=== PATIENT | male | born 1950 | race Caucasian/White ===

== ENCOUNTER 2019-05-22 05:33 | Inpatient (IN) ==
--- NOTE | 2019-04-27 13:26 | PAT Medication Instructions ---
Medication Instructions Date of Service April 27, 2019 Home Medications alprazolam 0.5 mg PO HS furosemide [Lasix] 40 mg PO QAM glimepiride 4 mg PO BID lisinopril 40 mg PO QAM lovastatin 20 mg PO QPM metoprolol succinate 100 mg PO QAM omeprazole 40 mg PO QAM potassium chloride 10 meq PO QAM sitagliptin [Januvia] 100 mg PO QAM umeclidinium-vilanterol [Anoro Ellipta] 1 inh INHALATION QAM amlodipine 5 mg PO QAM verapamil 240 mg PO QAM DO NOT take the morning of surgery furosemide [Lasix] 40 mg PO QAM glimepiride 4 mg PO BID lisinopril 40 mg PO QAM potassium chloride 10 meq PO QAM sitagliptin [Januvia] 100 mg PO QAM Take morning of surgery With a small sip of water, OTHERWISE NOTHING TO EAT OR DRINK AFTER MIDNIGHT: metoprolol succinate 100 mg PO QAM omeprazole 40 mg PO QAM umeclidinium-vilanterol [Anoro Ellipta] 1 inh INHALATION QAM amlodipine 5 mg PO QAM verapamil 240 mg PO QAM Take evening before surgery alprazolam 0.5 mg PO HS glimepiride 4 mg PO BID lovastatin 20 mg PO QPM Other Notes If you have any questions please call us at [phone] or [phone] or [phone] or [phone]
--- NOTE | 2019-05-01 08:35 | Anesthesiology Consultation ---
Date of Service May 01, 2019 Assessment & Plan (1) Encounter for pre-operative examination: - Awaiting surgeon-ordered PCP clearance scheduled 05/03 (Dr. Henry). - Awaiting DSE (scheduled 05/17; [facility]). - Recent hospitalization: 01/2019 ([facility]): presented with generalized weakness. Found to have HR in the 30's in setting of ARNOLDO and acute hyperkalemia. EKG noted junctional escape rhythm. Initially required SC pacing and dobutamine. EP consulted/felt 2/2 hyperkalemia. All symptoms resolved with resolution of hyperkalemia. Kidney function improving per discharge summary (patient with known prior hx CKD). ARNOLDO ? related to hypotension. Tested positive for lyme disease- started on doxy. - Cardiology: 05/03/19: "Feeling well from a cardiovascular perspective." BP 15 . "Moderate perioperative cardiovascular risk.. DSE will be performed for further risk stratification prior to orthopedic surgery. In regards to patient's uncontrolled BP, recommend compliance with hydralazine at least 3 times daily" and limiting sodium intake. T/C carvedilol if BP remains elevated. - Check BSG AM DOS Chart Review Chart Review: Patient seen in Pre Admission Testing Teaching & Discussion Pre-Anesthesia Teaching/Discussion Notes: Instructed NPO after midnight before surgery,except medications with 15 cc of water. Medication instructions provided according to the PAT guidelines. History Surgery Operation Date: 04/12/19 07:00 Proposed Procedures p Left Total Knee Arthroplasty - Lars Feng MD Operation Date: 05/22/19 09:25 Proposed Procedures p Right Total Knee Arthroplasty - Yvon Sullivan DO Height/Weight Height: 5 ft 8 in Weight: 115.5 kg Allergies Allergy/AdvReac Type Severity Reaction Status Date / Time lisinopril AdvReac ARNOLDO, Verified 05/01/19 09:34 hyperkalemia, ARF Medications Home Medications Medication Instructions Recorded Confirmed Last Taken alprazolam 0.5 mg PO HS 11/28/18 04/27/19 Unknown furosemide [Lasix] 40 mg PO QAM 11/28/18 04/27/19 Unknown glimepiride 4 mg PO BID 11/28/18 04/27/19 Unknown lovastatin 20 mg PO QPM 11/28/18 04/27/19 Unknown metoprolol succinate 100 mg PO HS 11/28/18 04/27/19 Unknown omeprazole 40 mg PO QAM 11/28/18 04/27/19 Unknown sitagliptin [Januvia] 100 mg PO QAM 11/28/18 04/27/19 Unknown amlodipine 10 mg PO QAM 11/30/18 04/27/19 Unknown hydralazine 25 mg PO BID 04/27/19 04/27/19 Unknown losartan 50 mg PO QPM 04/27/19 04/27/19 Unknown Past Medical History Medical History CKD (chronic kidney disease) Diabetes mellitus, type 2 NIDDM GERD (gastroesophageal reflux disease) controlled Hyperlipidemia Hypertension Insomnia Obesity Restless leg syndrome Sleep apnea CPAP Exercise / Class Metabolic Activity III < 4 Walking/Shop/Light housework Past Family History Family History Mother Family history of diabetes mellitus Past Surgical History Surgical History History of cataract surgery RT/LEFT History of colonoscopy History of discectomy LUMBAR History of tooth extraction Hx of vasectomy Past Anesthesia History No Hx of Anesthesia Complications and No Family Hx of Anesthesia Complications History of PONV No Hx of PONV and No Hx of Motion Sickness Social History Smoking Status: Former smoker tobacco type: cigarettes Do You Dip or Chew Tobacco: Yes (1/2 - 1/3 can/day- advised NPO) Smoking End Date: Quit 25 years ago Hx Alcohol Use: Yes Alcohol type: beer alcohol intake frequency: a few times a week Hx Substance Use: No substance use type: does not use Review of Systems Reflux controlled. Patient denies chest pain, shortness of breath, cough, wheezing, palpitations. Physical Exam Vital Signs VITALS BP 168/95 (159/77 when checked at home this morning, 05/01 per patient) P 72 TEMP 98.1 SP02 96%RA RESP 16 PHYSICAL Full neck and c-spine range of motion. Full TMJ range of motion. TMD 3.5 finger breaths Mallampati Score 2 Dentition: full dentures on upper, partial dentures on lower Lungs: clear throughout to auscultation Cardiac: regular rate and rhythm, no murmurs noted Spine: normal Carotid arteries: negative bruit Extremities: no edema Trimmed jeffrey Testing Laboratory Results 05/01/19 08:52 05/01/19 08:52 PT 10.3 Seconds (9.0-12.0) 05/01/19 08:52 INR 1.0 (0.9-1.1) 05/01/19 08:52 APTT 28.1 Seconds (21.0-31.0) 05/01/19 08:52 Hemoglobin A1c 6.3 % (4.5-5.6) H 05/01/19 08:52 Urine Color Yellow 05/01/19 08:52 Urine Appearance Clear (Clear) 05/01/19 08:52 Urine pH 6.5 (4.5-7.5) 05/01/19 08:52 Ur Specific Sharon 1.010 (1.000-1.030) 05/01/19 08:52 Urine Protein Trace (Negative) H 05/01/19 08:52 Urine Glucose (UA) Negative (Negative) 05/01/19 08:52 Urine Ketones Negative (Negative) 05/01/19 08:52 Urine Nitrite Negative (Negative) 05/01/19 08:52 Ur Leukocyte Esterase Negative (Negative) 05/01/19 08:52 Urine WBC (Auto) 0 /hpf (0-5) 05/01/19 08:52 Urine RBC (Auto) 0-4 /hpf (0-4) 05/01/19 08:52 U Hyaline Cast (Auto) 1-5 /lpf (0-5) 05/01/19 08:52 U Epithel Cells (Auto) 0-5 /lpf (0-5) 05/01/19 08:52 Urine Bacteria (Auto) Negative (Negative) 05/01/19 08:52 Blood Type O Positive 05/01/19 08:52 Antibody Screen NEGATIVE 05/01/19 08:52 Electrocardiogram Date: 02/17/19 Findings: + NSR @ (75) Chest X-Ray Date: 11/29/18 The heart is top normal for projection and there is atherosclerotic calcification of the thoracic aorta. The mediastinal contour is within normal limits. There are calcification containing hilar nodes. Tiny calcified granulomas are observed. No airspace consolidation or pleural effusion is identified. Echocardiogram Date: 02/15/19 Limited exam. No pericardial effusion seen.
[2019-05-01 11:16] LABS: Appearance Urine Clear (Clear); Bacteria Urine Automated Negative (Negative); Bilirubin Urine Negative (Negative); Blood Urine Negative (Negative); Color Urine Yellow; Epithelial Cell Urine Auto 0-5 /lpf (0-5); Glucose Urine UA Negative (Negative); Ketones Urine Negative (Negative); Leukocyte Esterase Urine Negative (Negative); Nitrite Urine Negative (Negative); Protein Urine Trace (Negative); RBC Urine Automated 0-4 /hpf (0-4); Urobilinogen Urine Negative (Negative); WBC Urine Automated 0 /hpf (0-5); pH Urine 6.5 (4.5-7.5)
[2019-05-01 11:19] LABS: Albumin Level 3.9 gm/dl (3.4-5.0); BUN Creatinine Ratio 14.7 (10-20); Calcium 9.1 mg/dl (8.5-10.1); Creatinine Clr Calc Pharmacy 57.4 ml/min; Est GFR (African American) 53.3; Potassium 4.2 mmol/L (3.5-5.1)
[2019-05-01 11:28] LABS: Partial Thromboplastin Time 28.1 Seconds (21.0-31.0); Prothrombin Time 10.3 Seconds (9.0-12.0)
[2019-05-01 11:32] LABS: Estimated Average Glucose 134 mg/dl; Hemoglobin A1C 6.3 % (4.5-5.6)
[2019-05-01 11:36] LABS: Basophils # (auto) 0.05 K/uL (0-0.2); Basophils % (auto) 0.7 %; Eosinophils # (auto) 0.23 K/uL (0-0.5); Eosinophils % (auto) 3.1 %; Hemoglobin 15.9 g/dL (14.0-18.0); Immature Granulocytes # (auto) 0.02 K/uL (0.00-0.02); Immature Granulocytes % (auto) 0.3 %; Lymphocytes # (auto) 1.13 K/uL (1.2-3.4); Mean Corpuscular Hgb Conc 33.8 g/dL (32-36); Mean Corpuscular Volume 94.6 fL (80-100); Mean Platelet Volume 13.4 fL (7.4-10.4); Monocytes # (auto) 0.66 K/uL (0.11-0.59); Monocytes % (auto) 8.8 %; Neutrophils # (auto) 5.45 K/uL (1.4-6.5); Neutrophils % (auto) 72.1 %; Platelet Count 128 K/uL (130-400); Platelet Estimate Decreased (Normal); RDW Coefficient of Variation 14.3 % (11.5-14.5); RDW Standard Deviation 48.6 fL (36.4-46.3); Red Blood Count 4.97 M/uL (4.7-6.1); White Blood Count 7.54 K/uL (4.8-10.8)
--- NOTE | 2019-05-21 16:42 | History & Physical Report ---
Date of Service May 21, 2019 Assessment & Plan (1) Degenerative joint disease of knee, right: I have indicated the patient for right total knee replacement. The risks, benefits and complications of surgery were explained to the patient which include but not limited to infection, acute blood loss, DVT/PE, injury to nerves, vessels, bone, soft tissue, arthrofibrosis, chronic pain, failure of the prosthesis, knee dislocation, leg length discrepancy, need for additional surgery, cardiac and pulmonary events and . The patient wished to proceed with surgery and informed consent was obtained at this time. We will plan for 81mg ASA BID post-operatively for DVT prophylaxis. Upon discharge the patient will be discharged home with home health services. Appropriate clearances by PCP, cardio were obtained. Patient has known DM and slight bump in Cr pre- operative labs, will monitor, keep well hydrated, repeat labs during the hopsital stay and avoid excessive nephrotoxic medications. History of Present Illness Chief Complaint: Right knee pain/djd Primary Care Provider: Mary Ellen Cotton MD The patient is a 69 year old male who presents with complaints of severe right knee pain and DJD. The patient has failed outpatient conservative treatments to this point which included NSAIDs, IA corticosteroid inj, home exercise/walking program. The patient's pain and limited function have progressed to the point where they severely hinder their activities of daily living and they no longer tolerate exercise programs. They are requesting to proceed with total knee replacement surgery. Allergies Allergy/AdvReac Type Severity Reaction Status Date / Time lisinopril AdvReac ARNOLDO, Verified 05/22/19 06:20 hyperkalemia, ARF Home Medications Home Medications Medication Instructions Recorded Confirmed Type alprazolam 0.5 mg PO HS 11/28/18 05/22/19 History furosemide [Lasix] 40 mg PO QAM 11/28/18 05/22/19 History glimepiride 4 mg PO BID 11/28/18 05/22/19 History lovastatin 20 mg PO QPM 11/28/18 05/22/19 History metoprolol succinate 100 mg PO HS 11/28/18 05/22/19 History omeprazole 40 mg PO QAM 11/28/18 05/22/19 History amlodipine 10 mg PO QAM 11/30/18 05/22/19 History hydralazine 50 mg PO TID 04/27/19 05/22/19 History losartan 50 mg PO QPM 04/27/19 05/22/19 History Januvia 100 mg PO DAILY 05/22/19 05/22/19 History Past Med/Surg History Medical History CKD (chronic kidney disease) Diabetes mellitus, type 2 NIDDM GERD (gastroesophageal reflux disease) controlled Hyperlipidemia Hypertension Insomnia Obesity Restless leg syndrome Sleep apnea CPAP Surgical History History of cataract surgery RT/LEFT History of colonoscopy History of discectomy LUMBAR History of tooth extraction Hx of vasectomy Family History Mother Family history of diabetes mellitus Social History Preferred Language: Serbian Communication Ability: Effective 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: No Beliefs That Will Affect Care: None Current Living Situation: Spouse Other Information That Helps Us Care for You: No Feels Safe at Home: Yes Safety Concerns: Feels Safe At This Time Smoking Status: Former smoker Tobacco Type: cigarettes ; Do You Dip or Chew Tobacco: Yes (1/2 - 1/3 can/day- advised NPO) ; Smoking End Date: Quit 25 years ago ; Second Hand Exposure: No ; Tobacco Cessation Education Requested by Patient: No Hx Alcohol Use: Yes Alcohol type: beer Hx Substance Use: No Review of Systems Review of Systems: All systems reviewed & are unremarkable except as noted in HPI & below Constitutional: as per Subjective / HPI Physical Exam Physical Exam: RLE NVSI +EHL/FHL/TA/GS SILT grossly, +2 DP pulse, compartments soft NT, limited painful ROM knee, 0-115 degrees flexion, +crepitus. Constitutional: WD/WN, vitals as above Eyes: PERRL, conjunctivae normal, anicteric sclerae ENMT: external ear and nose normal, oropharynx normal Neck: trachea midline, no thyromegaly Respiratory: normal respiratory effort, lungs clear to auscultation Cardiovascular: RRR, no murmur, no edema Gastrointestinal (Abdomen): normal bowel sounds, soft, nontender, no hepatosplenomegaly Musculoskeletal: no cyanosis or clubbing, extremities motor strength 5/5 Skin: no rashes, warm and dry Neurologic: patellar DTR's 2+ bilat, sensation intact Psychiatric: A+Ox3, euthymic affect Lymphatic: no cervical or axillary lymphadenopathy Results & Data Diagnostic Findings Multiple views of the knee demonstrates severe tricompartmental DJD with complete loss of the medial joint space. +osteophytes, +sclerosis, +subchondral cysts.
[2019-05-22] MEDS ORDERED: GABAPENTIN 300 MG CAP PO SCH (06:00)
[2019-05-22] MEDS ORDERED: dexAMETHasone 4 MG TAB PO SCH (06:00)
[2019-05-22] MEDS ORDERED: ROPIVACAINE 0.5% HCL/PF 150 MG, BUPIVACAINE 0.5% MPF 30 ML, EPINEPHrine 30MG/30ML (OR U... INFIL SCH (06:00)
[2019-05-22] MEDS ORDERED: FAMOTIDINE 20 MG TAB PO SCH (06:00)
[2019-05-22] MEDS ORDERED: LR 500ML BOLUS, THEN 15ML/HR IV SCH (06:00)
[2019-05-22] MEDS ORDERED: CeleBREX 200 MG CAP PO SCH (06:00)
[2019-05-22] MEDS ORDERED: CEFAZOLIN 2000MG 2,000 MG/15 ML SYR IV SCH (06:00)
[2019-05-22] MEDS ORDERED: ACETAMINOPHEN 500 MG TAB PO SCH (06:00)
[2019-05-22] MEDS ORDERED: METOCLOPRAMIDE HCL 10 MG TABLET PO SCH (06:00)
[2019-05-22] MEDS ORDERED: TRANEXAMIC ACID 1,000 MG **IV Pre-op IV SCH (06:00)
[2019-05-22] MEDS ORDERED: ROPIVACAINE 0.5% 5 MG/ML 30 ML VIAL ONE (06:27)
[2019-05-22] MEDS ORDERED: BUPIVACAINE 0.5 % 5 MG/1 ML PF 10ML VIAL ONE (06:27)
[2019-05-22] MEDS ORDERED: TRANEXAMIC ACID 1,000 MG **IV Intra-op IV SCH (06:30)
--- NOTE | 2019-05-22 07:08 | History & Physical Bridge Note ---
Date of Service May 22, 2019 History & Physical Bridge Note I have examined the patient, reviewed the History & Physical and in the interval since the performance of the History & Physical I have noted the following changes of clinical significance: no changes noted
[2019-05-22] MEDS ORDERED: fentaNYL citrate 100 MCG/2 ML VIAL ONE (08:07)
[2019-05-22] MEDS ORDERED: DEXAMETHASONE SOD INJ 4 MG/ML VIAL ONE (08:07)
[2019-05-22] MEDS ORDERED: MIDAZOLAM HCL 1 MG/ML 2ML VIAL ONE (08:07)
[2019-05-22] MEDS ORDERED: ONDANSETRON INJ 2 MG/ML 2 ML VIAL ONE (08:07)
[2019-05-22] MEDS ORDERED: PROPOFOL IV EMULSION 10 MG/ML 20 ML VIAL IV ONE ×2 (08:07→10:46)
[2019-05-22] MEDS ORDERED: LIDOCAINE HCL 2% 2 ML VIAL/AMP(20MG/ML) INFIL ONE (08:07)
[2019-05-22] MEDS ORDERED: BACITRACIN INJ 50,000 UNIT VIAL ONE (08:11)
[2019-05-22] MEDS ORDERED: ORTHO JOINT ANESTHETIC ONE (08:11)
[2019-05-22] MEDS ORDERED: ePHEDrine sulfate 50 MG/ML AMP IV PRN (08:50)
[2019-05-22] MEDS ORDERED: ATROPINE SULFATE 0.1 MG/ML 10ML SYR IV PRN (08:50)
[2019-05-22] MEDS ORDERED: HYDROmorphone INJ 1 MG/ML SYRINGE IV PRN (08:50)
[2019-05-22] MEDS ORDERED: KETAMINE HCL INJ 50 MG/ML 10 ML VIAL ONE (10:36)
--- NOTE | 2019-05-22 11:09 | Post Operative Brief Note ---
Immediate Post Op Note v1 Date of Surgery May 22, 2019 Pre & Post Diagnosis Operation Date: 04/12/19 07:00 <No data on this case meets the specified criteria> Operation Date: 05/22/19 09:25 Pre-Op Diagnosis: Right Knee Primary Osteoarthritis Post-Op Diagnosis: Right Knee Primary Osteoarthritis Procedure Operation Date: 04/12/19 07:00 <No data on this case meets the specified criteria> Operation Date: 05/22/19 09:25 Actual Procedures p Right Total Knee Arthroplasty(Right) - Yvon Sullivan DO Surgeon Yvon Sullivan DO Gelatin Powder Mixer Yon Farr Estimated Blood Loss 50 Findings Consistent with Post-Op Diagnosis Fluids 1700 cc LR Specimens proximal tibia, distal femur bone fragments Drains Hemovac Drain Anesthesia Type Spinal MAC Complications none Disposition Disposition: Recovery Room Overlapping Procedure I was present for: the critical portions of procedure. I was immediately available: during the entire case. Back up surgeon: was not required during procedure.
--- NOTE | 2019-05-22 11:25 | Operative Report ---
Post Operative Report Pre & Post Diagnosis Operation Date: 04/12/19 07:00 <No data on this case meets the specified criteria> Operation Date: 05/22/19 09:25 Pre-Op Diagnosis: Right Knee Primary Osteoarthritis Post-Op Diagnosis: Right Knee Primary Osteoarthritis Procedure Operation Date: 04/12/19 07:00 <No data on this case meets the specified criteria> Operation Date: 05/22/19 09:25 Actual Procedures p Right Total Knee Arthroplasty(Right) - Yvon Sullivan DO Surgeon Yvon Sullivan DO Esol Teacher Yon Farr Estimated Blood Loss 50 Findings Consistent with Post-Op Diagnosis Fluids 1700 cc LR Specimens Proximal tibia and distal femur bone fragments Anesthesia Type Spinal MAC Complications none Disposition Disposition: Recovery Room Indications The patient is a 69-year-old male presents with long history of severe right knee tricompartmental DJD and failed outpatient conservative treatments including NSAIDs, bracing, injections and home walking/exercise program. The patient's symptoms have progressed to the point where it has been difficult to perform normal activities of daily living. I have indicated the patient for a right total knee arthroplasty, the risks and benefits and complications of the procedure include but are not limited to infection bleeding damage to bone, nerves, vessels, surrounding soft tissue, blood clots, loss of function, leg length discrepancy, dislocation, failure of the components, need for additional surgery and . The patient wished to proceed with surgery at this time and informed consent was obtained. Appropriate clearances were obtained. Description of Procedure COMPONENTS USED: Gauri persona knee system: Femur size 9 standard, Tibia size F tibial articulating surface 10 PS, Patella 35 mm Following induction of spine anesthesia, a tourniquet was applied to the proximal aspect of the thigh and the patient's right leg was prepped and draped in the usual sterile manner. A timeout was performed, patient identified and site hiram confirmed. Appropriate pre-operative IV antibiotics were given. The limb was exsanguinated with an Esmarch bandage and tourniquet was inflated to 300 mmHg. A longitudinal midline incision was made over the anterior knee. Subcutaneous tissue was sharply dissected down to fascia. Electrocautery was used for hemostasis. Next a parapatellar arthrotomy was performed. Patella was everted and the knee was flexed. A Ríos retractor was used to expose the synovium above on the anterior aspect of the femur and removed down to bone. Next, the anterior fat pad was removed to aid in visualization. The medial face of the tibia was cleared of soft tissue first with a Bovie and a thompson elevator. This tissue was retracted posteriorly using a blunt Hohmann. Next, the extra-medullary tibial cutting guide was placed to the anterior aspect of the tibia. The tibia resection level was set taking 2mm from the defective tibial condyle. Resection depth was once again confirmed with nimesh wing. The medial and lateral collateral ligament was protected with two Hohmann retractors . The tibia guide was removed and proximal tibial bone fragment removed utilizing straight osteotome, electrocautery and Mar. Next, the distal femur intramedullary canal was accessed utilizing the step drill. The intramedullary distal femur cutting guide was placed into the canal and pinned into place. The distal femur was cut on the 5 degree +0 setting. Next the cutting guide was removed and the femur was sized. Care was taken to ensure appropriate medical record specialist all rotation and 3 degree holes were drilled. A size 9 4-in-1 cutting block was placed on the distal end of the femur and secured into place with two short headed screws. Two bent Hohmann retractors were placed to protect the medial and lateral collateral ligaments. The oscillating saw was used to cut anterior, posterior, anterior chamfer and posterior chamfer. The four and one cutting block was removed and bone fragments excised. Laminar director housekeeping was placed laterally and the ACL and PCL were removed followed by the medial meniscus and posterior medial osteophytes. Aquamantys was utilized for any posterior medial bleeders and Orthomix injected into the posterior medial capsule. A laminar director housekeeping was then placed in the medial compartment and the lateral meniscus and posterior osteophytes were removed. Aquamantys was utilized for any posterior lateral bleeders and Orthomix injected into the posterior lateral capsule. Next, drop aditi and spacer block were placed with the leg in flexion and extension to assess alignment and flexion/extension gaps. Next, the proximal tibia was assessed and two bent Hohmans were placed medial and lateral to aid in visualization. The appropriate tibia size and rotation was selected and a size F tibial plate was pinned into place with appropriate rotation. Preparation of the tibia was completed utilizing the matching tibial drill and broach. I then turned my attention back to the distal femur in a trial femoral component was impacted into place. Appropriate femoral width was assessed and selected. Next the femur PS box cut guide was placed and cut made with the reciprocal saw and the PS box provisional placed. A trial size 10 PS tibia articular tray was placed and varus-valgus balance assessed in 0 degrees of extension and 30, 60 and 90 degrees of flexion. A final tibial articular surface size 10 PS was chosen. Assess was gained to the patella and caliper utilized to measure width. The patella reamer was utilized and remaining bone removed with oscillating saw. A size 35 mm patella button was selected and the patella pegs drilled. Trial patella button was placed and tracking was assessed. The knee was found to be well balanced, well aligned with excellent patella tracking. The trials were removed and final components were obtained and assembled. The knee was irrigated copiously with sterile saline solution mixed with bacitracin. Access to the proximal tibia was once again obtained utilizing to the Hohmans and the proximal tibia and distal femur were dried with lap sponges. The final components were cemented into place and all excess cement was removed. A trial tibial articular surface was placed while cemented hardened. Knee stability was once again assessed and the final component inserted. A Betadine soak was performed. After 3 minutes, the hip was once more irrigated with copious sterile saline solution with bacitracin. The knee was injected with the remaining Orthomix which includes a combination of Ropivicaine 0.5% 150mg, Bupivicaine 0.5%/Epinephrine 1:200,000 30ml, Toradol 30mg, Dexamethasone 4mg, Ketamine 10mg, Clonidine 100mcg and NSS 30ml solution. The capsulotomy was closed with #1 Vicryl followed by subcutaneous closure with 2-0 Vicryl suture and a 3-0 V-lock suture. Skin closure was performed using Prineo dressing followed by Jg, 4 x 4s and oswaldo wrap. Tourniquet was deflated at 104 minutes. The patient tolerated the procedure well and was taken to the PACU in stable condition. Due to the complex nature of the procedure, the entire surgery was performed with the operational assistance of Yon Farr PA-C. The cafeteria assistant, under direct supervision, was involved in the actual performance of all aspects of the surgical procedure including patient positioning, hemostasis, tissue retraction, instrument management and wound closure. I attest to the content of the Intraoperative Record and any orders documented therein. Any exceptions are noted below.
--- NOTE | 2019-05-22 12:20 | XRay Report ---
XR knee RT 2V routine CLINICAL HISTORY: 69 years-old Male presenting with Surgical Post Op. TECHNIQUE: Frontal and crosstable lateral views of the right knee were obtained. COMPARISON: None. FINDINGS: Postsurgical changes of total right knee arthroplasty with patellar resurfacing. Soft tissue and intr a-articular emphysema indicating recent postsurgical state. No malalignment or periprosthetic fractur e. No abnormal lucency subjacent to the arthroplasty components. IMPRESSION: Expected postsurgical appearance status post total right knee arthroplasty with patellar resurfacing. Electronically signed by: Iván Roberts M.D. 05/22/2019 12:19 PM
[2019-05-22] MEDS ORDERED: bisacodyL 10 MG SUPP PR PRN (12:49)
[2019-05-22] MEDS ORDERED: SODIUM CHLORIDE 0.9% 1000ML 1,000 ML IV SCH (12:49)
[2019-05-22] MEDS ORDERED: METOCLOPRAMIDE HCL INJ 5 MG/ML 2 ML VIAL IV PRN (12:49)
[2019-05-22] MEDS ORDERED: HYDROmorphone INJ 0.5 MG/0.5 ML SYR IV PRN (12:49)
[2019-05-22] MEDS ORDERED: OXYCODONE HCL IR 5 MG TAB (IMMEDIATE RELEASE) PO PRN (12:49)
[2019-05-22] MEDS ORDERED: MAGNESIUM HYDROXIDE SUSP 30 ML UDC PO PRN (12:49)
[2019-05-22] MEDS ORDERED: NALOXONE HCL 0.4 MG/1 ML VIAL/CARP IV PRN (12:49)
[2019-05-22] MEDS ORDERED: ONDANSETRON INJ 2 MG/ML 2 ML VIAL IV PRN (12:49)
[2019-05-22] MEDS ORDERED: PHARMACY GLYCEMIC MGMT CONSULT PRN (13:06)
[2019-05-22] MEDS ORDERED: NovoLIN-N (NPH) PER UNIT CHARGE SQ ONE (13:45)
--- NOTE | 2019-05-22 13:50 | Pharmacy Report ---
Glycemic Control Consultation - Date of Service May 22, 2019 - Scope Scope: Glycemic Pharmacist consulted by Dr Sullivan on 05/22/19 for glycemic control and to write orders per [facility] inpatient glycemic control protocol - Objective Weight: 112.945 kg Accuchecks BSG (last 24hrs): 05/22/19 05/22/19 06:23 12:06 POC Glucose 146 H 181 H HbA1c: Hemoglobin A1c 6.3 % (4.5-5.6) H 05/01/19 08:52 - Recent Pertinent Medications Outpatient Anti-diabetic Regimen: * Glimepiride 4 mg PO BID * Sitagliptin 100 mg PO daily * A1c = 6.3 % (05/01/19) Risk Factors for Insulin Resistance: * Steroids: perioperative dexamethasone 4 mg topically via orthomix + 8 mg PO * Recent Surgery: POD #0 right TKA - Assessment & Plan Assessment & Plan: ASSESSMENT: * Patient is POD #0 s/p right TKA * Perioperatively he received 4 mg of dexamethasone via orthomix infiltration and 8 mg PO @0635 * Postoperative BSG is 181 mg/dL * Pt is maintained on oral antidiabetic agents as an outpatient (well-controlled based on A1c of 6.3%) * Oral agents are not recommended for inpatient use d/t drug interactions, changing PO intake, and difficulty titrating for acute hyper/hypoglycemia. ADA recommends re-initiating outpatient oral agents 1-2 days prior to discharge if/when appropriate if they were held on admission. PLAN FOR INPATIENT GLYCEMIC CONTROL: * Will hold oral agents for admission and utilize SQ basal bolus insulin regimen which is the recommended regimen for inpatient glycemic control. * Will initiate weight based insulin dosing for insulin geno patient and titrate based on BSG trends. * Will reassess tomorrow and consider reinitiation of home PO antidiabetic agents prior to discharge * Basal insulin * NPH 30 units x 1 given to account for steroid-induced hyperglycemia * Bolus insulin * NovoLog per scale ACHS or Q6hrs while NPO * Goal Range: Low 110 mg/dL - High 140 mg/dL * Correction Factor: 20 mg/dL/unit * Nutritional / Prandial insulin per carb ratio of 1 unit per 7 grams CHO consumed * Based on weight/stress of 2 * Please note that the plan above was derived based on current level of insulin resistance and hospital stress. These recommendations are appropriate for inpatient admission only. Plan of care upon discharge will need to be reassessed to avoid potential outpatient hypo/hyperglycemia. Thank you.
[2019-05-22] MEDS ORDERED: INFLUENZA VIRUS QUAD VACCINE 0.5 ML SYR IM ONE (14:00)
[2019-05-22] MEDS ORDERED: INFLUENZA ADMINISTRATION CHARGE ONE (14:00)
[2019-05-22] MEDS: ACETAMINOPHEN 500 MG TAB PO SCH ×2 (14:23→22:13)
[2019-05-22] MEDS: INSULIN ASPART 100 UNITS/ML 3 ML PEN SC SCH ×3 (14:24→20:51)
--- NOTE | 2019-05-22 16:26 | Anesthesiology Progress Note ---
Date of Service May 22, 2019 Anesthesia Post Procedure Vital Signs Vital Signs: Temp Pulse Pulse Resp BP Pulse Ox 05/22/19 15:41 36.4 C L 59 L 16 129/73 96 05/22/19 14:53 61 16 147/72 H 99 05/22/19 13:52 62 16 127/73 97 05/22/19 13:15 36.4 C L 70 18 123/74 94 05/22/19 12:45 36.5 C 62 15 118/72 97 05/22/19 12:35 67 12 120/61 93 05/22/19 12:25 36.3 C L 60 16 112/61 92 05/22/19 12:15 72 17 119/68 96 05/22/19 12:05 68 13 117/61 97 05/22/19 11:55 62 17 108/63 97 05/22/19 11:49 36.4 C L 72 15 95/63 L 98 05/22/19 06:24 36.6 C 72 22 181/94 H 94 Transfer of Care Handoff Completed per policy Notes Mental Status: alert / awake / arousable Patient Amnestic to Procedure: Yes Nausea / Vomiting: adequately controlled Pain: adequately controlled Airway Patency, RR, SpO2: stable & adequate BP & HR: stable & adequate Hydration State: stable & adequate Anesthetic Complications: no major complications apparent and Pt Satisfied with anesthetic care
--- NOTE | 2019-05-22 17:34 | Orthopedic Progress Note ---
Date of Service May 22, 2019 Assessment & Plan (1) Degenerative joint disease of knee, right: s/p R TKA -ancef x 24 -DVT ppx: SCDs, TEDs, ASA 81mg BID -WBAT RLE -PT/OT -PO XR demonstrates a well aligned well fixed prosthesis without fracture/dislocation -am labs -DC planning Subjective Post Operative Progress Note Patient seen sitting up in bed, comfortable, denies complaints, pain well controlled, no acute issues. Review of Systems Review of Systems: All systems reviewed & are unremarkable except as noted in HPI & below Constitutional: as per Subjective / HPI Physical Exam Physical Exam: RLE NVSI +EHL/FHL/TA/GS SILT grossly, +2 DP pulse, compartments soft NT, dressing cdi. Constitutional: WD/WN, vitals as above Results & Data Vital Signs (Past 12 Hours) Vital Signs Temp Pulse Pulse Resp BP Pulse Ox 05/22/19 15:41 36.4 C L 59 L 16 129/73 96 05/22/19 14:53 61 16 147/72 H 99 05/22/19 13:52 62 16 127/73 97 05/22/19 13:15 36.4 C L 70 18 123/74 94 05/22/19 12:45 36.5 C 62 15 118/72 97 05/22/19 12:35 67 12 120/61 93 05/22/19 12:25 36.3 C L 60 16 112/61 92 05/22/19 12:15 72 17 119/68 96 05/22/19 12:05 68 13 117/61 97 05/22/19 11:55 62 17 108/63 97 05/22/19 11:49 36.4 C L 72 15 95/63 L 98 05/22/19 06:24 36.6 C 72 22 181/94 H 94
[2019-05-22] MEDS: CEFAZOLIN 2000MG 2,000 MG/15 ML SYR IV SCH (17:48)
[2019-05-22] MEDS: LOVASTATIN 20 MG TAB PO SCH (20:38)
[2019-05-22] MEDS: LOSARTAN POTASSIUM 50 MG TAB PO SCH (20:38)
[2019-05-22] MEDS: SENNA 8.6 MG TAB PO SCH (20:40)
[2019-05-22] MEDS: METOPROLOL SUCC 50MG EXT REL TAB PO SCH (20:40)
[2019-05-22] MEDS: ALPRAZolam 0.5 MG TABLET PO SCH (20:42)
[2019-05-22] MEDS: DOCUSATE SODIUM 100 MG CAP PO SCH (20:42)
[2019-05-22] MEDS ORDERED: GLIMEPIRIDE 2 MG TAB PO SCH (21:00)
[2019-05-23] MEDS: CEFAZOLIN 2000MG 2,000 MG/15 ML SYR IV SCH (02:06)
[2019-05-23] MEDS: ACETAMINOPHEN 500 MG TAB PO SCH ×3 (05:22→21:38)
[2019-05-23 06:53] LABS: BUN Creatinine Ratio 15.5 (10-20); Creatinine Clr Calc Pharmacy 50.2 ml/min; Est GFR (Non-African American) 39.7; Hematocrit (blood only) 43.2 % (42-52); Hemoglobin 14.2 g/dL (14.0-18.0); Mean Corpuscular Hemoglobin 31.3 pg (25-34); Mean Corpuscular Hgb Conc 32.9 g/dL (32-36); Mean Corpuscular Volume 95.4 fL (80-100); Mean Platelet Volume 13.4 fL (7.4-10.4); Platelet Count 135 K/uL (130-400); Potassium 4.7 mmol/L (3.5-5.1); RDW Coefficient of Variation 13.7 % (11.5-14.5); RDW Standard Deviation 47.3 fL (36.4-46.3); Red Blood Count 4.53 M/uL (4.7-6.1); White Blood Count 17.43 K/uL (4.8-10.8)
[2019-05-23 06:56] LABS: Platelet Estimate Normal (Normal)
[2019-05-23] MEDS: FUROSEMIDE 40 MG TAB PO SCH (08:06)
[2019-05-23] MEDS: MULTIVITAMIN TAB PO SCH (08:06)
[2019-05-23] MEDS: AMLODIPINE BESYLATE 5 MG TAB PO SCH (08:06)
[2019-05-23] MEDS: ASPIRIN 81 MG ECTAB PO SCH ×2 (08:06→20:08)
[2019-05-23] MEDS: PANTOprazole 40 MG TAB PO SCH (08:07)
[2019-05-23] MEDS: DOCUSATE SODIUM 100 MG CAP PO SCH ×2 (08:09→20:14)
[2019-05-23] MEDS: SODIUM CHLORIDE 0.9% 1000ML 1,000 ML IV SCH ×2 (08:14→20:11)
[2019-05-23] MEDS: INSULIN ASPART 100 UNITS/ML 3 ML PEN SC SCH ×4 (08:31→21:36)
--- NOTE | 2019-05-23 08:53 | Anesthesiology Progress Note ---
Date of Service May 23, 2019 Anesthesia Post Procedure Vital Signs Vital Signs: Temp Pulse Pulse Resp BP Pulse Ox 05/23/19 03:47 36.5 C 74 17 142/65 H 94 05/22/19 23:45 36.4 C L 61 17 143/73 H 96 05/22/19 20:35 53 L 144/76 H 05/22/19 19:50 36.5 C 60 17 150/77 H 95 05/22/19 15:41 36.4 C L 59 L 16 129/73 96 05/22/19 14:53 61 16 147/72 H 99 05/22/19 13:52 62 16 127/73 97 05/22/19 13:15 36.4 C L 70 18 123/74 94 05/22/19 12:45 36.5 C 62 15 118/72 97 05/22/19 12:35 67 12 120/61 93 05/22/19 12:25 36.3 C L 60 16 112/61 92 05/22/19 12:15 72 17 119/68 96 05/22/19 12:05 68 13 117/61 97 05/22/19 11:55 62 17 108/63 97 05/22/19 11:49 36.4 C L 72 15 95/63 L 98 Notes Mental Status: alert / awake / arousable and participated in evaluation Patient Amnestic to Procedure: Yes Nausea / Vomiting: adequately controlled Pain: adequately controlled Airway Patency, RR, SpO2: stable & adequate BP & HR: stable & adequate Hydration State: stable & adequate Neuraxial Anesthesia: was administered and sensory block resolved Anesthetic Complications: no major complications apparent and Pt Satisfied with anesthetic care
[2019-05-23] MEDS ORDERED: JANUVIA 100 MG PO SCH (09:00)
[2019-05-23] MEDS ORDERED: LANTUS PER UNIT CHARGE SQ ONE (09:15)
--- NOTE | 2019-05-23 09:35 | Orthopedic Progress Note ---
Date of Service May 23, 2019 Assessment & Plan (1) Degenerative joint disease of knee, right: s/p R TKA POD#1 -ancef x 24 -DVT ppx: SCDs, TEDs, ASA 81mg BID -WBAT RLE -PT/OT -PO XR demonstrates a well aligned well fixed prosthesis without fracture/dislocation -am labs - hgb 14.2, Cr 1.74, elevated from baseline 1.5 at admission, will give IV fluids, continue to monitor -DC planning Subjective Post Operative Progress Note Patient seen sitting up in bed, comfortable, denies complaints, pain well controlled, no acute issues. Denies F/C/N/V/SOP/CP Review of Systems Review of Systems: All systems reviewed & are unremarkable except as noted in HPI & below Constitutional: as per Subjective / HPI Physical Exam Physical Exam: RLE NVSI +EHL/FHL/TA/GS SILT grossly, +2 DP pulse, compartments soft NT, dressing cdi. Constitutional: WD/WN, vitals as above Results & Data Vital Signs (Past 12 Hours) Vital Signs Temp Pulse Resp BP Pulse Ox 05/23/19 08:57 36.6 C 61 18 142/70 H 93 05/23/19 03:47 36.5 C 74 17 142/65 H 94 05/22/19 23:45 36.4 C L 61 17 143/73 H 96 Laboratory Results 05/23/19 05/23/19 05/23/19 Range/Units 08:22 06:08 06:08 WBC 17.43 H (4.8-10.8) K/uL RBC 4.53 L (4.7-6.1) M/uL Hgb 14.2 (14.0-18.0) g/dL Hct 43.2 (42-52) % MCV 95.4 (80-100) fL MCH 31.3 (25-34) pg MCHC 32.9 (32-36) g/dL RDW Std Deviation 47.3 H (36.4-46.3) fL RDW Coeff of Arvin 13.7 (11.5-14.5) % Plt Count 135 (130-400) K/uL MPV 13.4 H (7.4-10.4) fL Platelet Estimate Normal (Normal) Sodium 137 (136-145) mmol/L Potassium 4.7 (3.5-5.1) mmol/L Chloride 103 (98-107) mmol/L Carbon Dioxide 29 (21-32) mmol/L Anion Gap 5.0 (3-11) BUN 27 H (7-18) mg/dl Creatinine 1.74 H (0.6-1.4) mg/dl Est Cr Clr Drug Dosing 50.2 ml/min Est GFR ( Amer) 46.0 Est GFR (Non-Af Amer) 39.7 BUN/Creatinine Ratio 15.5 (10-20) Glucose 147 H (70-99) mg/dl POC Glucose 182 H (70-99) Calcium 8.0 L (8.5-10.1) mg/dl 05/22/19 05/22/19 05/22/19 Range/Units 20:48 17:13 12:06 WBC (4.8-10.8) K/uL RBC (4.7-6.1) M/uL Hgb (14.0-18.0) g/dL Hct (42-52) % MCV (80-100) fL MCH (25-34) pg MCHC (32-36) g/dL RDW Std Deviation (36.4-46.3) fL RDW Coeff of Arvin (11.5-14.5) % Plt Count (130-400) K/uL MPV (7.4-10.4) fL Platelet Estimate (Normal) Sodium (136-145) mmol/L Potassium (3.5-5.1) mmol/L Chloride (98-107) mmol/L Carbon Dioxide (21-32) mmol/L Anion Gap (3-11) BUN (7-18) mg/dl Creatinine (0.6-1.4) mg/dl Est Cr Clr Drug Dosing ml/min Est GFR ( Amer) Est GFR (Non-Af Amer) BUN/Creatinine Ratio (10-20) Glucose (70-99) mg/dl POC Glucose 163 H 199 H 181 H (70-99) Calcium (8.5-10.1) mg/dl
--- NOTE | 2019-05-23 10:53 | Pharmacy Report ---
Pharmacy Glycemic Short Note 2 - Date of Service May 23, 2019 - Glycemic Short BSG Results (Last 24 hours): 05/22/19 05/22/19 05/22/19 12:06 17:13 20:48 Glucose POC Glucose 181 H 199 H 163 H 05/23/19 05/23/19 06:08 08:22 Glucose 147 H POC Glucose 182 H OUTPATIENT ANTIDIABETIC REGIMEN: * Glimepiride 4 mg PO BID * Sitagliptin 100 mg PO daily * A1c = 6.3 % (05/01/19) ASSESSMENT: * Patient is POD#1 s/p right TKA * Patient given 30 units of NPH yesterday postoperatively following administration of perioperative dexamethasone 4 mg via infiltration and 8 mg PO * BSGs yesterday ranging 146-199 mg/dL * Fasting BSG this AM of 182 mg/dL * Slight increase in SCr noted today (1.74 mg/dL up from 1.54 mg/dL) * No postoperative steroids administered PLAN FOR INPATIENT GLYCEMIC CONTROL: * Hold outpatient oral diabetes medications - will continue SC basal/bolus insulin * Basal insulin * Lantus 15 units SQ this AM * Will utilize Lantus scale for tonight (0 units for BSG less than 100 mg/dL, 8 units for BSG 100-160 mg/dL, and 15 units for BSG greater than 160 mg/dL) - this would be based on adjusted body weight stress of 2 and 3 respectively for 8 and 15 additional units this evening. * Bolus insulin - will loosen CF and CR based on rapid correction of BSGs from breakfast to lunch * NovoLog per scale ACHS or Q6hrs while NPO * Goal Range: Low 110 mg/dL - High 140 mg/dL * Correction Factor: 25 mg/dL/unit * Nutritional / Prandial insulin per carb ratio of 1 unit per 9 grams CHO consumed PLAN FOR DISCHARGE: * A1c of 6.3% (05/01/19) suggests good glycemic control with current home regimen. Reasonable to continue home regimen of glimepiride 4 mg PO BID and sitagliptin 100 mg PO daily.
[2019-05-23] MEDS ORDERED: HydrALAZINE HCL 20 MG/ML VIAL IV ONE (18:14)
[2019-05-23] MEDS: METOPROLOL SUCC 50MG EXT REL TAB PO SCH (20:07)
[2019-05-23] MEDS: LOVASTATIN 20 MG TAB PO SCH (20:08)
[2019-05-23] MEDS: SENNA 8.6 MG TAB PO SCH (20:09)
--- NOTE | 2019-05-23 20:19 | Hospitalist Consultation ---
Date of Consultation May 23, 2019 Assessment & Plan (1) ARF (acute renal failure): Cr 11/29/18 WNL at 1.3 In January, pt and inform me that he had what sounds like multi-system organ failure thought to be related to verapamil use On d/c from [facility], he was told to stop verapamil and lisinopril Several weeks ago pt was started on losartan for elevated BP Cr 05/01/19 was elevated at 1.5 Cr on 05/22 it was further elevated at 1.7 Ortho has ordered IVF and c/s placed Plan to hold losartan tonight and monitor Pt is on glimepiride usually, however this is being held due to post-op status--may need t/c d/c of this medication as well Repeat cr in AM (2) HTN (hypertension): Labile Gradually increasing throughout the day despite daytime meds Missed HS metoprolol dosing last night due to parameters, so has been untx from that standpoint today Give metoprolol now and monitor Also due for hydralazine Holding losartan as noted above Possibly and element of nicotine withdrawal leading to increased BP as well--nicotine patch Lengthy discussion with pt and regarding his current medication list. Ideally, would increase doses of existing medications before adding new ones Pain control may have been an issue pre-op and hopefully this will help with his BP Chewing tobacco nicotine may also be playing a role. Advised pt and of this Would advise d/c losartan moving forward given renal issues--holding tonight to monitor BP without although this may not be a true example given post-op status Advised that pt should continue home BP monitoring on d/c (3) DM type 2 (diabetes mellitus, type 2): SSI PRN as per ortho Would consider changing glimepiride given renal issues if they are not corrected with change in BP medications A1c is 8.0 suggesting control could be better (4) Degenerative joint disease of knee, right: As per ortho s/p R TKA on 05/22 (5) GUS (obstructive sleep apnea): Uses a CPAP HS with a NC, they did not know to bring it to the hospital Using NC 2L HS for now (6) Tobacco use disorder: Advised that chewing tobacco is far more potent in terms of its effects on BP and difficulty managing BP Nicotine patch Advised to discuss wellbutrin or chantix as outpt (7) Hyperlipidemia: continue home meds (8) GERD (gastroesophageal reflux disease): continue home meds (9) DVT prophylaxis: As per ortho History of Present Illness Attending Physician: Yvon Sullivan DO History of Present Illness 69 y/o M who was admitted on 05/22 s/p R TKA with Dr. Gonzalez. Pt was doing well post-op yesterday, however today he has had very high BP that continues to increase over the course of the day. Tolerating PO without issue. Pt denies fever, SOB, chest pain, abd pain, n/v/c/d, LE swelling. Pt has had a very active year medically. There has been a lot of difficulty managing his BP. His former PCP started him on verapamil, which per his , caused his heart to "shut down". He was life flighted to [facility] in January and nearly . She tells me his kidneys shut down as part of this. He was advised to stop this medication, as well as lisinopril, on d/c from [facility]. Pt states that he felt "the best I have felt in a long time" at d/c. At that time they changed PCPs. Pt had return of BP issues and his current PCP started him on losartan. He states that since that time he has felt generally unwell. He feels shaky and his voice is not steady and he just feels unwell. He cannot describe it further. Pt was seen by Dr. Everett for a pre-op cardiac eval last week. Dr. Everett questioned the number of HTN medications pt was taking and advised for increasing hydralazine to TID. Pt states he feels ok without using chew while hospitalized, but that "it will be the first thing I do when I leave here". Per med rec, pt was unable to take his metoprolol 100mg HS last night due to hold parameters. He received his other medications last night and today. Allergies Allergy/AdvReac Type Severity Reaction Status Date / Time lisinopril AdvReac ARNOLDO, Verified 05/22/19 06:20 hyperkalemia, ARF Home Medications Home Medications Medication Instructions Recorded Confirmed Type alprazolam 0.5 mg PO HS 11/28/18 05/22/19 History furosemide [Lasix] 40 mg PO QAM 11/28/18 05/22/19 History glimepiride 4 mg PO BID 11/28/18 05/22/19 History lovastatin 20 mg PO QPM 11/28/18 05/22/19 History metoprolol succinate 100 mg PO HS 11/28/18 05/22/19 History omeprazole 40 mg PO QAM 11/28/18 05/22/19 History amlodipine 10 mg PO QAM 11/30/18 05/22/19 History hydralazine 50 mg PO TID 04/27/19 05/22/19 History losartan 50 mg PO QPM 04/27/19 05/22/19 History Januvia 100 mg PO DAILY 05/22/19 05/22/19 History acetaminophen [Tylenol Extra 1,000 mg PO Q8 PRN #90 tab 05/22/19 Rx Strength] aspirin [Ecotrin Low Strength] 81 mg PO BID #56 tab 05/22/19 Rx oxycodone 5 mg PO Q6H PRN #30 tab MDD 6 tabs 05/22/19 Rx sennosides [Senokot] 17.2 mg PO HS PRN #28 tab 05/22/19 Rx Patient History Medical History CKD (chronic kidney disease) Diabetes mellitus, type 2 NIDDM GERD (gastroesophageal reflux disease) controlled Hyperlipidemia Hypertension Insomnia Obesity Restless leg syndrome Sleep apnea CPAP Surgical History History of cataract surgery RT/LEFT History of colonoscopy History of discectomy LUMBAR History of tooth extraction Hx of vasectomy Family History Mother Family history of diabetes mellitus Social History Preferred Language: Indian Communication Ability: Effective Pelota Maker Required: No Beliefs That Will Affect Care: None marital status: Current Living Situation: Spouse Other Information That Helps Us Care for You: No Feels Safe at Home: Yes Safety Concerns: Feels Safe At This Time Smoking Status: Former smoker Tobacco Type: cigarettes ; Do You Dip or Chew Tobacco: Yes (1/2 - 1/3 can/day- advised NPO) ; Smoking End Date: Quit 25 years ago ; Second Hand Exposure: No ; Tobacco Cessation Education Requested by Heather ient: No Hx Alcohol Use: Yes Alcohol type: beer Hx Substance Use: No Review of Systems Review of Systems: Pertinent positives and negatives reviewed in HPI--all others negative Physical Exam Constitutional: WD/WN, vitals as above Eyes: normal visual mccarthy by confrontation and + anicteric sclerae Neck: normal visual inspection and trachea midline Respiratory: normal respiratory effort, lungs clear to auscultation Cardiovascular: Rate/Rhythm: regular rate and regular rhythm Gastrointestinal (Abdomen): Inspection/Auscultation: abdomen not distended Percussion/Palpation: abdomen soft; abdomen nontender Musculoskeletal: Head/Neck/Chest: normocephalic and head atraumatic negative for edema, peripheral pulses intact Skin: no rashes, warm and dry Neurologic: awake; not confused Speech / Cognition: + abnormal speech (voice is tremulous and with slight stutter) Psychiatric: A+Ox3, euthymic affect Results & Data Vital Signs (Past 12 Hours) Vital Signs Temp Pulse Pulse Resp BP BP Pulse Ox 05/23/19 19:53 63 155/74 H 05/23/19 18:45 168/73 H 05/23/19 17:59 36.4 C L 62 192/75 H 96 05/23/19 15:09 36.6 C 54 L 18 164/72 H 96 05/23/19 10:34 36.6 C 67 61 18 142/70 H 93 05/23/19 08:57 36.6 C 61 18 142/70 H 93 PG Care Time/CCT Total # of Minutes Spent Total Time Spent with Patient: Total time spent is greater than 50% in coordination of care (as documented) at patient's floor/unit and/or counseling patient:
[2019-05-23] MEDS ORDERED: NICOTINE 14 MG/24 HR PATCH TD SCH (20:30)
[2019-05-23] MEDS ORDERED: LANTUS PER UNIT CHARGE SQ SCH (21:00)
[2019-05-23] MEDS: ALPRAZolam 0.5 MG TABLET PO SCH (21:33)
[2019-05-23] MEDS ORDERED: GLUCAGON FOR INJ 1 MG VIAL IM PRN (22:30)
[2019-05-23] MEDS ORDERED: GLUCOSE 10 TABS/TUBE PO PRN (22:30)
[2019-05-23] MEDS ORDERED: CARBOHYDRATES FOR HYPOGLYCEMIA PO PRN (22:30)
[2019-05-23] MEDS ORDERED: GLUCOSE 40% GEL 15 GM TUBE PO PRN (22:30)
[2019-05-23] MEDS ORDERED: DEXTROSE 50% 50 ML SYRINGE IV PRN (22:30)
[2019-05-23] MEDS: LOSARTAN POTASSIUM 50 MG TAB PO SCH (22:40)
[2019-05-24] MEDS: ACETAMINOPHEN 500 MG TAB PO SCH (05:51)
[2019-05-24 06:55] LABS: Hematocrit (blood only) 41.5 % (42-52); Hemoglobin 13.5 g/dL (14.0-18.0); Mean Corpuscular Hemoglobin 31.3 pg (25-34); Mean Corpuscular Hgb Conc 32.5 g/dL (32-36); Mean Corpuscular Volume 96.3 fL (80-100); Mean Platelet Volume 12.9 fL (7.4-10.4); Platelet Count 118 K/uL (130-400); Platelet Estimate Decreased (Normal); RDW Coefficient of Variation 14.2 % (11.5-14.5); RDW Standard Deviation 50.3 fL (36.4-46.3); Red Blood Count 4.31 M/uL (4.7-6.1); White Blood Count 9.24 K/uL (4.8-10.8)
[2019-05-24 06:56] LABS: BUN Creatinine Ratio 15.7 (10-20); Calcium 7.8 mg/dl (8.5-10.1); Est GFR (African American) 51.3; Est GFR (Non-African American) 44.3; Potassium 4.1 mmol/L (3.5-5.1)
[2019-05-24] MEDS: MULTIVITAMIN TAB PO SCH (08:24)
[2019-05-24] MEDS: AMLODIPINE BESYLATE 5 MG TAB PO SCH (08:24)
[2019-05-24] MEDS: FUROSEMIDE 40 MG TAB PO SCH (08:24)
[2019-05-24] MEDS: ASPIRIN 81 MG ECTAB PO SCH (08:25)
[2019-05-24] MEDS: PANTOprazole 40 MG TAB PO SCH (08:25)
[2019-05-24] MEDS: DOCUSATE SODIUM 100 MG CAP PO SCH (08:26)
[2019-05-24] MEDS: INSULIN ASPART 100 UNITS/ML 3 ML PEN SC SCH (08:28)
[2019-05-24] MEDS: SODIUM CHLORIDE 0.9% 1000ML 1,000 ML IV SCH (08:34)
[2019-05-24] MEDS ORDERED: SITAGLIPTIN PHOSPHATE 100 MG TAB PO SCH (09:00)
--- NOTE | 2019-05-24 11:33 | Orthopedic Progress Note ---
Date of Service May 24, 2019 Assessment & Plan (1) Degenerative joint disease of knee, right: s/p R TKA POD#2 -ARF -creatinine as noted above dropping to 1.59. Question of multiple medications changes with hypertensive medications and diabetic med. Await final recommendations per medicine service. Plan for discharge home today if okay with medicine service. -DVT ppx: SCDs, TEDs, ASA 81mg BID -WBAT RLE -PT/OT -am labs - hgb 13.5, Cr 1.59 -DC planning -Home with home health services today if okay with medicine service. Supervising Physician Co-Signing Physician Notes The patient was seen and examined this morning, agree with above assessment and plan. For ARNOLDO which has resolved to baseline admission lab level will obtained repeat BMP 4 days post discharge and request that patient follow-up with PCP within 1 week. Subjective Postop day 2 status post right total knee arthroplasty. ARF Patient is currently lying in bed. No complaints. Patient states that Dr. Parish saw him this morning. Planning for possible discharge. He denies any shortness of breath, chest pain, lightheadedness. Pain is controlled. Noted that his creatinine has come down to 1.59 from 1.74. No new complaints. Review of Systems Review of Systems: All systems reviewed & are unremarkable except as noted in HPI & below Constitutional: as per Subjective / HPI Physical Exam Physical Exam: Incision is clean, dry, intact. Mild swelling noted normal for surgery. Calves are soft nontender. Neurovascular intact. Toes are mobile. RLE NVSI +EHL/FHL/TA/GS SILT grossly, +2 DP pulse, compartments soft NT, dressing cdi. Constitutional: WD/WN, vitals as above Results & Data Vital Signs (Past 12 Hours) Vital Signs Temp Pulse Resp BP BP Pulse Ox 05/24/19 07:39 36.6 C 58 L 16 96 05/24/19 05:54 140/80 05/23/19 23:40 36.8 C 61 16 142/82 H 98 Laboratory Results Laboratory Results WBC 9.24 K/uL (4.8-10.8) 05/24/19 06:10 RBC 4.31 M/uL (4.7-6.1) L 05/24/19 06:10 Hgb 13.5 g/dL (14.0-18.0) L 05/24/19 06:10 Hct 41.5 % (42-52) L 05/24/19 06:10 MCV 96.3 fL (80-100) 05/24/19 06:10 MCH 31.3 pg (25-34) 05/24/19 06:10 MCHC 32.5 g/dL (32-36) 05/24/19 06:10 RDW Std Deviation 50.3 fL (36.4-46.3) H 05/24/19 06:10 RDW Coeff of Arvin 14.2 % (11.5-14.5) 05/24/19 06:10 Plt Count 118 K/uL (130-400) L 05/24/19 06:10 MPV 12.9 fL (7.4-10.4) H 05/24/19 06:10 Immature Gran % (Auto) 0.3 % 05/01/19 08:52 Neut % (Auto) 72.1 % 05/01/19 08:52 Lymph % (Auto) 15.0 % 05/01/19 08:52 Wake % (Auto) 8.8 % 05/01/19 08:52 Eos % (Auto) 3.1 % 05/01/19 08:52 Baso % (Auto) 0.7 % 05/01/19 08:52 Immature Gran # (Auto) 0.02 K/uL (0.00-0.02) 05/01/19 08:52 Neut # (Auto) 5.45 K/uL (1.4-6.5) 05/01/19 08:52 Lymph # (Auto) 1.13 K/uL (1.2-3.4) L 05/01/19 08:52 Wake # (Auto) 0.66 K/uL (0.11-0.59) H 05/01/19 08:52 Eos # (Auto) 0.23 K/uL (0-0.5) 05/01/19 08:52 Baso # (Auto) 0.05 K/uL (0-0.2) 05/01/19 08:52 Platelet Estimate Decreased (Normal) L 05/24/19 06:10 PT 10.3 Seconds (9.0-12.0) 05/01/19 08:52 INR 1.0 (0.9-1.1) 05/01/19 08:52 APTT 28.1 Seconds (21.0-31.0) 05/01/19 08:52 PTT Ratio 1.0 05/01/19 08:52 Sodium 141 mmol/L (136-145) 05/24/19 06:10 Potassium 4.1 mmol/L (3.5-5.1) 05/24/19 06:10 Chloride 109 mmol/L (98-107) H 05/24/19 06:10 Carbon Dioxide 28 mmol/L (21-32) 05/24/19 06:10 Anion Gap 4.0 (3-11) 05/24/19 06:10 BUN 25 mg/dl (7-18) H 05/24/19 06:10 Creatinine 1.59 mg/dl (0.6-1.4) H 05/24/19 06:10 Est Cr Clr Drug Dosing 55.0 ml/min 05/24/19 06:10 Est GFR ( Amer) 51.3 05/24/19 06:10 Est GFR (Non-Af Amer) 44.3 05/24/19 06:10 BUN/Creatinine Ratio 15.7 (10-20) 05/24/19 06:10 Glucose 108 mg/dl (70-99) H 05/24/19 06:10 POC Glucose 100 (70-99) H 05/24/19 07:42 Estimat Average Glucose 134 mg/dl 05/01/19 08:52 Hemoglobin A1c 6.3 % (4.5-5.6) H 05/01/19 08:52 Calcium 7.8 mg/dl (8.5-10.1) L 05/24/19 06:10 Albumin 3.9 gm/dl (3.4-5.0) 05/01/19 08:52 Urine Color Yellow 05/01/19 08:52 Urine Appearance Clear (Clear) 05/01/19 08:52 Urine pH 6.5 (4.5-7.5) 05/01/19 08:52 Ur Specific [place]land 1.010 (1.000-1.030) 05/01/19 08:52 Urine Protein Trace (Negative) H 05/01/19 08:52 Urine Glucose (UA) Negative (Negative) 05/01/19 08:52 Urine Ketones Negative (Negative) 05/01/19 08:52 Urine Blood Negative (Negative) 05/01/19 08:52 Urine Nitrite Negative (Negative) 05/01/19 08:52 Urine Bilirubin Negative (Negative) 05/01/19 08:52 Urine Urobilinogen Negative (Negative) 05/01/19 08:52 Ur Leukocyte Esterase Negative (Negative) 05/01/19 08:52 Urine WBC (Auto) 0 /hpf (0-5) 05/01/19 08:52 Urine RBC (Auto) 0-4 /hpf (0-4) 05/01/19 08:52 U Hyaline Cast (Auto) 1-5 /lpf (0-5) 05/01/19 08:52 U Epithel Cells (Auto) 0-5 /lpf (0-5) 05/01/19 08:52 Urine Bacteria (Auto) Negative (Negative) 05/01/19 08:52 Blood Type O Positive 05/01/19 08:52 Antibody Screen NEGATIVE 05/01/19 08:52
--- NOTE | 2019-05-27 11:40 | Discharge Summary ---
Date of Service May 27, 2019 Admission HPI Per Admitting Provider The patient is a 69 year old male who presents with complaints of severe right knee pain and DJD. The patient has failed outpatient conservative treatments to this point which included NSAIDs, IA corticosteroid inj, home exercise/walking program. The patient's pain and limited function have progressed to the point where they severely hinder their activities of daily living and they no longer tolerate exercise programs. They are requesting to proceed with total knee replacement surgery. Principal Diagnosis Right total knee replacement Discharge Exam RLE NVSI +EHL/FHL/TA/GS SILT grossly, +2 DP pulse, compartments soft NT, dressing cdi. Constitutional WD/WN, vitals as above Discharge Data Allergies Allergy/AdvReac Type Severity Reaction Status Date / Time lisinopril AdvReac ARNOLDO, Verified 05/22/19 06:20 hyperkalemia, ARF Consultations 05/22/19 12:49 Consult Case Management - Discharge Planning Routine 05/23/19 18:15 Consult Hospitalist Routine Procedures Performed Operation Date: 04/12/19 07:00 <No data on this case meets the specified criteria> Operation Date: 05/22/19 09:25 Actual Procedures p Right Total Knee Arthroplasty(Right) - Yvon Sullivan DO Ordered Studies 05/22/19 05:00 US - OR guided needle placemen Routine Hospital Course (1) Degenerative joint disease of knee, right: The patient is a 69 -year-old male who presents with long standing history of severe right knee DJD and failed outpatient conservative treatments including NSAIDs, bracing, injections and home walking/exercise program. The patient's symptoms have progressed to the point where it has been difficult to perform even normal activities of daily living. I indicated the patient for a right total knee arthroplasty, the risks, benefits and complications of the procedure include but not limited to infection, bleeding, damage to bone, nerves, vessels, surrounding soft tissue, may develop blood clots, loss of function, leg length discrepancy, dislocation, failure of the components, loosening of the components, the need for additional surgery and . The patient wished to proceed with surgery at this time and informed consent was obtained. Hospital Course: On 05/22/19 the patient was taken to the operating room, adequate anesthesia administered and underwent a right total knee arthroplasty. The patient tolerated the procedure well and was taken to the PACU in stable condition. Post-operatively the patient was started on a DVT ppx medication and given appropriate IV antibiotics. Consults were placed to medical hospitalist, physical therapy, occupational therapy and case management. On POD#1, the patient did well overnight and their pain was well controlled. Labs were drawn and the Hgb was 14.2, Cr elevated slighty to 1.72. Patient has known CKD. IV fluids started and labs monitored closely with input from the [facility] team. The patient progressed well with PT. Dressings were changed at this time and the incision was clean, dry and intact. The patient had an episode of elevated BP 192/75. 5mg IV hydralazine was provided and BP improved, remained at patients baseline 140's/80's. On POD#2, the patient continued to progress well with PT. Pain was well controlled. Repeat labs, hgb 13.5, Cr 1.59. This was near patient's PAT labs with Cr 1.54 at admission. The patients hospital stay was relatively uneventful and they were deemed stable by the orthopedic team and consultants to be discharged home with on 05/24/19. Discharge Instructions: Upon discharge the patient may weight bear as tolerates through their operative extremity. They were instructed to keep the incision clean and dry at all times. The patient may shower but should not submerge the incision, avoid bathing, pools and hot tubes. The patient was given a script for pain medication and should take as instructed. The patient was given a script for DVT ppx 81mg ASA BID and should take as directed. The patient was instructed to not drive or travel for long distances until cleared to do so. If the patient develops any symptoms of fevers, chills, nausea, vomiting, increased redness, swelling, pain or drainage from the surgical site, they should notify the office and/or proceed to the nearest emergency room. The patient should follow up in 10-14 days after surgery for their routine post-operative follow-up appointment and should call the office to confirm the date and time. Repeat BMP lab draw order provided and patient instructed to follow up with PCP within 1 week of discharge. s/p R TKA POD#2 -ARF -creatinine as noted above dropping to 1.59. Question of multiple medications changes with hypertensive medications and diabetic med. Await final recommendations per medicine service. Plan for discharge home today if okay with medicine service. -DVT ppx: SCDs, TEDs, ASA 81mg BID -WBAT RLE -PT/OT -am labs - hgb 13.5, Cr 1.59 -DC planning -Home with home health services today if okay with medicine service. Total Time Total Time Spent Total Time Spent (In Minutes): 60 minutes Total Time Includes: Examination of the Patient, Discharge Planning, Medication Reconciliation and Communication With Other Providers Discharge Plan Discharge Items Patient Disposition: Home - Home Health Services Reason For Visit: Right Knee Primary Osteoarthritis Discharge Diagnosis: Right total knee replacement Condition on Discharge: Good Activity: Per Instructions section Lifting: Wait until after follow-up appointment Bathing: Keep incision dry Bathing Comment: No bathing, pools or hot tubs. Sexual Activity: Wait until after follow-up appointment Exercise/Sports: Wait until after follow-up appointment Driving/Machine Use: No driving till cleared by your surgeon Weightbearing: Right weightbearing Non-emergency contact: Primary Care Provider and Surgeon Call non-emergency contact if: you have any medication questions, your symptoms worsen, your pain is not controlled, your pain is worsening, your pain is unusual for you, your pain is concerning for you, you have a fever, your temperature is above 101, your wound has increased redness, your wound has increased drainage and your wound pain has increased Follow-up/Referrals: Vicente Henry M.D. [Primary Care Provider] - Diet: Carb Consistent or DM2 Ambulatory Orders: Basic Metabolic Panel (Routine) Timeframe: [id number] Location: Determined by Patient Ordered By: Yvon Adame Attending Provider Instructions: ACTIVITY RECOMMENDATIONS: SELF CARE INSTRUCTIONS AFTER TOTAL KNEE REPLACEMENT A. You may need to continue a physical therapy program after discharge from the hospital. There are several options available to you. Your doctor will assist you in selecting the best one for you. 1. An out-patient facility 2 to 3 times a week for therapy or home therapy. 2. Continue working on all exercises taught to you in the hospital. Your goals should be to increase bending of your knee to 90 degrees and beyond and to fully straighten your knee. B. You may progress at your own pace from walking with a walker or crutches to a cane; then to no assistive devices. C. Make walking a part of your daily routine. Be up as much as comfortable with rest periods throughout the day. Rest with leg elevation is very important. Use the ice wrap frequently for the first 3-4 weeks. D. There are no restrictions on activities. You may ride in a car, shop, participate in hand bindery assembly worker and all social activities. E. Wear the long elastic stockings (ALFREDO hose) 20 hours a day for 2 weeks after surgery. They can be removed several times a day for laundering and for a bath. F. You may shower, no tub baths until cleared by your doctor. SPECIAL CARE INSTRUCTIONS: VERY IMPORTANT TO READ AND REVIEW A. There are a few signs you need to watch for after you are home. Call [facility] if you notice any of the followin. Increased severe knee pain. Some pain is expected especially when you exercise. 2. Increased swelling in your leg or knee; pain or swelling of the calf muscle in either lower leg. 3. Any fluid drainage from the incision. 4. Shortness of breath or chest pain. B. Please call [facility] at if you have any concerns or questions about your operation or recovery. The doctor or his nurse will return your call promptly. C. You must take antibiotics before dental work, bladder, bowel or other surgery. Your doctor will provide you with a permanent care to carry describing this precaution. IMPORTANT: * REMEMBER TO TAKE ASPIRIN, 81 MG, TWICE DAILY FOR 4 WEEKS UNLESS OTHERWISE DIRECTED. THIS IS YOUR BLOOD THINNER. * HIGH RISK PATIENTS MAY BE PRESCRIBED A STRONGER BLOOD THINNER. THIS WILL BE PROVIDED AT DISCHARGE. * CALL IF INCREASED PAIN, REDNESS, DRAINAGE OR FEVER GREATER THAT 101. * WEAR ALFREDO HOSE 20 HOURS PER DAY FOR 2 WEEKS. *DERMABOND Prineo- This is a mesh tape dressing that is covered with glue. It should remain in place until the incision is properly healed, usually 10-14 days. This dressing is designed to naturally slough off. You may trim the excess mesh tape as it peels off. Incision may be briefly wet in a shower. Dry immediately by blotting with a clean, dry towel. Do not bath or swim until instructed by your doctor. Do not scratch, rub, or pick at the dressing. Do not apply any topical ointments or lotions until dressing is completely removed and/or instructed by your doctor. There may be a small piece of suture material at one end of your incision. Do not pull or trim this. If it is bothersome or catching on clothing, you may cover it with a band-aid. FOLLOW UP VISIT: If appointment is not already scheduled: Please call [facility] to make a follow-up appointment for 2 weeks after your surgery at . Follow up with PCP in 1 week from discharge Follow up with Dr Everett in 1 week. If possible do home blood pressure checks daily. Lab order given for repeat BMP Pending Studies at Discharge: No Stand-Alone Forms: [facility] [employer], Opioid Pain Management Medications and DC Order Prescriptions: New aspirin [Ecotrin Low Strength] 81 mg Tablet,Delayed Release (Dr/Ec) 81 mg PO BID Qty: 56 RF: 0 acetaminophen [Tylenol Extra Strength] 500 mg Tablet 1,000 mg PO Q8 PRN (Reason: pain and/or fever) Qty: 90 RF: 0 oxycodone 5 mg Tablet 5 mg PO Q6H MDD 6 tabs PRN (Reason: pain) Qty: 30 RF: 0 sennosides [Senokot] 8.6 mg Tablet 17.2 mg PO HS PRN (Reason: constipation) Qty: 28 RF: 0 Continued hydralazine 25 mg Tablet 50 mg PO TID RF: 0 Januvia 100 mg PO DAILY RF: 0 furosemide [Lasix] 40 mg Tablet 40 mg PO QAM RF: 0 metoprolol succinate 100 mg Tablet Extended Release 24 Hr 100 mg PO HS RF: 0 omeprazole 40 mg Capsule,Delayed Release(Dr/Ec) 40 mg PO QAM RF: 0 alprazolam 0.5 mg Tablet 0.5 mg PO HS RF: 0 glimepiride 4 mg Tablet 4 mg PO BID RF: 0 lovastatin 20 mg Tablet 20 mg PO QPM RF: 0 amlodipine 5 mg Tablet 10 mg PO QAM RF: 0 Discontinued losartan 50 mg Tablet 50 mg PO QPM RF: 0 Discharge Orders: Discharge Order (Routine); Ordered 05/24/19 Ordered By: Yon Cannon/Other Patient Handouts: Tips Knee Post Op, Replacement Knee, Replacement Knee Home After, Replacement Knee First Month, Surgery Joint Home Safety Admission Data Admit Date/Time: 05/22/19 11:57 Attending Provider: Yvon Sullivan Admit Provider: Yvon Sullivan Primary Care Provider: Vicente Henry Other Providers: Jun Albert Other Interventions: Discharge Summary Assessment (RN) Last Done: 05/23/19 10:34 DC Date/Time DO NOT enter until pt leaves facility: 05/24/19 12:16
== END 2019-05-24 12:16 | disposition home health service (06) | DRG 470 ==
LOC: ASU 05:33 → 3E 11:57

== ENCOUNTER 2019-09-10 04:45 | Inpatient (IN) ==
--- NOTE | 2019-08-30 22:54 | PAT Medication Instructions ---
Medication Instructions Date of Service August 30, 2019 Home Medications Medication Instructions Recorded acetaminophen [Tylenol Extra 1,000 mg PO Q8 PRN #90 tab 05/22/19 Strength] oxycodone 5 mg PO Q6H PRN #30 tab MDD 6 tabs 05/22/19 alprazolam 0.5 mg PO HS furosemide [Lasix] 40 mg PO QAM glimepiride 4 mg PO BID lovastatin 20 mg PO QPM metoprolol succinate 100 mg PO HS omeprazole 40 mg PO QAM amlodipine 10 mg PO QAM hydralazine 50 mg PO TID acetaminophen [Tylenol Extra Strength] 1,000 mg PO Q8 PRN oxycodone 5 mg PO Q6H PRN sitagliptin [Januvia] 100 mg PO QAM DO NOT take the morning of surgery furosemide [Lasix] 40 mg PO QAM glimepiride 4 mg PO BID sitagliptin [Januvia] 100 mg PO QAM Take morning of surgery With a small sip of water, OTHERWISE NOTHING TO EAT OR DRINK AFTER MIDNIGHT: omeprazole 40 mg PO QAM amlodipine 10 mg PO QAM hydralazine 50 mg PO TID acetaminophen [Tylenol Extra Strength] 1,000 mg PO Q8 PRN (if needed, may be taken up to four hours before surgery) oxycodone 5 mg PO Q6H PRN (if needed, may be taken up to four hours before surgery) Take evening before surgery alprazolam 0.5 mg PO HS glimepiride 4 mg PO BID lovastatin 20 mg PO QPM metoprolol succinate 100 mg PO HS hydralazine 50 mg PO TID acetaminophen [Tylenol Extra Strength] 1,000 mg PO Q8 PRN (if needed) oxycodone 5 mg PO Q6H PRN (if needed) Other Notes If you have any questions please call us at [phone] or [phone] or [phone] or [phone]
--- NOTE | 2019-08-31 12:59 | Anesthesiology Consultation ---
Date of Service August 31, 2019 Assessment & Plan (1) Encounter for pre-operative examination: CHECK BSG AM DOS Cardio Clearance 08/27/19 (Travis Mckeon) = "I see no overt cardiac contraindications to surgery as scheduled. Recommend titration of hydralazine from 50 mg 3 times a day to 75 mg 3 times a day for additional blood pressure control. Patient to monitor blood pressure at home and report persistent hypertension and or observed hypotension especially prior to surgery. Recommend holding furosemide the morning of surgery, resuming postoperatively as hemodynamics permit. Recommend uninterrupted continuation of metoprolol, amlodipine, and hydralazine perioperatively, including the morning of surgery with small sips of water." Chart Review Chart Review: Acceptable Risk for Surgery (pending surgeon ordered pcp clearance 09/05 and pre op labs) and Patient seen in Pre Admission Testing Teaching & Discussion Instructed NPO after midnight before surgery, except medications with 15 cc of water. Medication instructions provided according to the PAT guidelines. History Surgery Operation Date: 09/10/19 11:40 Proposed Procedures p Left Total Knee Arthroplasty - Yvon Sullivan DO Height/Weight Height: 5 ft 10 in Weight: 114.4 kg Allergies Allergy/AdvReac Type Severity Reaction Status Date / Time lisinopril AdvReac ARNOLDO, Verified 08/20/19 10:37 hyperkalemia, ARF Medications Home Medications Medication Instructions Recorded Confirmed Last Taken alprazolam 0.5 mg PO HS 11/28/18 08/20/19 05/21/19 20:00 furosemide [Lasix] 40 mg PO QAM 11/28/18 08/20/19 05/21/19 06:00 glimepiride 4 mg PO BID 11/28/18 08/20/19 05/21/19 20:00 lovastatin 20 mg PO QPM 11/28/18 08/20/19 05/21/19 20:00 metoprolol succinate 100 mg PO HS 11/28/18 08/20/19 05/21/19 20:00 omeprazole 40 mg PO QAM 11/28/18 08/20/19 05/21/19 06:00 amlodipine 10 mg PO QAM 11/30/18 08/20/19 05/22/19 04:00 hydralazine 50 mg PO TID 04/27/19 08/20/19 05/22/19 04:00 acetaminophen [Tylenol Extra 1,000 mg PO Q8 PRN #90 tab 05/22/19 08/20/19 Un known Strength] oxycodone 5 mg PO Q6H PRN #30 tab MDD 6 tabs 05/22/19 08/20/19 Unknown sitagliptin [Januvia] 100 mg PO QAM 08/20/19 08/20/19 Unknown Past Medical History Medical History (Updated 08/31/19 @ 13:18 by Da Le) CKD (chronic kidney disease) Diabetes mellitus, type 2 NIDDM GERD (gastroesophageal reflux disease) controlled History of renal failure Flown to [facility] 02/14/19 for ARNOLDO/hyperkalemia/bradycardia in the 30s. All symptoms resolved with resolution of hyperkalemia. Hyperlipidemia Hypertension Insomnia Obesity Restless leg syndrome Sleep apnea CPAP Exercise / Class Metabolic Activity II 4-5 Yardwork/Stairs/Walk up hill (DENIES CP OR SOB WITH 1 FOS) Past Family History Family History Mother Family history of diabetes mellitus Other No family history of adverse response to anesthesia Past Surgical History Surgical History History of cardiac cath 10 YEARS AGO - [facility] - NO STENTS/ANGIOPLASTY History of cataract surgery RT/LEFT History of colonoscopy History of discectomy LUMBAR History of right knee joint replacement 05/22/2019 [facility] History of tooth extraction Hx of vasectomy Past Anesthesia History No Hx of Anesthesia Complications and No Family Hx of Anesthesia Complications History of PONV No Hx of PONV and No Hx of Motion Sickness Social History Smoking Status: Former smoker tobacco type: cigarettes Do You Dip or Chew Tobacco: Yes (1/2-3/4 OF A CAN PER DAY) Smoking End Date: QUIT 25YRS AGO Hx Alcohol Use: Yes Alcohol type: beer alcohol intake frequency: a few times a week Hx Substance Use: No substance use type: does not use Review of Systems Pt denies any recent chest pain, shortness of breath, palpitations, cough, fever or URI. Physical Exam Vital Signs BP: 135/75 P: 71bpm SPO2: 93% RA T: 97.9 F R: 18 ENMT Mouth: + dentures and + edentulous Thyromental Distance: > or= 3.5 Finger Breadths (4) Mallampati Class: II Neck normal visual inspection and + facial hair (short jeffrey); neck extension not limited Respiratory normal respiratory effort Auscultation: lungs clear to auscultation bilaterally Cardiovascular Rate/Rhythm: regular rate and regular rhythm Heart Sounds: no murmur Testing Laboratory Results 08/20/19 WBC: 8.19 H/H: 14.6/45.6 PLATELETS: 154 SODIUM: 144 POTASSIUM: 4.5 CHLORIDE: 104 CO2: 29 BUN: 17 CREATININE: 1.50 GLUCOSE: 121 Electrocardiogram Date: 11/29/18 Findings: + NSR @ (65bpm) Chest X-Ray Date: 11/29/18 Findings: + NAD Echocardiogram Date: 05/17/19 EF: 60-64% Stress echo is negative for inducible ischemia. There is adequate and appropriate heart rate and blood pressure response to dobutamine stress. No symptoms were noted. The stress EKG response showed no evidence of ischemia. LV wall motion is normal. LV wall motion with stress is normal. LVEF increases normally with stress. Moderate concentric LVH. Moderate aortic valve sclerosis is present. Aortic stenosis is absent.
[2019-08-31 15:59] LABS: Appearance Urine Clear (Clear); Bacteria Urine Automated Negative (Negative); Bilirubin Urine Negative (Negative); Blood Urine Negative (Negative); Color Urine Yellow; Epithelial Cell Urine Auto 0-5 /lpf (0-5); Glucose Urine UA Negative (Negative); Ketones Urine Negative (Negative); Leukocyte Esterase Urine Negative (Negative); Nitrite Urine Negative (Negative); Protein Urine 2+ (Negative); RBC Urine Automated 0-4 /hpf (0-4); Specific Gravity Urine 1.016 (1.000-1.030); Urobilinogen Urine Negative (Negative); pH Urine 5.5 (4.5-7.5)
[2019-08-31 16:06] LABS: Partial Thromboplastin Ratio 1.1; Partial Thromboplastin Time 28.8 Seconds (21.0-31.0); Prothrombin Time 10.3 Seconds (9.0-12.0)
--- NOTE | 2019-09-08 12:43 | History & Physical Report ---
Date of Service September 08, 2019 Assessment & Plan (1) Degenerative joint disease of left knee: I have indicated the patient for left total knee replacement. The risks, benefits and complications of surgery were explained to the patient which include but not limited to infection, acute blood loss, DVT/PE, injury to nerves, vessels, bone, soft tissue, arthrofibrosis, chronic pain, failure of the prosthesis, knee dislocation, leg length discrepancy, need for additional surgery, cardiac and pulmonary events and . The patient wished to proceed with surgery and informed consent was obtained at this time. We will plan for 81mg ASA BID post-operatively for DVT prophylaxis. Upon discharge the patient will be discharged home with home health services. Appropriate clearances by PCP, cardio were obtained. Patient has known DM and 1.5 Cr pre-operative labs which is near baseline, will monitor, keep well hydrated, repeat labs during the hospital stay and avoid excessive nephrotoxic medications. History of Present Illness Chief Complaint: Left knee pain/djd Primary Care Provider: Vicente Henry M.D. The patient is a 69 year old male who presents with complaints of severe left knee pain and DJD. The patient has failed outpatient conservative treatments to this point which included NSAIDs, IA corticosteroid injection, PT, home exercise/walking program. The patient's pain and limited function have progressed to the point where they severely hinder their activities of daily living and they no longer tolerate exercise programs. They are requesting to proceed with total knee replacement surgery. Allergies Allergy/AdvReac Type Severity Reaction Status Date / Time lisinopril AdvReac ARNOLDO, Verified 09/10/19 05:23 hyperkalemia, ARF Home Medications Home Medications Medication Instructions Recorded Confirmed Type alprazolam 0.5 mg PO HS 11/28/18 09/10/19 History furosemide [Lasix] 40 mg PO QAM 11/28/18 09/10/19 History glimepiride 4 mg PO BID 11/28/18 09/10/19 History lovastatin 20 mg PO QPM 11/28/18 09/10/19 History metoprolol succinate 100 mg PO HS 11/28/18 09/10/19 History omeprazole 40 mg PO QAM 11/28/18 09/10/19 History amlodipine 10 mg PO QAM 11/30/18 09/10/19 History hydralazine 50 mg PO TID 04/27/19 09/10/19 History acetaminophen [Tylenol Extra 1,000 mg PO Q8 PRN #90 tab 05/22/19 09/10/19 Rx Strength] oxycodone 5 mg PO Q6H PRN #30 tab MDD 6 tabs 05/22/19 09/10/19 Rx sitagliptin [Januvia] 100 mg PO QAM 08/20/19 09/10/19 History Past Med/Surg History Medical History CKD (chronic kidney disease) Diabetes mellitus, type 2 NIDDM GERD (gastroesophageal reflux disease) controlled History of renal failure Flown to [facility] 02/14/19 for ARNOLDO/hyperkalemia/bradycardia in the 30s. All symptoms resolved with resolution of hyperkalemia. Hyperlipidemia Hypertension Insomnia Obesity Restless leg syndrome Sleep apnea CPAP Surgical History History of cardiac cath 10 YEARS AGO - [facility] - NO STENTS/ANGIOPLASTY History of cataract surgery RT/LEFT History of colonoscopy History of discectomy LUMBAR History of right knee joint replacement 05/22/2019 [facility] History of tooth extraction Hx of vasectomy Family History Mother Family history of diabetes mellitus Other No family history of adverse response to anesthesia Social History Preferred Language: Telugu Communication Ability: Effective Housekeeper Head Required: No Beliefs That Will Affect Care: None marital status: Current Living Situation: Spouse Other Information That Helps Us Care for You: No Feels Safe at Home: Yes Safety Concerns: Feels Safe At This Time Smoking Status: Former smoker Tobacco Type: cigarettes ; Do You Dip or Chew Tobacco: Yes (1/2-3/4 OF A CAN PER DAY) ; Smoking End Date: QUIT 25YRS AGO ; Second Hand Exposure: No ; Tobacco Cessation Education Requested by Patient: No Hx Alcohol Use: Yes Alcohol type: beer Hx Substance Use: No Review of Systems Review of Systems: All systems reviewed & are unremarkable except as noted in HPI & below Constitutional: as per Subjective / HPI Physical Exam Physical Exam: LLE NVSI +EHL/FHL/TA/GS SILT grossly, +2 DP pulse, compartments soft NT, limited painful ROM of the knee, 5-105 degrees of flexion, +crepitus. Constitutional: WD/WN, vitals as above Eyes: PERRL, conjunctivae normal, anicteric sclerae ENMT: external ear and nose normal, oropharynx normal Neck: trachea midline, no thyromegaly Respiratory: normal respiratory effort, lungs clear to auscultation Cardiovascular: RRR, no murmur, no edema Gastrointestinal (Abdomen): normal bowel sounds, soft, nontender, no hepatosplenomegaly Musculoskeletal: no cyanosis or clubbing, extremities motor strength 5/5 Skin: no rashes, warm and dry Neurologic: patellar DTR's 2+ bilat, sensation intact Psychiatric: A+Ox3, euthymic affect Lymphatic: no cervical or axillary lymphadenopathy Results & Data Diagnostic Findings Multiple views of the knee demonstrates severe tricompartmental DJD with complete loss of the medial and moderate loss patellofemoral joint space. +osteophytes, +sclerosis, +subchondral cysts.
[2019-09-10] MEDS: FAMOTIDINE 20 MG TAB PO SCH (05:41)
[2019-09-10] MEDS ORDERED: LR 500ML BOLUS, THEN 15ML/HR IV SCH (06:00)
[2019-09-10] MEDS ORDERED: CeleBREX 200 MG CAP PO SCH (06:00)
[2019-09-10] MEDS ORDERED: GABAPENTIN 300 MG CAP PO SCH (06:00)
[2019-09-10] MEDS ORDERED: CEFAZOLIN 2000MG 2,000 MG/15 ML SYR IV SCH (06:00)
[2019-09-10] MEDS ORDERED: METOCLOPRAMIDE HCL 10 MG TABLET PO SCH (06:00)
[2019-09-10] MEDS ORDERED: TRANEXAMIC ACID / 0.7% NACL 1,000 MG/100 ML BAG IV SCH (06:00)
[2019-09-10] MEDS ORDERED: dexAMETHasone 4 MG TAB PO SCH (06:00)
[2019-09-10] MEDS ORDERED: ROPIVACAINE 0.5% HCL/PF 150 MG, BUPIVACAINE 0.5% MPF 30 ML, EPINEPHrine 30MG/30ML (OR U... INSTIL SCH (06:00)
[2019-09-10] MEDS ORDERED: ACETAMINOPHEN 500 MG TAB PO SCH (06:00)
[2019-09-10] MEDS ORDERED: TRANEXAMIC ACID 1,000 MG **IV Intra-op IV SCH (06:00)
[2019-09-10] MEDS ORDERED: PROPOFOL IV EMULSION 10 MG/ML 20 ML VIAL IV ONE (06:22)
[2019-09-10] MEDS ORDERED: MIDAZOLAM HCL 1 MG/ML 2ML VIAL ONE ×2 (06:23→07:39)
[2019-09-10] MEDS ORDERED: fentaNYL citrate 100 MCG/2 ML VIAL ONE (06:23)
[2019-09-10] MEDS ORDERED: BUPIVACAINE 0.5 % 5 MG/1 ML PF 10ML VIAL ONE (06:32)
[2019-09-10] MEDS ORDERED: ROPIVACAINE 0.5% 5 MG/ML 30 ML VIAL ONE (06:33)
[2019-09-10] MEDS ORDERED: EPINEPHrine INJ 1 MG/ML AMP ONE (06:33)
--- NOTE | 2019-09-10 06:44 | History & Physical Bridge Note ---
Date of Service September 10, 2019 History & Physical Bridge Note I have examined the patient, reviewed the History & Physical and in the interval since the performance of the History & Physical I have noted the following changes of clinical significance: no changes noted
[2019-09-10] MEDS ORDERED: ORTHO JOINT ANESTHETIC ONE (06:46)
[2019-09-10] MEDS ORDERED: BACITRACIN INJ 50,000 UNIT VIAL ONE (06:46)
[2019-09-10] MEDS ORDERED: ONDANSETRON INJ 2 MG/ML 2 ML VIAL IV PRN ×2 (07:15→09:56)
[2019-09-10] MEDS ORDERED: fentaNYL citrate 100 MCG/2 ML VIAL IV PRN (07:15)
[2019-09-10] MEDS ORDERED: LABETALOL HCL IV 5 MG/ML 20ML IV PRN (07:15)
[2019-09-10] MEDS ORDERED: PHENYLEPHRINE 100MCG/ML 5ML SYR IV PRN (07:15)
[2019-09-10] MEDS ORDERED: ePHEDrine sulfate 50 MG/ML AMP IV PRN (07:15)
[2019-09-10] MEDS ORDERED: ATROPINE SULFATE 0.1 MG/ML 10ML SYR IV PRN (07:15)
--- NOTE | 2019-09-10 08:31 | Post Operative Brief Note ---
Immediate Post Op Note v1 Date of Surgery September 10, 2019 Pre & Post Diagnosis Operation Date: 09/10/19 07:00 Pre-Op Diagnosis: Left Knee Degenerative Joint Disease Post-Op Diagnosis: Left Knee Degenerative Joint Disease I identified the patient and participated in the time-out.: Yes Procedure Operation Date: 09/10/19 07:00 Actual Procedures p Left Total Knee Arthroplasty(Left) - Yvon Sullivan DO Surgeon Yvon Sullivan DO White Washer Piler Frederick Kim Estimated Blood Loss 55 Findings Consistent with Post-Op Diagnosis Fluids 1000 cc LR Specimens proximal tibia, distal femur bone fragments Anesthesia Type Spinal MAC Complications none Disposition Disposition: Recovery Room Overlapping Procedure I was present for: the critical portions of procedure. I was immediately available: during the entire case. Back up surgeon: was not required during procedure.
--- NOTE | 2019-09-10 08:33 | Operative Report ---
Post Operative Report Pre & Post Diagnosis Operation Date: 09/10/19 07:00 Pre-Op Diagnosis: Left Knee Degenerative Joint Disease Post-Op Diagnosis: Left Knee Degenerative Joint Disease I identified the patient and participated in the time-out.: Yes Procedure Operation Date: 09/10/19 07:00 Actual Procedures p Left Total Knee Arthroplasty(Left) - Yvon Sullivan DO Surgeon Yvon Sullivan, Biology Faculty Member Frederick Kim Estimated Blood Loss 55 Findings Consistent with Post-Op Diagnosis Fluids 1000 cc LR Specimens Proximal tibia and distal femur bone fragments Anesthesia Type Spinal MAC Complications none Indications The patient is a 69-year-old male presents with long history of severe left knee tricompartmental DJD and failed outpatient conservative treatments including NSAIDs, bracing, injections and home walking/exercise program. The patient's symptoms have progressed to the point where it has been difficult to perform normal activities of daily living. I have indicated the patient for a left total knee arthroplasty, the risks and benefits and complications of the procedure include but are not limited to infection bleeding damage to bone, nerves, vessels, surrounding soft tissue, blood clots, loss of function, leg length discrepancy, dislocation, failure of the components, need for additional surgery and . The patient wished to proceed with surgery at this time and informed consent was obtained. Appropriate clearances were obtained. Description of Procedure COMPONENTS USED: Gauri persona knee system: Femur size 9 , Tibia size F tibial articulating surface 10 PS, Patella 35 mm Following induction of spinal anesthesia, a tourniquet was applied to the proximal aspect of the thigh and the patient's left leg was prepped and draped in the usual sterile manner. A timeout was performed, patient identified and site hiram confirmed. Appropriate pre-operative IV antibiotics were given. The limb was exsanguinated with an Esmarch bandage and tourniquet was inflated to 300 mmHg. A longitudinal midline incision was made over the anterior knee. Subcutaneous tissue was sharply dissected down to fascia. Electrocautery was used for hemostasis. Next a parapatellar arthrotomy was performed. Patella was everted and the knee was flexed. A Ríos retractor was used to expose the synovium above on the anterior aspect of the femur and removed down to bone. Next, the anterior fat pad was removed to aid in visualization. The medial face of the tibia was cleared of soft tissue first with a Bovie and a thompson elevator. This tissue was retracted posteriorly using a blunt Hohmann. Next, the extra-medullary tibial cutting guide was placed to the anterior aspect of the tibia. The tibia resection level was set taking 2mm from the defective tibial condyle. Resection depth was once again confirmed with nimesh wing. The medial and lateral collateral ligament was protected with two Hohmann retractors. The tibia guide was removed and proximal tibial bone fragment removed utilizing straight osteotome, electrocautery and Mar. Next, the distal femur intramedullary canal was accessed utilizing the step drill. The intramedullary distal femur cutting guide was placed into the canal and pinned into place. The distal femur was cut on the 5 degree setting. Next the cutting guide was removed and the femur was sized. Care was taken to ensure appropriate network technician all rotation and 3 degree holes were drilled. A size 9 4-in-1 cutting block was placed on the distal end of the femur and secured into place with two short headed screws. Two bent Hohmann retractors were placed to protect the medial and lateral collateral ligaments. The oscillating saw was used to cut anterior, posterior, anterior chamfer and posterior chamfer. The four and one cutting block was removed and bone fragments excised. Laminar asphalt spreader was placed laterally and the ACL and PCL were removed followed by the medial meniscus and posterior medial osteophytes. Aquamantys was utilized for any posterior medial bleeders and Orthomix injected into the posterior medial capsule. A laminar asphalt spreader was then placed in the medial compartment and the lateral meniscus and posterior osteophytes were removed. Aquamantys was utilized for any posterior lateral bleeders and Orthomix injected into the posterior lateral capsule. Next, drop aditi and spacer block were placed with the leg in flexion and extension to assess alignment and flexion/extension gaps. Next, the proximal tibia was assessed and two bent Hohmans were placed medial and lateral to aid in visualization. The appropriate tibia size and rotation was selected and a size F tibial plate was pinned into place with appropriate rotation. Preparation of the tibia was completed utilizing the matching tibial drill and broach. I then turned my attention back to the distal femur in a trial femoral component was impacted into place. Appropriate femoral width was assessed and selected. Next the femur PS box cut guide was placed and cut made with the reciprocal saw and the PS box provisional placed. A trial size 10 PS tibia articular tray was placed and varus-valgus balance assessed in 0 degrees of extension and 30, 60 and 90 degrees of flexion. A final tibial articular surface size 10 PS was chosen. Assess was gained to the patella and caliper utilized to measure width. The patella reamer was utilized and remaining bone removed with oscillating saw. A size 35 mm patella button was selected and the patella pegs drilled. Trial patella button was placed and tracking was assessed. The knee was found to be well balanced, well aligned with excellent patella tracking. The trials were removed and final components were obtained and assembled. The knee was irrigated copiously with sterile saline solution mixed with bacitracin. Access to the proximal tibia was once again obtained utilizing to the Hohmans and the proximal tibia and distal femur were dried with lap sponges. The final components were cemented into place and all excess cement was removed. A trial tibial articular surface was placed while cemented hardened. Knee stability was once again assessed and the final component inserted. A Betadine soak was performed. After 3 minutes, the hip was once more irrigated with copious sterile saline solution with bacitracin. The knee was injected with the remaining Orthomix which includes a combination of Ropivicaine 0.5% 150mg, Bupivicaine 0.5%/Epinephrine 1:200,000 30ml, Toradol 30mg, Dexamethasone 4mg, Ketamine 10mg, Clonidine 100mcg and NSS 30ml solution. The capsulotomy was closed with #1 Vicryl followed by subcutaneous closure with 2-0 Vicryl suture. Skin closure was performed using 3.0 stratafix running suture. Sterile d ressings were applied which included Silverlon dressing. Tourniquet was deflated at 88 minutes. The patient tolerated the procedure well and was taken to the PACU in stable condition. Due to the complex nature of the procedure, the entire surgery was performed with the operational assistance of Frederick kim PA-C. The high school assistant football coach, under direct supervision, was involved in the actual performance of all aspects of the surgical procedure including patient positioning, hemostasis, tissue retraction, instrument management and wound closure. I attest to the content of the Intraoperative Record and any orders documented therein. Any exceptions are noted below.
--- NOTE | 2019-09-10 09:26 | XRay Report ---
XR knee LT 1 or 2V routine HISTORY: 69 years-old Male Surgical Post Op chronic left knee pain. Left knee total joint arthroplas ty COMPARISON: None available TECHNIQUE: 2 views of the left knee FINDINGS: Left knee total joint arthroplasty and patella resurfacing. Satisfactory alignment without acute frac ture or definite retained foreign body. Anterior pain is material is noted along with expected postsu rgical soft tissue swelling and deep tissue air with surgical drainage catheter. Cortical thickening involving the medial proximal tibial diaphysis is partially imaged and suggests healed remote fractur e deformity. IMPRESSION: Satisfactory alignment of the left knee total joint arthroplasty with expected postoperat jose findings. ACT 112: Negative or not required by law. The above report was generated using voice recognition software. It may contain grammatical, syntax o r spelling errors. Electronically signed by: Neal Martin M.D. 09/10/2019 9:25 AM
--- NOTE | 2019-09-10 09:30 | Anesthesiology Progress Note ---
Date of Service September 10, 2019 Anesthesia Post Procedure Vital Signs Vital Signs: Temp Pulse Pulse Resp BP Pulse Ox 09/10/19 09:20 70 18 133/68 95 09/10/19 09:10 70 18 142/80 H 96 09/10/19 09:02 37.0 C 69 14 160/79 H 96 09/10/19 05:56 36.6 C 63 16 170/86 H 94 Transfer of Care Handoff Completed per policy Notes Mental Status: alert / awake / arousable Patient Amnestic to Procedure: Yes Nausea / Vomiting: adequately controlled Pain: adequately controlled Airway Patency, RR, SpO2: stable & adequate BP & HR: stable & adequate Hydration State: stable & adequate Neuraxial Anesthesia: was administered and sensory block is resolving Anesthetic Complications: no major complications apparent and Pt Satisfied with anesthetic care
[2019-09-10] MEDS ORDERED: MAGNESIUM HYDROXIDE SUSP 30 ML UDC PO PRN (09:56)
[2019-09-10] MEDS ORDERED: OXYCODONE HCL IR 5 MG TAB (IMMEDIATE RELEASE) PO PRN (09:56)
[2019-09-10] MEDS ORDERED: NALOXONE HCL 0.4 MG/1 ML VIAL/CARP IV PRN (09:56)
[2019-09-10] MEDS ORDERED: CEFAZOLIN 3000MG/72.5 ML BAG IV SCH (09:56)
[2019-09-10] MEDS ORDERED: METOCLOPRAMIDE HCL INJ 5 MG/ML 2 ML VIAL IV PRN (09:56)
[2019-09-10] MEDS ORDERED: HYDROmorphone INJ 0.5 MG/0.5 ML SYR IV PRN (09:56)
[2019-09-10] MEDS ORDERED: bisacodyL 10 MG SUPP PR PRN (09:56)
[2019-09-10] MEDS ORDERED: PHARMACY GLYCEMIC MGMT CONSULT PRN (10:05)
[2019-09-10] MEDS: AMLODIPINE BESYLATE 5 MG TAB PO SCH (11:41)
[2019-09-10] MEDS: MULTIVITAMIN TAB PO SCH (11:41)
[2019-09-10] MEDS: DOCUSATE SODIUM 100 MG CAP PO SCH ×2 (11:41→21:10)
[2019-09-10] MEDS: HydrALAZINE TAB 50 MG TAB PO SCH ×3 (11:41→21:09)
[2019-09-10] MEDS: SODIUM CHLORIDE 0.9% 1000ML 1,000 ML IV SCH ×2 (11:42→21:08)
[2019-09-10] MEDS: PANTOprazole 40 MG TAB PO SCH (11:43)
[2019-09-10] MEDS ORDERED: INSULIN GLARGINE SOLOSTAR 100 UNITS/ML 3 ML PEN SC STA (12:26)
--- NOTE | 2019-09-10 12:39 | Pharmacy Report ---
Glycemic Control Consultation - Date of Service September 10, 2019 - Scope Scope: Glycemic Pharmacist consulted by Dr Sullivan on 09/10/2019 for glycemic control and to write orders per [facility] inpatient glycemic control protocol - Objective Weight: 116.256 kg Accuchecks BSG (last 24hrs): 09/10/19 09/10/19 09/10/19 05:10 09:05 12:12 POC Glucose 124 H 159 H 298 H - Recent Pertinent Medications Outpatient Anti-diabetic Regimen: * Glimepride 4mg BID + Januvia * A1c = 6.3 % 05/01/19 - Assessment & Plan Assessment & Plan: ASSESSMENT: * Pt is a 69yo M s/p L TKA. He is a type II diabetic. PMHx consistent with CKD, HLD, HTN, Obesity, among others. He recived 8mg PO DXM pre-operatively. Post- op BSG 298mg/dL. He is ordered a diet. PLAN FOR INPATIENT GLYCEMIC CONTROL: * Holding outpatient oral diabetes medications * Basal insulin * Lantus 40units x1 STAT then a one time lantus scale tonight @[facility], see MAR for further details * Bolus insulin * NovoLog per scale ACHS or Q6hrs while NPO * Goal Range: Low 110 mg/dL - High 140 mg/dL * Correction Factor: 15 mg/dL/unit * Nutritional / Prandial insulin per carb ratio of 1 unit per 5 grams CHO consumed * will add 00,04 checks * Please note that the plan above was derived based on current level of insulin resistance and hospital stress. These recommendations are appropriate for inpatient admission only. Plan of care upon discharge will need to be reassessed to avoid potential outpatient hypo/hyperglycemia. Thank you.
[2019-09-10] MEDS: INSULIN ASPART 100 UNITS/ML 3 ML PEN SC SCH ×3 (13:09→21:13)
[2019-09-10] MEDS: CEFAZOLIN 3000MG 65 ML IV SCH (13:56)
--- NOTE | 2019-09-10 13:56 | Orthopedic Progress Note ---
Date of Service September 10, 2019 Assessment & Plan (1) Degenerative joint disease of left knee: s/p L TKA -ancef x24 -DVT ppx: SCDs, TEDs, 81mg ASA BID -WBAT LLE -PT/OT -PO XR demonstrates a well aligned well fixed prosthesis without fracture/dislocation -am labs -DC planning - home with HH Subjective Post Operative Progress Note Patient seen sitting up in bed, comfortable, denies complaints, pain well controlled, no acute issues. Review of Systems Review of Systems: All systems reviewed & are unremarkable except as noted in HPI & below Constitutional: as per Subjective / HPI Physical Exam Physical Exam: LLE NVSI +EHL/FHL/TA/GS SILT grossly, +2 DP pulse, compartments soft NT, dressing cdi. Constitutional: WD/WN, vitals as above Results & Data Vital Signs (Past 12 Hours) Vital Signs Temp Pulse Pulse Pulse Resp BP Pulse Ox 09/10/19 12:40 65 16 151/77 H 91 09/10/19 11:40 74 18 165/75 H 95 09/10/19 10:41 36.5 C 73 16 131/80 95 09/10/19 10:12 66 16 127/72 95 09/10/19 09:40 36.7 C 61 16 153/80 H 97 09/10/19 09:30 37.0 C 61 15 136/80 96 09/10/19 09:20 70 18 133/68 95 09/10/19 09:10 70 18 142/80 H 96 09/10/19 09:02 37.0 C 69 14 160/79 H 96 09/10/19 05:56 36.6 C 63 16 170/86 H 94
[2019-09-10] MEDS: ACETAMINOPHEN 500 MG TAB PO SCH ×2 (13:57→21:11)
[2019-09-10] MEDS ORDERED: METOPROLOL SUCC 50MG EXT REL TAB PO SCH (21:00)
[2019-09-10] MEDS ORDERED: LOVASTATIN 20 MG TAB PO SCH (21:00)
[2019-09-10] MEDS ORDERED: INSULIN GLARGINE SOLOSTAR 100 UNITS/ML 3 ML PEN SC ONE ×2 (21:00→21:15)
[2019-09-10] MEDS ORDERED: SENNA 8.6 MG TAB PO SCH (21:00)
[2019-09-10] MEDS ORDERED: ALPRAZolam 0.5 MG TABLET PO SCH (21:00)
[2019-09-11] MEDS: INSULIN ASPART 100 UNITS/ML 3 ML PEN SC SCH ×3 (00:20→09:23)
[2019-09-11] MEDS: CEFAZOLIN 3000MG 65 ML IV SCH (00:21)
[2019-09-11 06:01] LABS: Mean Corpuscular Hgb Conc 32.9 g/dL (32-36)
[2019-09-11] MEDS: FAMOTIDINE 20 MG TAB PO SCH (06:17)
[2019-09-11 06:19] LABS: Hematocrit (blood only) 40.1 % (42-52); Hemoglobin 13.2 g/dL (14.0-18.0); Mean Corpuscular Hemoglobin 30.1 pg (25-34); Mean Corpuscular Volume 91.6 fL (80-100); Mean Platelet Volume 13.3 fL (7.4-10.4); Platelet Count 133 K/uL (130-400); RDW Coefficient of Variation 13.7 % (11.5-14.5); RDW Standard Deviation 45.8 fL (36.4-46.3); Red Blood Count 4.38 M/uL (4.7-6.1); White Blood Count 16.34 K/uL (4.8-10.8)
[2019-09-11 06:20] LABS: Platelet Estimate Decreased (Normal)
[2019-09-11] MEDS: ACETAMINOPHEN 500 MG TAB PO SCH (06:21)
[2019-09-11 06:32] LABS: BUN Creatinine Ratio 16.4 (10-20); Calcium 8.3 mg/dl (8.5-10.1); Est GFR (Non-African American) 47.5; Potassium 4.1 mmol/L (3.5-5.1)
[2019-09-11 06:36] LABS: Estimated Average Glucose 134 mg/dl; Hemoglobin A1C 6.3 % (4.5-5.6)
--- NOTE | 2019-09-11 07:42 | Orthopedic Progress Note ---
Date of Service September 11, 2019 Assessment & Plan (1) Degenerative joint disease of left knee: s/p L TKA POD#1 -ancef x24 -DVT ppx: SCDs, TEDs, 81mg ASA BID -WBAT LLE -PT/OT -PO XR demonstrates a well aligned well fixed prosthesis without fracture/dislocation -am labs - hgb 13.2 -DC planning - home with HH Subjective Post Operative Progress Note Patient seen sitting up in bed, comfortable, denies complaints, pain well controlled, no acute issues. Denies F/C/N/V/SOB/CP. Review of Systems Review of Systems: All systems reviewed & are unremarkable except as noted in HPI & below Constitutional: as per Subjective / HPI Physical Exam Physical Exam: LLE NVSI +EHL/FHL/TA/GS SILT grossly, +2 DP pulse, compartments soft NT, dressing cdi. Constitutional: WD/WN, vitals as above Results & Data Vital Signs (Past 12 Hours) Vital Signs Temp Pulse Resp BP Pulse Ox 09/11/19 03:50 36.4 C L 63 18 150/74 H 94 09/10/19 23:50 36.4 C L 69 18 147/79 H 95 Laboratory Results 09/11/19 09/11/19 09/11/19 Range/Units 05:25 05:25 05:25 WBC 16.34 H (4.8-10.8) K/uL RBC 4.38 L (4.7-6.1) M/uL Hgb 13.2 L (14.0-18.0) g/dL Hct 40.1 L (42-52) % MCV 91.6 (80-100) fL MCH 30.1 (25-34) pg MCHC 32.9 (32-36) g/dL RDW Std Deviation 45.8 (36.4-46.3) fL RDW Coeff of Arvin 13.7 (11.5-14.5) % Plt Count 133 (130-400) K/uL MPV 13.3 H (7.4-10.4) fL Platelet Estimate Decreased L (Normal) Sodium 138 (136-145) mmol/L Potassium 4.1 (3.5-5.1) mmol/L Chloride 107 (98-107) mmol/L Carbon Dioxide 28 (21-32) mmol/L Anion Gap 3.0 (3-11) BUN 25 H (7-18) mg/dl Creatinine 1.50 H (0.6-1.4) mg/dl Est Cr Clr Drug Dosing 61.0 ml/min Est GFR ( Amer) 55.0 Est GFR (Non-Af Amer) 47.5 BUN/Creatinine Ratio 16.4 (10-20) Glucose 134 H (70-99) mg/dl POC Glucose (70-99) Estimat Average Glucose 134 mg/dl Hemoglobin A1c 6.3 H (4.5-5.6) % Calcium 8.3 L (8.5-10.1) mg/dl Hepatitis C Ab Screen 09/11/19 09/11/19 09/10/19 Range/Units 05:25 03:50 23:46 WBC (4.8-10.8) K/uL RBC (4.7-6.1) M/uL Hgb (14.0-18.0) g/dL Hct (42-52) % MCV (80-100) fL MCH (25-34) pg MCHC (32-36) g/dL RDW Std Deviation (36.4-46.3) fL RDW Coeff of Arvin (11.5-14.5) % Plt Count (130-400) K/uL MPV (7.4-10.4) fL Platelet Estimate (Normal) Sodium (136-145) mmol/L Potassium (3.5-5.1) mmol/L Chloride (98-107) mmol/L Carbon Dioxide (21-32) mmol/L Anion Gap (3-11) BUN (7-18) mg/dl Creatinine (0.6-1.4) mg/dl Est Cr Clr Drug Dosing ml/min Est GFR ( Amer) Est GFR (Non-Af Amer) BUN/Creatinine Ratio (10-20) Glucose (70-99) mg/dl POC Glucose 185 H 241 H (70-99) Estimat Average Glucose mg/dl Hemoglobin A1c (4.5-5.6) % Calcium (8.5-10.1) mg/dl Hepatitis C Ab Screen Pending 09/10/19 09/10/19 09/10/19 Range/Units 20:52 17:16 12:12 WBC (4.8-10.8) K/uL RBC (4.7-6.1) M/uL Hgb (14.0-18.0) g/dL Hct (42-52) % MCV (80-100) fL MCH (25-34) pg MCHC (32-36) g/dL RDW Std Deviation (36.4-46.3) fL RDW Coeff of Arvin (11.5-14.5) % Plt Count (130-400) K/uL MPV (7.4-10.4) fL Platelet Estimate (Normal) Sodium (136-145) mmol/L Potassium (3.5-5.1) mmol/L Chloride (98-107) mmol/L Carbon Dioxide (21-32) mmol/L Anion Gap (3-11) BUN (7-18) mg/dl Creatinine (0.6-1.4) mg/dl Est Cr Clr Drug Dosing ml/min Est GFR ( Amer) Est GFR (Non-Af Amer) BUN/Creatinine Ratio (10-20) Glucose (70-99) mg/dl POC Glucose 309 H* 310 H* 298 H (70-99) Estimat Average Glucose mg/dl Hemoglobin A1c (4.5-5.6) % Calcium (8.5-10.1) mg/dl Hepatitis C Ab Screen 09/10/19 Range/Units 09:05 WBC (4.8-10.8) K/uL RBC (4.7-6.1) M/uL Hgb (14.0-18.0) g/dL Hct (42-52) % MCV (80-100) fL MCH (25-34) pg MCHC (32-36) g/dL RDW Std Deviation (36.4-46.3) fL RDW Coeff of Arvin (11.5-14.5) % Plt Count (130-400) K/uL MPV (7.4-10.4) fL Platelet Estimate (Normal) Sodium (136-145) mmol/L Potassium (3.5-5.1) mmol/L Chloride (98-107) mmol/L Carbon Dioxide (21-32) mmol/L Anion Gap (3-11) BUN (7-18) mg/dl Creatinine (0.6-1.4) mg/dl Est Cr Clr Drug Dosing ml/min Est GFR ( Amer) Est GFR (Non-Af Amer) BUN/Creatinine Ratio (10-20) Glucose (70-99) mg/dl POC Glucose 159 H (70-99) Estimat Average Glucose mg/dl Hemoglobin A1c (4.5-5.6) % Calcium (8.5-10.1) mg/dl Hepatitis C Ab Screen
--- NOTE | 2019-09-11 07:58 | Anesthesiology Progress Note ---
Date of Service September 11, 2019 Anesthesia Post Procedure Vital Signs Vital Signs: Temp Pulse Pulse Pulse Resp BP Pulse Ox 09/11/19 03:50 36.4 C L 63 18 150/74 H 94 09/10/19 23:50 36.4 C L 69 18 147/79 H 95 09/10/19 19:36 62 155/82 H 09/10/19 19:28 36.4 C L 64 16 195/82 H 95 09/10/19 15:17 36.4 C L 77 16 128/70 93 09/10/19 12:40 65 16 151/77 H 91 09/10/19 11:40 74 18 165/75 H 95 09/10/19 10:41 36.5 C 73 16 131/80 95 09/10/19 10:12 66 16 127/72 95 09/10/19 09:40 36.7 C 61 16 153/80 H 97 09/10/19 09:30 37.0 C 61 15 136/80 96 09/10/19 09:20 70 18 133/68 95 09/10/19 09:10 70 18 142/80 H 96 09/10/19 09:02 37.0 C 69 14 160/79 H 96 Pain Intensity Left Knee: Pain Intensity: 0 Transfer of Care Handoff Completed per policy Notes Mental Status: alert / awake / arousable Patient Amnestic to Procedure: Yes Nausea / Vomiting: adequately controlled Pain: adequately controlled Neuraxial Anesthesia: was administered and sensory block resolved Anesthetic Complications: no major complications apparent and Pt Satisfied with anesthetic care
[2019-09-11] MEDS: HydrALAZINE TAB 50 MG TAB PO SCH (08:20)
[2019-09-11] MEDS: DOCUSATE SODIUM 100 MG CAP PO SCH (08:20)
[2019-09-11] MEDS: PANTOprazole 40 MG TAB PO SCH (08:20)
[2019-09-11] MEDS: MULTIVITAMIN TAB PO SCH (08:20)
[2019-09-11] MEDS: AMLODIPINE BESYLATE 5 MG TAB PO SCH (08:20)
[2019-09-11] MEDS ORDERED: ASPIRIN 81 MG ECTAB PO SCH (09:00)
== END 2019-09-11 12:37 | disposition home health service (06) | DRG 470 ==
LOC: ASU 04:45 → 3E 09:06

== ENCOUNTER 2022-11-30 16:37 | Inpatient (IN) ==
--- NOTE | 2022-11-30 16:48 | ED Triage Note ---
Date of Service November 30, 2022 History of Present Illness This patient was briefly evaluated while in triage. An abbreviated physical exam was performed. This patient is a 72-year-old Male who presents to the ED for evaluation of anemia and black loose stools. The patient was referred to the emergency depa rtment by the AUSTIN Mcknight. The patient had lab work and an office visit today. When he got home, he was called and instructed to come to the emergency department for further management. The patient did have a surgery approximately 6 months ago for bleeding in the stomach. The patient denies any significant abdominal discomfort Physical Exam CONSTITUTIONAL: Healthy and well nourished. Alert and oriented X 3. HEENT: No scleral icterus. Mild conjunctival pallor noted. NECK: Full active range of motion without discomfort. LYMPHATICS: No cervical chain adenopathy. RESPIRATORY: Clear to auscultation bilaterally with no wheezing, crackles, rhonchi or stridor. CARDIOVASCULAR: Regular rate and rhythm with no murmurs, rubs or gallops. GASTROINTESTINAL: Bowel sounds present in all quadrants. MUSCULOSKELETAL: Full range of motion of all joints without discomfort. INTEGUMENTARY: No rash or other significant dermatologic conditions noted. HEMATOLOGIC: No ecchymosis or petechiae. PSYCHIATRIC: Positive affect. NEUROLOGIC: No focal neurologic deficits noted. Initial orders for labs and / or imaging were placed and patient was placed in the waiting area until a bed is available. Please see further documentation for the full ED course.
--- NOTE | 2022-11-30 17:48 | XRay Report ---
SINGLE VIEW CHEST CLINICAL HISTORY: GI bleeding FINDINGS: An AP, portable, upright chest radiograph is compared to study dated 11/29/2018. The heart is mildly enlarged noting atherosclerotic calcification of the thoracic aorta. The pulmonary vasculatur e is noncongested. Chronic interstitial thickening is similar to previous. Scarring/atelectasis is no dyllan at the lung bases. The lungs and pleural spaces are otherwise clear. No pneumothorax is seen. The skeletal structures are osteopenic. The bony thorax is grossly intact. IMPRESSION: Mild cardiomegaly with no active disease in the chest. ACT 112: Negative or not required by law. Electronically signed by: Luis Duffy M.D. 11/30/2022 5:47 PM
[2022-11-30 17:57] LABS: Hematocrit (blood only) 22.1 % (42.0-52.0); Hemoglobin 6.1 g/dl (14.0-18.0); Mean Corpuscular Hgb Conc 27.6 g/dL (32.0-36.0); Mean Corpuscular Volume 83.4 fL (80.0-100.0); Mean Platelet Volume 12.7 fL (9.4-12.4); Platelet Count 208 K/uL (130-400); RDW Coefficient of Variation 22.5 % (11.5-14.5); RDW Standard Deviation 68.4 fL (36.4-46.3); Red Blood Count 2.65 M/uL (4.70-6.10); White Blood Count 5.24 K/ul (4.8-10.8)
[2022-11-30 18:06] LABS: Albumin Level 3.9 gm/dl (3.4-5.0); BUN Creatinine Ratio 14.4 (10-20); Bilirubin,Total 0.4 mg/dl (0.2-1.0); Calcium 8.2 mg/dl (8.6-10.3); Creatinine Clr Calc Pharmacy 46.2 ml/min; Est GFR (African American) 41.3 ml/min; Est GFR (Non-African American) 35.6 ml/min; Potassium 4.1 mmol/L (3.5-5.1); Total Protein 5.9 gm/dl (6.0-8.3)
[2022-11-30 18:07] LABS: Anisocytosis Present; Basophils # (auto) 0.04 K/uL (0-0.2); Basophils % (auto) 0.8 %; Eosinophils # (auto) 0.06 K/uL (0-0.50); Eosinophils % (auto) 1.1 %; Hypochromasia Present; Immature Granulocytes # (auto) 0.02 K/uL (0.01-0.20); Immature Granulocytes % (auto) 0.4 %; Lymphocytes # (auto) 0.96 K/uL (1.2-3.4); Lymphocytes % (auto) 18.3 %; Monocytes # (auto) 0.42 K/uL (0.11-0.59); Neutrophils # (auto) 3.74 K/uL (1.40-6.50); Neutrophils % (auto) 71.4 %; Ovalocytes 1+; Polychromasia 1+; Tear Drop Cells 1+
[2022-11-30 18:11] LABS: Troponin I High Sensitivity 5.6 pg/ml (0-20)
[2022-11-30 18:17] LABS: Partial Thromboplastin Ratio 0.8; Partial Thromboplastin Time 23.2 Seconds (21.0-31.0); Prothrombin Time 10.9 Seconds (9.0-12.0)
--- NOTE | 2022-11-30 18:21 | Emergency Department Note ---
Impression & Plan Symptomatic anemia, GI bleed, Renal cyst, CKD (chronic kidney disease) stage 3, GFR 30-59 ml/min ED Provider Note NAME: RANJAN CISNEROS AGE: 72 SEX: M : 1950 ARRIVES VIA: Walk-In INFORMANT: Patient, ED PROVIDER(S): Jerson Ascencio MD CHIEF COMPLAINT: Anemia MEDICAL DECISION MAKING: Patient presents due to concern for anemia and was referred here for further evaluation and treatment after being seen in the outpatient setting today. IV was established blood work was obtained and patient was ordered 2 units of PRBCs. Occult rectal exam was tracely positive. PPI bolus and drip ordered. CT of the abdomen pelvis ordered given the patient's abdominal pain. Chest x-ray with cardiomegaly. Patient's CT of the abdomen pelvis shows no abdominal pelvic hemorrhage 2.4 cm upper pole left renal mass reflect complex cyst. Other renal cyst also noted. No other findings. Given the patient's anemia with possible GI bleed I did speak with the on-call hospitalist Dr. Strauss and the patient was admitted to the medicine service. Critical Care: I have personally spent 47 minutes of critical care time in direct management of this patient. This includes bedside care, interpretation of diagnostic studies, and testing, discussion with consultants, patient, and family members, and other require inpatient management activities. This 47 minutes is in excess of all separately billable procedures. Prior /Outside records reviewed: I did review the patient's blood work from earlier today which showed a hemoglobin of 6.1. Normal white count. Platelet count is unremarkable with normal electrolytes. Creatinine 1.8 Differential diagnosis: Diverticulosis, AVM, coagulopathy, colitis, inflammatory bowel disease, mal ignancy, Jeri-Mcclain tear, esophagitis, peptic ulcer disease, variceal bleed, gastritis, epistaxis, fissure, hemorrhoids, as well as other pathologies. Diagnostics, as interpreted by me: ECG: Normal sinus rhythm, rate of 75 normal intervals normal axis no ST elevations or T WI. No significant change for comparison EKG November 2018 Cardiac monitoring: An order was placed for continuous cardiac monitoring. The monitor shows a rate of 62 with sinus rhythm. Patient was placed on pulse oximetry Medical decision rules: None Imaging studies: See below HPI: Patient presents due to concern for lower blood counts. The patient had been seen in outpatient clinic today had outpatient blood work completed which showed his hemoglobin was less than 7. Patient has admitted to increasing bertin rtness of breath as well as fatigability. The patient does not notice any obvious red blood per rectum but does believe that he has some darker stools but does take an iron supplement. Patient denies any chest pains. Patient does not take any blood thinners or NSAIDs. The patient does not take any aspirin or antiplatelets. Patient was seen by Alesia Mullen in the outpatient clinic today and was called to present once his blood work had resulted showing his hemoglobin of 6. Patient does have some associated abdominal pain but is had it for several weeks. No recent falls or trauma. PAST MEDICAL HISTORY: See Below PAST SURGICAL HISTORY: See Below SOCIAL HISTORY: See Below HOME MEDICATIONS: See Below ALLERGIES: See Below VITALS: See Below PHYSICAL EXAMINATION: GENERAL: NAD, wearing a mask, non-toxic. Wearing glasses, hard of hearing EYE EXAM: Normal conjunctiva. PERRL, no anisocoria and EOM's grossly intact w/o pain. NECK: Supple, no nuchal rigidity, no adenopathy, non-tender. No signs of meningismus. FROM of the neck with good chin to chest and neck extension. No stridor. LUNGS: Clear to auscultation. Normal chest wall mechanics. HEART: NSR, no MRG. ABDOMEN: Abdomen soft, moderate diffuse discomfort, no masses, no rebound or guarding. BACK: No CVA TTP. SKIN: No rashes and no bruising. Rectal: No obvious hemorrhoids, no bright red blood or obvious melenic stool, tracely heme positive UPPER EXTREMITIES: Upper extremities are grossly normal. LOWER EXTREMITIES: Grossly normal, no edema. NEURO EXAM: A&O x3, cranial nerves II-XII grossly intact, normal speech, moves all 4 extremities. Past Med/Surg History Medical History Arthritis of spine CAN'T WALK LONG LENGTHS/ HAS TO SIT AND REST CKD (chronic kidney disease) STAGE 3, follows with Nephrology [facility] Margarita h/p ARNOLDO 2018 COPD (chronic obstructive pulmonary disease) Diabetes mellitus, type 2 NIDDM GERD (gastroesophageal reflux disease) controlled Hx of colonic polyp Hyperlipidemia Hypertension Insomnia Numbness and tingling left arm and leg intermittently at random, no blurred vision or facial drooping. --> treated at [facility] through the emergency room per dir ection of PCP. patient had no diagnosis at that time. [facility] neuro suspects cervical radiculopathy-pt refused further testing or physical therapy Obesity Poor historian Restless leg syndrome Sleep apnea CPAP Surgical History History of cardiac cath 10 YEARS AGO - [facility] - NO STENTS/ANGIOPLASTY History of cataract surgery RT/LEFT History of colonoscopy History of discectomy LUMBAR History of left knee replacement History of open reduction and internal fixation (ORIF) procedure left shoulder with hardware. History of right knee joint replacement 05/22/2019 [facility] History of tooth extraction Hx of vasectomy Family History Mother Family history of diabetes mellitus Grandmother (Maternal) Family history of diabetes mellitus Father Family history of stomach cancer Other No family history of adverse response to anesthesia Denies family history of Myocardial infarction Stroke Social History Smoking Status: Former smoker Tobacco Type: Smokeless Tobacco (Dip or Chew) Smoking End Date: 25 years ago; Second Hand Exposure: No; Do You Dip or Chew Tobacco: Yes; Hx Alcohol Use: Yes Alcohol type: beer Hx Substance Use: No Preferred Language: Italian Communication Ability: Effective Communication Ability Comment: PT LUIS, PT GLADIS DOES PHONE INTERVIEW Trimmer Loader Required: No Beliefs That Will Affect Care: None marital status: Current Living Situation: Spouse Other Information That Helps Us Care for You: No Feels Safe at Home: Yes Safety Concerns: Feels Safe At This Time Assistive Devices: CPAP, Denture - Upper, Denture - Lower and Glasses Allergies Allergies Allergy/AdvReac Type Severity Reaction Status Date / Time lisinopril AdvReac Severe ARNOLDO, Verified 11/30/22 20:47 hyperkalemia, ARF - PT DENIES verapamil AdvReac Severe "SHUT HIS Verified 11/30/22 20:47 HEART DOWN" Home Meds Home Medications Medication Instructions Recorded Confirmed glimepiride 4 mg tablet 4 mg PO BID 11/28/18 11/30/22 lovastatin 20 mg tablet 20 mg PO QPM 11/28/18 11/30/22 omeprazole 40 mg capsule,delayed 40 mg PO QAM 11/28/18 11/30/22 release hydralazine 25 mg tablet 50 mg PO BID 04/27/19 11/30/22 acetaminophen 500 mg tablet 1,000 mg PO Q8 PRN pain/fevers 03/09/22 11/30/22 carvedilol 25 mg tablet 25 mg PO BID 03/09/22 11/30/22 empagliflozin 10 mg tablet 10 mg PO QAM 03/09/22 11/30/22 (Jardiance) ferrous sulfate 325 mg (65 mg 325 mg PO QAM 03/09/22 11/30/22 iron) tablet gabapentin 100 mg capsule 100 mg PO QAM 03/09/22 11/30/22 gabapentin 600 mg tablet 600 mg PO BID 03/09/22 11/30/22 isosorbide mononitrate 30 mg 30 mg PO QAM 03/09/22 11/30/22 tablet,extended release 24 hr losartan 100 mg tablet 100 mg PO QAM 03/09/22 11/30/22 metformin 500 mg tablet 500 mg PO BID 03/09/22 11/30/22 torsemide 20 mg tablet 20 mg PO QAM 03/09/22 11/30/22 budesonide 160 mcg-glycopyr 9 1 inh inhalation DIRECTED 11/30/22 11/30/22 mcg-formot 4.8 mcg/actuation HFA inhaler (Breztri Aerosphere) ergocalciferol (vitamin D2) 1,250 50,000 unit PO MONTHLY 11/30/22 11/30/22 mcg (50,000 unit) capsule tizanidine 2 mg tablet 2 mg PO HS PRN MUSCLE SPASMS 11/30/22 11/30/22 Results & Data (ED) Vital Signs Vital Signs - 24 hr 11/30/22 16:45 11/30/22 18:18 11/30/22 18:18 Temperature 37.2 C Temperature Source Temporal Artery Scan Pulse Rate 99 H Pulse Rate [Apical] 77 Respiratory Rate 16 22 Respiratory Effort / Characteristics Non-Labored Non-Labored Spontaneous Respiratory Depth Normal Normal Respiratory Pattern Regular Blood Pressure 149/75 H Blood Pressure [Right Arm] 146/67 H Blood Pressure Mean 99 Blood Pressure Mean [Right Arm] 93 Blood Pressure Position [Right Arm] Lying Pulse Oximetry 93 95 95 Oxygen Delivery Method Room Air Room Air Room Air Sepsis Recent Fever Within 48 Hours No Sepsis New/Unexplained Change in Mental Status No Sepsis Action Taken by Nursing No Action Required 11/30/22 18:19 11/30/22 20:03 11/30/22 20:24 Temperature 37.3 C 36.8 C Temperature Source Oral Oral Pulse Rate 80 78 79 Pulse Rate [Apical] Respiratory Rate 16 16 Respiratory Effort / Characteristics Respiratory Depth Respiratory Pattern Blood Pressure 146/65 H 160/67 H Blood Pressure [Right Arm] Blood Pressure Mean 92 98 Blood Pressure Mean [Right Arm] Blood Pressure Position [Right Arm] Pulse Oximetry 93 94 Oxygen Delivery Method Sepsis Recent Fever Within 48 Hours Sepsis New/Unexplained Change in Mental Status Sepsis Action Taken by Nursing 11/30/22 20:39 11/30/22 20:18 11/30/22 21:13 Temperature 36.6 C 37.2 C 37.2 C Temperature Source Oral Oral Oral Pulse Rate 90 83 79 Pulse Rate [Apical] Respiratory Rate 16 16 16 Respiratory Effort / Characteristics Respiratory Depth Respiratory Pattern Blood Pressure 164/70 H 141/68 H 141/68 H Blood Pressure [Right Arm] Blood Pressure Mean 101 92 92 Blood Pressure Mean [Right Arm] Blood Pressure Position [Right Arm] Pulse Oximetry 94 94 94 Oxygen Delivery Method Sepsis Recent Fever Within 48 Hours Sepsis New/Unexplained Change in Mental Status Sepsis Action Taken by Nursing 11/30/22 21:03 Temperature 36.9 C Temperature Source Oral Pulse Rate 72 Pulse Rate [Apical] Respiratory Rate 16 Respiratory Effort / Characteristics Respiratory Depth Respiratory Pattern Blood Pressure 159/75 H Blood Pressure [Right Arm] Blood Pressure Mean 103 Blood Pressure Mean [Right Arm] Blood Pressure Position [Right Arm] Pulse Oximetry 94 Oxygen Delivery Method Sepsis Recent Fever Within 48 Hours Sepsis New/Unexplained Change in Mental Status Sepsis Action Taken by [facility] Medications Current Medication List: was personally reviewed by me Laboratory Data Attestation: I reviewed the patient's lab results. 11/30/22 17:16 11/30/22 17:16 Lab Results 11/30/22 11/30/22 11/30/22 Range/Units 17:16 17:16 17:16 WBC 5.24 (4.8-10.8) K/ul RBC 2.65 L (4.70-6.10) M/uL Hgb 6.1 L* (14.0-18.0) g/dl Hct 22.1 L (42.0-52.0) % MCV 83.4 (80.0-100.0) fL MCH 23.0 L (25.0-34.0) pg MCHC 27.6 L (32.0-36.0) g/dL RDW Std Deviation 68.4 H (36.4-46.3) fL RDW Coeff of Arvin 22.5 H (11.5-14.5) % Plt Count 208 (130-400) K/uL MPV 12.7 H (9.4-12.4) fL Immature Gran % (Auto) 0.4 % Neut % (Auto) 71.4 % Lymph % (Auto) 18.3 % Howard % (Auto) 8.0 % Eos % (Auto) 1.1 % Baso % (Auto) 0.8 % Neut # (Auto) 3.74 (1.40-6.50) K/uL Lymph # (Auto) 0.96 L (1.2-3.4) K/uL Howard # (Auto) 0.42 (0.11-0.59) K/uL Eos # (Auto) 0.06 (0-0.50) K/uL Baso # (Auto) 0.04 (0-0.2) K/uL Immature Gran # (Auto) 0.02 (0.01-0.20) K/uL Polychromasia 1+ Hypochromasia Present Anisocytosis Present Tear Drop Cells 1+ Ovalocytes 1+ PT 10.9 (9.0-12.0) Seconds INR 1.0 (0.9-1.1) APTT 23.2 (21.0-31.0) Seconds PTT Ratio 0.8 Sodium (136-145) mmol/L Potassium (3.5-5.1) mmol/L Chloride (98-107) mmol/L Carbon Dioxide (21-32) mmol/L Anion Gap (3-11) BUN (6-23) mg/dl Creatinine (0.6-1.4) mg/dl Est Cr Clr Drug Dosing ml/min Est GFR ( Amer) ml/min Est GFR (Non-Af Amer) ml/min BUN/Creatinine Ratio (10-20) Glucose (70-99(Fasting)) mg/dl Calcium (8.6-10.3) mg/dl Total Bilirubin (0.2-1.0) mg/dl AST (13-39) U/L ALT (7-52) U/L Alkaline Phosphatase (34-104) U/L Troponin I High Sens (0-20) pg/ml Total Protein (6.0-8.3) gm/dl Albumin (3.4-5.0) gm/dl Globulin (2.5-4.0) gm/dl Albumin/Globulin Ratio (0.9-2) SARS-CoV-2, RNA, NAAT (NEGATIVE) Blood Type O Positive Blood Type Recheck Antibody Screen NEGATIVE Crossmatch See Detail 11/30/22 11/30/22 11/30/22 Range/Units 17:16 17:21 18:06 WBC (4.8-10.8) K/ul RBC (4.70-6.10) M/uL Hgb (14.0-18.0) g/dl Hct (42.0-52.0) % MCV (80.0-100.0) fL MCH (25.0-34.0) pg MCHC (32.0-36.0) g/dL RDW Std Deviation (36.4-46.3) fL RDW Coeff of Arvin (11.5-14.5) % Plt Count (130-400) K/uL MPV (9.4-12.4) fL Immature Gran % (Auto) % Neut % (Auto) % Lymph % (Auto) % Howard % (Auto) % Eos % (Auto) % Baso % (Auto) % Neut # (Auto) (1.40-6.50) K/uL Lymph # (Auto) (1.2-3.4) K/uL Howard # (Auto) (0.11-0.59) K/uL Eos # (Auto) (0-0.50) K/uL Baso # (Auto) (0-0.2) K/uL Immature Gran # (Auto) (0.01-0.20) K/uL Polychromasia Hypochromasia Anisocytosis Tear Drop Cells Ovalocytes PT (9.0-12.0) Seconds INR (0.9-1.1) APTT (21.0-31.0) Seconds PTT Ratio Sodium 138 (136-145) mmol/L Potassium 4.1 (3.5-5.1) mmol/L Chloride 104 (98-107) mmol/L Carbon Dioxide 26 (21-32) mmol/L Anion Gap 8 (3-11) BUN 27 H (6-23) mg/dl Creatinine 1.87 H (0.6-1.4) mg/dl Est Cr Clr Drug Dosing 46.2 ml/min Est GFR ( Amer) 41.3 ml/min Est GFR (Non-Af Amer) 35.6 ml/min BUN/Creatinine Ratio 14.4 (10-20) Glucose 250 H (70-99(Fasting)) mg/dl Calcium 8.2 L (8.6-10.3) mg/dl Total Bilirubin 0.4 (0.2-1.0) mg/dl AST 12 L (13-39) U/L ALT 15 (7-52) U/L Alkaline Phosphatase 33 L (34-104) U/L Troponin I High Sens 5.6 (0-20) pg/ml Total Protein 5.9 L (6.0-8.3) gm/dl Albumin 3.9 (3.4-5.0) gm/dl Globulin 2.0 L (2.5-4.0) gm/dl Albumin/Globulin Ratio 2.0 (0.9-2) SARS-CoV-2, RNA, NAAT NEGATIVE (NEGATIVE) Blood Type Blood Type Recheck O Positive Antibody Screen Crossmatch Administered Medications Carvedilol (Carvedilol 25 Mg Tab) 25 mg PO BID MCKENZIE Stop: 12/31/22 00:15 Last Admin: 12/01/22 12:01 Dose: 25 mg Documented By: Admin: 12/01/22 00:57 Dose: 25 mg Documented By: PHILIPPE Ferrous Sulfate (Ferrous Sulfate 325 Mg Tab) 325 mg PO QAM MCKENZIE Stop: 12/31/22 08:59 Last Admin: 12/01/22 08:49 Dose: 325 mg Documented By: CLAUDE Fluticasone Furoate (Fluticasone Furoate 200mcg 14 Puffs/Inhaler) 1 puffs INH DAILY MCKENZIE Stop: 12/31/22 08:59 Last Admin: 12/01/22 08:49 Dose: 1 puffs Documented By: CLAUDE Gabapentin (Gabapentin 600 Mg Tab) 600 mg PO BID@1200,2100 MCKENZIE Stop: 12/31/22 00:15 Last Admin: 12/01/22 13:53 Dose: 600 mg Documented By: Admin: 12/01/22 00:57 Dose: 600 mg Documented By: PHILIPPE Gabapentin (Gabapentin 100 Mg Cap) [facility] [place]: 12/31/22 08:59 Last Admin: 12/01/22 08:49 Dose: 100 mg Documented By: CLAUDE Hydralazine HCl (Hydralazine Tab 50 Mg Tab) 50 mg PO BID [facility] Stop: 12/31/22 08:59 Last Admin: 12/01/22 08:49 Dose: 50 mg Documented By: CLAUDE Sodium Chloride (Nss 1000ml) 1,000 mls @ 75 mls/hr IV .[id number] [facility] Stop: 12/31/22 00:15 Last Admin: 12/01/22 01:40 Dose: 75 mls/hr Documented By: PHILIPPE Insulin Aspart (Insulin Aspart Per Unit Charge) 0 units SC Q6 [facility] Stop: 12/31/22 00:29 Last Admin: 12/01/22 12:28 Dose: 3 units Documented By: CLAUDE Co-signed By: OSWALDO Admin: 12/01/22 06:33 Dose: 1 units Documented By: FIORELLA Co-signed By: REMINGTON Admin: 12/01/22 01:10 Dose: 2 units Documented By: PHILIPPE Co-signed By: SETH Isosorbide Mononitrate (Isosorbide Howard Extended Rel 30 Mg Tabcr) 30 mg PO [facility] Stop: 12/31/22 08:59 Last Admin: 12/01/22 08:49 Dose: 30 mg Documented By: CLAUDE Losartan Potassium (Losartan Potassium 50 Mg Tab) 100 mg PO [facility] Stop: 12/31/22 08:59 Last Admin: 12/01/22 08:49 Dose: 100 mg Documented By: CLAUDE Octreotide Acetate (Octreotide Acetate 100 Mcg/Ml Vial) 50 mcg SQ BID [facility] Stop: 12/31/22 10:59 Last Admin: 12/01/22 12:28 Dose: 50 mcg Documented By: CLAUDE Pantoprazole Sodium (Pantoprazole 40 Mg Tab) 40 mg PO BID [facility] Stop: 12/31/22 11:44 Last Admin: 12/01/22 12:28 Dose: 40 mg Documented By: CLAUDE Torsemide (Torsemide 20 Mg Tab) 20 [facility] [place] [facility] [place] Stop: 12/31/22 08:59 Last Admin: 12/01/22 08:49 Dose: 20 mg Documented By: CLAUDE Umeclidinium/Vilanterol (Umeclidinium/Vilanterol 62.5/25mcg 7 Puffs/Inhaler) 1 puffs INH DAILY MCKENZIE Stop: 12/31/22 08:59 Last Admin: 12/01/22 08:49 Dose: 1 puffs Documented By: CLAUDE Discontinued Medications Furosemide (Furosemide 40 Mg/4 Ml Vial) 40 mg IV ONE ONE Stop: 12/01/22 00:17 Last Admin: 12/01/22 01:12 Dose: 40 mg Documented By: PHILIPPE Pantoprazole Sodium (Protonix Bolus/Drip) 0 mls @ 1 mls/hr IV ONE STA Stop: 11/30/22 19:16 Last Admin: 11/30/22 20:21 Dose: Not Given Documented By: PHILIPPE Pantoprazole Sodium 80 mg/ (Dextrose) 120 mls @ 400 mls/hr IV NOW ONE Stop: 11/30/22 19:32 Last Infusion: 11/30/22 20:41 Dose: 0 mls/hr Documented By: Admin: 11/30/22 20:21 Dose: 400 mls/hr Documented By: PHILIPPE Pantoprazole Sodium 40 mg/ (Dextrose) 100 mls @ 20 mls/hr IV Q5H MCKENZIE Stop: 12/30/22 19:29 Last Infusion: 12/01/22 12:40 Dose: 0 mg/hr, 0 mls/hr Documented By: Admin: 12/01/22 11:03 Dose: 8 mg/hr, 20 mls/hr Documented By: Infusion: 12/01/22 10:47 Dose: 8 mg/hr, 20 mls/hr Documented By: Admin: 12/01/22 05:47 Dose: 8 mg/hr, 20 mls/hr Documented By: Infusion: 12/01/22 05:37 Dose: 8 mg/hr, 20 mls/hr Documented By: Admin: 12/01/22 00:37 Dose: 8 mg/hr, 20 mls/hr Documented By: Infusion: 12/01/22 00:37 Dose: 8 mg/hr, 20 mls/hr Documented By: Infusion: 11/30/22 23:35 Dose: 8 mg/hr, 20 mls/hr Documented By: Admin: 11/30/22 20:40 Dose: 8 mg/hr, 20 mls/hr Documented By: PHILIPPE Imaging Data Radiologist's Impression: Chest X-Ray 11/30/22 16:48 SINGLE VIEW CHEST CLINICAL HISTORY: GI bleeding FINDINGS: An AP, portable, upright chest radiograph is compared to study dated 11/29/2018. The heart is mildly enlarged noting atherosclerotic calcification of the thoracic aorta. The pulmonary vasculature is noncongested. Chronic interstitial thickening is similar to previous. Scarring/atelectasis is noted at the lung bases. The lungs and pleural spaces are otherwise clear. No pneumothorax is seen. The skeletal structures are osteopenic. The bony thorax is grossly intact. IMPRESSION: Mild cardiomegaly with no active disease in the chest. ACT 112: Negative or not required by law. Electronically signed by: Luis Duffy M.D. 11/30/2022 5:47 PM Discharge Plan Visit Data Chief Complaint: Referred by Doctor Stated Complaint: REF BY DOC,LOW BLOOD ED Provider: Jerson Ascencio Discharge Problem: Symptomatic anemia, GI bleed, Renal cyst, CKD (chronic kidney disease) stage 3, GFR 30-59 ml/min Patient Disposition: Admitted As Inpatient Discharge Instructions Interventions: ED Discharge Assessment Last Done: 12/01/22 00:16
[2022-11-30] MEDS ORDERED: SODIUM CHLORIDE 0.9% 250 ML IV PRN (18:46)
[2022-11-30] MEDS ORDERED: PANTOPRAZOLE BOLUS/DRIP 1 EACH IV STA (19:15)
[2022-11-30] MEDS ORDERED: PANTOprazole 80 MG in DEXTROSE 5% 100 ML IV ONE (19:15)
--- NOTE | 2022-11-30 20:01 | CT Scan Report ---
Exam(s): CT ABDOMEN + PELVIS Without Contrast EXAM: CT Abdomen and Pelvis Without Intravenous Contrast CLINICAL HISTORY: Reason for exam: ab pain, anemia. TECHNIQUE: Axial computed tomography images of the abdomen and pelvis without intravenous contrast. CTDI is 26.52 mGy and DLP is 1368.5 mGy-cm. Automated exposure control was utilized for the study. A dose lowering technique was utilized adhering to the principles of ALARA. COMPARISON: No relevant prior studies available. FINDINGS: The lung bases demonstrate mild atelectasis. No acute infiltrate. Relative hyperdensity of the interventricular septum supports provided history of anemia. 6 mm right lobe hepatic hypodensity that is too small to characterize (series 2, image 27). Liver calcifications near the dome suggesting old granulomatous disease. The biliary tree, pancreas, spleen, and adrenal glands are unremarkable for noncontrast technique. 2.4 cm slightly hyperdense lesion to the upper pole of the left kidney on series 2, image 31. This could reflect a complex cyst, but is now at definitively characterized here. Other simple left renal cysts. Large exophytic cyst arising from the lower pole of the right kidney measuring 13.4 x 10.7 cm. No hydronephrosis. There is no bowel obstruction or perforation. Several colonic diverticula without diverticulitis. The appendix is unremarkable. Aortoiliofemoral atherosclerosis without aneurysm. No evidence of intra- abdominal or intrapelvic hemorrhage to explain anemia. Advanced lumbar spondylosis with degeneration most pronounced at L5-S1. No acute fracture. IMPRESSION: No abdominopelvic hemorrhage to explain anemia. 2.4 cm upper pole left renal mass could reflect a complex cyst, but would recommend nonemergent ultrasound to further assess. Simple bilateral renal cysts including 13.4 cm cyst extending from the lower pole the right kidney. 6 mm right lobe hepatic hypodensity that is too small to characterize. Incidental findings as detailed above. Electronically signed by: Jun Rivero M.D. 11/30/22 20:00 PM
[2022-11-30] MEDS: PANTOprazole 40 MG in DEXTROSE 5% 100 ML IV SCH (20:40)
--- NOTE | 2022-11-30 23:18 | History and Physical Report ---
DATE OF ADMISSION: 11/30/2022. CHIEF COMPLAINT: Symptomatic anemia. HISTORY OF PRESENT ILLNESS: This is a 72-year-old male with past medical history significant for type 2 diabetes, hyperlipidemia, COPD, obstructive sleep apnea, on CPAP, chronic kidney disease stage III, history of CAD, GERD, morbid obesity, vitamin D deficiency, osteoarthritis, bilateral leg edema, bilateral lumbar radiculopathy, history of Lyme disease, spinal stenosis, primary insomnia, who presents with symptomatic anemia. The patient was having ongoing shortness of breath with exertion for the last couple of weeks and he had a similar episode when he had symptomatic anemia in the past. He went to see cardiology last Tuesday for a regular visit and noted to have shortness of breath on exertion and as per Cardiology notes, he had prior testing to include dobutamine stress test x2, which was unremarkable. He was started on iron supplements and stools are black, but his Hemoccult was positive and he had EGD performed in April 2022 with AVM ablation and cardiology referred him to GI. GI saw him today and outpatient labs showed hemoglobin of 6, so he was advised to come to the ER. In the ER, also his hemoccult is slightly_ positive and his hemodynamics are stable, saturating okay. His hemoglobin 6.1 in the ER and CT abdomen and pelvis is okay. He is getting 2 units of PRBC. Currently, resting comfortably, hemodynamically stable. He has some chronic cough. He has no chest pain, no nausea, no vomiting, no abdominal pain. No diarrhea or constipation, but has some black stools. Normal bladder movements. Has swelling in the legs. No headache, no blurred visions, no earache. Somewhat hard of hearing. is in the room. ALLERGIES: LISINOPRIL, VERAPAMIL. PAST MEDICAL HISTORY: As mentioned above. PAST SURGICAL HISTORY: Colonoscopy, EGD, injection of the lumbosacral spine, small bowel endoscopy. MEDICATIONS: The patient seems to be on tylenol 1000 mg p.o. q. 8 hours p.r.n.; budesonide, glycopyrrolate, formoterol one inhalation as directed; carvedilol 25 mg p.o. b.i.d.; vitamin D 50,000 units p.o. monthly; ferrous sulfate 325 mg p.o. a.m.; gabapentin 600 mg p.o. b.i.d.; gabapentin 100 mg p.o. a.m.; glimepiride 4 mg p.o. b.i.d.; hydralazine 50 mg p.o. b.i.d.; isosorbide mononitrate 30 mg p.o. a.m.; Jardiance 10 mg p.o. a.m.; losartan 100 mg p.o. a.m.; lovastatin 20 mg p.o. p.m.; metformin 500 mg p.o. b.i.d.; omeprazole 40 mg p.o. a.m.; tizanidine 2 mg p.o. at bedtime p.r.n.; torsemide 20 mg p.o. daily. FAMILY HISTORY: Significant for mother of natural causes at age of 87; father had stomach cancer, at age of 62. SOCIAL HISTORY: . Quit smoking in 1994, smoked 1 pack a day for 20 years. Alcohol, rarely. No drug use. REVIEW OF SYSTEMS: As per HPI. Rest of the review of systems is negative. PHYSICAL EXAMINATION: GENERAL: The patient is obese, not in acute distress. VITAL SIGNS: Temperature 37.2, pulse 79, respiratory rate 16, blood pressure 141/68, oxygen 94% on room air. HEENT: Pupils equal, round, and reactive to light. Oral mucosa moist. NECK: No JVD, no neck masses. CARDIOVASCULAR: S1 and S2 heard. Regular rate and rhythm. No murmur, no gallop. RESPIRATORY SYSTEM: Normal AP diameter. No accessory muscle use. No wheezing, no crackles. ABDOMEN: Soft, bowel sounds present, nontender, no distention. CENTRAL NERVOUS SYSTEM: Alert and oriented. Speech is clear. No facial droop. Obeys simple commands. Moves extremities. EXTREMITIES: Bilateral lower extremity pedal edema present, no erythema seen. LABORATORY DATA: WBC 5.2, hemoglobin 6.1, hematocrit 22.1, platelets 208. PT 10.9, INR 1, APTT 23.2. Sodium 138, potassium 4.1, chloride 104, bicarbonate 26, BUN 27, creatinine 1.8, serum glucose 250, calcium 8.2, total bilirubin 0.4, AST 12, ALT 15, alkaline phosphatase 33. Troponin I high sensitivity 5.6. SARS-CoV-2 rapid test negative. IMAGING DATA: CT of the abdomen and pelvis without contrast shows a 2.4 cm upper pole left renal mass, could reflect a complex cyst. recommend nonemergent ultrasound to further assess. Simple bilateral renal cysts. A 6 cm right lower lobe hypodensity that is too small to characterize. EKG: Normal sinus rhythm at a rate of 75, no acute ST changes seen. ASSESSMENT AND PLAN: This is a 72-year-old male who presents with symptomatic anemia. 1. Symptomatic anemia: History of arteriovenous malformation ablation in the mid jejunum in April 2022. Hemoglobin 6.1. Ordered 2 units of PRBCs by the ER, which will be given and follow H and H q. 6 hours. Continue Protonix drip and n.p.o., IV fluids, gentle fluids, and consult GI in the a.m. Monitor in the tele floor. 2. History of hypertension: Continue his home medication of Coreg, hydralazine, Imdur, losartan, withholding parameters. 3. History of chronic lower extremity edema: As per Cardiology notes in [facility], possible from chronic diastolic dysfunction, obesity, chronic kidney disease, venous insufficiency, and increased sodium intake. Currently on torsemide, which will be continued. Will follow. 4. History of Hyperlipidemia: Currently, not on any medications. 5. Diabetes: Will follow HbA1c levels. Currently n.p.o. Will hold his home glipizide, Jardiance, and metformin. Placed on sliding scale. Follow the blood sugars. 6. Chronic kidney disease stage III: Presents with creatinine of 1.8, close to his baseline. Will follow the repeat labs. If worsening, will hold his torsemide and losartan. 7. Obstructive sleep apnea: On CPAP at bedtime. 8. History of chronic obstructive pulmonary disease: Continue home inhalers. Will continue DuoNeb p.r.n. since has mild wheezing. 9. History of coronary artery disease: Currently on beta addison. 10. Morbid obesity: Needs counseling. 11. The patient also has renal cyst on the CAT scan: When stable, will get the renal ultrasound. 12. Deep venous thrombosis prophylaxis: Sequential compression devices for now. DISPOSITION: Closely monitor in the tele floor. Level 1 full code. Expect to discharge home and follow with family doctor. Job ID: [id number] [facility]
[2022-12-01] MEDS ORDERED: GLUCOSE 40% GEL 15 GM TUBE PO PRN (00:16)
[2022-12-01] MEDS ORDERED: GLUCAGON FOR INJ 1 MG VIAL SQ PRN (00:16)
[2022-12-01] MEDS ORDERED: GLUCOSE 10 TAB/TUBE PO PRN (00:16)
[2022-12-01] MEDS ORDERED: ALBUT/IPRATROP 3MG/0.5MG NEB 3 ML VIAL NEB PRN (00:16)
[2022-12-01] MEDS ORDERED: FUROSEMIDE 40 MG/4 ML VIAL IV ONE (00:16)
[2022-12-01] MEDS ORDERED: DEXTROSE 50% 50 ML SYRINGE IV PRN (00:16)
[2022-12-01] MEDS ORDERED: CARBOHYDRATES FOR HYPOGLYCEMIA PO PRN (00:16)
[2022-12-01] MEDS ORDERED: tiZANidine HCL 4 MG TABLET PO PRN (00:16)
[2022-12-01] MEDS ORDERED: NITROGLYCERIN SL 0.4 MG/TAB TAB SL PRN (00:16)
[2022-12-01] MEDS ORDERED: ACETAMINOPHEN 325 MG TAB PO PRN (00:16)
[2022-12-01] MEDS ORDERED: PANTOprazole 40 MG in DEXTROSE 5% 100 ML IV SCH (00:16)
[2022-12-01] MEDS ORDERED: NON-FORMULARY MEDICATION (Budesonide-Glycopyr-Formoterol [Breztri Aerosphere] 160-9-4.8 mc INH SCH (00:16)
[2022-12-01] MEDS: PANTOprazole 40 MG in DEXTROSE 5% 100 ML IV SCH ×3 (00:37→11:03)
[2022-12-01] MEDS: GABAPENTIN 600 MG TAB PO SCH ×3 (00:57→20:28)
[2022-12-01] MEDS: carvediloL 25 MG TAB PO SCH ×3 (00:57→20:52)
[2022-12-01] MEDS: INSULIN ASPART PER UNIT CHARGE SC SCH ×6 (01:10→20:31)
[2022-12-01] MEDS: SODIUM CHLORIDE 0.9% 1000ML 1,000 ML IV SCH ×2 (01:40→16:11)
[2022-12-01 06:01] LABS: Basophils # (auto) 0.05 K/uL (0-0.2); Basophils % (auto) 0.8 %; Eosinophils % (auto) 1.6 %; Hematocrit (blood only) 25.7 % (42.0-52.0); Hemoglobin 7.5 g/dl (14.0-18.0); Immature Granulocytes # (auto) 0.01 K/uL (0.01-0.20); Immature Granulocytes % (auto) 0.2 %; Lymphocytes % (auto) 19.2 %; Mean Corpuscular Hgb Conc 29.2 g/dL (32.0-36.0); Mean Corpuscular Volume 82.4 fL (80.0-100.0); Mean Platelet Volume 12.2 fL (9.4-12.4); Monocytes # (auto) 0.56 K/uL (0.11-0.59); Neutrophils # (auto) 4.32 K/uL (1.40-6.50); Neutrophils % (auto) 69.2 %; Platelet Count 174 K/uL (130-400); RDW Coefficient of Variation 20.6 % (11.5-14.5); RDW Standard Deviation 61.2 fL (36.4-46.3); Red Blood Count 3.12 M/uL (4.70-6.10); White Blood Count 6.24 K/ul (4.8-10.8)
[2022-12-01 06:14] LABS: BUN Creatinine Ratio 14.8 (10-20); Calcium 8.1 mg/dl (8.6-10.3); Creatinine Clr Calc Pharmacy 50.5 ml/min; Est GFR (African American) 46.7 ml/min; Est GFR (Non-African American) 40.3 ml/min; Magnesium 2.2 mg/dl (1.7-2.4); Potassium 3.9 mmol/L (3.5-5.1)
[2022-12-01 06:27] LABS: Anisocytosis Present; Hypochromasia Present; Ovalocytes 1+; Tear Drop Cells 1+
[2022-12-01] MEDS ORDERED: SODIUM CHLORIDE 0.9% 250 ML IV PRN (07:16)
[2022-12-01] MEDS: ISOSORBIDE MONO EXTENDED REL 30 MG TABCR PO SCH (08:49)
[2022-12-01] MEDS: FLUTICASONE FUROATE 200MCG 14 PUFFS/INHALER INH SCH (08:49)
[2022-12-01] MEDS: LOSARTAN POTASSIUM 50 MG TAB PO SCH (08:49)
[2022-12-01] MEDS: UMECLIDINIUM/VILANTEROL 62.5/25MCG 7 PUFFS/INHALER INH SCH (08:49)
[2022-12-01] MEDS: hydrALAZINE TAB 50 MG TAB PO SCH ×2 (08:49→20:28)
[2022-12-01] MEDS: GABAPENTIN 100 MG CAP PO SCH (08:49)
[2022-12-01] MEDS: FERROUS SULFATE 325 MG TAB PO SCH (08:49)
[2022-12-01] MEDS: TORSEMIDE 20 MG TAB PO SCH (08:49)
[2022-12-01 08:53] LABS: Estimated Average Glucose 151 mg/dl; Hemoglobin A1C 6.9 % (4.5-5.6)
--- NOTE | 2022-12-01 09:38 | Electrocardiogram Report ---
Test Reason : Blood Pressure : / mmHG Vent. Rate : 075 BPM Atrial Rate : 075 BPM P-R Int : 128 ms QRS Dur : 084 ms QT Int : 384 ms P-R-T Axes : 069 054 050 degrees QTc Int : 428 ms Normal sinus rhythm Normal ECG When compared with ECG of 29-NOV-2018 13:26, No significant change Confirmed by Jason León ([id number]) on 12/01/2022 9:37:36 AM Referred By: Teddy Mullen Confirmed By:Jason León
--- NOTE | 2022-12-01 11:01 | Gastrointestinal Consultation ---
Date of Consultation December 01, 2022 Assessment & Plan (1) Anemia: Pt is a 72 male currently admitted for anemia, heme positive stools. He has hx of CKD, AVMs, on ferrous sulfate 325mg daily. - Monitor blood ct and transfuse prn - Advance diet as tolerated - Start Octreotide 50mcg BID; will transition to Octreotide LAR 10mg IM [id number] in OP setting - Likely needs Iron infusion, will refer to Hematology in OP setting - Small bowel enteroscopy on 12/06. 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 The patient last had a colonoscopy in 2020 notable for several colonic polyps. He last had an enteroscopy in April 2022 notable for questionable AVMs within the Jejunum. The patient has been symptomatic as an outpatient and is undergoing frequent lab draws. She was found to have a worsening anemia admiss ion was recommended. The patient denies having hematochezia or dark sticky stool. Impression Patient with occult gastrointestinal bleeding likely result of arteriovenous malformations of the small intestine. This can be a quite vexing problem for many patients, as he has not improved significantly with endoscopic therapy I wonder if medical therapy with use of octreotide may be of benefit for this patient for long-term. I would also recommend outpatient evaluation by hematology to see if he would benefit from IV iron supplementation. Plan Octreotide 50 mcg bid (will need to transition to an LAR depot as an OP with Ms. Mullen) OP hematology referral for IV iron infusions Colonsocopy to be scheduled OP enteroscopy as previously scheduled (suspect this may be of low yield) please call with any questions, gi to sign off. History of Present Illness Reason for Consultation: Anemia, heme positive stools Requesting Physician: Dr. Oscar Mckeon Attending Physician: Dr. Nhan Underwood History of Present Illness Pt is a 72 yo male w PMHs of DM II, HLD, COPD, GUS on CPAP, CKD III, CAD, GERD, Lyme's, and AVMs who was referred to ED for critical OP bloodwork which showed Hgb of 6. Repeat labs here confirmed anemia, Hgb 6.5, He was having symptoms of SOB on ambulation. Denies any CP, abd pain, n/v. On Ferrous Sulfate 325mg PO daily and since taking this he noticed formed black stools. Denies tarry stools, rectal bleeding. Stool was heme postiive in ED. He received 2U PRBC transfusion w response on blood ct. CT abd/pelvis wo intraabdominal bleeding. Last EGD and VCE in 2021 w findings of AVMs. Colonoscopy in 2020 w findings of adenomatous colon polyps. He has been scheduled for OP small bowel enteroscopy on 12/06. Allergies Allergy/AdvReac Type Severity Reaction Status Date / Time lisinopril AdvReac Severe ARNOLDO, Verified 11/30/22 20:47 hyperkalemia, ARF - PT DENIES verapamil AdvReac Severe "SHUT HIS Verified 11/30/22 20:47 HEART DOWN" Home Medications Medication Instructions Recorded Confirmed Type glimepiride 4 mg tablet 4 mg PO BID 11/28/18 11/30/22 History lovastatin 20 mg tablet 20 mg PO QPM 11/28/18 11/30/22 History omeprazole 40 mg capsule,delayed 40 mg PO QAM 11/28/18 11/30/22 History release hydralazine 25 mg tablet 50 mg PO BID 04/27/19 11/30/22 History acetaminophen 500 mg tablet 1,000 mg PO Q8 PRN pain/fevers 03/09/22 11/30/22 History carvedilol 25 mg tablet 25 mg PO BID 03/09/22 11/30/22 History empagliflozin 10 mg tablet 10 mg PO QAM 03/09/22 11/30/22 History (Jardiance) ferrous sulfate 325 mg (65 mg 325 mg PO QAM 03/09/22 11/30/22 History iron) tablet gabapentin 100 mg capsule 100 mg PO QAM 03/09/22 11/30/22 History gabapentin 600 mg tablet 600 mg PO BID 03/09/22 11/30/22 History isosorbide mononitrate 30 mg 30 mg PO QAM 03/09/22 11/30/22 History tablet,extended release 24 hr losartan 100 mg tablet 100 mg PO QAM 03/09/22 11/30/22 History metformin 500 mg tablet 500 mg PO BID 03/09/22 11/30/22 History torsemide 20 mg tablet 20 mg PO QAM 03/09/22 11/30/22 History budesonide 160 mcg-glycopyr 9 1 inh inhalation DIRECTED 11/30/22 11/30/22 History mcg-formot 4.8 mcg/actuation HFA inhaler (Breztri Aerosphere) ergocalciferol (vitamin D2) 1,250 50,000 unit PO MONTHLY 11/30/22 11/30/22 History mcg (50,000 unit) capsule tizanidine 2 mg tablet 2 mg PO HS PRN MUSCLE SPASMS 11/30/22 11/30/22 History Patient History Medical History Arthritis of spine CAN'T WALK LONG LENGTHS/ HAS TO SIT AND REST CKD (chronic kidney disease) STAGE 3, follows with Nephrology [facility] Екатерина Avila h/p ARNOLDO 2018 COPD (chronic obstructive pulmonary disease) Diabetes mellitus, type 2 NIDDM GERD (gastroesophageal reflux disease) controlled Hx of colonic polyp Hyperlipidemia Hypertension Insomnia Numbness and tingling left arm and leg intermittently at random, no blurred vision or facial dr ooping. --> treated at [facility] through the emergency room per direction of PCP. patient had no diagnosis at that time. [facility] neuro suspects cervical radiculopathy-pt refused further testing or physical therapy Obesity Poor historian Restless leg syndrome Sleep apnea CPAP Surgical History History of cardiac cath 10 YEARS AGO - [facility] - NO STENTS/ANGIOPLASTY History of cataract surgery RT/LEFT History of colonoscopy History of discectomy LUMBAR History of left knee replacement History of open reduction and internal fixation (ORIF) procedure left shoulder with hardware. History of right knee joint replacement 05/22/2019 [facility] History of tooth extraction Hx of vasectomy Family History Mother Family history of diabetes mellitus Grandmother (Maternal) Family history of diabetes mellitus Father Family history of stomach cancer Other No family history of adverse response to anesthesia Denies family history of Myocardial infarction Stroke Social History Smoking Status: Former smoker Tobacco Type: Smokeless Tobacco (Dip or Chew) Smoking End Date: 25 years ago; Second Hand Exposure: No; Do You Dip or Chew Tobacco: Yes; Hx Alcohol Use: Yes Alcohol type: beer Hx Substance Use: No Preferred Language: Setswana Communication Ability: Effective Communication Ability Comment: PT OSAGE, PT GLADIS DOES PHONE INTERVIEW Scroll Shear Operator Required: No Beliefs That Will Affect Care: None marital status: Current Living Situation: Spouse Other Information That Helps Us Care for You: No Feels Safe at Home: Yes Safety Concerns: Feels Safe At This Time Assistive Devices: Denture - Upper, Denture - Lower and Glasses Review of Systems Review of Systems: All systems reviewed & are unremarkable except as noted in HPI & below Physical Exam Constitutional: WD/WN, vitals as above well groomed, cooperative and comfortable Eyes: PERRL, conjunctivae normal, anicteric sclerae ENMT: external ear and nose normal, oropharynx normal Respiratory: normal respiratory effort, lungs clear to auscultation Cardiovascular: RRR, no murmur, no edema Gastrointestinal (Abdomen): normal bowel sounds, soft, nontender, no hepatosplenomegaly Skin: no rashes, warm and dry no jaundice Psychiatric: A+Ox3, euthymic affect Lymphatic: no lymphedema Results & Data Vital Signs (Past 12 Hours) Vital Signs Temp Pulse Pulse Resp BP BP BP 12/01/22 10:11 36.7 C 78 20 151/65 H 12/01/22 09:56 67 20 157/75 H 12/01/22 09:30 36.8 C 68 20 157/75 H 12/01/22 07:31 37.0 C 73 19 134/73 12/01/22 02:04 37.0 C 76 16 162/84 H 12/01/22 01:32 37.3 C 71 16 158/76 H 12/01/22 01:03 36.9 C 81 16 178/87 H 12/01/22 00:34 36.9 C 81 16 178/87 H 12/01/22 00:33 37.5 C 78 16 160/85 H 12/01/22 00:29 78 12/01/22 00:05 37.3 C 77 16 167/74 H 11/30/22 23:49 37.1 C 79 16 161/85 H 11/30/22 23:34 37.4 C 70 16 164/76 H 11/30/22 23:27 37.4 C 75 16 164/76 H 11/30/22 22:59 37.5 C 76 16 164/76 H Pulse Ox O2 Del Method O2 Flow Rate 12/01/22 10:11 93 12/01/22 09:56 92 0 12/01/22 09:30 12/01/22 07:31 95 Room Air 12/01/22 02:04 95 Room Air 12/01/22 01:32 94 12/01/22 01:03 94 12/01/22 00:34 94 12/01/22 00:33 95 12/01/22 00:29 12/01/22 00:05 94 11/30/22 23:49 95 11/30/22 23:34 94 Room Air 11/30/22 23:27 96 11/30/22 22:59 95
[2022-12-01] MEDS: PANTOprazole 40 MG TAB PO SCH ×2 (12:28→20:29)
[2022-12-01] MEDS: OCTREOTIDE ACETATE 100 MCG/ML VIAL SQ SCH ×2 (12:28→20:48)
[2022-12-01 13:22] LABS: Hematocrit (blood only) 29.3 % (42.0-52.0); Hemoglobin 8.6 g/dl (14.0-18.0)
--- NOTE | 2022-12-01 15:47 | Ultrasound Report ---
RENAL ULTRASOUND CLINICAL HISTORY: Left renal mass, right renal cyst. COMPARISON STUDY: CT of the abdomen and pelvis November 30, 2022. TECHNIQUE: Sonography of the kidneys and the urinary bladder was performed. FINDINGS: The right kidney measures 10.9 x 6.4 x 6 cm and the left kidney measures 11.1 x 5.5 x 5.2 c m. There is no hydronephrosis. No renal calculi are identified. Anechoic right renal lesions reflect cysts. The largest is a 13.1 cm exophytic lesion arising from the lower pole of the right kidney. Thi s corresponds to the largest cyst shown on CT. Left kidney is partially obscured but several left edil al lesions measure up to 1.9 cm and favor cysts. One-to-one correlation with the CT is difficult give n multiplicity of cysts. Therefore, the 2.1 cm hyperdense lesion within the upper pole remains indete rminate but probably reflects a hyperdense cyst. IMPRESSION: 1. Multiple bilateral renal cysts, including a 13.1 cm right lower pole cyst. 2. Evaluation of the 2.1 cm hypodense lesion within the upper pole of the left kidney is difficult gi yvonne multiplicity of cysts. This favors a hyperdense cyst. A solid renal lesion cannot be completely e xcluded. Nonemergent renal protocol CT is recommended. ACT 112: Negative or not required by law. Electronically signed by: Riky Smith M.D. 12/01/2022 3:45 PM
--- NOTE | 2022-12-01 17:07 | Hospitalist Progress Note ---
Date of Service December 01, 2022 Assessment & Plan (1) Symptomatic anemia: (2) GI bleed: (3) Renal cyst: Plan Patient is a 72 yr male who presents with symptomatic anemia. Symptomatic anemia: Occult GI bleed likely secondary to AVMs of small intestine H/O AVMs S/P ablation of mid jejunum in Apr 2022 Iron deficiency anemia S/P 3 units PRBCs Continue octreotide Continue Protonix Appreciate GI input Enteroscopy, colonoscopy scheduled as outpatient Appreciate GI input Monitor H&H and transfuse as needed Continue iron supplements Needs follow-up with GI upon discharge Renal Cysts -Renal USD:Multiple bilateral renal cysts, including a 13.1 cm right lower pole cyst. Evaluation of the 2.1 cm hypodense lesion within the upper pole of the left kidney is difficult given multiplicity of cysts. This favors a hyperdense cyst. A solid renal lesion cannot be completely excluded. Nonemergent renal protocol CT is recommended. -Follow up as outpatient Hypertension: Continue Coreg, hydralazine, Imdur, losartan Chronic lower extremity edema Possible chronic diastolic dysfunction, Chronic venous insufficiency Continue torsemide Monitor volume status DM II HbA1C: 6.9 Hold PO meds Continue insulin while hospitalized Monitor BGs CKD III Cr at baseline Monitor renal function Avoid nephrotoxic agents as able GUS on CPAP at bedtime. COPD No signs of exacerbation Continue home inhalers CAD Morbid obesity BMI 36 Continue home medications DVT Px: SCDs for now Code Status Full Code Admission and Anticipated Discharge Date Admission Date: November 30, 2022 Subjective Patient is seen and examined at bedside Reports chronic black stools which she attributes to iron supplements Denies any chest pain, dyspnea, dizziness, nausea, abdominal pain No other complaints Was receiving blood transfusion this morning Review of Systems Review of Systems: All systems reviewed & are unremarkable except as noted in Subjective Physical Exam Physical Exam: Physical Exam: Vitals signs as noted above General Appearance:Obese, no apparent distress Head: normocephalic, Atraumatic Eyes: normal inspection, EOMI Neck: supple, Trachea midline Respiratory/Chest: Normal breath sounds, CTA, No accessory muscle use Cardiovascular: S1, S2, No murmur Abdomen/GI:Soft, Non tender, Bowel sounds present Extremities/Musculoskeletal:normal inspection, no edema Neurologic/Psych:AAOX3, grossly no focal neurological deficits Skin: normal color, warm Results & Data Results & Data Vital Signs (Past 12 Hours) Vital Signs Temp Pulse Pulse Resp BP BP Pulse Ox 12/01/22 15:44 36.9 C 58 L 19 119/63 96 12/01/22 11:41 36.9 C 63 20 149/69 H 97 12/01/22 08:00 61 12/01/22 11:19 83 20 146/64 H 93 12/01/22 10:41 36.8 C 68 20 147/70 H 94 12/01/22 10:11 36.7 C 78 20 151/65 H 93 12/01/22 09:56 67 20 157/75 H 92 12/01/22 09:30 36.8 C 68 20 157/75 H 12/01/22 07:31 37.0 C 73 19 134/73 95 O2 Del Method O2 Flow Rate 12/01/22 15:44 Room Air 12/01/22 11:41 12/01/22 08:00 12/01/22 11:19 12/01/22 10:41 12/01/22 10:11 12/01/22 09:56 0 12/01/22 09:30 12/01/22 07:31 Room Air Laboratory Results Short CBC 11/30/22 12/01/22 12/01/22 Range/Units 17:16 05:41 12:34 WBC 5.24 6.24 (4.8-10.8) K/ul Hgb 6.1 L* 7.5 L 8.6 L (14.0-18.0) g/dl Hct 22.1 L 25.7 L 29.3 L (42.0-52.0) % Plt Count 208 174 (130-400) K/uL BMP 11/30/22 12/01/22 17:16 05:41 Sodium 138 142 Potassium 4.1 3.9 Chloride 104 107 Carbon Dioxide 26 28 BUN 27 H 25 H Creatinine 1.87 H 1.69 H Glucose 250 H 172 H Calcium 8.2 L 8.1 L Liver Function 11/30/22 Range/Units 17:16 Total Bilirubin 0.4 (0.2-1.0) mg/dl AST 12 L (13-39) U/L ALT 15 (7-52) U/L Alkaline Phosphatase 33 L (34-104) U/L Albumin 3.9 (3.4-5.0) gm/dl (2) GI bleed GI bleed type/associated pathology: unspecified gastrointestinal hemorrhage type Qualified Code(s): K92.2 - Gastrointestinal hemorrhage, unspecified
[2022-12-01] MEDS ORDERED: Nursing to Pharmacy Communication SCH (17:15)
[2022-12-01 17:19] LABS: Hematocrit (blood only) 29.1 % (42.0-52.0); Hemoglobin 8.5 g/dl (14.0-18.0)
[2022-12-01] MEDS ORDERED: LOVASTATIN 20 MG TAB PO SCH (21:00)
[2022-12-02] MEDS ORDERED: hydrALAZINE TAB 50 MG TAB PO SCH (04:40)
[2022-12-02 07:46] LABS: Hematocrit (blood only) 29.7 % (42.0-52.0); Hemoglobin 8.6 g/dl (14.0-18.0)
[2022-12-02 08:00] LABS: BUN Creatinine Ratio 14.5 (10-20); Creatinine Clr Calc Pharmacy 53.5 ml/min; Est GFR (African American) 50.2 ml/min; Est GFR (Non-African American) 43.3 ml/min; Potassium 3.9 mmol/L (3.5-5.1)
[2022-12-02] MEDS: INSULIN ASPART PER UNIT CHARGE SC SCH ×2 (08:18→11:49)
[2022-12-02] MEDS: carvediloL 25 MG TAB PO SCH (08:18)
[2022-12-02] MEDS: ISOSORBIDE MONO EXTENDED REL 30 MG TABCR PO SCH (08:19)
[2022-12-02] MEDS: GABAPENTIN 100 MG CAP PO SCH (08:19)
[2022-12-02] MEDS: FERROUS SULFATE 325 MG TAB PO SCH (08:19)
[2022-12-02] MEDS: FLUTICASONE FUROATE 200MCG 14 PUFFS/INHALER INH SCH (08:19)
[2022-12-02] MEDS: LOSARTAN POTASSIUM 50 MG TAB PO SCH (08:20)
[2022-12-02] MEDS: PANTOprazole 40 MG TAB PO SCH (08:20)
[2022-12-02] MEDS: TORSEMIDE 20 MG TAB PO SCH (08:20)
[2022-12-02] MEDS: UMECLIDINIUM/VILANTEROL 62.5/25MCG 7 PUFFS/INHALER INH SCH (08:20)
[2022-12-02] MEDS: OCTREOTIDE ACETATE 100 MCG/ML VIAL SQ SCH (08:28)
[2022-12-02] MEDS: GABAPENTIN 600 MG TAB PO SCH (11:51)
--- NOTE | 2022-12-02 14:05 | Hospitalist Progress Note ---
Date of Service December 02, 2022 Assessment & Plan (1) Symptomatic anemia: (2) GI bleed: (3) Renal cyst: Plan Patient is a 72 yr male who presents with symptomatic anemia. Symptomatic anemia: Occult GI bleed likely secondary to AVMs of small intestine H/O AVMs S/P ablation of mid jejunum in Apr 2022 Iron deficiency anemia S/P 3 units PRBCs Continue octreotide SQ as recommend by GI Continue Protonix Appreciate GI input Enteroscopy, colonoscopy scheduled as outpatient Appreciate GI input Monitor H&H and transfuse as needed Continue iron supplements Needs follow-up with GI upon discharge Hb stable, Plan to discharge home today Renal Cysts -Renal USD:Multiple bilateral renal cysts, including a 13.1 cm right lower pole cyst. Evaluation of the 2.1 cm hypodense lesion within the upper pole of the left kidney is difficult given multiplicity of cysts. This favors a hyperdense cyst. A solid renal lesion cannot be completely excluded. Nonemergent renal protocol CT is recommended. -Follow up as outpatient -Advised to follow-up with urology as outpatient Hepatic Lesion Incidental finding on CT CT showed:6 mm right lobe hepatic hypodensity that is too small to characterize. Follow-up as outpatient Hypertension: Continue Coreg, hydralazine, Imdur, losartan Chronic lower extremity edema Possible chronic diastolic dysfunction, Chronic venous insufficiency Continue torsemide Monitor volume status DM II HbA1C: 6.9 Hold PO meds Continue insulin while hospitalized Monitor BGs CKD III Cr at baseline Monitor renal function Avoid nephrotoxic agents as able GUS on CPAP at bedtime. COPD No signs of exacerbation Continue home inhalers CAD Morbid obesity BMI 36 Continue home medications DVT Px: SCDs for now Code Status Full Code Admission and Anticipated Discharge Date Admission Date: November 30, 2022 Subjective Patient is seen and examined at bedside States feeling well today No recurrence of bleeding Denies any chest pain, dyspnea, dizziness, nausea, abdominal pain Discussed with GI today Plan to discharge home today Review of Systems Review of Systems: All systems reviewed & are unremarkable except as noted in Subjective Physical Exam Physical Exam: Physical Exam: Vitals signs as noted above General Appearance:Obese, no apparent distress Head: normocephalic, Atraumatic Eyes: normal inspection, EOMI Neck: supple, Trachea midline Respiratory/Chest: Normal breath sounds, CTA, No accessory muscle use Cardiovascular: S1, S2, No murmur Abdomen/GI:Soft, Non tender, Bowel sounds present Extremities/Musculoskeletal:normal inspection, no edema Neurologic/Psych:AAOX3, grossly no focal neurological deficits Skin: normal color, warm Results & Data Results & Data Vital Signs (Past 12 Hours) Vital Signs Temp Pulse Pulse Resp BP Pulse Ox O2 Del Method 12/02/22 11:57 36.8 C 62 16 130/66 92 Room Air 12/02/22 09:38 59 L 12/02/22 07:12 36.7 C 64 19 155/72 H 96 Room Air 12/02/22 06:11 73 18 162/74 H 92 Room Air 12/02/22 04:25 36.9 C 59 L 20 171/79 H 93 Room Air Laboratory Results Short CBC 12/01/22 12/02/22 Range/Units 17:08 07:22 Hgb 8.5 L 8.6 L (14.0-18.0) g/dl Hct 29.1 L 29.7 L (42.0-52.0) % BMP 12/02/22 07:22 Sodium 139 Potassium 3.9 Chloride 105 Carbon Dioxide 27 BUN 23 Creatinine 1.59 H Glucose 146 H Calcium 8.0 L (2) GI bleed GI bleed type/associated pathology: unspecified gastrointestinal hemorrhage type Qualified Code(s): K92.2 - Gastrointestinal hemorrhage, unspecified
--- NOTE | 2022-12-02 14:14 | Discharge Summary ---
Date of Service December 02, 2022 Admission HPI Per Admitting Provider CHIEF COMPLAINT: Symptomatic anemia. HISTORY OF PRESENT ILLNESS: This is a 72-year-old male with past medical history significant for type 2 diabetes, hyperlipidemia, COPD, obstructive sleep apnea, on CPAP, chronic kidney disease stage III, history of CAD, GERD, morbid obesity, vitamin D deficiency, osteoarthritis, bilateral leg edema, bilateral lumbar radiculopathy, history of Lyme disease, spinal stenosis, primary insomnia, who presents with symptomatic anemia. The patient was having ongoing shortness of breath with exertion for the last couple of weeks and he had a similar episode when he had symptomatic anemia in the past. He went to see cardiology last Tuesday for a regular visit and noted to have shortness of breath on exertion and as per Cardiology notes, he had prior testing to include dobutamine stress test x2, which was unremarkable. He was started on iron supplements and stools are black, but his Hemoccult was positive and he had EGD performed in April 2022 with AVM ablation and cardiology referred him to GI. GI saw him today and outpatient labs showed hemoglobin of 6, so he was advised to come to the ER. In the ER, also his hemoccult is slightly_ positive and his hemodynamics are stable, saturating okay. His hemoglobin 6.1 in the ER and CT abdomen and pelvis is okay. He is getting 2 units of PRBC. Currently, resting comfortably, hemodynamically stable. He has some chronic cough. He has no chest pain, no nausea, no vomiting, no abdominal pain. No diarrhea or constipation, but has some black stools. Normal bladder movements. Has swelling in the legs. No headache, no blurred visions, no earache. Somewhat hard of hearing. is in the room. Admission Exam Per Admitting Provider PHYSICAL EXAMINATION: GENERAL: The patient is obese, not in acute distress. VITAL SIGNS: Temperature 37.2, pulse 79, respiratory rate 16, blood pressure 141/68, oxygen 94% on room air. HEENT: Pupils equal, round, and reactive to light. Oral mucosa moist. NECK: No JVD, no neck masses. CARDIOVASCULAR: S1 and S2 heard. Regular rate and rhythm. No murmur, no gallop. RESPIRATORY SYSTEM: Normal AP diameter. No accessory muscle use. No wheezing, no crackles. ABDOMEN: Soft, bowel sounds present, nontender, no distention. CENTRAL NERVOUS SYSTEM: Alert and oriented. Speech is clear. No facial monse op. Obeys simple commands. Moves extremities. EXTREMITIES: Bilateral lower extremity pedal edema present, no erythema seen. Principal Diagnosis Symptomatic anemia Possible Subacute blood loss anemia due to GI bleeding Renal Cysts Hepatic Lesion Discharge Data Allergies Allergy/AdvReac Type Severity Reaction Status Date / Time lisinopril AdvReac Severe ARNOLDO, Verified 11/30/22 20:47 hyperkalemia, ARF - PT DENIES verapamil AdvReac Severe "SHUT HIS Verified 11/30/22 20:47 HEART DOWN" Consultations 11/30/22 20:12 ED Decision to Admit Stat 12/01/22 08:00 Consult Gastroenterology Routine Procedures Performed Laboratory Results WBC 6.24 K/ul (4.8-10.8) 12/01/22 05:41 RBC 3.12 M/uL (4.70-6.10) L 12/01/22 05:41 Hgb 8.6 g/dl (14.0-18.0) L 12/02/22 07:22 Hct 29.7 % (42.0-52.0) L 12/02/22 07:22 MCV 82.4 fL (80.0-100.0) 12/01/22 05:41 MCH 24.0 pg (25.0-34.0) L 12/01/22 05:41 MCHC 29.2 g/dL (32.0-36.0) L 12/01/22 05:41 RDW Std Deviation 61.2 fL (36.4-46.3) H 12/01/22 05:41 RDW Coeff of Arvin 20.6 % (11.5-14.5) H 12/01/22 05:41 Plt Count 174 K/uL (130-400) 12/01/22 05:41 MPV 12.2 fL (9.4-12.4) 12/01/22 05:41 Immature Gran % (Auto) 0.2 % 12/01/22 05:41 Neut % (Auto) 69.2 % 12/01/22 05:41 Lymph % (Auto) 19.2 % 12/01/22 05:41 Rankin % (Auto) 9.0 % 12/01/22 05:41 Eos % (Auto) 1.6 % 12/01/22 05:41 Baso % (Auto) 0.8 % 12/01/22 05:41 Neut # (Auto) 4.32 K/uL (1.40-6.50) 12/01/22 05:41 Lymph # (Auto) 1.20 K/uL (1.2-3.4) 12/01/22 05:41 Rankin # (Auto) 0.56 K/uL (0.11-0.59) 12/01/22 05:41 Eos # (Auto) 0.10 K/uL (0-0.50) 12/01/22 05:41 Baso # (Auto) 0.05 K/uL (0-0.2) 12/01/22 05:41 Immature Gran # (Auto) 0.01 K/uL (0.01-0.20) 12/01/22 05:41 Polychromasia 1+ 11/30/22 17:16 Hypochromasia Present 12/01/22 05:41 Anisocytosis Present 12/01/22 05:41 Tear Drop Cells 1+ 12/01/22 05:41 Ovalocytes 1+ 12/01/22 05:41 PT 10.9 Seconds (9.0-12.0) 11/30/22 17:16 INR 1.0 (0.9-1.1) 11/30/22 17:16 APTT 23.2 Seconds (21.0-31.0) 11/30/22 17:16 PTT Ratio 0.8 11/30/22 17:16 Sodium 139 mmol/L (136-145) 12/02/22 07:22 Potassium 3.9 mmol/L (3.5-5.1) 12/02/22 07:22 Chloride 105 mmol/L (98-107) 12/02/22 07:22 Carbon Dioxide 27 mmol/L (21-32) 12/02/22 07:22 Anion Gap 7 (3-11) 12/02/22 07:22 BUN 23 mg/dl (6-23) 12/02/22 07:22 Creatinine 1.59 mg/dl (0.6-1.4) H 12/02/22 07:22 Est Cr Clr Drug Dosing 53.5 ml/min 12/02/22 07:22 Est GFR ( Amer) 50.2 ml/min 12/02/22 07:22 Est GFR (Non-Af Amer) 43.3 ml/min 12/02/22 07:22 BUN/Creatinine Ratio 14.5 (10-20) 12/02/22 07:22 Glucose 146 mg/dl (70-99(Fasting)) H 12/02/22 07:22 POC Glucose 173 mg/dl (70-99) H 12/02/22 11:13 Estimat Average Glucose 151 mg/dl 12/01/22 05:41 Hemoglobin A1c 6.9 % (4.5-5.6) H 12/01/22 05:41 Calcium 8.0 mg/dl (8.6-10.3) L 12/02/22 07:22 Magnesium 2.0 mg/dl (1.7-2.4) 12/02/22 07:22 Total Bilirubin 0.4 mg/dl (0.2-1.0) 11/30/22 17:16 AST 12 U/L (13-39) L 11/30/22 17:16 ALT 15 U/L (7-52) 11/30/22 17:16 Alkaline Phosphatase 33 U/L (34-104) L 11/30/22 17:16 Troponin I High Sens 5.6 pg/ml (0-20) 11/30/22 17:16 Total Protein 5.9 gm/dl (6.0-8.3) L 11/30/22 17:16 Albumin 3.9 gm/dl (3.4-5.0) 11/30/22 17:16 Globulin 2.0 gm/dl (2.5-4.0) L 11/30/22 17:16 Albumin/Globulin Ratio 2.0 (0.9-2) 11/30/22 17:16 SARS-CoV-2, RNA, NAAT NEGATIVE (NEGATIVE) 11/30/22 17:21 Blood Type O Positive 11/30/22 17:16 Blood Type Recheck O Positive 11/30/22 18:06 Antibody Screen NEGATIVE 11/30/22 17:16 Crossmatch See Detail 11/30/22 17:16 Impressions Chest X-Ray 11/30/22 16:48 SINGLE VIEW CHEST CLINICAL HISTORY: GI bleeding FINDINGS: An AP, portable, upright chest radiograph is compared to study dated 11/29/2018. The heart is mildly enlarged noting atherosclerotic calcification of the thoracic aorta. The pulmonary vasculature is noncongested. Chronic interstitial thickening is similar to previous. Scarring/atelectasis is noted at the lung bases. The lungs and pleural spaces are otherwise clear. No pneumothorax is seen. The skeletal structures are osteopenic. The bony thorax is grossly intact. IMPRESSION: Mild cardiomegaly with no active disease in the chest. ACT 112: Negative or not required by law. Electronically signed by: Luis Duffy M.D. 11/30/2022 5:47 PM Abdomen/Pelvis CT 11/30/22 18:46 Exam(s): CT ABDOMEN + PELVIS Without Contrast EXAM: CT Abdomen and Pelvis Without Intravenous Contrast CLINICAL HISTORY: Reason for exam: ab pain, anemia. TECHNIQUE: Axial computed tomography images of the abdomen and pelvis without intravenous contrast. CTDI is 26.52 mGy and DLP is 1368.5 mGy-cm. Automated exposure control was utilized for the study. A dose lowering technique was utilized adhering to the principles of ALARA. COMPARISON: No relevant prior studies available. FINDINGS: The lung bases demonstrate mild atelectasis. No acute infiltrate. Relative hyperdensity of the interventricular septum supports provided history of anemia. 6 mm right lobe hepatic hypodensity that is too small to characterize (series 2, image 27). Liver calcifications near the dome suggesting old granulomatous disease. The biliary tree, pancreas, spleen, and adrenal glands are unremarkable for noncontrast technique. 2.4 cm slightly hyperdense lesion to the upper pole of the left kidney on series 2, image 31. This could reflect a complex cyst, but is now at definitively characterized here. Other simple left renal cysts. Large exophytic cyst arising from the lower pole of the right kidney measuring 13.4 x 10.7 cm. No hydronephrosis. There is no bowel obstruction or perforation. Several colonic diverticula without diverticulitis. The appendix is unremarkable. Aortoiliofemoral atherosclerosis without aneurysm. No evidence of intra- abdominal or intrapelvic hemorrhage to explain anemia. Advanced lumbar spondylosis with degeneration most pronounced at L5-S1. No acute fracture. IMPRESSION: No abdominopelvic hemorrhage to explain anemia. 2.4 cm upper pole left renal mass could reflect a complex cyst, but would recommend nonemergent ultrasound to further assess. Simple bilateral renal cysts including 13.4 cm cyst extending from the lower pole the right kidney. 6 mm right lobe hepatic hypodensity that is too small to characterize. Incidental findings as detailed above. Electronically signed by: Jun Rivero M.D. 11/30/22 20:00 PM Renal Ultrasound 12/01/22 08:24 RENAL ULTRASOUND CLINICAL HISTORY: Left renal mass, right renal cyst. COMPARISON STUDY: CT of the abdomen and pelvis November 30, 2022. TECHNIQUE: Sonography of the kidneys and the urinary bladder was performed. FINDINGS: The right kidney measures 10.9 x 6.4 x 6 cm and the left kidney measures 11.1 x 5.5 x 5.2 cm. There is no hydronephrosis. No renal calculi are identified. Anechoic right renal lesions reflect cysts. The largest is a 13.1 cm exophytic lesion arising from the lower pole of the right kidney. This corresponds to the largest cyst shown on CT. Left kidney is partially obscured but several left renal lesions measure up to 1.9 cm and favor cysts. One-to-one correlation with the CT is difficult given multiplicity of cysts. Therefore, the 2.1 cm hyperdense lesion within the upper pole remains indeterminate but probably reflects a hyperdense cyst. IMPRESSION: 1. Multiple bilateral renal cysts, including a 13.1 cm right lower pole cyst. 2. Evaluation of the 2.1 cm hypodense lesion within the upper pole of the left kidney is difficult given multiplicity of cysts. This favors a hyperdense cyst. A solid renal lesion cannot be completely excluded. Nonemergent renal protocol CT is recommended. ACT 112: Negative or not required by law. Electronically signed by: Riky Smith M.D. 12/01/2022 3:45 PM Ordered Studies 11/30/22 18:46 CT abd pelvis wo con Stat 12/01/22 08:24 US renal/blad retro comp Routine Hospital Course (1) Symptomatic anemia: (2) GI bleed: (3) Renal cyst: Plan Patient is a 72 yr male who presents with symptomatic anemia. Symptomatic anemia: Occult GI bleed likely secondary to AVMs of small intestine H/O AVMs S/P ablation of mid jejunum in Apr 2022 Iron deficiency anemia S/P 3 units PRBCs Continue octreotide SQ as recommend by GI Continue Protonix Appreciate GI input Enteroscopy, colonoscopy scheduled as outpatient Appreciate GI input Monitor H&H and transfuse as needed Continue iron supplements Needs follow-up with GI upon discharge Hb stable, Plan to discharge home today Renal Cysts -Renal USD:Multiple bilateral renal cysts, including a 13.1 cm right lower pole cyst. Evaluation of the 2.1 cm hypodense lesion within the upper pole of the left kidney is difficult given multiplicity of cysts. This favors a hyperdense cyst. A solid renal lesion cannot be completely excluded. Nonemergent renal protocol CT is recommended. -Follow up as outpatient -Advised to follow-up with urology as outpatient Hepatic Lesion Incidental finding on CT CT showed:6 mm right lobe hepatic hypodensity that is too small to characterize. Follow-up as outpatient Hypertension: Continue Coreg, hydralazine, Imdur, losartan Chronic lower extremity edema Possible chronic diastolic dysfunction, Chronic venous insufficiency Continue torsemide Monitor volume status DM II HbA1C: 6.9 Hold PO meds Continue insulin while hospitalized Monitor BGs CKD III Cr at baseline Monitor renal function Avoid nephrotoxic agents as able GUS on CPAP at bedtime. COPD No signs of exacerbation Continue home inhalers CAD Morbid obesity BMI 36 Continue home medications DVT Px: SCDs for now Code Status Full Code Total Time Total Time Spent Total Time Spent (In Minutes): 56 minutes Discharge Plan Discharge Items Patient Disposition: Home - Home Health Services Reason For Visit: SYMPTOMATIC ANEMIA Discharge Diagnosis: Symptomatic anemia: Possible Subacute blood loss anemia due to GI bleeding Renal Cysts Hepatic Lesion Activity: Per Instructions section Exercise/Sports: Gradually increase as tolerated Non-emergency contact: Primary Care Provider and Area Director Call non-emergency contact if: you have any medication questions, your symptoms worsen, your pain is concerning for you and you have a fever Follow-up/Referrals: Dominick Amador MD [Physician] - 12/06/22 (The gastroenterology office will call you with instructions and time for your procedure on 12/06/22.) Javy Moscoso DO [Primary Care Provider] - (Date & Time 12/07/2022 10:40 AM Provider Javy Moscoso DO Department [facility] ) Diet: Carb Consistent or DM2 and Heart Healthy Addtl Attending Provider Instructions: Follow-up with your primary care physician on 12/07/2022 10:40 AM Follow-up with your audit machine operator on 12/06/22 as scheduled --- Follow-up with your physician for further evaluation of kidney cysts and hepatic lesion which were incidentally found on CAT scan. Seek immediate medical attention if your symptoms reoccur or worsen Please take all medications as instructed on discharge list below. Please call if you have any questions or problems. You can reach a [facility] hospitalist on duty at [facility] [address] 24 hours a day by calling [phone] Pending Studies at Discharge: No Stand-Alone Forms: My [facility], Smoking Cessation Medications and DC Order Prescriptions: New pantoprazole 40 mg Tablet,Delayed Release (Dr/Ec) 40 mg PO BID Qty: 60 1RF octreotide acetate 100 mcg/mL Solution 50 mcg subcut BID Qty: 0 0RF Continued hydralazine 25 mg Tablet 50 mg PO BID glimepiride 4 mg Tablet 4 mg PO BID lovastatin 20 mg Tablet 20 mg PO QPM torsemide 20 mg Tablet 20 mg PO QAM acetaminophen 500 mg tablet 1,000 mg PO Q8 PRN (Reason: pain/fevers) losartan 100 mg Tablet 100 mg PO QAM metformin 500 mg Tablet 500 mg PO BID carvedilol 25 mg Tablet 25 mg PO BID gabapentin 600 mg Tablet 600 mg PO BID Rx Instructions: TAKES AT NOON & HS isosorbide mononitrate 30 mg Tablet Extended Release 24 Hr 30 mg PO QAM gabapentin 100 mg Capsule 100 mg PO QAM Jardiance 10 mg Tablet 10 mg PO QAM ferrous sulfate 325 mg (65 mg iron) Tablet 325 mg PO QAM tizanidine 2 mg tablet 2 mg PO HS PRN (Reason: MUSCLE SPASMS) Rx Instructions: PER EXT MED HX--MAY TAKE BID IF NEEDED. PER PT "USUALLY TAKE AT HS". Breztri Aerosphere 160-9-4.8 mcg/actuation HFA aerosol inhaler 1 inh INHALATION DIRECTED ergocalciferol (vitamin D2) 1,250 mcg (50,000 unit) capsule 50,000 unit PO MONTHLY Discontinued omeprazole 40 mg Capsule,Delayed Release(Dr/Ec) 40 mg PO QAM Discharge Orders: Discharge Order (Routine); Ordered 12/02/22 Ordered By: Oscar Cannon/Other Patient Handouts: Managing Type 2 Diabetes Admission Data Admit Date/Time: 11/30/22 21:34 Attending Provider: Oscar Mckeon Admit Provider: Mckay Strauss Primary Care Provider: Javy Moscoso Other Providers: Mckay Strauss ; Teddy Mullen ; Santhosh Willard ; Enedelia Tanner ; Vonda Alexis ; Renetta Warren ; Vero Leal ; Jere Avitia ; Drew Flores ; Nhan Underwood ; Frederick Leija ; Shar Yo ; Kathy Beach ; Sharon Diaz ; Zena Martinez ; Dunia De La Vega ; Dominick Amador ; Yon Deras ; Armando Castro ; Ninfa Nieves ; Candelaria De Jesus Jr
== END 2022-12-02 16:00 | disposition home health service (06) | DRG 378 ==
LOC: ED 16:37 → SUATTDRO 21:34 → EDINP 21:34 → 2E 12-01 00:16

== ENCOUNTER 2024-02-24 20:24 | Inpatient (IN) ==
[2024-02-24 21:02] LABS: Hematocrit (blood only) 23.3 % (42.0-52.0); Mean Corpuscular Hemoglobin 25.4 pg (25.0-34.0); Mean Corpuscular Volume 84.4 fL (80.0-100.0); Mean Platelet Volume 12.4 fL (9.4-12.4); Platelet Count 171 K/uL (130-400); RDW Standard Deviation 46.1 fL (36.4-46.3); Red Blood Count 2.76 M/uL (4.70-6.10); White Blood Count 5.03 K/ul (4.8-10.8)
[2024-02-24] MEDS ORDERED: SODIUM CHLORIDE 0.9% 250 ML IV PRN (21:17)
[2024-02-24 21:28] LABS: Albumin Globulin Ratio 1.9 (0.9-2); Albumin Level 4.1 gm/dl (3.4-5.0); BUN Creatinine Ratio 17.5 (10-20); Bilirubin,Total 0.4 mg/dl (0.2-1.0); Calcium 8.4 mg/dl (8.6-10.3); Creatinine Clr Calc Pharmacy 46.7 ml/min; Est GFR (African American) 45.4 ml/min; Est GFR (Non-African American) 39.1 ml/min; Globulin 2.2 gm/dl (2.5-4.0); Potassium 4.2 mmol/L (3.5-5.1); Total Protein 6.3 gm/dl (6.0-8.3)
[2024-02-24 21:35] LABS: Troponin I High Sensitivity 4.7 pg/ml (0-20)
[2024-02-24] MEDS: PANTOprazole 80 MG in DEXTROSE 5% 100 ML IV ONE (21:52)
[2024-02-24] MEDS: PANTOprazole 40 MG in DEXTROSE 5% MINI-B 100 ML IV SCH (21:52)
[2024-02-24 22:02] LABS: Partial Thromboplastin Time 26 Seconds (21-31); Prothrombin Time 10.9 Seconds (9.0-12.0)
--- NOTE | 2024-02-24 22:05 | Emergency Department Note ---
Impression & Plan Symptomatic anemia, Acute GI bleeding, Chest pain, Shortness of breath, Episodic lightheadedness ED Provider Note NAME: RANJAN CISNEROS AGE: 74 SEX: M : 1950 ARRIVES VIA: Walk-In INFORMANT: Patient ED PROVIDER(S): Da Gilliam DO CHIEF COMPLAINT: Weakness, shortness of breath, chest pain, lightheadedness, low hemoglobin HPI: Patient is a 74-year-old male with a past medical history of type 2 diabetes, hyperlipidemia, COPD, obstructive sleep apnea, on CPAP, chronic kidney disease stage III, history of CAD, GERD, morbid obesity, vitamin D deficiency, osteoarthritis, bilateral leg edema, bilateral lumbar radiculopathy, history of Lyme disease, spinal stenosis, primary insomnia and GI bleed secondary to AVM with previous cauterization that presents to the ER for low hemoglobin referred in. He notes that over the past 2 to 3 weeks he has become short of breath and getting intermittent chest pain with exertion. He has noticed some intermittent black stools. He has becoming dizzy/lightheaded intermittently as well. He had blood work done twice and had been trending down consequently referred him in today as it was 6.8. He denies any headache or change in vision. No chest pain or shortness of breath currently. No belly pain, nausea, vomiting, or diarrhea. No other exacerbating or remitting factors. ADDITIONAL HISTORY OBTAINED: Per HPI Chronic Medical/Social Conditions Affecting Care: Per HPI PAST MEDICAL HISTORY:See Below PAST SURGICAL HISTORY:See Below FAMILY HISTORY:See Below SOCIAL HISTORY:See Below HOME MEDICATIONS:See Below ALLERGIES:See Below VITALS:See Below PHYSICAL EXAMINATION: GENERAL: Sitting up in bed, alert, well appearing, well nourished, no distress, non-toxic EYE EXAM: normal conjunctiva. PERRL and EOM's grossly intact. OROPHARYNX:mucous membranes are moist LUNGS: Clear to auscultation. Normal chest wall mechanics HEART: no murmurs, S1 normal and S2 normal ABDOMEN: abdomen soft, non-tender, normo-active bowel sounds, no masses, no rebound or guarding. RECTAL: hem neg no stool UPPER EXTREMITIES: upper extremities are grossly normal. LOWER EXTREMITIES: No pitting edema. NEURO EXAM: Normal sensorium, cranial nerves II-XII grossly intact, normal speech, no gross weakness of arms, no gross weakness of legs. MEDICAL DECISION MAKING: Patient is a 74-year-old male who presents ER with a past medical history of GI bleed with above-stated complaint. IV was established and blood work was obtained. Labs show no significant leukocytosis. Hemoglobin of 7 trended down from 10 within the past 2 months. External records were reviewed which showed that he does have a history on his last admission bleeding AVMs. INR was unremarkable. BMP with creatinine 1.7 slightly up from baseline of about 1.5. Glucose mildly elevated as well. LFTs bilirubin was unremarkable. Troponin was negative. Rectal exam was heme-negative performed by myself at bedside but there is no stool. He was typed and crossed and given 1 unit of PRBCs while in the ER for his symptomatic anemia with exertional chest pain and shortness of breath. His troponin was negative. EKG unremarkable. Did also start him on a Protonix drip and bolus as I do favor this the likely cause as he has had this before in the past. Consults/Care Managements Discussions: Per [facility] Triage Nursing notes reviewed. Limited review of prior medical records performed Vital Signs: reviewed and remarkable for HTN Differential diagnosis: Infection, dehydration, metabolic abnormality, hypo/hyperglycemia, electrolyte disturbance, anemia, hypoxia, cardiac sources, intracerebral event, toxicologic, neurologic, as well as other pathologies. ER treatment provided: See below Diagnostics interpreted by me include EKG and cardiac monitoring as listed below: -Cardiac Monitoring: An order was placed for continuous cardiac monitoring. The monitor shows a rate of 70 with sinus rhythm. -ECG: Sinus rhythm rate 75 Normal axis No PVCs QTc 433 -Laboratory studies:Interpreted by me as stated above in MDM and shown below. Imaging studies: Xrays: As interpreted by me:none CTs show: none Procedures:none Critical Care: I have personally spent 31 minutes of critical care time in the direct management of this patient. This includes bedside care, interpretation of diagnostic studies, and testing, discussion with consultants, patient, and family members, and other required patient management activities. This 31 minutes is in excess of all separately billable procedures. Past Med/Surg History Problem List (Updated 02/24/24 @ 22:05 by Da Gilliam DO) Episodic lightheadedness (Acute) Shortness of breath (Acute) Chest pain (Acute) Acute GI bleeding (Acute) Symptomatic anemia (Acute) Symptomatic anemia (Acute) GI bleed (Acute) Renal cyst (Acute) CKD (chronic kidney disease) stage 3, GFR 30-59 ml/min (Acute) Encounter for pre-operative examination Degenerative joint disease of knee, right ARF (acute renal failure) GUS (obstructive sleep apnea) Tobacco use disorder Hyperlipidemia HTN (hypertension) GERD (gastroesophageal reflux disease) DVT prophylaxis DM type 2 (diabetes mellitus, type 2) Degenerative joint disease of left knee Encounter for pre-operative examination Anemia Medical History Arthritis of spine CAN'T WALK LONG LENGTHS/ HAS TO SIT AND REST CKD (chronic kidney disease) STAGE 3, follows with Nephrology [facility] h/p ARNOLDO 2018 COPD (chronic obstructive pulmonary disease) Diabetes mellitus, type 2 NIDDM GERD (gastroesophageal reflux disease) controlled Hx of colonic polyp Hyperlipidemia Hypertension Insomnia Numbness and tingling left arm and leg intermittently at random, no blurred vision or facial drooping. --> treated at [facility] through the emergency room per direction of PCP. patient had no diagnosis at that time. [facility] neuro suspects cervical radiculopathy-pt refused further testing or physical therapy Obesity Poor historian Restless leg syndrome Sleep apnea CPAP Surgical History History of cardiac cath 10 YEARS AGO - [facility] - NO STENTS/ANGIOPLASTY History of cataract surgery RT/LEFT History of colonoscopy History of discectomy LUMBAR History of left knee replacement History of open reduction and internal fixation (ORIF) procedure left shoulder with hardware. History of right knee joint replacement 05/22/2019 [facility] History of tooth extraction Hx of vasectomy Family History Mother Family history of diabetes mellitus Grandmother (Maternal) Family history of diabetes mellitus Father Family history of stomach cancer Other No family history of adverse response to anesthesia Denies family history of Myocardial infarction Stroke Social History Smoking Status: Current every day smoker Tobacco Type: Smokeless Tobacco (Dip or Chew) Second Hand Exposure: No; Do You Dip or Chew Tobacco: Yes; Hx Alcohol Use: Yes Alcohol type: beer Hx Substance Use: No Preferred Language: Thai Communication Ability: Effective Communication Ability Comment: PT LUIS, PT GLADIS DOES 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 Required: No Beliefs That Will Affect Care: None marital status: Current Living Situation: Spouse Feels Safe at Home: Yes Assistive Devices: CPAP, Denture - Upper, Denture - Lower and Glasses Allergies Allergies Allergy/AdvReac Type Severity Reaction Status Date / Time lisinopril AdvReac Severe ARNOLDO, Verified 12/27/22 20:58 hyperkalemia, ARF - PT DENIES verapamil AdvReac Severe "SHUT HIS Verified 12/27/22 20:58 HEART DOWN" Home Meds Home Medications Medication Instructions Recorded Confirmed glimepiride 4 mg tablet 4 mg PO BID 11/28/18 12/27/22 lovastatin 20 mg tablet 20 mg PO QPM 11/28/18 12/27/22 hydralazine 25 mg tablet 50 mg PO BID 04/27/19 12/27/22 acetaminophen 500 mg tablet 1,000 mg PO Q8 PRN pain/fevers 03/09/22 12/27/22 carvedilol 25 mg tablet 25 mg PO BID 03/09/22 12/27/22 empagliflozin 10 mg tablet 10 mg PO QAM 03/09/22 12/27/22 (Jardiance) ferrous sulfate 325 mg (65 mg 325 mg PO QAM 03/09/22 12/27/22 iron) tablet gabapentin 100 mg capsule 100 mg PO QAM 03/09/22 12/27/22 gabapentin 600 mg tablet 600 mg PO BID 03/09/22 12/27/22 isosorbide mononitrate 30 mg 30 mg PO QAM 03/09/22 12/27/22 tablet,extended release 24 hr losartan 100 mg tablet 100 mg PO QAM 03/09/22 12/27/22 metformin 500 mg tablet 500 mg PO BID 03/09/22 12/27/22 torsemide 20 mg tablet 20 mg PO QAM 03/09/22 12/27/22 budesonide 160 mcg-glycopyr 9 1 inh inhalation BID 11/30/22 12/27/22 mcg-formot 4.8 mcg/actuation HFA inhaler (Breztri Aerosphere) ergocalciferol (vitamin D2) 1,250 50,000 unit PO MONTHLY 11/30/22 12/27/22 mcg (50,000 unit) capsule tizanidine 2 mg tablet 2 mg PO HS PRN MUSCLE SPASMS 11/30/22 12/27/22 Previous Rx's Medication Instructions Recorded octreotide acetate 100 mcg/mL 50 mcg (0.5 mL) subcut BID #0 mL 12/02/22 injection solution pantoprazole 40 mg tablet,delayed 40 mg PO BID #60 tabs 12/02/22 release Results & Data (ED) Vital Signs Vital Signs - 24 hr 02/24/24 20:27 02/24/24 21:18 Temperature 36.6 C Temperature Source Temporal Artery Scan Pulse Rate 72 69 Pulse Rhythm Regular Pulse Strength Normal Respiratory Rate 19 Respiratory Effort / Characteristics Non-Labored Spontaneous Respiratory Depth Normal Respiratory Pattern Regular Blood Pressure 151/75 H Blood Pressure Mean 100 Blood Pressure Position Sitting Pulse Oximetry 96 Oxygen Delivery Method Room Air Sepsis Recent Fever Within 48 Hours No Sepsis New/Unexplained Change in Mental Status N/A Sepsis Action Taken by Nursing No Action Required Laboratory Data 02/24/24 20:47 02/24/24 20:47 Lab Results 02/24/24 Range/Units 20:47 WBC 5.03 (4.8-10.8) K/ul RBC 2.76 L (4.70-6.10) M/uL Hgb 7.0 L (14.0-18.0) g/dl Hct 23.3 L (42.0-52.0) % MCV 84.4 (80.0-100.0) fL MCH 25.4 (25.0-34.0) pg MCHC 30.0 L (32.0-36.0) g/dL RDW Std Deviation 46.1 (36.4-46.3) fL RDW Coeff of Arvin 15.0 H (11.5-14.5) % Plt Count 171 (130-400) K/uL MPV 12.4 (9.4-12.4) fL PT 10.9 (9.0-12.0) Seconds INR 1.0 (0.9-1.1) APTT 26 (21-31) Seconds PTT Ratio 1.0 Sodium 136 (136-145) mmol/L Potassium 4.2 (3.5-5.1) mmol/L Chloride 101 (98-107) mmol/L Carbon Dioxide 30 (21-32) mmol/L Anion Gap 5 (3-11) BUN 30 H (6-23) mg/dl Creatinine 1.71 H (0.6-1.4) mg/dl Est Cr Clr Drug Dosing 46.7 ml/min Est GFR ( Amer) 45.4 ml/min Est GFR (Non-Af Amer) 39.1 ml/min BUN/Creatinine Ratio 17.5 (10-20) Glucose 265 H (70-99(Fasting)) mg/dl Calcium 8.4 L (8.6-10.3) mg/dl Total Bilirubin 0.4 (0.2-1.0) mg/dl AST 14 (13-39) U/L ALT 16 (7-52) U/L Alkaline Phosphatase 43 (34-104) U/L Troponin I High Sens 4.7 (0-20) pg/ml Total Protein 6.3 (6.0-8.3) gm/dl Albumin 4.1 (3.4-5.0) gm/dl Globulin 2.2 L (2.5-4.0) gm/dl Albumin/Globulin Ratio 1.9 (0.9-2) Blood Type O Positive Antibody Screen NEGATIVE Crossmatch See Detail Administered Medications Pantoprazole Sodium 40 mg/ (Dextrose) 100 mls @ 20 mls/hr IV Q5H [facility] Stop: 03/25/24 21:44 Last Admin: 02/24/24 21:52 Dose: 8 mg/hr, 20 mls/hr Documented By: CAROLA Discontinued Medications Pantoprazole Sodium 80 mg/ (Dextrose) 120 mls @ 480 mls/hr IV NOW ONE Stop: 02/24/24 21:31 Last Admin: 02/24/24 21:52 Dose: 480 mls/hr Documented By: Discharge Plan Visit Data Chief Complaint: Rectal Bleed Stated Complaint: BLOOD LEVEL 6.8, LOSING BLOOD ED Provider: Da Gilliam Discharge Problem: Symptomatic anemia, Acute GI bleeding, Chest pain, Shortness of breath, Episodic lightheadedness Forms Stand Alone Forms: [facility] Prescriptions Prescriptions: No Action hydralazine 25 mg Tablet 50 mg PO BID glimepiride 4 mg Tablet 4 mg PO BID lovastatin 20 mg Tablet 20 mg PO QPM torsemide 20 mg Tablet 20 mg PO QAM acetaminophen 500 mg tablet 1,000 mg PO Q8 PRN (Reason: pain/fevers) losartan 100 mg Tablet 100 mg PO QAM metformin 500 mg Tablet 500 mg PO BID carvedilol 25 mg Tablet 25 mg PO BID gabapentin 600 mg Tablet 600 mg PO BID Rx Instructions: TAKES AT NOON & HS isosorbide mononitrate 30 mg Tablet Extended Release 24 Hr 30 mg PO QAM gabapentin 100 mg Capsule 100 mg PO QAM Jardiance 10 mg Tablet 10 mg PO QAM ferrous sulfate 325 mg (65 mg iron) Tablet 325 mg PO QAM tizanidine 2 mg tablet 2 mg PO HS PRN (Reason: MUSCLE SPASMS) Rx Instructions: PER EXT MED HX--MAY TAKE BID IF NEEDED. PER PT "USUALLY TAKE AT HS". Breztri Aerosphere 160-9-4.8 mcg/actuation HFA aerosol inhaler 1 inh INHALATION BID ergocalciferol (vitamin D2) 1,250 mcg (50,000 unit) capsule 50,000 unit PO MONTHLY octreotide acetate 100 mcg/mL Solution 50 mcg subcut BID Qty: 0 0RF pantoprazole 40 mg Tablet,Delayed Release (Dr/Ec) 40 mg PO BID Qty: 60 1RF Referrals Referrals: Javy Moscoso DO [Primary Care Provider] - Discharge Problem: Chest pain Qualifiers: Chest pain type: unspecified Qualified Code(s): R07.9 - Chest pain, unspecified
--- NOTE | 2024-02-24 23:26 | History & Physical Report ---
Date of Service February 24, 2024 Assessment & Plan (1) Symptomatic anemia: Plan: 74-year-old male with past medical history significant for type 2 diabetes, hyperlipidemia, COPD, obstructive sleep apnea, on CPAP, chronic kidney disease stage III, history of CAD, GERD, morbid obesity, vitamin D deficiency, osteoarthritis, bilateral leg edema, bilateral lumbar radiculopathy, history of Lyme disease, spinal stenosis, primary insomnia, who presents with symptomatic anemia. 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 Patient states he sometimes notices black stools. Denies blood in the stools. No hematuria. Resting comfortably and hemodynamic stable. Currently denies any headache. No blurred vision or double visions. No runny nose or sore throat. No cough.Appetite is good. No difficulty swallowing. No fevers. No nausea. Currently no abdominal pain. 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 Had colonoscopy in November 2022 which showed 6mm polyp in the ascending colon and 4mm polyp in the transverse colon and 3 mm polyp in the rectum which were removed. Pathology showed tubular adenoma of the ascending and transverse colon. 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 Symptomatic anemia chest pains on and off. Shortness of exertion on and off. Lightheadedness. Hemoglobin 7. ER ordered 1 unit of PRBCs. 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 Er started on Protonix drip which will be continued. Continue home octreotide. Follow H&H. N.p.o., IV fluids telemetry GI consult in a.m. for further recommendations. Chest pains on and off. Troponin negative. Will follow serial cardiac enzymes and echo. Cardiac consult in a.m. Chronic lower extremity edema. Possible chronic diastolic dysfunction. And obesity and CKD. On torsemide which will be continued. Hyperlipidemia on statin diabetes currently NPO. Will hold p.o. medications. Cut back on Lantus to 30 units nightly . Sliding scale will follow blood sugars and HbA1c levels. History of CAD. On beta-addison and statin. Hypertension. On Coreg and losartan. Will monitor. Obstructive sleep apnea. CPAP nightly. CKD stage III. Presented with creatinine 1.7 and seems to be around baseline renal cyst. Found on last admission. CAT scan When stable. DVT prophylaxis SCDs. Disposition telemetry full code. History of Present Illness Chief Complaint: Symptomatic anemia Primary Care Provider: Javy Moscoso DO 74-year-old male with past medical history significant for type 2 diabetes, hyperlipidemia, COPD, obstructive sleep apnea, on CPAP, chronic kidney disease stage III, history of CAD, GERD, morbid obesity, vitamin D deficiency, osteoarthritis, bilateral leg edema, bilateral lumbar radiculopathy, history of Lyme disease, spinal stenosis, primary insomnia, who presents with symptomatic anemia. 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 Patient states he sometimes notices black stools. Denies blood in the stools. No hematuria. Resting comfortably and hemodynamic stable. Currently denies any headache. No blurred vision or double visions. No runny nose or sore throat. No cough.Appetite is good. No difficulty swallowing. No fevers. No nausea. Currently no abdominal pain. 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 Had colonoscopy in November 2022 which showed 6mm polyp in the ascending colon and 4mm polyp in the transverse colon and 3 mm polyp in the rectum which were removed. Pathology showed tubular adenoma of the ascending and transverse colon. 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 past medical history. As mentioned above. Past surgical history. Colonoscopy. EGD. Injection of lumbosacral spine. Small bowel endoscopy. Social history. . Smoked 1 pack a day for 20 years. Alcohol monthly. No drug use. Family history. Brother had kidney cancer. father had stomach cancer. Daughter has thyroid disorder. Allergies Allergy/AdvReac Type Severity Reaction Status Date / Time lisinopril AdvReac Severe ARNOLDO, Verified 02/24/24 22:40 hyperkalemia, ARF - PT DENIES verapamil AdvReac Severe "SHUT HIS Verified 02/24/24 22:40 HEART DOWN" Home Medications Medication Instructions Recorded Confirmed Type acetaminophen 500 mg tablet 500 - 1,000 mg PO Q6 PRN 03/09/22 02/24/24 History pain/fevers carvedilol 25 mg tablet 25 mg PO BID 03/09/22 02/24/24 History gabapentin 100 mg capsule 100 mg PO QAM 03/09/22 02/24/24 History gabapentin 600 mg tablet 600 mg PO BID 03/09/22 02/24/24 History losartan 100 mg tablet 100 mg PO QAM 03/09/22 02/24/24 History torsemide 20 mg tablet 20 mg PO QAM 03/09/22 02/24/24 History ergocalciferol (vitamin D2) 1,250 50,000 unit PO MONTHLY 11/30/22 02/24/24 History mcg (50,000 unit) capsule tizanidine 2 mg tablet 2 mg PO HS MUSCLE SPASMS 11/30/22 02/24/24 History octreotide acetate 100 mcg/mL 50 mcg (0.5 mL) subcut BID #0 mL 12/02/22 02/24/24 Rx injection solution atorvastatin 40 mg tablet 40 mg PO QA 02/24/24 02/24/24 History cyanocobalamin (vitamin B-12) 2,500 mcg sublingual DAILY 02/24/24 02/24/24 History 2,500 mcg sublingual tablet (Vitamin B-12) empagliflozin 25 mg tablet 25 mg PO QAM 02/24/24 02/24/24 History (Jardiance) fluticasone propionate 50 2 spray intranasal QA 02/24/24 02/24/24 History mcg/actuation nasal spray,suspension insulin glargine 100 unit/mL (3 60 unit subcut HS 02/24/24 02/24/24 History mL) subcutaneous pen (Lantus Solostar U-100 Insulin) metformin 500 mg tablet,extended 500 mg PO HS 02/24/24 02/24/24 History release 24 hr pantoprazole 40 mg tablet,delayed 40 mg PO QAM 02/24/24 02/24/24 History release triamcinolone acetonide 0.5 % 1 applic topical DIRECTED PRN 02/24/24 02/24/24 History topical cream .flare ups Past Med/Surg History Problem List (Updated 02/24/24 @ 22:05 by Da Gilliam, DO) Episodic lightheadedness (Acute) Shortness of breath (Acute) Chest pain (Acute) Acute GI bleeding (Acute) Symptomatic anemia (Acute) Symptomatic anemia (Acute) GI bleed (Acute) Renal cyst (Acute) CKD (chronic kidney disease) stage 3, GFR 30-59 ml/min (Acute) Encounter for pre-operative examination Degenerative joint disease of knee, right ARF (acute renal failure) GUS (obstructive sleep apnea) Tobacco use disorder Hyperlipidemia HTN (hypertension) GERD (gastroesophageal reflux disease) DVT prophylaxis DM type 2 (diabetes mellitus, type 2) Degenerative joint disease of left knee Encounter for pre-operative examination Anemia Medical History Arthritis of spine CAN'T WALK LONG LENGTHS/ HAS TO SIT AND REST CKD (chronic kidney disease) STAGE 3, follows with Nephrology [facility] Екатерина Avila h/p ARNOLDO 2018 COPD (chronic obstructive pulmonary disease) Diabetes mellitus, type 2 NIDDM GERD (gastroesophageal reflux disease) controlled Hx of colonic polyp Hyperlipidemia Hypertension Insomnia Numbness and tingling left arm and leg intermittently at random, no blurred vision or facial drooping. --> treated at [facility] through the emergency room per direction of PCP. patient had no diagnosis at that time. [facility] neuro suspects cervical radiculopathy-pt refused further testing or physical therapy Obesity Poor historian Restless leg syndrome Sleep apnea CPAP Surgical History History of cardiac cath 10 YEARS AGO - [facility] - NO STENTS/ANGIOPLASTY History of cataract surgery RT/LEFT History of colonoscopy History of discectomy LUMBAR History of left knee replacement History of open reduction and internal fixation (ORIF) procedure left shoulder with hardware. History of right knee joint replacement 05/22/2019 [facility] History of tooth extraction Hx of vasectomy Family History Mother Family history of diabetes mellitus Grandmother (Maternal) Family history of diabetes mellitus Father Family history of stomach cancer Other No family history of adverse response to anesthesia Denies family history of Myocardial infarction Stroke Social History Smoking Status: Former smoker Tobacco Type: Smokeless Tobacco (Dip or Chew) Second Hand Exposure: No; Do You Dip or Chew Tobacco: No; Hx Alcohol Use: Yes Alcohol type: beer Hx Substance Use: No Preferred Language: Lao Communication Ability: Effective Communication Ability Comment: PT REDDING, PT GLADIS DOES PHONE INTERVIEW Floor Manager Required: No Beliefs That Will Affect Care: None marital status: Current Living Situation: Spouse Other Information That Helps Us Care for You: No Feels Safe at Home: Yes Safety Concerns: Feels Safe At This Time Assistive Devices: Denture - Upper, Denture - Lower and Glasses Review of Systems Review of Systems: All systems reviewed & are unremarkable except as noted in HPI & below Physical Exam Physical Exam: General- Not in distress Head- atraumatic Eyes- PERRL. ENT- oropharynx clear Neck- supple, no JVD. Lungs- clear to auscultation no wheezing or crackles. Heart- regular rate and rhythm; no murmur, no gallop. Abdomen- normal bowel sounds, soft, nontender, no distension. Extremities- pretibial edema present, no erythema seen. Neuro- alert, oriented PERRL, no facial palsy; no dysarthria; moves extremities. Results & Data Results & Data Vital Signs (Past 12 Hours) Vital Signs Temp Pulse Resp BP Pulse Ox O2 Del Method 02/24/24 21:18 69 02/24/24 20:27 36.6 C 72 19 151/75 H 96 Room Air Diagnostic Findings Laboratory Results WBC 5.03 K/ul (4.8-10.8) 02/24/24 20:47 RBC 2.76 M/uL (4.70-6.10) L 02/24/24 20:47 Hgb 7.0 g/dl (14.0-18.0) L 02/24/24 20:47 Hct 23.3 % (42.0-52.0) L 02/24/24 20:47 MCV 84.4 fL (80.0-100.0) 02/24/24 20:47 MCH 25.4 pg (25.0-34.0) 02/24/24 20:47 MCHC 30.0 g/dL (32.0-36.0) L 02/24/24 20:47 RDW Std Deviation 46.1 fL (36.4-46.3) 02/24/24 20:47 RDW Coeff of Arvin 15.0 % (11.5-14.5) H 02/24/24 20:47 Plt Count 171 K/uL (130-400) 02/24/24 20:47 MPV 12.4 fL (9.4-12.4) 02/24/24 20:47 PT 10.9 Seconds (9.0-12.0) 02/24/24 20:47 INR 1.0 (0.9-1.1) 02/24/24 20:47 APTT 26 Seconds (21-31) 02/24/24 20:47 PTT Ratio 1.0 02/24/24 20:47 Sodium 136 mmol/L (136-145) 02/24/24 20:47 Potassium 4.2 mmol/L (3.5-5.1) 02/24/24 20:47 Chloride 101 mmol/L (98-107) 02/24/24 20:47 Carbon Dioxide 30 mmol/L (21-32) 02/24/24 20:47 Anion Gap 5 (3-11) 02/24/24 20:47 BUN 30 mg/dl (6-23) H 02/24/24 20:47 Creatinine 1.71 mg/dl (0.6-1.4) H 02/24/24 20:47 Est Cr Clr Drug Dosing 46.7 ml/min 02/24/24 20:47 Est GFR ( Amer) 45.4 ml/min 02/24/24 20:47 Est GFR (Non-Af Amer) 39.1 ml/min 02/24/24 20:47 BUN/Creatinine Ratio 17.5 (10-20) 02/24/24 20:47 Glucose 265 mg/dl (70-99(Fasting)) H 02/24/24 20:47 Calcium 8.4 mg/dl (8.6-10.3) L 02/24/24 20:47 Total Bilirubin 0.4 mg/dl (0.2-1.0) 02/24/24 20:47 AST 14 U/L (13-39) 02/24/24 20:47 ALT 16 U/L (7-52) 02/24/24 20:47 Alkaline Phosphatase 43 U/L (34-104) 02/24/24 20:47 Troponin I High Sens 4.7 pg/ml (0-20) 02/24/24 20:47 Total Protein 6.3 gm/dl (6.0-8.3) 02/24/24 20:47 Albumin 4.1 gm/dl (3.4-5.0) 02/24/24 20:47 Globulin 2.2 gm/dl (2.5-4.0) L 02/24/24 20:47 Albumin/Globulin Ratio 1.9 (0.9-2) 02/24/24 20:47 Blood Type O Positive 02/24/24 20:47 Antibody Screen NEGATIVE 02/24/24 20:47 Crossmatch See Detail 02/24/24 20:47 Code Status & VTE Plan VTE Prophylaxis Plan VTE Prophylaxis will be ordered: Yes
[2024-02-24] MEDS ORDERED: GLUCOSE 40% GEL 15 GM TUBE PO PRN (23:46)
[2024-02-24] MEDS ORDERED: GLUCOSE 10 TAB/TUBE PO PRN (23:46)
[2024-02-24] MEDS ORDERED: CARBOHYDRATES FOR HYPOGLYCEMIA PO PRN (23:46)
[2024-02-24] MEDS ORDERED: NITROGLYCERIN SL 0.4 MG/TAB TAB SL PRN (23:46)
[2024-02-24] MEDS ORDERED: TRIAMCINOLONE ACET 0.5% CR 15 GM TUBE TOP PRN (23:46)
[2024-02-24] MEDS ORDERED: GLUCAGON FOR INJ 1 MG VIAL SQ PRN (23:46)
[2024-02-24] MEDS ORDERED: DEXTROSE 50% 50 ML SYRINGE IV PRN (23:46)
[2024-02-24] MEDS: PANTOPRAZOLE BOLUS/DRIP IV STA (23:52)
[2024-02-25] MEDS: INSULIN ASPART PER UNIT CHARGE SC SCH (00:24)
[2024-02-25] MEDS: SODIUM CHLORIDE 0.9% 1,000 ML IV SCH (00:25)
--- OUTSIDE RECORDS SUMMARY | 2024-02-25 03:29 | External Medical Summary ---
Author Name Unknown Address Unknown Organization [id number]:[facility] [place] - [address] [facility] [id number] Laboratory Report Ordering Provider Test Date Status KEIKOPAULA BARNESO 02/22/2024 15:13:39 Final Observation Date Value Abnormality Reference (Units ) Status TSH 02/22/2024 15:13:39 0.48 0.27-4.20 (uIU/mL) Final Performing Location [facility] [place] - [address] [facility] [id number]
--- OUTSIDE RECORDS SUMMARY | 2024-02-25 03:29 | External Medical Summary | Summary of Care ---
Author Name Unknown Organization [facility] Address [address] [place] [address] Phone [phone] Care Team Providers Care Broke Beater Operator Name Role Phone Javy Moscoso DO Primary Care Provider + [phone] Encounter Details Date Type Department Care Team (Late st Contact Info) Description 02/20/2024 Population Health External Data Unspecified Department Allergies Active Allergy Reactions Criticality Noted Date Comments Lisinopril Unknown Low 11/15/2022 Verapamil Medium 06/26/2020 Heart Block documented as of this encounter (statuses as of 02/21/2024) Medications Medication Sig Dispensed Refills Start Date End Date Status CPAP every night at bedtime. Active Diclofenac Sodium 1 % External Gel (Voltaren) Apply 8 g topically to affected area 2 times a day as needed for Pain. Apply dime sized amount to lower back up to two times a day as needed for pain 150 g 08/02/2022 Active Acetaminophen 500 MG Oral Tablet (Tylenol) Take 1 to 2 tablets by mouth every 6 hours as needed 03/09/2022 Active Losartan Potassium 100 MG Oral Tablet (Cozaar)Indications: HTN, goal below 140/90 Take 1 Tablet by mouth in the morning. 90 Tablet 3 03/08/2023 Active metFORMIN HCl ER 500 MG Oral Tablet Extended Release 24 Hour (Glucophage XR)Indications:Type 2 diabetes mellitus with stage 3b chronic kidney disease, without long-term current use of insulin (HCC) Take 1 Tablet by mouth daily. 90 Tablet 3 03/08/2023 Active Carvedilol 25 MG Oral Tablet (Coreg)Indications:H TN, goal below 140/90 Take 1 Tablet by mouth 2 times a day with morning and evening meals. 180 Tablet 3 03/08/2023 Active Atorvastatin Calcium 40 MG Oral Tablet (Lipitor)Indications :Dyslipidemia, goal LDL below 70 TAKE ONE TABLET BY MOUTH EVERY MORNING 90 Tablet 3 06/11/2023 06/10/2024 Active Empagliflozin 25 MG Oral Tablet (Jardiance)Indicatio ns:Type 2 diabetes mellitus with hyperglycemia, without long-term current use of insulin (HCC),Type 2 diabetes mellitus with stage 3b chronic kidney disease, without long-term current use of insulin (HCC) Take 1 Tablet by mouth in the morning. 100 Tablet 3 08/05/2023 Active Wellocities Ultra 2 w/Device Kit USE DIRECTED TO TEST BLOOD SUGARS 1 Each 09/08/2023 Active Octreotide Acetate 50 MCG/ML Subcutaneous Solution Prefilled Syringe Inject 50 mcg (1 syringe) under the skin twice daily. 60 mL 5 09/21/2023 Active Gabapentin 600 MG Oral Tablet (Neurontin) TAKE ONE TABLET BY MOUTH TWICE A DAY AT NOON AND AT BEDTIME IN ADDITION TO A 100MG DOSE IN THE MORNING 180 Tablet 1 09/26/2023 Active Gabapentin 100 MG Oral Capsule (Neurontin)Indicatio ns:Bilateral lumbar radiculopathy Take 1 Capsule by mouth in the morning. 90 Capsule 2 10/04/2023 Active Pen Rociada 31G X 5 MMIndications:Type 2 diabetes mellitus with hyperglycemia, with long-term current use of insulin (HCC) Use as directed. Use as directed with glargine insulin once daily 100 Each 3 10/06/2023 Active Torsemide 20 MG Oral Tablet (Demadex)Indications :HTN, goal below 140/90 TAKE ONE TABLET BY MOUTH EVERY MORNING 90 Tablet 3 11/02/2023 11/01/2024 Active Triamcinolone Acetonide 0.5 % External Cream (Aristocort) 09/22/2023 Active Vitamin B-12 2500 MCG Sublingual Tablet Sublingual Place 1 Tablet under the tongue in the morning. Active Dexcom G7 Sensor Use as directed. Use as directed to monitor blood sugars daily. Replace sensor every 10 days. E11.9 Active Dexcom G7 Gettering Operator Device Use as directed. Use as directed to monitor blood sugars daily Active Fluticasone Propionate 50 MCG/ACT Nasal Suspension (Flonase)Indications :Chronic maxillary sinusitis Administer 2 Sprays into each nostril in the morning. 18.2 g 3 12/06/2023 Active Pantoprazole Sodium 40 MG Oral Tablet Delayed Release (Protonix)Indication s:Gastroesophageal reflux disease without esophagitis TAKE ONE TABLET BY MOUTH EVERY MORNING 90 Tablet 3 12/14/2023 12/13/2024 Active OneTouch Ultra In Vitro Strip (Glucose Blood)Indications:Ty pe 2 diabetes mellitus with hyperglycemia, with long-term current use of insulin ([facility]) USE DIRECTED UP TO FOUR TIMES DAILY FOR HOME GLUCOSE TESTING 400 Strip 3 12/22/2023 Active tiZANidine HCl 2 MG Oral Tablet (Zanaflex)Indication s:Spinal stenosis of lumbar region without neurogenic claudication Take 1 Tablet by mouth at bedtime as needed for Muscle spasms. 90 Tablet 1 01/02/2024 Active Vitamin D (Ergocalciferol) 1.25 MG (18788 UT) Oral Capsule (Drisdol)Indications :Vitamin D deficiency Take 1 Capsule by mouth Every Month. 6 Capsule 2024 07/11/2024 Active Insulin Glargine Solostar 100 UNIT/ML Subcutaneous Solution Pen-injector (Lantus SoloStar)Indications :Type 2 diabetes mellitus with hyperglycemia, with long-term current use of insulin ([facility]) Inject 40 Units under the skin at bedtime. 45 mL 3 01/17/2024 Active Hospital, Clinic, or Other Facility Administered Medication Ordered Dose Route Frequency Start Date End Date Status Albuterol Sulfate (Proventil) (2.5 MG/3ML) 0.083% inhalation solution 2.5 mgIndications:ILD (interstitial lung disease) ([facility]),BEARDEN (dyspnea on exertion) 2.5 mg NEBULIZER Q4H PRN 12/12/2023 Act jose documented as of this encounter (statuses as of 02/21/2024) Active Problems Problem Noted Date Diagnosed Date Type 2 diabetes mellitus wit h hemoglobin A1c goal of less than 7.5% 12/06/2023 AVM (arteriovenous malformation) of small bowel, acquired 12/06/2023 Chronic maxillary sinusitis 12/06/2023 Grade I diastolic dysfunction 12/06/2023 Type 2 diabetes mellitus wit h diabetic peripheral angiopathy without gangrene, with long-term current use of insulin 09/08/2023 Thrombocytopenia 09/08/2023 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 COPD, group A, by GOLD 2017 classification 08/08 Overview: Per COPD GOLD Classification ILD (interstitial lung disease) 04/27/2023 Centrilobular emphysema 04/27/2023 BEARDEN (dyspnea on exertion) 03/11/2023 Risk and functional assessment 03/08/2023 Iron deficiency anemia due to chronic blood loss 12/17/2022 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: Advised repeat colonoscopy November 2023 PSVT (paroxysmal supraventricular tachycardia) 0 12/07/2022 Bilateral impacted cerumen 10/22/2022 Atherosclerosis of [place] artery without angina pectoris 07/15/2022 Primary osteoarthritis of left knee 07/15/2022 Vitamin D insufficiency 07/15/2022 Numbness 05/21/2022 Overview: Transient left arm and leg numbness 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 3b chronic kidney disease 05/19/2022 Type 2 diabetes mellitus wit h stage 3b chronic kidney disease, with long-term current use of insulin 03/08/2022 Overview: Per CKD protocol Chronic kidney disease, stage 3b 03/08/2022 Overview: Per CKD protocol Morbid (severe) obesity due to excess calories 0 11/17/2021 Dyslipidemia, goal LDL below 70 10/21/2021 GUS on CPAP 03/17/2021 Primary insomnia 03/17/2021 Spinal stenosis of lumbar re gion without neurogenic claudication 06/09/2020 Bilateral lumbar radiculopathy 06/09/2020 Bilateral leg edema 06/09/2020 Gastroesophageal reflux disease without esophagi tis 06/09/2020 Lyme disease 02/18/2019 documented as of this encounter (statuses as of 02/21/2024) Resolved Problems Problem Noted Date Diagnosed Date Resolved Date Benign hypertension with sta ge 3b chronic kidney disease 03/08/2022 07/08/2022 Overview: Per CKD protocol Hypertensive heart disease w ithout congestive heart failure 10/21/2021 07/08/2022 COPD, severity to be determined 03/17/2021 08/12/2022 Overview: Per COPD GOLD Classification Chronic kidney disease, stage 3a 01/06/2021 03/11/2022 Overview: Per CKD protocol Benign hypertension with sta ge 3a chronic kidney disease 01/06/2021 03/11/2022 Overview: Per CKD protocol Benign hypertension with CKD (chronic kidney disease) stage III 06/09/2020 01/08/2021 Overview: Per CKD protocol Type 2 diabetes mellitus wit h stage 3a chronic kidney disease, without long-term current use of insulin 06/09/2020 03/11/2022 Overview: Per CKD protocol Kidney disease, chronic, sta ge III (GFR 30-59 ml/min) 07/09/2019 07/10/2020 Overview: Per CKD protocol Symptomatic bradycardia 02/14/201901/28 Hyperkalemia 02/14/2019 02/18/2019 ARNOLDO (acute kidney injury) 02/14/2019 Acute respiratory failure with hypercapnia 02/14/2019 02/18/2019 Respiratory acidosis 02/14/2019 019 Lactic acidosis 02/14/2019 02/18/2019 documented as of this encounter (statuses as of 02/21/2024) Immunizations Name Administration Dates Next Due COVID-19 mRNA, LNP-s, No Pre serve, 2-Dose Series (Pfizer) 07/03/2021,12/27/2020,12/06/2020 COVID-19, MRNA-LNP, 23-24, P F, 30 MCG/0.3 mL, 12 YRS AND ABOVE, IM (PFIZER-Comirnaty) 06/16/2023 Pneumococcal Conjugate Vacci ne, 20-valent ([id number]) 12/07/2022 Pneumococcal Polysaccharide PPV23 (Pneumovax) 09/08/2020 Season Influenza, Quad, PF, Adjuvanted, 65+ Yrs, IM (FLUAD) 06/03/2020 Seasonal Influenza Virus Vac cine, Unspecified Formulation 05/22/2019 Seasonal Influenza, Quadriva lent Hd (Fluzone Hd) 06/16/2023,05/06/2022,06/13/2021 TDAP (age 10 and older)(Boostrix) 03/17/2021 Zoster Vaccine Recombinant (Shingrix) 11/17/2021 documented as of this encounter Social History Tobacco Use Types Packs/Day Years Used Date Smoking Tobacco: Former Cigarettes 971994 Passive Smoke Exposure: Past Smokeless Tobacco: Current Chew Comments:03/11/23 1 can per 1 -2 days KHB Alcohol Use Standard Drinks/Week Comments Yes 0 (1 standard drink = 0.6 oz pur e alcohol) monthly PHQ-2 Answer Date Recorded PHQ Adult Total Score 0 12/22/2023 Hunger Vital Sign Answer Date Recorded Within the past 12 months, y ou worried that your food would run out before you got the money to buy more. Never true 12/22/19 Within the past 12 months, t he food you bought just didn't last and you didn't have money to get more. Never true 12/22/2023 Childcare Answer Date Recorded Do you feel overwhelmed with taking care of a child, family member or friend? No 12/22/2023 Does your family need help f inding childcare? (Household - for ages 0-17 years) Not on file 12/22/2023 Clothing Answer Date Recorded Have you been unable to get clothing when it was really needed? No 12/22/2023 Is your family able to get c lothes or diapers when needed? (Household - for ages 0-17 years) Not on file 12/22/2023 Personal Safety Answer Date Recorded Do you feel unsafe or have concerns for your saf ety? No 12/22/2023 Do you have concerns for you r family's safety? (Household - for ages 0-17 years) Not on file 12/22/2023 Utilities Answer Date Recorded Do you have trouble paying y our heating, water, or electric bill? No 12/22/2023 Is your family able to pay t he heat, water, or electric bill? (Household - for ages 0-17 years) Not on file 12/22/2023 Does your family have access to good internet? (Household - for ages 0-17 years) Not on file 12/22/2023 Employment Status Answer Date Recorded Are you unemployed or without regular income? No 12/22/2023 Does the household have a re gular source of income? (Household - for ages 0-17 years) Not on file 12/22/2023 Social Connections Answer Date Recorded How often do you feel lonely or isolated from th ose around you? Never 12/22/2023 Financial Resource Strain Answer Date R ecorded Do you have any trouble payi ng for your medications, or do you think you might in the future? No 12/22/2023 Does your family have troubl e paying for medicine? (Household - for ages 0-17 years) Not on file 12/22/2023 Transportation Needs Answer Date Record ed READ ONLY Do you have troubl e getting a ride to medical visits or work? Never True 12/22/2023 Does your family have a hard time getting a ride to doctors visits? (Household - for ages 0-17 years) Not on file 12/22/2023 Has lack of transportation k ept you from medical appointments, meetings, work, or from getting things needed for daily living? Check all that apply. (Adult - for ages 18 years and over) Not on file 12/22/2023 Do you (or your family) have trouble finding or paying for a ride (transportation)? (Household - for ages 0-17 years) Not on file 12/22/2023 Housing Stability Answer Date Recorded Do you currently live in a s helter or have no steady place to sleep at night? No 12/22/2023 READ ONLY Do you think you a re at risk of becoming homeless? No 12/22/2023 Does your family worry about paying for your home or becoming homeless? (Household - for ages 0-17 years) Not on file 0 12/22/2023 Are you homeless or worried that you might be in the future? (Adult - for ages 18 years and over) Not on file Are you (or your family) juany eless or worried that you might be in the future? (Household - for ages 0-17 years) Not on file Food Insecurity Answer Date Recorded Do you need food for this week? No 12/22/2023 Are you able to get enough f ood for your family? (Household - for ages 0-17 years) Not on file 12/22/2023 Does your family need food t his week? (Household - for ages 0-17 years) Not on file 12/22/2023 Do you always have enough fo od for your family? (Household - for ages 0-17 years) Not on file 12/22/2023 Sex and Gender Information Value Date Recorded Sex Assigned at Male 03/08/2023 7:47 AM EDT Gender Identity Male 03/08/2023 7:47 AM EDT Sexual Orientation Straight 03/08/2023 7: 47 AM EDT Job Start Date Occupation Industry Not on file Not on file Not on file documented as of this encounter Functional Status Functional Status Response Date of Assess ment Are you deaf or do you have serious difficulty h earing? No 02/15/2019 Are you blind or do you have serious difficulty seeing, even when wearing glasses? No 02/15/2019 Do you have serious difficul ty walking or climbing stairs? (5 years old or older) No 02/15/2019 Do you have difficulty dress ing or bathing? (5 years old or older) No 02/15/2019 Because of a physical, menta l, or emotional condition, do you have difficulty doing errands alone such as visiting a doctor s office or shopping? (15 years old or older) No 02/16/20 19 Cognitive Status Response Date of Assessm ent Because of a physical, menta l, or emotional condition, do you have serious difficulty concentrating, remembering, or making decisions? (5 years old or older) No 02/15/2019 documented as of this encounter Plan of Treatment Upcoming Encounters Date Type Department Care Team (Latest Contact Info) Description 03/02/2024 8:00 AM EDT Laboratory Laboratory Patient Service [place], [address] [phone] [facility] [address] 03/07/2024 9:00 AM EDT Office Visit Family Practice [address] [place] [address] [place] [address] [place] [id number] Javy Moscoso DO [address] [place] [address] 03/08/2024 8:00 AM EDT Laboratory Laboratory Patient [address] [phone] [place], [facility] [address] [place] [address] 03/15/2024 11:00 AM EDT Office Visit Hematology/Oncolog y [employer] [address] [place] [phone] Katt Mullen CRNP [address] [facility] [place] [address] 04/27/2024 9:30 AM EDT Hospital Encounter ENDO OSSC, Endoscopy Room [facility] [address] [place] [phone] Dominick Amador MD [address] [place] [address] 04/27/2024 9:30 AM EDT - 04/27/2024 10:15 AM EDT Surgery ENDO OSSC, Endoscopy Room [facility] [address] [place] [phone] Dominick Amador MD [address] [place] [address] COLONOSCOPY FLEXIBLE PROXIMAL DIAGNOSTIC 07/24/2024 2:00 PM EST Office Visit Nephrology, [facility] [address] [place] [address] Augusto Lerner MD [address] [place] [address] 10/03/2024 11:00 AM EST [facility] [address] [place] [address] [place], Nurse Annual Wellness Visit [address] [place] [address] 02/15/2025 10:00 AM EDT [facility] [address] [place] [phone] Debby Cornejo, [address] [place] [address] Scheduled Procedures Name Priority Associated Diagnoses Date/Ti me COLONOSCOPY FLEXIBLE PROXIMA L DIAGNOSTIC Recall Iron deficiency anemia AVM (arteriovenous malformation) History of colonic polyps 04/27/2024 9:30 AM EDT ESOPHAGOGASTRODUODENOSCOPY ( EGD), FLEXIBLE, TRANSORAL, DIAGNOSTIC Recall Iron deficiency anemia AVM (arteriovenous malformation) History of colonic polyps 04/27/2024 9:30 AM EDT Health Maintenance Due Date Last Done Comments Cologuard 01/12/1997 Sigmoidoscopy 01/12/1997 COVID-19 Vaccine ( season) 2023 06/16/2023, 07/03/2021, 12/27/2020, Additional history exists Fecal Occult Blood Test 11/18/2023 11/18/19 23, 11/17/2022, 03/16/2022, Additional history exists Colonoscopy 12/11/2023 12/10/2022, 11/27, 12/15/2020, Additional history exists Colorectal Cancer Screening 12/11/2023 GFR 03/08/2024 09/08/2023, 02/2023, 05/05/2023, Additional history exists O2 ASSESSMENT COMPLETED IN PAST YEAR FOR COPD 03/28/2024 03/28/2023 CKD PHOS USE SMARTSET 89453 05/05/202402/2023, 02/02/2023, 01/11/2022, Additional history exists HbA1c 06/15/2024 12/15/2023, 08/29, 08/04/2023, Additional history exists Diabetic Foot Exam 06/16/2024 06/16/2023, 06/16/2023 Diabetic Eye Exam 08/24/2024 08/24/2023, , 11/02/2022, Additional history exists Albumin/Creatinine Ratio 09/09/2024 09/09/2023, 11/0 11/2021 Depression Screening 12/21/2024 12/22/2023 CKD HGB USE SMARTSET 39104 02/15/202502/15, 02/16/2024, 09/08/2023, Additional history exists DTaP,Tdap,and Td Vaccines (2 - Td or Tdap) 03/17/2031 03/17/2021 Alpha-1 Antitrypsin Completed 03/15/2022 AAA Screening Completed 12/07/2022, 05/30, 02/15/2019, Additional history exists Pneumococcal Vaccine: 65+ Years Completed 12/07/2022, 09/08/2020 RETIRED - COLONOSCOPY-ANNUAL AGES 18-100 Discontinued 12/10/2022, 12/10/2022, 12/15/2020, Additional history exists Influenza Vaccine (FLU shot) Completed 06/16/2023, 05/06/2022, 06/13/2021, Additional history exists GARDASIL-HPV IMMUNIZATION SERIES Aged Out No longer eligible based on patient's age to complete this topic Hepatitis B Aged Out No longer eligi ble based on patient's age to complete this topic MENINGOCOCCAL (MENACTRA/MENVEO) Aged Out No longer eligible based on patient's age to complete this topic documented as of this encounter Medical Devices Not on filedocumented as of this encounter Advance Directives * Full Code (Latest Code Status on File) Date Activated Date Inactivated Comments 02/15/2019 9:23 PM 02/18/2019 2:08 PM This order r eflects the patients wishes and were consensually agreed upon. Question Answer Comments Discussion of Advance Directives occurred with: Patient Does the patient have a Living Will? No Does the patient have Health Care Power of Attor kwabena? No Care Teams Broke Beater Operator Relationship Specialty Start Date End Date Javy Moscoso DO [address] [place] [phone] PCP - General Family Medicine 11/6/23 documented as of this encounter
--- OUTSIDE RECORDS SUMMARY | 2024-02-25 03:29 | External Medical Summary | Summary of Care ---
Author Name Unknown Organization [facility] Address [address] [facility] [place] [address] Phone [phone] Care Team Providers Care Supervisor Stage Carpentry Name Role Phone Javy Moscoso DO Primary Care Provider + [phone] Reason for Visit * Reason Onset Date Comments Medication Pre-auth 02/17/2024 Monoferric Encounter Details Date Type Department Care Team (Late st Contact Info) Description 02/17/2024 Telephone Hematology/Oncology [facility] [place] [address] [facility] [place] [address] Katt Mullen CRNP [address] [place] [address] Medication Pre-auth (Monoferric) Allergies Active Allergy Reactions Criticality Noted Date Comments Lisinopril Unknown Low 11/15/2022 Verapamil Medium 06/26/2020 Heart Block documented as of this encounter (statuses as of 02/23/2024) Medications Medication Sig Dispensed Refills Start Date End Date Status CPAP every night at bedtime. Active Diclofenac Sodium 1 % External Gel (Voltaren) Apply 8 g topically to affected area 2 times a day as needed for Pain. Apply dime sized amount to lower back up to two times a day as needed for pain 150 g 2 Active Additional Information Patient not taking.Reported on 02/22/2024 Acetaminophen 500 MG Oral Tablet (Tylenol) Take 1 to 2 tablets by mouth every 6 hours as needed 07/12/202 2 Active Losartan Potassium 100 MG Oral Tablet (Cozaar)Indicatio ns:HTN, goal below 140/90 Take 1 Tablet by mouth in the morning. 90 Tablet 3 3 Active Carvedilol 25 MG Oral Tablet (Coreg)Indication s:HTN, goal below 140/90 Take 1 Tablet by mouth 2 times a day with morning and evening meals. 180 Tablet 3 3 Active Atorvastatin Calcium 40 MG Oral Tablet (Lipitor)Indicati ons:Dyslipidemia, goal LDL below 70 TAKE ONE TABLET BY MOUTH EVERY MORNING 90 Tablet 3 3 06/10/20 24 Active Empagliflozin 25 MG Oral Tablet (Jardiance)Indica tions:Type 2 diabetes mellitus with hyperglycemia, without long-term current use of insulin (HCC),Type 2 diabetes mellitus with stage 3b chronic kidney disease, without long-term current use of insulin (HCC) Take 1 Tablet by mouth in the morning. 100 Tablet 3 3 Active Feesheh 2 w/Device Kit USE DIRECTED TO TEST BLOOD SUGARS 1 Each 4 Active Octreotide Acetate 50 MCG/ML Subcutaneous Solution Prefilled Syringe Inject 50 mcg (1 syringe) under the skin twice daily. 60 mL 5 4 Active Gabapentin 600 MG Oral Tablet (Neurontin) TAKE ONE TABLET BY MOUTH TWICE A DAY AT NOON AND AT BEDTIME IN ADDITION TO A 100MG DOSE IN THE MORNING 180 Tablet 1 4 Active Gabapentin 100 MG Oral Capsule (Neurontin)Indica tions:Bilateral lumbar radiculopathy Take 1 Capsule by mouth in the morning. 90 Capsule 2 4 Active Pen [place] 31G X 5 MMIndications:Typ e 2 diabetes mellitus with hyperglycemia, with long-term current use of insulin (HCC) Use as directed. Use as directed with glargine insulin once daily 100 Each 3 4 Active Torsemide 20 MG Oral Tablet (Demadex)Indicati ons:HTN, goal below 140/90 TAKE ONE TABLET BY MOUTH EVERY MORNING 90 Tablet 3 4 11/02/19 25 Active Triamcinolone Acetonide 0.5 % External Cream (Aristocort) 4 Active Vitamin B-12 2500 MCG Sublingual Tablet Sublingual Place 1 Tablet under the tongue in the morning. Active Dexcom G7 Sensor Use as directed. Use as directed to monitor blood sugars daily. Replace sensor every 10 days. E11.9 Active Dexcom G7 Air Quality Technician Device Use as directed. Use as directed to monitor blood sugars daily Active Fluticasone Propionate 50 MCG/ACT Nasal Suspension (Flonase)Indicati ons:Chronic maxillary sinusitis Administer 2 Sprays into each nostril in the morning. 18.2 g 3 4 Active Pantoprazole Sodium 40 MG Oral Tablet Delayed Release (Protonix)Indicat ions:Gastroesopha geal reflux disease without esophagitis TAKE ONE TABLET BY MOUTH EVERY MORNING 90 Tablet 3 4 12/14/19 25 Active OneTouch Ultra In Vitro Strip (Glucose Blood)Indications :Type 2 diabetes mellitus with hyperglycemia, with long-term current use of insulin (HCC) USE DIRECTED UP TO FOUR TIMES DAILY FOR HOME GLUCOSE TESTING 400 Strip 3 4 Active tiZANidine HCl 2 MG Oral Tablet (Zanaflex)Indicat ions:Spinal stenosis of lumbar region without neurogenic claudication Take 1 Tablet by mouth at bedtime as needed for Muscle spasms. 90 Tablet 1 4 Active Insulin Glargine Solostar 100 UNIT/ML Subcutaneous Solution Pen-injector (Lantus SoloStar)Indicati ons:Type 2 diabetes mellitus with hyperglycemia, with long-term current use of insulin ([facility]) Inject 40 Units under the skin at bedtime. 45 mL 3 4 Active metFORMIN HCl ER 500 MG Oral Tablet Extended Release 24 Hour (Glucophage XR)Indications:Ty pe 2 diabetes mellitus with stage 3b chronic kidney disease, without long-term current use of insulin (HCC) Take 1 Tablet by mouth daily. 90 Tablet 3 3 02/22/20 24 Discontinued Vitamin D (Ergocalciferol) 1.25 MG (99111 UT) Oral Capsule (Drisdol)Indicati ons:Vitamin D deficiency Take 1 Capsule by mouth Every Month. 6 Capsule 4 02/22/20 24 Discontinued(Re fill) Hospital, Clinic, or Other Facility Administered Medication Ordered Dose Route Frequency Start Date End Date Status Albuterol Sulfate (Proventil) (2.5 MG/3ML) 0.083% inhalation solution 2.5 mgIndications:ILD (interstitial lung disease) (HCC),BEARDEN (dyspnea on exertion) 2.5 mg NEBULIZER Q4H PRN 12/12/2023 Act jose documented as of this encounter (statuses as of 02/23/2024) Active Problems Problem Noted Date Diagnosed Date Chest pain 02/22/2024 Palpitations 02/22/2024 Type 2 diabetes mellitus wit h hemoglobin [...] 12/07/2022 Bilateral impacted cerumen 10/22/2022 Atherosclerosis of [place] co ronary artery without angina pectoris 07/15/2022 [...] as of this encounter (statuses as of 02/23/2024) Resolved Problems Problem Noted Date Diagnosed Date [...] as of this encounter (statuses as of 02/23/2024) Immunizations Name Administration Dates Next Due COVID-19 mRNA, LNP-s, No Pre serve, 2-Dose Series (Pfizer) 07/03/2021,12/27/2020,12/06/2020 COVID-19, MRNA-LNP, 23-24, P F, 30 MCG/0.3 mL, 12 YRS AND ABOVE, IM (PFIZER-Comirnaty) 02/22/2024,06/16/2023 Pneumococcal Conjugate Vacci ne, 20-valent ([id number]) 12/07/2022 Pneumococcal Polysaccharide PPV23 (Pneumovax) 09/08/2020 Season Influenza, Quad, PF, Adjuvanted, 65+ Yrs, IM (FLUAD) 06/03/2020 Seasonal Influenza Virus Vac cine, Unspecified Formulation 05/22/2019 Seasonal Influenza, Quadriva lent Hd (Fluzone Hd) 06/16/2023,05/06/2022,06/13/2021 TDAP (age 10 and older)(Boostrix) 03/17/2021 Zoster Vaccine Recombinant (Shingrix) 11/17/2021 documented as of this encounter Social History Tobacco Use Types Packs/Day Years Used Date Smoking Tobacco: Former Cigarettes 975 - 1994 Passive Smoke Exposure: Past Smokeless Tobacco: Current [...] money to buy more. Never true 12/22/19 24 Within the past 12 months, t he [...] 12/22/2023 Does the household have a re lar source of income? (Household - for ages [...] No 02/15/2019 documented as of this encounter Miscellaneous Notes * Telephone Encounter - Ninfa Dominguez OSA - 02/23/2024 9:56 AM EDT Left message * Telephone Encounter - Renetta Dukes RN - 02/23/2024 9:45 AM EDT PRC/PFC reviewed. Scheduling: please call patient to schedule 2 hour appt "monoferric" (Ktat). Thanks! * Telephone Encounter - Renetta Dukes RN - 02/20/2024 3:52 PM EDT Referral entered, waiting for PRC review. * Telephone Encounter - Nhung Gutiérrez LPN - 02/20/2024 10:08 AM EDT Order received for Monoferric [place] plan built and routed to provider Patient aware Awaiting prior auth before scheduling patient. * Telephone Encounter - Nhung Gutiérrez LPN - 02/20/2024 9:56 AM EDT Called and spoke with patient and his Cyndi, informed them both of result message from Provider below. Cyndi verbalized understanding. She states the patient is agreeable to receiving the Monoferric. Provided her and patient medication teaching on Monoferric, they verbalized understanding, denying any questions. * Telephone Encounter - Katt Mullen CRNP - 02/17/2024 4:21 PM EDT Results for orders placed or performed in visit on 02/16/24 IRON SCREEN, INCLUDING TIBC Result Value Ref Range Iron 13 (L) 45 - 176 ug/dL Iron Binding Capacity 430 (H) 250 - 425 ug/dL Transferrin Saturation Percent 3 (L) 15 - 55 % FERRITIN Result Value Ref Range Ferritin 13 (L) 30 - 400 ng/mL CBC Result Value Ref Range WBC 6.17 4.00 - 10.80 K/uL RBC 3.09 4.50 - 5.25 M/uL HGB 8.2 (L) 14.0 - 16.8 g/dL HCT 27.6 (L) 40.0 - 48.4 % MCV 89.3 82.0 - 99.5 fL MCH 26.5 27.0 - 34.0 pg MCHC 29.7 32.0 - 36.0 g/dL RDW 14.3 11.5 - 15.5 % PLT 181 140 - 400 K/uL MPV 12.6 6.6 - 11.1 fL DIFFERENTIAL, AUTOMATED Result Value Ref Range WBC 6.17 4.00 - 10.80 K/uL Neutrophils % 74.9 40.0 - 75.0 % Lymphocytes % 15.9 (L) 18.0 - 42.0 % Monocytes % 6.6 1.0 - 11.0 % Eosinophils % 2.1 0.0 - 6.0 % Basophils % 0.5 0.0 - 2.0 % Absolute Neutrophils 4.62 1.80 - 7.70 K/uL Absolute Lymphocytes 0.98 (L) 1.00 - 4.80 K/ul Absolute Monocytes 0.41 0.00 - 1.10 K/uL Absolute Eosinophils 0.13 0.00 - 0.70 K/uL Absolute Basophils 0.03 0.00 - 0.20 K/uL MYCODE SST1 Result Value Ref Range MyCode Specimen Freezing of extracted DNA, whole blood and/or serum. MYCODE SST2 Result Value Ref Range MyCode Specimen Freezing of extracted DNA, whole blood and/or serum. Recurrent iron deficiency anemia present. Order placed for IV Monoferric 1,000 mg as a single dose. Patient should f/u 03/15/24 as scheduled. documented in this encounter Plan of Treatment Upcoming Encounters Date Type Department Care Team (Latest Contact Info) Description 03/02/2024 8:00 AM EDT [facility], [place] [address] [place] [address] [place], [place] [address] [place] [address] 03/07/2024 9:00 AM EDT Office Visit Family Practice [address] [place] [address], [place] [address] [place] [address] Javy Moscoso DO [address] [place] [id number] 03/08/2024 8:00 AM EDT Laboratory Laboratory Patient Service [place], [place] [address] [place] [phone] [place], [place] [address] [place] [address] 03/15/2024 11:00 AM EDT Office Visit Hematology/Oncolog y [facility] [address] [facility] [address] Katt Mullen CRNP [address] [place] [address] 04/04/2024 9:30 AM EDT Office Visit Cardiology, [facility] [address] [facility] [place] [address] Fatoumata Hanna PA-C [address] [place] [id number] 04/27/2024 9:30 AM EDT Hospital Encounter [facility] [place] [phone] Dominick Amador MD [address] [facility] [place] [address] 04/27/2024 9:30 AM EDT - 04/27/2024 10:15 AM EDT Surgery ENDO [facility], Endoscopy Room [facility] [address] [place] [address] Dominick Amador MD [address] [facility] [place] [address] COLONOSCOPY FLEXIBLE PROXIMAL DIAGNOSTIC 07/24/2024 2:00 PM EST Office Visit Nephrology, [facility] [address] [place] [address] Augusto Lerner MD [address] [place] [address] 10/03/2024 11:00 AM EST Nurse Only Ancillary [address] [facility], [place] [address] [place] [address] [place], Nurse Annual Wellness Visit [address] [address] 02/15/2025 10:00 AM EDT Office Visit [facility] Disorders Ctr [facility] [address] [facility] [place] [address] Debby Cornejo, [address] [facility] [place] [address] Scheduled Procedures Name Priority Associated Diagnoses Date/Ti me COLONOSCOPY FLEXIBLE PROXIMA L DIAGNOSTIC Recall Iron deficiency anemia AVM (arteriovenous malformation) History of colonic polyps 04/27/2024 9:30 AM EDT ESOPHAGOGASTRODUODENOSCOPY ( EGD), FLEXIBLE, TRANSORAL, DIAGNOSTIC Recall Iron deficiency anemia AVM (arteriovenous malformation) History of colonic polyps 04/27/2024 9:30 AM EDT Health Maintenance Due Date Last Done Comments Cologuard 01/12/1997 Sigmoidoscopy 01/12/1997 Fecal Occult Blood Test 11/18/2023 11/18/19 23, 11/17/2022, 03/16/2022, Additional history exists Colonoscopy 12/11/2023 12/10/2022, 11/27, 12/15/2020, Additional history exists Colorectal Cancer Screening 12/11/2023 O2 ASSESSMENT COMPLETED IN PAST YEAR FOR COPD 03/28/2024 03/28/2023 CKD PHOS USE SMARTSET 36353 05/05/2024 09/0 02/2023, 02/02/2023, 01/11/2022, Additional history exists HbA1c 06/15/2024 12/15/2023, 08/29, 08/04/2023, Additional history exists Diabetic Foot Exam 06/16/2024 06/16/2023, 06/16/2023 GFR 08/23/2024 02/22/2024, 08/29, 08/04/2023, Additional history exists Diabetic Eye Exam 08/24/2024 08/24/2023, , 11/02/2022, Additional history exists Albumin/Creatinine Ratio 09/09/2024 09/09/2023, 110 11/2021 Depression Screening 12/21/2024 12/22/2023 CKD HGB USE SMARTSET 71888 02/21/202502/21, 02/22/2024, 02/16/2024, Additional history exists DTaP,Tdap,and Td Vaccines (2 - Td or Tdap) 03/17/2031 03/17/2021 Alpha-1 Antitrypsin Completed 03/15/2022 AAA Screening Completed 12/07/2022, 05/30, 02/15/2019, Additional history exists Pneumococcal Vaccine: 65+ Years Completed 12/07/2022, 09/08/2020 RETIRED - COLONOSCOPY-ANNUAL AGES 18-100 Discontinued 12/10/2022, 12/10/2022, 12/15/2020, Additional history exists Influenza Vaccine (FLU shot) Completed 06/16/2023, 05/06/2022, 06/13/2021, Additional history exists COVID-19 Vaccine Completed 02/22/2024, , 07/03/2021, Additional history exists GARDASIL-HPV IMMUNIZATION SERIES Aged [...] Not on filedocumented as of this encounter Visit Diagnoses Diagnosis Iron deficiency anemia due to chronic blood loss- Primary Iron deficiency anemia secondary to blood loss (chronic) Iron deficiency anemia Iron deficiency anemia, unspecified AVM (arteriovenous malformation) Congenital anomaly of the peripheral vascular system, unspecified site History of colonic polyps Personal history of colonic polyps documented in this encounter Advance Directives * Full Code [...] Power of Attor kwabena? No Care Teams Supervisor Stage Carpentry Relationship Specialty Start Date End Date Javy Moscoso DO [address] [place] [address] PCP - General Family Medicine 07/04/23 documented as of this encounter
--- OUTSIDE RECORDS SUMMARY | 2024-02-25 03:29 | External Medical Summary | Summary of Care ---
Author Name Unknown Organization [facility] Address [address] [place] [address] Phone [phone] Care Team Providers Care Tire Manager Name Role Phone Javy Moscoso DO Primary Care Provider + [phone] Reason for Visit * Reason Onset Date Comments Medication Pre-auth 02/17/2024 Monoferric Encounter Details Date Type Department Care Team (Late st Contact Info) Description 02/17/2024 Telephone Hematology/Oncology [facility] [place] [address] [facility] [place] [address] Katt Mullen CRNP [address] [place] [address] Medication Pre-auth (Monoferric) Allergies Active [...] the morning. 100 Tablet 3 3 Active Istpika 2 w/Device Kit USE DIRECTED TO TEST [...] morning. 90 Capsule 2 4 Active Pen [place] 31G X 5 MMIndications:Typ e 2 diabetes [...] every 10 days. E11.9 Active Dexcom G7 Therapist Physical Device Use as directed. Use as directed [...] hyperglycemia, with long-term current use of insulin ([facility]) Inject 40 Units under the skin at bedtime. 45 mL 3 4 Active metFORMIN HCl ER 500 MG Oral Tablet Extended Release 24 Hour (Glucophage XR)Indications:Ty pe 2 diabetes mellitus with stage 3b chronic kidney disease, without long-term current use of insulin (HCC) Take 1 Tablet by mouth daily. 90 Tablet 3 3 02/22/20 24 Discontinued Vitamin D (Ergocalciferol) 1.25 MG (05609 UT) Oral Capsule (Drisdol)Indicati ons:Vitamin D deficiency [...] 12/07/2022 Bilateral impacted cerumen 10/22/2022 Atherosclerosis of [place] co ronary artery without angina pectoris 07/15/2022 [...] (PFIZER-Comirnaty) 02/22/2024,06/16/2023 Pneumococcal Conjugate Vacci ne, 20-valent ([id number]) 12/07/2022 Pneumococcal Polysaccharide PPV23 (Pneumovax) 09/08/2020 Season [...] encounter Miscellaneous Notes * Telephone Encounter - Renetta Dukes RN - 02/23/2024 9:45 AM EDT PRC/PFC reviewed. Scheduling: please call patient to schedule 2 hour appt "monoferric" (Katt). Thanks! * Telephone Encounter - Renetta Dukes RN - 02/20/2024 3:52 PM EDT Referral entered, waiting for PRC review. * Telephone Encounter - Nhung Gutiérrez LPN - 02/20/2024 10:08 AM EDT Order received for Monoferric [place] plan built and routed to provider Patient [...] AM EDT Laboratory Laboratory [facility], [address] [phone] [place], [facility] [place] [address] [place] [address] 03/07/2024 9:00 AM EDT Office Visit [facility] [address] [facility], [place] [address] [place] [address] Javy Moscoso, DO [address] [place] [address] 03/08/2024 8:00 AM EDT Laboratory [facility], [address] [phone] [place], [address] [place] [address] 03/15/2024 11:00 AM EDT Office Visit Hematology/Oncolog y [facility] [address] [place] [facility] [place] [address] Katt Mullen CRNP [address] [facility] [place] [address] 04/04/2024 9:30 AM EDT Office Visit Cardiology, [facility] [address] [place] [address] Fatoumata Hanna PA-C [facility] [place] [phone] 04/27/2024 9:30 AM EDT Hospital Encounter ENDO [facility], Endoscopy Room [facility] [address] [place] [address] Dominick Amador MD [address] [place] [address] 04/27/2024 9:30 AM EDT - 04/27/2024 10:15 AM EDT Surgery ENDO [facility], Endoscopy Room [facility] [address] [place] [address] Dominick Amador MD [address] [place] [address] COLONOSCOPY FLEXIBLE PROXIMAL DIAGNOSTIC 07/24/2024 2:00 PM EST Office Visit Nephrology, [facility] [address] [place] [address] Augusto Lerner MD [address] [place] [address] 10/03/2024 11:00 AM EST Nurse Only Ancillary [address], [place] [address] [place] [address] [place], Nurse Annual Wellness Visit [address] [place] [phone] 02/15/2025 10:00 AM EDT Office Visit Sleep Disorders Ctr [facility] [address] [place] [phone] Debby Cornejo DO [address] [place] [address] Scheduled Procedures Name Priority Associated Diagnoses Date/Ti [...] COPD 03/28/2024 03/28/2023 CKD PHOS USE SMARTSET 07743 05/05/2024 09/0 02/2023, 02/02/2023, 01/11/2022, Additional history exists HbA1c 06/15/2024 12/15/2023, 08/29, 08/04/2023, Additional history exists Diabetic Foot Exam 06/16/2024 06/16/2023, 06/16/2023 GFR 08/23/2024 02/22/2024, 08/29, 08/04/2023, Additional history exists Diabetic Eye Exam 08/24/2024 08/24/2023, , 11/02/2022, Additional history exists Albumin/Creatinine Ratio 09/09/2024 09/09/2023, 1111/2021 Depression Screening 12/21/2024 12/22/2023 CKD HGB USE SMARTSET 28750 02/21/202502/21, 02/22/2024, 02/16/2024, Additional history exists DTaP,Tdap,and [...] Power of Attor kwabena? No Care Teams Tire Manager Relationship Specialty Start Date End Date Javy Moscoso DO [address] [place] [address] PCP - General Family Medicine 07/04/23 documented as of this encounter
--- OUTSIDE RECORDS SUMMARY | 2024-02-25 03:29 | External Medical Summary | Summary of Care ---
Author Name Unknown Organization [facility] Address [address] [place] [address] Phone [phone] Care Team Providers Care Cash Office Worker Name Role Phone Javy Moscoso DO Primary Care Provider + [phone] Reason for Visit * Reason Onset Date Comments Test Results 02/22/2024 Encounter Details Date Type Department Care Team (Late st Contact Info) Description 02/22/2024 Telephone Family Practice [address] [facility], [place] [address] [place] [phone] Javy Moscoso DO [address] [place] [id number] Test Results Allergies Active Allergy Reactions Criticality Noted Date [...] needed for pain 150 g 08/02/2022 Active Additional Information Patient not taking.Reported on 02/22/2024 Acetaminophen 500 MG Oral Tablet (Tylenol) Take 1 to 2 tablets by mouth every 6 hours as needed 03/09/2022 Active Losartan Potassium 100 MG Oral Tablet (Cozaar)Indications :HTN, goal below 140/90 Take 1 Tablet by mouth in the morning. 90 Tablet 3 03/08/2023 Active Carvedilol 25 MG Oral Tablet (Coreg)Indications: HTN, goal below 140/90 Take 1 Tablet by mouth 2 times a day with morning and evening meals. 180 Tablet 3 03/08/2023 Active Atorvastatin Calcium 40 MG Oral Tablet (Lipitor)Indication s:Dyslipidemia, goal LDL below 70 TAKE ONE TABLET BY MOUTH EVERY MORNING 90 Tablet 3 06/11/2023 06/10/2024 Active Empagliflozin 25 MG Oral Tablet (Jardiance)Indicati ons:Type 2 diabetes mellitus with hyperglycemia, without long-term current use of insulin (HCC),Type 2 diabetes mellitus with stage 3b chronic kidney disease, without long-term current use of insulin (HCC) Take 1 Tablet by mouth in the morning. 100 Tablet 3 08/05/2023 Active Happy Studio Ultra 2 w/Device Kit USE DIRECTED TO [...] 09/26/2023 Active Gabapentin 100 MG Oral Capsule (Neurontin)Indicati ons:Bilateral lumbar radiculopathy Take 1 Capsule by mouth in the morning. 90 Capsule 2 10/04/2023 Active Pen [place] 31G X 5 MMIndications:Type 2 diabetes mellitus with hyperglycemia, with long-term current use of insulin (HCC) Use as directed. Use as directed with glargine insulin once daily 100 Each 3 10/06/2023 Active Torsemide 20 MG Oral Tablet (Demadex)Indication s:HTN, goal below 140/90 TAKE ONE TABLET BY [...] every 10 days. E11.9 Active Dexcom G7 Home Theater Expert Device Use as directed. Use as directed to monitor blood sugars daily Active Fluticasone Propionate 50 MCG/ACT Nasal Suspension (Flonase)Indication s:Chronic maxillary sinusitis Administer 2 Sprays into each nostril in the morning. 18.2 g 3 12/06/2023 Active Pantoprazole Sodium 40 MG Oral Tablet Delayed Release (Protonix)Indicatio ns:Gastroesophageal reflux disease without esophagitis TAKE ONE TABLET BY MOUTH EVERY MORNING 90 Tablet 3 12/14/2023 12/13/2024 Active OneTouch Ultra In Vitro Strip (Glucose Blood)Indications:T ype 2 diabetes mellitus with hyperglycemia, with long-term current use of insulin ([facility]) USE DIRECTED UP TO FOUR TIMES DAILY FOR HOME GLUCOSE TESTING 400 Strip 3 12/22/2023 Active tiZANidine HCl 2 MG Oral Tablet (Zanaflex)Indicatio ns:Spinal stenosis of lumbar region without neurogenic claudication Take 1 Tablet by mouth at bedtime as needed for Muscle spasms. 90 Tablet 1 01/02/2024 Active Insulin Glargine Solostar 100 UNIT/ML Subcutaneous Solution Pen-injector (Lantus SoloStar)Indication s:Type 2 diabetes mellitus with hyperglycemia, with long-term current use of insulin ([facility]) Inject 40 Units under the skin at bedtime. 45 mL 3 01/17/2024 Active Vitamin D (Ergocalciferol) 1.25 MG (69259 UT) Oral Capsule (Drisdol)Indication s:Vitamin D deficiency Take 1 Capsule by mouth Every Month. 6 Capsule 3 02/22/2024 Active metFORMIN HCl ER 500 MG Oral Tablet Extended Release 24 Hour (Glucophage XR)Indications:Type 2 diabetes mellitus with stage 3b chronic kidney disease, without long-term current use of insulin (HCC) Take 1 Tablet by mouth at bedtime. 02/22/2024 Active Hospital, Clinic, or Other Facility Administered [...] 12/07/2022 Bilateral impacted cerumen 10/22/2022 Atherosclerosis of [place] co ronary artery without angina pectoris 07/15/2022 [...] mRNA, LNP-s, No Pre serve, 2-Dose Series (Storybyte) 07/03/2021,12/27/2020,12/06/2020 COVID-19, MRNA-LNP, 23-24, P F, 30 MCG/0.3 mL, 12 YRS AND ABOVE, IM (PFIZER-Comirnaty) 02/22/2024,06/16/2023 Pneumococcal Conjugate Vacci ne, 20-valent ([id number]) 12/07/2022 Pneumococcal Polysaccharide PPV23 (Pneumovax) 09/08/2020 Season Influenza, Quad, PF, Adjuvanted, 65+ Yrs, IM (FLUAD) 06/03/2020 Seasonal Influenza Virus Vac cine, Unspecified Formulation 05/22/2019 Seasonal Influenza, Quadriva lent Hd (Fluzone Hd) 06/16/2023,05/06/2022,06/13/2021 TDAP (age 10 and older)(Boostrix) 03/17/2021 Zoster Vaccine Recombinant (Shingrix) 11/17/2021 documented as of this encounter Social History Tobacco Use Types Packs/Day Years Used Date Smoking Tobacco: Former Cigarettes 975 1994 Passive Smoke Exposure: Past Smokeless Tobacco: [...] No 12/22/2023 Does the household have a [facility] source of income? (Household - for ages [...] encounter Miscellaneous Notes * Telephone Encounter - Sandra De Jesus LPN - 02/23/2024 12:49 PM EDT Pt aware and verbalized understanding. * Telephone Encounter - Javy Moscoso DO - 02/22/2024 5:02 PM EDT Chest x-ray is normal. Advise continue present medical therapy documented in this encounter Plan of Treatment Upcoming Encounters Date Type Department Care Team (Latest Contact Info) Description 03/02/2024 8:00 AM EDT Laboratory Laboratory Patient Service [place], [address] [phone] [place], [address] [address] 03/07/2024 9:00 AM EDT Office Visit Family Practice [address] [place] [address] [address] [place] [phone] Javy Moscoso DO [address] [place] [address] 03/08/2024 8:00 AM EDT Laboratory Laboratory Patient Service [place], [place] [address] [place] [phone] [place], Lab [place] [address] [place] [address] 03/15/2024 11:00 AM EDT Office Visit Hematology/Oncolog y [place] [facility] [place] [address] [facility] [place] [phone] Katt Mullen CRNP [address] [place] [address] 04/04/2024 9:30 AM EDT Office Visit Cardiology, [facility] [address] [place] [address] Fatoumata Hanna PA-C [address] [place] [address] [place] [address] 04/27/2024 9:30 AM EDT Hospital Encounter ENDO [facility], Endoscopy Room [facility] [address] [place] [phone] Dominick Amador MD [address] [place] [address] 04/27/2024 9:30 AM EDT - 04/27/2024 10:15 AM EDT Surgery ENDO [facility], Endoscopy Room [facility] [address] [place] [phone] Dominick Amador MD [address] [place] [address] COLONOSCOPY FLEXIBLE PROXIMAL DIAGNOSTIC 07/24/2024 2:00 PM EST Office Visit Nephrology, [facility] [address] [place] [address] Augusto Lerner MD [address] [place] [address] 10/03/2024 11:00 AM EST Nurse Only Ancillary [address], [place] [address] [place] [address] [place], Nurse Annual Wellness Visit [address] [place] [phone] 02/15/2025 10:00 AM EDT Office Visit Sleep Disorders Ctr [facility] [address] [place] [phone] Debby Cornejo DO [address] [place] [address] Scheduled Procedures Name Priority Associated Diagnoses Date/Ti [...] COPD 03/28/2024 03/28/2023 CKD PHOS USE SMARTSET 57227 05/05/2024 09/0 02/2023, 02/02/2023, 01/11/2022, Additional history exists HbA1c 06/15/2024 12/15/2023, 08/29, 08/04/2023, Additional history exists Diabetic Foot Exam 06/16/2024 06/16/2023, 06/16/2023 GFR 08/23/2024 02/22/2024, 08/29, 08/04/2023, Additional history exists Diabetic Eye Exam 08/24/2024 08/24/2023, , 11/02/2022, Additional history exists Albumin/Creatinine Ratio 09/09/2024 09/09/2023, 11/0 11/2021 Depression Screening 12/21/2024 12/22/2023 CKD HGB USE SMARTSET 21757 02/21/202502/21, 02/22/2024, 02/16/2024, Additional history exists DTaP,Tdap,and [...] Power of Attor kwabena? No Care Teams Cash Office Worker Relationship Specialty Start Date End Date Javy Moscoso DO [address] [place] [address] PCP - General Family Medicine 07/04/23 documented as of this encounter
--- OUTSIDE RECORDS SUMMARY | 2024-02-25 03:29 | External Medical Summary | Summary of Care ---
Author Name Unknown Organization [facility] Address [address] [place] [place] [address] Phone [phone] Care Team Providers Care Environmental Compliance Inspector Name Role Phone Javy Moscoso DO Primary Care Provider + [phone] Reason for Visit * Reason Onset Date Comments Medication Pre-auth 02/17/2024 Monoferric Encounter Details Date Type Department Care Team (Late st Contact Info) Description 02/17/2024 Telephone Hematology/Oncology [facility] [place] [facility] [place] [address] Katt Mullen CRNP [address] [place] [address] Medication Pre-auth (Monoferric) Allergies Active Allergy Reactions Criticality Noted Date Comments Lisinopril Unknown Low 11/15/2022 Verapamil Medium 06/26/2020 Heart Block documented as of this encounter (statuses as of 02/24/2024) Medications Medication Sig Dispensed Refills Start Date [...] the morning. 100 Tablet 3 3 Active Kreyonic 2 w/Device Kit USE DIRECTED TO TEST [...] morning. 90 Capsule 2 4 Active Pen [place] 31G X 5 MMIndications:Typ e 2 diabetes [...] every 10 days. E11.9 Active Dexcom G7 Ict Managers Device Use as directed. Use as directed [...] hyperglycemia, with long-term current use of insulin ([facility]) Inject 40 Units under the skin at bedtime. 45 mL 3 4 Active metFORMIN HCl ER 500 MG Oral Tablet Extended Release 24 Hour (Glucophage XR)Indications:Ty pe 2 diabetes mellitus with stage 3b chronic kidney disease, without long-term current use of insulin (HCC) Take 1 Tablet by mouth daily. 90 Tablet 3 3 02/22/20 24 Discontinued Vitamin D (Ergocalciferol) 1.25 MG (99204 UT) Oral Capsule (Drisdol)Indicati ons:Vitamin D deficiency [...] as of this encounter (statuses as of 02/24/2024) Active Problems Problem Noted Date Diagnosed Date [...] 12/07/2022 Bilateral impacted cerumen 10/22/2022 Atherosclerosis of [place] co ronary artery without angina pectoris 07/15/2022 [...] as of this encounter (statuses as of 02/24/2024) Resolved Problems Problem Noted Date Diagnosed Date [...] as of this encounter (statuses as of 02/24/2024) Immunizations Name Administration Dates Next Due COVID-19 mRNA, LNP-s, No Pre serve, 2-Dose Series (Pfizer) 07/03/2021,12/27/2020,12/06/2020 COVID-19, MRNA-LNP, 23-24, P F, 30 MCG/0.3 mL, 12 YRS AND ABOVE, IM (PFIZER-Comirnaty) 02/22/2024,06/16/2023 Pneumococcal Conjugate Vacci ne, 20-valent ([id number]) 12/07/2022 Pneumococcal Polysaccharide PPV23 (Pneumovax) 09/08/2020 Season [...] Miscellaneous Notes * Telephone Encounter - Ninfa [place] OSA - 02/24/2024 8:18 AM EDT Apt made Pt aware * Telephone Encounter - Amy [place] OSA - 02/23/2024 5:34 PM EDT We received a call from Cyndi, [facility] . She was returning Ninfa's call to schedule the treatment appointment. Please give Cyndi a call back at your earliest convenience at [phone]. Thank you! * Telephone Encounter - Ninfa Dominguez OSA [...] 10:08 AM EDT Order received for Monoferric Harlan plan built and routed to provider Patient [...] Department Care Team (Latest Contact Info) Description 02/27/2024 9:00 AM EDT Hem/Onc Treatment Hematology/Oncolog y Treatment, [place] [address] [place] [phone] [place], Chair [address] Hem On[address] [place] [address] 03/02/2024 8:00 AM EDT Laboratory Laboratory Patient Service [address] [phone] [place], Lab [address] [address] 03/07/2024 9:00 AM EDT Office Visit Family Practice [address] [place] [address] [place] [phone] Javy Moscoso DO [address] [place] [phone] 03/08/2024 8:00 AM EDT Laboratory Laboratory Patient Service [address] [phone] [place], Lab [place] [address] [place] [address] 03/15/2024 11:00 AM EDT Office Visit [facility]ematology[facility]olog [facility] [place] [address] [place] [phone] Katt Mullen CRNP [address] [place] [address] 04/04/2024 9:30 AM EDT Office Visit Cardiology, [facility] [address] [place] [address] Fatoumata Hanna PA-C [address] [place] [address] 04/27/2024 9:30 AM EDT Hospital Encounter ENDO [facility], Endoscopy Room [facility] [address] [place] [phone] Dominick Amador MD [address] [place] [address] 04/27/2024 9:30 AM EDT - 04/27/2024 10:15 AM EDT Surgery ENDO [facility], Endoscopy Room [facility] [address] [place] [phone] Dominick Amador MD [address] [place] [address] COLONOSCOPY FLEXIBLE PROXIMAL DIAGNOSTIC 07/24/2024 2:00 PM EST Office Visit Nephrology, [facility] [address] [place] [address] Augusto Lerner MD [address] [facility] [place] [address] 10/03/2024 11:00 AM EST Nurse Only Ancillary [address], [place] [address] [place] [phone] [place], Nurse Annual Wellness Visit [address] [place] [phone] 02/15/2025 10:00 AM EDT [facility] [address] [place] [address] Cornejo Debby [place], [address] [place] [address] Scheduled Procedures Name Priority Associated Diagnoses Date/Ti [...] COPD 03/28/2024 03/28/2023 CKD PHOS USE SMARTSET 53989 05/05/2024 09/0 02/2023, 02/02/2023, 01/11/2022, Additional history exists HbA1c 06/15/2024 12/15/2023, 08/29, 08/04/2023, Additional history exists Diabetic Foot Exam 06/16/2024 06/16/2023, 06/16/2023 GFR 08/23/2024 02/22/2024, 08/29, 08/04/2023, Additional history exists Diabetic Eye Exam 08/24/2024 08/24/2023, , 11/02/2022, Additional history exists Albumin/Creatinine Ratio 09/09/2024 09/09/2023, 11/0 11/2021 Depression Screening 12/21/2024 12/22/2023 CKD HGB USE SMARTSET 54491 02/21/202502/21, 02/22/2024, 02/16/2024, Additional history exists DTaP,Tdap,and [...] Power of Attor kwabena? No Care Teams Environmental Compliance Inspector Relationship Specialty Start Date End Date Javy Moscoso DO [address] [place] [place] [address] PCP - General Family Medicine 07/04/23 documented as of this encounter
--- OUTSIDE RECORDS SUMMARY | 2024-02-25 03:29 | External Medical Summary ---
Author Name Unknown Address Unknown Organization K01:[facility] [place] [address] [place] [address] Laboratory Report Ordering Provider Test Date Status [place]STON ADEN 02/22/2024 15:13:39 Final Exclude Heart Failure: <300 pg/mL
Diagnose Heart Failure:
Age <50 yr: >450 pg/mL
50-75 yr: >900 pg/mL
>75 yr: >1800 pg/mL
GFR is 30-59 mL/min: >1200 pg/mL or Age- adjusted values
GFR <30 mL/min: do not use, not reliable

Prognostic threshold: 1000 pg/mL Observation Date Value Abnormality Reference (Units ) Status BNP, Pro-hormone 02/22/2024 15:13:39 399 Above high no rmal <300 (pg/mL) Final Performing Location [facility] [place] [address] [place] [address]
--- OUTSIDE RECORDS SUMMARY | 2024-02-25 03:29 | External Medical Summary ---
Author Name Unknown Address Unknown Organization K01:[facility] [place] [address] [facility]. [facility] [id number] Laboratory Report Ordering Provider Test Date Status [place] ADEN 02/22/2024 15:13:39 Final Observation Date Value Abnormality Reference (Units ) Status SYNC LEUKOCYTES IN BLOOD BY AUTOMATED COUNT 02/22/2024 15:13:39 5.39 4.00-10.80 (K/uL) Final Segs 02/22/2024 15:13:39 71.3 40.0-75.0 (%) Final Lymphs % 02/22/2024 15:13:39 16.3 Below low normal 18.0-42.0 (%) Final Monos 02/22/2024 15:13:39 9.6 1.0-11.0 (%) Final Eosinophils 02/22/2024 15:13:39 1.3 0.0-6.0 (%) Final Basos 02/22/2024 15:13:39 1.1 0.0-2.0 (%) Final Immature Granulocyte, Percent 02/22/2024 15:13:39 0.4 0.0-2.0 (%) Final Absolute Segs 02/22/2024 15:13:39 3.84 1.80-7.70 (K/uL) Final Lymphs, absolute 02/22/2024 15:13:39 0.88 Below low normal 1.00-4.80 (K/ul) Final Monos, Abs 02/22/2024 15:13:39 0.52 0.00-1.10 (K/uL) Final Eos, Abs 02/22/2024 15:13:39 0.07 0.00-0.70 (K/uL) Final Basos, Abs 02/22/2024 15:13:39 0.06 0.00-0.20 (K/uL) Final Immature Granulocytes, Number 02/22/2024 15:13:39 0.02 0.00-0.20 (K/uL) Final Performing Location [facility] [place] [address] [facility] [address]
--- OUTSIDE RECORDS SUMMARY | 2024-02-25 03:29 | External Medical Summary | Summary of Care ---
Author Name Unknown Organization [facility] Address [address] [place] [address] Phone [phone] Care Team Providers Care Audiology Doctor Name Role Phone Javy Moscoso DO Primary Care Provider [phone] Reason for Visit * Reason Comments Outpatient Testing Encounter Details Date Type Department Care Team (Late st Contact Info) Description 02/22/2024 3:10 PM EDT Laboratory Laboratory, [place] [address] [place] [address] [place], [facility] [address] [place] [address] Iron deficiency anemia due to chronic blood loss; Chest pain, unspecified type; Palpitations; BEARDEN (dyspnea on exertion) Allergies Active Allergy Reactions Criticality Noted Date Comments Lisinopril Unknown Low 11/15/2022 Verapamil Medium 06/26/2020 Heart Block documented as of this encounter (statuses as of 02/22/2024) Medications Medication Sig Dispensed Refills Start Date [...] the morning. 100 Tablet 3 08/05/2023 Active Solvonics Ultra 2 w/Device Kit USE DIRECTED TO [...] morning. 90 Capsule 2 10/04/2023 Active Pen [place] 31G X 5 MMIndications:Type 2 diabetes mellitus [...] every 10 days. E11.9 Active Dexcom G7 Direct Care Worker Device Use as directed. Use as directed [...] hyperglycemia, with long-term current use of insulin ([facility]) USE DIRECTED UP TO FOUR TIMES DAILY [...] hyperglycemia, with long-term current use of insulin ([facility]) Inject 40 Units under the skin at bedtime. 45 mL 3 01/17/2024 Active Vitamin D (Ergocalciferol) 1.25 MG (44919 UT) Oral Capsule (Drisdol)Indication s:Vitamin D deficiency Take 1 Capsule by mouth Every Month. 6 Capsule 3 02/22/2024 Active metFORMIN HCl ER 500 MG Oral Tablet Extended Release 24 Hour (Glucophage XR)Indications:Type 2 diabetes mellitus with stage 3b chronic kidney disease, without long-term current use of insulin ([facility]) Take 1 Tablet by mouth at bedtime. 02/22/2024 Active Hospital, Clinic, or Other Facility Administered Medication Ordered Dose Route Frequency Start Date End Date Status Albuterol Sulfate (Proventil) (2.5 MG/3ML) 0.083% inhalation solution 2.5 mgIndications:ILD (interstitial lung disease) (HCC),BEARDEN (dyspnea on exertion) 2.5 mg NEBULIZER Q4H PRN 12/12/2023 Act jose documented as of this encounter (statuses as of 02/22/2024) Active Problems Problem Noted Date Diagnosed Date [...] 12/07/2022 Bilateral impacted cerumen 10/22/2022 Atherosclerosis of [place] co ronary artery without angina pectoris 07/15/2022 [...] as of this encounter (statuses as of 02/22/2024) Resolved Problems Problem Noted Date Diagnosed Date [...] as of this encounter (statuses as of 02/22/2024) Immunizations Name Administration Dates Next Due COVID-19 mRNA, LNP-s, No Pre serve, 2-Dose Series (Illumitex) 07/03/2021,12/27/2020,12/06/2020 COVID-19, MRNA-LNP, 23-24, P F, 30 MCG/0.3 mL, 12 YRS AND ABOVE, IM (PFIZER-Comirnaty) 02/22/2024,06/16/2023 Pneumococcal Conjugate Vacci ne, 20-valent ([id number]) 12/07/2022 Pneumococcal Polysaccharide PPV23 (Pneumovax) 09/08/2020 Season Influenza, Quad, PF, Adjuvanted, 65+ Yrs, IM (FLUAD) 06/03/2020 Seasonal Influenza Virus Vac cine, Unspecified Formulation 05/22/2019 Seasonal Influenza, Quadriva lent Hd (Fluzone Hd) 06/16/2023,05/06/2022,06/13/2021 TDAP (age 10 and older)(Boostrix) 03/17/2021 Zoster Vaccine Recombinant (Shingrix) 11/17/2021 documented as of this encounter Social History Tobacco Use Types Packs/Day Years Used Date Smoking Tobacco: Former Cigarettes 1994 Passive Smoke Exposure: Past Smokeless Tobacco: [...] Department Care Team (Latest Contact Info) Description 02/22/2024 3:30 PM EDT Imaging Radiology, [place] [address] [place] M[place]arthy [phone] Arrived 03/02/2024 8:00 AM EDT Laboratory Laboratory Patient Service [facility] [address] [place] [phone] [place], [facility] [place] [address] [place] [address] 03/07/2024 9:00 AM EDT Office Visit Family Practice [facility], [place] [address] [place] [phone] Javy Moscoso DO [address] [place] [address] 03/08/2024 8:00 AM EDT Laboratory Laboratory Patient Service [facility] [address] [place] [phone] [place], Lab [place] [address] [place] [address] 03/15/2024 11:00 AM EDT Office Visit Hematology/Oncolog y [facility] [address] [facility] [address] Katt Mullen CRNP [address] [place] [address] 04/04/2024 9:30 AM EDT Office Visit Cardiology, [facility] [address] [facility] [place] [address] Fatoumata Hanna PA-C [address] [place] [phone] 04/27/2024 9:30 AM EDT Hospital Encounter ENDO [facility], Endoscopy Room [facility] [address] [place] [address] Dominick Amador MD [address] [place] [address] 04/27/2024 9:30 AM EDT - 04/27/2024 10:15 AM EDT Surgery ENDO [facility], Endoscopy Room [facility] [address] [place] [address] Dominick Amador MD [address] [place] [address] COLONOSCOPY FLEXIBLE PROXIMAL DIAGNOSTIC 07/24/2024 2:00 PM EST Office Visit Nephrology, [facility] [address] [facility] [place] [address] Augusto Lerner MD [address] [place] [address] 10/03/2024 11:00 AM EST Nurse Only Ancillary [facility], [place] [address] [place] [address] [place], Nurse Annual Wellness Visit [address] [place] [address] 02/15/2025 10:00 AM EDT Office Visit [facility] Disorders Ctr [facility] [address] [place] [address] Debby Cornejo DO [address] [place] [address] Pending Results Name Type Priority Associated Diagnoses Date /Time CBC WITH WBC DIFFERENTIAL Lab Routine Iron deficiency anemia due to chronic blood loss 02/22/2024 3:13 PM EDT COMPREHENSIVE METABOLIC PANEL Lab Routine Chest pain, unspecified type Palpitations BEARDEN (dyspnea on exertion) 02/22/2024 3:13 PM EDT TSH WITH FREE T4 IF INDICATED Lab Routine Chest pain, unspecified type Palpitations 02/22/2024 3:13 PM EDT BNP, NT-PRO Lab Routine Chest pain, unspecified type Palpitations BEARDEN (dyspnea on exertion) 02/22/2024 3:13 PM EDT CBC Lab Routine Iron deficiency anemia due to chronic blood loss 02/22/2024 3:13 PM EDT DIFFERENTIAL, AUTOMATED Lab Routine Iron deficiency anemia due to chronic blood loss 02/22/2024 3:13 PM EDT Scheduled Procedures Name Priority Associated Diagnoses Date/Ti [...] COPD 03/28/2024 03/28/2023 CKD PHOS USE SMARTSET 64245 05/05/2024 090 02/2023, 02/02/2023, 01/11/2022, Additional history exists HbA1c 06/15/2024 12/15/2023, 08/29, 08/04/2023, Additional history exists Diabetic Foot Exam 06/16/2024 06/16/2023, 06/16/2023 Diabetic Eye Exam 08/24/2024 08/24/2023, , 11/02/2022, Additional history exists Albumin/Creatinine Ratio 09/09/2024 09/09/2023, 1111/2021 Depression Screening 12/21/2024 12/22/2023 CKD HGB USE SMARTSET 24697 02/15/202502/15, 02/16/2024, 09/08/2023, Additional history exists DTaP,Tdap,and [...] deficiency anemia due to chronic blood loss Iron deficiency anemia secondary to blood loss (chronic) Chest pain, unspecified type Palpitations BEARDEN (dyspnea on exertion) Other dyspnea and respiratory abnormality Iron deficiency anemia Iron deficiency anemia, unspecified [...] Power of Attor kwabena? No Care Teams Audiology Doctor Relationship Specialty Start Date End Date Javy Moscoso DO [address] [place] Mccarthy [phone] PCP - General Family Medicine 07/04/23 documented as of this encounter
--- OUTSIDE RECORDS SUMMARY | 2024-02-25 03:29 | External Medical Summary | Summary of Care ---
Author Name Unknown Organization [facility] Address [address] [facility] [place] [address] Phone [phone] Care Team Providers Care Physician Gynecologist Name Role Phone Javy Moscoso DO Primary Care Provider + [phone] Reason for Visit * Reason Onset Date Comments Medication Pre-auth 02/17/2024 Monoferric Encounter Details Date Type Department Care Team (Late st Contact Info) Description 02/17/2024 Telephone Hematology/Oncology [facility] [place] [facility] [place] [address] Katt Mullen CRNP [address] [place] [address] Medication Pre-auth (Monoferric) Allergies Active [...] the morning. 100 Tablet 3 3 Active [employer] 2 w/Device Kit USE DIRECTED TO TEST [...] morning. 90 Capsule 2 4 Active Pen [place] 31G X 5 MMIndications:Typ e 2 diabetes [...] every 10 days. E11.9 Active Dexcom G7 On Air Announcer Device Use as directed. Use as directed [...] hyperglycemia, with long-term current use of insulin ([facility]) Inject 40 Units under the skin at bedtime. 45 mL 3 4 Active metFORMIN HCl ER 500 MG Oral Tablet Extended Release 24 Hour (Glucophage XR)Indications:Ty pe 2 diabetes mellitus with stage 3b chronic kidney disease, without long-term current use of insulin (HCC) Take 1 Tablet by mouth daily. 90 Tablet 3 3 02/22/20 24 Discontinued Vitamin D (Ergocalciferol) 1.25 MG (57175 UT) Oral Capsule (Drisdol)Indicati ons:Vitamin D deficiency [...] 12/07/2022 Bilateral impacted cerumen 10/22/2022 Atherosclerosis of [place] co ronary artery without angina pectoris 07/15/2022 [...] (PFIZER-Comirnaty) 02/22/2024,06/16/2023 Pneumococcal Conjugate Vacci ne, 20-valent ([id number]) 12/07/2022 Pneumococcal Polysaccharide PPV23 (Pneumovax) 09/08/2020 Season [...] encounter Miscellaneous Notes * Telephone Encounter - Amy Del Rio OSA - 02/23/2024 5:34 PM EDT We received a call from Cyndi, [facility] . She was returning Ninfa's call to schedule the treatment appointment. Please give Cyndi a call back at your earliest convenience at [phone]. Thank you! * Telephone Encounter - Ninfa [...] 10:08 AM EDT Order received for Monoferric Register plan built and routed to provider Patient [...] 8:00 AM EDT Laboratory Laboratory Patient Service [place], [place] [address] [place] [address] [place], Lab [address] [address] 03/07/2024 9:00 AM EDT Office Visit Family Practice [address] [place] [address], [place] [address] [place] [phone] Javy Moscoso, DO [address] [place]cc[place] [phone] 03/08/2024 8:00 AM EDT Laboratory Laboratory Patient Service [place], [place] [address] [place] [phone] [place], [place] [address] [place] [address] 03/15/2024 11:00 AM EDT Office Visit Hematology/Oncolog y [facility] [place] [address] [place] [address] Katt Mullen CRNP [address] [place] [address] 04/04/2024 9:30 AM EDT Office Visit Cardiology, [facility] 132 [facility] [place] [address] Fatoumata Hanna PA-C [address] [place] [address] 04/27/2024 9:30 AM EDT Hospital Encounter ENDO [facility], Endoscopy Room [facility] [address] [place] [phone] Dominick Amador MD [address] [place] [address] 04/27/2024 9:30 AM EDT - 04/27/2024 10:15 AM EDT Surgery ENDO [facility], Endoscopy Room [facility] [address] [place] [phone] Dominick Amador MD [address] [place] [address] COLONOSCOPY FLEXIBLE PROXIMAL DIAGNOSTIC 07/24/2024 2:00 PM EST Office Visit Nephrology, [facility] [place] [address] Augusto Lerner MD [address] [place] [address] 10/03/2024 11:00 AM EST Nurse Only Ancillary [address], [place] [address] [place] Mcc[place] [phone] [place], Nurse Annual Wellness Visit [address] [place] [address] 02/15/2025 10:00 AM EDT Office Visit [facility] [place] [address] [place] [phone] Debby Cornejo DO [address] [place] [address] Scheduled Procedures Name Priority Associated Diagnoses Date/Ti [...] COPD 03/28/2024 03/28/2023 CKD PHOS USE SMARTSET 09009 05/05/2024 09/0 02/2023, 02/02/2023, 01/11/2022, Additional history exists HbA1c 06/15/2024 12/15/2023, 08/29, 08/04/2023, Additional history exists Diabetic Foot Exam 06/16/2024 06/16/2023, 06/16/2023 GFR 08/23/2024 02/22/2024, 08/29, 08/04/2023, Additional history exists Diabetic Eye Exam 08/24/2024 08/24/2023, , 11/02/2022, Additional history exists Albumin/Creatinine Ratio 09/09/2024 09/09/2023, 11/0 11/2021 Depression Screening 12/21/2024 12/22/2023 CKD HGB USE SMARTSET 21319 02/21/202502/21, 02/22/2024, 02/16/2024, Additional history exists DTaP,Tdap,and [...] Power of Attor kwabena? No Care Teams Physician Gynecologist Relationship Specialty Start Date End Date Javy Moscoso DO [address] [place] [address] PCP - General Family Medicine 07/04/23 documented as of this encounter
--- OUTSIDE RECORDS SUMMARY | 2024-02-25 03:29 | External Medical Summary | Summary of Care ---
Author Name Unknown Organization [facility] Address [address] [place] [address] Phone [phone] Care Team Providers Care Occupational Therapy Supervisor Name Role Phone Javy Moscoso DO Primary Care Provider + [phone] Reason for Visit * Reason Onset Date Comments Test Results 02/22/2024 Encounter Details Date Type Department Care Team (Late st Contact Info) Description 02/22/2024 Telephone Family Practice [facility], [place] [address] [place] [phone] Javy Moscoso DO [address] [place] [address] Test Results Allergies Active [...] the morning. 100 Tablet 3 08/05/2023 Active Stakeforce Ultra 2 w/Device Kit USE DIRECTED TO [...] morning. 90 Capsule 2 10/04/2023 Active [place] 31G X 5 MMIndications:Type 2 diabetes mellitus [...] every 10 days. E11.9 Active Dexcom G7 Marketing Secretary Device Use as directed. Use as directed [...] hyperglycemia, with long-term current use of insulin ([facility]) USE DIRECTED UP TO FOUR [...] hyperglycemia, with long-term current use of insulin ([facility]) Inject 40 Units under the skin at bedtime. 45 mL 3 01/17/2024 Active Vitamin D (Ergocalciferol) 1.25 MG (49013 UT) Oral Capsule (Drisdol)Indication s:Vitamin D deficiency [...] inhalation solution 2.5 mgIndications:ILD (interstitial lung disease) ([facility]),BEARDEN (dyspnea on exertion) 2.5 mg [...] 12/07/2022 Bilateral impacted cerumen 10/22/2022 Atherosclerosis of [place] co ronary artery without angina pectoris 07/15/2022 [...] mRNA, LNP-s, No Pre serve, 2-Dose Series ([employer]) 07/03/2021,12/27/2020,12/06/2020 COVID-19, MRNA-LNP, 23-24, P F, 30 MCG/0.3 mL, 12 YRS AND ABOVE, IM (PFIZER-Comirnaty) 02/22/2024,06/16/2023 Pneumococcal Conjugate Vacci ne, 20-valent ([id number]) 12/07/2022 Pneumococcal Polysaccharide PPV23 (Pneumovax) 09/08/2020 Season [...] No 12/22/2023 Does the household have a [facility] source of income? (Household - [...] encounter Miscellaneous Notes * Telephone Encounter - Javy Moscoso DO - 02/22/2024 5:02 PM EDT Chest x-ray is normal. Advise continue present medical therapy documented in this encounter Plan of Treatment Upcoming Encounters Date Type Department Care Team (Latest Contact Info) Description 03/02/2024 8:00 AM EDT Laboratory Laboratory [facility] Service Center, [place] [address] [place] [address] [place], Lab [place] [address] [place] [address] 03/07/2024 9:00 AM EDT Office Visit Family Practice [address] [place] [address] [place] [address] [place] [phone] Javy Moscoso DO [address] [place] [phone] 03/08/2024 8:00 AM EDT Laboratory Laboratory Patient Service Center, [place] [address] [place] [phone] [place], Lab [place] [address] [place] [address] 03/15/2024 11:00 AM EDT Office Visit Hematology/Oncolog y [facility] [address] [facility] [address] Katt Mullen CRNP [address] [place] [address] 04/04/2024 9:30 AM EDT Office Visit Cardiology, [facility] 132 [facility] [place] [address] Fatoumata Hanna PA-C [address] [place] [address] 04/27/2024 9:30 AM EDT Hospital Encounter ENDO [facility], Endoscopy Room [facility] [address] [place] [phone] Dominick Amador MD [address] [place] [address] 04/27/2024 9:30 AM EDT - 04/27/2024 10:15 AM EDT Surgery ENDO [facility], Endoscopy Room [facility] [address] [place] [address] Dominick Amador MD [address] [place] [address] COLONOSCOPY FLEXIBLE PROXIMAL DIAGNOSTIC 07/24/2024 2:00 PM EST Office Visit Nephrology, [facility] [place] [address] Augusto Lerner MD [facility] [place] [address] 10/03/2024 11:00 AM EST Nurse Only Ancillary [facility], [place] [address] [place] [address] [place], Nurse Annual Wellness Visit [address] [place] [address] 02/15/2025 10:00 AM EDT [facility] [address] [place] [address] Debby Cornejo DO [address] [place] [address] Scheduled Procedures Name Priority Associated Diagnoses Date/Ti [...] COPD 03/28/2024 03/28/2023 CKD PHOS USE SMARTSET 79724 05/05/202402/2023, 02/02/2023, 01/11/2022, Additional history exists HbA1c 06/15/2024 12/15/2023, 08/29, 08/04/2023, Additional history exists Diabetic Foot Exam 06/16/2024 06/16/2023, 06/16/2023 Diabetic Eye Exam 08/24/2024 08/24/2023, , 11/02/2022, Additional history exists Albumin/Creatinine Ratio 09/09/2024 09/09/2023, 11/2021 Depression Screening 12/21/2024 12/22/2023 CKD HGB USE SMARTSET 95533 02/15/202502/15, 02/16/2024, 09/08/2023, Additional history exists DTaP,Tdap,and [...] Power of Attor kwabena? No Care Teams Occupational Therapy Supervisor Relationship Specialty Start Date End Date Javy Moscoso DO [address] [place] [address] PCP - General Family Medicine 07/04/23 documented as of this encounter
--- OUTSIDE RECORDS SUMMARY | 2024-02-25 03:29 | External Medical Summary ---
Author Name Unknown Address Unknown Organization K01:LABORATORY [facility] - [facility] [place] [address] [address] [facility] [address] Laboratory Report Ordering Provider Test Date Status HOUSTON ADEN 02/22/2024 15:13:39 Final Observation Date Value Abnormality Reference (Units ) Status WBC, Total 02/22/2024 15:13:39 5.39 4.00-10.80 (K/uL) Final RBC 02/22/2024 15:13:39 2.66 4.50-5.25 (M/uL) Final Hemoglobin 02/22/2024 15:13:39 6.8 Below low normal 14.0-16.8 (g/dL) Final HCT 02/22/2024 15:13:39 23.4 Below low normal 40.0-48.4 (%) Final MCV 02/22/2024 15:13:39 88.0 82.0-99.5 (fL) Final MCH 02/22/2024 15:13:39 25.6 27.0-34.0 (pg) Final MCHC 02/22/2024 15:13:39 29.1 32.0-36.0 (g/dL) Final RDW 02/22/2024 15:13:39 14.6 11.5-15.5 (%) Final Platelets 02/22/2024 15:13:39 165 140-400 (K/uL) Final MPV 02/22/2024 15:13:39 13.0 6.6-11.1 (fL) Final Nucleated erythrocytes/100 leukocytes [Ratio] in Blood by Automated count 02/22/2024 15:13:39 0 <=0 (/100 WBCs) Final Performing Location [facility] [address] [facility] [address] [facility] [address]
--- OUTSIDE RECORDS SUMMARY | 2024-02-25 03:29 | External Medical Summary ---
Author Name Unknown Address Unknown Organization K01:[facility]ORY [facility] [place] - [address] [facility] [place] [address] Laboratory Report Ordering Provider Test Date Status HOUSTON ADEN 02/22/2024 15:13:39 Final Observation Date Value Abnormality Reference (Units ) Status BUN 02/22/2024 15:13:39 26 Above high normal 6-20 (mg/dL) Final Creatinine 02/22/2024 15:13:39 1.9 Above high normal 0.6-1.2 (mg/dL) Final Glomerular filtration rate/1.73 sq M.predicted [Volume Rate/Area] in Serum, Plasma or Blood by Creatinine-based formula (CKD-EPI) 02/22/2024 15:13:39 37 Below low normal >=60 (mL/min) Final eGFR is calculated based on the CKD-EPI 2020 equation Sodium 02/22/2024 15:13:39 139 135-146 (m mol/L) Final Potassium 02/22/2024 15:13:39 4.5 3.5-5.1 (m mol/L) Final Cl 02/22/2024 15:13:39 100 98-107 (mm ol/L) Final CO2 02/22/2024 15:13:39 28 22-32 (mmo l/L) Final Anion gap 02/22/2024 15:13:39 11 7-15 (mmol /L) Final Glucose 02/22/2024 15:13:39 194 Above high normal 70 -120 (mg/dL) Final Albumin 02/22/2024 15:13:39 4.1 3.8-5.0 (g /dL) Final AST (Aspartate aminotransferase) 02/22/2024 15:13:39 20 10-50 (U/L) Fin al Alk Phos 02/22/2024 15:13:39 44 35-130 (U/ L) Final Bilirubin, Total 02/22/2024 15:13:39 0.3 <=1 .2 (mg/dL) Final Calcium 02/22/2024 15:13:39 8.5 8.4-10.2 ( mg/dL) Final Protein 02/22/2024 15:13:39 5.7 Below low normal 6.0 -8.3 (g/dL) Final ALT (Alanine aminotransferase) 02/22/2024 15:13:39 23 10-50 (U/L) Adan vences Performing Location [facility]ORY [facility] [place] - [address] [facility] [address]
--- OUTSIDE RECORDS SUMMARY | 2024-02-25 03:30 | External Medical Summary | Summary of Care ---
Author Name Unknown Organization [facility] Address [address] [facility] [place] [address] Phone [phone] Care Team Providers Care It Operations Analyst Name Role Phone Javy Moscoso DO Primary Care Provider + [phone] Reason for Visit * Reason Onset Date Comments Medication Pre-auth 02/17/2024 Monoferric Encounter Details Date Type Department Care Team (Late st Contact Info) Description 02/17/2024 Telephone Hematology/Oncology [facility] [place] [address] [facility] [place] [address] Katt Mullen CRNP [address] [place] [address] Medication Pre-auth (Monoferric) Allergies Active Allergy Reactions Criticality Noted Date Comments Lisinopril Unknown Low 11/15/2022 Verapamil Medium 06/26/2020 Heart Block documented as of this encounter (statuses as of 02/20/2024) Medications Medication Sig Dispensed Refills Start Date [...] the morning. 100 Tablet 3 08/05/2023 Active [employer] 2 w/Device Kit USE DIRECTED TO TEST [...] morning. 90 Capsule 2 10/04/2023 Active Pen [place] 31G X 5 MMIndications:Type 2 diabetes mellitus [...] every 10 days. E11.9 Active Dexcom G7 [place] Device Use as directed. Use as directed [...] long-term current use of insulin ([facility]) USE DIRECTED UP TO FOUR TIMES DAILY FOR HOME GLUCOSE TESTING 400 Strip 3 12/22/2023 Active tiZANidine HCl 2 MG Oral Tablet (Zanaflex)Indication s:Spinal stenosis of lumbar region without neurogenic claudication Take 1 Tablet by mouth at bedtime as needed for Muscle spasms. 90 Tablet 1 01/02/2024 Active Vitamin D (Ergocalciferol) 1.25 MG (85733 UT) Oral Capsule (Drisdol)Indications :Vitamin D deficiency Take 1 Capsule by mouth Every Month. 6 Capsule 2024 07/11/2024 Active Insulin Glargine Solostar 100 UNIT/ML Subcutaneous Solution Pen-injector (Lantus SoloStar)Indications :Type 2 diabetes mellitus with hyperglycemia, with long-term current use of insulin ([facility]) Inject 40 Units under the skin at bedtime. 45 mL 3 01/17/2024 Active Hospital, Clinic, or Other Facility Administered Medication Ordered Dose Route Frequency Start Date End Date Status Albuterol Sulfate (Proventil) (2.5 MG/3ML) 0.083% inhalation solution 2.5 mgIndications:ILD (interstitial lung disease) ([facility]),BEARDEN (dyspnea on exertion) 2.5 mg NEBULIZER Q4H PRN 12/12/2023 Act jose documented as of this encounter (statuses as of 02/20/2024) Active Problems Problem Noted Date Diagnosed Date [...] 12/07/2022 Bilateral impacted cerumen 10/22/2022 Atherosclerosis of [place] co ronary artery without angina pectoris 07/15/2022 [...] as of this encounter (statuses as of 02/20/2024) Resolved Problems Problem Noted Date Diagnosed Date [...] protocol Symptomatic bradycardia 02/14/201901/28 Hyperkalemia 02/14/2019 02/18/2019 ARNOLOD (acute kidney injury) 02/14/2019 Acute respiratory failure with hypercapnia 02/14/2019 02/18/2019 Respiratory acidosis 02/14/2019 019 Lactic acidosis 02/14/2019 02/18/2019 documented as of this encounter (statuses as of 02/20/2024) Immunizations Name Administration Dates Next Due COVID-19 mRNA, LNP-s, No Pre serve, 2-Dose Series ([employer]) 07/03/2021,12/27/2020,12/06/2020 COVID-19, MRNA-LNP, 23-24, P F, 30 MCG/0.3 mL, 12 YRS AND ABOVE, IM (PFIZER-Comirnaty) 06/16/2023 Pneumococcal Conjugate Vacci ne, 20-valent ([id number]) 12/07/2022 Pneumococcal Polysaccharide PPV23 (Pneumovax) 09/08/2020 Season Influenza, Quad, PF, Adjuvanted, 65+ Yrs, IM (FLUAD) 06/03/2020 Seasonal Influenza Virus Vac cine, Unspecified Formulation 05/22/2019 Seasonal Influenza, Quadriva lent Hd (Fluzone Hd) 06/16/2023,05/06/2022,06/13/2021 TDAP (age 10 and older)(Boostrix) 03/17/2021 Zoster Vaccine Recombinant (Shingrix) 11/17/2021 documented as of this encounter Social History Tobacco Use Types Packs/Day Years Used Date Smoking Tobacco: Former Cigarettes 5 - 1994 Passive Smoke Exposure: Past Smokeless [...] encounter Miscellaneous Notes * Telephone Encounter - Nhung Gutiérrez LPN - 02/20/2024 10:08 AM EDT Order received for Monoferric [place] plan built and routed to provider Patient [...] 8:00 AM EDT Laboratory Laboratory Patient Service [place], [place] [address] [place] [phone] [place], Lab [address] [address] 03/07/2024 9:00 AM EDT Office Visit Family [facility] 65 [facility], [place] [address] [place] [address] Javy Moscoso DO [address] [place] [address] 03/08/2024 8:00 AM EDT Laboratory Laboratory Patient Service [place], [place] [address] [facility] [phone] [place], Lab [place] [address] [place] [address] 03/15/2024 11:00 AM EDT Office Visit Hematology/Oncolog y [facility] [place] [address] [place] [address] Katt Mullen CRNP [address] [place] [address] 04/27/2024 9:30 AM EDT Hospital Encounter ENDO [facility], Endoscopy Room [facility] [address] [place] [phone] Dominick Amador MD [address] [place] [address] 04/27/2024 9:30 AM EDT - 04/27/2024 10:15 AM EDT Surgery ENDO [facility], Endoscopy Room [facility] [address] [place] [phone] Dominick Amador MD [address] [place] [address] COLONOSCOPY FLEXIBLE PROXIMAL DIAGNOSTIC 07/24/2024 2:00 PM EST Office Visit Nephrology, [facility] 200 [facility] [place] [address] Augusto Lerner MD 200 [facility] [place] [address] 10/03/2024 11:00 AM EST Nurse Only Ancillary [address], [place] [address] [place] [phone] [place], Nurse Annual Wellness Visit [address] [place] [phone] 02/15/2025 10:00 AM EDT Office Visit [facility] [place] [address] [place] [phone] Debby Cornejo DO [address] [place] [address] Scheduled Procedures Name Priority Associated Diagnoses Date/Ti [...] COPD 03/28/2024 03/28/2023 CKD PHOS USE SMARTSET 62875 05/05/202402/2023, 02/02/2023, 01/11/2022, Additional history exists HbA1c 06/15/2024 12/15/2023, 08/29, 08/04/2023, Additional history exists Diabetic Foot Exam 06/16/2024 06/16/2023, 06/16/2023 Diabetic Eye Exam 08/24/2024 08/24/2023, , 11/02/2022, Additional history exists Albumin/Creatinine Ratio 09/09/2024 09/09/2023, 11/2021 Depression Screening 12/21/2024 12/22/2023 CKD HGB USE SMARTSET 78485 02/15/202502/15, 02/16/2024, 09/08/2023, Additional history exists DTaP,Tdap,and [...] Power of Attor kwabena? No Care Teams It Operations Analyst Relationship Specialty Start Date End Date Javy Moscoso DO [address] [place] [address] PCP - General Family Medicine 07/04/23 documented as of this encounter
--- OUTSIDE RECORDS SUMMARY | 2024-02-25 03:30 | External Medical Summary | Summary of Care ---
Author Name Unknown Organization [facility] Address [address] [place] [facility] [place] [address] Phone [phone] Care Team Providers Care Silk Screen Cutter Name Role Phone Javy Moscoso DO Primary Care Provider + [phone] Reason for Visit * Reason Onset Date Comments Medication Pre-auth 02/17/2024 Monoferric Encounter Details Date Type Department Care Team (Late st Contact Info) Description 02/17/2024 Telephone Hematology/Oncology [facility] [place] 200 [facility] [place] [address] Katt Mullen CRNP [address] [place] [address] Medication Pre-auth (Monoferric) Allergies Active [...] the morning. 100 Tablet 3 08/05/2023 Active [employer] 2 w/Device Kit USE DIRECTED TO TEST [...] morning. 90 Capsule 2 10/04/2023 Active Pen [place] 31G X 5 MMIndications:Type 2 diabetes mellitus [...] every 10 days. E11.9 Active Dexcom G7 [place] Device Use as directed. Use as directed [...] hyperglycemia, with long-term current use of insulin ([facility]) USE DIRECTED UP TO FOUR TIMES DAILY FOR HOME GLUCOSE TESTING 400 Strip 3 12/22/2023 Active tiZANidine HCl 2 MG Oral Tablet (Zanaflex)Indication s:Spinal stenosis of lumbar region without neurogenic claudication Take 1 Tablet by mouth at bedtime as needed for Muscle spasms. 90 Tablet 1 01/02/2024 Active Vitamin D (Ergocalciferol) 1.25 MG (96731 UT) Oral Capsule (Drisdol)Indications :Vitamin D deficiency Take 1 Capsule by mouth Every Month. 6 Capsule 2024 07/11/2024 Active Insulin Glargine Solostar 100 UNIT/ML Subcutaneous Solution Pen-injector (Lantus SoloStar)Indications :Type 2 diabetes mellitus with hyperglycemia, with long-term current use of insulin ([facility]) Inject 40 Units under the skin at bedtime. 45 mL 3 01/17/2024 Active Hospital, Clinic, or Other Facility Administered Medication Ordered Dose Route Frequency Start Date End Date Status Albuterol Sulfate (Proventil) (2.5 MG/3ML) 0.083% inhalation solution 2.5 mgIndications:ILD (interstitial lung disease) ([facility]),BEARDEN (dyspnea on exertion) 2.5 mg NEBULIZER [...] 12/07/2022 Bilateral impacted cerumen 10/22/2022 Atherosclerosis of [place] co ronary artery without angina pectoris 07/15/2022 [...] mRNA, LNP-s, No Pre serve, 2-Dose Series ([employer]) 07/03/2021,12/27/2020,12/06/2020 COVID-19, MRNA-LNP, 23-24, P F, 30 MCG/0.3 mL, 12 YRS AND ABOVE, IM (PFIZER-Comirnaty) 06/16/2023 Pneumococcal Conjugate Vacci ne, 20-valent ([id number]) 12/07/2022 Pneumococcal Polysaccharide PPV23 (Pneumovax) 09/08/2020 Season [...] 10:08 AM EDT Order received for Monoferric [place] plan built and routed to provider Patient [...] 8:00 AM EDT Laboratory Laboratory Patient Service [place], [place] [address] [place] [phone] [place], Lab [address] [address] 03/07/2024 9:00 AM EDT Office Visit Family [facility] 65 [facility], [place] [address] [place] [address] Javy Moscoso DO [address] [place] [address] 03/08/2024 8:00 AM EDT Laboratory Laboratory Patient Service [place], [place] 68 [facility] [place] [phone] [place], Lab [place] [address] [place] [address] 03/15/2024 11:00 AM EDT Office Visit Hematology/Oncolog y [facility] [place] [address] [place] [address] Katt Mullen CRNP [address] [place] [address] 04/27/2024 9:30 AM EDT Hospital Encounter ENDO [facility], Endoscopy Room [facility] [address] [place] [phone] Dominick Amador MD [address] [place] [address] 04/27/2024 9:30 AM EDT - 04/27/2024 10:15 AM EDT Surgery ENDO [facility], Endoscopy Room [facility] [address] [place] [phone] Dominick Aamdor MD [address] [place] [address] COLONOSCOPY FLEXIBLE PROXIMAL DIAGNOSTIC 07/24/2024 2:00 PM EST Office Visit Nephrology, [facility] 200 [facility] [place] [address] Augusto Lerner MD 200 [facility] [place] [address] 10/03/2024 11:00 AM EST Nurse Only Ancillary [address], [place] [address] [place] [phone] [place], Nurse Annual Wellness Visit [address] [place] [phone] 02/15/2025 10:00 AM EDT Office Visit [facility] [place] [address] [place] [phone] Debby Cornejo DO [address] [place] [address] Scheduled Procedures Name Priority Associated Diagnoses Date/Ti [...] COPD 03/28/2024 03/28/2023 CKD PHOS USE SMARTSET 23117 05/05/202402/2023, 02/02/2023, 01/11/2022, Additional history exists HbA1c 06/15/2024 12/15/2023, 08/29, 08/04/2023, Additional history exists Diabetic Foot Exam 06/16/2024 06/16/2023, 06/16/2023 Diabetic Eye Exam 08/24/2024 08/24/2023, , 11/02/2022, Additional history exists Albumin/Creatinine Ratio 09/09/2024 09/09/2023, 11/2021 Depression Screening 12/21/2024 12/22/2023 CKD HGB USE SMARTSET 40920 02/15/202502/15, 02/16/2024, 09/08/2023, Additional history exists DTaP,Tdap,and [...] Power of Attor kwabena? No Care Teams Silk Screen Cutter Relationship Specialty Start Date End Date Javy Moscoso DO [address] [place] [address] PCP - General Family Medicine 07/04/23 documented as of this encounter
--- OUTSIDE RECORDS SUMMARY | 2024-02-25 03:30 | External Medical Summary | Summary of Care ---
Author Name Unknown Organization [facility] Address [address] [place] [address] Phone [phone] Care Team Providers Care Senior Managing Director Name Role Phone Javy Moscoso DO Primary Care Provider + [phone] Encounter Details Date Type Department Care Team (Late st Contact Info) Description 02/17/2024 Telephone Hematology/Oncology [facility] [address] [place] [address] Katt Mullen CRNP [address] [place] [address] Allergies Active Allergy Reactions Criticality Noted Date Comments Lisinopril Unknown Low 11/15/2022 Verapamil Medium 06/26/2020 Heart Block documented as of this encounter (statuses as of 02/17/2024) Medications Medication Sig Dispensed Refills Start Date [...] the morning. 100 Tablet 3 08/05/2023 Active [employer] [place] 2 w/Device Kit USE DIRECTED TO TEST [...] morning. 90 Capsule 2 10/04/2023 Active Pen [place] 31G X 5 MMIndications:Type 2 diabetes mellitus [...] every 10 days. E11.9 Active Dexcom G7 [place] Device Use as directed. Use as directed [...] hyperglycemia, with long-term current use of insulin ([facility]) USE DIRECTED UP TO FOUR TIMES DAILY FOR HOME GLUCOSE TESTING 400 Strip 3 12/22/2023 Active tiZANidine HCl 2 MG Oral Tablet (Zanaflex)Indication s:Spinal stenosis of lumbar region without neurogenic claudication Take 1 Tablet by mouth at bedtime as needed for Muscle spasms. 90 Tablet 1 01/02/2024 Active Vitamin D (Ergocalciferol) 1.25 MG (06330 UT) Oral Capsule (Drisdol)Indications :Vitamin D deficiency Take 1 Capsule by mouth Every Month. 6 Capsule 2024 07/11/2024 Active Insulin Glargine Solostar 100 UNIT/ML Subcutaneous Solution Pen-injector (Lantus SoloStar)Indications :Type 2 diabetes mellitus with hyperglycemia, with long-term current use of insulin ([facility]) Inject 40 Units under the skin at bedtime. 45 mL 3 01/17/2024 Active Hospital, Clinic, or Other Facility Administered Medication Ordered Dose Route Frequency Start Date End Date Status Albuterol Sulfate (Proventil) (2.5 MG/3ML) 0.083% inhalation solution 2.5 mgIndications:ILD (interstitial lung disease) ([facility]),BEARDEN (dyspnea on exertion) 2.5 mg NEBULIZER Q4H PRN 12/12/2023 Act jose documented as of this encounter (statuses as of 02/17/2024) Active Problems Problem Noted Date Diagnosed Date [...] 12/07/2022 Bilateral impacted cerumen 10/22/2022 Atherosclerosis of [place] co ronary artery without angina pectoris 07/15/2022 [...] as of this encounter (statuses as of 02/17/2024) Resolved Problems Problem Noted Date Diagnosed Date [...] as of this encounter (statuses as of 02/17/2024) Immunizations Name Administration Dates Next Due COVID-19 mRNA, LNP-s, No Pre serve, 2-Dose Series ([employer]) 07/03/2021,12/27/2020,12/06/2020 COVID-19, MRNA-LNP, 23-24, P F, 30 MCG/0.3 mL, 12 YRS AND ABOVE, IM ([employer] Peg-Comirnaty) 06/16/2023 Pneumococcal Conjugate Vacci ne, 20-valent ([id number]) 12/07/2022 Pneumococcal Polysaccharide PPV23 (Pneumovax) 09/08/2020 Season [...] encounter Miscellaneous Notes * Telephone Encounter - Katt Mullen CRNP [...] AM EDT Laboratory Laboratory [facility], [address] [phone] [place], Lab [address] [place] [address] 03/07/2024 9:00 AM EDT Office Visit [facility] [address], [place] [address] [place] [address] Javy Moscoso DO [address] [place] [address] 03/08/2024 8:00 AM EDT Laboratory Laboratory Patient Service [place], [address] [phone] [place], Lab Lock [address] [place] [address] 03/15/2024 11:00 AM EDT Office Visit Hematology/Oncolog y [facility] [place] [address] [facility] [address] Katt Mullen CRNP 400 [facility] [place] [address] 04/27/2024 9:30 AM EDT Hospital Encounter ENDO [facility], Endoscopy Room [facility] [address] [place] [phone] Dominick Amador MD [address] [place] [address] 04/27/2024 9:30 AM EDT - 04/27/2024 10:15 AM EDT Surgery ENDO [facility], Endoscopy Room [facility] [address] [place] [phone] Dominick Amador MD [address] [place] [address] COLONOSCOPY FLEXIBLE PROXIMAL DIAGNOSTIC 07/24/2024 2:00 PM EST Office Visit Nephrology, [facility] [address] [place] [address] Augusto Lerner MD [address] [place] [address] 10/03/2024 11:00 AM EST Nurse Only Ancillary [address], [place] [address] [place] [address] [place], Nurse Annual Wellness Visit [address] [place] [address] 02/15/2025 10:00 AM EDT Office Visit [facility] [place] [address] [place] [phone] Debby Cornejo DO [address] [place] [address] Scheduled Procedures Name Priority Associated Diagnoses Date/Ti [...] Colorectal Cancer Screening 12/11/2023 GFR 03/08/2024 09/08/2023, 12/0 02/2023, 05/05/2023, Additional history exists O2 ASSESSMENT COMPLETED IN PAST YEAR FOR COPD 03/28/2024 03/28/2023 CKD PHOS USE SMARTSET 35063 05/05/2024 09/0 02/2023, 02/02/2023, 01/11/2022, Additional history exists HbA1c 06/15/2024 12/15/2023, 08/29, 08/04/2023, Additional history exists Diabetic Foot Exam 06/16/2024 06/16/2023, 06/16/2023 Diabetic Eye Exam 08/24/2024 08/24/2023, , 11/02/2022, Additional history exists Albumin/Creatinine Ratio 09/09/2024 09/09/2023, 11/0 11/2021 Depression Screening 12/21/2024 12/22/2023 CKD HGB USE SMARTSET 82317 02/15/202502/15, 02/16/2024, 09/08/2023, Additional history exists DTaP,Tdap,and Td Vaccines (2 - Td or Tdap) 03/17/2031 03/17/2021 AAA Screening Completed 06/20/2020, 01/28, 01/12/2019 Alpha-1 Antitrypsin Completed 03/15/2022 Pneumococcal Vaccine: 65+ Years Completed 12/07/2022, 09/08/2020 [...] Power of Attor kwabena? No Care Teams Senior Managing Director Relationship Specialty Start Date End Date Javy Moscoso DO [address] [place] [address] PCP - General Family Medicine 07/04/23 documented as of this encounter
--- OUTSIDE RECORDS SUMMARY | 2024-02-25 03:30 | External Medical Summary | Summary of Care ---
Author Name Unknown Organization [facility] Address [address] [facility] [place] [place] [address] Phone [phone] Care Team Providers Care Excellence Specialist Name Role Phone Javy Moscoso DO Primary Care Provider + [phone] Reason for Visit * Reason Onset Date Comments Medication Pre-auth 02/17/2024 Monoferric Encounter Details Date Type Department Care Team (Late st Contact Info) Description 02/17/2024 Telephone Hematology/Oncology [facility] [place] [address] [facility] [place] [place] [address] Katt Mullen CRNP [address] [place] [address] Medication Pre-auth (Monoferric) Allergies Active [...] the morning. 100 Tablet 3 08/05/2023 Active CiraNova 2 w/Device Kit USE DIRECTED TO TEST [...] morning. 90 Capsule 2 10/04/2023 Active Pen [place] 31G X 5 MMIndications:Type 2 diabetes mellitus [...] every 10 days. E11.9 Active Dexcom G7 Theology Professor Device Use as directed. Use as directed [...] hyperglycemia, with long-term current use of insulin ([facility]) USE DIRECTED UP TO FOUR TIMES DAILY FOR HOME GLUCOSE TESTING 400 Strip 3 12/22/2023 Active tiZANidine HCl 2 MG Oral Tablet (Zanaflex)Indication s:Spinal stenosis of lumbar region without neurogenic claudication Take 1 Tablet by mouth at bedtime as needed for Muscle spasms. 90 Tablet 1 01/02/2024 Active Vitamin D (Ergocalciferol) 1.25 MG (39011 UT) Oral Capsule (Drisdol)Indications :Vitamin D deficiency Take 1 Capsule by mouth Every Month. 6 Capsule 2024 07/11/2024 Active Insulin Glargine Solostar 100 UNIT/ML Subcutaneous Solution Pen-injector (Lantus SoloStar)Indications :Type 2 diabetes mellitus with hyperglycemia, with long-term current use of insulin ([facility]) Inject 40 Units under the skin at bedtime. 45 mL 3 01/17/2024 Active Hospital, Clinic, or Other Facility Administered Medication Ordered Dose Route Frequency Start Date End Date Status Albuterol Sulfate (Proventil) (2.5 MG/3ML) 0.083% inhalation solution 2.5 mgIndications:ILD (interstitial lung disease) ([facility]),BEARDEN (dyspnea on exertion) 2.5 mg [...] 12/07/2022 Bilateral impacted cerumen 10/22/2022 Atherosclerosis of [place] co ronary artery without angina pectoris 07/15/2022 [...] mRNA, LNP-s, No Pre serve, 2-Dose Series (FiftyFiver) 07/03/2021,12/27/2020,12/06/2020 COVID-19, MRNA-LNP, 23-24, P F, 30 MCG/0.3 mL, 12 YRS AND ABOVE, IM (PFIZER-Comirnaty) 06/16/2023 Pneumococcal Conjugate Vacci ne, 20-valent ([id number]) 12/07/2022 Pneumococcal Polysaccharide PPV23 (Pneumovax) 09/08/2020 Season [...] PRC review. * Telephone Encounter - Nhung Gutiérrze LPN - 02/20/2024 10:08 AM EDT Order received for Monoferric [place] plan built and routed to provider Patient aware Awaiting prior auth before scheduling patient. * Telephone Encounter - Nhung Gutiérrez LPN - 02/20/2024 9:56 AM EDT Called and spoke with patient and his Cnydi, informed them both of result message from Provider below. Cyndi verbalized understanding. She states the patient is agreeable to receiving the Monoferric. Provided her and patient medication teaching on Monoferric, they verbalized understanding, denying any questions. * Telephone Encounter - Katt Mullne CRNP - 02/17/2024 4:21 PM EDT Results [...] 8:00 AM EDT Laboratory Laboratory Patient Service [place], [place] [address] [place] [address] [address] [address] 03/07/2024 9:00 AM EDT Office Visit Family Practice [address], [place] [address] [place] [phone] Javy Moscoso DO [address] [place] [phone] 03/08/2024 8:00 AM EDT Laboratory Laboratory Patient Service [place], [place] [address] [facility] [place] [phone] [place], [place] [address] [place] [address] 03/15/2024 11:00 AM EDT Office Visit Hematology[facility]Oncolog [facility] [place] [address] [place] [phone] Katt Mullen, [place] [address] [place] [address] 04/27/2024 9:30 AM EDT Hospital Encounter ENDO [facility], Endoscopy Room [facility] [address] [place] [phone] Dominick Amador MD [address] [place] [address] 04/27/2024 9:30 AM EDT - 04/27/2024 10:15 AM EDT Surgery ENDO [facility], Endoscopy Room [facility] [address] [place] [phone] Dominick Amador MD [address] [place] [address] COLONOSCOPY FLEXIBLE PROXIMAL DIAGNOSTIC 07/24/2024 2:00 PM EST Office Visit Nephrology, [facility] [address] [place] [address] Augusto Lerner MD [address] [place] [address] 10/03/2024 11:00 AM EST Nurse Only Ancillary [address], [place] [address] [place] [address] [place], Nurse Annual Wellness Visit [address] [place] [phone] 02/15/2025 10:00 AM EDT Office Visit Sleep Disorders Ctr [facility] [place] [address] [place] [phone] Debby Cornejo, DO [address] [place] [address] Scheduled Procedures Name Priority Associated Diagnoses Date/Ti [...] history exists Fecal Occult Blood Test 11/18/2023 11/18/19, 11/17/2022, 03/16/2022, Additional history exists Colonoscopy 12/11/2023 12/10/2022, 11/27, 12/15/2020, Additional history exists Colorectal Cancer Screening 12/11/2023 GFR 03/08/2024 09/08/2023, 02/2023, 05/05/2023, Additional history exists O2 ASSESSMENT COMPLETED IN PAST YEAR FOR COPD 03/28/2024 03/28/2023 CKD PHOS USE SMARTSET 31481 05/05/202402/2023, 02/02/2023, 01/11/2022, Additional history exists HbA1c 06/15/2024 12/15/2023, 08/29, 08/04/2023, Additional history exists Diabetic Foot Exam 06/16/2024 06/16/2023, 06/16/2023 Diabetic Eye Exam 08/24/2024 08/24/2023, , 11/02/2022, Additional history exists Albumin/Creatinine Ratio 09/09/2024 09/09/2023, 110 11/2021 Depression Screening 12/21/2024 12/22/2023 CKD HGB USE SMARTSET 51786 02/15/202502/15, 02/16/2024, 09/08/2023, Additional history exists DTaP,Tdap,and [...] Power of Attor kwabena? No Care Teams Excellence Specialist Relationship Specialty Start Date End Date Javy Moscoso DO [address] [place] [address] PCP - General Family Medicine 07/04/23 documented as of this encounter
--- OUTSIDE RECORDS SUMMARY | 2024-02-25 03:31 | External Medical Summary | Summary of Care ---
Author Name Unknown Organization [facility] Address [address] [facility] [address] Phone [phone] Care Team Providers Care Certified Pesticide Applicator Name Role Phone Javy Moscoso DO Primary Care Provider [phone] Reason for Visit * Reason Comments Dosage Adjustment In Person (Anticoag Cl inic) Diabetes Follow-Up Encounter Details Date Type Department Care Team (Late st Contact Info) Description 01/17/2024 9:00 AM EDT Office Visit Family Practice [address], [place] [address] [place] [address] [place], Pharmacist [address] [place] [address] Type 2 diabetes mellitus with hyperglycemia, with long-term current use of insulin (HCC)* Allergies Active Allergy Reactions Criticality Noted Date Comments Lisinopril Unknown Low 11/15/2022 Verapamil Medium 06/26/2020 Heart Block documented as of this encounter (statuses as of 01/17/2024) Medications Medication Sig Dispensed Refills Start Date [...] MOUTH EVERY MORNING 90 Tablet 3 06/11/2023 4 Active Empagliflozin 25 MG Oral Tablet (Jardiance)Indicati ons:Type 2 diabetes mellitus with hyperglycemia, without long-term current use of insulin (HCC),Type 2 diabetes mellitus with stage 3b chronic kidney disease, without long-term current use of insulin (HCC) Take 1 Tablet by mouth in the morning. 100 Tablet 3 08/05/2023 Active Virtual Web Ultra 2 w/Device Kit USE DIRECTED TO [...] morning. 90 Capsule 2 10/04/2023 Active Pen Lamar 31G X 5 MMIndications:Type 2 diabetes mellitus with hyperglycemia, with long-term current use of insulin (HCC) Use as directed. Use as directed with glargine insulin once daily 100 Each 3 10/06/2023 Active Torsemide 20 MG Oral Tablet (Demadex)Indication s:HTN, goal below 140/90 TAKE ONE TABLET BY MOUTH EVERY MORNING 90 Tablet 3 11/02/2023 5 Active Triamcinolone Acetonide 0.5 % External Cream (Aristocort) APPLY TO RASH ON ANKLE DAILY. 09/22/2023 Active Vitamin B-12 2500 MCG Sublingual Tablet Sublingual Place 1 Tablet under the tongue in the morning. Active Dexcom G7 Sensor Use as directed. Use as directed to monitor blood sugars daily. Replace sensor every 10 days. E11.9 Active Dexcom G7 English Tutor Device Use as directed. Use as directed to monitor blood sugars daily Active Fluticasone Propionate 50 MCG/ACT Nasal Suspension (Flonase)Indication s:Chronic maxillary sinusitis Administer 2 Sprays into each nostril in the morning. 18.2 g 3 12/06/2023 Active Pantoprazole Sodium 40 MG Oral Tablet Delayed Release (Protonix)Indicatio ns:Gastroesophageal reflux disease without esophagitis TAKE ONE TABLET BY MOUTH EVERY MORNING 90 Tablet 3 12/14/2023 5 Active OneTouch Ultra In Vitro Strip (Glucose [...] 01/02/2024 Active Vitamin D (Ergocalciferol) 1.25 MG (80612 UT) Oral Capsule (Drisdol)Indication s:Vitamin D deficiency Take 1 Capsule by mouth Every Month. 6 Capsule 2024 4 Active Insulin Glargine Solostar 100 UNIT/ML Subcutaneous Solution Pen-injector (Lantus SoloStar)Indication s:Type 2 diabetes mellitus with hyperglycemia, with long-term current use of insulin (HCC) Inject 40 Units under the skin at bedtime. 45 mL 3 01/17/2024 Active Insulin Glargine Solostar 100 UNIT/ML Subcutaneous Solution Pen-injector (Lantus SoloStar)Indication s:Type 2 diabetes mellitus with hyperglycemia, with long-term current use of insulin ([facility]) Inject 30 Units under the skin at bedtime. 15 mL 3 12/22/2023 4 Discontinue d(Refill) Hospital, Clinic, or Other Facility Administered Medication Ordered Dose Route Frequency Start Date End Date Status Albuterol Sulfate (Proventil) (2.5 MG/3ML) 0.083% inhalation solution 2.5 mgIndications:ILD (interstitial lung disease) (HCC),BEARDEN (dyspnea on exertion) 2.5 mg NEBULIZER Q4H PRN 12/12/2023 Act jose documented as of this encounter (statuses as of 01/17/2024) Active Problems Problem Noted Date Diagnosed Date [...] 12/07/2022 Bilateral impacted cerumen 10/22/2022 Atherosclerosis of [place] co ronary artery without angina pectoris 07/15/2022 [...] as of this encounter (statuses as of 01/17/2024) Resolved Problems Problem Noted Date Diagnosed Date [...] 07/10/2020 Overview: Per CKD protocol Symptomatic bradycardia 02/14/2019 06/2 10/2018 Hyperkalemia 02/14/2019 02/18/2019 ARNOLDO (acute kidney injury) 02/14/2019 Acute respiratory failure with hypercapnia 02/14/2019 02/18/2019 Respiratory acidosis 02/14/2019 019 Lactic acidosis 02/14/2019 02/18/2019 documented as of this encounter (statuses as of 01/17/2024) Immunizations Name Administration Dates Next Due COVID-19 mRNA, LNP-s, No Pre serve, 2-Dose Series (Pfizer) 07/03/2021,12/27/2020,12/06/2020 COVID-19, MRNA-LNP, 23-24, P F, 30 MCG/0.3 mL, 12 YRS AND ABOVE, IM (PFIZER-Comirnaty) 06/16/2023 Pneumococcal Conjugate Vacci ne, 20-valent ([id number]) 12/07/2022 Pneumococcal Polysaccharide PPV23 (Pneumovax) 09/08/2020 Season [...] money to get more. Never true 12/22/2023 Sex and Gender Information Value Date [...] No 02/15/2019 documented as of this encounter Progress Notes * Hans Kaba, [facility] - 01/17/2024 8:59 AM EDT Images from the original note were not included. Medication Therapy Disease Management [facility] - Diabetes Management Progress Note Walker Mancini, identified by name and date of , is a 74 year old male being seen for diabetes management/education. Patient presents for return diabetic visit. DIABETES: Current diabetic medications: Metformin 500 mg ER 1 tab daily (at bedtime) Jardiance 25 mg daily INCREASE Lantus 35 units at bedtime Medication Injection Site: Abdomen Lifestyle: Diet: unchanged Glucose Review/SMBG: Readings obtained from patient device Hypoglycemia: Does your blood sugar go below 70 mg/dL? No Hyperglycemia symptoms present: none Recent Labs Units 12/15/23 0750 09/08/23 1002 08/04/23 0752 HEMOGLOBIN A1C - [facility] % 8.3* 8.7* 9.2* Recent Labs Units 09/08/23 1002 08/04/23 0752 05/05/23 0750 ESTIMATED GLOMERULAR FILTRATION RATE - [facility] mL/min 45* 46* 47* CREATININE - [facility] mg/dL 1.6* 1.6* 1.6* HYPERTENSION: Patient on ACEi/ARB: yes BP Readings from Last 3 Encounters: 12/12/23 124/62 12/06/23 132/58 12/01/23 132/70 Blood pressure at goal: yes HYPERLIPIDEMIA: Patient is taking moderate or high intensity statin: yes HEALTH MAINTENANCE REVIEW: Health Maintenance Due Topic Date Due COVID-19 Vaccine ( season) 2023 Colorectal Cancer Screening 12/11/2023 ASSESSMENT & PLAN: ICD-10-CM 1. Type 2 diabetes mellitus with hyperglycemia, with long-term current use of insulin (HCC) E11.65 Z79.4 BG Readings - Blood sugars uncontrolled. Improving but remain elevated. Using Dexcom and finger sticks as needed. No episodes of hypoglycemia Medications - Reviewed current regimen, patient is adherent to regimen. Reasonable to increase Lantus. Discussed addition of Novolog or Prandin for meal coverage, revisit at next appointment Diet, Exercise, Lifestyle - No significant lifestyle changes since last visit. Patient is agreeable to Dexcom G7 use. Patient aware to contact clinic if any hypoglycemia before next visit. MEDICATION CHANGES: yes, see below; preferred pharmacy: [facility] ([facility]) Diabetic Medications: Metformin 500 mg ER 1 tab daily (at bedtime) Jardiance 25 mg daily INCREASE Lantus 40 units at bedtime HEALTH MAINTENANCE INTERVENTIONS: Labs: Up to Date Immunizations: declines Foot Exam: Up to Date Eye Exam: Up to Date Annual Wellness Visit: Up to Date FOLLOW UP: Return to clinic in 7 weeks 03/07/2024 Hans Kaba RPh Clinical Pharmacist - [facility] Medication Therapy Management Clinic 01/17/2024, 8:59 AM documented in this encounter Plan of Treatment Upcoming Encounters Date Type Department Care Team (Latest Contact Info) Description 01/25/2024 7:30 AM EDT PulmDiagnostic Pulmonary Function Lab, [facility] [address] [place] [address] [place], [address] [address] [place] [address] 02/16/2024 10:00 AM EDT Office Visit Sleep Disorders Ctr [facility] [address] [place] [phone] Debby Cornejo DO [address] [place] [address] 03/02/2024 8:00 AM EDT Laboratory Laboratory Patient Service [place], [place] [address] [place] [phone] [facility], Lab [address] [place] [address] 03/07/2024 9:00 AM EDT Office Visit Family [address] [place] [phone] Javy Moscoso DO [address] [place] [phone] 03/08/2024 8:00 AM EDT Laboratory Laboratory Patient Service [place], [place] [address] [place] [phone] [place], Lab [address] [place] [address] 03/15/2024 11:00 AM EDT Office Visit Hematology/Oncolog y [facility] [address] [place] [phone] Katt Mullen CRNP [address] [place] [address] [place] [address] 04/27/2024 9:30 AM EDT Hospital Encounter ENDO [facility], Endoscopy Room [facility] [address] [place] [address] Dominick Amador MD [address] [place] [address] 04/27/2024 9:30 AM EDT - 04/27/2024 10:15 AM EDT Surgery ENDO [facility], Endoscopy Room [facility] [address] [place] [phone] Dominick Amador MD [address] [place] [address] COLONOSCOPY FLEXIBLE PROXIMAL DIAGNOSTIC 07/24/2024 2:00 PM EST [facility] [address] [facility] [address] [place] [address] Augusto Lerner MD [address] [place] [address] 10/03/2024 11:00 AM EST Nurse Only Ancillary [address], [place] [address] [place] [address] [place], Nurse Annual Wellness Visit [address] [place] [address] Scheduled Procedures Name Priority Associated Diagnoses Date/Ti [...] COPD 03/28/2024 03/28/2023 CKD PHOS USE SMARTSET 96120 05/05/2024 09/0 02/2023, 02/02/2023, 01/11/2022, Additional history exists HbA1c 06/15/2024 12/15/2023, 08/29, 08/04/2023, Additional history exists Diabetic Foot Exam 06/16/2024 06/16/2023, 06/16/2023 Diabetic Eye Exam 08/24/2024 08/24/2023, , 11/02/2022, Additional history exists CKD HGB USE SMARTSET 71790 09/08/202409/08, 09/08/2023, 08/04/2023, Additional history exists Albumin/Creatinine Ratio 09/09/2024 09/09/2023, 11/0 11/2021 Depression Screening 12/21/2024 12/22/2023 DTaP,Tdap,and Td Vaccines (2 - Td or [...] as of this encounter Visit Diagnoses Diagnosis Type 2 diabetes mellitus with hyperglycemia, with long-term current use of insulin (HCC)- Primary Iron deficiency anemia Iron deficiency anemia, unspecified [...] Power of Attor kwabena? No Care Teams Certified Pesticide Applicator Relationship Specialty Start Date End Date Javy Moscoso DO [address] [place] [address] PCP - General Family Medicine 07/04/23 documented as of this encounter
--- OUTSIDE RECORDS SUMMARY | 2024-02-25 03:31 | External Medical Summary | Summary of Care ---
Author Name Unknown Organization [facility] Address [address] [place] [address] Phone [phone] Care Team Providers Care Wedding Planning Internship Name Role Phone Javy Moscoso DO Primary Care Provider [phone] Encounter Details Date Type Department Care Team (Late st Contact Info) Description 01/25/2024 Result Scan Unspecified Department Iván Nielsen MD [address] [place] [address] <No scans attached> Allergies Active Allergy Reactions Criticality Noted Date Comments Lisinopril Unknown Low 11/15/2022 Verapamil Medium 06/26/2020 Heart Block documented as of this encounter (statuses as of 01/27/2024) Medications Medication Sig Dispensed Refills Start Date [...] the morning. 100 Tablet 3 08/05/2023 Active [employer] Ultra 2 w/Device Kit USE DIRECTED TO [...] morning. 90 Capsule 2 10/04/2023 Active Pen Red [place] 31G X 5 MMIndications:Type 2 diabetes mellitus [...] under the tongue in the morning. Active Razzcom G7 Sensor Use as directed. Use as directed to monitor blood sugars daily. Replace sensor every 10 days. E11.9 Active Dexcom G7 Tile Burner Device Use as directed. Use as directed [...] hyperglycemia, with long-term current use of insulin ([facility]) USE DIRECTED UP TO FOUR TIMES DAILY FOR HOME GLUCOSE TESTING 400 Strip 3 12/22/2023 Active tiZANidine HCl 2 MG Oral Tablet (Zanaflex)Indication s:Spinal stenosis of lumbar region without neurogenic claudication Take 1 Tablet by mouth at bedtime as needed for Muscle spasms. 90 Tablet 1 01/02/2024 Active Vitamin D (Ergocalciferol) 1.25 MG (92906 UT) Oral Capsule (Drisdol)Indications :Vitamin D deficiency Take 1 Capsule by mouth Every Month. 6 Capsule 2024 07/11/2024 Active Insulin Glargine Solostar 100 UNIT/ML Subcutaneous Solution Pen-injector (Lantus SoloStar)Indications :Type 2 diabetes mellitus with hyperglycemia, with long-term current use of insulin ([facility]) Inject 40 Units under the skin at bedtime. 45 mL 3 01/17/2024 Active Hospital, Clinic, or Other Facility Administered Medication Ordered Dose Route Frequency Start Date End Date Status Albuterol Sulfate (Proventil) (2.5 MG/3ML) 0.083% inhalation solution 2.5 mgIndications:ILD (interstitial lung disease) ([facility]),BEARDEN (dyspnea on exertion) 2.5 mg NEBULIZER Q4H PRN 12/12/2023 Act jose documented as of this encounter (statuses as of 01/27/2024) Active Problems Problem Noted Date Diagnosed Date [...] 12/07/2022 Bilateral impacted cerumen 10/22/2022 Atherosclerosis of [place] co ronary artery without angina pectoris 07/15/2022 [...] as of this encounter (statuses as of 01/27/2024) Resolved Problems Problem Noted Date Diagnosed Date [...] as of this encounter (statuses as of 01/27/2024) Immunizations Name Administration Dates Next Due COVID-19 mRNA, LNP-s, No Pre serve, 2-Dose Series ([facility]) 07/03/2021,12/27/2020,12/06/2020 COVID-19, MRNA-LNP, 23-24, P F, 30 MCG/0.3 mL, 12 YRS AND ABOVE, IM [facility] 06/16/2023 Pneumococcal Conjugate Vacci ne, 20-valent ([email or web address]) 12/07/2022 Pneumococcal Polysaccharide PPV23 (Pneumovax) 09/08/2020 Season [...] Department Care Team (Latest Contact Info) Description 02/16/2024 10:00 AM EDT Office Visit Sleep Disorders Ctr [facility] [place] [address] [place] [phone] Debby Cornejo DO [address] [place] [address] 03/02/2024 8:00 AM EDT Laboratory Laboratory Patient Service Center, [address] [phone] [facility] [address] [address] 03/07/2024 9:00 AM EDT Office Visit Family Practice [facility], [place] [address] [place] [phone] Javy Moscoso DO [address] [place] [address] 03/08/2024 8:00 AM EDT Laboratory Laboratory Patient Service [place], [place] [address] [place] [phone] [place], [place] [address] [place] [address] 03/15/2024 11:00 AM EDT Office Visit Hematology/Oncolog y [place] [place] [address] [place] [phone] Katt Mullen CRNP [address] [place] [address] [place] [address] 04/27/2024 9:30 AM EDT Hospital Encounter ENDO [facility], Endoscopy Room [facility] [address] [place] [phone] Dominick Amador MD [address] [place] [address] 04/27/2024 9:30 AM EDT - 04/27/2024 10:15 AM EDT Surgery ENDO [facility], Endoscopy Room [facility] [address] [place] [phone] Dominick Amador MD [address] [place] [address] COLONOSCOPY FLEXIBLE PROXIMAL DIAGNOSTIC 07/24/2024 2:00 PM EST Office Visit Nephrology, [facility] [address] [facility] [address] [place] [address] Augusto Lerner MD [address] [place] [address] 10/03/2024 11:00 AM EST Nurse Only Ancillary [address], [place] [address] [place] [phone] [place], Nurse Annual Wellness Visit [address] [place] [phone] Scheduled Procedures Name Priority Associated Diagnoses Date/Ti [...] COPD 03/28/2024 03/28/2023 CKD PHOS USE SMARTSET 23886 05/05/2024 0902/2023, 02/02/2023, 01/11/2022, Additional history exists HbA1c 06/15/2024 12/15/2023, 08/29, 08/04/2023, Additional history exists Diabetic Foot Exam 06/16/2024 06/16/2023, 06/16/2023 Diabetic Eye Exam 08/24/2024 08/24/2023, , 11/02/2022, Additional history exists CKD HGB USE SMARTSET 09097 09/08/202409/08, 09/08/2023, 08/04/2023, Additional history exists Albumin/Creatinine Ratio 09/09/2024 09/09/2023, 11/2021 Depression Screening 12/21/2024 12/22/2023 DTaP,Tdap,and Td [...] Not on filedocumented as of this encounter Procedures Procedure Name Priority Date/Time Associated Diagnosis Comments PROCEDURE SCANNED RESULT 01/25/2024 documented in this encounter Results * PROCEDURE SCANNED RESULT (01/25/2024) 01/25/2024 Iván Nielsen MD SURGERY documented in this encounter Advance Directives * [...] Power of Attor kwabena? No Care Teams Wedding Planning Internship Relationship Specialty Start Date End Date Javy Moscoso DO [address] [place] [address] PCP - General Family Medicine 07/04/23 documented as of this encounter
--- OUTSIDE RECORDS SUMMARY | 2024-02-25 03:31 | External Medical Summary | Summary of Care ---
Author Name Unknown Organization [facility] Address [address] [facility] [address] Phone [phone] Care Team Providers Care Cable Inspector Name Role Phone Javy Moscoso DO Primary Care Provider + [phone] Reason for Visit * Reason Comments Pulmonary Function Test PFT with broncho dilator Oxygen Assessment 6 minute walk Encounter Details Date Type Department Care Team (Latest Contact Info) Description 01/25/2024 7:30 AM EDT PulmDiagnostic Pulmonary Function Lab, [facility] [address] [place] [address] [place], [address] [facility] [place] [address] ILD (interstitial lung disease) ([facility])*; BEARDEN (dyspnea on exertion) Allergies Active Allergy Reactions Criticality Noted Date Comments Lisinopril Unknown Low 11/15/2022 Verapamil Medium 06/26/2020 Heart Block documented as of this encounter (statuses as of 01/25/2024) Medications Medication Sig Dispensed Refills Start Date [...] the morning. 100 Tablet 3 08/05/2023 Active Big Think Ultra 2 w/Device Kit USE DIRECTED TO [...] morning. 90 Capsule 2 10/04/2023 Active Pen [place] 31G X 5 MMIndications:Type 2 diabetes mellitus [...] every 10 days. E11.9 Active Dexcom G7 Bonderizer Device Use as directed. Use as directed [...] 01/02/2024 Active Vitamin D (Ergocalciferol) 1.25 MG (71126 UT) Oral Capsule (Drisdol)Indications :Vitamin D deficiency [...] as of this encounter (statuses as of 01/25/2024) Active Problems Problem Noted Date Diagnosed Date [...] 12/07/2022 Bilateral impacted cerumen 10/22/2022 Atherosclerosis of [place] ronary artery without angina pectoris 07/15/2022 [...] as of this encounter (statuses as of 01/25/2024) Resolved Problems Problem Noted Date Diagnosed Date [...] as of this encounter (statuses as of 01/25/2024) Immunizations Name Administration Dates Next Due COVID-19 mRNA, LNP-s, No Pre serve, 2-Dose Series (Wowboard) 07/03/2021,12/27/2020,12/06/2020 COVID-19, MRNA-LNP, 23-24, P F, 30 MCG/0.3 mL, 12 YRS AND ABOVE, IM (PFIZER-Comirnaty) 06/16/2023 Pneumococcal Conjugate Vacci ne, 20-valent ([id number]) 12/07/2022 Pneumococcal Polysaccharide PPV23 (Pneumovax) 09/08/2020 Season [...] Smoke Exposure: Past Smokeless Tobacco: Current Chew Tobacco Cessation:Ready to Q uit: Not Asked; Counseling Given: Not Answered Comments:03/11/23 1 can per 1-2 days KHB Alcohol Use Standard Drinks/Week Comments [...] on file documented as of this encounter Last Filed Vital Signs Vital Sign Reading Time Taken Comments Blood Pressure 122/64 01/25/2024 7:41 AM EDT Pulse 60 01/25/2024 7:41 AM EDT Temperature - - Respiratory Rate 16 01/25/2024 7:41 AM EDT Oxygen Saturation 96% 01/25/2024 7:41 AM EDT Inhaled Oxygen Concentration - - Weight 105.3 kg (232 lb 2.3 oz) 01/25/2024 7:41 AM EDT Height 175.8 cm (5' 9.21") 01/25/2024 7:41 AM ED T Body Mass Index 34.07 01/25/2024 7:41 AM EDT documented in this encounter Functional Status Functional Status Response [...] No 02/15/2019 documented as of this encounter Nursing Notes * Reyes Dougherty, [employer] - 01/25/2024 7:53 AM EDT Walker Mancini was identified by name, Date of : (1950), and . Vitals were obtained for testing. Body mass index is 34.07 kg/m. Pt has a 1 ppd for 20 years smoking history and quit 29.4 years ago. 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 Pt wears CPAP@ HS. Spirometry, DLCO, RAW, and TGV performed. A slow volume nebulizer treatment of 0.5ml of albuterol in 3 ml of NSS was given. The proper method of use, as well as anticipated side effects, of this svn are discussed and demonstrated to the patient. Patient demonstrates adequate delivery. Administrations This Visit Albuterol Sulfate (Proventil) (2.5 MG/3ML) 0.083% inhalation solution 2.5 mg Admin Date 01/25/2024 Action Given Dose 2.5 mg Route Nebulizer Documented By Reyes Dougherty RRT 6 minute walk Exercise oximetry performed on room air x 6 minutes. Pt ambulated 1140 feet/ 347 meters. No rest periods were required. Lowest SPO2 on room air was 92%. documented in this encounter Plan of Treatment Upcoming Encounters Date Type Department Care Team (Latest Contact Info) Description 02/16/2024 10:00 AM EDT Office Visit [facility] Ctr [facility] [place] [address] [facility] [place] [phone] Debby Cornejo DO [address] [facility] [place] [address] 03/02/2024 8:00 AM EDT Laboratory [facility], [place] [address] [place] [phone] [place], Lab [address] [place] [address] 03/07/2024 9:00 AM EDT Office Visit Family Practice [address] [facility], [place] [address] [place] [address] Javy Moscoso DO [address] [place] [address] 03/08/2024 8:00 AM EDT Laboratory Laboratory Patient Service [place], [place] [address] [place] [phone] [place], Lab Lock [address] [place] [address] [place] [address] 03/15/2024 11:00 AM EDT Office Visit Hematology/Oncolog y [facility] [place] [address] [place] [address] Katt Mullen CRNP [address] [place] [address] 04/27/2024 9:30 AM EDT Hospital Encounter ENDO [facility], Endoscopy Room [facility] [address] [place] [phone] Dominick Amador MD [address] [place] [address] 04/27/2024 9:30 AM EDT - 04/27/2024 10:15 AM EDT Surgery ENDO [facility], Endoscopy Room [facility] [address] [place] [phone] Dominick Amador MD [address] [place] [address] COLONOSCOPY FLEXIBLE PROXIMAL DIAGNOSTIC 07/24/2024 2:00 PM EST Office Visit Nephrology, [facility] [address] [facility] [address] [place] [address] Augusto Lerner MD [address] [facility] [place] [address] 10/03/2024 11:00 AM EST Nurse Only Ancillary [address] [facility] [place] [address] [place] [address] [place], Nurse Annual Wellness Visit [address] [place] [address] Pending Results Name Type Priority Associated Diagnoses Date /Time SPIROMETRY B/A BRONCHODILATOR Procedures Routine ILD (interstitial lung disease) (HCC) BEARDEN (dyspnea on exertion) 01/25/2024 7:17 AM EDT LUNG VOLUMES (PLETHYSMOGRAPHY) Procedures Routine ILD (interstitial lung disease) (HCC) BEARDEN (dyspnea on exertion) 01/25/2024 7:17 AM EDT DIFFUSION CAPACITY (DLCO) Procedures Routine ILD (interstitial lung disease) (HCC) BEARDEN (dyspnea on exertion) 01/25/2024 7:17 AM EDT Scheduled Procedures Name Priority Associated Diagnoses [...] COPD 03/28/2024 03/28/2023 CKD PHOS USE SMARTSET 48606 05/05/2024 090 02/2023, 02/02/2023, 01/11/2022, Additional history exists HbA1c 06/15/2024 12/15/2023, 08/29, 08/04/2023, Additional history exists Diabetic Foot Exam 06/16/2024 06/16/2023, 06/16/2023 Diabetic Eye Exam 08/24/2024 08/24/2023, , 11/02/2022, Additional history exists CKD HGB USE SMARTSET 01493 09/08/202409/08, 09/08/2023, 08/04/2023, Additional history exists Albumin/Creatinine Ratio 09/09/2024 09/09/2023, 110 11/2021 Depression Screening 12/21/2024 12/22/2023 DTaP,Tdap,and Td [...] Procedure Name Priority Date/Time Associated Diagnosis Comments DIFFUSION CAPACITY (DLCO) Routine 2023 7:17 AM EDT ILD (interstitial lung disease) (HCC) BEARDEN (dyspnea on exertion) LUNG VOLUMES (PLETHYSMOGRAPHY) Routine 01/25/2024 7:17 AM EDT ILD (interstitial lung disease) (HCC) BEARDEN (dyspnea on exertion) SPIROMETRY B/A BRONCHODILATOR Routine 01/25/2024 7:17 AM EDT ILD (interstitial lung disease) (HCC) BEARDEN (dyspnea on exertion) documented in this encounter Visit Diagnoses Diagnosis ILD (interstitial lung disease) (HCC)- Primary Postinflammatory pulmonary fibrosis [place] (dyspnea on exertion) Other dyspnea and respiratory abnormality Iron deficiency anemia Iron deficiency anemia, unspecified AVM (arteriovenous malformation) Congenital anomaly of the peripheral vascular system, unspecified site History of colonic polyps Personal history of colonic polyps documented in this encounter Administered Medications Active Administered Medications - up to 3 most recent administrations Medication Order MAR Action Action Date Dose Rate Site Albuterol Sulfate (Proventil) (2.5 MG/3ML) 0.083% inhalation solution 2.5 mg 2.5 mg, Nebulizer, Q4H PRN Other, for PFT, Starting on Tue12/12/23 at 0918, Until Discontinued Given 01/25/2024 7:15 AM EDT 2.5 mg documented in this encounter Advance Directives * [...] Power of Attor kwabena? No Care Teams Cable Inspector Relationship Specialty Start Date End Date Javy Moscoso DO [address] [place] [phone] PCP - General Family Medicine 07/04/23 documented as of this encounter
--- OUTSIDE RECORDS SUMMARY | 2024-02-25 03:31 | External Medical Summary ---
Author Name Unknown Address Unknown Organization K0G[facility] [address] [place] [address] Laboratory Report Ordering Provider Test Date Status MONTSE MEJIA 02/16/2024 10:34:34 Final Observation Date Value Abnormality Reference (Units ) Status WBC, Total 02/16/2024 10:34:34 6.17 4.00-10.8 0 (K/uL) Final RBC 02/16/2024 10:34:34 3.09 4.50-5.25 (M/uL) Final Hemoglobin 02/16/2024 10:34:34 8.2 Below low normal 14 .0-16.8 (g/dL) Final HCT 02/16/2024 10:34:34 27.6 Below low normal 40. 0-48.4 (%) Final MCV 02/16/2024 10:34:34 89.3 82.0-99.5 (fL) Final MCH 02/16/2024 10:34:34 26.5 27.0-34.0 (pg) Final MCHC 02/16/2024 10:34:34 29.7 32.0-36.0 (g/dL) Final RDW 02/16/2024 10:34:34 14.3 11.5-15.5 (%) Final Platelets 02/16/2024 10:34:34 181 140-400 (K /uL) Final MPV 02/16/2024 10:34:34 12.6 6.6-11.1 ( fL) Final Performing Location [facility] [address] - [address] [place] [address]
--- OUTSIDE RECORDS SUMMARY | 2024-02-25 03:31 | External Medical Summary | Summary of Care ---
Author Name Unknown Organization [facility] Address [address] [place] [address] Phone [phone] Care Team Providers Care Reconstructive Surgeon Name Role Phone Javy Moscoso DO Primary Care Provider + [phone] Reason for Visit * Reason Comments Outpatient Testing Encounter Details Date Type Department Care Team (Late st Contact Info) Description 02/16/2024 9:10 AM EDT Laboratory Laboratory, [facility] 132 [place] [phone] [facility] [address] [place] [address] Iron deficiency anemia due to chronic blood loss; [employer] Other*[id number] Allergies Active Allergy Reactions Criticality Noted Date Comments Lisinopril Unknown Low 11/15/2022 Verapamil Medium 06/26/2020 Heart Block documented as of this encounter (statuses as of 02/16/2024) Medications Medication Sig Dispensed Refills Start Date [...] the morning. 100 Tablet 3 08/05/2023 Active Clear[employer] Solutions Ultra 2 w/Device Kit USE DIRECTED TO [...] morning. 90 Capsule 2 10/04/2023 Active Pen [place] 31G X 5 MMIndications:Type 2 diabetes mellitus [...] every 10 days. E11.9 Active Dexcom G7 Wash Operator Device Use as directed. Use as [...] use of insulin ([facility]) USE DIRECTED UP TO FOUR TIMES DAILY FOR HOME GLUCOSE TESTING 400 Strip 3 12/22/2023 Active tiZANidine HCl 2 MG Oral Tablet (Zanaflex)Indication s:Spinal stenosis of lumbar region without neurogenic claudication Take 1 Tablet by mouth at bedtime as needed for Muscle spasms. 90 Tablet 1 01/02/2024 Active Vitamin D (Ergocalciferol) 1.25 MG (68650 UT) Oral Capsule (Drisdol)Indications :Vitamin D deficiency [...] inhalation solution 2.5 mgIndications:ILD (interstitial lung disease) ([facility]),BEARDEN (dyspnea on exertion) 2.5 mg NEBULIZER Q4H PRN 12/12/2023 Act jose documented as of this encounter (statuses as of 02/16/2024) Active Problems Problem Noted Date Diagnosed Date [...] 12/07/2022 Bilateral impacted cerumen 10/22/2022 Atherosclerosis of [place] co ronary artery without angina pectoris 07/15/2022 [...] as of this encounter (statuses as of 02/16/2024) Resolved Problems Problem Noted Date Diagnosed Date [...] as of this encounter (statuses as of 02/16/2024) Immunizations Name Administration Dates Next Due COVID-19 mRNA, LNP-s, No Pre serve, 2-Dose Series ([employer]) 07/03/2021,12/27/2020,12/06/2020 COVID-19, MRNA-LNP, 23-24, P F, 30 MCG/0.3 mL, 12 YRS AND ABOVE, IM (PFIZER-Comirnaty) 06/16/2023 Pneumococcal Conjugate Vacci ne, 20-valent ([id number]) 12/07/2022 Pneumococcal Polysaccharide PPV23 (Pneumovax) 09/08/2020 Season [...] AM EDT Laboratory [facility], [address] [phone] [place], Lab [place] [address] [place] [address] 03/07/2024 9:00 AM EDT Office Visit [facility] [address], [place] [address] [place] [address] Javy Moscoso DO [address] [place] [address] 03/08/2024 8:00 AM EDT Laboratory Laboratory Patient Service [place], [address] [phone] [place], Lab Lock [address] [place] [address] 03/15/2024 11:00 AM EDT Office Visit Hematology/Oncolog y [facility] [place] [address] [place] [address] Katt Mullen CRNP [address] [facility] [place] [address] 04/27/2024 9:30 AM EDT Hospital Encounter ENDO [facility], Endoscopy Room [facility] [address] [place] [phone] Dominick Amador MD [address] [place] [address] 04/27/2024 9:30 AM EDT - 04/27/2024 10:15 AM EDT Surgery ENDO [facility], Endoscopy Room [facility] [address] [place] [phone] Dominick Amador MD [address] [place] [address] COLONOSCOPY FLEXIBLE PROXIMAL DIAGNOSTIC 07/24/2024 2:00 PM EST Office Visit Nephrology, [facility] [address] [place] [address] Augusto Lerner MD [address] [place] [address] 10/03/2024 11:00 AM EST Nurse Only Ancillary [address] [place] [address] [place] [address] [place], Nurse Annual Wellness Visit [address] [place] [phone] 02/15/2025 10:00 AM EDT Office Visit [facility] Ctr [facility] [place] [address] [place] [phone] Debby Cornejo DO [address] [place] [address] Pending Results Name Type Priority Associated Diagnoses Date /Time CBC WITH WBC DIFFERENTIAL Lab STAT Iron deficiency anemia due to chronic blood loss 02/16/2024 10:34 AM EDT IRON SCREEN, INCLUDING TIBC Lab STAT Iron deficiency anemia due to chronic blood loss 02/16/2024 10:34 AM EDT FERRITIN Lab STAT Iron deficiency anemia due to chronic blood loss 02/16/2024 10:34 AM EDT MYCODE SUBSEQUENT ADULT Lab Routine [employer] Other*[id number] 02/16/2024 10:34 AM EDT CBC Lab STAT Iron deficiency anemia due to chronic blood loss 02/16/2024 10:34 AM EDT DIFFERENTIAL, AUTOMATED Lab STAT Iron deficiency anemia due to chronic blood loss 02/16/2024 10:34 AM EDT MYCODE SST1 Lab Routine [employer] Other*[id number] 02/16/2024 10:34 AM EDT MYCODE SST2 Lab Routine [employer] Other*[id number] 02/16/2024 10:34 AM EDT Scheduled Procedures Name Priority Associated [...] COPD 03/28/2024 03/28/2023 CKD PHOS USE SMARTSET 52938 05/05/202402/2023, 02/02/2023, 01/11/2022, Additional history exists HbA1c 06/15/2024 12/15/2023, 08/29, 08/04/2023, Additional history exists Diabetic Foot Exam 06/16/2024 06/16/2023, 06/16/2023 Diabetic Eye Exam 08/24/2024 08/24/2023, , 11/02/2022, Additional history exists CKD HGB USE SMARTSET 79849 09/08/202409/08, 09/08/2023, 08/04/2023, Additional history exists Albumin/Creatinine Ratio 09/09/2024 09/09/2023, 1111/2021 Depression Screening 12/21/2024 12/22/2023 DTaP,Tdap,and Td Vaccines [...] deficiency anemia secondary to blood loss (chronic) [employer] Other*[id number] Iron deficiency anemia Iron deficiency anemia, unspecified [...] Power of Attor kwabena? No Care Teams Reconstructive Surgeon Relationship Specialty Start Date End Date Javy Moscoso DO [address] [place] [phone] PCP - General Family Medicine 07/04/23 documented as of this encounter
--- OUTSIDE RECORDS SUMMARY | 2024-02-25 03:31 | External Medical Summary ---
Author Name Unknown Address Unknown Organization K01:LABORATORY [facility] - [address] [facility] [address] Laboratory Report Ordering Provider Test Date Status MEGAN BRICENO 02/16/2024 10:34:34 Final Observation Date Value Abnormality Reference (Units ) Status MYCODE SPECIMEN-SST 02/16/2024 10:34:34 Freezing of extracted DNA, whole blood and/or serum. Final Performing Location LABORATORY [facility] - [address] [facility] [address]
--- OUTSIDE RECORDS SUMMARY | 2024-02-25 03:31 | External Medical Summary | Summary of Care ---
Author Name Unknown Organization [facility] Address [address] [place] [address] Phone [phone] Care Team Providers Care Senior Compensation Analyst Name Role Phone Javy Moscoso DO Primary Care Provider + [phone] Reason for Visit * Reason Comments Follow Up Encounter Details Date Type Department Care Team (Late st Contact Info) Description 02/16/2024 10:00 AM EDT Office Visit Sleep Disorders Ctr [facility] [address] [place] [phone] Debby Cornejo DO [address] [place] [address] Obstructive sleep apnea* Allergies Active Allergy Reactions Criticality Noted Date [...] the morning. 100 Tablet 3 08/05/2023 Active [employer] 2 w/Device Kit USE DIRECTED TO TEST [...] morning. 90 Capsule 2 10/04/2023 Active Pen Vin[place]ont 31G X 5 MMIndications:Type 2 diabetes mellitus [...] 10 days. E11.9 Active Dexcom G7 Marketing Recruiter Device Use as directed. Use as directed [...] with long-term current use of insulin ([facility]) USE DIRECTED UP TO FOUR TIMES DAILY FOR HOME GLUCOSE TESTING 400 Strip 3 12/22/2023 Active tiZANidine HCl 2 MG Oral Tablet (Zanaflex)Indication s:Spinal stenosis of lumbar region without neurogenic claudication Take 1 Tablet by mouth at bedtime as needed for Muscle spasms. 90 Tablet 1 01/02/2024 Active Vitamin D (Ergocalciferol) 1.25 MG (60700 UT) Oral Capsule (Drisdol)Indications :Vitamin D deficiency Take 1 Capsule by mouth Every Month. 6 Capsule 2024 07/11/2024 Active Insulin Glargine Solostar 100 UNIT/ML Subcutaneous Solution Pen-injector (Lantus SoloStar)Indications :Type 2 diabetes mellitus with hyperglycemia, with long-term current use of insulin ([facility]) Inject 40 Units under the skin at bedtime. 45 mL 3 01/17/2024 Active Hospital, Clinic, or Other Facility Administered Medication Ordered Dose Route Frequency Start Date End Date Status Albuterol Sulfate (Proventil) (2.5 MG/3ML) 0.083% inhalation solution 2.5 mgIndications:ILD (interstitial lung disease) ([facility]),BEARDEN (dyspnea on exertion) 2.5 mg [...] 12/07/2022 Bilateral impacted cerumen 10/22/2022 Atherosclerosis of [place] ind[place] tribe co ronary artery without angina pectoris 07/15/2022 [...] mRNA, LNP-s, No Pre serve, 2-Dose Series (appening) 07/03/2021,12/27/2020,12/06/2020 COVID-19, MRNA-LNP, 23-24, P F, 30 MCG/0.3 mL, 12 YRS AND ABOVE, IM (PFIZER-Comirnaty) 06/16/2023 Pneumococcal Conjugate Vacci ne, 20-valent ([id number]) 12/07/2022 Pneumococcal Polysaccharide PPV23 (Pneumovax) 09/08/2020 Season Influenza, Quad, PF, Adjuvanted, 65+ Yrs, IM (FLUAD) 06/03/2020 Seasonal Influenza Virus Vac cine, Unspecified Formulation 05/22/2019 Seasonal Influenza, Quadriva lent Hd (Fluzone Hd) 06/16/2023,05/06/2022,06/13/2021 TDAP (age 10 and older)(Boostrix) 03/17/2021 Zoster Vaccine Recombinant (Shingrix) 11/17/2021 documented as of this encounter Social History Tobacco Use Types Packs/Day Years Used Date Smoking Tobacco: Former Cigarettes 09 17 1 [id number] Passive Smoke Exposure: Past Smokeless Tobacco: [...] Sign Reading Time Taken Comments Blood Pressure 106/62 02/16/2024 9:54 AM EDT Pulse 72 02/16/2024 9:54 AM EDT Temperature 35.6 C (96.1 F) 02/16/2024 9:54 AM ED T Respiratory Rate 20 02/16/2024 9:54 AM EDT Oxygen Saturation 94% 02/16/2024 9:54 AM EDT ra, rest Inhaled Oxygen Concentration - - Weight 105.1 kg (231 lb 12.8 oz) 02/16/2024 9:54 AM EDT Height 177.8 cm (5' 10") 02/16/2024 9:54 AM EDT Body Mass Index 33.26 02/16/2024 9:54 AM EDT documented in this encounter Functional [...] as of this encounter Progress Notes * Debby Cornejo, DO - 02/16/2024 10:05 AM EDT Sleep Medicine Follow-Up HISTORY: Walker Mancini is a 74 year old male for follow up of severe GUS and RLS. Split-night PSG 11/13/2015: AHI 43.9. Initially seen by me 06/04/2021 with GUS on CPAP, chronic insomnia. He was using CPAP 9 cmH2O, with improvement in fatigue. Taking alprazolam 0.5 mg nightly for insomnia. He endorsed RLS sxs and EDS ([place] 17, FOSQ 29). Taking gabapentin 100/300/300 mg, not sure if helping RLS. Hx HTN, T2DM, COPD,GERD, symptomatic bradycardia. Ferritin 101 on 06/04/21. Increased evening gabapentin dose (100/300/600 mg). 07/28/21: RLS improved with increased evening dose of gabapentin. Persistent daytime sleepiness & fatigue, napping most days. [place] 13. Residual AHI 3.5 on CPAP 9 cwp with excellent adherence. Reduced Xanax dose from 0.5 mg nightly to 0.325 mg nightly (okay to try half of a 0.5 mg tablet, or 0.25 mg, if tolerated). 08/27/21: doing well with increased afternoon and evening doses of gabapentin (taking gabapentin 100/600/600 mg). RLS rating scale 13. He was sleeping well. Had been reducing Xanax, at 0.25 mg nightly. Persistent daytime sleepiness ([place] 18). 10/27/21: RLS did not seem to be interrupting sleep (high RLS rating scale, attributed to pain from neuropathy). Almost done with taper off of Xanax. [place] 18. Residual AHI 5.2 on CPAP 9 cwp. Adjusted CPAP to 10 cwp. Continued gabapentin 100/600/600 mg. 04/29/22: RLS sxs more bothersome, keeping hiim from sleep, getting about 2 hours of sleep per night.Noted to have anemia/iron deficiency, taking iron TID, with plan for small bowel endoscopy. Worsening EDS since not sleeping well; [place] 18. DME change requested. Suspected blood loss/iron deficiency to be the main trigger for worsened RLS & insomnia. 10/28/22: RLS still very bothersome. Had stopped iron supplement following endoscopy. [place] 16, RLSrating scale 21. Repeated iron screen with ferritin showing persistent iron deficiency. Ferritin 8. Restarted iron supplement. He was also referred back to GI. 02/14/23: he had been admitted with symptomatic anemia (required transfusion), started octreotide, and had iron infusions in the interim. RLS improved. Continued gabapentin 100/600/600 mg and CPAP 10 cwp. [place] 7, RLS rating scale 19. Using CPAP 10 cmH2O. Sleeping pretty well, but waking up tired. Pretty tired throughout the day. He is starting to feel anemic again, lacking "oomph" / [id number] for a couple weeks. Subjective PAP adherence: excellent Sleep refreshing on PAP: more tired in the past couple weeks (wonders if he is anemic again) Snoring on PAP: no Daytime sleepiness: sometimes Drowsy driving: none Mask leak: no Dry nose or dry mouth: no Aerophagia: no RLS symptoms: not too bad lately, though he notices them a little more in the past couple weeks. Continues on gabapentin 100 mg / 600 mg / 600 mg dosing, with benefit, without noted SE. Morning headaches: no Recent weight change: + weight loss [place] Sleepiness Scale: 10 RLS rating scale: 23 Travel Screening Question 02/16/2024 9:38 AM EDT - Filed by Patient Do you have any of the following new or worsening symptoms? None of these Have you recently been in contact with someone who was sick? No / Unsure [place] Sleepiness Scale Question 02/16/2024 9:56 AM EDT - Filed by Pavithra Ann LPN What is the chance you will doze off in the following situation? Sitting and reading Moderate chance of dozing Watching TV High chance of dozing Sitting inactive in a public place, such as a theater or meeting No chance of dozing As a passenger in a car for an hour without a break No chance of dozing Lying down to rest in the afternoon when circumstances permit Moderate chance of dozing When sitting and talking to someone No chance of dozing When sitting quietly after lunch without alcohol High chance of dozing In a car, while stopped for a few minutes in traffic No chance of dozing Score (range: 0 - 24) 10 Restless Leg Syndrome Rating Scale Question 02/16/2024 9:58 AM EDT - Filed by Pavithra Ann LPN Please complete the following questions. In the past week... Overall, how would you rate the RLS discomfort in your legs or arms? Mild Overall, how would you rate the need to move around because of your RLS symptoms? Moderate How severe was your sleep disturbance due to your RLS symptoms? Moderate How severe was your tiredness or sleepiness during the day due to your RLS symptoms? Severe How severe was your RLS as a whole? Moderate Overall, how severe was the impact of your RLS symptoms on your ability to carry out your daily affairs, for example, carrying out a satisfactory family, home, social, school, or work? Moderate How severe was your mood disturbance due to your RLS symptoms, for example, angry, depressed, sad, anxious, or irritable? Moderate In the past week, Overall, how much relief of your RLS arm or leg discomfort did you get from moving around? Moderaterelief How often did you get RLS symptoms? Very often (6 to 7 days in 1 week) When you had RLS symptoms, how severe were they on average? Severe (3 to 8 hours per 24 hours) Score (range: 1 - 40) 23 (Severe) CPAP Compliance: Report date: 02/13/24 % total days used: 100% % days used > 4 hours: 93.3% Average hours per day used: 6h 26m Large leak: 1 min/day AHI: 2.4 /hr Pressure settin cmH2O Equipment: DME Provider is [place] Uses a 1Ring 2. 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 Primary osteoarthritis of left knee Vitamin D insufficiency Bilateral impacted cerumen PSVT (paroxysmal supraventricular tachycardia) (HCC) Iron deficiency anemia due to chronic blood loss Risk and functional assessment BEARDEN (dyspnea on exertion) ILD (interstitial lung disease) (HCC) Centrilobular emphysema (HCC) Carcinoid tumor COPD, group A, by GOLD 2017 classification ([facility]) Type 2 diabetes mellitus with diabetic peripheral angiopathy without gangrene, with long-term current use of insulin (HCC) Thrombocytopenia (HCC) Carcinoid tumor of rectum Type 2 diabetes mellitus with hemoglobin A1c goal of less than 7.5% ([facility]) AVM (arteriovenous malformation) of small bowel, acquired Chronic maxillary sinusitis Grade I diastolic dysfunction Current Outpatient Medications Medication Sig Dispense Refill Insulin Glargine Solostar 100 UNIT/ML Subcutaneous Solution Pen-injector (Lantus SoloStar) Inject 40 Units under the skin at bedtime. 45 mL 3 Vitamin D (Ergocalciferol) 1.25 MG (96941 UT) Oral Capsule (Drisdol) Take 1 Capsule by mouth Every Month. 6 Capsule 0 tiZANidine HCl 2 MG Oral Tablet (Zanaflex) Take 1 Tablet by mouth at bedtime as needed for Muscle spasms. 90 Tablet 1 OneTouch Ultra In Vitro Strip (Glucose Blood) USE DIRECTED UP TO FOUR TIMES DAILY FOR HOME GLUCOSE TESTING 400 Strip 3 Pantoprazole Sodium 40 MG Oral Tablet Delayed Release (Protonix) TAKE ONE TABLET BY MOUTH EVERY MORNING 90 Tablet 3 Dexcom G7 Marketing Recruiter Device Use as directed. Use as directed to monitor blood sugars daily Dexcom G7 Sensor Use as directed. Use as directed to monitor blood sugars daily. Replace sensor every 10 days. E11.9 Fluticasone Propionate 50 MCG/ACT Nasal Suspension (Flonase) Administer 2 Sprays into each nostril in the morning. 18.2 g 3 Vitamin B-12 2500 MCG Sublingual Tablet Sublingual Place 1 Tablet under the tongue in the morning. Triamcinolone Acetonide 0.5 % External Cream (Aristocort) Torsemide 20 MG Oral Tablet (Demadex) TAKE ONE TABLET BY MOUTH EVERY MORNING 90 Tablet 3 Pen Vinemont 31G X 5 MM Use as directed. Use as directed with glargine insulin once daily 100 Each 3 Gabapentin 100 MG Oral Capsule (Neurontin) Take 1 Capsule by mouth in the morning. 90 Capsule 2 Gabapentin 600 MG Oral Tablet (Neurontin) TAKE ONE TABLET BY MOUTH TWICE A DAY AT NOON AND AT BEDTIME IN ADDITION TO A 100MG DOSE IN THE MORNING 180 Tablet 1 Octreotide Acetate 50 MCG/ML Subcutaneous Solution Prefilled Syringe Inject 50 mcg (1 syringe) under the skin twice daily. 60 mL 5 Acousticeye Ultra 2 w/Device Kit USE DIRECTED TO TEST BLOOD SUGARS 1 Each 0 Empagliflozin 25 MG Oral Tablet (Jardiance) Take 1 Tablet by mouth in the morning. 100 Tablet 3 Atorvastatin Calcium 40 MG Oral Tablet (Lipitor) TAKE ONE TABLET BY MOUTH EVERY MORNING 90 Tablet 3 Carvedilol 25 MG Oral Tablet (Coreg) Take 1 Tablet by mouth 2 times a day with morning and evening meals. 180 Tablet 3 Losartan Potassium 100 MG Oral Tablet (Cozaar) Take 1 Tablet by mouth in the morning. 90 Tablet 3 metFORMIN HCl ER 500 MG Oral Tablet Extended Release 24 Hour (Glucophage XR) Take 1 Tablet by mouthdaily. 90 Tablet 3 Acetaminophen 500 MG Oral Tablet (Tylenol) Take 1 to 2 tablets by mouth every 6 hours as needed Diclofenac Sodium 1 % External Gel (Voltaren) Apply 8 g topically to affected area 2 times a day asneeded for Pain. Apply dime sized amount to lower back up to two times a day as needed for pain 150g 0 CPAP every night at bedtime. Current Facility-Administered Medications Medication Dose Route Frequency Provider Last Rate Last Admin Albuterol Sulfate (Proventil) (2.5 MG/3ML) 0.083% inhalation solution 2.5 mg 2.5 mg Nebulizer Q4H PRN Iván Nielsen MD 2.5 mg at 01/25/24 0715 PHYSICAL EXAM: Filed Vitals: 02/16/24 0954 BP: 106/62 Pulse: 72 Resp: 20 Temp: 35.6 C (96.1 F) TempSrc: Tympanic SpO2: 94% Weight: 105.1 kg (231 lb 12.8 oz) Height: 1.778 m (5' 10") Body mass index is 33.26 kg/m. General: alert, no acute distress Head: NC/AT Lungs: normal respiratory effort Neuro: speech clear and appropriate Latest Reference Range & Units 04/04/23 08:50 05/05/23 07:50 06/04/23 08:04 07/05/23 07:54 08/04/23 07:52 09/08/23 10:02 Iron 45 - 176 ug/dL 151 176 148 113 81 50 Iron Binding Capacity 250 - 425 ug/dL 357 312 304 313 274 342 Transferrin Saturation Percent 15 - 55 % 42 56 (H) 49 36 30 15 Ferritin 30 - 400 ng/mL 59 64 56 76 88 100 (H): Data is abnormally high ASSESSMENT/PLAN: Obstructive sleep apnea - good adherence; encourage continued use of CPAP with all sleep - good efficacy of therapy; continue PAP at current setting 10 cmH2O - DME: [facility] - Routine cleaning and change of supplies as needed. - Continue to avoid driving when feeling sleepy/drowsy. He is feeling anemic again; suggest he have CBC/iron screen/ferritin rechecked as per standing order from Hematology. --> CBC does confirm anemia; staff message sent to his saw feeder. RLS, continues on gabapentin with benefit. Follow-up with Sleep Medicine in 1 year. Debby Cornejo DO documented in this encounter Nursing Notes * Pavithra Ann LPN - 02/16/2024 9:50 AM EDT Pt is here for f/u GUS and RLS. DME - [facility] [place] Sleepiness Scale Question 02/16/2024 9:56 AM EDT - Filed by Pavithra Ann LPN What is the chance you will doze off in the following situation? Sitting and reading Moderate chance of dozing Watching TV High chance of dozing Sitting inactive in a public place, such as a theater or meeting No chance of dozing As a passenger in a car for an hour without a break No chance of dozing Lying down to rest in the afternoon when circumstances permit Moderate chance of dozing When sitting and talking to someone No chance of dozing When sitting quietly after lunch without alcohol High chance of dozing In a car, while stopped for a few minutes in traffic No chance of dozing Score (range: 0 - 24) 10 Restless Leg Syndrome Rating Scale Question 02/16/2024 9:58 AM EDT - Filed by Pavithra Ann LPN Please complete the following questions. In the past week... Overall, how would you rate the RLS discomfort in your legs or arms? Mild Overall, how would you rate the need to move around because of your RLS symptoms? Moderate How severe was your sleep disturbance due to your RLS symptoms? Moderate How severe was your tiredness or sleepiness during the day due to your RLS symptoms? Severe How severe was your RLS as a whole? Moderate Overall, how severe was the impact of your RLS symptoms on your ability to carry out your daily affairs, for example, carrying out a satisfactory family, home, social, school, or work? Moderate How severe was your mood disturbance due to your RLS symptoms, for example, angry, depressed, sad, anxious, or irritable? Moderate In the past week, Overall, how much relief of your RLS arm or leg discomfort did you get from moving around? Moderaterelief How often did you get RLS symptoms? Very often (6 to 7 days in 1 week) When you had RLS symptoms, how severe were they on average? Severe (3 to 8 hours per 24 hours) Score (range: 1 - 40) 23 (Severe) documented in this encounter Plan of Treatment Upcoming Encounters Date Type Department Care Team (Latest Contact Info) Description 03/02/2024 8:00 AM EDT Laboratory Laboratory Patient Service [address] [phone] [address] 03/07/2024 9:00 AM EDT Office Visit Family Practice [address] [facility], [place] [address] [place] [address] Javy Moscoso DO [address] [place] [phone] 03/08/2024 8:00 AM EDT Laboratory Laboratory [facility], [place] [place] [phone] Brendon Shankar [address] [place], [place] [address] [address] 03/15/2024 11:00 AM EDT Office Visit Hematology/Oncolog y [employer] [address] [facility] [place] [phone] Katt Mullen CRNP [address] [facility] [place] [address] 04/27/2024 9:30 AM EDT Hospital Encounter ENDO OSS, Endoscopy Room [facility] [address] [facility] [place] [phone] Dominick Amador MD [address] [place] [address] 04/27/2024 9:30 AM EDT - 04/27/2024 10:15 AM EDT Surgery ENDO OSS, Endoscopy Room [facility] [address] [place] [phone] Dominick Amador MD [address] [place] [address] COLONOSCOPY FLEXIBLE PROXIMAL DIAGNOSTIC 07/24/2024 2:00 PM EST Office Visit Nephrology, [facility] [address] [facility] [place] [address] Augusto Lerner MD [address] [facility] [place] [address] 10/03/2024 11:00 AM EST Nurse Only Ancillary [address] [place] [address] [place] [phone] [place] Nurse Annual Wellness Visit [address] [place] [phone] 02/15/2025 10:00 AM EDT Office Visit Sleep Disorders Ctr [facility] [address] [place] [phone] Debby Cornejo DO [address] [place] [address] Scheduled Procedures Name Priority Associated Diagnoses Date/Ti [...] COPD 03/28/2024 03/28/2023 CKD PHOS USE SMARTSET 28337 05/05/2024 0902/2023, 02/02/2023, 01/11/2022, Additional history exists HbA1c 06/15/2024 12/15/2023, 08/29, 08/04/2023, Additional history exists Diabetic Foot Exam 06/16/2024 06/16/2023, 06/16/2023 Diabetic Eye Exam 08/24/2024 08/24/2023, , 11/02/2022, Additional history exists Albumin/Creatinine Ratio 09/09/2024 09/09/2023, 11/0 11/2021 Depression Screening 12/21/2024 12/22/2023 CKD HGB USE SMARTSET 33832 02/15/202502/15, 02/16/2024, 09/08/2023, Additional history exists DTaP,Tdap,and [...] as of this encounter Visit Diagnoses Diagnosis Obstructive sleep apnea- Primary Obstructive sleep apnea (adult) (pediatric) Iron deficiency anemia Iron deficiency anemia, unspecified [...] of Attor kwabena? No Care Teams Senior Compensation Analyst Relationship Specialty Start Date End Date Javy Moscoso DO [address] [place] [address] PCP - General Family Medicine 07/04/23 documented as of this encounter
--- OUTSIDE RECORDS SUMMARY | 2024-02-25 03:31 | External Medical Summary ---
Author Name Unknown Address Unknown Organization [id number]:[facility] [place] - [address] [place] [address] Laboratory Report Ordering Provider Test Date Status MONTSE MEJIA 02/16/2024 10:34:34 Final Observation Date Value Abnormality Reference (Units ) Status Iron 02/16/2024 10:34:34 13 Below low normal 45-176 (ug/dL) Final Iron-binding capacity 02/16/2024 10:34:34 430 Above high normal 250-425 (ug/dL) Final Transferrin Sat % 02/16/2024 10:34:34 3 Below low normal 15-55 (%) Final Performing Location [facility] [place] - [address] [place] [address]
--- OUTSIDE RECORDS SUMMARY | 2024-02-25 03:31 | External Medical Summary ---
Author Name Unknown Address Unknown Organization [id number]:[facility] - [address] [place] [address] Laboratory Report Ordering Provider Test Date Status MONTSE MEJIA 02/16/2024 10:34:34 Final Observation Date Value Abnormality Reference (Units ) Status SYNC LEUKOCYTES IN BLOOD BY AUTOMATED COUNT 02/16/2024 10:34:34 6.17 4.00-10.80 (K/uL) Final Segs 02/16/2024 10:34:34 74.9 40.0-75.0 (%) Final Lymphs % 02/16/2024 10:34:34 15.9 Below low normal 18.0-42.0 (%) Final Monos 02/16/2024 10:34:34 6.6 1.0-11.0 (%) Final Eosinophils 02/16/2024 10:34:34 2.1 0.0-6.0 (%) Final Basos 02/16/2024 10:34:34 0.5 0.0-2.0 (%) Final Absolute Segs 02/16/2024 10:34:34 4.62 1.80-7.70 (K/uL) Final Lymphs, absolute 02/16/2024 10:34:34 0.98 Below low normal 1.00-4.80 (K/ul) Final Monos, Abs 02/16/2024 10:34:34 0.41 0.00-1.10 (K/uL) Final Eos, Abs 02/16/2024 10:34:34 0.13 0.00-0.70 (K/uL) Final Basos, Abs 02/16/2024 10:34:34 0.03 0.00-0.20 (K/uL) Final Performing Location [facility] - [address] [place] [address]
--- OUTSIDE RECORDS SUMMARY | 2024-02-25 03:31 | External Medical Summary | Summary of Care ---
Author Name Unknown Organization [facility] Address [address] [place] [address] Phone [phone] Care Team Providers Care Latex Spooler Name Role Phone Javy Moscoso DO Primary Care Provider + [phone] Encounter Details Date Type Department Care Team (Late st Contact Info) Description 01/17/2024 Population Health External Data Unspecified Department Allergies Active Allergy Reactions Criticality Noted Date Comments Lisinopril Unknown Low 11/15/2022 Verapamil Medium 06/26/2020 Heart Block documented as of this encounter (statuses as of 01/18/2024) Medications Medication Sig Dispensed Refills Start Date [...] the morning. 100 Tablet 3 08/05/2023 Active [employer] 2 w/Device Kit USE DIRECTED TO TEST [...] morning. 90 Capsule 2 10/04/2023 Active Pen Bern 31G X 5 MMIndications:Type 2 diabetes mellitus [...] every 10 days. E11.9 Active Dexcom G7 Interventional Pain Physician Device Use as directed. Use as directed [...] hyperglycemia, with long-term current use of insulin ([facility]) USE DIRECTED UP TO FOUR TIMES DAILY FOR HOME GLUCOSE TESTING 400 Strip 3 12/22/2023 Active tiZANidine HCl 2 MG Oral Tablet (Zanaflex)Indication s:Spinal stenosis of lumbar region without neurogenic claudication Take 1 Tablet by mouth at bedtime as needed for Muscle spasms. 90 Tablet 1 01/02/2024 Active Vitamin D (Ergocalciferol) 1.25 MG (11056 UT) Oral Capsule (Drisdol)Indications :Vitamin D deficiency Take 1 Capsule by mouth Every Month. 6 Capsule 2024 07/11/2024 Active Insulin Glargine Solostar 100 UNIT/ML Subcutaneous Solution Pen-injector (Lantus SoloStar)Indications :Type 2 diabetes mellitus with hyperglycemia, with long-term current use of insulin ([facility]) Inject 40 Units under the skin at bedtime. 45 mL 3 01/17/2024 Active Hospital, Clinic, or Other Facility Administered Medication Ordered Dose Route Frequency Start Date End Date Status Albuterol Sulfate (Proventil) (2.5 MG/3ML) 0.083% inhalation solution 2.5 mgIndications:ILD (interstitial lung disease) ([facility]),BEARDEN (dyspnea on exertion) 2.5 mg NEBULIZER Q4H PRN 12/12/2023 Act jose documented as of this encounter (statuses as of 01/18/2024) Active Problems Problem Noted Date Diagnosed Date [...] 12/07/2022 Bilateral impacted cerumen 10/22/2022 Atherosclerosis of [place] co ronary artery without angina pectoris 07/15/2022 [...] as of this encounter (statuses as of 01/18/2024) Resolved Problems Problem Noted Date Diagnosed Date [...] Overview: Per CKD protocol Symptomatic bradycardia 02/14/2019 0610/2018 Hyperkalemia 02/14/2019 02/18/2019 ARNOLDO (acute kidney injury) 02/14/2019 Acute respiratory failure with hypercapnia 02/14/2019 02/18/2019 Respiratory acidosis 02/14/2019 019 Lactic acidosis 02/14/2019 02/18/2019 documented as of this encounter (statuses as of 01/18/2024) Immunizations Name Administration Dates Next Due COVID-19 mRNA, LNP-s, No Pre serve, 2-Dose Series (Pfizer) 07/03/2021,12/27/2020,12/06/2020 COVID-19, MRNA-LNP, 23-24, P F, 30 MCG/0.3 mL, 12 YRS AND ABOVE, IM (Lumicell-Comirnaty) 06/16/2023 Pneumococcal Conjugate Vacci ne, 20-valent ([id number]) 12/07/2022 Pneumococcal Polysaccharide PPV23 (Pneumovax) 09/08/2020 Season [...] 7:30 AM EDT PulmDiagnostic Pulmonary Function Lab, [facility] [place] [address] [place], [address] 132 [facility] [place] [address] 02/16/2024 10:00 AM EDT Office Visit Sleep Disorders Ctr [facility] 132 [facility] [place] [phone] Debby Cornejo, DO [address] [place] [address] 03/02/2024 8:00 AM EDT Laboratory [facility] [place] [facility] [place] [phone] [place], Lab Lock [address] [place], [place] [address] [address] 03/07/2024 9:00 AM EDT Office Visit Family Practice 65 [facility], [place] [address] [place] [address] Javy Moscoso DO [address] [place] [address] 03/08/2024 8:00 AM EDT Laboratory [facility], [place] [facility] [place] [phone] [place], Lab Lock [address] [place] [address] 03/15/2024 11:00 AM EDT Office Visit Hematology/Oncolog y [facility] [place] [address] [place] [phone] Katt Mullen CRNP [address] [place] [address] 04/27/2024 9:30 AM EDT Hospital Encounter ENDO [facility], Endoscopy Room [facility] [address] [place] [address] Dominick Amador MD [address] [place] [address] 04/27/2024 9:30 AM EDT - 04/27/2024 10:15 AM EDT Surgery ENDO [facility], Endoscopy Room [facility] [address] [place] [phone] Dominick Amador MD [address] [place] [address] COLONOSCOPY FLEXIBLE PROXIMAL DIAGNOSTIC 07/24/2024 2:00 PM EST Office Visit Nephrology, [facility] 200 [facility] [place] [address] Augusto Lerner MD 200 [facility] [place] [address] 10/03/2024 11:00 AM EST Nurse Only Ancillary [address], [place] [address] [place] [address] [place], Nurse Annual Wellness Visit [address] [place] [phone] Scheduled Procedures Name Priority Associated Diagnoses Date/Ti [...] COPD 03/28/2024 03/28/2023 CKD PHOS USE SMARTSET 95705 05/05/202402/2023, 02/02/2023, 01/11/2022, Additional history exists HbA1c 06/15/2024 12/15/2023, 08/29, 08/04/2023, Additional history exists Diabetic Foot Exam 06/16/2024 06/16/2023, 06/16/2023 Diabetic Eye Exam 08/24/2024 08/24/2023, , 11/02/2022, Additional history exists CKD HGB USE SMARTSET 72726 09/08/202409/08, 09/08/2023, 08/04/2023, Additional history exists Albumin/Creatinine [...] Power of Attor kwabena? No Care Teams Latex Spooler Relationship Specialty Start Date End Date Javy Moscoso DO [address] [place] [address] PCP - General Family Medicine 07/04/23 documented as of this encounter
--- OUTSIDE RECORDS SUMMARY | 2024-02-25 03:31 | External Medical Summary ---
Author Name Unknown Address Unknown Organization K01:LABORATORY [facility] - [address] [facility] [address] Laboratory Report Ordering Provider Test Date Status MEGAN BRICENO 02/16/2024 10:34:34 Final Observation Date Value Abnormality Reference (Units ) Status MYCODE SPECIMEN-SST 02/16/2024 10:34:34 Freezing of extracted DNA, whole blood and/or serum. Final Performing Location LABORATORY [facility] - [address] [facility] [address]
--- OUTSIDE RECORDS SUMMARY | 2024-02-25 03:31 | External Medical Summary ---
Author Name Unknown Address Unknown Organization K01:[facility] - [address] [place] [address] Laboratory Report Ordering Provider Test Date Status MONTSE MEJIA 02/16/2024 10:34:34 Final Observation Date Value Abnormality Reference (Units ) Status Ferritin 02/16/2024 10:34:34 13 Below low normal 30- 400 (ng/mL) Final Performing Location [facility]ATORY [facility] - [address] [place] [address]
--- OUTSIDE RECORDS SUMMARY | 2024-02-25 03:31 | External Medical Summary | Summary of Care ---
Author Name Unknown Organization [facility] Address [address] [facility] [place] [address] Phone [phone] Care Team Providers Care Armature Balancer Name Role Phone Javy Moscoso DO Primary Care Provider + [phone] Reason for Visit * Reason Onset Date Comments Other 02/16/2024 DME order Encounter Details Date Type Department Care Team (Late st Contact Info) Description 02/16/2024 Telephone Sleep Disorders Ctr [facility] [address] [place] [phone] Debby Cornejo DO [address] [place] [address] Other (DME order ) Allergies Active Allergy Reactions Criticality Noted Date [...] the morning. 100 Tablet 3 08/05/2023 Active [employer] 2 w/Device Kit USE DIRECTED TO TEST [...] morning. 90 Capsule 2 10/04/2023 Active Pen [place] 31G X 5 MMIndications:Type 2 diabetes mellitus [...] every 10 days. E11.9 Active Dexcom G7 Grain Sacker Device Use as directed. Use as directed [...] hyperglycemia, with long-term current use of insulin ([facility]) USE DIRECTED UP TO FOUR TIMES DAILY FOR HOME GLUCOSE TESTING 400 Strip 3 12/22/2023 Active tiZANidine HCl 2 MG Oral Tablet (Zanaflex)Indication s:Spinal stenosis of lumbar region without neurogenic claudication Take 1 Tablet by mouth at bedtime as needed for Muscle spasms. 90 Tablet 1 01/02/2024 Active Vitamin D (Ergocalciferol) 1.25 MG (26602 UT) Oral Capsule (Drisdol)Indications :Vitamin D deficiency Take 1 Capsule by mouth Every Month. 6 Capsule 2024 07/11/2024 Active Insulin Glargine Solostar 100 UNIT/ML Subcutaneous Solution Pen-injector (Lantus SoloStar)Indications :Type 2 diabetes mellitus with hyperglycemia, with long-term current use of insulin ([facility]) Inject 40 Units under the skin at bedtime. 45 mL 3 01/17/2024 Active Hospital, Clinic, or Other Facility Administered Medication Ordered Dose Route Frequency Start Date End Date Status Albuterol Sulfate (Proventil) (2.5 MG/3ML) 0.083% inhalation solution 2.5 mgIndications:ILD (interstitial lung disease) ([facility]),BEARDEN (dyspnea on exertion) 2.5 mg [...] 12/07/2022 Bilateral impacted cerumen 10/22/2022 Atherosclerosis of [place] co ronary artery without angina pectoris 07/15/2022 [...] mRNA, LNP-s, No Pre serve, 2-Dose Series ([employer]) 07/03/2021,12/27/2020,12/06/2020 COVID-19, MRNA-LNP, 23-24, P F, 30 MCG/0.3 mL, 12 YRS AND ABOVE, IM (PFIZER-Comirnaty) 06/16/2023 Pneumococcal Conjugate Vacci ne, 20-valent ([id number]) 12/07/2022 Pneumococcal Polysaccharide PPV23 (Pneumovax) 09/08/2020 Season [...] encounter Miscellaneous Notes * Telephone Encounter - Mya To [facility] - 02/16/2024 2:28 PM EDT DME order for CPAP submitted to [facility]. documented in this encounter Plan of Treatment Upcoming Encounters Date Type Department Care Team (Latest Contact Info) Description 03/02/2024 8:00 AM EDT Laboratory Laboratory Patient Service [place], [place] [address] [place] [phone] [place], Lab Lock [address] [place] [address] 03/07/2024 9:00 AM EDT Office Visit Family [facility] 65 [facility] [place] [address] [place] [phone] Javy Moscoso DO [address] [place] [address] 03/08/2024 8:00 AM EDT Laboratory Laboratory Patient Service [place], [place] [address] [place] [phone] [place], Lab Lock [address] [place] [address] 03/15/2024 11:00 AM EDT Office Visit Hematology/Oncolog y [facility] [place] [facility] [phone] Katt Mullen CRNP [address] [place] [address] [facility] [address] 04/27/2024 9:30 AM EDT Hospital Encounter ENDO [facility], Endoscopy Room [facility] [address] [place] [phone] Dominick Amador MD [address] [place] [address] 04/27/2024 9:30 AM EDT - 04/27/2024 10:15 AM EDT Surgery ENDO [facility], Endoscopy Room [facility] [address] [place] [address] Dominick Amador MD [address] [place] [address] COLONOSCOPY FLEXIBLE PROXIMAL DIAGNOSTIC 07/24/2024 2:00 PM EST Office Visit Nephrology, [facility] 200 [facility] [place] [address] Augusto Lerner MD 200 [facility] [place] [address] 10/03/2024 11:00 AM EST Nurse Only Ancillary [address], [place] [address] [place] [phone] [place], Nurse Annual Wellness Visit [address] [place] [address] 02/15/2025 10:00 AM EDT [facility] [address] [place] [address] Debby Cornejo DO [address] [place] [address] Scheduled Procedures Name Priority Associated Diagnoses Date/Ti [...] COPD 03/28/2024 03/28/2023 CKD PHOS USE SMARTSET 56465 05/05/202402/2023, 02/02/2023, 01/11/2022, Additional history exists HbA1c 06/15/2024 12/15/2023, 08/29, 08/04/2023, Additional history exists Diabetic Foot Exam 06/16/2024 06/16/2023, 06/16/2023 Diabetic Eye Exam 08/24/2024 08/24/2023, , 11/02/2022, Additional history exists Albumin/Creatinine Ratio 09/09/2024 09/09/2023, 11/2021 Depression Screening 12/21/2024 12/22/2023 CKD HGB USE SMARTSET 77708 02/15/202502/15, 02/16/2024, 09/08/2023, Additional history exists DTaP,Tdap,and [...] Power of Attor kwabena? No Care Teams Armature Balancer Relationship Specialty Start Date End Date Javy Moscoso DO [address] [place] [phone] PCP - General Family Medicine 07/04/23 documented as of this encounter
--- OUTSIDE RECORDS SUMMARY | 2024-02-25 03:32 | External Medical Summary | Summary of Care ---
Author Name Unknown Organization [facility] Address [address] [place] [address] Phone [phone] Care Team Providers Care Environmental Engineering Manager Name Role Phone Javy Moscoso DO Primary Care Provider + [phone] Reason for Visit * Reason Onset Date Comments Blood Glucose Monitoring 12/29/2023 Encounter Details Date Type Department Care Team (Late st Contact Info) Description 12/29/2023 Telephone Family Practice [facility], [place] [address] [place] [address] Hans Kaba, [facility] [address] [place] [address] Blood Glucose Monitoring Allergies Active Allergy Reactions Criticality Noted Date Comments Lisinopril Unknown Low 11/15/2022 Verapamil Medium 06/26/2020 Heart Block documented as of this encounter (statuses as of 12/29/2023) Medications Medication Sig Dispensed Refills Start Date End Date Status CPAP every night at bedtime. 0 Active Diclofenac Sodium 1 % External Gel (Voltaren) Apply 8 g topically to affected area 2 times a day as needed for Pain. Apply dime sized amount to lower back up to two times a day as needed for pain 150 g 0 08/02/2022 Active Acetaminophen 500 MG Oral Tablet (Tylenol) Take 1 to 2 tablets by mouth every 6 hours as needed 0 03/09/2022 Active Losartan Potassium 100 MG Oral [...] the morning. 100 Tablet 3 08/05/2023 Active tiZANidine HCl 2 MG Oral Tablet (Zanaflex)Indication s:Spinal stenosis of lumbar region without neurogenic claudication Take 1 Tablet by mouth at bedtime as needed for Muscle spasms. 90 Tablet 1 09/08/2023 Active Vitamin D (Ergocalciferol) 1.25 MG (97688 UT) Oral Capsule (Drisdol)Indications :Vitamin D deficiency Take 1 Capsule by mouth Every Month. 6 Capsule 0 09/08/2023 03/06/2024 Active [employer] 2 w/Device Kit USE DIRECTED TO TEST BLOOD SUGARS 1 Each 0 09/08/2023 Active Octreotide Acetate 50 MCG/ML Subcutaneous [...] morning. 90 Capsule 2 10/04/2023 Active Pen [place] 31G X 5 MMIndications:Type 2 diabetes mellitus [...] (Aristocort) APPLY TO RASH ON ANKLE DAILY. 0 09/22/2023 Active Vitamin B-12 2500 MCG Sublingual Tablet Sublingual Place 1 Tablet under the tongue in the morning. 0 Active Dexcom G7 Sensor Use as directed. Use as directed to monitor blood sugars daily. Replace sensor every 10 days. E11.9 0 Active Dexcom G7 Linux Admin Device Use as directed. Use as directed to monitor blood sugars daily 0 Active Fluticasone Propionate 50 MCG/ACT Nasal Suspension (Flonase)Indications :Chronic maxillary sinusitis Administer 2 Sprays into each nostril in the morning. 18.2 g 3 12/06/2023 Active Pantoprazole Sodium 40 MG Oral Tablet Delayed Release (Protonix)Indication s:Gastroesophageal reflux disease without esophagitis TAKE ONE TABLET BY MOUTH EVERY MORNING 90 Tablet 3 12/14/2023 12/13/2024 Active Insulin Glargine Solostar 100 UNIT/ML Subcutaneous Solution Pen-injector (Lantus SoloStar)Indications :Type 2 diabetes mellitus with hyperglycemia, with long-term current use of insulin ([facility]) Inject 30 Units under the skin at bedtime. 15 mL 3 12/22/2023 Active OneTouch Ultra In Vitro Strip (Glucose Blood)Indications:Ty pe 2 diabetes mellitus with hyperglycemia, with long-term current use of insulin ([facility]) USE DIRECTED UP TO FOUR TIMES DAILY FOR HOME GLUCOSE TESTING 400 Strip 3 12/22/2023 Active Hospital, Clinic, or Other Facility Administered Medication Ordered Dose Route Frequency Start Date End Date Status Albuterol Sulfate (Proventil) (2.5 MG/3ML) 0.083% inhalation solution 2.5 mgIndications:ILD (interstitial lung disease) ([facility]),BEARDEN (dyspnea on exertion) 2.5 mg NEBULIZER Q4H PRN 12/12/2023 Act jose documented as of this encounter (statuses as of 12/29/2023) Active Problems Problem Noted Date Diagnosed Date [...] as of this encounter (statuses as of 12/29/2023) Resolved Problems Problem Noted Date Diagnosed Date [...] as of this encounter (statuses as of 12/29/2023) Immunizations Name Administration Dates Next Due COVID-19 mRNA, LNP-s, No Pre serve, 2-Dose Series ([employer]) 07/03/2021,12/27/2020,12/06/2020 COVID-19, MRNA-LNP, 23-24, P F, 30 MCG/0.3 mL, 12 YRS AND ABOVE, IM (PFIZER-Comirnaty) 06/16/2023 Pneumococcal Conjugate Vacci ne, 20-valent ([id number]) 12/07/2022 Pneumococcal Polysaccharide PPV23 (Pneumovax) 09/08/2020 Season Influenza, Quad, PF, Adjuvanted, 65+ Yrs, IM (FLUAD) 06/03/2020 Seasonal Influenza Virus Vac cine, Unspecified Formulation 05/22/2019 Seasonal Influenza, Quadriva lent Hd (Fluzone Hd) 06/16/2023,05/06/2022,06/13/2021 TDAP (age 10 and older)(Boostrix) 03/17/2021 Zoster Vaccine Recombinant (Shingrix) 11/17/2021 documented as of this encounter Social History Tobacco Use Types Packs/Day Years Used Date Smoking Tobacco: Former Cigarettes - 1994 Passive Smoke Exposure: Past Smokeless [...] Telephone Encounter - Javy Moscoso DO - 12/29/2023 5:25 PM EDT Noted * Telephone Encounter - Hans Kaba RPh - 12/29/2023 5:04 PM EDT Patient Phone Numbers Spoke to patient's . BG remain elevated. Reports lowest reading in 170s in the morning and trend up over the day. Current Lantus dose 30 units. Instructed to increase Lantus to 35 units at bedtime. Will follow-up next week via phone call. Plan to discuss meal coverage. Hans Kaba PharmD Clinical Pharmacist [facility] 12/29/2023 5:06 PM documented in this encounter Plan of Treatment Upcoming Encounters Date Type Department Care Team (Late st Contact Info) Description 01/17/2024 9:00 AM EDT Office Visit Family Practice [address], [place] [address] [place] [phone] [place] Pharmacist [address] [place] [phone] 01/25/2024 7:30 AM EDT PulmDiagnostic Pulmonary Function Lab, [address] [place] [address] [place], [address] [facility] [place] [address] 02/16/2024 10:00 AM EDT Office Visit Sleep Disorders Ctr [facility] [address] [facility] [place] [phone] Debby Cornejo, DO 132 [facility] [place] [address] 03/02/2024 8:00 AM EDT Laboratory Laboratory [facility], [place] [address] [place] [address] [place], Lab Lock [address] [place] [address] 03/07/2024 9:00 AM EDT Office Visit Family Practice [address] [place] [address] [address] [place] [phone] Javy Moscoso DO [address] [place] [address] 03/08/2024 8:00 AM EDT Laboratory Laboratory Patient Service [place], [place] 68 [facility] [place] [phone] [place], Lab Lock [address] [place] [address] 03/15/2024 11:00 AM EDT Office Visit Hematology/Oncolog y [facility] [address] [place], [place] [phone] Katt Mullen CRNP [address] [place] [address] [place] [phone] 04/27/2024 9:30 AM EDT Hospital Encounter ENDO [facility], [facility] [place] [phone] Dominick Amador MD [address] [place] [address] 04/27/2024 9:30 AM EDT - 04/27/2024 10:15 AM EDT Surgery ENDO [facility], Endoscopy Room [facility] [address] [place] [phone] Dominick Amador MD [address] [place] [address] COLONOSCOPY FLEXIBLE PROXIMAL DIAGNOSTIC 07/24/2024 2:00 PM EST Office Visit Nephrology, [facility] 200 [facility] [place] [address] Augusto Lerner MD [address] [place] [address] 10/03/2024 11:00 AM EST Nurse Only Ancillary [facility] [place] [address] [place] [address] [place], Nurse Annual Wellness Visit [address] [place] [phone] Scheduled Procedures Name Priority Associated Diagnoses Date/Ti [...] Colorectal Cancer Screening 12/11/2023 GFR 03/08/2024 09/08/2023, 1202/2023, 05/05/2023, Additional history exists O2 ASSESSMENT COMPLETED IN PAST YEAR FOR COPD 03/28/2024 03/28/2023 CKD PHOS USE SMARTSET 38543 05/05/2024 09/0 02/2023, 02/02/2023, 01/11/2022, Additional history exists HbA1c 06/15/2024 12/15/2023, 08/29, 08/04/2023, Additional history exists Diabetic Foot Exam 06/16/2024 06/16/2023, 06/16/2023 Diabetic Eye Exam 08/24/2024 08/24/2023, , 11/02/2022, Additional history exists CKD HGB USE SMARTSET 73725 09/08/202409/08, 09/08/2023, 08/04/2023, Additional history exists Albumin/Creatinine Ratio 09/09/2024 09/09/2023, 110 11/2021 Depression Screening 12/21/2024 12/22/2023 DTaP,Tdap,and Td Vaccines (2 - Td or Tdap) 03/17/2031 03/17/2021 AAA Screening Completed 06/20/2020, 01/28, 01/12/2019 Alpha-1 Antitrypsin Completed 03/15/2022 Pneumococcal Vaccine: 65+ Years Completed 12/07/2022, 09/08/2020 RETIRED - COLONOSCOPY-ANNUAL AGES 18-100 Discontinued 12/10/2022, 12/10/2022, 12/15/2020, Additional history exists COVID-19 Vaccine Completed 06/16/2023, 12/2020, 12/27/2020, Additional history exists Influenza Vaccine (FLU shot) [...] filedocumented as of this encounter Advance Directives Latest Code Status on File Code Status Date Activated Date Inactivated Comments Full Code 02/15/2019 9:23 PM 02/18/2019 2:08 PM This order reflects the patients wishes and were consensually agreed upon. Question Answer Comments Discussion of Advance Directives occurred with: Patient Does the patient have a Living Will? No Does the patient have Health Care Power of Sheep Sorter? No Care Teams Environmental Engineering Manager Relationship Specialty Start Date End Date Javy Moscoso DO [address] [place] [phone] PCP - General Family Medicine 07/04/23 documented as of this encounter
--- OUTSIDE RECORDS SUMMARY | 2024-02-25 03:32 | External Medical Summary | Summary of Care ---
Author Name Unknown Organization [facility] Address [address] [place] [address] Phone [phone] Care Team Providers Care Shrimp Header Name Role Phone Javy Moscoso DO Primary Care Provider + [phone] Reason for Visit * Reason Onset Date Comments Blood Glucose Monitoring 12/29/2023 Encounter Details Date Type Department Care Team (Late st Contact Info) Description 12/29/2023 Telephone Family Practice 65 [facility], [place] [address] [place] [address] Hans Kaba, [facility] [address] [place] [address] Blood Glucose Monitoring Allergies [...] 09/08/2023 Active Vitamin D (Ergocalciferol) 1.25 MG (08440 UT) Oral Capsule (Drisdol)Indications :Vitamin D deficiency Take 1 Capsule by mouth Every Month. 6 Capsule 0 09/08/2023 03/06/2024 Active exurbe cosmetics Ultra 2 w/Device Kit USE DIRECTED TO [...] morning. 90 Capsule 2 10/04/2023 Active Pen [place] 31G X 5 MMIndications:Type 2 diabetes mellitus [...] 10 days. E11.9 0 Active Dexcom G7 Administration Assistant Device Use as directed. Use as directed [...] mgIndications:ILD (interstitial lung disease) ([facility]),BEARDEN (dyspnea on exertion) 2.5 mg NEBULIZER Q4H [...] Bilateral impacted cerumen 10/22/2022 Atherosclerosis of [place] ronary artery without angina pectoris 07/15/2022 [...] mRNA, LNP-s, No Pre serve, 2-Dose Series (GenSpera) 07/03/2021,12/27/2020,12/06/2020 COVID-19, MRNA-LNP, 23-24, P F, 30 MCG/0.3 mL, 12 YRS AND ABOVE, IM (PFIZER-Comirnaty) 06/16/2023 Pneumococcal Conjugate Vacci ne, 20-valent ([email or web address]) 12/07/2022 Pneumococcal Polysaccharide PPV23 (Pneumovax) 09/08/2020 Season [...] encounter Miscellaneous Notes * Telephone Encounter - Hans Kaba RPh - 12/29/2023 5:04 PM EDT Patient Phone Numbers Spoke to patient's . BG remain elevated. Reports lowest reading in 170s in the morning and trend up over the day. Current Lantus dose 30 units. Instructed to increase Lantus to 35 units at bedtime. Will follow-up next week via phone call. Plan to discuss meal coverage. Hans Kaba, Ki Clinical Pharmacist [facility] 12/29/2023 5:06 PM documented in this encounter Plan of Treatment Upcoming Encounters Date Type Department Care Team (Late st Contact Info) Description 01/17/2024 9:00 AM EDT Office Visit Family Practice [address] [place] [address] [place] [address] [place] M[place] [address] [place] Pharmacist [address] [place] M[place]arthy [address] 01/25/2024 7:30 AM EDT PulmDiagnostic Pulmonary Function Lab, [facility] 132 [facility] [place] [address] [place], Pft 132 [facility] [place] [address] 02/16/2024 10:00 AM EDT Office Visit Sleep Disorders Ctr [facility] [address] [place] [phone] Debby Cornejo DO [address] [place] [address] 03/02/2024 8:00 AM EDT Laboratory Laboratory Patient Service [place], [place] [address] [place] [address] [place], [address] [place] [address] 03/07/2024 9:00 AM EDT Office Visit Family Practice [address] [place] [address], [place] [address] [place] M[place] [address] Javy Moscoso DO [address] [place] [address] 03/08/2024 8:00 AM EDT Laboratory Laboratory Patient Service [place], [place] [address] [place] [phone] [place], [address] [place] [address] 03/15/2024 11:00 AM EDT Office Visit Hematology/Oncolog y [facility] [address] [facility] [phone] Katt Mullen CRNP [address] [place] [address] [place] [address] 04/27/2024 9:30 AM EDT Hospital Encounter ENDO [facility], Endoscopy Room [facility] [address] [place] Thomas [phone] Dominick Amador MD [address] [place] [address] 04/27/2024 9:30 AM EDT - 04/27/2024 10:15 AM EDT Surgery ENDO [facility], Endoscopy Room [facility] [address] [place] [phone] Dominick Amador MD [address] [place] [address] COLONOSCOPY FLEXIBLE PROXIMAL DIAGNOSTIC 07/24/2024 2:00 PM EST Office Visit Nephrology, [facility] [address] [place] [address] Augusto Lerner MD [address] [place] Sharma [address] 10/03/2024 11:00 AM EST Nurse Only Ancillary [address], [place] [address] [place] M[place] [address] [place], Nurse Annual Wellness Visit [address] [place] M[place] [address] Scheduled Procedures Name Priority [...] COPD 03/28/2024 03/28/2023 CKD PHOS USE SMARTSET 62028 05/05/20240 02/2023, 02/02/2023, 01/11/2022, Additional history exists HbA1c 06/15/2024 12/15/2023, 08/29, 08/04/2023, Additional history exists Diabetic Foot Exam 06/16/2024 06/16/2023, 06/16/2023 Diabetic Eye Exam 08/24/2024 08/24/2023, , 11/02/2022, Additional history exists CKD HGB USE SMARTSET 14274 09/08/202409/08, 09/08/2023, 08/04/2023, Additional history exists Albumin/Creatinine [...] the patient have Health Care Power of Social Worker Palliative Care? No Care Teams Shrimp Header Relationship Specialty Start Date End Date Javy Moscoso DO [address] [place] [address] PCP - General Family Medicine 07/04/23 documented as of this encounter
--- OUTSIDE RECORDS SUMMARY | 2024-02-25 03:32 | External Medical Summary | Summary of Care ---
Author Name Unknown Organization [facility] Address [address] [place] [address] Phone [phone] Care Team Providers Care Fruit Thinner Machine Operator Name Role Phone Javy Moscoso DO Primary Care Provider [phone] Reason for Visit * Reason Onset Date Comments Referral 10/07/2023 Encounter Details Date Type Department Care Team (Late st Contact Info) Description 10/07/2023 Telephone Family Practice [address] [address] Javy Moscoso DO [address] [place] [address] Referral Allergies Active Allergy Reactions Criticality Noted Date Comments Lisinopril Unknown Low 11/15/2022 Verapamil Medium 06/26/2020 Heart Block documented as of this encounter (statuses as of 01/06/2024) Medications Medication Sig Dispensed Refills Start Date [...] the morning. 100 Tablet 3 08/05/2023 Active Vitamin D (Ergocalciferol) 1.25 MG (46163 UT) Oral Capsule (Drisdol)Indications :Vitamin D deficiency Take 1 Capsule by mouth Every Month. 6 Capsule 0 09/08/2023 03/06/2024 Active [employer] Ultra 2 w/Device Kit USE DIRECTED TO [...] morning. 90 Capsule 2 10/04/2023 Active Pen [place] 31G X 5 MMIndications:Type 2 diabetes mellitus with hyperglycemia, with long-term current use of insulin (HCC) Use as directed. Use as directed with glargine insulin once daily 100 Each 3 10/06/2023 Active documented as of this encounter (statuses as of 01/06/2024) Active Problems Problem Noted Date Diagnosed Date [...] 12/07/2022 Bilateral impacted cerumen 10/22/2022 Atherosclerosis of [place] co ronary artery without angina pectoris 07/15/2022 [...] as of this encounter (statuses as of 01/06/2024) Resolved Problems Problem Noted Date Diagnosed Date [...] as of this encounter (statuses as of 01/06/2024) Immunizations Name Administration Dates Next Due COVID-19 mRNA, LNP-s, No Pre serve, 2-Dose Series (Autoparts24) 07/03/2021,12/27/2020,12/06/2020 COVID-19, MRNA-LNP, 23-24, P F, 30 MCG/0.3 mL, 12 YRS AND ABOVE, IM (PFIZER-Comirnaty) 06/16/2023 Pneumococcal Conjugate Vacci ne, 20-valent ([email or web address]) 12/07/2022 Pneumococcal Polysaccharide PPV23 (Pneumovax) 09/08/2020 Season [...] encounter Miscellaneous Notes * Telephone Encounter - Mary Ellen Sorenson RN - 10/07/2023 1:20 PM EST Pt was in 09/28/23 for AWV and his score on his TUG test was 13.68 seconds documented in this encounter Plan of Treatment Upcoming Encounters Date Type Department Care Team (Late st Contact Info) Description 01/17/2024 9:00 AM EDT Office Visit Family Practice 65 [facility], [place] [address] [place] [address] [place], Pharmacist [address] [place] [address] 01/25/2024 7:30 AM EDT PulmDiagnostic Pulmonary Function Lab, [facility] [address] [place] [address] [place], [address] [place] [address] 02/16/2024 10:00 AM EDT Office Visit Sleep Disorders Ctr [facility] [address] [place] [phone] Debby Cornejo, DO [address] [place] [address] 03/02/2024 8:00 AM EDT Laboratory Laboratory [facility], [place] [address] [place] [phone] [place], Lab [address] [place] [address] 03/07/2024 9:00 AM EDT Office Visit [facility] [address], [place] [address] [place] [address] Javy Moscoso DO [address] [place] [address] 03/08/2024 8:00 AM EDT Laboratory Laboratory Patient Service [place], [place] [address] [place] [address] [place], Lab [place] [address] [place] [address] 03/15/2024 11:00 AM EDT Office Visit Hematology/Oncolog y [facility] [place] 200 [facility] [phone] Katt Mullen CRNP 400 [facility] [place] [address] 04/27/2024 9:30 AM EDT Hospital Encounter ENDO [facility], Endoscopy Room [facility] [address] [place] [phone] Dominick Amador MD [address] [place] [address] 04/27/2024 9:30 AM EDT - 04/27/2024 10:15 AM EDT Surgery ENDO [facility], Endoscopy Room [facility] [address] [place] [phone] Dominick Amador MD [address] [place] [address] COLONOSCOPY FLEXIBLE PROXIMAL DIAGNOSTIC 07/24/2024 2:00 PM EST Office Visit Nephrology, [place] [address] [facility] [address] [place] [address] Augusto Lerner MD [address] [facility] [place] Sharma [address] 10/03/2024 11:00 AM EST Nurse Only Ancillary [address], [place] [address] [place] [address] [place], Nurse Annual Wellness Visit [address] [place] M[place] [address] Scheduled Procedures Name Priority Associated Diagnoses Date/Ti [...] COPD 03/28/2024 03/28/2023 CKD PHOS USE SMARTSET 02466 05/05/2024 090 02/2023, 02/02/2023, 01/11/2022, Additional history exists HbA1c 06/15/2024 12/15/2023, 08/29, 08/04/2023, Additional history exists Diabetic Foot Exam 06/16/2024 06/16/2023, 06/16/2023 Diabetic Eye Exam 08/24/2024 08/24/2023, , 11/02/2022, Additional history exists CKD HGB USE SMARTSET 69918 09/08/202409/08, 09/08/2023, 08/04/2023, Additional history exists Albumin/Creatinine [...] the patient have Health Care Power of National Sales? No Care Teams Fruit Thinner Machine Operator Relationship Specialty Start Date End Date Javy Moscoso DO [address] [place]cc[place] [phone] PCP - General Family Medicine 07/04/23 documented as of this encounter
--- OUTSIDE RECORDS SUMMARY | 2024-02-25 03:32 | External Medical Summary | Summary of Care ---
Author Name Unknown Organization [facility] Address [address] [place] [address] Phone [phone] Care Team Providers Care Instrument Checker Name Role Phone Javy Moscoso DO Primary Care Provider [phone] Encounter Details Date Type Department Care Team (Late st Contact Info) Description 12/26/2023 Orders Only Outcomes Research Department [address] [place] [address] Meseret Garcia CHRA [employer] Other*[id number] Allergies Active Allergy Reactions Criticality Noted Date Comments Lisinopril Unknown Low 11/15/2022 Verapamil Medium 06/26/2020 Heart Block documented as of this encounter (statuses as of 12/26/2023) Medications Medication Sig Dispensed Refills Start Date [...] 09/08/2023 Active Vitamin D (Ergocalciferol) 1.25 MG (86788 UT) Oral Capsule (Drisdol)Indications :Vitamin D deficiency Take 1 Capsule by mouth Every Month. 6 Capsule 0 09/08/2023 03/06/2024 Active JinnTouch Ultra 2 w/Device Kit USE DIRECTED TO [...] morning. 90 Capsule 2 10/04/2023 Active Pen [place] 31G X 5 MMIndications:Type 2 diabetes mellitus [...] 10 days. E11.9 0 Active Dexcom G7 Technology Trainer Device Use as directed. Use as directed [...] as of this encounter (statuses as of 12/26/2023) Active Problems Problem Noted Date Diagnosed Date [...] 12/07/2022 Bilateral impacted cerumen 10/22/2022 Atherosclerosis of [place] co ronary artery without angina pectoris 07/15/2022 [...] as of this encounter (statuses as of 12/26/2023) Resolved Problems Problem Noted Date Diagnosed Date [...] Overview: Per CKD protocol Symptomatic bradycardia 02/14/2019 06/10/2018 Hyperkalemia 02/14/2019 02/18/2019 ARNOLDO (acute kidney injury) 02/14/2019 Acute respiratory failure with hypercapnia 02/14/2019 02/18/2019 Respiratory acidosis 02/14/2019 019 Lactic acidosis 02/14/2019 02/18/2019 documented as of this encounter (statuses as of 12/26/2023) Immunizations Name Administration Dates Next Due COVID-19 mRNA, LNP-s, No Pre serve, 2-Dose Series ([employer]) 07/03/2021,12/27/2020,12/06/2020 COVID-19, MRNA-LNP, 23-24, P F, 30 MCG/0.3 mL, 12 YRS AND ABOVE, IM ([employer]) 06/16/2023 Pneumococcal Conjugate Vacci ne, 20-valent ([email or web address]) 12/07/2022 Pneumococcal Polysaccharide PPV23 (Pneumovax) 09/08/2020 Season [...] Description 01/17/2024 9:00 AM EDT Office Visit [facility] [address] [place] [address] [place] Pharmacist [address] [place] [address] 01/25/2024 8:00 AM EDT PulmDiagnostic Pulmonary Function Lab, [facility] 132 [facility] [place] [address] [place], Pft 132 [facility] [place] [address] 02/16/2024 10:00 AM EDT Office Visit Sleep Disorders Ctr [facility] 132 [facility] [place] [phone] Debby Cornejo, DO 132 [facility] [place] [address] 03/02/2024 8:00 AM EDT Laboratory Laboratory [facility] [phone] [place], Lab Lock [address] [place] [address] 03/07/2024 9:00 AM EDT Office Visit [place] [address] [place] [address] [place] Mccarthy [phone] Javy Moscoso DO [address] [place] [address] 03/08/2024 8:00 AM EDT Laboratory Laboratory Patient Service [place], [address] [phone] Brendon Shankar [address] [place] [address] [place] [address] 03/15/2024 11:00 AM EDT Office Visit Hematology/Oncolog y [facility] [place] 200 [facility] [place]arma [phone] Katt Mullen CRNP 400 [facility] [place] [address] 04/27/2024 9:30 AM EDT Hospital Encounter [facility]O [facility], Endoscopy Room [facility] [address] [place] [phone] Dominick Amador MD [address] [place] [address] 04/27/2024 9:30 AM EDT - 04/27/2024 10:15 AM EDT Surgery [facility], Endoscopy Room [facility] [place] [phone] Dominick Amador MD [address] [place] [address] COLONOSCOPY FLEXIBLE PROXIMAL DIAGNOSTIC 07/24/2024 2:00 PM EST Office Visit Nephrology, [facility] 200 [facility] [place] [address] Augusto Lerner MD 200 [facility] [place] [address] 10/03/2024 11:00 AM EST Nurse Only Ancillary [address], [place] [address] [place] Mccarthy [phone] [place], Nurse Annual Wellness Visit [address] [place] [address] Scheduled Orders Name Type Priority Associated Diagnoses Orde r Schedule MYCODE SUBSEQUENT ADULT Lab Routine [employer] Research Other*[id number] Every 6 Months for 2 Occurrences starting 12/26/2023 until 01/14/2025 Scheduled Procedures Name Priority Associated Diagnoses Date/Ti [...] COPD 03/28/2024 03/28/2023 CKD PHOS USE SMARTSET 36477 05/05/2024 090 02/2023, 02/02/2023, 01/11/2022, Additional history exists HbA1c 06/15/2024 12/15/2023, 08/29, 08/04/2023, Additional history exists Diabetic Foot Exam 06/16/2024 06/16/2023, 06/16/2023 Diabetic Eye Exam 08/24/2024 08/24/2023, , 11/02/2022, Additional history exists CKD HGB USE SMARTSET 23272 09/08/202409/08, 09/08/2023, 08/04/2023, Additional history exists Albumin/Creatinine [...] as of this encounter Visit Diagnoses Diagnosis [employer] Other*[id number] Iron deficiency anemia Iron deficiency anemia, unspecified AVM (arteriovenous malformation) Congenital anomaly of the peripheral vascular system, unspecified site History of colonic polyps Personal history of colonic polyps documented in this encounter Advance Directives Latest Code Status on File Code Status Date Activated Date Inactivated Comments Full Code 02/15/2019 9:23 PM 02/18/2019 2:08 PM This order reflects the patients wishes and were consensually agreed upon. Question Answer Comments Discussion of Advance Directives occurred with: Patient Does the patient have a Living Will? No Does the patient have Health Care Power of Cost Specialist? No Care Teams Instrument Checker Relationship Specialty Start Date End Date Javy Moscoso DO [address] [place] [address] PCP - General Family Medicine 07/04/23 documented as of this encounter
--- OUTSIDE RECORDS SUMMARY | 2024-02-25 03:32 | External Medical Summary | Summary of Care ---
Author Name Unknown Organization [facility] Address [address] [place] [address] Phone [phone] Care Team Providers Care Honey Blender Name Role Phone Javy Moscoso DO Primary Care Provider + [phone] Reason for Visit * Reason Onset Date Comments Blood Glucose Monitoring 12/22/2023 Encounter Details Date Type Department Care Team (Late st Contact Info) Description 12/22/2023 Telephone Family Practice 65 [facility], [place] [address] [place] Mccarthy [address] Hans Kaba, [facility] [address] [place] [address] Blood Glucose Monitoring Allergies Active Allergy Reactions Criticality Noted Date Comments Lisinopril Unknown Low 11/15/2022 Verapamil Medium 06/26/2020 Heart Block documented as of this encounter (statuses as of 12/22/2023) Medications Medication Sig Dispensed Refills Start Date [...] 09/08/2023 Active Vitamin D (Ergocalciferol) 1.25 MG (58758 UT) Oral Capsule (Drisdol)Indication s:Vitamin D deficiency Take 1 Capsule by mouth Every Month. 6 Capsule 0 09/08/2023 4 Active [employer]ists Ultra 2 w/Device Kit USE DIRECTED TO [...] morning. 90 Capsule 2 10/04/2023 Active Pen Pierce 31G X 5 MMIndications:Type 2 diabetes mellitus [...] 10 days. E11.9 0 Active Dexcom G7 Client Application Support Specialist Device Use as directed. Use as directed [...] MORNING 90 Tablet 3 12/14/2023 5 Active Insulin Glargine Solostar 100 UNIT/ML Subcutaneous Solution Pen-injector (Lantus SoloStar)Indication s:Type 2 diabetes mellitus with hyperglycemia, with long-term current use of insulin ([facility]) Inject 30 Units under the skin at bedtime. 15 mL 3 12/22/2023 Active OneTouch Ultra In Vitro Strip (Glucose Blood)Indications:T ype 2 diabetes mellitus with hyperglycemia, with long-term current use of insulin (HCC) USE DIRECTED UP TO FOUR TIMES DAILY FOR HOME GLUCOSE TESTING 400 Strip 3 12/22/2023 Active OneTouch Ultra In Vitro Strip (Glucose Blood) USE DIRECTED UP TO THREE TIMES DAILY FOR HOME GLUCOSE TESTING 300 Strip 3 09/08/2023 4 Discontinue d(Refill) Insulin Glargine Solostar 100 UNIT/ML Subcutaneous Solution Pen-injector (Lantus SoloStar)Indication s:Type 2 diabetes mellitus with hyperglycemia, with long-term current use of insulin ([facility]) Inject 20 Units under the skin at bedtime. 15 mL 3 11/10/2023 4 Discontinue d(Medicatio n/Dose Changed) Insulin Glargine Solostar 100 UNIT/ML Subcutaneous Solution Pen-injector (Lantus SoloStar)Indication s:Type 2 diabetes mellitus with hyperglycemia, with long-term current use of insulin (HCC) Inject 26 Units under the skin at bedtime. 15 mL 1 12/16/2023 4 Discontinue d(Refill) Hospital, Clinic, or Other Facility Administered Medication Ordered Dose Route Frequency Start Date End Date Status Albuterol Sulfate (Proventil) (2.5 MG/3ML) 0.083% inhalation solution 2.5 mgIndications:ILD (interstitial lung disease) (HCC),ALAS (dyspnea on exertion) 2.5 mg NEBULIZER Q4H PRN 12/12/2023 Act jose documented as of this encounter (statuses as of 12/22/2023) Active Problems Problem Noted Date Diagnosed Date [...] (interstitial lung disease) 04/27/2023 Centrilobular emphysema 04/27/2023 ALAS (dyspnea on exertion) 03/11/2023 Risk and functional assessment 03/08/2023 Iron deficiency anemia due to chronic blood loss 12/17/2022 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: Advised repeat colonoscopy November 2023 PSVT (paroxysmal supraventricular tachycardia) 0 12/07/2022 Bilateral impacted cerumen 10/22/2022 Atherosclerosis of [place] co ronary artery without angina pectoris 07/15/2022 [...] as of this encounter (statuses as of 12/22/2023) Resolved Problems Problem Noted Date Diagnosed Date [...] as of this encounter (statuses as of 12/22/2023) Immunizations Name Administration Dates Next Due COVID-19 mRNA, LNP-s, No Pre serve, 2-Dose Series (LyricFind) 07/03/2021,12/27/2020,12/06/2020 COVID-19, MRNA-LNP, 23-24, P F, 30 MCG/0.3 mL, 12 YRS AND ABOVE, IM (PFIZER-Comirnaty) 06/16/2023 Pneumococcal Conjugate Vacci ne, 20-valent ([id number]) 12/07/2022 Pneumococcal Polysaccharide PPV23 (Pneumovax) 09/08/2020 Season [...] Miscellaneous Notes * Telephone Encounter - Hans Kaba, [facility] - 12/22/2023 5:30 PM EDT Patient Phone Numbers Spoke to patient's . BG remain elevated. Reports lowest reading in 180s in the morning and trend up over the day. Current Lantus dose 26 units. Instructed to increase Lantus to 30 units at bedtime. Reports faulty Dexom sensor, so replaced early and alas not have anymore, currently testing via finger sticks. Recommend testing fasting BG up 4 times a day until next sensor shipment is received. New orders on record. Hans Kaba PharmD Clinical Pharmacist [facility] 12/22/2023 5:33 PM documented in this encounter Plan of Treatment Upcoming Encounters Date Type Department Care Team (Late st Contact Info) Description 01/17/2024 9:00 AM EDT Office Visit [facility] 65 [facility] [place] [address] [place] Mcc[place] [address] [place] Pharmacist [address] [place] Mccarthy [address] 01/25/2024 8:00 AM EDT PulmDiagnostic Pulmonary Function Lab, [facility] 132 [facility] [place] ROMERO [address] [place], Pft 132 [facility] [place] [address] 02/16/2024 10:00 AM EDT Office Visit Sleep Disorders Ctr [facility] 132 [facility] [place] Romero [phone] Debby Cornejo DO 132 [facility] [place] Romero [address] 03/02/2024 8:00 AM EDT Laboratory [facility], [address] [phone] [place], Lab Lock [address] [place] [address] 03/07/2024 9:00 AM EDT Office Visit [facility] 65 [facility] [address] [place] [address] Javy Moscoso DO [address] [place] Mccarthy [address] 03/08/2024 8:00 AM EDT Laboratory Laboratory Patient Service [place], [address] [phone] Hodamaría elena Lab Lock [address] [place] [address] 03/15/2024 11:00 AM EDT Office Visit Hematology/Oncolog y State [facility] [address] [place] Sharma [phone] Katt Mullen CRNP 400 [facility] [place] [address] 04/27/2024 9:30 AM EDT Hospital Encounter ENDO OSSC, Endoscopy Room [facility] [address] [place] [phone] Dominick Amador MD [address] [place] [address] 04/27/2024 9:30 AM EDT - 04/27/2024 10:15 AM EDT Surgery ENDO OSSC, Endoscopy Room [facility] [address] [place] [phone] Dominick Amador MD [address] [place] [address] COLONOSCOPY FLEXIBLE PROXIMAL DIAGNOSTIC 07/24/2024 2:00 PM EST Office Visit Nephrology, [facility] 200 [facility] [place] Sharma [address] Augusto Lerenr MD 200 [facility] [place] Sh[place] [address] 10/03/2024 11:00 AM EST Nurse Only Ancillary [address], [place] [address] [place] Mccarthy [address] [place], Nurse Annual Wellness Visit [address] [place] Mccarthy [phone] Scheduled Procedures Name Priority Associated Diagnoses Date/Ti me COLONOSCOPY FLEXIBLE PROXIMA L DIAGNOSTIC Recall Iron deficiency anemia AVM (arteriovenous malformation) History of colonic polyps 04/27/2024 9:30 AM EDT ESOPHAGOGASTRODUODENOSCOPY ( EGD), FLEXIBLE, TRANSORAL, DIAGNOSTIC Recall Iron deficiency anemia AVM (arteriovenous malformation) History of colonic polyps 04/27/2024 9:30 AM EDT Health Maintenance Due Date Last Done Comments COLONOSCOPY-ANNUAL AGES 18-100 12/11/2023 12/10/2022, 12/10/2022, 12/15/2020, Additional history exists GFR 03/08/2024 09/08/2023, 02/2023, 05/05/2023, Additional history exists O2 ASSESSMENT COMPLETED IN PAST YEAR FOR COPD 03/28/2024 03/28/2023 CKD PHOS USE SMARTSET 58919 05/05/202402/2023, 02/02/2023, 01/11/2022, Additional history exists HbA1c 06/15/2024 12/15/2023, 08/29, 08/04/2023, Additional history exists Diabetic Foot Exam 06/16/2024 06/16/2023, 06/16/2023 Diabetic Eye Exam 08/24/2024 08/24/2023, , 11/02/2022, Additional history exists CKD HGB USE SMARTSET 64269 09/08/202409/08, 09/08/2023, 08/04/2023, Additional history exists Albumin/Creatinine Ratio 09/09/2024 09/09/2023, 11/2021 Depression Screening 12/21/2024 12/22/2023 DTaP,Tdap,and Td Vaccines (2 - Td or Tdap) 03/17/2031 03/17/2021 AAA Screening Completed 06/20/2020, 01/28, 01/12/2019 Alpha-1 Antitrypsin Completed 03/15/2022 Fecal Occult Blood Test Discontinued 11/18/19, 11/17/2022, 03/16/2022, Additional history exists Pneumococcal Vaccine: 65+ Years Completed 12/07/2022, 09/08/2020 Colonoscopy Discontinued 12/10/2022, 11/27, 12/15/2020, Additional history exists Colorectal Cancer Screening Discontinued COVID-19 Vaccine Completed 06/16/2023, 12/2020, 12/27/2020, Additional history exists Influenza Vaccine (FLU shot) Completed 06/16/2023, 05/06/2022, 06/13/2021, Additional history exists Cologuard Discontinued GARDASIL-HPV IMMUNIZATION SERIES Aged Out No longer eligible based on patient's age to complete this topic Hepatitis B Aged Out No longer eligi ble based on patient's age to complete this topic MENINGOCOCCAL (MENACTRA/MENVEO) Aged Out No longer eligible based on patient's age to complete this topic Sigmoidoscopy Discontinued documented as of this encounter Medical Devices Not on filedocumented as of this encounter Visit Diagnoses Diagnosis Type 2 diabetes mellitus with stage 3b chronic kidney disease, with long-term current use of insulin (HCC)- Primary Type 2 diabetes mellitus with hyperglycemia, with long-term current use of insulin (HCC) Iron deficiency anemia Iron deficiency anemia, unspecified [...] the patient have Health Care Power of Branch Service Associate? No Care Teams Honey Blender Relationship Specialty Start Date End Date Javy Moscoso DO [address] [place] Mccarthy [phone] PCP - General Family Medicine 07/04/23 documented as of this encounter
--- OUTSIDE RECORDS SUMMARY | 2024-02-25 03:32 | External Medical Summary | Summary of Care ---
Author Name Unknown Organization [facility] Address [address] [place] [address] Phone [phone] Care Team Providers Care Construction Supervisor Name Role Phone Javy Moscoso DO Primary Care Provider [phone] Reason for Visit * Reason Onset Date Comments Blood Glucose Monitoring 01/03/2024 Encounter Details Date Type Department Care Team (Late st Contact Info) Description 01/03/2024 Telephone Family Practice 65 [facility], [place] [address] [place] Mccarthy [address] Hans Kaba, [facility] [address] [place] Mccarthy [address] Blood Glucose Monitoring Allergies Active Allergy Reactions Criticality Noted Date Comments Lisinopril Unknown Low 11/15/2022 Verapamil Medium 06/26/2020 Heart Block documented as of this encounter (statuses as of 01/03/2024) Medications Medication Sig Dispensed Refills Start Date [...] 08/05/2023 Active Vitamin D (Ergocalciferol) 1.25 MG (96651 UT) Oral Capsule (Drisdol)Indications :Vitamin D deficiency Take 1 Capsule by mouth Every Month. 6 Capsule 0 09/08/2023 03/06/2024 Active [employer] Ultra 2 w/Device Kit USE DIRECTED TO [...] morning. 90 Capsule 2 10/04/2023 Active Pen [place] 31G X 5 MMIndications:Type 2 diabetes mellitus [...] 10 days. E11.9 0 Active Dexcom G7 Accounts Payable Representative Device Use as directed. Use as directed [...] hyperglycemia, with long-term current use of insulin ([facility]) Inject 30 Units under the [...] Muscle spasms. 90 Tablet 1 01/02/2024 Active Hospital, Clinic, or Other Facility Administered Medication Ordered Dose Route Frequency Start Date End Date Status Albuterol Sulfate (Proventil) (2.5 MG/3ML) 0.083% inhalation solution 2.5 mgIndications:ILD (interstitial lung disease) ([facility]),BEARDEN (dyspnea on exertion) 2.5 mg NEBULIZER Q4H PRN 12/12/2023 Act jose documented as of this encounter (statuses as of 01/03/2024) Active Problems Problem Noted Date Diagnosed Date [...] 12/07/2022 Bilateral impacted cerumen 10/22/2022 Atherosclerosis of [place] co ronary artery without angina pectoris 07/15/2022 [...] as of this encounter (statuses as of 01/03/2024) Resolved Problems Problem Noted Date Diagnosed Date [...] as of this encounter (statuses as of 01/03/2024) Immunizations Name Administration Dates Next Due COVID-19 mRNA, LNP-s, No Pre serve, 2-Dose Series (BioRelix) 07/03/2021,12/27/2020,12/06/2020 COVID-19, MRNA-LNP, 23-24, P F, 30 MCG/0.3 mL, 12 YRS AND ABOVE, IM (PFIZER-Comirnaty) 06/16/2023 Pneumococcal Conjugate Vacci ne, 20-valent ([id number]) 12/07/2022 Pneumococcal Polysaccharide PPV23 (Pneumovax) 09/08/2020 Season [...] Notes * Telephone Encounter - Hans Kaba RP - 01/03/2024 4:25 PM EDT Patient Phone Numbers Phone call to patient to follow-up on BG readings since Lantus increase. No answer. Left voice message and call back number for return call. Hans Kaba, [place] Clinical Pharmacist [facility] 01/03/2024 4:26 PM documented in this encounter Plan of Treatment Upcoming Encounters Date Type Department Care Team (Late st Contact Info) Description 01/17/2024 9:00 AM EDT Office Visit Family Practice [address], [place] [address] [place] Mcc[place] [address] [place] Pharmacist [address] [place] Mccarthy [address] 01/25/2024 7:30 AM EDT PulmDiagnostic Pulmonary Function Lab, [facility] [address] [place] [address] [place], [address] [place] [address] 02/16/2024 10:00 AM EDT Office Visit Sleep Disorders Ctr [facility] [address] [place] [phone] Debby Cornejo, DO [address] [place] [address] 03/02/2024 8:00 AM EDT Laboratory Laboratory Patient Service [place], [place] [address] [place] [address] [place], Lab Lock [address] [place] [address] 03/07/2024 9:00 AM EDT Office Visit [facility] 65 [facility], [place] 10 [place] Mccarthy [address] Javy Moscoso DO 10 [place] Mccarthy [address] 03/08/2024 8:00 AM EDT Laboratory Laboratory Patient Service [place], [place] [address] [place] [phone] [place], Lab Lock [address] [place] [address] 03/15/2024 11:00 AM EDT Office Visit Hematology/Oncolog y [facility] [place] [facility] [phone] Katt Mullen CRNP 400 [facility] [place] MOISE [address] 04/27/2024 9:30 AM EDT Hospital Encounter ENDO OSSC, Endoscopy Room [facility] [address] [place] [phone] Dominick Amador MD [address] [place] [address] 04/27/2024 9:30 AM EDT - 04/27/2024 10:15 AM EDT Surgery ENDO OSSC, Endoscopy Room [facility] [address] [place] [phone] Dominick Amador MD [address] [place] [address] COLONOSCOPY FLEXIBLE PROXIMAL DIAGNOSTIC 07/24/2024 2:00 PM EST Office Visit Nephrology, [facility] 200 [facility] [place] [address] Augusto Lerner MD 200 [facility] [place] Sharma [address] 10/03/2024 11:00 AM EST Nurse Only Ancillary 65 [facility], [place] [address] [place] Mccarthy [address] [place], Nurse Annual Wellness Visit [address] [place] Mccarthy [phone] Scheduled Procedures Name Priority Associated Diagnoses Date/Ti [...] COPD 03/28/2024 03/28/2023 CKD PHOS USE SMARTSET 04929 05/05/2024 090 02/2023, 02/02/2023, 01/11/2022, Additional history exists HbA1c 06/15/2024 12/15/2023, 08/29, 08/04/2023, Additional history exists Diabetic Foot Exam 06/16/2024 06/16/2023, 06/16/2023 Diabetic Eye Exam 08/24/2024 08/24/2023, , 11/02/2022, Additional history exists CKD HGB USE SMARTSET 60893 09/08/202409/08, 09/08/2023, 08/04/2023, Additional history exists Albumin/Creatinine [...] the patient have Health Care Power of [employer] Sprayer? No Care Teams Construction Supervisor Relationship Specialty Start Date End Date Javy Moscoso DO 10 [place] Mccarthy [address] PCP - General Family Medicine 07/04/23 documented as of this encounter
--- OUTSIDE RECORDS SUMMARY | 2024-02-25 03:32 | External Medical Summary | Summary of Care ---
Author Name Unknown Organization [facility] Address [address] [place] [address] Phone [phone] Care Team Providers Care Semi Truck Driver Name Role Phone Javy Moscoso DO Primary Care Provider + [phone] Reason for Visit * Reason Onset Date Comments Blood Glucose Monitoring 12/22/2023 Encounter Details Date Type Department Care Team (Late st Contact Info) Description 12/22/2023 Telephone Family Practice 65 [facility], [place] [address] [place] Mccarthy [address] Hans Kaba, [facility] [address] [place] Mccarthy [address] Blood Glucose Monitoring Allergies [...] 09/08/2023 Active Vitamin D (Ergocalciferol) 1.25 MG (40047 UT) Oral Capsule (Drisdol)Indication s:Vitamin D deficiency Take 1 Capsule by mouth Every Month. 6 Capsule 0 09/08/2023 4 Active [email or web address] Ultra 2 w/Device Kit USE DIRECTED TO [...] morning. 90 Capsule 2 10/04/2023 Active Pen [place] 31G X 5 MMIndications:Type 2 diabetes mellitus [...] 10 days. E11.9 0 Active Dexcom G7 Handhole Machine Operator Device Use as directed. Use as [...] with long-term current use of insulin ([facility]) Inject 30 Units under the skin at [...] with long-term current use of insulin ([facility]) Inject 20 Units under the skin at [...] 12/07/2022 Bilateral impacted cerumen 10/22/2022 Atherosclerosis of [place] co ronary artery without angina pectoris [...] mRNA, LNP-s, No Pre serve, 2-Dose Series (docBeat) 07/03/2021,12/27/2020,12/06/2020 COVID-19, MRNA-LNP, 23-24, P F, 30 MCG/0.3 mL, 12 YRS AND ABOVE, IM (PFIZER-Comirnaty) 06/16/2023 Pneumococcal Conjugate Vacci ne, 20-valent ([email or web address]) 12/07/2022 Pneumococcal Polysaccharide PPV23 (Pneumovax) 09/08/2020 Season [...] Telephone Encounter - Javy Moscoso DO - 12/22/2023 6:46 PM EDT Noted * Telephone Encounter - Hans Kaba, [facility] - 12/22/2023 5:30 PM EDT Patient Phone [...] Description 01/17/2024 9:00 AM EDT [address] [address] [place] [phone] [place] Pharmacist [facility] [address] [place] Mcc[place] [address] 01/25/2024 8:00 AM EDT PulmDiagnostic Pulmonary Function Lab, [facility] [place] [address] [place], Pft 132 [facility] [place] Harris [address] 02/16/2024 10:00 AM EDT Office Visit Sleep Disorders Ctr [facility] 132 [facility] [place] [phone] Debby Cornejo, DO 132 [facility] [place] [address] 03/02/2024 8:00 AM EDT Laboratory Laboratory [facility], [address] [phone] [place], Lab Lock [address] [place] [address] 03/07/2024 9:00 AM EDT Office [address] [place] [address] Javy Moscoso DO [address] [place] Mcc[place] [address] 03/08/2024 8:00 AM EDT Laboratory Laboratory Patient Service [place], [address] [phone] [place], Lab Lock [address] [place], [place] [address], [place] [address] 03/15/2024 11:00 AM EDT Office Visit Hematology/Oncolog y [facility] [employer] [address] [place] [phone] Katt Mullen CRNP [address] [place] [address] [place] MO[place] [address] 04/27/2024 9:30 AM EDT Hospital Encounter ENDO [facility], Endoscopy Room [facility] [address] [place] [phone] Dominick Amador MD [address] [place] [address] 04/27/2024 9:30 AM EDT - 04/27/2024 10:15 AM EDT Surgery ENDO OSS, Endoscopy Room [facility] [address] [place] [phone] Dominick Amador MD [address] [place] [address] COLONOSCOPY FLEXIBLE PROXIMAL DIAGNOSTIC 07/24/2024 2:00 PM EST Office Visit Nephrology, [facility] [address] [place] [place] [address] Augusto Lerner MD [address] [address] 10/03/2024 11:00 AM EST Nurse Only Ancillary [address], [place] [address] [place] Mcc[place] [address] [place], Nurse Annual Wellness Visit [address] [place] Mcc[place] [address] Scheduled Procedures Name Priority Associated Diagnoses Date/Ti [...] COPD 03/28/2024 03/28/2023 CKD PHOS USE SMARTSET 10506 05/05/202402/2023, 02/02/2023, 01/11/2022, Additional history exists HbA1c 06/15/2024 12/15/2023, 08/29, 08/04/2023, Additional history exists Diabetic Foot Exam 06/16/2024 06/16/2023, 06/16/2023 Diabetic Eye Exam 08/24/2024 08/24/2023, , 11/02/2022, Additional history exists CKD HGB USE SMARTSET 96333 09/08/202409/08, 09/08/2023, 08/04/2023, Additional history exists Albumin/Creatinine [...] the patient have Health Care Power of Dandy Tender? No Care Teams Semi Truck Driver Relationship Specialty Start Date End Date Javy Moscoso DO [address] [place] Mcc[place] [address] PCP - General Family Medicine 07/04/23 documented as of this encounter
--- OUTSIDE RECORDS SUMMARY | 2024-02-25 03:32 | External Medical Summary | Summary of Care ---
Author Name Unknown Organization [facility] Address [address] [facility] [place] [address] Phone [phone] Care Team Providers Care Utility Worker Forge Name Role Phone Javy Moscoso DO Primary Care Provider [phone] Reason for Visit * Reason Comments Medication Refill Encounter Details Date Type Department Care Team (Late st Contact Info) Description 2024 Refill Family Practice 65 [facility] [address] [place] [address] Javy Moscoso DO [address] [place] [address] Vitamin D deficiency Allergies Active Allergy Reactions Criticality Noted Date Comments Lisinopril Unknown Low 11/15/2022 Verapamil Medium 06/26/2020 Heart Block documented as of this encounter (statuses as of 2024) Medications Medication Sig Dispensed Refills Start Date [...] the morning. 100 Tablet 3 08/05/2023 Active Riptide IO 2 w/Device Kit USE DIRECTED TO TEST [...] morning. 90 Capsule 2 10/04/2023 Active Pen [place] 31G X 5 MMIndications:Type 2 diabetes mellitus [...] 10 days. E11.9 0 Active Dexcom G7 Credit Card Specialist Device Use as directed. Use as [...] 01/02/2024 Active Vitamin D (Ergocalciferol) 1.25 MG (55752 UT) Oral Capsule (Drisdol)Indication s:Vitamin D deficiency Take 1 Capsule by mouth Every Month. 6 Capsule 0 2024 4 Active Vitamin D (Ergocalciferol) 1.25 MG (97170 UT) Oral Capsule (Drisdol)Indication s:Vitamin D deficiency Take 1 Capsule by mouth Every Month. 6 Capsule 0 09/08/2023 4 Discontinue d(Refill) Hospital, Clinic, or Other Facility Administered Medication Ordered Dose Route Frequency Start Date End Date Status Albuterol Sulfate (Proventil) (2.5 MG/3ML) 0.083% inhalation solution 2.5 mgIndications:ILD (interstitial lung disease) (HCC),BEARDEN (dyspnea on exertion) 2.5 mg NEBULIZER Q4H PRN 12/12/2023 Act jose documented as of this encounter (statuses as of 2024) Active Problems Problem Noted Date Diagnosed Date [...] 12/07/2022 Bilateral impacted cerumen 10/22/2022 Atherosclerosis of [place] ronary artery without angina pectoris 07/15/2022 [...] as of this encounter (statuses as of 2024) Resolved Problems Problem Noted Date Diagnosed Date [...] as of this encounter (statuses as of 2024) Immunizations Name Administration Dates Next Due COVID-19 mRNA, LNP-s, No Pre serve, 2-Dose Series (Pfizer) 07/03/2021,12/27/2020,12/06/2020 COVID-19, MRNA-LNP, 23-24, P F, 30 MCG/0.3 mL, 12 YRS AND ABOVE, IM (PFIZER-Comirnaty) 06/16/2023 Pneumococcal Conjugate Vacci ne, 20-valent ([id number]) 12/07/2022 Pneumococcal Polysaccharide PPV23 (Pneumovax) 09/08/2020 Season [...] Telephone Encounter - Javy Moscoso DO - 2024 11:07 AM EDTSigned Prescriptions: Disp Refills Vitamin D (Ergocalciferol) 1.25 MG (36041 *6 Caps*0 Sig: Take 1 Capsule by mouth Every Month. Authorizing Provider: JAVY MOSCOSO * Telephone Encounter - Sandra De Jesus LPN - 2024 8:00 AM EDT Pending Prescriptions: Disp Refills Vitamin D (Ergocalciferol) 1.25 MG (74870 *6 Caps*0 Sig: Take 1 Capsule by mouth Every Month. * Telephone Encounter - Sandra De Jesus LPN - 2024 7:58 AM EDT Did you pend patient's preferred pharmacy and medication before forwarding?yes Pharmacy: [facility] Pending Prescriptions: Disp Refills Vitamin D (Ergocalciferol) 1.25 MG (78238*6 Caps*0 Sig: Take 1 Capsule by mouth Every Month. Last Visit: 12/06/2023 (in office), Visit date not found (telemedicine) Next Visit: 01/17/2024 If no future appointments scheduled, and last appointment is greater than a year ago, please schedule patient for a follow-up appointment Last date the medication was ordered: 09/08/2023 Is this request for a controlled substance?No Urine Drug Screen:No results found for this or any previous visit. Patient Phone Numbers Labs: Lab Results Component Value Date/Time CREAT 1.6 (H) 09/08/2023 10:02 AM CREAT 1.4 (H) 09/08/2020 03:23 PM POTASSIUM 4.6 09/08/2023 10:02 AM POTASSIUM 4.2 09/08/2020 03:23 PM TSH 1.36 08/20/2019 09:22 AM LDLCALC 59 12/15/2023 07:50 AM LDLCALC 86 08/20/2019 09:22 AM LDLDIRECT 62 03/21/2023 08:03 AM ALT 30 09/08/2023 10:02 AM ALT 32 08/20/2019 09:22 AM HGBA1C 8.3 (H) 12/15/2023 07:50 AM HGBA1C 6.9 (H) 09/08/2020 03:23 PM documented in this encounter Plan of Treatment Upcoming Encounters Date Type Department Care Team (Late st Contact Info) Description 01/17/2024 9:00 AM EDT Office Visit [address] [place] [address] [place] [address] [place] Pharmacist [address] [place] [address] 01/25/2024 7:30 AM EDT PulmDiagnostic Pulmonary Function Lab, [facility] [address] [place] [address] [address], [address] [place] [address] 02/16/2024 10:00 AM EDT Office Visit Sleep Disorders Ctr [facility] [address] [place] [phone] Debby Cornejo, DO 132 [facility] [place] [address] 03/02/2024 8:00 AM EDT Laboratory [facility], [place] 68 [facility] [place] [phone] [place], Lab Lock [address] [place] [address] 03/07/2024 9:00 AM EDT Office Visit Family Practice 65 [facility], [place] [address] [place] [address] Javy Moscoso DO [address] [place] [address] 03/08/2024 8:00 AM EDT Laboratory Laboratory [facility], [place] 68 [facility] [place] [address] Havemaría elena, Lab [address] [place] [address] 03/15/2024 11:00 AM EDT Office Visit Hematology/Oncolog y Екатерина [facility]ila [place] [address] [place] [phone] Katt Mullen, [place] [address] [place] [address] [place] [address] 04/27/2024 9:30 AM EDT Hospital Encounter ENDO [facility], Endoscopy Room [facility] [address] [place] [address] Dominick Amador MD [address] [place] [address] 04/27/2024 9:30 AM EDT - 04/27/2024 10:15 AM EDT Surgery ENDO [facility], Endoscopy Room [facility] [address] [place] [phone] Dominick Amador MD [address] [place] [address] COLONOSCOPY FLEXIBLE PROXIMAL DIAGNOSTIC 07/24/2024 2:00 PM EST Office Visit Nephrology, [facility] 200 [facility] [place] [address] Augusto Lerner MD [address] [place] [address] 10/03/2024 11:00 AM EST Nurse Only Ancillary 65 [facility], [place] [address] [place] [address] [place], Nurse Annual Wellness Visit [address] [place] [phone] Scheduled Procedures Name Priority Associated Diagnoses Date/Ti [...] COPD 03/28/2024 03/28/2023 CKD PHOS USE SMARTSET 52343 05/05/2024 0902/2023, 02/02/2023, 01/11/2022, Additional history exists HbA1c 06/15/2024 12/15/2023, 08/29, 08/04/2023, Additional history exists Diabetic Foot Exam 06/16/2024 06/16/2023, 06/16/2023 Diabetic Eye Exam 08/24/2024 08/24/2023, , 11/02/2022, Additional history exists CKD HGB USE SMARTSET 41246 09/08/202409/08, 09/08/2023, 08/04/2023, Additional history exists Albumin/Creatinine [...] as of this encounter Visit Diagnoses Diagnosis Vitamin D deficiency Unspecified vitamin D deficiency Iron deficiency anemia Iron deficiency anemia, unspecified [...] the patient have Health Care Power of Supervisor Advertising Dispatch Clerks? No Care Teams Utility Worker Forge Relationship Specialty Start Date End Date Javy Moscoso DO [address] [place] [address] PCP - General Family Medicine 07/04/23 documented as of this encounter
--- OUTSIDE RECORDS SUMMARY | 2024-02-25 03:33 | External Medical Summary | Summary of Care ---
Author Name Unknown Organization [facility] Address [address] [place] [address] Phone [phone] Care Team Providers Care C Architect Name Role Phone Javy Moscoso DO Primary Care Provider + [phone] Reason for Visit * Reason Onset Date Comments Blood Glucose Monitoring 12/15/2023 Encounter Details Date Type Department Care Team (Late st Contact Info) Description 12/15/2023 Telephone Family Practice 65 [facility], [place] [address] [place] [address] Hans Kaba, [facility] [address] [place] [address] Blood Glucose Monitoring Allergies Active Allergy Reactions Criticality Noted Date Comments Lisinopril Unknown Low 11/15/2022 Verapamil Medium 06/26/2020 Heart Block documented as of this encounter (statuses as of 12/16/2023) Medications Medication Sig Dispensed Refills Start Date [...] 09/08/2023 Active Vitamin D (Ergocalciferol) 1.25 MG (28400 UT) Oral Capsule (Drisdol)Indication s:Vitamin D deficiency Take 1 Capsule by mouth Every Month. 6 Capsule 0 09/08/2023 4 Active OneTouch Ultra In Vitro Strip (Glucose Blood) USE DIRECTED UP TO THREE TIMES DAILY FOR HOME GLUCOSE TESTING 300 Strip 3 09/08/2023 Active OneTouch Ultra 2 w/Device Kit USE DIRECTED TO [...] morning. 90 Capsule 2 10/04/2023 Active Pen [place] 31G X 5 MMIndications:Type 2 diabetes mellitus [...] 10 days. E11.9 0 Active Dexcom G7 Steam Crane Operator Device Use as directed. Use as [...] use of insulin ([facility]) Inject 26 Units under the skin at bedtime. 15 mL 1 12/16/2023 Active Insulin Glargine Solostar 100 UNIT/ML Subcutaneous Solution Pen-injector (Lantus SoloStar)Indication s:Type 2 diabetes mellitus with hyperglycemia, with long-term current use of insulin (HCC) Inject 26 Units under the skin at bedtime. 24 mL 1 12/13/2023 4 Discontinue d(Refill) Hospital, Clinic, or Other Facility Administered Medication Ordered Dose Route Frequency Start Date End Date Status Albuterol Sulfate (Proventil) (2.5 MG/3ML) 0.083% inhalation solution 2.5 mgIndications:ILD (interstitial lung disease) (HCC),BEARDEN (dyspnea on exertion) 2.5 mg NEBULIZER Q4H PRN 12/12/2023 Act jose documented as of this encounter (statuses as of 12/16/2023) Active Problems Problem Noted Date Diagnosed Date Type 2 diabetes mellitus wit h hemoglobin A1c goal of less than 7.5% 12/06/2023 AVM (arteriovenous malformation) of small bowel, acquired 12/06/2023 Chronic maxillary sinusitis 12/06/2023 Grade I diastolic dysfunction 12/06/2023 Type 2 diabetes mellitus wit h diabetic peripheral angiopathy without gangrene 09/08/2023 Thrombocytopenia 09/08/2023 Carcinoid tumor of rectum [...] 12/07/2022 Bilateral impacted cerumen 10/22/2022 Atherosclerosis of [place] co ronary artery without angina pectoris 07/15/2022 Primary osteoarthritis of left knee 07/15/2022 Vitamin D insufficiency 07/15/2022 Numbness 05/21/2022 Overview: Transient left arm and leg numbness 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 3b chronic kidney disease 05/19/2022 Type 2 diabetes mellitus wit h stage 3b chronic kidney disease, without long-term current use of insulin 03/08/2022 Overview: [...] as of this encounter (statuses as of 12/16/2023) Resolved Problems Problem Noted Date Diagnosed Date [...] as of this encounter (statuses as of 12/16/2023) Immunizations Name Administration Dates Next Due COVID-19 mRNA, LNP-s, No Pre serve, 2-Dose Series (Pfizer) 07/03/2021,12/27/2020,12/06/2020 COVID-19, MRNA-LNP, 23-24, P F, 30 MCG/0.3 mL, 12 YRS AND ABOVE, IM (PFIZER-Comirnaty) 06/16/2023 Pneumococcal Conjugate Vacci ne, 20-valent ([id number]) 12/07/2022 Pneumococcal Polysaccharide PPV23 (Pneumovax) 09/08/2020 Season [...] Date Recorded PHQ Adult Total Score 0 09/28/2023 Hunger Vital Sign Answer Date Recorded Within the past 12 months, y ou worried that your food would run out before you got the money to buy more. Never true 09/28/19 24 Within the past 12 months, t he food you bought just didn't last and you didn't have money to get more. Never true 09/28/2023 Sex and Gender Information Value Date Recorded [...] as of this encounter Miscellaneous Notes * Addendum Note - Hans Kaba RPh - 12/16/2023 3:17 PM EDTAddended by: HANS KABA on: 12/16/2023 03:17 PM Modules accepted: Orders * Telephone Encounter - Hans Kaba RPh - 12/16/2023 3:04 PM EDT Patient Phone Numbers Spoke to . Lantus order sent to [facility] pharmacy. Patient will pickup if mail order shipment does not arrive prior to running out of medication. Hans Kaba PharmD Clinical Pharmacist [facility] 12/16/2023 3:16 PM * Telephone Encounter - Abbi Mcnair PHARM Tech - 12/16/2023 2:04 PM EDT Patients called back in stating that they did not receive the medication today and they would like a supply sent to [facility] [place]. Please call when complete [phone] Thank you, Abbi Mcnair Property Economist [facility] ([facility]) 12/16/2023,2:05 PM * Telephone Encounter - Hans Kaba RPh - 12/15/2023 4:03 PM EDT Patient Phone Numbers Spoke to . Reports this morning finger stick blood glucose 89, and Dexcom reading about 30 points higher. Instructed to review Dexcom manual when patient returns with engineering technician and follow calibration instructions. Reports patient is low on insulin, refill processed through mail order. If not received by tomorrow mid-day will notify clinic for 1 month supply to be sent to local pharmacy. Hans Kaba PharmD Clinical Pharmacist [facility] 12/15/2023 4:13 PM documented in this encounter Plan of Treatment Upcoming Encounters Date Type Department Care Team (Late st Contact Info) Description 01/17/2024 9:00 AM EDT Office Visit Family Practice [address], [place] [address] [place] [address] [place] Pharmacist [address] [place] [address] 01/25/2024 8:00 AM EDT PulmDiagnostic Pulmonary Function Lab, [facility] [address] [place] [address] [address], [address] [place] [address] 02/16/2024 10:00 AM EDT Office Visit Sleep Disorders Ctr [facility] 132 [place] [phone] Debby Cornejo, [address] [place] [address] 03/02/2024 8:00 AM EDT Laboratory Laboratory [facility], [place] [address] [place] [phone] [place], Lab [address] [place] [address] 03/07/2024 9:00 AM EDT Office Visit [facility] [address], [place] [address] [place] [address] Javy Moscoso DO [address] [address] 03/08/2024 8:00 AM EDT Laboratory Laboratory Patient Service [place], [place] [address] [place] [phone] [place], Lab Lock [address] [place] [address] 03/15/2024 11:00 AM EDT Office Visit Hematology/Oncolog y [facility] [place] [facility] [address] Katt Mullen CRNP 400 [facility] [place] [address] 04/27/2024 9:30 AM EDT Hospital Encounter ENDO [facility], Endoscopy Room [facility] [address] [place] [phone] Dominick Amador MD [address] [place] [address] 04/27/2024 9:30 AM EDT - 04/27/2024 10:15 AM EDT Surgery ENDO [facility], Endoscopy Room [facility] [address] [place] [phone] Dominick Amador MD [address] [place] [address] COLONOSCOPY FLEXIBLE PROXIMAL DIAGNOSTIC 07/24/2024 2:00 PM EST Office Visit Nephrology, Екатерина Avila [address] [facility] [address] [place] [address] Augusto Lerner MD 200 [facility] [place] [address] 10/03/2024 11:00 AM EST Nurse Only Ancillary [address], [place] [address] [address] [place], Nurse Annual Wellness Visit [address] [place] [address] Scheduled Procedures Name Priority Associated Diagnoses Date/Ti [...] COPD 03/28/2024 03/28/2023 CKD PHOS USE SMARTSET 37675 05/05/202402/2023, 02/02/2023, 01/11/2022, Additional history exists HbA1c 06/15/2024 12/15/2023, 08/29, 08/04/2023, Additional history exists Diabetic Foot Exam 06/16/2024 06/16/2023, 06/16/2023 Diabetic Eye Exam 08/24/2024 08/24/2023, , 11/02/2022, Additional history exists CKD HGB USE SMARTSET 15953 09/08/202409/08, 09/08/2023, 08/04/2023, Additional history exists Albumin/Creatinine Ratio 09/09/2024 09/09/2023, 11/0 11/2021 Depression Screening 09/28/2024 09/28/2023 DTaP,Tdap,and Td Vaccines (2 - Td or [...] the patient have Health Care Power of [place] Rafting Guide? No Care Teams C Architect Relationship Specialty Start Date End Date Javy Moscoso DO [address] [address] PCP - General Family Medicine 07/04/23 documented as of this encounter
--- OUTSIDE RECORDS SUMMARY | 2024-02-25 03:33 | External Medical Summary | Summary of Care ---
Author Name Unknown Organization [facility] Address [address] [place] [address] Phone [phone] Care Team Providers Care Panelboard Tank Pumper Name Role Phone Javy Moscoso DO Primary Care Provider + [phone] Encounter Details Date Type Department Care Team (Late st Contact Info) Description 12/19/2023 Population Health External Data Unspecified Department Allergies Active Allergy Reactions Criticality Noted Date Comments Lisinopril Unknown Low 11/15/2022 Verapamil Medium 06/26/2020 Heart Block documented as of this encounter (statuses as of 12/19/2023) Medications Medication Sig Dispensed Refills Start Date [...] 09/08/2023 Active Vitamin D (Ergocalciferol) 1.25 MG (86390 UT) Oral Capsule (Drisdol)Indications :Vitamin D deficiency Take 1 Capsule by mouth Every Month. 6 Capsule 0 09/08/2023 03/06/2024 Active KeepconTouch Ultra In Vitro Strip (Glucose Blood) USE DIRECTED UP TO THREE TIMES DAILY FOR HOME GLUCOSE TESTING 300 Strip 3 09/08/2023 Active Inneractiveuch Ultra 2 w/Device Kit USE DIRECTED TO [...] morning. 90 Capsule 2 10/04/2023 Active Pen [place] 31G X 5 MMIndications:Type 2 diabetes mellitus [...] 10 days. E11.9 0 Active Dexcom G7 Press Shop Supervisor Device Use as directed. Use as directed [...] hyperglycemia, with long-term current use of insulin ([facility]) Inject 26 Units under the skin at bedtime. 15 mL 1 12/16/2023 Active Hospital, Clinic, or Other Facility Administered Medication Ordered Dose Route Frequency Start Date End Date Status Albuterol Sulfate (Proventil) (2.5 MG/3ML) 0.083% inhalation solution 2.5 mgIndications:ILD (interstitial lung disease) ([facility]),BEARDEN (dyspnea on exertion) 2.5 mg NEBULIZER Q4H PRN 12/12/2023 Act jose documented as of this encounter (statuses as of 12/19/2023) Active Problems Problem Noted Date Diagnosed Date [...] 12/07/2022 Bilateral impacted cerumen 10/22/2022 Atherosclerosis of [place] co ronary artery without angina pectoris 07/15/2022 [...] as of this encounter (statuses as of 12/19/2023) Resolved Problems Problem Noted Date Diagnosed Date [...] as of this encounter (statuses as of 12/19/2023) Immunizations Name Administration Dates Next Due COVID-19 mRNA, LNP-s, No Pre serve, 2-Dose Series ([employer] 07/03/2021,12/27/2020,12/06/2020 COVID-19, MRNA-LNP, 23-24, P F, 30 MCG/0.3 mL, 12 YRS AND ABOVE, IM ([employer]-Comirnaty) 06/16/2023 Pneumococcal Conjugate Vacci ne, 20-valent ([id number]) 12/07/2022 Pneumococcal Polysaccharide PPV23 (Pneumovax) 09/08/2020 Season [...] AM EDT Office Visit [facility] 65 [place] [address] [place] [address] [place] Pharmacist [address] [place] [address] 01/25/2024 8:00 AM EDT PulmDiagnostic Pulmonary Function Lab, [facility] [address] [place] [address] [place], [address] [place] [address] 02/16/2024 10:00 AM EDT Office Visit Sleep Disorders Ctr [facility] [address] [place] [phone] Debby Cornejo, [address] [place] [address] 03/02/2024 8:00 AM EDT Laboratory Laboratory Patient Service Center, [address] [phone] [place], Lab [address] [place] [address] 03/07/2024 9:00 AM EDT Office Visit [facility] [place] [address] [place] [address] Javy Moscoso DO [address] [place] [address] 03/08/2024 8:00 AM EDT Laboratory Laboratory [facility] Service Center, [place] [address] [place] [address] [place], Lab [address] [place] [address] 03/15/2024 11:00 AM EDT Office [facility] [employer] [facility] [address] [place] [address] Katt Mullen CRNP [address] [place] [address] 04/27/2024 9:30 AM EDT Hospital Encounter ENDO [facility], Endoscopy Room [facility] [address] [place] [phone] Dominick Amador MD [address] [place] [address] 04/27/2024 9:30 AM EDT - 04/27/2024 10:15 AM EDT Surgery ENDO [facility], Endoscopy Room [facility] [address] [place] [phone] Dominick Amador MD [address] [place] [address] COLONOSCOPY FLEXIBLE PROXIMAL DIAGNOSTIC 07/24/2024 2:00 PM EST Office Visit Nephrology, [facility] 200 [facility] [place] [address] Augusto Lerner MD 200 [facility] [place] [address] 10/03/2024 11:00 AM EST Nurse Only Ancillary [address], [place] [address] [place] [address] [place], Nurse Annual Wellness Visit [address] [place] [address] Scheduled Procedures Name Priority [...] COPD 03/28/2024 03/28/2023 CKD PHOS USE SMARTSET 12991 05/05/202402/2023, 02/02/2023, 01/11/2022, Additional history exists HbA1c 06/15/2024 12/15/2023, 08/29, 08/04/2023, Additional history exists Diabetic Foot Exam 06/16/2024 06/16/2023, 06/16/2023 Diabetic Eye Exam 08/24/2024 08/24/2023, , 11/02/2022, Additional history exists CKD HGB USE SMARTSET 47374 09/08/202409/08, 09/08/2023, 08/04/2023, Additional history exists Albumin/Creatinine Ratio 09/09/2024 09/09/2023, 11/2021 Depression Screening 09/28/2024 09/28/2023 DTaP,Tdap,and Td [...] the patient have Health Care Power of Lead Generation Specialist? No Care Teams Panelboard Tank Pumper Relationship Specialty Start Date End Date Javy Moscoso DO [address] [place] [address] PCP - General Family Medicine 07/04/23 documented as of this encounter
--- OUTSIDE RECORDS SUMMARY | 2024-02-25 03:33 | External Medical Summary | Summary of Care ---
Author Name Unknown Organization [facility] Address [address] [facility] [place] [address] Phone [phone] Care Team Providers Care Economic Manager Name Role Phone Javy Moscoso DO Primary Care Provider + [phone] Reason for Visit * Reason Onset Date Comments Test Results 12/19/2023 Encounter Details Date Type Department Care Team (Late st Contact Info) Description 12/19/2023 Telephone Family Practice 65 [facility], [place] [address] [place] Mccarthy [phone] Javy Moscoso DO [address] [place] [address] Test Results Allergies Active [...] 09/08/2023 Active Vitamin D (Ergocalciferol) 1.25 MG (80753 UT) Oral Capsule (Drisdol)Indications :Vitamin D deficiency Take 1 Capsule by mouth Every Month. 6 Capsule 0 09/08/2023 03/06/2024 Active OneTouch Ultra In Vitro Strip (Glucose [...] morning. 90 Capsule 2 10/04/2023 Active Pen [place] 31G X 5 MMIndications:Type 2 diabetes mellitus with hyperglycemia, with long-term current use of insulin ([facility]) Use as directed. Use as directed with [...] 10 days. E11.9 0 Active Dexcom G7 Stone Sandblaster Device Use as directed. Use as directed [...] long-term current use of insulin ([facility]) Inject 26 Units under the skin at bedtime. 15 mL 1 12/16/2023 Active Hospital, Clinic, or Other Facility Administered Medication Ordered Dose Route Frequency Start Date End Date Status Albuterol Sulfate (Proventil) (2.5 MG/3ML) 0.083% inhalation solution 2.5 mgIndications:ILD (interstitial lung disease) ([facility]),BEARDEN (dyspnea on exertion) 2.5 mg NEBULIZER Q4H [...] 12/07/2022 Bilateral impacted cerumen 10/22/2022 Atherosclerosis of [place] co ronary artery without angina pectoris 07/15/2022 [...] mRNA, LNP-s, No Pre serve, 2-Dose Series ([employer]) 07/03/2021,12/27/2020,12/06/2020 COVID-19, MRNA-LNP, 23-24, P F, 30 MCG/0.3 mL, 12 YRS AND ABOVE, IM (PFIZER-Comirnaty) 06/16/2023 Pneumococcal Conjugate Vacci ne, 20-valent ([id number]) 12/07/2022 Pneumococcal Polysaccharide PPV23 (Pneumovax) 09/08/2020 Season [...] Encounter - Sandra De Jesus LPN - 12/19/2023 3:50 PM EDT Pt gave verbal consent to speak with , aware of test results and lab repeat in 3 months. Verbalized understanding. * Telephone Encounter - Javy Moscoso DO - 12/19/2023 3:11 PM EDT Lab studies shows hemoglobin A1c level 8.3 improved from previous study. LDL cholesterol level at goal. Remainder of lab studies unremarkable. Advise continue present medical therapy, reduced caloric intake diabetic diet and exercise. Advise repeat hemoglobin A1c level, BMP in 3 months documented in this encounter Plan of Treatment Upcoming Encounters Date Type Department Care Team (Late st Contact Info) Description 01/17/2024 9:00 AM EDT Office Visit Family Practice [facility] [place] [address] [place] [address] [place] Pharmacist [address] [place] [address] 01/25/2024 8:00 AM EDT PulmDiagnostic Pulmonary Function Lab, [facility] [address] [place] [address] [address], [address] [place] [address] 02/16/2024 10:00 AM EDT Office Visit Sleep Disorders Ctr [facility] [address] [place] [phone] Debby Cornejo DO [address] [place] [address] 03/02/2024 8:00 AM EDT Laboratory Laboratory Patient Service [place], [place] [address] [place] [address] [place], Lab [address] [place] [address] 03/07/2024 9:00 AM EDT Office Visit [address] [place] [address] Javy Moscoso DO [address] [place] [address] 03/08/2024 8:00 AM EDT Laboratory Laboratory Patient Service [place], [place] [address] [place] [phone] [place], Lab [address] [place] [address] 03/15/2024 11:00 AM EDT Office Visit Hematology/Oncolog y [facility] [address] [place] [phone] Katt Mullen CRNP [address] [facility] [place] [address] 04/27/2024 9:30 AM EDT Hospital Encounter ENDO [facility], Endoscopy Room [facility] [address] [place] [phone] Dominick Amador MD [address] [place] [address] 04/27/2024 9:30 AM EDT - 04/27/2024 10:15 AM EDT Surgery ENDO [facility], Endoscopy Room [facility] [address] [place] [phone] Dominick Amador MD [address] [place] [address] COLONOSCOPY FLEXIBLE PROXIMAL DIAGNOSTIC 07/24/2024 2:00 PM EST Office Visit Nephrology, [facility] 200 [facility] [place] [address] Augusto Lerner MD [address] [place] [address] 10/03/2024 11:00 AM EST Nurse Only Ancillary 65 [facility], [place] [address] [place] [address] [place], Nurse Annual Wellness Visit [address] [place] [address] Scheduled Orders Name Type Priority Associated Diagnoses Orde r Schedule HEMOGLOBIN A1C Lab Routine Type 2 diabetes mellitus with stage 3b chronic kidney disease, with long-term current use of insulin (HCC) Type 2 diabetes mellitus with diabetic peripheral angiopathy without gangrene, with long-term current use of insulin (HCC) Type 2 diabetes mellitus with hemoglobin A1c goal of less than 7.5% (HCC) Expected: 03/19/2024 (Approximate), Expires: 12/18/2024 BASIC METABOLIC PANEL Lab Routine Type 2 diabetes mellitus with stage 3b chronic kidney disease, with long-term current use of insulin (HCC) Expected: 03/19/2024 (Approximate), Expires: 12/18/2024 Scheduled Procedures Name Priority Associated Diagnoses Date/Ti [...] COPD 03/28/2024 03/28/2023 CKD PHOS USE SMARTSET 74942 05/05/20240 02/2023, 02/02/2023, 01/11/2022, Additional history exists HbA1c 06/15/2024 12/15/2023, 08/29, 08/04/2023, Additional history exists Diabetic Foot Exam 06/16/2024 06/16/2023, 06/16/2023 Diabetic Eye Exam 08/24/2024 08/24/2023, , 11/02/2022, Additional history exists CKD HGB USE SMARTSET 57061 09/08/202409/08, 09/08/2023, 08/04/2023, Additional history exists Albumin/Creatinine [...] (HCC)- Primary Type 2 diabetes mellitus with diabetic peripheral angiopathy without gangrene, with long-term current use of insulin (HCC) Type 2 diabetes mellitus with hemoglobin A1c goal of less than 7.5% (HCC) Iron deficiency anemia Iron deficiency anemia, [...] the patient have Health Care Power of Beauty School Instructor? No Care Teams Economic Manager Relationship Specialty Start Date End Date Javy Moscoso DO [address] [place] [address] PCP - General Family Medicine 07/04/23 documented as of this encounter
--- OUTSIDE RECORDS SUMMARY | 2024-02-25 03:33 | External Medical Summary | Summary of Care ---
Author Name Unknown Organization [facility] Address [address] [place] [address] Phone [phone] Care Team Providers Care Washer Hand Name Role Phone Javy Moscoso DO Primary Care Provider + [phone] Reason for Visit * Reason Onset Date Comments Blood Glucose Monitoring 12/15/2023 Encounter Details Date Type Department Care Team (Late st Contact Info) Description 12/15/2023 Telephone Family Practice 65 [facility], [place] [address] [place] [address] [place], [facility] [address] [place] [address] Blood Glucose Monitoring Allergies Active Allergy Reactions Criticality Noted Date Comments Lisinopril Unknown Low 11/15/2022 Verapamil Medium 06/26/2020 Heart Block documented as of this encounter (statuses as of 12/15/2023) Medications Medication Sig Dispensed Refills Start Date [...] 09/08/2023 Active Vitamin D (Ergocalciferol) 1.25 MG (18238 UT) Oral Capsule (Drisdol)Indications :Vitamin D deficiency Take 1 Capsule by mouth Every Month. 6 Capsule 0 09/08/2023 03/06/2024 Active Curate.UsTouch Ultra In Vitro Strip (Glucose Blood) USE DIRECTED UP TO THREE TIMES DAILY FOR HOME GLUCOSE TESTING 300 Strip 3 09/08/2023 Active Curate.UsTouch Ultra 2 w/Device Kit USE DIRECTED TO [...] morning. 90 Capsule 2 10/04/2023 Active Pen [place] 31G X 5 MMIndications:Type 2 diabetes mellitus with hyperglycemia, with long-term current use of insulin ([facility]) Use as directed. Use as directed with [...] 10 days. E11.9 0 Active Dexcom G7 [employer] Teacher Device Use as directed. Use as directed [...] use of insulin ([facility]) Inject 26 Units under the skin at bedtime. 24 mL 1 12/13/2023 Active Hospital, Clinic, or Other Facility Administered Medication Ordered Dose Route Frequency Start Date End Date Status Albuterol Sulfate (Proventil) (2.5 MG/3ML) 0.083% inhalation solution 2.5 mgIndications:ILD (interstitial lung disease) ([facility]),BEARDEN (dyspnea on exertion) 2.5 mg NEBULIZER Q4H PRN 12/12/2023 Act jose documented as of this encounter (statuses as of 12/15/2023) Active Problems Problem Noted Date Diagnosed Date [...] 12/07/2022 Bilateral impacted cerumen 10/22/2022 Atherosclerosis of [place] co ronary artery without angina pectoris 07/15/2022 [...] as of this encounter (statuses as of 12/15/2023) Resolved Problems Problem Noted Date Diagnosed Date [...] as of this encounter (statuses as of 12/15/2023) Immunizations Name Administration Dates Next Due COVID-19 mRNA, LNP-s, No Pre serve, 2-Dose Series (Joinnus) 07/03/2021,12/27/2020,12/06/2020 COVID-19, MRNA-LNP, 23-24, P F, 30 MCG/0.3 mL, 12 YRS AND ABOVE, IM ([facility]) 06/16/2023 Pneumococcal Conjugate Vacci ne, 20-valent ([email or web address]) 12/07/2022 Pneumococcal Polysaccharide PPV23 (Pneumovax) 09/08/2020 Season [...] money to buy more. Never true 09/28/19 Within the past 12 months, t he [...] review Dexcom manual when patient returns with president and cmo and follow calibration instructions. Reports patient is [...] AM EDT [facility] [address] [place] [address] [place] Pharmacist [address] [place] [address] 01/25/2024 8:00 AM EDT Pul[facility]ostic Pul[facility], [facility] [address] [place] [address] [address], [address] [place] [address] 02/16/2024 10:00 AM EDT Office Visit Sleep Disorders Ctr [facility] [address] [place] [phone] Debby Cornejo DO [address] [place] [address] 03/02/2024 8:00 AM EDT Laboratory Laboratory Patient Service [place], [place] [address] [place] [address] [place], Lab [address] [place] [address] 03/07/2024 9:00 AM EDT Office Visit [address], [place] [address] [place] [address] Javy Moscoso DO [address] [place] [address] 03/08/2024 8:00 AM EDT Laboratory Laboratory Patient Service [place], [place] [address] [place] [phone] [place], Lab [address] [place] [address] 03/15/2024 11:00 AM EDT Office Visit Hematology[facility]Oncolog [facility] [place] [facility] [phone] Katt Mullen CRNP [address] [place] [address] [place] [address] 04/27/2024 9:30 AM EDT Hospital Encounter ENDO [facility], Endoscopy Room [facility] [address] [place] [phone] Dominick Amador MD [address] [place] [address] 04/27/2024 9:30 AM EDT - 04/27/2024 10:15 AM EDT Surgery ENDO [facility], Endoscopy Room [facility] [address] [place] [phone] Dominick Amador MD [address] [place] [address] COLONOSCOPY FLEXIBLE PROXIMAL DIAGNOSTIC 07/24/2024 2:00 PM EST Office Visit Nephrology, [facility] [address] [facility] [address] [place] [address] Augusto Lerner MD 200 [facility] [place] [address] 10/03/2024 11:00 AM EST Nurse Only Ancillary [address], [place] [address] [place] [address] [place], Nurse Annual Wellness Visit [address] [place] [address] Scheduled Procedures Name Priority Associated Diagnoses Date/Ti [...] 03/08/2024 09/08/2023, 02/2023, 05/05/2023, Additional history exists HbA1c 03/08/2024 09/08/2023, 02/2023, 02/02/2023, Additional history exists O2 ASSESSMENT COMPLETED IN PAST YEAR FOR COPD 03/28/2024 03/28/2023 CKD PHOS USE SMARTSET 20910 05/05/202402/2023, 02/02/2023, 01/11/2022, Additional history exists Diabetic Foot Exam 06/16/2024 06/16/2023, 06/16/2023 Diabetic Eye Exam 08/24/2024 08/24/2023, , 11/02/2022, Additional history exists CKD HGB USE SMARTSET 74870 09/08/202409/08, 09/08/2023, 08/04/2023, Additional history exists Albumin/Creatinine [...] the patient have Health Care Power of Ammonia Distiller? No Care Teams Washer Hand Relationship Specialty Start Date End Date Javy Moscoso DO [address] [place] [address] PCP - General Family Medicine 07/04/23 documented as of this encounter
--- OUTSIDE RECORDS SUMMARY | 2024-02-25 03:33 | External Medical Summary | Summary of Care ---
Author Name Unknown Organization [facility] Address [address] [place] [address] Phone [phone] Care Team Providers Care Tow Motor Operator Name Role Phone Javy Moscoso DO Primary Care Provider + [phone] Reason for Visit * Reason Comments Outpatient Testing Encounter Details Date Type Department Care Team ([facility] st Contact Info) Description 12/15/2023 8:00 AM EDT Laboratory Laboratory Patient Service [address] [phone] [address] Night Up Other*[id number]; Type 2 diabetes mellitus with stage 3b chronic kidney disease, without long-term current use of insulin ([facility]); Type 2 diabetes mellitus with hemoglobin A1c goal of less than 7.5% ([facility]); Atherosclerosis of [place] coronary artery of [place] heart without angina pectoris; Dyslipidemia, goal LDL below 70; Encounter for long-term (current) use of medications Allergies Active Allergy Reactions Criticality Noted Date [...] 09/08/2023 Active Vitamin D (Ergocalciferol) 1.25 MG (67855 UT) Oral Capsule (Drisdol)Indications :Vitamin D deficiency Take 1 Capsule by mouth Every Month. 6 Capsule 0 09/08/2023 03/06/2024 Active DTVCastuch Ultra In Vitro Strip (Glucose Blood) USE DIRECTED UP TO THREE TIMES DAILY FOR HOME GLUCOSE TESTING 300 Strip 3 09/08/2023 Active PitchPoint SolutionsTouch Ultra 2 w/Device Kit USE DIRECTED TO [...] morning. 90 Capsule 2 10/04/2023 Active Pen [place] 31G X 5 MMIndications:Type 2 diabetes mellitus with hyperglycemia, with long-term current use of insulin ([facility]) Use as directed. Use as [...] 10 days. E11.9 0 Active Dexcom G7 Air Deodorizer Servicer Device Use as directed. Use as directed [...] insulin ([facility]) Inject 26 Units under [...] 12/07/2022 Bilateral impacted cerumen 10/22/2022 Atherosclerosis of [place] co ronary artery without angina pectoris 07/15/2022 [...] (PFIZER-Comirnaty) 06/16/2023 Pneumococcal Conjugate Vacci ne, 20-valent ([id number]) 12/07/2022 Pneumococcal Polysaccharide PPV23 (Pneumovax) 09/08/2020 Season [...] 9:00 AM EDT Office Visit Family Practice [address] [place] [address], [place] [address] [place] [address] [place], Pharmacist 65 [facility] [address] [place] [address] 01/25/2024 8:00 AM EDT PulmDiagnostic Pulmonary Function Lab, [facility] [address] [place] [address] [place], [address] [facility] [place] [address] 02/16/2024 10:00 AM EDT Office Visit Sleep Disorders Ctr [facility] 132 [facility] [place] [phone] Debby Cornejo, DO [address] [place] [address] 03/02/2024 8:00 AM EDT Laboratory Laboratory [facility], [address] [phone] Havemaría elena, Lab [address] [phone] 03/07/2024 9:00 AM EDT Office Visit Family Practice 65 [facility], [place] [address] [place] [address] Javy Moscoso DO [address] [place] [address] 03/08/2024 8:00 AM EDT Laboratory Laboratory Patient Service [address] [phone] [facility] Lock [address] [place] [address] 03/15/2024 11:00 AM EDT Office Visit Hematology/Oncolog y [facility] [place] [address] [place] [phone] Katt Mullen CRNP [address] [place] [address] [place] [address] 04/27/2024 9:30 AM EDT Hospital Encounter ENDO [facility], Endoscopy Room [facility] [address] [place] [phone] Dominick Amador MD [address] [place] [address] 04/27/2024 9:30 AM EDT - 04/27/2024 10:15 AM EDT Surgery ENDO [facility], Endoscopy Room [facility] [address] [place] [phone] Dominick Amador MD [address] [place] [address] COLONOSCOPY FLEXIBLE PROXIMAL DIAGNOSTIC 07/24/2024 2:00 PM EST Office Visit Nephrology, [facility] [place] [address] [place] [address] Augusto Lerner MD [address] [place] [address] 10/03/2024 11:00 AM EST Nurse Only Ancillary [address], [place] [address] [place] [address] [place], Nurse Annual Wellness Visit [address] [place] [address] Pending Results Name Type Priority Associated Diagnoses Date /Time MYCODE SUBSEQUENT ADULT Lab Routine MyCode Research Other*[id number] 12/15/2023 7:50 AM EDT HEMOGLOBIN A1C Lab Routine Type 2 diabetes mellitus with stage 3b chronic kidney disease, without long-term current use of insulin ([facility]) Type 2 diabetes mellitus with hemoglobin A1c goal of less than 7.5% ([facility]) 12/15/2023 7:50 AM EDT LIPID PANEL WITH DIRECT LDL IF TG IS HIGH Lab Routine Atherosclerosis of [place] coronary artery of [place] heart without angina pectoris Dyslipidemia, goal LDL below 70 12/15/2023 7:50 AM EDT MAGNESIUM Lab Routine Encounter for long-term (current) use of medications 12/15/2023 7:50 AM EDT MYCODE SST1 Lab Routine MyCode [employer] Other*[id number] 12/15/2023 7:50 AM EDT MYCODE SST2 Lab Routine MyCode Research Other*[id number] 12/15/2023 7:50 AM EDT Scheduled Procedures Name Priority Associated [...] COPD 03/28/2024 03/28/2023 CKD PHOS USE SMARTSET 16842 05/05/2024 09/0 02/2023, 02/02/2023, 01/11/2022, Additional history exists Diabetic Foot Exam 06/16/2024 06/16/2023, 06/16/2023 Diabetic Eye Exam 08/24/2024 08/24/2023, , 11/02/2022, Additional history exists CKD HGB USE SMARTSET 07124 09/08/202409/08, 09/08/2023, 08/04/2023, Additional history exists Albumin/Creatinine [...] this encounter Visit Diagnoses Diagnosis MyCode Research Other*[id number] Type 2 diabetes mellitus with stage 3b chronic kidney disease, without long-term current use of insulin (HCC) Type 2 diabetes mellitus with hemoglobin A1c goal of less than 7.5% (HCC) Atherosclerosis of [place] coronary artery of [place] heart without angina pectoris Dyslipidemia, goal LDL below 70 Other and unspecified hyperlipidemia Encounter for long-term (current) use of medications Encounter for long-term (current) use of other medications Iron deficiency anemia Iron deficiency anemia, unspecified [...] the patient have Health Care Power of Brush Hand? No Care Teams Tow Motor Operator Relationship Specialty Start Date End Date Javy Moscoso DO [address] [place] [address] PCP - General Family Medicine 07/04/23 documented as of this encounter
--- OUTSIDE RECORDS SUMMARY | 2024-02-25 03:33 | External Medical Summary ---
Author Name Unknown Address Unknown Organization K01:LABORATORY [facility] - [address] [place] [address] Laboratory Report Ordering Provider Test Date Status MEGAN BRICENO 12/15/2023 07:50:34 Final Observation Date Value Abnormality Reference (Units ) Status MYCODE SPECIMEN-SST 12/15/2023 07:50:34 Freezing of extracted DNA, whole blood and/or serum. Final Performing Location LABORATORY C - [address] [place] [address]
--- OUTSIDE RECORDS SUMMARY | 2024-02-25 03:33 | External Medical Summary ---
Author Name Unknown Address Unknown Organization K01:[facility] [place] [address] [facility] [address] Laboratory Report Ordering Provider Test Date Status ELAINE ADENEO 12/15/2023 07:50:34 Final Observation Date Value Abnormality Reference (Units ) Status Triglyceride 12/15/2023 07:50:34 103 <=174 ( mg/dL) Final Triglyceride Reference Range s (mg/dL):
<150 Acceptable
150-174 Borderline high
175-499 High
>=500 Very high Cholesterol 12/15/2023 07:50:34 123 <200 (mg /dL) Final Total Cholesterol Reference Ranges (mg/dL):
<200 Desirable
200-239 Borderline high
>=240 High HDL 12/15/2023 07:50:34 43 >39 (mg/dL ) Final HDL Cholesterol Reference Ra nges (mg/dL):
>=60 High (Desirable)
<50 Low (Undesirable) For Females
<40 Low (Undesirable) For Males NON-HDL CHOLESTEROL 12/15/2023 07:50:34 80 <=159 (mg/dL) Final Non-HDL Cholesterol Referenc e Range (mg/dL):
<100 Target level for high risk ASCVD patient
<130 Optimal for general population
130-159 Near optimal for general population
160-189 Borderline High
190-219 High
>=220 Very High LDL, (calculated) 12/15/2023 07:50:34 59 <= 129 (mg/dL) Final LDL Cholesterol Reference Ra nges (mg/dL):
<70 Target level for high risk ASCVD patient
<100 Optimal for general population
100-129 Near optimal for general population
130-159 Borderline high
160-189 High
>=190 Very high Performing Location [facility] [place] [address] [facility] [address]
--- OUTSIDE RECORDS SUMMARY | 2024-02-25 03:33 | External Medical Summary | Summary of Care ---
Author Name Unknown Organization [facility] Address [address] [place] [address] Phone [phone] Care Team Providers Care Family Intervention Specialist Name Role Phone Javy Moscoso DO Primary Care Provider + [phone] Reason for Visit * Reason Onset Date Comments Blood Glucose Monitoring 12/15/2023 Encounter Details Date Type Department Care Team (Late st Contact Info) Description 12/15/2023 Telephone Family Practice 65 [facility], [place] [address] [place] Mccarthy [address] Hans Kaba, [facility] [address] [place] M[place] [address] Blood Glucose Monitoring Allergies [...] 09/08/2023 Active Vitamin D (Ergocalciferol) 1.25 MG (01649 UT) Oral Capsule (Drisdol)Indications :Vitamin D deficiency Take 1 Capsule by mouth Every Month. 6 Capsule 0 09/08/2023 03/06/2024 Active SuperhumanTouch Ultra In Vitro Strip (Glucose Blood) USE DIRECTED UP TO THREE TIMES DAILY FOR HOME GLUCOSE TESTING 300 Strip 3 09/08/2023 Active SuperhumanTouch Ultra 2 w/Device Kit USE DIRECTED TO [...] morning. 90 Capsule 2 10/04/2023 Active Pen [place] 31G X 5 MMIndications:Type 2 diabetes mellitus with hyperglycemia, with long-term current use of insulin ([facility]) Use as directed. Use as directed with [...] 10 days. E11.9 0 Active Dexcom G7 Data Operations Manager Device Use as directed. Use as directed [...] with long-term current use of insulin ([facility]) Inject 26 Units under the skin at bedtime. 24 mL 1 12/13/2023 Active Hospital, Clinic, or Other Facility Administered Medication Ordered Dose Route Frequency Start Date End Date Status Albuterol Sulfate (Proventil) (2.5 MG/3ML) 0.083% inhalation solution 2.5 mgIndications:ILD (interstitial lung disease) ([facility]),BEARDEN (dyspnea on exertion) 2.5 mg NEBULIZER [...] mRNA, LNP-s, No Pre serve, 2-Dose Series (Aginova) 07/03/2021,12/27/2020,12/06/2020 COVID-19, MRNA-LNP, 23-24, P F, 30 MCG/0.3 mL, 12 YRS AND ABOVE, IM ([facility]) 06/16/2023 Pneumococcal Conjugate Vacci ne, 20-valent ([id number]) 12/07/2022 Pneumococcal Polysaccharide PPV23 (Pneumovax) 09/08/2020 Season [...] (15 years old or older) No 02/16/20 Cognitive Status Response Date of Assessm ent Because of a physical, menta l, or emotional condition, do you have serious difficulty concentrating, remembering, or making decisions? (5 years old or older) No 02/15/2019 documented as of this encounter Miscellaneous Notes * Telephone Encounter - Abbi Mcnair PHARM Tech - 12/16/2023 2:04 PM EDT Patients called back in stating that they did not receive the medication today and they would like a supply sent to [facility] in [place]. Please call when complete [phone] Thank you, Abbi Mcnair Financial Recruiter I Centralized Clinical Pharmacy Services (CCPS)(formerly Telepharmacy) 12/16/2023,2:05 PM * Telephone Encounter - Hans Kaba RPh - 12/15/2023 4:03 PM EDT Patient Phone Numbers Spoke to . Reports this morning finger stick blood glucose 89, and Dexcom reading about 30 points higher. Instructed to review Dexcom manual when patient returns with pressing machine tender and follow calibration instructions. Reports patient is [...] Visit Family Practice [address], [place] [address] [place] Mcc[place] [address] [place] Pharmacist [address] [place] M[place]arthy [address] 01/25/2024 8:00 AM EDT PulmDiagnostic Pulmonary Function Lab, [facility] 132 [facility] [place] ROMERO [address] [place], [address] 132 [facility] [place] [address] 02/16/2024 10:00 AM EDT Office Visit Sleep Disorders Ctr [facility] 132 [facility] [place] [phone] Debby Cornejo, DO 132 [facility] [place] [address] 03/02/2024 8:00 AM EDT Laboratory Laboratory [facility], [place] [address] [facility] [place] [place] [phone] [facility] [address] [place] [address] 03/07/2024 9:00 AM EDT Office Visit Family Practice [address] [place] [address], Nursery [address] [place] Mccarthy [phone] Javy Moscoso DO [address] [place] Mccarthy [address] 03/08/2024 8:00 AM EDT Laboratory Laboratory [facility], [place] [address] [facility] [place] [place] [phone] [place], Lab [address] [place] [address] 03/15/2024 11:00 AM EDT Office Visit Hematology/Oncolog y [place] [facility] [place] [address] [place] [phone] Katt Mullen CRNP [address] [place] [address] [place] MOISE [address] 04/27/2024 9:30 AM EDT Hospital Encounter ENDO [facility], Endoscopy Room [facility] [address] [place] [phone] Dominick Amador MD [address] [place] [address] 04/27/2024 9:30 AM EDT - 04/27/2024 10:15 AM EDT Surgery ENDO [facility], Endoscopy Room [facility] [address] [place] [phone] Dominick Amador MD [address] [place] [address] COLONOSCOPY FLEXIBLE PROXIMAL DIAGNOSTIC 07/24/2024 2:00 PM EST Office Visit Nephrology, [facility] 200 [facility] [place] [address] Augusto Lerner MD [address] [place] Sharma [address] 10/03/2024 11:00 AM EST Nurse Only Ancillary [address], Nursery [address] [place] Mccarthy [address] Nursery, Nurse Annual Wellness Visit [address] [place] Mccarthy [address] Scheduled Procedures Name Priority [...] 12/15/2020, Additional history exists GFR 03/08/2024 09/08/2023, 12/02/2023, 05/05/2023, Additional history exists O2 ASSESSMENT COMPLETED IN PAST YEAR FOR COPD 03/28/2024 03/28/2023 CKD PHOS USE SMARTSET 00083 05/05/20240 02/2023, 02/02/2023, 01/11/2022, Additional history exists HbA1c 06/15/2024 12/15/2023, 08/29, 08/04/2023, Additional history exists Diabetic Foot Exam 06/16/2024 06/16/2023, 06/16/2023 Diabetic Eye Exam 08/24/2024 08/24/2023, , 11/02/2022, Additional history exists CKD HGB USE SMARTSET 92977 09/08/202409/08, 09/08/2023, 08/04/2023, Additional history exists Albumin/Creatinine [...] the patient have Health Care Power of Heating And Cooling Systems Engineer? No Care Teams Family Intervention Specialist Relationship Specialty Start Date End Date Javy Moscoso DO [address] [place] Mccarthy [phone] PCP - General Family Medicine 07/04/23 documented as of this encounter
--- OUTSIDE RECORDS SUMMARY | 2024-02-25 03:34 | External Medical Summary | Summary of Care ---
Author Name Unknown Organization [facility] Address [address] [place] [address] Phone [phone] Care Team Providers Care Backing In Machine Tender Name Role Phone Javy Moscoso DO Primary Care Provider [phone] Reason for Visit * Reason Onset Date Comments Blood Glucose Monitoring 12/12/2023 Encounter Details Date Type Department Care Team (Late st Contact Info) Description 12/12/2023 Telephone Pharmacy, [place] [address] [place] [address] Hans Kaba, [facility] [address] [place] [address] Blood Glucose Monitoring Allergies Active Allergy Reactions Criticality Noted Date Comments Lisinopril Unknown Low 11/15/2022 Verapamil Medium 06/26/2020 Heart Block documented as of this encounter (statuses as of 12/13/2023) Medications Medication Sig Dispensed Refills Start Date [...] 6 hours as needed 0 03/09/2022 Active Pantoprazole Sodium 40 MG Oral Tablet Delayed Release (Protonix)Indication s:Gastroesophageal reflux disease without esophagitis TAKE ONE TABLET BY MOUTH EVERY MORNING 90 Tablet 3 2023 2024 Active Losartan Potassium 100 MG Oral Tablet [...] 09/08/2023 Active Vitamin D (Ergocalciferol) 1.25 MG (14872 UT) Oral Capsule (Drisdol)Indications :Vitamin D deficiency Take 1 Capsule by mouth Every Month. 6 Capsule 0 09/08/2023 03/06/2024 Active [place] GreenhousesTouch Ultra In Vitro Strip (Glucose Blood) USE [...] morning. 90 Capsule 2 10/04/2023 Active Pen [place] 31G X 5 MMIndications:Type 2 diabetes mellitus with hyperglycemia, with long-term current use of insulin ([facility]) Use as directed. Use as [...] the tongue in the morning. 0 Active Insulin Glargine Solostar 100 UNIT/ML Subcutaneous Solution Pen-injector (Lantus SoloStar)Indications :Type 2 diabetes mellitus with hyperglycemia, with long-term current use of insulin ([facility]) Inject 22 Units under the skin at bedtime. 15 mL 5 12/06/2023 Active Dexcom G7 Sensor Use as directed. Use as directed to monitor blood sugars daily. Replace sensor every 10 days. E11.9 0 Active Dexcom G7 Funeral Arranger Device Use as directed. Use as directed to monitor blood sugars daily 0 Active Fluticasone Propionate 50 MCG/ACT Nasal Suspension (Flonase)Indications :Chronic maxillary sinusitis Administer 2 Sprays into each nostril in the morning. 18.2 g 3 12/06/2023 Active Hospital, Clinic, or Other Facility Administered Medication Ordered Dose Route Frequency Start Date End Date Status Albuterol Sulfate (Proventil) (2.5 MG/3ML) 0.083% inhalation solution 2.5 mgIndications:ILD (interstitial lung disease) ([facility]),BEARDEN (dyspnea on exertion) 2.5 mg NEBULIZER Q4H PRN 12/12/2023 Act jose documented as of this encounter (statuses as of 12/13/2023) Active Problems Problem Noted Date Diagnosed Date [...] 12/07/2022 Bilateral impacted cerumen 10/22/2022 Atherosclerosis of [place] co ronary artery without angina pectoris 07/15/2022 [...] as of this encounter (statuses as of 12/13/2023) Resolved Problems Problem Noted Date Diagnosed Date [...] as of this encounter (statuses as of 12/13/2023) Immunizations Name Administration Dates Next Due COVID-19 mRNA, LNP-s, No Pre serve, 2-Dose Series ([facility]) 07/03/2021,12/27/2020,12/06/2020 COVID-19, MRNA-LNP, 23-24, P F, 30 MCG/0.3 mL, 12 YRS AND ABOVE, IM (PFIZER-Comirnaty) 06/16/2023 Pneumococcal Conjugate Vacci ne, 20-valent ([id number]) 12/07/2022 Pneumococcal Polysaccharide PPV23 (Pneumovax) 09/08/2020 Season [...] encounter Miscellaneous Notes * Telephone Encounter - Nyla Watson PHARM Tech - 12/13/2023 4:33 PM EDT Pt calling in to see if new Rx for the Lantus can be sent in to [facility] as pt only has about half a pen left and will need to refill at the increased 26 unit dose he has been using. Thank You, Nyla Watson, [facility] Director Transportation II Centralized Clinical Pharmacy Services (CCPS) (Formerly Telepharmacy) 12/13/2023, 4:33 PM * Telephone Encounter - Javy Moscoso DO - 12/12/2023 3:42 PM EDT noted * Telephone Encounter - Hans Kaba RPh - 12/12/2023 1:32 PM EDT Patient Phone Numbers [facility] [phone] Spoke to patient. Reports BG have remained above 200 since replacing Dexcom sensor Tuesday. Current Lantus dose 22 units. Increase Lantus to 26 units at bedtime. Will follow-up via phone in 3 days. Hans Kaba PharmD Clinical Pharmacist [facility] 12/12/2023 1:33 PM documented in this encounter Plan of Treatment Upcoming Encounters Date Type Department Care Team (Late st Contact Info) Description 12/15/2023 8:00 AM EDT Laboratory Laboratory Patient Service Center, [place] [address] [place] [phone] [place], Lab Lock [address] [place] [address] 01/17/2024 9:00 AM EDT Office Visit [address] [place] Mcc[place] [address] [place], Pharmacist [address] [place] [address] [address] [place] Mcc[place] [address] 01/25/2024 8:00 AM EDT PulmDiagnostic Pulmonary Function Lab, [facility] 132 [facility] [place] ROMERO [address] [place], Pft 132 [facility] [place] Romero [address] 02/16/2024 10:00 AM EDT Office Visit Sleep Disorders Ctr [facility] 132 [facility] [place] Rom[place] [phone] Debby Cornejo, 132 [facility] [place] Romero [address] 03/02/2024 8:00 AM EDT Laboratory Laboratory Patient Service Center, [address] [phone] [place], Lab Lock [address] [place] [address] 03/07/2024 9:00 AM EDT Office Visit [address] [place] [address] Javy Moscoso DO [address] [place] [address] 03/08/2024 8:00 AM EDT Laboratory Laboratory Patient Service [place], [address] [phone] [place]ía elena, Lab Lock [address] [facility] [place], [place] [address] 03/15/2024 11:00 AM EDT Office Visit Hematology/Oncolog y [place] [facility]elyn [place] 200 [facility] [place] Sharma [phone] Katt Mullen CRNP [facility] [address] 04/27/2024 9:30 AM EDT Hospital Encounter ENDO [facility], Endoscopy Room [facility] [address] [place] [phone] Dominick Amador MD [address] [place] [address] 04/27/2024 9:30 AM EDT - 04/27/2024 10:15 AM EDT Surgery ENDO [facility], Endoscopy Room [facility] [address] [place] [phone] Dominick Amador MD [address] [place] [address] COLONOSCOPY FLEXIBLE PROXIMAL DIAGNOSTIC 07/24/2024 2:00 PM EST Office Visit Nephrology, [facility] 200 [facility] [place] Sharma [address] Augusto Lerner MD 200 [facility] [place] Sharma [address] 10/03/2024 11:00 AM EST Nurse Only Ancillary [address], [place] [address] [place] M[place] [address] [place], Nurse Annual Wellness Visit [address] [place] Mccarthy [phone] Scheduled Procedures Name Priority Associated Diagnoses Date/Ti [...] COPD 03/28/2024 03/28/2023 CKD PHOS USE SMARTSET [address] 05/05/202402/2023, 02/02/2023, 01/11/2022, Additional history exists Diabetic Foot Exam 06/16/2024 06/16/2023, 06/16/2023 Diabetic Eye Exam 08/24/2024 08/24/2023, , 11/02/2022, Additional history exists CKD HGB USE SMARTSET 55832 09/08/202409/08, 09/08/2023, 08/04/2023, Additional history exists Albumin/Creatinine [...] the patient have Health Care Power of Instrument Panel Assembler? No Care Teams Backing In Machine Tender Relationship Specialty Start Date End Date Javy Moscoso DO [address] [place] Mccarthy [phone] PCP - General Family Medicine 07/04/23 documented as of this encounter
--- OUTSIDE RECORDS SUMMARY | 2024-02-25 03:34 | External Medical Summary | Summary of Care ---
Author Name Unknown Organization [facility] Address [address] [facility] [address] Phone [phone] Care Team Providers Care House Servant Name Role Phone Javy Moscoso DO Primary Care Provider [phone] Reason for Visit * Reason Onset Date Comments Medication Refill 12/13/2023 Encounter Details Date Type Department Care Team (Late st Contact Info) Description 12/13/2023 Refill Family Practice 65 [facility], [place] [address] [place] [address] Javy Moscoso DO [address] [place] [address] Type 2 diabetes mellitus with hyperglycemia, with long-term current use of insulin ([facility]) Allergies Active Allergy Reactions Criticality Noted Date [...] MOUTH EVERY MORNING 90 Tablet 3 2023 4 Active Losartan Potassium 100 MG Oral Tablet [...] 09/08/2023 Active Vitamin D (Ergocalciferol) 1.25 MG (36384 UT) Oral Capsule (Drisdol)Indication s:Vitamin D deficiency [...] morning. 90 Capsule 2 10/04/2023 Active Pen [place] 31G X 5 MMIndications:Type 2 diabetes mellitus [...] 10 days. E11.9 0 Active Dexcom G7 Skein Yarn Dyer Helper Device Use as directed. Use as directed to monitor blood sugars daily 0 Active Fluticasone Propionate 50 MCG/ACT Nasal Suspension (Flonase)Indication s:Chronic maxillary sinusitis Administer 2 Sprays into each nostril in the morning. 18.2 g 3 12/06/2023 Active Insulin Glargine Solostar 100 UNIT/ML Subcutaneous Solution Pen-injector (Lantus SoloStar)Indication s:Type 2 diabetes mellitus with hyperglycemia, with long-term current use of insulin ([facility]) Inject 26 Units under the skin at bedtime. 24 mL 1 12/13/2023 Active Insulin Glargine Solostar 100 UNIT/ML Subcutaneous Solution Pen-injector (Lantus SoloStar)Indication s:Type 2 diabetes mellitus with hyperglycemia, with long-term current use of insulin ([facility]) Inject 22 Units under the skin at bedtime. 15 mL 5 12/06/2023 4 Discontinue d(Refill) Insulin Glargine Solostar 100 UNIT/ML Subcutaneous Solution Pen-injector (Lantus SoloStar)Indication s:Type 2 diabetes mellitus with hyperglycemia, with long-term current use of insulin ([facility]) Inject 26 Units under the skin at bedtime. 30 mL 1 12/13/2023 Discontinue d(Refill) Hospital, Clinic, or Other Facility [...] 12/07/2022 Bilateral impacted cerumen 10/22/2022 Atherosclerosis of [place] co ronary artery without angina pectoris [...] (PFIZER-Comirnaty) 06/16/2023 Pneumococcal Conjugate Vacci ne, 20-valent ([id number]) 12/07/2022 Pneumococcal Polysaccharide PPV23 (Pneumovax) 09/08/2020 Season [...] - Nyla Watson PHARM Tech - 12/13/2023 4:51 PM EDT Reached out to Uyen at mail order to have Rx for lantus expedited to the pt. Uyen states all cold packaged meds automatically get expedited and should process tomorrow and then be sent overnight.Uyen states the 30 mL qty would not go through as was over 90 days and a new Rx needed to be sentin for a lesser amt as will not be able to process or change to a lower qty,. Reached out to Iván Watson assisted with changing the qty to a lower amt in order for them to process. Thank You, Nyla Watson, [facility] Delivery Clerk II Centralized Clinical Pharmacy Services (CCPS) (Formerly Telepharmacy) 12/13/2023, 4:53 PM * Addendum Note - Iván Gamboa [facility] - 12/13/2023 4:50 PM EDTAddended by: IVÁN GAMBOA on: 12/13/2023 04:50 PM Modules accepted: Orders * Telephone Encounter - Nadir Diaz RPh - 12/13/2023 4:38 PM EDT Pt called and insulin dose was increased by MTM to 26 units. Pt is almost out of insulin and requesting new rx to mail order. Per yesterday pharmacy TE: Current Lantus dose 22 units. Increase Lantus to 26 units at bedtime Rx sent with updated sig Signed Prescriptions: Disp Refills Insulin Glargine Solostar 100 UNIT/ML Subc*30 mL 1 Sig: Inject 26 Units under the skin at bedtime. Authorizing Provider: JAVY MOSCOSO Ordering User: NADIR DIAZ Jacquelyn Scavone, PharmD Clinical Pharmacist [facility]) [facility] [phone] 12/13/2023 4:42 PM * Telephone Encounter - Nyla Watson PHARM Tech - 12/13/2023 4:36 PM EDT Did you pend patient's preferred pharmacy and medication before forwarding?yes Pharmacy: [facility] Pending Prescriptions: Disp Refills Insulin Glargine Solostar 100 UNIT/ML Sub*15 mL 5 Sig: Inject 22 Units under the skin at bedtime. Last Visit: 12/06/2023 (in office), Visit date not found (telemedicine) Next Visit: 01/17/2024 If no future appointments scheduled, and last appointment is greater than a year ago, please schedule patient for a follow-up appointment Last date the medication was ordered: 12/06/23 Is this request for a controlled substance?No Urine Drug Screen:No results found for this or any previous visit. Patient Phone Numbers Daisy [phone] Labs: Lab Results Component Value Date/Time CREAT 1.6 (H) 09/08/2023 10:02 AM CREAT 1.4 (H) 09/08/2020 03:23 PM POTASSIUM 4.6 09/08/2023 10:02 AM POTASSIUM 4.2 09/08/2020 03:23 PM TSH 1.36 08/20/2019 09:22 AM LDLCALC 86 01/11/2022 12:07 PM LDLCALC 86 08/20/2019 09:22 AM LDLDIRECT 62 03/21/2023 08:03 AM ALT 30 09/08/2023 10:02 AM ALT 32 08/20/2019 09:22 AM HGBA1C 8.7 (H) 09/08/2023 10:02 AM HGBA1C 6.9 (H) 09/08/2020 03:23 PM documented in this encounter Plan of Treatment Upcoming Encounters Date Type Department Care Team (Late st Contact Info) Description 12/15/2023 8:00 AM EDT Laboratory Laboratory Patient Service Center, [address] [phone] [address] [address] 01/17/2024 9:00 AM EDT Office Visit [facility] [address] [place] [address] [place] Pharmacist [address] [place] [address] 01/25/2024 8:00 AM EDT PulmDiagnostic Pulmonary Function Lab, [facility] 132 [facility] [place] [address] [place], [address] 132 [facility] [place] [address] 02/16/2024 10:00 AM EDT Office Visit Sleep Disorders Ctr [facility] [address] [place] [phone] Debby Cornejo DO [address] [place] [address] 03/02/2024 8:00 AM EDT Laboratory Laboratory Patient Service [place], [place] [address] [place] [address] [place], Lab Lock [address] [place] [address] 03/07/2024 9:00 AM EDT Office Visit Family Practice [address] [place] [address], [place] [address] [place] [address] Javy Moscoso DO [address] [place] [address] 03/08/2024 8:00 AM EDT Laboratory Laboratory Patient Service [place], [place] [address] [place] [address] [place], Lab Lock [address] [place] [address] 03/15/2024 11:00 AM EDT Office Visit Hematology/Oncolog y [facility] [address] [place] [facility] [place] [phone] Katt Mullen CRNP [address] [place] [address] [place] MO[place] [address] 04/27/2024 9:30 AM EDT Hospital Encounter ENDO [facility], Endoscopy Room [facility] [address] [place] [phone] Dominick Amador MD 132 [place] [address] 04/27/2024 9:30 AM EDT - 04/27/2024 10:15 AM EDT Surgery ENDO [facility], Endoscopy Room [facility] [address] [place] [phone] Dominick Amador MD [address] [place] [address] COLONOSCOPY FLEXIBLE PROXIMAL DIAGNOSTIC 07/24/2024 2:00 PM EST Office Visit Nephrology, [facility] [address] [place] [address] Augusto Lerner MD [address] [place] [address] 10/03/2024 11:00 AM EST Nurse Only Ancillary [address], [place] [address] [place] [address] [place], Nurse Annual Wellness Visit [address] [place] [address] Scheduled Procedures Name Priority [...] COPD 03/28/2024 03/28/2023 CKD PHOS USE SMARTSET 72457 05/05/2024 0902/2023, 02/02/2023, 01/11/2022, Additional history exists Diabetic Foot Exam 06/16/2024 06/16/2023, 06/16/2023 Diabetic Eye Exam 08/24/2024 08/24/2023, , 11/02/2022, Additional history exists CKD HGB USE SMARTSET 96983 09/08/202409/08, 09/08/2023, 08/04/2023, Additional history exists Albumin/Creatinine [...] the patient have Health Care Power of Policy Issue Clerk? No Care Teams House Servant Relationship Specialty Start Date End Date Javy Moscoso DO [address] [place] Mccarthy [phone] PCP - General Family Medicine 07/04/23 documented as of this encounter
--- OUTSIDE RECORDS SUMMARY | 2024-02-25 03:34 | External Medical Summary ---
Author Name Unknown Address Unknown Organization K01:[facility] [place] [address] [facility] [address] Laboratory Report Ordering Provider Test Date Status [place]ON ADEN 12/15/2023 07:50:34 Final Observation Date Value Abnormality Reference (Units ) Status HbA1C 12/15/2023 07:50:34 8.3 Above high normal 4. 0-5.6 (%) Final The use of HbA1c to monitor glycemic status is based on normal hemoglobin and HbA composition. This test should not be used in patients with abnormal hemoglobin that affects the half life of the red blood cell or the in vivo glycation rates. Glucose, estimated average 12/15/2023 07:50:34 192 Above high normal <126 (mg/dL) Adan vences Performing Location [facility] [place] [address] [facility] [address]
--- OUTSIDE RECORDS SUMMARY | 2024-02-25 03:34 | External Medical Summary ---
Author Name Unknown Address Unknown Organization K01:[facility] [place] [address] [facility] [address] [facility] [address] Laboratory Report Ordering Provider Test Date Status MEGAN BRICENO 12/15/2023 07:50:34 Final Observation Date Value Abnormality Reference (Units ) Status MYCODE SPECIMEN-SST 12/15/2023 07:50:34 Freezing of extracted DNA, whole blood and/or serum. Final Performing Location LABORATORY C - [address] [place] [address]
--- OUTSIDE RECORDS SUMMARY | 2024-02-25 03:34 | External Medical Summary ---
Author Name Unknown Address Unknown Organization K01:[facility] [address] [place] [address] Laboratory Report Ordering Provider Test Date Status FABIEN MALDONADO 12/15/2023 07:50:34 Final Observation Date Value Abnormality Reference (Units ) Status Magnesium 12/15/2023 07:50:34 2.4 1.5-2.6 (m g/dL) Final Performing Location [facility] [address] [place] [address]
--- OUTSIDE RECORDS SUMMARY | 2024-02-25 03:34 | External Medical Summary | Summary of Care ---
Author Name Unknown Organization [facility] Address [address] [place] [facility] [place] [address] Phone [phone] Care Team Providers Care Chief Nursing Executive Name Role Phone Javy Moscoso DO Primary Care Provider [phone] Reason for Visit * Reason Onset Date Comments Test Results 12/14/2023 Encounter Details Date Type Department Care Team (Late st Contact Info) Description 12/14/2023 Telephone Family Practice 65 [facility], [place] [address] [place] Mccarthy [phone] Javy Moscoso DO [address] [place] Mccarthy [phone] Test Results Allergies Active Allergy Reactions Criticality Noted Date Comments Lisinopril Unknown Low 11/15/2022 Verapamil Medium 06/26/2020 Heart Block documented as of this encounter (statuses as of 12/14/2023) Medications Medication Sig Dispensed Refills Start Date [...] 09/08/2023 Active Vitamin D (Ergocalciferol) 1.25 MG (27592 UT) Oral Capsule (Drisdol)Indications :Vitamin D deficiency [...] morning. 90 Capsule 2 10/04/2023 Active Pen [place] 31G X 5 MMIndications:Type 2 diabetes mellitus with hyperglycemia, with long-term current use of insulin ([facility]) Use as directed. Use as directed with [...] 10 days. E11.9 0 Active Dexcom G7 Bicycle Rental Clerk Device Use as directed. Use as directed [...] hyperglycemia, with long-term current use of insulin ([facility]) Inject 26 Units under the skin at bedtime. 24 mL 1 12/13/2023 Active Hospital, Clinic, or Other Facility Administered Medication Ordered Dose Route Frequency Start Date End Date Status Albuterol Sulfate (Proventil) (2.5 MG/3ML) 0.083% inhalation solution 2.5 mgIndications:ILD (interstitial lung disease) ([facility]),BEARDEN (dyspnea on exertion) 2.5 mg NEBULIZER Q4H PRN 12/12/2023 Act jose documented as of this encounter (statuses as of 12/14/2023) Active Problems Problem Noted Date Diagnosed Date [...] 12/07/2022 Bilateral impacted cerumen 10/22/2022 Atherosclerosis of [place] co ronary artery without angina pectoris 07/15/2022 [...] as of this encounter (statuses as of 12/14/2023) Resolved Problems Problem Noted Date Diagnosed Date [...] as of this encounter (statuses as of 12/14/2023) Immunizations Name Administration Dates Next Due COVID-19 mRNA, LNP-s, No Pre serve, 2-Dose Series ([employer] (formerly [employer]AR[employer]life)) 07/03/2021,12/27/2020,12/06/2020 COVID-19, MRNA-LNP, 23-24, P F, 30 MCG/0.3 mL, 12 YRS AND ABOVE, IM ([employer]-Comirnat) 06/16/2023 Pneumococcal Conjugate Vacci ne, 20-valent ([id number]) 12/07/2022 Pneumococcal Polysaccharide PPV23 (Pneumovax) 09/08/2020 Season [...] Encounter - Sandra De Jesus LPN - 12/14/2023 3:08 PM EDT Pt aware and verbalized understanding. * Telephone Encounter - Javy Moscoso DO - 12/14/2023 12:49 PM EDT X-ray of left knee showed left knee replacement with no loosening of hardware. Advise continue present medical therapy documented in this encounter Plan of Treatment Upcoming Encounters Date Type Department Care Team (Late st Contact Info) Description 12/15/2023 8:00 AM EDT Laboratory Laboratory Patient Service [address] [address] [address] 01/17/2024 9:00 AM EDT Office Visit Family Practice [address], [place] [address] [place] Mccarthy [phone] [place], Pharmacist [address] [place] Mccarthy [address] 01/25/2024 8:00 AM EDT PulmDiagnostic Pulmonary Function Lab, [facility] [place] [address] [place], t [facility] [place] [address] 02/16/2024 10:00 AM EDT Office Visit Sleep Disorders Ctr [facility] [place] [address] [place] Thomas [phone] Debby Cornejo DO [address] [place] [address] 03/02/2024 8:00 AM EDT Laboratory Laboratory Patient Service Center, [place] [address] [place] [address] [place], Lab Lock [address] [place] [address] 03/07/2024 9:00 AM EDT Office Visit Family [address] [place] Mccarthy [address] Javy Moscoso DO [address] [place] Mccarthy [address] 03/08/2024 8:00 AM EDT Laboratory Laboratory Patient Service [place], [place] [address] [place] [address] [facility] Lab Lock [address] [place] [address] 03/15/2024 11:00 AM EDT Office Visit Hematology/Oncolog y [facility] [place] [address] [place] [address] Katt Mullen CRNP [address] [place] [address] [place] MOISE [address] 04/27/2024 9:30 AM EDT Hospital Encounter ENDO [facility], Endoscopy Room [facility] [address] [place] Thomas [phone] Dominick Amador MD [address] [place] [address] 04/27/2024 9:30 AM EDT - 04/27/2024 10:15 AM EDT Surgery ENDO [facility], Endoscopy Room [facility] [address] [place] [phone] Dominick Amador MD [address] [place] [address] COLONOSCOPY FLEXIBLE PROXIMAL DIAGNOSTIC 07/24/2024 2:00 PM EST Office Visit Nephrology, [facility] [address] [place] [address] Augusto Lerner MD [address] [place] Sharma [address] 10/03/2024 11:00 AM EST Nurse Only Ancillary 65 [facility], [place] [address] [place] Mccarthy [phone] [place], Nurse Annual Wellness Visit [address] [place] Mccarthy [phone] Scheduled Procedures Name Priority Associated Diagnoses Date/Ti [...] COPD 03/28/2024 03/28/2023 CKD PHOS USE SMARTSET 91013 05/05/202402/2023, 02/02/2023, 01/11/2022, Additional history exists Diabetic Foot Exam 06/16/2024 06/16/2023, 06/16/2023 Diabetic Eye Exam 08/24/2024 08/24/2023, , 11/02/2022, Additional history exists CKD HGB USE SMARTSET 89192 09/08/202409/08, 09/08/2023, 08/04/2023, Additional history exists Albumin/Creatinine Ratio 09/09/2024 09/09/2023, 110 11/2021 Depression Screening 09/28/2024 09/28/2023 DTaP,Tdap,and Td [...] the patient have Health Care Power of Sharepoint Application Developer? No Care Teams Chief Nursing Executive Relationship Specialty Start Date End Date Javy Moscoso DO [address] [place] Mccarthy [address] PCP - General Family Medicine 07/04/23 documented as of this encounter
--- OUTSIDE RECORDS SUMMARY | 2024-02-25 03:34 | External Medical Summary | Summary of Care ---
Author Name Unknown Organization [facility] Address [address] [facility] [address] Phone [phone] Care Team Providers Care Vocational Technical Education Teacher Name Role Phone Javy Moscoso DO Primary Care Provider [phone] Reason for Visit * Reason Onset Date Comments Medication Refill 12/13/2023 Encounter Details Date Type Department Care Team (Late st Contact Info) Description 12/13/2023 Refill Family Practice 65 [facility], [place] [address] [place] Mccarthy [address] Javy Moscoso DO [address] [place] Mccarthy [address] Type 2 diabetes mellitus with hyperglycemia, with long-term current use of insulin ([facility]) Allergies Active Allergy Reactions Criticality Noted Date [...] 09/08/2023 Active Vitamin D (Ergocalciferol) 1.25 MG (47391 UT) Oral Capsule (Drisdol)Indication s:Vitamin D deficiency [...] morning. 90 Capsule 2 10/04/2023 Active Pen [place] 31G X 5 MMIndications:Type 2 diabetes mellitus [...] 10 days. E11.9 0 Active Dexcom G7 Patient Insurance Clerk Device Use as directed. Use as [...] skin at bedtime. 30 mL 1 12/13/2023 Active Insulin Glargine Solostar 100 UNIT/ML Subcutaneous Solution Pen-injector (Lantus SoloStar)Indication s:Type 2 diabetes mellitus with hyperglycemia, with long-term current use of insulin ([facility]) Inject 22 Units under the skin at bedtime. 15 mL 5 12/06/2023 4 Discontinue d(Refill) Hospital, Clinic, or Other [...] 12/07/2022 Bilateral impacted cerumen 10/22/2022 Atherosclerosis of [place] co ronary artery without angina pectoris 07/15/2022 [...] (PFIZER-Comirnaty) 06/16/2023 Pneumococcal Conjugate Vacci ne, 20-valent ([id number]) 12/07/2022 Pneumococcal Polysaccharide PPV23 (Pneumovax) 09/08/2020 Season [...] encounter Miscellaneous Notes * Telephone Encounter - Nadir Diaz RPh [...] Pharmacist Central[facility] Pharm[facility] Services [facility]PS[facility] [phone] 12/13/2023 4:42 PM * Telephone Encounter - [...] 8:00 AM EDT Laboratory Laboratory [facility] Service Center[address] [address] [place], Lab Lock [address] [place] [address] 01/17/2024 9:00 AM EDT Office Visit Family Practice 65 [place] [address] [place] Mccarthy [phone] [place] Pharmacist [address] [place] Mccarthy [phone] 01/25/2024 8:00 AM EDT PulmDiagnostic Pul[facility] Function [facility], [facility] 132 [facility] [place] [address] [place], Pft 132 [facility] [place] [address] 02/16/2024 10:00 AM EDT Office Visit Sleep Disorders Ctr [facility] [place] 132 [facility] [place] Harris [phone] Debby Cornejo, DO 132 [facility] [place] [address] 03/02/2024 8:00 AM EDT Laboratory Laboratory Patient Service [place], [place] [address] [place] [address] [place], Lab [address] [address] 03/07/2024 9:00 AM EDT Office Visit Family Practice [address] [place] [address], [place] [address] [place] Mccarthy [phone] Javy Moscoso DO [address] [place] Mccarthy [address] 03/08/2024 8:00 AM EDT Laboratory Laboratory Patient Service [place], [place] [address] [place] [address] [place], Lab Lock [address] [place] [address] 03/15/2024 11:00 AM EDT Office Visit Hematology/Oncolog y [place] [address] [place] [phone] Katt Mullen CRNP [address] [place], [place] [address]K[place] Perez [address] 04/27/2024 9:30 AM EDT Hospital Encounter ENDO [facility], Endoscopy Room [facility] [address] [place] [phone] Dominick Amador MD [address] [place] [address] 04/27/2024 9:30 AM EDT - 04/27/2024 10:15 AM EDT Surgery ENDO [facility], Endoscopy Room [facility] [address] [place] [phone] Dominick Amador MD [address] [place] [address] COLONOSCOPY FLEXIBLE PROXIMAL DIAGNOSTIC 07/24/2024 2:00 PM EST Office Visit Nephrology, [facility] [address] [place] [address] Augusto Lerner MD [address] [facility] [place] Sharma [address] 10/03/2024 11:00 AM EST Nurse Only Ancillary [address], [place] [address] [place] Mccarthy [address] [place], Nurse Annual Wellness Visit [address] [place] Mccarthy [address] Scheduled Procedures Name Priority [...] 12/15/2020, Additional history exists GFR 03/08/2024 09/08/2023, 12/0 02/2023, 05/05/2023, Additional history exists HbA1c 03/08/2024 09/08/2023, 02/2023, 02/02/2023, Additional history exists O2 ASSESSMENT COMPLETED IN PAST YEAR FOR COPD 03/28/2024 03/28/2023 CKD PHOS USE SMARTSET 60988 05/05/2024 090 02/2023, 02/02/2023, 01/11/2022, Additional history exists Diabetic Foot Exam 06/16/2024 06/16/2023, 06/16/2023 Diabetic Eye Exam 08/24/2024 08/24/2023, , 11/02/2022, Additional history exists CKD HGB USE SMARTSET 86279 09/08/202409/08, 09/08/2023, 08/04/2023, Additional history exists Albumin/Creatinine [...] the patient have Health Care Power of Case Aide? No Care Teams Vocational Technical Education Teacher Relationship Specialty Start Date End Date Javy Moscoso DO [address] [place] Mccarthy [address] PCP - General Family Medicine 07/04/23 documented as of this encounter
--- OUTSIDE RECORDS SUMMARY | 2024-02-25 03:34 | External Medical Summary | Summary of Care ---
Author Name Unknown Organization [facility] Address [address] [facility] [address] Phone [phone] Care Team Providers Care Robotic Machine Tender Production Name Role Phone Javy Moscoso DO Primary Care Provider [phone] Reason for Visit * Reason Onset Date Comments Medication Refill 12/13/2023 Encounter Details Date Type Department Care Team (Late st Contact Info) Description 12/13/2023 Refill Family Practice 65 [facility], [place] [address] [place] Mccarthy [address] Javy Moscoso DO [address] [place] Mccarthy [address] Type 2 diabetes mellitus with hyperglycemia, with long-term current use of insulin ([facility]) Allergies Active Allergy Reactions Criticality [...] 09/08/2023 Active Vitamin D (Ergocalciferol) 1.25 MG (64200 UT) Oral Capsule (Drisdol)Indication s:Vitamin D deficiency [...] morning. 90 Capsule 2 10/04/2023 Active Pen [place] 31G X 5 MMIndications:Type 2 diabetes mellitus [...] 10 days. E11.9 0 Active Dexcom G7 Automobile Damage Appraiser Device Use as directed. Use as directed [...] (PFIZER-Comirnaty) 06/16/2023 Pneumococcal Conjugate Vacci ne, 20-valent ([id number]) 12/07/2022 Pneumococcal Polysaccharide PPV23 (Pneumovax) 09/08/2020 Season [...] them to process. Thank You, Nyla Watson, [facility] Building Components Designer II Centralized Clinical Pharmacy Services (CCPS) (Formerly Telepharmacy) 12/13/2023, 4:53 PM * Addendum Note - Iván Gamboa [facility] - 12/13/2023 4:50 PM EDTAddended by: IVÁN [...] Pharmacist Centralized Clinical Pharmacy Services (CCPS) [facility]) [phone] 12/13/2023 4:42 PM * Telephone Encounter - [...] or any previous visit. Patient Phone Numbers [place] [phone] Labs: Lab Results Component Value Date/Time CREAT [...] AM EDT Laboratory Laboratory Patient Service Center, [address] [phone] [address] [address] 01/17/2024 9:00 AM EDT Office Visit [facility] [address] [place] [address] [place] Pharmacist [address] [place] Mcc[place] [address] 01/25/2024 8:00 AM EDT PulmDiagnostic Pulmonary Function Lab, [facility] 132 [facility] [place] DENTON [address] West, Pft 132 [facility] [place] [address] 02/16/2024 10:00 AM EDT Office Visit Sleep Disorders Ctr [facility] [address] [place] Thomas [phone] Debby Cornejo DO [address] [place] [address] 03/02/2024 8:00 AM EDT Laboratory Laboratory Patient Service [place], [place] [address] [place] [address] [place], Lab Lock [address] [place] [address] 03/07/2024 9:00 AM EDT Office Visit Family Practice [address] [place] [address], [place] [address] [place] Mcc[place] [address] Javy Moscoso DO [address] [place] Mccarthy [address] 03/08/2024 8:00 AM EDT Laboratory Laboratory Patient Service [place], [place] [address] [place] [address] [place], Lab Lock [address] [place] [address] 03/15/2024 11:00 AM EDT Office Visit Hematology/Oncolog y [facility] [address] [place] [place] [place] [phone] Katt Mullen CRNP [address] [place] [address] [place] MOISE [address] 04/27/2024 9:30 AM EDT Hospital Encounter ENDO [facility], Endoscopy Room [facility] [address] [phone] Dominick Amador MD 132 [place] [address] 04/27/2024 9:30 AM EDT - 04/27/2024 10:15 AM EDT Surgery ENDO [facility], Endoscopy Room [facility] [address] [place] [phone] Dominick Amador MD [address] [place] [address] COLONOSCOPY FLEXIBLE PROXIMAL DIAGNOSTIC 07/24/2024 2:00 PM EST Office Visit Nephrology, [facility] [address] [place] [address] Augusto Lerner MD [address] [place] Sharma [address] 10/03/2024 11:00 AM EST Nurse Only Ancillary [address], [place] [address] [place]cc[place] [address] [place], Nurse Annual Wellness Visit [address] [place] Mcc[place] [address] Scheduled Procedures Name Priority [...] COPD 03/28/2024 03/28/2023 CKD PHOS USE SMARTSET 57848 05/05/2024 0902/2023, 02/02/2023, 01/11/2022, Additional history exists Diabetic Foot Exam 06/16/2024 06/16/2023, 06/16/2023 Diabetic Eye Exam 08/24/2024 08/24/2023, , 11/02/2022, Additional history exists CKD HGB USE SMARTSET 63155 09/08/202409/08, 09/08/2023, 08/04/2023, Additional history exists Albumin/Creatinine [...] the patient have Health Care Power of Mechanical Project Manager? No Care Teams Robotic Machine Tender Production Relationship Specialty Start Date End Date Javy Moscoso DO [address] [place] Mccarthy [phone] PCP - General Family Medicine 07/04/23 documented as of this encounter
--- OUTSIDE RECORDS SUMMARY | 2024-02-25 03:34 | External Medical Summary | Summary of Care ---
Author Name Unknown Organization [facility] Address [address] [place] [address] Phone [phone] Care Team Providers Care Utilization Management Manager Name Role Phone Javy Moscoso DO Primary Care Provider [phone] Reason for Visit * Reason Onset Date Comments Blood Glucose Monitoring 12/12/2023 Encounter Details Date Type Department Care Team (Late st Contact Info) Description 12/12/2023 Telephone Pharmacy, [place] [address] [place]cc[place] [address] Hans Kaba, [facility] [address] [place] M[place] [address] Blood Glucose Monitoring Allergies [...] 09/08/2023 Active Vitamin D (Ergocalciferol) 1.25 MG (64567 UT) Oral Capsule (Drisdol)Indications :Vitamin D deficiency Take 1 Capsule by mouth Every Month. 6 Capsule 0 09/08/2023 03/06/2024 Active Tixie ([employer]Touch Ultra In Vitro Strip (Glucose Blood) USE [...] 90 Capsule 2 10/04/2023 Active Pen [place] 31G X 5 MMIndications:Type 2 diabetes mellitus with hyperglycemia, with long-term current use of insulin ([facility]) Use as directed. Use as directed with [...] hyperglycemia, with long-term current use of insulin ([facility]) Inject 22 Units under the skin at bedtime. 15 mL 5 12/06/2023 Active Dexcom G7 Sensor Use as directed. Use as directed to monitor blood sugars daily. Replace sensor every 10 days. E11.9 0 Active Dexcom G7 Diabetes Trainer Device Use as directed. Use as [...] inhalation solution 2.5 mgIndications:ILD (interstitial lung disease) ([facility]),BEARDEN (dyspnea on exertion) 2.5 mg NEBULIZER Q4H [...] 12/07/2022 Bilateral impacted cerumen 10/22/2022 Atherosclerosis of [place] co ronary artery without angina pectoris 07/15/2022 [...] mRNA, LNP-s, No Pre serve, 2-Dose Series ([employer]) 07/03/2021,12/27/2020,12/06/2020 COVID-19, MRNA-LNP, 23-24, P F, 30 MCG/0.3 mL, 12 YRS AND ABOVE, IM (PFIZER-Comirnaty) 06/16/2023 Pneumococcal Conjugate Vacci ne, 20-valent ([id number]) 12/07/2022 Pneumococcal Polysaccharide PPV23 (Pneumovax) 09/08/2020 Season [...] the Lantus can be sent in to [facility] as pt only has about half a pen left and will need to refill at the increased 26 unit dose he has been using. Pended Rx in new encounter for new dosing to be sent to mail order Thank You, Nyla Watson [facility] Adviser II Centralized Clinical Pharmacy Services (CCPS) (Formerly Telepharmacy) 12/13/2023, 4:33 PM * Telephone Encounter - Javy Moscoso DO - 12/12/2023 3:42 PM EDT noted * Telephone Encounter - Hans Kaba RPh - 12/12/2023 1:32 PM EDT Patient Phone Numbers Spoke to patient. Reports BG have remained [...] 8:00 AM EDT Laboratory Laboratory Patient Service [place], [place] [address] [place] [address] [place], Lab Lock [address] [place] [address] 01/17/2024 9:00 AM EDT Office Visit Family [address] [place] [address] [place] Pharmacist [address] [place] [address] 01/25/2024 8:00 AM EDT PulmDiagnostic Pulmonary Function Lab, [facility] 132 [facility] [place] ROMERO [address] West, Pft 132 [facility] [place] Romero [address] 02/16/2024 10:00 AM EDT Office Visit [facility] Disorders Ctr [facility] 132 [facility] [place] [phone] Debby Cornejo DO 132 [facility] [place]ero [address] 03/02/2024 8:00 AM EDT Laboratory Laboratory Patient Service [address] [address] [place], Lab Lock [address] [place] [address] 03/07/2024 9:00 AM EDT Office Visit [address] [place] [address] [place] Mccarthy [phone] Javy Moscoso DO [address] [place] Mcc[place] [address] 03/08/2024 8:00 AM EDT Laboratory Laboratory Patient Service Center, [address] [place] Mckeon [address] [place] Shankar Lock [address] [place] [address] [place]KEON [address] 03/15/2024 11:00 AM EDT Office Visit Hematology/Oncolog y [employer] [address] [facility] [place] Sharma [phone] Katt Mullen CRNP [address] [place], [place] [address]K[place] Perez [address] 04/27/2024 9:30 AM EDT Hospital Encounter ENDO [facility], Endoscopy Room [facility] [address] [place] [phone] Dominick Amador MD [address] [place] [address] 04/27/2024 9:30 AM EDT - 04/27/2024 10:15 AM EDT Surgery ENDO [facility], Endoscopy Room [facility] [address] [place]on [phone] Dominick Amador MD [address] [place] [address] COLONOSCOPY FLEXIBLE PROXIMAL DIAGNOSTIC 07/24/2024 2:00 PM EST Office Visit Nephrology, [facility] [place] [address] Augusto Lerner MD [address] [facility] [place] Sharma [address] 10/03/2024 11:00 AM EST Nurse Only Ancillary [address], [place] [address] [place] Mccarthy [phone] [place] Nurse Annual Wellness Visit [address] [place] Mccarthy [phone] Scheduled Procedures Name Priority Associated Diagnoses Date/Ti [...] COPD 03/28/2024 03/28/2023 CKD PHOS USE SMARTSET 70930 05/05/202402/2023, 02/02/2023, 01/11/2022, Additional history exists Diabetic Foot Exam 06/16/2024 06/16/2023, 06/16/2023 Diabetic Eye Exam 08/24/2024 08/24/2023, , 11/02/2022, Additional history exists CKD HGB USE SMARTSET 32620 09/08/202409/08, 09/08/2023, 08/04/2023, Additional history exists Albumin/Creatinine [...] the patient have Health Care Power of Capital Campaign Fundraiser? No Care Teams Utilization Management Manager Relationship Specialty Start Date End Date Javy Moscoso DO [address] [place] Mcc[place] [address] PCP - General Family Medicine 07/04/23 documented as of this encounter
--- OUTSIDE RECORDS SUMMARY | 2024-02-25 03:34 | External Medical Summary | Summary of Care ---
Author Name Unknown Organization [facility] Address [address] [facility] [address] Phone [phone] Care Team Providers Care Seam Sewer Name Role Phone Javy Moscoso DO Primary Care Provider [phone] Reason for Visit * Reason Onset Date Comments Medication Refill 12/13/2023 Encounter Details Date Type Department Care Team (Late st Contact Info) Description 12/13/2023 Refill Family Practice 65 [facility], [place] [address] [place] [address] Javy Moscoso DO [address] [place] [address] Type 2 diabetes mellitus with hyperglycemia, with long-term current use of insulin ([facility]) Allergies Active Allergy Reactions Criticality Noted [...] 09/08/2023 Active Vitamin D (Ergocalciferol) 1.25 MG (08815 UT) Oral Capsule (Drisdol)Indication s:Vitamin D deficiency [...] morning. 90 Capsule 2 10/04/2023 Active Pen [place] 31G X 5 MMIndications:Type 2 diabetes mellitus [...] 10 days. E11.9 0 Active Dexcom G7 Drawer In Dobby Loom Device Use as directed. Use as directed [...] 12/07/2022 Bilateral impacted cerumen 10/22/2022 Atherosclerosis of [place] co ronary artery without angina pectoris 07/15/2022 [...] (PFIZER-Comirnaty) 06/16/2023 Pneumococcal Conjugate Vacci ne, 20-valent ([id number]) 12/07/2022 Pneumococcal Polysaccharide PPV23 (Pneumovax) 09/08/2020 Season [...] encounter Miscellaneous Notes * Addendum Note - Iván Gamboa [facility] - 12/13/2023 4:50 PM EDTAddended by: IVÁN GAMBOA on: 12/13/2023 04:50 PM Modules accepted: Orders * Telephone Encounter - Nadir Diaz RP - 12/13/2023 4:38 PM EDT Pt called [...] Pharmacist [facility] Services (CCPS) (formerly Telepharmacy) [phone] 12/13/2023 4:42 PM * Telephone Encounter - Nyla Watson PHARM Tech - 12/13/2023 4:36 PM EDT Did you pend patient's preferred pharmacy and medication before forwarding?yes Pharmacy: [facility] Pending Prescriptions: Disp Refills [...] AM EDT Laboratory [facility], [facility] [address] [place] [address] Have, Lab [address] [place] [address] 01/17/2024 9:00 AM EDT Office Visit [place] [address] [address] [place] [address] [place] Pharmacist 65 [facility] [address] [place] M[place] [address] 01/25/2024 8:00 AM EDT PulmDiagnostic Pulmonary Function Lab, [facility] 132 [facility] [place]ERO [address] West, Pft 132 [facility] [place] [address] 02/16/2024 10:00 AM EDT Office Visit Sleep Disorders Ctr [facility] 132 [facility] [place] [phone] Debby Cornejo, 132 [facility] [place] [address] 03/02/2024 8:00 AM EDT Laboratory [facility], [facility] [address] [place] [address] Havemaría elena, Lab [address] [place] [address] 03/07/2024 9:00 AM EDT Office Visit [address] [place] [phone] Javy Moscoso DO [address] [place] Mccarthy [phone] 03/08/2024 8:00 AM EDT Laboratory Laboratory Patient Service [place], [address] [phone] Brendon Shankar [address] [place] [address] [place]DUE [address] 03/15/2024 11:00 AM EDT Office Visit Hematology/Oncolog y State Jacquelyn Adamson 200 [facility] [place] [address] Katt Mullen CRNP 400 [facility] [place] [address] 04/27/2024 9:30 AM EDT Hospital Encounter ENDO OSSC, Endoscopy Room [facility] [address] [facility] [phone] Dominick Amador MD [address] [place] [address] 04/27/2024 9:30 AM EDT - 04/27/2024 10:15 AM EDT Surgery ENDO OSS[facility], Endoscopy Room [facility] [place] [phone] Dominick Amador MD [address] [place] [address] COLONOSCOPY FLEXIBLE PROXIMAL DIAGNOSTIC 07/24/2024 2:00 PM EST Office Visit Nephrology, [facility] 200 [facility] [place]arma [address] Augusto Lerner MD 200 [facility] [place]arma [address] 10/03/2024 11:00 AM EST Nurse Only Ancillary [address], [place] [address] [place] Mccarthy [phone] [place], Nurse Annual Wellness Visit [address] [place] Mcc[place] [address] Scheduled Procedures Name Priority [...] COPD 03/28/2024 03/28/2023 CKD PHOS USE SMARTSET 13119 05/05/202402/2023, 02/02/2023, 01/11/2022, Additional history exists Diabetic Foot Exam 06/16/2024 06/16/2023, 06/16/2023 Diabetic Eye Exam 08/24/2024 08/24/2023, , 11/02/2022, Additional history exists CKD HGB USE SMARTSET 26450 09/08/202409/08, 09/08/2023, 08/04/2023, Additional history exists Albumin/Creatinine [...] the patient have Health Care Power of Magnetic Prospecting Operator? No Care Teams Seam Sewer Relationship Specialty Start Date End Date Javy Moscoso DO [address] [place] [address] PCP - General Family Medicine 07/04/23 documented as of this encounter
--- OUTSIDE RECORDS SUMMARY | 2024-02-25 03:34 | External Medical Summary | Summary of Care ---
Author Name Unknown Organization [facility] Address [address] [place] [facility] [place] [place] [address] Phone [phone] Care Team Providers Care Project Admin Name Role Phone Javy Moscoso DO Primary Care Provider [phone] Reason for Visit * Reason Onset Date Comments Test Results 12/14/2023 Encounter Details Date Type Department Care Team (Late st Contact Info) Description 12/14/2023 Telephone Family Practice 65 [facility], [place] [address] [place] Mccarthy [phone] Javy Moscoso DO [address] [place] M[place]arthy [phone] Test Results Allergies Active [...] 09/08/2023 Active Vitamin D (Ergocalciferol) 1.25 MG (49273 UT) Oral Capsule (Drisdol)Indications :Vitamin D deficiency [...] morning. 90 Capsule 2 10/04/2023 Active Pen [place] 31G X 5 MMIndications:Type 2 diabetes mellitus with hyperglycemia, with long-term current use of insulin ([facility]) Use as directed. Use as directed [...] 10 days. E11.9 0 Active Dexcom G7 Foot Cutter Device Use as directed. Use as directed [...] with long-term current use of insulin ([facility]) Inject 26 Units under the skin at bedtime. 24 mL 1 12/13/2023 Active Hospital, Clinic, or Other Facility Administered Medication Ordered Dose Route Frequency Start Date End Date Status Albuterol Sulfate (Proventil) (2.5 MG/3ML) 0.083% inhalation solution 2.5 mgIndications:ILD (interstitial lung disease) ([facility]),BEARDEN (dyspnea on exertion) 2.5 mg NEBULIZER [...] 12/07/2022 Bilateral impacted cerumen 10/22/2022 Atherosclerosis of [place] co ronary artery without angina pectoris 07/15/2022 [...] mRNA, LNP-s, No Pre serve, 2-Dose Series (Plum Baby) 07/03/2021,12/27/2020,12/06/2020 COVID-19, MRNA-LNP, 23-24, P F, 30 MCG/0.3 mL, 12 YRS AND ABOVE, IM (Planet Prestige-Comirnat) 06/16/2023 Pneumococcal Conjugate Vacci ne, 20-valent ([email or web address]) 12/07/2022 Pneumococcal Polysaccharide PPV23 (Pneumovax) 09/08/2020 Season [...] AM EDT Laboratory Laboratory Patient Service [address] [phone] [address] 01/17/2024 9:00 AM EDT Office Visit Family Practice [address], [place] [address] [place] [address] [place], Pharmacist [address] [place] Mccarthy [address] 01/25/2024 8:00 AM EDT PulmDiagnostic Pulmonary Function Lab, [facility] [address] [place] [address] West, Pft [address] [place] [address] 02/16/2024 10:00 AM EDT Office Visit Sleep Disorders Ctr [facility] [address] [place] [phone] Debby Cornejo DO [address] [place] [address] 03/02/2024 8:00 AM EDT Laboratory [facility], [place] [address] [place] [address] [place], Lab Lock [address] [place] [address] 03/07/2024 9:00 AM EDT Office Visit Family [facility] 65 [facility], [place] [address] [place] [address] Javy Moscoso DO [address] [place] Mcc[place] [address] 03/08/2024 8:00 AM EDT Laboratory Laboratory Patient Service [place], [place] [address] [place] [phone] [place], Lab Lock [address] [place] [address] 03/15/2024 11:00 AM EDT Office Visit Hematology/Oncolog y [facility] [place] [facility] [phone] Katt Mullen CRNP [facility] [address] 04/27/2024 9:30 AM EDT Hospital Encounter ENDO OSSC, Endoscopy Room [facility] [address] [place] [phone] Dominick Amador MD [address] [place] [address] 04/27/2024 9:30 AM EDT - 04/27/2024 10:15 AM EDT Surgery ENDO OSSC, Endoscopy Room [facility] [address] [place] [phone] Dominick Amador MD [address] [place] [address] COLONOSCOPY FLEXIBLE PROXIMAL DIAGNOSTIC 07/24/2024 2:00 PM EST Office Visit Nephrology, [facility] 200 [facility] [place] [address] Augusto Lerner MD 200 [facility] [place] Sharma [address] 10/03/2024 11:00 AM EST Nurse Only Ancillary 65 [facility], [place] [address] [place] Mcc[place] [address] [place], Nurse Annual Wellness Visit [address] [place] Mcc[place] [address] Scheduled Procedures Name Priority [...] COPD 03/28/2024 03/28/2023 CKD PHOS USE SMARTSET 79459 05/05/202402/2023, 02/02/2023, 01/11/2022, Additional history exists Diabetic Foot Exam 06/16/2024 06/16/2023, 06/16/2023 Diabetic Eye Exam 08/24/2024 08/24/2023, , 11/02/2022, Additional history exists CKD HGB USE SMARTSET 90457 09/08/202409/08, 09/08/2023, 08/04/2023, Additional history exists Albumin/Creatinine Ratio 09/09/2024 09/09/2023, 1111/2021 Depression Screening 09/28/2024 09/28/2023 DTaP,Tdap,and Td Vaccines [...] the patient have Health Care Power of Alteration Workroom Supervisor? No Care Teams Project Admin Relationship Specialty Start Date End Date Javy Moscoso DO [address] [place] Mcc[place] [address] PCP - General Family Medicine 07/04/23 documented as of this encounter
--- OUTSIDE RECORDS SUMMARY | 2024-02-25 03:34 | External Medical Summary | Summary of Care ---
Author Name Unknown Organization [facility] Address [address] [facility] [place] [address] Phone [phone] Care Team Providers Care Utilization Management Manager Name Role Phone Javy Moscoso DO Primary Care Provider [phone] Reason for Visit * Reason Comments Medication Refill Encounter Details Date Type Department Care Team (Late st Contact Info) Description 12/13/2023 Refill Family Practice 65 [facility], [place] [address] [place] [address] Javy Moscoso DO [address] [place]cc[place] [address] Encounter for long-term (current) use of medications*; Gastroesophageal reflux disease without esophagitis Allergies Active Allergy Reactions Criticality Noted Date [...] 09/08/2023 Active Vitamin D (Ergocalciferol) 1.25 MG (00601 UT) Oral Capsule (Drisdol)Indication s:Vitamin D deficiency [...] morning. 90 Capsule 2 10/04/2023 Active Pen [place] 31G X 5 MMIndications:Type 2 diabetes mellitus with hyperglycemia, with long-term current use of insulin ([facility]) Use as directed. Use as directed [...] 10 days. E11.9 0 Active Dexcom G7 Brake Operator Heavy Duty Device Use as directed. Use as directed [...] long-term current use of insulin ([facility]) Inject 26 Units under the skin at bedtime. 24 mL 1 12/13/2023 Active Pantoprazole Sodium 40 MG Oral Tablet Delayed Release (Protonix)Indicatio ns:Gastroesophageal reflux disease without esophagitis TAKE ONE TABLET BY MOUTH EVERY MORNING 90 Tablet 3 2023 4 Discontinue d(Refill) Hospital, Clinic, or Other Facility Administered Medication Ordered Dose Route Frequency Start Date End Date Status Albuterol Sulfate (Proventil) (2.5 MG/3ML) 0.083% inhalation solution 2.5 mgIndications:ILD (interstitial lung disease) ([facility]),BEARDEN (dyspnea on exertion) 2.5 mg NEBULIZER [...] Per CKD protocol [facility] 10/21/2021 07/08/2022 COPD, severity [...] (PFIZER-Comirnaty) 06/16/2023 Pneumococcal Conjugate Vacci ne, 20-valent ([id number]) 12/07/2022 Pneumococcal Polysaccharide PPV23 (Pneumovax) 09/08/2020 Season [...] encounter Miscellaneous Notes * Telephone Encounter - Oanh Conn [facility] - 12/14/2023 9:30 AM EDTSigned Prescriptions: Disp Refills Pantoprazole Sodium 40 MG Oral Tablet [place]serrat*90 Tab*3 Sig: TAKE ONE TABLET BY MOUTH EVERY MORNINGAuthorizing Provider: Saroj MOSCOSO User: OANH CONN documented in this encounter Plan of Treatment Upcoming Encounters Date Type Department Care Team (Late st Contact Info) Description 12/15/2023 8:00 AM EDT Laboratory [facility], [address] [phone] [place] [address] [address] 01/17/2024 9:00 AM EDT Office Visit Family Practice [address], [place] [address] [place] [address] [place], Pharmacist [address] [place] Mcc[place] [address] 01/25/2024 8:00 AM EDT PulmDiagnostic Pulmonary Function Lab, [facility] 132 [facility] [place] ROMERO [address] West, Pft [address] [facility] [place] Romero [address] 02/16/2024 10:00 AM EDT Office Visit Sleep Disorders Ctr [facility] [address] [facility] [place] [phone] Debby Cornejo, DO 132 [facility] [place] Rom[place] [address] 03/02/2024 8:00 AM EDT Laboratory [facility], [place] [address] [place] [address] [place], Lab [address] [address] 03/07/2024 9:00 AM EDT Office Visit Family Practice [address] [place] [address] [address] [place] Mccarthy [phone] Javy Moscoso DO [address] [place] [address] 03/08/2024 8:00 AM EDT Laboratory Laboratory Patient Service [place], [place] [address] [place] [address] [place], Lab Lock [address] [place] [address] 03/15/2024 11:00 AM EDT Office Visit Hematology/Oncolog y [facility] [place] [address] [place] [address] Katt Mullen CRNP [address] [place] [address] [place] MOISE [address] 04/27/2024 9:30 AM EDT Hospital Encounter ENDO [facility], Endoscopy Room [facility] [address] [place] [phone] Dominick Amador MD [address] [place] [address] 04/27/2024 9:30 AM EDT - 04/27/2024 10:15 AM EDT Surgery ENDO [facility], Endoscopy Room [facility] [address] [place] [phone] Dominick Amador MD [address] [place] [address] COLONOSCOPY FLEXIBLE PROXIMAL DIAGNOSTIC 07/24/2024 2:00 PM EST Office Visit Nephrology, [place] 200 [facility] [place] [address] Augusto Lerner MD 200 [facility] [place] [address] 10/03/2024 11:00 AM EST Nurse Only Ancillary 65 [facility] [place] [address] [place] Mccarthy [phone] [place], Nurse Annual Wellness Visit [address] [place] M[place] [address] Scheduled Orders Name Type Priority Associated Diagnoses Orde r Schedule MAGNESIUM Lab Routine Encounter for long-term (current) use of medications Expected: 12/14/2023 (Approximate), Expires: 12/13/2024 Scheduled Procedures Name Priority Associated Diagnoses Date/Ti [...] COPD 03/28/2024 03/28/2023 CKD PHOS USE SMARTSET 40118 05/05/202402/2023, 02/02/2023, 01/11/2022, Additional history exists Diabetic Foot Exam 06/16/2024 06/16/2023, 06/16/2023 Diabetic Eye Exam 08/24/2024 08/24/2023, , 11/02/2022, Additional history exists CKD HGB USE SMARTSET 69338 09/08/202409/08, 09/08/2023, 08/04/2023, Additional history exists Albumin/Creatinine [...] as of this encounter Visit Diagnoses Diagnosis Encounter for long-term (current) use of medications- Primary Encounter for long-term (current) use of other medications Gastroesophageal reflux disease without esophagitis Esophageal reflux Iron deficiency anemia Iron deficiency anemia, unspecified [...] the patient have Health Care Power of Poiser Balance? No Care Teams Utilization Management Manager Relationship Specialty Start Date End Date Javy Moscoso DO [address] [place] Mccarthy [phone] PCP - General Family Medicine 07/04/23 documented as of this encounter
--- OUTSIDE RECORDS SUMMARY | 2024-02-25 03:35 | External Medical Summary | Summary of Care ---
Author Name Unknown Organization [facility] Address [address] [place] [address] Phone [phone] Care Team Providers Care Grease And Tallow Pumper Name Role Phone Javy Moscoso DO Primary Care Provider [phone] Reason for Visit * Reason Onset Date Comments Blood Glucose Monitoring 12/12/2023 Encounter Details Date Type Department Care Team (Late st Contact Info) Description 12/12/2023 Telephone Pharmacy, [place] [address] [place] [address] Hans [place], [facility] [address] [place] M[place] [address] Blood Glucose Monitoring Allergies Active Allergy Reactions Criticality Noted Date Comments Lisinopril Unknown Low 11/15/2022 Verapamil Medium 06/26/2020 Heart Block documented as of this encounter (statuses as of 12/12/2023) Medications Medication Sig Dispensed Refills Start Date [...] 09/08/2023 Active Vitamin D (Ergocalciferol) 1.25 MG (76361 UT) Oral Capsule (Drisdol)Indications :Vitamin D deficiency Take 1 Capsule by mouth Every Month. 6 Capsule 0 09/08/2023 03/06/2024 Active eXenSaTouch Ultra In Vitro Strip (Glucose Blood) USE [...] morning. 90 Capsule 2 10/04/2023 Active Pen [place] 31G X 5 MMIndications:Type 2 diabetes mellitus with hyperglycemia, with long-term current use of insulin ([facility]) Use as directed. Use as [...] long-term current use of insulin ([facility]) Inject 22 Units under the skin at bedtime. 15 mL 5 12/06/2023 Active Dexcom G7 Sensor Use as directed. Use as directed to monitor blood sugars daily. Replace sensor every 10 days. E11.9 0 Active Dexcom G7 Saw Sharpener Device Use as directed. Use as directed [...] 2.5 mgIndications:ILD (interstitial lung disease) ([facility]),BEARDEN (dyspnea on exertion) 2.5 mg NEBULIZER Q4H PRN 12/12/2023 Act jose documented as of this encounter (statuses as of 12/12/2023) Active Problems Problem Noted Date Diagnosed Date [...] 12/07/2022 Bilateral impacted cerumen 10/22/2022 Atherosclerosis of [place] co ronary artery without angina pectoris 07/15/2022 [...] as of this encounter (statuses as of 12/12/2023) Resolved Problems Problem Noted Date Diagnosed Date [...] as of this encounter (statuses as of 12/12/2023) Immunizations Name Administration Dates Next Due COVID-19 mRNA, LNP-s, No Pre serve, 2-Dose Series (Levant Power) 07/03/2021,12/27/2020,12/06/2020 COVID-19, MRNA-LNP, 23-24, P F, 30 MCG/0.3 mL, 12 YRS AND ABOVE, IM (PFIZER-Comirnaty) 06/16/2023 Pneumococcal Conjugate Vacci ne, 20-valent ([email or web address]) 12/07/2022 Pneumococcal Polysaccharide PPV23 (Pneumovax) 09/08/2020 Season [...] 8:00 AM EDT Laboratory Laboratory Patient Service [address] [phone] [place], [address] [address] 01/17/2024 9:00 AM EDT Office Visit Family Practice [address], [place] [address] [place] [address] [place] Pharmacist [address] [place] M[place] [address] 01/25/2024 8:00 AM EDT PulmDiagnostic Pulmonary Function Lab, [facility] [address] [place] [address] West, Pft 132 [facility] [place] [address] 02/16/2024 10:00 AM EDT Office Visit Sleep Disorders Ctr [facility] [address] [place] [phone] Debby Cornejo DO [address] [place] [address] 03/02/2024 8:00 AM EDT Laboratory [facility], [place] 68 [facility] [place] [address] [facility], Lab Lock [address] [place] [address] 03/07/2024 9:00 AM EDT Office Visit [address] [place] [address] Javy Moscoso DO [address] [place] [place] M[place]arthy [address] 03/08/2024 8:00 AM EDT Laboratory Laboratory Patient Service [place], [place] [address] [place] [address] [place], Lab Lock [address] [place] [address] 03/15/2024 11:00 AM EDT Office Visit Hematology/Oncolog y [facility] [address] [place] [phone] Katt Mullen CRNP 400 [facility] [place] [address] 04/27/2024 9:30 AM EDT Hospital Encounter ENDO [facility], Endoscopy Room [facility] [address] [place] [phone] Dominick Amador MD [address] [place] [address] 04/27/2024 9:30 AM EDT - 04/27/2024 10:15 AM EDT Surgery ENDO [facility], Endoscopy Room [facility] [address] [place] [address] Dominick Amador MD [address] [place] [address] COLONOSCOPY FLEXIBLE PROXIMAL DIAGNOSTIC 07/24/2024 2:00 PM EST Office Visit Nephrology, [facility] [address] [place] [address] Augusto Lerner MD [address] [place] [address] 10/03/2024 11:00 AM EST Nurse Only Ancillary 65 [facility], [place] [address] [place] [place] Mcc[place] [address] [place], Nurse Annual Wellness Visit [address] [place] Mccarthy [address] Scheduled Procedures Name Priority [...] COPD 03/28/2024 03/28/2023 CKD PHOS USE SMARTSET 42729 05/05/202402/2023, 02/02/2023, 01/11/2022, Additional history exists Diabetic Foot Exam 06/16/2024 06/16/2023, 06/16/2023 Diabetic Eye Exam 08/24/2024 08/24/2023, , 11/02/2022, Additional history exists CKD HGB USE SMARTSET 56601 09/08/202409/08, 09/08/2023, 08/04/2023, Additional history exists Albumin/Creatinine [...] the patient have Health Care Power of Vacuum Drum Drier Operator? No Care Teams Grease And Tallow Pumper Relationship Specialty Start Date End Date Javy Moscoso DO [address] [place] Mccarthy [phone] PCP - General Family Medicine 07/04/23 documented as of this encounter
--- OUTSIDE RECORDS SUMMARY | 2024-02-25 03:35 | External Medical Summary | Summary of Care ---
Author Name Unknown Organization [facility] Address [address] [place] [address] Phone [phone] Care Team Providers Care Medical Research Tech Name Role Phone Javy Moscoso DO Primary Care Provider [phone] Reason for Visit * Reason Onset Date Comments Blood Glucose Monitoring 12/12/2023 Encounter Details Date Type Department Care Team (Late st Contact Info) Description 12/12/2023 Telephone Pharmacy, [place] [address] [place] Mcc[place] [address] Hans Kaba, [facility] [address] [place] [address] Blood Glucose Monitoring Allergies [...] 09/08/2023 Active Vitamin D (Ergocalciferol) 1.25 MG (04436 UT) Oral Capsule (Drisdol)Indications :Vitamin D deficiency Take 1 Capsule by mouth Every Month. 6 Capsule 0 09/08/2023 03/06/2024 Active Rivet & SwayTouch Ultra In Vitro Strip (Glucose Blood) USE [...] morning. 90 Capsule 2 10/04/2023 Active Pen [place] 31G X 5 MMIndications:Type 2 diabetes mellitus with hyperglycemia, with long-term current use of insulin ([facility]) Use as directed. Use as directed [...] with long-term current use of insulin ([facility]) Inject 22 Units under the skin at bedtime. 15 mL 5 12/06/2023 Active Dexcom G7 Sensor Use as directed. Use as directed to monitor blood sugars daily. Replace sensor every 10 days. E11.9 0 Active Dexcom G7 Certified Nurse Midwife Device Use as directed. Use as directed [...] solution 2.5 mgIndications:ILD (interstitial lung disease) ([facility]),BEARDEN (dyspnea on exertion) 2.5 mg [...] 12/07/2022 Bilateral impacted cerumen 10/22/2022 Atherosclerosis of [place] co ronary artery without angina pectoris 07/15/2022 [...] mRNA, LNP-s, No Pre serve, 2-Dose Series ([employer]) 07/03/2021,12/27/2020,12/06/2020 COVID-19, MRNA-LNP, 23-24, P F, 30 MCG/0.3 mL, 12 YRS AND ABOVE, IM (PFIZER-Comirnaty) 06/16/2023 Pneumococcal Conjugate Vacci ne, 20-valent ([id number]) 12/07/2022 Pneumococcal Polysaccharide PPV23 (Pneumovax) 09/08/2020 Season [...] the Lantus can be sent in to [facility] as pt only has about half a pen left and will need to refill at the increased 26 unit dose he has been using. Thank You, Nyla Watson, [facility] Respiratory Care Faculty II [facility] ([facility]) (Formerly Telepharmacy) 12/13/2023, 4:33 PM * Telephone Encounter - Javy Moscoso DO - 12/12/2023 3:42 PM EDT noted * Telephone Encounter - Hans Kaba RPh - 12/12/2023 1:32 PM EDT Patient Phone Numbers [facility] [phone] Spoke to patient. Reports BG have remained [...] AM EDT Laboratory Laboratory [facility], [place] [address] [place] [phone] [place], [facility] [place] [address] [place] [address] 01/17/2024 9:00 AM EDT Office Visit [address] [place] Mccarthy [address] [place], Pharmacist [address] [place] [address] [address] [place] Mccarthy [address] 01/25/2024 8:00 AM EDT PulmDiagnostic Pulmonary Function Lab, [facility] 132 [facility] [place] ROMERO [address] [place], Pft 132 [facility] [place] Romero [address] 02/16/2024 10:00 AM EDT Office Visit Sleep Disorders Ctr [facility] [address] [facility] [place] Romero [phone] Debby Cornejo, 132 [facility] [place] Rom[place] [address] 03/02/2024 8:00 AM EDT Laboratory [facility], [address] [phone] [place], Lab [facility] [address] [place] [address] 03/07/2024 9:00 AM EDT Office Visit [address] [place] Mccarthy [address] Javy Moscoso DO [address] [place] Mccarthy [address] 03/08/2024 8:00 AM EDT Laboratory Laboratory Patient Service [place], [address] [phone] Hodamaría elena, Lab [facility] [address] [facility] ROBY, [place] [address] 03/15/2024 11:00 AM EDT Office Visit Hematology/Oncolog y [place] Jacquelyn Adamson 200 [facility] [place] Sharma [phone] [facility]att [facility]ullen [facility] [address] 04/27/2024 9:30 AM EDT Hospital Encounter ENDO [facility], Endoscopy Room [facility] [address] [place]on [phone] Dominick Amador MD [address] [place] [address] 04/27/2024 9:30 AM EDT - 04/27/2024 10:15 AM EDT Surgery ENDO [facility], Endoscopy Room [facility] [address] [place] [phone] Dominick Amador MD [address] [place] [address] COLONOSCOPY FLEXIBLE PROXIMAL DIAGNOSTIC 07/24/2024 2:00 PM EST Office Visit Nephrology, [facility] 200 [facility] [place] Sharma [address] Augusto Lerner MD 200 [facility] [place] Sharma [address] 10/03/2024 11:00 AM EST Nurse Only Ancillary [address], [place] [address] [place] Mccarthy [address] [place], Nurse Annual Wellness Visit [address] [place] Mccarthy [phone] Scheduled Procedures Name Priority Associated Diagnoses Date/Ti [...] COPD 03/28/2024 03/28/2023 CKD PHOS USE SMARTSET 93896 05/05/202402/2023, 02/02/2023, 01/11/2022, Additional history exists Diabetic Foot Exam 06/16/2024 06/16/2023, 06/16/2023 Diabetic Eye Exam 08/24/2024 08/24/2023, , 11/02/2022, Additional history exists CKD HGB USE SMARTSET 75946 09/08/202409/08, 09/08/2023, 08/04/2023, Additional history exists Albumin/Creatinine [...] the patient have Health Care Power of Miniature Set Designer? No Care Teams Medical Research Tech Relationship Specialty Start Date End Date Javy Moscoso DO [address] [place] Mccarthy [phone] PCP - General Family Medicine 07/04/23 documented as of this encounter
--- OUTSIDE RECORDS SUMMARY | 2024-02-25 03:35 | External Medical Summary | Summary of Care ---
Author Name Unknown Organization [facility] Address [address] [place] [address] Phone [phone] Care Team Providers Care [place] Machine Operator Name Role Phone Javy Moscoso DO Primary Care Provider [phone] Reason for Visit * Reason Onset Date Comments Blood Glucose Monitoring 12/12/2023 Encounter Details Date Type Department Care Team (Late st Contact Info) Description 12/12/2023 Telephone Pharmacy, [place] [address] [place] Mcc[place] [address] Hans Kaba, formerly [facility] [address] [place] M[place] [address] Blood Glucose Monitoring Allergies [...] 09/08/2023 Active Vitamin D (Ergocalciferol) 1.25 MG (94191 UT) Oral Capsule (Drisdol)Indications :Vitamin D deficiency Take 1 Capsule by mouth Every Month. 6 Capsule 0 09/08/2023 03/06/2024 Active Team EverestTouch Ultra In Vitro Strip (Glucose Blood) USE [...] morning. 90 Capsule 2 10/04/2023 Active Pen [place] 31G X 5 MMIndications:Type 2 diabetes mellitus [...] 10 days. E11.9 0 Active Dexcom G7 Sider Device Use as directed. Use as directed [...] Bilateral impacted cerumen 10/22/2022 Atherosclerosis of [place] co ronary artery without angina pectoris [...] mRNA, LNP-s, No Pre serve, 2-Dose Series (SmartMenuCard) 07/03/2021,12/27/2020,12/06/2020 COVID-19, MRNA-LNP, 23-24, P F, 30 MCG/0.3 mL, 12 YRS AND ABOVE, IM (PFIZER-Comirnaty) 06/16/2023 Pneumococcal Conjugate Vacci ne, 20-valent ([id number]) 12/07/2022 Pneumococcal Polysaccharide PPV23 (Pneumovax) 09/08/2020 Season [...] 8:00 AM EDT Laboratory Laboratory Patient Service [address] [phone] [place], Lab [address] [address] 01/17/2024 9:00 AM EDT Office Visit Family Practice [address], [place] [address] [place] [place] M[place] [address] [place] Pharmacist [address] [place] Mcc[place] [address] 01/25/2024 8:00 AM EDT [facility] [address] [facility] [place] [address] [place], Pft [facility] [place] [address] 02/16/2024 10:00 AM EDT Office Visit Sleep Disorders Ctr [facility] [address] [facility] [place] Christians[place] [phone] Debby Cornejo, DO 132 [facility] [place] [address] 03/02/2024 8:00 AM EDT Laboratory Laboratory Patient Service [facility], [place] [address] [place] [phone] [facility], Lab [facility] [address] [place] [address] 03/07/2024 9:00 AM EDT Office Visit Family Practice [address] [place] [address] [address] [place] Mccarthy [phone] Javy Moscoso DO [address] [place] Mccarthy [phone] 03/08/2024 8:00 AM EDT Laboratory Laboratory Patient Service [place], [place] [address] [place] [phone] [place], [facility] [place] [address] [place] [address] 03/15/2024 11:00 AM EDT Office Visit Hematology/Oncolog y [place] [address] [place] [phone] Katt Mullen CRNP [address] [place] [address] 04/27/2024 9:30 AM EDT Hospital Encounter ENDO [facility], Endoscopy Room [facility] [address] [place] [address] Dominick Amador MD [address] [place] [address] 04/27/2024 9:30 AM EDT - 04/27/2024 10:15 AM EDT Surgery ENDO [facility], Endoscopy Room [facility] [address] [place] [phone] Dominick Amador MD [address] [place] [address] COLONOSCOPY FLEXIBLE PROXIMAL DIAGNOSTIC 07/24/2024 2:00 PM EST Office Visit Nephrology, [facility] [address] [place] Sharma [address] Augusto Lerner MD [address] [place] Sharma [address] 10/03/2024 11:00 AM EST Nurse Only Ancillary [address], [place] [address] [place] [place] Mcc[place] [address] [place], Nurse Annual Wellness Visit [address] [place] Mcc[place] [address] Scheduled Procedures Name Priority [...] 12/15/2020, Additional history exists GFR 03/08/2024 09/08/2023, 0 02/2023, 05/05/2023, Additional history exists HbA1c 03/08/2024 09/08/2023, 0 02/2023, 02/02/2023, Additional history exists O2 ASSESSMENT COMPLETED IN PAST YEAR FOR COPD 03/28/2024 03/28/2023 CKD PHOS USE SMARTSET 63498 05/05/2024 09/0 02/2023, 02/02/2023, 01/11/2022, Additional history exists Diabetic Foot Exam 06/16/2024 06/16/2023, 06/16/2023 Diabetic Eye Exam 08/24/2024 08/24/2023, , 11/02/2022, Additional history exists CKD HGB USE SMARTSET 99065 09/08/202409/08, 09/08/2023, 08/04/2023, Additional history exists Albumin/Creatinine [...] the patient have Health Care Power of Patent Examiner? No Care Teams [place] Machine Operator Relationship Specialty Start Date End Date Javy Moscoso DO [address] [place] [place] Mccarthy [phone] PCP - General Family Medicine 07/04/23 documented as of this encounter
--- OUTSIDE RECORDS SUMMARY | 2024-02-25 03:35 | External Medical Summary | Summary of Care ---
Author Name Unknown Organization [facility] Address [address] [facility] [place] [address] Phone [phone] Care Team Providers Care Surgery Attendant Name Role Phone Javy Moscoso DO Primary Care Provider [phone] Reason for Visit * Reason Comments Follow Up Eyes hurt behind the m, 6 months. 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 ([facility]); Grade I diastolic dysfunction; Atherosclerosis of [place] coronary artery of [place] heart without angina pectoris; Chronic kidney disease, stage 3b ([facility]); ILD (interstitial lung disease) ([facility]); COPD, group A, by GOLD 2017 classification ([facility]); GUS on CPAP; Dyslipidemia, goal LDL below 70; AVM (arteriovenous malformation) of small bowel, acquired; Iron deficiency anemia due to chronic blood loss; Carcinoid tumor of rectum, unspecified whether malignant; Spinal stenosis of lumbar region without neurogenic claudication; Chronic maxillary sinusitis; Chronic pain of left knee; Status post total left knee replacement Allergies Active Allergy Reactions Criticality Noted Date [...] 09/08/2023 Active Vitamin D (Ergocalciferol) 1.25 MG (03769 UT) Oral Capsule (Drisdol)Indication s:Vitamin D deficiency Take 1 Capsule by mouth Every Month. 6 Capsule 0 09/08/2023 4 Active ZEEF.comuch Ultra In Vitro Strip (Glucose Blood) USE DIRECTED UP TO THREE TIMES DAILY FOR HOME GLUCOSE TESTING 300 Strip 3 09/08/2023 Active [employer] Ultra 2 w/Device Kit USE DIRECTED TO [...] morning. 90 Capsule 2 10/04/2023 Active Pen [place] 31G X 5 MMIndications:Type 2 diabetes mellitus [...] the tongue in the morning. 0 Active Fluticasone Propionate 50 MCG/ACT Nasal Suspension (Flonase)Indication s:Chronic maxillary sinusitis Administer 2 Sprays into each nostril in the morning. 18.2 g 3 12/06/2023 Active Insulin Glargine Solostar 100 UNIT/ML Subcutaneous Solution Pen-injector (Lantus SoloStar)Indication s:Type 2 diabetes mellitus with hyperglycemia, with long-term current use of insulin (HCC) Inject 20 Units under the skin at bedtime. 15 mL 3 11/10/2023 Discontinue d(Refill) documented as of this encounter (statuses as [...] 12/07/2022 Bilateral impacted cerumen 10/22/2022 Atherosclerosis of [place] co ronary artery without angina pectoris 07/15/2022 [...] Per CKD protocol [facility] 10/21/2021 07/08/2022 COPD, [...] (PFIZER-Comirnaty) 06/16/2023 Pneumococcal Conjugate Vacci ne, 20-valent ([id number]) 12/07/2022 Pneumococcal Polysaccharide PPV23 (Pneumovax) 09/08/2020 Season Influenza, Quad, PF, Adjuvanted, 65+ Yrs, IM (FLUAD) 06/03/2020 Seasonal Influenza Virus Vac cine, Unspecified Formulation 05/22/2019 Seasonal Influenza, Quadriva lent Hd (Fluzone Hd) 06/16/2023,05/06/2022,06/13/2021 TDAP (age 10 and older)(Boostrix) 03/17/2021 Zoster Vaccine Recombinant (Shingrix) 11/17/2021 documented as of this encounter Social History Tobacco Use Types Packs/Day Years Used Date Smoking Tobacco: Former Cigarettes 1 17 09 [id number] Passive Smoke Exposure: Past Smokeless Tobacco: Current Chew Tobacco Cessation:Ready to Q uit: Not Asked; Counseling Given: Yes Comments:03/11/23 1 can per 1-2 days KHB [...] Sign Reading Time Taken Comments Blood Pressure 132/58 12/06/2023 9:05 AM EDT Pulse 57 12/06/2023 9:05 AM EDT Temperature 36.3 C (97.3 F) 12/06/2023 9:05 AM ED T Respiratory Rate - - Oxygen Saturation 95% 12/06/2023 9:05 AM EDT Inhaled Oxygen Concentration - - Weight 104.2 kg (229 lb 12.8 oz) 12/06/2023 9:05 AM EDT Height - - Body Mass Index 33.94 09/28/2023 11:35 AM EST documented in this encounter Functional Status Functional [...] as of this encounter Progress Notes * Javy Moscoso, - 12/06/2023 9:35 AM EDT Images from the original note were not included. History of Present Illness Walker Mancini is a 73 year old male that presents for Follow Up (Eyes hurt behind them, 6 months.Just had recent eye exam) Patient is a 73-year-old male here for medical follow-up. Patient has a history of diabetes mellitus type 2, CKD 3, hypertension, coronary artery disease, COPD, interstitial lung disease, GUS on CPAP, dyslipidemia, AV malformation of small bowel, iron-deficiency anemia due to chronic blood loss, carcinoid tumor of rectum, lumbar spinal stenosis, and osteoarthritis of knees status post left knee replacement. Patient feels generally well and is following a diet exercise program. Patient is compliant with CPAP and is tolerating well. Patient denies polyuria polydipsia or blurred vision. Patient denies hypoglycemia. Patient complains of sinus pressure and pain. Patient denies fatigue fever chills or sweats. Patient denies sore throat or earache. Patient denies cough or sputum. Patient denies chest pain shortness breath palpitations or edema. Patient denies abdominal pain nausea vomiting diarrhea constipation. Patient denies urinary frequency dysuria urgency or hematuria. Patient complainsof chronic intermittent low back pain. Patient complains of left knee pain and stiffness. Patient denies joint swelling or rash Patient denies dizziness weakness or numbness. Patient denies skin rashor lesions. Review systems otherwise negative Physical Exam Vitals: 12/06/23 0905 Temp: 36.3 C (97.3 F) Pulse: 57 SpO2: 95% BP: 132/58 BP Readings from Last 3 Encounters: 12/06/23 132/58 12/01/23 132/70 11/03/23 136/73 Wt Readings from Last 3 Encounters: 12/06/23 104.2 kg (229 lb 12.8 oz) 12/01/23 105.7 kg (233 lb 1.6 oz) 11/03/23 105.9 kg (233 lb 6.4 oz) BMI Readings from Last 3 Encounters: 12/06/23 33.94 kg/m 12/01/23 34.42 kg/m 11/03/23 34.47 kg/m BP 132/58 (BP Site: Left Arm, BP Position: Sitting) | Pulse 57 | Temp 36.3 C (97.3 F) | Wt 104.2 kg (229 lb 12.8 oz) | SpO2 95% | BMI 33.94 kg/m | BSA 2.25 m General: alert, healthy, and no distress Head: Normocephalic, No masses, lesions, tenderness or abnormalities Eye Exam: PERRLA, extraocular movements intact, conjunctiva are pink and non- injected, sclera clear Ears: External ears normal, Canals clear, TM's Normal Nose: no mucosal erythema, no mucosal edema, no purulent discharge, right maxillary sinus tenderness to percussion Oropharynx: no exudate, no erythema, lips, buccal mucosa, and tongue normal, and mucous membranes are moist Neck: supple, no adenopathy, no bruits, thyroid normal size, non-tender, without nodularity Lymph: no palpable lymphadenopathy Heart: regular rate & rhythm, no murmur, and no gallops Lungs: chest symmetric with normal AP diameter, no chest deformities noted, no chest wall tenderness, lungs clear to auscultation Pulses: carotid=2/4 w/o bruits Abdomen: abdomen soft, obese, non-tender, normal bowel sounds, and no masses or organomegaly Back: back symmetric, no curvature, no costovertebral angle tenderness, lumbar paravertebral musclespasm and tenderness decreased range of motion lumbar flexion L1-L5 Extremities: Tenderness palpation left knee decreased range of motion flexion, no joint effusion, no edema cyanosis or clubbing Neuro Exam: alert & oriented x 3 with fluent speech, no focal motor/sensory deficits, gait normal, reflexes normal and symmetric Skin: skin color, texture, turgor are normal, no rashes or significant lesions I have reviewed the following results: Iron, ferritin,, CMP, Hemoglobin A1C, CBC, Albumin / Creatinine Ratio, Urine, and 25-Hydroxy Vit D Assessment and Plan Type 2 diabetes mellitus with stage 3b chronic kidney disease, without long-term current use of insulin ([facility]) Increase Lantus insulin 22 units HS Follow with [place] pharmacist for further insulin dose adjustment. 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 Continue present medication Losartan 100 mg 1 tab once daily Carvedilol 25 mg 1 tab twice daily Torsemide 20 mg 1 tab once daily Atherosclerosis of [place] coronary artery of [place] heart without angina pectoris Stable Continue present medication Atorvastatin 40 mg 1 tab once daily - LIPID PANEL WITH DIRECT LDL IF TG IS HIGH; Future Chronic kidney disease, stage 3b ([facility]) Stable Avoid NSAIDs Continue to monitor renal function ILD (interstitial lung disease) ([facility]) Stable COPD, group A, by GOLD 2017 classification ([facility]) Stable GUS on CPAP Stable Continue CPAP Dyslipidemia, goal LDL below 70 Stable Continue present medication Atorvastatin 40 mg 1 tab once daily Low-fat low-cholesterol high-fiber diet and exercise - LIPID PANEL WITH DIRECT LDL IF TG IS HIGH; Future AVM (arteriovenous malformation) of small bowel, acquired Stable Continue present medical therapy Octreotide acetate 50 mcg/mL inject 50 mcg subcutaneous twice daily Iron deficiency anemia due to chronic blood loss Stable Continue present medication Pantoprazole 40 mg 1 tab once daily Octreotide acetate 50 mcg/mL inject 50 mcg subcutaneous twice daily Follow with Hematology Carcinoid tumor of rectum, unspecified whether malignant Follow with gastroenterology Scheduled repeat colonoscopy 04/27/2024 Spinal stenosis of lumbar region without neurogenic claudication Stable Continue present medication Gabapentin 100 mg 1 cap AM , gabapentin 600 mg 1 cap noon and 1 cap bedtime. Modified home therapeutic exercise Chronic maxillary sinusitis - start Fluticasone Propionate 50 MCG/ACT Nasal Suspension (Flonase); Administer 2 Sprays into eachnostril in the morning. Saline irrigation of sinuses Chronic pain of left knee - XR KNEE 4 OR MORE VIEWS Status post total left knee replacement \\ - XR KNEE 4 OR MORE VIEWS Wrap-Up Follow Up: Return in about 3 months (around 03/06/2024) for Clinic Visit, Labs 2-5 Days Before Next Visit. | For: Clinic Visit, Labs 2-5 Days Before Next Visit Time: I spent a total of 40-54 minutes (exact time 40 mins) on the date of service in preparation, delivery, and documentation of the care provided to Walker Mancini excluding any time spent in the performance of separately billed services. documented in this encounter Plan of Treatment Upcoming Encounters Date Type Department Care Team (Late st Contact Info) Description 12/15/2023 8:00 AM EDT Laboratory Laboratory Patient Service [address] [phone] [place], [place] [address] [place] [address] 01/17/2024 9:00 AM EDT Office Visit Family Practice [address] [place], [place] [address] [address] [place] [address] [place], Pharmacist [address] [place] [address] 01/25/2024 8:00 AM EDT PulmDiagnostic Pulmonary Function Lab, [facility] [address] [place] [address] [place], [address] [address] [place] [address] 02/16/2024 10:00 AM EDT Office Visit Sleep Disorders Ctr [facility] 132 [facility] [place] [address] Debby Cornejo, DO 132 [facility] [place] [address] 03/02/2024 8:00 AM EDT Laboratory Laboratory [facility], [place] [address] [place] [phone] [place], [place] [address] [place] [address] 03/07/2024 9:00 AM EDT Office Visit Family Practice [address] [place] [address] [address] [place] [address] Javy Moscoso DO [address] [place] [address] 03/08/2024 8:00 AM EDT Laboratory Laboratory Patient Service [place], [place] [address] [place] [phone] [place], [place] [address] [place] [address] 03/15/2024 11:00 AM EDT Office Visit [facility]colog y [facility] [address] [place] [address] Katt Mullen CRNP [address] [place] [address] [place] [address] 04/27/2024 9:30 AM EDT Hospital Encounter ENDO [facility], Endoscopy Room [facility] [address] [place] [address] Dominick Amador MD [address] [place] [address] 04/27/2024 9:30 AM EDT - 04/27/2024 10:15 AM EDT Surgery ENDO [facility], Endoscopy Room [facility] [address] [place] [address] Dominick Amador MD [address] [place] [address] COLONOSCOPY FLEXIBLE PROXIMAL DIAGNOSTIC 07/24/2024 2:00 PM EST Office Visit Nephrology, [facility] [address] [facility] [place] [address] Augusto Lerner MD [address] [facility] [place] [address] 10/03/2024 11:00 AM EST Nurse Only Ancillary [address], [place] [address] [place] [address] [place], Nurse Annual Wellness Visit [address] [place] [id number] Pending Results Name Type Priority Associated Diagnoses Date /Time XR KNEE 4 OR MORE VIEWS Medical Imaging Routine Chronic pain of left knee Status post total left knee replacement 12/06/2023 10:28 AM EDT Scheduled Orders Name Type Priority Associated Diagnoses Orde r Schedule HEMOGLOBIN A1C Lab Routine Type 2 diabetes mellitus with stage 3b chronic kidney disease, without long-term current use of insulin (HCC) Type 2 diabetes mellitus with hemoglobin A1c goal of less than 7.5% (HCC) Expected: 03/06/2024 (Approximate), Expires: 12/05/2024 LIPID PANEL WITH DIRECT LDL IF TG IS HIGH Lab Routine Atherosclerosis of [place] coronary artery of [place] heart without angina pectoris Dyslipidemia, goal LDL below 70 Expected: 03/06/2024, Expires: 12/05/2024 Scheduled Procedures Name Priority Associated Diagnoses Date/Ti [...] COPD 03/28/2024 03/28/2023 CKD PHOS USE SMARTSET 99224 05/05/202402/2023, 02/02/2023, 01/11/2022, Additional history exists Diabetic Foot Exam 06/16/2024 06/16/2023, 06/16/2023 Diabetic Eye Exam 08/24/2024 08/24/2023, , 11/02/2022, Additional history exists CKD HGB USE SMARTSET 73341 09/08/202409/08, 09/08/2023, 08/04/2023, Additional history exists Albumin/Creatinine [...] disease, without long-term current use of insulin (HCC)- Primary Type 2 diabetes mellitus with hemoglobin A1c goal of less than 7.5% (HCC) 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) Grade I diastolic dysfunction Atherosclerosis of [place] coronary artery of [place] heart without angina pectoris Chronic kidney disease, stage 3b (HCC) ILD (interstitial lung disease) (HCC) Postinflammatory pulmonary fibrosis COPD, group A, by GOLD 2017 classification (HCC) GUS on CPAP Obstructive sleep apnea (adult) (pediatric) Dyslipidemia, goal LDL below 70 Other and unspecified hyperlipidemia AVM (arteriovenous malformation) of small bowel, 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 Iron deficiency anemia secondary to blood loss (chronic) Carcinoid tumor of rectum, unspecified whether malignant Spinal stenosis of lumbar region without neurogenic claudication Spinal stenosis, lumbar region, without neurogenic claudication Chronic maxillary sinusitis Chronic pain of left knee Pain in joint, lower leg Status post total left knee replacement Iron deficiency anemia Iron deficiency anemia, unspecified [...] the patient have Health Care Power of Wireless Technician? No Care Teams Surgery Attendant Relationship Specialty Start Date End Date Javy Moscoso DO [address] [place] [phone] PCP - General Family Medicine 07/04/23 documented as of this encounter"
--- OUTSIDE RECORDS SUMMARY | 2024-02-25 03:36 | External Medical Summary | Summary of Care ---
Author Name Unknown Organization [facility] Address [address] [place] [place] [address] Phone [phone] Care Team Providers Care Hydraulic Barker Operator Name Role Phone Javy Moscoso DO Primary Care Provider [phone] Reason for Visit * Reason Onset Date Comments Advice 12/09/2023 Encounter Details Date Type Department Care Team (Late st Contact Info) Description 12/09/2023 Telephone Family Practice [address] [facility] [place] [address] [place] [address] Javy Moscoso DO [address] [place] [place] [address] Advice Allergies Active Allergy Reactions Criticality Noted Date Comments Lisinopril Unknown Low 11/15/2022 Verapamil Medium 06/26/2020 Heart Block documented as of this encounter (statuses as of 12/09/2023) Medications Medication Sig Dispensed Refills Start Date [...] 09/08/2023 Active Vitamin D (Ergocalciferol) 1.25 MG (64674 UT) Oral Capsule (Drisdol)Indications :Vitamin D deficiency Take 1 Capsule by mouth Every Month. 6 Capsule 0 09/08/2023 03/06/2024 Active [employer] Ultra In Vitro Strip (Glucose Blood) USE [...] morning. 90 Capsule 2 10/04/2023 Active Pen [place] 31G X 5 MMIndications:Type 2 diabetes mellitus [...] current use of insulin ([facility]) Inject 22 Units under the skin at bedtime. 15 mL 5 12/06/2023 Active Dexcom G7 Sensor Use as directed. Use as directed to monitor blood sugars daily. Replace sensor every 10 days. E11.9 0 Active Dexcom G7 Open Hearth Furnace Operator Device Use as directed. Use as directed to monitor blood sugars daily 0 Active Fluticasone Propionate 50 MCG/ACT Nasal Suspension (Flonase)Indications :Chronic maxillary sinusitis Administer 2 Sprays into each nostril in the morning. 18.2 g 3 12/06/2023 Active documented as of this encounter (statuses as of 12/09/2023) Active Problems Problem Noted Date Diagnosed Date [...] 12/07/2022 Bilateral impacted cerumen 10/22/2022 Atherosclerosis of [place] co ronary artery without angina pectoris 07/15/2022 [...] as of this encounter (statuses as of 12/09/2023) Resolved Problems Problem Noted Date Diagnosed Date [...] as of this encounter (statuses as of 12/09/2023) Immunizations Name Administration Dates Next Due COVID-19 mRNA, LNP-s, No Pre serve, 2-Dose Series (Appiny) 07/03/2021,12/27/2020,12/06/2020 COVID-19, MRNA-LNP, 23-24, P F, 30 MCG/0.3 mL, 12 YRS AND ABOVE, IM (PFIZER-Comirnaty) 06/16/2023 Pneumococcal Conjugate Vacci ne, 20-valent ([id number]) 12/07/2022 Pneumococcal Polysaccharide PPV23 (Pneumovax) 09/08/2020 Season [...] encounter Miscellaneous Notes * Telephone Encounter - Henrietta Jurado PHARM Tech - 12/09/2023 9:09 AM EDT Pt calling to reach [facility]. Transferred to [place]. Thank you, Henrietta Jurado Pulmonology Technician I [facility] ([facility]) (Formerly Telepharmacy) 12/09/2023,9:09 AM documented in this encounter Plan of Treatment Upcoming Encounters Date Type Department Care Team (Late st Contact Info) Description 12/12/2023 9:20 AM EDT Telemedicine Pulmonary Medicine, [place] [address] [place] [address] Iván Nielsen MD [address] [place] [address] [place], Telemed Pulm Gw 132 [facility] [place] [address] 12/15/2023 8:00 AM EDT Laboratory Laboratory Patient Service Center, [address] [phone] [address] 01/17/2024 9:00 AM EDT Office Visit Family Practice [address], [place] [address] [place] [place] [address] [place], Pharmacist [address] [place] [address] 02/16/2024 10:00 AM EDT Office Visit Sleep Disorders Ctr [facility] 132 [facility] [place] [phone] Debby Cornejo, 132 [facility] [place] [address] 03/02/2024 8:00 AM EDT Laboratory Laboratory Patient Service Center, [place] [address] [place] [address] [place], [facility] [place] [address] [place] [address] 03/07/2024 9:00 AM EDT Office Visit [address], [place] [address] [place] [place] [address] Javy Moscoso DO [address] [place] [address] 03/08/2024 8:00 AM EDT Laboratory Laboratory Patient Service [place], [place] [address] [place] [address] [place], [facility] [place] [address] [place] [address] 03/15/2024 11:00 AM EDT Office Visit Hematology/Oncolog y [facility] [place] [facility] [place] [address] Katt Mullen CRNP [address] [place] [address] [place] [address] 04/27/2024 9:30 AM EDT Hospital Encounter ENDO [facility], Endoscopy Room [facility] [address] [place] [phone] Dominick Amador MD [address] [place] [address] 04/27/2024 9:30 AM EDT - 04/27/2024 10:15 AM EDT Surgery ENDO [facility], Endoscopy Room [facility] [address] [place] [phone] Dominick Amador MD [address] [place] [address] COLONOSCOPY FLEXIBLE PROXIMAL DIAGNOSTIC 07/24/2024 2:00 PM EST Office Visit Nephrology, [facility] [address] [facility] [address] [place] [address] Augusto Lerner MD 200 [facility] [place] [address] 10/03/2024 11:00 AM EST Nurse Only Ancillary [address], [place] [address] [place] [address] [place], Nurse Annual Wellness Visit [address] [place] [phone] Scheduled Procedures Name Priority Associated Diagnoses Date/Ti [...] COPD 03/28/2024 03/28/2023 CKD PHOS USE SMARTSET 00987 05/05/2024 0902/2023, 02/02/2023, 01/11/2022, Additional history exists Diabetic Foot Exam 06/16/2024 06/16/2023, 06/16/2023 Diabetic Eye Exam 08/24/2024 08/24/2023, , 11/02/2022, Additional history exists CKD HGB USE SMARTSET 37506 09/08/202409/08, 09/08/2023, 08/04/2023, Additional history exists Albumin/Creatinine [...] the patient have Health Care Power of Personnel Monitor? No Care Teams Hydraulic Barker Operator Relationship Specialty Start Date End Date Javy Moscoso DO [address] [place] [address] PCP - General Family Medicine 07/04/23 documented as of this encounter
--- OUTSIDE RECORDS SUMMARY | 2024-02-25 03:36 | External Medical Summary | Summary of Care ---
Author Name Unknown Organization [facility] Address [address] , [place] Care Team Providers Care Skein Winding Operator Name Role Phone Javy Moscoso DO Primary Care Provider [phone] Reason for Visit * Reason Onset Date Comments Advice 12/09/2023 Encounter Details Date Type Department Care Team (Late st Contact Info) Description 12/09/2023 Telephone Pharmacy, [facility] [place] [address] [facility] [place] [address] [place], Pharmacist [address] [place] [address] Advice Allergies Active Allergy [...] 09/08/2023 Active Vitamin D (Ergocalciferol) 1.25 MG (04534 UT) Oral Capsule (Drisdol)Indications :Vitamin D deficiency Take 1 Capsule by mouth Every Month. 6 Capsule 0 09/08/2023 03/06/2024 Active Keep HoldingsTouch Ultra In Vitro Strip (Glucose Blood) USE DIRECTED UP TO THREE TIMES DAILY FOR HOME GLUCOSE TESTING 300 Strip 3 09/08/2023 Active Keep HoldingsTouch Ultra 2 w/Device Kit USE DIRECTED TO [...] morning. 90 Capsule 2 10/04/2023 Active Pen [place] 31G X 5 MMIndications:Type 2 diabetes mellitus [...] 10 days. E11.9 0 Active Dexcom G7 Cement Crusher Operator Device Use as directed. Use as [...] 12/07/2022 Bilateral impacted cerumen 10/22/2022 Atherosclerosis of [place] co ronary artery without angina pectoris 07/15/2022 [...] mRNA, LNP-s, No Pre serve, 2-Dose Series ([employer]) 07/03/2021,12/27/2020,12/06/2020 COVID-19, MRNA-LNP, 23-24, P F, 30 MCG/0.3 mL, 12 YRS AND ABOVE, IM (PFIZER-Comirnaty) 06/16/2023 Pneumococcal Conjugate Vacci ne, 20-valent ([id number]) 12/07/2022 Pneumococcal Polysaccharide PPV23 (Pneumovax) 09/08/2020 Season Influenza, Quad, PF, Adjuvanted, 65+ Yrs, IM (FLUAD) 06/03/2020 Seasonal Influenza Virus Vac cine, Unspecified Formulation 05/22/2019 Seasonal Influenza, Quadriva lent Hd (Fluzone Hd) 06/16/2023,05/06/2022,06/13/2021 TDAP (age 10 and older)(Boostrix) 03/17/2021 Zoster Vaccine Recombinant (Shingrix) 11/17/2021 documented as of this encounter Social History Tobacco Use Types Packs/Day Years Used Date Smoking Tobacco: Former Cigarettes 1 20 1 975 - 1994 Passive Smoke Exposure: Past [...] Notes * Telephone Encounter - Hans Kaba [facility] - 12/09/2023 4:18 PM EDT Patient Phone Numbers Spoke to patient. Reports Dexcom reading in 200-300's, finger sticks much lower. Recommend replace sensor. Hans Kaba PharmD Clinical Pharmacist [facility] 12/09/2023 4:27 PM * Telephone Encounter - Krysten Bravo CPhT - 12/09/2023 9:21 AM EDT Caller's name: Cyndi Preferred call back number(OFFICE NUMBER FOR ): [phone] Reason for call: patient is now wearing a Dexcom and Cyndi states the alarms keep going off but when he checks with the fingerstick meter there is a big difference in the readings. Krysten Bravo CPhT, [place] Drawer Liner II [facility] ([facility] (formerly Telepharmacy) [phone] [address] ext [phone] documented in this encounter Plan of Treatment Upcoming Encounters Date Type Department Care Team (Late st Contact Info) Description 12/12/2023 9:20 AM EDT Telemedicine Pulmonary Medicine, [place] [address] [place] [address] Iván Nielsen MD [address] [place] [address] Cart, Telemed Pulm Gw [address] [place] [address] 12/15/2023 8:00 AM EDT Laboratory Laboratory Patient Service [address] [phone] [address] 01/17/2024 9:00 AM EDT Office Visit Family Practice [address] [place] [address] [place] [address] [place] Pharmacist [address] [place] [address] 02/16/2024 10:00 AM EDT [facility] [address] [place] [phone] Debby Cornejo DO [address] [place] [address] 03/02/2024 8:00 AM EDT Laboratory Laboratory Patient Service Center, [address] [phone] [place], Lab Lock [address] [place] [address] 03/07/2024 9:00 AM EDT Office Visit Family [facility] [place] [address] [place] [address] Javy Moscoso DO [address] [place] [address] 03/08/2024 8:00 AM EDT Laboratory Laboratory Patient Service [place], [place] [address] [place] [phone] [place] [facility] [address] [place] [address] 03/15/2024 11:00 AM EDT Office Visit Hematology/Oncolog y Екатерина [place] [address] [place] [phone] Katt Mullen CRNP [address] [place] [address] [place] [address] 04/27/2024 9:30 AM EDT Hospital Encounter ENDO [facility], Endoscopy Room [facility] [address] [place] [phone] Dominick Amador MD [address] [place] [address] 04/27/2024 9:30 AM EDT - 04/27/2024 10:15 AM EDT Surgery ENDO [facility], Endoscopy Room [facility] [address] [place] [phone] Dominick Amador MD [address] [place] [address] COLONOSCOPY FLEXIBLE PROXIMAL DIAGNOSTIC 07/24/2024 2:00 PM EST Office Visit Nephrology, [facility] [address] [place] [address] Augusto Lerner MD [address] [place] [address] 10/03/2024 11:00 AM EST Nurse Only Ancillary [address] [place] [address] [place] [phone] [place], Nurse Annual Wellness Visit [address] [place] [address] Scheduled Procedures Name Priority [...] COPD 03/28/2024 03/28/2023 CKD PHOS USE SMARTSET 70040 05/05/2024 090 02/2023, 02/02/2023, 01/11/2022, Additional history exists Diabetic Foot Exam 06/16/2024 06/16/2023, 06/16/2023 Diabetic Eye Exam 08/24/2024 08/24/2023, , 11/02/2022, Additional history exists CKD HGB USE SMARTSET 51127 09/08/202409/08, 09/08/2023, 08/04/2023, Additional history exists Albumin/Creatinine [...] the patient have Health Care Power of Quiller Hand? No Care Teams Skein Winding Operator Relationship Specialty Start Date End Date Javy Moscoso DO [address] [place] [address] PCP - General Family Medicine 07/04/23 documented as of this encounter
--- OUTSIDE RECORDS SUMMARY | 2024-02-25 03:36 | External Medical Summary | Summary of Care ---
Author Name Unknown Organization [facility] Address [address] [place] [address] Phone [phone] Care Team Providers Care Policy Change Clerk Name Role Phone Javy Moscoso DO Primary Care Provider + [phone] Reason for Visit * Reason Comments Follow Up Encounter Details Date Type Department Care Team (Late st Contact Info) Description 12/12/2023 9:20 AM EDT [facility] [address] [place] [address] Iván Nielsen MD [address] [place] [address] Cart, Telemed Pulm Gw [address] [facility] [place] [address] ILD (interstitial lung disease) (HCC)*; Centrilobular emphysema (HCC); GUS on CPAP; BEARDEN (dyspnea on exertion) Allergies Active Allergy [...] 09/08/2023 Active Vitamin D (Ergocalciferol) 1.25 MG (31545 UT) Oral Capsule (Drisdol)Indications :Vitamin D deficiency Take 1 Capsule by mouth Every Month. 6 Capsule 0 09/08/2023 03/06/2024 Active [employer] Ultra In Vitro Strip (Glucose Blood) USE DIRECTED UP TO THREE TIMES DAILY FOR HOME GLUCOSE TESTING 300 Strip 3 09/08/2023 Active [employer] Ultra 2 w/Device Kit USE DIRECTED TO [...] morning. 90 Capsule 2 10/04/2023 Active Pen [place] 31G X 5 MMIndications:Type 2 diabetes mellitus with hyperglycemia, with long-term current use of insulin ([facility]) Use as directed. Use as [...] ([facility]) Inject 22 Units under the skin at bedtime. 15 mL 5 12/06/2023 Active Dexcom G7 Sensor Use as directed. Use as directed to monitor blood sugars daily. Replace sensor every 10 days. E11.9 0 Active Dexcom G7 Channel Marketing Manager Device Use as directed. Use as [...] 12/07/2022 Bilateral impacted cerumen 10/22/2022 Atherosclerosis of [place] co ronary artery without angina pectoris [...] (PFIZER-Comirnaty) 06/16/2023 Pneumococcal Conjugate Vacci ne, 20-valent ([id number]) 12/07/2022 Pneumococcal Polysaccharide PPV23 (Pneumovax) 09/08/2020 Season [...] Sign Reading Time Taken Comments Blood Pressure 124/62 12/12/2023 8:59 AM EDT Pulse 69 12/12/2023 8:59 AM EDT Temperature 35.8 C (96.5 F) 12/12/2023 8:59 AM ED T Respiratory Rate 20 12/12/2023 8:59 AM EDT Oxygen Saturation 94% 12/12/2023 9:00 AM EDT ra, amb Inhaled Oxygen Concentration - - Weight 104.7 kg (230 lb 12.8 oz) 12/12/2023 8:59 AM EDT Height 177.8 cm (5' 10") 12/12/2023 8:59 AM EDT Body Mass Index 33.12 12/12/2023 8:59 AM EDT documented in this encounter Functional [...] as of this encounter Progress Notes * Iván Nielsen MD - 12/12/2023 9:20 AM EDT Walker Mancini, , 73 year old male 12/12/2023 Visit date not found (in office), 04/27/2023 (telemedicine) Patient location: CLINIC. I was not in a hospital or clinic location. After connecting through televideo, patient was verified with two unique identifiers. Patient (or authorized legal sales representative cash registers) was then informed that this was a Telemedicine visit and being conducted confidentially over secure lines. My office door was closed. No one else was in the room with me. Patient acknowledged consent and understanding of privacy and security of the Telemedicine visit, and gave permission to have atelemedicine presenter stay in the room in order to assist with the history and to conduct the examas needed. I informed the patient that I have reviewed their record in [facility] and presented the opportunity for them to ask any questions regarding the visit today. The patient agreed to participate. Walker Mancini presents for follow-up evaluation of: INTERVAL HISTORY 1. "Good." No new issues. Anemia is being addressed 2. Resting dyspnea:no issues 3. BEARDEN: min BEARDEN 4. Cough: min 5. Nocturnal Sx: using CPAP, with apparent benefit 6. Other respiratory symptoms: no wheezing, no dependent edema 7. Recent exacerbations: no 8. Interval ED or Hosp (summary notes reviewed): no 9. New med problems: no, working to regulate blood glocose 10. Weight: feels that he has lost 40#/2 years, doc 3# loss since last October, appetite is preserved 11. Smoking: no (quit 1995) 12: Exercise: stationary bike @ [employer], 30 min 13. Vaccinations: fluvax +; COVID Vax + , Pneumovax +20, +23 (no RSV yet) (With spouse) Review of patient's allergies indicates: Allergen Reactions Verapamil Heart Block Lisinopril Unknown Current Outpatient Medications Medication Sig Dispense Refill CPAP every night at bedtime. Diclofenac Sodium 1 % External Gel (Voltaren) Apply 8 g topically to affected area 2 times a day asneeded for Pain. Apply dime sized amount to lower back up to two times a day as needed for pain 150g 0 Acetaminophen 500 MG Oral Tablet (Tylenol) Take 1 to 2 tablets by mouth every 6 hours as needed Pantoprazole Sodium 40 MG Oral Tablet Delayed Release (Protonix) TAKE ONE TABLET BY MOUTH EVERY MORNING 90 Tablet 3 Losartan Potassium 100 MG Oral Tablet (Cozaar) Take 1 Tablet by mouth in the morning. 90 Tablet 3 metFORMIN HCl ER 500 MG Oral Tablet Extended Release 24 Hour (Glucophage XR) Take 1 Tablet by mouthdaily. 90 Tablet 3 Carvedilol 25 MG Oral Tablet (Coreg) Take 1 Tablet by mouth 2 times a day with morning and evening meals. 180 Tablet 3 Atorvastatin Calcium 40 MG Oral Tablet (Lipitor) TAKE ONE TABLET BY MOUTH EVERY MORNING 90 Tablet 3 Empagliflozin 25 MG Oral Tablet (Jardiance) Take 1 Tablet by mouth in the morning. 100 Tablet 3 tiZANidine HCl 2 MG Oral Tablet (Zanaflex) Take 1 Tablet by mouth at bedtime as needed for Muscle spasms. 90 Tablet 1 Vitamin D (Ergocalciferol) 1.25 MG (54026 UT) Oral Capsule (Drisdol) Take 1 Capsule by mouth Every Month. 6 Capsule 0 OneTouch Ultra In Vitro Strip (Glucose Blood) USE DIRECTED UP TO THREE TIMES DAILY FOR HOME GLUCOSE TESTING 300 Strip 3 OneTouch Ultra 2 w/Device Kit USE DIRECTED TO TEST BLOOD SUGARS 1 Each 0 Octreotide Acetate 50 MCG/ML Subcutaneous Solution Prefilled Syringe Inject 50 mcg (1 syringe) under the skin twice daily. 60 mL 5 Gabapentin 600 MG Oral Tablet (Neurontin) TAKE ONE TABLET BY MOUTH TWICE A DAY AT NOON AND AT BEDTIME IN ADDITION TO A 100MG DOSE IN THE MORNING 180 Tablet 1 Gabapentin 100 MG Oral Capsule (Neurontin) Take 1 Capsule by mouth in the morning. 90 Capsule 2 Pen [place] 31G X 5 MM Use as directed. Use as directed with glargine insulin once daily 100 Each 3 Torsemide 20 MG Oral Tablet (Demadex) TAKE ONE TABLET BY MOUTH EVERY MORNING 90 Tablet 3 Triamcinolone Acetonide 0.5 % External Cream (Aristocort) APPLY TO RASH ON ANKLE DAILY. Vitamin B-12 2500 MCG Sublingual Tablet Sublingual Place 1 Tablet under the tongue in the morning. Insulin Glargine Solostar 100 UNIT/ML Subcutaneous Solution Pen-injector (Lantus SoloStar) Inject 22 Units under the skin at bedtime. 15 mL 5 Dexcom G7 Sensor Use as directed. Use as directed to monitor blood sugars daily. Replace sensor every 10 days. E11.9 Dexcom G7 Channel Marketing Manager Device Use as directed. Use as directed to monitor blood sugars daily Fluticasone Propionate 50 MCG/ACT Nasal Suspension (Flonase) Administer 2 Sprays into each nostril in the morning. 18.2 g 3 No current facility-administered medications for this visit. (highlighted medications reviewed with patient) PHYSICAL APPEARANCE: DATA: HCT 09/08/23 - 48%, PLT 145K Creatinine 1.6 mg/dl, eGFR 45 ml/min Assessment: Mr. Mancini seems to be stable from a pulmonary point of view. As noted before, his marked dyspnea from the past likely was attributed to profound anemia. Although he has radiologic evidence of emphysema, he does not meet criteria for COPD, and withdrawal of appropriate inhalers did noteffect his status. He is evidence of a nonspecific, mild interstitial process that requires continued surveillance. He is obstructive sleep apnea that seems to be well- controlled using CPAP. Of concern, he reports that his blood sugar monitoring his consistently in the 2 to 400 range (is working with pharmacy to adjust his medications) Pulmonary Problem List: GUS BEARDEN Likely multifactorial, related to anemia, HFpEF, obesity, deconditioning, and possible pulmonary disease. History of cigarette smoking History of occupational dust exposure Other conditions that may impact pulmonary management: Obesity DM CKD3 HTN PSVT Recommendations & Plan: 1. I had a ldiscussion with Mr. Mancini and his concerning the nature of these findings and recommendations for further management 2. No specific new pulmonary intervention at this time 3. Full PFT's and 6-min walk test 4. CPAP with all sleep 5. No new respiratory medications, but continuous torsemide at the current dose Follow-up: 6 months tele video to clinic in [facility] I spent a total of 20-29 minutes (exact time 25 mins) on the date of service in preparation, delivery, and documentation of the care provided to Walker Mancini excluding any time spent in the performance of separately billed services. Iván Nielsen MD, Ph.D. Chair, Pulmonary/Critical Care Medicine PCP: JAVY MOSCOSO [place] [address] documented in this encounter Nursing Notes * Pavithra Ann LPN - 12/12/2023 8:55 AM EDT Pt for telemed pulmonary f/u. Interm History/Respiratory Symptoms Cough: rare, dry Hemoptysis: no Sinus Symptoms: no Hospitalizations: no ED Trips: no Triggers: wood smoke Nocturnal: no problems, sleeps with head slightly elevated CPAP/BiPAP/O2: CPAP at night Flu Vaccine: 2022 Pneumovax: 2020 Prevnar: 2022 COVID 19: x 4 [facility] Cat Question 12/12/2023 9:02 AM EDT - Filed by Pavithra L Seth, CHAMBER OF COMMERCE DIVISION MANAGER When do you become breathless? (0) I only get breathless with strenuous exercise How frequently do you cough? (1) Do you have phlegm in your chest? (0) - I have no phlegm (mucus) in my chest Is your chest tight? (0) - My chest does not feel tight at all How breathless do you become when walking up a hill or steps? (2) How limited are you doing activities at home? (1) How confident are you leaving home with your lung condition? (0) - I am confident leaving my home despite my condition How soundly do you sleep? (0) - I sleep soundly How much energy do you have? (2) Total MMRC Score (range: 0 - 4) 0 Total CAT Score (range: 0 - 40) 6 documented in this encounter Plan of Treatment Upcoming Encounters Date Type Department Care Team (Late st Contact Info) Description 12/15/2023 8:00 AM EDT Laboratory Laboratory [facility] Service [address] [phone] [address] 01/17/2024 9:00 AM EDT Office Visit Family Practice [address] [place] [address] [address] [place] [address] [place], Pharmacist [address] [facility] [address] [place] [address] 01/25/2024 8:00 AM EDT PulmDiagnostic Pulmonary Function Lab, [facility] [address] [place] [address] [place], [address] [place] [address] 02/16/2024 10:00 AM EDT Office Visit Sleep Disorders Ctr [facility] [address] [place] [phone] Debby Cornejo DO [address] [place] [address] 03/02/2024 8:00 AM EDT Laboratory Laboratory Patient Service [place], [place] [address] [place] [address] [place], Lab Lock [address] [place] [address] 03/07/2024 9:00 AM EDT Office Visit Family [address], [place] [address] [place] [address] Javy Moscoso DO [address] [place] [address] 03/08/2024 8:00 AM EDT Laboratory Laboratory Patient Service [place], [place] [address] [place] [phone] [place], Lab [place] [address] [place] [address] 03/15/2024 11:00 AM EDT Office Visit [facility] [phone] Katt Mullen, DIRECT MARKETING MANAGER [address] [facility] [place] [address] 04/27/2024 9:30 AM EDT Hospital Encounter ENDO [facility], Endoscopy Room [facility] [address] [place] [phone] Dominick Amador MD [address] [place] [address] 04/27/2024 9:30 AM EDT - 04/27/2024 10:15 AM EDT Surgery ENDO [facility], Endoscopy Room [facility] [address] [place] [address] Dominick Amador MD [address] [place] [address] COLONOSCOPY FLEXIBLE PROXIMAL DIAGNOSTIC 07/24/2024 2:00 PM EST Office Visit Nephrology, [facility] 200 [facility] [place] [address] Augusto Lerner MD 200 [facility] [place] [address] 10/03/2024 11:00 AM EST Nurse Only Ancillary [address], [place] [address] [place] [phone] [place], Nurse Annual Wellness Visit [address] [place] [address] Scheduled Orders Name Type Priority Associated Diagnoses Orde r Schedule SPIROMETRY B/A BRONCHODILATOR Procedures Routine ILD (interstitial lung disease) (HCC) BEARDEN (dyspnea on exertion) Expected: 12/13/2023, Expires: 01/10/2025 LUNG VOLUMES (PLETHYSMOGRAPHY) Procedures Routine ILD (interstitial lung disease) (HCC) BEARDEN (dyspnea on exertion) Expected: 12/13/2023, Expires: 01/10/2025 DIFFUSION CAPACITY (DLCO) Procedures Routine ILD (interstitial lung disease) (HCC) BEARDEN (dyspnea on exertion) Expected: 12/13/2023, Expires: 01/10/2025 PULSE OX W/ REST/EXERCISE, MULTIPLE (OP) Procedures Routine ILD (interstitial lung disease) (HCC) BEARDEN (dyspnea on exertion) Ordered: 12/12/2023 Scheduled Procedures Name Priority Associated Diagnoses Date/Ti [...] COPD 03/28/2024 03/28/2023 CKD PHOS USE SMARTSET 81547 05/05/[address]240 02/2023, 02/02/2023, 01/11/2022, Additional history exists Diabetic Foot Exam 06/16/2024 06/16/2023, 06/16/2023 Diabetic Eye Exam 08/24/2024 08/24/2023, , 11/02/2022, Additional history exists CKD HGB USE SMARTSET 72957 09/08/202409/08, 09/08/2023, 08/04/2023, Additional history exists Albumin/Creatinine [...] as of this encounter Visit Diagnoses Diagnosis ILD (interstitial lung disease) (HCC)- Primary Postinflammatory pulmonary fibrosis Centrilobular emphysema (HCC) Other emphysema GUS on CPAP Obstructive sleep apnea (adult) (pediatric) BEARDEN (dyspnea on exertion) Other dyspnea and [...] the patient have Health Care Power of Passenger Solicitor? No Care Teams Policy Change Clerk Relationship Specialty Start Date End Date Javy Moscoso DO [address] [place] [phone] PCP - General Family Medicine 07/04/23 documented as of this encounter
--- OUTSIDE RECORDS SUMMARY | 2024-02-25 03:36 | External Medical Summary | Summary of Care ---
Author Name Unknown Organization [facility] Address [address] [place] [address] Phone [phone] Care Team Providers Care Assurance Associate Name Role Phone Javy Moscoso DO Primary Care Provider + [phone] Reason for Visit * Reason Comments Follow Up Encounter Details Date Type Department Care Team (Late st Contact Info) Description 12/12/2023 9:20 AM EDT [facility] [address] [place] [address] Iván Nielsen MD [address] [place] [address] Cart, Telemed Pulm Gw 132 [facility] [place] [address] ILD (interstitial lung disease) (HCC)*; Centrilobular emphysema [...] 09/08/2023 Active Vitamin D (Ergocalciferol) 1.25 MG (28220 UT) Oral Capsule (Drisdol)Indications :Vitamin D deficiency Take 1 Capsule by mouth Every Month. 6 Capsule 0 09/08/2023 03/06/2024 Active Hobzy Ultra In Vitro Strip (Glucose Blood) USE DIRECTED UP TO THREE TIMES DAILY FOR HOME GLUCOSE TESTING 300 Strip 3 09/08/2023 Active Hobzy Ultra 2 w/Device Kit USE DIRECTED TO [...] morning. 90 Capsule 2 10/04/2023 Active Pen [place] 31G X 5 MMIndications:Type 2 diabetes mellitus with hyperglycemia, with long-term current use of insulin ([facility]) Use as directed. Use as directed [...] with long-term current use of insulin ([facility]) Inject 22 Units under the skin at bedtime. 15 mL 5 12/06/2023 Active Dexcom G7 Sensor Use as directed. Use as directed to monitor blood sugars daily. Replace sensor every 10 days. E11.9 0 Active Dexcom G7 Health Services Rn Device Use as directed. Use as directed [...] 12/07/2022 Bilateral impacted cerumen 10/22/2022 Atherosclerosis of [place] ronary artery without angina pectoris 07/15/2022 [...] (PFIZER-Comirnaty) 06/16/2023 Pneumococcal Conjugate Vacci ne, 20-valent ([id number]) 12/07/2022 Pneumococcal Polysaccharide PPV23 (Pneumovax) 09/08/2020 Season [...] two unique identifiers. Patient (or authorized legal payroll representative) was then informed that this was a [...] that I have reviewed their record in [facility] and presented the opportunity for them to ask any questions regarding the visit today. The patient agreed to participate. Walker Mancini presents for follow-up evaluation of: ILD, BEARDEN INTERVAL HISTORY 1. "Good." No new issues. [...] 13. Vaccinations: fluvax +; COVID Vax + ', Pneumovax +20, +23 (no RSV yet) (With [...] Tablet 1 Vitamin D (Ergocalciferol) 1.25 MG (08417 UT) Oral Capsule (Drisdol) Take 1 Capsule [...] in the morning. 90 Capsule 2 Pen [place] 31G X 5 MM Use as directed. [...] sensor every 10 days. E11.9 Dexcom G7 Health Services Rn Device Use as directed. Use as directed [...] 6 months tele video to clinic in [facility] I spent a total of 20-29 minutes (exact time 25 mins) on the date of service in preparation, delivery, and documentation of the care provided to Walker Mancini excluding any time spent in the performance of separately billed services. Iván Nielsen MD, Ph.D. Chair, Pulmonary/Critical Care Medicine PCP: JAVY MOSCOSO [place] Mccarthy [phone] documented in this encounter Nursing Notes * [...] 9:02 AM EDT - Filed by Pavithra Ann LPN When do you become breathless? (0) I [...] 8:00 AM EDT Laboratory Laboratory Patient Service [address] [address] [address] 01/17/2024 9:00 AM EDT Office Visit Family Practice [address] [place] [address] [address] [place] Mcc[place] [address] [place], Pharmacist 65 [facility] [address] [place] [address] 01/25/2024 8:00 AM EDT PulmDiagnostic Pulmonary Function Lab, [facility] 132 [place] [address] [place], [address] [address] [place] [address] 02/16/2024 10:00 AM EDT Office Visit [facility] [address] [place] [phone] Debby Cornejo, DO [address] [place] [address] 03/02/2024 8:00 AM EDT Laboratory Laboratory Patient Service [place], [place] [address] [place] [address] [place], Lab Lock [address] [place] [address] 03/07/2024 9:00 AM EDT Office Visit [address], [place] [address] [place]cc[place] [address] Javy Moscoso DO [address] [place] [address] 03/08/2024 8:00 AM EDT Laboratory Laboratory Patient Service [place], [place] [address] [place] [address] [place], Lab Lock [address] [place] [address] 03/15/2024 11:00 AM EDT Office Visit Hematology/Oncolog y [facility] [place] [address] [facility] [phone] Katt Mullen CRNP [address] [place] [address] 04/27/2024 9:30 AM EDT Hospital Encounter ENDO OSSC, Endoscopy Room [facility] [address] [place] [phone] Dominick Amador MD [address] [place] [address] 04/27/2024 9:30 AM EDT - 04/27/2024 10:15 AM EDT Surgery ENDO [facility], Endoscopy Room [facility] [address] [place] [address] Dominick Amador MD [address] [place] [address] COLONOSCOPY FLEXIBLE PROXIMAL DIAGNOSTIC 07/24/2024 2:00 PM EST Office Visit Nephrology, [facility] [address] [facility] [address] [place] [address] Augusto Lerner MD 200 [facility] [place] Sharma [address] 10/03/2024 11:00 AM EST Nurse Only Ancillary [address], [place] [address] [place] [address] [place], Nurse Annual Wellness Visit [address] [place] M[place] [address] Scheduled Orders Name Type [...] COPD 03/28/2024 03/28/2023 CKD PHOS USE SMARTSET 72509 05/05/202402/2023, 02/02/2023, 01/11/2022, Additional history exists Diabetic Foot Exam 06/16/2024 06/16/2023, 06/16/2023 Diabetic Eye Exam 08/24/2024 08/24/2023, , 11/02/2022, Additional history exists CKD HGB USE SMARTSET 91445 09/08/202409/08, 09/08/2023, 08/04/2023, Additional history exists Albumin/Creatinine [...] the patient have Health Care Power of Twister Doffer? No Care Teams Assurance Associate Relationship Specialty Start Date End Date Javy Moscoso DO [address] [place] Mccarthy [phone] PCP - General Family Medicine 07/04/23 documented as of this encounter
--- OUTSIDE RECORDS SUMMARY | 2024-02-25 03:36 | External Medical Summary | Summary of Care ---
Author Name Unknown Organization [facility] Address [address] [facility] [place] [address] Phone [phone] Care Team Providers Care Brush Cleaner Name Role Phone Javy Moscoso DO Primary Care Provider [phone] Reason for Visit * Reason Comments Follow Up Eyes hurt behind the m, 6 months. Just had recent eye exam Encounter Details Date Type Department Care Team (Latest Contact Info) Description 12/06/2023 9:00 AM EDT Office Visit Family Practice 65 [facility] [place] [address] [place] [address] Javy Moscoso DO [address] [place] [address] Type 2 diabetes mellitus with stage 3b chronic kidney disease, without long-term current use of insulin ([facility]; Type 2 diabetes mellitus with hemoglobin A1c goal of less than 7.5% ([facility]); 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 ([facility]); Grade I diastolic dysfunction; Atherosclerosis of [place] coronary artery of [place] heart without angina pectoris; Chronic kidney disease, stage 3b ([facility]); ILD (interstitial lung disease) ([facility]); COPD, group A, by GOLD 2017 classification ([facility]); GUS on CPAP; Dyslipidemia, goal LDL below [...] as of this encounter (statuses as of 12/08/2023) Medications Medication Sig Dispensed Refills Start Date [...] 09/08/2023 Active Vitamin D (Ergocalciferol) 1.25 MG (96364 UT) Oral Capsule (Drisdol)Indication s:Vitamin D deficiency Take 1 Capsule by mouth Every Month. 6 Capsule 0 09/08/2023 4 Active Foodistuch Ultra In Vitro Strip (Glucose Blood) USE DIRECTED UP TO THREE TIMES DAILY FOR HOME GLUCOSE TESTING 300 Strip 3 09/08/2023 Active Clinical Insight Ultra 2 w/Device Kit USE DIRECTED TO [...] morning. 90 Capsule 2 10/04/2023 Active Pen [place] 31G X 5 MMIndications:Type 2 diabetes mellitus [...] as of this encounter (statuses as of 12/08/2023) Active Problems Problem Noted Date Diagnosed Date [...] 12/07/2022 Bilateral impacted cerumen 10/22/2022 Atherosclerosis of [place] co ronary artery without angina pectoris 07/15/2022 [...] as of this encounter (statuses as of 12/08/2023) Resolved Problems Problem Noted Date Diagnosed Date Resolved Date Benign hypertension with sta ge 3b chronic kidney disease 03/08/2022 07/08/2022 Overview: Per CKD protocol [facility] 10/21/2021 07/08/2022 COPD, severity [...] as of this encounter (statuses as of 12/08/2023) Immunizations Name Administration Dates Next Due COVID-19 mRNA, LNP-s, No Pre serve, 2-Dose Series (Pfizer) 07/03/2021,12/27/2020,12/06/2020 COVID-19, MRNA-LNP, 23-24, P F, 30 MCG/0.3 mL, 12 YRS AND ABOVE, IM (PFIZER-Comirnaty) 06/16/2023 Pneumococcal Conjugate Vacci ne, 20-valent ([id number]) 12/07/2022 Pneumococcal Polysaccharide PPV23 (Pneumovax) 09/08/2020 Season [...] disease, without long-term current use of insulin ([facility]) Increase Lantus insulin 22 units HS Follow with [place] pharmacist for further insulin dose adjustment. Continue metformin ER 5 mg 1 tab once daily Continue Jardiance 25 mg 1 tab once daily Reduced caloric intake diabetic diet and exercise, stop diet soda - HEMOGLOBIN A1C; Future Type 2 diabetes mellitus with hemoglobin A1c goal of less than 7.5% ([facility]) Continue present medical therapy as above - HEMOGLOBIN A1C; Future 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 ([facility]) Grade 1 diastolic dysfunction Blood pressure at goal. Continue present medication Losartan 100 mg 1 tab once daily Carvedilol 25 mg 1 tab twice daily Torsemide 20 mg 1 tab once daily Atherosclerosis of [place] coronary artery of [place] heart without angina pectoris Stable Continue present medication Atorvastatin 40 mg 1 tab once daily - LIPID PANEL WITH DIRECT LDL IF TG IS HIGH; Future Chronic kidney disease, stage 3b ([facility]) Stable Avoid NSAIDs Continue to monitor renal function ILD (interstitial lung disease) ([facility]) Stable COPD, group A, by GOLD 2017 classification ([facility]) Stable GUS on CPAP Stable Continue CPAP [...] 12/12/2023 9:20 AM EDT Telemedicine Pulmonary Medicine, [place] [address] [place] [address] Iván Nielsen MD [address] [place] [address] Cart, Telemed Pulm 132 [facility] [place] ROM[place] [address] 12/15/2023 8:00 AM EDT Laboratory Laboratory [facility], [address] [address] [place], Lab Lock [address] [place] [address] 01/17/2024 9:00 AM EDT Office Visit [address] [place] [address] [place] Pharmacist [address] [place] Mccarthy [phone] 02/16/2024 10:00 AM EDT Office Visit [facility] [place] [phone] Debby Cornejo DO 132 [facility] [place] [address] 03/02/2024 8:00 AM EDT Laboratory Laboratory Patient Service Center, [place] [address] [place] [phone] [place], Lab Lock [address] [place] [address] 03/07/2024 9:00 AM EDT Office Visit [address] [place] [address] Javy Moscoso DO [address] [place] [address] 03/08/2024 8:00 AM EDT Laboratory Laboratory [facility], [place] [address] [place] [address] [place], Lab Lock [address] [place] [address] 03/15/2024 11:00 AM EDT Office Visit Hematology/Oncolog y [facility] [place] [address] [place] [phone] Katt Mullen CRNP [address] [place], [place] [address] Perez [address] 04/27/2024 9:30 AM EDT Hospital Encounter ENDO OSSC, Endoscopy Room [facility] [address] [place] [phone] Dominick Amador MD [address] [place] [address] 04/27/2024 9:30 AM EDT - 04/27/2024 10:15 AM EDT Surgery ENDO [facility], Endoscopy Room [facility] [address] [place] [phone] Dominick Amador MD [address] [place] [address] COLONOSCOPY FLEXIBLE PROXIMAL DIAGNOSTIC 07/24/2024 2:00 PM EST Office Visit Nephrology, [facility] [address] [facility] [place] Sharma [address] Augusto Lerner MD [address] [facility] [place] Sharma [address] 10/03/2024 11:00 AM EST Nurse Only Ancillary [facility] [place] [address] [place] Mccarthy [phone] [place], Nurse Annual Wellness Visit [address] [place] Mccarthy [phone] Pending Results Name Type Priority Associated Diagnoses [...] TG IS HIGH Lab Routine Atherosclerosis of [place] coronary artery of [place] heart without angina pectoris Dyslipidemia, goal LDL [...] COPD 03/28/2024 03/28/2023 CKD PHOS USE SMARTSET 40841 05/05/202402/2023, 02/02/2023, 01/11/2022, Additional history exists Diabetic Foot Exam 06/16/2024 06/16/2023, 06/16/2023 Diabetic Eye Exam 08/24/2024 08/24/2023, , 11/02/2022, Additional history exists CKD HGB USE SMARTSET 87711 09/08/202409/08, 09/08/2023, 08/04/2023, Additional history exists Albumin/Creatinine [...] (HCC) Grade I diastolic dysfunction Atherosclerosis of [place] coronary artery of [place] heart without angina pectoris Chronic kidney disease, [...] the patient have Health Care Power of Derrick Engineer? No Care Teams Brush Cleaner Relationship Specialty Start Date End Date Javy Moscoso DO [address] [place] Mccarthy [phone] PCP - General Family Medicine 07/04/23 documented as of this encounter"
--- OUTSIDE RECORDS SUMMARY | 2024-02-25 03:36 | External Medical Summary | Summary of Care ---
Author Name Unknown Organization [facility] Address [address] [facility] [address] Phone [phone] Care Team Providers Care Six Pack Packer Name Role Phone Javy Moscoso DO Primary Care Provider [phone] Encounter Details Date Type Department Care Team (Late st Contact Info) Description 12/07/2023 Orders Only Family Practice 65 [facility] [address] [place] [address] Javy Moscoso DO [address] [place] [address] Allergies Active Allergy Reactions Criticality Noted Date Comments Lisinopril Unknown Low 11/15/2022 Verapamil Medium 06/26/2020 Heart Block documented as of this encounter (statuses as of 12/07/2023) Medications Medication Sig Dispensed Refills Start Date [...] 09/08/2023 Active Vitamin D (Ergocalciferol) 1.25 MG (94885 UT) Oral Capsule (Drisdol)Indications :Vitamin D deficiency [...] morning. 90 Capsule 2 10/04/2023 Active Pen [place] 31G X 5 MMIndications:Type 2 diabetes mellitus [...] current use of insulin ([facility]) Inject 22 Units under the skin at bedtime. 15 mL 5 12/06/2023 Active Dexcom G7 Sensor Use as directed. Use as directed to monitor blood sugars daily. Replace sensor every 10 days. E11.9 0 Active Dexcom G7 Test Carrier Device Use as directed. Use as directed to monitor blood sugars daily 0 Active Fluticasone Propionate 50 MCG/ACT Nasal Suspension (Flonase)Indications :Chronic maxillary sinusitis Administer 2 Sprays into each nostril in the morning. 18.2 g 3 12/06/2023 Active documented as of this encounter (statuses as of 12/07/2023) Active Problems Problem Noted Date Diagnosed Date [...] 12/07/2022 Bilateral impacted cerumen 10/22/2022 Atherosclerosis of [place] co ronary artery without angina pectoris 07/15/2022 [...] as of this encounter (statuses as of 12/07/2023) Resolved Problems Problem Noted Date Diagnosed Date [...] as of this encounter (statuses as of 12/07/2023) Immunizations Name Administration Dates Next Due COVID-19 mRNA, LNP-s, No Pre serve, 2-Dose Series ([employer]) 07/03/2021,12/27/2020,12/06/2020 COVID-19, MRNA-LNP, 23-24, P F, 30 MCG/0.3 mL, 12 YRS AND ABOVE, IM (PFIZER-Comirnaty) 06/16/2023 Pneumococcal Conjugate Vacci ne, 20-valent ([id number]) 12/07/2022 Pneumococcal Polysaccharide PPV23 (Pneumovax) 09/08/2020 Season [...] Upcoming Encounters Date Type Department Care Team (Abbie Contact Info) Description 12/08/2023 8:30 AM EDT Nutrition Services Nutrition Services 65 [facility] [address] [place] [facility] [place] [phone] Aydee Barnes, RDN 30 [facility] 11 [place] [address] 12/12/2023 9:20 AM EDT Telemedicine Pulmonary Medicine, [place] [address] [place] [address] Iván Nielsen MD [address] [place] [address] Cart, Telemed Pulm Gw 132 [facility] [place] ROM[place] [address] 12/15/2023 8:00 AM EDT Laboratory Laboratory Patient Service [place], [place] [address] [place] [address] [place], Lab Lock [address] [place] [address] 01/17/2024 9:00 AM EDT Office Visit Family Practice 65 [facility] [address] [place] Mccarthy [phone] [place], Pharmacist 65 [facility] [address] [place] Mccarthy [phone] 02/16/2024 10:00 AM EDT Office Visit [facility] Disorders Ctr [facility] 132 [facility] [place] [phone] Debby Cornejo, [address] [place] [address] 03/02/2024 8:00 AM EDT Laboratory Laboratory Patient Service [place], [place] [address] [place] [address] [place], Lab Lock [address] [place] [address] 03/07/2024 9:00 AM EDT Office Visit Family Practice 65 [facility], [place] [address] [place]cc[place] [address] Javy Moscoso DO [address] [place] [address] 03/08/2024 8:00 AM EDT Laboratory Laboratory Patient Service [address] [phone] [place], [facility] Lock [address] [place] [address] 03/15/2024 11:00 AM EDT Office Visit Hematology/Oncolog y [employer] [address] [place]arma [phone] Katt Mullen CRNP [address] [place] [address] [place] [address] 04/27/2024 9:30 AM EDT Hospital Encounter ENDO OSSC, Endoscopy Room [facility] [address] [place] [phone] Dominick Amador MD [address] [place] [address] 04/27/2024 9:30 AM EDT - 04/27/2024 10:15 AM EDT Surgery ENDO [facility], Endoscopy Room [facility] [address] [place] [phone] Dominick Amador MD [address] [place] [address] COLONOSCOPY FLEXIBLE PROXIMAL DIAGNOSTIC 07/24/2024 2:00 PM EST Office Visit Nephrology, [facility] [address] [place] [address] Augusto Lerner MD 200 [facility] [address] 10/03/2024 11:00 AM EST Nurse Only Ancillary [address], [place] [address] [place] Mccarthy [phone] [place], Nurse Annual Wellness Visit [address] [place] Mccarthy [address] Scheduled Procedures Name Priority [...] 12/15/2020, Additional history exists GFR 03/08/2024 09/08/2023, 1202/2023, 05/05/2023, Additional history exists HbA1c 03/08/2024 09/08/2023, 1202/2023, 02/02/2023, Additional history exists O2 ASSESSMENT COMPLETED IN PAST YEAR FOR COPD 03/28/2024 03/28/2023 CKD PHOS USE SMARTSET 57544 05/05/20240 02/2023, 02/02/2023, 01/11/2022, Additional history exists Diabetic Foot Exam 06/16/2024 06/16/2023, 06/16/2023 CKD HGB USE SMARTSET 84900 09/08/202409/08, 09/08/2023, 08/04/2023, Additional history exists Albumin/Creatinine Ratio 09/09/2024 09/09/2023, 110 11/2021 Depression Screening 09/28/2024 09/28/2023 Diabetic Eye Exam 12/06/2024 08/24/2023, , 11/02/2022, Additional history exists DTaP,Tdap,and Td Vaccines (2 [...] Procedure Name Priority Date/Time Associated Diagnosis Comments DIABETIC EYE EXAM Routine 08/24/2023 DIABETIC EYE EXAM Routine 11/02/2022 documented in this encounter Results * DIABETIC EYE EXAM (08/24/2023) 08/24/2023 History Per Patient OTHER OUTSIDE LAB (SEE SCANNED REPORT) * DIABETIC EYE EXAM (11/02/2022) 11/02/2022 History Per Patient OTHER OUTSIDE LAB (SEE SCANNED REPORT) documented in this encounter Advance Directives Latest Code Status on File Code Status Date Activated Date Inactivated Comments Full Code 02/15/2019 9:23 PM 02/18/2019 2:08 PM This order reflects the patients wishes and were consensually agreed upon. Question Answer Comments Discussion of Advance Directives occurred with: Patient Does the patient have a Living Will? No Does the patient have Health Care Power of Highway Administrative Engineer? No Care Teams Six Pack Packer Relationship Specialty Start Date End Date Javy Moscoso DO [address] [place]cc[place] [address] PCP - General Family Medicine 07/04/23 documented as of this encounter
--- OUTSIDE RECORDS SUMMARY | 2024-02-25 03:36 | External Medical Summary | Summary of Care ---
Author Name Unknown Organization [facility] Address [address] [facility] [place] [address] Phone [phone] Care Team Providers Care Digital Media Representative Name Role Phone Javy Moscoso DO Primary Care Provider [phone] Reason for Visit * Reason Comments Follow Up Eyes hurt behind the m, 6 months. 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 ([facility]); Grade I diastolic dysfunction; Atherosclerosis of [place] coronary artery of [place] heart without angina pectoris; Chronic kidney disease, stage 3b ([facility]); ILD (interstitial lung disease) ([facility]); COPD, group A, by GOLD 2017 classification ([facility]); GUS on CPAP; Dyslipidemia, goal LDL below [...] 09/08/2023 Active Vitamin D (Ergocalciferol) 1.25 MG (92656 UT) Oral Capsule (Drisdol)Indication s:Vitamin D deficiency Take 1 Capsule by mouth Every Month. 6 Capsule 0 09/08/2023 4 Active Chemclinuch Ultra In Vitro Strip (Glucose Blood) USE DIRECTED UP TO THREE TIMES DAILY FOR HOME GLUCOSE TESTING 300 Strip 3 09/08/2023 Active Activiomics Ultra 2 w/Device Kit USE DIRECTED TO [...] morning. 90 Capsule 2 10/04/2023 Active Pen [place] 31G X 5 MMIndications:Type 2 diabetes mellitus [...] 12/07/2022 Bilateral impacted cerumen 10/22/2022 Atherosclerosis of [place] co ronary artery without angina pectoris 07/15/2022 [...] Per CKD protocol [facility] 10/21/2021 07/08/2022 COPD, [...] (PFIZER-Comirnaty) 06/16/2023 Pneumococcal Conjugate Vacci ne, 20-valent ([id number]) 12/07/2022 Pneumococcal Polysaccharide PPV23 (Pneumovax) 09/08/2020 Season [...] without long-term current use of insulin ([facility]) Increase Lantus insulin 22 units HS Follow with [place] pharmacist for further insulin dose adjustment. Continue metformin ER 5 mg 1 tab once daily Continue Jardiance 25 mg 1 tab once daily Reduced caloric intake diabetic diet and exercise, stop diet soda - HEMOGLOBIN A1C; Future Type 2 diabetes mellitus with hemoglobin A1c goal of less than 7.5% ([facility]) Continue present medical therapy as above - HEMOGLOBIN A1C; Future 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 ([facility]) Grade 1 diastolic dysfunction Blood pressure at goal. Continue present medication Losartan 100 mg 1 tab once daily Carvedilol 25 mg 1 tab twice daily Torsemide 20 mg 1 tab once daily Atherosclerosis of [place] coronary artery of [place] heart without angina pectoris Stable Continue present medication Atorvastatin 40 mg 1 tab once daily - LIPID PANEL WITH DIRECT LDL IF TG IS HIGH; Future Chronic kidney disease, stage 3b ([facility]) Stable Avoid NSAIDs Continue to monitor renal function ILD (interstitial lung disease) ([facility]) Stable COPD, group A, by GOLD 2017 classification ([facility]) Stable GUS on CPAP Stable Continue CPAP [...] Care Team (Late st Contact Info) Description 12/08/2023 8:30 AM EDT Nutrition Services Nutrition Services [address] [place] [address] Aydee Barnes, ESTEBAN 30 [facility] 11 [place] [address] 12/12/2023 9:20 AM EDT [facility] [address] [place] [address] Iván Nielsen MD [address] [place] [address] Cart, Telemed Pulm Gw 132 [facility] [place] [address] 12/15/2023 8:00 AM EDT [facility], [address] [address] Have, Lab Lock [address] [place] [address] 01/17/2024 9:00 AM EDT Office Visit [address] [place] [phone] [place] Pharmacist [address] [place] [address] [address] [place] [address] 02/16/2024 10:00 AM EDT Office Visit Sleep Disorders Ctr [facility] 132 [facility] [place] [phone] Debby Cornejo, 132 [facility] [place] [address] 03/02/2024 8:00 AM EDT Laboratory [facility], [address] [phone] [place], Lab Lock [address] [place] [address] 03/07/2024 9:00 AM EDT Office Visit [address] [place] [phone] Javy Moscoso DO [address] [place] [address] 03/08/2024 8:00 AM EDT Laboratory Laboratory Patient Service [place], [place] [address] [place] [address] [place], Lab [address] [place] [address] 03/15/2024 11:00 AM EDT Office Visit [facility] [employer] [address] [place] [phone] Katt Mullen CRNP [address] [place] [address] 04/27/2024 9:30 AM EDT Hospital Encounter ENDO [facility]SS[facility], Endoscopy Room [facility] [address] [place] [phone] Dominick Amador MD [address] [place] [address] 04/27/2024 9:30 AM EDT - 04/27/2024 10:15 AM EDT Surgery ENDO [facility], Endoscopy Room [facility] [address] [place] [phone] Dominick Amador MD [address] [place] [address] COLONOSCOPY FLEXIBLE PROXIMAL DIAGNOSTIC 07/24/2024 2:00 PM EST Office Visit Nephrology, [facility] 200 [facility] [place] [address] Augusto Lerner MD 200 [facility] [place] [address] 10/03/2024 11:00 AM EST Nurse Only Ancillary [address], [place] [address] [place] [address] [place] Nurse Annual Wellness Visit [address] [place] [address] Pending Results Name Type Priority Associated Diagnoses [...] TG IS HIGH Lab Routine Atherosclerosis of [place] coronary artery of [place] heart without angina pectoris Dyslipidemia, goal LDL [...] 05/05/2023, Additional history exists HbA1c 03/08/2024 09/08/2023, 120 02/2023, 02/02/2023, Additional history exists O2 ASSESSMENT COMPLETED IN PAST YEAR FOR COPD 03/28/2024 03/28/2023 CKD PHOS USE SMARTSET 67781 05/05/2024 090 02/2023, 02/02/2023, 01/11/2022, Additional history exists Diabetic Foot Exam 06/16/2024 06/16/2023, 06/16/2023 Diabetic Eye Exam 08/24/2024 08/24/2023, , 11/02/2022, Additional history exists CKD HGB USE SMARTSET 42292 09/08/202409/08, 09/08/2023, 08/04/2023, Additional history exists Albumin/Creatinine [...] (HCC) Grade I diastolic dysfunction Atherosclerosis of [place] coronary artery of [place] heart without angina pectoris Chronic kidney disease, [...] the patient have Health Care Power of Process Pumper? No Care Teams Digital Media Representative Relationship Specialty Start Date End Date Javy Moscoso DO [address] [place] [phone] PCP - General Family Medicine 07/04/23 documented as of this encounter"
--- OUTSIDE RECORDS SUMMARY | 2024-02-25 03:36 | External Medical Summary | Summary of Care ---
Author Name Unknown Organization [facility] Address [address] [facility] [place] [address] Phone [phone] Care Team Providers Care Recreation Leader Name Role Phone Javy Moscoso DO Primary Care Provider [phone] Reason for Visit * Reason Comments Follow Up Eyes hurt behind the m, 6 months. Just had recent eye exam Encounter Details Date Type Department Care Team (Latest Contact Info) Description 12/06/2023 9:00 AM EDT Office Visit Family [facility] 65 [facility], [place] [address] [place] [address] Javy Moscoso DO [address] [place] [address] Type 2 diabetes mellitus with stage 3b chronic kidney disease, without long-term current use of insulin ([facility])*; Type 2 diabetes mellitus with hemoglobin A1c goal of less than 7.5% ([facility]); 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 ([facility]); Grade I diastolic dysfunction; Atherosclerosis of [place] coronary artery of [place] heart without angina pectoris; Chronic kidney disease, stage 3b ([facility]); ILD (interstitial lung disease) ([facility]); COPD, group A, by GOLD 2017 classification ([facility]); GUS on CPAP; Dyslipidemia, goal [...] 09/08/2023 Active Vitamin D (Ergocalciferol) 1.25 MG (66815 UT) Oral Capsule (Drisdol)Indication s:Vitamin D deficiency Take 1 Capsule by mouth Every Month. 6 Capsule 0 09/08/2023 4 Active MixVilleuch Ultra In Vitro Strip (Glucose Blood) USE DIRECTED UP TO THREE TIMES DAILY FOR HOME GLUCOSE TESTING 300 Strip 3 09/08/2023 Active Walv[employer] Ultra 2 w/Device Kit USE DIRECTED TO [...] morning. 90 Capsule 2 10/04/2023 Active Pen [place] 31G X 5 MMIndications:Type 2 diabetes mellitus [...] 12/07/2022 Bilateral impacted cerumen 10/22/2022 Atherosclerosis of [place] co ronary artery without angina pectoris 07/15/2022 [...] CKD protocol [facility] 10/21/2021 07/08/2022 COPD, [...] (PFIZER-Comirnaty) 06/16/2023 Pneumococcal Conjugate Vacci ne, 20-valent ([id number]) 12/07/2022 Pneumococcal Polysaccharide PPV23 (Pneumovax) 09/08/2020 Season [...] disease, without long-term current use of insulin ([facility]) Increase Lantus insulin 22 units HS Follow with [place] pharmacist for further insulin dose adjustment. Continue metformin ER 5 mg 1 tab once daily Continue Jardiance 25 mg 1 tab once daily Reduced caloric intake diabetic diet and exercise, stop diet soda - HEMOGLOBIN A1C; Future Type 2 diabetes mellitus with hemoglobin A1c goal of less than 7.5% ([facility]) Continue present medical therapy as above - HEMOGLOBIN A1C; Future 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 ([facility]) Grade 1 diastolic dysfunction Blood pressure at goal. Continue present medication Losartan 100 mg 1 tab once daily Carvedilol 25 mg 1 tab twice daily Torsemide 20 mg 1 tab once daily Atherosclerosis of [place] coronary artery of [place] heart without angina pectoris Stable Continue present medication Atorvastatin 40 mg 1 tab once daily - LIPID PANEL WITH DIRECT LDL IF TG IS HIGH; Future Chronic kidney disease, stage 3b ([facility]) Stable Avoid NSAIDs Continue to monitor renal function ILD (interstitial lung disease) ([facility]) Stable COPD, group A, by GOLD 2017 classification ([facility]) Stable GUS on CPAP Stable [...] 12/12/2023 9:20 AM EDT Telemedicine Pulmonary Medicine, [place] [address] [place] [address] Iván Nielsen MD [address] [place] [address] Cart, Telemed Pulm 132 [facility] [place] [address] 12/15/2023 8:00 AM EDT Laboratory [facility], [address] [address] [place], Lab Lock [address] [place] [address] 01/17/2024 9:00 AM EDT Office Visit [address] [place] [address] [place] Pharmacist [address] [place] [phone] 02/16/2024 10:00 AM EDT Office Visit [facility] Ctr [facility] [place] [phone] Debby Cornejo DO 132 [facility] [place] [address] 03/02/2024 8:00 AM EDT Laboratory [facility], [place] [address] [place] [address] [place], Lab Lock [address] [place] [address] 03/07/2024 9:00 AM EDT Office Visit [address] [place] [address] Javy Moscoso DO [address] [place] [address] 03/08/2024 8:00 AM EDT Laboratory [facility], [place] [address] [place] [address] [place], Lab [address] [place] [address] 03/15/2024 11:00 AM EDT Office Visit Hematology/Oncolog y [place] [address] [place] [phone] Katt Mullen CRNP [address] [place], [place] [address] [address] 04/27/2024 9:30 AM EDT Hospital Encounter ENDO OSSC, Endoscopy Room [facility] [address] [place] [phone] Dominick Amador MD [address] [place] [address] 04/27/2024 9:30 AM EDT - 04/27/2024 10:15 AM EDT Surgery ENDO [facility], Endoscopy Room [facility] [address] [place] [phone] Dominick Amador MD [address] [place] [address] COLONOSCOPY FLEXIBLE PROXIMAL DIAGNOSTIC 07/24/2024 2:00 PM EST Office Visit Nephrology, [facility] 200 [facility] [place] [address] Augusto Lerner MD 200 [facility] [place] [address] 10/03/2024 11:00 AM EST Nurse Only Ancillary 65 [facility], [place] [address] [place] [phone] [place], Nurse Annual Wellness Visit [address] [place] [phone] Pending Results Name Type Priority Associated Diagnoses [...] TG IS HIGH Lab Routine Atherosclerosis of [place] coronary artery of [place] heart without angina pectoris Dyslipidemia, goal LDL [...] COPD 03/28/2024 03/28/2023 CKD PHOS USE SMARTSET 33478 05/05/202402/2023, 02/02/2023, 01/11/2022, Additional history exists Diabetic Foot Exam 06/16/2024 06/16/2023, 06/16/2023 Diabetic Eye Exam 08/24/2024 08/24/2023, , 11/02/2022, Additional history exists CKD HGB USE SMARTSET 89559 09/08/202409/08, 09/08/2023, 08/04/2023, Additional history exists Albumin/Creatinine [...] disease, without long-term current use of insulin ([facility])- Primary Type 2 diabetes mellitus with hemoglobin A1c goal of less than 7.5% ([facility]) 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 ([facility]) Grade I diastolic dysfunction Atherosclerosis of [place] coronary artery of [place] heart without angina pectoris Chronic kidney disease, stage 3b (HCC) ILD (interstitial lung disease) (HCC) Postinflammatory pulmonary fibrosis COPD, group A, by GOLD 2017 classification ([facility]) GUS on CPAP Obstructive sleep apnea (adult) [...] leg Status post total left knee replacement ILD (interstitial lung disease) (HCC)- Primary Postinflammatory pulmonary fibrosis COPD, group A, by GOLD 2017 classification ([facility]) Centrilobular emphysema (HCC) Other emphysema GUS on [...] the patient have Health Care Power of Material Spreader? No Care Teams Recreation Leader Relationship Specialty Start Date End Date Javy Moscoso DO [address] [place] [phone] PCP - General Family Medicine 07/04/23 documented as of this encounter"
--- OUTSIDE RECORDS SUMMARY | 2024-02-25 03:36 | External Medical Summary | Summary of Care ---
Author Name Unknown Organization [facility] Address [address] [facility] [place] [address] Phone [phone] Care Team Providers Care Machine Tool Operator Name Role Phone Javy Moscoso DO Primary Care Provider [phone] Reason for Visit * Reason Comments Follow Up Eyes hurt behind the m, 6 months. Just had recent eye exam Encounter Details Date Type Department Care Team (Latest Contact Info) Description 12/06/2023 9:00 AM EDT Office Visit Family Practice 65 [facility], [place] [address] [place] [address] Javy Moscoso DO [address] [place] [address] Type 2 diabetes mellitus with stage 3b chronic kidney disease, without long-term current use of insulin ([facility])*; Type 2 diabetes mellitus with hemoglobin A1c goal of less than 7.5% ([facility]); 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 ([facility]); Grade I diastolic dysfunction; Atherosclerosis of [place] coronary artery of [place] heart without angina pectoris; Chronic kidney disease, stage 3b ([facility]); ILD (interstitial lung disease) ([facility]); COPD, group A, by GOLD 2017 classification ([facility]); GUS on CPAP; Dyslipidemia, goal LDL [...] 09/08/2023 Active Vitamin D (Ergocalciferol) 1.25 MG (28629 UT) Oral Capsule (Drisdol)Indication s:Vitamin D deficiency Take 1 Capsule by mouth Every Month. 6 Capsule 0 09/08/2023 4 Active Push Healthuch Ultra In Vitro Strip (Glucose Blood) USE DIRECTED UP TO THREE TIMES DAILY FOR HOME GLUCOSE TESTING 300 Strip 3 09/08/2023 Active Ovo Cosmico Ultra 2 w/Device Kit USE DIRECTED TO [...] morning. 90 Capsule 2 10/04/2023 Active Pen [place] 31G X 5 MMIndications:Type 2 diabetes mellitus [...] 12/07/2022 Bilateral impacted cerumen 10/22/2022 Atherosclerosis of [place] co ronary artery without angina pectoris [...] Per CKD protocol [facility] 10/21/2021 07/08/2022 [...] (PFIZER-Comirnaty) 06/16/2023 Pneumococcal Conjugate Vacci ne, 20-valent ([id number]) 12/07/2022 Pneumococcal Polysaccharide PPV23 (Pneumovax) 09/08/2020 Season [...] disease, without long-term current use of insulin ([facility]) Increase Lantus insulin 22 units HS Follow with [place] pharmacist for further insulin dose adjustment. Continue metformin ER 5 mg 1 tab once daily Continue Jardiance 25 mg 1 tab once daily Reduced caloric intake diabetic diet and exercise, stop diet soda - HEMOGLOBIN A1C; Future Type 2 diabetes mellitus with hemoglobin A1c goal of less than 7.5% ([facility]) Continue present medical therapy as above - HEMOGLOBIN A1C; Future 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 ([facility]) Grade 1 diastolic dysfunction Blood pressure at goal. Continue present medication Losartan 100 mg 1 tab once daily Carvedilol 25 mg 1 tab twice daily Torsemide 20 mg 1 tab once daily Atherosclerosis of [place] coronary artery of [place] heart without angina pectoris Stable Continue present medication Atorvastatin 40 mg 1 tab once daily - LIPID PANEL WITH DIRECT LDL IF TG IS HIGH; Future Chronic kidney disease, stage 3b ([facility]) Stable Avoid NSAIDs Continue to monitor renal function ILD (interstitial lung disease) ([facility]) Stable COPD, group A, by GOLD 2017 classification ([facility]) Stable GUS on CPAP Stable Continue [...] 12/12/2023 9:20 AM EDT Telemedicine Pulmonary Medicine, [place] [address] [place] [address] Iván Nielsen MD [address] [place] [address] Cart, Telemed Pulm 132 [facility] [place] [address] 12/15/2023 8:00 AM EDT Laboratory [facility], [address] [address] [place], Lab Lock [address] [place] [address] 01/17/2024 9:00 AM EDT Office Visit [address] [place] [address] [place] Pharmacist [address] [place]ccarthy [phone] 02/16/2024 10:00 AM EDT Office Visit [facility] Disorders Ctr [facility] [place] [phone] Debby Cornejo DO 132 [facility] [place] [address] 03/02/2024 8:00 AM EDT Laboratory [facility], [place] [address] [place] [address] [place], Lab Lock [address] [place] [address] 03/07/2024 9:00 AM EDT Office Visit [address] [place] [address] Javy Moscoso DO [address] [place] [address] 03/08/2024 8:00 AM EDT Laboratory [facility], [place] [address] [place] [address] [place], Lab Lock [address] [place] [address] 03/15/2024 11:00 AM EDT Office Visit Hematology/Oncolog y [place]атерина [place] [place] [address] [place] [phone] Katt Mullen CRNP [address] [place], [place] [address] [address] 04/27/2024 9:30 AM EDT Hospital Encounter ENDO [facility], Endoscopy Room [facility] [address] [place] [phone] Dominick Amador MD [address] [place] [address] 04/27/2024 9:30 AM EDT - 04/27/2024 10:15 AM EDT Surgery ENDO [facility], Endoscopy Room [facility] [address] [place] [phone] Dominick Amador MD [address] [place] [address] COLONOSCOPY FLEXIBLE PROXIMAL DIAGNOSTIC 07/24/2024 2:00 PM EST Office Visit Nephrology, [facility] [address] [facility] [place] [address] Augusto Lerner MD [address] [facility] [place] [address] 10/03/2024 11:00 AM EST Nurse Only Ancillary 65 [facility], [place] [address] [place]cc[place] [phone] [place], Nurse Annual Wellness Visit [address] [place] Mccarthy [phone] Pending Results Name Type Priority Associated Diagnoses [...] TG IS HIGH Lab Routine Atherosclerosis of [place] coronary artery of [place] heart without angina pectoris Dyslipidemia, goal LDL [...] COPD 03/28/2024 03/28/2023 CKD PHOS USE SMARTSET 64256 05/05/202402/2023, 02/02/2023, 01/11/2022, Additional history exists Diabetic Foot Exam 06/16/2024 06/16/2023, 06/16/2023 Diabetic Eye Exam 08/24/2024 08/24/2023, , 11/02/2022, Additional history exists CKD HGB USE SMARTSET 88532 09/08/202409/08, 09/08/2023, 08/04/2023, Additional history exists Albumin/Creatinine [...] (HCC) Grade I diastolic dysfunction Atherosclerosis of [place] coronary artery of [place] heart without angina pectoris Chronic kidney disease, [...] the patient have Health Care Power of Metal Furnace Operator? No Care Teams Machine Tool Operator Relationship Specialty Start Date End Date Javy Moscoso DO [address] [place]ccarthy [phone] PCP - General Family Medicine 07/04/23 documented as of this encounter"
--- OUTSIDE RECORDS SUMMARY | 2024-02-25 03:37 | External Medical Summary | Summary of Care ---
Author Name Unknown Organization [facility] Address [address] [facility] [address] Phone [phone] Care Team Providers Care Senior Grants Officer Name Role Phone Javy Moscoso DO Primary Care Provider [phone] Reason for Visit * Reason Comments Dosage Adjustment In Person (Anticoag Cl inic) Diabetes Follow-Up Encounter Details Date Type Department Care Team (Late st Contact Info) Description 12/06/2023 8:00 AM EDT Office Visit Family Practice [address], [place] [address] [place] [address] [place], Pharmacist [address] [place] [address] Type 2 diabetes mellitus with hyperglycemia, with long-term current use of insulin (HCC)* Allergies Active Allergy Reactions Criticality Noted Date Comments Lisinopril Unknown Low 11/15/2022 Verapamil Medium 06/26/2020 Heart Block documented as of this encounter (statuses as of 12/06/2023) Medications Medication Sig Dispensed Refills Start Date [...] 09/08/2023 Active Vitamin D (Ergocalciferol) 1.25 MG (16030 UT) Oral Capsule (Drisdol)Indication s:Vitamin D deficiency Take 1 Capsule by mouth Every Month. 6 Capsule 0 09/08/2023 4 Active Robinhooduch Ultra In Vitro Strip (Glucose Blood) USE DIRECTED UP TO THREE TIMES DAILY FOR HOME GLUCOSE TESTING 300 Strip 3 09/08/2023 Active Robinhooduch Ultra 2 w/Device Kit USE DIRECTED TO [...] MOUTH EVERY MORNING 90 Tablet 3 11/02/2023 Active Triamcinolone Acetonide 0.5 % External Cream (Aristocort) APPLY TO RASH ON ANKLE DAILY. 0 09/22/2023 Active Vitamin B-12 2500 MCG Sublingual Tablet Sublingual Place 1 Tablet under the tongue in the morning. 0 Active Insulin Glargine Solostar 100 UNIT/ML Subcutaneous Solution Pen-injector (Lantus SoloStar)Indication s:Type 2 diabetes mellitus with hyperglycemia, with long-term current use of insulin ([facility]) Inject 22 Units under the skin at bedtime. 15 mL 5 12/06/2023 Active Dexcom G7 Sensor Use as directed. Use as directed to monitor blood sugars daily. Replace sensor every 10 days. E11.9 0 Active Dexcom G7 Evp Chief Exploration Officer Device Use as directed. Use as directed to monitor blood sugars daily 0 Active Insulin Glargine Solostar 100 UNIT/ML Subcutaneous Solution Pen-injector (Lantus SoloStar)Indication s:Type 2 diabetes mellitus with hyperglycemia, with long-term current use of insulin (HCC) Inject 20 Units under the skin at bedtime. 15 mL 3 11/10/2023 Discontinue d(Refill) documented as of this encounter (statuses as of 12/06/2023) Active Problems Problem Noted Date Diagnosed Date Type 2 diabetes mellitus wit h hemoglobin A1c goal of less than 7.5% 12/06/2023 AVM (arteriovenous malformation) of small bowel, acquired 12/06/2023 Type 2 diabetes mellitus wit h [...] 12/07/2022 Bilateral impacted cerumen 10/22/2022 Atherosclerosis of [place] co ronary artery without angina pectoris 07/15/2022 [...] as of this encounter (statuses as of 12/06/2023) Resolved Problems Problem Noted Date Diagnosed Date [...] as of this encounter (statuses as of 12/06/2023) Immunizations Name Administration Dates Next Due COVID-19 mRNA, LNP-s, No Pre serve, 2-Dose Series (Pfizer) 07/03/2021,12/27/2020,12/06/2020 COVID-19, MRNA-LNP, 23-24, P F, 30 MCG/0.3 mL, 12 YRS AND ABOVE, IM (PFIZER-Comirnaty) 06/16/2023 Pneumococcal Conjugate Vacci ne, 20-valent ([id number]) 12/07/2022 Pneumococcal Polysaccharide PPV23 (Pneumovax) 09/08/2020 Season [...] this encounter Progress Notes * Hans Kaba, [facility] - 12/06/2023 8:04 AM EDT Images from the original note were not included. Medication Therapy Disease [facility] - Diabetes Management Progress Note Walker Mancini, identified by name and date of , is a 73 year old male being seen for diabetes management/education. Patient presents for return diabetic visit. DIABETES: Current diabetic medications: Metformin 500 mg ER 1 tab daily (at bedtime) Jardiance 25 mg daily INCREASE Lantus 20 units at bedtime Medication Injection Site: Abdomen Lifestyle: Diet: unchanged Glucose Review/SMBG: Readings obtained from patient device Hypoglycemia: Does your blood sugar go below 70 mg/dL? No Hyperglycemia symptoms present: none Recent Labs Units 09/08/23 1002 08/04/23 0752 02/02/23 0849 HEMOGLOBIN A1C - [facility] % 8.7* 9.2* 7.5* Recent Labs Units 09/08/23 1002 08/04/23 0752 05/05/23 0750 ESTIMATED GLOMERULAR FILTRATION RATE - [facility] mL/min 45* 46* 47* CREATININE - [facility] mg/dL 1.6* 1.6* 1.6* HYPERTENSION: Patient on ACEi/ARB: yes BP Readings from Last 3 Encounters: 12/01/23 132/70 11/03/23 136/73 09/28/23 124/72 Blood pressure at goal: yes HYPERLIPIDEMIA: Patient is taking moderate or high intensity statin: yes HEALTH MAINTENANCE REVIEW: Health Maintenance Due Topic Date Due Diabetic Eye Exam 11/03/2023 ASSESSMENT & PLAN: ICD-10-CM 1. Type 2 diabetes mellitus with hyperglycemia, with long-term current use of insulin ([facility]) E11.65 Z79.4 BG Readings - Blood sugars are improving but remain above goal. No reports of hypoglycemia. Focus of today's visit is Dexcom G7 start. Dexcom G7: Patient Education and Review Patient provided G7 CGM components and training manual. Reviewed the following information with patient using provided wagon washer literature: Introduced CGM and components How to set up display device (cell phone with Dexcom [id number]) Follow the onscreen instructions on knot tying operator or appt to enter: Low and high alerts Sensor code Insert sensor Choose sensor site Insert sensor with applicator Pair sensor Wait for sensor to pair Tap start sensor No readings during the 30 minute warmup Keep display device within 20 feet during warmup Home screen overview Review home screen overview in using your G7 with patient Home screen shows Sensor glucose readings Trend arrow Trend graph High and low alerts Treatment decisions Review treatment decisions in using your G7 with patient Use your meter if: Your G7 readings don't match your symptoms Your G7 doesn't show both a number and an arrow Ending Sensor Session Review ending your sensor session in using your G7 with patient Remove sensor from body Patient set up personal device and self-inserted sensor and transmitter in office independently of pharmacist involvement other than for material review and support. Medications - Reviewed current regimen, patient is adherent to regimen. Reasonable to increase Lantus Diet, Exercise, Lifestyle - No significant lifestyle changes since last visit. Patient is agreeable to Dexcom G7 Patient aware to contact clinic if any hypoglycemia before next visit. MEDICATION CHANGES: yes, see below; preferred pharmacy: [facility] ([facility]) Diabetic Medications: Metformin 500 mg ER 1 tab daily (at bedtime) Jardiance 25 mg daily INCREASE Lantus 22 units at bedtime HEALTH MAINTENANCE INTERVENTIONS: Labs: Up to Date Immunizations: Up to Date Foot Exam: Up to Date Eye Exam: Due Annual Wellness Visit: Up to Date FOLLOW UP: Return to clinic in 6 weeks 01/17/2024 Hans Kaba RPh Clinical Pharmacist - Pest Control Worker Helper Medication Therapy Management Clinic 12/06/2023, 8:04 AM documented in this encounter Plan of Treatment Upcoming Encounters Date Type Department Care Team (Late st Contact Info) Description 12/08/2023 8:30 AM EDT Nutrition Services Nutrition Services [address] [place] [address] Aydee Barnes, ESTEBAN 30 [facility] 11 [place] [address] 12/12/2023 9:20 AM EDT Telemedicine Pulmonary Medicine, [place] [address] [place] [address] Iván Nielsen MD [address] [place], [place] [id number] Cart, Telemed Pulm Gw 132 [place] [address] 12/15/2023 8:00 AM EDT Laboratory [facility], [place] [address] [place] [address] [place], Lab [facility] [address] [place] [address] 01/17/2024 9:00 AM EDT Office Visit Family Practice 65 [facility], [place] [address] [place] [address] [place], Pharmacist [address] [facility] [address] [place] M[place] [phone] 02/16/2024 10:00 AM EDT [facility] 132 [place] [phone] Debby Cornejo DO 132 [facility] [place] [address] 03/08/2024 8:00 AM EDT Laboratory [facility], [place] [address] [place] [phone] [place], Lab [place] [address] [place] [address] 03/15/2024 11:00 AM EDT Office Visit [facility] [address] [place] [address] Katt Mullen CRNP [address] [place] [address] [place] [id number] 04/27/2024 9:30 AM EDT Hospital Encounter ENDO [facility], Endoscopy Room [facility] [address] [place] [phone] Dominick Amador MD [address] [place] [address] 04/27/2024 9:30 AM EDT - 04/27/2024 10:30 AM EDT Surgery ENDO [facility], Endoscopy Room [facility] [address] [place] [phone] Dominick Amador MD [address] [place] [address] COLONOSCOPY FLEXIBLE PROXIMAL DIAGNOSTIC 07/24/2024 2:00 PM EST Office Visit Nephrology, [facility] 200 [facility] [place] [address] Augusto Lerner MD [address] [place] [address] 10/03/2024 11:00 AM EST Nurse Only Ancillary [address] [facility], [place] [address] [place] Mcc[place] [phone] [place], Nurse Annual Wellness Visit [address] [place] [address] Scheduled Procedures Name Priority Associated Diagnoses Date/Ti me COLONOSCOPY FLEXIBLE PROXIMA L DIAGNOSTIC Recall Iron deficiency anemia AVM (arteriovenous malformation) History of colonic polyps 04/27/2024 9:30 AM EDT ESOPHAGOGASTRODUODENOSCOPY ( EGD), FLEXIBLE, TRANSORAL, DIAGNOSTIC Recall Iron deficiency anemia AVM (arteriovenous malformation) History of colonic polyps 04/27/2024 9:30 AM EDT Health Maintenance Due Date Last Done Comments Diabetic Eye Exam 11/03/2023 11/02/2022, , 11/05/2021 COLONOSCOPY-ANNUAL AGES 18-100 12/11/2023 12/10/2022, 12/10/2022, 12/15/2020, Additional history exists GFR 03/08/2024 09/08/2023, 120 02/2023, 05/05/2023, Additional history exists HbA1c 03/08/2024 09/08/2023, 120 02/2023, 02/02/2023, Additional history exists O2 ASSESSMENT COMPLETED IN PAST YEAR FOR COPD 03/28/2024 03/28/2023 CKD PHOS USE SMARTSET 60167 05/05/2024 090 02/2023, 02/02/2023, 01/11/2022, Additional history exists Diabetic Foot Exam 06/16/2024 06/16/2023, 06/16/2023 CKD HGB USE SMARTSET 75231 09/08/202409/08, 09/08/2023, 08/04/2023, Additional history exists Albumin/Creatinine [...] the patient have Health Care Power of Transport Company Manager? No Care Teams Senior Grants Officer Relationship Specialty Start Date End Date Javy Moscoso DO [address] [place] [phone] PCP - General Family Medicine 07/04/23 documented as of this encounter
--- OUTSIDE RECORDS SUMMARY | 2024-02-25 03:37 | External Medical Summary | Summary of Care ---
Author Name Unknown Organization [facility] Address [address] [facility] [place] [address] Phone [phone] Care Team Providers Care Managing Supervisor Name Role Phone Javy Moscoso DO Primary Care Provider [phone] Reason for Visit * Reason Comments Follow Up Eyes hurt behind the m, 6 months. Just had recent eye exam Encounter Details Date Type Department Care Team (Latest Contact Info) Description 12/06/2023 9:00 AM EDT Office Visit Family Practice 65 [facility], [place] [address] [place] [address] Javy Moscoso DO [address] [place] [address] Type 2 diabetes mellitus with stage 3b chronic kidney disease, without long-term current use of insulin ([facility])*; Type 2 diabetes mellitus with hemoglobin A1c goal of less than 7.5% ([facility]); 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 ([facility]); Grade I diastolic dysfunction; Atherosclerosis of [place] coronary artery of [place] heart without angina pectoris; Chronic kidney disease, stage 3b ([facility]); ILD (interstitial lung disease) ([facility]); COPD, group A, by GOLD 2017 classification ([facility]); GUS on CPAP; Dyslipidemia, goal [...] 09/08/2023 Active Vitamin D (Ergocalciferol) 1.25 MG (24117 UT) Oral Capsule (Drisdol)Indication s:Vitamin D deficiency Take 1 Capsule by mouth Every Month. 6 Capsule 0 09/08/2023 4 Active ScanDigitaluch Ultra In Vitro Strip (Glucose Blood) USE DIRECTED UP TO THREE TIMES DAILY FOR HOME GLUCOSE TESTING 300 Strip 3 09/08/2023 Active Postini Ultra 2 w/Device Kit USE DIRECTED TO [...] morning. 90 Capsule 2 10/04/2023 Active Pen [place] 31G X 5 MMIndications:Type 2 diabetes mellitus [...] 12/07/2022 Bilateral impacted cerumen 10/22/2022 Atherosclerosis of [place] co ronary artery without angina pectoris 07/15/2022 [...] Per CKD protocol [facility] 10/21/2021 07/08/2022 COPD, [...] (PFIZER-Comirnaty) 06/16/2023 Pneumococcal Conjugate Vacci ne, 20-valent ([id number]) 12/07/2022 Pneumococcal Polysaccharide PPV23 (Pneumovax) 09/08/2020 Season [...] disease, without long-term current use of insulin ([facility]) Increase Lantus insulin 22 units HS Follow with [place] pharmacist for further insulin dose adjustment. Continue metformin ER 5 mg 1 tab once daily Continue Jardiance 25 mg 1 tab once daily Reduced caloric intake diabetic diet and exercise, stop diet soda - HEMOGLOBIN A1C; Future Type 2 diabetes mellitus with hemoglobin A1c goal of less than 7.5% ([facility]) Continue present medical therapy as above - HEMOGLOBIN A1C; Future 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 ([facility]) Grade 1 diastolic dysfunction Blood pressure at goal. Continue present medication Losartan 100 mg 1 tab once daily Carvedilol 25 mg 1 tab twice daily Torsemide 20 mg 1 tab once daily Atherosclerosis of [place] coronary artery of [place] heart without angina pectoris Stable Continue present medication Atorvastatin 40 mg 1 tab once daily - LIPID PANEL WITH DIRECT LDL IF TG IS HIGH; Future Chronic kidney disease, stage 3b ([facility]) Stable Avoid NSAIDs Continue to monitor renal function ILD (interstitial lung disease) ([facility]) Stable COPD, group A, by GOLD 2017 classification ([facility]) Stable GUS on CPAP Stable [...] 8:30 AM EDT Nutrition Services Nutrition Services [address] [place] [address] Aydee Barnes, ESTEBAN 30 [facility] 11 [place] [address] 12/12/2023 9:20 AM EDT [facility] [address] [place] [address] Iván Nielsen MD [address] [place] [address] Cart, Telemed Pulm Gw 132 [facility] [place] [address] 12/15/2023 8:00 AM EDT Laboratory [facility], [address] [address] Have, Lab [place] [address] [place] [address] 01/17/2024 9:00 AM EDT Office Visit [address] [place] [phone] [place] Pharmacist [address] [place] [address] [address] [place] [address] 02/16/2024 10:00 AM EDT Office Visit Sleep Disorders Ctr [facility] 132 [facility] [place] [phone] Debby Cornejo, 132 [facility] [place] [address] 03/02/2024 8:00 AM EDT Laboratory [facility], [address] [phone] Have, Lab [place] [address] [place] [address] 03/07/2024 9:00 AM EDT Office Visit [address] [place] [phone] Javy Moscoso DO [address] [place] [address] 03/08/2024 8:00 AM EDT Laboratory Laboratory Patient Service [place], [place] [address] [place] [address] [place], Lab [place] [address] [place] [address] 03/15/2024 11:00 AM EDT Office [facility] [employer] [address] [place] [phone] Katt Mullen CRNP [address] [place] [address] 04/27/2024 9:30 AM EDT Hospital Encounter [facility], Endoscopy Room [facility] [address] [place] [phone] Dominick Amador MD [address] [place] [address] 04/27/2024 9:30 AM EDT - 04/27/2024 10:15 AM EDT Surgery ENDO [facility], Endoscopy Room [facility] [address] [place] [phone] Dominick Amador MD [address] [place] [address] COLONOSCOPY FLEXIBLE PROXIMAL DIAGNOSTIC 07/24/2024 2:00 PM EST Office Visit Nephrology, [facility] 200 [facility] [place] [address] Augusto Lerner MD 200 [facility] [place] [address] 10/03/2024 11:00 AM EST Nurse Only Ancillary [address], [place] [address] [place] [address] [place] Nurse Annual Wellness Visit [address] [place] [address] Pending Results Name Type [...] TG IS HIGH Lab Routine Atherosclerosis of [place] coronary artery of [place] heart without angina pectoris Dyslipidemia, goal LDL below 70 Expected: 03/06/2024, Expires: 12/05/2024 Scheduled Procedures Name Priority Associated Diagnoses Date/Ti nv COLONOSCOPY FLEXIBLE PROXIMA L DIAGNOSTIC Recall Iron [...] COPD 03/28/2024 03/28/2023 CKD PHOS USE SMARTSET 11651 05/05/2024 090 02/2023, 02/02/2023, 01/11/2022, Additional history exists Diabetic Foot Exam 06/16/2024 06/16/2023, 06/16/2023 CKD HGB USE SMARTSET 17381 09/08/202409/08, 09/08/2023, 08/04/2023, Additional history exists Albumin/Creatinine [...] (HCC) Grade I diastolic dysfunction Atherosclerosis of [place] coronary artery of [place] heart without angina pectoris Chronic kidney disease, [...] the patient have Health Care Power of Hiv/Aids Care Nurse? No Care Teams Managing Supervisor Relationship Specialty Start Date End Date Javy Moscoso DO [address] [place] [phone] PCP - General Family Medicine 07/04/23 documented as of this encounter"
--- OUTSIDE RECORDS SUMMARY | 2024-02-25 03:37 | External Medical Summary | Summary of Care ---
Author Name Unknown Organization [facility] Address [address] [facility] [place] [address] Phone [phone] Care Team Providers Care Diamond Grader Name Role Phone Javy Moscoso DO Primary Care Provider [phone] Reason for Visit * Reason Comments Follow Up Eyes hurt behind the m, 6 months. Just had recent eye exam Encounter Details Date Type Department Care Team (Latest Contact Info) Description 12/06/2023 9:00 AM EDT Office Visit Family [facility] [address] [facility], [place] [address] [place] [address] Javy Moscoso DO [address] [address] Type 2 diabetes mellitus with stage 3b chronic kidney disease, without long-term current use of insulin ([facility])*; Type 2 diabetes mellitus with hemoglobin A1c goal of less than 7.5% ([facility]); 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 ([facility]); Grade I diastolic dysfunction; Atherosclerosis of solomon coronary artery of solomon heart without angina pectoris; Chronic kidney disease, stage 3b ([facility]); ILD (interstitial lung disease) ([facility]); COPD, group A, by GOLD 2017 classification ([facility]); GUS on CPAP; Dyslipidemia, goal [...] 09/08/2023 Active Vitamin D (Ergocalciferol) 1.25 MG (24427 UT) Oral Capsule (Drisdol)Indication s:Vitamin D deficiency Take 1 Capsule by mouth Every Month. 6 Capsule 0 09/08/2023 4 Active iCare Technologyuch Ultra In Vitro Strip (Glucose Blood) USE DIRECTED UP TO THREE TIMES DAILY FOR HOME GLUCOSE TESTING 300 Strip 3 09/08/2023 Active MOD Systems Ultra 2 w/Device Kit USE DIRECTED [...] morning. 90 Capsule 2 10/04/2023 Active Pen [place] 31G X 5 MMIndications:Type 2 diabetes mellitus [...] into each nostril in the morning. 18.2 mL 3 12/06/2023 Active Insulin Glargine Solostar 100 [...] 12/07/2022 Bilateral impacted cerumen 10/22/2022 Atherosclerosis of solomon co ronary artery without angina pectoris 07/15/2022 [...] Per CKD protocol [facility] 10/21/2021 07/08/2022 COPD, [...] (PFIZER-Comirnaty) 06/16/2023 Pneumococcal Conjugate Vacci ne, 20-valent ([id number]) 12/07/2022 Pneumococcal Polysaccharide PPV23 (Pneumovax) 09/08/2020 Season [...] disease, without long-term current use of insulin ([facility]) Increase Lantus insulin 22 units HS Follow with [place] pharmacist for further insulin dose adjustment. Continue metformin ER 5 mg 1 tab once daily Continue Jardiance 25 mg 1 tab once daily Reduced caloric intake diabetic diet and exercise, stop diet soda - HEMOGLOBIN A1C; Future Type 2 diabetes mellitus with hemoglobin A1c goal of less than 7.5% ([facility]) Continue present medical therapy as above - HEMOGLOBIN A1C; Future 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 ([facility]) Grade 1 diastolic dysfunction Blood pressure at goal. Continue present medication Losartan 100 mg 1 tab once daily Carvedilol 25 mg 1 tab twice daily Torsemide 20 mg 1 tab once daily Atherosclerosis of solomon coronary artery of solomon heart without angina pectoris Stable Continue present medication Atorvastatin 40 mg 1 tab once daily - LIPID PANEL WITH DIRECT LDL IF TG IS HIGH; Future Chronic kidney disease, stage 3b ([facility]) Stable Avoid NSAIDs Continue to monitor renal function ILD (interstitial lung disease) ([facility]) Stable COPD, group A, by GOLD 2017 classification ([facility]) Stable GUS on CPAP Stable [...] 8:30 AM EDT Nutrition Services Nutrition Services [address] [place] [address] Aydee Barnes, ESTEBAN 30 [facility] 11 [place] [address] 12/12/2023 9:20 AM EDT [facility] [address] [place] [address] Iván Nielsen MD [address] [place] [address] Cart, Telemed Pulm Gw 132 [facility] [place] [address] 12/15/2023 8:00 AM EDT Laboratory [facility], [address] [phone] Have, [address] [place] [address] 01/17/2024 9:00 AM EDT Office Visit [address] [place] [phone] [place] Pharmacist [address] [place] [address] [address] [place] [address] 02/16/2024 10:00 AM EDT Office Visit Sleep Disorders Ctr [facility] 132 [facility] [place] [phone] Debby Cornejo, 132 [facility] [place] [address] 03/02/2024 8:00 AM EDT Laboratory [facility], [address] [phone] Have, Lab Lock [address] [place] [address] 03/07/2024 9:00 AM EDT Office Visit [address] [place] [phone] Javy Moscoso DO [address] [address] 03/08/2024 8:00 AM EDT Laboratory Laboratory Patient Service [place], [place] [address] [place] [address] [place], [address] [place] [address] 03/15/2024 11:00 AM EDT Office [facility] [employer] [address] [place] [phone] Katt Mullen CRNP [address] [place] [address] 04/27/2024 9:30 AM EDT Hospital Encounter ENDO OSSC, Endoscopy Room [facility] [address] [place] [phone] Dominick Amador MD [address] [place] [address] 04/27/2024 9:30 AM EDT - 04/27/2024 10:30 AM EDT Surgery ENDO O[facility], Endoscopy Room [facility] [address] [place] [phone] Dominick Amador MD [address] [place] [address] COLONOSCOPY FLEXIBLE PROXIMAL DIAGNOSTIC 07/24/2024 2:00 PM EST Office Visit Nephrology, [facility] 200 [facility] [place] [address] Augusto Lerner MD 200 [facility] [place] [address] 10/03/2024 11:00 AM EST Nurse Only Ancillary [address], [place] [address] [place] [place] [address] [place] Nurse Annual Wellness Visit [address] [place] [place] [address] Pending Results Name Type [...] TG IS HIGH Lab Routine Atherosclerosis of solomon coronary artery of solomon heart without angina pectoris Dyslipidemia, goal LDL below 70 Expected: 03/06/2024, Expires: 12/05/2024 Scheduled Procedures Name Priority Associated Diagnoses Date/Ti wi COLONOSCOPY FLEXIBLE PROXIMA L DIAGNOSTIC Recall Iron [...] COPD 03/28/2024 03/28/2023 CKD PHOS USE SMARTSET 90737 05/05/2024 090 02/2023, 02/02/2023, 01/11/2022, Additional history exists Diabetic Foot Exam 06/16/2024 06/16/2023, 06/16/2023 CKD HGB USE SMARTSET 49401 09/08/202409/08, 09/08/2023, 08/04/2023, Additional history exists Albumin/Creatinine [...] (HCC) Grade I diastolic dysfunction Atherosclerosis of solomon coronary artery of solomon heart without angina pectoris Chronic kidney disease, [...] the patient have Health Care Power of Muck Miner Blasting? No Care Teams Diamond Grader Relationship Specialty Start Date End Date Javy Moscoso DO [address] [place] [address] PCP - General Family Medicine 07/04/23 documented as of this encounter"
--- OUTSIDE RECORDS SUMMARY | 2024-02-25 03:37 | External Medical Summary | Summary of Care ---
Author Name Unknown Organization [facility] Address [address] [facility] [place] [address] Phone [phone] Care Team Providers Care Occupational Health Coordinator Name Role Phone Javy Moscoso DO Primary Care Provider [phone] Reason for Visit * Reason Comments Re-Check * Evaluate & Treat - Unlimited Visits (Within 10 days (routine)) - Authorized Specialty Diagnoses / Procedures Referred By Justus gonsalez Referred To Contact Gastroenterology Diagnoses Melena AVM (arteriovenous malformation) of small bowel, acquired Javy Moscoso DO [address] [place] [address] Referral ID Status Reason Start Date Expiration Date Visits Requested Visits Authorized [id number] Authorized Specialty Services Required 09/08/[phone] Encounter Details Date Type Department Care Team (Late st Contact Info) Description 12/01/2023 2:30 PM EDT Office Visit Gastroenterology, [facility] [place] [address] Teddy Mullen CRNP [address] [place] [address] AVM (arteriovenous malformation) of small bowel, acquired*; Neuroendocrine neoplasm of rectum; Iron deficiency anemia due to chronic blood loss Allergies Active Allergy Reactions Criticality Noted Date Comments Lisinopril Unknown Low 11/15/2022 Verapamil Medium 06/26/2020 Heart Block documented as of this encounter (statuses as of 12/01/2023) Medications Medication Sig Dispensed Refills Start Date [...] mouth daily. 90 Tablet 3 03/08/2023 Active Additional Information Patient taking differently:500 mg OralDINNER, Reported on 09/08/2023 Carvedilol 25 MG Oral Tablet (Coreg)Indications: HTN, goal below 140/90 Take 1 Tablet by mouth 2 times a day with morning and evening meals. 180 Tablet 3 03/08/2023 Active Vitamin B-12 1000 MCG Sublingual Tablet Sublingual Place 1 Tablet under the tongue in the morning. 0 Active Atorvastatin Calcium 40 MG Oral Tablet [...] 09/08/2023 Active Vitamin D (Ergocalciferol) 1.25 MG (51051 UT) Oral Capsule (Drisdol)Indication s:Vitamin D deficiency Take 1 Capsule by mouth Every Month. 6 Capsule 0 09/08/2023 03/06/2024 Active Aptidatauch Ultra In Vitro Strip (Glucose Blood) USE DIRECTED UP TO THREE TIMES DAILY FOR HOME GLUCOSE TESTING 300 Strip 3 09/08/2023 Active PaxVax Ultra 2 w/Device Kit USE DIRECTED TO [...] morning. 90 Capsule 2 10/04/2023 Active Pen [place] 31G X 5 MMIndications:Type 2 diabetes mellitus with hyperglycemia, with long-term current use of insulin (HCC) Use as directed. Use as directed with glargine insulin once daily 100 Each 3 10/06/2023 Active Ferrous Sulfate 325 (65 Fe) MG Oral Tablet (Feosol)Indications :Iron deficiency anemia due to chronic blood loss Take 1 Tablet by mouth at bedtime. 90 Tablet 3 10/27/2023 Active Torsemide 20 MG Oral Tablet (Demadex)Indication s:HTN, goal below 140/90 TAKE ONE TABLET BY MOUTH EVERY MORNING 90 Tablet 3 11/02/2023 11/01/2024 Active Triamcinolone Acetonide 0.5 % External Cream (Aristocort) APPLY TO RASH ON ANKLE DAILY. 0 09/22/2023 Active Insulin Glargine Solostar 100 UNIT/ML Subcutaneous Solution Pen-injector (Lantus SoloStar)Indication s:Type 2 diabetes mellitus with hyperglycemia, with long-term current use of insulin (HCC) Inject 20 Units under the skin at bedtime. 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 pectoris [...] as of this encounter (statuses as of 12/01/2023) Resolved Problems Problem Noted Date Diagnosed Date [...] as of this encounter (statuses as of 12/01/2023) Immunizations Name Administration Dates Next Due COVID-19 mRNA, LNP-s, No Pre serve, 2-Dose Series (Pfizer) 07/03/2021,12/27/2020,12/06/2020 COVID-19, MRNA-LNP, 23-24, P F, 30 MCG/0.3 mL, 12 YRS AND ABOVE, IM (PFIZER-Comirnaty) 06/16/2023 Pneumococcal Conjugate Vacci ne, 20-valent ([id number]) 12/07/2022 Pneumococcal Polysaccharide PPV23 (Pneumovax) 09/08/2020 Season Influenza, Quad, PF, Adjuvanted, 65+ Yrs, IM (FLUAD) 06/03/2020 Seasonal Influenza Virus Vac cine, Unspecified Formulation 05/22/2019 Seasonal Influenza, Quadriva lent Hd (Fluzone Hd) 06/16/2023,05/06/2022,06/13/2021 TDAP (age 10 and older)(Boostrix) 03/17/2021 Zoster Vaccine Recombinant (Shingrix) 11/17/2021 documented as of this encounter Social History Tobacco Use Types Packs/Day Years Used Date Smoking Tobacco: Former Cigarettes 97 - 1994 Passive Smoke Exposure: Past Smokeless [...] Sign Reading Time Taken Comments Blood Pressure 132/70 12/01/2023 2:07 PM EDT Pulse 75 12/01/2023 2:07 PM EDT Temperature 36.6 C (97.9 F) 12/01/2023 2:07 PM ED T Respiratory Rate - - Oxygen Saturation - - Inhaled Oxygen Concentration - - Weight 105.7 kg (233 lb 1.6 oz) 12/01/2023 2:07 PM EDT Height - - Body Mass Index 34.42 09/28/2023 11:35 AM EST documented in this [...] as of this encounter Progress Notes * Teddy Mullen CRNP - 12/01/2023 2:11 PM EDT Walker Mancini is a 73 year old male that carries a hx of HTN, hypderlipidemia, DM, RLS, COPD, Sleep Apnea, hx of smoking now chews tobacco who follows in GI for NIRALI, likely from colonic AVMs, most recently seen in GI clinic in 2022, most recent GI bleed in November 2022 w drop to 6.4. Follows in Hem/onc anemia clinic. Maintained on octreotide 50 mcg/mL twice daily and pantoprazole 40 mg daily. Mychal Labs: Iron 50, ferritin 100. Latest Reference Range & Units 05/05/23 07:50 06/04/23 08:04 07/05/23 07:54 08/04/23 07:52 09/08/23 10:02 HGB 14.0 - 16.8 g/dL 12.2 (L) 13.3 (L) 15.3 14.6 15.5 HCT 40.0 - 48.4 % 40.4 43.4 49.0 (H) 47.5 47.7 EGD February 2023 - Normal esophagus. - Normal stomach. - Normal examined duodenum. - A single non-bleeding angioectasia in the jejunum. Trx w APC Colonoscopy November 2022: - One 6 mm polyp in the ascending colon, removed with a cold snare. Resected and retrieved. - One 4 mm polyp in the transverse colon, removed with a cold snare. Resected and retrieved. - One 3 mm polyp in the rectum, removed with a cold snare. Resected and retrieved. - Otherwise normal to the terminal ileum, with retroflexed views of the ascending colon and rectum. A. Colon, Ascending, polyp, Colon, polypectomy: Tubular adenoma, fragmented. B. Colon, Transverse, polyp, Colon, polypectomy: Tubular adenoma, fragmented. C. Colon, rectal polyp, Colon, polypectomy: Well differentiated neuroendocrine tumor, G1 (Carcinoid tumor). Comment (Part C): The carcinoid tumor is identified in the submucosa and laminar propria. No necrosis or mitosis is seen. Tumor cells are positive for synaptophysin, CD56, INSM1, AE1/3 ( a few cells); negative for CDX2, Chromogranin, CK7, CK20, TTF1, DC. D2-40 is negative for lymphovascular invasion . Mib1 proliferative index is 1%. Tumor extends to the deep portion of the biopsy (submucosa). Metastasis is unlikely, but should be excluded clinically. Rec surveillance in 1 yr. EXAM: BP 132/70 (BP Site: Left Arm, BP Position: Sitting, BP Cuff Size: Regular) | Pulse 75 | Temp 36.6 C (97.9 F) | Wt 105.7 kg (233 lb 1.6 oz) | BMI 34.42 kg/m | BSA 2.27 m GENERAL: 73 year old male well developed and well nourished in no acute distress SKIN: no rashes, ulcers, or spider angiomata HEENT: normocephalic, sclera clear, pharynx normal NECK: supple, no lymphadenopathy, no masses or thyroid enlargement LUNGS: clear to auscultation anterior and posterior HEART: regular rate & rhythm, no murmurs and no gallops ABDOMEN: normo-active bowel sounds, soft, non-tender, non-distended no masses, no hepatosplenomegaly, no rebound or guarding, no bruits EXTREMITIES: no palmar erythema, no edema, no skin discoloration, no clubbing, no cyanosis NEURO: no lateralizing findings, Sensory/Motor grossly normal IMPRESSION/RECOMMENDATIONS: 73 year old male with AVM (arteriovenous malformation) of small bowel, acquired (Primary)/Iron deficiency anemia due to chronic blood loss - COLONOSCOPY, DIAGNOSTIC (RECTUM) - EGD, FLEXIBLE, DIAGNOSTIC - continue octreotide injections. - Continue Omeprazole 40mg daily. Neuroendocrine neoplasm of rectum - COLONOSCOPY, DIAGNOSTIC (RECTUM) Recheck in GI clinic in 1 year sooner if problems Thank you for the opportunity to be involved in the care of this patient. AUSTIN Cavazos documented in this encounter Nursing Notes * Zee Barrera LPN - 12/01/2023 2:06 PM EDT Chief Complaint Patient presents with Re-Check documented in this encounter Plan of Treatment Upcoming Encounters Date Type Department Care Team (Late st Contact Info) Description 12/06/2023 8:00 AM EDT Office Visit [place] [address] [place] [address] [place] [address] [place], Pharmacist [address] [place] [address] [address] [place] [address] 12/06/2023 9:00 AM EDT Office Visit [place] [address] [place] [address] [place] [address] Javy Moscoso DO [address] [place] [address] 12/08/2023 8:30 AM EDT Nutrition Services Nutrition Services [place] [address] [place] [phone] Aydee Barnes, ESTEBAN 30 [facility] 11 [place] [address] 12/12/2023 9:20 AM EDT Telemedicine Pulmonary Medicine, [place] [address] [place] [address] Iván Nielsen MD [address] [place], [place] [phone] Cart, Telemed [place] Gw 132 [facility] [place] [address] 12/15/2023 8:00 AM EDT Laboratory Laboratory Patient [facility], [place] [address] [place] [address] [place], Lab Lock [address] [place], [place] [phone] 02/16/2024 10:00 AM EDT Office Visit Sleep Disorders Ctr [facility] 132 [facility] [place] [phone] Debby Cornejo DO 132 [facility] [place] [address] 03/08/2024 8:00 AM EDT Laboratory Laboratory Patient Service [place], [place] [address] [place] [phone] Have, Lab Lock [address] [place] [address] 03/15/2024 11:00 AM EDT Office Visit Hematology/Oncolog y [facility] [address] [place] [phone] Katt Mullen CRNP [address] [place] [address] [place] [address] 04/27/2024 9:30 AM EDT Hospital Encounter ENDO OSSC, Endoscopy Room [facility] 132 [facility] [place] [phone] Dominick Amador MD 132 [facility] [place] [address] 04/27/2024 9:30 AM EDT - 04/27/2024 10:30 AM EDT Surgery ENDO OSSC, Endoscopy Room [facility] [address] [place] [phone] Dominick Amador MD [address] [place] [address] COLONOSCOPY FLEXIBLE PROXIMAL DIAGNOSTIC 07/24/2024 2:00 PM EST Office Visit Nephrology, [facility] [address] [place] [address] Augusto Lerner MD [address] [place] [address] 10/03/2024 11:00 AM EST Nurse Only Ancillary [address], [place] [address] [place] [address] [place], Nurse Annual Wellness Visit [address] [place] [address] Scheduled Orders Name Type Priority Associated Diagnoses Orde r Schedule COLONOSCOPY, DIAGNOSTIC (RECTUM) Procedures Routine AVM (arteriovenous malformation) of small bowel, acquired Neuroendocrine neoplasm of rectum Iron deficiency anemia due to chronic blood loss Ordered: 12/01/2023 EGD, FLEXIBLE, DIAGNOSTIC Procedures Routine AVM (arteriovenous malformation) of small bowel, 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 Ordered: 12/01/2023 Scheduled Procedures Name Priority Associated Diagnoses Date/Ti [...] COPD 03/28/2024 03/28/2023 CKD PHOS USE SMARTSET 01398 05/05/2024 09/0 02/2023, 02/02/2023, 01/11/2022, Additional history exists Diabetic Foot Exam 06/16/2024 06/16/2023, 06/16/2023 CKD HGB USE SMARTSET 11687 09/08/202409/08, 09/08/2023, 08/04/2023, Additional history exists Albumin/Creatinine [...] as of this encounter Visit Diagnoses Diagnosis AVM (arteriovenous malformation) of small bowel, acquired- Primary Neuroendocrine neoplasm of rectum Iron deficiency anemia due to chronic blood [...] the patient have Health Care Power of Dust Brush Assembler? No Care Teams Occupational Health Coordinator Relationship Specialty Start Date End Date Javy Moscoso DO [address] [place] [address] PCP - General Family Medicine 07/04/23 documented as of this encounter"
--- OUTSIDE RECORDS SUMMARY | 2024-02-25 03:37 | External Medical Summary | Summary of Care ---
Author Name Unknown Organization [facility] Address [address] [place] [address] Phone [phone] Care Team Providers Care Motor Express Clerk Name Role Phone Javy Moscoso DO Primary Care Provider + [phone] Encounter Details Date Type Department Care Team (Latest Contact Info) Description 12/03/2023 Medication Management Stephanie Mo [facility] [address], [place] [id number] [facility] [address] [place] [address] Referred for management of medication therapy* Allergies Active Allergy Reactions Criticality Noted Date Comments Lisinopril Unknown Low 11/15/2022 Verapamil Medium 06/26/2020 Heart Block documented as of this encounter (statuses as of 12/03/2023) Medications Medication Sig Dispensed Refills Start Date [...] MOUTH EVERY MORNING 90 Tablet 3 2023 05/17/202 4 Active Losartan Potassium 100 MG Oral [...] 09/08/2023 Active Vitamin D (Ergocalciferol) 1.25 MG (51690 UT) Oral Capsule (Drisdol)Indication s:Vitamin D deficiency [...] morning. 90 Capsule 2 10/04/2023 Active Pen [place] 31G X 5 MMIndications:Type 2 diabetes mellitus [...] at bedtime. 15 mL 3 11/10/2023 Active Vitamin B-12 2500 MCG Sublingual Tablet Sublingual Place 1 Tablet under the tongue in the morning. 0 Active Vitamin B-12 1000 MCG Sublingual Tablet Sublingual Place 1 Tablet under the tongue in the morning. 0 4 Discontinue d(Medicatio n List Clean Up) Ferrous Sulfate 325 (65 Fe) MG Oral Tablet (Feosol)Indications :Iron deficiency anemia due to chronic blood loss Take 1 Tablet by mouth at bedtime. 90 Tablet 3 10/27/2023 4 Discontinue d(Medicatio n/Dose Changed) documented as of this encounter (statuses as of 12/03/2023) Active Problems Problem Noted Date Diagnosed Date [...] 12/07/2022 Bilateral impacted cerumen 10/22/2022 Atherosclerosis of [place] co ronary artery without angina pectoris 07/15/2022 [...] as of this encounter (statuses as of 12/03/2023) Resolved Problems Problem Noted Date Diagnosed Date [...] as of this encounter (statuses as of 12/03/2023) Immunizations Name Administration Dates Next Due COVID-19 mRNA, LNP-s, No Pre serve, 2-Dose Series ([employer]) 07/03/2021,12/27/2020,12/06/2020 COVID-19, MRNA-LNP, 23-24, P F, 30 MCG/0.3 mL, 12 YRS AND ABOVE, IM (PFIZER-Comirnat) 06/16/2023 Pneumococcal Conjugate Vacci ne, 20-valent ([id number]) 12/07/2022 Pneumococcal Polysaccharide PPV23 (Pneumovax) 09/08/2020 Season [...] as of this encounter Progress Notes * Pawan oCnrad, [facility] - 12/03/2023 1:56 PM EDT Walker Mancini is a 73 year old male. Objective: Review of patient's allergies indicates: Allergen Reactions Verapamil Heart Block Lisinopril Unknown Current Outpatient Medications - WARNING: List may be incomplete due to filtering Medication Sig Dispense Refill Vitamin B-12 2500 MCG Sublingual Tablet Sublingual Place 1 Tablet under the tongue in the morning. Insulin Glargine Solostar 100 UNIT/ML Subcutaneous Solution Pen-injector (Lantus SoloStar) Inject 20 Units under the skin at bedtime. 15 mL 3 Triamcinolone Acetonide 0.5 % External Cream (Aristocort) APPLY TO RASH ON ANKLE DAILY. Torsemide 20 MG Oral Tablet (Demadex) TAKE ONE TABLET BY MOUTH EVERY MORNING 90 Tablet 3 Pen [place] 31G X 5 MM Use as directed. [...] the skin twice daily. 60 mL 5 Cenifyuch Ultra 2 w/Device Kit USE DIRECTED TO TEST BLOOD SUGARS 1 Each 0 OneTouch Ultra In Vitro Strip (Glucose Blood) USE DIRECTED UP TO THREE TIMES DAILY FOR HOME GLUCOSE TESTING 300 Strip 3 tiZANidine HCl 2 MG Oral Tablet (Zanaflex) Take 1 Tablet by mouth at bedtime as needed for Muscle spasms. 90 Tablet 1 Empagliflozin 25 MG Oral Tablet (Jardiance) Take [...] 1 Tablet by mouthdaily. 90 Tablet 3 Pantoprazole Sodium 40 MG Oral Tablet Delayed Release (Protonix) TAKE ONE TABLET BY MOUTH EVERY MORNING 90 Tablet 3 Acetaminophen 500 MG Oral [...] 150g 0 CPAP every night at bedtime. Vitamin D (Ergocalciferol) 1.25 MG (20665 UT) Oral Capsule (Drisdol) Take 1 Capsule by mouth Every Month. 6 Capsule 0 Immunization History Administered Date(s) Administered COVID-19 mRNA, LNP-s, No Preserve, 2-Dose Series (Pfizer) 12/06/2020, 12/27/2020, 07/03/2021 COVID-19, MRNA-LNP, 23-24, PF, 30 MCG/0.3 mL, 12 YRS AND ABOVE, IM (PFIZER- Comirnaty) 06/16/2023 Pneumococcal Conjugate Vaccine, 20-valent ([id number]) 12/07/2022 Pneumococcal Polysaccharide PPV23 (Pneumovax) 09/08/2020 Season Influenza, Quad, PF, Adjuvanted, 65+ Yrs, IM (FLUAD) 06/03/2020 Seasonal Influenza Virus Vaccine, Unspecified Formulation 05/22/2019 Seasonal Influenza, Quadrivalent Hd (Fluzone Hd) 06/13/2021, 05/06/2022, 06/16/2023 TDAP (age 10 and older)(Boostrix) 03/17/2021 Zoster Vaccine Recombinant (Shingrix) 11/17/2021 TMR Interventions Incomplete Medication Therapy Recommendations No medication therapy recommendations to display Completed Medication Therapy Recommendations No medication therapy recommendations to display Assessment & Plan Indication, effectiveness, safety and convenience of Walker Mancini's medications were reviewed today. The patient's medical conditions were assessed, evaluated, and deemed meeting goals of drug therapy, with the following exceptions. Additional Notes: Patient appears adherent Spouse helps to manage medications Summary Time Spent: 16-30 min Supervising pharmacist who provided the service: Lashay Boyer Information Who was the recipient of the CMR service: beneficiary Language Template for the Patient Takeaway: Cuban I attest that I have reviewed and updated the patient's conditions, allergies, and medications to the best of my ability. Patient provided medication list gathered by: Lashay Boyer RPh 12/03/2023, 1:56 PM documented in this encounter Miscellaneous Notes * MTM Personal Medication List - Pawan Conrad RPh - 12/03/2023 1:37 PM EDT Medication How I take it Why I use it Prescriber Acetaminophen 500 MG Oral Tablet (Tylenol) Take 1 to 2 tablets by mouth every 6 hours as needed Pain Self Atorvastatin Calcium 40 MG Oral Tablet (Lipitor) Take 1 tablet by mouth every morning. Cholesterol Javy Moscoso DO Carvedilol 25 MG Oral Tablet (Coreg) Take 1 Tablet by mouth 2 times a day with morning and evening meals. High blood pressure Javy Moscoso DO Diclofenac Sodium 1 % External Gel (Voltaren) Apply 8 g topically to affected area 2 times a day asneeded for Pain. Apply dime sized amount to lower back up to two times a day as needed for pain Pain Marcel Britt MD Empagliflozin 25 MG Oral Tablet (Jardiance) Take 1 Tablet by mouth in the morning. Blood sugar Javy Moscoso DO Gabapentin 100 MG Oral Capsule (Neurontin) Take 1 Capsule by mouth in the morning. Pain Javy Moscoso DO Gabapentin 600 MG Oral Tablet (Neurontin) Take one tablet by mouth twice a day at noon and at bedtime in addition to a 100 mg morning dose. Pain Javy Moscoso DO Insulin Glargine Solostar 100 UNIT/ML Subcutaneous Solution Pen-injector (Lantus SoloStar) Inject 20 Units under the skin at bedtime. Diabetes Javy Moscoso DO Losartan Potassium 100 MG Oral Tablet (Cozaar) Take 1 Tablet by mouth in the morning. High blood pressure Javy Moscoso DO metFORMIN HCl ER 500 MG Oral Tablet Extended Release 24 Hour (Glucophage XR) Take 1 Tablet by mouthdaily with evening meal. Diabetes Javy Moscoso DO Octreotide Acetate 50 MCG/ML Subcutaneous Solution Prefilled Syringe Inject 50 mcg (1 syringe) under the skin twice daily. Diarrhea AUSTIN Cavazos Pantoprazole Sodium 40 MG Oral Tablet Delayed Release (Protonix) Take 1 tablet by mouth every morning Heartburn Javy Moscoso DO tiZANidine HCl 2 MG Oral Tablet (Zanaflex) Take 1 Tablet by mouth at bedtime as needed for Muscle spasms. Pain Javy Moscoso DO Torsemide 20 MG Oral Tablet (Demadex) Take 1 tablet by mouth every morning Fluid AUSTIN Thompson Triamcinolone Acetonide 0.5 % External Cream (Aristocort) Apply topically to rash on ankle daily. Rash Christie Stephens DPM Vitamin B-12 2500 MCG Sublingual Tablet Sublingual Place 1 Tablet under the tongue in the morning. General health Self Vitamin D (Ergocalciferol) 1.25 MG (70642 UT) Oral Capsule (Drisdol) Take 1 capsule by mouth once amonth. General health Javy Moscoso DO * MTM To-Do-List - Pawan Conrad RPh - 12/03/2023 1:33 PM EDT Images from the original note were not included. What we talked about: What I should do: The importance of taking your medication as prescribed Your medicine works best when taken as prescribed. It can be hard to remember to take daily medications. Consider making it a part of your daily routine. Pair taking your medication with something you do every day, like brushing your teeth or eating a meal. Consider setting daily alarms to help remind yourself when it is time to take your medicine. Using a pill box can also help you organize your medicines. Pill boxes allow you to fill each day slot with your daily medicine and help you track when your next dose is due. What we talked about: What I should do: Checking your blood sugar It is also important to monitor your blood sugar regularly. Make sure to record your readings in a log and take them with you to your appointments. Providing these readings to your healthcare providers can help them better control your blood sugar. documented in this encounter Plan of Treatment Upcoming Encounters Date Type Department Care Team (Late st Contact Info) Description 12/06/2023 8:00 AM EDT [facility] [address] [place] [address] [place], Pharmacist [address] [place] [address] 12/06/2023 9:00 AM EDT Office Visit [facility] [address] [place] [address] [place] [address] Javy Moscoso DO [address] [place] [place] [address] 12/08/2023 8:30 AM EDT Nutrition Services Nutrition Services [facility] [address] [place] [place] [phone] Aydee Barnes, RDN 30 [facility] [address] [place] [address] 12/12/2023 9:20 AM EDT [facility] [address] [place] [address] Iván Nielsen MD [address] [place] [address] Cart, Telemed Pulm Gw [address] [facility] [place] [address] 12/15/2023 8:00 AM EDT [facility] [phone] [place], [address] [address] 02/16/2024 10:00 AM EDT Office Visit Sleep Disorders Ctr [facility] [address] [place] [phone] Debby Cornejo, DO 132 [facility] [place] [address] 03/08/2024 8:00 AM EDT Laboratory Laboratory Patient Service [place], [address] [place] [phone] Brendon Shankar [address] [place] [address] 03/15/2024 11:00 AM EDT Office Visit Hematology/Oncolog y Е[place]атерина [place] [address] [place] [phone] Katt Mullen CRNP 400 [facility] [place] [address] 04/27/2024 9:30 AM EDT Hospital Encounter ENDO [facility], Endoscopy Room [facility] [address] [facility] [place] [phone] Dominick Amador MD [address] [place] [address] 04/27/2024 9:30 AM EDT - 04/27/2024 10:30 AM EDT Surgery ENDO [facility], Endoscopy Room [facility] [address] [place] [phone] Dominick Amador MD [address] [place] [address] COLONOSCOPY FLEXIBLE PROXIMAL DIAGNOSTIC 07/24/2024 2:00 PM EST Office Visit Nephrology, [facility] [place] [address] Augusto Lerner MD 200 [facility] [place] [address] 10/03/2024 11:00 AM EST Nurse Only Ancillary [address], [place] [address] [place] [place] [phone] [place], Nurse Annual Wellness Visit [address] [place] [address] Scheduled Procedures Name Priority Associated Diagnoses Date/Ti [...] COPD 03/28/2024 03/28/2023 CKD PHOS USE SMARTSET 97386 05/05/20240 02/2023, 02/02/2023, 01/11/2022, Additional history exists Diabetic Foot Exam 06/16/2024 06/16/2023, 06/16/2023 CKD HGB USE SMARTSET 37342 09/08/202409/08, 09/08/2023, 08/04/2023, Additional history exists Albumin/Creatinine [...] as of this encounter Visit Diagnoses Diagnosis Referred for management of medication therapy- Primary Encounter for long-term (current) use of [...] the patient have Health Care Power of Mail Messenger Contractor? No Care Teams Motor Express Clerk Relationship Specialty Start Date End Date Javy Moscoso DO [address] [place] [place] [address] PCP - General Family Medicine 07/04/23 documented as of this encounter
--- OUTSIDE RECORDS SUMMARY | 2024-02-25 03:38 | External Medical Summary | Summary of Care ---
Author Name Unknown Organization [facility] Address [address] [place] [address] Phone [phone] Care Team Providers Care Mail Distribution Scheme Examiner Name Role Phone Javy Moscoso DO Primary Care Provider + [phone] Reason for Visit * Reason Comments Dosage Adjustment Via Phone (anticoag Cl inic) Diabetes Follow-Up Encounter Details Date Type Department Care Team (Late st Contact Info) Description 10/13/2023 1:30 PM [facility] Telemedicine Pharmacy, [place] [address] [place] [phone] Pharmacist1, [facility] [place] [address] [place] [address] Type 2 diabetes mellitus with hyperglycemia, with long-term current use of insulin ([facility])* Allergies Active Allergy Reactions Criticality Noted Date Comments Lisinopril Unknown Low 11/15/2022 Verapamil Medium 06/26/2020 Heart Block documented as of this encounter (statuses as of 10/13/2023) Medications Medication Sig Dispensed Refills Start Date [...] 6 hours as needed 0 03/09/2022 Active Ferrous Sulfate 325 (65 Fe) MG Oral Tablet (Feosol) Take 1 Tablet by mouth daily with breakfast. 90 Tablet 3 11/01/2022 Active Additional Information Patient taking differently:325 mg OralHS, Reported on 03/03/2023 Pantoprazole Sodium 40 MG Oral Tablet Delayed Release (Protonix)Indicatio ns:Gastroesophageal reflux disease without esophagitis TAKE ONE TABLET BY MOUTH EVERY MORNING 90 Tablet 3 2023 2024 Active Torsemide 20 MG Oral Tablet (Demadex) TAKE ONE TABLET BY MOUTH EVERY MORNING 100 Tablet 3 09/14/2022 12/11/2023 Active Losartan Potassium 100 MG Oral Tablet [...] 09/08/2023 Active Vitamin D (Ergocalciferol) 1.25 MG (77553 UT) Oral Capsule (Drisdol)Indication s:Vitamin D deficiency [...] the morning. 90 Capsule 2 10/04/2023 Active Insulin Glargine Solostar 100 UNIT/ML Subcutaneous Solution Pen-injector (Lantus SoloStar)Indication s:Type 2 diabetes mellitus with hyperglycemia, with long-term current use of insulin (HCC) Inject 15 Units under the skin at bedtime. 15 mL 5 10/06/2023 Active Pen [place] 31G X 5 MMIndications:Type 2 diabetes mellitus with hyperglycemia, with long-term current use of insulin (HCC) Use as directed. Use as directed with glargine insulin once daily 100 Each 3 10/06/2023 Active documented as of this encounter (statuses as of 10/13/2023) Active Problems Problem Noted Date Diagnosed Date [...] 12/07/2022 Bilateral impacted cerumen 10/22/2022 Atherosclerosis of [place] co ronary artery without angina pectoris 07/15/2022 [...] as of this encounter (statuses as of 10/13/2023) Resolved Problems Problem Noted Date Diagnosed Date [...] as of this encounter (statuses as of 10/13/2023) Immunizations Name Administration Dates Next Due COVID-19 mRNA, LNP-s, No Pre serve, 2-Dose Series (Pfizer) 07/03/2021,12/27/2020,12/06/2020 COVID-19, MRNA-LNP, 23-24, P F, 30 MCG/0.3 mL, 12 YRS AND ABOVE, IM (PFIZER-Comirnaty) 06/16/2023 Pneumococcal Conjugate Vacci ne, 20-valent ([id number]) 12/07/2022 Pneumococcal Polysaccharide PPV23 (Pneumovax) 09/08/2020 Season Influenza, Quad, PF, Adjuvanted, 65+ Yrs, IM (FLUAD) 06/03/2020 Seasonal Influenza Virus Vac cine, Unspecified Formulation 05/22/2019 Seasonal Influenza, Quadriva lent Hd (Fluzone Hd) 06/16/2023,05/06/2022,06/13/2021 TDAP (age 10 and older)(Boostrix) 03/17/2021 Zoster Vaccine Recombinant (Shingrix) 11/17/2021 documented as of this encounter Social History Tobacco Use Types Packs/Day Years Used Date Smoking Tobacco: Former Cigarettes 1 20 Q uit: 1994 Passive Smoke Exposure: Past Smokeless Tobacco: [...] this encounter Progress Notes * Hans Kaba, [facility] - 10/13/2023 3:08 PM EST Images from the original note were not included. After connecting to the patient via telephone, the patient was identified by name and date of . Patient was then informed that this was a telephone call only visit. The patient agreed to participate. Visit Disposition: Routine follow-up Total call duration was 24 minutes. Medication Therapy Disease Management Clinic - Diabetes Management Progress Note Walker Mancini, identified by name and date of , is a 73 year old male being seen for diabetes management/education. Patient presents for return diabetic visit. DIABETES: Current diabetic medications: Metformin 500 mg ER 1 tab daily (at bedtime) Jardiance 25 mg daily STOP Glimepiride 4 mg BID INCREASE Lantus 15 units at bedtime Medication Injection Site: Abdomen [...] yes BP Readings from Last 3 Encounters: 09/28/23 124/72 09/15/23 134/73 09/08/23 100/62 Blood pressure at goal: yes HYPERLIPIDEMIA: Patient is taking moderate or high intensity statin: yes HEALTH MAINTENANCE REVIEW: Health Maintenance Due Topic Date Due Hepatitis B (1 of 3 - Risk 3-dose series) Never done Diabetic Eye Exam 11/03/2023 ASSESSMENT & PLAN: ICD-10-CM 1. Type 2 diabetes mellitus with hyperglycemia, with long-term current use of insulin ([facility]) E11.65 Z79.4 BG Readings - Blood sugars have improved. No reports of hypoglycemia. Continue to monitor twice daily. Working on paperwork to [employer] GCM, will notify office if received prior to next appointment. Medications - Reviewed current regimen, patient is adherent to regimen. Stopped Glimepiride, started Lantus at bedtime. Continue Lantus at current dose. Will consider slight dose increase to target morning sugars remain elevated. Diet, Exercise, Lifestyle - No significant lifestyle changes since last visit. Patient is agreeable to SMBG 2 time(s) daily. Patient aware to contact clinic if any hypoglycemia before next visit. MEDICATION CHANGES: no change Diabetic Medications: Metformin 500 mg ER 1 tab daily (at bedtime) Jardiance 25 mg daily Lantus 15 units at bedtime HEALTH MAINTENANCE INTERVENTIONS: Labs: Up to Date Immunizations: phone visit Foot Exam: Up to Date Eye Exam: Complete with next PCP visit on 12/08/23 Annual Wellness Visit: Up to Date FOLLOW UP: Return to clinic in 4 weeks 11/10/2023 Hans Kaba RPh Clinical Pharmacist - Intelligence Group Supervisor Medication Therapy Management Clinic 10/13/2023, 3:08 PM documented in this encounter Plan of Treatment Upcoming Encounters Date Type Department Care Team (Late st Contact Info) Description 11/03/2023 2:40 PM EST Office Visit NephrologyЕкатерина [address] [place] [address] Augusto Lerner MD [address] [place] [address] 11/10/2023 8:40 AM EDT [facility] [address] [place] [address] Pharmacist1, [facility] [address] [place] [address] 12/01/2023 2:30 PM EDT Office Visit Gastroenterology, [facility] 132 [facility] [place] [address] Teddy Mullen CRNP 132 [facility] [place] [address] 12/05/2023 9:40 AM EDT Office Visit NephrologyЕкатерина [address] [place] [address] Augusto Lerner MD [address] [place] [address] 12/08/2023 8:30 AM EDT Nutrition Services Nutrition Services [address] [place] [address] [address] [facility] [place] [address] Aydee Barnes, RDN 30 [facility] [place] [address] [place] [address] 12/08/2023 9:00 AM EDT Office Visit [address] [place] [address] Javy Moscoso [address] [place] [address] 12/12/2023 9:20 AM EDT Telemedicine Pulmonary Medicine, [place] [address] [place], [place] [phone] Iván Nielsen MD [address] [place], [place] [phone] Cart, Telemed Pulm Gw 132 [facility] [place] [address] 12/15/2023 8:00 AM EDT Laboratory Laboratory [facility] Service [facility], [place] [address] [place] [address] [place], [address] [place] [address] 02/16/2024 10:00 AM EDT Office Visit Sleep Disorders Ctr [facility] 132 [facility] [place] [phone] Debby Cornejo, 132 [facility] [place] [address] 03/08/2024 8:00 AM EDT Laboratory Laboratory Patient Service Center, [place] [address] [place] [address] [place], [address] [place] [address] 03/15/2024 11:00 AM EDT Office Visit Hematology/Oncology [facility] [place] [address] Katt Mullen CRNP [facility] [place] [address] 10/03/2024 11:00 AM EST Nurse Only Ancillary [address], [place] [address] [place] [address] [place], Nurse Annual Wellness Visit [address] [place] [phone] Scheduled Procedures Name Priority Associated Diagnoses Date/Ti me COLONOSCOPY FLEXIBLE PROXIMAL DIAGNOSTIC Recall History of colon polyps Health Maintenance Due Date Last Done Comments Hepatitis B (1 of 3 - Risk 3-dose series) 2012 Diabetic Eye Exam 11/03/2023 11/02/2022, , 11/05/2021 COLONOSCOPY-ANNUAL AGES 18-100 12/11/2023 12/10/2022, 12/10/2022, 12/15/2020, Additional history exists GFR 03/08/2024 09/08/2023, 1202/2023, 05/05/2023, Additional history exists HbA1c 03/08/2024 09/08/2023, 1202/2023, 02/02/2023, Additional history exists O2 ASSESSMENT COMPLETED IN PAST YEAR FOR COPD 03/28/2024 03/28/2023 CKD PHOS USE SMARTSET 09242 05/05/2024 090 02/2023, 02/02/2023, 01/11/2022, Additional history exists Diabetic Foot Exam 06/16/2024 06/16/2023, 06/16/2023 CKD HGB USE SMARTSET 65984 09/08/202409/08, 09/08/2023, 08/04/2023, Additional history exists Albumin/Creatinine Ratio 09/09/2024 09/09/2023, 11/0 11/2021 Depression Screening 09/28/2024 09/28/2023 DTaP,Tdap,and Td Vaccines (2 - Td or Tdap) 03/17/2031 03/17/2021 AAA Screening Completed 06/20/2020, 06, 01/12/2019 Alpha-1 Antitrypsin Completed 03/15/2022 Fecal Occult [...] long-term current use of insulin (HCC)- Primary documented in this encounter Advance Directives Latest Code Status on File Code Status Date Activated Date Inactivated Comments Full Code 02/15/2019 9:23 PM 02/18/2019 2:08 PM This order reflects the patients wishes and were consensually agreed upon. Question Answer Comments Discussion of Advance Directives occurred with: Patient Does the patient have a Living Will? No Does the patient have Health Care Power of Mangle Catcher? No Care Teams Mail Distribution Scheme Examiner Relationship Specialty Start Date End Date Javy Moscoso DO [address] [place] [phone] PCP - General Family Medicine 07/04/23 documented as of this encounter
--- OUTSIDE RECORDS SUMMARY | 2024-02-25 03:38 | External Medical Summary | Summary of Care ---
Author Name Unknown Organization [facility] Address [address] [place] [address] Phone [phone] Care Team Providers Care Biological Inspector Name Role Phone Javy Moscoso DO Primary Care Provider [phone] Reason for Visit * Reason Comments Dosage Adjustment In Person (Anticoag Cl inic) Diabetes Follow-Up Encounter Details Date Type Department Care Team (Late st Contact Info) Description 11/10/2023 8:40 AM EDT Office Visit Family Practice [address], [place] [address] [place] [address] [place], Pharmacist [address] [place] [address] Type 2 diabetes mellitus with hyperglycemia, with long-term current use of insulin (HCC)* Allergies Active Allergy Reactions Criticality Noted Date Comments Lisinopril Unknown Low 11/15/2022 Verapamil Medium 06/26/2020 Heart Block documented as of this encounter (statuses as of 11/10/2023) Medications Medication Sig Dispensed Refills Start Date [...] Sodium 40 MG Oral Tablet Delayed Release (Protonix)Indicati ons:Gastroesophage al reflux disease without esophagitis TAKE ONE TABLET BY MOUTH EVERY MORNING 90 Tablet 3 2023 4 Active Losartan Potassium 100 MG Oral Tablet (Cozaar)Indication s:HTN, goal below 140/90 Take 1 Tablet by mouth in the morning. 90 Tablet 3 03/08/2023 Active metFORMIN HCl ER 500 MG Oral Tablet Extended Release 24 Hour (Glucophage XR)Indications:Typ e 2 diabetes mellitus with stage 3b chronic kidney disease, without long-term current use of insulin (HCC) Take 1 Tablet by mouth daily. 90 Tablet 3 03/08/2023 Active Additional Information Patient taking differently:500 mg OralDINNER, Reported on 09/08/2023 Carvedilol 25 MG Oral Tablet (Coreg)Indications :HTN, goal below 140/90 Take 1 Tablet by mouth 2 times a day with morning and evening meals. 180 Tablet 3 03/08/2023 Active Vitamin B-12 1000 MCG Sublingual Tablet Sublingual Place 1 Tablet under the tongue in the morning. 0 Active Atorvastatin Calcium 40 MG Oral Tablet (Lipitor)Indicatio ns:Dyslipidemia, goal LDL below 70 TAKE ONE TABLET BY MOUTH EVERY MORNING 90 Tablet 3 06/11/2023 4 Active Empagliflozin 25 MG Oral Tablet (Jardiance)Indicat ions:Type 2 diabetes mellitus with hyperglycemia, without long-term current use of insulin (HCC),Type 2 diabetes mellitus with stage 3b chronic kidney disease, without long-term current use of insulin (HCC) Take 1 Tablet by mouth in the morning. 100 Tablet 3 08/05/2023 Active tiZANidine HCl 2 MG Oral Tablet (Zanaflex)Indicati ons:Spinal stenosis of lumbar region without neurogenic claudication Take 1 Tablet by mouth at bedtime as needed for Muscle spasms. 90 Tablet 1 09/08/2023 Active Vitamin D (Ergocalciferol) 1.25 MG (82778 UT) Oral Capsule (Drisdol)Indicatio ns:Vitamin D deficiency Take 1 Capsule by mouth Every Month. 6 Capsule 0 09/08/2023 4 Active [place] Ultra In Vitro Strip (Glucose Blood) USE [...] 09/26/2023 Active Gabapentin 100 MG Oral Capsule (Neurontin)Indicat ions:Bilateral lumbar radiculopathy Take 1 Capsule by mouth in the morning. 90 Capsule 2 10/04/2023 Active Pen [place] 31G X 5 MMIndications:Type 2 diabetes mellitus with hyperglycemia, with long-term current use of insulin (HCC) Use as directed. Use as directed with glargine insulin once daily 100 Each 3 10/06/2023 Active Ferrous Sulfate 325 (65 Fe) MG Oral Tablet (Feosol)Indication s:Iron deficiency anemia due to chronic blood loss Take 1 Tablet by mouth at bedtime. 90 Tablet 3 10/27/2023 Active Torsemide 20 MG Oral Tablet (Demadex)Indicatio ns:HTN, goal below 140/90 TAKE ONE TABLET BY MOUTH EVERY MORNING 90 Tablet 3 11/02/2023 5 Active Triamcinolone Acetonide 0.5 % External Cream (Aristocort) APPLY TO RASH ON ANKLE DAILY. 0 09/22/2023 Active Insulin Glargine Solostar 100 UNIT/ML Subcutaneous Solution Pen-injector (Lantus SoloStar)Indicatio ns:Type 2 diabetes mellitus with hyperglycemia, with long-term current use of insulin ([facility]) Inject 20 Units under the skin at bedtime. 15 mL 3 11/10/2023 Active Insulin Glargine Solostar 100 UNIT/ML Subcutaneous Solution Pen-injector (Lantus SoloStar)Indicatio ns:Type 2 diabetes mellitus with hyperglycemia, with long-term current use of insulin ([facility]) Inject 15 Units under the skin at bedtime. 15 mL 5 10/06/2023 4 Discontinue d(Refill) documented as of this encounter (statuses as of 11/10/2023) Active Problems Problem Noted Date Diagnosed Date [...] as of this encounter (statuses as of 11/10/2023) Resolved Problems Problem Noted Date Diagnosed Date Resolved Date Benign hypertension with sta ge 3b chronic kidney disease 03/08/2022 07/08/2022 Overview: Per CKD protocol Hypertensive heart disease w [facility] congestive heart failure 10/21/2021 07/08/2022 COPD, severity [...] as of this encounter (statuses as of 11/10/2023) Immunizations Name Administration Dates Next Due COVID-19 mRNA, LNP-s, No Pre serve, 2-Dose Series (Pfizer) 07/03/2021,12/27/2020,12/06/2020 COVID-19, MRNA-LNP, 23-24, P F, 30 MCG/0.3 mL, 12 YRS AND ABOVE, IM (Technorides-Comirnat) 06/16/2023 Pneumococcal Conjugate Vacci ne, 20-valent ([id number]) 12/07/2022 Pneumococcal Polysaccharide PPV23 (Pneumovax) 09/08/2020 Season [...] Progress Notes * Hans Kaba, [facility] - 11/10/2023 8:38 AM EDT Images from the original note [...] mg daily Lantus 15 units at bedtime Losartan 100 mg daily Atorvastatin 40 mg daily Medication Injection Site: Abdomen Lifestyle: Diet: unchanged [...] yes BP Readings from Last 3 Encounters: 11/03/23 136/73 09/28/23 124/72 09/15/23 134/73 Blood pressure at goal: yes HYPERLIPIDEMIA: Patient is taking moderate or high intensity statin: yes HEALTH MAINTENANCE REVIEW: Health Maintenance Due Topic Date Due Diabetic Eye Exam 11/03/2023 ASSESSMENT & PLAN: ICD-10-CM 1. Type 2 diabetes mellitus with hyperglycemia, with long-term current use of insulin ([facility]) E11.65 Z79.4 BG Readings - Blood sugars uncontrolled. Fasting and bedtime BG remain elevated. Patient awaiting Dexcom delivery, plan to start next visit. Medications - Reviewed current regimen, patient is adherent to regimen. Reasonable to increase Lantus. Kidney function stable, continue metformin and Jardiance. Diet, Exercise, Lifestyle - No significant lifestyle changes since last visit. Patient is agreeable to SMBG 2 time(s) daily. Patient aware to contact clinic if any hypoglycemia before next visit. MEDICATION CHANGES: yes, see below; preferred pharmacy: [facility] ([facility]) Diabetic Medications: Metformin 500 mg ER 1 tab daily (at bedtime) Jardiance 25 mg daily INCREASE Lantus 20 units at bedtime HEALTH MAINTENANCE INTERVENTIONS: Labs: Up to Date Immunizations: Up to Date Foot Exam: Up to Date Eye Exam: Up to Date Annual Wellness Visit: Up to Date FOLLOW UP: Return to clinic in 4 weeks 12/06/2023 Hans Kaba RPh Clinical Pharmacist - Equity Holder Medication Therapy Management [facility] 11/10/2023, 8:38 AM documented in this encounter Plan of Treatment Upcoming Encounters Date Type Department Care Team (Late st Contact Info) Description 12/01/2023 2:30 PM EDT Office Visit Gastroenterology, [facility] [address] [place] [address] Teddy Mullen CRNP [address] [place] [address] 12/05/2023 9:40 AM EDT Office Visit Nephrology, [facility] [place] [address] Augusto Lerner MD 200 [facility] [place] [address] 12/06/2023 8:00 AM EDT Office Visit Family [facility] [place] [address] [place] [address] [place] [address] [place] [address] 12/06/2023 9:00 AM EDT Office Visit [facility] [place] [address] [place] [id number] Javy Moscoso DO [address] [place] [address] 12/08/2023 8:30 AM EDT Nutrition Services Nutrition Services [address] [facility], [place] [address] [place] [address] Aydee Barnes, [place] 30 [facility] [address] [place] [address] 12/12/2023 9:20 AM EDT Telemedicine Pulmonary Medicine, [place] [address] [place] [address] Iván Nielsen MD [address], [place] [id number] [place], Telemed Pulm Gw 132 [facility] [place] [address] 12/15/2023 8:00 AM EDT Laboratory [facility], [place] [address] [place] [phone] [place], [address] [place] [address] 02/16/2024 10:00 AM EDT Office Visit [facility] 132 [facility] [place] [id number] Debby Cornejo, [address] [facility] [place] [address] 03/08/2024 8:00 AM EDT Laboratory Laboratory Patient Service [place], [place] [address] [place] [address] [place], [address] [place] [address] 03/15/2024 11:00 AM EDT Office Visit Hematology/Oncology Екатерина Avila [place] 200 [facility] [place] [phone] Katt Mullen CRNP [address] [place] [address] 07/24/2024 2:00 PM EST Office Visit Nephrology, [facility] [address] [place] [address] Augusto Lerner MD 200 [facility] [place] [address] 10/03/2024 11:00 AM EST Nurse Only Ancillary [address], [place] [address] [place] [address] [place], Nurse Annual Wellness Visit [address] [place] [phone] Scheduled Procedures Name Priority Associated Diagnoses Date/Ti [...] COPD 03/28/2024 03/28/2023 CKD PHOS USE SMARTSET 88877 05/05/2024 090 02/2023, 02/02/2023, 01/11/2022, Additional history exists Diabetic Foot Exam 06/16/2024 06/16/2023, 06/16/2023 CKD HGB USE SMARTSET 03994 09/08/202409/08, 09/08/2023, 08/04/2023, Additional history exists Albumin/Creatinine [...] the patient have Health Care Power of Ring Sorter? No Care Teams Biological Inspector Relationship Specialty Start Date End Date Javy Moscoso DO [address] [place] [address] PCP - General Family Medicine 07/04/23 documented as of this encounter
--- OUTSIDE RECORDS SUMMARY | 2024-02-25 03:38 | External Medical Summary | Summary of Care ---
Author Name Unknown Organization [facility] Address [address] [place] [address] Phone [phone] Care Team Providers Care Esl Instructional Assistant Name Role Phone Javy Moscoso DO Primary Care Provider + [phone] Reason for Visit * Reason Comments Return Visit Chronic Kidney Disease (CKD) Hypertension Encounter Details Date Type Department Care Team (Late st Contact Info) Description 11/03/2023 2:40 PM EST Office Visit Nephrology, [facility] [address] [address] [place] [address] Augusto Lerner MD 200 [facility] [place] [address] Stage 3b chronic kidney disease (HCC)*; Type 2 diabetes mellitus with stage 3b chronic kidney disease, without long-term current use of insulin (HCC) Allergies Active Allergy Reactions Criticality Noted Date Comments Lisinopril Unknown Low 11/15/2022 Verapamil Medium 06/26/2020 Heart Block documented as of this encounter (statuses as of 11/03/2023) Medications Medication Sig Dispensed Refills Start Date [...] 09/08/2023 Active Vitamin D (Ergocalciferol) 1.25 MG (99277 UT) Oral Capsule (Drisdol)Indication s:Vitamin D deficiency Take 1 Capsule by mouth Every Month. 6 Capsule 0 09/08/2023 03/06/2024 Active Re-Compose Ultra In Vitro Strip (Glucose Blood) USE DIRECTED UP TO THREE TIMES DAILY FOR HOME GLUCOSE TESTING 300 Strip 3 09/08/2023 Active Re-Compose Ultra 2 w/Device Kit USE DIRECTED TO [...] bedtime. 15 mL 5 10/06/2023 Active Pen [place] 31G X 5 MMIndications:Type 2 diabetes mellitus [...] RASH ON ANKLE DAILY. 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 COPD, group A, by GOLD 2017 classification 08/08 Overview: Per COPD GOLD Classification ILD (interstitial lung disease) 04/27/2023 Centrilobular emphysema 04/27/2023 BEARDNE (dyspnea on exertion) 03/11/2023 Risk and functional assessment 03/08/2023 Iron deficiency anemia due to chronic blood loss 12/17/2022 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: Advised repeat colonoscopy November 2023 PSVT (paroxysmal supraventricular tachycardia) 0 12/07/2022 Bilateral impacted cerumen 10/22/2022 Atherosclerosis of ione co ronary artery without angina pectoris 07/15/2022 [...] as of this encounter (statuses as of 11/03/2023) Resolved Problems Problem Noted Date Diagnosed Date [...] as of this encounter (statuses as of 11/03/2023) Immunizations Name Administration Dates Next Due COVID-19 mRNA, LNP-s, No Pre serve, 2-Dose Series (FindIt) 07/03/2021,12/27/2020,12/06/2020 COVID-19, MRNA-LNP, 23-24, P F, 30 MCG/0.3 mL, 12 YRS AND ABOVE, IM (PFIZER-Comirnaty) 06/16/2023 Pneumococcal Conjugate Vacci ne, 20-valent ([id number]) 12/07/2022 Pneumococcal Polysaccharide PPV23 (Pneumovax) 09/08/2020 Season [...] Sign Reading Time Taken Comments Blood Pressure 136/73 11/03/2023 2:43 PM EST Pulse 65 11/03/2023 2:43 PM EST Temperature 37.3 C (99.2 F) 11/03/2023 2:43 PM ES T Respiratory Rate 20 11/03/2023 2:43 PM EST Oxygen Saturation 92% 11/03/2023 2:43 PM EST Inhaled Oxygen Concentration - - Weight 105.9 kg (233 lb 6.4 oz) 11/03/2023 2:43 PM EST Height - - Body Mass Index 34.47 09/28/2023 11:35 AM EST documented in this [...] as of this encounter Progress Notes * Augusto Lerner MD - 11/03/2023 2:50 PM EST REASON FOR CONSULT: CKD 3 HPI: Walker Mancini is a 73 year old male --type 2 diabetes for 3 yrs with recent A1c 9, obstructive sleep apnea, regular alcohol use, hypertension, hyperlipidemia, hypertensive heart disease and CKD stage 3 with baseline creatinine of 1.4--1.7. Patient had a creatinine of 1.5 in June 2018. Patientwas hospitalized on 02/14/2019 at [facility] with bradycardia, acute kidney injury with peak creatinine of2.7 and hyperkalemia. Bradycardia was secondary to heart block from verapamil. had hospital admission November 2022 for GI bleeding what his hemoglobin dropped down to 6 and he required 3 units of blood transfusion. Since last visit ------- He feels relatively good at this time. Edema and shortness of breathis better. No hospital admissions emergency visits infections or surgery. No more issues with GI bleeding and his hemoglobin is 15.5 but he is still on the chronic daily octreotide injection. He recently started on insulin Appetite is good. Review of Systems: General ROS: negative for - chills or fever Psychological ROS: negative for - mood swings ENT ROS: negative for - nasal congestion or nasal discharge Endocrine ROS: negative Respiratory ROS: no cough, shortness of breath, or wheezing Cardiovascular ROS: no chest pain or dyspnea on exertion Gastrointestinal ROS: no abdominal pain, change in bowel habits, or black or bloody stools Genito-Urinary ROS: no dysuria, trouble voiding, or hematuria Musculoskeletal ROS: negative for - muscle pain Neurological ROS: no TIA or stroke symptoms Dermatological ROS: negative for rash Past Medical History: Diagnosis Date Acute respiratory failure with hypercapnia (HCC) 02/14/2019 ARNOLDO (acute kidney injury) (HCC) 02/14/2019 Asthma COPD (chronic obstructive pulmonary disease) (HCC) Hyperkalemia 02/14/2019 Lactic acidosis 02/14/2019 Respiratory acidosis 02/14/2019 Sleep apnea, obstructive Symptomatic bradycardia 02/14/2019 Past Surgical History: Procedure Laterality Date COLONOSCOPY, DIAGNOSTIC (RECTUM) 12/15/2020 Multi polyps, internal hemorrhoids / biopsy benign adenomatous polyps / 2 year recall / COLONOSCOPYFLEXIBLE PROXIMAL DIAGNOSTIC performed by Dunia De La Vega MD at ENDOSCOPY [facility] COLONOSCOPY, DIAGNOSTIC (RECTUM) 12/10/2022 benign adenomatous polyps & small neuroendocrine growth (carcinoid) in the rectum, repeat 1 yr / COLONOSCOPY FLEXIBLE PROXIMAL DIAGNOSTIC performed by Chase Reyes MD at ENDOSCOPY [facility] EGD, FLEXIBLE, DIAGNOSTIC N/A 03/17/2022 [facility], EGD z-line regular 41 cm from incisors, gastritis, otherwise normal / biopsies normal / EGD, FLEXIBLE, DIAGNOSTIC N/A 03/28/2023 single non-bleeding angioectasia jejunum, treated with APC/ESOPHAGOGASTRODUODENOSCOPY (EGD), FLEXIBLE, TRANSORAL, DIAGNOSTIC performed by Dominick Amador MD at OR [facility] INJECT DX/THER SUBSTANCE INTERLAMINAR LUMBAR/SACRAL W IMAGE GUIDE 09/08/2022 INJECTION SPINE LUMBAR OR SACRAL performed by Yon Lizarraga DO at OR [facility] SMALL BOWEL ENDOSCOPY DIAGNOSTIC N/A 05/06/2022 mild pseudomelanosis of stomach/few red spots, possible AVM's in mid jejunum/biopsies normal/SMALL INTESTINE ENDOSCOPY DIAGNOSTIC performed by Frederick Leija MD at OR [facility] SMALL BOWEL ENDOSCOPY DIAGNOSTIC 12/06/2022 normal / SMALL INTESTINE ENDOSCOPY DIAGNOSTIC performed by Dominick Amador MD at ENDOSCOPY [facility] Review of patient's allergies indicates: Allergen Reactions [...] (Glucophage XR) Take 1 Tablet by mouthdaily. (Patient taking differently: Take 1 Tablet by mouth daily with dinner.) 90 Tablet 3 Carvedilol 25 MG Oral Tablet (Coreg) Take 1 Tablet by mouth 2 times a day with morning and evening meals. 180 Tablet 3 Vitamin B-12 1000 MCG Sublingual Tablet Sublingual Place 1 Tablet under the tongue in the morning. Atorvastatin Calcium 40 MG Oral Tablet (Lipitor) TAKE ONE TABLET BY MOUTH EVERY MORNING 90 Tablet 3 Empagliflozin 25 MG Oral Tablet (Jardiance) Take 1 Tablet by mouth in the morning. 100 Tablet 3 tiZANidine HCl 2 MG Oral Tablet (Zanaflex) Take 1 Tablet by mouth at bedtime as needed for Muscle spasms. 90 Tablet 1 Vitamin D (Ergocalciferol) 1.25 MG (10637 UT) Oral Capsule (Drisdol) Take 1 Capsule [...] mouth in the morning. 90 Capsule 2 Insulin Glargine Solostar 100 UNIT/ML Subcutaneous Solution Pen-injector (Lantus SoloStar) Inject 15 Units under the skin at bedtime. 15 mL 5 Pen [place] 31G X 5 MM Use as directed. Use as directed with glargine insulin once daily 100 Each 3 Ferrous Sulfate 325 (65 Fe) MG Oral Tablet (Feosol) Take 1 Tablet by mouth at bedtime. 90 Tablet 3 Torsemide 20 MG Oral Tablet (Demadex) TAKE ONE TABLET BY MOUTH EVERY MORNING 90 Tablet 3 Triamcinolone Acetonide 0.5 % External Cream (Aristocort) APPLY TO RASH ON ANKLE DAILY. No current facility-administered medications for this visit. Family History No family history of kidney disease. Social History Socioeconomic History Marital status: Spouse name: Not on file Number of children: Not on file Years of education: Not on file Highest education level: Not on file Occupational History Not on file Social Needs Financial resource strain: Not on file Food insecurity: Worry: Not on file Inability: Not on file Transportation needs: Medical: Not on file Non-medical: Not on file Tobacco Use Smoking status: Never Smoker Smokeless tobacco: Current User Substance and Sexual Activity Alcohol use: Not on file Drug use: Not on file Sexual activity: Not on file Lifestyle Physical activity: Days per week: Not on file Minutes per session: Not on file Stress: Not on file Relationships Social connections: Talks on phone: Not on file Gets together: Not on file Attends confucianism service: Not on file Active member of club or organization: Not on file Attends meetings of clubs or organizations: Not on file Relationship status: Not on file Intimate partner violence: Fear of current or ex partner: Not on file Emotionally abused: Not on file Physically abused: Not on file Forced sexual activity: Not on file Other Topics Concern Not on file Social History Narrative Not on file BP 136/73 (BP Site: Right Arm, BP Position: Sitting, BP Cuff Size: Large) | Pulse 65 | Temp 37.3 C (99.2 F) (Tympanic) | Resp 20 | Wt 105.9 kg (233 lb 6.4 oz) | SpO2 92% | BMI 34.47 kg/m | BSA 2.27 m PHYSICAL EXAM: GENERAL: Well-appearing, Alert, in no acute distress. NECK: Supple, no JVD. LYMPH: No cervical or supraclavicular lymphadenopathy. LUNGS: Clear to auscultation bilaterally, no respiratory distress. CARDIAC: Regular rate and rhythm, normal S1/S2, no murmurs, rubs, or gallops. ABDOMEN: Soft, non-tender, non-distended, bowel sounds present. EXT/MSK: No edema SKIN: No rash, no jaundice. NEURO: Oriented x3, fine tremors LABS/STUDIES: NEPH-FLOW Latest Ref Rng & Units 03/19/2020 05/08/2020 06/03/2020 Bun 6 - 20 mg/dL 17 21 (H) 22 (H) Cr 0.6 - 1.2 mg/dL 1.3 (H) 1.6 (H) 1.5 (H) eGFR >60 mL/min eGFR >60 57.7 (L) 44.3 (L) 47.9 (L) K 3.5 - 5.1 mmol/L 4.2 4.5 4.5 Hb 14.0 - 16.8 g/dL 15.1 NEPH-FLOW Latest Ref Rng & Units 07/21/2020 09/08/2020 12/09/2020 Bun 6 - 20 mg/dL 17 18 BUN 6 - 20 mg/dL 22 (H) Cr 0.6 - 1.2 mg/dL 1.5 (H) 1.4 (H) CREATININE 0.6 - 1.2 mg/dL 1.3 (H) eGFR >60 mL/min eGFR >60 48.7 (L) 49.5 (L) EGFR >=60.0 mL/min 54.0 (L) K 3.5 - 5.1 mmol/L 4.3 4.2 POTASSIUM 3.5 - 5.1 mmol/L 4.6 Hb 14.0 - 16.8 g/dL NEPH-FLOW Latest Ref Rng & Units 12/09/2020 03/17/2021 07/08/2021 Bun 6 - 20 mg/dL 22 (H) 24 (H) 28 (H) Cr 0.6 - 1.2 mg/dL 1.3 (H) 1.5 (H) 1.7 (H) eGFR >=60 mL/min 54.0 (L) 47.2 (L) 39 (L) eGFR >60 K 3.5 - 5.1 mmol/L 4.6 4.6 4.2 Hb 14.0 - 16.8 g/dL 15.4 14.7 NEPH-FLOW Latest Ref Rng & Units 02/24/2022 03/04/2022 03/15/2022 Bun 6 - 20 mg/dL 36 (H) 36 (H) 20 Cr 0.6 - 1.2 mg/dL 1.9 (H) 1.8 (H) 1.7 (H) eGFR >=60 mL/min 37 (L) 39 (L) 44 (L) eGFR >60 K 3.5 - 5.1 mmol/L 4.9 4.8 4.4 Hb 14.0 - 16.8 g/dL 9.6 (L) 9.8 (L) Pro/Cr ratio <150 mg/g ASSESSMENT/PLAN: Stage 3b chronic kidney disease (HCC) (Primary) CKD stage 3 B with baseline creatinine around 1.6---1.8 from combination hypertension diabetes. Diabetes is Now controlled. and this happened after Jardiance was started. Strongly advise that we needto see A1c at least under 7.5% consistently. Blood pressure seems controlled and even slightly low so will stop Hydralazine. Renal prognosis is fairly good. Recent blood work done was reviewedwith the patient and shows stable kidney function. GFR 45 creatinine 1.6 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) Blood pressure seems somewhat low and with ongoing issues with possible GI bleeding I do not want borderline low blood pressure so. Follow Up: Return in about 6 months (around 05/05/2024) for Clinic Visit. | For: Clinic Visit Augusto Lerner MD documented in this encounter Nursing Notes * Molly Kirkland LPN - 11/03/2023 2:43 PM EST Patient identified by verbal name and date of .Return visit No recent inpatient hospital staysor ED visits No surgery Pt notes Occasional SOB with exertion No lower extremity edema Last labs 09/16/23 documented in this encounter Plan of Treatment Upcoming Encounters Date Type Department Care Team (Late st Contact Info) Description 11/10/2023 8:40 AM EDT Office Visit Family Practice [address] [place] [phone] [place], Pharmacist [address] [place] [address] 12/01/2023 2:30 PM EDT Office Visit Gastroenterology, [facility] [address] [place] [address] Teddy Mullen CRNP [address] [place] [address] 12/05/2023 9:40 AM EDT Office Visit Nephrology, [facility] [address] [facility] [place] [address] Augusto Lerner MD [address] [place] [address] 12/08/2023 8:30 AM EDT Nutrition Services Nutrition Services [address] [place] [address] [address] [place], [place] [phone] Aydee Barnes, RDN 30 [facility] [address] [place] [address] 12/08/2023 9:00 AM EDT Office Visit Family Practice 65 [facility] [address] [place] [address] Javy Moscoso DO [address] [place] [address] 12/12/2023 9:20 AM EDT Telemedicine Pulmonary Medicine, [place] [address] [place] [address] Iván Nielsen MD [address] [place] [address] [place], Telemed Pulm 132 [facility] [place] [address] 12/15/2023 8:00 AM EDT Laboratory Laboratory [facility], [address] [phone] [address] 02/16/2024 10:00 AM EDT Office Visit Sleep Disorders Ctr [facility] 132 [facility] [place] [phone] Debby Cornejo, DO [address] [place] [address] 03/08/2024 8:00 AM EDT Laboratory Laboratory Patient Service [address] [phone] [place], Lab [facility] [address] [place] [address] 03/15/2024 11:00 AM EDT Office Visit Hematology/Oncology [facility] [place] 200 [facility] [place] [phone] Katt Mullen CRNP 400 [facility] [place] [address] 07/24/2024 2:00 PM EST Office Visit Nephrology, [facility] [address] [facility] [address] [place] [address] Augusto Lerner MD 200 [facility] [place] [address] 10/03/2024 11:00 AM EST Nurse Only Ancillary 65 [facility], [place] [address] [place] [address] [place], Nurse Annual Wellness Visit [address] [place] [address] Scheduled Procedures Name Priority [...] COPD 03/28/2024 03/28/2023 CKD PHOS USE SMARTSET 74040 05/05/2024 09/0 02/2023, 02/02/2023, 01/11/2022, Additional history exists Diabetic Foot Exam 06/16/2024 06/16/2023, 06/16/2023 CKD HGB USE SMARTSET 86870 09/08/202409/08, 09/08/2023, 08/04/2023, Additional history exists Albumin/Creatinine [...] as of this encounter Visit Diagnoses Diagnosis Stage 3b chronic kidney disease (HCC)- Primary Type 2 diabetes mellitus with stage 3b chronic kidney disease, without long-term current use of insulin (HCC) documented in this encounter Advance Directives Latest Code Status on File Code Status Date Activated Date Inactivated Comments Full Code 02/15/2019 9:23 PM 02/18/2019 2:08 PM This order reflects the patients wishes and were consensually agreed upon. Question Answer Comments Discussion of Advance Directives occurred with: Patient Does the patient have a Living Will? No Does the patient have Health Care Power of Speedometer Mechanic? No Care Teams Esl Instructional Assistant Relationship Specialty Start Date End Date Javy Moscoso DO [address] [place] [address] PCP - General Family Medicine 07/04/23 documented as of this encounter"
--- OUTSIDE RECORDS SUMMARY | 2024-02-25 03:38 | External Medical Summary | Summary of Care ---
Author Name Unknown Organization [facility] Address [address] [address] Phone [phone] Care Team Providers Care Jewel Hole Rough Opener Name Role Phone Javy Moscoso DO Primary Care Provider + [phone] Reason for Visit * Reason Comments eRx-Medication Refill Encounter Details Date Type Department Care Team (Late st Contact Info) Description 10/27/2023 Refill Sleep Disorders Ctr [facility] [address] [place] [address] Debby Cornejo DO [address] [place] [address] Iron deficiency anemia due to chronic blood loss* Allergies Active Allergy Reactions Criticality Noted Date Comments Lisinopril Unknown Low 11/15/2022 Verapamil Medium 06/26/2020 Heart Block documented as of this encounter (statuses as of 10/27/2023) Medications Medication Sig Dispensed Refills Start Date End Date Status CPAP every night at bedtime. 0 Active Diclofenac Sodium 1 % External Gel (Voltaren) Apply 8 g topically to affected area 2 times a day as needed for Pain. Apply dime sized amount to lower back up to two times a day as needed for pain 150 g 0 2 Active Acetaminophen 500 MG Oral Tablet (Tylenol) Take 1 to 2 tablets by mouth every 6 hours as needed 0 2 Active Pantoprazole Sodium 40 MG Oral Tablet Delayed Release (Protonix)Indicati ons:Gastroesophage al reflux disease without esophagitis TAKE ONE TABLET BY MOUTH EVERY MORNING 90 Tablet 3 3 01/13/20 24 Active Torsemide 20 MG Oral Tablet (Demadex) TAKE ONE TABLET BY MOUTH EVERY MORNING 100 Tablet 3 3 12/11/19 24 Active Losartan Potassium 100 MG Oral Tablet (Cozaar)Indication s:HTN, goal below 140/90 Take 1 Tablet by mouth in the morning. 90 Tablet 3 3 Active metFORMIN HCl ER 500 MG Oral Tablet Extended Release 24 Hour (Glucophage XR)Indications:Typ e 2 diabetes mellitus with stage 3b chronic kidney disease, without long-term current use of insulin (HCC) Take 1 Tablet by mouth daily. 90 Tablet 3 3 Active Additional Information Patient taking differently:500 mg OralDINNER, Reported on 09/08/2023 Carvedilol 25 MG Oral Tablet (Coreg)Indications :HTN, goal below 140/90 Take 1 Tablet by mouth 2 times a day with morning and evening meals. 180 Tablet 3 3 Active Vitamin B-12 1000 MCG Sublingual Tablet Sublingual Place 1 Tablet under the tongue in the morning. 0 Active Atorvastatin Calcium 40 MG Oral Tablet (Lipitor)Indicatio ns:Dyslipidemia, goal LDL below 70 TAKE ONE TABLET BY MOUTH EVERY MORNING 90 Tablet 3 3 06/10/20 24 Active Empagliflozin 25 MG Oral Tablet (Jardiance)Indicat ions:Type 2 diabetes mellitus with hyperglycemia, without long-term current use of insulin (HCC),Type 2 diabetes mellitus with stage 3b chronic kidney disease, without long-term current use of insulin (HCC) Take 1 Tablet by mouth in the morning. 100 Tablet 3 3 Active tiZANidine HCl 2 MG Oral Tablet (Zanaflex)Indicati ons:Spinal stenosis of lumbar region without neurogenic claudication Take 1 Tablet by mouth at bedtime as needed for Muscle spasms. 90 Tablet 1 4 Active Vitamin D (Ergocalciferol) 1.25 MG (21383 UT) Oral Capsule (Drisdol)Indicatio ns:Vitamin D deficiency Take 1 Capsule by mouth Every Month. 6 Capsule 0 4 03/06/20 24 Active OneTouch Ultra In Vitro Strip (Glucose Blood) USE DIRECTED UP TO THREE TIMES DAILY FOR HOME GLUCOSE TESTING 300 Strip 3 4 Active vocaltapTouch Ultra 2 w/Device Kit USE DIRECTED TO TEST BLOOD SUGARS 1 Each 0 4 Active Octreotide Acetate 50 MCG/ML Subcutaneous Solution Prefilled Syringe Inject 50 mcg (1 syringe) under the skin twice daily. 60 mL 5 4 Active Gabapentin 600 MG Oral Tablet (Neurontin) TAKE ONE TABLET BY MOUTH TWICE A DAY AT NOON AND AT BEDTIME IN ADDITION TO A 100MG DOSE IN THE MORNING 180 Tablet 1 4 Active Gabapentin 100 MG Oral Capsule (Neurontin)Indicat ions:Bilateral lumbar radiculopathy Take 1 Capsule by mouth in the morning. 90 Capsule 2 4 Active Insulin Glargine Solostar 100 UNIT/ML Subcutaneous Solution Pen-injector (Lantus SoloStar)Indicatio ns:Type 2 diabetes mellitus with hyperglycemia, with long-term current use of insulin (HCC) Inject 15 Units under the skin at bedtime. 15 mL 5 4 Active Pen [place]ilvie 31G X 5 MMIndications:Type 2 diabetes mellitus with hyperglycemia, with long-term current use of insulin (HCC) Use as directed. Use as directed with glargine insulin once daily 100 Each 3 4 Active Ferrous Sulfate 325 (65 Fe) MG Oral Tablet (Feosol)Indication s:Iron deficiency anemia due to chronic blood loss Take 1 Tablet by mouth at bedtime. 90 Tablet 3 4 Active Ferrous Sulfate 325 (65 Fe) MG Oral Tablet (Feosol) Take 1 Tablet by mouth daily with breakfast. 90 Tablet 3 3 10/27/19 24 Discontinued documented as of this encounter (statuses as of 10/27/2023) Active Problems Problem Noted Date Diagnosed Date [...] as of this encounter (statuses as of 10/27/2023) Resolved Problems Problem Noted Date Diagnosed Date [...] as of this encounter (statuses as of 10/27/2023) Immunizations Name Administration Dates Next Due COVID-19 mRNA, LNP-s, No Pre serve, 2-Dose Series (Talking Data) 07/03/2021,12/27/2020,12/06/2020 COVID-19, MRNA-LNP, 23-24, P F, 30 MCG/0.3 mL, 12 YRS AND ABOVE, IM (PFIZER-Comirnat) 06/16/2023 Pneumococcal Conjugate Vacci ne, 20-valent ([id number]) 12/07/2022 Pneumococcal Polysaccharide PPV23 (Pneumovax) 09/08/2020 Season [...] encounter Miscellaneous Notes * Telephone Encounter - Jackie Mullen CRNP - 10/27/2023 12:11 PM EST Signed Prescriptions: Disp Refills Ferrous Sulfate 325 (65 Fe) MG Oral Tablet*90 Tab*3 Sig: Take 1 Tablet by mouth at bedtime.Authorizing Provider: JACKIE MULLEN * Telephone Encounter - Milagros Graves CRNP - 10/27/2023 9:07 AM EST Pending Prescriptions: Disp Refills Ferrous Sulfate 325 (65 Fe) MG Oral Tablet*90 Tab*3 Sig: TAKE 1 TABLET BY MOUTH EVERY DAY WITH BREAKFAST * Telephone Encounter - Milagros Graves CRNP - 10/27/2023 9:05 AM EST Covering for Dr. Cornejo. Defer management of iron to Hematology. Was seen by AUSTIN Cooper in August for NIRALI d/t chronic blood loss. documented in this encounter Plan of Treatment Upcoming Encounters Date Type Department Care Team (Late st Contact Info) Description 11/03/2023 2:40 PM EST Office Visit NephrologyЕкатерина [address] [place], [place] [address] Augusto Lerner MD [address] [place] [address] 11/10/2023 8:40 AM EDT Office Visit Family Practice 65 [facility], [place] [address] [place] [address] [place] Pharmacist [address] [place] [address] 12/01/2023 2:30 PM EDT Office Visit Gastroenterology, [facility] 132 [facility] [place] [address] Teddy Mullen CRNP 132 [facility] [address] 12/05/2023 9:40 AM EDT Office Visit Nephrology, [facility] 200 [facility] [place] [address] Augusto Lerner MD 200 [facility] [place] [address] 12/08/2023 8:30 AM EDT Nutrition Services Nutrition Services [address] [place] [address] [address] [place] [address] Aydee Barnes RDN 30 [facility] 11 [place] [address] 12/08/2023 9:00 AM EDT Office Visit Family Practice [address] [place] [address] [address] [place] [phone] Javy Moscoso DO [address] [place] [phone] 12/12/2023 9:20 AM EDT Telemedicine Pulmonary Medicine, [place] [address] [place] [address] Iván Nielsen MD [address] [place] [address] Cart, Telemed Pulm Gw 132 [facility] [place] [address] 12/15/2023 8:00 AM EDT Laboratory [facility], [address] [phone] [place], Lab [address] [place] [address] 02/16/2024 10:00 AM EDT Office Visit Sleep Disorders Ctr [facility] [address] [place] [phone] Debby Cornejo, [address] [place] [address] 03/08/2024 8:00 AM EDT Laboratory Laboratory [facility] Service Center, [place] [address] [place] [address] [facility] [address] [place] [address] 03/15/2024 11:00 AM EDT Office Visit Hematology/Oncology [facility] 200 [facility] [phone] Jackie Mullen CRNP 400 [facility] [address] 10/03/2024 11:00 AM EST Nurse Only Ancillary 65 [facility], [place] [address] [place] [address] [place], Nurse Annual Wellness Visit [address] [place] [address] Scheduled Procedures Name Priority [...] COPD 03/28/2024 03/28/2023 CKD PHOS USE SMARTSET 07104 05/05/2024 09/0 02/2023, 02/02/2023, 01/11/2022, Additional history exists Diabetic Foot Exam 06/16/2024 06/16/2023, 06/16/2023 CKD HGB USE SMARTSET 24704 09/08/202409/08, 09/08/2023, 08/04/2023, Additional history exists Albumin/Creatinine [...] deficiency anemia secondary to blood loss (chronic) documented in this encounter Advance Directives Latest Code Status on File Code Status Date Activated Date Inactivated Comments Full Code 02/15/2019 9:23 PM 02/18/2019 2:08 PM This order reflects the patients wishes and were consensually agreed upon. Question Answer Comments Discussion of Advance Directives occurred with: Patient Does the patient have a Living Will? No Does the patient have Health Care Power of Oil Operator? No Care Teams Jewel Hole Rough Opener Relationship Specialty Start Date End Date Javy Moscoso DO [address] [place] [address] PCP - General Family Medicine 07/04/23 documented as of this encounter
--- OUTSIDE RECORDS SUMMARY | 2024-02-25 03:38 | External Medical Summary | Summary of Care ---
Author Name Unknown Organization [facility] Address [address] [place] [address] Phone [phone] Care Team Providers Care Physical Fitness Teacher Name Role Phone Javy Moscoso DO Primary Care Provider + [phone] Encounter Details Date Type Department Care Team (Late st Contact Info) Description 10/11/2023 Population Health External Data Unspecified Department Allergies Active Allergy Reactions Criticality Noted Date Comments Lisinopril Unknown Low 11/15/2022 Verapamil Medium 06/26/2020 Heart Block documented as of this encounter (statuses as of 10/11/2023) Medications Medication Sig Dispensed Refills Start Date [...] 09/08/2023 Active Vitamin D (Ergocalciferol) 1.25 MG (02690 UT) Oral Capsule (Drisdol)Indication s:Vitamin D deficiency Take 1 Capsule by mouth Every Month. 6 Capsule 0 09/08/2023 03/06/2024 Active [employer] Ultra In Vitro Strip (Glucose Blood) USE DIRECTED UP TO THREE TIMES DAILY FOR HOME GLUCOSE TESTING 300 Strip 3 09/08/2023 Active [employer] Ultra 2 w/Device Kit USE DIRECTED TO [...] bedtime. 15 mL 5 10/06/2023 Active Pen [place] 31G X 5 MMIndications:Type 2 diabetes mellitus with hyperglycemia, with long-term current use of insulin (HCC) Use as directed. Use as directed with glargine insulin once daily 100 Each 3 10/06/2023 Active documented as of this encounter (statuses as of 10/11/2023) Active Problems Problem Noted Date Diagnosed Date [...] 12/07/2022 Bilateral impacted cerumen 10/22/2022 Atherosclerosis of [place] coos co ronary artery without angina pectoris 07/15/2022 [...] as of this encounter (statuses as of 10/11/2023) Resolved Problems Problem Noted Date Diagnosed Date [...] as of this encounter (statuses as of 10/11/2023) Immunizations Name Administration Dates Next Due COVID-19 mRNA, LNP-s, No Pre serve, 2-Dose Series ([employer]el[employer]inc (Droppy)) 07/03/2021,12/27/2020,12/06/2020 COVID-19, MRNA-LNP, 23-24, P F, 30 MCG/0.3 mL, 12 YRS AND ABOVE, IM (PFIZER-Comirnaty) 06/16/2023 Pneumococcal Conjugate Vacci ne, 20-valent ([id number]) 12/07/2022 Pneumococcal Polysaccharide PPV23 (Pneumovax) 09/08/2020 Season [...] st Contact Info) Description 10/13/2023 1:30 PM EST Telemedicine Pharmacy, [place] [address] [place] [address] Pharmacist1, [facility] [place] [address] [place] [address] 12/01/2023 2:30 PM EDT Office Visit Gastroenterology, [facility] [address] [place] [address] [address] Teddy Mullen CRNP 132 [place] [address] 12/05/2023 9:40 AM EDT Office Visit Nephrology, [facility] [address] [place] [address] Augusto Lerner MD 200 [facility] [place], [place] [address] 12/08/2023 8:30 AM EDT Nutrition Services Nutrition Services 65 [facility] [address] [place] [address] Aydee Barnes, ESTEBAN 30 [facility] 11 [place] [address] 12/08/2023 9:00 AM EDT Office Visit Family Practice [address] [place] [address] [place] [address] Javy Moscoso DO [address] [place] [address] 12/12/2023 9:20 AM EDT Telemedicine Pulmonary Medicine, [place] [address] [place], [place] [phone] Iván Nielsen MD [address] [place], [place] [phone] [place], Aureliaed Pulm Gw 132 [facility] [address] 12/15/2023 8:00 AM EDT Laboratory Laboratory [facility], [address] [phone] [address] [address] 02/16/2024 10:00 AM EDT [facility] 132 [facility] [place] [phone] Debby Cornejo, DO 132 [facility] [address] 03/08/2024 8:00 AM EDT Laboratory Laboratory Patient Service [place], [address] [place] [phone] [facility] [place] [address] 03/15/2024 11:00 AM EDT Office Visit Hematology/Oncology [address] [place] 200 [facility] [place] [address] Katt Mullen CRNP 400 [facility] [place] [address] 10/03/2024 11:00 AM EST Nurse Only Ancillary [address], [facility] [address] [place] [address] [place], Nurse Annual Wellness Visit [address] [place] [address] Scheduled Procedures Name Priority [...] COPD 03/28/2024 03/28/2023 CKD PHOS USE SMARTSET 43216 05/05/2024 0902/2023, 02/02/2023, 01/11/2022, Additional history exists Diabetic Foot Exam 06/16/2024 06/16/2023, 06/16/2023 CKD HGB USE SMARTSET 85253 09/08/202409/08, 09/08/2023, 08/04/2023, Additional history exists Albumin/Creatinine [...] the patient have Health Care Power of Physical Damage Appraiser? No Care Teams Physical Fitness Teacher Relationship Specialty Start Date End Date Javy Moscoso DO [address] [place] [phone] PCP - General Family Medicine 07/04/23 documented as of this encounter
--- OUTSIDE RECORDS SUMMARY | 2024-02-25 03:38 | External Medical Summary | Summary of Care ---
Author Name Unknown Organization [facility] Address [address] [place] [address] Phone [phone] Care Team Providers Care Metal Refiner Name Role Phone Javy Moscoso DO Primary Care Provider + [phone] Encounter Details Date Type Department Care Team (Late st Contact Info) Description 11/24/2023 Population Health External Data Unspecified Department Allergies Active Allergy Reactions Criticality Noted Date Comments Lisinopril Unknown Low 11/15/2022 Verapamil Medium 06/26/2020 Heart Block documented as of this encounter (statuses as of 11/29/2023) Medications Medication Sig Dispensed Refills Start Date [...] 09/08/2023 Active Vitamin D (Ergocalciferol) 1.25 MG (17782 UT) Oral Capsule (Drisdol)Indication s:Vitamin D deficiency [...] morning. 90 Capsule 2 10/04/2023 Active Pen [place] 31G X 5 MMIndications:Type 2 diabetes mellitus [...] as of this encounter (statuses as of 11/29/2023) Active Problems Problem Noted Date Diagnosed Date [...] 12/07/2022 Bilateral impacted cerumen 10/22/2022 Atherosclerosis of [place] co ronary artery without angina pectoris 07/15/2022 [...] as of this encounter (statuses as of 11/29/2023) Resolved Problems Problem Noted Date Diagnosed Date [...] as of this encounter (statuses as of 11/29/2023) Immunizations Name Administration Dates Next Due COVID-19 mRNA, LNP-s, No Pre serve, 2-Dose Series (ContactPoint) 07/03/2021,12/27/2020,12/06/2020 COVID-19, MRNA-LNP, 23-24, P F, 30 MCG/0.3 mL, 12 YRS AND ABOVE, IM (PFIZER-Comirnaty) 06/16/2023 Pneumococcal Conjugate Vacci ne, 20-valent ([id number]) 12/07/2022 Pneumococcal Polysaccharide PPV23 (Pneumovax) 09/08/2020 Season Influenza, Quad, PF, Adjuvanted, 65+ Yrs, IM (FLUAD) 06/03/2020 Seasonal Influenza Virus Vac cine, Unspecified Formulation 05/22/2019 Seasonal Influenza, Quadriva lent Hd (Fluzone Hd) 06/16/2023,05/06/2022,06/13/2021 TDAP (age 10 and older)(Boostrix) 03/17/2021 Zoster Vaccine Recombinant (Shingrix) 11/17/2021 documented as of this encounter Social History Tobacco Use Types Packs/Day Years Used Date Smoking Tobacco: Former Cigarettes 20 1 - 1994 Passive Smoke Exposure: Past Smokeless [...] 12/01/2023 2:30 PM EDT Office Visit Gastroenterology, [facility] [address] [place] [address] Teddy Mullen CRNP [address] [place] [address] 12/05/2023 9:40 AM EDT Office Visit Nephrology, [address] [place] [address] Augusto Lerner MD [address] [place] [address] 12/06/2023 8:00 AM EDT Office Visit Family Practice 65 [facility] [address] [place] [place] [address] [place], Pharmacist [address] [place] [place] [phone] 12/06/2023 9:00 AM EDT Office Visit Family Practice 65 [facility] [place] [address] [place] [address] Javy Moscoso, DO [address] [place] [address] 12/08/2023 8:30 AM EDT Nutrition Services Nutrition Services 65 [facility] [address] [place] [address] Aydee Barnes RDN 30 [facility] 11 [place] [address] 12/12/2023 9:20 AM EDT Telemedicine Pulmonary Medicine, [place] [address] [place] [address] Iván Nielsen MD [address] [place] [address] Cart, Telemed Pulm 132 [facility] [address] 12/15/2023 8:00 AM EDT Laboratory Laboratory Patient Service Center, [address] [phone] [address] 02/16/2024 10:00 AM EDT Office Visit [facility] Disorders Ctr [facility] 132 [facility] [phone] Debby Cornejo, DO [address] [place] [address] 03/08/2024 8:00 AM EDT Laboratory Laboratory Patient Service [address] [phone] Havemaría elena, Lab Lock [address] [place] [address] 03/15/2024 11:00 AM EDT Office Visit Hematology/Oncology [address] [place] 200 [facility] [place] [phone] Katt Mullen CRNP 400 [facility] [place] [address] 07/24/2024 2:00 PM EST Office Visit Nephrology, [facility] 200 [facility] [place] [address] Augusto Lerner MD 200 [facility] [place] [address] 10/03/2024 11:00 AM EST Nurse Only Ancillary 65 [facility], [place] [address] [place] [phone] [place], Nurse Annual Wellness Visit [address] [place] [address] Scheduled Procedures Name Priority Associated Diagnoses Date/Ti me COLONOSCOPY FLEXIBLE PROXIMAL DIAGNOSTIC Recall History of colon polyps Health Maintenance Due Date Last Done Comments Diabetic Eye Exam 11/03/2023 11/02/2022, , 11/05/2021 COLONOSCOPY-ANNUAL AGES 18-100 12/11/2023 12/10/2022, 12/10/2022, 12/15/2020, Additional history exists GFR 03/08/2024 09/08/2023, 0 02/2023, 05/05/2023, Additional history exists HbA1c 03/08/2024 09/08/2023, 12/0 02/2023, 02/02/2023, Additional history exists O2 ASSESSMENT COMPLETED IN PAST YEAR FOR COPD 03/28/2024 03/28/2023 CKD PHOS USE SMARTSET 55684 05/05/[address]240 02/2023, 02/02/2023, 01/11/2022, Additional history exists Diabetic Foot Exam 06/16/2024 06/16/2023, 06/16/2023 CKD HGB USE SMARTSET 65457 09/08/202409/08, 09/08/2023, 08/04/2023, Additional history exists Albumin/Creatinine [...] the patient have Health Care Power of Digital Designer? No Care Teams Metal Refiner Relationship Specialty Start Date End Date Javy Moscoso DO [address] [place] [phone] PCP - General Family Medicine 07/04/23 documented as of this encounter
--- OUTSIDE RECORDS SUMMARY | 2024-02-25 03:38 | External Medical Summary | Summary of Care ---
Author Name Unknown Organization [facility] Address [address] [place] [facility] [place] [address] Phone [phone] Care Team Providers Care Grout Machine Tender Name Role Phone Javy Moscoso DO Primary Care Provider + [phone] Reason for Visit * Reason Comments Medication Refill Encounter Details Date Type Department Care Team (Late st Contact Info) Description 11/02/2023 Refill Cardiology, [facility] [address] [place] [address] Sebas Everett DO [address] [place] [address] HTN, goal below 140/90* Allergies Active Allergy Reactions Criticality Noted Date Comments Lisinopril Unknown Low 11/15/2022 Verapamil Medium 06/26/2020 Heart Block documented as of this encounter (statuses as of 11/02/2023) Medications Medication Sig Dispensed Refills Start Date [...] 09/08/2023 Active Vitamin D (Ergocalciferol) 1.25 MG (28907 UT) Oral Capsule (Drisdol)Indicatio ns:Vitamin D deficiency Take 1 Capsule by mouth Every Month. 6 Capsule 0 09/08/2023 4 Active LaComunity Ultra In Vitro Strip (Glucose Blood) USE DIRECTED UP TO THREE TIMES DAILY FOR HOME GLUCOSE TESTING 300 Strip 3 09/08/2023 Active LaComunity Ultra 2 w/Device Kit USE DIRECTED TO [...] bedtime. 15 mL 5 10/06/2023 Active Pen [place] 31G X 5 MMIndications:Type 2 diabetes mellitus [...] MORNING 90 Tablet 3 11/02/2023 5 Active Torsemide 20 MG Oral Tablet (Demadex) TAKE ONE TABLET BY MOUTH EVERY MORNING 100 Tablet 3 09/14/2022 4 Discontinue d(Refill) documented as of this encounter (statuses as of 11/02/2023) Active Problems Problem Noted Date Diagnosed Date [...] as of this encounter (statuses as of 11/02/2023) Resolved Problems Problem Noted Date Diagnosed Date [...] as of this encounter (statuses as of 11/02/2023) Immunizations Name Administration Dates Next Due COVID-19 mRNA, LNP-s, No Pre serve, 2-Dose Series (Fuze) 07/03/2021,12/27/2020,12/06/2020 COVID-19, MRNA-LNP, 23-24, P F, 30 MCG/0.3 mL, 12 YRS AND ABOVE, IM (PFIZER-Comirnat) 06/16/2023 Pneumococcal Conjugate Vacci ne, 20-valent ([id number]) 12/07/2022 Pneumococcal Polysaccharide PPV23 (Pneumovax) 09/08/2020 Season [...] encounter Miscellaneous Notes * Telephone Encounter - Dre Lucas CRNP - 11/02/2023 9:20 AM EST Signed Prescriptions: Disp Refills Torsemide 20 MG Oral Tablet (Demadex) 90 Tab*3 Sig: TAKE ONE TABLET BY MOUTH EVERY MORNING Authorizing Provider: DRE LUCAS * Telephone Encounter - Katt Naik COT - 11/02/2023 8:47 AM ESTPending Prescriptions: Disp Refills Torsemide 20 MG Oral Tablet (Demadex) 90 Tab*3 Sig: TAKE ONE TABLET BY MOUTH EVERY MORNING * Telephone Encounter - Katt Naik COT - 11/02/2023 8:47 AM EST Did you pend patient's preferred pharmacy and medication before forwarding?yes Pharmacy: [facility] Pending Prescriptions: Disp Refills Torsemide 20 MG Oral Tablet (Demadex) 90 Tab*3 Sig: TAKE ONE TABLET BY MOUTH EVERY MORNING Last Visit: 09/05/2023 (in office), 11/29/2019 (telemedicine) Next Visit: Visit date not found If no future appointments scheduled, and last appointment is greater than a year ago, please schedule patient for a follow-up appointment Last date the medication was ordered: 09-14-2022 Is this request for a controlled substance?No [...] Office Visit NephrologyЕкатер[facility] [address] [place] [address] Augusto Lerner MD 200 [facility] [place] [address] 11/10/2023 8:40 AM EDT Office Visit Family Practice 65 [facility], [place] [address] [place] [address] [place], Pharmacist [address] [place] [address] [address] [place] [address] 12/01/2023 2:30 PM EDT Office Visit Gastroenterology, [facility] [address] [address] Teddy Mullen CRNP [address] [place] [address] 12/05/2023 9:40 AM EDT Office Visit NephrologyЕкатерина [address] [place] [address] Augusto Lerner MD [address] [place] [address] 12/08/2023 8:30 AM EDT Nutrition Services Nutrition Services 65 [facility] [address] [place] [address] Aydee Barnes, ESTEBAN 30 [facility] 11 [place] [address] 12/08/2023 9:00 AM EDT Office Visit Family Practice 65 [facility] [address] [place] [place] [address] Javy Moscoso DO [address] [place] [address] 12/12/2023 9:20 AM EDT Telemedicine Pulmonary Medicine, [place] [address] [place] [address] Iván Nielsen MD [address] [place] [address] Cart, Telemed Pulm Gw 132 [facility] [place] [address] 12/15/2023 8:00 AM EDT Laboratory Laboratory Patient Service [place], [place] [address] [place] [phone] [place], Lab [place] [address] [place] [address] 02/16/2024 10:00 AM EDT Office Visit Sleep Disorders Ctr [facility] 132 [facility] [place] [phone] Debby Cornejo, DO 132 [facility] [place] [address] 03/08/2024 8:00 AM EDT Laboratory Laboratory Patient Service [place], [place] [address] [place] [address] [place], Lab [place] [address] [place] [address] 03/15/2024 11:00 AM EDT Office [facility] [place] 200 [facility] [place] [address] Katt Mullen CRNP [address] [place] [address] 10/03/2024 11:00 AM EST Nurse Only Ancillary [address], [place] [address] [place] [address] [place], Nurse Annual Wellness Visit [address] [place] [address] Scheduled Procedures Name Priority [...] COPD 03/28/2024 03/28/2023 CKD PHOS USE SMARTSET 75243 05/05/2024 090 02/2023, 02/02/2023, 01/11/2022, Additional history exists Diabetic Foot Exam 06/16/2024 06/16/2023, 06/16/2023 CKD HGB USE SMARTSET 79336 09/08/202409/08, 09/08/2023, 08/04/2023, Additional history exists Albumin/Creatinine [...] as of this encounter Visit Diagnoses Diagnosis HTN, goal below 140/90- Primary Unspecified essential hypertension documented in this encounter Advance Directives Latest [...] patient have Health Care Power of Supervisor Ore Dressing? No Care Teams Grout Machine Tender Relationship Specialty Start Date End Date Javy Moscoso DO [address] [place] [address] PCP - General Family Medicine 07/04/23 documented as of this encounter
--- OUTSIDE RECORDS SUMMARY | 2024-02-25 03:38 | External Medical Summary | Summary of Care ---
Author Name Unknown Organization [facility] Address [address] [place] [address] Phone [phone] Care Team Providers Care Fishing Rod Assembler Name Role Phone Javy Moscoso DO Primary Care Provider + [phone] Reason for Visit * Reason Comments Dosage Adjustment In Person (Anticoag Cl inic) Diabetes Follow-Up Encounter Details Date Type Department Care Team (Late st Contact Info) Description 10/06/2023 8:30 AM [facility] Pharmacy Pharmacy, [place] [address] [place] [address] Pharmacist1, [facility] [place] [address] [place] [address] Type 2 diabetes mellitus with stage 3b chronic kidney disease, with long-term current use of insulin (HCC)*; Type 2 diabetes mellitus with hyperglycemia, with long-term current use of insulin ([facility]) Allergies Active Allergy Reactions Criticality Noted Date Comments Lisinopril Unknown Low 11/15/2022 Verapamil Medium 06/26/2020 Heart Block documented as of this encounter (statuses as of 10/06/2023) Medications Medication Sig Dispensed Refills Start Date [...] MORNING 90 Tablet 3 2023 4 Active Torsemide 20 MG Oral Tablet (Demadex) TAKE ONE TABLET BY MOUTH EVERY MORNING 100 Tablet 3 09/14/2022 4 Active Losartan Potassium 100 MG Oral [...] 09/08/2023 Active Vitamin D (Ergocalciferol) 1.25 MG (03113 UT) Oral Capsule (Drisdol)Indicatio ns:Vitamin D deficiency Take 1 Capsule by mouth Every Month. 6 Capsule 0 09/08/2023 4 Active Freedom FarmsTouch Ultra In Vitro Strip (Glucose Blood) USE DIRECTED UP TO THREE TIMES DAILY FOR HOME GLUCOSE TESTING 300 Strip 3 09/08/2023 Active Freedom FarmsTouch Ultra 2 w/Device Kit USE DIRECTED TO [...] bedtime. 15 mL 5 10/06/2023 Active Pen [place] 31G X 5 MMIndications:Type 2 diabetes mellitus with hyperglycemia, with long-term current use of insulin (HCC) Use as directed. Use as directed with glargine insulin once daily 100 Each 3 10/06/2023 Active Glimepiride 4 MG Oral Tablet (Amaryl) TAKE ONE TABLET BY MOUTH TWICE A DAY IN THE MORNING AND BEFORE BEDTIME 180 Tablet 1 01/03/2023 4 Discontinue d(Medicatio n/Dose Changed) Insulin Glargine Solostar 100 UNIT/ML Subcutaneous Solution Pen-injector (Lantus SoloStar)Indicatio ns:Type 2 diabetes mellitus with hyperglycemia, with long-term current use of insulin (HCC) Inject 10 Units under the skin at bedtime. 15 mL 5 09/09/2023 4 Discontinue d(Refill) Pen [place] 31G X 5 MMIndications:Type 2 diabetes mellitus with hyperglycemia, with long-term current use of insulin (HCC) Use as directed. Use as directed with glargine insulin once daily 100 Each 1 09/09/2023 Discontinue d(Refill) documented as of this encounter (statuses as of 10/06/2023) Active Problems Problem Noted Date Diagnosed Date [...] impacted cerumen 10/22/2022 Atherosclerosis of [place] co ronary artery without angina pectoris 07/15/2022 [...] as of this encounter (statuses as of 10/06/2023) Resolved Problems Problem Noted Date Diagnosed Date [...] as of this encounter (statuses as of 10/06/2023) Immunizations Name Administration Dates Next Due COVID-19 mRNA, LNP-s, No Pre serve, 2-Dose Series (Jiff) 07/03/2021,12/27/2020,12/06/2020 COVID-19, MRNA-LNP, 23-24, P F, 30 MCG/0.3 mL, 12 YRS AND ABOVE, IM (PFIZER-Comirnaty) 06/16/2023 Pneumococcal Conjugate Vacci ne, 20-valent ([id number]) 12/07/2022 Pneumococcal Polysaccharide PPV23 (Pneumovax) 09/08/2020 Season [...] this encounter Progress Notes * Hans Kaba, [facility] - 10/06/2023 8:33 AM EST Images from the original note were not included. Medication Therapy Disease Management [facility] - Diabetes Management Progress Note Walker Mancini, identified by name and date of , is a 73 year old male being seen for diabetes management/education. Patient presents for return diabetic visit. DIABETES: Current diabetic medications: Metformin 500 mg ER 1 tab daily (at bedtime) Jardiance 25 mg daily Glimepiride 4 mg BID Lantus 10 units at bedtime (started by PCP) Medication Injection Site: Abdomen Lifestyle: Diet: unchanged Glucose Review/SMBG: Readings per patient memory/recall: Patient is currently testing 1-2 times a day Hypoglycemia: Does your blood sugar go below [...] ICD-10-CM 1. Type 2 diabetes mellitus with stage 3b chronic kidney disease, with long-term current use of insulin (HCC) E11.22 N18.32 Z79.4 BG Readings - Blood sugars uncontrolled. BG have improve per patient since starting Lantus. No episodes of hypoglycemia. Agreeable to test 2-3 times/day. Discussed Dexcom CGM, interested if not to costly, will submit order through [employer]. Medications - Reviewed current regimen, patient is adherent to regimen. Tolerating current regimen.Taking Lantus and Glimepiride, will stop Glimepiride and increase Lantus. Plan to follow-up with weekly phone visits to assess BG readings and adjust Lantus dose. Diet, Exercise, Lifestyle - No significant lifestyle changes since last visit. Patient is agreeable to SMBG 1-3 time(s) daily. Patient aware to contact clinic if any hypoglycemia before next visit. MEDICATION CHANGES: yes, see below; preferred pharmacy: [facility] ([facility]) Diabetic Medications: Metformin 500 mg ER 1 tab daily (at bedtime) Jardiance 25 mg daily STOP Glimepiride 4 mg BID INCREASE Lantus 15 units at bedtime HEALTH MAINTENANCE INTERVENTIONS: Labs: Up to Date Immunizations: Hep B series - decline Foot Exam: Up to Date Eye Exam: Complete with next PCP visit on 12/08/23 Annual Wellness Visit: Up to Date FOLLOW UP: Return to clinic in 1 week 10/13/2023 Hans Kaba RPh Clinical Pharmacist - Relay Engineer Medication Therapy Management Clinic 10/06/2023, 8:34 AM documented in this encounter Plan of Treatment Upcoming Encounters Date Type Department Care Team (Late st Contact Info) Description 10/13/2023 1:30 PM EST Telemedicine Pharmacy, [address] [place] [phone] Pharmacist1, [facility] [address] [place] [phone] 12/01/2023 2:30 PM EDT Office Visit Gastroenterology, [facility] [place] [address] Teddy Mullen CRNP [address] [place] [address] 12/05/2023 9:40 AM EDT Office Visit Nephrology, [facility] 200 [facility] [place] [address] Augusto Lerner MD 200 [facility] [place] [address] 12/08/2023 8:30 AM EDT Nutrition Services Nutrition Services [address] [place] [address] [address] [place], [place] [phone] Aydee Barnes, MILESN 30 [facility] 11 [place] [address] 12/08/2023 9:00 AM EDT Office Visit Family Practice 65 [facility] [address] [place] [address] Javy Moscoso DO [address] [place] [address] 12/12/2023 9:20 AM EDT Telemedicine Pulmonary Medicine, [place] [address] [place] [address] Iván Nielsen MD [address] [place] [address] Cart, Telemed Pulm Gw [facility] [place] [address] 12/15/2023 8:00 AM EDT Laboratory Laboratory Patient Service Center, [address] [phone] [place], Lab [address] [address] 02/16/2024 10:00 AM EDT Office Visit Sleep Disorders Ctr [facility] [address] [place] [phone] Debby CornejoareDO wallace [address] [place] [address] 03/08/2024 8:00 AM EDT Laboratory Laboratory Patient Service [address] [phone] [facility] Lock [address] [place] [address] 03/15/2024 11:00 AM EDT Office Visit Hematology/Oncology [facility] [place] [address] [facility] [address] Katt Mullen CRNP 400 [facility] [place] [id number] 10/03/2024 11:00 AM EST Nurse Only Ancillary [address], [place] [address] [place] [address] [place], Nurse Annual Wellness Visit [address] [place] [address] Scheduled Procedures Name Priority [...] COPD 03/28/2024 03/28/2023 CKD PHOS USE SMARTSET 95431 05/05/[address]240 02/2023, 02/02/2023, 01/11/2022, Additional history exists Diabetic Foot Exam 06/16/2024 06/16/2023, 06/16/2023 CKD HGB USE SMARTSET 20545 09/08/202409/08, 09/08/2023, 08/04/2023, Additional history exists Albumin/Creatinine [...] with long-term current use of insulin (HCC) documented [...] the patient have Health Care Power of Livestock Breeder? No Care Teams Fishing Rod Assembler Relationship Specialty Start Date End Date Javy Moscoso DO [address] [place] [phone] PCP - General Family Medicine 07/04/23 documented as of this encounter
--- OUTSIDE RECORDS SUMMARY | 2024-02-25 03:38 | External Medical Summary | Summary of Care ---
Author Name Unknown Organization [facility] Address [address] [place] [address] Phone [phone] Care Team Providers Care Client Manager Name Role Phone Javy Moscoso DO Primary Care Provider + [phone] Encounter Details Date Type Department Care Team (Late st Contact Info) Description 10/18/2023 Population Health External Data Unspecified Department Allergies Active Allergy Reactions Criticality Noted Date Comments Lisinopril Unknown Low 11/15/2022 Verapamil Medium 06/26/2020 Heart Block documented as of this encounter (statuses as of 10/19/2023) Medications Medication Sig Dispensed Refills Start Date [...] 09/08/2023 Active Vitamin D (Ergocalciferol) 1.25 MG (83996 UT) Oral Capsule (Drisdol)Indication s:Vitamin D deficiency Take 1 Capsule by mouth Every Month. 6 Capsule 0 09/08/2023 03/06/2024 Active MYOS Ultra In Vitro Strip (Glucose Blood) USE DIRECTED UP TO THREE TIMES DAILY FOR HOME GLUCOSE TESTING 300 Strip 3 09/08/2023 Active MYOS Ultra 2 w/Device Kit USE DIRECTED TO [...] bedtime. 15 mL 5 10/06/2023 Active Pen [place] 31G X 5 MMIndications:Type 2 diabetes mellitus with hyperglycemia, with long-term current use of insulin (HCC) Use as directed. Use as directed with glargine insulin once daily 100 Each 3 10/06/2023 Active documented as of this encounter (statuses as of 10/19/2023) Active Problems Problem Noted Date Diagnosed Date [...] 12/07/2022 Bilateral impacted cerumen 10/22/2022 Atherosclerosis of [place] co ronary artery without angina pectoris 07/15/2022 [...] as of this encounter (statuses as of 10/19/2023) Resolved Problems Problem Noted Date Diagnosed Date [...] as of this encounter (statuses as of 10/19/2023) Immunizations Name Administration Dates Next Due COVID-19 mRNA, LNP-s, No Pre serve, 2-Dose Series (XP Investimentos) 07/03/2021,12/27/2020,12/06/2020 COVID-19, MRNA-LNP, 23-24, P F, 30 MCG/0.3 mL, 12 YRS AND ABOVE, IM (PFIZER-Comirnaty) 06/16/2023 Pneumococcal Conjugate Vacci ne, 20-valent ([id number]) 12/07/2022 Pneumococcal Polysaccharide PPV23 (Pneumovax) 09/08/2020 Season [...] Visit Nephrology, [place] [address] [place] [address] Augusto Lerner MD [address] [place] [address] 11/10/2023 8:40 AM EDT Office Visit Pharmacy, [place] [address] [place] [address] Pharmacist1, [facility] [place] [address] [place] [address] 12/01/2023 2:30 PM EDT Office Visit Gastroenterology, [facility] 132 [facility] [place] [address] Teddy Mullen CRNP 132 [facility] [place] [address] 12/05/2023 9:40 AM EDT Office Visit Nephrology, [facility] 200 [facility] [place] [address] Augusto Lerner MD 200 [facility] [place] [address] 12/08/2023 8:30 AM EDT Nutrition Services Nutrition Services [address] [place] [address] 10 [place] [address] Aydee Barnes, RDN 30 [facility] 11 [place] [address] 12/08/2023 9:00 AM EDT Office Visit Family Practice [address] [place] [address] 10 [place] [phone] Javy Moscoso DO [address] [place] [address] 12/12/2023 9:20 AM EDT Telemedicine Pulmonary Medicine, [place] [address] [place] [address] Iván Nielsen MD [address] [place] [address] Cart, Telemed Pulm Gw 132 [facility] [place] [address] 12/15/2023 8:00 AM EDT Laboratory Laboratory Patient Service Center, [address] [phone] [place], Lab [address] [address] 02/16/2024 10:00 AM EDT [facility] [address] [place] [phone] Debby Cornejo DO [address] [place] [address] 03/08/2024 8:00 AM EDT Laboratory Laboratory Patient Service [address] [phone] [place], Lab Lock [address] [place], [place] [address] [address] 03/15/2024 11:00 AM EDT Office Visit Hematology/Oncology [facility] [place] [address] [facility] [phone] Katt Mullen CRNP 400 [facility] [id number] 10/03/2024 11:00 AM EST Nurse Only Ancillary [address], [place] [address] [place] [address] [place], Nurse Annual Wellness Visit [address] [place] [address] Scheduled Procedures Name Priority [...] COPD 03/28/2024 03/28/2023 CKD PHOS USE SMARTSET 54816 05/05/2024 09/0 02/2023, 02/02/2023, 01/11/2022, Additional history exists Diabetic Foot Exam 06/16/2024 06/16/2023, 06/16/2023 CKD HGB USE SMARTSET 89008 09/08/202409/08, 09/08/2023, 08/04/2023, Additional history exists Albumin/Creatinine [...] the patient have Health Care Power of City Maintenance Manager? No Care Teams Client Manager Relationship Specialty Start Date End Date Javy Moscoso DO 10 [place] [phone] PCP - General Family Medicine 07/04/23 documented as of this encounter
--- OUTSIDE RECORDS SUMMARY | 2024-02-25 03:39 | External Medical Summary | Summary of Care ---
Author Name Unknown Organization [facility] Address [address] [facility] [place] [address] Phone [phone] Care Team Providers Care Business Office Associate Name Role Phone Javy Moscoso DO Primary Care Provider + [phone] Reason for Visit * Reason Comments Medication Refill Encounter Details Date Type Department Care Team (Late st Contact Info) Description 09/20/2023 Refill Gastroenterology, [facility] [address] [place] [address] Zena Temple CRNP [address] [place] [address] Allergies Active Allergy Reactions Criticality Noted Date Comments Lisinopril Unknown Low 11/15/2022 Verapamil Medium 06/26/2020 Heart Block documented as of this encounter (statuses as of 09/21/2023) Medications Medication Sig Dispensed Refills Start Date [...] taking differently:325 mg OralHS, Reported on 03/03/2023 Octreotide Acetate 50 MCG/ML Subcutaneous Solution Prefilled Syringe Inject 50mcg (1 syringe) under the skin twice daily 60 mL 5 12/03/2022 Active Pantoprazole Sodium 40 MG Oral Tablet Delayed Release (Protonix)Indicatio ns:Gastroesophageal reflux disease without esophagitis TAKE ONE TABLET BY MOUTH EVERY MORNING 90 Tablet 3 2023 2024 Active Glimepiride 4 MG Oral Tablet (Amaryl) TAKE ONE TABLET BY MOUTH TWICE A DAY IN THE MORNING AND BEFORE BEDTIME 180 Tablet 1 01/03/2023 01/03/2024 Active Torsemide 20 MG Oral Tablet (Demadex) TAKE ONE TABLET BY MOUTH EVERY MORNING 100 Tablet 3 09/14/2022 12/11/2023 Active Gabapentin 100 MG Oral Capsule (Neurontin)Indicati ons:Bilateral lumbar radiculopathy TAKE ONE CAPSULE BY MOUTH EVERY MORNING 90 Capsule 2 03/07/2023 03/06/2024 Active Losartan Potassium 100 MG Oral Tablet [...] the tongue in the morning. 0 Active Gabapentin 600 MG Oral Tablet (Neurontin) TAKE ONE TABLET BY MOUTH TWICE A DAY AT NOON AND AT BEDTIME IN ADDITION TO A 100MG DOSE IN THE MORNING 180 Tablet 1 04/05/2023 Active Atorvastatin Calcium 40 MG Oral Tablet [...] 09/08/2023 Active Vitamin D (Ergocalciferol) 1.25 MG (15572 UT) Oral Capsule (Drisdol)Indication s:Vitamin D deficiency Take 1 Capsule by mouth Every Month. 6 Capsule 0 09/08/2023 03/06/2024 Active [employer] Ultra In Vitro Strip (Glucose Blood) USE DIRECTED UP TO THREE TIMES DAILY FOR HOME GLUCOSE TESTING 300 Strip 3 09/08/2023 Active [employer]Ang[employer] Ultra 2 w/Device Kit USE DIRECTED TO TEST BLOOD SUGARS 1 Each 0 09/08/2023 Active Insulin Glargine Solostar 100 UNIT/ML Subcutaneous Solution Pen-injector (Lantus SoloStar)Indication s:Type 2 diabetes mellitus with hyperglycemia, with long-term current use of insulin ([facility]) Inject 10 Units under the skin at bedtime. 15 mL 5 09/09/2023 Active Pen [place] 31G X 5 MMIndications:Type 2 diabetes mellitus with hyperglycemia, with long-term current use of insulin (HCC) Use as directed. Use as directed with glargine insulin once daily 100 Each 1 09/09/2023 Active documented as of this encounter (statuses as of 09/21/2023) Active Problems Problem Noted Date Diagnosed Date [...] 12/07/2022 Bilateral impacted cerumen 10/22/2022 Atherosclerosis of [place] co ronary artery without angina pectoris 07/15/2022 [...] as of this encounter (statuses as of 09/21/2023) Resolved Problems Problem Noted Date Diagnosed Date [...] as of this encounter (statuses as of 09/21/2023) Immunizations Name Administration Dates Next Due COVID-19 mRNA, LNP-s, No Pre serve, 2-Dose Series (Make Meaning) 07/03/2021,12/27/2020,12/06/2020 COVID-19, MRNA-LNP, 23-24, P F, 30 MCG/0.3 mL, 12 YRS AND ABOVE, IM (PFIZER-Comirnaty) 06/16/2023 Pneumococcal Conjugate Vacci ne, 20-valent ([id number]) 12/07/2022 Pneumococcal Polysaccharide PPV23 (Pneumovax) 09/08/2020 Season [...] Former Cigarettes 1 20 Q uit: 1994 Smokeless Tobacco: Current Chew Comments:03/11/23 1 can per 1 -2 days KHB Alcohol Use Standard Drinks/Week Comments Yes 0 (1 standard drink = 0.6 oz pur e alcohol) monthly PHQ-2 Answer Date Recorded PHQ Adult Total Score 0 06/16/2023 Hunger Vital Sign Answer Date Recorded Within the past 12 months, y ou worried that your food would run out before you got the money to buy more. Never true 06/16/20 Within the past 12 months, t he food you bought just didn't last and you didn't have money to get more. Never true 06/16/2023 Sex and Gender Information Value Date Recorded [...] encounter Miscellaneous Notes * Telephone Encounter - Zena Temple CRNP - 09/20/2023 10:02 PM EST Refused Prescriptions: Disp Refills Octreotide Acetate 50 MCG/ML Subcutaneous *60 mL 5 Sig: Inject 50mcg (1 syringe) under the skin twice dailyRefused By: ZENA TEMPLE for Refusal: Managed by another physician documented in this encounter Plan of Treatment Upcoming Encounters Date Type Department Care Team (Late st Contact Info) Description 09/28/2023 11:00 AM EST Nurse Only Ancillary 65 [facility] [address] [place] [address] [place], Nurse Annual Wellness Visit 65 [facility] [address] [place] [address] 10/06/2023 8:30 AM EST Pharmacy Pharmacy, [place] [address] [place] [address] Pharmacist1, [facility] [place] [address] [place] [address] 12/01/2023 2:30 PM EDT Office Visit Gastroenterology, [facility] 132 [place] [address] Teddy Mullen CRNP 132 [facility] [place] [address] 12/05/2023 9:40 AM EDT Office Visit Nephrology, [facility] [address] [address] Augusto Lerner MD [address] [address] 12/08/2023 8:30 AM EDT Nutrition Services Nutrition Services 65 [facility] [address] [place] [address] Aydee Barnes RDN 30 [facility] [address] [place] [address] 12/08/2023 9:00 AM EDT Office Visit Family Practice 65 [facility], [place] [address] [place] [address] Javy Moscoso, DO [address] [place] [address] 12/12/2023 9:20 AM EDT Telemedicine Pulmonary Medicine, [place] [address] [place] [address] Iván Nielsen MD [address] [place], [place] [id number] Cart, Telemed Pulm Gw 132 [facility] [place] [address] 12/15/2023 8:00 AM EDT Laboratory [facility], [place] [address] [place] [phone] [facility] [address] [address] [place] [address] 02/16/2024 10:00 AM EDT Office Visit Sleep Disorders Ctr [facility] 132 [facility] [place] [phone] Debby Cornejo, 132 [facility] [place] [address] 03/08/2024 8:00 AM EDT Laboratory Laboratory Patient Service [place], [place] [address] [facility] [place] [address] [place], [address] [place] [address] 03/15/2024 11:00 AM EDT Office [facility] [address] [place] [address] Katt Mullen CRNP 400 [employer] [place] [address] Scheduled Procedures Name Priority Associated Diagnoses Date/Ti me COLONOSCOPY FLEXIBLE PROXIMAL DIAGNOSTIC Recall History of colon polyps Health Maintenance Due Date Last Done Comments Hepatitis B (1 of 3 - Risk 3-dose series) 2012 Diabetic Eye Exam 11/03/2023 11/02/2022 COLONOSCOPY-ANNUAL AGES 18-100 12/11/2023 12/10/2022, 12/10/2022, 12/15/2020, Additional history exists GFR 03/08/2024 09/08/2023, 02/2023, 05/05/2023, Additional history exists HbA1c 03/08/2024 09/08/2023, 120 02/2023, 02/02/2023, Additional history exists O2 ASSESSMENT COMPLETED IN PAST YEAR FOR COPD 03/28/2024 03/28/2023 CKD PHOS USE SMARTSET 30940 05/05/2024 090 02/2023, 02/02/2023, 01/11/2022, Additional history exists Depression Screening 06/16/2024 06/16/2023 Diabetic Foot Exam 06/16/2024 06/16/2023, 06/16/2023 CKD HGB USE SMARTSET 13999 09/08/202409/08, 09/08/2023, 08/04/2023, Additional history exists Albumin/Creatinine Ratio 09/09/2024 09/09/2023, 1111/2021 DTaP,Tdap,and Td Vaccines (2 - Td or Tdap) 03/17/2031 03/17/2021 AAA Screening Completed 06/20/2020, 01/28, 01/12/2019 Alpha-1 Antitrypsin Completed 03/15/2022 Fecal Occult Blood Test Discontinued 11/17/2022, 03/16 Pneumococcal Vaccine: 65+ Years Completed 12/07/2022, 09/08/2020 [...] the patient have Health Care Power of Debur[place] Strip? No Care Teams Business Office Associate Relationship Specialty Start Date End Date Javy Moscoso DO [address] [place] [address] PCP - General Family Medicine 07/04/23 documented as of this encounter
--- OUTSIDE RECORDS SUMMARY | 2024-02-25 03:39 | External Medical Summary | Summary of Care ---
Author Name Unknown Organization [facility] Address [address] [facility] [place] [address] Phone [phone] Care Team Providers Care Hydraulic And Plumbing Installer Name Role Phone Javy Moscoso DO Primary Care Provider [phone] Reason for Visit * Reason Onset Date Comments Medication Refill 09/26/2023 Encounter Details Date Type Department Care Team (Late st Contact Info) Description 09/26/2023 Refill Family Practice 65 [place], [place] [address] [place] [address] Javy Moscoso DO [address] [place] [address] Allergies Active Allergy Reactions Criticality Noted Date Comments Lisinopril Unknown Low 11/15/2022 Verapamil Medium 06/26/2020 Heart Block documented as of this encounter (statuses as of 09/26/2023) Medications Medication Sig Dispensed Refills Start Date [...] MORNING 90 Tablet 3 2023 4 Active Glimepiride 4 MG Oral Tablet (Amaryl) TAKE ONE TABLET BY MOUTH TWICE A DAY IN THE MORNING AND BEFORE BEDTIME 180 Tablet 1 01/03/2023 4 Active Torsemide 20 MG Oral Tablet (Demadex) TAKE ONE TABLET BY MOUTH EVERY MORNING 100 Tablet 3 09/14/2022 4 Active Gabapentin 100 MG Oral Capsule (Neurontin)Indicat ions:Bilateral lumbar radiculopathy TAKE ONE CAPSULE BY MOUTH EVERY MORNING 90 Capsule 2 03/07/2023 4 Active Losartan Potassium 100 MG Oral [...] 09/08/2023 Active Vitamin D (Ergocalciferol) 1.25 MG (94625 UT) Oral Capsule (Drisdol)Indicatio ns:Vitamin D deficiency [...] bedtime. 15 mL 5 09/09/2023 Active Pen [place] 31G X 5 MMIndications:Type 2 diabetes mellitus with hyperglycemia, with long-term current use of insulin (HCC) Use as directed. Use as directed with glargine insulin once daily 100 Each 1 09/09/2023 Active Octreotide Acetate 50 MCG/ML Subcutaneous Solution Prefilled Syringe Inject 50 mcg (1 syringe) under the skin twice daily. 60 mL 5 09/21/2023 Active Gabapentin 600 MG Oral Tablet (Neurontin) TAKE ONE TABLET BY MOUTH TWICE A DAY AT NOON AND AT BEDTIME IN ADDITION TO A 100MG DOSE IN THE MORNING 180 Tablet 1 09/26/2023 Active Gabapentin 600 MG Oral Tablet (Neurontin) TAKE ONE TABLET BY MOUTH TWICE A DAY AT NOON AND AT BEDTIME IN ADDITION TO A 100MG DOSE IN THE MORNING 180 Tablet 1 04/05/2023 Discontinue d(Refill) documented as of this encounter (statuses as of 09/26/2023) Active Problems Problem Noted Date Diagnosed Date [...] 12/07/2022 Bilateral impacted cerumen 10/22/2022 Atherosclerosis of [place] co ronary artery without angina pectoris 07/15/2022 [...] as of this encounter (statuses as of 09/26/2023) Resolved Problems Problem Noted Date Diagnosed Date [...] as of this encounter (statuses as of 09/26/2023) Immunizations Name Administration Dates Next Due COVID-19 mRNA, LNP-s, No Pre serve, 2-Dose Series (Padin[employer]) 07/03/2021,12/27/2020,12/06/2020 COVID-19, MRNA-LNP, 23-24, P F, 30 MCG/0.3 mL, 12 YRS AND ABOVE, IM (PFIZER-Comirnaty) 06/16/2023 Pneumococcal Conjugate Vacci ne, 20-valent ([id number]) 12/07/2022 Pneumococcal Polysaccharide PPV23 (Pneumovax) 09/08/2020 Season [...] encounter Miscellaneous Notes * Telephone Encounter - Danis, Javy, DO - 09/26/2023 1:34 PM ESTSigned Prescriptions: Disp Refills Gabapentin 600 MG Oral Tablet (Neurontin) 180 Ta*1 Sig: TAKE ONE TABLET BY MOUTH TWICE A DAY AT NOON AND AT BEDTIME IN ADDITION TO A 100MG DOSE IN THE MORNING Authorizing Provider: JAVY MOSCOSO * Telephone Encounter - Gavi Luis [facility] - 09/26/2023 11:17 AM EST Did you pend patient's preferred pharmacy and medication before forwarding?yes Pharmacy: [facility] Pending Prescriptions: Disp Refills Gabapentin 600 MG Oral Tablet (Neurontin) 180 Ta*1 Sig: TAKE ONE TABLET BY MOUTH TWICE A DAY AT NOON AND AT BEDTIME IN ADDITION TO A 100MG DOSE IN THE MORNING Last Visit: 09/08/2023 (in office), Visit date not found (telemedicine) Next Visit: 12/08/2023 If no future appointments scheduled, and last appointment is greater than a year ago, please schedule patient for a follow-up appointment Last date the medication was ordered: [id number] Is this request for a controlled substance?No [...] 11:00 AM EST Nurse Only Ancillary 65 [facility] [address] [place] [address] [place], Nurse Annual Wellness Visit 65 [facility] [address] [place] [phone] 10/06/2023 8:30 AM EST Pharmacy Pharmacy, [place] [address] [place] [address] Pharmacist1, [facility] [place] [address] [place] [address] 12/01/2023 2:30 PM EDT Office Visit Gastroenterology, [facility] 132 [place] [address] Teddy Mullen CRNP 132 [place] [address] 12/05/2023 9:40 AM EDT Office Visit Nephrology, [facility] [address] [place] [address] Augusto Lerner MD [address] [place] [address] 12/08/2023 8:30 AM EDT Nutrition Services Nutrition Services 65 [facility] [address] [place] [phone] Aydee Barnes RDN 30 [facility] 11 [place] [address] 12/08/2023 9:00 AM EDT Office Visit Family Practice 65 [place], [place] [address] [place] [phone] Javy Moscoso DO [address] [place] [address] 12/12/2023 9:20 AM EDT Telemedicine Pulmonary Medicine, [place] [address] [place] [address] Iván Nielsen MD [address] [place] [address] Cart, Telemed Pulm Gw [address] [place] [address] 12/15/2023 8:00 AM EDT Laboratory Laboratory Patient Service [facility], [place] [address] [place] [phone] [place], [address] [place] [address] 02/16/2024 10:00 AM EDT Office Visit Sleep Disorders Ctr [facility] 132 [place] [phone] Debby Cornejo DO 132 [place] [address] 03/08/2024 8:00 AM EDT Laboratory Laboratory Patient Service [place], [place] [address] [place] [address] [place], [address] [place] [address] 03/15/2024 11:00 AM EDT Office Visit Hematology/Oncology [facility] [address] [facility] [address] Katt Mullen, [place] [address] [place] [address] [place] [address] Scheduled Procedures Name Priority Associated Diagnoses Date/Ti [...] COPD 03/28/2024 03/28/2023 CKD PHOS USE SMARTSET 69493 05/05/202402/2023, 02/02/2023, 01/11/2022, Additional history exists Depression Screening 06/16/2024 06/16/2023 Diabetic Foot Exam 06/16/2024 06/16/2023, 06/16/2023 CKD HGB USE SMARTSET 03630 09/08/202409/08, 09/08/2023, 08/04/2023, Additional history exists Albumin/Creatinine Ratio 09/09/2024 09/09/2023, 11/2021 DTaP,Tdap,and Td Vaccines (2 - Td or [...] the patient have Health Care Power of Communications Professional? No Care Teams Hydraulic And Plumbing Installer Relationship Specialty Start Date End Date Javy Moscoso DO [address] [place] [address] PCP - General Family Medicine 07/04/23 documented as of this encounter
--- OUTSIDE RECORDS SUMMARY | 2024-02-25 03:39 | External Medical Summary | Summary of Care ---
Author Name Unknown Organization [facility] Address [address] [facility] [place] [address] Phone [phone] Care Team Providers Care Agency Manager Name Role Phone Javy Moscoso DO Primary Care Provider + [phone] Reason for Visit * Reason Comments Medication Refill Encounter Details Date Type Department Care Team (Late st Contact Info) Description 09/20/2023 Refill Gastroenterology, [facility] [address] [place] [address] Zena Temple CRNP [address] [place] [address] Allergies Active Allergy Reactions Criticality Noted Date [...] 09/08/2023 Active Vitamin D (Ergocalciferol) 1.25 MG (81691 UT) Oral Capsule (Drisdol)Indication s:Vitamin D deficiency Take 1 Capsule by mouth Every Month. 6 Capsule 0 09/08/2023 03/06/2024 Active [employer] Ultra In Vitro Strip (Glucose Blood) USE DIRECTED UP TO THREE TIMES DAILY FOR HOME GLUCOSE TESTING 300 Strip 3 09/08/2023 Active Azelon Pharmaceuticalsuch Ultra 2 w/Device Kit USE DIRECTED TO TEST BLOOD SUGARS 1 Each 0 09/08/2023 Active Insulin Glargine Solostar 100 UNIT/ML Subcutaneous Solution Pen-injector (Lantus SoloStar)Indication s:Type 2 diabetes mellitus with hyperglycemia, with long-term current use of insulin ([facility]) Inject 10 Units under the skin at bedtime. 15 mL 5 09/09/2023 Active Pen [place] 31G X 5 MMIndications:Type 2 diabetes mellitus [...] Bilateral impacted cerumen 10/22/2022 Atherosclerosis of [place] co ronary artery without angina pectoris 07/15/2022 [...] mRNA, LNP-s, No Pre serve, 2-Dose Series ([employer]) 07/03/2021,12/27/2020,12/06/2020 COVID-19, MRNA-LNP, 23-24, P F, 30 MCG/0.3 mL, 12 YRS AND ABOVE, IM (PFIZER-Comirnaty) 06/16/2023 Pneumococcal Conjugate Vacci ne, 20-valent ([id number]) 12/07/2022 Pneumococcal Polysaccharide PPV23 (Pneumovax) 09/08/2020 Season [...] encounter Miscellaneous Notes * Addendum Note - Zena Temple CRNP - 09/21/2023 9:07 AM ESTAddended by: ZENA TEMPLE on: 09/21/2023 09:07 AM Modules accepted: Orders * Telephone Encounter - Znea Temple CRNP - 09/20/2023 10:02 PM EST [...] 11:00 AM EST Nurse Only Ancillary 65 [facility] [address] [place] [address] [facility] Nurse Annual Wellness Visit 65 [facility] [address] [place] [address] 10/06/2023 8:30 AM EST Pharmacy Pharmacy, [place] [address] [place] [address] Pharmacist1, [facility] [address] [place] [address] 12/01/2023 2:30 PM EDT Office Visit Gastroenterology, [facility] 132 [place] [address] Teddy Mullen CRNP 132 [place] [address] 12/05/2023 9:40 AM EDT Office Visit Nephrology, [facility] [address] [address] Augusto Lerner MD [address] [address] 12/08/2023 8:30 AM EDT Nutrition Services Nutrition Services 65 [facility] [address] [place] [address] Aydee Barnes, RDN 30 [facility] 11 [place] [address] 12/08/2023 9:00 AM EDT Office Visit Family Practice 65 [facility] [address] [place] [address] Javy Moscoso DO [address] [place] [address] 12/12/2023 9:20 AM EDT Telemedicine Pulmonary Medicine, [place] [address] [place] [address] Iván Nielsen MD [address] [place] [address] Cart, Telemed Pulm Gw 132 [facility] [address] 12/15/2023 8:00 AM EDT Laboratory Laboratory Patient Service Center, [address] [phone] [address] 02/16/2024 10:00 AM EDT Office Visit Sleep Disorders Ctr [facility] 132 [facility] [place] [phone] Debby Cornejo, 132 [facility] [address] 03/08/2024 8:00 AM EDT Laboratory Laboratory Patient Service [place], [address] [phone] [place], Lab [address] [facility] [place] [address] 03/15/2024 11:00 AM EDT Office Visit Hematology/Oncology [facility] [place] 200 [facility] [address] Katt Mullen CRNP 400 [facility] [place] [address] Scheduled Procedures Name Priority Associated Diagnoses [...] COPD 03/28/2024 03/28/2023 CKD PHOS USE SMARTSET 54615 05/05/202402/2023, 02/02/2023, 01/11/2022, Additional history exists Depression Screening 06/16/2024 06/16/2023 Diabetic Foot Exam 06/16/2024 06/16/2023, 06/16/2023 CKD HGB USE SMARTSET 87799 09/08/202409/08, 09/08/2023, 08/04/2023, Additional history exists Albumin/Creatinine [...] the patient have Health Care Power of Schedule Clerk? No Care Teams Agency Manager Relationship Specialty Start Date End Date Javy Moscoso DO [address] [place] [phone] PCP - General Family Medicine 07/04/23 documented as of this encounter
--- OUTSIDE RECORDS SUMMARY | 2024-02-25 03:39 | External Medical Summary | Summary of Care ---
Author Name Unknown Organization [facility] Address [address] [place] [facility] [place] [address] Phone [phone] Care Team Providers Care Revenue Research Analyst Name Role Phone Javy Moscoso DO Primary Care Provider [phone] Reason for Visit * Reason Onset Date Comments Medication Refill 09/26/2023 Encounter Details Date Type Department Care Team (Late st Contact Info) Description 09/26/2023 Refill Family Practice [address] [place], [place] [address] [place] [address] Javy Moscoso DO [address] [place] [address] Allergies Active Allergy Reactions Criticality Noted Date Comments Lisinopril Unknown Low 11/15/2022 Verapamil Medium 06/26/2020 Heart Block documented as of this encounter (statuses as of 10/04/2023) Medications Medication Sig Dispensed Refills Start Date [...] 09/08/2023 Active Vitamin D (Ergocalciferol) 1.25 MG (15445 UT) Oral Capsule (Drisdol)Indicatio ns:Vitamin D deficiency [...] bedtime. 15 mL 5 09/09/2023 Active Pen [place] 31G X 5 MMIndications:Type 2 diabetes mellitus [...] as of this encounter (statuses as of 10/04/2023) Active Problems Problem Noted Date Diagnosed Date [...] 12/07/2022 Bilateral impacted cerumen 10/22/2022 Atherosclerosis of mechoopda co ronary artery without angina pectoris 07/15/2022 [...] as of this encounter (statuses as of 10/04/2023) Resolved Problems Problem Noted Date Diagnosed Date [...] as of this encounter (statuses as of 10/04/2023) Immunizations Name Administration Dates Next Due COVID-19 mRNA, LNP-s, No Pre serve, 2-Dose Series (ProductBio) 07/03/2021,12/27/2020,12/06/2020 COVID-19, MRNA-LNP, 23-24, P F, 30 MCG/0.3 mL, 12 YRS AND ABOVE, IM (PFIZER-Comirnaty) 06/16/2023 Pneumococcal Conjugate Vacci ne, 20-valent ([id number]) 12/07/2022 Pneumococcal Polysaccharide PPV23 (Pneumovax) 09/08/2020 Season [...] MOSCOSO * Telephone Encounter - Gavi Luis [facility] - 09/26/2023 11:17 AM EST Did you pend patient's preferred pharmacy and medication before forwarding?yes Pharmacy: [facility] Pending Prescriptions: Disp Refills [...] appointment Last date the medication was ordered: [id number] Is this request for a controlled substance?No [...] st Contact Info) Description 10/06/2023 8:30 AM EST Pharmacy Pharmacy, [place] [address] [place] [address] Pharmacist1, [facility] [place] [address] [place] [address] 12/01/2023 2:30 PM EDT Office Visit Gastroenterology, [facility] [place] [address] Teddy Mullen CRNP [facility] [place] [address] 12/05/2023 9:40 AM EDT Office Visit Nephrology, [facility] [address] [facility] [place] [address] Augusto Lerner MD [address] [facility] [place] [address] 12/08/2023 8:30 AM EDT Nutrition Services Nutrition Services [address] [place] [address] [address] [facility] [place] [address] Aydee Barnes, [place]EB[place] 30 [facility] 11 [place] [address] 12/08/2023 9:00 AM EDT Office Visit Family Practice 65 [facility] [address] [place] [address] Javy Moscoso DO [address] [place] [address] 12/12/2023 9:20 AM EDT Telemedicine Pulmonary Medicine, [place] [address] [place] [address] Iván Nielsen MD [address] [place] [address] Cart, Telemed Pulm Gw 132 [facility] [place] [address] 12/15/2023 8:00 AM EDT Laboratory [facility], [place] [address] [place] [address] [place], Lab [address] [address] 02/16/2024 10:00 AM EDT Office Visit Sleep Disorders Ctr [facility] [address] [facility] [place] [phone] Debby Cornejo DO 132 [place] [address] 03/08/2024 8:00 AM EDT Laboratory [facility], [place] [address] [place] [address] [place], Lab [place] [address] [place] [address] 03/15/2024 11:00 AM EDT Office [facility] [address] [facility] [place] [address] Katt Mullen CRNP [address] [place] [address] 10/03/2024 11:00 AM EST Nurse Only Ancillary [address], [place] [address] [place] [phone] [place], Nurse Annual Wellness Visit [address] [place] [address] Scheduled Procedures Name Priority Associated Diagnoses Date/Ti [...] COPD 03/28/2024 03/28/2023 CKD PHOS USE SMARTSET 20398 05/05/20240 02/2023, 02/02/2023, 01/11/2022, Additional history exists Diabetic Foot Exam 06/16/2024 06/16/2023, 06/16/2023 CKD HGB USE SMARTSET 56649 09/08/202409/08, 09/08/2023, 08/04/2023, Additional history exists Albumin/Creatinine [...] the patient have Health Care Power of Him Coder? No Care Teams Revenue Research Analyst Relationship Specialty Start Date End Date Javy Moscoso DO [address] [place] [address] PCP - General Family Medicine 07/04/23 documented as of this encounter
--- OUTSIDE RECORDS SUMMARY | 2024-02-25 03:39 | External Medical Summary | Summary of Care ---
Author Name Unknown Organization [facility] Address [address] [place] [facility] [place] [place] [address] Phone [phone] Care Team Providers Care Supply Chain Director Name Role Phone Javy Moscoso DO Primary Care Provider [phone] Reason for Visit * Reason Onset Date Comments Medication Refill 10/04/2023 Encounter Details Date Type Department Care Team (Late st Contact Info) Description 10/04/2023 Refill Family Practice [address], [place] [address] [place] [address] Javy Moscoso DO [address] [place] [address] Bilateral lumbar radiculopathy Allergies Active Allergy Reactions Criticality Noted Date [...] 09/08/2023 Active Vitamin D (Ergocalciferol) 1.25 MG (47142 UT) Oral Capsule (Drisdol)Indicatio ns:Vitamin D deficiency [...] bedtime. 15 mL 5 09/09/2023 Active Pen [place] 31G X 5 MMIndications:Type 2 diabetes mellitus [...] the morning. 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 Authorizing Provider: JAVY MOSCOSO * Telephone Encounter - Tasneem Pink, [place] - 10/04/2023 10:48 AM EST Pt said he takes both 100 mg and 600mg. Pharmacy needs 100 mg. Did you pend patient's preferred pharmacy and medication before forwarding?yes Pharmacy: [facility] Pending Prescriptions: Disp Refills Gabapentin 100 MG Oral Capsule (Neurontin)90 Cap*2 Sig: Take 1 Capsule by mouth in the morning. Last Visit: 09/08/2023 (in office), Visit date not found (telemedicine) Next Visit: 12/08/2023 If no future appointments scheduled, and last appointment is greater than a year ago, please schedule patient for a follow-up appointment Last date the medication was ordered: 03/07/2023 Is this request for a controlled substance?No [...] Description 10/06/2023 8:30 AM EST Pharmacy Pharmacy, [place] [address] [place] [address] Pharmacist1, [facility] [place] [address] [place] [address] 12/01/2023 2:30 PM EDT Office Visit Gastroenterology, [facility] [place] [address] Teddy Mullen CRNP [address] [place] [address] 12/05/2023 9:40 AM EDT Office Visit Nephrology, [place] [address] [facility] [place] [address] Augusto Lerner MD [address] [place] [address] 12/08/2023 8:30 AM EDT Nutrition Services Nutrition Services [address] [place] [address] [place] [address] [facility] [place] [address] Aydee Barnes, ESTEBAN 30 [facility] [place] 11 [place] [address] 12/08/2023 9:00 AM EDT Office Visit Family Practice 65 [facility] [address] [place] [address] Javy Moscoso DO [address] [place] [address] 12/12/2023 9:20 AM EDT Telemedicine Pulmonary Medicine, [place] [address] [place] [address] Iván Nielsen MD [address] [place] [address] Cart, Telemed Pulm Gw [address] [facility] [place] [address] 12/15/2023 8:00 AM EDT Laboratory [facility], [place] [address] [place] [address] [place], Lab [place] [address] [place] [address] 02/16/2024 10:00 AM EDT Office Visit Sleep Disorders Ctr [facility] 132 [facility] [place] [id number] Debby Cornejo, [address] [place] [address] 03/08/2024 8:00 AM EDT Laboratory [facility], [place] [address] [place] [address] [place], Lab [place] [address] [place] [address] 03/15/2024 11:00 AM EDT Office Visit Hematology/Oncology [facility] 200 [place] [address] Katt Mullen CRNP 400 [facility] [place] [address] 10/03/2024 11:00 AM EST Nurse Only Ancillary [address], [place] [address] [place] [address] [place], Nurse Annual Wellness Visit [address] [place] [address] Scheduled Procedures Name Priority Associated Diagnoses Date/Ti [...] COPD 03/28/2024 03/28/2023 CKD PHOS USE SMARTSET 95443 05/05/202402/2023, 02/02/2023, 01/11/2022, Additional history exists Diabetic Foot Exam 06/16/2024 06/16/2023, 06/16/2023 CKD HGB USE SMARTSET 92017 09/08/202409/08, 09/08/2023, 08/04/2023, Additional history exists Albumin/Creatinine [...] as of this encounter Visit Diagnoses Diagnosis Bilateral lumbar radiculopathy documented in this encounter Advance Directives Latest Code Status on File Code Status Date Activated Date Inactivated Comments Full Code 02/15/2019 9:23 PM 02/18/2019 2:08 PM This order reflects the patients wishes and were consensually agreed upon. Question Answer Comments Discussion of Advance Directives occurred with: Patient Does the patient have a Living Will? No Does the patient have Health Care Power of Poundmaster? No Care Teams Supply Chain Director Relationship Specialty Start Date End Date Javy Moscoso DO [address] [place] [address] PCP - General Family Medicine 07/04/23 documented as of this encounter
--- OUTSIDE RECORDS SUMMARY | 2024-02-25 03:39 | External Medical Summary | Summary of Care ---
Author Name Unknown Organization [facility] Address [address] [place] [address] Phone [phone] Care Team Providers Care Adventure Therapist Name Role Phone Javy Moscoso DO Primary Care Provider + [phone] Reason for Visit * Reason Comments Adult Annual Wellness Visit, Subsequent Visit Encounter Details Date Type Department Care Team (Late st Contact Info) Description 09/28/2023 11:00 AM EST Nurse Only Ancillary [address] [place] [address] [place] Mccarthy [id number] [place], Nurse Annual Wellness Visit [address] [place] [id number] Adult Annual Wellness Visit, Subsequent Visit Allergies Active Allergy Reactions Criticality Noted Date Comments Lisinopril Unknown Low 11/15/2022 Verapamil Medium 06/26/2020 Heart Block documented as of this encounter (statuses as of 09/28/2023) Medications Medication Sig Dispensed Refills Start Date [...] 09/08/2023 Active Vitamin D (Ergocalciferol) 1.25 MG (07727 UT) Oral Capsule (Drisdol)Indication s:Vitamin D deficiency Take 1 Capsule by mouth Every Month. 6 Capsule 0 09/08/2023 03/06/2024 Active [email or web address] Ultra In Vitro Strip (Glucose Blood) USE DIRECTED UP TO THREE TIMES DAILY FOR HOME GLUCOSE TESTING 300 Strip 3 09/08/2023 Active [email or web address] Ultra 2 w/Device Kit USE DIRECTED TO TEST BLOOD SUGARS 1 Each 0 09/08/2023 Active Insulin Glargine Solostar 100 UNIT/ML Subcutaneous Solution Pen-injector (Lantus SoloStar)Indication s:Type 2 diabetes mellitus with hyperglycemia, with long-term current use of insulin (HCC) Inject 10 Units under the skin at bedtime. 15 mL 5 09/09/2023 Active Pen [place] 31G X 5 MMIndications:Type 2 diabetes mellitus [...] THE MORNING 180 Tablet 1 09/26/2023 Active documented as of this encounter (statuses as of 09/28/2023) Active Problems Problem Noted Date Diagnosed Date [...] 12/07/2022 Bilateral impacted cerumen 10/22/2022 Atherosclerosis of [place] co ronary artery without angina pectoris 07/15/2022 [...] as of this encounter (statuses as of 09/28/2023) Resolved Problems Problem Noted Date Diagnosed Date [...] as of this encounter (statuses as of 09/28/2023) Immunizations Name Administration Dates Next Due COVID-19 mRNA, LNP-s, No Pre serve, 2-Dose Series (Seesmic) 07/03/2021,12/27/2020,12/06/2020 COVID-19, MRNA-LNP, 23-24, P F, 30 MCG/0.3 mL, 12 YRS AND ABOVE, IM (PFIZER-Comirnat) 06/16/2023 Pneumococcal Conjugate Vacci ne, 20-valent ([id number]) 12/07/2022 Pneumococcal Polysaccharide PPV23 (Pneumovax) 09/08/2020 Season Influenza, Quad, PF, Adjuvanted, 65+ Yrs, IM (FLUAD) 06/03/2020 Seasonal Influenza Virus Vac cine, Unspecified Formulation 05/22/2019 Seasonal Influenza, Quadriva lent Hd (Fluzone Hd) 06/16/2023,05/06/2022,06/13/2021 TDAP (age 10 and older)(Boostrix) 03/17/2021 Zoster Vaccine Recombinant (Shingrix) 11/17/2021 documented as of this encounter Social History Tobacco Use Types Packs/Day Years Used Date Smoking Tobacco: Former Cigarettes 20 Q uit: 1994 Passive Smoke Exposure: Past Smokeless Tobacco: Current Chew Tobacco Cessation:Ready to Q uit: No; Counseling Given: Not Answered Comments:03/11/23 1 can [...] Sign Reading Time Taken Comments Blood Pressure 124/72 09/28/2023 11:35 AM EST Pulse 67 09/28/2023 11:35 AM EST Temperature 36.6 C (97.8 F) 09/28/2023 1 1:35 AM EST Respiratory Rate - - Oxygen Saturation 94% 09/28/2023 11: 35 AM EST Inhaled Oxygen Concentration - - Weight 108.8 kg (239 lb 14.4 oz) 2023 11:35 AM EST Height 175.3 cm (5' 9") 09/28/2023 11:3 5 AM EST Body Mass Index 35.43 09/28/2023 11:35 AM EST documented in this [...] No 02/15/2019 documented as of this encounter Patient Instructions * Patient Instructions* Mary Ellen Sorenson RN - 09/28/2023 11:57 AM EST Juan Mancini, As your primary care physician, I know that regular visits with my patients who have several chronic conditions can go a long way in helping you stay healthy. Many times, the clinic team and I are in touch with you and/or other care team members between office visits to adjust medications, discuss any changes in your health, and review our care plan to make sure it is still meeting your needs. I am dedicated to helping you take a more active role in your overall care. It is important that there are resources available to you, so I created a personalized plan of care with a Health Calendar for you, which is included on the next page of this letter. Below is a list that summarizes your electronic health record: Health Maintenance Due: Health Maintenance Due Topic Date Due Hepatitis B (1 of 3 - Risk 3-dose series) Never done Current Medication List: (as of Visit date not found (in office), Visit date not found (telemedicine) ) Current Outpatient Medications Medication Sig Dispense Refill CPAP every night at bedtime. Diclofenac Sodium 1 % External Gel (Voltaren) Apply 8 g topically to affected area 2 times a day as needed for Pain. Apply dime sized amount to lower back up to two times a day as needed for [id number] g 0 Acetaminophen 500 MG Oral Tablet (Tylenol) Take 1 to 2 tablets by mouth every 6 hours as needed Ferrous Sulfate 325 (65 Fe) MG Oral Tablet (Feosol) Take 1 Tablet by mouth daily with breakfast. (Patient taking differently: Take 1 Tablet by mouth at bedtime.) 90 Tablet 3 Pantoprazole Sodium 40 MG Oral Tablet Delayed Release (Protonix) TAKE ONE TABLET BY MOUTH EVERYMORNING 90 Tablet 3 Glimepiride 4 MG Oral Tablet (Amaryl) TAKE ONE TABLET BY MOUTH TWICE A DAY IN THE MORNING AND BEFORE BEDTIME 180 Tablet 1 Torsemide 20 MG Oral Tablet (Demadex) TAKE ONE TABLET BY MOUTH EVERY MORNING 100 Tablet 3 Gabapentin 100 MG Oral Capsule (Neurontin) TAKE ONE CAPSULE BY MOUTH EVERY MORNING 90 Capsule 2 Losartan Potassium 100 MG Oral Tablet (Cozaar) Take 1 Tablet by mouth in the morning. 90 Tablet3 metFORMIN HCl ER 500 MG Oral Tablet Extended Release 24 Hour (Glucophage XR) Take 1 Tablet by mouth daily. (Patient taking differently: Take 1 Tablet by [...] Tablet 1 Vitamin D (Ergocalciferol) 1.25 MG (54061 UT) Oral Capsule (Drisdol) Take 1 Capsule by mouth Every Month. 6 Capsule 0 Insulin Glargine Solostar 100 UNIT/ML Subcutaneous Solution Pen-injector (Lantus SoloStar) Inject 10 Units under the skin at bedtime. 15 mL 5 Octreotide Acetate 50 MCG/ML Subcutaneous Solution Prefilled Syringe Inject 50 mcg (1 syringe) under the skin twice daily. 60 mL 5 Gabapentin 600 MG Oral Tablet (Neurontin) TAKE ONE TABLET BY MOUTH TWICE A DAY AT NOON AND AT BEDTIME IN ADDITION TO A 100MG DOSE IN THE MORNING 180 Tablet 1 OneTouch Ultra In Vitro Strip (Glucose Blood) USE DIRECTED UP TO THREE TIMES DAILY FOR HOME GLUCOSE TESTING 300 Strip 3 OneTouch Ultra 2 w/Device Kit USE DIRECTED TO TEST BLOOD SUGARS 1 Each 0 Pen [place] 31G X 5 MM Use as directed. Use as directed with glargine insulin once daily 100 Each 1 No current facility-administered medications for this visit. Current List of Allergies: (as of Visit date not found (in office), Visit date not found (telemedicine) ) Review of patient's allergies indicates: Allergen Reactions Verapamil Heart Block Lisinopril Unknown Most Recent Lab Results: Results for orders placed or performed in visit on 09/09/23 PROTEIN/ CREATININE RATIO, URINE Result Value Ref Range Protein/ Creatinine Ratio, Urine 121 <150 mg/g Protein, Random Urine 4 mg/dL Creatinine, Random Urine 33 mg/dL URINALYSIS WITH MICROSCOPIC EXAM Result Value Ref Range Color, Urine Colorless Colorless, Light Yellow, Yellow, Dark Yellow Clarity, Urine Clear Clear Glucose, Urine >=1000 (A) Negative mg/dL Bilirubin, Urine Negative Negative Ketone, Urine Negative Negative mg/dL Specific [place], Urine 1.008 1.003 - 1.030 Blood, Urine Negative Negative pH, Urine 6.0 5.0 - 7.5 Units Protein, Urine Negative Negative mg/dL Urobilinogen, Urine Normal Normal mg/dL Nitrite, Urine Negative Negative Esterase, Urine Negative Negative RBC, Urine 0-2 0 - 2 /HPF WBC, Urine 0-2 0 - 2 /HPF Bacteria, Urine 0-25 0 - 25 /HPF Hyaline, Cast, Urine 10-19 (A) None /LPF ALBUMIN / CREATININE RATIO, URINE Result Value Ref Range Albumin, Random Urine 1.65 mg/dL Creatinine, Random Urine 33 mg/dL Albumin / Creatinine Ratio, Urine 50 (H) <30 mg/g Creat Sincerely, Javy Moscoso DO 09/28/2023 [facility] Calendar (as of Visit date not found (in office), Visit date not found (telemedicine) ) Care needs Care needs Last completed Due next Hepatitis B vaccine (1 of 3 - Risk 3-dose series) --- Never done Diabetic Eye Exam 11/02/2022 11/03/2023 Yearly colonoscopy 12/10/2022 12/11/2023 A1C blood sugar test 09/08/2023 03/08/2024 Kidney Function Test 09/08/2023 03/08/2024 Yearly COPD oxygen test 03/28/2023 03/28/2024 Diabetic Foot Exam 06/16/2023 06/16/2024 Urine albumin/creatinine test 09/09/2023 09/09/2024 Diphtheria, tetanus & pertussis vaccines (2 - Td or Tdap) 03/17/2021 03/17/2031 As you look over the recommended services, be sure to check with your insurance company to determine what's covered. [email or web address] is a great tool that helps you review your medical record online, including test results, doctor notes and your health summary. You can also schedule appointments with me and other members of your care team, request prescription refills and ask for advice related to your medical conditions at [email or web address] documented in this encounter Progress Notes * Mary Ellen Sorenson RN - 09/28/2023 11:37 AM EST AD8 Dementia Screening Interview Person answering questions: patient Remember, "Yes, a change" indicates that there has been a change in the last several years caused by cognitive (thinking and memory) problems 1. Problems with judgement (eg: problems making decisions, bad financial decisions, problems with thinking). No (0) 2. Less interest in hobbies/activities. No (0) 3. Repeats the same things over and over (questions, stories, or statements). No (0) 4. Trouble learning how to use a tool, appliance, or gadget (eg: VCR, computer, microwave, remote control). No (0) 5. Forgets correct month or year. No (0) 6. Trouble handling complicated financial affairs (eg: balancing checkbook, income taxes, paying bills). No (0) 7. Trouble remembering appointments. No (0) 8. Daily problems with thinking and/or memory. No (0) TOTAL AD8: 0 - AD8 Dementia Screening Score The final score is a sum of the number items marked "Yes, A Change". 0 - 1: Normal cognition; 2 or greater: Cognitive impairments is likely to be present - further testing required Adult Annual Wellness Visit: Walker Mancini is a 73 year old male who presents for an Adult Annual Wellness Visit. Depression Screening: Did the patient complete the screening questionnaire for Depression? Yes Is the patient's total score for Depression 15 or greater? No, no further intervention needed, unless requested by patient. Did the patient answer positively to the suicide question? No, no further intervention needed, unless requested by patient. In general, compared to other people your age, what would you say that your health is? Good Ht Readings from Last 1 Encounters: 09/28/23 1.753 m (5' 9") Wt Readings from Last 1 Encounters: 09/28/23 108.8 kg (239 lb 14.4 oz) Body Mass Index: BMI Greater than 30 Body mass index is 35.43 kg/m. 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, repeat 1 yr / COLONOSCOPY FLEXIBLE PROXIMAL DIAGNOSTIC performed by Chase Reyes MD at END[facility]COPY [facility] EGD, FLEXIBLE, DIAGNOSTIC N/A 03/17/2022 [facility], EGD z-line regular 41 cm from incisors, gastritis, otherwise normal / biopsies normal / EGD, FLEXIBLE, DIAGNOSTIC N/A 03/28/2023 single non-bleeding angioectasia jejunum, treated with APC/ESOPHAGOGASTRODUODENOSCOPY (EGD), FLEXIBLE, TRANSORAL, DIAGNOSTIC performed by Dominick Amador MD at OR [facility] INJECT DX/THER SUBSTANCE INTERLAMINAR LUMBAR/SACRAL W IMAGE GUIDE 09/08/2022 INJECTION SPINE LUMBAR OR SACRAL performed by Yon Lizarraga DO at OR [facility] SMALL BOWEL ENDOSCOPY DIAGNOSTIC N/A 05/06/2022 mild pseudomelanosis of stomach/few red spots, possible AVM's in mid jejunum/biopsies normal/SMALL INTESTINE ENDOSCOPY DIAGNOSTIC performed by Frederick Leija MD at OR [facility] SMALL BOWEL ENDOSCOPY DIAGNOSTIC 12/06/2022 normal / SMALL INTESTINE ENDOSCOPY DIAGNOSTIC performed by Dominick Amador MD at END[facility]COPY [facility] Family History Problem Relation Age of Onset Other (Natural causes) Mother age 87 Stomach cancer Father age 62 No Known Problems Sister No Known Problems Sister Kidney cancer Brother No Known Problems Brother No Known Problems Brother Thyroid Disorder Daughter Has patient ever had cancer? No Social History Tobacco Use Smoking status: Former Packs/day: 1.00 Years: 20.00 Additional pack years: 0.00 Total pack years: 20.00 Types: Cigarettes Quit date: 1994 Years since quittin.1 Passive exposure: Past Smokeless tobacco: Current Types: Chew Tobacco comments: 03/11/23 1 can per 1-2 days KHB Substance Use Topics Alcohol use: Yes Comment: monthly Vaping/E-Cigarette Use Vaping/E-Cigarette Use Never User Vaping/E-Cigarette Substances Vaping/E-Cigarette Devices Tobacco/Alcohol screening completed today? Yes Hospital Care: Admissions (within the last year): Hospital, Location: [facility] Date of Admission: 11/30/2022 ER within 30 days: No Does the patient have an Advance Directives/Living Will? No. Does the patient want information? No.Patient declined information Last Physical Exam: Last physical exam: 09/08/2023 Does patient see primary provider regularly? Yes Does patient see other providers? Yes, Specialist Patient Care Team updated? Yes Review of patient's allergies indicates: Allergen Reactions Verapamil Heart Block Lisinopril Unknown Immunization History Administered Date(s) Administered COVID-19 mRNA, LNP-s, No Preserve, 2-Dose Series (Seesmic) 12/06/2020, 12/27/2020, 07/03/2021 COVID-19, MRNA-LNP, 23-24, PF, 30 MCG/0.3 mL, 12 YRS AND ABOVE, IM (PFIZER- Comirnaty) 06/16/2023 Pneumococcal Conjugate Vaccine, 20-valent ([id number]) 12/07/2022 Pneumococcal Polysaccharide PPV23 (Pneumovax) 09/08/2020 Season Influenza, Quad, PF, Adjuvanted, 65+ Yrs, IM (FLUAD) 06/03/2020 Seasonal Influenza Virus Vaccine, Unspecified Formulation 05/22/2019 Seasonal Influenza, Quadrivalent Hd (Fluzone Hd) 06/13/2021, 05/06/2022, 06/16/2023 TDAP (age 10 and older)(Boostrix) 03/17/2021 Zoster Vaccine Recombinant (Shingrix) 11/17/2021 Current Outpatient Medications Medication Sig Dispense Refill [...] by mouth every 6 hours as needed Ferrous Sulfate 325 (65 Fe) MG Oral Tablet (Feosol) Take 1 Tablet by mouth daily with breakfast. (Patient taking differently: Take 1 Tablet by mouth at bedtime.) 90 Tablet 3 Pantoprazole Sodium 40 MG Oral Tablet Delayed Release (Protonix) TAKE ONE TABLET BY MOUTH EVERY MORNING 90 Tablet 3 Glimepiride 4 MG Oral Tablet (Amaryl) TAKE ONE TABLET BY MOUTH TWICE A DAY IN THE MORNING AND BEFORE BEDTIME 180 Tablet 1 Torsemide 20 MG Oral Tablet (Demadex) TAKE ONE TABLET BY MOUTH EVERY MORNING 100 Tablet 3 Gabapentin 100 MG Oral Capsule (Neurontin) TAKE ONE CAPSULE BY MOUTH EVERY MORNING 90 Capsule 2 Losartan Potassium 100 MG Oral Tablet (Cozaar) [...] Tablet 1 Vitamin D (Ergocalciferol) 1.25 MG (56253 UT) Oral Capsule (Drisdol) Take 1 Capsule by mouth Every Month. 6 Capsule 0 Insulin Glargine Solostar 100 UNIT/ML Subcutaneous Solution Pen-injector (Lantus SoloStar) Inject 10 Units under the skin at bedtime. 15 mL 5 Octreotide Acetate 50 MCG/ML Subcutaneous Solution Prefilled Syringe Inject 50 mcg (1 syringe) under the skin twice daily. 60 mL 5 Gabapentin 600 MG Oral Tablet (Neurontin) TAKE ONE TABLET BY MOUTH TWICE A DAY AT NOON AND AT BEDTIME IN ADDITION TO A 100MG DOSE IN THE MORNING 180 Tablet 1 [email or web address] Ultra In Vitro Strip (Glucose Blood) USE DIRECTED UP TO THREE TIMES DAILY FOR HOME GLUCOSE TESTING 300 Strip 3 [email or web address] Ultra 2 w/Device Kit USE DIRECTED TO TEST BLOOD SUGARS 1 Each 0 Pen [place] 31G X 5 MM Use as directed. Use as directed with glargine insulin once daily 100 Each 1 No current facility-administered medications for this visit. Patient Active Problem List Diagnosis Code Lyme disease A69.20 Spinal stenosis of lumbar region without neurogenic claudication M48.061 Bilateral lumbar radiculopathy M54.16 Bilateral leg edema R60.0 Gastroesophageal reflux disease without esophagitis K21.9 GUS on CPAP G47.33 Primary insomnia F51.01 Dyslipidemia, goal LDL below 70 E78.5 Morbid (severe) obesity due to excess calories ([facility]) E66.01 Type 2 diabetes mellitus with stage 3b chronic kidney disease, without long-term current use of insulin ([facility]) E11.22, N18.32 Chronic kidney disease, stage 3b ([facility]) N18.32 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 ([facility]) I13.10, N18.32 Numbness R20.0 Atherosclerosis of [place] coronary artery without angina pectoris I25.10 Primary osteoarthritis of left knee M17.12 Vitamin D insufficiency E55.9 Bilateral impacted cerumen H61.23 PSVT (paroxysmal supraventricular tachycardia) I47.10 Iron deficiency anemia due to chronic blood loss D50.0 Risk and functional assessment Z13.9 BEARDEN (dyspnea on exertion) R06.09 ILD (interstitial lung disease) ([facility]) J84.9 Centrilobular emphysema ([facility]) J43.2 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 Yes Patient takes medications as prescribed? Yes Patient manages own medications: Yes Patient uses a pill box? Yes, refill(s) completed by spouse Dental Exam: No has dentures Eye Screening: Yes: Every year Are you having trouble with hearing? Yes-declines audiology referral at this time Do you use an assistive device to help your hearing? No Exercise Screening: only the exercise associated with activities at work Nutrition Assessment: Eats a balanced diet and Eats three meals a day Pain Screening: Are you having any pain? No Sleep Screening Tool 'STOP': Do you snore? No Do you feel fatigued during the day? Yes-sometimes Do you wake up feeling like you haven't slept? Yes-sometimes Have you been told you stop breathing at night? Yes Do you gasp for air or choke while sleeping? No Have you been told you have Sleep Apnea? Yes Do you have high blood pressure or are on medication(s) to control high blood pressure? Yes SCORE: If you check YES to two or more questions, make a referral for Obstructive Sleep Apnea Pt diagnosed with sleep apnea-uses c-pap nightly and follows with sleep medicine Patient and Caregiver Support System: Patient lives with a spouse Means of Transportation: Drives. Not a concern. Patient lives in One Story - with basement stairs: 13 steps- has hand rail Community Resources: Not Applicable Functional Status and ADL Skills: Has patient ever had an amputation? No Functional Assessment: 82- Normal activity with effort: some symptoms of disease Ambulation: Patient ambulates without assistive device. Independent Dressing: Gets clothes and dresses without any assistance: Independent Able to move freely in chair or bed including turning over: Independent Repositioning (bed or chair): Not applicable Transfers: Independent Toileting: Goes to bathroom, uses toilet, arranges clothes and returns without any assistance: Independent Toileting: continent of bladder and continent of bowel Feeding: Self Bathing: Self; walk in shower-seat in shower, textured floor in shower, steps out onto a rug Requires none assistance with ADLs. Instrumental ADL's: Shopping: Independent Housekeeping: Independent Handling Finances: Minimal Assistance DME Vendor Name: [facility] patient-for c-pap supplies Fall Risk Assessment: Can the patient demonstrate that Walker Mancini can stand from a sitting position? Yes Has the patient had a fall within the last 6 months? No Does the patient have a problem with Walker Mancini's gait or balance? No Does the patient take 4 or more prescription medicines? Yes Does the patient use sedatives or narcotics? No Fall Risk Factors Present: Uses more than 4 medications Older than age 70 Scn-Ca-ahz-Go Test: Time began at 11:00. Patient stood from sitting position and walked approximately 10 feet, returnedand sat down. Total time for ovk-ku-dmd-go test was 13.68 seconds. Lzc-Df-gfu-Go Test completed? Yes Gender Specific Preventative Plan: Health Maintenance Topic Date Due Hepatitis B (1 of 3 - Risk 3-dose series) Never done Diabetic Eye Exam 11/03/2023 COLONOSCOPY-ANNUAL AGES 18-100 12/11/2023 HbA1c 03/08/2024 GFR 03/08/2024 O2 ASSESSMENT COMPLETED IN PAST YEAR FOR COPD 03/28/2024 CKD PHOS USE SMARTSET 94087 05/05/2024 Diabetic Foot Exam 06/16/2024 CKD HGB USE SMARTSET 23305 09/08/2024 Albumin/Creatinine Ratio 09/09/2024 Depression Screening 09/28/2024 DTaP,Tdap,and Td Vaccines (2 - Td or Tdap) 03/17/2031 Alpha-1 Antitrypsin Completed Influenza Vaccine (FLU shot) Completed AAA Screening Completed Pneumococcal Vaccine: 65+ Years Completed COVID-19 Vaccine Completed MENINGOCOCCAL (MENACTRA/MENVEO) Aged Out GARDASIL-HPV IMMUNIZATION SERIES Aged Out Colorectal Cancer Screening Discontinued Follow Up/ Referrals/Handouts: No further action needed Routine general medical examination at a health care facility (Primary) Atherosclerosis of [place] coronary artery of [place] heart without angina pectoris Continue to monitor and with current medication. 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 Continue to follow with pulmonology Chronic kidney disease, stage 3b (HCC) Continue to monitor and with current medication. 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 Continue to follow with hem/oncology Morbid (severe) obesity due to excess calories ([facility]) Wt Readings from Last 3 Encounters: 09/28/23 108.8 kg (239 lb 14.4 oz) 09/15/23 108.2 kg (238 lb 8 oz) 09/08/23 107.9 kg (237 lb 12.8 oz) Continue to monitor diet/exercise. Follow with nutrition GUS on CPAP Pt uses c-pap nightly-continue to monitor and follow with sleep medicine Primary insomnia Continue to monitor Primary osteoarthritis of left knee Bilateral lumbar radiculopathy Continue to monitor Spinal stenosis of lumbar region without neurogenic claudication Continue to monitor and with current medication as needed Thrombocytopenia (HCC) Continue to monitor and follow with hem/oncology Vitamin D insufficiency Continue to monitor and with current medication. Type 2 diabetes mellitus with stage 3b chronic kidney disease, without long-term current use of insulin (HCC) Type 2 diabetes mellitus with diabetic peripheral angiopathy without gangrene ([facility]) Hemoglobin AIC Results: Lab Results Component Value Date/Time HEMOGLOBIN A1C - [facility] 8.7 (H) 09/08/2023 10:02 AM HEMOGLOBIN A1C - [facility] 9.2 (H) 08/04/2023 07:52 AM HEMOGLOBIN A1C - [facility] 7.5 (H) 02/02/2023 08:49 AM HEMOGLOBIN A1C - [facility] 6.9 (H) 09/08/2020 03:23 PM HEMOGLOBIN A1C - [facility] 6.8 (H) 03/19/2020 11:06 AM HEMOGLOBIN A1C - [facility] 6.5 (H) 08/20/2019 09:22 AM Continue to monitor diet/exercise and with current medication. Continue to follow with MTM Discussed doing a living will-pt declines paperwork at this time. Follow Up: Return in 1 year (on 09/28/2024) for 12 month Subsequent Adult Wellness Visit. | For: 12 month Subsequent Adult Wellness Visit | Check-out note: 12 month Subsequent Adult Wellness Visit Would patient like to schedule next AWV visit? Yes Mary Ellen Sorenson RN documented in this encounter Miscellaneous Notes * Pt Handout (on AVS) - Mary Ellen Sorenson RN - 09/28/2023 11:57 AM EST Images from the original note were not included. 39901 Preventing Falls: Making Changes in Your Living Space Is your living space filled with hazards that could cause you to fall? Changes can make you safer. They could even save your life. Take a careful look around your home. Change what you can on your own. Hire someone or ask friends or family to help with harder tasks. Be sure to add a nonslip mat to the inside of your shower or bathtub. Always keep a nightlight on. Keep a clear path from your bed to the bathroom. Move items from higher shelves to lower ones. Remove hazards Remove things that can trip you, like throw rugs, boxes, piles of paper, or cords. Nail down rugs or carpeting if you don't want to remove them. Use slip- resistant backing. Don't store items on stairs. Keep walkways clear. Clean up spills right away. Replace glass tables with wooden ones. They're safer if you fall. Add safety devices Add handrails to both sides of stairs. Buy a raised toilet seat. Add grab bars near the toilet and in the shower. Get grabbers to help you reach things and avoid climbing. Improve lighting Add nightlights to halls, bedrooms, and bathrooms. Put light switches at the top and bottom of stairs. Be sure each room and flight of stairs has proper lighting. Use shades or curtains to cut glare from windows. Put flashlights in each room. Replace burned-out bulbs. Get glowing light switches for room entrances. Take other precautions Use nonskid floor wax. Buy a nonslip mat and a liquid soap dispenser for the shower. Put most-used items within easy reach. Add bright paint or tape on the top front edge of steps. Save big jobs, such as moving furniture or other heavy objects, for family or friends. Get professional help installing grab bars. They can be unsafe if not installed the right way. Fix riskier rooms first Don't tackle everything at once. Focus on one room at a time. The bathroom is a common spot for falls, so you may want to start there. Or start with a room you spend lots of time in, such as your bedroom. Make only a few changes at once. This will give you time to adjust to them. Outside safety You might arrange for these changes yourself, or you might need to talk to your building stonecutter orTookitakieowners' association about them. Have loose boards on porches or damaged stairs repaired. Have rough edges, holes, or large cracks in sidewalks or driveways repaired. Remove hazards that could trip you, such as hoses or theo. Use high-wattage light bulbs (100 cortes or greater) near outside doors and stairs. Add handrails to outside stairs. Have them extend beyond the bottom step. Get help in winter weather with ice or snow removal. Last Reviewed Date: 07/29/202219991512-8790 [employer]. All rights reserved. This information is not intended as a substitute for professional medical care. Always follow your healthcare professional's instructions. * Pt Handout (on AVS) - Mary Ellen Sorenson RN - 09/28/2023 11:57 AM EST [id number] Fall Prevention Falls often take place due to slipping, tripping, or losing your balance. Millions of people fall every year and injure themselves. Among older adults in the [place] falls are the most common cause of traumatic brain injuries. Every 20 minutes, an older adult dies from a fall. Here are ways to reduceyour risk of falling again: Think about your fall. Was there anything that caused your fall that can be fixed, removed, or replaced? Make your home safe by keeping walkways clear of objects you may trip over, such as electrical cords. Use nonslip pads under rugs. Don't use area rugs or small throw rugs. Use nonslip mats in bathtubs and showers. Hang grab rails by the toilet and inside and outside the shower. Install handrails and lights on staircases. The handrails should be on both sides of the stairs. Use night lights. Don't walk in poorly lit areas. Don't stand on chairs or wobbly ladders. Use care when reaching overhead or looking up. This position can cause a loss of balance. Be sure your shoes fit well, are in good condition, and have nonslip bottoms. Wear shoes both inside and outside of your home. Don't go barefoot or wear slippers. Be cautious when going up and down stairs, curbs, and when walking on uneven sidewalks. If your balance is poor, consider using a cane or walker. Talk with your healthcare provider about having a balance assessment. If your fall was related to alcohol use, stop or limit alcohol intake. Ask your provider for help if you think you may overuse alcohol and can't stop. If your fall was related to use of sleeping medicines, talk with your provider about this. You may need to reduce your dosage at bedtime if you wake up during the night to go to the bathroom. To reduce the need for nighttime bathroom trips: o Don't drink fluids for several hours before going to bed o Empty your bladder before going to bed o Men can keep a urinal at the bedside Stay as active as you can. Balance, flexibility, strength, and endurance all come from exercise.They all play a role in preventing falls. Ask your provider which types of activity are right for you. Try to do some type of exercise every day. Get your eyes checked once a year or more often if your vision changes If you have pets, know where they are before you stand up or walk so you don't trip over them. Go over all your medicines with a pharmacist or other provider. This is to see if any of them could make you more likely to fall. Have this type of medicine review at least once every year. If your provider advises a new medicine, ask if the side effects will affect your balance. Don't move quickly from one position to another. For instance, don't stand up fast from sitting.This can cause dizziness and may lead to a fall. Sit down when putting on pants, socks, and shoes. This will make you less likely to lose your balance and fall. Always let your provider know if you have fallen since your last visit. Contact your provider right away if you're having balance problems or falling more often. Last Reviewed Date: 08/29/202119994226-7784 [employer]. All rights reserved. This information is not intended as a substitute for professional medical care. Always follow your healthcare professional's instructions. documented in this encounter Plan of Treatment Upcoming Encounters Date Type Department Care Team (Late st Contact Info) Description 10/06/2023 8:30 AM EST [facility] [address] [place] [id number] Pharmacist1, [facility] [place] [address] [place] [phone] 12/01/2023 2:30 PM EDT Office Visit Gastroenterology, [facility] 132 [facility] [place] [address] Teddy Mullen CRNP [address] [place] [address] 12/05/2023 9:40 AM EDT Office Visit Nephrology, [address] [place] [address] Augusto Lerner MD [address] [place] [address] 12/08/2023 8:30 AM EDT Nutrition Services Nutrition Services [address] [place] [address] [address] [place], [place] [phone] Aydee Barnes, RDN 30 [facility] 11 [place] [address] 12/08/2023 9:00 AM EDT Office Visit Family Practice [address], [place] [address] [place] [address] Javy Moscoso DO [address] [place] [address] 12/12/2023 9:20 AM EDT Telemedicine Pulmonary Medicine, [place] [address] [place] [address] Iván Nielsen MD [address] [place] [address] Cart, Telemed Pulm Gw 132 [facility] [place] [address] 12/15/2023 8:00 AM EDT Laboratory Laboratory Patient Service [place], [address] [phone] [place], Lab [facility] [address] [place] [address] 02/16/2024 10:00 AM EDT Office Visit Sleep Disorders Ctr [facility] 132 [facility] [place] [phone] Debby Cornejo, 132 [facility] [place] [address] 03/08/2024 8:00 AM EDT Laboratory Laboratory Patient Service [place], [place] [address] [place] [address] [place], Lab [place] [address] [place] [address] 03/15/2024 11:00 AM EDT Office Visit Hematology/Oncology [place] [place] 200 [facility] [place] [address] Katt Mullen CRNP 400 [facility] [address] 10/03/2024 11:00 AM EST Nurse Only Ancillary [address], [place] [address] [place] [address] [place], Nurse Annual Wellness Visit [address] [place] [phone] Scheduled Procedures Name Priority Associated Diagnoses Date/Ti [...] COPD 03/28/2024 03/28/2023 CKD PHOS USE SMARTSET 43484 05/05/2024 090 02/2023, 02/02/2023, 01/11/2022, Additional history exists Diabetic Foot Exam 06/16/2024 06/16/2023, 06/16/2023 CKD HGB USE SMARTSET 82441 09/08/202409/08, 09/08/2023, 08/04/2023, Additional history exists Albumin/Creatinine [...] as of this encounter Visit Diagnoses Diagnosis Routine general medical examination at a health care facility- Primary Atherosclerosis of [place] coronary artery of [place] heart without angina pectoris Carcinoid tumor of rectum, unspecified whether malignant Centrilobular emphysema (HCC) Other emphysema Chronic kidney disease, stage 3b (HCC) COPD, group A, by GOLD 2017 classification (HCC) BEARDEN (dyspnea on exertion) Other dyspnea and respiratory abnormality Dyslipidemia, goal LDL below 70 Other and unspecified hyperlipidemia Gastroesophageal reflux disease without esophagitis Esophageal reflux 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) ILD (interstitial lung disease) (HCC) Postinflammatory pulmonary fibrosis Iron deficiency anemia due to chronic blood loss Iron deficiency anemia secondary to blood loss (chronic) Morbid (severe) obesity due to excess calories (HCC) GUS on CPAP Obstructive sleep apnea (adult) (pediatric) Primary insomnia Persistent disorder of initiating or maintaining sleep Primary osteoarthritis of left knee Primary localized osteoarthrosis, lower leg Spinal stenosis of lumbar region without neurogenic claudication Spinal stenosis, lumbar region, without neurogenic claudication Bilateral lumbar radiculopathy Thrombocytopenia (HCC) Thrombocytopenia, unspecified Vitamin D insufficiency Unspecified vitamin D deficiency Type 2 diabetes mellitus with stage 3b chronic kidney disease, without long-term current use of insulin (HCC) Type 2 diabetes mellitus with diabetic peripheral angiopathy without gangrene (HCC) Type II or unspecified type diabetes mellitus with peripheral circulatory disorders, not stated as uncontrolled documented in this encounter Advance Directives Latest Code Status on File Code Status Date Activated Date Inactivated Comments Full Code 02/15/2019 9:23 PM 02/18/2019 2:08 PM This order reflects the patients wishes and were consensually agreed upon. Question Answer Comments Discussion of Advance Directives occurred with: Patient Does the patient have a Living Will? No Does the patient have Health Care Power of Investigation Clerk? No Care Teams Adventure Therapist Relationship Specialty Start Date End Date Javy Moscoso DO [address] [place] [phone] PCP - General Family Medicine 07/04/23 documented as of this encounter
--- OUTSIDE RECORDS SUMMARY | 2024-02-25 03:39 | External Medical Summary | Summary of Care ---
Author Name Unknown Organization [facility] Address [address] [place] [address] Phone [phone] Care Team Providers Care Child Care Specialist Name Role Phone Javy Moscoso DO Primary Care Provider + [phone] Reason for Visit * Reason Comments Medication Refill Encounter Details Date Type Department Care Team (Late st Contact Info) Description 09/20/2023 Refill Gastroenterology, [facility] [address] [place] [address] Zena Temple CRNP [address] [place] [address] Allergies Active Allergy Reactions Criticality Noted Date [...] 09/08/2023 Active Vitamin D (Ergocalciferol) 1.25 MG (30480 UT) Oral Capsule (Drisdol)Indicatio ns:Vitamin D deficiency Take 1 Capsule by mouth Every Month. 6 Capsule 0 09/08/2023 4 Active Tigo EnergyTouch Ultra In Vitro Strip (Glucose Blood) USE DIRECTED UP TO THREE TIMES DAILY FOR HOME GLUCOSE TESTING 300 Strip 3 09/08/2023 Active Tigo EnergyTouch Ultra 2 w/Device Kit USE DIRECTED TO TEST BLOOD SUGARS 1 Each 0 09/08/2023 Active Insulin Glargine Solostar 100 UNIT/ML Subcutaneous Solution Pen-injector (Lantus SoloStar)Indicatio ns:Type 2 diabetes mellitus with hyperglycemia, with long-term current use of insulin (HCC) Inject 10 Units under the skin at bedtime. 15 mL 5 09/09/2023 Active Pen [place] 31G X 5 MMIndications:Type 2 diabetes mellitus with hyperglycemia, with long-term current use of insulin (HCC) Use as directed. Use as directed with glargine insulin once daily 100 Each 1 09/09/2023 Active Octreotide Acetate 50 MCG/ML Subcutaneous Solution Prefilled Syringe Inject 50mcg (1 syringe) under the skin twice daily 60 mL 5 09/21/2023 Active Octreotide Acetate 50 MCG/ML Subcutaneous Solution Prefilled Syringe Inject 50mcg (1 syringe) under the skin twice daily 60 mL 5 12/03/2022 4 Discontinue d(Refill) documented as of this [...] 12/07/2022 Bilateral impacted cerumen 10/22/2022 Atherosclerosis of [place] co ronary artery without angina pectoris 07/15/2022 [...] mRNA, LNP-s, No Pre serve, 2-Dose Series ([employer]) 07/03/2021,12/27/2020,12/06/2020 COVID-19, MRNA-LNP, 23-24, P F, 30 MCG/0.3 mL, 12 YRS AND ABOVE, IM (PFIZER-Comirnaty) 06/16/2023 Pneumococcal Conjugate Vacci ne, 20-valent ([id number]) 12/07/2022 Pneumococcal Polysaccharide PPV23 (Pneumovax) 09/08/2020 Season [...] encounter Miscellaneous Notes * Addendum Note - Mariama Willard CRNP - 09/21/2023 9:15 AM ESTAddended by: MARIAMA WILLARD on: 09/21/2023 09:15 AM Modules accepted: Orders * Addendum Note - Zena Temple CRNP [...] 11:00 AM EST Nurse Only Ancillary 65 [facility], [place] [address] [place] [phone] [place], Nurse Annual Wellness Visit [address] [place] [address] 10/06/2023 8:30 AM EST Pharmacy Pharmacy, [place] [address] [place] [phone] Pharmacist1, [facility] [address] [place] [phone] 12/01/2023 2:30 PM EDT Office Visit Gastroenterology, [facility] [address] [place] [address] Mariama Willard CRNP [address] [place] [address] 12/05/2023 9:40 AM EDT Office Visit Nephrology, [facility] 200 [facility] [place] [address] Augusto Lerner MD 200 [facility] [place] [address] 12/08/2023 8:30 AM EDT Nutrition Services Nutrition Services [address] [place] [address] [address] [place], [place] [phone] Aydee Barnes, MILESN 30 [facility] 11 [place] [address] 12/08/2023 9:00 AM EDT Office Visit Family Practice [address] [place] [address] [address] [place] [address] Javy Moscoso DO [address] [place] [phone] 12/12/2023 9:20 AM EDT Telemedicine Pulmonary Medicine, [place] [address] [place] [address] Iván Nielsen MD [address] [place] [address] Cart, Telemed Pulm Gw [address] [facility] [place] [address] 12/15/2023 8:00 AM EDT Laboratory Laboratory [facility], [address] [phone] [place], Lab [address] [address] 02/16/2024 10:00 AM EDT Office Visit Sleep Disorders Ctr [place], [place] [address] [place] [phone] Debby Cornejoaret, [address] [place] [address] 03/08/2024 8:00 AM EDT Laboratory Laboratory Patient Service [address] [phone] [facility] [place] [address] [place] [address] 03/15/2024 11:00 AM EDT Office Visit Hematology/Oncology [facility] [place] [address] [facility] [address] Katt Willard CRNP 400 [facility] [place] [address] Scheduled Procedures Name Priority Associated Diagnoses Date/Ti [...] COPD 03/28/2024 03/28/2023 CKD PHOS USE SMARTSET 57645 05/05/2024 09/0 02/2023, 02/02/2023, 01/11/2022, Additional history exists Depression Screening 06/16/2024 06/16/2023 Diabetic Foot Exam 06/16/2024 06/16/2023, 06/16/2023 CKD HGB USE SMARTSET 16940 09/08/202409/08, 09/08/2023, 08/04/2023, Additional history exists Albumin/Creatinine Ratio 09/09/2024 09/09/2023, 11/0 11/2021 DTaP,Tdap,and Td Vaccines (2 - Td [...] the patient have Health Care Power of Clay Modeler? No Care Teams Child Care Specialist Relationship Specialty Start Date End Date Javy Moscoso DO [address] [place] [phone] PCP - General Family Medicine 07/04/23 documented as of this encounter
--- OUTSIDE RECORDS SUMMARY | 2024-02-25 03:40 | External Medical Summary | Summary of Care ---
Author Name Unknown Organization [facility] Address [address] [place] [address] Phone [phone] Care Team Providers Care Lead Teacher Name Role Phone Javy Moscoso DO Primary Care Provider [phone] Reason for Visit * Reason Onset Date Comments Medication Question 09/13/2023 Encounter Details Date Type Department Care Team (Late st Contact Info) Description 09/13/2023 Telephone [facility] [address] [place] [address] Javy Moscoso DO [address] [place] [address] Medication Question Allergies Active Allergy Reactions Criticality Noted Date Comments Lisinopril Unknown Low 11/15/2022 Verapamil Medium 06/26/2020 Heart Block documented as of this encounter (statuses as of 09/14/2023) Medications Medication Sig Dispensed Refills Start Date [...] 09/08/2023 Active Vitamin D (Ergocalciferol) 1.25 MG (36188 UT) Oral Capsule (Drisdol)Indication s:Vitamin D deficiency Take 1 Capsule by mouth Every Month. 6 Capsule 0 09/08/2023 03/06/2024 Active [employer]jack Ultra In Vitro Strip (Glucose Blood) USE DIRECTED UP TO THREE TIMES DAILY FOR HOME GLUCOSE TESTING 300 Strip 3 09/08/2023 Active Fivejack Ultra 2 w/Device Kit USE DIRECTED TO TEST BLOOD SUGARS 1 Each 0 09/08/2023 Active Insulin Glargine Solostar 100 UNIT/ML Subcutaneous Solution Pen-injector (Lantus SoloStar)Indication s:Type 2 diabetes mellitus with hyperglycemia, with long-term current use of insulin (HCC) Inject 10 Units under the skin at bedtime. 15 mL 5 09/09/2023 Active Pen [place] 31G X 5 MMIndications:Type 2 diabetes mellitus with hyperglycemia, with long-term current use of insulin (HCC) Use as directed. Use as directed with glargine insulin once daily 100 Each 1 09/09/2023 Active documented as of this encounter (statuses as of 09/14/2023) Active Problems Problem Noted Date Diagnosed Date [...] 12/07/2022 Bilateral impacted cerumen 10/22/2022 Atherosclerosis of [place] co ronary artery without angina pectoris 07/15/2022 [...] as of this encounter (statuses as of 09/14/2023) Resolved Problems Problem Noted Date Diagnosed Date [...] as of this encounter (statuses as of 09/14/2023) Immunizations Name Administration Dates Next Due COVID-19 mRNA, LNP-s, No Pre serve, 2-Dose Series ([employer]) 07/03/2021,12/27/2020,12/06/2020 COVID-19, MRNA-LNP, 23-24, P F, 30 MCG/0.3 mL, 12 YRS AND ABOVE, IM (PFIZER-Comirnaty) 06/16/2023 Pneumococcal Conjugate Vacci ne, 20-valent ([id number]) 12/07/2022 Pneumococcal Polysaccharide PPV23 (Pneumovax) 09/08/2020 Season [...] Telephone Encounter - Javy Moscoso DO - 09/14/2023 12:32 PM EST Noted * Telephone Encounter - Javy Moscoso DO - 09/13/2023 2:03 PM EST Advise patient to use Basaglar until completed and then switch to Lantus as formulary alternative. Continue insulin dose as directed. * Telephone Encounter - Audrey Reed [facility] - 09/13/2023 12:49 PM EST Walker Castellano picked up his first fill of insulin today at the [facility] pharmacy. His thencalled to have it transferred here for subsequent fills. I see that the rx was pended for Lantus, however it was filled for Basaglar Kwikpen at the local pharmacy. Lantus is what is covered by his insurance, so he will need to use that moving forward. Wanted to reach out to see if patient should just use the basaglar he got and switch to Lantus for subsequent fills or if I should advise the patient not to use the basaglar and get an override to fill the Lantus now. Thank you! Audrey Reed [facility] Mail Order Pharmacist 09/13/2023, 12:56 PM documented in this encounter Plan of Treatment Upcoming Encounters Date Type Department Care Team (Late st Contact Info) Description 09/15/2023 12:00 PM EST Office Visit Hematology/Oncology [address] [place] 200 [facility] [place] [address] Katt Mullen CRNP 400 [facility] [place] [phone] 09/28/2023 11:00 AM EST Nurse Only Ancillary 65 [facility] [address] [place] [address] [place], Nurse Annual Wellness Visit [address] [place] [address] 10/06/2023 8:30 AM EST Pharmacy Pharmacy, [place] [address] [place] [address] Pharmacist1, [facility] [place] [address] [place] [phone] 12/01/2023 2:30 PM EDT Office Visit Gastroenterology, [facility] [place] [address] Teddy Mullen CRNP [facility] [place] [address] 12/05/2023 9:40 AM EDT Office Visit Nephrology, [facility] [address] [place] [address] Augusto Lerner MD [address] [place] [address] 12/08/2023 8:30 AM EDT Nutrition Services Nutrition Services [address] [place] [address] [address] [place] [address] Aydee Barnes, ESTEBAN 30 [facility] 11 [place] [address] 12/08/2023 9:00 AM EDT Office Visit Family Practice 65 [facility] [address] [place] [phone] Javy Moscoso DO [address] [place] [phone] 12/12/2023 9:20 AM EDT Telemedicine Pulmonary Medicine, [facility] [address] [place], [place] [phone] Iván Nielsen MD [address] [place] [address] Cart, Telemed Pulm Gw [address] [facility] [place] [address] 02/16/2024 10:00 AM EDT Office Visit [facility] Ctr [facility] [address] [place] [phone] Debby Cornejo, DO [address] [place] [address] Scheduled Procedures Name Priority Associated Diagnoses Date/Ti [...] COPD 03/28/2024 03/28/2023 CKD PHOS USE SMARTSET 68056 05/05/2024 090 02/2023, 02/02/2023, 01/11/2022, Additional history exists Depression Screening 06/16/2024 06/16/2023 Diabetic Foot Exam 06/16/2024 06/16/2023, 06/16/2023 CKD HGB USE SMARTSET 87676 09/08/202409/08, 09/08/2023, 08/04/2023, Additional history exists Albumin/Creatinine [...] the patient have Health Care Power of Research Aide? No Care Teams Lead Teacher Relationship Specialty Start Date End Date Javy Moscoso DO [address] [place] [address] PCP - General Family Medicine 07/04/23 documented as of this encounter
--- OUTSIDE RECORDS SUMMARY | 2024-02-25 03:40 | External Medical Summary | Summary of Care ---
Author Name Unknown Organization [facility] Address [address] [place] [place] [address] Phone [phone] Care Team Providers Care Slice Plug Cutter Operator Helper Name Role Phone Javy Moscoso DO Primary Care Provider + [phone] Reason for Visit * Reason Comments Medication Refill Encounter Details Date Type Department Care Team (Late st Contact Info) Description 09/20/2023 Refill Gastroenterology, [facility] [address] [place] [address] Zena Temple CRNP [address] [place] [address] Allergies Active Allergy Reactions Criticality Noted Date [...] 09/08/2023 Active Vitamin D (Ergocalciferol) 1.25 MG (40432 UT) Oral Capsule (Drisdol)Indication s:Vitamin D deficiency Take 1 Capsule by mouth Every Month. 6 Capsule 0 09/08/2023 03/06/2024 Active Talkpush Ultra In Vitro Strip (Glucose Blood) USE DIRECTED UP TO THREE TIMES DAILY FOR HOME GLUCOSE TESTING 300 Strip 3 09/08/2023 Active Liiiikeuch Ultra 2 w/Device Kit USE DIRECTED TO TEST BLOOD SUGARS 1 Each 0 09/08/2023 Active Insulin Glargine Solostar 100 UNIT/ML Subcutaneous Solution Pen-injector (Lantus SoloStar)Indication s:Type 2 diabetes mellitus with hyperglycemia, with long-term current use of insulin ([facility]) Inject 10 Units under the skin at bedtime. 15 mL 5 09/09/2023 Active Pen [place] 31G X 5 MMIndications:Type 2 diabetes [...] 12/07/2022 Bilateral impacted cerumen 10/22/2022 Atherosclerosis of [place] ronary artery without angina pectoris 07/15/2022 [...] mRNA, LNP-s, No Pre serve, 2-Dose Series ([employer]) 07/03/2021,12/27/2020,12/06/2020 COVID-19, MRNA-LNP, 23-24, P F, 30 MCG/0.3 mL, 12 YRS AND ABOVE, IM (PFIZER-Comirnaty) 06/16/2023 Pneumococcal Conjugate Vacci ne, 20-valent ([id number]) 12/07/2022 Pneumococcal Polysaccharide PPV23 (Pneumovax) 09/08/2020 Season [...] AM EST Nurse Only Ancillary 65 [facility] [address] [place] [address] [place], Nurse Annual Wellness Visit 65 [facility] [address] [place] [address] 10/06/2023 8:30 AM EST Pharmacy Pharmacy, [place] [address] [place] [address] Pharmacist1, [facility] [place] [address] [place] [address] 12/01/2023 2:30 PM EDT Office Visit Gastroenterology, [facility] 132 [facility] [place] [address] Teddy Mullen CRNP 132 [place] [address] 12/05/2023 9:40 AM EDT Office Visit Nephrology, [facility] [address] [place] [address] Augusto Lerner MD [address] [place] [address] 12/08/2023 8:30 AM EDT Nutrition Services Nutrition Services 65 [facility] [address] [place] [address] Aydee Barnes RDN 30 [facility] [address] [place] [address] 12/08/2023 9:00 AM EDT Office Visit Family Practice 65 [facility] [place] [address] [place] [address] Javy Moscoso, DO [address] [place] [address] 12/12/2023 9:20 AM EDT Telemedicine Pulmonary Medicine, [place] [address] [place] [address] Iván Nielsen MD [address] [place], [place] [id number] Cart, Telemed Pulm Gw 132 [facility] [place] [address] 12/15/2023 8:00 AM EDT Laboratory [facility], [place] [address] [place] [phone] [facility] [address] [place] [address] 02/16/2024 10:00 AM EDT Office Visit Sleep Disorders Ctr [facility] 132 [facility] [place] [id number] Debby Cornejo, 132 [facility] [place] [address] 03/08/2024 8:00 AM EDT Laboratory Laboratory Patient Service [place], [place] [address] [place] [address] [place], [address] [place] [address] 03/15/2024 11:00 AM EDT Office [facility] [address] [place] [address] Katt Mullen CRNP [address] [place] [address] Scheduled Procedures Name Priority [...] COPD 03/28/2024 03/28/2023 CKD PHOS USE SMARTSET 69651 05/05/2024 090 02/2023, 02/02/2023, 01/11/2022, Additional history exists Depression Screening 06/16/2024 06/16/2023 Diabetic Foot Exam 06/16/2024 06/16/2023, 06/16/2023 CKD HGB USE SMARTSET 21510 09/08/202409/08, 09/08/2023, 08/04/2023, Additional history exists Albumin/Creatinine [...] the patient have Health Care Power of Jewelry Facer? No Care Teams Slice Plug Cutter Operator Helper Relationship Specialty Start Date End Date Javy Moscoso DO [address] [place] [address] PCP - General Family Medicine 07/04/23 documented as of this encounter
--- OUTSIDE RECORDS SUMMARY | 2024-02-25 03:40 | External Medical Summary | Summary of Care ---
Author Name Unknown Organization [facility] Address [address] [facility] [place] [address] Phone [phone] Care Team Providers Care Supervisor Fish Hatchery Name Role Phone Javy Moscoso DO Primary Care Provider + [phone] Reason for Visit * Reason Comments Medication Refill Encounter Details Date Type Department Care Team (Late st Contact Info) Description 09/20/2023 Refill Gastroenterology, [facility] [address] [place] [address] Zena Temple CRNP [address] [place] [address] Allergies Active Allergy Reactions Criticality Noted Date Comments Lisinopril Unknown Low 11/15/2022 Verapamil Medium 06/26/2020 Heart Block documented as of this encounter (statuses as of 09/20/2023) Medications Medication Sig Dispensed Refills Start Date [...] 09/08/2023 Active Vitamin D (Ergocalciferol) 1.25 MG (78234 UT) Oral Capsule (Drisdol)Indication s:Vitamin D deficiency Take 1 Capsule by mouth Every Month. 6 Capsule 0 09/08/2023 03/06/2024 Active Tivix Ultra In Vitro Strip (Glucose Blood) USE DIRECTED UP TO THREE TIMES DAILY FOR HOME GLUCOSE TESTING 300 Strip 3 09/08/2023 Active Wiscomm Microsystemsuch Ultra 2 w/Device Kit USE DIRECTED TO TEST BLOOD SUGARS 1 Each 0 09/08/2023 Active Insulin Glargine Solostar 100 UNIT/ML Subcutaneous Solution Pen-injector (Lantus SoloStar)Indication s:Type 2 diabetes mellitus with hyperglycemia, with long-term current use of insulin ([facility]) Inject 10 Units under the skin at bedtime. 15 mL 5 09/09/2023 Active Pen [place] 31G X 5 MMIndications:Type 2 diabetes mellitus with hyperglycemia, with long-term current use of insulin (HCC) Use as directed. Use as directed with glargine insulin once daily 100 Each 1 09/09/2023 Active documented as of this encounter (statuses as of 09/20/2023) Active Problems Problem Noted Date Diagnosed Date [...] 12/07/2022 Bilateral impacted cerumen 10/22/2022 Atherosclerosis of [place] co ronary artery without angina pectoris 07/15/2022 [...] as of this encounter (statuses as of 09/20/2023) Resolved Problems Problem Noted Date Diagnosed Date [...] as of this encounter (statuses as of 09/20/2023) Immunizations Name Administration Dates Next Due COVID-19 mRNA, LNP-s, No Pre serve, 2-Dose Series ([employer]) 07/03/2021,12/27/2020,12/06/2020 COVID-19, MRNA-LNP, 23-24, P F, 30 MCG/0.3 mL, 12 YRS AND ABOVE, IM (PFIZER-Comirnaty) 06/16/2023 Pneumococcal Conjugate Vacci ne, 20-valent ([id number]) 12/07/2022 Pneumococcal Polysaccharide PPV23 (Pneumovax) 09/08/2020 Season [...] 50 MCG/ML Subcutaneous *60 mL 5 Sig: [id number] (1 syringe) under the skin twice dailyRefused By: ZENA TEMPLE for Refusal: Managedby another physician documented in this encounter Plan of Treatment Upcoming Encounters Date Type Department Care Team (Late st Contact Info) Description 09/28/2023 11:00 AM EST Nurse Only Ancillary 65 [facility] [address] [place] [address] [place], Nurse Annual Wellness Visit 65 [facility] [address] [place] [address] 10/06/2023 8:30 AM EST Pharmacy Pharmacy, [place] [address] [place] [address] Pharmacist1, [facility] [place] [address] [place] [address] 12/01/2023 2:30 PM EDT Office Visit Gastroenterology, [facility] 132 [facility] [place] [address] Teddy Mullen CRNP 132 [place] [address] 12/05/2023 9:40 AM EDT Office Visit Nephrology, [facility] [address] [place] [address] Augusto Lerner MD [address] [place] [address] 12/08/2023 8:30 AM EDT Nutrition Services Nutrition Services 65 [facility] [address] [place] [address] Aydee Barnes RDN 30 [facility] 11 [place] [address] 12/08/2023 9:00 AM EDT Office Visit Family Practice 65 [facility] [place] [address] [place] [address] Javy Moscoso, DO [address] [place] [address] 12/12/2023 9:20 AM EDT Telemedicine Pulmonary Medicine, [place] [address] [place] [address] Iván Nielsen MD [address] [place], [place] [id number] Cart, Telemed Pulm Gw 132 [facility] [place] [address] 12/15/2023 8:00 AM EDT Laboratory Laboratory Patient [facility], [place] [address] [place] [phone] [facility] [address] [place] [address] 02/16/2024 10:00 AM EDT Office Visit Sleep Disorders Ctr [facility] 132 [facility] [place] [phone] Debby Cornejo, 132 [facility] [place] [address] 03/08/2024 8:00 AM EDT Laboratory Laboratory Patient Service [place], [place] 68 [facility] [place] [address] [place], [address] [place] [address] 03/15/2024 11:00 AM EDT Office [facility] [address] [place] [address] Katt Mullen CRNP [address] [place] [place] [address] Scheduled Procedures Name Priority [...] COPD 03/28/2024 03/28/2023 CKD PHOS USE SMARTSET 88685 05/05/2024 090 02/2023, 02/02/2023, 01/11/2022, Additional history exists Depression Screening 06/16/2024 06/16/2023 Diabetic Foot Exam 06/16/2024 06/16/2023, 06/16/2023 CKD HGB USE SMARTSET 11727 09/08/202409/08, 09/08/2023, 08/04/2023, Additional history exists Albumin/Creatinine [...] the patient have Health Care Power of Network Systems Analyst? No Care Teams Supervisor Fish Hatchery Relationship Specialty Start Date End Date Javy Moscoso DO [address] [place] [address] PCP - General Family Medicine 07/04/23 documented as of this encounter
--- OUTSIDE RECORDS SUMMARY | 2024-02-25 03:40 | External Medical Summary | Summary of Care ---
Author Name Unknown Organization [facility] Address [address] [place] [address] Phone [phone] Care Team Providers Care Vocational Training Teacher Name Role Phone Javy Moscoso DO Primary Care Provider + [phone] Reason for Visit * Reason Comments Follow Up F/U Encounter Details Date Type Department Care Team (Late st Contact Info) Description 09/15/2023 12:00 PM EST Office Visit Hematology/Oncology [facility] [address] [facility] [place] [address] Katt Mullen CRNP 400 [facility] [place] [address] Iron deficiency anemia due to chronic blood loss* Allergies Active Allergy Reactions Criticality Noted Date Comments Lisinopril Unknown Low 11/15/2022 Verapamil Medium 06/26/2020 Heart Block documented as of this encounter (statuses as of 09/16/2023) Medications Medication Sig Dispensed Refills Start Date [...] 09/08/2023 Active Vitamin D (Ergocalciferol) 1.25 MG (16302 UT) Oral Capsule (Drisdol)Indication s:Vitamin D deficiency Take 1 Capsule by mouth Every Month. 6 Capsule 0 09/08/2023 03/06/2024 Active Good4Uuch Ultra In Vitro Strip (Glucose Blood) USE DIRECTED UP TO THREE TIMES DAILY FOR HOME GLUCOSE TESTING 300 Strip 3 09/08/2023 Active Good4Uuch Ultra 2 w/Device Kit USE DIRECTED TO TEST BLOOD SUGARS 1 Each 0 09/08/2023 Active Insulin Glargine Solostar 100 UNIT/ML Subcutaneous Solution Pen-injector (Lantus SoloStar)Indication s:Type 2 diabetes mellitus with hyperglycemia, with long-term current use of insulin ([facility]) Inject 10 Units under the skin at bedtime. 15 mL 5 09/09/2023 Active Pen Compton 31G X 5 MMIndications:Type 2 diabetes mellitus with hyperglycemia, with long-term current use of insulin (HCC) Use as directed. Use as directed with glargine insulin once daily 100 Each 1 09/09/2023 Active documented as of this encounter (statuses as of 09/16/2023) Active Problems Problem Noted Date Diagnosed Date [...] 12/07/2022 Bilateral impacted cerumen 10/22/2022 Atherosclerosis of swinomish co ronary artery without angina pectoris 07/15/2022 [...] as of this encounter (statuses as of 09/16/2023) Resolved Problems Problem Noted Date Diagnosed Date [...] as of this encounter (statuses as of 09/16/2023) Immunizations Name Administration Dates Next Due COVID-19 mRNA, LNP-s, No Pre serve, 2-Dose Series (MoVoxx) 07/03/2021,12/27/2020,12/06/2020 COVID-19, MRNA-LNP, 23-24, P F, 30 MCG/0.3 mL, 12 YRS AND ABOVE, IM ([place]apagos-Comirnat) 06/16/2023 Pneumococcal Conjugate Vacci ne, 20-valent ([id number]) 12/07/2022 Pneumococcal Polysaccharide PPV23 (Pneumovax) 09/08/2020 Season [...] Sign Reading Time Taken Comments Blood Pressure 134/73 09/15/2023 11:50 AM EST Pulse 59 09/15/2023 11:50 AM EST Temperature 36.5 C (97.7 F) 09/15/2023 11:[address] Respiratory Rate 18 09/15/2023 11:50 AM EST Oxygen Saturation 92% 09/15/2023 11:50 AM EST Inhaled Oxygen Concentration - - Weight 108.2 kg (238 lb 8 oz) 09/15/2023 11:50 A M EST Height - - Body Mass Index 35.22 07/04/2023 8:13 AM EST documented in this encounter Functional [...] as of this encounter Progress Notes * Katt Mullen CRNP - 09/15/2023 12:06 PM EST Hematology/Oncology Outpatient Clinic note Stephanie Avila [address] [place] [address] Name: aWlker Mancini Date: 09/15/2023 CHIEF COMPLAINT: Walker Mancini is a 73 year old male here today for f/u visit today. Patient of Dr. Deangelo Barnett. From Patient chart confirmed with patient. HEMATOLOGY/ONCOLOGY DIAGNOSIS: Iron deficiency anemia d/t chronic blood loss Colonic AVMs TREATMENT HISTORY: 3 units of PRBC during admission at [facility] 11/30/22 - 12/02/22 Venofer 300mg IV weekly x4 doses completed 01/19/23 CURRENT TREATMENT: Ferrous sulfate one tablet daily Octreotide per GI 50 mcg subq twice daily HISTORY OF PRESENT ILLNESS: PMH of DM type II, HLD, COPD, GUS on CPAP, CKD stage III, CAD, GERD, obesity, OA. Was reporting melena and had positive hemoccult. He was seen in GI clinic in October by Dr. 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 Was admitted at [facility] 11/30/22 - 12/02/22 for symptomatic anemia. Hgb 6.4 on admission. Received 3 unitsof PRBC. Hgb 8.[address] A/P 12/07/22: IMPRESSION: 1. Lower attenuation than expected throughout the partially visualized cardiac chambers raises concern for anemia. 2. Left renal lesions some of which are too small to characterize by CT criteria, most of than likely represent simple cysts. However, a 0.9 cm Bosniak IIF lesion is suspected in its upper pole anteriorly. Recommend renal MR without and with contrast for further evaluation. 3. Large exophytic simple cyst coming of the lower pole of the right kidney, increased in size when compared to prior study. Please see body of the report for details. 4. Subtle thickening of the dahl of the loops of the ileum in the right lower quadrant is nonspecific and may be secondary to under distension. 5. Questionable thickening of the dahl of the duodenum at the level of the junction of its 2nd and 3rd portions. 6. The significance of the duodenum and small bowel findings needs to be assessed clinically to determine need of further characterization. Urology referral placed for renal cysts. Has now been started on Octreotide per GI 50 mcg subq twice daily. is administering injectionsat home. Started approximately one week ago. Currently taking Ferrous sulfate 325 mg daily in the evening. Tolerating well. Denies any adverse GI side effects. SBE 12/06/22: Impression: - Normal esophagus. - Normal stomach. - Normal examined duodenum. - The examined portion of the jejunum was normal. - No specimens collected. Colonoscopy 12/10/22: Impression: - One 6 mm polyp in the [...] views of the ascending colon and rectum. Recommendation: - Repeat colonoscopy for surveillance based on pathology results - currently pending Patient feeling improved today. Breathing is improved. Denies dizziness or CP. Stamina and strengthhave improved. Has dark stools but attributed this to his iron supplements. Has been taking since April. Denies b symptoms. Weight is stable. Otherwise GI ROS negative. Patient drinks alcohol occasionally. Chews tobacco. Father from gastric cancer. Interval History: Small Bowel Enteroscopy 03/28/23: Impression: - Normal esophagus. - Normal stomach. - Normal examined duodenum. - A single non-bleeding angioectasia in the jejunum. Treated with argon plasma coagulation (APC). - No specimens collected. HISTORY OF PRESENT ILLNESS: Walker Mancini is a 73 year old male with a history as outlined above. Currently here for f/u visit today. Patient continues to pass black stools daily. Denies tarry stools. Moving his bowels about twice a day. Remains on oral iron tablet once in the evening. Continues on Octreotide per GI. Is more active and color is better. Breathing is improved. Tolerated the iron infusions well. Past Medical History: Diagnosis Date Acute respiratory [...] Dunia De La Vega MD at ENDOSCOPY [facility] COLONOSCOPY, DIAGNOSTIC (RECTUM) 12/10/2022 benign adenomatous polyps & small neuroendocrine growth (carcinoid) in the rectum, repeat 1 yr / COLONOSCOPY FLEXIBLE PROXIMAL DIAGNOSTIC performed by Chase Reyes MD at ENDOSCOPY [facility] EGD, FLEXIBLE, DIAGNOSTIC N/A 03/17/2022 [facility], EGD z-line regular 41 cm from incisors, gastritis, otherwise normal / biopsies normal / EGD, FLEXIBLE, DIAGNOSTIC N/A 03/28/2023 single non-bleeding angioectasia jejunum, treated with APC/ESOPHAGOGASTRODUODENOSCOPY (EGD), FLEXIBLE, TRANSORAL, DIAGNOSTIC performed by Dominick Amador MD at OR [facility] INJECT DX/THER SUBSTANCE INTERLAMINAR LUMBAR/SACRAL W IMAGE GUIDE 09/08/2022 INJECTION SPINE LUMBAR OR SACRAL performed by Yon Lizarraga DO at OR [facility] SMALL BOWEL ENDOSCOPY DIAGNOSTIC N/A 05/06/2022 mild pseudomelanosis of stomach/few red spots, possible AVM's in mid jejunum/biopsies normal/SMALL INTESTINE ENDOSCOPY DIAGNOSTIC performed by Frederick Leija MD at OR [facility] SMALL BOWEL ENDOSCOPY DIAGNOSTIC 12/06/2022 normal / SMALL INTESTINE ENDOSCOPY DIAGNOSTIC performed by Dominick Amador MD at ENDOSCOPY [facility] Social History Socioeconomic History Marital status: Spouse name: Not on file Number of children: Not on file Years of education: Not on file Highest education level: Not on file Occupational History Not on file Tobacco Use Smoking status: Former Packs/day: 1.00 Years: 20.00 Additional pack years: 0.00 Total pack years: 20.00 Types: Cigarettes Quit date: 1994 Years since quittin.0 Smokeless tobacco: Current Types: Chew Tobacco comments: 03/11/23 1 can per 1-2 days KHB Vaping Use Vaping Use: Never used Substance and Sexual Activity Alcohol use: Yes Comment: monthly Drug use: Not Currently Sexual activity: Not on file Other Topics Concern Not on file Social History Narrative 1 dog in his home. No mold. Social Determinants of Health Financial Resource Strain: Not on file Food Insecurity: No Food Insecurity (06/16/2023) Hunger Vital Sign Worried About Running Out of Food in the Last Year: Never true Ran Out of Food in the Last Year: Never true Transportation Needs: Not on file Physical Activity: Not on file Stress: Not on file Social Connections: Not on file Intimate Partner Violence: Not on file Housing Stability: Not on file Review of patient's allergies indicates: Allergen Reactions [...] by mouth at bedtime.) 90 Tablet 3 Octreotide Acetate 50 MCG/ML Subcutaneous Solution Prefilled Syringe Inject 50mcg (1 syringe) underthe skin twice daily 60 mL 5 Pantoprazole Sodium 40 MG Oral Tablet Delayed [...] Tablet under the tongue in the morning. Gabapentin 600 MG Oral Tablet (Neurontin) TAKE ONE TABLET BY MOUTH TWICE A DAY AT NOON AND AT BEDTIME IN ADDITION TO A 100MG DOSE IN THE MORNING 180 Tablet 1 Atorvastatin Calcium 40 MG Oral Tablet (Lipitor) TAKE ONE TABLET BY MOUTH EVERY MORNING 90 Tablet 3 Empagliflozin 25 MG Oral Tablet (Jardiance) Take 1 Tablet by mouth in the morning. 100 Tablet 3 tiZANidine HCl 2 MG Oral Tablet (Zanaflex) Take 1 Tablet by mouth at bedtime as needed for Muscle spasms. 90 Tablet 1 Vitamin D (Ergocalciferol) 1.25 MG (85342 UT) Oral Capsule (Drisdol) Take 1 Capsule by mouth Every Month. 6 Capsule 0 OneTouch Ultra In Vitro Strip (Glucose Blood) USE DIRECTED UP TO THREE TIMES DAILY FOR HOME GLUCOSE TESTING 300 Strip 3 OneTouch Ultra 2 w/Device Kit USE DIRECTED TO TEST BLOOD SUGARS 1 Each 0 Insulin Glargine Solostar 100 UNIT/ML Subcutaneous Solution Pen-injector (Lantus SoloStar) Inject 10 Units under the skin at bedtime. 15 mL 5 Pen Compton 31G X 5 MM Use as directed. Use as directed with glargine insulin once daily 100 Each 1 No current facility-administered medications for this visit. REVIEW OF SYSTEMS: See HPI - otherwise negative OBJECTIVE: Filed Vitals: 09/15/23 1150 BP: 134/73 Pulse: 59 Resp: 18 Temp: 36.5 C (97.7 F) TempSrc: Tympanic SpO2: 92% Weight: 108.2 kg (238 lb 8 oz) Wt Readings from Last 5 Encounters: 09/15/23 108.2 kg (238 lb 8 oz) 09/08/23 107.9 kg (237 lb 12.8 oz) 09/08/23 107.9 kg (237 lb 12.8 oz) 09/05/23 107.5 kg (237 lb) 07/04/23 109.3 kg (240 lb 14.4 oz) PHYSICAL EXAM: General Appearance: Normal - Healthy appearing patient in no acute distress Lungs/Thorax: Normal respiratory effort Extremities: No edema Neurologic: Normal - Grossly intact LABS: Component Latest Ref [facility] 09/08/2023 BUN 6 - 20 mg/dL 30 (H) Creatinine 0.6 - 1.2 mg/dL 1.6 (H) Estimated Glomerular Filtration Rate >=60 mL/min 45 (L) Sodium 135 - 146 mmol/L 140 Potassium 3.5 - 5.1 mmol/L 4.6 Chloride 98 - 107 mmol/L 101 CO2 22 - 32 mmol/L 28 Anion Gap 7 - 15 mmol/L 11 Glucose 70 - 120 mg/dL 176 (H) Calcium 8.4 - 10.2 mg/dL 9.4 AST 10 - 50 U/L 22 Alkaline Phosphatase 35 - 130 U/L 53 ALT 10 - 50 U/L 30 Bilirubin, Total <=1.2 mg/dL 0.7 Protein 6.0 - 8.3 g/dL 6.5 Albumin 3.8 - 5.0 g/dL 4.5 Component Latest Ref [facility] 09/08/2023 WBC 4.00 - 10.80 K/uL 5.89 RBC 4.50 - 5.25 M/uL 5.12 HGB 14.0 - 16.8 g/dL 15.5 HCT 40.0 - 48.4 % 47.7 MCV 82.0 - 99.5 fL 93.2 MCH 27.0 - 34.0 pg 30.3 MCHC 32.0 - 36.0 g/dL 32.5 RDW 11.5 - 15.5 % 14.1 PLT 140 - 400 K/uL 145 MPV 6.6 - 11.1 fL 14.0 nRBCs <=0 /100 WBCs 0 Component Latest Ref Rn 09/08/2023 Iron 45 - 176 ug/dL 50 Iron Binding Capacity 250 - 425 ug/dL 342 Transferrin Saturation Percent 15 - 55 % 15 Component Latest Ref Rng 09/08/2023 Ferritin 30 - 400 ng/mL 100 IMPRESSION/PLAN: Iron deficiency anemia d/t chronic blood loss Colonic AVMs Venofer 300mg IV weekly x4 doses completed 01/19/23 Currently taking ferrous sulfate one tablet daily - should continue Lab results reviewed: No NIRALI present Continues on Octreotide per GI 50 mcg subq twice daily Continues to follow with GI. Taking Pantoprazole 40 mg daily as recommended. Small Bowel Enteroscopy last completed 03/28/23. APC to one non-bleeding angiectasia. Avoid NSAIDS Follow cbc/diff, iron screen and ferritin every three months Patient may also be a candidate for maintenance IV Venofer in the future d/t presence of chronic blood loss. RTC in 6 months with provider with cbc/diff, cmp, iron screen and ferritin AUSTIN Nunes documented in this encounter Nursing Notes * Vonda Quiles LPN - 09/15/2023 11:52 AM EST Patient identifed by name and birthdate Do you have any concerns about pain management for today's visit? No Living Will or Advance Directive for Health Care as noted on the problem list. [facility] is a way you can talk to your provider on line through e-mail. Would you like to sign up? I can activate it for you? NO Filed Vitals: 09/15/23 1150 BP: 134/73 Pulse: 59 Resp: 18 Temp: 36.5 C (97.7 F) TempSrc: Tympanic SpO2: 92% Weight: 108.2 kg (238 lb 8 oz) Patient was instructed to not get up on the exam table/exam chair until directed and assisted by their provider; patient is to remain seated in the chair/ wheelchair/ exam table/ exam chair for fall prevention and safety reasons. Patient is aware to have assistance to step down off exam table/exam chair with personnel. Patient voiced full comprehension of instructions. documented in this encounter Plan of Treatment Upcoming Encounters Date Type Department Care Team (Late st Contact Info) Description 09/28/2023 11:00 AM EST Nurse Only Ancillary 65 [facility] [place] [address] [place] [address] [place], Nurse Annual Wellness Visit [address] [facility] [address] [place] [address] 10/06/2023 8:30 AM EST Pharmacy Pharmacy, [place] [address] [place] [address] Pharmacist1, [facility] [place] [address] [place] [address] 12/01/2023 2:30 PM EDT Office Visit Gastroenterology, [facility] [place] [address] Teddy Mullen CRNP 132 [place] [address] 12/05/2023 9:40 AM EDT Office Visit Nephrology, [facility] [address] [place] [address] Augusto Lerner MD 200 [facility] [place] [address] 12/08/2023 8:30 AM EDT Nutrition Services Nutrition Services 65 [facility] [place] [address] [facility] [place] [id number] Aydee Barnes, ESTEBAN 30 [facility] [place] [address] [place] [address] 12/08/2023 9:00 AM EDT Office Visit Family Practice 65 [facility] [address] [place] [address] Javy Moscoso DO [address] [place] [address] 12/12/2023 9:20 AM EDT Telemedicine Pulmonary Medicine, [place] [address] [place] [address] Iván Nielsen MD [address] [place] [address] Cart, Telemed Pulm Gw 132 [facility] [place] [address] 12/15/2023 8:00 AM EDT Laboratory Laboratory [facility], [place] [address] [place] [address] [place], [facility] [place] [address] [place] [address] 02/16/2024 10:00 AM EDT Office Visit Sleep Disorders Ctr [facility] 132 [facility] [place] [phone] Debby Cornejo DO 132 [place] [address] 03/08/2024 8:00 AM EDT Laboratory Laboratory [facility], [place] [address] [place] [phone] [place], [facility] [place] [address] [place] [address] 03/15/2024 11:00 AM EDT Office Visit Hematology/Oncology [facility] 200 [place] [address] Katt Mullen CRNP 400 [facility] [place] [address] Scheduled Orders Name Type Priority Associated Diagnoses Orde r Schedule CBC WITH WBC DIFFERENTIAL Lab STAT Iron deficiency anemia due to chronic blood loss Every 3 Months for 4 Occurrences starting 09/15/2023 until 09/14/2024 IRON SCREEN, INCLUDING TIBC Lab STAT Iron deficiency anemia due to chronic blood loss Every 3 Months for 4 Occurrences starting 09/15/2023 until 09/14/2024 FERRITIN Lab STAT Iron deficiency anemia due to chronic blood loss Every 3 Months for 4 Occurrences starting 09/15/2023 until 09/14/2024 COMPREHENSIVE METABOLIC PANEL Lab STAT Iron deficiency anemia due to chronic blood loss Every 6 Months for 2 Occurrences starting 09/16/2023 until 09/16/2024 Scheduled Procedures Name Priority Associated Diagnoses Date/Ti [...] COPD 03/28/2024 03/28/2023 CKD PHOS USE SMARTSET 15753 05/05/202402/2023, 02/02/2023, 01/11/2022, Additional history exists Depression Screening 06/16/2024 06/16/2023 Diabetic Foot Exam 06/16/2024 06/16/2023, 06/16/2023 CKD HGB USE SMARTSET 33092 09/08/202409/08, 09/08/2023, 08/04/2023, Additional history exists Albumin/Creatinine [...] the patient have Health Care Power of Physician Chief Of Pathology? No Care Teams Vocational Training Teacher Relationship Specialty Start Date End Date Javy Moscoso DO [address] [place] [address] PCP - General Family Medicine 07/04/23 documented as of this encounter
--- OUTSIDE RECORDS SUMMARY | 2024-02-25 03:40 | External Medical Summary | Summary of Care ---
Author Name Unknown Organization [facility] Address [address] [place] [address] Phone [phone] Care Team Providers Care Colorist Formulator Name Role Phone Javy Moscoso DO Primary Care Provider + [phone] Encounter Details Date Type Department Care Team ([facility] st Contact Info) Description 09/20/2023 Specialty Pharmacy [facility], [address], [address] [place] [address] Medication, [facility] Specialty, [facility] [address] [address] Allergies Active Allergy Reactions Criticality Noted Date [...] 09/08/2023 Active Vitamin D (Ergocalciferol) 1.25 MG (16855 UT) Oral Capsule (Drisdol)Indication s:Vitamin D deficiency Take 1 Capsule by mouth Every Month. 6 Capsule 0 09/08/2023 03/06/2024 Active [employer] Ultra In Vitro Strip (Glucose Blood) USE DIRECTED UP TO THREE TIMES DAILY FOR HOME GLUCOSE TESTING 300 Strip 3 09/08/2023 Active Playmaticsuch Ultra 2 w/Device Kit USE DIRECTED TO TEST BLOOD SUGARS 1 Each 0 09/08/2023 Active Insulin Glargine Solostar 100 UNIT/ML Subcutaneous Solution Pen-injector (Lantus SoloStar)Indication s:Type 2 diabetes mellitus with hyperglycemia, with long-term current use of insulin (HCC) Inject 10 Units under the skin at bedtime. 15 mL 5 09/09/2023 Active Pen Hester 31G X 5 MMIndications:Type 2 diabetes mellitus [...] mRNA, LNP-s, No Pre serve, 2-Dose Series (Oriental-[employer]ations) 07/03/2021,12/27/2020,12/06/2020 COVID-19, MRNA-LNP, 23-24, P F, 30 MCG/0.3 mL, 12 YRS AND ABOVE, IM (PFIZER-Comirnaty) 06/16/2023 Pneumococcal Conjugate Vacci ne, 20-valent ([id number]) 12/07/2022 Pneumococcal Polysaccharide PPV23 (Pneumovax) 09/08/2020 Season [...] as of this encounter Progress Notes * Remy Leija, meeting specialist - 09/20/2023 3:25 PM EST Prescribed medication: Medication: Octreotide Shipment date: 09/27 refill Delivery method: Specialty Mail Location Medication Delivered too? Prescription Address: [address] [place] [phone] JACKIE [facility] 09/20/2023,3:25 PM documented in this encounter Plan of Treatment Upcoming Encounters Date Type Department Care Team (Late st Contact Info) Description 09/28/2023 11:00 AM EST Nurse Only Ancillary 65 [facility] [address] [address] [place], Nurse Annual Wellness Visit 65 [facility] [address] [address] 10/06/2023 8:30 AM EST Pharmacy Pharmacy, [place] [address] [place] [address] Pharmacist1, [facility] [place] [address] [place] [address] 12/01/2023 2:30 PM EDT Office Visit Gastroenterology, [facility] 132 [place] [address] Teddy Mullen CRNP 132 [facility] [place] [address] 12/05/2023 9:40 AM EDT Office Visit Nephrology, [facility] [address] [place] [address] Augusto Lerner MD 200 [facility] [place] [address] 12/08/2023 8:30 AM EDT Nutrition Services Nutrition Services 65 [facility] [address] [place] [address] Aydee Barnes RDN 30 [facility] [address] [place] [address] 12/08/2023 9:00 AM EDT Office Visit Family Practice 65 [facility] [address] [address] Javy Moscoso, DO [address] [address] 12/12/2023 9:20 AM EDT Telemedicine Pulmonary Medicine, [place] [address] [place] [address] Iván Nielsen MD [address] [place] [address] Cart, Telemed Pulm Gw 132 [facility] [place] [address] 12/15/2023 8:00 AM EDT Laboratory Laboratory [facility], [address] [phone] [place], [facility] [place] [address] [place] [address] 02/16/2024 10:00 AM EDT Office Visit Sleep Disorders Ctr [facility] 132 [place] [phone] Debby Cornejo, 132 [facility] [place] [address] 03/08/2024 8:00 AM EDT Laboratory Laboratory Patient Service [place], [address] [address] [place], [facility] [place] [address] [place] [address] 03/15/2024 11:00 AM EDT Office Visit Hematology/Oncology [facility] 200 [facility] [address] Katt Mullen CRNP 400 [facility] [place] [address] Scheduled Procedures Name Priority Associated Diagnoses Date/Ti [...] COPD 03/28/2024 03/28/2023 CKD PHOS USE SMARTSET 72257 05/05/202402/2023, 02/02/2023, 01/11/2022, Additional history exists Depression Screening 06/16/2024 06/16/2023 Diabetic Foot Exam 06/16/2024 06/16/2023, 06/16/2023 CKD HGB USE SMARTSET 23754 09/08/202409/08, 09/08/2023, 08/04/2023, Additional history exists Albumin/Creatinine [...] the patient have Health Care Power of Palaeontologist? No Care Teams Colorist Formulator Relationship Specialty Start Date End Date Javy Moscoso DO [address] [place] [address] PCP - General Family Medicine 07/04/23 documented as of this encounter
--- OUTSIDE RECORDS SUMMARY | 2024-02-25 03:41 | External Medical Summary | Summary of Care ---
Author Name Unknown Organization [facility] Address [address] [place] [facility] [place] [address] Phone [phone] Care Team Providers Care Loading Manager Name Role Phone Javy Moscoso DO Primary Care Provider [phone] Reason for Visit * Reason Onset Date Comments Test Results 09/09/2023 Encounter Details Date Type Department Care Team (Late st Contact Info) Description 09/09/2023 Refill Family Practice [address] [place], [place] [address] [place] [address] Javy Moscoso DO [address] [place] [address] Type 2 diabetes mellitus with hyperglycemia, with long-term current use of insulin ([facility])* Allergies Active Allergy Reactions Criticality Noted Date Comments Lisinopril Unknown Low 11/15/2022 Verapamil Medium 06/26/2020 Heart Block documented as of this encounter (statuses as of 09/09/2023) Medications Medication Sig Dispensed Refills Start Date [...] 09/08/2023 Active Vitamin D (Ergocalciferol) 1.25 MG (79895 UT) Oral Capsule (Drisdol)Indication s:Vitamin D deficiency Take 1 Capsule by mouth Every Month. 6 Capsule 0 09/08/2023 03/06/2024 Active Ph03nix New Mediauch Ultra In Vitro Strip (Glucose Blood) USE DIRECTED UP TO THREE TIMES DAILY FOR HOME GLUCOSE TESTING 300 Strip 3 09/08/2023 Active Ph03nix New Mediauch Ultra 2 w/Device Kit USE DIRECTED TO TEST BLOOD SUGARS 1 Each 0 09/08/2023 Active Insulin Glargine Solostar 100 UNIT/ML Subcutaneous Solution Pen-injector (Lantus SoloStar)Indication s:Type 2 diabetes mellitus with hyperglycemia, with long-term current use of insulin ([facility]) Inject 10 Units under the skin at bedtime. 15 mL 5 09/09/2023 Active Pen [place] 31G X 5 MMIndications:Type 2 diabetes mellitus with hyperglycemia, with long-term current use of insulin ([facility]) Use as directed. Use as directed with glargine insulin once daily 100 Each 1 09/09/2023 Active documented as of this encounter (statuses as of 09/09/2023) Active Problems Problem Noted Date Diagnosed Date [...] 12/07/2022 Bilateral impacted cerumen 10/22/2022 Atherosclerosis of [place] co ronary artery without angina pectoris 07/15/2022 [...] as of this encounter (statuses as of 09/09/2023) Resolved Problems Problem Noted Date Diagnosed Date [...] as of this encounter (statuses as of 09/09/2023) Immunizations Name Administration Dates Next Due COVID-19 mRNA, LNP-s, No Pre serve, 2-Dose Series ([employer]) 07/03/2021,12/27/2020,12/06/2020 COVID-19, MRNA-LNP, 23-24, P F, 30 MCG/0.3 mL, 12 YRS AND ABOVE, IM (PFIZER-Comirnaty) 06/16/2023 Pneumococcal Conjugate Vacci ne, 20-valent ([id number]) 12/07/2022 Pneumococcal Polysaccharide PPV23 (Pneumovax) 09/08/2020 Season [...] Telephone Encounter - Javy Moscoso DO - 09/09/2023 10:45 AM ESTSigned Prescriptions: Disp Refills Insulin Glargine Solostar 100 UNIT/ML Subc*3 mL 5 Sig: Inject 10 Units under the skin at bedtime. Authorizing Provider: JAVY MOSCOSO Pen [place] 31G X 5 MM 100 Ea*1 Sig: Use as directed. Use as directed with glargine insulin once daily Authorizing Provider: JAVY MOSCOSO * Telephone Encounter - Javy Moscoso DO - 09/09/2023 10:45 AM EST Prescription for glargine insulin and pen needles sent to pharmacy per request * Telephone Encounter - Izabela Swann LPN - 09/09/2023 10:21 AM EST Pt's aware and verbalized understanding. PCP will send script to [place] [facility]. They will stop in for education either with MTM or here with us. Will determine at the time they leaf size picker the script. Pended Lantus. * Telephone Encounter - Javy Moscoso DO - 09/09/2023 9:03 AM EST Lab studies shows chronic kidney disease stable compared to prior study. Lab shows vitamin-D insufficiency. Continue current vitamin-D replacement therapy. Lab shows diabetes uncontrolled with hemoglobin A1c level 8.7. . Advise start Lantus insulin 10 units HS documented in this encounter Plan of Treatment Upcoming Encounters Date Type Department Care Team (Late st Contact Info) Description 09/15/2023 12:00 PM EST Office Visit Hematology/Oncology [facility] [address] Katt Mullen CRNP 400 [facility] [place] [address] 09/28/2023 11:00 AM EST Nurse Only Ancillary 65 [facility] [address] [place] [address] [place], Nurse Annual Wellness Visit 65 [facility] [address] [place] [address] 10/06/2023 8:30 AM EST Pharmacy Pharmacy, [place] [address] [place] [address] Pharmacist1, [facility] [place] [address] [place] [address] 12/01/2023 2:30 PM EDT Office Visit Gastroenterology, [facility] 132 [place] [address] Teddy Mullen CRNP 132 [place] [address] 12/05/2023 9:40 AM EDT Office Visit Nephrology, [facility] [place] [address] Augusto Lerner MD 200 [facility] [place] [address] 12/08/2023 8:30 AM EDT Nutrition Services Nutrition Services 65 [facility] [address] [place] [address] Aydee Barnes RDN 30 [facility] 11 [place] [address] 12/08/2023 9:00 AM EDT Office Visit Family Practice 65 [facility] [address] [place] [address] Javy Moscoso, DO [address] [place] [address] 12/12/2023 9:20 AM EDT Telemedicine Pulmonary Medicine, [place] [address] [place] [address] Iván Nielsen MD [address] [place] [address] Cart, Telemed Pulm G[facility] [place] [address] 02/16/2024 10:00 AM EDT Office Visit [facility] Ctr [facility] [place] [phone] Debby Cornejo, [facility] [place] [address] Scheduled Procedures Name Priority Associated Diagnoses Date/Ti me COLONOSCOPY FLEXIBLE PROXIMAL DIAGNOSTIC Recall History of colon polyps Health Maintenance Due Date Last Done Comments Hepatitis B (1 of 3 - Risk 3-dose series) 2012 Albumin/Creatinine Ratio 07/02/2023 07/02/2022 Diabetic Eye Exam 11/03/2023 11/02/2022 COLONOSCOPY-ANNUAL AGES 18-100 12/11/2023 12/10/2022, 12/10/2022, 12/15/2020, Additional history exists GFR 03/08/2024 09/08/2023, 02/2023, 05/05/2023, Additional history exists HbA1c 03/08/2024 09/08/2023, 02/2023, 02/02/2023, Additional history exists O2 ASSESSMENT COMPLETED IN PAST YEAR FOR COPD 03/28/2024 03/28/2023 CKD PHOS USE SMARTSET 45557 05/05/2024 090 02/2023, 02/02/2023, 01/11/2022, Additional history exists Depression Screening 06/16/2024 06/16/2023 Diabetic Foot Exam 06/16/2024 06/16/2023, 06/16/2023 CKD HGB USE SMARTSET 10231 09/08/202409/08, 09/08/2023, 08/04/2023, Additional history exists DTaP,Tdap,and Td Vaccines (2 [...] the patient have Health Care Power of Vending Machine Collector? No Care Teams Loading Manager Relationship Specialty Start Date End Date Javy Moscoso DO [address] [place] [phone] PCP - General Family Medicine 07/04/23 documented as of this encounter
--- OUTSIDE RECORDS SUMMARY | 2024-02-25 03:41 | External Medical Summary ---
Author Name Unknown Address Unknown Organization [id number]:[facility] - [address] [facility]. [place] [address] Laboratory Report Ordering Provider Test Date Status MONTSE MEJIA 09/08/2023 10:02:15 Final Observation Date Value Abnormality Reference (Units ) Status SYNC LEUKOCYTES IN BLOOD BY AUTOMATED COUNT 09/08/2023 10:02:15 5.89 4.00-10.80 (K/uL) Final Segs 09/08/2023 10:02:15 70.6 40.0-75.0 (%) Final Lymphs % 09/08/2023 10:02:15 18.8 18.0-42.0 (%) Final Monos 09/08/2023 10:02:15 6.8 1.0-11.0 (%) Final Eosinophils 09/08/2023 10:02:15 2.2 0.0-6.0 (%) Final Basos 09/08/2023 10:02:15 1.4 0.0-2.0 (%) Final Immature Granulocyte, Percent 09/08/2023 10:02:15 0.2 0.0-2.0 (%) Final Absolute Segs 09/08/2023 10:02:15 4.16 1.80-7.70 (K/uL) Final Lymphs, absolute 09/08/2023 10:02:15 1.11 1.00-4.80 (K/ul) Final Monos, Abs 09/08/2023 10:02:15 0.40 0.00-1.10 (K/uL) Final Eos, Abs 09/08/2023 10:02:15 0.13 0.00-0.70 (K/uL) Final Basos, Abs 09/08/2023 10:02:15 0.08 0.00-0.20 (K/uL) Final Immature Granulocytes, Number 09/08/2023 10:02:15 0.01 0.00-0.20 (K/uL) Final Performing Location [facility] - [address]. [place] [address]
--- OUTSIDE RECORDS SUMMARY | 2024-02-25 03:41 | External Medical Summary | Summary of Care ---
Author Name Unknown Organization [facility] Address [address] [place] [facility] [place] [address] Phone [phone] Care Team Providers Care Advanced Practice Provider Name Role Phone Javy Moscoso DO Primary Care Provider [phone] Reason for Visit * Reason Comments Outpatient Testing Encounter Details Date Type Department Care Team (Late st Contact Info) Description 09/09/2023 9:40 AM EST Laboratory Laboratory, [place] [address] [place] [address] [place], Specimen Drop Off Lab [address] [place] [address] Stage 3b chronic kidney disease (HCC); Type 2 diabetes mellitus with stage 3b [...] 09/08/2023 Active Vitamin D (Ergocalciferol) 1.25 MG (21500 UT) Oral Capsule (Drisdol)Indication s:Vitamin D deficiency Take 1 Capsule by mouth Every Month. 6 Capsule 0 09/08/2023 03/06/2024 Active SimpleCrewTouch Ultra In Vitro Strip (Glucose Blood) USE DIRECTED UP TO THREE TIMES DAILY FOR HOME GLUCOSE TESTING 300 Strip 3 09/08/2023 Active Align Technologyuch Ultra 2 w/Device Kit USE DIRECTED TO TEST BLOOD SUGARS 1 Each 0 09/08/2023 Active documented as of this encounter (statuses [...] (PFIZER-Comirnaty) 06/16/2023 Pneumococcal Conjugate Vacci ne, 20-valent ([id number]) 12/07/2022 Pneumococcal Polysaccharide PPV23 (Pneumovax) 09/08/2020 Season [...] money to buy more. Never true 06/16/20 23 Within the past 12 months, t he [...] PM EST Office Visit Hematology/Oncology [facility] [place] [facility] [place] [address] Katt Mullen CRNP [address] [place] [id number] 09/28/2023 11:00 AM EST Nurse Only Ancillary [address], [place] [address] [address] [place], Nurse Annual Wellness Visit [address] [place] [address] 10/06/2023 8:30 AM EST Pharmacy Pharmacy, [place] [address] [place] [address] Pharmacist1, [facility] [address] [address] 12/01/2023 2:30 PM EDT Office Visit Gastroenterology, [facility] [place] [address] Teddy Mullen CRNP 132 [facility] [place] [address] 12/05/2023 9:40 AM EDT Office Visit Nephrology, [facility] 200 [facility] [place] [address] Augusto Lerner MD 200 [facility] [place] [address] 12/08/2023 8:30 AM EDT Nutrition Services Nutrition Services [address] [place] [address] [address] [place] [address] Aydee Barnes, ESTEBAN 30 [facility] 11 [place] [address] 12/08/2023 9:00 AM EDT Office Visit Family Practice [address] [place] [address] [address] [place] [phone] Javy Moscoso DO [address] [place] [phone] 12/12/2023 9:20 AM EDT Telemedicine Pulmonary Medicine, [place] [address] [place] [address] Iván Nielsen MD [address] [place] [address] Cart, Telemed Pulm Gw [facility] [place] [address] 02/16/2024 10:00 AM EDT Office Visit Sleep Disorders Ctr [facility] [address] [place] [phone] Debby Cornejo, DO [address] [place] [address] Pending Results Name Type Priority Associated Diagnoses Date /Time PROTEIN/ CREATININE RATIO, URINE Lab Routine Stage 3b chronic kidney disease (HCC) 09/09/2023 9:35 AM EST URINALYSIS WITH MICROSCOPIC EXAM Lab Routine Stage 3b chronic kidney disease (HCC) 09/09/2023 9:35 AM EST ALBUMIN / CREATININE RATIO, URINE Lab Routine Type 2 diabetes mellitus with stage 3b chronic kidney disease, without long-term current use of insulin (HCC) 09/09/2023 9:35 AM EST Scheduled Procedures Name Priority Associated Diagnoses Date/Ti [...] COPD 03/28/2024 03/28/2023 CKD PHOS USE SMARTSET 49436 05/05/202402/2023, 02/02/2023, 01/11/2022, Additional history exists Depression Screening 06/16/2024 06/16/2023 Diabetic Foot Exam 06/16/2024 06/16/2023, 06/16/2023 CKD HGB USE SMARTSET 82157 09/08/202409/08, 09/08/2023, 08/04/2023, Additional history exists DTaP,Tdap,and [...] Diagnoses Diagnosis Stage 3b chronic kidney disease (HCC) Type 2 diabetes mellitus with stage [...] the patient have Health Care Power of Label Stamper? No Care Teams Advanced Practice Provider Relationship Specialty Start Date End Date Javy Moscoso DO [address] [place] [address] PCP - General Family Medicine 07/04/23 documented as of this encounter
--- OUTSIDE RECORDS SUMMARY | 2024-02-25 03:41 | External Medical Summary ---
Author Name Unknown Address Unknown Organization K01:[facility] [place] [address] [place] [address] Laboratory Report Ordering Provider Test Date Status HOUSTON ADEN 09/09/2023 09:35:42 Final Normal: <30 mg/g creatinine< br/>High: 30-300 mg/g creatinine
Very High: >300 mg/g creatinine
Nephrotic: >2200 mg/g creatinine Observation Date Value Abnormality Reference (Units ) Status Albumin, Urine 09/09/2023 09:35:42 1.65 (mg/dL) Final Creatinine, Urine 09/09/2023 09:35:42 33 (mg/dL) Final Albumin/Creatinine [Mass Ratio] in Urine 09/09/2023 09:35:42 50 Above high normal <30 (mg/g Creat) Final Performing Location [facility] [place] [address] [place] [address]
--- OUTSIDE RECORDS SUMMARY | 2024-02-25 03:41 | External Medical Summary | Summary of Care ---
Author Name Unknown Organization [facility] Address [address] [place] [address] Phone [phone] Care Team Providers Care Pan Washer Name Role Phone Javy Moscoso DO Primary Care Provider [phone] Reason for Visit * Reason Comments Dosage Adjustment In Person (Anticoag Cl inic) Diabetes Follow-Up Encounter Details Date Type Department Care Team (Late st Contact Info) Description 09/08/2023 8:00 AM [facility] Pharmacy Pharmacy, [place] [address] [place] [address] Pharmacist1, [facility] [place] [address] [place] [address] Type 2 diabetes mellitus without complication, without long-term current use of insulin ([facility])* Allergies Active Allergy Reactions Criticality Noted Date Comments Lisinopril Unknown Low 11/15/2022 Verapamil Medium 06/26/2020 Heart Block documented as of this encounter (statuses as of 09/08/2023) Medications Medication Sig Dispensed Refills Start Date [...] the morning. 100 Tablet 3 08/05/2023 Active OneTouch Ultra In Vitro Strip (Glucose Blood) USE DIRECTED UP TO THREE TIMES DAILY FOR HOME GLUCOSE TESTING 300 Strip 3 09/08/2023 Active OneTouch Ultra 2 w/Device Kit USE DIRECTED TO TEST BLOOD SUGARS 1 Each 0 09/08/2023 Active OneTouch Ultra In Vitro Strip USE DIRECTED TWICE DAILY FOR HOME GLUCOSE TESTING 200 Strip 3 10/25/2022 4 Discontinue d(Refill) tiZANidine HCl 2 MG Oral Tablet (Zanaflex)Indicati ons:Lumbar radiculopathy Take 1 Tablet by mouth at bedtime as needed for Muscle spasms. 90 Tablet 1 06/16/2023 4 Discontinue d(Refill) Vitamin D (Ergocalciferol) 1.25 MG (34838 UT) Oral Capsule (Drisdol)Indicatio ns:Vitamin D deficiency Take 1 Capsule by mouth every 4 weeks. 3 Capsule 1 06/16/2023 4 Discontinue d(Medicatio n List Clean Up) documented as of this encounter (statuses as of 09/08/2023) Active Problems Problem Noted Date Diagnosed Date [...] 12/07/2022 Bilateral impacted cerumen 10/22/2022 Atherosclerosis of [place] co ronary artery without angina pectoris 07/15/2022 [...] as of this encounter (statuses as of 09/08/2023) Resolved Problems Problem Noted Date Diagnosed Date [...] as of this encounter (statuses as of 09/08/2023) Immunizations Name Administration Dates Next Due COVID-19 mRNA, LNP-s, No Pre serve, 2-Dose Series (Sevenpop) 07/03/2021,12/27/2020,12/06/2020 COVID-19, MRNA-LNP, 23-24, P F, 30 MCG/0.3 mL, 12 YRS AND ABOVE, IM (NodePrime-Comirnat) 06/16/2023 Pneumococcal Conjugate Vacci ne, 20-valent ([id number]) 12/07/2022 Pneumococcal Polysaccharide PPV23 (Pneumovax) 09/08/2020 Season [...] this encounter Progress Notes * Hans Kaba, [facility] - 09/08/2023 7:57 AM EST Medication Therapy Disease Management Clinic - Diabetes Management Progress Note Walker Mancini, identified by name and date of , is a 73 year old male being seen for diabetes management/education. Patient presents for return diabetic visit. DIABETES: Current diabetic medications: Metformin 500 mg ER 1 tab daily (at bedtime) Jardiance 25 mg daily (start 08/05) Glimepiride 4 mg BID Medication Injection Site: N/A Lifestyle: Diet: unchanged Diet Coke - down to 2/day from 7-8/day Ice cream and potato chips sometimes before bed Glucose Review/SMBG: Readings per patient memory/recall: Patient is currently testing 1-3 times a day Trouble with getting enough blood to complete finger sticks, running out of strips early. Current Rx for BID testing. Hypoglycemia: Does your blood sugar go below 70 mg/dL? No Hyperglycemia symptoms present: Dizziness Recent Labs Units 08/04/23 0752 02/02/23 0849 07/15/22 0944 HEMOGLOBIN A1C - [facility] % 9.2* 7.5* 6.8* Recent Labs Units 08/04/23 0752 05/05/23 0750 04/04/23 0850 ESTIMATED GLOMERULAR FILTRATION RATE - [facility] mL/min 46* 47* 39* CREATININE - [facility] mg/dL 1.6* 1.6* 1.8* HYPERTENSION: Patient on ACEi/ARB: yes BP Readings from Last 3 Encounters: 09/08/23 100/62 09/05/23 106/54 06/16/23 116/78 Blood pressure at goal: yes HYPERLIPIDEMIA: Patient is taking moderate or high intensity statin: yes HEALTH MAINTENANCE REVIEW: Health Maintenance Due Topic Date Due Hepatitis B (1 of 3 - Risk 3-dose series) Never done Albumin/Creatinine Ratio 07/02/2023 ASSESSMENT & PLAN: ICD-10-CM 1. Type 2 diabetes mellitus without complication, without long-term current use of insulin (HCC) E11.9 BG Readings - Blood sugars not available. Did not bring glucometer to appointment. No reported hypoglycemia. A1c remains above goal. Testing 1-3 times per day. Having trouble getting enough blood fortest, using deepest lancet setting. New glucometer and test strips orders Medications - Reviewed current regimen, patient is adherent to regimen. Jardiance increased 08/05 . Tolerating current regimen. Octreotide injections started in November, sugars have increased since starting, following up with Hem/Onc on whether patient is to continue. Continue to monitor renal function on metformin. Diet, Exercise, Lifestyle - Making improvements to diet. Reducing amount of diet soda, introducing fruits, maltese yogurt. Educated on plate method, portion sizes, food label. Educated on protein with meal or snack. Also seeing Aydee Barnes RDN with 65F. Patient is agreeable to SMBG 2-3 time(s) daily. Patient aware to contact clinic if any hypoglycemia before next visit. MEDICATION CHANGES: no change Diabetic Medications: Metformin 500 mg ER 1 tab daily (at bedtime) Jardiance 25 mg daily glimepiride 4 mg BID HEALTH MAINTENANCE INTERVENTIONS: Labs: Ordered & Scheduled: Urine Microalbumin Immunizations: Up to Date Foot Exam: Up to Date Eye Exam: Up to Date Annual Wellness Visit: Due FOLLOW UP: Return to clinic in 4 weeks 10/06/2023 Hans Kaba RPh Clinical Pharmacist - Metal Mover Medication Therapy Management Clinic 09/08/2023, 7:57 AM documented in this encounter Plan of Treatment Upcoming Encounters Date Type Department Care Team (Late st Contact Info) Description 09/15/2023 12:00 PM EST Office Visit Hematology/On[facility] [address] Katt Mullen CRNP 400 [facility] [place] [phone] 09/28/2023 11:00 AM EST Nurse Only Ancillary [address] [place] [address] [address] [place] [address] [place], Nurse Annual Wellness Visit [address] [place] [phone] 10/06/2023 8:30 AM EST Pharmacy Pharmacy, [place] [address] [place] [phone] Pharmacist1, [facility] [place] [address] [place] [phone] 12/01/2023 2:30 PM EDT Office Visit Gastroenterology, [facility] 132 [place] [address] Teddy Mullen CRNP [address] [place] [address] 12/05/2023 9:40 AM EDT Office Visit Nephrology, [facility] 200 [facility] [place] [address] Augusto Lerner MD 200 [facility] [place] [address] 12/08/2023 8:30 AM EDT Nutrition Services Nutrition Services [address] [place] [address] [address] [place], [place] [address] Aydee Barnes, ESTEBAN 30 [facility] 11 [place] [address] 12/08/2023 9:00 AM EDT Office Visit Family Practice [address] [place] [address] [place] [address] Javy Moscoso DO [address] [place] [address] 12/12/2023 9:20 AM EDT Telemedicine Pulmonary Medicine, [place] [address] [place] [address] Iván Nielsen MD [address] [place] [address] Cart, Telemed Pulm 132 [facility] [place] [address] 02/16/2024 10:00 AM EDT Office Visit Sleep Disorders Ctr [facility] [address] [place] [phone] Debby Cornejo DO 132 [facility] [place] [address] Scheduled Procedures Name Priority Associated Diagnoses Date/Ti me COLONOSCOPY FLEXIBLE PROXIMAL DIAGNOSTIC Recall History of colon polyps Health Maintenance Due Date Last Done Comments Hepatitis B (1 of 3 - Risk 3-dose series) 2012 Albumin/Creatinine Ratio 07/02/2023 07/02/2022 Diabetic Eye Exam 11/03/2023 11/02/2022 COLONOSCOPY-ANNUAL AGES 18-100 12/11/2023 12/10/2022, 12/10/2022, 12/15/2020, Additional history exists GFR 02/03/2024 08/04/2023, 02/2023, 04/04/2023, Additional history exists HbA1c 02/03/2024 08/04/2023, 0 02/2023, 07/15/2022, Additional history exists O2 ASSESSMENT COMPLETED IN PAST YEAR FOR COPD 03/28/2024 03/28/2023 CKD PHOS USE SMARTSET 05741 05/05/20240 02/2023, 02/02/2023, 01/11/2022, Additional history exists Depression Screening 06/16/2024 06/16/2023 Diabetic Foot Exam 06/16/2024 06/16/2023, 06/16/2023 CKD HGB USE SMARTSET 34193 08/04/202408/04, 08/04/2023, 07/05/2023, Additional history exists DTaP,Tdap,and Td Vaccines (2 [...] Visit Diagnoses Diagnosis Type 2 diabetes mellitus without complication, without long-term current use of insulin (HCC)- [...] the patient have Health Care Power of Psych Arnp? No Care Teams Pan Washer Relationship Specialty Start Date End Date Javy Moscoso DO [address] [place] [address] PCP - General Family Medicine 07/04/23 documented as of this encounter
--- OUTSIDE RECORDS SUMMARY | 2024-02-25 03:41 | External Medical Summary ---
Author Name Unknown Address Unknown Organization [id number]:[facility] [place] [address] [facility] [address] Laboratory Report Ordering Provider Test Date Status RONIT ESCOBAR 09/09/2023 09:35:42 Final Observation Date Value Abnormality Reference (Units ) Status Color of Urine by Auto 09/09/2023 09:35:42 Colorless Colorless, Light Yellow, Yellow, Dark Yellow Final Clarity, Urine 09/09/2023 09:35:42 Clear Clear Final Glucose [Mass/volume] in Urine by Automated test strip 09/09/2023 09:35:42 >=1000 Abnormal Negative (mg/dL) Final Bilirubin.total [Presence] in Urine by Automated test strip 09/09/2023 09:35:42 Negative Negative Final Ketones [Mass/volume] in Urine by Automated test strip 09/09/2023 09:35:42 Negative Negative (mg/dL) Final Specific gravity, Urine 09/09/2023 09:35:42 1.008 1.003-1.030 Final Hemoglobin [Presence] in Urine by Automated test strip 09/09/2023 09:35:42 Negative Negative Final pH, Urine 09/09/2023 09:35:42 6.0 5.0-7.5 (Units) Final Protein [Mass/volume] in Urine by Automated test strip 09/09/2023 09:35:42 Negative Negative (mg/dL) Final Urobilinogen [Mass/volume] in Urine by Automated test strip 09/09/2023 09:35:42 Normal Normal (mg/dL) Final Nitrite [Presence] in Urine by Automated test strip 09/09/2023 09:35:42 Negative Negative Final Leukocyte esterase [Presence] in Urine by Automated test strip 09/09/2023 09:35:42 Negative Negative Final RBC, Urine 09/09/2023 09:35:42 0-2 0-2 (/HPF) Final WBC, Urine 09/09/2023 09:35:42 0-2 0-2 (/HPF) Final Bacteria [#/area] in Urine sediment by Microscopy high power field 09/09/2023 09:35:42 0-25 0-25 (/HPF) Final Hyaline casts, Urine 09/09/2023 09:35:42 10-19 Abnormal None (/LPF) Final Performing Location [facility] [place] [address] [facility] [address]
--- OUTSIDE RECORDS SUMMARY | 2024-02-25 03:41 | External Medical Summary ---
Author Name Unknown Address Unknown Organization [id number]:LABORATORY [facility] - [address] [place] [address] Laboratory Report Ordering Provider Test Date Status MONTSE MEJIA 09/08/2023 10:02:15 Final Observation Date Value Abnormality Reference (Units ) Status WBC, Total 09/08/2023 10:02:15 5.89 4.00-10.80 (K/uL) Final RBC 09/08/2023 10:02:15 5.12 4.50-5.25 (M/uL) Final Hemoglobin 09/08/2023 10:02:15 15.5 14.0-16.8 (g/dL) Final HCT 09/08/2023 10:02:15 47.7 40.0-48.4 (%) Final MCV 09/08/2023 10:02:15 93.2 82.0-99.5 (fL) Final MCH 09/08/2023 10:02:15 30.3 27.0-34.0 (pg) Final MCHC 09/08/2023 10:02:15 32.5 32.0-36.0 (g/dL) Final RDW 09/08/2023 10:02:15 14.1 11.5-15.5 (%) Final Platelets 09/08/2023 10:02:15 145 140-400 (K/uL) Final MPV 09/08/2023 10:02:15 14.0 6.6-11.1 (fL) Final Nucleated erythrocytes/100 leukocytes [Ratio] in Blood by Automated count 09/08/2023 10:02:15 0 <=0 (/100 WBCs) Final Performing Location LABORATORY [facility] - [address] [place] [address]
--- OUTSIDE RECORDS SUMMARY | 2024-02-25 03:41 | External Medical Summary | Summary of Care ---
Author Name Unknown Organization [facility] Address [address] [facility] [address] Phone [phone] Care Team Providers Care Wave Solder Offbearer Name Role Phone Javy Moscoso DO Primary Care Provider [phone] Reason for Referral * Evaluate & Treat - Unlimited Visits (Within 10 days (routine)) - Authorized Specialty Diagnoses / Procedures Referred By Justus gonsalez Referred To Contact Gastroenterology Diagnoses Melena AVM (arteriovenous malformation) of small bowel, acquired Javy Moscoso DO [address] [place] [address] Referral ID Status Reason Start Date Expiration Date Visits Requested Visits Authorized [id number] Authorized Specialty Services Required 09/08/2023 999 999 Question Answer Referral Priority Within 10 days (routine) Where should this appointment be scheduled? [facility] For what condition is the patient being referred? 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); Type 2 diabetes mellitus with diabetic peripheral angiopathy without gangrene, unspecified whether terminal gauger insulin use ([facility]); Melena; AVM (arteriovenous malformation) of small bowel, acquired; Spinal stenosis of lumbar region without neurogenic claudication; Carcinoid tumor of rectum, unspecified whether malignant; Lumbar radiculopathy; COPD, group A, by GOLD 2017 classification ([facility]); ILD (interstitial lung disease) ([facility]); GUS on CPAP; Vitamin D deficiency; Morbid (severe) obesity due to excess calories ([facility]) Allergies Active Allergy Reactions Criticality Noted [...] 09/08/2023 Active Vitamin D (Ergocalciferol) 1.25 MG (75489 UT) Oral Capsule (Drisdol)Indicatio ns:Vitamin D deficiency Take 1 Capsule by mouth Every Month. 6 Capsule 0 09/08/2023 4 Active OneTouch Ultra In Vitro Strip USE DIRECTED TWICE DAILY FOR HOME GLUCOSE TESTING 200 Strip 3 10/25/2022 4 Discontinue d(Refill) tiZANidine HCl 2 MG Oral Tablet (Zanaflex)Indicati ons:Lumbar radiculopathy Take 1 Tablet by mouth at bedtime as needed for Muscle spasms. 90 Tablet 1 06/16/2023 4 Discontinue d(Refill) Vitamin D (Ergocalciferol) 1.25 MG (57344 UT) Oral Capsule (Drisdol)Indicatio ns:Vitamin D deficiency [...] mRNA, LNP-s, No Pre serve, 2-Dose Series ([employer]) 07/03/2021,12/27/2020,12/06/2020 COVID-19, MRNA-LNP, 23-24, P F, 30 MCG/0.3 mL, 12 YRS AND ABOVE, IM (Xpliant-Comirnaty) 06/16/2023 Pneumococcal Conjugate Vacci ne, 20-valent ([id number]) 12/07/2022 Pneumococcal Polysaccharide PPV23 (Pneumovax) 09/08/2020 Season [...] Q uit: 1994 Smokeless Tobacco: Current Chew Tobacco Cessation:Ready to Q uit: No; Counseling Given: Yes Comments:03/11/23 1 can per [...] Sign Reading Time Taken Comments Blood Pressure 100/62 09/08/2023 9:12 AM EST Pulse 58 09/08/2023 9:12 AM EST Temperature 36.3 C (97.3 F) 09/08/2023 9:12 AM ES T Respiratory Rate - - Oxygen Saturation 95% 09/08/2023 9:12 AM EST Inhaled Oxygen Concentration - - Weight 107.9 kg (237 lb 12.8 oz) 09/08/2023 9:12 AM EST Height - - Body Mass Index 35.12 07/04/2023 8:13 AM EST documented in this [...] of this encounter Progress Notes * Javy Moscoso DO - 09/08/2023 9:45 AM EST Images from the original note were not included. History of Present Illness Walker Mancini is a 73 year old male that presents for Follow Up Patient is a 73-year-old male with history of hypertension, CKD 3, PSVT, diabetes mellitus type 2, peripheral vascular disease, AV malformation of small bowel, carcinoid tumor of rectum, lumbar spinal stenosis, lumbar radiculopathy, COPD, interstitial lung disease , GUS on CPAP and vitamin-D deficiency. Patient feels generally well and is following a diet exercise program. Patient is compliant with CPAP and is tolerating well. Patient complains of chronic intermittent low back pain. Patient complains of burning type pain bilateral feet. Patient denies muscle weakness. Patient denies chest pain, palpitations shortness of breath or edema. Patient denies cough or sputum. Patient complains of intermittent melanotic stools. Patient denies abdominal pain nausea vomiting diarrhea , constipation or hematochezia. Patient had complaint of intermittent episodes of low blood pressure. Patient had recent cardiology evaluation and isosorbide was discontinued due to borderline hypotension. Review of systems otherwise negative Physical Exam Vitals: 09/08/23 0912 Temp: 36.3 C (97.3 F) Pulse: 58 SpO2: 95% BP: 100/62 BP 100/62 (BP Site: Left Arm) | Pulse 58 | Temp 36.3 C (97.3 F) | Wt 107.9 kg (237 lb 12.8 oz) | SpO2 95% | BMI 35.12 kg/m | BSA 2.29 m General: alert, healthy, and no distress Head: Normocephalic, No masses, lesions, tenderness or abnormalities Eye Exam: PERRLA, extraocular movements intact, conjunctiva are pink and non- injected, sclera clear Ears: External ears normal, Canals clear, TM's Normal Nose: no mucosal erythema, no mucosal edema, no purulent discharge Oropharynx: no exudate, no erythema, lips, buccal mucosa, and tongue normal, and mucous membranes are moist Neck: supple, no adenopathy, no bruits, thyroid normal size, non-tender, without nodularity Lymph: no palpable lymphadenopathy Heart: regular rate & rhythm, no murmur, and no gallops Lungs: chest symmetric with normal AP diameter, no chest deformities noted, no chest wall tenderness, bibasilar crackles, no rhonchi or wheeze Pulses: carotid=2/4 w/o bruits Abdomen: abdomen soft, obese, non-tender, normal bowel sounds, and no masses or organomegaly Back: back symmetric, no curvature, no costovertebral angle tenderness, lumbar paravertebral musclespasm and tenderness decreased range of motion lumbar flexion L1-L5 Extremities: less than 2 second capillary refill, no joint deformities, effusion, or inflammation Neuro Exam: alert & oriented x 3 with fluent speech, no focal motor/sensory deficits, gait normal, decreased DTR 0/4 bilateral patella and Achilles Skin: skin color, texture, turgor are normal, no rashes or significant lesions I have reviewed the following results: Iron, ferritin,, Hemoglobin A1C, CBC, and BMP Assessment and Plan 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) Continue present medication Carvedilol 25 mg 1 tab twice daily Losartan 100 mg 1 tab once daily Torsemide 20 mg 1 tab once daily - BASIC METABOLIC PANEL; Future PSVT (paroxysmal supraventricular tachycardia) Stable Type 2 diabetes mellitus with stage 3b chronic kidney disease, without long-term current use of insulin ([facility]) Continue present medication Glimepiride 4 mg 1 tab twice daily Metformin ER 500 mg 1 tab once daily Jardiance 25 mg 1 tab once daily Reduced caloric intake diabetic diet and exercise - BASIC METABOLIC PANEL; Future Type 2 diabetes mellitus with diabetic peripheral angiopathy without gangrene, unspecified whether long-term insulin use ([facility]) Continue present medication as above Melena Continue present medication Pantoprazole 40 mg 1 tab once daily - ADULT GASTROENTEROLOGY REFERRAL OP - CBC WITH WBC DIFFERENTIAL; Future - IRON SCREEN, INCLUDING TIBC; Future AVM (arteriovenous malformation) of small bowel, acquired Continue present medication Octreotide 50 mcg per mL inject 50 mcg twice daily Follow with gastroenterology - ADULT GASTROENTEROLOGY REFERRAL OP - CBC WITH WBC DIFFERENTIAL; Future - IRON SCREEN, INCLUDING TIBC; Future Spinal stenosis of lumbar region without neurogenic claudication - tiZANidine HCl 2 MG Oral Tablet (Zanaflex); Take 1 Tablet by mouth at bedtime as needed for Muscle spasms. Gabapentin 600 mg 1 tab twice daily noon and bedtime Gabapentin 100 mg 1 tab once daily a.m. Carcinoid tumor of rectum, unspecified whether malignant Repeat colonoscopy November 2023 Lumbar radiculopathy Stable COPD, group A, by GOLD 2017 classification ([facility]) Stable ILD (interstitial lung disease) ([facility]) Stable GUS on CPAP CPAP Vitamin D deficiency - Vitamin D (Ergocalciferol) 1.25 MG (40097 UT) Oral Capsule (Drisdol); Take 1 Capsule by mouth Every Month. Morbid (severe) obesity due to excess calories (HCC) Reduced caloric intake diet and exercise Wrap-Up Time: I spent a total of 40-54 [...] 09/15/2023 12:00 PM EST Office Visit Hematology/Oncology [facility] [place] [address] [facility] [place] [address] Katt Mullen CRNP [address] [facility] [place] [address] 09/28/2023 11:00 AM EST Nurse Only Ancillary [address] [place] [address] [place] [phone] [place], Nurse Annual Wellness Visit [address] [place] [phone] 10/06/2023 8:30 AM EST Pharmacy Pharmacy, [place] [address] [place] [phone] Pharmacist1, [facility] [place] [address] [place] [address] 12/01/2023 2:30 PM EDT Office Visit Gastroenterology, [facility] [address] [place] [address] Teddy Mullen CRNP [address] [place] [address] 12/05/2023 9:40 AM EDT Office Visit Nephrology, [facility] [address] [facility] [place] [address] Augusto Lerner MD [address] [facility] [place] [address] 12/08/2023 8:30 AM EDT Nutrition Services [facility] [address] [place] [address] Aydee Barnes, [place] [address] [facility] [address] [place] [address] 12/08/2023 9:00 AM EDT Office Visit Family Practice [facility] [address] [place] [address] Javy Moscoso, DO [address] [place] [address] 12/12/2023 9:20 AM EDT Telemedicine Pulmonary Medicine, [place] [address] [place] [address] Iván Nielsen MD [address] [place], [place] [id number] Cart, Telemed Pulm Gw [address] [facility] [place] [address] 02/16/2024 10:00 AM EDT Office Visit [facility] [place] [id number] Debby Cornejo, DO [address] [place] [address] Scheduled Procedures Name Priority Associated Diagnoses Date/Ti me COLONOSCOPY FLEXIBLE PROXIMAL DIAGNOSTIC Recall History of colon polyps Scheduled Referrals Name Type Priority Associated Diagnoses Order Schedule ADULT GASTROENTEROLOGY REFERRAL OP Referral Within 10 days (routine) Melena AVM (arteriovenous malformation) of small bowel, acquired Ordered: 09/08/2023 Health Maintenance Due Date Last Done Comments Hepatitis B (1 of 3 - Risk 3-dose series) 2012 Albumin/Creatinine Ratio 07/02/2023 07/02/2022 Diabetic Eye Exam 11/03/2023 11/02/2022 COLONOSCOPY-ANNUAL AGES 18-100 12/11/2023 12/10/2022, 12/10/2022, 12/15/2020, Additional history exists GFR 02/03/2024 08/04/2023, 090 02/2023, 04/04/2023, Additional history exists HbA1c 02/03/2024 08/04/2023, 060 02/2023, 07/15/2022, Additional history exists O2 ASSESSMENT COMPLETED IN PAST YEAR FOR COPD 03/28/2024 03/28/2023 CKD PHOS USE SMARTSET [id number] 05/05/2024 090 02/2023, 02/02/2023, 01/11/2022, Additional history exists Depression Screening 06/16/2024 06/16/2023 Diabetic Foot Exam 06/16/2024 06/16/2023, 06/16/2023 CKD HGB USE SMARTSET 22876 09/08/202409/08, 09/08/2023, 08/04/2023, Additional history exists DTaP,Tdap,and [...] as of this encounter Visit Diagnoses Diagnosis 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)- Primary PSVT (paroxysmal supraventricular tachycardia) Paroxysmal supraventricular tachycardia Type 2 diabetes mellitus with stage 3b chronic kidney disease, without long-term current use of insulin (HCC) Type 2 diabetes mellitus with diabetic peripheral angiopathy without gangrene, unspecified whether terminal gauger insulin use (HCC) Melena Blood in stool AVM (arteriovenous malformation) of small bowel, acquired Spinal stenosis of lumbar region without neurogenic claudication Spinal stenosis, lumbar region, without neurogenic claudication Carcinoid tumor of rectum, unspecified whether malignant Lumbar radiculopathy Thoracic or lumbosacral neuritis or radiculitis, unspecified COPD, group A, by GOLD 2017 classification (HCC) ILD (interstitial lung disease) (HCC) Postinflammatory pulmonary fibrosis GUS on CPAP Obstructive sleep apnea (adult) (pediatric) Vitamin D deficiency Unspecified vitamin D deficiency Morbid (severe) obesity due to excess calories (HCC) documented in this encounter Advance Directives [...] the patient have Health Care Power of Manufacturing Process Technician? No Care Teams Wave Solder Offbearer Relationship Specialty Start Date End Date Javy Moscoso DO [address] [place] [id number] PCP - General Family Medicine 07/04/23 documented as of this encounter"
--- OUTSIDE RECORDS SUMMARY | 2024-02-25 03:41 | External Medical Summary ---
Author Name Unknown Address Unknown Organization K01:LAB[facility]ATORY [facility] - [address] [place] [address] Laboratory Report Ordering Provider Test Date Status RONIT ESCOBAR 09/09/2023 09:35:42 Final Normal: <150 mg/ g creatinine
High: 150-500 mg/g creatinine
Very High: >500 mg/g creatinine
Nephrotic: >3000 mg/g creatinine Observation Date Value Abnormality Reference (Units ) Status Protein/Creatinine [Ratio] in Urine 09/09/2023 09:35:42 121 <150 (mg/g ) Final Protein, Urine 09/09/2023 09:35:42 4 (mg/dL) Final Creatinine, Urine 09/09/2023 09:35:42 33 (mg/dL) Final Performing Location [facility]ORY [facility] - [address] [place] [address]
--- OUTSIDE RECORDS SUMMARY | 2024-02-25 03:41 | External Medical Summary ---
Author Name Unknown Address Unknown Organization [id number]:LAB[facility]ATORY [facility] [place] - [address] [place] [address] Laboratory Report Ordering Provider Test Date Status MONTSE MEJIA 09/08/2023 10:02:15 Final Observation Date Value Abnormality Reference (Units ) Status Ferritin 09/08/2023 10:02:15 100 30-400 (ng /mL) Final Performing Location LABORATORY [facility] - [address] [place] [address]
--- OUTSIDE RECORDS SUMMARY | 2024-02-25 03:41 | External Medical Summary | Summary of Care ---
Author Name Unknown Organization [facility] Address [address] [place] [address] Phone [phone] Care Team Providers Care Tearer Press Clipping Name Role Phone Javy Moscoso DO Primary Care Provider + [phone] Reason for Visit * Reason Comments Medical Nutrition Therapy Follow Up Encounter Details Date Type Department Care Team (Latest Contact Info) Description 09/08/2023 8:30 AM [facility] Nutrition Services Nutrition Services [address] [place] [address] 10 [place] [address] Aydee Barnes, RDN 30 [facility] 11 [place] [address] Obesity, Class II, BMI 35-39.9*; Type 2 diabetes mellitus with stage 3b chronic kidney disease, without long-term current use of insulin ([facility]) Allergies Active Allergy Reactions Criticality [...] BEDTIME 180 Tablet 1 01/03/2023 01/03/2024 Active OneTouch Ultra In Vitro Strip USE DIRECTED TWICE DAILY FOR HOME GLUCOSE TESTING 200 Strip 3 10/25/2022 10/25/2023 Active Torsemide 20 MG Oral Tablet (Demadex) [...] MORNING 90 Tablet 3 06/11/2023 06/10/2024 Active tiZANidine HCl 2 MG Oral Tablet (Zanaflex)Indicatio ns:Lumbar radiculopathy Take 1 Tablet by mouth at bedtime as needed for Muscle spasms. 90 Tablet 1 06/16/2023 Active Vitamin D (Ergocalciferol) 1.25 MG (86858 UT) Oral Capsule (Drisdol)Indication s:Vitamin D deficiency Take 1 Capsule by mouth every 4 weeks. 3 Capsule 1 06/16/2023 Active Additional Information Patient not taking.Reported on 09/05/2023 Empagliflozin 25 MG Oral Tablet (Jardiance)Indicati ons:Type 2 diabetes mellitus with hyperglycemia, without long-term current use of insulin (HCC),Type 2 diabetes mellitus with stage 3b chronic kidney disease, without long-term current use of insulin (HCC) Take 1 Tablet by mouth in the morning. 100 Tablet 3 08/05/2023 Active documented as of this encounter (statuses [...] 12/07/2022 Bilateral impacted cerumen 10/22/2022 Atherosclerosis of [place] co ronary artery without angina pectoris 07/15/2022 [...] mRNA, LNP-s, No Pre serve, 2-Dose Series (m2p-labs) 07/03/2021,12/27/2020,12/06/2020 COVID-19, MRNA-LNP, 23-24, P F, 30 MCG/0.3 mL, 12 YRS AND ABOVE, IM (PFIZER-Comirnaty) 06/16/2023 Pneumococcal Conjugate Vacci ne, 20-valent ([id number]) 12/07/2022 Pneumococcal Polysaccharide PPV23 (Pneumovax) 09/08/2020 Season [...] Sign Reading Time Taken Comments Blood Pressure - - Pulse - - Temperature - - Respiratory Rate - - Oxygen Saturation - - Inhaled Oxygen Concentration - - Weight 107.9 kg (237 lb 12.8 oz) 09/08/2023 8:50 AM EST Height - - Body Mass [...] this encounter Patient Instructions * Patient Instructions* Aydee Barnes RDN - 09/08/2023 9:02 AM EST Discussed the following goals with patient who agrees to the following: Continue to work on reducing carbohydrate foods at meals and including a balance with protein/meat and vegetables Continue to limit to 2 diet sodas per day. documented in this encounter Progress Notes * Aydee Barnes, RDN - 09/08/2023 8:37 AM EST NUTRITION FOLLOW-UP NOTE - [address] [facility] Name: Walker Mancini Location: NUTRITION SERVICES [address] [place] [address] Date: 09/08/2023 Time: 8:38 AM Patient was identified by name and date. Patient was seen [id number] in the clinic. Reason for Nutrition Follow-up: Type 2 Diabetes NUTRITION ASSESSMENT: Client History Walker has made progress towards the following goals: Start to reduce diet soda to 3-4 cans per day - good Try to increase portion of vegetables at meals, even trying to include vegetables with breakfast more often - good Support System: Spouse - present at today's appointment Barriers to Learning: None Special Education Needs: None Food/Nutrition-Related History Describes typical diet history/24 hr recall Breakfast: 7-8 AM - sausage gravy and 1 biscuits, home fries onions and celery; 4-5 slices arora and 3 eggs with toast and home fries; will occasionally have scrapple; will skip breakfast a couple times per week Snacks: 10 AM - Peanut butter sandwich cracker pack or mongolian yogurt (80 calories) Lunch: 1-2 PM - will make a hot meal - filet mignon with a baked potato and peas; Meat (steak or pork or chicken or ham), starch (pasta or potato) and vegetables (peas, green beans, corn, ) Dinner: 6 PM - leftovers from dinner - smaller amounts Snacks: May occasionally have ice cream or a yogurt or apple crisp with ice cream. Drinks: Reduced to 2 sodas per day; Water (about 6 16.6 ounce bottles per day); Has been limiting beer to once per month (May have about 3-5 in an evening). Diet Recall/Food Logs Indicate: AREAS FOR IMPROVEMENT: Large portions Inconsistent carbohydrate intake POSITIVE: Improving fruit and vegetable intake Adequate fluid intake Food and Nutrient Intake and other pertinent information: Has been including some tangelos or grapes Physical Activity: Plays with his dog, playing ball; also building [employer] projects in his garage. Medications Changes/Updates: Current Outpatient Medications Medication Sig Dispense Refill [...] MORNING AND BEFORE BEDTIME 180 Tablet 1 OneTouch Ultra In Vitro Strip USE DIRECTED TWICE DAILY FOR HOME GLUCOSE TESTING 200 Strip 3 Torsemide 20 MG Oral Tablet (Demadex) [...] BY MOUTH EVERY MORNING 90 Tablet 3 tiZANidine HCl 2 MG Oral Tablet (Zanaflex) Take 1 Tablet by mouth at bedtime as needed for Muscle spasms. 90 Tablet 1 Vitamin D (Ergocalciferol) 1.25 MG (64878 UT) Oral Capsule (Drisdol) Take 1 Capsule by mouth every 4 weeks. (Patient not taking: Reported on 09/05/2023) 3 Capsule 1 Empagliflozin 25 MG Oral Tablet (Jardiance) Take 1 Tablet by mouth in the morning. 100 Tablet 3 No current facility-administered medications for this visit. Nutrition-Focused Physical Findings Overall appearance: overweight/obese Digestive system: No issues Nerves and cognition: Awake, alert and Oriented Anthropometric Measurements Current Weight: Wt Readings from Last 1 Encounters: 09/08/23 107.9 kg (237 lb 12.8 oz) Wt Readings from Last 4 Encounters: 09/08/23 107.9 kg (237 lb 12.8 oz) 09/05/23 107.5 kg (237 lb) 07/04/23 109.3 kg (240 lb 14.4 oz) 06/16/23 109.6 kg (241 lb 9.6 oz) Weight Change: decreased by 6 pounds in the past 4 months BMI Readings from Last 1 Encounters: 09/08/23 35.12 kg/m Biochemical Data, Medical Tests, and Procedures Will have lab work drawn today Self-Monitoring Blood Glucose Source of Information: Participant verbally reviewed from memory Frequency of tests: twice per day Fastin-199; up to 210 Before Lunch: about 310 Hemoglobin AIC Results: Lab Results Component Value Date/Time HEMOGLOBIN A1C - [facility] 9.2 (H) 08/04/2023 07:52 AM HEMOGLOBIN A1C - [facility] 7.5 (H) 02/02/2023 08:49 AM HEMOGLOBIN A1C - [facility] 6.8 (H) 07/15/2022 09:44 AM HEMOGLOBIN A1C - [facility] 6.9 (H) 09/08/2020 03:23 PM HEMOGLOBIN A1C - [facility] 6.8 (H) 03/19/2020 11:06 AM HEMOGLOBIN A1C - [facility] 6.5 (H) 08/20/2019 09:22 AM Previous Nutrition Diagnosis: Altered nutrition-related laboratory values related to Type 2 Diabetes as evidenced by HgbA1c: 7.5 % Food and nutrition-related knowledge deficit related to Lack of exposure to nutritional management of Type 2 Diabetes with MyPlate guidelines as evidenced by Request for additional information and support CURRENT NUTRITION DIAGNOSIS Same as previous Altered nutrition-related laboratory values related to Type 2 Diabetes as evidenced by HgbA1c: 9.2 % Food and nutrition-related knowledge deficit related to Lack of exposure to nutritional management of Type 2 Diabetes with MyPlate guidelines as evidenced by Request for additional information and support NUTRITION INTERVENTION: NUTRITION EDUCATION Comprehensive nutrition education NUTRITION COUNSELING Strategies Motivational Interviewing Diabetes Education: Carbohydrate Counting/Meal Planning Diabetes Standards of Care: Care Gaps have been addressed with other members of [address] [place] [address] Team Nutrition Prescription: Diet: Consistent Carbohydrate Good Nutrition Hol[place] [facility]. Jeor: Hol[place] St Jeor (Male): 2205.7 (07/04/23812) Daily Calorie Needs to promote weight loss: 6507-6066 Kcals Daily Protein Needs: 90-105 Grams protein Current Goals: Discussed the following goals with patient who agrees to the following: Continue to work on reducing carbohydrate foods at meals and including a balance with protein/meat and vegetables Continue to limit to 2 diet sodas per day. Dietitian Action: Commended Walker on the progress he has made with his goals. Discussed the importance of pairing protein with carbohydrate for better post prandial glucose control. Also discussed a variety of meal examples to demonstrate this balance. Used food models to demonstrate recommended portion sizes for a variety of food choices. Reviewed the vegetables than would count as a carbohydrate choice. Recommendations to Ordering Provider: Continue current plan of nutrition care. NUTRITION MONITORING AND EVALUATION: The following will be monitored and evaluated at the next visit: Monitor weight. Monitor labs. Monitor goals and progress. Plan: Patient scheduled to return when returning for Physician appointment; dietitian phone # given for future reference. 30 minutes Medical Nutrition Therapy Time In: 837 (09/08/23 08) Time Out: 903 (09/08/23903) 15 min (8-22 min) 30 min (23-37 min) 45 min (38-52 min) 60 min (53-67 min) 75 min (68-82 min) 90 min (83-97 min) 105 min (98-113 min) Aydee Barnes RDN 09/08/2023 8:38 AM [facility] [address] [place] [address] documented in this encounter Plan of Treatment Upcoming Encounters Date Type Department Care Team (Late st Contact Info) Description 09/08/2023 10:00 AM EST Laboratory Laboratory, [place] [address] [place] [address] [place], Lab [address] [place] [address] 09/15/2023 12:00 PM EST Office Visit Hematology/Oncology [employer] [facility] [place] [address] Katt Mullen CRNP [facility] [id number] 09/28/2023 11:00 AM EST Nurse Only Ancillary [address], [place] [address] [place] [phone] [place], Nurse Annual Wellness Visit [address] [place] [address] 10/06/2023 8:30 AM EST Pharmacy Pharmacy, [place] [address] [place] [phone] Pharmacist1, [facility] [place] [address] [place] [address] 12/05/2023 9:40 AM EDT Office Visit Nephrology, [facility] [address] [facility] [address] [place] [address] Augusto Lerner MD 200 [facility] [place] [address] 12/12/2023 9:20 AM EDT Telemedicine Pulmonary Medicine, [place] [address], [place] [id number] Iván Nielsen MD [address], [place] [id number] Cart, Telemed Pulm Gw 132 [facility] [place] [address] 02/16/2024 10:00 AM EDT Office Visit Sleep Disorders Ctr [facility] [address] [place] [address] Debby Cornejo, DO [address] [place] [address] Scheduled Procedures Name Priority Associated Diagnoses Date/Ti me COLONOSCOPY FLEXIBLE PROXIMAL DIAGNOSTIC Recall History of colon polyps Health Maintenance Due Date Last Done Comments Hepatitis B (1 of 3 - Risk 3-dose series) 2012 Albumin/Creatinine Ratio 07/02/2023 07/02/2022 Diabetic Eye Exam 11/03/2023 11/02/2022 COLONOSCOPY-ANNUAL AGES 18-100 12/11/2023 12/10/2022, 12/10/2022, 12/15/2020, Additional history exists GFR 02/03/2024 08/04/2023, 09/0 02/2023, 04/04/2023, Additional history exists HbA1c 02/03/2024 08/04/2023, 06/0 02/2023, 07/15/2022, Additional history exists O2 ASSESSMENT COMPLETED IN PAST YEAR FOR COPD 03/28/2024 03/28/2023 CKD PHOS USE SMARTSET 87595 05/05/2024 09/0 02/2023, 02/02/2023, 01/11/2022, Additional history exists Depression Screening 06/16/2024 06/16/2023 Diabetic Foot Exam 06/16/2024 06/16/2023, 06/16/2023 CKD HGB USE SMARTSET 81007 08/04/202408/04, 08/04/2023, 07/05/2023, Additional history exists DTaP,Tdap,and [...] as of this encounter Visit Diagnoses Diagnosis Obesity, Class II, BMI 35-39.9- Primary Morbid obesity Type 2 diabetes mellitus with stage 3b [...] the patient have Health Care Power of Sleeve Baster? No Care Teams Tearer Press Clipping Relationship Specialty Start Date End Date Javy Moscoso DO [address] [place] [address] PCP - General Family Medicine 07/04/23 documented as of this encounter
--- OUTSIDE RECORDS SUMMARY | 2024-02-25 03:41 | External Medical Summary | Summary of Care ---
Author Name Unknown Organization [facility] Address [address] [place] [address] Phone [phone] Care Team Providers Care Truck Car And Bus Cleaner Name Role Phone Javy Moscoso DO Primary Care Provider + [phone] Encounter Details Date Type Department Care Team (Late st Contact Info) Description 09/08/2023 Population Health External Data Unspecified Department Allergies Active Allergy Reactions Criticality Noted Date Comments Lisinopril Unknown Low 11/15/2022 Verapamil Medium 06/26/2020 Heart Block documented as of this encounter (statuses as of 09/12/2023) Medications Medication Sig Dispensed Refills Start Date [...] 09/08/2023 Active Vitamin D (Ergocalciferol) 1.25 MG (10618 UT) Oral Capsule (Drisdol)Indication s:Vitamin D deficiency Take 1 Capsule by mouth Every Month. 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 pectoris 07/15/2022 [...] as of this encounter (statuses as of 09/12/2023) Resolved Problems Problem Noted Date Diagnosed Date [...] as of this encounter (statuses as of 09/12/2023) Immunizations Name Administration Dates Next Due COVID-19 mRNA, LNP-s, No Pre serve, 2-Dose Series (Pfizer) 07/03/2021,12/27/2020,12/06/2020 COVID-19, MRNA-LNP, 23-24, P F, 30 MCG/0.3 mL, 12 YRS AND ABOVE, IM (PFIZER-Comirnaty) 06/16/2023 Pneumococcal Conjugate Vacci ne, 20-valent ([id number]) 12/07/2022 Pneumococcal Polysaccharide PPV23 (Pneumovax) 09/08/2020 Season [...] 09/15/2023 12:00 PM EST Office Visit Hematology/Oncology [facility] 200 [place] [address] Katt Mullen CRNP 400 [facility] [place] [address] 09/28/2023 11:00 AM EST Nurse Only Ancillary 65 [facility], [place] [address] [place] [phone] [place], Nurse Annual Wellness Visit [address] [place] [phone] 10/06/2023 8:30 AM EST Pharmacy Pharmacy, [place] [address] [place] [phone] Pharmacist1, [facility] [place] [address] [place] [address] 12/01/2023 2:30 PM EDT Office Visit Gastroenterology, [facility] 132 [facility] [place] [address] Teddy Mullen CRNP 132 [facility] [place] [address] 12/05/2023 9:40 AM EDT Office Visit Nephrology, [facility] [address] [place] [address] Augusto Lerner MD 200 [facility] [place] [address] 12/08/2023 8:30 AM EDT Nutrition Services Nutrition Services [address] [place] [address] [address] [place] [address] Aydee Barnes, RDN 30 [facility] 11 [place] [address] 12/08/2023 9:00 AM EDT Office Visit Family Practice [address] [place] [address] [address] [place] [address] Javy Moscoso DO [address] [place] [address] 12/12/2023 9:20 AM EDT Telemedicine Pulmonary Medicine, [place] [address] [place] [address] Iván Nielsen MD [address] [place] [address] Cart, Telemed Pulm Gw 132 [facility] [place] [address] 02/16/2024 10:00 AM EDT Office Visit Sleep Disorders Ctr [facility] 132 [facility] [place] [phone] Debby Cornejo, 132 [facility] [place] [address] Scheduled Procedures Name Priority Associated Diagnoses Date/Ti [...] COPD 03/28/2024 03/28/2023 CKD PHOS USE SMARTSET 37416 05/05/202402/2023, 02/02/2023, 01/11/2022, Additional history exists Depression Screening 06/16/2024 06/16/2023 Diabetic Foot Exam 06/16/2024 06/16/2023, 06/16/2023 CKD HGB USE SMARTSET 89451 09/08/202409/08, 09/08/2023, 08/04/2023, Additional history exists Albumin/Creatinine [...] the patient have Health Care Power of Scrap Crusher? No Care Teams Truck Car And Bus Cleaner Relationship Specialty Start Date End Date Javy Moscoso DO [address] [place] [address] PCP - General Family Medicine 07/04/23 documented as of this encounter
--- OUTSIDE RECORDS SUMMARY | 2024-02-25 03:41 | External Medical Summary | Summary of Care ---
Author Name Unknown Organization [facility] Address [address] [place] [facility] [place] [address] Phone [phone] Care Team Providers Care Enterprise Analyst Name Role Phone Javy Moscoso DO Primary Care Provider + [phone] Reason for Visit * Reason Comments Outpatient Testing Encounter Details Date Type Department Care Team (Late st Contact Info) Description 09/08/2023 10:00 AM [facility] Laboratory Laboratory, [place] [address] [place] [phone] [place], Lab [address] [place] [address] Type 2 diabetes mellitus with stage 3b chronic kidney disease, without long-term current use of insulin (HCC); 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 6 Capsule 0 09/08/2023 03/06/2024 Active documented as of this encounter (statuses [...] 12/07/2022 Bilateral impacted cerumen 10/22/2022 Atherosclerosis of [place] co ronary artery without angina pectoris 07/15/2022 [...] mRNA, LNP-s, No Pre serve, 2-Dose Series (Split) 07/03/2021,12/27/2020,12/06/2020 COVID-19, MRNA-LNP, 23-24, P F, 30 MCG/0.3 mL, 12 YRS AND ABOVE, IM (PFIZER-Comirnaty) 06/16/2023 Pneumococcal Conjugate Vacci ne, 20-valent ([id number]) 12/07/2022 Pneumococcal Polysaccharide PPV23 (Pneumovax) 09/08/2020 Season [...] the money to buy more. Never true 10/19/20 23 Within the past 12 months, t [...] 09/15/2023 12:00 PM EST Office Visit Hematology/Oncology [facility] 200 [facility] [place] [address] Katt Mullen CRNP 400 [facility] [place] [address] 09/28/2023 11:00 AM EST Nurse Only Ancillary [address], [place] [address] [place] [phone] [place], Nurse Annual Wellness Visit [address] [place] [phone] 10/06/2023 8:30 AM EST Pharmacy Pharmacy, [place] [address] [place] [address] Pharmacist1, [facility] [address] [place] [phone] 12/01/2023 2:30 PM EDT Office Visit Gastroenterology, [facility] [place] [address] Teddy Mullen CRNP 132 [place] [address] 12/05/2023 9:40 AM EDT Office Visit Nephrology, [facility] 200 [facility] [place] [address] Augusto Lerner MD 200 [facility] [place] [address] 12/08/2023 8:30 AM EDT Nutrition Services Nutrition Services [address] [place] [address] [address] [place] [address] Aydee Barnes, ESTEBAN 30 [facility] 11 [place] [address] 12/08/2023 9:00 AM EDT Office Visit Family Practice [address] [place] [address] [address] [place] [address] Javy Moscoso DO [address] [place] [phone] 12/12/2023 9:20 AM EDT Telemedicine Pulmonary Medicine, [place] [address] [place] [address] Iván Nielsen MD [address] [place] [address] Cart, Telemed Pulm Gw 132 [facility] [place] [address] 02/16/2024 10:00 AM EDT Office Visit Sleep Disorders Ctr [facility] [address] [place] [address] Debby Cornejo, [address] [place] [address] Pending Results Name Type Priority Associated Diagnoses Date /Time HEMOGLOBIN A1C Lab Routine Type 2 diabetes mellitus with stage 3b chronic kidney disease, without long-term current use of insulin (HCC) 09/08/2023 10:02 AM EST COMPREHENSIVE METABOLIC PANEL Lab Routine Type 2 diabetes mellitus with stage 3b chronic kidney disease, without long-term current use of insulin (HCC) 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) Chronic kidney disease, stage 3b (HCC) 09/08/2023 10:02 AM EST 25-HYDROXY VITAMIN D Lab Routine Chronic kidney disease, stage 3b (HCC) 09/08/2023 10:02 AM EST CBC WITH WBC DIFFERENTIAL Lab STAT Iron deficiency anemia due to chronic blood loss 09/08/2023 10:02 AM EST IRON SCREEN, INCLUDING TIBC Lab STAT Iron deficiency anemia due to chronic blood loss 09/08/2023 10:02 AM EST FERRITIN Lab STAT Iron deficiency anemia due to chronic blood loss 09/08/2023 10:02 AM EST CBC Lab STAT Iron deficiency anemia due to chronic blood loss 09/08/2023 10:02 AM EST DIFFERENTIAL, AUTOMATED Lab STAT Iron deficiency anemia due to chronic blood loss 09/08/2023 10:02 AM EST Scheduled Procedures Name Priority Associated [...] COPD 03/28/2024 03/28/2023 CKD PHOS USE SMARTSET 33418 05/05/2024 09/0 02/2023, 02/02/2023, 01/11/2022, Additional history exists Depression Screening 06/16/2024 06/16/2023 Diabetic Foot Exam 06/16/2024 06/16/2023, 06/16/2023 CKD HGB USE SMARTSET 33445 08/04/202408/04, 08/04/2023, 07/05/2023, Additional history exists DTaP,Tdap,and [...] without long-term current use of insulin (HCC) 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) Chronic kidney disease, stage 3b (HCC) Iron deficiency anemia due to chronic blood loss Iron deficiency anemia secondary to blood loss (chronic) Melena Blood in stool AVM (arteriovenous malformation) of small bowel, acquired documented in this encounter Advance Directives Latest Code Status on File Code Status Date Activated Date Inactivated Comments Full Code 02/15/2019 9:23 PM 02/18/2019 2:08 PM This order reflects the patients wishes and were consensually agreed upon. Question Answer Comments Discussion of Advance Directives occurred with: Patient Does the patient have a Living Will? No Does the patient have Health Care Power of Bear Keeper? No Care Teams Enterprise Analyst Relationship Specialty Start Date End Date Javy Moscoso DO [address] [place] [address] PCP - General Family Medicine 07/04/23 documented as of this encounter
--- OUTSIDE RECORDS SUMMARY | 2024-02-25 03:41 | External Medical Summary | Summary of Care ---
Author Name Unknown Organization [facility] Address [address] [place] [address] Phone [phone] Care Team Providers Care Associate Professor Of Geography Name Role Phone Javy Moscoso DO Primary Care Provider + [phone] Reason for Visit * Reason Onset Date Comments Test Results 09/12/2023 Encounter Details Date Type Department Care Team (Late st Contact Info) Description 09/12/2023 Telephone Nephrology, [address] [place] [address] Augusto Lerner MD [address] [facility] [place] [address] Test Results Allergies Active Allergy Reactions Criticality [...] 09/08/2023 Active Vitamin D (Ergocalciferol) 1.25 MG (81937 UT) Oral Capsule (Drisdol)Indication s:Vitamin D deficiency Take 1 Capsule by mouth Every Month. 6 Capsule 0 09/08/2023 03/06/2024 Active Social 2 Step Ultra In Vitro Strip (Glucose Blood) USE DIRECTED UP TO THREE TIMES DAILY FOR HOME GLUCOSE TESTING 300 Strip 3 09/08/2023 Active Secret Salesuch Ultra 2 w/Device Kit USE DIRECTED TO TEST BLOOD SUGARS 1 Each 0 09/08/2023 Active Insulin Glargine Solostar 100 UNIT/ML Subcutaneous Solution Pen-injector (Lantus SoloStar)Indication s:Type 2 diabetes mellitus with hyperglycemia, with long-term current use of insulin (HCC) Inject 10 Units under the skin at bedtime. 15 mL 5 09/09/2023 Active Pen [place] 31G X 5 MMIndications:Type 2 diabetes mellitus [...] 12/07/2022 Bilateral impacted cerumen 10/22/2022 Atherosclerosis of [place] co ronary artery without angina pectoris 07/15/2022 [...] mRNA, LNP-s, No Pre serve, 2-Dose Series (Cover) 07/03/2021,12/27/2020,12/06/2020 COVID-19, MRNA-LNP, 23-24, P F, 30 MCG/0.3 mL, 12 YRS AND ABOVE, IM (PFIZER-Comirnaty) 06/16/2023 Pneumococcal Conjugate Vacci ne, 20-valent ([id number]) 12/07/2022 Pneumococcal Polysaccharide PPV23 (Pneumovax) 09/08/2020 Season [...] encounter Miscellaneous Notes * Telephone Encounter - Rachel Banks RN - 09/12/2023 10:44 AM EST TE with pt regarding stable lab results and no changes. * Telephone Encounter - Rachel Banks RN - 09/12/2023 10:43 AM EST ----- Message from Augusto Lerner MD sent at 09/12/2023 10:33 AM EST ----- Kidney labs stable. Continue same documented in this encounter Plan of Treatment Upcoming Encounters Date Type Department Care Team (Late st Contact Info) Description 09/15/2023 12:00 PM EST Office Visit Hematology/Oncology [facility] [place] [address] [facility] [place] [address] Katt Mullen CRNP 400 [facility] [place] [phone] 09/28/2023 11:00 AM EST Nurse Only Ancillary 65 [facility], [place] [address] [place] [address] [place], Nurse Annual Wellness Visit [address] [place] [phone] 10/06/2023 8:30 AM EST Pharmacy Pharmacy, [place] [address] [place] [phone] Pharmacist1, [facility] [place] [address] [place] [phone] 12/01/2023 2:30 PM EDT Office Visit Gastroenterology, [facility] 132 [facility] [place] [address] Teddy Mullen CRNP 132 [facility] [place] [address] 12/05/2023 9:40 AM EDT Office Visit Nephrology, [facility] [address] [facility] [place] [address] Augusto Lerner MD [address] [facility] [place] [address] 12/08/2023 8:30 AM EDT Nutrition Services Nutrition Services 65 [facility] [address] [place] [address] Aydee Barnes, [place] 30 [facility] 11 [place] [address] 12/08/2023 9:00 AM EDT Office Visit Family Practice 65 [facility] [address] [place] [address] Javy Moscoso, DO [address] [place] [address] 12/12/2023 9:20 AM EDT Telemedicine Pulmonary Medicine, [place] [address], [place] [phone] Iván Nielsen MD [address], [place] [phone] Cart, Telemed Pulm Gw 132 [facility] [place] [address] 02/16/2024 10:00 AM EDT Office Visit Sleep Disorders Ctr [facility] 132 [facility] [place] [phone] Debby Cornejo, DO 132 [facility] [place] [address] Scheduled Procedures Name Priority Associated Diagnoses Date/Ti [...] COPD 03/28/2024 03/28/2023 CKD PHOS USE SMARTSET 21056 05/05/2024 09/0 02/2023, 02/02/2023, 01/11/2022, Additional history exists Depression Screening 06/16/2024 06/16/2023 Diabetic Foot Exam 06/16/2024 06/16/2023, 06/16/2023 CKD HGB USE SMARTSET 74420 09/08/202409/08, 09/08/2023, 08/04/2023, Additional history exists Albumin/Creatinine [...] the patient have Health Care Power of Computer Numerical Control Operator? No Care Teams Associate Professor Of Geography Relationship Specialty Start Date End Date Javy Moscoso DO [address] [place] [address] PCP - General Family Medicine 07/04/23 documented as of this encounter
--- OUTSIDE RECORDS SUMMARY | 2024-02-25 03:41 | External Medical Summary ---
Author Name Unknown Address Unknown Organization K01:[facility] - [address] [place] [address] Laboratory Report Ordering Provider Test Date Status MONTSE MEJIA 09/08/2023 10:02:15 Final Observation Date Value Abnormality Reference (Units ) Status Iron 09/08/2023 10:02:15 50 45-176 (ug /dL) Final Iron-binding capacity 09/08/2023 10:02:15 342 250-425 (ug/dL) Final Transferrin Sat % 09/08/2023 10:02:15 15 15 -55 (%) Final Performing Location [facility] - [address] [place] [address]
--- OUTSIDE RECORDS SUMMARY | 2024-02-25 03:42 | External Medical Summary | Summary of Care ---
Author Name Unknown Organization [facility] Address [address] [facility] [address] Phone [phone] Care Team Providers Care Cell Tower Climber Name Role Phone Javy Moscoso DO Primary Care Provider + [phone] Reason for Visit * Reason Comments Follow Up Encounter Details Date Type Department Care Team (Latest Contact Info) Description 09/05/2023 8:00 AM EST Office Visit Cardiology, [facility] [address] [place] [address] Sebas Everett DO [address] [place] [address] Atherosclerosis of [place] coronary artery of [place] heart without angina pectoris*; HTN, goal below 140/90; Dyslipidemia, goal LDL below 100; Hypertensive heart disease without congestive heart failure; Edema, unspecified type; GUS on CPAP; Stage 3 chronic kidney disease, unspecified whether stage 3a or 3b CKD (HCC) Allergies Active Allergy Reactions Criticality Noted Date Comments Lisinopril Unknown Low 11/15/2022 Verapamil Medium 06/26/2020 Heart Block documented as of this encounter (statuses as of 09/05/2023) Medications Medication Sig Dispensed Refills Start Date [...] BEDTIME 180 Tablet 1 01/03/2023 4 Active GetMyBoatuch Ultra In Vitro Strip USE DIRECTED TWICE DAILY FOR HOME GLUCOSE TESTING 200 Strip 3 10/25/2022 4 Active Torsemide 20 MG Oral Tablet [...] 03/08/2023 Active Carvedilol 25 MG Oral Tablet (Coreg)Indications :HTN, [...] MORNING 90 Tablet 3 06/11/2023 4 Active tiZANidine HCl 2 MG Oral Tablet (Zanaflex)Indicati ons:Lumbar radiculopathy Take 1 Tablet by mouth at bedtime as needed for Muscle spasms. 90 Tablet 1 06/16/2023 Active Vitamin D (Ergocalciferol) 1.25 MG (77859 UT) Oral Capsule (Drisdol)Indicatio ns:Vitamin D deficiency Take 1 Capsule by mouth every 4 weeks. 3 Capsule 1 06/16/2023 Active Additional Information Patient not taking.Reported on 09/05/2023 Empagliflozin 25 MG Oral Tablet (Jardiance)Indicat ions:Type 2 diabetes mellitus with hyperglycemia, without long-term current use of insulin (HCC),Type 2 diabetes mellitus with stage 3b chronic kidney disease, without long-term current use of insulin (HCC) Take 1 Tablet by mouth in the morning. 100 Tablet 3 08/05/2023 Active Isosorbide Mononitrate ER 30 MG Oral Tablet Extended Release 24 Hour (Imdur)Indications :HTN, goal below 140/90,Heart palpitations TAKE ONE TABLET BY MOUTH IN THE MORNING 90 Tablet 3 04/19/2023 4 Discontinue d(Adverse reaction) Empagliflozin 25 MG Oral Tablet (Jardiance)Indicat ions:Type 2 diabetes mellitus with hyperglycemia, without long-term current use of insulin (HCC),Type 2 diabetes mellitus with stage 3b chronic kidney disease, without long-term current use of insulin (HCC) Take 1 Tablet by mouth in the morning. 10 Tablet 0 08/05/2023 4 Discontinue d(Medicatio n/Dose Changed) documented as of this encounter (statuses as of 09/05/2023) Active Problems Problem Noted Date Diagnosed Date COPD, group A, by GOLD 2017 classification 08/08 Overview: Per COPD GOLD Classification ILD (interstitial lung disease) 04/27/2023 Centrilobular emphysema 04/27/2023 BEARDEN (dyspnea on exertion) 03/11/2023 Risk and functional assessment 03/08/2023 Iron deficiency anemia due to chronic blood loss 12/17/2022 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: Advised repeat colonoscopy November 2023 PSVT (paroxysmal supraventricular tachycardia) 0 12/07/2022 Bilateral impacted cerumen 10/22/2022 Atherosclerosis of [place] co ronary artery without angina pectoris 07/15/2022 [...] as of this encounter (statuses as of 09/05/2023) Resolved Problems Problem Noted Date Diagnosed Date [...] as of this encounter (statuses as of 09/05/2023) Immunizations Name Administration Dates Next Due COVID-19 mRNA, LNP-s, No Pre serve, 2-Dose Series ([place] Carbon Fiber (GLCF)) 07/03/2021,12/27/2020,12/06/2020 COVID-19, MRNA-LNP, 23-24, P F, 30 MCG/0.3 mL, 12 YRS AND ABOVE, IM (PFIZER-Comirnaty) 06/16/2023 Pneumococcal Conjugate Vacci ne, 20-valent ([id number]) 12/07/2022 Pneumococcal Polysaccharide PPV23 (Pneumovax) 09/08/2020 Season Influenza, Quad, PF, Adjuvanted, 65+ Yrs, IM (FLUAD) 06/03/2020 Seasonal Influenza Virus Vac cine, Unspecified Formulation 05/22/2019 Seasonal Influenza, Quadriva lent Hd (Fluzone Hd) 06/16/2023,05/06/2022,06/13/2021 TDAP (age 10 and older)(Boostrix) 03/17/2021 Zoster Vaccine Recombinant (Shingrix) 11/17/2021 documented as of this encounter Social History Tobacco Use Types Packs/Day Years Used Date Smoking Tobacco: Former Cigarettes 09 17 Q uit: 1994 Smokeless Tobacco: Current Chew [...] Sign Reading Time Taken Comments Blood Pressure 106/54 09/05/2023 8:00 AM EST Pulse 60 09/05/2023 8:00 AM EST Temperature - - Respiratory Rate 16 09/05/2023 8:00 AM EST Oxygen Saturation - - Inhaled Oxygen Concentration - - Weight 107.5 kg (237 lb) 09/05/2023 8:00 AM EST Height - - Body Mass Index 35 07/04/2023 8:13 AM EST documented in this [...] as of this encounter Progress Notes * Sebas Everett, - 09/05/2023 8:09 AM EST SUBJECTIVE: Patient returns today for follow-up of hypertension, hypertensive heart disease, and dyslipidemia. Hydralazine discontinued since most recent office visit in November. Reports occasional episodes of hypotension at home with systolic blood pressure as low as 85 mmHg. Feeling well today. Denies chest pain or unusual shortness of breath. Hemoglobin has returned to baseline after treatment by Gastroenterology. 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 Denies signs/symptoms of GI/ blood loss. Tolerating iron supplementation and other medications listed below. No interim hospitalizations. ECG: Normal sinus rhythm, normal ECG 2D echo 10/28/2022: Microcavitation study performed. The examination is adequate to evaluate the referral indication. The LV wall thickness is mildly increased (concentric). The left ventricular wall motion is normal. Calculated LV ejection Fraction = 62% (bi-plane method of discs). The left ventricular diastolic function is mildly abnormal (grade I). Moderate aortic valve sclerosis is present. Aortic stenosis is absent. The aortic root is borderline enlarged. The proximal ascending thoracic aorta is normal sized. The interatrial septum is intact without interatrial shunt, atrial septal defect, or patent foramenovale. No [id number] shunt was detected with the administration of agitated saline contrast at rest or with the Valsalva maneuver. Dobutamine stress echo report January 04, 2022: STRESS STUDY: The stress echo is negative for inducible ischemia. No symptoms suggestive angina were reported. The blood pressure response to pharmacologic stress was hypertensive. RESTING STUDY: The LV wall thickness is mildly increased (concentric). The qualitative LV ejection fraction is 55-59% (normal). Mild aortic valve sclerosis is present. Aortic stenosis is absent. Dobutamine stress echo report 04/2019: The stress echo is negative for inducible ischemia. There was adequate and appropriate heart rate and blood pressure response to dobutamine stress. No symptoms were noted. The stress EKG response showed no evidence of ischemia. The left ventricular wall motion is normal. The left ventricular wall motion with stress is normal. The left ventricular ejection fraction increases normally with stress. The LV wall thickness is moderately increased (concentric). The qualitative LV ejection fraction is 60-64% (normal). EGD 05/06/2022: Grossly normal esophagus. There was mild pseudomelanosis of the body of the stomach. This was biopsied. The stomach was otherwise normal. A few red spots, possibly AVM's, were seen in the mid jejunum. These were ablated using the closed hot biopsy forceps using soft coag settings. ROS: All others negative other than those noted in the HPI. Patient Active Problem List Diagnosis Code Lyme disease A69.20 Spinal stenosis of lumbar region without neurogenic claudication M48.061 Bilateral lumbar radiculopathy M54.16 Bilateral leg edema R60.0 Gastroesophageal reflux disease without esophagitis K21.9 GUS on CPAP G47.33 Primary insomnia F51.01 Dyslipidemia, goal LDL below 70 E78.5 Morbid (severe) obesity due to excess calories ([facility]) E66.01 Type 2 diabetes mellitus with stage 3b chronic kidney disease, without long-term current use of insulin ([facility]) E11.22, N18.32 Chronic kidney disease, stage 3b ([facility]) N18.32 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 ([facility]) I13.10, N18.32 Numbness R20.0 Atherosclerosis of [place] coronary artery without angina pectoris I25.10 Primary osteoarthritis of left knee M17.12 Vitamin D insufficiency E55.9 Bilateral impacted cerumen H61.23 PSVT (paroxysmal supraventricular tachycardia) I47.10 Iron deficiency anemia due to chronic blood loss D50.0 Risk and functional assessment Z13.9 BEARDEN (dyspnea on exertion) R06.09 ILD (interstitial lung disease) ([facility]) J84.9 Centrilobular emphysema ([facility]) J43.2 Carcinoid tumor D3A.00 COPD, group A, by GOLD 2017 classification ([facility]) J44.9 Social History Tobacco Use Smoking status: Never Smoker Smokeless tobacco: Current User Substance Use Topics Alcohol use: Not on file Drug use: Not on file Review of patient's allergies [...] as needed for pain 150 g 0 Acetaminophen 500 MG Oral Tablet [...] DOSE IN THE MORNING 180 Tablet 1 Isosorbide Mononitrate ER 30 MG Oral Tablet Extended Release 24 Hour (Imdur) TAKE ONE TABLET BY MOUTH IN THE MORNING 90 Tablet 3 Atorvastatin Calcium 40 MG Oral Tablet (Lipitor) TAKE ONE TABLET BY MOUTH EVERY MORNING 90 Tablet 3 tiZANidine HCl 2 MG Oral Tablet (Zanaflex) Take 1 Tablet by mouth at bedtime as needed for Muscle spasms. 90 Tablet 1 Empagliflozin 25 MG Oral Tablet (Jardiance) Take 1 Tablet by mouth in the morning. 100 Tablet 3 Everyware GlobalToFoody Ultra In Vitro Strip USE DIRECTED TWICE DAILY FOR HOME GLUCOSE TESTING 200 Strip 3 Vitamin D (Ergocalciferol) 1.25 MG (28800 UT) Oral Capsule (Drisdol) Take 1 Capsule by mouth every 4 weeks. (Patient not taking: Reported on 09/05/2023) 3 Capsule 1 No current facility-administered medications for this visit. OBJECTIVE/PHYSICAL EXAMINATION: BP 106/54 (BP Site: Left Arm, BP Position: Sitting, BP Cuff Size: Large) | Pulse 60 | Resp 16 | Wt 107.5 kg (237 lb) | BMI 35.00 kg/m | BSA 2.29 m General: NAD, AAO x3, well nourished. Overweight. HEENT: Normocephalic. Atraumatic. Conjunctiva pink, no scleral icterus. No carotid bruits, the carotid upstrokes are brisk. No JVD. No HJR Heart: Regular normal S-1 and S-2 no S-3 or S-4 gallop. No murmurs or rubs appreciated. PMI is not displaced. No RV heave. Lungs: Clear bilateral without rales , rhonchi, or wheeze. Abdomen: Normal bowel sounds. Soft. Nontender. No masses or organomegaly. No abdominal bruits. Extremities: Trace bilateral ankle edema. Pulses: radial=2/4. Neuro: No focal deficits. ASSESSMENT: 1. Hypertensive heart disease - BP controlled with occasional episodes of symptomatic hypotension 2. Dyslipidemia goal less 100mg/dL - controlled 3. Multifactorial chronic bilateral lower extremity edema secondary to dietary indiscretions, excessive sodium intake, diastolic dysfunction, obesity, chronic kidney disease, and venous insufficiency. -stable / controlled 4. Chronic renal insufficiency, CKD stage 3b 5. DM-2 x 12 years: uncontrolled, most recent hemoglobin A1c 9.2% 6. 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 Continue carvedilol, losartan, torsemide, and atorvastatin as ordered. Encouraged patient to make dietary improvements, lose weight, and participate in a regular aerobic exercise program as tolerated. Follow Up: Return in about 6 months (around 03/05/2024). I spent a total of 30-39 minutes (exact time 30 mins) on the date of service in preparation, delivery, and documentation of the care provided to Walker Mancini excluding any time spent in the performance of separately billed services. Sebas Everett DO, [facility] Associate Cardiology - Ras Nugent documented in this encounter Nursing Notes * Katt Langston RN - 09/05/2023 8:04 AM EST Examination Room: 11 Name: Walker Mancini Date of : (1950). Reason for Visit: Follow up Interim Hospitalization(s): No Problems/Concerns: States feeling well, overall from cardiac standpoint. Denies current concerns. Chest Pain/SOB: Denies [facility] Discussed: Yes [facility] is a way you can talk to your provider online through e-mail. Would you like to sign up? I can activate it for you? ALREADY ACTIVE Patient was instructed to not get up on the exam table until directed and assisted by their provider; patient is to remain seated in the chair/ wheelchair/ exam table for fall prevention and safety reasons. Patient is aware to have assistance to step down off exam table with personnel. Patient voiced full comprehension of instructions. documented in this encounter Plan of Treatment Upcoming Encounters Date Type Department Care Team (Late st Contact Info) Description 09/08/2023 8:00 AM EST Pharmacy Pharmacy, [address] [place] [address] Pharmacist1, [facility] [address] [place] [address] 09/08/2023 8:30 AM EST Nutrition Services Nutrition Services [address] [place], [place] [address] [place] [phone] Aydee Barnes RDN 30 [facility] 11 [place] [address] 09/08/2023 9:00 AM EST Office Visit Family Practice [address] [place] [address] [place] [phone] Javy Moscoso DO [address] [place] [phone] 09/08/2023 10:00 AM EST Laboratory Laboratory, [place] [address] [place] [address] [place] [address] [place] [address] 09/15/2023 12:00 PM EST Office Visit Hematology/Oncology [facility] 200 [facility] [place] [address] Katt Mullen CRNP [address] [place] [address] 12/05/2023 9:40 AM EDT Office Visit Nephrology, [facility] 200 [facility] [place] [address] Augusto Lerner MD 200 [facility] [place] [address] 12/12/2023 9:20 AM EDT Telemedicine Pulmonary Medicine, [place] [address] [place] [address] Iván Nielsen MD [address] [place] [address] Cart, Telemed Pulm Gw 132 [facility] [address] 02/16/2024 10:00 AM EDT Office Visit Sleep Disorders Ctr [facility] 132 [facility] [place] [phone] Debby Cornejo DO 132 [facility] [place] [address] Scheduled Orders Name Type Priority Associated Diagnoses Orde r Schedule EKG EKG Routine Atherosclerosis of [place] coronary artery of [place] heart without angina pectoris Ordered: 09/05/2023 Scheduled Procedures Name Priority Associated Diagnoses Date/Ti [...] COPD 03/28/2024 03/28/2023 CKD PHOS USE SMARTSET 44460 05/05/2024 09/0 02/2023, 02/02/2023, 01/11/2022, Additional history exists Depression Screening 06/16/2024 06/16/2023 Diabetic Foot Exam 06/16/2024 06/16/2023, 06/16/2023 CKD HGB USE SMARTSET 39175 08/04/202408/04, 08/04/2023, 07/05/2023, Additional history exists DTaP,Tdap,and [...] as of this encounter Visit Diagnoses Diagnosis Atherosclerosis of [place] coronary artery of [place] heart without angina pectoris- Primary HTN, goal below 140/90 Unspecified essential hypertension Dyslipidemia, goal LDL below 100 Other and unspecified hyperlipidemia Hypertensive heart disease without congestive heart failure Unspecified hypertensive heart disease without heart failure Edema, unspecified type GUS on CPAP Obstructive sleep apnea (adult) (pediatric) Stage 3 chronic kidney disease, unspecified whether stage 3a or 3b CKD (HCC) documented in this encounter Advance Directives [...] the patient have Health Care Power of Clinical Quality Rn? No Care Teams Cell Tower Climber Relationship Specialty Start Date End Date Javy Moscoso DO [address] [place] [address] PCP - General Family Medicine 07/04/23 documented as of this encounter"
--- OUTSIDE RECORDS SUMMARY | 2024-02-25 03:42 | External Medical Summary ---
Author Name Unknown Address Unknown Organization K01:LABORATORY [facility] - [address] [facility] [place] [address] Laboratory Report Ordering Provider Test Date Status [place] ADEN 09/08/2023 10:02:15 Final Observation Date Value Abnormality Reference (Units ) Status BUN 09/08/2023 10:02:15 30 Above high normal 6-20 (mg/dL) Final Creatinine 09/08/2023 10:02:15 1.6 Above high normal 0.6-1.2 (mg/dL) Final Glomerular filtration rate/1.73 sq M.predicted [Volume Rate/Area] in Serum, Plasma or Blood by Creatinine-based formula (CKD-EPI) 09/08/2023 10:02:15 45 Below low normal >=60 (mL/min) Final eGFR is calculated based on the CKD-EPI 2020 equation SODIUM 09/08/2023 10:02:15 140 135-146 (m mol/L) Final Potassium 09/08/2023 10:02:15 4.6 3.5-5.1 (m mol/L) Final Cl 09/08/2023 10:02:15 101 98-107 (mm ol/L) Final CO2 09/08/2023 10:02:15 28 22-32 (mmo l/L) Final Anion gap 09/08/2023 10:02:15 11 7-15 (mmol /L) Final Glucose 09/08/2023 10:02:15 176 Above high normal 70 -120 (mg/dL) Final Albumin 09/08/2023 10:02:15 4.5 3.8-5.0 (g /dL) Final AST (Aspartate aminotransferase) 09/08/2023 10:02:15 22 10-50 (U/L) Fin al Alk Phos 09/08/2023 10:02:15 53 35-130 (U/ L) Final Bilirubin, Total 09/08/2023 10:02:15 0.7 <=1 .2 (mg/dL) Final Calcium 09/08/2023 10:02:15 9.4 8.4-10.2 ( mg/dL) Final Protein 09/08/2023 10:02:15 6.5 6.0-8.3 (g /dL) Final ALT (Alanine aminotransferase) 09/08/2023 10:02:15 30 10-50 (U/L) Adan vences Performing Location LAB[facility]ATORY [facility] - [address] [facility] [address]
--- OUTSIDE RECORDS SUMMARY | 2024-02-25 03:42 | External Medical Summary ---
Author Name Unknown Address Unknown Organization K01:LABORATORY [facility] – [place] - [address] [place] [id number] Laboratory Report Ordering Provider Test Date Status HOUSTON DAEN 09/08/2023 10:02:15 Final Observation Date Value Abnormality Reference (Units ) Status HbA1C 09/08/2023 10:02:15 8.7 Above high normal 4. 0-5.6 (%) Final The use of HbA1c to monitor glycemic status is based on normal hemoglobin and HbA composition. This test should not be used in patients with abnormal hemoglobin that affects the half life of the red blood cell or the in vivo glycation rates. Glucose, estimated average 09/08/2023 10:02:15 203 Above high normal <126 (mg/dL) Adan vences Performing Location LABORATORY [facility] – [place] - [address] [place] [place] [id number]
--- OUTSIDE RECORDS SUMMARY | 2024-02-25 03:42 | External Medical Summary ---
Author Name Unknown Address Unknown Organization K01:[facility] [place] [address] [place] [id number] Laboratory Report Ordering Provider Test Date Status KEIKOHOUSTON 09/08/2023 10:02:15 Final Deficient: <20 ng/mL
Ins ufficient: 20-29 ng/mL
Recommended/Optimum:30-50 ng/mL

Vitamin D intoxication is rare. If suspicious of Vitamin D toxicity, evaluation of serum Calcium and PTH is recommended. Observation Date Value Abnormality Reference (Units ) Status 25-OH Vitamin D total 09/08/2023 10:02:15 25 >19 (ng/mL) Final Performing Location LABORATORY [facility] - [address] [place] [id number]
[2024-02-25 05:52] LABS: Basophils # (auto) 0.04 K/uL (0.00-0.20); Basophils % (auto) 0.7 %; Eosinophils # (auto) 0.11 K/uL (0.00-0.50); Hematocrit (blood only) 24.9 % (42.0-52.0); Hemoglobin 7.5 g/dl (14.0-18.0); Immature Granulocytes # (auto) 0.04 K/uL (0.01-0.20); Immature Granulocytes % (auto) 0.7 %; Lymphocytes # (auto) 0.84 K/uL (1.20-3.40); Lymphocytes % (auto) 15.4 %; Mean Corpuscular Hemoglobin 25.3 pg (25.0-34.0); Mean Corpuscular Hgb Conc 30.1 g/dL (32.0-36.0); Mean Corpuscular Volume 84.1 fL (80.0-100.0); Mean Platelet Volume 12.7 fL (9.4-12.4); Monocytes # (auto) 0.49 K/uL (0.11-0.59); Neutrophils # (auto) 3.94 K/uL (1.40-6.50); Neutrophils % (auto) 72.2 %; Platelet Count 145 K/uL (130-400); RDW Coefficient of Variation 14.7 % (11.5-14.5); RDW Standard Deviation 44.9 fL (36.4-46.3); Red Blood Count 2.96 M/uL (4.70-6.10); White Blood Count 5.46 K/ul (4.8-10.8)
[2024-02-25 06:05] LABS: BUN Creatinine Ratio 18.2 (10-20); Calcium 8.6 mg/dl (8.6-10.3); Creatinine Clr Calc Pharmacy 54.4 ml/min; Est GFR (Non-African American) 46.6 ml/min; Magnesium 2.4 mg/dl (1.7-2.4); Potassium 4.4 mmol/L (3.5-5.1)
[2024-02-25 06:12] LABS: Troponin I High Sensitivity 4.8 pg/ml (0-20)
[2024-02-25 06:21] LABS: Hypochromasia Present; Polychromasia 1+
--- NOTE | 2024-02-25 07:36 | Cardiology Consultation ---
Date of Consultation February 25, 2024 Assessment & Plan (1) Symptomatic anemia: (2) Chest pain: (3) Shortness of breath: (4) Episodic lightheadedness: (5) HTN (hypertension): (6) Hyperlipidemia: Plan Assessment: 74 year-old male known to our cardiology practice presents with s ymptomatic anemia. Endorsed rare atypical chest pain on and off as well as unrelated lightheadedness and dizziness in conjunction of profound anemia. Cardiology referral requested for evaluation Plan: 1. Symptomatic anemia 2. Chest pain 3. Shortness of breath 4. Episodic lightheadedness -Patient is stable from a cardiac perspective at this time. -EKG demonstrates no acute ST-T wave changes and is unchanged from prior EKG outpatient. -Troponin negative -History of a negative DSE dated back to 2021. -Patient reports that his chest pain is twinges intermittent and not associated with other symptoms. Never worse with exertion and have not recurred since time of admission. -patient is noted to be hypertensive this morning prior to AM meds -dyspnea and lightheadedness have resolved. Patient was placed on a Protonix gtt and has been ordered 1 unit PRBCs. HgB currently 7. Continued management per primary team -Review of telemetry demonstrates no ectopy or arrhythmia -Electrolytes stable -Echocardiogram pending to assess overall structure and function -Cautious monitoring of I&O, renal function, electrolytes and fluid status in the setting of a blood transfusion. Goal Serum K> 4.0 and serum Mag > 2.0. -Continue Coreg 25mg twice daily, Losartan 100mg Daily, and Torsemide 20mg Daily. 5. Hypertension -Above target prior to AM medications. Continue Coreg, Losartan and Torsemide as per current schedule. Monitor BP closely. 6. HLD: -Continue Atorvastatin as per current home regimen. Case has been discussed with Dr. Everett. Further recommendations regarding plan of care as per his assessment. I spent a total of 40 minutes on the date of service in preparation, delivery, documentation of the care provided to the patient excluding any time spent in the performance of separately billed services. AUSTIN Mann [facility] Cardiology [facility] Supervising Physician Co-Signing Physician Notes I have personally performed a history and physical examination on the patient. I have reviewed the advance practitioner's documentation, and I agree with, and take responsibility for the plan of care. 74-year-old male presented to the emergency department per direction of hematology. Reports rare episodes of "chest twinges" as well as weakness and dyspnea on exertion. Denies exertional chest discomfort or heaviness. Prior ischemic evaluation (dobutamine stress echo 2021 negative for inducible ischemia). Normal ECG without troponin elevation on admission. Chest discomfort is atypical and not suggestive of angina. I suspect his dyspnea and lightheadedness secondary to symptomatic anemia. Further evaluation as per internal medicine. Review resting 2D transthoracic echocardiogram when available. No further inpatient cardiac testing or intervention recommended at this time. Thank you for allowing us to participate in the care of your patient. I spent a total of 35 minutes on the date of service in preparation, delivery, and documentation of the care provided to this patient, excluding any time spent in the performance of separately billed services. History of Present Illness Reason for Consultation: Chest pain, BEARDEN Requesting Physician: Stephanie wynn Attending Physician: Da Rider MD History of Present Illness 02/25/2024: Patient is a 74 year-old male with PMHx as stated below that presented to the ED with "symptomatic anemia". 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 He was see recently by his PCP with complaints of black stools, but also endorsed intermittent palpitations and lightheadedness with some "on and off chest pains and dyspnea on exertion". OP labs demonstrated a HgB of 6.8 and he was advised to present to the ED. 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 Had colonoscopy in November 2022 which showed 6mm polyp in the ascending colon and 4mmpolyp in the transverse colon and 3 mm polyp in the rectum which were removed. Pathology showed tubular adenoma of the ascending and transverse colon. 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 PMHx: 1.HTN 2. Hypertensive heart disease 3. Dyslipidemia 4. DM Type II 5. COPD 6. GUS on CPAP 7. CKD Stage III 8. GERD 9. NIRALI 10. GERD 11. Vitamid D def. 12. OA 13. Hx of Lyme Disease 14. Spinal stenosis EKG NSR Rate 71bpm H/H on admission 7.524.9 BUN/Cr 27/1.48 Trop negative x 3 Echo pending Telemetry demonstrates SR rates 60-70's. No acute events overnight Patient is currently resting comfortably in bed without complaint. Denies any c hest pain, pressure, palpitations, no shortness of breath, PND, pre-syncope or syncope since admission. He states that he was dyspneic and had some lightheadedness at the time of admission, and while he has not been active in the room, he denies any recurrence Allergies Allergy/AdvReac Type Severity Reaction Status Date / Time lisinopril AdvReac Severe ARNOLDO, Verified 02/24/24 22:40 hyperkalemia, ARF - PT DENIES verapamil AdvReac Severe "SHUT HIS Verified 02/24/24 22:40 HEART DOWN" Home Medications Medication Instructions Recorded Confirmed Type acetaminophen 500 mg tablet 500 - 1,000 mg PO Q6 PRN 03/09/22 02/24/24 History pain/fevers carvedilol 25 mg tablet 25 mg PO BID 03/09/22 02/24/24 History gabapentin 100 mg capsule 100 mg PO QAM 03/09/22 02/24/24 History gabapentin 600 mg tablet 600 mg PO BID 03/09/22 02/24/24 History losartan 100 mg tablet 100 mg PO QAM 03/09/22 02/24/24 History torsemide 20 mg tablet 20 mg PO QAM 03/09/22 02/24/24 History ergocalciferol (vitamin D2) 1,250 50,000 unit PO MONTHLY 11/30/22 02/24/24 History mcg (50,000 unit) capsule tizanidine 2 mg tablet 2 mg PO HS MUSCLE SPASMS 11/30/22 02/24/24 History octreotide acetate 100 mcg/mL 50 mcg (0.5 mL) subcut BID #0 mL 12/02/22 02/24/24 Rx injection solution atorvastatin 40 mg tablet 40 mg PO QAM 02/24/24 02/24/24 History cyanocobalamin (vitamin B-12) 2,500 mcg sublingual DAILY 02/24/24 02/24/24 History 2,500 mcg sublingual tablet (Vitamin B-12) empagliflozin 25 mg tablet 25 mg PO QAM 02/24/24 02/24/24 History (Jardiance) fluticasone propionate 50 2 spray intranasal QAM 02/24/24 02/24/24 History mcg/actuation nasal spray,suspension insulin glargine 100 unit/mL (3 60 unit subcut HS 02/24/24 02/24/24 History mL) subcutaneous pen (Lantus Solostar U-100 Insulin) metformin 500 mg tablet,extended 500 mg PO HS 02/24/24 02/24/24 History release 24 hr pantoprazole 40 mg tablet,delayed 40 mg PO QAM 02/24/24 02/24/24 History release triamcinolone acetonide 0.5 % 1 applic topical DIRECTED PRN 02/24/24 02/24/24 History topical cream .flare ups Patient History Medical History Arthritis of spine CAN'T WALK LONG LENGTHS/ HAS TO SIT AND REST CKD (chronic kidney disease) STAGE 3, follows with Nephrology [facility] h/p ARNOLDO 2018 COPD (chronic obstructive pulmonary disease) Diabetes mellitus, type 2 NIDDM GERD (gastroesophageal reflux disease) controlled Hx of colonic polyp Hyperlipidemia Hypertension Insomnia Numbness and tingling left arm and leg intermittently at random, no blurred vision or facial drooping. --> treated at [facility] through the emergency room per direction of PCP. patient had no diagnosis at that time. [facility] neuro suspects cervical radiculopathy-pt refused further testing or physical therapy Obesity Poor historian Restless leg syndrome Sleep apnea CPAP Surgical History History of cardiac cath 10 YEARS AGO - [facility] - NO STENTS/ANGIOPLASTY History of cataract surgery RT/LEFT History of colonoscopy History of discectomy LUMBAR History of left knee replacement History of open reduction and internal fixation (ORIF) procedure left shoulder with hardware. History of right knee joint replacement 05/22/2019 [facility] History of tooth extraction Hx of vasectomy Family History Mother Family history of diabetes mellitus Grandmother (Maternal) Family history of diabetes mellitus Father Family history of stomach cancer Other No family history of adverse response to anesthesia Denies family history of Myocardial infarction Stroke Social History Smoking Status: Former smoker Tobacco Type: Smokeless Tobacco (Dip or Chew) Second Hand Exposure: No; Do You Dip or Chew Tobacco: No; Hx Alcohol Use: Yes Alcohol type: beer Hx Substance Use: No Preferred Language: Tajik Communication Ability: Effective Communication Ability Comment: PT YAVAPAI-[place], PT GLADIS DOES PHONE INTERVIEW School Administrator Required: No Beliefs That Will Affect Care: None marital status: Current Living Situation: Spouse Other Information That Helps Us Care for You: No Feels Safe at Home: Yes Safety Concerns: Feels Safe At This Time Assistive Devices: Denture - Upper, Denture - Lower and Glasses Review of Systems Review of Systems: All systems reviewed & are unremarkable except as noted in HPI & below Physical Exam Constitutional: well developed and well nourished; no acute distress and not ill appearing Neck: normal visual inspection and trachea midline Respiratory: normal respiratory effort, lungs clear to auscultation no cough Auscultation: lungs clear to auscultation bilaterally; no diminished lung sounds, no crackles, no rales, no rhonchi and no wheezes Cardiovascular: Rate/Rhythm: regular rate and regular rhythm Heart Sounds: normal S1, normal S2 and + murmur (+1/6 systolic ) Vessels: no JVD Extremities: no edema Skin: no rashes, warm and dry Psychiatric: A+Ox3, euthymic affect Results & Data Vital Signs (Past 12 Hours) Vital Signs Temp Pulse Pulse Resp BP BP BP 02/25/24 04:16 36.6 C 72 18 153/76 H 02/25/24 01:35 36.7 C 72 18 165/74 H 02/25/24 00:35 36.7 C 71 19 166/76 H 02/24/24 23:46 68 02/24/24 23:46 02/24/24 23:46 36.6 C 68 16 171/79 H 02/24/24 23:35 36.6 C 68 171/79 H 02/24/24 23:05 36.5 C 76 18 147/81 H 02/24/24 22:50 36.6 C 80 14 156/82 H 02/24/24 22:35 36.6 C 73 16 146/67 H 02/24/24 21:18 69 02/24/24 20:27 36.6 C 72 19 151/75 H Pulse Ox O2 Del Method 02/25/24 04:16 97 Room Air 02/25/24 01:35 98 02/25/24 00:35 02/24/24 23:46 02/24/24 23:46 Room Air 02/24/24 23:46 98 Room Air 02/24/24 23:35 98 02/24/24 23:05 95 02/24/24 22:50 93 02/24/24 22:35 95 02/24/24 21:18 02/24/24 20:27 96 Room Air Laboratory Results Cardiac Enzymes 02/24/24 02/25/24 Range/Units 20:47 05:11 AST 14 (13-39) U/L Troponin I High Sens 4.7 4.8 (0-20) pg/ml Coagulation 02/24/24 Range/Units 20:47 PT 10.9 (9.0-12.0) Seconds APTT 26 (21-31) Seconds CBC 02/24/24 02/25/24 Range/Units 20:47 05:11 WBC 5.03 5.46 (4.8-10.8) K/ul RBC 2.76 L 2.96 L (4.70-6.10) M/uL Hgb 7.0 L 7.5 L (14.0-18.0) g/dl Hct 23.3 L 24.9 L (42.0-52.0) % Plt Count 171 145 (130-400) K/uL Neut # (Auto) 3.94 (1.40-6.50) K/uL Lymph # (Auto) 0.84 L (1.20-3.40) K/uL [place] # (Auto) 0.49 (0.11-0.59) K/uL Eos # (Auto) 0.11 (0.00-0.50) K/uL Baso # (Auto) 0.04 (0.00-0.20) K/uL Comprehensive Metabolic Panel 02/24/24 02/25/24 Range/Units 20:47 05:11 Sodium 136 142 (136-145) mmol/L Potassium 4.2 4.4 (3.5-5.1) mmol/L Chloride 101 107 (98-107) mmol/L Carbon Dioxide 30 28 (21-32) mmol/L BUN 30 H 27 H (6-23) mg/dl Creatinine 1.71 H 1.48 H (0.6-1.4) mg/dl Glucose 265 H 192 H (70-99(Fasting)) mg/dl Calcium 8.4 L 8.6 (8.6-10.3) mg/dl AST 14 (13-39) U/L ALT 16 (7-52) U/L Alkaline Phosphatase 43 (34-104) U/L Total Protein 6.3 (6.0-8.3) gm/dl Albumin 4.1 (3.4-5.0) gm/dl Intake and Output 02/24/24 02/25/24 02/25/24 22:59 06:59 14:59 Intake Total 120 / 632.667 512.667 / 632.667 Output Total 250 / 250 850 / 850 Balance -130 / 382.667 512.667 / 382.667 -850 / -850 Intake: IV 120 / 293.667 173.667 / 293.667 PANTOprazole 40 mg In Dextrose 173.667 / 173.667 5% Mini-B 100 ml @ 8 MG/HR 20 mls/hr IV Q5H [facility] Rx#:[id number] PANTOprazole 80 mg In Dextrose 120 / 120 5% 100 ml @ 480 mls/hr IV NOW ONE Rx#:[id number] Oral 50 / 50 Intake (Blood Product) Amt 0 / 289 289 / 289 Packed Cells, Leukoreduced 0 / 289 289 / 289 Unit [id number] Output: Urine 250 / 250 850 / 850 Other: Weight 108.6 kg 106.9 kg Weight Measurement Method Chair Scale Built in [facility] (2) Chest pain Chest pain type: unspecified Qualified Code(s): R07.9 - Chest pain, unspecified
[2024-02-25 08:46] LABS: Estimated Average Glucose 157 mg/dl; Hemoglobin A1C 7.1 % (4.5-5.6)
[2024-02-25] MEDS ORDERED: SODIUM CHLORIDE 0.9% 250 ML IV PRN (09:08)
[2024-02-25] MEDS: CYANOCOBALAMIN (B-12) 2,500 MCG TABLET SL SCH (09:49)
[2024-02-25] MEDS: ATORVASTATIN 40 MG TAB PO SCH (09:49)
[2024-02-25] MEDS: GABAPENTIN 100 MG CAP PO SCH (09:49)
[2024-02-25] MEDS: carvediloL 25 MG TAB PO SCH (09:49)
[2024-02-25] MEDS: TORSEMIDE 20 MG TAB PO SCH (09:50)
[2024-02-25] MEDS: LOSARTAN POTASSIUM 50 MG TAB PO SCH (09:50)
[2024-02-25] MEDS: FLUTICASONE PROPIONATE NA SPR 16 GM BTL SCH (09:50)
[2024-02-25] MEDS: OCTREOTIDE ACETATE 100 MCG/ML VIAL SQ SCH (09:50)
--- NOTE | 2024-02-25 10:11 | Gastrointestinal Consultation ---
Date of Consultation February 25, 2024 Assessment & Plan (1) Symptomatic anemia: Pleasant gentleman with chronic anemia felt to be related to blood loss. He does NOT have acute GI bleeding as he is not passing any blood. He does need EGD and colonoscopy and is scheduled for this in March. I would transfuse him and let him go home. He can arrange to move his procedures up with [facility] as they don't need to be done emergently as he is not having an active GI bleed, this is a chronic problem. History of Present Illness Reason for Consultation: anemia Attending Physician: Da Rider MD History of Present Illness 74 year old man with symptomatic anemia, admitted with hgb 7.0. Patient has history of recurrent anemia and has had multiple EGD's and colonoscopies in the past most recent last year. He gets these done through [facility]. Apparently had a small carcinoid tumor removed from his rectum and is due for repeat EGD and colonoscopy in March of this year. 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 He was not having any GI issues on admit. He says his bowel movements are normal in color without seeing any black or red stools. He denies heartburn or indigestion. He has not vomited any blood. Allergies Allergy/AdvReac Type Severity Reaction Status Date / Time lisinopril AdvReac Severe ARNOLDO, Verified 02/24/24 22:40 hyperkalemia, ARF - PT DENIES verapamil AdvReac Severe "SHUT HIS Verified 02/24/24 22:40 HEART DOWN" Home Medications Medication Instructions Recorded Confirmed Type acetaminophen 500 mg tablet 500 - 1,000 mg PO Q6 PRN 03/09/22 02/24/24 History pain/fevers carvedilol 25 mg tablet 25 mg PO BID 03/09/22 02/24/24 History gabapentin 100 mg capsule 100 mg PO QAM 03/09/22 02/24/24 History gabapentin 600 mg tablet 600 mg PO BID 03/09/22 02/24/24 History losartan 100 mg tablet 100 mg PO QAM 03/09/22 02/24/24 History torsemide 20 mg tablet 20 mg PO QAM 03/09/22 02/24/24 History ergocalciferol (vitamin D2) 1,250 50,000 unit PO MONTHLY 11/30/22 02/24/24 History mcg (50,000 unit) capsule tizanidine 2 mg tablet 2 mg PO HS MUSCLE SPASMS 11/30/22 02/24/24 History octreotide acetate 100 mcg/mL 50 mcg (0.5 mL) subcut BID #0 mL 12/02/22 02/24/24 Rx injection solution atorvastatin 40 mg tablet 40 mg PO QAM 02/24/24 02/24/24 History cyanocobalamin (vitamin B-12) 2,500 mcg sublingual DAILY 02/24/24 02/24/24 History 2,500 mcg sublingual tablet (Vitamin B-12) empagliflozin 25 mg tablet 25 mg PO QAM 02/24/24 02/24/24 History (Jardiance) fluticasone propionate 50 2 spray intranasal QAM 02/24/24 02/24/24 History mcg/actuation nasal spray,suspension insulin glargine 100 unit/mL (3 60 unit subcut HS 02/24/24 02/24/24 History mL) subcutaneous pen (Lantus Solostar U-100 Insulin) metformin 500 mg tablet,extended 500 mg PO HS 02/24/24 02/24/24 History release 24 hr pantoprazole 40 mg tablet,delayed 40 mg PO QAM 02/24/24 02/24/24 History release triamcinolone acetonide 0.5 % 1 applic topical DIRECTED PRN 02/24/24 02/24/24 History topical cream .flare ups Patient History Medical History Poor historian COPD (chronic obstructive pulmonary disease) Numbness and tingling left arm and leg intermittently at random, no blurred vision or facial drooping. --> treated at [facility] through the emergency room per direction of PCP. patient had no diagnosis at that time. [facility] neuro suspects cervical radiculopathy-pt refused further testing or physical therapy Hx of colonic polyp Arthritis of spine CAN'T WALK LONG LENGTHS/ HAS TO SIT AND REST CKD (chronic kidney disease) STAGE 3, follows with Nephrology [facility] Екатерина Avila h/p ARNOLDO 2018 Obesity GERD (gastroesophageal reflux disease) controlled Diabetes mellitus, type 2 NIDDM Restless leg syndrome Insomnia Hypertension Hyperlipidemia Sleep apnea CPAP Surgical History History of open reduction and internal fixation (ORIF) procedure left shoulder with hardware. History of left knee replacement History of cardiac cath 10 YEARS AGO - [facility] - NO STENTS/ANGIOPLASTY History of right knee joint replacement 05/22/2019 [facility] History of discectomy LUMBAR Hx of vasectomy History of colonoscopy History of tooth extraction History of cataract surgery RT/LEFT Family History Mother Family history of diabetes mellitus Grandmother (Maternal) Family history of diabetes mellitus Father Family history of stomach cancer Other No family history of adverse response to anesthesia Denies family history of Myocardial infarction Stroke Social History Smoking Status: Former smoker Tobacco Type: Smokeless Tobacco (Dip or Chew) Second Hand Exposure: No; Do You Dip or Chew Tobacco: No; Hx Alcohol Use: Yes Alcohol type: beer Hx Substance Use: No Preferred Language: Israeli Communication Ability: Effective Communication Ability Comment: PT MASHPEE, PT GLDAIS DOES PHONE INTERVIEW House Servant Required: No Beliefs That Will Affect Care: None marital status: Current Living Situation: Spouse Other Information That Helps Us Care for You: No Feels Safe at Home: Yes Safety Concerns: Feels Safe At This Time Assistive Devices: Denture - Upper, Denture - Lower and Glasses Review of Systems Review of Systems: All systems reviewed & are unremarkable except as noted in HPI & below Physical Exam Constitutional: WD/WN, vitals as above Neck: trachea midline, no thyromegaly Respiratory: normal respiratory effort, lungs clear to auscultation Cardiovascular: RRR, no murmur, no edema Gastrointestinal (Abdomen): normal bowel sounds, soft, nontender, no hepatosplenomegaly Results & Data Vital Signs (Past 12 Hours) Vital Signs Temp Pulse Pulse Resp BP BP BP 02/25/24 09:43 67 02/25/24 07:31 36.7 C 80 18 153/73 H 02/25/24 07:00 67 02/25/24 04:16 36.6 C 72 18 153/76 H 02/25/24 01:35 36.7 C 72 18 165/74 H 02/25/24 00:35 36.7 C 71 19 166/76 H 02/24/24 23:46 68 02/24/24 23:46 02/24/24 23:46 36.6 C 68 16 171/79 H 02/24/24 23:35 36.6 C 68 171/79 H 02/24/24 23:05 36.5 C 76 18 147/81 H 02/24/24 22:50 36.6 C 80 14 156/82 H 02/24/24 22:35 36.6 C 73 16 146/67 H Pulse Ox O2 Del Method 02/25/24 09:43 02/25/24 07:31 97 Room Air 02/25/24 07:00 02/25/24 04:16 97 Room Air 02/25/24 01:35 98 02/25/24 00:35 02/24/24 23:46 02/24/24 23:46 Room Air 02/24/24 23:46 98 Room Air 02/24/24 23:35 98 02/24/24 23:05 95 02/24/24 22:50 93 02/24/24 22:35 95 Laboratory Results 02/25/24 02/25/24 02/24/24 Range/Units 05:11 00:02 20:47 WBC 5.46 5.03 (4.8-10.8) K/ul RBC 2.96 L 2.76 L (4.70-6.10) M/uL Hgb 7.5 L 7.0 L (14.0-18.0) g/dl Hct 24.9 L 23.3 L (42.0-52.0) % MCV 84.1 84.4 (80.0-100.0) fL MCH 25.3 25.4 (25.0-34.0) pg MCHC 30.1 L 30.0 L (32.0-36.0) g/dL RDW Std Deviation 44.9 46.1 (36.4-46.3) fL RDW Coeff of Arvin 14.7 H 15.0 H (11.5-14.5) % Plt Count 145 171 (130-400) K/uL MPV 12.7 H 12.4 (9.4-12.4) fL Immature Gran % (Auto) 0.7 % Neut % (Auto) 72.2 % Lymph % (Auto) 15.4 % [place] % (Auto) 9.0 % Eos % (Auto) 2.0 % Baso % (Auto) 0.7 % Neut # (Auto) 3.94 (1.40-6.50) K/uL Lymph # (Auto) 0.84 L (1.20-3.40) K/uL [place] # (Auto) 0.49 (0.11-0.59) K/uL Eos # (Auto) 0.11 (0.00-0.50) K/uL Baso # (Auto) 0.04 (0.00-0.20) K/uL Immature Gran # (Auto) 0.04 (0.01-0.20) K/uL Polychromasia 1+ Hypochromasia Present PT 10.9 (9.0-12.0) Seconds INR 1.0 (0.9-1.1) APTT 26 (21-31) Seconds PTT Ratio 1.0 Sodium 142 136 (136-145) mmol/L Potassium 4.4 4.2 (3.5-5.1) mmol/L Chloride 107 101 (98-107) mmol/L Carbon Dioxide 28 30 (21-32) mmol/L Anion Gap 7 5 (3-11) BUN 27 H 30 H (6-23) mg/dl Creatinine 1.48 H 1.71 H (0.6-1.4) mg/dl Est Cr Clr Drug Dosing 54.4 46.7 ml/min Est GFR ( Amer) 54.0 45.4 ml/min Est GFR (Non-Af Amer) 46.6 39.1 ml/min BUN/Creatinine Ratio 18.2 17.5 (10-20) Glucose 192 H 265 H (70-99(Fasting)) mg/dl POC Glucose 284 H (70-99) mg/dl Estimat Average Glucose 157 mg/dl Hemoglobin A1c 7.1 H (4.5-5.6) % Calcium 8.6 8.4 L (8.6-10.3) mg/dl Magnesium 2.4 (1.7-2.4) mg/dl Total Bilirubin 0.4 (0.2-1.0) mg/dl AST 14 (13-39) U/L ALT 16 (7-52) U/L Alkaline Phosphatase 43 (34-104) U/L Troponin I High Sens 4.8 4.7 (0-20) pg/ml Total Protein 6.3 (6.0-8.3) gm/dl Albumin 4.1 (3.4-5.0) gm/dl Globulin 2.2 L (2.5-4.0) gm/dl Albumin/Globulin Ratio 1.9 (0.9-2) Blood Type O Positive Antibody Screen NEGATIVE Crossmatch See Detail
[2024-02-25] MEDS: ACETAMINOPHEN 325 MG TAB PO ONE (10:38)
[2024-02-25] MEDS: GABAPENTIN 600 MG TAB PO SCH (12:32)
--- NOTE | 2024-02-25 16:41 | Hospitalist Progress Note ---
Date of Service February 25, 2024 Assessment & Plan (1) Symptomatic anemia: Plan: Per admitting service notes with addendum: 74-year-old male with past medical history significant for type 2 diabetes, hyperlipidemia, COPD, obstructive sleep apnea, on CPAP, chronic kidney disease stage III, history of CAD, GERD, morbid obesity, vitamin D deficiency, osteoarthritis, bilateral leg edema, bilateral lumbar radiculopathy, history of Lyme disease, spinal stenosis, primary insomnia, who presents with symptomatic anemia. 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 Patient states he sometimes notices black stools. Denies blood in the stools. No hematuria. Resting comfortably and hemodynamic stable. Currently denies any headache. No blurred vision or double visions. No runny nose or sore throat. No cough.Appetite is good. No difficulty swallowing. No fevers. No nausea. Currently no abdominal pain. 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 Had colonoscopy in November 2022 which showed 6mm polyp in the ascending colon and 4mm polyp in the transverse colon and 3 mm polyp in the rectum which were removed. Pathology showed tubular adenoma of the ascending and transverse colon. 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 Symptomatic anemia chest pains on and off. Shortness of exertion on and off. Lightheadedness. Hemoglobin 7. ER ordered 1 unit of PRBCs. 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 Er started on Protonix drip which will be continued. Continue home octreotide. Follow H&H. N.p.o., IV fluids telemetry GI consult in a.m. for further recommendations. 02/24 Repeat hemoglobin 7.5 1 unit packed RBCs ordered Repeat hemoglobin 8.2 Monitor closely Check anemia panel GI consulted-no plans for EGD or colonoscopy at this point Close follow-up as an outpatient Chest pains on and off. Troponin negative. Will follow serial cardiac enzymes and echo. Cardiac consult in a.m. Troponins x 2 negative EKG no signs of ischemia or infarct Echocardiogram pending Cardiology consulted Heart rate noted to be in the 50s, sometimes 40s Heart carvedilol Monitor close Chronic lower extremity edema. Possible chronic diastolic dysfunction. And obesity and CKD. On torsemide which will be continued. Hyperlipidemia on statin diabetes currently NPO. Will hold p.o. medications. Cut back on Lantus to 30 units nightly . Sliding scale will follow blood sugars and HbA1c levels. History of CAD. On beta-addison and statin. Hypertension. On Coreg and losartan. Hold Coreg in light of bradycardia next Obstructive sleep apnea. CPAP nightly. CKD stage III. Presented with creatinine 1.7 and seems to be around baseline renal cyst. Found on last admission. CAT scan When stable. DVT prophylaxis SCDs. Disposition pending Admission and Anticipated Discharge Date Admission Date: February 24, 2024 Subjective Follow-up for anemia, etc. Seen resting in bed, sleeping but easily awakened Comfortable, not in distress States he feels fine overall No shortness of breath, chest pain, palpitation, dizziness, abdominal pain No nausea vomiting No BM so far since admission No other new symptoms Review of Systems Review of Systems: all noted and negative except for above Physical Exam Physical Exam: General- oriented x 3, not in distress, speaks in sentences with no effort or accessory muscle use Eyes- anicteric Neck- no JVD Lungs- clear breath sounds bilaterally, no rales/wheezes Heart- normal rate, regular rhythm; no murmurs Abdomen- normal bowel sounds, nondistended, soft, nontender Extremities- no pretibial edema, no calf tenderness Neuro- alert, oriented x 3; no gross focal neurologic deficits Skin- warm & dry Results & Data Results & Data Vital Signs (Past 12 Hours) Vital Signs Temp Pulse Pulse Resp BP BP Pulse Ox 02/25/24 15:16 36.7 C 58 L 18 152/70 H 98 02/25/24 15:13 70 02/25/24 13:03 36.8 C 60 18 119/55 L 94 02/25/24 12:28 36.6 C 62 18 139/81 98 02/25/24 11:28 36.6 C 60 18 134/51 L 97 02/25/24 10:58 36.6 C 61 18 149/85 H 95 02/25/24 10:43 36.4 C L 66 18 151/84 H 95 02/25/24 10:27 36.8 C 66 18 151/76 H 96 02/25/24 09:43 67 02/25/24 07:31 36.7 C 80 18 153/73 H 97 02/25/24 07:00 67 O2 Del Method 02/25/24 15:16 Room Air 02/25/24 15:13 02/25/24 13:03 02/25/24 12:28 02/25/24 11:28 02/25/24 10:58 02/25/24 10:43 02/25/24 10:27 02/25/24 09:43 02/25/24 07:31 Room Air 02/25/24 07:00 all noted and reviewed including below
[2024-02-25 16:43] LABS: Hemoglobin 8.2 g/dl (14.0-18.0)
--- NOTE | 2024-02-25 17:40 | Electrocardiogram Report ---
Test Reason : Blood Pressure : / mmHG Vent. Rate : 075 BPM Atrial Rate : 075 BPM P-R Int : 140 ms QRS Dur : 072 ms QT Int : 388 ms P-R-T Axes : 062 050 060 degrees QTc Int : 433 ms Normal sinus rhythm Normal ECG When compared with ECG of 27-DEC-2022 19:32, No significant change was found Confirmed by Luis Austin ([id number]) on 02/25/2024 5:40:11 PM Referred By: Javy Moscoso Confirmed By:Luis Austin
--- NOTE | 2024-02-25 18:14 | Electrocardiogram Report ---
Test Reason : Blood Pressure : / mmHG Vent. Rate : 071 BPM Atrial Rate : 071 BPM P-R Int : 144 ms QRS Dur : 086 ms QT Int : 388 ms P-R-T Axes : 072 043 044 degrees QTc Int : 421 ms Normal sinus rhythm Normal ECG When compared with ECG of 24-FEB-2024 20:46, No significant change was found Confirmed by Luis Austin ([id number]) on 02/25/2024 6:13:41 PM Referred By: Javy Moscoso Confirmed By:Luis Austin
[2024-02-25 20:21] LABS: Hematocrit (blood only) 27.5 % (42.0-52.0); Hemoglobin 8.3 g/dl (14.0-18.0)
[2024-02-25] MEDS: tiZANidine HCL 4 MG TABLET PO SCH (21:32)
[2024-02-25] MEDS: LANTUS PER UNIT CHARGE SQ SCH (21:34)
[2024-02-26] MEDS ORDERED: Nursing to Pharmacy Communication SCH (01:00)
--- NOTE | 2024-02-26 07:42 | Electrocardiogram Report ---
Test Reason : Blood Pressure : / mmHG Vent. Rate : 054 BPM Atrial Rate : 054 BPM P-R Int : 160 ms QRS Dur : 084 ms QT Int : 430 ms P-R-T Axes : 053 050 047 degrees QTc Int : 407 ms Sinus bradycardia Otherwise normal ECG When compared with ECG of 25-FEB-2024 06:35, No significant change was found Confirmed by Luis Austin ([id number]) on 02/26/2024 7:41:49 AM Referred By: Javy Moscoso Confirmed By:Luis Austin
[2024-02-26] MEDS: INSULIN ASPART PER UNIT CHARGE SC SCH (08:09)
[2024-02-26 08:37] LABS: Basophils # (auto) 0.04 K/uL (0.00-0.20); Basophils % (auto) 0.7 %; Eosinophils # (auto) 0.18 K/uL (0.00-0.50); Eosinophils % (auto) 3.3 %; Hematocrit (blood only) 26.7 % (42.0-52.0); Immature Granulocytes # (auto) 0.01 K/uL (0.01-0.20); Immature Granulocytes % (auto) 0.2 %; Lymphocytes # (auto) 0.98 K/uL (1.20-3.40); Lymphocytes % (auto) 18.1 %; Mean Corpuscular Hemoglobin 25.5 pg (25.0-34.0); Mean Platelet Volume 12.6 fL (9.4-12.4); Monocytes # (auto) 0.65 K/uL (0.11-0.59); Neutrophils # (auto) 3.56 K/uL (1.40-6.50); Neutrophils % (auto) 65.7 %; Platelet Count 134 K/uL (130-400); RDW Coefficient of Variation 14.9 % (11.5-14.5); RDW Standard Deviation 46.4 fL (36.4-46.3); Red Blood Count 3.14 M/uL (4.70-6.10); White Blood Count 5.42 K/ul (4.8-10.8)
[2024-02-26 08:47] LABS: BUN Creatinine Ratio 16.1 (10-20); Calcium 8.2 mg/dl (8.6-10.3); Creatinine Clr Calc Pharmacy 58.9 ml/min; Est GFR (African American) 59.3 ml/min; Est GFR (Non-African American) 51.2 ml/min; Potassium 4.4 mmol/L (3.5-5.1)
--- NOTE | 2024-02-26 08:57 | Gastroenterology Progress Note ---
Date of Service February 26, 2024 Assessment & Plan (1) Symptomatic anemia: Plan: He seems to be doing well. Plans for outpatient EGD and colonoscopy. Will sign off. Please call if GI services needed. Admission and Anticipated Discharge Date Admission Date: February 24, 2024 Subjective Patient feels well. Says he is not having blood in stool. H/H stable. attempted to call [facility] yesterday to move up procedures but since it was Tuesday she will have to wait until tomorrow Results & Data Vital Signs (Past 12 Hours) Vital Signs Temp Pulse Pulse Resp BP BP Pulse Ox 02/26/24 07:21 36.6 C 55 L 19 159/79 H 96 02/26/24 07:12 65 02/26/24 04:04 36.6 C 610 H 18 142/76 H 94 02/25/24 23:56 36.5 C 65 18 136/81 93 02/25/24 21:48 75 O2 Del Method 02/26/24 07:21 Room Air 02/26/24 07:12 02/26/24 04:04 Room Air 02/25/24 23:56 Room Air 02/25/24 21:48
--- NOTE | 2024-02-26 13:20 | Hospitalist Progress Note ---
Date of Service February 26, 2024 Assessment & Plan (1) GI bleed: (2) Symptomatic anemia: Plan: (1) Symptomatic anemia: Plan: Per admitting service notes with addendum: 74-year-old male with past medical history significant for type 2 diabetes, hyperlipidemia, COPD, obstructive sleep apnea, on CPAP, chronic kidney disease stage III, history of CAD, GERD, morbid obesity, vitamin D deficiency, osteoarthritis, bilateral leg edema, bilateral lumbar radiculopathy, history of Lyme disease, spinal stenosis, primary insomnia, who presents with symptomatic anemia. 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 Patient states he sometimes notices black stools. Denies blood in the stools. No hematuria. Resting comfortably and hemodynamic stable. Currently denies any headache. No blurred vision or double visions. No runny nose or sore throat. No cough.Appetite is good. No difficulty swallowing. No fevers. No nausea. Currently no abdominal pain. 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 Had colonoscopy in November 2022 which showed 6mm polyp in the ascending colon and 4mm polyp in the transverse colon and 3 mm polyp in the rectum which were removed. Pathology showed tubular adenoma of the ascending and transverse colon. 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 Symptomatic anemia chest pains on and off. Shortness of exertion on and off. Lightheadedness. Hemoglobin 7. ER ordered 1 unit of PRBCs. 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 Er started on Protonix drip which will be continued. Continue home octreotide. Follow H&H. N.p.o., IV fluids telemetry GI consult in a.m. for further recommendations. 02/24 Repeat hemoglobin 7.5 1 unit packed RBCs ordered Repeat hemoglobin 8.2 Monitor closely Check anemia panel GI consulted-no plans for EGD or colonoscopy at this point Close follow-up as an outpatient 02/25 Repeat hemoglobin 8.0, stable No recurrence of GI bleed Outpatient EGD and colonoscopy as per GI Monitor CBC closely as an outpatient Chest pain, Acute Coronary Syndrome Ruled out Troponins x 2 negative EKG no signs of ischemia or infarct Echocardiogram: Left ventricular systolic function normal, left-ventricular ejection fraction 66 5%, mild concentric LVH Grade 1 diastolic dysfunction Cardiology consulted: No further cardiac testing at this point Sinus bradycardia Heart rate noted to be mostly in the 50s At one point 40s Patient asymptomatic Decrease carvedilol to 12.5 mg p.o. twice daily Monitor heart rate as an outpatient Chronic lower extremity edema. Possible chronic diastolic dysfunction. And obesity and CKD. continue Torsemide Hyperlipidemia on statin Diabetes a1c 7.1 continue usual meds History of CAD. Hypertension. Decrease carvedilol to 12.5 mg p.o. twice daily Obstructive sleep apnea. CPAP nightly. CKD stage III. Presented with creatinine 1.7 and seems to be around baseline renal cyst. -Renal USD:Multiple bilateral renal cysts, including a 13.1 cm right lower pole cyst. Evaluation of the 2.1 cm hypodense lesion within the upper pole of the left kidney is difficult given multiplicity of cysts. This favors a hyperdense cyst. A solid renal lesion cannot be completely excluded. Nonemergent renal protocol CT is recommended. -Follow up as outpatient -Advised to follow-up with urology as outpatient DVT prophylaxis SCDs. Disposition d/c home PCP in 1 week GI in 1-2 weeks Admission and Anticipated Discharge Date Admission Date: February 24, 2024 Subjective Follow-up for anemia, etc. Seen resting, sitting in bed, comfortable, not in distress Patient's at the bedside visiting States he feels fine overall Denies dizziness, chest pain, shortness of breath No abdominal pain, nausea vomiting, melena hematochezia No other symptoms States he is ready for discharge today Review of Systems Review of Systems: all noted and negative except for above Physical Exam Physical Exam: General- oriented x 3, not in distress, speaks in sentences with no effort or accessory muscle use Eyes- anicteric Neck- no JVD Lungs- clear breath sounds bilaterally, no rales/wheezes Heart- normal rate, regular rhythm; no murmurs Abdomen- normal bowel sounds, nondistended, soft, nontender Extremities- no pretibial edema, no calf tenderness Neuro- alert, oriented x 3; no gross focal neurologic deficits Skin- warm & dry Results & Data Results & Data Vital Signs (Past 12 Hours) Vital Signs Temp Pulse Pulse Resp BP BP Pulse Ox 02/26/24 12:58 36.6 C 60 20 161/76 H 95 02/26/24 09:26 58 L 02/26/24 07:21 36.6 C 55 L 19 159/79 H 96 02/26/24 07:12 65 02/26/24 04:04 36.6 C 610 H 18 142/76 H 94 O2 Del Method 02/26/24 12:58 Room Air 02/26/24 09:26 02/26/24 07:21 Room Air 02/26/24 07:12 02/26/24 04:04 Room Air all noted and reviewed including below (1) GI bleed GI bleed type/associated pathology: unspecified gastrointestinal hemorrhage type Qualified Code(s): K92.2 - Gastrointestinal hemorrhage, unspecified
--- NOTE | 2024-02-26 13:52 | Discharge Summary ---
Discharge Summary Date of Service February 26, 2024 Principal Dx & Hospital Course #1 = Principal Diagnosis (1) GI bleed: (2) Symptomatic anemia: (1) Symptomatic anemia: Plan: Per admitting service notes with addendum: 74-year-old male with past medical history significant for type 2 diabetes, hyperlipidemia, COPD, obstructive sleep apnea, on CPAP, chronic kidney disease stage III, history of CAD, GERD, morbid obesity, vitamin D deficiency, osteoarthritis, bilateral leg edema, bilateral lumbar radiculopathy, history of Lyme disease, spinal stenosis, primary insomnia, who presents with symptomatic anemia. 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 Patient states he sometimes notices black stools. Denies blood in the stools. No hematuria. Resting comfortably and hemodynamic stable. Currently denies any headache. No blurred vision or double visions. No runny nose or sore throat. No cough.Appetite is good. No difficulty swallowing. No fevers. No nausea. Currently no abdominal pain. 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 Had colonoscopy in November 2022 which showed 6mm polyp in the ascending colon and 4mm polyp in the transverse colon and 3 mm polyp in the rectum which were removed. Pathology showed tubular adenoma of the ascending and transverse colon. 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 Symptomatic anemia chest pains on and off. Shortness of exertion on and off. Lightheadedness. Hemoglobin 7. ER ordered 1 unit of PRBCs. 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 Er started on Protonix drip which will be continued. 02/24 Repeat hemoglobin 7.5 additional 1 unit packed RBCs ordered Repeat hemoglobin 8.2 anemia panel: Fe, Folate pending check Vit b12 as outpatient GI consulted-no plans for EGD or colonoscopy at this point Close follow-up as an outpatient 02/25 Repeat hemoglobin 8.0, stable No recurrence of GI bleed Outpatient EGD and colonoscopy as per GI Monitor CBC closely as an outpatient Chest pain, Acute Coronary Syndrome Ruled out Troponins x 2 negative EKG no signs of ischemia or infarct Echocardiogram: Left ventricular systolic function normal, left-ventricular ejection fraction 66 5%, mild concentric LVH Grade 1 diastolic dysfunction Cardiology consulted: No further cardiac testing at this point Sinus bradycardia Heart rate noted to be mostly in the 50s At one point 40s Patient asymptomatic Decrease carvedilol to 12.5 mg p.o. twice daily Monitor heart rate as an outpatient Chronic lower extremity edema. Possible chronic diastolic dysfunction. And obesity and CKD. continue Torsemide Hyperlipidemia on statin Diabetes a1c 7.1 continue usual meds History of CAD. Hypertension. Decrease carvedilol to 12.5 mg p.o. twice daily Start amlodipine 5 mg p.o. daily for better BP control Obstructive sleep apnea. CPAP nightly. CKD stage III. Presented with creatinine 1.7 and seems to be around baseline renal cyst. -Renal USD:Multiple bilateral renal cysts, including a 13.1 cm right lower pole cyst. Evaluation of the 2.1 cm hypodense lesion within the upper pole of the left kidney is difficult given multiplicity of cysts. This favors a hyperdense cyst. A solid renal lesion cannot be completely excluded. Nonemergent renal protocol CT is recommended. -Follow up as outpatient -Advised to follow-up with urology as outpatient DVT prophylaxis SCDs. Disposition d/c home PCP in 1 week GI in 1-2 weeks Notes For Next Care Provider Medication Changes From Visit Carvedilol decreased from 25 mg p.o. twice daily to 12.5 mg p.o. twice daily Amlodipine 5 mg p.o daily started Admission HPI Per Admitting Provider 74-year-old male with past medical history significant for type 2 diabetes, hyperlipidemia, COPD, obstructive sleep apnea, on CPAP, chronic kidney disease stage III, history of CAD, GERD, morbid obesity, vitamin D deficiency, osteoarthritis, bilateral leg edema, bilateral lumbar radiculopathy, history of Lyme disease, spinal stenosis, primary insomnia, who presents with symptomatic anemia. 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 Patient states he sometimes notices black stools. Denies blood in the stools. No hematuria. Resting comfortably and hemodynamic stable. Currently denies any headache. No blurred vision or double visions. No runny nose or sore throat. No cough.Appetite is good. No difficulty swallowing. No fevers. No nausea. Currently no abdominal pain. 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 Had colonoscopy in November 2022 which showed 6mm polyp in the ascending colon and 4mm polyp in the transverse colon and 3 mm polyp in the rectum which were removed. Pathology showed tubular adenoma of the ascending and transverse colon. 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 past medical history. As mentioned above. Past surgical history. Colonoscopy. EGD. Injection of lumbosacral spine. Small bowel endoscopy. Social history. . Smoked 1 pack a day for 20 years. Alcohol monthly. No drug use. Family history. Brother had kidney cancer. father had stomach cancer. Daughter has thyroid disorder. Admission Exam Per Admitting Provider General- Not in distress Head- atraumatic Eyes- PERRL. ENT- oropharynx clear Neck- supple, no JVD. Lungs- clear to auscultation no wheezing or crackles. Heart- regular rate and rhythm; no murmur, no gallop. Abdomen- normal bowel sounds, soft, nontender, no distension. Extremities- pretibial edema present, no erythema seen. Neuro- alert, oriented PERRL, no facial palsy; no dysarthria; moves extremities. Discharge Exam General- oriented x 3, not in distress, speaks in sentences with no effort or accessory muscle use Eyes- anicteric Neck- no JVD Lungs- clear breath sounds bilaterally, no rales/wheezes Heart- normal rate, regular rhythm; no murmurs Abdomen- normal bowel sounds, nondistended, soft, nontender Extremities- no pretibial edema, no calf tenderness Neuro- alert, oriented x 3; no gross focal neurologic deficits Skin- warm & dry Updated Medication List Medication Instructions Recorded Confirmed Type acetaminophen 500 mg tablet 500 - 1,000 mg PO Q6 PRN 03/09/22 02/24/24 History pain/fevers carvedilol 25 mg tablet 25 mg PO BID 03/09/22 02/24/24 History gabapentin 100 mg capsule 100 mg PO QAM 03/09/22 02/24/24 History gabapentin 600 mg tablet 600 mg PO BID 03/09/22 02/24/24 History losartan 100 mg tablet 100 mg PO QAM 03/09/22 02/24/24 History torsemide 20 mg tablet 20 mg PO QAM 03/09/22 02/24/24 History ergocalciferol (vitamin D2) 1,250 50,000 unit PO MONTHLY 11/30/22 02/24/24 History mcg (50,000 unit) capsule tizanidine 2 mg tablet 2 mg PO HS MUSCLE SPASMS 11/30/22 02/24/24 History octreotide acetate 100 mcg/mL 50 mcg (0.5 mL) subcut BID #0 mL 12/02/22 02/24/24 Rx injection solution atorvastatin 40 mg tablet 40 mg PO QAM 02/24/24 02/24/24 History cyanocobalamin (vitamin B-12) 2,500 mcg sublingual DAILY 02/24/24 02/24/24 History 2,500 mcg sublingual tablet (Vitamin B-12) empagliflozin 25 mg tablet 25 mg PO QAM 02/24/24 02/24/24 History (Jardiance) fluticasone propionate 50 2 spray intranasal QA 02/24/24 02/24/24 History mcg/actuation nasal spray,suspension insulin glargine 100 unit/mL (3 60 unit subcut HS 02/24/24 02/24/24 History mL) subcutaneous pen (Lantus Solostar U-100 Insulin) metformin 500 mg tablet,extended 500 mg PO HS 02/24/24 02/24/24 History release 24 hr pantoprazole 40 mg tablet,delayed 40 mg PO QAM 02/24/24 02/24/24 History release triamcinolone acetonide 0.5 % 1 applic topical DIRECTED PRN 02/24/24 02/24/24 History topical cream .flare ups Hospital Stay Data Consultations 02/24/24 21:27 ED Decision to Admit Stat 02/25/24 08:00 Consult Cardiology Routine Consult Gastroenterology Routine Pending Results Patient Have Any Pending Studies at Discharge: No Discharge Instructions Given to Patient (Per Discharging Provider) PLEASE REFER TO YOUR NEW MEDICATION LIST AND FOLLOW INSTRUCTIONS CAREFULLY. YOUR NEW MEDICATIONS INCLUDE: Decrease carvedilol to 12.5 mg p.o. twice daily Start amlodipine 5 mg p.o. daily PLEASE CALL YOUR PRIMARY CARE PHYSICIAN OR RETURN TO THE ER IF WITH WORSENING OF SYMPTOMS, INCLUDING Chest pain, shortness of breath, palpitations, dizziness Abdominal pain, nausea vomiting, black or bloody stools, etc. FOLLOW UP WITH PRIMARY CARE PHYSICIAN In 1 week. Follow-up with [facility] of [facility] in 1 to 2 weeks. The clinic will be calling you for the appointment. Total Time Total Time Spent Total Time Spent (In Minutes): 45 minutes
--- NOTE | 2024-02-26 14:22 | Electrocardiogram Report ---
Test Reason : Blood Pressure : / mmHG Vent. Rate : 059 BPM Atrial Rate : 059 BPM P-R Int : 142 ms QRS Dur : 084 ms QT Int : 432 ms P-R-T Axes : 066 052 049 degrees QTc Int : 427 ms Sinus bradycardia with sinus arrhythmia Otherwise normal ECG When compared with ECG of 25-FEB-2024 16:04, No significant change was found Confirmed by Luis Austin ([id number]) on 02/26/2024 2:21:53 PM Referred By: Javy Moscoso Confirmed By:Luis Austin
[2024-02-26] MEDS: carvediloL 12.5 MG TAB PO SCH (14:40)
[2024-02-26] MEDS: IRON SUCROSE 300 MG in SODIUM CHLORIDE 0.9% 250 ML IV ONE (15:38)
== END 2024-02-26 18:01 | disposition home or self-care (01) | DRG 379 ==
LOC: ED 20:24 → 2S 22:18

== ENCOUNTER 2024-11-02 16:33 | Inpatient (IN) ==
[2024-11-02 17:36] LABS: Basophils # (auto) 0.06 K/uL (0.00-0.20); Basophils % (auto) 0.8 %; Eosinophils # (auto) 0.07 K/uL (0.00-0.50); Eosinophils % (auto) 0.9 %; Hematocrit (blood only) 26.6 % (42.0-52.0); Immature Granulocytes # (auto) 0.05 K/uL (0.01-0.20); Immature Granulocytes % (auto) 0.6 %; Lymphocytes # (auto) 0.92 K/uL (1.20-3.40); Lymphocytes % (auto) 11.7 %; Mean Corpuscular Hemoglobin 30.8 pg (25.0-34.0); Mean Corpuscular Hgb Conc 30.1 g/dL (32.0-36.0); Mean Corpuscular Volume 102.3 fL (80.0-100.0); Mean Platelet Volume 12.8 fL (9.4-12.4); Monocytes # (auto) 0.59 K/uL (0.11-0.59); Monocytes % (auto) 7.5 %; Neutrophils # (auto) 6.17 K/uL (1.40-6.50); Neutrophils % (auto) 78.5 %; Platelet Count 196 K/uL (130-400); RDW Coefficient of Variation 15.9 % (11.5-14.5); RDW Standard Deviation 58.2 fL (36.4-46.3); White Blood Count 7.86 K/ul (4.8-10.8)
[2024-11-02 17:55] LABS: Alanine Aminotransferase 21 U/L (7-52); Albumin Globulin Ratio 1.9 (0.9-2); Albumin Level 3.8 gm/dl (3.4-5.0); Alkaline Phosphatase 39 U/L (34-104); Anion Gap 7 (3-11); Aspartate Aminotransferase 19 U/L (13-39); BUN Creatinine Ratio 29.3 (10-20); Bilirubin,Total 0.4 mg/dl (0.2-1.0); Blood Urea Nitrogen 54 mg/dl (6-23); Calcium 8.4 mg/dl (8.6-10.3); Carbon Dioxide 29 mmol/L (21-32); Chloride 104 mmol/L (98-107); Creatinine Clr Calc Pharmacy 43.8 ml/min; Glucose 145 mg/dl (70-99(Fasting)); Lipase 71 U/L (11-82); Potassium 4.2 mmol/L (3.5-5.1); Sodium 140 mmol/L (136-145); Total Protein 5.8 gm/dl (6.0-8.3)
--- NOTE | 2024-11-02 18:02 | Emergency Department Note ---
Impression & Plan Symptomatic anemia, GI bleed ED Provider Note Provider: Dickson Hull MD CHIEF COMPLAINT: Low blood counts, dyspnea on exertion, exertional chest pain HISTORY OF PRESENT ILLNESS: Patient is a 74-year-old gentleman history of CKD, GUS, diabetes, anemia, GI bleed with small bowel AVMs presenting here today referred by outpatient doctor. Seen at that [facility] yesterday. Had complaining of the past week ability of dyspnea on exertion exertional chest discomfort. Has chronic blackish stools. Has been feeling generally weak and unwell. Had blood work completed yesterday called today due to low blood counts. Does do octreotide twice daily injections. No chest pain at rest. Little bit lightheaded again and gets short of breath with exertion. No significant abdominal pain. Outpatient blood work from yesterday shows a hemoglobin 8.5. Creatinine of 2.0. PAST MEDICAL HISTORY: As noted above MEDICATIONS: Reviewed home medications no aspirin anticoagulants. SOCIAL HISTORY: PHYSICAL EXAM: GENERAL: alert and oriented in no acute distress on stretcher Head: normocephalic and atraumatic EYES: No injection, discharge or icterus. NECK: Trachea midline. ENT: Mucous membranes pink and moist. LUNGS: Airway patent. No retractions. Breath sounds clear HEART: Regular rate and rhythm. No chest wall tenderness ABDOMEN: Soft and non-tender, without guarding or rebound. SKIN: Acyanotic, warm, dry, without rashes EXTREMITIES: Without swelling, tenderness or deformity NEUROLOGICAL: No focal deficits. No aphasia. No facial droop or slurred speech. Ambulatory. EK bpm. Normal sinus rhythm. No PVC or PAC with a bit of baseline artifact. No acute ST segment elevation or depression QTc 450. CONTINUOUS CARDIAC MONITORING: was ordered and showed a heart rate of 70s to 80s bpm in normal sinus rhythm Patient's laboratory studies and imaging reviewed. Differential includes Diverticulosis, AVM, coagulopathy, colitis, inflammatory bowel disease, malignancy, Jeri-Mcclain tear, esophagitis, peptic ulcer disease, variceal bleed, gastritis, epistaxis, fissure, hemorrhoids, as well as other pathologies. IMPRESSION/MEDICAL DECISION MAKING: Patient history of recurrent GI bleeds related to AVMs. Is on octreotide subcutaneous twice daily. No significant abdominal pain. Symptomatic anemia with some dyspnea on exertion and exertional chest discomfort. EKG without evidence of STEMI. Given dose of Protonix here. Hemoglobin 8.5 yesterday. 8.0 here consented for blood and given his symptomatic nature 1 unit of packed red blood cells ordered. No severe electrolyte abnormality or transaminitis or evidence of pancreatitis based on labs noted. Troponin and iron panel as well as ferritin to be completed. Troponin not elevated. Iron low normal. No vomiting or bloody stools and seems consistent likely with his recurrence of his underlying AVM type GI bleed. Will support symptomatically and with Protonix drip. Will bring in for further observation. Discussed with the hospitalist team. DIAGNOSIS: Symptomatic anemia, GI bleed DISPOSITION: Hospitalist will evaluate Patient was agreeable with this plan. Critical Care I have personally spent 32 minutes of critical care time in the direct management of this patient. This includes bedside care, interpretation of diagnostic studies, and testing, discussion with consultants, patient, and family members, and other required patient management activities. These 32 minutes is in excess of all separately billable procedures. Past Med/Surg History Problem List (Updated 11/02/24 @ 19:43 by Dickson Hull M.D.) Symptomatic anemia (Acute) Episodic lightheadedness (Acute) Shortness of breath (Acute) Chest pain (Acute) Acute GI bleeding (Acute) Symptomatic anemia (Acute) Symptomatic anemia (Acute) GI bleed (Acute) Renal cyst (Acute) CKD (chronic kidney disease) stage 3, GFR 30-59 ml/min (Acute) Encounter for pre-operative examination Degenerative joint disease of knee, right ARF (acute renal failure) GUS (obstructive sleep apnea) Tobacco use disorder Hyperlipidemia HTN (hypertension) GERD (gastroesophageal reflux disease) DVT prophylaxis DM type 2 (diabetes mellitus, type 2) Degenerative joint disease of left knee Encounter for pre-operative examination Anemia Medical History Poor historian COPD (chronic obstructive pulmonary disease) Numbness and tingling left arm and leg intermittently at random, no blurred vision or facial drooping. --> treated at [facility] through the emergency room per direction of PCP. patient had no diagnosis at that time. [facility] neuro suspects cervical radiculopathy-pt refused further testing or physical therapy Hx of colonic polyp Arthritis of spine CAN'T WALK LONG LENGTHS/ HAS TO SIT AND REST CKD (chronic kidney disease) STAGE 3, follows with Nephrology [facility] Екатерина Avila h/p ARNOLDO 2018 Obesity GERD (gastroesophageal reflux disease) controlled Diabetes mellitus, type 2 NIDDM Restless leg syndrome Insomnia Hypertension Hyperlipidemia Sleep apnea CPAP Surgical History History of open reduction and internal fixation (ORIF) procedure left shoulder with hardware. History of left knee replacement History of cardiac cath 10 YEARS AGO - [facility] - NO STENTS/ANGIOPLASTY History of right knee joint replacement 05/22/2019 [facility] History of discectomy LUMBAR Hx of vasectomy History of colonoscopy History of tooth extraction History of cataract surgery RT/LEFT Family History Mother Family history of diabetes mellitus Grandmother (Maternal) Family history of diabetes mellitus Father Family history of stomach cancer Other No family history of adverse response to anesthesia Denies family history of Myocardial infarction Stroke Social History Smoking Status: Former smoker Tobacco Type: Cigarettes Second Hand Exposure: No; Do You Dip or Chew Tobacco: No; Hx Alcohol Use: Yes Alcohol type: beer Hx Substance Use: No Preferred Language: Yakut Communication Ability: Effective Communication Ability Comment: PT EMMONAK, PT GLADIS DOES PHONE INTERVIEW Foundation Stage Teacher Required: No Beliefs That Will Affect Care: None marital status: Current Living Situation: Spouse Feels Safe at Home: Yes Assistive Devices: Denture - Upper, Denture - Lower and Glasses Allergies Allergies Allergy/AdvReac Type Severity Reaction Status Date / Time lisinopril AdvReac Severe ARNOLDO, Verified 11/02/24 18:58 hyperkalemia, ARF - PT DENIES verapamil AdvReac Severe "SHUT HIS Verified 11/02/24 18:58 HEART DOWN" Home Meds Home Medications Medication Instructions Recorded Confirmed acetaminophen 500 mg tablet 500 - 1,000 mg PO Q6 PRN 03/09/22 11/02/24 pain/fevers gabapentin 600 mg tablet 600 mg PO BID 03/09/22 11/02/24 losartan 100 mg tablet 100 mg PO QAM 03/09/22 11/02/24 torsemide 20 mg tablet 20 mg PO QAM 03/09/22 11/02/24 tizanidine 2 mg tablet 2 mg PO HS MUSCLE SPASMS 11/30/22 11/02/24 atorvastatin 40 mg tablet 40 mg PO QA 02/24/24 11/02/24 cyanocobalamin (vitamin B-12) 2,500 mcg sublingual DAILY 02/24/24 11/02/24 2,500 mcg sublingual tablet (Vitamin B-12) empagliflozin 25 mg tablet 25 mg PO QA 02/24/24 11/02/24 (Jardiance) fluticasone propionate 50 2 spray intranasal QA 02/24/24 11/02/24 mcg/actuation nasal spray,suspension metformin 500 mg tablet,extended 500 mg PO HS 02/24/24 11/02/24 release 24 hr pantoprazole 40 mg tablet,delayed 40 mg PO [facility] 02/24/24 11/02/24 release triamcinolone acetonide 0.5 % 1 applic topical DIRECTED PRN 02/24/24 11/02/24 topical cream Flare gabapentin 300 mg capsule 300 mg PO [facility] 11/02/24 11/02/24 insulin degludec 100 40 unit subcut QPM 11/02/24 11/02/24 unit-liraglutide 3.6 mg/mL(3 mL) subcutaneous pen (Xultophy 100/3.6) Previous Rx's Medication Instructions Recorded carvedilol 25 mg tablet 12.5 mg (1/2 x 25 mg) PO BID #0 02/26/24 tabs ferrous sulfate 325 mg (65 mg 325 mg PO BID #60 tabs 02/26/24 iron) tablet Results & Data (ED) Vital Signs Vital Signs - 24 hr 11/02/24 16:44 11/02/24 17:39 11/02/24 17:42 Temperature 36.5 C Temperature Source Temporal Artery Scan Pulse Rate 73 79 Pulse Rate [Apical] 76 Pulse Rate from SpO2 Sensor Respiratory Rate 16 20 Respiratory Effort / Characteristics Non-Labored Spontaneous Non-Labored Respiratory Depth Normal Normal Blood Pressure 136/79 Blood Pressure [Right Arm] 154/83 H Blood Pressure Mean 98 Blood Pressure Mean [Right Arm] 106 Pulse Oximetry 98 97 Oxygen Delivery Method Room Air Room Air Sepsis Recent Fever Within 48 Hours No Sepsis New/Unexplained Change in Mental Status No Sepsis Action Taken by Nursing No Action Required 11/02/24 17:51 11/02/24 18:00 11/02/24 18:00 Temperature Temperature Source Pulse Rate 73 77 Pulse Rate [Apical] Pulse Rate from SpO2 Sensor 72 75 Respiratory Rate 19 14 Respiratory Effort / Characteristics Respiratory Depth Blood Pressure 135/68 Blood Pressure [Right Arm] Blood Pressure Mean 99 Blood Pressure Mean [Right Arm] Pulse Oximetry 97 96 Oxygen Delivery Method Sepsis Recent Fever Within 48 Hours Sepsis New/Unexplained Change in Mental Status Sepsis Action Taken by Nursing 11/02/24 18:22 11/02/24 19:13 11/02/24 19:30 Temperature 36.5 C 36.6 C Temperature Source Oral Oral Pulse Rate 75 71 Pulse Rate [Apical] 75 Pulse Rate from SpO2 Sensor Respiratory Rate 20 16 18 Respiratory Effort / Characteristics Non-Labored Respiratory Depth Normal Blood Pressure 137/63 114/61 Blood Pressure [Right Arm] 135/68 Blood Pressure Mean 87 78 Blood Pressure Mean [Right Arm] 90 Pulse Oximetry 95 97 97 Oxygen Delivery Method Room Air Sepsis Recent Fever Within 48 Hours Sepsis New/Unexplained Change in Mental Status Sepsis Action Taken by Nursing Laboratory Data 11/02/24 17:15 11/02/24 17:15 Lab Results 11/02/24 Range/Units 17:15 WBC 7.86 (4.8-10.8) K/ul RBC 2.60 L (4.70-6.10) M/uL Hgb 8.0 L (14.0-18.0) g/dl Hct 26.6 L (42.0-52.0) % MCV 102.3 H (80.0-100.0) fL MCH 30.8 (25.0-34.0) pg MCHC 30.1 L (32.0-36.0) g/dL RDW Std Deviation 58.2 H (36.4-46.3) fL RDW Coeff of Arvin 15.9 H (11.5-14.5) % Plt Count 196 (130-400) K/uL MPV 12.8 H (9.4-12.4) fL Immature Gran % (Auto) 0.6 % Neut % (Auto) 78.5 % Lymph % (Auto) 11.7 % [place] % (Auto) 7.5 % Eos % (Auto) 0.9 % Baso % (Auto) 0.8 % Neut # (Auto) 6.17 (1.40-6.50) K/uL Lymph # (Auto) 0.92 L (1.20-3.40) K/uL [place] # (Auto) 0.59 (0.11-0.59) K/uL Eos # (Auto) 0.07 (0.00-0.50) K/uL Baso # (Auto) 0.06 (0.00-0.20) K/uL Immature Gran # (Auto) 0.05 (0.01-0.20) K/uL Sodium 140 (136-145) mmol/L Potassium 4.2 (3.5-5.1) mmol/L Chloride 104 (98-107) mmol/L Carbon Dioxide 29 (21-32) mmol/L Anion Gap 7 (3-11) BUN 54 H (6-23) mg/dl Creatinine 1.84 H (0.6-1.4) mg/dl Est Cr Clr Drug Dosing 43.8 ml/min eGFR 38.47 BUN/Creatinine Ratio 29.3 H (10-20) Glucose 145 H (70-99(Fasting)) mg/dl Calcium 8.4 L (8.6-10.3) mg/dl Iron 55 (35-175) mcg/dl TIBC 342 (250-450) mcg/dl Transferrin 244 (200-360) mg/dl Transferrin % Sat 16 L (20-50) % Ferritin 33.7 (8-388) ng/ml Total Bilirubin 0.4 (0.2-1.0) mg/dl AST 19 (13-39) U/L ALT 21 (7-52) U/L Alkaline Phosphatase 39 (34-104) U/L Troponin I High Sens < 2.3 (0-20) pg/ml Total Protein 5.8 L (6.0-8.3) gm/dl Albumin 3.8 (3.4-5.0) gm/dl Globulin 2.0 L (2.5-4.0) gm/dl Albumin/Globulin Ratio 1.9 (0.9-2) Lipase 71 (11-82) U/L Blood Type O Positive Antibody Screen NEGATIVE Crossmatch See Detail Administered Medications Pantoprazole Sodium 40 mg/ (Dextrose) 100 mls @ 20 mls/hr IV Q5H MCKENZIE Stop: 12/02/24 18:29 Last Admin: 11/02/24 19:07 Dose: 8 mg/hr, 20 mls/hr Documented By: WILVER Discontinued Medications Pantoprazole Sodium 80 mg/ (Dextrose) 120 mls @ 480 mls/hr IV NOW ONE Stop: 11/02/24 18:14 Last Infusion: 11/02/24 18:59 Dose: Infused Documented By: Admin: 11/02/24 18:40 Dose: 480 mls/hr Documented By: WILVER Pantoprazole Sodium (Pantoprazole Bolus/Drip) 1 each IV NOW STA Stop: 11/02/24 18:01 Last Admin: 11/02/24 19:41 Dose: Not Given Documented By: ROBERT Discharge Plan Visit Data Chief Complaint: Referred by Doctor Stated Complaint: BLOOD LOSS, REF BY DOC ED Provider: Dickson Hull Discharge Problem: Symptomatic anemia, GI bleed Patient Disposition: Admitted As Inpatient Forms Stand Alone Forms: My [facility] Prescriptions Prescriptions: No Action torsemide 20 mg Tablet 20 mg PO QAM acetaminophen 500 mg tablet 500 - 1,000 mg PO Q6 PRN (Reason: pain/fevers) losartan 100 mg Tablet 100 mg PO QAM gabapentin 600 mg Tablet 600 mg PO BID Rx Instructions: TAKES AT NOON & HS tizanidine 2 mg tablet 2 mg PO HS Rx Instructions: PER EXT MED HX--MAY TAKE BID IF NEEDED. PER PT "USUALLY TAKE AT HS". gabapentin 300 mg capsule 300 mg PO QAM Xultophy 100/3.6 100 unit-3.6 mg /mL (3 mL) insulin pen 40 unit SUBCUT QPM atorvastatin 40 mg tablet 40 mg PO QAM cyanocobalamin (vitamin B-12) [Vitamin B-12] 2,500 mcg Tablet, Sublingual 2,500 mcg SUBLINGUAL DAILY Rx Instructions: Unable to verify OTC meds at this date/time. triamcinolone acetonide 0.5 % cream 1 applic TOPICAL DIRECTED PRN (Reason: Flare) fluticasone propionate 50 mcg/actuation spray,suspension 2 spray INTRANASAL QAM metformin 500 mg tablet extended release 24 hr 500 mg PO HS Jardiance 25 mg tablet 25 mg PO QAM pantoprazole 40 mg tablet,delayed release (DR/EC) 40 mg PO QAM carvedilol 25 mg Tablet 12.5 mg PO BID Qty: 0 0RF ferrous sulfate 325 mg (65 mg iron) tablet 325 mg PO BID Qty: 60 1RF Rx Instructions: Unable to verify OTC meds at this date/time. Referrals Referrals: Javy Moscoso DO [Primary Care Provider] -
[2024-11-02] MEDS ORDERED: SODIUM CHLORIDE 0.9% 50 ML IV PRN (18:08)
[2024-11-02] MEDS ORDERED: SODIUM CHLORIDE 0.9% 100 ML IV PRN (18:08)
[2024-11-02 18:25] LABS: Iron 55 mcg/dl (35-175); Total Iron Binding Cap Calc 342 mcg/dl (250-450); Transferrin 244 mg/dl (200-360); Transferrin (FE) Percent Satur 16 % (20-50)
[2024-11-02 18:32] LABS: Troponin I High Sensitivity < 2.3 pg/ml (0-20)
[2024-11-02] MEDS: PANTOprazole 80 MG in DEXTROSE 5% 100 ML IV ONE (18:40)
--- NOTE | 2024-11-02 18:41 | History & Physical Report ---
Date of Service November 02, 2024 Assessment & Plan (1) Symptomatic anemia: (2) GI bleed: Plan: #History colonic AVM #Acute on chronic anemia #History Iron defiency anemia Patient is 74-year-old male with PMH DM II, CKD III, chronic iron deficiency anemia, small bowel AVMs, PSVT, CAD, HLD presented to ER with c/o SOB, worse with exertion, dizziness x 1 week. In ER afebrile, vitals stable Hgb: 8.0. Was 8.5 on 11/01/24 and Hgb: 14 on 09/14/2024 05/03/2024 colonoscopy: Diverticulosis in sigmoid colon, polyps in ascending colon and sigmoid colon were resected. Internal hemorrhoids 05/03/2024: Small bowel enteroscopy: Normal esophagus. Congestive gastropathy. Biopsied. Normal duodenal bulb. Examined portion of jejunum was normal In ER started on Protonix bolus and drip In ER typed and crossed PRBCs. 1 unit PRBC transfusion ordered H&H Q6H Hold home oral pantoprazole as is currently on IV Protonix Continue home octreotide NPO GI consult (3) DM type 2 (diabetes mellitus, type 2): Plan: A1c: 6.9 on 08/03/25 Will hold patient's home metformin, Jardiance, insulin, GLP-1. Since n.p.o. will cover with correction factor novolog currently. Will likely need adjusted (4) CKD (chronic kidney disease) stage 3, GFR 30-59 ml/min: Plan: Cr: 1.8. Was 2.0 on 11/01/24 and 1.8 on 09/14/2024 Monitor renal functions (5) HTN (hypertension): Plan: Hold home losartan, torsemide and reassess tomorrow. Continue carvedilol with holding parameters (6) Hyperlipidemia: Plan: Continue atorvastatin (7) GUS (obstructive sleep apnea): Plan: CPAP HS DVT Prophylaxis SCDs Admit med tele Full Code as per discussion with pt Follows with Dr Moscoso for routine care Pt was seen and care coordinated with Dr Rider. See addendum I spent a total of 77 minutes reviewing notes, outpatient records, labs, medication, coordinating, documenting and providing care for this patient excluding time spent in the performance of separately billed services and excluding time spent by another provider/QHP. History of Present Illness Chief Complaint: Dark stools, exertional SOB Primary Care Provider: Javy Moscoso DO Patient is 74-year-old male with PMH DM II, CKD III, chronic iron deficiency anemia, small bowel AVMs, PSVT, CAD, HLD presented to ER with c/o SOB, worse with exertion, dizziness x 1 week. Per outpatient chart review patient seen at PCPs office yesterday 11/01/2024 with complaint of shortness of breath, dizziness, palpitations, black stools. On 11/01/24 had Hgb: 8.5 (Was 14 on 09/14/2024). Patient states has chronic black stools. Follows with [facility] and is on ferrous sulfate, octreotide twice daily. Last scopes were in 04/2024. Patient states was getting every 6 months but was suggested to do yearly since he was doing well. States last IV iron was couple of months ago. Denies fever/chills, diaphoresis, N/V/D/C, ESPINOZA, syncope, vision changes, neck pain, cough, sore throat, rhinorrhea, abdominal pain, paresthesias, extremity weakness, extremity edema, rashes, urinary symptoms. Allergies Allergy/AdvReac Type Severity Reaction Status Date / Time lisinopril AdvReac Severe ARNOLDO, Verified 11/02/24 18:58 hyperkalemia, ARF - PT DENIES verapamil AdvReac Severe "SHUT HIS Verified 11/02/24 18:58 HEART DOWN" Home Medications Medication Instructions Recorded Confirmed Type acetaminophen 500 mg tablet 500 - 1,000 mg PO Q6 PRN 03/09/22 11/02/24 History pain/fevers gabapentin 600 mg tablet 600 mg PO BID 03/09/22 11/02/24 History losartan 100 mg tablet 100 mg PO QAM 03/09/22 11/02/24 History torsemide 20 mg tablet 20 mg PO QAM 03/09/22 11/02/24 History tizanidine 2 mg tablet 2 mg PO HS MUSCLE SPASMS 11/30/22 11/02/24 History atorvastatin 40 mg tablet 40 mg PO QAM 02/24/24 11/02/24 History cyanocobalamin (vitamin B-12) 2,500 mcg sublingual DAILY 02/24/24 11/02/24 History 2,500 mcg sublingual tablet (Vitamin B-12) empagliflozin 25 mg tablet 25 mg PO QAM 02/24/24 11/02/24 History (Jardiance) fluticasone propionate 50 2 spray intranasal QAM 02/24/24 11/02/24 History mcg/actuation nasal spray,suspension metformin 500 mg tablet,extended 500 mg PO HS 02/24/24 11/02/24 History release 24 hr pantoprazole 40 mg tablet,delayed 40 mg PO QAM 02/24/24 11/02/24 History release triamcinolone acetonide 0.5 % 1 applic topical DIRECTED PRN 02/24/24 11/02/24 History topical cream Flare carvedilol 25 mg tablet 12.5 mg (1/2 x 25 mg) PO BID #0 02/26/24 11/02/24 Rx tabs ferrous sulfate 325 mg (65 mg 325 mg PO BID #60 tabs 02/26/24 11/02/24 Rx iron) tablet gabapentin 300 mg capsule 300 mg PO QAM 11/02/24 11/02/24 History insulin degludec 100 40 unit subcut QPM 11/02/24 11/02/24 History unit-liraglutide 3.6 mg/mL(3 mL) subcutaneous pen (Xultophy 100/3.6) octreotide acetate 50 mcg/mL (1 50 mcg subcut BID 11/02/24 11/02/24 History mL) injection syringe Past Med/Surg History Problem List Symptomatic anemia (Acute) Episodic lightheadedness (Acute) Shortness of breath (Acute) Chest pain (Acute) Acute GI bleeding (Acute) Symptomatic anemia (Acute) Symptomatic anemia (Acute) GI bleed (Acute) Renal cyst (Acute) CKD (chronic kidney disease) stage 3, GFR 30-59 ml/min (Acute) Encounter for pre-operative examination Degenerative joint disease of knee, right ARF (acute renal failure) GUS (obstructive sleep apnea) Tobacco use disorder Hyperlipidemia HTN (hypertension) GERD (gastroesophageal reflux disease) DVT prophylaxis DM type 2 (diabetes mellitus, type 2) Degenerative joint disease of left knee Encounter for pre-operative examination Anemia Medical History Poor historian COPD (chronic obstructive pulmonary disease) Numbness and tingling left arm and leg intermittently at random, no blurred vision or facial drooping. --> treated at [facility] through the emergency room per direction of PCP. patient had no diagnosis at that time. [facility] neuro suspects cervical radiculopathy-pt refused further testing or physical therapy Hx of colonic polyp Arthritis of spine CAN'T WALK LONG LENGTHS/ HAS TO SIT AND REST CKD (chronic kidney disease) STAGE 3, follows with Nephrology [facility] Carmenmercedes Margarita h/p ARNOLDO 2018 Obesity GERD (gastroesophageal reflux disease) controlled Diabetes mellitus, type 2 NIDDM Restless leg syndrome Insomnia Hypertension Hyperlipidemia Sleep apnea CPAP Surgical History History of open reduction and internal fixation (ORIF) procedure left shoulder with hardware. History of left knee replacement History of cardiac cath 10 YEARS AGO - [facility] - NO STENTS/ANGIOPLASTY History of right knee joint replacement 05/22/2019 [facility] History of discectomy LUMBAR Hx of vasectomy History of colonoscopy History of tooth extraction History of cataract surgery RT/LEFT Family History Mother Family history of diabetes mellitus Grandmother (Maternal) Family history of diabetes mellitus Father Family history of stomach cancer Other No family history of adverse response to anesthesia Denies family history of Myocardial infarction Stroke Social History Smoking Status: Former smoker Tobacco Type: Cigarettes Cigarettes Per Day: 1 pack; Smoking End Date: 1997; Second Hand Exposure: No; Do You Dip or Chew Tobacco: Yes (still currently chews tobacco/no longer smokes); Tobacco Cessation Education Requested by Patient: No Hx Alcohol Use: Yes Alcohol type: beer Hx Substance Use: No Preferred Language: Portuguese Communication Ability: Effective Communication Ability Comment: PT LUIS, PT GLADIS DOES PHONE INTERVIEW Jacquard Loom Fixer Required: No Beliefs That Will Affect Care: None marital status: Current Living Situation: Spouse Current Living Situation Comment: at home with Other Information That Helps Us Care for You: No Feels Safe at Home: Yes Safety Concerns: Feels Safe At This Time Assistive Devices: Denture - Upper, Denture - Lower and Glasses Review of Systems Review of Systems: All systems reviewed & are unremarkable except as noted in HPI & below Physical Exam Physical Exam: General: no acute distress, WDWN Head: normocephalic, atraumatic Eyes: pale conjunctiva non-injected, anicteric ENT: normal inspection external ears, nose, mucous membranes moist Neck: supple, trachea midline Lungs: clear, no respiratory distress, no wheezing/rhonchi/rales CV: RRR, no murmur, no pretibial edema Abd: normal BS, soft, non-tender Ext: no cyanosis, no calf tenderness Neuro: A&O x 3, no focal deficits noted, normal affect Skin: warm, dry Results & Data Results & Data Vital Signs (Past 12 Hours) Vital Signs Temp Pulse Pulse Resp BP BP Pulse Ox 11/02/24 18:22 75 20 135/68 95 11/02/24 18:00 77 14 96 11/02/24 18:00 135/68 11/02/24 17:51 73 19 97 11/02/24 17:42 79 11/02/24 17:39 76 20 154/83 H 97 11/02/24 16:44 36.5 C 73 16 136/79 98 O2 Del Method 11/02/24 18:22 Room Air 11/02/24 18:00 11/02/24 18:00 11/02/24 17:51 11/02/24 17:42 11/02/24 17:39 Room Air 11/02/24 16:44 Room Air Laboratory Results Short CBC 11/02/24 Range/Units 17:15 WBC 7.86 (4.8-10.8) K/ul Hgb 8.0 L (14.0-18.0) g/dl Hct 26.6 L (42.0-52.0) % Plt Count 196 (130-400) K/uL BMP 11/02/24 17:15 Sodium 140 Potassium 4.2 Chloride 104 Carbon Dioxide 29 BUN 54 H Creatinine 1.84 H Glucose 145 H Calcium 8.4 L Liver Function 11/02/24 Range/Units 17:15 Total Bilirubin 0.4 (0.2-1.0) mg/dl AST 19 (13-39) U/L ALT 21 (7-52) U/L Alkaline Phosphatase 39 (34-104) U/L Albumin 3.8 (3.4-5.0) gm/dl Supervising Physician Co-Signing Physician Notes delayed entry date of service noted above Attending Addendum: Case reviewed with the advanced practitioner. I have personally performed a history and physical examination on the patient. I have reviewed the advanced practitioner's documentation on the date of service referenced in note, and I agree with, and take responsibility for the plan of care. please refer to her notes for full details patient seen and examined, records reviewed by myself as well on exam, patient seen resting in bed, comfortable feels better after receiving 1 unit of blood no chest pain, dizziness, shortness of breath no other symptoms VS noted and reviewed oriented x3, not in distress, speaks in sentences with no effort nor accessory muscle use normal rate, regular rhythm, no murmurs clear breath sounds bilaterally non distended, soft, nontender no bipedal edema, erythema, warmth no neuro deficits all labs, imaging noted and reviewed ASSESSMENT AND PLAN> SYMPTOMATIC ANEMIA ACUTE BLOOD LOSS ANEMIA HISTORY OF SMALL BOWEL AVM Hg 8.0 transfuse 1 unit pRBC monitor Hg closely anemia panel GI consulted other diagnoses and plan of care as per advanced practitioner's notes I spent a total of 35 minutes coordinating, documenting, and providing care for this patient, excluding time spent in the performance of separately billed services or time spent by another provider/QHP. Da Rider MD (4) CKD (chronic kidney disease) stage 3, GFR 30-59 ml/min Chronic kidney disease stage 3 subtype: unspecified whether 3a or 3b Qualified Code(s): N18.30 - Chronic kidney disease, stage 3 unspecified
[2024-11-02 18:46] LABS: Ferritin 33.7 ng/ml (8-388)
[2024-11-02] MEDS: PANTOprazole 40 MG in DEXTROSE 5% MINI-B 100 ML IV SCH (19:07)
[2024-11-02] MEDS: PANTOPRAZOLE BOLUS/DRIP IV STA (19:41)
[2024-11-02] MEDS ORDERED: ONDANSETRON INJ 2 MG/ML 2 ML VIAL IV PRN (21:03)
[2024-11-02] MEDS ORDERED: POLYETHYLENE (MIRALAX) 17 GM PACK PO PRN (21:03)
[2024-11-02] MEDS ORDERED: ACETAMINOPHEN 325 MG TAB PO PRN (21:03)
[2024-11-02] MEDS ORDERED: GLUCOSE 40% GEL 15 GM TUBE PO PRN (21:32)
[2024-11-02] MEDS ORDERED: GLUCOSE 10 TAB/TUBE PO PRN (21:32)
[2024-11-02] MEDS ORDERED: DEXTROSE 50% 50 ML SYRINGE IV PRN (21:32)
[2024-11-02] MEDS ORDERED: GLUCAGON FOR INJ 1 MG VIAL SQ PRN (21:32)
[2024-11-02] MEDS ORDERED: CARBOHYDRATES FOR HYPOGLYCEMIA PO PRN (21:32)
[2024-11-02] MEDS ORDERED: INSULIN ASPART PER UNIT CHARGE SC SCH (21:45)
[2024-11-02] MEDS ORDERED: Nursing to Pharmacy Communication SCH (22:15)
[2024-11-02 23:06] LABS: Hematocrit (blood only) 26.1 % (42.0-52.0); Hemoglobin 8.2 g/dl (14.0-18.0)
[2024-11-02] MEDS: OCTREOTIDE ACETATE 100 MCG/ML VIAL SQ SCH (23:31)
[2024-11-02] MEDS: carvediloL 12.5 MG TAB PO SCH (23:31)
[2024-11-02] MEDS: tiZANidine HCL 4 MG TABLET PO SCH (23:31)
[2024-11-02] MEDS: INSULIN ASPART PER UNIT CHARGE SC SCH (23:32)
[2024-11-03] MEDS: GABAPENTIN 300 MG CAP PO STA (00:28)
[2024-11-03 05:51] LABS: Appearance Urine Clear (Clear); Bilirubin Urine Negative (Negative); Blood Urine Negative (Negative); Color Urine Yellow; Glucose Urine UA 3+ (Negative); Ketones Urine Negative (Negative); Leukocyte Esterase Urine Negative (Negative); Nitrite Urine Negative (Negative); Protein Urine Negative (Negative); Specific Gravity Urine 1.021 (1.000-1.030); Urobilinogen Urine Negative (Negative); pH Urine 5.5 (4.5-7.5)
[2024-11-03 06:26] LABS: Hematocrit (blood only) 27.7 % (42.0-52.0); Hemoglobin 8.5 g/dl (14.0-18.0); Mean Corpuscular Hemoglobin 30.8 pg (25.0-34.0); Mean Corpuscular Hgb Conc 30.7 g/dL (32.0-36.0); Mean Corpuscular Volume 100.4 fL (80.0-100.0); Mean Platelet Volume 12.7 fL (9.4-12.4); Platelet Count 171 K/uL (130-400); RDW Coefficient of Variation 17.3 % (11.5-14.5); RDW Standard Deviation 61.5 fL (36.4-46.3); Red Blood Count 2.76 M/uL (4.70-6.10); White Blood Count 7.27 K/ul (4.8-10.8)
[2024-11-03 06:42] LABS: BUN Creatinine Ratio 28.1 (10-20); Calcium 8.3 mg/dl (8.6-10.3); Creatinine Clr Calc Pharmacy 48.4 ml/min; Potassium 4.2 mmol/L (3.5-5.1)
--- NOTE | 2024-11-03 08:07 | Gastrointestinal Consultation ---
Date of Consultation November 03, 2024 Assessment & Plan (1) Symptomatic anemia: Suspect related to chronic GI blood loss due to known small bowel vascular ectasias. Recommend transfusing him to a comfortable hemoglobin to a point where he is not symptomatic. He should continue his iron and octreotide. He should follow-up with [facility] for possible repeat capsule study to identify any additional bleeding sites that need to be treated. History of Present Illness Reason for Consultation: Anemia Attending Physician: Karthikeyan Rubi MD History of Present Illness Patient has a history of recurrent GI bleeding felt secondary to small bowel vascular ectasias. He is followed at [facility]. He states that at 1 point they did treat the vascular ectasias endoscopically. He presented now with shortness of breath a hemoglobin of 8 which is below his baseline. He is on home octreotide for the GI bleeding. He denies any overt bleeding. Denies any melena hematemesis hematochezia. He denies any abdominal pain nausea vomiting change in bowel habits. Allergies Allergy/AdvReac Type Severity Reaction Status Date / Time lisinopril AdvReac Severe ARNOLDO, Verified 11/02/24 18:58 hyperkalemia, ARF - PT DENIES verapamil AdvReac Severe "SHUT HIS Verified 11/02/24 18:58 HEART DOWN" Home Medications Medication Instructions Recorded Confirmed Type acetaminophen 500 mg tablet 500 - 1,000 mg PO Q6 PRN 03/09/22 11/02/24 History pain/fevers gabapentin 600 mg tablet 600 mg PO BID 03/09/22 11/02/24 History losartan 100 mg tablet 100 mg PO QAM 03/09/22 11/02/24 History torsemide 20 mg tablet 20 mg PO QAM 03/09/22 11/02/24 History tizanidine 2 mg tablet 2 mg PO HS MUSCLE SPASMS 11/30/22 11/02/24 History atorvastatin 40 mg tablet 40 mg PO QAM 02/24/24 11/02/24 History cyanocobalamin (vitamin B-12) 2,500 mcg sublingual DAILY 02/24/24 11/02/24 History 2,500 mcg sublingual tablet (Vitamin B-12) empagliflozin 25 mg tablet 25 mg PO QAM 02/24/24 11/02/24 History (Jardiance) fluticasone propionate 50 2 spray intranasal QA 02/24/24 11/02/24 History mcg/actuation nasal spray,suspension metformin 500 mg tablet,extended 500 mg PO HS 02/24/24 11/02/24 History release 24 hr pantoprazole 40 mg tablet,delayed 40 mg PO QAM 02/24/24 11/02/24 History release triamcinolone acetonide 0.5 % 1 applic topical DIRECTED PRN 02/24/24 11/02/24 History topical cream Flare carvedilol 25 mg tablet 12.5 mg (1/2 x 25 mg) PO BID #0 02/26/24 11/02/24 Rx tabs ferrous sulfate 325 mg (65 mg 325 mg PO BID #60 tabs 02/26/24 11/02/24 Rx iron) tablet gabapentin 300 mg capsule 300 mg PO QAM 11/02/24 11/02/24 History insulin degludec 100 40 unit subcut QPM 11/02/24 11/02/24 History unit-liraglutide 3.6 mg/mL(3 mL) subcutaneous pen (Xultophy 100/3.6) octreotide acetate 50 mcg/mL (1 50 mcg subcut BID 11/02/24 11/02/24 History mL) injection syringe Patient History Medical History Poor historian COPD (chronic obstructive pulmonary disease) Numbness and tingling left arm and leg intermittently at random, no blurred vision or facial drooping. --> treated at [facility] through the emergency room per direction of PCP. patient had no diagnosis at that time. [facility] neuro suspects cervical radiculopathy-pt refused further testing or physical therapy Hx of colonic polyp Arthritis of spine CAN'T WALK LONG LENGTHS/ HAS TO SIT AND REST CKD (chronic kidney disease) STAGE 3, follows with Nephrology [facility] h/p ARNOLDO 2019 Obesity GERD (gastroesophageal reflux disease) controlled Diabetes mellitus, type 2 NIDDM Restless leg syndrome Insomnia Hypertension Hyperlipidemia Sleep apnea CPAP Surgical History History of open reduction and internal fixation (ORIF) procedure left shoulder with hardware. History of left knee replacement History of cardiac cath 10 YEARS AGO - [facility] - NO STENTS/ANGIOPLASTY History of right knee joint replacement 05/22/2019 [facility] History of discectomy LUMBAR Hx of vasectomy History of colonoscopy History of tooth extraction History of cataract surgery RT/LEFT Family History Mother Family history of diabetes mellitus Grandmother (Maternal) Family history of diabetes mellitus Father Family history of stomach cancer Other No family history of adverse response to anesthesia Denies family history of Myocardial infarction Stroke Social History Smoking Status: Former smoker Tobacco Type: Cigarettes Cigarettes Per Day: 1 pack; Smoking End Date: 1997; Second Hand Exposure: No; Do You Dip or Chew Tobacco: Yes (still currently chews tobacco/no longer smokes); Tobacco Cessation Education Requested by Patient: No Hx Alcohol Use: Yes Alcohol type: beer Hx Substance Use: No Preferred Language: [place] Communication Ability: Effective Communication Ability Comment: PT SUN'AQ, PT GLADIS DOES PHONE INTERVIEW Camp Head Counselor Required: No Beliefs That Will Affect Care: None marital status: Current Living Situation: Spouse Current Living Situation Comment: at home with Other Information That Helps Us Care for You: No Feels Safe at Home: Yes Safety Concerns: Feels Safe At This Time Assistive Devices: Denture - Upper, Denture - Lower and Glasses Review of Systems Review of Systems: No fever No chills No SOB No CP No Abd pain Physical Exam Physical Exam: Eyes; anicteric HENT No masses Chest clear to A Cor S1, S2 physiologic Abd: softer nontender no masses Ext no edema Results & Data Vital Signs (Past 12 Hours) Vital Signs Temp Pulse Pulse Resp BP BP Pulse Ox 11/03/24 07:17 96 H 11/03/24 03:20 36.5 C 84 20 105/76 92 11/02/24 21:58 36.4 C L 69 12 132/72 94 11/02/24 21:42 90 11/02/24 21:15 36.6 C 68 12 170/69 H 97 11/02/24 21:07 84 11/02/24 21:04 11/02/24 20:53 11/02/24 20:53 36.6 C 71 14 121/66 98 11/02/24 20:15 36.7 C 74 14 137/63 O2 Del Method 11/03/24 07:17 11/03/24 03:20 Room Air 11/02/24 21:58 11/02/24 21:42 11/02/24 21:15 11/02/24 21:07 11/02/24 21:04 Room Air 11/02/24 20:53 Room Air 11/02/24 20:53 Room Air 11/02/24 20:15 Laboratory Results Laboratory Results - last 48 hr 11/02/24 11/02/24 11/02/24 17:15 22:39 22:51 WBC 7.86 RBC 2.60 L Hgb 8.0 L 8.2 L Hct 26.6 L 26.1 L MCV 102.3 H MCH 30.8 MCHC 30.1 L RDW Std Deviation 58.2 H RDW Coeff of Arvin 15.9 H Plt Count 196 MPV 12.8 H Immature Gran % (Auto) 0.6 Neut % (Auto) 78.5 Lymph % (Auto) 11.7 [place] % (Auto) 7.5 Eos % (Auto) 0.9 Baso % (Auto) 0.8 Neut # (Auto) 6.17 Lymph # (Auto) 0.92 L [place] # (Auto) 0.59 Eos # (Auto) 0.07 Baso # (Auto) 0.06 Immature Gran # (Auto) 0.05 Sodium 140 Potassium 4.2 Chloride 104 Carbon Dioxide 29 Anion Gap 7 BUN 54 H Creatinine 1.84 H Est Cr Clr Drug Dosing 43.8 eGFR 38.47 BUN/Creatinine Ratio 29.3 H Glucose 145 H POC Glucose 121 H Calcium 8.4 L Iron 55 TIBC 342 Transferrin 244 Transferrin % Sat 16 L Ferritin 33.7 Total Bilirubin 0.4 AST 19 ALT 21 Alkaline Phosphatase 39 Troponin I High Sens < 2.3 Total Protein 5.8 L Albumin 3.8 Globulin 2.0 L Albumin/Globulin Ratio 1.9 Lipase 71 Urine Color Urine Appearance Urine pH Ur Specific [place] Urine Protein Urine Glucose (UA) Urine Ketones Urine Blood Urine Nitrite Urine Bilirubin Urine Urobilinogen Ur Leukocyte Esterase Blood Type O Positive Antibody Screen NEGATIVE Crossmatch See Detail 11/03/24 11/03/24 11/03/24 05:40 05:42 05:44 WBC 7.27 RBC 2.76 L Hgb 8.5 L Hct 27.7 L MCV 100.4 H MCH 30.8 MCHC 30.7 L RDW Std Deviation 61.5 H RDW Coeff of Arvin 17.3 H Plt Count 171 MPV 12.7 H Immature Gran % (Auto) Neut % (Auto) Lymph % (Auto) [place] % (Auto) Eos % (Auto) Baso % (Auto) Neut # (Auto) Lymph # (Auto) [place] # (Auto) Eos # (Auto) Baso # (Auto) Immature Gran # (Auto) Sodium 142 Potassium 4.2 Chloride 107 Carbon Dioxide 30 Anion Gap 5 BUN 47 H Creatinine 1.67 H Est Cr Clr Drug Dosing 48.4 eGFR 43.22 BUN/Creatinine Ratio 28.1 H Glucose 139 H POC Glucose 144 H Calcium 8.3 L Iron TIBC Transferrin Transferrin % Sat Ferritin Total Bilirubin AST ALT Alkaline Phosphatase Troponin I High Sens Total Protein Albumin Globulin Albumin/Globulin Ratio Lipase Urine Color Yellow Urine Appearance Clear Urine pH 5.5 Ur Specific [place] 1.021 Urine Protein Negative Urine Glucose (UA) 3+ H Urine Ketones Negative Urine Blood Negative Urine Nitrite Negative Urine Bilirubin Negative Urine Urobilinogen Negative Ur Leukocyte Esterase Negative Blood Type Antibody Screen Crossmatch PG Care Time/CCT Total # of Minutes Spent Total Time Spent with Patient: Total time spent is greater than 50% in coordination of care (as documented) at patient's floor/unit and/or counseling patient: Coding Level of Care Code 56664 INT INP/OBS CARE 3/75MIN Diagnoses Symptomatic anemia D64.9
[2024-11-03] MEDS: FLUTICASONE PROPIONATE NA SPR 16 GM BTL NAE SCH (08:37)
[2024-11-03] MEDS: FERROUS SULFATE 325 MG TAB PO SCH (08:38)
[2024-11-03] MEDS: GABAPENTIN 300 MG CAP PO SCH (08:38)
--- OUTSIDE RECORDS SUMMARY | 2024-11-03 09:36 | External Medical Summary | Summary of Care ---
Author Name Unknown Organization [facility] Address [address] [place] [address] Phone [phone] Care Team Providers Care Lifestyle Director Name Role Phone Javy Moscoso DO Primary Care Provider [phone] Reason for Visit * Reason Comments Medication Refill Encounter Details Date Type Department Care Team (Late st Contact Info) Description 11/02/2024 Refill Family Practice 65 [facility] [address] [place] [id number] Javy Moscoso DO [address] [place] [phone] Allergies Active Allergy Reactions Criticality Noted Date Comments Lisinopril Unknown Low 11/15/2022 Verapamil Medium 06/26/2020 Heart Block documented as of this encounter (statuses as of 11/02/2024) Medications CPAP every night at bedtime. Active Acetaminophen 500 MG Oral Tablet (Tylenol) Take 1 to 2 tablets by mouth every 6 hours as needed 03/09/20 22 Active OneTouch Ultra 2 w/Device Kit USE DIRECTED TO TEST BLOOD SUGARS 1 Each 4 11:01 AM EST 09/08/19 24 Active Vitamin B-12 2500 MCG Sublingual Tablet Sublingual Place 1 Tablet under the tongue in the morning. Active Dexcom G7 Sensor Use as directed. Use as directed to monitor blood sugars daily. Replace sensor every 10 days. E11.9 Active Dexcom G7 Commercial Administrator Device Use as directed. Use as directed to monitor blood sugars daily Active OneTouch Ultra In Vitro Strip (Glucose Blood)Indication s:Type 2 diabetes mellitus with hyperglycemia, with long-term current use of insulin (HCC) USE DIRECTED UP TO FOUR TIMES DAILY FOR HOME GLUCOSE TESTING 400 Strip 3 4 8:19 AM EDT 12/22/19 24 Active Docusate Sodium 100 MG Oral Capsule (Stool Softener) Take 1 Capsule by mouth in the morning and 1 Capsule before bedtime. Active Pantoprazole Sodium 40 MG Oral Tablet Delayed Release (Protonix) Take 1 Tablet by mouth in the morning and 1 Tablet before bedtime. 180 Tablet 3 4 10:48 AM EST 02/27/20 24 Active Ferrous Sulfate 325 (65 Fe) MG Oral Tablet (Feosol) Take 1 Tablet by mouth in the morning and 1 Tablet before bedtime. Active Fluticasone Propionate 50 MCG/ACT Nasal Suspension (Flonase)Indicat ions:Chronic maxillary sinusitis Administer 2 Sprays into each nostril in the morning. 48 g 3 4 12:10 PM EST 03/05/20 24 Active Atorvastatin Calcium 40 MG Oral Tablet (Lipitor)Indicat ions:Dyslipidemi a, goal LDL below 70 TAKE ONE TABLET BY MOUTH EVERY MORNING 90 Tablet 2 4 11:56 AM EST 03/15/20 24 025 Active Polyethylene Glycol 3350 17 GM/SCOOP Oral Powder (MiraLax) Take 17 g by mouth at bedtime. Active Gabapentin 300 MG Oral Capsule (Neurontin)Indic ations:Spinal stenosis of lumbar region without neurogenic claudication Take 1 Capsule by mouth in the morning. 90 Capsule 3 5 11:09 AM EST 05/01/20 24 Active Vitamin D (Ergocalciferol) 1.25 MG (61818 UT) Oral Capsule (Drisdol)Indicat ions:Vitamin D deficiency Take 1 Capsule by mouth Every Month. 6 Capsule 3 5 9:24 AM EST 06/08/20 24 Active PreserVision AREDS 2+Multi Vit Oral Capsule Take 1 Capsule by mouth in the morning and 1 Capsule before bedtime. 180 Capsule 3 06/08/20 24 Active Carvedilol 25 MG Oral Tablet (Coreg)Indicatio ns:HTN, goal below 140/90 Take 1/2 Tablet by mouth 2 times a day with morning and evening meals. 180 Tablet 3 5 9:24 AM EST 07/17/20 24 Active metFORMIN HCl ER 500 MG Oral Tablet Extended Release 24 Hour (Glucophage XR)Indications:T ype 2 diabetes mellitus with stage 3b chronic kidney disease, without long-term current use of insulin (HCC) Take 1 Tablet by mouth daily. 90 Tablet 3 5 9:24 AM EST 07/17/20 24 Active Additional Information Patient taking differently:500 mg OralDaily(AM), Reported on 11/01/2024 Empagliflozin 25 MG Oral Tablet (Jardiance)Indic ations:Type 2 diabetes mellitus with hyperglycemia, without long-term current use of insulin (HCC),Type 2 diabetes mellitus with stage 3b chronic kidney disease, without long-term current use of insulin (HCC) Take 1 Tablet by mouth in the morning. 90 Tablet 3 5 9:24 AM EST 07/16/20 24 Active Gabapentin 600 MG Oral Tablet (Neurontin) TAKE ONE TABLET BY MOUTH TWICE A DAY AT NOON AND AT BEDTIME IN ADDITION TO A 100MG DOSE IN THE MORNING 180 Tablet 1 5 9:24 AM EST 07/27/20 Active Xultophy 100-3.6 UNIT-MG/ML Subcutaneous Solution Pen-injector (Insulin Degludec-Liraglu tide) Inject up to 44 units under the skin daily per titration chart from [facility] clinic. 45 mL 3 4 12:03 PM EST 08/03/20 Active Additional Information Patient taking differently: 38 Units Subcutaneous HS, per [facility] clinic, Reported on 11/01/2024 Pen [place]ford 31G X 5 MMIndications:Ty pe 2 diabetes mellitus with hyperglycemia, with long-term current use of insulin (HCC) Use as directed with glargine insulin once daily 300 Each 3 08/27/20 24 Active Triamcinolone Acetonide 0.1 % External Cream (Aristocort)Nettie cations:Intrinsi c atopic dermatitis Apply topically to affected area 2 times a day. 60 g 5 5 4:22 PM EST 01/10/20 25 Active tiZANidine HCl 2 MG Oral Tablet (Zanaflex)Indica tions:Spinal stenosis of lumbar region without neurogenic claudication Take 1 Tablet by mouth at bedtime as needed for Muscle spasms. 90 Tablet 1 5 4:22 PM EST 09/07/19 25 Active Losartan Potassium 100 MG Oral Tablet (Cozaar)Indicati ons:HTN, goal below 140/90 Take 1 Tablet by mouth in the morning. 90 Tablet 1 5 4:22 PM EST 09/10/19 25 Active Torsemide 20 MG Oral Tablet (Demadex)Indicat ions:HTN, goal below 140/90 TAKE ONE TABLET BY MOUTH EVERY MORNING 90 Tablet 3 5 9:11 AM EST 10/22/19 25 026 Active Octreotide Acetate 50 MCG/ML Subcutaneous Solution Prefilled Syringe Inject 50 mcg under the skin 2 times a day. 60 mL 5 11/03/19 25 Active Octreotide Acetate 50 MCG/ML Subcutaneous Solution Prefilled Syringe Inject 50 mcg under the skin 2 times a day. 60 mL 5 5 11:30 AM EST 04/16/20 24 025 Discontin ued(Refil l) Hospital, Clinic, or Other Facility Administered Medication Ordered Dose Route Frequency Start Date End Date Status Albuterol Sulfate (Proventil) (2.5 MG/3ML) 0.083% inhalation solution 2.5 mgIndications:ILD (interstitial lung disease) (HCC),BEARDEN (dyspnea on exertion) 2.5 mg NEBULIZER Q4H PRN 12/12/2023 Act jose documented as of this encounter (statuses as of 11/02/2024) Active Problems Problem Noted Date Diagnosed Date Intrinsic atopic dermatitis 09/07/2024 DDD (degenerative disc disease), cervical 2023 Left cervical radiculopathy 04/05/2024 Chronic midline thoracic back pain 04/05/2024 Lumbar degenerative disc disease 04/05/2024 Gastrointestinal hemorrhage 03/05/2024 Symptomatic anemia 03/05/2024 Orthostatic hypotension 03/05/2024 Chest pain 02/22/2024 Palpitations 02/22/2024 Type 2 [...] chronic blood loss 12/17/2022 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/16/2023): Advised repeat colonoscopy November 2023 PSVT (paroxysmal supraventricular tachycardia) 0 12/07/2022 Bilateral impacted cerumen 10/22/2022 Atherosclerosis of lime co ronary artery without angina pectoris 07/15/2022 Primary osteoarthritis of left knee 07/15/2022 Vitamin D deficiency 07/15/2022 Numbness 05/21/2022 Overview (05/21/2022): Transient left arm and leg numbness Hypertensive [...] GUS on CPAP 03/17/2021 Primary insomnia 03/17/2021 Stage 3a chronic kidney disease 01/06/2021 Overview: Per CKD protocol Spinal stenosis of lumbar re gion without neurogenic claudication 06/09/2020 Bilateral lumbar radiculopathy 06/09/2020 Bilateral leg edema 06/09/2020 Gastroesophageal reflux disease without esophagi tis 06/09/2020 Lyme disease 02/18/2019 documented as of this encounter (statuses as of 11/02/2024) Resolved Problems Problem Noted Date Diagnosed Date [...] as of this encounter (statuses as of 11/02/2024) Immunizations Name Administration Dates Next Due COVID-19 mRNA, LNP-s, No Pre serve, 2-Dose Series ([facility]) 07/03/2021,12/27/2020,12/06/2020 COVID-19, MRNA-LNP, PF, 30 M CG/0.3 mL, 12 YRS AND ABOVE, IM (TuManitas-Comirnat) 05/22/2024,02/22/2024,06/16/2023 Pneumococcal Conjugate Vacci ne, 20-valent ([id number]) 12/07/2022 Pneumococcal Polysaccharide PPV23 (Pneumovax) 09/08/2020 RSV Vac., Recomb, Adjuvant, PF,0.5 Ml (Arexvy) 08/03/2024 Season Influenza, Quad, PF, Adjuvanted, 65+ Yrs, IM (FLUAD) 06/03/2020 Seasonal Influenza Virus Vac cine, Unspecified Formulation 05/22/2019 Seasonal Influenza, High Dos e, Trivalent, PF, IM (Fluzone HD) 05/22/2024 Seasonal Influenza, Quadriva lent Hd (Fluzone Hd) 06/16/2023,05/06/2022,06/13/2021 TDAP (age 10 and older)(Boostrix) 03/17/2021 Zoster Vaccine Recombinant (Shingrix) 08/03/2024 ,11/17/2021 documented as of this encounter Social History [...] ages 0-17 years) Not on file 12/22/2023 Food Insecurity Answer Date Recorded Within the past 12 months, y ou worried that your food would run out before you got the money to buy more. Never true 12/22/19 24 Within the past 12 months, t he food you bought just didn't last and you didn't have money to get more. Never true 12/22/2023 Do you need food for this week? No 12/22/2023 Sex and Gender Information Value Date Recorded Sex Assigned at Male 03/08/2023 7:47 AM EDT Legal Sex Male 7:01 AM EST Gender Identity Male 03/08/2023 7:47 AM EDT Sexual Orientation Straight 03/08/2023 7: 47 AM EDT documented as of this encounter Functional Status * Are you deaf or do you have serious difficulty hearing? Answer Date of Assessment Author No 02/15/2019 2:08 AM EDT Alexandr Gutiérrez RN * Are you blind or do you have serious difficulty seeing, even when wearing glasses? Answer Date of Assessment Author No 02/15/2019 2:08 AM ANUMT Alexandr Gutiérrez RN * Do you have serious difficulty walking or climbing stairs? (5 years old or older) Answer Date of Assessment Author No 02/15/2019 2:08 AM EDAlexandr Bernstein RN * Do you have difficulty dressing or bathing? (5 years old or older) Answer Date of Assessment Author No 02/15/2019 2:08 AM EDAlexandr Bernstein RN * Because of a physical, mental, or emotional condition, do you have difficulty doing errands alone such as visiting a doctors office or shopping? (15 years old or older) Answer Date of Assessment Author No 02/15/2019 2:08 AM EDAlexandr Bernstein RN documented as of this encounter Mental Status * Because of a physical, mental, or emotional condition, do you have serious difficulty concentrating, remembering, or making decisions? (5 years old or older) Answer Entry Date Author No 02/15/2019 2:08 AM Alexandr Hernandez RN documented in this encounter Miscellaneous Notes * Telephone Encounter - Javy Moscoso DO - 11/02/2024 9:23 AM ESTSigned Prescriptions: Disp Refills Octreotide Acetate 50 MCG/ML Subcutaneous *60 mL 5 Sig: Inject 50 mcg under the skin 2 times a day.Authorizing Provider: JAVY MOSCOSO documented in this encounter Plan of Treatment Upcoming Encounters Date Type Department Care Team (Late st Contact Info) Description 11/30/2024 9:30 AM EDT Office Visit Gastroenterology, [facility] [address] [address] Teddy Mullen CRNP [address] [place] [address] 12/03/2024 8:10 AM EDT Laboratory [facility], [address] [phone] [facility], [address] [place] [address] 12/06/2024 8:40 AM EDT Office Visit Family Practice 65 [facility] [place] [address] [place] [phone] Javy Moscoso, DO [address] [place] [phone] 02/15/2025 10:00 AM EDT Office Visit Sleep Disorders [facility] [address] [place] [phone] Debby Cornejo DO [address] [place] [address] 03/04/2025 8:20 AM EDT Laboratory Laboratory Patient Service [address] [phone] [place], [address] [place] [address] 03/14/2025 9:00 AM EDT Office Visit Hematology/Oncology Екатерина Fontanelle [place] [address] [facility] [place] [phone] Katt Mullen CRNP [address] [place], [place] [address] [address] 04/10/2025 10:40 AM EDT Office Visit Nephrology, [facility] [address] [facility] [place] [address] Augusto Lerner MD [address] [facility] [place] [id number] Scheduled Procedures Name Priority Associated Diagnoses Date/Ti me COLONOSCOPY FLEXIBLE PROXIMA L DIAGNOSTIC Recall History of colonic polyps Health Maintenance Due Date Last Done Comments Cologuard 01/12/1997 Sigmoidoscopy 01/12/1997 Fecal Occult Blood Test 11/18/2023 11/18/19 23, 11/17/2022, 03/16/2022, Additional history exists Adult Wellness Visit 09/28/2024 09/28/2023 COVID-19 Vaccine ( season) 2024 05/22/2024, 02/22/2024, 06/16/2023, Additional history exists Depression Screening 12/21/2024 12/22/2023 HbA1c 02/01/2025 08/03/2024, 03/30, 12/15/2023, Additional history exists Diabetic Eye Exam 03/06/2025 03/06/2024, , 08/24/2023, Additional history exists Colonoscopy 05/03/2025 05/03/2024, 12/2023, 12/10/2022, Additional history exists Colorectal Cancer Screening 05/03/2025 O2 ASSESSMENT COMPLETED IN PAST YEAR FOR COPD 05/03/2025 05/03/2024 GFR 05/04/2025 11/01/2024, 08/29, 06/18/2024, Additional history exists Albumin/Creatinine Ratio 09/07/2025 025, 09/09/2023, 07/02/2022 Diabetic Foot Exam 09/07/2025 09/07/2024, 1 , 06/16/2023 CKD HGB USE SMARTSET 45484 11/01/202511/01, 11/01/2024, 09/14/2024, Additional history exists CKD PHOS USE SMARTSET 20964 11/01/2025 03/0 01/2025, 05/05/2023, 02/02/2023, Additional history exists DTap/Tdap Vaccines (2 - Td or Tdap) 03/17/2031 03/17/2021 Alpha-1 Antitrypsin Completed 03/15/2022 AAA Screening Completed 12/07/2022, 05/30, 02/15/2019, Additional history exists Pneumococcal Vaccine: 50+ Years Completed 12/07/2022, 09/08/2020 RETIRED - COLONOSCOPY-ANNUAL AGES 18-100 Discontinued 05/03/2024, 05/03/2024, 12/10/2022, Additional history exists Influenza Vaccine (FLU shot) Completed 05/22/2024, 06/16/2023, 05/06/2022, Additional history exists HPV (Gardasil) Vaccine Aged Out No lo nger eligible based on patient's age to complete this topic Hepatitis B Vaccine Aged Out No longe r eligible based on patient's age to complete this topic MENINGOCOCCAL (MENACTRA/MENVEO) Aged Out No longer eligible based on patient's age to complete this topic Meningitis B Vaccine (Bexsero/Trumemba) Aged Out No longer eligible based on [...] patient have Health Care Power of Attor wkabena? No Care Teams Lifestyle Director Relationship Specialty Start Date End Date Javy Moscoso DO [address] [place] [phone] PCP - General Family Medicine 07/04/23 documented as of this encounter
--- OUTSIDE RECORDS SUMMARY | 2024-11-03 09:36 | External Medical Summary | Summary of Care ---
Author Name Unknown Organization [facility] Address [address] [place] [address] Phone [phone] Care Team Providers Care Plan Checker Name Role Phone Javy Moscoso DO Primary Care Provider + [phone] Reason for Visit * Reason Comments Dosage Adjustment In Person (Anticoag Cl inic) Diabetes Follow-Up Encounter Details Date Type Department Care Team (Late st Contact Info) Description 09/28/2024 8:00 AM EST Office Visit Family Practice [address] [address] College, Pharmacist [address] [address] Type 2 diabetes mellitus with stage 3b chronic kidney disease, with long-term current use of insulin ([facility])* Allergies Active Allergy Reactions Criticality Noted Date Comments Lisinopril Unknown Low 11/15/2022 Verapamil Medium 06/26/2020 Heart Block documented as of this encounter (statuses as of 10/02/2024) Medications CPAP every night at bedtime. Active Acetaminophen 500 MG Oral Tablet (Tylenol) Take 1 to 2 tablets by mouth every 6 hours as needed Active Musicraiseruch Ultra 2 w/Device Kit USE DIRECTED TO TEST BLOOD SUGARS 1 Each 09/09/2023 11:01 AM EST 4 Active Torsemide 20 MG Oral Tablet (Demadex)Indicat ions:HTN, goal below 140/90 TAKE ONE TABLET BY MOUTH EVERY MORNING 90 Tablet 3 07/30/2024 11:50 AM EST 4 025 Active Vitamin B-12 2500 MCG Sublingual Tablet Sublingual Place 1 Tablet under the tongue in the morning. Active Dexcom G7 Sensor Use as directed. Use as directed to monitor blood sugars daily. Replace sensor every 10 days. E11.9 Active Dexcom G7 Cubing Machine Tender Device Use as directed. Use as directed to monitor blood sugars daily Active OneTouch Ultra In Vitro Strip (Glucose Blood)Indication s:Type 2 diabetes mellitus with hyperglycemia, with long-term current use of insulin (HCC) USE DIRECTED UP TO FOUR TIMES DAILY FOR HOME GLUCOSE TESTING 400 Strip 3 12/31/2023 8:19 AM EDT 4 Active Docusate Sodium 100 MG Oral Capsule (Stool Softener) Take 1 Capsule by mouth in the morning and 1 Capsule before bedtime. Active Pantoprazole Sodium 40 MG Oral Tablet Delayed Release (Protonix) Take 1 Tablet by mouth in the morning and 1 Tablet before bedtime. 180 Tablet 3 08/24/2024 10:48 AM EST 4 Active Ferrous Sulfate 325 (65 Fe) MG Oral Tablet (Feosol) Take 1 Tablet by mouth in the morning and 1 Tablet before bedtime. Active Fluticasone Propionate 50 MCG/ACT Nasal Suspension (Flonase)Indicat ions:Chronic maxillary sinusitis Administer 2 Sprays into each nostril in the morning. 48 g 3 08/15/2024 12:10 PM EST 4 Active Atorvastatin Calcium 40 MG Oral Tablet (Lipitor)Indicat ions:Dyslipidemi a, goal LDL below 70 TAKE ONE TABLET BY MOUTH EVERY MORNING 90 Tablet 2 08/13/2024 11:56 AM EST 4 025 Active Polyethylene Glycol 3350 17 GM/SCOOP Oral Powder (MiraLax) Take 17 g by mouth at bedtime. Active Octreotide Acetate 50 MCG/ML Subcutaneous Solution Prefilled Syringe Inject 50 mcg under the skin 2 times a day. 60 mL 5 09/10/2024 2:07 PM EST 4 Active Gabapentin 300 MG Oral Capsule (Neurontin)Indic ations:Spinal stenosis of lumbar region without neurogenic claudication Take 1 Capsule by mouth in the morning. 90 Capsule 3 07/18/2024 10:56 AM EST 4 Active Vitamin D (Ergocalciferol) 1.25 MG (72713 UT) Oral Capsule (Drisdol)Indicat ions:Vitamin D deficiency Take 1 Capsule by mouth Every Month. 6 Capsule 3 06/11/2024 6:55 AM EDT 4 Active PreserVision AREDS 2+Multi Vit Oral Capsule Take 1 Capsule by mouth in the morning and 1 Capsule before bedtime. 180 Capsule 3 4 Active Carvedilol 25 MG Oral Tablet (Coreg)Indicatio ns:HTN, goal below 140/90 Take 1/2 Tablet by mouth 2 times a day with morning and evening meals. 180 Tablet 3 07/17/2024 4:00 PM EST 4 Active metFORMIN HCl ER 500 MG Oral Tablet Extended Release 24 Hour (Glucophage XR)Indications:T ype 2 diabetes mellitus with stage 3b chronic kidney disease, without long-term current use of insulin (HCC) Take 1 Tablet by mouth daily. 90 Tablet 3 07/17/2024 4:00 PM EST 4 Active Additional Information Patient taking differently:500 mg OralDaily(AM), Reported on 09/07/2024 Empagliflozin 25 MG Oral Tablet (Jardiance)Indic ations:Type 2 diabetes mellitus with hyperglycemia, without long-term current use of insulin (HCC),Type 2 diabetes mellitus with stage 3b chronic kidney disease, without long-term current use of insulin (HCC) Take 1 Tablet by mouth in the morning. 90 Tablet 3 07/18/2024 10:56 AM EST 4 Active Gabapentin 600 MG Oral Tablet (Neurontin) TAKE ONE TABLET BY MOUTH TWICE A DAY AT NOON AND AT BEDTIME IN ADDITION TO A 100MG DOSE IN THE MORNING 180 Tablet 1 07/30/2024 12:44 PM EST 4 Active Xultophy 100-3.6 UNIT-MG/ML Subcutaneous Solution Pen-injector (Insulin Degludec-Liraglu tide) Inject up to 44 units under the skin daily per titration chart from [facility] clinic. 45 mL 3 08/23/2024 12:03 PM EST 4 Active Additional Information Patient taking differently: 38 Units Subcutaneous HS, per [facility] clinic, Reported on 09/20/2024 [place] 31G X 5 MMIndications:Ty pe 2 diabetes mellitus with hyperglycemia, with long-term current use of insulin (HCC) Use as directed with glargine insulin once daily 300 Each 3 4 Active Triamcinolone Acetonide 0.1 % External Cream (Aristocort)Nettie cations:Intrinsi c atopic dermatitis Apply topically to affected area 2 times a day. 60 g 5 09/10/2024 4:22 PM EST 5 Active tiZANidine HCl 2 MG Oral Tablet (Zanaflex)Indica tions:Spinal stenosis of lumbar region without neurogenic claudication Take 1 Tablet by mouth at bedtime as needed for Muscle spasms. 90 Tablet 1 09/10/2024 4:22 PM EST 5 Active Losartan Potassium 100 MG Oral Tablet (Cozaar)Indicati ons:HTN, goal below 140/90 Take 1 Tablet by mouth in the morning. 90 Tablet 1 09/10/2024 4:22 PM EST 5 Active Hospital, Clinic, or Other Facility Administered Medication Ordered Dose Route Frequency Start Date End Date Status Albuterol Sulfate (Proventil) (2.5 MG/3ML) 0.083% inhalation solution 2.5 mgIndications:ILD (interstitial lung disease) ([facility]),BEARDEN (dyspnea on exertion) 2.5 mg NEBULIZER Q4H PRN 12/12/2023 Act jose documented as of this encounter (statuses as of 10/02/2024) Active Problems Problem Noted Date Diagnosed Date [...] 12/07/2022 Bilateral impacted cerumen 10/22/2022 Atherosclerosis of eklutna co ronary artery without angina pectoris 07/15/2022 [...] as of this encounter (statuses as of 10/02/2024) Resolved Problems Problem Noted Date Diagnosed Date [...] as of this encounter (statuses as of 10/02/2024) Immunizations Name Administration Dates Next Due COVID-19 mRNA, LNP-s, No Pre serve, 2-Dose Series ([employer]) 07/03/2021,12/27/2020,12/06/2020 COVID-19, MRNA-LNP, PF, 30 M CG/0.3 mL, 12 YRS AND ABOVE, IM (PFIZER-Comirnat) 05/22/2024,02/22/2024,06/16/2023 Pneumococcal Conjugate Vacci ne, 20-valent ([id number]) 12/07/2022 Pneumococcal Polysaccharide PPV23 (Pneumovax) 09/08/2020 RSV [...] 2:08 AM EDT Alexandr Gutiérrez RN * Do you have serious difficulty walking or climbing stairs? (5 years old or older) Answer Date of Assessment Author No 02/15/2019 2:08 AM EDT Alexandr Gutiérrez RN * Do you have difficulty dressing or bathing? (5 years old or older) Answer Date of Assessment Author No 02/15/2019 2:08 AM EDT Alexandr Gutiérrez RN * Because of a physical, mental, or emotional condition, do you have difficulty doing errands alone such as visiting a doctors office or shopping? (15 years old or older) Answer Date of Assessment Author No 02/15/2019 2:08 AM Alexandr Hernandez RN documented as of this encounter Mental Status * Because of a physical, mental, or emotional condition, do you have serious difficulty concentrating, remembering, or making decisions? (5 years old or older) Answer Entry Date Author No 02/15/2019 2:08 AM Alexandr Hernandez RN documented in this encounter Progress Notes * Mirtha Novak, [facility] - 09/28/2024 8:14 AM EST Medication Therapy Disease Management Clinic - Diabetes Management Progress Note Walker Mancini, identified by name and date of , is a 74 year old male being seen for diabetes management/education. Patient presents for return diabetic visit. DIABETES: Current diabetic medications: Xultophy 38 units at bedtime STOP Lantus Metformin 500 mg ER 1 tab daily Jardiance 25 mg daily Medication Injection Site: Abdomen Lifestyle: Diet: unchanged Glucose Review/SMBG: Readings obtained from patient device - unable to download dexcom due to technical issue. Hypoglycemia: Does your blood sugar go below 70 mg/dL? Not since stopping lantus - instead reports meter keeps reading high. Hyperglycemia symptoms present: none Recent Labs Units 08/03/24 0916 04/19/24 0944 12/15/23 0750 HEMOGLOBIN A1C - [facility] % 6.9* 5.7* 8.3* Recent Labs Units 09/14/24 1154 06/18/24 0757 04/19/24 0944 ESTIMATED GLOMERULAR FILTRATION RATE - [facility] mL/min 41* 45* 45* CREATININE - [facility] mg/dL 1.8* 1.6* 1.6* HYPERTENSION: Patient on ACEi/ARB: yes BP Readings from Last 3 Encounters: 09/14/24 108/67 09/07/24 138/68 08/08/24 148/69 Blood pressure at goal: yes HYPERLIPIDEMIA: Recent Labs Units 12/15/23 0750 03/21/23 0803 LDL CHOLESTEROL (CALCULATED) - [facility] mg/dL 59 -- LDL CHOLESTEROL (DIRECT MEASURE) - [facility] mg/dL -- 62 Does patient have clinical ASCVD? No, is patient LDL less than 70mg/dL? Yes HEALTH MAINTENANCE REVIEW: Health Maintenance Due Topic Date Due CKD PHOS USE SMARTSET 24046 05/05/2024 Adult Wellness Visit 09/28/2024 ASSESSMENT & PLAN: ICD-10-CM 1. Type 2 diabetes mellitus with stage 3b chronic kidney disease, with long-term current use of insulin ([facility]) E11.22 N18.32 Z79.4 BG Readings - Blood sugars not available. Unable to get dexcom to download - had to use patient's glucometer and visibly view Dexcom. Blood sugars are elevated since stopping lantus, however also discrepancy between dexcom monitor and onetouch. Advised patient to calibrate and doulbe check expiration date on strips. Medications - Reviewed current regimen, patient is adherent to regimen. Will increase Diet, Exercise, Lifestyle - No significant lifestyle changes since last visit. Discussed with patient increasing vegetables and decreasing carbs. Patient is agreeable to SMBG with dexcom CGM. Patient aware to contact clinic if any hypoglycemia before next visit. MEDICATION CHANGES: yes, see below; preferred pharmacy: [facility] Diabetic Medications: Increase Xultophy 40 units at bedtime STOP Lantus Metformin 500 mg ER 1 tab daily Jardiance 25 mg daily HEALTH MAINTENANCE INTERVENTIONS: Labs: Up to Date Immunizations: Up to Date Foot Exam: Up to Date Eye Exam: Up to Date Annual Wellness Visit: N/A FOLLOW UP: Phone call in 2 weeks Visit date not found I spent a total of 20-29 minutes (exact time 23 mins) on the date of service in preparation, delivery, and documentation of the care provided to Walker Mancini excluding any time spent in the performance of separately billed services. Mirtha David [facility] Clinical Pharmacist - Relay Record Clerk Medication Therapy Management Clinic 09/28/2024, 8:17 AM documented in this encounter Plan of Treatment Upcoming Encounters Date Type Department Care Team (Late st Contact Info) Description 11/30/2024 9:30 AM EDT Office Visit Gastroenterology, [facility] [address] [place] [address] Teddy Mullen CRNP [address] [place] [address] 12/03/2024 8:10 AM EDT Laboratory Laboratory Patient Service [facility] [address] [place] [address] [place], [facility] [address] [place] [address] 12/06/2024 8:40 AM EDT Office Visit Family [address] [place] [address] Javy Moscoso [address] [place] [address] 02/15/2025 10:00 AM EDT Office Visit Sleep Disorders Ctr [facility] [address] [place] [id number] Debby Cornejo, [address] [place] [address] 03/04/2025 8:20 AM EDT Laboratory Laboratory Patient Service [address] [address] [place], [facility] [address] [place] [address] 03/14/2025 9:00 AM EDT Office Visit Hematology/Oncology [facility] [address] [facility] [place] [phone] Katt Mullen CRNP [address] [place] [address] [place] [address] 04/10/2025 10:40 AM EDT Office Visit Nephrology, [facility] [address] [place] [address] Augusto Lerner MD [address] [facility] [place] [address] Scheduled Procedures Name Priority Associated Diagnoses Date/Ti me COLONOSCOPY FLEXIBLE PROXIMA L DIAGNOSTIC Recall History of colonic polyps Health Maintenance Due Date Last Done Comments Cologuard 01/12/1997 Sigmoidoscopy 01/12/1997 Fecal Occult Blood Test 11/18/2023 11/18/19, 11/17/2022, 03/16/2022, Additional history exists CKD PHOS USE SMARTSET 40789 05/05/2024 09/0 02/2023, 02/02/2023, 01/11/2022, Additional history exists Adult Wellness Visit 09/28/2024 09/28/2023 Depression Screening 12/21/2024 12/22/2023 HbA1c 02/01/2025 08/03/2024, 03/30, 12/15/2023, Additional history exists Diabetic Eye Exam 03/06/2025 03/06/2024, , 08/24/2023, Additional history exists GFR 03/14/2025 09/14/2024, 05/30, 04/19/2024, Additional history exists Colonoscopy 05/03/2025 05/03/2024, 0912/2023, 12/10/2022, Additional history exists Colorectal Cancer Screening 05/03/2025 O2 ASSESSMENT COMPLETED IN PAST YEAR FOR COPD 05/03/2025 05/03/2024 Albumin/Creatinine Ratio 09/07/2025 025, 09/09/2023, 07/02/2022 Diabetic Foot Exam 09/07/2025 09/07/2024, 1 , 06/16/2023 CKD HGB USE SMARTSET 45356 09/14/202509/14, 09/14/2024, 08/20/2024, Additional history exists DTap/Tdap Vaccines (2 - Td or Tdap) 03/17/2031 03/17/2021 Alpha-1 Antitrypsin Completed 03/15/2022 AAA Screening Completed 12/07/2022, 05/30, 02/15/2019, Additional history exists Pneumococcal Vaccine: 50+ Years Completed 12/07/2022, 09/08/2020 RETIRED - COLONOSCOPY-ANNUAL AGES 18-100 Discontinued 05/03/2024, 05/03/2024, 12/10/2022, Additional history exists COVID-19 Vaccine Completed 05/22/2024, , 06/16/2023, Additional history exists Influenza Vaccine (FLU shot) [...] Primary documented in this encounter Advance Directives * [...] Power of Attor kwabena? No Care Teams Plan Checker Relationship Specialty Start Date End Date Javy Moscoso DO [address] [place] [address] PCP - General Family Medicine 07/04/23 documented as of this encounter
--- OUTSIDE RECORDS SUMMARY | 2024-11-03 09:36 | External Medical Summary ---
Author Name Unknown Address Unknown Organization K01:[facility] [place] [address] [facility] [address] Laboratory Report Ordering Provider Test Date Status HOUSTON ADEN 11/01/2024 14:35:40 Final Observation Date Value Abnormality Reference (Units ) Status SYNC LEUKOCYTES IN BLOOD BY AUTOMATED COUNT 11/01/2024 14:35:40 7.31 4.00-10.80 (K/uL) Final Segs 11/01/2024 14:35:40 80.6 Above high normal 40.0-75.0 (%) Final Lymphs % 11/01/2024 14:35:40 10.8 Below low normal 18.0-42.0 (%) Final Monos 11/01/2024 14:35:40 6.0 1.0-11.0 (%) Final Eosinophils 11/01/2024 14:35:40 1.4 0.0-6.0 (%) Final Basos 11/01/2024 14:35:40 0.7 0.0-2.0 (%) Final Immature Granulocyte, Percent 11/01/2024 14:35:40 0.5 0.0-2.0 (%) Final Absolute Segs 11/01/2024 14:35:40 5.89 1.80-7.70 (K/uL) Final Lymphs, absolute 11/01/2024 14:35:40 0.79 Below low normal 1.00-4.80 (K/ul) Final Monos, Abs 11/01/2024 14:35:40 0.44 0.00-1.10 (K/uL) Final Eos, Abs 11/01/2024 14:35:40 0.10 0.00-0.70 (K/uL) Final Basos, Abs 11/01/2024 14:35:40 0.05 0.00-0.20 (K/uL) Final Immature Granulocytes, Number 11/01/2024 14:35:40 0.04 0.00-0.20 (K/uL) Final Performing Location [facility] [place] [facility] [address] [facility] [address]
--- OUTSIDE RECORDS SUMMARY | 2024-11-03 09:36 | External Medical Summary ---
Author Name Unknown Address Unknown Organization K01:[facility] [place] [address] [place] [facility] [place] [address] Laboratory Report Ordering Provider Test Date Status HOUSTON ADEN 11/01/2024 14:35:40 Final Observation Date Value Abnormality Reference (Units ) Status BUN 11/01/2024 14:35:40 55 Above high normal 6-20 (mg/dL) Final Creatinine 11/01/2024 14:35:40 2.0 Above high normal 0.6-1.2 (mg/dL) Final Glomerular filtration rate/1.73 sq M.predicted [Volume Rate/Area] in Serum, Plasma or Blood by Creatinine-based formula (CKD-EPI) 11/01/2024 14:35:40 36 Below low normal >=60 (mL/min) Final eGFR is calculated based on the CKD-EPI 2020 equation. Sodium 11/01/2024 14:35:40 137 135-146 (m mol/L) Final Potassium 11/01/2024 14:35:40 4.3 3.5-5.1 (m mol/L) Final Cl 11/01/2024 14:35:40 100 98-107 (mm ol/L) Final CO2 11/01/2024 14:35:40 26 22-32 (mmo l/L) Final Anion gap 11/01/2024 14:35:40 11 7-15 (mmol /L) Final Glucose 11/01/2024 14:35:40 202 Above high normal 70 -120 (mg/dL) Final Albumin 11/01/2024 14:35:40 3.7 Below low normal 3.8 -5.0 (g/dL) Final AST (Aspartate aminotransferase) 11/01/2024 14:35:40 15 10-50 (U/L) Fin al Alk Phos 11/01/2024 14:35:40 43 35-130 (U/ L) Final Bilirubin, Total 11/01/2024 14:35:40 0.2 <=1 .2 (mg/dL) Final Calcium 11/01/2024 14:35:40 8.4 8.4-10.2 ( mg/dL) Final Protein 11/01/2024 14:35:40 5.3 Below low normal 6.0 -8.3 (g/dL) Final ALT (Alanine aminotransferase) 11/01/2024 14:35:40 20 10-50 (U/L) Adan vences Performing Location [facility] [place] [address] [facility] [address]
--- OUTSIDE RECORDS SUMMARY | 2024-11-03 09:36 | External Medical Summary | Summary of Care ---
Author Name Unknown Organization [facility] Address [address] [place] [address] Phone [phone] Care Team Providers Care Application Consultant Name Role Phone Javy Moscoso DO Primary Care Provider [phone] Encounter Details Date Type Department Care Team (Late st Contact Info) Description 10/09/2024 Population Health External Data Unspecified Department Allergies Active Allergy Reactions Criticality Noted Date Comments Lisinopril Unknown Low 11/15/2022 Verapamil Medium 06/26/2020 Heart Block documented as of this encounter (statuses as of 10/10/2024) Medications CPAP every night at bedtime. Active Acetaminophen 500 MG Oral Tablet (Tylenol) Take 1 to 2 tablets by mouth every 6 hours as needed 2 Active OneTouch Ultra 2 w/Device Kit USE [...] every 10 days. E11.9 Active Dexcom G7 Research Chemical Engineer Device Use as directed. Use as directed [...] 2 times a day. 60 mL 5 10/08/2024 11:30 AM EST 4 Active Gabapentin 300 MG Oral Capsule (Neurontin)Indic ations:Spinal stenosis of lumbar region without neurogenic claudication Take 1 Capsule by mouth in the morning. 90 Capsule 3 10/10/2024 11:09 AM EST 4 Active Vitamin D (Ergocalciferol) 1.25 MG (92609 UT) Oral Capsule (Drisdol)Indicat ions:Vitamin D deficiency Take 1 Capsule by mouth Every Month. 6 Capsule 3 10/10/2024 9:24 AM EST 4 Active PreserVision AREDS 2+Multi Vit Oral Capsule Take 1 Capsule by mouth in the morning and 1 Capsule before bedtime. 180 Capsule 3 4 Active Carvedilol 25 MG Oral Tablet (Coreg)Indicatio ns:HTN, goal below 140/90 Take 1/2 Tablet by mouth 2 times a day with morning and evening meals. 180 Tablet 3 10/10/2024 9:24 AM EST 4 Active metFORMIN HCl ER 500 MG Oral Tablet Extended Release 24 Hour (Glucophage XR)Indications:T ype 2 diabetes mellitus with stage 3b chronic kidney disease, without long-term current use of insulin (HCC) Take 1 Tablet by mouth daily. 90 Tablet 3 10/10/2024 9:24 AM EST 4 Active Additional Information Patient taking differently:500 mg OralDaily(AM), Reported on 09/07/2024 Empagliflozin 25 MG Oral Tablet (Jardiance)Indic ations:Type 2 diabetes mellitus with hyperglycemia, without long-term current use of insulin (HCC),Type 2 diabetes mellitus with stage 3b chronic kidney disease, without long-term current use of insulin (HCC) Take 1 Tablet by mouth in the morning. 90 Tablet 3 10/10/2024 9:24 AM EST 4 Active Gabapentin 600 MG Oral Tablet (Neurontin) TAKE ONE TABLET BY MOUTH TWICE A DAY AT NOON AND AT BEDTIME IN ADDITION TO A 100MG DOSE IN THE MORNING 180 Tablet 1 10/10/2024 9:24 AM EST 4 Active Xultophy 100-3.6 UNIT-MG/ML Subcutaneous Solution Pen-injector (Insulin Degludec-Liraglu tide) Inject up to 44 units under the skin daily per [facility] [facility]. 45 mL 3 08/23/2024 12:03 PM EST 4 Active Additional Information Patient taking differently: 38 Units Subcutaneous HS, per [facility], Reported on 09/20/2024 [place] 31G X 5 MMIndications:Ty pe 2 diabetes mellitus with hyperglycemia, with long-term current use of insulin (HCC) Use as directed with glargine insulin once daily 300 Each 3 4 Active Triamcinolone Acetonide 0.1 % External Cream (Aristocort)Nettie cations:Intrinsi c atopic dermatitis Apply topically to affected area 2 times a day. 60 g 5 09/10/2024 4:22 PM EST Active tiZANidine HCl 2 MG Oral Tablet (Zanaflex)Indica tions:Spinal stenosis of lumbar region without neurogenic claudication Take 1 Tablet by mouth at bedtime as needed for Muscle spasms. 90 Tablet 1 09/10/2024 4:22 PM EST Active Losartan Potassium 100 MG Oral Tablet (Cozaar)Indicati ons:HTN, goal below 140/90 Take 1 Tablet by mouth in the morning. 90 Tablet 1 09/10/2024 4:22 PM EST Active Hospital, Clinic, or Other Facility Administered Medication Ordered Dose Route Frequency Start Date End Date Status Albuterol Sulfate (Proventil) (2.5 MG/3ML) 0.083% inhalation solution 2.5 mgIndications:ILD (interstitial lung disease) (HCC),BEARDEN (dyspnea on exertion) 2.5 mg NEBULIZER Q4H PRN 12/12/2023 Act jose documented as of this encounter (statuses as of 10/10/2024) Active Problems Problem Noted Date Diagnosed Date [...] 12/07/2022 Bilateral impacted cerumen 10/22/2022 Atherosclerosis of [place] ronary artery without angina pectoris 07/15/2022 [...] as of this encounter (statuses as of 10/10/2024) Resolved Problems Problem Noted Date Diagnosed Date [...] as of this encounter (statuses as of 10/10/2024) Immunizations Name Administration Dates Next Due COVID-19 mRNA, LNP-s, No Pre serve, 2-Dose Series ([employer]) 07/03/2021,12/27/2020,12/06/2020 COVID-19, MRNA-LNP, PF, 30 M CG/0.3 mL, 12 YRS AND ABOVE, IM (PFIZER-Comirnaty) 05/22/2024,02/22/2024,06/16/2023 Pneumococcal Conjugate Vacci ne, 20-valent ([id number]) 12/07/2022 Pneumococcal Polysaccharide PPV23 (Pneumovax) 09/08/2020 RSV [...] No 02/15/2019 2:08 AM Alexandr Hernandez RN * Are you blind or do you have serious difficulty seeing, even when wearing glasses? Answer Date of Assessment Author No 02/15/2019 2:08 AM Alexandr Hernandez RN * Do you have serious difficulty walking or climbing stairs? (5 years old or older) Answer Date of Assessment Author No 02/15/2019 2:08 AM Alexandr Hernandez RN * Do you have difficulty dressing or bathing? (5 years old or older) Answer Date of Assessment Author No 02/15/2019 2:08 AM Alexandr Hernandez RN * Because of a physical, mental, or emotional condition, do you have difficulty doing errands alone such as visiting a doctors office or shopping? (15 years old or older) Answer Date of Assessment Author No 02/15/2019 2:08 AM Alexandr Hernandez A, RN documented as of this encounter Mental Status * Because of a physical, mental, or emotional condition, do you have serious difficulty concentrating, remembering, or making decisions? (5 years old or older) Answer Entry Date Author No 02/15/2019 2:08 AM EDT Alexandr Gutiérrez RN documented in this encounter Plan of Treatment Upcoming Encounters Date Type Department Care Team (Late st Contact Info) Description 11/30/2024 9:30 AM EDT Office Visit Gastroenterology, [facility] [address] [place] [address] Teddy Mullen CRNP [address] [place] [address] 12/03/2024 8:10 AM EDT Laboratory [facility], [address] [phone] [place], [facility] [place] [address] [place] [address] 12/06/2024 8:40 AM EDT Office Visit Family Practice [facility] [place] [address] [place] [address] Javy Moscoso, DO [address] [place] [place] [address] 02/15/2025 10:00 AM EDT Office Visit Sleep Disorders Ctr [facility] [address] [place] [address] Debby Cornejo, DO [address] [place] [address] 03/04/2025 8:20 AM EDT Laboratory Laboratory Patient Service [place], [address] [phone] [place], Lab [place] [address] [place] [address] 03/14/2025 9:00 AM EDT Office Visit [facility]ology[facility] [facility] [place] [address] [facility] [place] [phone] Katt Mullen CRNP [address] [facility] [place] [address] 04/10/2025 10:40 AM EDT Office Visit [place]rology, [facility] [place] [address] [facility] [place] [address] Augusto Lerner MD [address] [facility] [place] [address] Scheduled Procedures Name Priority Associated Diagnoses Date/Ti me COLONOSCOPY FLEXIBLE PROXIMA L DIAGNOSTIC Recall History of colonic polyps Health Maintenance Due Date Last Done Comments Cologuard 01/12/1997 Sigmoidoscopy 01/12/1997 Fecal Occult Blood Test 11/18/2023 11/18/19 23, 11/17/2022, 03/16/2022, Additional history exists CKD PHOS USE SMARTSET 29824 05/05/2024 090 02/2023, 02/02/2023, 01/11/2022, Additional history exists Adult Wellness Visit 09/28/2024 09/28/2023 Depression Screening 12/21/2024 12/22/2023 HbA1c 02/01/2025 08/03/2024, 03/30, 12/15/2023, Additional history exists Diabetic Eye Exam 03/06/2025 03/06/2024, , 08/24/2023, Additional history exists GFR 03/14/2025 09/14/2024, 05/30, 04/19/2024, Additional history exists Colonoscopy 05/03/2025 05/03/2024, 12/2023, 12/10/2022, Additional history exists Colorectal Cancer Screening 05/03/2025 O2 ASSESSMENT COMPLETED IN PAST YEAR FOR COPD 05/03/2025 05/03/2024 Albumin/Creatinine Ratio 09/07/2025 025, 09/09/2023, 07/02/2022 Diabetic Foot Exam 09/07/2025 09/07/2024, 1 , 06/16/2023 CKD HGB USE SMARTSET 76067 09/14/202509/14, 09/14/2024, 08/20/2024, Additional history exists DTap/Tdap [...] Power of Attor kwabena? No Care Teams Application Consultant Relationship Specialty Start Date End Date Javy Moscoso DO [address] [place] [address] PCP - General Family Medicine 07/04/23 documented as of this encounter
--- OUTSIDE RECORDS SUMMARY | 2024-11-03 09:36 | External Medical Summary | Summary of Care ---
Author Name Unknown Organization [facility] Address [address] [place] [address] Phone [phone] Care Team Providers Care Supervisor Vendor Quality Name Role Phone Javy Moscoso DO Primary Care Provider [phone] Reason for Visit * Reason Comments Outpatient Testing Encounter Details Date Type Department Care Team (Latest Contact Info) Description 11/01/2024 3:10 PM EST Laboratory Laboratory, [place] [address] [place] [address] [place], [facility] [address] [place] [address] Atherosclerosis of [place] coronary artery of [place] heart without angina pectoris; Dyslipidemia, goal LDL below 70; Stage 3a chronic kidney disease ([facility]); AVM (arteriovenous malformation) of small bowel, acquired; Iron deficiency anemia due to chronic blood loss; 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 ([facility]); Type 2 diabetes mellitus with stage 3b chronic kidney disease, with long-term current use of insulin ([facility]) Allergies Active Allergy Reactions Criticality Noted Date Comments Lisinopril Unknown Low 11/15/2022 Verapamil Medium 06/26/2020 Heart Block documented as of this encounter (statuses as of 11/01/2024) Medications CPAP every night at bedtime. Active Acetaminophen 500 MG Oral Tablet (Tylenol) Take 1 to 2 tablets by mouth every 6 hours as needed 2 Active OneTouch Ultra 2 w/Device Kit USE DIRECTED TO TEST BLOOD SUGARS 1 Each 09/09/2023 11:01 AM EST 4 Active Vitamin B-12 2500 MCG Sublingual Tablet Sublingual Place 1 Tablet under the tongue in the morning. Active Dexcom G7 Sensor Use as directed. Use as directed to monitor blood sugars daily. Replace sensor every 10 days. E11.9 Active Dexcom G7 Valve Repairer Device Use as directed. Use as directed [...] 4 Active Vitamin D (Ergocalciferol) 1.25 MG (73358 UT) Oral Capsule (Drisdol)Indicat ions:Vitamin D deficiency [...] the skin daily per titration chart from [facility]. 45 mL 3 08/23/2024 12:03 PM EST 4 Active Additional Information Patient taking differently: 38 Units Subcutaneous HS, per [facility] clinic, Reported on 09/20/2024 Pen [place] 31G X 5 MMIndications:Ty pe 2 diabetes mellitus with hyperglycemia, with long-term current use of insulin ([facility]) Use as directed with glargine insulin once [...] 1 09/10/2024 4:22 PM EST 5 Active Torsemide 20 MG Oral Tablet (Demadex)Indicat ions:HTN, goal below 140/90 TAKE ONE TABLET BY MOUTH EVERY MORNING 90 Tablet 3 10/23/2024 9:11 AM EST 5 026 Active Hospital, Clinic, or Other Facility Administered Medication Ordered Dose Route Frequency Start Date End Date Status Albuterol Sulfate (Proventil) (2.5 MG/3ML) 0.083% inhalation solution 2.5 mgIndications:ILD (interstitial lung disease) ([facility]),BEARDEN (dyspnea on exertion) 2.5 mg NEBULIZER Q4H PRN 12/12/2023 Act jose documented as of this encounter (statuses as of 11/01/2024) Active Problems Problem Noted Date Diagnosed Date [...] 12/07/2022 Bilateral impacted cerumen 10/22/2022 Atherosclerosis of [place] co ronary artery without angina pectoris 07/15/2022 [...] as of this encounter (statuses as of 11/01/2024) Resolved Problems Problem Noted Date Diagnosed Date [...] as of this encounter (statuses as of 11/01/2024) Immunizations Name Administration Dates Next Due COVID-19 mRNA, LNP-s, No Pre serve, 2-Dose Series (payever) 07/03/2021,12/27/2020,12/06/2020 COVID-19, MRNA-LNP, PF, 30 M CG/0.3 mL, 12 YRS AND ABOVE, IM (PFIZER-Comirnaty) 05/22/2024,02/22/2024,06/16/2023 Pneumococcal Conjugate Vacci ne, 20-valent ([id number]) 12/07/2022 Pneumococcal Polysaccharide PPV23 (Pneumovax) 09/08/2020 RSV [...] No 12/22/2023 Does the household have a [facility] [place] source of income? (Household - for ages [...] 2:08 AM EDT Alexandr Gutiérrez RN documented as of this encounter Mental [...] 11/30/2024 9:30 AM EDT Office Visit Gastroenterology, [facility] [address] [place] [address] Teddy Mullen CRNP [address] [place] [address] 12/03/2024 8:10 AM EDT Laboratory Laboratory Patient Service [address] [phone] [address] 12/06/2024 8:40 AM EDT Office Visit Family Practice [address] [place] [address] [place] [address] Javy Moscoso DO [address] [place] [address] 02/15/2025 10:00 AM EDT Office Visit [facility] Disorders Ctr [place] [place] [address] [place] [phone] Debby Cornejo DO [address] [place] [address] 03/04/2025 8:20 AM EDT Laboratory Laboratory Patient Service [address] [phone] [place], Lab [address] [address] 03/14/2025 9:00 AM EDT Office Visit Hematology/Oncology [facility] [place] [address] [facility] [place] [phone] Katt Mullen CRNP [address] [place] [address] 04/10/2025 10:40 AM EDT Office Visit Nephrology, [facility] [address] [facility] [place] [address] Augusto Lerner MD [address] [facility] [place] [address] Pending Results Name Type Priority Associated Diagnoses Date /Time LIPID PANEL WITH DIRECT LDL IF TG IS HIGH Lab Routine Atherosclerosis of [place] coronary artery of [place] heart without angina pectoris Dyslipidemia, goal LDL below 70 11/01/2024 2:35 PM EST PHOSPHORUS Lab Routine Stage 3a chronic kidney disease (HCC) 11/01/2024 2:35 PM EST CBC WITH WBC DIFFERENTIAL Lab Routine AVM (arteriovenous malformation) of small bowel, 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 11/01/2024 2:35 PM EST IRON SCREEN, INCLUDING TIBC Lab Routine AVM (arteriovenous malformation) of small bowel, 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 11/01/2024 2:35 PM EST COMPREHENSIVE METABOLIC PANEL Lab Routine 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 stage 3b chronic kidney disease, with long-term current use of insulin ([facility]) Dyslipidemia, goal LDL below 70 11/01/2024 2:35 PM EST CBC Lab Routine AVM (arteriovenous malformation) of small bowel, 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 11/01/2024 2:35 PM EST DIFFERENTIAL, AUTOMATED Lab Routine AVM (arteriovenous malformation) of small bowel, 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 11/01/2024 2:35 PM EST Scheduled Procedures Name Priority Associated Diagnoses Date/Ti me COLONOSCOPY FLEXIBLE PROXIMA L DIAGNOSTIC Recall History of colonic polyps Health Maintenance Due Date Last Done Comments Cologuard 01/12/1997 Sigmoidoscopy 01/12/1997 Fecal Occult Blood Test 11/18/2023 11/18/19 23, 11/17/2022, 03/16/2022, Additional history exists CKD PHOS USE SMARTSET 01803 05/05/2024 09/0 02/2023, 02/02/2023, 01/11/2022, Additional history [...] 1 , 06/16/2023 CKD HGB USE SMARTSET 83297 09/14/202509/14, 09/14/2024, 08/20/2024, Additional history exists DTap/Tdap [...] this encounter Visit Diagnoses Diagnosis Atherosclerosis of [place] coronary artery of [place] heart without angina pectoris Dyslipidemia, goal LDL below 70 Other and unspecified hyperlipidemia Stage 3a chronic kidney disease (HCC) AVM (arteriovenous malformation) of small bowel, 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 No Care Teams Supervisor Vendor Quality Relationship Specialty Start Date End Date Javy Moscoso DO [address] [place] [address] PCP - General Family Medicine 07/04/23 documented as of this encounter
--- OUTSIDE RECORDS SUMMARY | 2024-11-03 09:36 | External Medical Summary ---
Author Name Unknown Address Unknown Organization K01:[facility] [place] [facility] [address] [facility] [address] Laboratory Report Ordering Provider Test Date Status ELAINE ADENEO 11/01/2024 14:35:40 Final Observation Date Value Abnormality Reference (Units ) Status Triglyceride 11/01/2024 14:35:40 114 <=174 ( mg/dL) Final Triglyceride Reference Range s (mg/dL):
<150 Acceptable
150-174 Borderline high
175-499 High
>=500 Very high Cholesterol 11/01/2024 14:35:40 80 <200 (mg /dL) Final Total Cholesterol Reference Ranges (mg/dL):
<200 Desirable
200-239 Borderline high
>=240 High HDL 11/01/2024 14:35:40 27 Below low normal >39 (mg/dL) Final HDL Cholesterol Reference Ra nges (mg/dL):
>=60 High (Desirable)
<50 Low (Undesirable) For Females
<40 Low (Undesirable) For Males NON-HDL CHOLESTEROL 11/01/2024 14:35:40 53 <=159 (mg/dL) Final Non-HDL Cholesterol Referenc e Range (mg/dL):
<100 Target level for high risk ASCVD patient
<130 Optimal for general population
130-159 Near optimal for general population
160-189 Borderline High
190-219 High
>=220 Very High LDL, (calculated) 11/01/2024 14:35:40 30 <= 129 (mg/dL) Final LDL Cholesterol Reference Ra nges (mg/dL):
<70 Target level for high risk ASCVD patient
<100 Optimal for general population
100-129 Near optimal for general population
130-159 Borderline high
160-189 High
>=190 Very high Performing Location [facility] [place] [address] [facility] [address]
--- OUTSIDE RECORDS SUMMARY | 2024-11-03 09:36 | External Medical Summary | Summary of Care ---
Author Name Unknown Organization [facility] Address [address] [place] [address] Phone [phone] Care Team Providers Care Manager Fixed Income Name Role Phone Javy Moscoso DO Primary Care Provider + [phone] Reason for Visit * Reason Comments Medication Refill Encounter Details Date Type Department Care Team (Late st Contact Info) Description 10/20/2024 Refill Cardiology, [facility] 132 [facility] [place] [address] Fatoumata Rogers PA-C [address] [place] [address] [place] Curtis [address] HTN, goal below 140/90 Allergies Active Allergy Reactions Criticality Noted Date Comments Lisinopril Unknown Low 11/15/2022 Verapamil Medium 06/26/2020 Heart Block documented as of this encounter (statuses as of 10/22/2024) Medications CPAP every night at bedtime. Active Acetaminophen 500 MG Oral Tablet (Tylenol) Take 1 to 2 tablets by mouth every 6 hours as needed 03/09/20 22 Active Your Practical SolutionsTouch Ultra 2 w/Device Kit USE DIRECTED TO TEST BLOOD SUGARS 1 Each 4 11:01 AM EST 09/08/19 24 Active Vitamin B-12 2500 MCG Sublingual Tablet Sublingual Place 1 Tablet under the tongue in the morning. Active Dexcom G7 Sensor Use as directed. Use as directed to monitor blood sugars daily. Replace sensor every 10 days. E11.9 Active Dexcom G7 Septic Cleaner Device Use as directed. Use as directed [...] 5 5 11:30 AM EST 04/16/20 24 Active Gabapentin 300 MG Oral Capsule (Neurontin)Indic ations:Spinal stenosis of lumbar region without neurogenic claudication Take 1 Capsule by mouth in the morning. 90 Capsule 3 5 11:09 AM EST 05/01/20 24 Active Vitamin D (Ergocalciferol) 1.25 MG (78782 UT) Oral Capsule (Drisdol)Indicat ions:Vitamin D deficiency [...] Tablet 3 5 9:24 AM EST 07/17/20 Active Additional Information Patient taking differently:500 mg [...] the skin daily per titration chart from [facility] clinic. 45 mL 3 4 12:03 PM EST 08/03/20 Active Additional Information Patient taking differently: 38 Units Subcutaneous HS, per [facility] clinic, Reported on 09/20/2024 Pen [place] 31G X 5 MMIndications:Ty pe 2 diabetes mellitus with hyperglycemia, with long-term current use of insulin (HCC) Use as directed with glargine insulin once daily 300 Each 3 08/27/20 24 Active Triamcinolone Acetonide 0.1 % External Cream (Aristocort)Nettie cations:Intrinsi c atopic dermatitis Apply topically to affected area 2 times a day. 60 g 5 5 4:22 PM EST 09/07/19 25 Active tiZANidine HCl 2 MG Oral [...] BY MOUTH EVERY MORNING 90 Tablet 3 10/22/19 25 026 Active Torsemide 20 MG Oral Tablet (Demadex)Indicat ions:HTN, goal below 140/90 TAKE ONE TABLET BY MOUTH EVERY MORNING 90 Tablet 3 4 11:50 AM EST 11/02/19 24 025 Discontin ued(Refil l) Hospital, Clinic, or Other Facility Administered Medication Ordered Dose Route Frequency Start Date End Date Status Albuterol Sulfate (Proventil) (2.5 MG/3ML) 0.083% inhalation solution 2.5 mgIndications:ILD (interstitial lung disease) (HCC),BEARDEN (dyspnea on exertion) 2.5 mg NEBULIZER Q4H PRN 12/12/2023 Act jose documented as of this encounter (statuses as of 10/22/2024) Active Problems Problem Noted Date Diagnosed Date [...] as of this encounter (statuses as of 10/22/2024) Resolved Problems Problem Noted Date Diagnosed Date [...] as of this encounter (statuses as of 10/22/2024) Immunizations Name Administration Dates Next Due COVID-19 mRNA, LNP-s, No Pre serve, 2-Dose Series ([employer]) 07/03/2021,12/27/2020,12/06/2020 COVID-19, MRNA-LNP, PF, 30 M CG/0.3 mL, 12 YRS AND ABOVE, IM (PFIZER-Comirnaty) 05/22/2024,02/22/2024,06/16/2023 Pneumococcal Conjugate Vacci ne, 20-valent ([id number]) 12/07/2022 Pneumococcal Polysaccharide PPV23 (Pneumovax) 09/08/2020 RSV [...] Assessment Author No 02/15/2019 2:08 AM EDT Brock, Ke lsey A, RN * Do you have serious difficulty [...] Alexandr Gutiérrez RN documented in this encounter Miscellaneous Notes * Telephone Encounter - Stefan Gandhi RPh - 10/22/2024 9:16 AM ESTSigned Prescriptions: Disp Refills Torsemide 20 MG Oral Tablet (Demadex) 90 Tab*3 Sig: TAKE ONE TABLET BY MOUTH EVERY MORNINGAuthorizing Provider: FATOUMATA ROGERS User: STEFAN GANDHI-- documented in this encounter Plan of Treatment Upcoming Encounters Date Type Department Care Team (Late st Contact Info) Description 11/30/2024 9:30 AM EDT Office Visit Gastroenterology, [facility] 132 [place] Carter [address] Teddy Mullen CRNP 132 [place] [address] 12/03/2024 8:10 AM EDT Laboratory [facility] [place] [address] [place] [address] [place], Lab [facility] [address] [place] [address] 12/06/2024 8:40 AM EDT Office Visit Family [facility] 65 [facility] [address] [place] Mcc[place] [address] Javy Moscoso, DO [address] [place] [address] 02/15/2025 10:00 AM EDT Office Visit Sleep Disorders Ctr [facility] 132 [facility] [place] [phone] Debby Cornejo, [facility] [place] [address] 03/04/2025 8:20 AM EDT Laboratory Laboratory [facility] [place], [place] [address] [place] [address] [place], [facility] [address] [place] [address] 03/14/2025 9:00 AM EDT Office Visit Hematology/Oncology [facility] 200 [facility] [place] Sharma [address] Katt Mullen CRNP [address] [place] [address] [place] CURTIS [address] 04/10/2025 10:40 AM EDT Office Visit Nephrology, [facility] [address] [place] [address] Augusto Lerner MD 200 [facility] [place] Sharma [address] Scheduled Procedures Name Priority Associated Diagnoses Date/Ti me COLONOSCOPY FLEXIBLE PROXIMA L DIAGNOSTIC Recall History of colonic polyps Health Maintenance Due Date Last Done Comments Cologuard 01/12/1997 Sigmoidoscopy 01/12/1997 Fecal Occult Blood Test 11/18/2023 11/18/19 23, 11/17/2022, 03/16/2022, Additional history exists CKD PHOS USE SMARTSET 72528 05/05/2024 09/0 02/2023, 02/02/2023, 01/11/2022, Additional history [...] 1 , 06/16/2023 CKD HGB USE SMARTSET 08632 09/14/202509/14, 09/14/2024, 08/20/2024, Additional history exists DTap/Tdap [...] encounter Visit Diagnoses Diagnosis HTN, goal below 140/90 Unspecified essential hypertension documented in this encounter Advance Directives * [...] Power of Attor kwabena? No Care Teams Manager Fixed Income Relationship Specialty Start Date End Date Javy Moscoso DO [address] [place] Mccarthy [address] PCP - General Family Medicine 07/04/23 documented as of this encounter
--- OUTSIDE RECORDS SUMMARY | 2024-11-03 09:36 | External Medical Summary ---
Author Name Unknown Address Unknown Organization K01:[facility] [address] [place] [address] Laboratory Report Ordering Provider Test Date Status HOUSTON ADEN 11/01/2024 14:35:40 Final Observation Date Value Abnormality Reference (Units ) Status Phosphate 11/01/2024 14:35:40 3.3 2.5-4.8 (m g/dL) Final Performing Location [facility] - [address] [place] [address]
--- OUTSIDE RECORDS SUMMARY | 2024-11-03 09:36 | External Medical Summary ---
Author Name Unknown Address Unknown Organization K01:[facility] [address] [place] [address] Laboratory Report Ordering Provider Test Date Status HOUSTON ADEN 11/01/2024 14:35:40 Final Observation Date Value Abnormality Reference (Units ) Status Iron 11/01/2024 14:35:40 130 45-176 (ug /dL) Final Iron-binding capacity 11/01/2024 14:35:40 256 250-425 (ug/dL) Final Transferrin Sat % 11/01/2024 14:35:40 51 15 -55 (%) Final Performing Location [facility] [place] [address] [place] [address]
--- OUTSIDE RECORDS SUMMARY | 2024-11-03 09:37 | External Medical Summary | Summary of Care ---
Author Name Unknown Organization [facility] Address [address] [place] [address] Phone [phone] Care Team Providers Care Transit Survey Worker Name Role Phone Javy Moscoso DO Primary Care Provider Reason for Visit * Reason Onset Date Comments Other 09/17/2024 Low blood sugar Encounter Details Date Type Department Care Team (Late st Contact Info) Description 09/17/2024 Telephone Family Practice 65 [facility] [address] [place] [address] Javy Moscoso DO [address] [place] [address] Other (Low blood sugar) Allergies Active Allergy Reactions Criticality Noted Date Comments Lisinopril Unknown Low 11/15/2022 Verapamil Medium 06/26/2020 Heart Block documented as of this encounter (statuses as of 09/18/2024) Medications CPAP every night at bedtime. Active Acetaminophen 500 MG Oral Tablet (Tylenol) Take 1 to 2 tablets by mouth every 6 hours as needed 03/09/20 22 Active OneTouch Ultra 2 w/Device Kit USE DIRECTED TO TEST BLOOD SUGARS 1 Each 4 11:01 AM EST 09/08/19 24 Active Torsemide 20 MG Oral Tablet (Demadex)Indicati ons:HTN, goal below 140/90 TAKE ONE TABLET BY MOUTH EVERY MORNING 90 Tablet 3 4 11:50 AM EST 11/02/19 24 025 Active Vitamin B-12 2500 MCG Sublingual Tablet Sublingual Place 1 Tablet under the tongue in the morning. Active Dexcom G7 Sensor Use as directed. Use as directed to monitor blood sugars daily. Replace sensor every 10 days. E11.9 Active Dexcom G7 Boring Machine Operator Horizontal Device Use as directed. Use as directed [...] times a day. 60 mL 5 5 2:07 PM EST 04/16/20 24 Active Gabapentin 300 MG Oral Capsule (Neurontin)Indica tions:Spinal stenosis of lumbar region without neurogenic claudication Take 1 Capsule by mouth in the morning. 90 Capsule 3 4 10:56 AM EST 05/01/20 24 Active Vitamin D (Ergocalciferol) 1.25 MG (76165 UT) Oral Capsule (Drisdol)Indicati ons:Vitamin D deficiency Take 1 Capsule by mouth Every Month. 6 Capsule 3 4 6:55 AM EDT 06/08/20 24 Active PreserVision AREDS 2+Multi Vit Oral Capsule Take 1 Capsule by mouth in the morning and 1 Capsule before bedtime. 180 Capsule 3 06/08/20 24 Active Carvedilol 25 MG Oral Tablet (Coreg)Indication s:HTN, goal below 140/90 Take 1/2 Tablet by mouth 2 times a day with morning and evening meals. 180 Tablet 3 4 4:00 PM EST 07/17/20 24 Active metFORMIN HCl ER 500 MG Oral Tablet Extended Release 24 Hour (Glucophage XR)Indications:Ty pe 2 diabetes mellitus with stage 3b chronic kidney disease, without long-term current use of insulin (HCC) Take 1 Tablet by mouth daily. 90 Tablet 3 4 4:00 PM EST 07/17/20 24 Active Additional Information Patient taking differently:500 mg OralDaily(AM), Reported on 09/07/2024 Empagliflozin 25 MG Oral Tablet (Jardiance)Indica tions:Type 2 diabetes mellitus with hyperglycemia, without long-term current use of insulin (HCC),Type 2 diabetes mellitus with stage 3b chronic kidney disease, without long-term current use of insulin (HCC) Take 1 Tablet by mouth in the morning. 90 Tablet 3 4 10:56 AM EST 07/16/20 24 Active Gabapentin 600 MG Oral Tablet (Neurontin) TAKE ONE TABLET BY MOUTH TWICE A DAY AT NOON AND AT BEDTIME IN ADDITION TO A 100MG DOSE IN THE MORNING 180 Tablet 1 4 12:44 PM EST 07/27/20 24 Active Xultophy 100-3.6 UNIT-MG/ML Subcutaneous Solution Pen-injector (Insulin Degludec-Liraglut jeaneth) Inject up to 44 units under the skin daily per titration chart from [facility] clinic. 45 mL 3 4 12:03 PM EST 08/03/20 24 Active Zoster Vac Recomb Adjuvanted 50 MCG/0.5ML Intramuscular Suspension Reconstituted (Shingrix)Indicat ions:Need for vaccination for zoster Inject 0.5 mL into a large muscle now and repeat dose in 60 to 180 days 1 Each 4 10:06 AM EST 08/03/20 24 Active Pen [place] 31G X 5 MMIndications:Typ e 2 diabetes mellitus with hyperglycemia, with long-term current use of insulin (HCC) Use as directed with glargine insulin once daily 300 Each 3 08/27/20 24 Active Triamcinolone Acetonide 0.1 % External Cream (Aristocort)Indic ations:Intrinsic atopic dermatitis Apply topically to affected area [...] 5 4:22 PM EST 09/10/19 25 Active Insulin Glargine Solostar 100 UNIT/ML Subcutaneous Solution Pen-injector (Lantus SoloStar)Indicati ons:Type 2 diabetes mellitus with hyperglycemia, with long-term current use of insulin (HCC) Taper and transition to Xultophy per [facility] titration chart. 08/03/20 24 025 Discontin ued(Medic ation/Dos e Changed) Hospital, Clinic, or Other Facility Administered Medication Ordered Dose Route Frequency Start Date End Date Status Albuterol Sulfate (Proventil) (2.5 MG/3ML) 0.083% inhalation solution 2.5 mgIndications:ILD (interstitial lung disease) (HCC),BEARDEN (dyspnea on exertion) 2.5 mg NEBULIZER Q4H PRN 12/12/2023 Act jose documented as of this encounter (statuses as of 09/18/2024) Active Problems Problem Noted Date Diagnosed Date [...] 12/07/2022 Bilateral impacted cerumen 10/22/2022 Atherosclerosis of [place] co ronary artery without angina pectoris 07/15/2022 [...] as of this encounter (statuses as of 09/18/2024) Resolved Problems Problem Noted Date Diagnosed Date [...] as of this encounter (statuses as of 09/18/2024) Immunizations Name Administration Dates Next Due COVID-19 mRNA, LNP-s, No Pre serve, 2-Dose Series ([employer]) 07/03/2021,12/27/2020,12/06/2020 COVID-19, MRNA-LNP, PF, 30 M CG/0.3 mL, 12 YRS AND ABOVE, IM (PFIZER-Comirnaty) 05/22/2024,02/22/2024,06/16/2023 Pneumococcal Conjugate Vacci ne, 20-valent ([id number]) 12/07/2022 Pneumococcal Polysaccharide PPV23 (Pneumovax) 09/08/2020 RSV [...] documented in this encounter Miscellaneous Notes * Addendum Note - Hiram Novak RPh - 09/18/2024 2:06 PM EST Addended by: HIRAM NOVAK on: 09/18/2024 02:06 PM Modules accepted: Orders * Telephone Encounter - Hiram Novak RPh - 09/18/2024 2:05 PM EST Patient reports sugars didn't go low last night. Woke up in the 90's. However, did not follow pharmacist's instructions. Gave Xultophy 38 units and Lantus 5 units last night. Patient checked glucose while on phone and BG was 82. Advised to stop lantus and stick with Xultophy 38 units going forward. Hiram López, Pharm D, BCACP Clinical Pharmacist [facility] 09/18/2024, 2:06 PM Ph. [phone] * Telephone Encounter - Meseret Gonzalez [facility] - 09/17/2024 10:19 AM EST Contacts Contact Date/Time Type Contact Phone/Fax 09/17/2024 08:51 AM EST Phone (Incoming) Walker Mancini (Self) [phone] (M) 09/17/2024 10:26 AM EST Phone (Outgoing) Walker Mancini (Self) [phone] (M) Returned call and he has been having lows all weekend in the 40's. He eats a few candy bars to correct the low. Talked about the tapering chart that Hiram sent and he doesn't have it because they couldn't print it out so he has been using the original chart which is most likely why he is running lower than expected. He has been using 13 units Lantus. Discussed that he will take 9 units lantus today and 34 units Xultophy. Will send [facility] message and have her call him tomorrow to discuss on going taper. Also talked about eating dinner at 5 PM and then nothing after this. Suggested a snack later in the evening to try to prevent his BG going to low. Meseret Gonzalez [facility], PharmD, BCACP, BCGP Ambulatory Clinical Pharmacist 65 [facility] 09/17/2024 10:29 AM * Telephone Encounter - Kallie Morgan OSA - 09/17/2024 8:51 AM EST Pt called and states he wants to talk to pharmacist (Aydee) Pt has had low blood sugar last 3 nights bellow 45 Please call [phone] documented in this encounter Plan of Treatment Upcoming Encounters Date Type Department Care Team (Late st Contact Info) Description 09/18/2024 2:10 PM EST Telemedicine Family Practice 65 [facility] 293 [place] [address] College, Pharmacist [address] [address] 09/28/2024 8:00 AM EST Office Visit Family Practice 65 [facility] 293 [place] [address] College, Pharmacist [address] [place] [address] 11/30/2024 9:30 AM EDT Office Visit Gastroenterology, [facility] 132 [facility] [place] ROM[place] [address] Teddy Mullen CRNP 132 [facility] [place] [address] 12/03/2024 8:10 AM EDT Laboratory Laboratory [facility] [place], [address] [phone] [place], Lab [facility] [address] [place] [address] 12/06/2024 8:40 AM EDT Office Visit Family Practice 65 [facility] [address] [place] [address] Javy Moscoso [address] [place] [address] 02/15/2025 10:00 AM EDT Office Visit Sleep Disorders Ctr [facility] 132 [facility] [place] [address] Debby Cornejo, DO 132 [facility] [place] [address] 03/04/2025 8:20 AM EDT Laboratory Laboratory [facility] [place], [address] [address] [place], [facility] [address] [place] [address] 03/14/2025 9:00 AM EDT [facility] [place] 200 [facility] [place] [address] Katt Mullen CRNP [address] [place] [address] 04/10/2025 10:40 AM EDT Office Visit Nephrology, [facility] 200 [facility] [place] [address] Augusto Lerner MD 200 [facility] [place] Sharma [address] Scheduled Procedures Name Priority Associated Diagnoses Date/Ti me COLONOSCOPY FLEXIBLE PROXIMA L DIAGNOSTIC Recall History of colonic polyps Health Maintenance Due Date Last Done Comments Cologuard 01/12/1997 Sigmoidoscopy 01/12/1997 Fecal Occult Blood Test 11/18/2023 11/18/19 23, 11/17/2022, 03/16/2022, Additional history exists CKD PHOS USE SMARTSET 55968 05/05/2024 090 02/2023, 02/02/2023, 01/11/2022, Additional history [...] 1 , 06/16/2023 CKD HGB USE SMARTSET 44312 09/14/202509/14, 09/14/2024, 08/20/2024, Additional history exists DTap/Tdap [...] Diagnoses Diagnosis Type 2 diabetes mellitus with hemoglobin A1c goal of less than 8.0% (HCC)- Primary documented in this encounter Advance [...] Power of Attor kwabena? No Care Teams Transit Survey Worker Relationship Specialty Start Date End Date Javy Moscoso DO [address] [place] Mccarthy [id number] PCP - General Family Medicine 07/04/23 documented as of this encounter
--- OUTSIDE RECORDS SUMMARY | 2024-11-03 09:37 | External Medical Summary | Summary of Care ---
Author Name Unknown Organization [facility] Address [address] [place] [address] Phone [phone] Care Team Providers Care Yarn Texture Machine Operator Name Role Phone Javy Moscoso DO Primary Care Provider [phone] Encounter Details Date Type Department Care Team (Late st Contact Info) Description 09/17/2024 Population Health External Data Unspecified Department Allergies Active Allergy Reactions Criticality Noted Date Comments Lisinopril Unknown Low 11/15/2022 Verapamil Medium 06/26/2020 Heart Block documented as of this encounter (statuses as of 09/17/2024) Medications CPAP every night at bedtime. Active [...] every 10 days. E11.9 Active Dexcom G7 Enthone Solder Stripper Device Use as directed. Use as directed [...] 4 Active Gabapentin 300 MG Oral Capsule (Neurontin)Indica tions:Spinal stenosis of lumbar region without neurogenic claudication Take 1 Capsule by mouth in the morning. 90 Capsule 3 07/18/2024 10:56 AM EST 4 Active Vitamin D (Ergocalciferol) 1.25 MG (51507 UT) Oral Capsule (Drisdol)Indicati ons:Vitamin D deficiency Take 1 Capsule by mouth Every Month. 6 Capsule 3 06/11/2024 6:55 AM EDT 4 Active PreserVision AREDS 2+Multi Vit Oral Capsule Take 1 Capsule by mouth in the morning and 1 Capsule before bedtime. 180 Capsule 3 4 Active Carvedilol 25 MG Oral Tablet (Coreg)Indication [...] the skin daily per titration chart from [facility] clinic. 45 mL 3 08/23/2024 12:03 PM EST 4 Active Zoster Vac Recomb Adjuvanted 50 MCG/0.5ML Intramuscular Suspension Reconstituted (Shingrix)Indicat ions:Need for vaccination for zoster Inject 0.5 mL into a large muscle now and repeat dose in 60 to 180 days 1 Each 08/03/2024 10:06 AM EST 4 Active Insulin Glargine Solostar 100 UNIT/ML Subcutaneous Solution Pen-injector (Lantus SoloStar)Indicati ons:Type 2 diabetes mellitus with hyperglycemia, with long-term current use of insulin (HCC) Taper and transition to Xultophy per [facility] titration chart. 4 Active Pen [place] 31G X 5 MMIndications:Typ e 2 diabetes [...] solution 2.5 mgIndications:ILD (interstitial lung disease) ([facility]),BEARDEN (dyspnea on exertion) 2.5 mg NEBULIZER Q4H PRN 12/12/2023 Act jose documented as of this encounter (statuses as of 09/17/2024) Active Problems Problem Noted Date Diagnosed Date [...] impacted cerumen 10/22/2022 Atherosclerosis of [place] co ronary artery without angina pectoris 07/15/2022 [...] as of this encounter (statuses as of 09/17/2024) Resolved Problems Problem Noted Date Diagnosed Date [...] as of this encounter (statuses as of 09/17/2024) Immunizations Name Administration Dates Next Due COVID-19 mRNA, LNP-s, No Pre serve, 2-Dose Series ([employer]) 07/03/2021,12/27/2020,12/06/2020 COVID-19, MRNA-LNP, PF, 30 M CG/0.3 mL, 12 YRS AND ABOVE, IM ([facility]) 05/22/2024,02/22/2024,06/16/2023 Pneumococcal Conjugate Vacci ne, 20-valent ([id number]) 12/07/2022 Pneumococcal Polysaccharide PPV23 (Pneumovax) 09/08/2020 RSV [...] Author No 02/15/2019 2:08 AM EDT Alexandr Gutiérrez, RN documented as of this encounter Mental [...] Info) Description 09/18/2024 2:10 PM EST Telemedicine [address] 293 [place] [address] College, Pharmacist [address] [address] 09/28/2024 8:00 AM EST Office Visit [address] 293 [place] [address] [place], Pharmacist [address] [address] 11/30/2024 9:30 AM EDT Office Visit Gastroenterology, [facility] 132 [facility] [address] Teddy Mullen CRNP 132 [place] [address] 12/03/2024 8:10 AM EDT Laboratory [facility] [phone] [address] [address] 12/06/2024 8:40 AM EDT Office Visit Family [place] [address] [facility] [address] [place] [address] Javy Moscoso DO [address] [place] Mccarthy [phone] 02/15/2025 10:00 AM EDT [facility] [address] [place] [phone] Debby Cornejo DO [address] [place] [address] 03/04/2025 8:20 AM EDT Laboratory Laboratory Patient Service [address] [phone] [facility] [address] [place] [address] 03/14/2025 9:00 AM EDT Office Visit Hematology/Oncology [facility] 200 [facility] [place] [phone] Katt Mullen CRNP 400 [place] [address] 04/10/2025 10:40 AM EDT Office Visit Nephrology, [facility] 200 [facility] [place] [address] Augusto Lerner MD 200 [facility] [place] [address] Scheduled Procedures Name Priority Associated Diagnoses Date/Ti me COLONOSCOPY FLEXIBLE PROXIMA L DIAGNOSTIC Recall History of colonic polyps Health Maintenance Due Date Last Done Comments Cologuard 01/12/1997 Sigmoidoscopy 01/12/1997 Fecal Occult Blood Test 11/18/2023 11/18/19 23, 11/17/2022, 03/16/2022, Additional history exists CKD PHOS USE SMARTSET 79784 05/05/2024 09/0 02/2023, 02/02/2023, 01/11/2022, Additional history [...] 1 , 06/16/2023 CKD HGB USE SMARTSET 90481 09/14/202509/14, 09/14/2024, 08/20/2024, Additional history exists DTap/Tdap [...] Power of Attor kwabena? No Care Teams Yarn Texture Machine Operator Relationship Specialty Start Date End Date Javy Moscoso DO [address] [place] [address] PCP - General Family Medicine 07/04/23 documented as of this encounter
--- OUTSIDE RECORDS SUMMARY | 2024-11-03 09:37 | External Medical Summary | Summary of Care ---
Author Name Unknown Organization [facility] Address [address] [place] [address] Phone [phone] Care Team Providers Care Paraprofessional Interpreter Name Role Phone Javy Moscoso DO Primary Care Provider + [phone] Reason for Visit * Reason Onset Date Comments Test Results Lab 09/16/2024 Encounter Details Date Type Department Care Team (Late st Contact Info) Description 09/16/2024 Telephone Hematology/Oncology [facility] 200 [facility] [place] [address] Katt Mullen CRNP [address] [place] [address] Test Results Lab Allergies Active Allergy Reactions Criticality Noted Date [...] every 10 days. E11.9 Active Dexcom G7 Sustainable Development Policy Analyst Device Use as directed. Use as directed [...] 4 Active Vitamin D (Ergocalciferol) 1.25 MG (97937 UT) Oral Capsule (Drisdol)Indicati ons:Vitamin D deficiency [...] the skin daily per titration chart from [facility] clinic. 45 mL 3 08/23/2024 12:03 [...] (HCC) Taper and transition to Xultophy per [facility] titration chart. 4 Active Pen [place] 31G X 5 MMIndications:Typ e 2 diabetes [...] (PFIZER-Comirnaty) 05/22/2024,02/22/2024,06/16/2023 Pneumococcal Conjugate Vacci ne, 20-valent ([id number]) 12/07/2022 Pneumococcal Polysaccharide PPV23 (Pneumovax) 09/08/2020 RSV [...] No 12/22/2023 Does the household have a [facility] source of income? (Household - for ages [...] Telephone Encounter - Nhung Gutiérrez LPN - 09/17/2024 3:05 PM EST Called and spoke with patient, informed patient of the test result message from provider below. He verbalized understanding and denies any questions. Patient verbally confirms he is scheduled for a lab test on 12/03/2024. Per patient request scheduled him on 03/04/2025 in [place] for the lab work prior to seeing Katt on 03/14/2025. * Telephone Encounter - Freida MullenAUSTIN Ha - 09/16/2024 4:38 PM EST Results for orders placed or performed in visit on 09/14/24 IRON SCREEN, INCLUDING TIBC Result Value Ref Range Iron 66 45 - 176 ug/dL Iron Binding Capacity 281 250 - 425 ug/dL Transferrin Saturation Percent 23 15 - 55 % FERRITIN Result Value Ref Range Ferritin 115 30 - 400 ng/mL COMPREHENSIVE METABOLIC PANEL Result Value Ref Range BUN 35 (H) 6 - 20 mg/dL CREATININE 1.8 (H) 0.6 - 1.2 mg/dL EGFR 41 (L) >=60 mL/min SODIUM 139 135 - 146 mmol/L POTASSIUM 4.6 3.5 - 5.1 mmol/L CHLORIDE 99 98 - 107 mmol/L CO2 29 22 - 32 mmol/L ANION GAP 11 7 - 15 mmol/L GLUCOSE 189 (H) 70 - 120 mg/dL Albumin 4.3 3.8 - 5.0 g/dL AST 23 10 - 50 U/L Alkaline Phosphatase 60 35 - 130 U/L Bilirubin, Total 0.4 <=1.2 mg/dL CALCIUM 9.0 8.4 - 10.2 mg/dL Protein 6.6 6.0 - 8.3 g/dL ALT 18 10 - 50 U/L CBC Result Value Ref Range WBC 6.05 4.00 - 10.80 K/uL RBC 4.55 4.50 - 5.25 M/uL HGB 14.0 14.0 - 16.8 g/dL HCT 44.9 40.0 - 48.4 % MCV 98.7 82.0 - 99.5 fL MCH 30.8 27.0 - 34.0 pg MCHC 31.2 32.0 - 36.0 g/dL RDW 15.4 11.5 - 15.5 % PLT 137 (L) 140 - 400 K/uL MPV 13.2 6.6 - 11.1 fL DIFFERENTIAL, AUTOMATED Result Value Ref Range WBC 6.05 4.00 - 10.80 K/uL Neutrophils % 77.2 (H) 40.0 - 75.0 % Lymphocytes % 14.7 (L) 18.0 - 42.0 % Monocytes % 5.6 1.0 - 11.0 % Eosinophils % 1.8 0.0 - 6.0 % Basophils % 0.7 0.0 - 2.0 % Absolute Neutrophils 4.67 1.80 - 7.70 K/uL Absolute Lymphocytes 0.89 (L) 1.00 - 4.80 K/ul Absolute Monocytes 0.34 0.00 - 1.10 K/uL Absolute Eosinophils 0.11 0.00 - 0.70 K/uL Absolute Basophils 0.04 0.00 - 0.20 K/uL *Note: Due to a large number of results and/or encounters for the requested time period, some results have not been displayed. A complete set of results can be found in Results Review. Please let patient know that all of his lab work looks good. Please repeat labs in three months andthen again before follow up visit scheduled in six months. Standing orders in place. documented in this encounter Plan of Treatment Upcoming Encounters Date Type Department Care Team (Late st Contact Info) Description 09/18/2024 2:10 PM EST Telemedicine Family Practice [address] [place] [address] 293 [place] [address] College, Pharmacist [address] [place] [address] 09/28/2024 8:00 AM EST Office Visit Family Practice [address] [place] [address] 293 [place] [address] College, Pharmacist [address] [place] [address] 11/30/2024 9:30 AM EDT Office Visit Gastroenterology, [facility] [address] [place] [address] Teddy Mullen CRNP 132 [facility] [place] [address] 12/03/2024 8:10 AM EDT Laboratory [facility], [address] [phone] [address] [address] 12/06/2024 8:40 AM EDT Office Visit Family Practice [address] [place] [address] [address] [place] [address] Javy Moscoso DO [address] [place] [address] 02/15/2025 10:00 AM EDT Office Visit Sleep Disorders Ctr [facility] [address] [place] [phone] Debby Cornejo DO [address] [place] [address] 03/04/2025 8:20 AM EDT Laboratory Laboratory Patient [address] [phone] Vonnie, Lab Lock [address] [place] [address] [facility] [place] [address] 03/14/2025 9:00 AM EDT Office Visit Hematology/Oncology [facility] [place] 200 [facility] [place] [phone] Katt Mullen CRNP 400 [facility] [place] [address] 04/10/2025 10:40 AM EDT Office Visit Nephrology, [facility] 200 [facility] [place] [address] Augusto Lerner MD 200 [facility] [place] [address] Scheduled Orders Name Type Priority Associated Diagnoses Orde r Schedule COMPREHENSIVE METABOLIC PANEL Lab STAT Iron deficiency anemia due to chronic blood loss Chronic kidney disease, stage 3b (HCC) AVM (arteriovenous malformation) of small bowel, acquired Carcinoid tumor of rectum, unspecified whether malignant Every 6 Months for 2 Occurrences starting 09/16/2024 until 10/17/2025 Scheduled Procedures Name Priority Associated Diagnoses Date/Ti me COLONOSCOPY FLEXIBLE PROXIMA L DIAGNOSTIC Recall History of colonic polyps Health Maintenance Due Date Last Done Comments Cologuard 01/12/1997 Sigmoidoscopy 01/12/1997 Fecal Occult Blood Test 11/18/2023 11/18/19 23, 11/17/2022, 03/16/2022, Additional history exists CKD PHOS USE SMARTSET 80135 05/05/2024 09/0 02/2023, 02/02/2023, 01/11/2022, Additional history [...] 1 , 06/16/2023 CKD HGB USE SMARTSET 10176 09/14/202509/14, 09/14/2024, 08/20/2024, Additional history exists DTap/Tdap [...] deficiency anemia secondary to blood loss (chronic) Chronic kidney disease, stage 3b (HCC) AVM (arteriovenous malformation) of small bowel, acquired Carcinoid tumor of rectum, unspecified whether malignant documented in this encounter Advance Directives * [...] Power of Attor kwabena? No Care Teams Paraprofessional Interpreter Relationship Specialty Start Date End Date Javy Moscoso DO [address] [place] [address] PCP - General Family Medicine 07/04/23 documented as of this encounter
--- OUTSIDE RECORDS SUMMARY | 2024-11-03 09:37 | External Medical Summary | Summary of Care ---
Author Name Unknown Organization [facility] Address [address] [place] [address] Phone [phone] Care Team Providers Care Metal Window Frame Maker Name Role Phone Javy Moscoso DO Primary Care Provider + [phone] Reason for Visit * Reason Comments Dosage Adjustment Via Phone (anticoag Cl inic) Diabetes Follow-Up Encounter Details Date Type Department Care Team (Late st Contact Info) Description 09/18/2024 2:10 PM EST Telemedicine Family Practice 65 [facility] [address] [place] [address] College, Pharmacist [address] [address] Type 2 diabetes mellitus with stage 3b chronic kidney disease, with long-term current use of insulin ([facility])* Allergies Active Allergy Reactions Criticality Noted Date Comments Lisinopril Unknown Low 11/15/2022 Verapamil Medium 06/26/2020 Heart Block documented as of this encounter (statuses as of 09/20/2024) Medications CPAP every night at bedtime. Active Acetaminophen 500 MG Oral Tablet (Tylenol) Take 1 to 2 tablets by mouth every 6 hours as needed 03/09/20 Active Parakweetuch Ultra 2 w/Device Kit USE DIRECTED TO [...] every 10 days. E11.9 Active Dexcom G7 Displayer Merchandise Device Use as directed. Use as directed [...] 24 Active Vitamin D (Ergocalciferol) 1.25 MG (57310 UT) Oral Capsule (Drisdol)Indicati ons:Vitamin D deficiency [...] the skin daily per titration chart from [facility] clinic. 45 mL 3 4 12:03 PM EST 08/03/20 24 Active Additional Information Patient taking differently: 38 Units Subcutaneous HS, per [facility] clinic, Reported on 09/20/2024 Pen [place] 31G X 5 MMIndications:Typ e 2 diabetes mellitus with hyperglycemia, with long-term current use of insulin ([facility]) Use as directed with glargine insulin once [...] 5 4:22 PM EST 09/10/19 25 Active Zoster Vac Recomb Adjuvanted 50 MCG/0.5ML Intramuscular Suspension Reconstituted (Shingrix)Indicat ions:Need for vaccination for zoster Inject 0.5 mL into a large muscle now and repeat dose in 60 to 180 days 1 Each 4 10:06 AM EST 08/03/20 24 025 Discontin ued(Medic ation List Clean Up) Hospital, Clinic, or Other Facility Administered Medication Ordered Dose Route Frequency Start Date End Date Status Albuterol Sulfate (Proventil) (2.5 MG/3ML) 0.083% inhalation solution 2.5 mgIndications:ILD (interstitial lung disease) ([facility]),BEARDEN (dyspnea on exertion) 2.5 mg NEBULIZER Q4H PRN 12/12/2023 Act jose documented as of this encounter (statuses as of 09/20/2024) Active Problems Problem Noted Date Diagnosed Date [...] as of this encounter (statuses as of 09/20/2024) Resolved Problems Problem Noted Date Diagnosed Date [...] as of this encounter (statuses as of 09/20/2024) Immunizations Name Administration Dates Next Due COVID-19 mRNA, LNP-s, No Pre serve, 2-Dose Series (EaglEyeMed) 07/03/2021,12/27/2020,12/06/2020 COVID-19, MRNA-LNP, PF, 30 M CG/0.3 mL, 12 YRS AND ABOVE, IM [facility]) 05/22/2024,02/22/2024,06/16/2023 Pneumococcal Conjugate Vacci ne, 20-valent ([id number]) 12/07/2022 Pneumococcal Polysaccharide PPV23 (Pneumovax) 09/08/2020 RSV [...] No 12/22/2023 Does the household have a [facility] source of income? (Household - for [...] lsey A, RN * Do you have difficulty dressing [...] in this encounter Progress Notes * Mirtha Novak RPh - 09/18/2024 1:59 PM EST Diabetes telephone follow - up 09/18/2024 Patient Phone Numbers - Reason for contacting patient: Following up with patient on recent low blood sugars. Patient had called in yesterday with multiple nights < 70 and was instructed to decrease insulin dose to whatwas written on instructions. Ramon reports he found his paper and used that instead of what pharmacist had recommended. - Current diabetic medications: Taper off Lantus 21 units at bedtime - per titration chart below - currently at 5 units Taper on Xultophy 22 units up to 42 units at bedtime - per titration chart below - currently at 38 units Metformin 500 mg ER 1 tab daily Jardiance 25 mg daily - Glucose review/ SMBG: Breakfast: pre meal - 90's today Lunch: post 82 Hypoglycemia: not since decreasing dose. Therapy Management Assessment/Plan: 1) Diabetes: Advised patient to stop lantus and remain at Xultophy 38 units moving forward. Xultophy 38 units at bedtime STOP Lantus Metformin 500 mg ER 1 tab daily Jardiance 25 mg daily Follow up in 10 days. Patient advised to call sooner if sugars drop < 70. Mirtha David [facility], Pharm D Clinical Pharmacist Medication Therapy Management Clinic 09/18/2024, 1:59 PM documented in this encounter Plan of Treatment Upcoming Encounters Date Type Department Care Team (Late st Contact Info) Description 09/28/2024 8:00 AM EST Office Visit Family Practice [address] [place] [address] 293 [place] [address] College, Pharmacist [address] [place] [address] 11/30/2024 9:30 AM EDT Office Visit Gastroenterology, [facility] 132 [facility] [place] [address] Teddy Mullen CRNP 132 [facility] [place] [address] 12/03/2024 8:10 AM EDT Laboratory Laboratory [facility], [address] [phone] Havemaría elena, Lab Lock [address] [place] [address] 12/06/2024 8:40 AM EDT Office Visit Family Practice [address] [place] [address] [address] [place] [address] Javy Moscoso DO [address] [place] [address] 02/15/2025 10:00 AM EDT Office Visit Sleep Disorders Ctr [facility] 132 [facility] [place] [phone] Debby Cornejo DO [address] [place] [address] 03/04/2025 8:20 AM EDT Laboratory Laboratory [facility], [address] [place] [phone] Vonnie, Lab Lock [address] [place] [address] 03/14/2025 9:00 AM EDT Office Visit Hematology/Oncology [facility] [place] 200 [facility] [place] [phone] Katt Mullen CRNP 400 [facility] [place] [address] 04/10/2025 10:40 AM EDT Office Visit Nephrology, [facility] 200 [facility] [place] [address] Augusto Lerner MD 200 [facility] [place] [address] Scheduled Procedures Name Priority Associated Diagnoses Date/Ti me COLONOSCOPY FLEXIBLE PROXIMA L DIAGNOSTIC Recall History of colonic polyps Health Maintenance Due Date Last Done Comments Cologuard 01/12/1997 Sigmoidoscopy 01/12/1997 Fecal Occult Blood Test 11/18/2023 11/18/19 23, 11/17/2022, 03/16/2022, Additional history exists CKD PHOS USE SMARTSET 57181 05/05/202402/2023, 02/02/2023, 01/11/2022, Additional history exists Adult Wellness [...] 1 , 06/16/2023 CKD HGB USE SMARTSET 77521 09/14/202509/14, 09/14/2024, 08/20/2024, Additional history exists DTap/Tdap [...] Power of Attor kwabena? No Care Teams Metal Window Frame Maker Relationship Specialty Start Date End Date Javy Moscoso DO [address] [place] [address] PCP - General Family Medicine 07/04/23 documented as of this encounter
--- OUTSIDE RECORDS SUMMARY | 2024-11-03 09:38 | External Medical Summary | Summary of Care ---
Author Name Unknown Organization [facility] Address [address] [place] [address] Phone [phone] Care Team Providers Care Resident Care Supervisor Name Role Phone Javy Moscoso DO Primary Care Provider + [phone] Encounter Details Date Type Department Care Team (Late st Contact Info) Description 09/16/2024 Telephone Hematology/Oncology [facility] 200 [facility] [place] [address] Katt Mullen CRNP [address] [place] [address] Allergies Active Allergy Reactions Criticality [...] every 10 days. E11.9 Active Dexcom G7 Shipping Coordinator Device Use as directed. Use as directed [...] 4 Active Vitamin D (Ergocalciferol) 1.25 MG (06292 UT) Oral Capsule (Drisdol)Indicati ons:Vitamin D deficiency [...] the skin daily per titration chart from [facility] clinic. 45 mL 3 08/23/2024 12:03 PM [...] (HCC) Taper and transition to Xultophy per [facility] titration chart. 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 (Household - for ages [...] Miscellaneous Notes * Telephone Encounter - Katt MullenAUSTIN ring - 09/16/2024 4:38 PM EST Results for [...] 2:10 PM EST Telemedicine Family Practice 65 [facility] 293 [facility] [phone] College, Pharmacist [address] [address] 09/28/2024 8:00 AM EST Office Visit Family Practice 65 [facility] 293 [facility] [phone] College, Pharmacist [address] [place] [address] 11/30/2024 9:30 AM EDT Office Visit Gastroenterology, [facility] 132 [facility] [place] [address] Teddy Mullen CRNP 132 [facility] [place] [address] 12/03/2024 8:10 AM EDT Laboratory Laboratory [facility], [address] [phone] [address] 12/06/2024 8:40 AM EDT Office Visit Family Practice 65 [facility] [address] [place] [address] Javy Moscoso, [address] [place] [address] 02/15/2025 10:00 AM EDT Office Visit Sleep Disorders Ctr [facility] 132 [facility] [place] [phone] Debby Cornejo, DO 132 [facility] [place] [address] 03/14/2025 9:00 AM EDT Office Visit Hematology/Oncology [facility] [address] [place] [phone] Katt Mullen CRNP 400 [facility] [place] [address] 04/10/2025 10:40 AM EDT Office Visit Nephrology, [facility] [address] [place] [address] Augusto Lerner MD [address] [place] [address] Scheduled Orders Name Type Priority Associated Diagnoses [...] Additional history exists CKD PHOS USE SMARTSET 22943 05/05/2024 090 02/2023, 02/02/2023, 01/11/2022, Additional history [...] 1 , 06/16/2023 CKD HGB USE SMARTSET 42566 09/14/202509/14, 09/14/2024, 08/20/2024, Additional history exists DTap/Tdap [...] Power of Attor kwabena? No Care Teams Resident Care Supervisor Relationship Specialty Start Date End Date Javy Moscoso DO [address] [place] [address] PCP - General Family Medicine 07/04/23 documented as of this encounter
--- OUTSIDE RECORDS SUMMARY | 2024-11-03 09:38 | External Medical Summary ---
Author Name Unknown Address Unknown Organization K01:[facility] - [address] [place] [address] Laboratory Report Ordering Provider Test Date Status MONTSE MEJIA 09/14/2024 11:54:04 Final Observation Date Value Abnormality Reference (Units ) Status Vitamin B12 09/14/2024 11:54:04 [phone] (pg/mL) Final Performing Location [facility] - [address] [place] [address]
--- OUTSIDE RECORDS SUMMARY | 2024-11-03 09:38 | External Medical Summary ---
Author Name Unknown Address Unknown Organization K09:[facility] - [address] [place] [address] Laboratory Report Ordering Provider Test Date Status MONTSE MEJIA 09/14/2024 11:54:04 Final Observation Date Value Abnormality Reference (Units ) Status BUN 09/14/2024 11:54:04 35 Above high normal 6-20 (mg/dL) Final Creatinine 09/14/2024 11:54:04 1.8 Above high normal 0.6-1.2 (mg/dL) Final Glomerular filtration rate/1.73 sq M.predicted [Volume Rate/Area] in Serum, Plasma or Blood by Creatinine-based formula (CKD-EPI) 09/14/2024 11:54:04 41 Below low normal >=60 (mL/min) Final eGFR is calculated based on the CKD-EPI 2020 equation. Sodium 09/14/2024 11:54:04 139 135-146 (m mol/L) Final Potassium 09/14/2024 11:54:04 4.6 3.5-5.1 (m mol/L) Final Cl 09/14/2024 11:54:04 99 98-107 (mm ol/L) Final CO2 09/14/2024 11:54:04 29 22-32 (mmo l/L) Final Anion gap 09/14/2024 11:54:04 11 7-15 (mmol /L) Final Glucose 09/14/2024 11:54:04 189 Above high normal 70 -120 (mg/dL) Final Albumin 09/14/2024 11:54:04 4.3 3.8-5.0 (g /dL) Final AST (Aspartate aminotransferase) 09/14/2024 11:54:04 23 10-50 (U/L) Fin al Alk Phos 09/14/2024 11:54:04 60 35-130 (U/ L) Final Bilirubin, Total 09/14/2024 11:54:04 0.4 <=1 .2 (mg/dL) Final Calcium 09/14/2024 11:54:04 9.0 8.4-10.2 ( mg/dL) Final Protein 09/14/2024 11:54:04 6.6 6.0-8.3 (g /dL) Final ALT (Alanine aminotransferase) 09/14/2024 11:54:04 18 10-50 (U/L) Adan vences Performing Location [facility] [address] [place] [address]
--- OUTSIDE RECORDS SUMMARY | 2024-11-03 09:38 | External Medical Summary | Summary of Care ---
Author Name Unknown Organization [facility] Address [address] [place] [address] Phone [phone] Care Team Providers Care Kettle Hand Name Role Phone Javy Moscoso DO Primary Care Provider + [phone] Reason for Visit * Reason Comments Outpatient Testing Encounter Details Date Type Department Care Team (Late st Contact Info) Description 09/14/2024 12:00 PM EST Laboratory Laboratory [facility] [address] [place] [phone] [facility] 200 [facility] [place] [address] Iron deficiency anemia due to chronic blood loss Allergies Active Allergy Reactions Criticality Noted Date Comments Lisinopril Unknown Low 11/15/2022 Verapamil Medium 06/26/2020 Heart Block documented as of this encounter (statuses as of 09/14/2024) Medications CPAP every night at bedtime. Active [...] every 10 days. E11.9 Active Dexcom G7 Flange Machine Operator Device Use as directed. Use [...] 4 Active Vitamin D (Ergocalciferol) 1.25 MG (79928 UT) Oral Capsule (Drisdol)Indicati ons:Vitamin D deficiency [...] the skin daily per titration chart from [facility] clinic. 45 mL 3 08/23/2024 12:03 [...] (HCC) Taper and transition to Xultophy per [facility] titration chart. 4 Active Pen Yoder 31G X 5 MMIndications:Typ e 2 diabetes [...] 2.5 mgIndications:ILD (interstitial lung disease) ([facility]),BEARDEN (dyspnea on exertion) 2.5 mg NEBULIZER Q4H PRN 12/12/2023 Act jose documented as of this encounter (statuses as of 09/14/2024) Active Problems Problem Noted Date Diagnosed Date [...] as of this encounter (statuses as of 09/14/2024) Resolved Problems Problem Noted Date Diagnosed Date [...] as of this encounter (statuses as of 09/14/2024) Immunizations Name Administration Dates Next Due COVID-19 mRNA, LNP-s, No Pre serve, 2-Dose Series (Pfizer) 07/03/2021,12/27/2020,12/06/2020 COVID-19, MRNA-LNP, PF, 30 M CG/0.3 mL, 12 YRS AND ABOVE, IM (PFIZER-Comirnaty) 05/22/2024,02/22/2024,06/16/2023 Pneumococcal Conjugate Vacci ne, 20-valent ([id number]) 12/07/2022 Pneumococcal Polysaccharide PPV23 (Pneumovax) 09/08/2020 RSV [...] No 12/22/2023 Does the household have a [facility] source of income? (Household - for ages [...] 02/15/2019 2:08 AM EDAlexandr Bernstein RN * Are you blind or do [...] 02/15/2019 2:08 AM EDT Alexandr Gutiérrez, RN * Because of a physical, mental, [...] 09/18/2024 2:10 PM EST Telemedicine Family Practice [address] [place] [address] [address] [place] [address] College, Pharmacist [address] [address] 09/28/2024 8:00 AM EST Office Visit Family Practice [address] [place] [address] [address] [place] [address] [place], Pharmacist [address] [address] 11/30/2024 9:30 AM EDT Office Visit Gastroenterology, [facility] [address] Teddy Mullen CRNP 132 [facility] [place] [address] 12/03/2024 8:10 AM EDT [facility] [phone] [place], [facility] [place] [address] [place] [address] 12/06/2024 8:40 AM EDT Office Visit Family Practice 65 [facility], [place] [address] [place] [address] Javy Moscoso DO [address] [place] [address] 02/15/2025 10:00 AM EDT Office Visit [facility] Ctr [facility] [place] [phone] Debby Cornejo DO [address] [place] [address] 03/14/2025 9:00 AM EDT Office Visit Hematology/Oncology [facility] [address] [place] [phone] Katt Mullen CRNP [facility] [place] [address] 04/10/2025 10:40 AM EDT Office Visit Nephrology, [facility] 200 [facility] [place] [address] Augusto Lerner MD 200 [facility] [place] [address] Pending Results Name Type Priority Associated Diagnoses Date /Time IRON SCREEN, INCLUDING TIBC Lab STAT Iron deficiency anemia due to chronic blood loss 09/14/2024 11:54 AM EST FERRITIN Lab STAT Iron deficiency anemia due to chronic blood loss 09/14/2024 11:54 AM EST COMPREHENSIVE METABOLIC PANEL Lab STAT Iron deficiency anemia due to chronic blood loss 09/14/2024 11:54 AM EST Scheduled Procedures Name Priority Associated Diagnoses Date/Ti me COLONOSCOPY FLEXIBLE PROXIMA L DIAGNOSTIC Recall History of colonic polyps Health Maintenance Due Date Last Done Comments Cologuard 01/12/1997 Sigmoidoscopy 01/12/1997 Fecal Occult Blood Test 11/18/2023 11/18/19 23, 11/17/2022, 03/16/2022, Additional history exists CKD PHOS USE SMARTSET 53426 05/05/2024 09/0 02/2023, 02/02/2023, 01/11/2022, Additional history exists Adult Wellness Visit 09/28/2024 09/28/2023 GFR 12/17/2024 06/18/2024, 03/30, 03/09/2024, Additional history exists Depression Screening 12/21/2024 12/22/2023 HbA1c 02/01/2025 08/03/2024, 03/30, 12/15/2023, Additional history exists Diabetic Eye Exam 03/06/2025 03/06/2024, , 08/24/2023, Additional history exists Colonoscopy 05/03/2025 05/03/2024, 12/2023, 12/10/2022, Additional history exists Colorectal Cancer Screening 05/03/2025 O2 ASSESSMENT COMPLETED IN PAST YEAR FOR COPD 05/03/2025 05/03/2024 CKD HGB USE SMARTSET 66104 08/20/202509/14, 09/14/2024, 08/20/2024, Additional history exists Albumin/Creatinine Ratio 09/07/2025 025, 09/09/2023, 07/02/2022 Diabetic Foot Exam 09/07/2025 09/07/2024, 1 , 06/16/2023 DTap/Tdap Vaccines (2 - Td or Tdap) [...] Procedure Name Priority Date/Time Associated Diagnosis Comments DIFFERENTIAL, AUTOMATED STAT 09/14/2024 11:54 AM EST Iron deficiency anemia due to chronic blood loss CBC STAT 09/14/2024 11:54 AM EST Iron deficiency anemia due to chronic blood loss CBC STAT 09/14/2024 11:54 AM EST Iron deficiency anemia due to chronic blood loss documented in this encounter Results * (ABNORMAL) DIFFERENTIAL, AUTOMATED (09/14/2024 11:54 AM EST) WBC 6.05 4.00 - 10.80 K/uL 09/14/2024 11:59 AM EST [facility]02 Neutrophils % 77.2(H) 40.0 - 75.0 % 09/14/2024 11:59 AM EST [facility]02 Lymphocytes % 14.7(L) 18.0 - 42.0 % 09/14/2024 11:59 AM EST [facility]02 Monocytes % 5.6 1.0 - 11.0 % 09/14/2024 11:59 AM EST [facility]-02 Eosinophils % 1.8 0.0 - 6.0 % 09/14/2024 11:59 AM EST [facility]-02 Basophils % 0.7 0.0 - 2.0 % 09/14/2024 11:59 AM EST [facility]-02 Absolute Neutrophils 4.67 1.80 - 7.70 K/uL 09/14/2024 11:59 AM EST [facility] 56-02 Absolute Lymphocytes 0.89(L) 1.00 - 4.80 K/ul 09/14/2024 11:59 AM EST [facility]02 Absolute Monocytes 0.34 0.00 - 1.10 K/uL 09/14/2024 11:59 AM [facility] 56- Absolute Eosinophils 0.11 0.00 - 0.70 K/uL 09/14/2024 11:59 AM [facility] 56-02 Absolute Basophils 0.04 0.00 - 0.20 K/uL 09/14/2024 11:59 AM [facility] 56-02 Blood Venous blood specimen / Unknown Venipuncture / Unknown 09/14/2024 11:54 AM EST 09/14/2024 11:54 AM EST us Katt [facility] LAB BLOOD ORDERABLES Fi nal Result [facility] [address]- [address] [place] [address] * (ABNORMAL) CBC (09/14/2024 11:54 AM EST) WBC 6.05 4.00 - 10.80 K/uL 09/14/2024 11:59 AM [facility] 56- RBC 4.55 4.50 - 5.25 M/uL 09/14/2024 11:59 AM [facility] 56- HGB 14.0 14.0 - 16.8 g/dL 09/14/2024 11:59 AM [facility] 56- HCT 44.9 40.0 - 48.4 % 09/14/2024 11:59 AM [facility] 56- MCV 98.7 82.0 - 99.5 fL 09/14/2024 11:59 AM [facility] 56- MCH 30.8 27.0 - 34.0 pg 09/14/2024 11:59 AM [facility] 56- MCHC 31.2 32.0 - 36.0 g/dL 09/14/2024 11:59 AM [facility] 56- RDW 15.4 11.5 - 15.5 % 09/14/2024 11:59 AM [facility] 56- PLT 137(L) 140 - 400 K/uL 09/14/2024 11:59 AM [facility] 56- MPV 13.2 6.6 - 11.1 fL 09/14/2024 11:59 AM EST [facility] 56-02 Blood Venous blood specimen / Unknown Venipuncture / Unknown 09/14/2024 11:54 AM EST 09/14/2024 11:54 AM EST Katt Mullen [place] LAB BLOOD ORDERABLES Fi nal Result [facility] 56-[address] [place] [address] documented in this encounter Visit Diagnoses Diagnosis Iron deficiency anemia due to chronic blood loss Iron deficiency anemia secondary to blood loss (chronic) documented in this encounter Advance Directives * [...] Power of Attor kwabena? No Care Teams Kettle Hand Relationship Specialty Start Date End Date Javy Moscoso DO [address] [place] [address] PCP - General Family Medicine 07/04/23 documented as of this encounter
--- OUTSIDE RECORDS SUMMARY | 2024-11-03 09:38 | External Medical Summary ---
Author Name Unknown Address Unknown Organization K01:LABORATORY [facility] - [address] [place] [address] Laboratory Report Ordering Provider Test Date Status MONTSE MEJIA 09/14/2024 11:54:04 Final Observation Date Value Abnormality Reference (Units ) Status Iron 09/14/2024 11:54:04 66 45-176 (ug /dL) Final Iron-binding capacity 09/14/2024 11:54:04 281 250-425 (ug/dL) Final Transferrin Sat % 09/14/2024 11:54:04 23 15 -55 (%) Final Performing Location LABORATORY [facility] - [address] [place] [address]
--- OUTSIDE RECORDS SUMMARY | 2024-11-03 09:38 | External Medical Summary | Summary of Care ---
Author Name Unknown Organization [facility] Address [address] [place] [address] Phone [phone] Care Team Providers Care Occupational Health Specialist Name Role Phone Javy Moscoso DO Primary Care Provider Reason for Visit * Reason Onset Date Comments Other 09/17/2024 Low blood sugar Encounter Details Date Type Department Care Team (Late st Contact Info) Description 09/17/2024 Telephone Family Practice 65 [facility] [place] [address] [place] [address] Javy Moscoso DO [address] [place] [address] Other (Low blood sugar) [...] every 10 days. E11.9 Active Dexcom G7 Scale Operator Device Use as directed. Use as [...] 4 Active Vitamin D (Ergocalciferol) 1.25 MG (28023 UT) Oral Capsule (Drisdol)Indicati ons:Vitamin D deficiency [...] the skin daily per titration chart from [facility] clinic. 45 mL 3 08/23/2024 [...] per MTD titration chart. 4 Active Pen Bushnell 31G X 5 MMIndications:Typ e 2 diabetes [...] inhalation solution 2.5 mgIndications:ILD (interstitial lung disease) ([facility]),BEARDEN (dyspnea on exertion) 2.5 [...] 12/07/2022 Bilateral impacted cerumen 10/22/2022 Atherosclerosis of [place] co ronary artery without angina pectoris 07/15/2022 [...] (PFIZER-Comirnaty) 05/22/2024,02/22/2024,06/16/2023 Pneumococcal Conjugate Vacci ne, 20-valent ([id number]) 12/07/2022 Pneumococcal Polysaccharide PPV23 (Pneumovax) 09/08/2020 RSV [...] encounter Miscellaneous Notes * Telephone Encounter - Meseret Gonzalez RPh - 09/17/2024 10:19 AM EST Contacts Contact Date/Time Type Contact Phone/Fax 09/17/2024 08:51 AM EST Phone (Incoming) Walker Mancini (Self) [phone] (M) 09/17/2024 10:26 AM EST Phone (Outgoing) Walker Mancini (Self) [phone] (M) Returned call and he has been having lows all weekend in the 40's. He eats a few candy bars to correct the low. Talked about the tapering chart that [facility] sent and he doesn't have it because they couldn't print it out so he has been using the original chart which is most likely why he is running lower than expected. He has been using 13 units Lantus. Discussed that he will take 9 units lantus today and 34 units Xultophy. Will send [facility] message and have her call him tomorrow to discuss on going taper. Also talked about eating dinner at 5 PM and then nothing after this. Suggested a snack later in the evening to try to prevent his BG going to low. Meseret Gonzalez RPh, PharmD, BCACP, BCGP Ambulatory Clinical Pharmacist 65 [facility] 09/17/2024 10:29 AM * Telephone Encounter - Kallie Morgan OSA - 09/17/2024 8:51 AM EST Pt called and states he wants to talk to pharmacist (Aydee) Pt has had low blood sugar last 3 nights bellow 45 Please call [phone] documented in this encounter Plan of Treatment Upcoming Encounters Date Type Department Care Team (Late st Contact Info) Description 09/18/2024 2:10 PM EST Telemedicine Family [address] [place] [phone] College, Pharmacist [address] [address] 09/28/2024 8:00 AM EST Office Visit Family [address] [place] [address] College, Pharmacist [address] [address] 11/30/2024 9:30 AM EDT Office Visit Gastroenterology, [facility] 132 [place] [address] Teddy Mullen CRNP 132 [place] [address] 12/03/2024 8:10 AM EDT Laboratory [facility], [address] [phone] [address] [address] 12/06/2024 8:40 AM EDT Office Visit Family Practice 65 [place] [address] [place] [phone] Javy Moscoso DO [address] [place] [address] 02/15/2025 10:00 AM EDT Office Visit Sleep Disorders Ctr [facility] [place] [address] [place] [phone] Debby Cornejo, DO [address] [place] [address] 03/14/2025 9:00 AM EDT Office Visit Hematology/Oncology [facility] [place] 200 [facility] [place] [address] Katt Mullen CRNP 400 [facility] [place] [address] 04/10/2025 10:40 AM EDT Office Visit Nephrology, [facility] 200 [facility] [place] [address] Augusto Lerner MD 200 [place] [address] Scheduled Procedures Name Priority Associated Diagnoses Date/Ti me COLONOSCOPY FLEXIBLE PROXIMA L DIAGNOSTIC Recall History of colonic polyps Health Maintenance Due Date Last Done Comments Cologuard 01/12/1997 Sigmoidoscopy 01/12/1997 Fecal Occult Blood Test 11/18/2023 11/18/19 23, 11/17/2022, 03/16/2022, Additional history exists CKD PHOS USE SMARTSET 99320 05/05/2024 09/0 02/2023, 02/02/2023, 01/11/2022, Additional history [...] 1 , 06/16/2023 CKD HGB USE SMARTSET 15684 09/14/202509/14, 09/14/2024, 08/20/2024, Additional history exists DTap/Tdap [...] of Attor kwabena? No Care Teams Occupational Health Specialist Relationship Specialty Start Date End Date Javy Moscoso DO [address] [place] [address] PCP - General Family Medicine 07/04/23 documented as of this encounter
--- OUTSIDE RECORDS SUMMARY | 2024-11-03 09:38 | External Medical Summary | Summary of Care ---
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)*; Type 2 diabetes mellitus with stage 3b chronic kidney disease, with long-term current use of insulin (HCC); Type 2 diabetes mellitus with hemoglobin A1c goal of less than 8.0% (HCC); Dyslipidemia, goal LDL below 70; Centrilobular emphysema (HCC); Carcinoid tumor of rectum, unspecified whether malignant; Spinal stenosis of lumbar region without neurogenic claudication; AVM (arteriovenous malformation) of small bowel, acquired; Intrinsic atopic dermatitis; Vitamin D deficiency; Morbid (severe) obesity due to excess calories (HCC); Iron deficiency anemia due to chronic blood loss; Class 1 obesity due to excess calories with serious comorbidity and body mass index (BMI) of 34.0 to 34.9 in adult Allergies Active Allergy Reactions Criticality Noted Date Comments Lisinopril Unknown Low 11/15/2022 Verapamil Medium 06/26/2020 Heart Block documented as of this encounter (statuses as of 09/13/2024) Medications CPAP every night at bedtime. Active Acetaminophen 500 MG Oral Tablet (Tylenol) Take 1 to 2 tablets by mouth every 6 hours as needed Active eParachuteuch Ultra 2 w/Device Kit USE DIRECTED TO TEST BLOOD SUGARS 1 Each 4 11:01 AM EST 024 Active Torsemide 20 MG Oral Tablet (Demadex)Indicat ions:HTN, goal below 140/90 TAKE ONE TABLET BY MOUTH EVERY MORNING 90 Tablet 3 4 11:50 AM EST 024 2024 Active Vitamin B-12 2500 MCG Sublingual Tablet Sublingual Place 1 Tablet under the tongue in the morning. Active Dexcom G7 Sensor Use as directed. Use as directed to monitor blood sugars daily. Replace sensor every 10 days. E11.9 Active Dexcom G7 Test Engineering Technician Device Use as directed. Use as directed to monitor blood sugars daily Active [employer] Ultra In Vitro Strip (Glucose Blood)Indication s:Type 2 diabetes mellitus with hyperglycemia, with long-term current use of insulin (HCC) USE DIRECTED UP TO FOUR TIMES DAILY FOR HOME GLUCOSE TESTING 400 Strip 3 4 8:19 AM EDT 024 Active Docusate Sodium 100 MG Oral Capsule (Stool Softener) Take 1 Capsule by mouth in the morning and 1 Capsule before bedtime. Active Pantoprazole Sodium 40 MG Oral Tablet Delayed Release (Protonix) Take 1 Tablet by mouth in the morning and 1 Tablet before bedtime. 180 Tablet 3 4 10:48 AM EST 024 Active Ferrous Sulfate 325 (65 Fe) MG Oral Tablet (Feosol) Take 1 Tablet by mouth in the morning and 1 Tablet before bedtime. Active Fluticasone Propionate 50 MCG/ACT Nasal Suspension (Flonase)Indicat ions:Chronic maxillary sinusitis Administer 2 Sprays into each nostril in the morning. 48 g 3 4 12:10 PM EST 024 Active Atorvastatin Calcium 40 MG Oral Tablet (Lipitor)Indicat ions:Dyslipidemi a, goal LDL below 70 TAKE ONE TABLET BY MOUTH EVERY MORNING 90 Tablet 2 4 11:56 AM EST 024 2024 Active Polyethylene Glycol 3350 17 GM/SCOOP Oral Powder (MiraLax) Take 17 g by mouth at bedtime. Active Octreotide Acetate 50 MCG/ML Subcutaneous Solution Prefilled Syringe Inject 50 mcg under the skin 2 times a day. 60 mL 5 5 2:07 PM EST 024 Active Gabapentin 300 MG Oral Capsule (Neurontin)Indic ations:Spinal stenosis of lumbar region without neurogenic claudication Take 1 Capsule by mouth in the morning. 90 Capsule 3 4 10:56 AM EST 024 Active Vitamin D (Ergocalciferol) 1.25 MG (76816 UT) Oral Capsule (Drisdol)Indicat ions:Vitamin D deficiency Take 1 Capsule by mouth Every Month. 6 Capsule 3 4 6:55 AM EDT Active PreserVision AREDS 2+Multi Vit Oral Capsule Take 1 Capsule by mouth in the morning and 1 Capsule before bedtime. 180 Capsule 3 Active Carvedilol 25 MG Oral Tablet (Coreg)Indicatio ns:HTN, goal below 140/90 Take 1/2 Tablet by mouth 2 times a day with morning and evening meals. 180 Tablet 3 4 4:00 PM EST 024 Active metFORMIN HCl ER 500 MG Oral Tablet Extended Release 24 Hour (Glucophage XR)Indications:T ype 2 diabetes mellitus with stage 3b chronic kidney disease, without long-term current use of insulin (HCC) Take 1 Tablet by mouth daily. 90 Tablet 3 4 4:00 PM EST 024 Active Additional Information Patient taking differently:500 mg OralDaily(AM), Reported on 09/07/2024 Empagliflozin 25 MG Oral Tablet (Jardiance)Indic ations:Type 2 diabetes mellitus with hyperglycemia, without long-term current use of insulin (HCC),Type 2 diabetes mellitus with stage 3b chronic kidney disease, without long-term current use of insulin (HCC) Take 1 Tablet by mouth in the morning. 90 Tablet 3 4 10:56 AM EST Active Gabapentin 600 MG Oral Tablet (Neurontin) TAKE ONE TABLET BY MOUTH TWICE A DAY AT NOON AND AT BEDTIME IN ADDITION TO A 100MG DOSE IN THE MORNING 180 Tablet 1 4 12:44 PM EST Active Xultophy 100-3.6 UNIT-MG/ML Subcutaneous Solution Pen-injector (Insulin Degludec-Liraglu tide) Inject up to 44 units under the skin daily per titration chart from [facility] clinic. 45 mL 3 4 12:03 PM EST Active Zoster Vac Recomb Adjuvanted 50 MCG/0.5ML Intramuscular Suspension Reconstituted (Shingrix)Indica tions:Need for vaccination for zoster Inject 0.5 mL into a large muscle now and repeat dose in 60 to 180 days 1 Each 4 10:06 AM EST Active Insulin Glargine Solostar 100 UNIT/ML Subcutaneous Solution Pen-injector (Lantus SoloStar)Indicat ions:Type 2 diabetes mellitus with hyperglycemia, with long-term current use of insulin (HCC) Taper and transition to Xultophy per [facility] titration chart. Active Pen Lostine 31G X 5 MMIndications:Ty pe 2 diabetes mellitus with hyperglycemia, with long-term current use of insulin (HCC) Use as directed with glargine insulin once daily 300 Each 3 Active Triamcinolone Acetonide 0.1 % External Cream (Aristocort)Nettie cations:Intrinsi c atopic dermatitis Apply topically to affected area 2 times a day. 60 g 5 5 4:22 PM EST 025 Active tiZANidine HCl 2 MG Oral Tablet (Zanaflex)Indica tions:Spinal stenosis of lumbar region without neurogenic claudication Take 1 Tablet by mouth at bedtime as needed for Muscle spasms. 90 Tablet 1 5 4:22 PM EST 025 Active Losartan Potassium 100 MG Oral Tablet (Cozaar)Indicati ons:HTN, goal below 140/90 Take 1 Tablet by mouth in the morning. 90 Tablet 1 4 8:29 AM EDT 024 2024 Discontinued(R efill) Gabapentin 600 MG Oral Tablet (Neurontin) Take 1 Tablet by mouth in the morning and 1 Tablet before bedtime. Noon and night. 2024 Discontinued(M edication List Clean Up) tiZANidine HCl 2 MG Oral Tablet (Zanaflex)Indica tions:Spinal stenosis of lumbar region without neurogenic claudication Take 1 Tablet by mouth at bedtime as needed for Muscle spasms. 90 Tablet 1 11:36 AM EDT 024 2024 Discontinued(R efill) tiZANidine HCl 2 MG Oral Tablet (Zanaflex)Indica tions:Spinal stenosis of lumbar region without neurogenic claudication Take 1 Tablet by mouth at bedtime as needed for Muscle spasms. 90 Tablet 1 025 2024 Discontinued Hospital, Clinic, or Other Facility Administered Medication Ordered Dose Route Frequency Start Date End Date Status Albuterol Sulfate (Proventil) (2.5 MG/3ML) 0.083% inhalation solution 2.5 mgIndications:ILD (interstitial lung disease) (HCC),BEARDEN (dyspnea on exertion) 2.5 mg NEBULIZER Q4H PRN 12/12/2023 Act jose documented as of this encounter (statuses as of 09/13/2024) Active Problems Problem Noted Date Diagnosed Date [...] 12/07/2022 Bilateral impacted cerumen 10/22/2022 Atherosclerosis of viejas co ronary artery without angina pectoris 07/15/2022 [...] as of this encounter (statuses as of 09/13/2024) Resolved Problems Problem Noted Date Diagnosed Date [...] as of this encounter (statuses as of 09/13/2024) Immunizations Name Administration Dates Next Due COVID-19 mRNA, LNP-s, No Pre serve, 2-Dose Series (Spinal Restoration) 07/03/2021,12/27/2020,12/06/2020 COVID-19, MRNA-LNP, PF, 30 M CG/0.3 mL, 12 YRS AND ABOVE, IM ([employer]-Comirnaty) 05/22/2024,02/22/2024,06/16/2023 Pneumococcal Conjugate Vacci ne, 20-valent (Fltopzl92) 12/07/2022 Pneumococcal Polysaccharide PPV23 (Pneumovax) 09/08/2020 RSV [...] AM EDT documented as of this encounter Last Filed Vital Signs Vital Sign Reading Time Taken Comments Blood Pressure 138/68 09/07/2024 8:50 AM EST Pulse 71 09/07/2024 8:50 AM EST Temperature 36.3 C (97.4 F) 09/07/2024 8:50 AM ES T Respiratory Rate - - Oxygen Saturation 94% 09/07/2024 8:50 AM EST Inhaled Oxygen Concentration - - Weight 109.1 kg (240 lb 9.6 oz) 09/07/2024 8:50 AM EST Height - - Body Mass Index 34.52 05/03/2024 12:33 PM EDT documented in this encounter Functional Status * Are you [...] Alexandr Hernandez RN documented in this encounter Patient Instructions * Patient Instructions* Sandra De Jesus, JOSEE - 09/07/2024 8:48 AM EST Diabetes: Keeping Feet Healthy Inspect your feet every day for signs of a problem. Diabetes can damage nerves in your feet and cause neuropathy. This condition makes it hard for you to feel injuries or sore spots. Diabetes can also change blood flow, making it harder for small problems, like a blister, to heal properly. In fact, minor injuries can quickly become serious infections that send you to the hospital. Practice self-care to protect your feet and keep them healthy. Take Special Care Inspect your feet daily for problems such as redness, blisters, cracks, dry skin, or numbness. Use a mirror to see the bottoms of your feet. Or, ask for help. Manage your diabetes. Monitor and control your blood sugar. Take all your medications as prescribed. Avoid walking barefoot, even indoors. Wash your feet with warm water and mild soap. Dry well, especially between toes. Dont treat corns or calluses yourself. Talk to your doctor or marketing rotation associate (a doctor who specializes in foot care) if you need assistance trimming your toenails. Use moisturizing cream or lotion if you have dry skin, but dont use it between toes. Dont use heating pads on your feet. If you have neuropathy, you could get a burn and not feel it. Stop smoking. Smoking restricts blood flow and can make it harder for wounds to heal. Have Regular Checkups Foot problems can develop quickly. So be sure to follow your healthcare teams schedule for regular checkups. During office visits, take off your shoes and socks as soon as you get in the exam room. Ask your healthcare provider to examine your feet for problems. This will make it easier to find and treat small skin irritations before they get worse. Regular checkups can also help keep track of the blood flow and feeling in your feet. If you have neuropathy, you may need to have checkups more often. Wear Proper Footwear Wearing proper footwear is very important. If areas of your feet have been damaged by too much pressure, your healthcare provider may recommend changing your footwear. In some cases, avoiding high heels or tight work boots may be all thats needed. Or, your healthcare provider may recommend special shoes or custom inserts. These help protect your feet and keep existing irritations from getting worse. If you need special footwear, ask your healthcare provider if you qualify for [facility] diabetic shoe program. Make Sure Shoes and Socks Fit Any pair of shoes--new or old--should feel comfortable as soon as you put them on. There shouldnt be any rubbing when you walk. Wear the right shoe for any activity. For instance, a running shoe is designed to keep your feet injury-free while jogging. Buy shoes at the end of the day, when your feet are larger. Make sure they provide support without feeling too loose. Make sure your socks fit, t oo. Wear soft, seamless, well-padded socks for activity. Cotton or microfiber socks are best to help to absorb sweat. To protect your feet, avoid shoes that are open-toed or open-heeled. If you have questions about what kinds of shoes and socks are best, talk to your healthcare team. Get Regular Exercise Regular exercise improves blood flow in your feet. It also increases foot strength and flexibility.Gentle exercises, like walking or riding a stationary bicycle, are best. You can also do special foot exercises. Just be sure to talk with your healthcare provider before starting any exercise program. Also mention if any exercise causes pain, redness, or other signs of foot problems. Note: If you have any kind of break in the skin of your foot or ankle, keep the area clean. Then call your doctor--especially if the area doesnt appear to be healing. 1435-1197 [employer], [address] [place] [address], [place] [address]. All rights reserved. This information is not intended as a substitute for professional medical care. Always follow your healthcare professional's instructions. Diabetes: Keeping Feet Healthy Inspect your feet every day for signs of a problem. Diabetes can damage nerves in your feet and cause neuropathy. This condition makes it hard for you to feel injuries or sore spots. Diabetes can also change blood flow, making it harder for small problems, like a blister, to heal properly. In fact, minor injuries can quickly become serious infections that send you to the hospital. Practice self-care to protect your feet and keep them healthy. Take Special Care Inspect your feet daily for problems such as redness, blisters, cracks, dry skin, or numbness. Use a mirror to see the bottoms of your feet. Or, ask for help. Manage your diabetes. Monitor and control your blood sugar. Take all your medications as prescribed. Avoid walking barefoot, even indoors. Wash your feet with warm water and mild soap. Dry well, especially between toes. Dont treat corns or calluses yourself. Talk to your doctor or marketing rotation associate (a doctor who specializes in foot care) if you need assistance trimming your toenails. Use moisturizing cream or lotion if you have dry skin, but dont use it between toes. Dont use heating pads on your feet. If you have neuropathy, you could get a burn and not feel it. Stop smoking. Smoking restricts blood flow and can make it harder for wounds to heal. Have Regular Checkups Foot problems can develop quickly. So be sure to follow your healthcare teams schedule for regular checkups. During office visits, take off your shoes and socks as soon as you get in the exam room. Ask your healthcare provider to examine your feet for problems. This will make it easier to find and treat small skin irritations before they get worse. Regular checkups can also help keep track of the blood flow and feeling in your feet. If you have neuropathy, you may need to have checkups more often. Wear Proper Footwear Wearing proper footwear is very important. If areas of your feet have been damaged by too much pressure, your healthcare provider may recommend changing your footwear. In some cases, avoiding high heels or tight work boots may be all thats needed. Or, your healthcare provider may recommend special shoes or custom inserts. These help protect your feet and keep existing irritations from getting worse. If you need special footwear, ask your healthcare provider if you qualify for [employer] diabetic shoe program. Make Sure Shoes and Socks Fit Any pair of shoes--new or old--should feel comfortable as soon as you put them on. There shouldnt be any rubbing when you walk. Wear the right shoe for any activity. For instance, a running shoe is designed to keep your feet injury-free while jogging. Buy shoes at the end of the day, when your feet are larger. Make sure they provide support without feeling too loose. Make sure your socks fit, t oo. Wear soft, seamless, well-padded socks for activity. Cotton or microfiber socks are best to help to absorb sweat. To protect your feet, avoid shoes that are open-toed or open-heeled. If you have questions about what kinds of shoes and socks are best, talk to your healthcare team. Get Regular Exercise Regular exercise improves blood flow in your feet. It also increases foot strength and flexibility.Gentle exercises, like walking or riding a stationary bicycle, are best. You can also do special foot exercises. Just be sure to talk with your healthcare provider before starting any exercise program. Also mention if any exercise causes pain, redness, or other signs of foot problems. Note: If you have any kind of break in the skin of your foot or ankle, keep the area clean. Then call your doctor--especially if the area doesnt appear to be healing. [phone] [employer], [address] [place] [address], [place] [address]. All rights reserved. This information is not intended as a substitute for professional medical care. Always follow your healthcare professional's instructions. documented in this encounter Progress Notes * Javy Moscoso DO - 09/07/2024 9:14 AM EST Images from the original note were not included. History of Present Illness Walker Mancini is a 74 year old male that presents for Follow Up Patient is a 74-year-old male here for medical follow-up. Patient has a history of hypertension, CKD 3, diabetes mellitus type 2, dyslipidemia, emphysema, carcinoid tumor rectum, AV malformation of small bowel, lumbar spinal stenosis, atopic dermatitis, vitamin-D deficiency. Patient is here with in attendance. Patient feels generally well and is following a diet exercise program.Patient denies fatigue fever chills or sweats. Patient denies nasal congestion sore throat or earache. Patient denies cough or sputum. Patient denies chest pain shortness breath palpitations or edema. Patient denies abdominal pain nausea vomiting diarrhea constipation. Patient denies urinary frequency dysuria urgency or hematuria. Patient complains of chronic low back pain and stiffness. Patient denies radiation of pain, muscle weakness or numbness. Patient denies headache dizziness weakness or numbness. Patient complains of dry itching skin. Review systems otherwise negative Physical Exam Vitals: 09/07/24 0850 Temp: 97.4 F (36.3 C) Pulse: 71 SpO2: 94% BP: 138/68 BP Readings from Last 3 Encounters: 09/07/24 138/68 08/08/24 148/69 07/24/24 112/73 Wt Readings from Last 3 Encounters: 09/07/24 240 lb 9.6 oz (109.1 kg) 08/08/24 238 lb 12.8 oz (108.3 kg) 07/24/24 236 lb 9.6 oz (107.3 kg) BMI Readings from Last 3 Encounters: 09/07/24 34.52 kg/m 08/08/24 34.26 kg/m 07/24/24 33.95 kg/m BP 138/68 (BP Site: Right Arm, BP Position: Sitting, BP Cuff Size: Regular) | Pulse 71 | Temp 97.4 F (36.3 C) (Tympanic) | Wt 240 lb 9.6 oz (109.1 kg) | SpO2 94% | BMI 34.52 kg/m | BSA 2.32 m General: alert, healthy, and no distress [...] Pulses: carotid=2/4 w/o bruits Abdomen: abdomen soft, non-tender, normal bowel sounds, and no masses or organomegaly Back: back symmetric, no curvature, no costovertebral angle tenderness, range of motion is normal Extremities: less than 2 second capillary refill, no joint deformities, effusion, or inflammation Neuro Exam: alert & oriented x 3 with fluent speech, no focal motor/sensory deficits, gait normal, reflexes normal and symmetric Skin: skin color, texture, turgor are normal, no rashes or significant lesions I have reviewed the following results: Serum iron, ferritin,, Hemoglobin A1C, and CBC Assessment and Plan 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 Continue present medication Losartan 100 mg 1 tab once daily Carvedilol 25 mg 1/2 tab twice daily - COMPREHENSIVE METABOLIC PANEL; Future Type 2 diabetes mellitus with stage 3b chronic kidney disease, with long-term current use of insulin (HCC) Stable Continue present medication Jardiance 25 mg 1 tab once daily Metformin ER 500 mg 1 tab once daily Xultophy 44 units once daily Follow with [facility] pharmacist for insulin dose adjustment - COMPREHENSIVE METABOLIC PANEL; Future Type 2 diabetes mellitus with hemoglobin A1c goal of less than 8.0% (HCC) Stable Continue present medical therapy as above Reduced caloric intake diabetic diet and exercise - ALBUMIN / CREATININE RATIO, URINE; Future - DIABETES FOOT EXAM Dyslipidemia, goal LDL below 70 Stable Continue present medication Atorvastatin 40 mg 1 tab once daily - LIPID PANEL WITH DIRECT LDL IF TG IS HIGH; Future - COMPREHENSIVE METABOLIC PANEL; Future Centrilobular emphysema (HCC) Stable Carcinoid tumor of rectum, unspecified whether malignant Stable Follow with Gastroenterology Spinal stenosis of lumbar region without neurogenic claudication Stable Avoid strenuous activities, no heavy lifting Warm compresses four times daily affected area Tylenol OTC as directed p.r.n. - tiZANidine HCl 2 MG Oral Tablet (Zanaflex); Take 1 Tablet by mouth at bedtime as needed for Muscle spasms. AVM (arteriovenous malformation) of small bowel, acquired Stable Follow with Gastroenterology Continue present medication Octreotide inject 50 mcg subcutaneous twice daily - CBC WITH WBC DIFFERENTIAL; Future - IRON SCREEN, INCLUDING TIBC; Future Intrinsic atopic dermatitis Use moisturizing soap and lotion - Triamcinolone Acetonide 0.1 % External Cream (Aristocort); Apply topically to affected area 2 times a day. Vitamin D deficiency Stable Continue present medication Vitamin-D 43957 units 1 cap once monthly Morbid (severe) obesity due to excess calories (HCC) Reduced caloric intake diabetic diet and exercise Iron deficiency anemia due to chronic blood loss Stable Continue present medication therapy Follow with Gastroenterology - CBC WITH WBC DIFFERENTIAL; Future - IRON SCREEN, INCLUDING TIBC; Future Class 1 obesity due to excess calories with serious comorbidity and body mass index (BMI) of 34.0 to 34.9 in adult Reduced caloric intake diabetic diet and exercise Wrap-Up Time: I spent a total of Greater than 55 mins (exact time 55 mins) on the date of service in preparation,delivery, and documentation of the care provided to Walker Mancini excluding any time spent in theperformance of separately billed services. * Sandra De Jesus LPN - 09/07/2024 8:58 AM EST Socks and Shoes Removed for Annual Diabetic Foot Screening RIGHT FOOT: No Reddened, Cracking, Or Open Areas Noted. RIGHT Dorsalis Pedis Pulse: Palpable RIGHT Posterior Tibial Pulse: Palpable RIGHT Monofilament:Patient reports feeling monofilament pressure on plantar surface of foot LEFT FOOT: No Reddened, Cracking or Open Areas Noted. LEFT Dorsalis Pedis Pulse: Palpable LEFT Posterior Tibial Pulse: Palpable LEFT Monofilament:Patient reports feeling monofilament pressure on plantar surface of foot Do you need diabetic shoes: No Pt states he only lightly feels on the heal of both feet. DM Foot Exam completed today. Provider aware. Sandra De Jesus LPN documented in this encounter Plan of Treatment Upcoming Encounters Date Type Department Care Team (Late st Contact Info) Description 09/14/2024 11:30 AM EST Office Visit Hematology/Oncology [facility] [address] [place] [id number] Katt Mullen CRNP [address] [place] [address] 09/18/2024 2:10 PM EST Telemedicine Family Practice [address] [facility] [address] [facility] [place] [id number] College, Pharmacist [address] [address] 09/28/2024 8:00 AM EST Office Visit Family Practice [address] [facility] [address] [facility] [place] [phone] College, Pharmacist [address] [place] [address] 11/30/2024 9:30 AM EDT Office Visit Gastroenterology, [facility] [address] [facility] [place] [address] Teddy Mullen CRNP [address] [place] [address] 12/03/2024 8:10 AM EDT Laboratory Laboratory Patient Service [place], [address] [phone] [place], Lab [address] [address] 12/06/2024 8:40 AM EDT Office Visit Family Practice 65 [facility], [place] [address] [place] [address] Javy Moscoso, DO [address] [place] [id number] 02/15/2025 10:00 AM EDT Office Visit Sleep Disorders Ctr [place], [place] [address] [facility] [place] [phone] Debby Cornejo, [address] [facility] [place] [address] 04/10/2025 10:40 AM EDT [facility] [address] [facility] [place] [address] Augusto Lerner MD [address] [place] [address] Scheduled Orders Name Type Priority Associated Diagnoses Orde r Schedule LIPID PANEL WITH DIRECT LDL IF TG IS HIGH Lab Routine Dyslipidemia, goal LDL below 70 Expected: 12/06/2024, Expires: 09/07/2025 CBC WITH WBC DIFFERENTIAL Lab Routine AVM (arteriovenous malformation) of small bowel, 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 Expected: 12/06/2024 (Approximate), Expires: 09/07/2025 IRON SCREEN, INCLUDING TIBC Lab Routine AVM (arteriovenous malformation) of small bowel, 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 Expected: 12/06/2024 (Approximate), Expires: 09/07/2025 COMPREHENSIVE METABOLIC PANEL Lab Routine 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 stage 3b chronic kidney disease, with long-term current use of insulin (HCC) Dyslipidemia, goal LDL below 70 Expected: 12/06/2024 (Approximate), Expires: 09/07/2025 Scheduled Procedures Name Priority Associated Diagnoses Date/Ti me COLONOSCOPY FLEXIBLE PROXIMA L DIAGNOSTIC Recall History of colonic polyps Health Maintenance Due Date Last Done Comments Cologuard 01/12/1997 Sigmoidoscopy 01/12/1997 Fecal Occult Blood Test 11/18/2023 11/18/19 23, 11/17/2022, 03/16/2022, Additional history exists CKD PHOS USE SMARTSET 23092 05/05/2024 090 02/2023, 02/02/2023, 01/11/2022, Additional history exists Adult Wellness Visit 09/28/2024 09/28/2023 GFR 12/17/2024 06/18/2024, 03/30, 03/09/2024, Additional history exists Depression Screening 12/21/2024 12/22/2023 HbA1c 02/01/2025 08/03/2024, 03/30, 12/15/2023, Additional history exists Diabetic Eye Exam 03/06/2025 03/06/2024, , 08/24/2023, Additional history exists Colonoscopy 05/03/2025 05/03/2024, 090 12/2023, 12/10/2022, Additional history exists Colorectal Cancer Screening 05/03/2025 O2 ASSESSMENT COMPLETED IN PAST YEAR FOR COPD 05/03/2025 05/03/2024 CKD HGB USE SMARTSET 03614 08/20/202508/20, 08/20/2024, 07/19/2024, Additional history exists Albumin/Creatinine Ratio 09/07/2025 025, [...] Not on filedocumented as of this encounter Results * (ABNORMAL) ALBUMIN / CREATININE RATIO, URINE (09/07/2024 9:45 AM EST) Albumin, Random Urine 2.00 mg/dL 09/07/2024 4:37 PM EST [facility] Creatinine, Random Urine 20 mg/dL 09/07/2024 4:37 PM EST [facility] Albumin / Creatinine Ratio, Urine 100(H) <30 mg/g Creat 09/07/2024 4:37 PM EST LAB[facility]ATORY [facility] Urine Urine specimen / Unknown Non-blood Collection / Unknown 09/07/2024 9:45 AM EST 09/07/2024 9:45 AM EST Narrative [facility] - 09/07/2024 4:37 PM EST Normal: <30 mg/g creatinine High: 30-300 mg/g creatinine Very High: >300 mg/g creatinine Nephrotic: >2200 mg/g creatinine us Javy Moscoso DO LAB URINE ORDERABLES Final R esult LAB[facility]ATORY [facility] [address] [place] [address] documented in this encounter Visit Diagnoses Diagnosis 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)- Primary Type 2 diabetes mellitus with stage 3b chronic kidney disease, with long-term current use of insulin (HCC) Type 2 diabetes mellitus with hemoglobin A1c goal of less than 8.0% (HCC) Dyslipidemia, goal LDL below 70 Other and unspecified hyperlipidemia Centrilobular emphysema (HCC) Other emphysema Carcinoid tumor of rectum, unspecified whether malignant Spinal stenosis of lumbar region without neurogenic claudication Spinal stenosis, lumbar region, without neurogenic claudication AVM (arteriovenous malformation) of small bowel, acquired Intrinsic atopic dermatitis Vitamin D deficiency Unspecified vitamin D deficiency Morbid (severe) obesity due to excess calories (HCC) Iron deficiency anemia due to chronic blood loss Iron deficiency anemia secondary to blood loss (chronic) Class 1 obesity due to excess calories with serious comorbidity and body mass index (BMI) of 34.0 to 34.9 in adult documented in this encounter Advance Directives * [...] Power of Attor kwabena? No Care Teams Tube Mill Operator Relationship Specialty Start Date End Date Javy Moscoso DO [address] [place] [id number] PCP - General Family Medicine 07/04/23 documented as of this encounter"
--- OUTSIDE RECORDS SUMMARY | 2024-11-03 09:38 | External Medical Summary ---
Author Name Unknown Address Unknown Organization [id number]:LABORATORY [facility] - [address] [place] [address] Laboratory Report Ordering Provider Test Date Status MONTSE MEJIA 09/14/2024 11:54:04 Final Observation Date Value Abnormality Reference (Units ) Status Folic Acid 09/14/2024 11:54:04 14.6 >4.5 (ng/ mL) Final Performing Location [facility] - [address] [place] [address]
--- OUTSIDE RECORDS SUMMARY | 2024-11-03 09:38 | External Medical Summary ---
Author Name Unknown Address Unknown Organization K09:[facility]ATORY [place] [address] [place] [address] Laboratory Report Ordering Provider Test Date Status MONTSE MEJIA 09/14/2024 11:54:04 Final Observation Date Value Abnormality Reference (Units ) Status SYNC LEUKOCYTES IN BLOOD BY AUTOMATED COUNT 09/14/2024 11:54:04 6.05 4.00-10.80 (K/uL) Final Segs 09/14/2024 11:54:04 77.2 Above high normal 40.0-75.0 (%) Final Lymphs % 09/14/2024 11:54:04 14.7 Below low normal 18.0-42.0 (%) Final Monos 09/14/2024 11:54:04 5.6 1.0-11.0 (%) Final Eosinophils 09/14/2024 11:54:04 1.8 0.0-6.0 (%) Final Basos 09/14/2024 11:54:04 0.7 0.0-2.0 (%) Final Absolute Segs 09/14/2024 11:54:04 4.67 1.80-7.70 (K/uL) Final Lymphs, absolute 09/14/2024 11:54:04 0.89 Below low normal 1.00-4.80 (K/ul) Final Monos, Abs 09/14/2024 11:54:04 0.34 0.00-1.10 (K/uL) Final Eos, Abs 09/14/2024 11:54:04 0.11 0.00-0.70 (K/uL) Final Basos, Abs 09/14/2024 11:54:04 0.04 0.00-0.20 (K/uL) Final Performing Location LAB[facility]ATORY [place] [address] [place] [address]
--- OUTSIDE RECORDS SUMMARY | 2024-11-03 09:38 | External Medical Summary | Summary of Care ---
Author Name Unknown Organization [facility] Address [address] [place] [address] Phone [phone] Care Team Providers Care Lining Stitcher Name Role Phone Javy Moscoso DO Primary Care Provider + [phone] Encounter Details Date Type Department Care Team (Late st Contact Info) Description 09/16/2024 Telephone Hematology/Oncology [facility] [place] [address] [facility] [place] [address] Katt Mullen CRNP [address] [place] [address] Allergies Active Allergy Reactions Criticality Noted Date Comments Lisinopril Unknown Low 11/15/2022 Verapamil Medium 06/26/2020 Heart Block documented as of this encounter (statuses as of 09/16/2024) Medications CPAP every night at bedtime. Active [...] every 10 days. E11.9 Active Dexcom G7 Data Examination Clerk Device Use as directed. Use as [...] 4 Active Vitamin D (Ergocalciferol) 1.25 MG (36372 UT) Oral Capsule (Drisdol)Indicati ons:Vitamin D deficiency [...] the skin daily per titration chart from [facility] clinic. 45 mL 3 08/23/2024 12:03 [...] per MTD titration chart. 4 Active Pen [place] 31G X 5 MMIndications:Typ e 2 diabetes mellitus with hyperglycemia, with long-term current use of insulin ([facility]) Use as directed with glargine [...] as of this encounter (statuses as of 09/16/2024) Active Problems Problem Noted Date Diagnosed Date [...] Bilateral impacted cerumen 10/22/2022 Atherosclerosis of [place] co ronary artery without angina pectoris 07/15/2022 [...] as of this encounter (statuses as of 09/16/2024) Resolved Problems Problem Noted Date Diagnosed Date [...] as of this encounter (statuses as of 09/16/2024) Immunizations Name Administration Dates Next Due COVID-19 mRNA, LNP-s, No Pre serve, 2-Dose Series (Informaat) 07/03/2021,12/27/2020,12/06/2020 COVID-19, MRNA-LNP, PF, 30 M CG/0.3 mL, 12 YRS AND ABOVE, IM (PFIZER-Comirnaty) 05/22/2024,02/22/2024,06/16/2023 Pneumococcal Conjugate Vacci ne, 20-valent ([id number]) 12/07/2022 Pneumococcal Polysaccharide PPV23 (Pneumovax) 09/08/2020 RSV [...] No 12/22/2023 Does the household have a [facility] source of income? (Household - for ages [...] 2:10 PM EST Telemedicine Family Practice [address] [facility] [phone] College, Pharmacist [address] [address] 09/28/2024 8:00 AM EST Office Visit Family Practice [address] [facility] [address] [facility] [phone] College, Pharmacist [address] [place] [address] 11/30/2024 9:30 AM EDT Office Visit Gastroenterology, [facility] 132 [facility] [place] [address] Teddy Mullen CRNP [address] [facility] [place] [address] 12/03/2024 8:10 AM EDT Laboratory [facility], [address] [phone] [address] 12/06/2024 8:40 AM EDT Office Visit Family Practice [address] [facility] [address] [place] [address] Javy Moscoso, [address] [place] [address] 02/15/2025 10:00 AM EDT Office Visit Sleep Disorders Ctr [facility] 132 [facility] [place] [phone] Debby Cornejo, DO [address] [facility] [place] [address] 03/14/2025 9:00 AM EDT Office Visit Hematology/Oncology [facility] [address] [place] [phone] Katt Mullen CRNP [address] [facility] [place] [address] 04/10/2025 10:40 AM EDT Office Visit Nephrology, [facility] [address] [place] [address] Augusto Lerner MD [address] [place] [address] Scheduled Orders Name Type Priority Associated Diagnoses [...] Additional history exists CKD PHOS USE SMARTSET 15571 05/05/2024 090 02/2023, 02/02/2023, 01/11/2022, Additional history [...] 1 , 06/16/2023 CKD HGB USE SMARTSET 52754 09/14/202509/14, 09/14/2024, 08/20/2024, Additional history exists DTap/Tdap [...] Power of Attor kwabena? No Care Teams Lining Stitcher Relationship Specialty Start Date End Date Javy Moscoso DO [address] [place] [address] PCP - General Family Medicine 07/04/23 documented as of this encounter
--- OUTSIDE RECORDS SUMMARY | 2024-11-03 09:38 | External Medical Summary | Summary of Care ---
Author Name Unknown Organization [facility] Address [address] [place] [address] Phone [phone] Care Team Providers Care Side Panel Hanger Name Role Phone Javy Moscoso DO Primary Care Provider [phone] Reason for Visit * Reason Comments Follow Up 6 month follow up Encounter Details Date Type Department Care Team (Late st Contact Info) Description 09/14/2024 11:30 AM EST Office Visit Hematology/Oncology [facility] [address] [place] [address] Katt Mullen CRNP [address] [place] [address] Iron deficiency anemia due to chronic blood loss*; Chronic kidney disease, stage 3b (HCC); AVM (arteriovenous malformation) of small bowel, acquired; Carcinoid tumor of rectum, unspecified whether malignant Allergies Active Allergy Reactions Criticality Noted Date Comments Lisinopril Unknown Low 11/15/2022 Verapamil Medium 06/26/2020 Heart Block documented as of this encounter (statuses as of 09/14/2024) Medications CPAP every night at bedtime. Active Acetaminophen 500 MG Oral Tablet (Tylenol) Take 1 to 2 tablets by mouth every 6 hours as needed Active [employer] Custom Ultra 2 w/Device Kit USE DIRECTED TO [...] every 10 days. E11.9 Active Dexcom G7 Sheet Metal Fabricator Device Use as directed. Use as directed [...] 4 Active Vitamin D (Ergocalciferol) 1.25 MG (89258 UT) Oral Capsule (Drisdol)Indicati ons:Vitamin D deficiency [...] the skin daily per titration chart from [facility] clinic. 45 mL 3 08/23/2024 [...] (HCC) Taper and transition to Xultophy per [facility] titration chart. 4 Active Pen [place] 31G X 5 MMIndications:Typ e 2 diabetes [...] inhalation solution 2.5 mgIndications:ILD (interstitial lung disease) ([facility]),BEARDEN (dyspnea on exertion) 2.5 mg NEBULIZER [...] 12/07/2022 Bilateral impacted cerumen 10/22/2022 Atherosclerosis of upper [place] co ronary artery without angina pectoris 07/15/2022 [...] (PFIZER-Comirnaty) 05/22/2024,02/22/2024,06/16/2023 Pneumococcal Conjugate Vacci ne, 20-valent ([id number]) 12/07/2022 Pneumococcal Polysaccharide PPV23 (Pneumovax) 09/08/2020 RSV [...] Sign Reading Time Taken Comments Blood Pressure 108/67 09/14/2024 11:27 AM EST Pulse 76 09/14/2024 11:27 AM EST Temperature 36.3 C (97.3 F) 09/14/2024 1 1:27 AM EST Respiratory Rate - - Oxygen Saturation 91% 09/14/2024 11: 27 AM EST Inhaled Oxygen Concentration - - Weight 108.7 kg (239 lb 11.2 oz) 2024 11:27 AM EST Height - - Body Mass Index 34.39 05/03/2024 12:33 PM EDT documented in this [...] Alexandr Gutiérrez RN documented in this encounter Progress Notes * Katt Mullen CRNP - 09/14/2024 11:30 AM EST Hematology/Oncology Outpatient Clinic [place] [address] Name: Walker Mancini Date: 09/14/2024 CHIEF COMPLAINT: Walker Mancini is a 74 year old male patient of AUSTIN Cooper here today for f/u visit today. From Patient chart confirmed with patient. 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 Was reporting melena and had positive hemoccult. He was seen in GI clinic in October by Dr. 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 Was admitted at [facility] 11/30/22 - 12/02/22 for symptomatic anemia. Hgb [...] occasionally. Chews tobacco. Father from gastric cancer. Small Bowel Enteroscopy 03/28/23: Impression: - Normal esophagus. - Normal stomach. - Normal examined duodenum. - A single non-bleeding angioectasia in the jejunum. Treated with argon plasma coagulation (APC). - No specimens collected. Interval History: He had dizziness and had a blood count drawn and was hospitalized last week of January 2024 for anemia, Hb 6.1 on arrival to [facility], received 2 units of RBCs, Seen by [facility] who recommended OP EGD/Colonoscopy. Colonoscopy 05/03/24: Impression: - The examined portion of the ileum was normal. - Five 3 to 5 mm polyps in the ascending colon, removed with a cold snare. Resected and retrieved. - Two 3 to 4 mm polyps in the sigmoid colon, removed with a cold snare. Resected and retrieved. - Diverticulosis in the sigmoid colon. - Internal hemorrhoids. - The examination was otherwise normal on direct and retroflexion views. Recommendation: - Discharge patient to home (with escort). - Repeat colonoscopy in 1 year for surveillance based on pathology results. Small Bowel Enteroscopy 05/03/24: Impression: - Normal esophagus. - Congestive gastropathy. Biopsied. - Normal duodenal bulb. - The examined portion of the jejunum was normal. HISTORY OF PRESENT ILLNESS: Walker Mancini is a 74 year old male with a history as outlined above. Currently here for f/u visit today. Continues to have black bowel movements. Taking oral iron BID. Tolerating well. Energy and breathing is improved. Also taking Miralax once daily and bowels are moving once every two days. Continues on Octreotide per GI. Tolerated the iron infusion well. Past Medical History: Diagnosis Date Acute [...] Dunia De La Vega MD at END[facility]COPY [facility] COLONOSCOPY, DIAGNOSTIC (RECTUM) 12/10/2022 benign adenomatous polyps & small neuroendocrine growth (carcinoid) in the rectum, repeat 1 yr / COLONOSCOPY FLEXIBLE PROXIMAL DIAGNOSTIC performed by Chase Reyes MD at [facility] COLONOSCOPY, DIAGNOSTIC (RECTUM) 05/03/2024 diverticulosis/hemorrhoids/biopsies show adenomatous polyps/recall 1 year/COLONOSCOPY FLEXIBLE PROXIMAL DIAGNOSTIC performed by Drew Flores MD at ENDOSCOPY [facility] EGD, FLEXIBLE, DIAGNOSTIC N/A 03/17/2022 [facility], EGD z-line regular 41 cm from incisors, gastritis, otherwise normal / biopsies normal / EGD, FLEXIBLE, DIAGNOSTIC N/A 03/28/2023 single non-bleeding angioectasia jejunum, treated with APC/ESOPHAGOGASTRODUODENOSCOPY (EGD), FLEXIBLE, TRANSORAL, DIAGNOSTIC performed by Dominick Amador MD at [facility] EGD, FLEXIBLE, DIAGNOSTIC 05/03/2024 congestive gastropathy/ESOPHAGOGASTRODUODENOSCOPY (EGD), FLEXIBLE, TRANSORAL, DIAGNOSTIC performed by Drew Flores MD at ENDOSCOPY [facility] INJECT DX/THER SUBSTANCE INTERLAMINAR LUMBAR/SACRAL W IMAGE GUIDE 09/08/2022 INJECTION SPINE LUMBAR OR SACRAL performed by Yon Lizarraga, at OR [facility] SMALL BOWEL ENDOSCOPY DIAGNOSTIC N/A 05/06/2022 mild pseudomelanosis of stomach/few red spots, possible AVM's in mid jejunum/biopsies normal/SMALL INTESTINE ENDOSCOPY DIAGNOSTIC performed by Frederick Leija MD at OR [facility] SMALL BOWEL ENDOSCOPY DIAGNOSTIC 12/06/2022 normal / SMALL INTESTINE ENDOSCOPY DIAGNOSTIC performed by Dominick Amador MD at ENDOSCOPY [facility] Social History Socioeconomic History Marital status: Spouse name: Not on file Number of children: Not on file Years of education: Not on file Highest education level: Not on file Occupational History Not on file Tobacco Use Smoking status: Former Current packs/day: 0.00 Average packs/day: 1 pack/day for 20.0 years (20.0 ttl pk-yrs) Types: Cigarettes Start date: 1974 Quit date: 1994 Years since quittin.0 Passive exposure: Past Smokeless tobacco: Current Types: Chew Tobacco comments: 03/11/23 1 can per 1-2 days KHB Vaping Use Vaping status: Never Used Substance and Sexual Activity Alcohol use: Yes Comment: monthly Drug use: Not Currently Sexual activity: Not on file Other Topics Concern Not on file Social History Narrative 1 dog in his home. No mold. Social Needs Financial Resource Strain: Low Risk (12/22/2023) Financial Resource Strain Do you have any trouble paying for your medications, or do you think you might in the future? (Adult - for ages 18 years and over): No Does your family have trouble paying for medicine? (Household - for ages 0-17 years): Not on file Food Insecurity: No Food Insecurity (12/22/2023) Food Insecurity Do you need food for this week? (Adult - for ages 18 years and over): No Are you able to get enough food for your family? (Household - for ages 0-17 years): Not on file Does your family need food this week? (Household - for ages 0-17 years): Not on file Do you always have enough food for your family? (Household - for ages 0-17 years): Not on file Transportation Needs: No Transportation Needs (12/22/2023) Transportation Needs Do you have trouble getting a ride to medical visits or work? (Adult - for ages 18 years and over):Never True Does your family have a hard time getting a ride to doctors visits? (Household - for ages 0-17 years): Not on file Has lack of transportation kept you from medical appointments, meetings, work, or from getting things needed for daily living? Check all that apply. (Adult - for ages 18 years and over): Not on file Do you (or your family) have trouble finding or paying for a ride (transportation)? (Household - for ages 0-17 years): Not on file Social Connections: Socially Integrated (12/22/2023) Social Connections How often do you feel lonely or isolated from those around you? (Adult - for ages 18 years and over): Never Housing Stability: Low Risk (12/22/2023) Housing Stability Do you currently live in a retirement or have no steady place to sleep at night? (Adult - for ages 18 years and over): No Do you think you are at risk of becoming homeless? (Adult - for ages 18 years and over): No Does your family worry about paying for your home or becoming homeless? (Household - for ages 0-17 years): Not on file Are you homeless or worried that you might be in the future? (Adult - for ages 18 years and over): Not on file Are you (or your family) homeless or worried that you might be in the future? (Household - for ages0-17 years): Not on file Review of patient's allergies indicates: Allergen Reactions Verapamil Heart Block Lisinopril Unknown Current Outpatient Medications Medication Sig Dispense Refill CPAP every night at bedtime. Acetaminophen 500 MG Oral Tablet (Tylenol) Take 1 to 2 tablets by mouth every 6 hours as needed OneTouch [employer] 2 w/Device Kit USE DIRECTED TO TEST BLOOD SUGARS 1 Each 0 Torsemide 20 MG Oral Tablet (Demadex) TAKE ONE TABLET BY MOUTH EVERY MORNING 90 Tablet 3 Vitamin B-12 2500 MCG Sublingual Tablet Sublingual Place 1 Tablet under the tongue in the morning. DexAlltuition G7 Sensor Use as directed. Use as directed to monitor blood sugars daily. Replace sensor every 10 days. E11.9 metraTeccom G7 Sheet Metal Fabricator Device Use as directed. Use as directed to monitor blood sugars daily OneTouch Ultra In Vitro Strip (Glucose Blood) USE DIRECTED UP TO FOUR TIMES DAILY FOR HOME GLUCOSE TESTING 400 Strip 3 Docusate Sodium 100 MG Oral Capsule (Stool Softener) Take 1 Capsule by mouth in the morning and 1 Capsule before bedtime. (Patient not taking: Reported on 07/24/2024) Pantoprazole Sodium 40 MG Oral Tablet Delayed Release (Protonix) Take 1 Tablet by mouth in the morning and 1 Tablet before bedtime. 180 Tablet 3 Ferrous Sulfate 325 (65 Fe) MG Oral Tablet (Feosol) Take 1 Tablet by mouth in the morning and 1 Tablet before bedtime. Fluticasone Propionate 50 MCG/ACT Nasal Suspension (Flonase) Administer 2 Sprays into each nostril in the morning. 48 g 3 Atorvastatin Calcium 40 MG Oral Tablet (Lipitor) TAKE ONE TABLET BY MOUTH EVERY MORNING 90 Tablet 2 Polyethylene Glycol 3350 17 GM/SCOOP Oral Powder (MiraLax) Take 17 g by mouth at bedtime. Octreotide Acetate 50 MCG/ML Subcutaneous Solution Prefilled Syringe Inject 50 mcg under the skin 2times a day. 60 mL 5 Gabapentin 300 MG Oral Capsule (Neurontin) Take 1 Capsule by mouth in the morning. 90 Capsule 3 Vitamin D (Ergocalciferol) 1.25 MG (90808 UT) Oral Capsule (Drisdol) Take 1 Capsule by mouth Every Month. 6 Capsule 3 PreserVision AREDS 2+Multi Vit Oral Capsule Take 1 Capsule by mouth in the morning and 1 Capsule before bedtime. 180 Capsule 3 Carvedilol 25 MG Oral Tablet (Coreg) Take 1/2 Tablet by mouth 2 times a day with morning and evening meals. 180 Tablet 3 metFORMIN HCl ER 500 MG Oral Tablet Extended Release 24 Hour (Glucophage XR) Take 1 Tablet by mouthdaily. (Patient taking differently: Take 1 Tablet by mouth in the morning.) 90 Tablet 3 Empagliflozin 25 MG Oral Tablet (Jardiance) Take 1 Tablet by mouth in the morning. 90 Tablet 3 Gabapentin 600 MG Oral Tablet (Neurontin) TAKE ONE TABLET BY MOUTH TWICE A DAY AT NOON AND AT BEDTIME IN ADDITION TO A 100MG DOSE IN THE MORNING 180 Tablet 1 Xultophy 100-3.6 UNIT-MG/ML Subcutaneous Solution Pen-injector (Insulin Degludec-Liraglutide) Inject up to 44 units under the skin daily per titration chart from [facility] clinic. 45 mL 3 Zoster Vac Recomb Adjuvanted 50 MCG/0.5ML Intramuscular Suspension Reconstituted (Shingrix) Inject 0.5 mL into a large muscle now and repeat dose in 60 to 180 days 1 Each 0 Insulin Glargine Solostar 100 UNIT/ML Subcutaneous Solution Pen-injector (Lantus SoloStar) Taper and transition to Xultophy per [facility] titration chart. Pen [place] 31G X 5 MM Use as directed with glargine insulin once daily 300 Each 3 Triamcinolone Acetonide 0.1 % External Cream (Aristocort) Apply topically to affected area 2 times a day. 60 g 5 tiZANidine HCl 2 MG Oral Tablet (Zanaflex) Take 1 Tablet by mouth at bedtime as needed for Muscle spasms. 90 Tablet 1 Losartan Potassium 100 MG Oral Tablet (Cozaar) Take 1 Tablet by mouth in the morning. 90 Tablet 1 Current Facility-Administered Medications Medication Dose Route Frequency Provider Last Rate Last Admin Albuterol Sulfate (Proventil) (2.5 MG/3ML) 0.083% inhalation solution 2.5 mg 2.5 mg Nebulizer Q4H PRN Iván Nielsen MD 2.5 mg at 01/25/24 0715 REVIEW OF SYSTEMS: See HPI - otherwise negative OBJECTIVE: Filed Vitals: 09/14/24 1127 BP: 108/67 Pulse: 76 Temp: 36.3 C (97.3 F) TempSrc: Tympanic SpO2: 91% Weight: 108.7 kg (239 lb 11.2 oz) Wt Readings from Last 5 Encounters: 09/14/24 108.7 kg (239 lb 11.2 oz) 09/07/24 109.1 kg (240 lb 9.6 oz) 08/08/24 108.3 kg (238 lb 12.8 oz) 07/24/24 107.3 kg (236 lb 9.6 oz) 06/08/24 105.3 kg (232 lb 3.2 oz) PHYSICAL EXAM: General Appearance: Normal - Healthy appearing patient in no acute distress Lungs/Thorax: Normal respiratory effort Extremities: No edema Neurologic: Normal - Grossly intact LABS: N/A IMPRESSION/PLAN: Iron deficiency anemia d/t chronic blood loss 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 Further recommendations based on results. Continues on Octreotide per GI 50 mcg subq twice daily Next due for colonoscopy April 2025 Continue to follow with GI. Taking PPI BID. Continue sublingual vitamin b12 2500 mcg daily Avoid NSAIDS Patient may also be a candidate for maintenance IV Venofer in the future d/t presence of chronic blood loss. RTC in 6 months with provider with cbc/diff, cmp, iron screen and ferritin AUSTIN Nunes documented in this encounter Nursing Notes * Cheyanne Avila CMA - 09/14/2024 11:28 AM EST Patient identifed by name and birthdate Do you have any concerns about pain management for today's visit? No Living Will or Advance Directive for Health Care as noted on the problem list. [facility] is a way you can talk to your provider on line through e-mail. Would you like to sign up? I can activate it for you? ALREADY ACTIVE Filed Vitals: 09/14/24 1127 BP: 108/67 Pulse: 76 Temp: 36.3 C (97.3 F) TempSrc: Tympanic SpO2: 91% Weight: 108.7 kg (239 lb 11.2 oz) Patient was instructed to not get up on the exam table/exam chair until directed and assisted by their provider; patient is to remain seated in the chair/ wheelchair/ exam table/ exam chair for fall prevention and safety reasons. Patient is aware to have assistance to step down off exam table/exam chair with personnel. Patient voiced full comprehension of instructions. Patient reports sometimes when going from sitting position to standing he gets lightheaded. documented in this encounter Plan of Treatment Upcoming Encounters Date Type Department Care Team (Late st Contact Info) Description 09/18/2024 2:10 PM EST Telemedicine Family Practice [address] [place] [address] [facility], [place] [phone] College, Pharmacist [address] [place] [address] 09/28/2024 8:00 AM EST Office Visit Family Practice [address] [place] [address] [facility], [place] [phone] College, Pharmacist [address] [place] [address] 11/30/2024 9:30 AM EDT Office Visit Gastroenterology, [facility] [address] [address] Teddy Mullen CRNP 132 [facility] [place] [address] 12/03/2024 8:10 AM EDT Laboratory [facility], [address] [phone] [facility] [address] [place] [address] 12/06/2024 8:40 AM EDT Office Visit Family Practice [facility] [place] [address] [place] [address] Javy Moscoso DO [address] [place] [address] 02/15/2025 10:00 AM EDT Office Visit Sleep Disorders C[facility] [address] [place] [phone] Debby Cornejo DO [address] [place] [address] 03/14/2025 9:00 AM EDT Office Visit Hematology/Oncology [employer] [address] [facility] [place] [phone] Katt Mullen CRNP [address] [place] [address] 04/10/2025 10:40 AM EDT Office Visit Nephrology, [facility] [address] [facility] [place] [address] Augusto Lerner MD 200 [facility] [place] [address] Pending Results Name Type Priority Associated Diagnoses Date /Time VITAMIN B12 Lab Routine Iron deficiency anemia due to chronic blood loss Chronic kidney disease, stage 3b (HCC) AVM (arteriovenous malformation) of small bowel, acquired Carcinoid tumor of rectum, unspecified whether malignant 09/14/2024 11:54 AM EST FOLIC ACID Lab Routine Iron deficiency anemia due to chronic blood loss Chronic kidney disease, stage 3b (HCC) AVM (arteriovenous malformation) of small bowel, acquired Carcinoid tumor of rectum, unspecified whether malignant 09/14/2024 11:54 AM EST Scheduled Procedures Name Priority Associated Diagnoses Date/Ti me COLONOSCOPY FLEXIBLE PROXIMA L DIAGNOSTIC Recall History of colonic polyps Health Maintenance Due Date Last Done Comments Cologuard 01/12/1997 Sigmoidoscopy 01/12/1997 Fecal Occult Blood Test 11/18/2023 11/18/19 23, 11/17/2022, 03/16/2022, Additional history exists CKD PHOS USE SMARTSET 35038 05/05/2024 09/0 02/2023, 02/02/2023, 01/11/2022, Additional history [...] 1 , 06/16/2023 CKD HGB USE SMARTSET 05115 09/14/202509/14, 09/14/2024, 08/20/2024, Additional history exists DTap/Tdap [...] Power of Attor kwabena? No Care Teams Side Panel Hanger Relationship Specialty Start Date End Date Javy Moscoso DO [address] [place] [address] PCP - General Family Medicine 07/04/23 documented as of this encounter
--- OUTSIDE RECORDS SUMMARY | 2024-11-03 09:38 | External Medical Summary ---
Author Name Unknown Address Unknown Organization K01:[facility] [place] [address] [place] [address] Laboratory Report Ordering Provider Test Date Status MONTSE MEJIA 09/14/2024 11:54:04 Final Observation Date Value Abnormality Reference (Units ) Status Ferritin 09/14/2024 11:54:04 115 30-400 (ng /mL) Final Performing Location [facility] - [address] [place] [address]
--- OUTSIDE RECORDS SUMMARY | 2024-11-03 09:39 | External Medical Summary | Summary of Care ---
Author Name Unknown Organization [facility] Address [address] [place] [address] Phone [phone] Care Team Providers Care Settlement Clerk Name Role Phone Javy Moscoso DO Primary Care Provider Reason for Visit * Reason Comments Outpatient Testing Encounter Details Date Type Department Care Team (Late st Contact Info) Description 09/07/2024 9:50 AM EST Laboratory Laboratory, [place] [address] [place] [address] [place], Specimen Drop Off Lab [address] [place] [id number] Type 2 diabetes mellitus with hemoglobin A1c goal of less than 8.0% ([facility]) Allergies Active Allergy Reactions Criticality Noted Date Comments Lisinopril Unknown Low 11/15/2022 Verapamil Medium 06/26/2020 Heart Block documented as of this encounter (statuses as of 09/07/2024) Medications CPAP every night at bedtime. Active [...] every 10 days. E11.9 Active Dexcom G7 Car Oiler Device Use as directed. Use as directed [...] 08/13/2024 11:56 AM EST 4 025 Active Losartan Potassium 100 MG Oral Tablet (Cozaar)Indicatio ns:HTN, goal below 140/90 Take 1 Tablet by mouth in the morning. 90 Tablet 1 06/18/2024 8:29 AM EDT 4 Active Polyethylene Glycol 3350 17 GM/SCOOP Oral Powder (MiraLax) Take 17 g by mouth at bedtime. Active Octreotide Acetate 50 MCG/ML Subcutaneous Solution Prefilled Syringe Inject 50 mcg under the skin 2 times a day. 60 mL 5 08/09/2024 1:03 PM EST 4 Active Gabapentin 300 MG Oral Capsule (Neurontin)Indica tions:Spinal stenosis of lumbar region without neurogenic claudication Take 1 Capsule by mouth in the morning. 90 Capsule 3 07/18/2024 10:56 AM EST 4 Active Vitamin D (Ergocalciferol) 1.25 MG (84190 UT) Oral Capsule (Drisdol)Indicati ons:Vitamin D deficiency [...] the skin daily per titration chart from [facility] clinic. 45 mL 3 08/23/2024 12:03 [...] (HCC) Taper and transition to Xultophy per [facility] titration chart. 4 Active Pen [place] 31G X 5 MMIndications:Typ e 2 diabetes mellitus with hyperglycemia, with long-term current use of insulin (HCC) Use as directed with glargine insulin once daily 300 Each 3 4 Active Triamcinolone Acetonide 0.1 % External Cream (Aristocort)Indic ations:Intrinsic atopic dermatitis Apply topically to affected area 2 times a day. To affected area. 60 g 5 5 Active tiZANidine HCl 2 MG Oral Tablet (Zanaflex)Indicat ions:Spinal stenosis of lumbar region without neurogenic claudication Take 1 Tablet by mouth at bedtime as needed for Muscle spasms. 90 Tablet 1 5 Active Hospital, Clinic, or Other Facility Administered Medication Ordered Dose Route Frequency Start Date End Date Status Albuterol Sulfate (Proventil) (2.5 MG/3ML) 0.083% inhalation solution 2.5 mgIndications:ILD (interstitial lung disease) ([facility]),BEARDEN (dyspnea on exertion) 2.5 mg NEBULIZER Q4H PRN 12/12/2023 Act jose documented as of this encounter (statuses as of 09/07/2024) Active Problems Problem Noted Date Diagnosed Date [...] 12/07/2022 Bilateral impacted cerumen 10/22/2022 Atherosclerosis of [place] ronary artery without angina pectoris [...] as of this encounter (statuses as of 09/07/2024) Resolved Problems Problem Noted Date Diagnosed Date [...] as of this encounter (statuses as of 09/07/2024) Immunizations Name Administration Dates Next Due COVID-19 mRNA, LNP-s, No Pre serve, 2-Dose Series ([employer]) 07/03/2021,12/27/2020,12/06/2020 COVID-19, MRNA-LNP, PF, 30 M CG/0.3 mL, 12 YRS AND ABOVE, IM (PFIZER-Comirnaty) 05/22/2024,02/22/2024,06/16/2023 Pneumococcal Conjugate Vacci ne, 20-valent ([id number]) 12/07/2022 Pneumococcal Polysaccharide PPV23 (Pneumovax) 09/08/2020 RSV [...] No 12/22/2023 Does the household have a [facility] source of income? (Household - for [...] 09/14/2024 11:30 AM EST Office Visit Hematology/Oncology [facility] 200 [facility], [place] [phone] Katt Mullen CRNP 400 [facility] [place] [address] 09/18/2024 2:10 PM EST Telemedicine Family Practice 65 [facility] 293 [facility], [place] [phone] [place], Pharmacist [address] [place] [address] 09/28/2024 8:00 AM EST Office Visit Family Practice 65 [facility] 293 [facility], [place] [phone] [place], Pharmacist [address] [place] [address] 11/30/2024 9:30 AM EDT Office Visit Gastroenterology, [facility] [address] [place] [address] Teddy Mullen CRNP [address] [place] [address] 12/03/2024 8:10 AM EDT Laboratory Laboratory Patient Service [place], [address] [phone] [place] [address] [place] [address] 12/06/2024 8:40 AM EDT Office Visit Family Practice 65 [facility], [place] [address] [place] [address] Javy Moscoso, DO [address] [place] [address] 02/15/2025 10:00 AM EDT Office Visit [facility] [place] [place] [phone] Debby Cornejo, [facility] [address] 04/10/2025 10:40 AM EDT Office Visit Nephrology, [facility] [place] [address] Augusto Lerner MD 200 [facility] [place] [address] Pending Results Name Type Priority Associated Diagnoses Date /Time ALBUMIN / CREATININE RATIO, URINE Lab Routine Type 2 diabetes mellitus with hemoglobin A1c goal of less than 8.0% ([facility]) 09/07/2024 9:45 AM EST Scheduled Procedures Name Priority Associated Diagnoses Date/Ti me COLONOSCOPY FLEXIBLE PROXIMA L DIAGNOSTIC Recall History of colonic polyps Health Maintenance Due Date Last Done Comments Cologuard 01/12/1997 Sigmoidoscopy 01/12/1997 Fecal Occult Blood Test 11/18/2023 11/18/19 23, 11/17/2022, 03/16/2022, Additional history exists CKD PHOS USE SMARTSET 49113 05/05/2024 09/0 02/2023, 02/02/2023, 01/11/2022, Additional history exists Albumin/Creatinine Ratio 09/09/2024 09/09/2023, 11/2021 Adult Wellness Visit 09/28/2024 09/28/2023 GFR 12/17/2024 06/18/2024, 03/30, 03/09/2024, Additional history exists Depression Screening 12/21/2024 12/22/2023 HbA1c 02/01/2025 08/03/2024, 03/30, 12/15/2023, Additional history exists Diabetic Eye Exam 03/06/2025 03/06/2024, , 08/24/2023, Additional history exists Colonoscopy 05/03/2025 05/03/2024, 12/2023, 12/10/2022, Additional history exists Colorectal Cancer Screening 05/03/2025 O2 ASSESSMENT COMPLETED IN PAST YEAR FOR COPD 05/03/2025 05/03/2024 CKD HGB USE SMARTSET 41120 08/20/202508/20, 08/20/2024, 07/19/2024, Additional history exists Diabetic Foot Exam 09/07/2025 09/07/2024, 1 , [...] hemoglobin A1c goal of less than 8.0% ([facility]) documented in this encounter Advance Directives * [...] Power of Attor kwabena? No Care Teams Settlement Clerk Relationship Specialty Start Date End Date Javy Moscoso DO [address] [place] [address] PCP - General Family Medicine 07/04/23 documented as of this encounter
--- OUTSIDE RECORDS SUMMARY | 2024-11-03 09:39 | External Medical Summary ---
Author Name Unknown Address Unknown Organization K01:[facility] - [address] [place] [address] Laboratory Report Ordering Provider Test Date Status [place]STON ADEN 09/07/2024 09:45:27 Final Normal: <30 mg/g creatinine< br/>High: 30-300 mg/g creatinine
Very High: >300 mg/g creatinine
Nephrotic: >2200 mg/g creatinine Observation Date Value Abnormality Reference (Units ) Status Albumin, Urine 09/07/2024 09:45:27 2.00 (mg/dL) Final Creatinine, Urine 09/07/2024 09:45:27 20 (mg/dL) Final Albumin/Creatinine [Mass Ratio] in Urine 09/07/2024 09:45:27 100 Above high normal <30 (mg/g Creat) Final Performing Location [facility] - [address] [facility] [address]
--- OUTSIDE RECORDS SUMMARY | 2024-11-03 09:39 | External Medical Summary | Summary of Care ---
Author Name Unknown Organization [facility] Address [address] [place] [address] Phone [phone] Care Team Providers Care Assessment Services Manager Name Role Phone Javy Moscoso DO Primary Care Provider + [phone] Reason for Visit * Reason Comments Dosage Adjustment Via Phone (anticoag Cl inic) Diabetes Follow-Up Encounter Details Date Type Department Care Team (Late st Contact Info) Description 09/04/2024 3:30 PM EST Telemedicine Family Practice 65 [facility] [address] [place] [address] College, Pharmacist [address] [address] Type 2 diabetes mellitus with hyperglycemia, with long-term current use of insulin ([facility])* Allergies Active Allergy Reactions Criticality Noted Date Comments Lisinopril Unknown Low 11/15/2022 Verapamil Medium 06/26/2020 Heart Block documented as of this encounter (statuses as of 09/04/2024) Medications CPAP every night at bedtime. Active Acetaminophen 500 MG Oral Tablet (Tylenol) Take 1 to 2 tablets by mouth every 6 hours as needed 2 Active InfomousTouch Ultra 2 w/Device Kit USE DIRECTED TO [...] every 10 days. E11.9 Active Dexcom G7 Counter Tacker Device Use as directed. Use as directed [...] Active Gabapentin 600 MG Oral Tablet (Neurontin) Take 1 Tablet by mouth in the morning and 1 Tablet before bedtime. Noon and night. Active tiZANidine HCl 2 MG Oral Tablet (Zanaflex)Indicat ions:Spinal stenosis of lumbar region without neurogenic claudication Take 1 Tablet by mouth at bedtime as needed for Muscle spasms. 90 Tablet 1 06/15/2024 11:36 AM EDT 4 Active Vitamin D (Ergocalciferol) 1.25 MG (32198 UT) Oral Capsule (Drisdol)Indicati ons:Vitamin D deficiency [...] Patient taking differently:500 mg OralDaily(AM), Reported on 07/24/2024 Empagliflozin 25 MG Oral Tablet (Jardiance)Indica tions:Type [...] the skin daily per titration chart from [facility] clinic. 45 mL 3 08/23/2024 12:03 PM [...] (HCC) Taper and transition to Xultophy per [facility] titration chart. 4 Active Pen [place] 31G X 5 MMIndications:Typ e 2 diabetes mellitus with hyperglycemia, with long-term current use of insulin (HCC) Use as directed with glargine insulin once daily 300 Each 3 4 Active Hospital, Clinic, or Other Facility Administered Medication Ordered Dose Route Frequency Start Date End Date Status Albuterol Sulfate (Proventil) (2.5 MG/3ML) 0.083% inhalation solution 2.5 mgIndications:ILD (interstitial lung disease) (HCC),BEARDEN (dyspnea on exertion) 2.5 mg NEBULIZER Q4H PRN 12/12/2023 Act jose documented as of this encounter (statuses as of 09/04/2024) Active Problems Problem Noted Date Diagnosed Date DDD (degenerative disc disease), cervical 2023 Left [...] 12/07/2022 Bilateral impacted cerumen 10/22/2022 Atherosclerosis of [place] ronary artery without angina pectoris 07/15/2022 [...] as of this encounter (statuses as of 09/04/2024) Resolved Problems Problem Noted Date Diagnosed Date [...] as of this encounter (statuses as of 09/04/2024) Immunizations Name Administration Dates Next Due COVID-19 mRNA, LNP-s, No Pre serve, 2-Dose Series ([employer]) 07/03/2021,12/27/2020,12/06/2020 COVID-19, MRNA-LNP, PF, 30 M CG/0.3 mL, 12 YRS AND ABOVE, IM (PFIZER-Comirnaty) 05/22/2024,02/22/2024,06/16/2023 Pneumococcal Conjugate Vacci ne, 20-valent ([id number]) 12/07/2022 Pneumococcal Polysaccharide PPV23 (Pneumovax) 09/08/2020 RSV [...] No 12/22/2023 Does the household have a [facility] source of income? (Household - for [...] Progress Notes * Mirtha Novak, [facility] - 09/04/2024 4:18 PM EST Diabetes telephone follow - up 09/04/2024 Patient Phone Numbers - spoke to pt - Reason for contacting patient: Following up with patient after start of Xultophy. He reports it is going well. Did end up stopping prandin. Patient was able to clearly cite doses of each insulin. Does endorse some low sugars in the mornings. - Current diabetic medications: Taper off Lantus 45 units at bedtime - per titration chart above Taper on Xultophy 44 units at bedtime - per titration chart above STOP Prandin 0.5mg 1 tablet with evening meal Metformin 500 mg ER 1 tab daily (at bedtime) Jardiance 25 mg daily - Glucose review/ SMBG: patient has Dexcom but it doesn't upload except in clinic. Reports range 68-210 Therapy Management Assessment/Plan: 1) Diabetes: Patient's sugars doing pretty well with transition from Lantus to Xultophy though he reports some lows a few days. Will decrease Lantus further and continue titration. New chart sent to patient via EPS and advised him how to edit the one he already has. Taper off Lantus 21 units at bedtime - per titration chart below Taper on Xultophy 22 units up to 42 units at bedtime - per titration chart below Metformin 500 mg ER 1 tab daily (at bedtime) Jardiance 25 mg daily Follow up in 2 weeks or sooner as needed with any sugars < 70. Mirtha David [facility], Pharm D Clinical Pharmacist Medication Therapy Management Clinic 09/04/2024, 4:19 PM Vasiliy Richardson Day 1-3 21 22 Day 4-6 19 24 Day 7-9 17 26 Day 10-12 15 28 Day 13-15 13 30 Day 16-18 11 32 Day 19-21 9 34 Day 22-24 7 36 Day 25-27 5 38 day 28-30 3 40 Day 31-33 0 42 documented in this encounter Plan of Treatment Upcoming Encounters Date Type Department Care Team (Late st Contact Info) Description 09/07/2024 8:40 AM EST Office Visit Family Practice [address] [place] [address] [address] [place] [address] Javy Moscoso DO [address] [place] [address] 09/14/2024 11:30 AM EST Office Visit Hematology/Oncology [facility] [phone] Katt Mullen CRNP 400 [facility] [place] [address] 09/18/2024 2:10 PM EST Telemedicine Family Practice [address] [place] [address] 293 [facility] [phone] [place], Pharmacist [address] [address] 09/28/2024 8:00 AM EST Office Visit Family Practice [address] [place] [address] [facility] [phone] [place], Pharmacist [address] [address] 11/30/2024 9:30 AM EDT Office Visit Gastroenterology, [facility] [address] [place] [address] Teddy Mullen CRNP [address] [place] [address] 02/15/2025 10:00 AM EDT Office Visit Sleep Disorders Ctr [facility] [address] [place] [phone] Debby Cornejo DO [address] [place] [address] 04/10/2025 10:40 AM EDT Office Visit Nephrology, [facility] 200 [facility] [place] [address] uAgusto Lerner MD 200 [facility] [place] [address] Scheduled Procedures Name Priority Associated Diagnoses Date/Ti me COLONOSCOPY FLEXIBLE PROXIMA L DIAGNOSTIC Recall History of colonic polyps Health Maintenance Due Date Last Done Comments Cologuard 01/12/1997 Sigmoidoscopy 01/12/1997 Fecal Occult Blood Test 11/18/2023 11/18/19 23, 11/17/2022, 03/16/2022, Additional history exists CKD PHOS USE SMARTSET 72499 05/05/2024 09/0 02/2023, 02/02/2023, 01/11/2022, Additional history exists Diabetic Foot Exam 06/16/2024 06/16/2023, 06/16/2023 Albumin/Creatinine Ratio 09/09/2024 09/09/2023, 11/0 11/2021 Adult Wellness Visit 09/28/2024 09/28/2023 GFR 12/17/2024 06/18/2024, 03/30, 03/09/2024, Additional history exists Depression Screening 12/21/2024 12/22/2023 HbA1c 02/01/2025 08/03/2024, 03/30, 12/15/2023, Additional history exists Diabetic Eye Exam 03/06/2025 03/06/2024, , 08/24/2023, Additional history exists Colonoscopy 05/03/2025 05/03/2024, 12/2023, 12/10/2022, Additional history exists Colorectal Cancer Screening 05/03/2025 O2 ASSESSMENT COMPLETED IN PAST YEAR FOR COPD 05/03/2025 05/03/2024 CKD HGB USE SMARTSET 96892 08/20/202508/20, 08/20/2024, 07/19/2024, Additional history exists DTap/Tdap Vaccines (2 - [...] Power of Attor kwabena? No Care Teams Assessment Services Manager Relationship Specialty Start Date End Date Javy Moscoso DO [address] [place] [address] PCP - General Family Medicine 07/04/23 documented as of this encounter
--- OUTSIDE RECORDS SUMMARY | 2024-11-03 09:39 | External Medical Summary | Summary of Care ---
Author Name Unknown Organization [facility] Address [address] [place] [address] Phone [phone] Care Team Providers Care Oracle Identity Management Consultant Name Role Phone Javy Moscoso DO Primary Care Provider Reason for Visit * Reason Onset Date Comments Test Results 09/07/2024 Encounter Details Date Type Department Care Team (Late st Contact Info) Description 09/07/2024 Telephone Family Practice 65 [facility] [place] [address] [place] [address] Javy Moscoso DO [address] [place] [address] Test Results Allergies Active [...] every 10 days. E11.9 Active Dexcom G7 Rn Hemo Dialysis Device Use as directed. Use as directed [...] 4 Active Vitamin D (Ergocalciferol) 1.25 MG (23832 UT) Oral Capsule (Drisdol)Indicati ons:Vitamin D deficiency [...] [facility] clinic. 45 mL 3 08/23/2024 [...] Xultophy per [facility] titration chart. 4 Active Pen [place] 31G X 5 MMIndications:Typ e 2 diabetes [...] mRNA, LNP-s, No Pre serve, 2-Dose Series ([place]) 07/03/2021,12/27/2020,12/06/2020 COVID-19, MRNA-LNP, PF, 30 M CG/0.3 mL, 12 YRS AND ABOVE, IM (PFIZER-Comirnaty) 05/22/2024,02/22/2024,06/16/2023 Pneumococcal Conjugate Vacci ne, 20-valent ([id number]) 12/07/2022 Pneumococcal Polysaccharide PPV23 (Pneumovax) 09/08/2020 RSV [...] No 12/22/2023 Does the household have a [facility] source [facility]? (Household - for ages [...] Telephone Encounter - Javy Moscoso DO - 09/07/2024 6:46 PM EST Lab studies shows elevated urine microalbumin. Advise continue present medical therapy documented in this encounter Plan of Treatment Upcoming Encounters Date Type Department Care Team (Late st Contact Info) Description 09/14/2024 11:30 AM EST Office Visit Hematology/Oncology [facility] [phone] Katt Mullen CRNP 400 [facility] [place] [address] 09/18/2024 2:10 PM EST Telemedicine Family Practice [address] [place] [address] 293 [facility], [place] [address] College, Pharmacist 65 [address] [address] 09/28/2024 8:00 AM EST Office Visit Family Practice [address] [place] [address] 293 [facility] [phone] College, Pharmacist 65 [address] [address] 11/30/2024 9:30 AM EDT Office Visit Gastroenterology, [facility] [address] [place] [address] Teddy Mullen CRNP [address] [place] [address] 12/03/2024 8:10 AM EDT Laboratory Laboratory Patient [address] [phone] [place], [facility] [address] [place] [address], [place] [address] 12/06/2024 8:40 AM EDT Office Visit Family Practice [address] [place] [address] [address] [place] [phone] Javy Moscoso DO [address] [place] [address] 02/15/2025 10:00 AM EDT Office Visit [facility] Disorders Ctr [facility] [address] [place] [phone] Debby Cornejo 132 [facility] [place] [address] 04/10/2025 10:40 AM EDT Office Visit Nephrology, [facility] [address] [place] [address] Augusto Lerner MD [address] [place] [address] Scheduled Procedures Name Priority Associated Diagnoses Date/Ti me COLONOSCOPY FLEXIBLE PROXIMA L DIAGNOSTIC Recall History of colonic polyps Health Maintenance Due Date Last Done Comments Cologuard 01/12/1997 Sigmoidoscopy 01/12/1997 Fecal Occult Blood Test 11/18/2023 11/18/19 23, 11/17/2022, 03/16/2022, Additional history exists CKD PHOS USE SMARTSET 68924 05/05/2024 09/0 02/2023, 02/02/2023, 01/11/2022, Additional history [...] COPD 05/03/2025 05/03/2024 CKD HGB USE SMARTSET 51921 08/20/202508/20, 08/20/2024, 07/19/2024, Additional history exists Albumin/Creatinine [...] Power of Attor kwabena? No Care Teams Oracle Identity Management Consultant Relationship Specialty Start Date End Date Javy Moscoso DO [address] [place] [address] PCP - General Family Medicine 07/04/23 documented as of this encounter
--- OUTSIDE RECORDS SUMMARY | 2024-11-03 09:39 | External Medical Summary | Summary of Care ---
Author Name Unknown Organization [facility] Address [address] [place] [address] Phone [phone] Care Team Providers Care Child Care Teacher Name Role Phone Javy Moscoso DO Primary Care Provider [phone] Reason for Visit * Reason Comments Medication Refill Encounter Details Date Type Department Care Team (Late st Contact Info) Description 09/08/2024 Refill Family Practice 65 [facility] [address] [place] [phone] Javy Moscoso DO [address] [place] [address] HTN, goal below 140/90 Allergies Active Allergy Reactions Criticality Noted Date Comments Lisinopril Unknown Low 11/15/2022 Verapamil Medium 06/26/2020 Heart Block documented as of this encounter (statuses as of 09/10/2024) Medications CPAP every night at bedtime. Active [...] every 10 days. E11.9 Active Dexcom G7 Accounts Payable Technician Device Use as directed. Use as [...] 2 times a day. 60 mL 5 4 1:03 PM EST 04/16/20 24 Active Gabapentin 300 MG Oral Capsule (Neurontin)Indica tions:Spinal stenosis of lumbar region without neurogenic claudication Take 1 Capsule by mouth in the morning. 90 Capsule 3 4 10:56 AM EST 05/01/20 24 Active Vitamin D (Ergocalciferol) 1.25 MG (90426 UT) Oral Capsule (Drisdol)Indicati ons:Vitamin D deficiency [...] the skin daily per titration chart from [facility] clinic. 45 mL 3 4 12:03 PM EST 08/03/20 24 Active Zoster Vac Recomb Adjuvanted 50 MCG/0.5ML Intramuscular Suspension Reconstituted (Shingrix)Indicat ions:Need for vaccination for zoster Inject 0.5 mL into a large muscle now and repeat dose in 60 to 180 days 1 Each 4 10:06 AM EST 08/03/20 24 Active Insulin Glargine Solostar 100 UNIT/ML Subcutaneous Solution Pen-injector (Lantus SoloStar)Indicati ons:Type 2 diabetes mellitus with hyperglycemia, with long-term current use of insulin ([facility]) Taper and transition to Xultophy per [facility] titration chart. 08/03/20 24 Active Pen [place] 31G X 5 MMIndications:Typ e 2 diabetes mellitus with hyperglycemia, with long-term current use of insulin ([facility]) Use as directed with glargine insulin once daily 300 Each 3 08/27/20 24 Active Triamcinolone Acetonide 0.1 % External Cream (Aristocort)Indic ations:Intrinsic atopic dermatitis Apply topically to affected area 2 times a day. To affected area. 60 g 5 09/07/19 25 Active tiZANidine HCl 2 MG Oral Tablet (Zanaflex)Indicat ions:Spinal stenosis of lumbar region without neurogenic claudication Take 1 Tablet by mouth at bedtime as needed for Muscle spasms. 90 Tablet 1 09/07/19 25 Active Losartan Potassium 100 MG Oral Tablet (Cozaar)Indicatio ns:HTN, goal below 140/90 Take 1 Tablet by mouth in the morning. 90 Tablet 1 09/10/19 25 Active Losartan Potassium 100 MG Oral Tablet (Cozaar)Indicatio ns:HTN, goal below 140/90 Take 1 Tablet by mouth in the morning. 90 Tablet 1 4 8:29 AM EDT 03/17/20 24 025 Discontin ued(Refil l) Hospital, Clinic, or Other Facility Administered Medication Ordered Dose Route Frequency Start Date End Date Status Albuterol Sulfate (Proventil) (2.5 MG/3ML) 0.083% inhalation solution 2.5 mgIndications:ILD (interstitial lung disease) ([facility]),BEARDEN (dyspnea on exertion) 2.5 mg NEBULIZER Q4H PRN 12/12/2023 Act jose documented as of this encounter (statuses as of 09/10/2024) Active Problems Problem Noted Date Diagnosed Date [...] 12/07/2022 Bilateral impacted cerumen 10/22/2022 Atherosclerosis of resighini co ronary artery without angina pectoris 07/15/2022 [...] as of this encounter (statuses as of 09/10/2024) Resolved Problems Problem Noted Date Diagnosed Date [...] as of this encounter (statuses as of 09/10/2024) Immunizations Name Administration Dates Next Due COVID-19 mRNA, LNP-s, No Pre serve, 2-Dose Series (Pfizer) 07/03/2021,12/27/2020,12/06/2020 COVID-19, MRNA-LNP, PF, 30 M CG/0.3 mL, 12 YRS AND ABOVE, IM (PFIZER-Comirnaty) 05/22/2024,02/22/2024,06/16/2023 Pneumococcal Conjugate Vacci ne, 20-valent ([id number]) 12/07/2022 Pneumococcal Polysaccharide PPV23 (Pneumovax) 09/08/2020 RSV [...] No 12/22/2023 Does the household have a [facility] source of income? (Household [...] Telephone Encounter - Javy Moscoso DO - 09/10/2024 10:09 AM ESTSigned Prescriptions: Disp Refills Losartan Potassium 100 MG Oral Tablet (Coz*90 Tab*1 Sig: Take 1 Tablet by mouth in the morning. Authorizing Provider: JAVY MOSCOSO * Telephone Encounter - Nhung Jose CCMA - 09/10/2024 8:03 AM EST Pending Prescriptions: Disp Refills Losartan Potassium 100 MG Oral Tablet (Coz*90 Tab*1 Sig: Take 1 Tablet by mouth in the morning. * Telephone Encounter - Nhung Jose CCMA - 09/10/2024 8:02 AM EST Did you pend patient's preferred pharmacy and medication before forwarding?yes Pharmacy: [facility] Pending Prescriptions: Disp Refills Losartan Potassium 100 MG Oral Tablet (Co*90 Tab*1 Sig: Take 1 Tablet by mouth in the morning. Last Visit: 09/07/2024 (in office), Visit date not found (telemedicine) Next Visit: 12/06/2024 If no future appointments scheduled, and last appointment is greater than a year ago, please schedule patient for a follow-up appointment Last date the medication was ordered: per chart Is this request for a controlled substance?No Urine Drug Screen:No results found. However, due to the size of the patient record, not all encounters were searched. Please check Results Review for a complete set of results. Patient Phone Numbers Labs: Lab Results Component Value Date/Time CREAT 1.6 (H) 06/18/2024 07:57 AM CREAT 1.4 (H) 09/08/2020 03:23 PM POTASSIUM 4.5 06/18/2024 07:57 AM POTASSIUM 4.2 09/08/2020 03:23 PM TSH 0.48 02/22/2024 03:13 PM TSH 1.36 08/20/2019 09:22 AM LDL 59 12/15/2023 07:50 AM LDL 86 08/20/2019 09:22 AM ALT 26 06/18/2024 07:57 AM ALT 32 08/20/2019 09:22 AM HGBA1C 6.9 (H) 08/03/2024 09:16 AM HGBA1C 6.9 (H) 09/08/2020 03:23 PM documented in this encounter Plan of Treatment Upcoming Encounters Date Type Department Care Team (Late st Contact Info) Description 09/14/2024 11:30 AM EST Office Visit Hematology/Oncology [facility] [address] [place] [address] Katt Mullen CRNP [facility] [address] 09/18/2024 2:10 PM EST Telemedicine Family Practice [facility] [place] [phone] College, Pharmacist [address] [place] [address] 09/28/2024 8:00 AM EST Office Visit Family Practice [facility] 293 [facility] [place] [phone] College, Pharmacist [address] [place] [address] 11/30/2024 9:30 AM EDT Office Visit Gastroenterology, [facility] 132 [facility] [place] [address] Teddy Mullen CRNP 132 [facility] [address] 12/03/2024 8:10 AM EDT Laboratory [facility], [address] [phone] [address] 12/06/2024 8:40 AM EDT Office Visit Family Practice 65 [facility] [address] [place] [address] Javy Moscoso DO [address] [place] [phone] 02/15/2025 10:00 AM EDT Office Visit Sleep Disorders Ctr [facility] 132 [facility] [place] [phone] Debby Cornejo, DO [address] [place] [address] 04/10/2025 10:40 AM EDT Office Visit Nephrology, [place]атерина [facility] 200 [facility] [place] [address] Augusto Lerner MD 200 [facility] [place] [address] Scheduled Procedures Name Priority Associated Diagnoses Date/Ti me COLONOSCOPY FLEXIBLE PROXIMA L DIAGNOSTIC Recall History of colonic polyps Health Maintenance Due Date Last Done Comments Cologuard 01/12/1997 Sigmoidoscopy 01/12/1997 Fecal Occult Blood Test 11/18/2023 11/18/19 23, 11/17/2022, 03/16/2022, Additional history exists CKD PHOS USE SMARTSET 28346 05/05/2024 09/0 02/2023, 02/02/2023, 01/11/2022, Additional history [...] COPD 05/03/2025 05/03/2024 CKD HGB USE SMARTSET 22761 08/20/202508/20, 08/20/2024, 07/19/2024, Additional history exists Albumin/Creatinine [...] Power of Attor kwabena? No Care Teams Child Care Teacher Relationship Specialty Start Date End Date Javy Moscoso DO [address] [place] [phone] PCP - General Family Medicine 07/04/23 documented as of this encounter
--- OUTSIDE RECORDS SUMMARY | 2024-11-03 09:39 | External Medical Summary | Summary of Care ---
Author Name Unknown Organization [facility] Address [address] [place] [address] Phone [phone] Care Team Providers Care Plastic Surgeon Name Role Phone Javy Moscoso DO Primary Care Provider Reason for Visit * Reason Onset Date Comments Test Results 09/07/2024 Encounter Details Date Type Department Care Team (Late st Contact Info) Description 09/07/2024 Telephone Family Practice 65 [facility] [address] [place] [address] Javy Moscoso DO [address] [place] [address] Test Results Allergies Active [...] every 10 days. E11.9 Active Dexcom G7 Textile Examiner Device Use as directed. Use as directed [...] 24 Active Vitamin D (Ergocalciferol) 1.25 MG (36811 UT) Oral Capsule (Drisdol)Indicati ons:Vitamin D deficiency [...] the skin daily per titration chart from [facility] clinic. 45 mL 3 4 [...] current use of insulin ([facility]) Taper and transition to Xultophy per [facility] titration chart. 08/03/20 24 Active Pen [place] 31G X 5 MMIndications:Typ e 2 diabetes mellitus with hyperglycemia, with long-term current use of insulin ([facility]) Use as directed with glargine insulin once [...] (PFIZER-Comirnaty) 05/22/2024,02/22/2024,06/16/2023 Pneumococcal Conjugate Vacci ne, 20-valent ([id number]) 12/07/2022 Pneumococcal Polysaccharide PPV23 (Pneumovax) 09/08/2020 RSV [...] No 12/22/2023 Does the household have a [facility] source of income? (Household - for [...] Miscellaneous Notes * Telephone Encounter - Nhung Jose CCMA - 09/10/2024 10:16 AM EST Spoke with patient and made him aware of results and recommendations. Pt verbalized understanding. * Telephone Encounter - Javy Moscoso DO - 09/07/2024 6:46 PM EST Lab studies shows elevated urine microalbumin. Advise continue present medical therapy documented in this encounter Plan of Treatment Upcoming Encounters Date Type Department Care Team (Late st Contact Info) Description 09/14/2024 11:30 AM EST Office Visit Hematology/Oncology [facility] [address] Katt Mullen CRNP [address] [place] [address] 09/18/2024 2:10 PM EST Telemedicine Family Practice 65 [facility] 293 [facility] [address] College, Pharmacist 65 [address] [address] 09/28/2024 8:00 AM EST Office Visit Family Practice 65 [facility] 293 [facility], [place] [address] College, Pharmacist 65 [facility] 293 [facility] [place] [address] 11/30/2024 9:30 AM EDT Office Visit Gastroenterology, [facility] 132 [facility] [place] [address] Teddy Mullen CRNP 132 [facility] [place] [address] 12/03/2024 8:10 AM EDT Laboratory [facility], [address] [phone] [address] 12/06/2024 8:40 AM EDT Office Visit Family Practice 65 [facility] [address] [place] [address] Javy Moscoso DO [address] [place] [address] 02/15/2025 10:00 AM EDT Office Visit Sleep Disorders Ctr [facility] 132 [facility] [place] [phone] Debby Cornejo, DO 132 [facility] [place] [address] 04/10/2025 10:40 AM EDT Office Visit Nephrology, Екатерина Avila [address] [place] [address] Augusto Lerner MD [address] [place] [address] Scheduled Procedures Name Priority Associated Diagnoses Date/Ti me COLONOSCOPY FLEXIBLE PROXIMA L DIAGNOSTIC Recall History of colonic polyps Health Maintenance Due Date Last Done Comments Cologuard 01/12/1997 Sigmoidoscopy 01/12/1997 Fecal Occult Blood Test 11/18/2023 11/18/19, 11/17/2022, 03/16/2022, Additional history exists CKD PHOS USE SMARTSET 29428 05/05/2024 09/0 02/2023, 02/02/2023, 01/11/2022, Additional history [...] COPD 05/03/2025 05/03/2024 CKD HGB USE SMARTSET 61993 08/20/202508/20, 08/20/2024, 07/19/2024, Additional history exists Albumin/Creatinine [...] Power of Attor kwabena? No Care Teams Plastic Surgeon Relationship Specialty Start Date End Date Javy Moscoso DO [address] [place] [address] PCP - General Family Medicine 07/04/23 documented as of this encounter
--- OUTSIDE RECORDS SUMMARY | 2024-11-03 09:39 | External Medical Summary | Summary of Care ---
Author Name Unknown Organization [facility] Address [address] [place] [address] Phone [phone] Care Team Providers Care Cemetery Warden Name Role Phone Javy Moscoso DO Primary Care Provider [phone] Encounter Details Date Type Department Care Team (Late st Contact Info) Description 08/30/2024 Population Health External Data Unspecified Department Allergies [...] every 10 days. E11.9 Active Dexcom G7 Public Speaking Teacher Device Use as directed. Use as [...] 4 Active Vitamin D (Ergocalciferol) 1.25 MG (90292 UT) Oral Capsule (Drisdol)Indicati ons:Vitamin D deficiency [...] [place] titration chart. 4 Active Pen [place] 31G X 5 MMIndications:Typ e 2 diabetes [...] 12/07/2022 Bilateral impacted cerumen 10/22/2022 Atherosclerosis of wrangell co ronary artery without angina pectoris 07/15/2022 [...] mRNA, LNP-s, No Pre serve, 2-Dose Series ([employer]) 07/03/2021,12/27/2020,12/06/2020 COVID-19, MRNA-LNP, PF, 30 M CG/0.3 mL, 12 YRS AND ABOVE, IM (PFIZER-Comirnaty) 05/22/2024,02/22/2024,06/16/2023 Pneumococcal Conjugate Vacci ne, 20-valent ([email or web address]) 12/07/2022 Pneumococcal Polysaccharide PPV23 (Pneumovax) 09/08/2020 RSV [...] 2:08 AM ANUMT Alexandr Gutiérrez RN * Are you blind [...] 09/04/2024 3:30 PM EST Telemedicine Family Practice [address] [place] [address] 293 [place] [address] [place], Pharmacist [address] [place] [address] 09/07/2024 8:40 AM EST Office Visit Family Practice [address] [place] [address] [address] [place] [place] [phone] Javy Moscoso DO [address] [place] [phone] 09/14/2024 11:30 AM EST Office Visit Hematology/Oncology [facility] 200 [facility] [place] [address] Katt Mullen CRNP 400 [place] [address] 09/28/2024 8:00 AM EST Office Visit Family Practice [address] [place] [address] 293 [place] [address] College, Pharmacist [address] [place] [address], [place] [address] 11/30/2024 9:30 AM EDT Office Visit Gastroenterology, [facility] 132 [facility] [place] [address] Teddy Mullen CRNP 132 [facility] [place] [address] 02/15/2025 10:00 AM EDT Office Visit Sleep Disorders Ctr [facility] [address] [place] [phone] Debby Cornejo DO [address] [place] [address] 04/10/2025 10:40 AM EDT Office Visit NephrologyЕкатерина 200 [place] Silva [place] [address] Augusto Lerner MD 200 [facility] [place] [address] Scheduled Procedures Name Priority Associated Diagnoses Date/Ti me COLONOSCOPY FLEXIBLE PROXIMA L DIAGNOSTIC Recall History of colonic polyps Health Maintenance Due Date Last Done Comments Cologuard 01/12/1997 Sigmoidoscopy 01/12/1997 Fecal Occult Blood Test 11/18/2023 11/18/19 23, 11/17/2022, 03/16/2022, Additional history exists CKD PHOS USE SMARTSET 51037 05/05/2024 090 02/2023, 02/02/2023, 01/11/2022, Additional history exists Diabetic Foot Exam 06/16/2024 06/16/2023, 06/16/2023 Albumin/Creatinine Ratio 09/09/2024 09/09/2023, 1111/2021 Adult Wellness Visit 09/28/2024 09/28/2023 GFR 12/17/2024 06/18/2024, 03/30, 03/09/2024, Additional history exists Depression Screening 12/21/2024 12/22/2023 HbA1c 02/01/2025 08/03/2024, 03/30, 12/15/2023, Additional history exists Diabetic Eye Exam 03/06/2025 03/06/2024, , 08/24/2023, Additional history exists Colonoscopy 05/03/2025 05/03/2024, 090 12/2023, 12/10/2022, Additional history exists Colorectal Cancer Screening 05/03/2025 O2 ASSESSMENT COMPLETED IN PAST YEAR FOR COPD 05/03/2025 05/03/2024 CKD HGB USE SMARTSET 83462 08/20/202508/20, 08/20/2024, 07/19/2024, Additional history exists DTap/Tdap [...] Power of Attor kwabena? No Care Teams Cemetery Warden Relationship Specialty Start Date End Date Javy Moscoso DO [address] [place] [address] PCP - General Family Medicine 07/04/23 documented as of this encounter
--- OUTSIDE RECORDS SUMMARY | 2024-11-03 09:39 | External Medical Summary | Summary of Care ---
Author Name Unknown Organization [facility] Address [address] [place] [address] Phone [phone] Care Team Providers Care Claim Technician Name Role Phone Javy Moscoso DO Primary Care Provider [phone] Encounter Details Date Type Department Care Team (Late st Contact Info) Description 09/11/2024 Population Health External Data Unspecified Department Allergies Active Allergy Reactions Criticality Noted Date Comments Lisinopril Unknown Low 11/15/2022 Verapamil Medium 06/26/2020 Heart Block documented as of this encounter (statuses as of 09/12/2024) Medications CPAP every night at bedtime. Active [...] every 10 days. E11.9 Active Dexcom G7 Welt Rander Device Use as directed. Use as directed [...] 4 Active Vitamin D (Ergocalciferol) 1.25 MG (34488 UT) Oral Capsule (Drisdol)Indicati ons:Vitamin D deficiency [...] the skin daily per titration chart from [facility] clinic. 45 mL 3 08/23/2024 12:03 [...] (HCC) Taper and transition to Xultophy per [facility] titration chart. 4 Active Pen [place] 31G X 5 MMIndications:Typ e 2 diabetes [...] as of this encounter (statuses as of 09/12/2024) Active Problems Problem Noted Date Diagnosed Date [...] 12/07/2022 Bilateral impacted cerumen 10/22/2022 Atherosclerosis of pamunkey co ronary artery without angina pectoris 07/15/2022 [...] as of this encounter (statuses as of 09/12/2024) Resolved Problems Problem Noted Date Diagnosed Date [...] as of this encounter (statuses as of 09/12/2024) Immunizations Name Administration Dates Next Due COVID-19 mRNA, LNP-s, No Pre serve, 2-Dose Series ([email or web address]) 07/03/2021,12/27/2020,12/06/2020 COVID-19, MRNA-LNP, PF, 30 M CG/0.3 mL, 12 YRS AND ABOVE, IM ([facility]) 05/22/2024,02/22/2024,06/16/2023 Pneumococcal Conjugate Vacci ne, 20-valent ([email or web address]) 12/07/2022 Pneumococcal Polysaccharide PPV23 (Pneumovax) 09/08/2020 RSV [...] Author No 02/15/2019 2:08 AM EDT Alexandr Gutiérerz RN * Do you have difficulty dressing [...] 09/14/2024 11:30 AM EST Office Visit Hematology/Oncology [facility] 200 [place] [address] Katt Mullen CRNP 400 [facility] [place] [address] 09/18/2024 2:10 PM EST Telemedicine Family Practice 65 [facility] 293 [place] [address] College, Pharmacist [address] [place] [address] 09/28/2024 8:00 AM EST Office Visit Family Practice 65 [facility] 293 [place] [address] College, Pharmacist [address] [place] [address] 11/30/2024 9:30 AM EDT Office Visit Gastroenterology, [facility] [address] [place] [address] Teddy Mullen CRNP [address] [place] [address] 12/03/2024 8:10 AM EDT Laboratory Laboratory Patient Service Center, [address] [phone] [place], Lab Lock [address] [place], [place] [address] [address] 12/06/2024 8:40 AM EDT Office Visit Family Practice 65 [facility] [place] [address] [place] [address] Javy Moscoso, DO [address] [place] [address] 02/15/2025 10:00 AM EDT Office Visit [facility] Disorders Ctr [facility] [address] [place] [phone] Debby Cornejo, DO [address] [place] [address] 04/10/2025 10:40 AM EDT Office Visit Nephrology, Екатерина Enochs [address] [place] [address] Augusto Lerner MD [address] [place] [address] Scheduled Procedures Name Priority Associated Diagnoses Date/Ti me COLONOSCOPY FLEXIBLE PROXIMA L DIAGNOSTIC Recall History of colonic polyps Health Maintenance Due Date Last Done Comments Cologuard 01/12/1997 Sigmoidoscopy 01/12/1997 Fecal Occult Blood Test 11/18/2023 11/18/19 23, 11/17/2022, 03/16/2022, Additional history exists CKD PHOS USE SMARTSET 21064 05/05/2024 09/0 02/2023, 02/02/2023, 01/11/2022, Additional history exists Adult Wellness Visit 09/28/2024 09/28/2023 GFR 12/17/2024 06/18/2024, 03/30, 03/09/2024, Additional history exists Depression Screening 12/21/2024 12/22/2023 HbA1c 02/01/2025 08/03/2024, 03/30, 12/15/2023, Additional history exists Diabetic Eye Exam 03/06/2025 03/06/2024, , 08/24/2023, Additional history exists Colonoscopy 05/03/2025 05/03/2024, 09/0 12/2023, 12/10/2022, Additional history exists Colorectal Cancer Screening 05/03/2025 O2 ASSESSMENT COMPLETED IN PAST YEAR FOR COPD 05/03/2025 05/03/2024 CKD HGB USE SMARTSET 67470 08/20/202508/20, 08/20/2024, 07/19/2024, Additional history exists Albumin/Creatinine [...] Power of Attor kwabena? No Care Teams Claim Technician Relationship Specialty Start Date End Date Javy Moscoso DO [address] [place] [phone] PCP - General Family Medicine 07/04/23 documented as of this encounter
--- OUTSIDE RECORDS SUMMARY | 2024-11-03 09:39 | External Medical Summary | Summary of Care ---
Author Name Unknown Organization [facility] Address [address] [place] [address] Phone [phone] Care Team Providers Care Patient Resource Specialist Name Role Phone Javy Moscoso DO Primary Care Provider [phone] Reason for Visit * Reason Comments IV Therapy Monoferric * Episode Based Medications (Routine) - Authorized Specialty Diagnoses / Procedures Referred By Contac t Referred To Contact Diagnoses Iron deficiency anemia due to chronic blood loss Procedures CA INJ. FE DERISOMALTOSE 10 MG Katt Mullen CRNP [address] [place] [address] Phone: tel: fax: Hematology/Oncology Treatment, [address] [address] Phone: tel: fax: Referral ID Status Reason Start Date Expiration Date V isits Requested Visits Authorized [id number] Authorized 07/20/2024 09/29/2024 [id number] Encounter Details Date Type Department Care Team (Latest Contact Info) Description 08/08/2024 2:00 PM EST Hem/Onc Treatment Hematology/Oncology Treatment, [address] [address] Margarita Chair 7 Hem Onc [address] [place] [address] Iron deficiency anemia due to chronic blood loss* Allergies Active Allergy Reactions Criticality Noted Date Comments Lisinopril Unknown Low 11/15/2022 Verapamil Medium 06/26/2020 Heart Block documented as of this encounter (statuses as of 09/07/2024) Medications CPAP every night at bedtime. Active Acetaminophen 500 MG Oral Tablet (Tylenol) Take 1 to 2 tablets by mouth every 6 hours as needed 03/09/20 22 Active [employer] Ultra 2 w/Device Kit USE DIRECTED TO [...] every 10 days. E11.9 Active Dexcom G7 Bar Manager Device Use as directed. Use as directed to monitor blood sugars daily Active [employer] Ultra In Vitro Strip (Glucose Blood)Indications :Type [...] 11:56 AM EST 03/15/20 24 025 Active Losartan Potassium 100 MG Oral Tablet (Cozaar)Indicatio ns:HTN, goal below 140/90 Take 1 Tablet by mouth in the morning. 90 Tablet 1 4 8:29 AM EDT 03/17/20 24 Active Polyethylene Glycol 3350 17 GM/SCOOP Oral [...] 24 Active Vitamin D (Ergocalciferol) 1.25 MG (53986 UT) Oral Capsule (Drisdol)Indicati ons:Vitamin D deficiency [...] the skin daily per titration chart from [facility] clinic. 45 mL 3 4 [...] (HCC) Taper and transition to Xultophy per [facility] titration chart. 08/03/20 24 Active [place] 31G X 5 MMIndications:Typ e 2 diabetes mellitus with hyperglycemia, with long-term current use of insulin (HCC) Use as directed. Use as directed with glargine insulin once daily 100 Each 3 4 9:14 AM EST 10/06/19 24 024 Discontin ued(Refil l) Gabapentin 600 MG Oral Tablet (Neurontin) Take 1 Tablet by mouth in the morning and 1 Tablet before bedtime. Noon and night. 025 Discontin ued(Medic ation List Clean Up) tiZANidine HCl 2 MG Oral Tablet (Zanaflex)Indicat ions:Spinal stenosis of lumbar region without neurogenic claudication Take 1 Tablet by mouth at bedtime as needed for Muscle spasms. 90 Tablet 1 11:36 AM EDT 06/08/20 025 Discontin ued(Refil l) Hospital, Clinic, or [...] 12/07/2022 Bilateral impacted cerumen 10/22/2022 Atherosclerosis of [place] co ronary artery without angina pectoris 07/15/2022 [...] mRNA, LNP-s, No Pre serve, 2-Dose Series ([employer] 07/03/2021,12/27/2020,12/06/2020 COVID-19, MRNA-LNP, PF, 30 M CG/0.3 mL, 12 YRS AND ABOVE, IM (PFIZER-Comirnaty) 05/22/2024,02/22/2024,06/16/2023 Pneumococcal Conjugate Vacci ne, 20-valent ([id number]) 12/07/2022 Pneumococcal Polysaccharide PPV23 (Pneumovax) 09/08/2020 RSV [...] Sign Reading Time Taken Comments Blood Pressure 148/69 08/08/2024 2:18 PM EST Pulse 60 08/08/2024 2:18 PM EST Temperature 35.8 C (96.4 F) 08/08/2024 2:18 PM ES T Respiratory Rate 16 08/08/2024 2:18 PM EST Oxygen Saturation 94% 08/08/2024 2:18 PM EST Inhaled Oxygen Concentration - - Weight 108.3 kg (238 lb 12.8 oz) 08/08/2024 2:18 PM EST Height - - Body Mass Index 34.26 05/03/2024 12:33 PM EDT documented in this [...] Alexandr Gutiérrez RN documented in this encounter Nursing Notes * Mary Anne Da Silva RN - 08/08/2024 3:04 PM EST Pt tolerated tx w/o complaint, observed for 30 min post infusion. Pt has lab appointment scheduled prior to next appt with Braulio Mullen NP. Goals: Patient will remain free from injury. Possible barriers to meeting goals: ambulation with IV pole. Stability of the patient: Moderately stable - low risk of patient condition declining or worsening Summary regarding today's goals: Met: Patient remained free from injury. Pt tolerated treatment well. Discharged in stable condition. * Mary Anne Da Silva RN - 08/08/2024 2:18 PM EST Chair 7 Pt here for monoferric infusion. #24g PIV established in R forearm. Pt has had previous treatments without complication. Patient instructed on use of heat and massage functions where applicable. Patient shown how to operate the heat function of the chair and to alert nursing staff if the chair feels too warm. Patient instructed on the risk of potential castañeda while using the heat function. Safety and Risk for Injury Patient will remain free from injury. Ensure appropriate safety devices are available. Provide and maintain safe environment. documented in this encounter Plan of Treatment Upcoming Encounters Date Type Department Care Team (Late st Contact Info) Description 09/14/2024 11:30 AM EST Office Visit Hematology/Oncology [facility] 200 [place] [address] Katt Mullne CRNP 400 [facility] [place] [address] 09/18/2024 2:10 PM EST Telemedicine Family Practice [address] [place] [address] 293 [facility] [place] [address] College, Pharmacist [address] [place] [address] 09/28/2024 8:00 AM EST Office Visit Family [address] 293 [facility] [place] [address] College, Pharmacist [address] [place] [address] 11/30/2024 9:30 AM EDT Office Visit Gastroenterology, [facility] 132 [facility] [place] [address] Teddy Mullen CRNP [facility] [address] 12/03/2024 8:10 AM EDT Laboratory [facility], [address] [address] [address] 12/06/2024 8:40 AM EDT Office Visit Family Practice [address] [place] [address] [address] [place] [address] Javy Moscoso DO [address] [place] [address] 02/15/2025 10:00 AM EDT Office Visit Sleep Disorders Ctr [facility] 132 [facility] [place] [phone] Debby Cornejo DO 132 [facility] [place] [address] 04/10/2025 10:40 AM EDT Office Visit Nephrology, Екатерина Avila [address] [place] [address] Augusto Lerner MD 200 [facility] [place] [address] Scheduled Procedures Name Priority Associated Diagnoses Date/Ti me COLONOSCOPY FLEXIBLE PROXIMA L DIAGNOSTIC Recall History of colonic polyps Health Maintenance Due Date Last Done Comments Cologuard 01/12/1997 Sigmoidoscopy 01/12/1997 Fecal Occult Blood Test 11/18/2023 11/18/19, 11/17/2022, 03/16/2022, Additional history exists CKD PHOS USE SMARTSET 88922 05/05/2024 090 02/2023, 02/02/2023, 01/11/2022, Additional history exists Albumin/Creatinine [...] COPD 05/03/2025 05/03/2024 CKD HGB USE SMARTSET 58773 08/20/202508/20, 08/20/2024, 07/19/2024, Additional history exists Diabetic [...] blood loss (chronic) documented in this encounter Administered Medications Inactive Administered Medications - up to 3 most recent administrations Medication Order MAR Action Action Date Dose Rate Site Ferric derisomaltose (Monoferric) 1,000 mg in NSS 250 mL ivpb 1,000 mg, IV Piggyback, ONCE, 1 dose, On Tue08/08/24 at 1445, Administer over 30 Minutes, DOSING GUIDELINES: For patient weight LESS THAN 50 kg: Dose 20 mg/kg For patient weight 50 Kg or greater: Dose 1000 mgIndications:Iron deficiency anemia due to chronic blood loss Start Infusion 08/08/2024 2:14 PM EST 1,000 mg 530 mL/hr NSS infusion Intravenous, at 50 mL/hr, PRN, Starting on Tue08/08/24 at 1515, Until Tue08/08/24 at 1931, Maintenance lineIndications:Iron deficiency anemia due to chronic blood loss Start Infusion 08/08/2024 2:11 PM EST 50 mL/hr documented in this encounter Advance Directives * [...] Power of Attor kwabena? No Care Teams Patient Resource Specialist Relationship Specialty Start Date End Date Javy Moscoso DO [address] [place] [phone] PCP - General Family Medicine 07/04/23 documented as of this encounter
--- OUTSIDE RECORDS SUMMARY | 2024-11-03 09:40 | External Medical Summary | Summary of Care ---
Author Name Unknown Organization [facility] Address [address] [place] [address] Phone [phone] Care Team Providers Care Radio Message Router Name Role Phone Javy Moscoso DO Primary Care Provider [phone] Reason for Visit * Reason Comments IV Therapy Monoferric * Episode Based Medications (Routine) - Authorized Specialty Diagnoses / Procedures Referred By Contac t Referred To Contact Diagnoses Iron deficiency anemia due to chronic blood loss Procedures ME INJ. FE DERISOMALTOSE 10 MG Katt Mullen CRNP [address] [place] [address] Phone: tel: fax: Hematology/Oncology Treatment, [address] [address] Phone: tel: fax: Referral ID Status Reason Start Date Expiration Date V isits Requested Visits Authorized [id number] Authorized 07/20/2024 09/29/[phone] Encounter Details Date Type Department Care Team (Latest Contact Info) Description 08/08/2024 2:00 PM EST Hem/Onc Treatment Hematology/Oncology Treatment, [address] [address] Margarita Chair [address] On[address] [place] [address] Iron deficiency anemia due to chronic blood loss* Allergies Active Allergy Reactions Criticality Noted Date Comments Lisinopril Unknown Low 11/15/2022 Verapamil Medium 06/26/2020 Heart Block documented as of this encounter (statuses as of 08/09/2024) Medications CPAP every night at bedtime. Active Acetaminophen 500 MG Oral Tablet (Tylenol) Take 1 to 2 tablets by mouth every 6 hours as needed 2 Active [employer] Ultra 2 w/Device Kit USE DIRECTED TO TEST BLOOD SUGARS 1 Each 09/09/2023 11:01 AM EST 4 Active Pen [place] 31G X 5 MMIndications:Typ e 2 diabetes mellitus with hyperglycemia, with long-term current use of insulin (HCC) Use as directed. Use as directed with glargine insulin once daily 100 Each 3 06/01/2024 6:56 PM EDT 4 Active Torsemide 20 MG Oral Tablet [...] every 10 days. E11.9 Active Dexcom G7 Music Intern Device Use as directed. Use as directed to monitor blood sugars daily Active [employer] Ultra In Vitro Strip (Glucose Blood)Indications :Type [...] 1 Tablet before bedtime. 180 Tablet 3 05/26/2024 12:20 PM EDT 4 Active Ferrous Sulfate 325 (65 Fe) MG Oral Tablet (Feosol) Take 1 Tablet by mouth in the morning and 1 Tablet before bedtime. Active Fluticasone Propionate 50 MCG/ACT Nasal Suspension (Flonase)Indicati ons:Chronic maxillary sinusitis Administer 2 Sprays into each nostril in the morning. 48 g 3 05/30/2024 7:22 AM EDT 4 Active Atorvastatin Calcium 40 MG Oral Tablet (Lipitor)Indicati ons:Dyslipidemia, goal LDL below 70 TAKE ONE TABLET BY MOUTH EVERY MORNING 90 Tablet 2 05/21/2024 6:02 PM EDT 4 025 Active Losartan Potassium 100 MG [...] 4 Active Vitamin D (Ergocalciferol) 1.25 MG (30540 UT) Oral Capsule (Drisdol)Indicati ons:Vitamin D deficiency [...] the skin daily per titration chart from [facility] clinic. 45 mL 3 4 Active Zoster Vac Recomb Adjuvanted 50 [...] (HCC) Taper and transition to Xultophy per [facility] titration chart. 4 Active Hospital, Clinic, or Other Facility Administered Medication Ordered Dose Route Frequency Start Date End Date Status Albuterol Sulfate (Proventil) (2.5 MG/3ML) 0.083% inhalation solution 2.5 mgIndications:ILD (interstitial lung disease) (HCC),BEARDEN (dyspnea on exertion) 2.5 mg NEBULIZER Q4H PRN 12/12/2023 Act jose documented as of this encounter (statuses as of 08/09/2024) Active Problems Problem Noted Date Diagnosed Date [...] Bilateral impacted cerumen 10/22/2022 Atherosclerosis of [place] co ronary artery without angina pectoris 07/15/2022 [...] as of this encounter (statuses as of 08/09/2024) Resolved Problems Problem Noted Date Diagnosed Date [...] as of this encounter (statuses as of 08/09/2024) Immunizations Name Administration Dates Next Due COVID-19 mRNA, LNP-s, No Pre serve, 2-Dose Series ([employer]) 07/03/2021,12/27/2020,12/06/2020 COVID-19, MRNA-LNP, PF, 30 M CG/0.3 mL, 12 YRS AND ABOVE, IM (PFIZER-Comirnaty) 05/22/2024,02/22/2024,06/16/2023 Pneumococcal Conjugate Vacci ne, 20-valent ([email or web address]) 12/07/2022 Pneumococcal Polysaccharide PPV23 (Pneumovax) 09/08/2020 RSV [...] Smoking Tobacco: Former Cigarettes 1 20 1 5 - 1994 Passive Smoke Exposure: Past [...] Alexandr Hernandez RN documented in this encounter Nursing Notes [...] Care Team (Late st Contact Info) Description 08/21/2024 3:50 PM EST Telemedicine [address] [address] College, Pharmacist [address] [place] [address] 09/07/2024 8:40 AM EST Office Visit Family [place] [address] [address] [place] [address] [place] [address] Javy Moscoso DO [address] [place] [address] 09/14/2024 11:30 AM EST Office Visit Hematology/Oncology [facility] 200 [facility] [place] [phone] Katt Mullen CRNP 400 [facility] [place] [address] 09/28/2024 8:00 AM EST Office Visit Family Practice 65 [facility] [place] 293 [facility], [place] [address] College, Pharmacist 65 [facility] 293 [place] [address] 11/30/2024 9:30 AM EDT Office Visit Gastroenterology, [facility] [address] Teddy Mullen CRNP 132 [place] [address] 02/15/2025 10:00 AM EDT Office Visit [facility] Disorders Ctr [facility] 132 [facility] [phone] Debby Cornejo DO [facility] [address] 04/10/2025 10:40 AM EDT Office Visit Nephrology, [facility] 200 [address] Silva [place] [address] Augusto Lerner MD 200 [facility] [place] [address] Scheduled Procedures Name Priority Associated Diagnoses Date/Ti me COLONOSCOPY FLEXIBLE PROXIMA L DIAGNOSTIC Recall History of colonic polyps Health Maintenance Due Date Last Done Comments Cologuard 01/12/1997 Sigmoidoscopy 01/12/1997 Fecal Occult Blood Test 11/18/2023 11/18/19 23, 11/17/2022, 03/16/2022, Additional history exists CKD PHOS USE SMARTSET 13483 05/05/2024 09/0 02/2023, 02/02/2023, 01/11/2022, Additional history [...] COPD 05/03/2025 05/03/2024 CKD HGB USE SMARTSET 97062 07/19/202507/19, 07/19/2024, 06/18/2024, Additional history exists DTap/Tdap Vaccines (2 - [...] Power of Attor kwabena? No Care Teams Radio Message Router Relationship Specialty Start Date End Date Javy Moscoso DO [address] [place] [address] PCP - General Family Medicine 07/04/23 documented as of this encounter
--- OUTSIDE RECORDS SUMMARY | 2024-11-03 09:40 | External Medical Summary | Summary of Care ---
Author Name Unknown Organization [facility] Address [address] [place] [address] Phone [phone] Care Team Providers Care Manager Home Name Role Phone Javy Moscoso DO Primary Care Provider [phone] Reason for Visit * Reason Comments Dosage Adjustment Via Phone (anticoag Cl inic) Diabetes Follow-Up Encounter Details Date Type Department Care Team (Late st Contact Info) Description 08/21/2024 3:50 PM EST Telemedicine Family Practice 65 [facility] 293 [place] [address] College, Pharmacist [address] [address] Type 2 diabetes mellitus with hyperglycemia, with long-term current use of insulin ([facility])* Allergies Active Allergy Reactions Criticality Noted Date Comments Lisinopril Unknown Low 11/15/2022 Verapamil Medium 06/26/2020 Heart Block documented as of this encounter (statuses as of 08/21/2024) Medications CPAP every night at bedtime. Active Acetaminophen 500 MG Oral Tablet (Tylenol) Take 1 to 2 tablets by mouth every 6 hours as needed 2 Active [employer]Touch Ultra 2 w/Device Kit USE DIRECTED TO TEST BLOOD SUGARS 1 Each 09/09/2023 11:01 AM EST 4 Active Pen [place] 31G X 5 MMIndications:Typ e 2 diabetes [...] every 10 days. E11.9 Active Dexcom G7 Chief Operator Device Use as directed. Use as [...] 4 Active Vitamin D (Ergocalciferol) 1.25 MG (81140 UT) Oral Capsule (Drisdol)Indicati ons:Vitamin D deficiency [...] the skin daily per titration chart from [facility] clinic. 45 mL 3 4 Active [...] insulin ([facility]) Taper and transition to Xultophy per [facility] titration chart. 4 Active Hospital, Clinic, or Other Facility Administered Medication Ordered Dose Route Frequency Start Date End Date Status Albuterol Sulfate (Proventil) (2.5 MG/3ML) 0.083% inhalation solution 2.5 mgIndications:ILD (interstitial lung disease) ([facility]),BEARDEN (dyspnea on exertion) 2.5 mg NEBULIZER Q4H PRN 12/12/2023 Act jose documented as of this encounter (statuses as of 08/21/2024) Active Problems Problem Noted Date Diagnosed Date [...] as of this encounter (statuses as of 08/21/2024) Resolved Problems Problem Noted Date Diagnosed Date [...] as of this encounter (statuses as of 08/21/2024) Immunizations Name Administration Dates Next Due COVID-19 mRNA, LNP-s, No Pre serve, 2-Dose Series ([employer]) 07/03/2021,12/27/2020,12/06/2020 COVID-19, MRNA-LNP, PF, 30 M CG/0.3 mL, 12 YRS AND ABOVE, IM (PFIZER-Comirnat) 05/22/2024,02/22/2024,06/16/2023 Pneumococcal Conjugate Vacci ne, 20-valent ([id number]) 12/07/2022 Pneumococcal Polysaccharide PPV23 (Pneumovax) 09/08/2020 RSV [...] No 12/22/2023 Does the household have a [facility] source of income? (Household - for ages [...] Progress Notes * Mirtha Novak RPh - 08/21/2024 1:30 PM EST Images from the original note were not included. Diabetes telephone follow - up 08/21/2024 Patient Phone Numbers - Reason for contacting patient: Following up with patient on recent Xultophy start. Patient reports he hasn't yet received the drug. He did stop prandin, however he reports sugars went up to 500 andso it was restarted. - Current diabetic medications: Taper off Lantus 45 units at bedtime - per titration chart above Taper on Xultophy 44 units at bedtime - per titration chart above STOP Prandin 0.5mg 1 tablet with evening meal Metformin 500 mg ER 1 tab daily (at bedtime) Jardiance 25 mg daily Therapy Management Assessment/Plan: 1) Diabetes: Contacted mail order - drug had been put on hold due to pending prior auth with [facility]. Asked them to run it again and it went through, should arrive to patient on Tuesday. Confirmed with patient that he still has a copy of the scale above. Follow up in 2 weeks or sooner as needed. Mirtha David RPh, Pharm D Clinical Pharmacist Medication Therapy Management [facility] 08/21/2024, 1:30 PM documented in this encounter Plan of Treatment Upcoming Encounters Date Type Department Care Team (Late st Contact Info) Description 09/04/2024 3:30 PM EST Telemedicine Family Practice 65 [facility] 293 [facility], [place] [address] College, Pharmacist [address] [place] [address] 09/07/2024 8:40 AM EST Office Visit Family Practice 65 [facility] [address] [place] [address] Javy Moscoso DO [address] [place] [phone] 09/14/2024 11:30 AM EST Office Visit Hematology/Oncology [facility] 200 [facility], [place] [phone] Katt Mullen CRNP [address] [place] [address] [place] [address] 09/28/2024 8:00 AM EST Office Visit Family Practice [address] [place] [address] 293 [facility], [place] [address] College, Pharmacist [address], [place] [address] 11/30/2024 9:30 AM EDT Office Visit Gastroenterology, [facility] 132 [facility] [place] [address] Teddy Mullen CRNP [address] [place] [address] 02/15/2025 10:00 AM EDT Office Visit Sleep Disorders Ctr [facility] 132 [facility] [place] [phone] Debby Cornejo DO 132 [facility] [place] [address] 04/10/2025 10:40 AM EDT Office Visit Nephrology, [address] Avila 200 [place] [place] [address] Augusto Lerner MD 200 [facility] [place] [address] Scheduled Procedures Name Priority Associated Diagnoses Date/Ti me COLONOSCOPY FLEXIBLE PROXIMA L DIAGNOSTIC Recall History of colonic polyps Health Maintenance Due Date Last Done Comments Cologuard 01/12/1997 Sigmoidoscopy 01/12/1997 Fecal Occult Blood Test 11/18/2023 11/18/19, 11/17/2022, 03/16/2022, Additional history exists CKD PHOS USE SMARTSET 98712 05/05/2024 090 02/2023, 02/02/2023, 01/11/2022, Additional history exists Diabetic Foot Exam 06/16/2024 06/16/2023, 06/16/2023 Albumin/Creatinine Ratio 09/09/2024 09/09/2023, 1111/2021 Adult Wellness Visit 09/28/2024 09/28/2023 GFR 12/17/2024 06/18/2024, 03/30, 03/09/2024, Additional history exists Depression Screening 12/21/2024 12/22/2023 HbA1c 02/01/2025 08/03/2024, 03/30, 12/15/2023, Additional history exists Diabetic Eye Exam 03/06/2025 03/06/2024, , 08/24/2023, Additional history exists Colonoscopy 05/03/2025 05/03/2024, 0912/2023, 12/10/2022, Additional history exists Colorectal Cancer Screening 05/03/2025 O2 ASSESSMENT COMPLETED IN PAST YEAR FOR COPD 05/03/2025 05/03/2024 CKD HGB USE SMARTSET 73468 08/20/202508/20, 08/20/2024, 07/19/2024, Additional history exists DTap/Tdap [...] of Attor kwabena? No Care Teams Manager Home Relationship Specialty Start Date End Date Javy Moscoso DO [address] [place] [phone] PCP - General Family Medicine 07/04/23 documented as of this encounter
--- OUTSIDE RECORDS SUMMARY | 2024-11-03 09:40 | External Medical Summary | Summary of Care ---
Author Name Unknown Organization [facility] Address [address] [place] [address] Phone [phone] Care Team Providers Care Tunnel Heading Inspector Name Role Phone Danis, Javy Primary Care Provider + [phone] Reason for Visit * Reason Comments Outpatient Testing Encounter Details Date Type Department Care Team ([facility] st Contact Info) Description 08/20/2024 9:10 AM EST Laboratory [facility] [phone] [address] [address] Iron deficiency anemia due to chronic blood loss Allergies Active Allergy Reactions Criticality Noted Date Comments Lisinopril Unknown Low 11/15/2022 Verapamil Medium 06/26/2020 Heart Block documented as of this encounter (statuses as of 08/20/2024) Medications CPAP every night at bedtime. Active Acetaminophen 500 MG Oral Tablet (Tylenol) Take 1 to 2 tablets by mouth every 6 hours as needed 2 Active Debt Wealth Builders CompanyTouch Ultra 2 w/Device Kit USE DIRECTED TO TEST BLOOD SUGARS 1 Each 09/09/2023 11:01 AM EST 4 Active Pen [place] 31G X 5 MMIndications:Typ e 2 diabetes mellitus with hyperglycemia, with long-term current use of insulin ([facility]) Use as directed. Use as directed [...] every 10 days. E11.9 Active Dexcom G7 Plastic Technician Device Use as directed. Use as [...] 4 Active Vitamin D (Ergocalciferol) 1.25 MG (24927 UT) Oral Capsule (Drisdol)Indicati ons:Vitamin D deficiency [...] insulin ([facility]) Take 1 Tablet by mouth in the [...] the skin daily per titration chart from [facility] clinic. 45 mL 3 4 Active [...] insulin ([facility]) Taper and transition to Xultophy per [facility] titration chart. 4 Active Hospital, Clinic, or Other Facility Administered Medication Ordered Dose Route Frequency Start Date End Date Status Albuterol Sulfate (Proventil) (2.5 MG/3ML) 0.083% inhalation solution 2.5 mgIndications:ILD (interstitial lung disease) ([facility]),BEARDEN (dyspnea on exertion) 2.5 mg NEBULIZER Q4H PRN 12/12/2023 Act jose documented as of this encounter (statuses as of 08/20/2024) Active Problems Problem Noted Date Diagnosed Date [...] as of this encounter (statuses as of 08/20/2024) Resolved Problems Problem Noted Date Diagnosed Date [...] as of this encounter (statuses as of 08/20/2024) Immunizations Name Administration Dates Next Due COVID-19 mRNA, LNP-s, No Pre serve, 2-Dose Series ([employer]) 07/03/2021,12/27/2020,12/06/2020 COVID-19, MRNA-LNP, PF, 30 M CG/0.3 mL, 12 YRS AND ABOVE, IM (PFIZER-Comirnaty) 05/22/2024,02/22/2024,06/16/2023 Pneumococcal Conjugate Vacci ne, 20-valent ([id number]) 12/07/2022 Pneumococcal Polysaccharide PPV23 (Pneumovax) 09/08/2020 RSV [...] Does the household have a [facility] source of income? (Household - for ages [...] Entry Date Author No 02/15/2019 2:08 AM Alexnadr Hernandez RN documented in this encounter Plan of Treatment Upcoming Encounters Date Type Department Care Team (Late st Contact Info) Description 08/21/2024 3:50 PM EST Telemedicine Family Practice [address] [place] [address] 293 [facility] [place] [address] [place], Pharmacist [address] [address] 09/07/2024 8:40 AM EST Office Visit Family Practice [facility] [address] [place] [phone] Javy Moscoso DO [address] [place] [address] 09/14/2024 11:30 AM EST Office Visit Hematology/Oncology [facility] [address] Katt Mullen CRNP 400 [facility] [place] [address] 09/28/2024 8:00 AM EST Office Visit Family Practice [address] [place] [address] 293 [facility], [place] [address] [place], Pharmacist [address] [place] [address] 11/30/2024 9:30 AM EDT Office Visit Gastroenterology, [facility] [address] [place] [address] Teddy Mullen CRNP [address] [place] [address] 02/15/2025 10:00 AM EDT Office Visit Sleep Disorders Ctr [facility] 132 [facility] [place] [phone] Debby Cornejo, [address] [place] [address] 04/10/2025 10:40 AM EDT Office Visit Nephrology, [facility] 200 [facility] [place] [address] Augusto Lerner MD 200 [facility] [place] [address] Pending Results Name Type Priority Associated Diagnoses Date /Time CBC WITH WBC DIFFERENTIAL Lab STAT Iron deficiency anemia due to chronic blood loss 08/20/2024 8:09 AM EST IRON SCREEN, INCLUDING TIBC Lab STAT Iron deficiency anemia due to chronic blood loss 08/20/2024 8:09 AM EST FERRITIN Lab STAT Iron deficiency anemia due to chronic blood loss 08/20/2024 8:09 AM EST CBC Lab STAT Iron deficiency anemia due to chronic blood loss 08/20/2024 8:09 AM EST DIFFERENTIAL, AUTOMATED Lab STAT Iron deficiency anemia due to chronic blood loss 08/20/2024 8:09 AM EST Scheduled Procedures Name Priority Associated Diagnoses Date/Ti me COLONOSCOPY FLEXIBLE PROXIMA L DIAGNOSTIC Recall History of colonic polyps Health Maintenance Due Date Last Done Comments Cologuard 01/12/1997 Sigmoidoscopy 01/12/1997 Fecal Occult Blood Test 11/18/2023 11/18/19, 11/17/2022, 03/16/2022, Additional history exists CKD PHOS USE SMARTSET 23974 05/05/2024 09/0 02/2023, 02/02/2023, 01/11/2022, Additional history [...] COPD 05/03/2025 05/03/2024 CKD HGB USE SMARTSET 39730 07/19/202507/19, 07/19/2024, 06/18/2024, Additional history exists DTap/Tdap [...] Power of Attor kwabena? No Care Teams Tunnel Heading Inspector Relationship Specialty Start Date End Date Javy Moscoso DO [address] [place] [address] PCP - General Family Medicine 07/04/23 documented as of this encounter
--- OUTSIDE RECORDS SUMMARY | 2024-11-03 09:40 | External Medical Summary | Summary of Care ---
Author Name Unknown Organization [facility] Address [address] [place] [address] Phone [phone] Care Team Providers Care Shingle Bolt Cutter Name Role Phone Javy Moscoso DO Primary Care Provider Reason for Visit * Reason Onset Date Comments Test Results 08/04/2024 Encounter Details Date Type Department Care Team (Late st Contact Info) Description 08/04/2024 Telephone Family Practice 65 [facility] [address] [place] [place] [address] Javy Moscoso DO [address] [place] [address] Test Results Allergies Active Allergy Reactions Criticality Noted Date Comments Lisinopril Unknown Low 11/15/2022 Verapamil Medium 06/26/2020 Heart Block documented as of this encounter (statuses as of 08/06/2024) Medications CPAP every night at bedtime. Active Acetaminophen 500 MG Oral Tablet (Tylenol) Take 1 to 2 tablets by mouth every 6 hours as needed 2 Active NexiTouch Ultra 2 w/Device Kit USE DIRECTED TO TEST BLOOD SUGARS 1 Each 09/09/2023 11:01 AM EST 4 Active Pen [place] 31G X 5 MMIndications:Typ e 2 diabetes [...] every 10 days. E11.9 Active Dexcom G7 Investigator Cash Shortage Device Use as directed. Use as directed [...] 2 times a day. 60 mL 5 07/16/2024 8:50 AM EST 4 Active Gabapentin 300 MG [...] 4 Active Vitamin D (Ergocalciferol) 1.25 MG (65832 UT) Oral Capsule (Drisdol)Indicati ons:Vitamin D deficiency [...] current use of insulin ([facility]) Take 1 Tablet by mouth in the [...] the skin daily per titration chart from [facility] clinic. 45 mL 3 4 Active Zoster [...] current use of insulin ([facility]) Taper and transition to Xultophy per [facility] titration chart. 4 Active Hospital, Clinic, or Other Facility Administered Medication Ordered Dose Route Frequency Start Date End Date Status Albuterol Sulfate (Proventil) (2.5 MG/3ML) 0.083% inhalation solution 2.5 mgIndications:ILD (interstitial lung disease) ([facility]),BEARDEN (dyspnea on exertion) 2.5 mg NEBULIZER Q4H PRN 12/12/2023 Act jose documented as of this encounter (statuses as of 08/06/2024) Active Problems Problem Noted Date Diagnosed Date [...] as of this encounter (statuses as of 08/06/2024) Resolved Problems Problem Noted Date Diagnosed Date [...] as of this encounter (statuses as of 08/06/2024) Immunizations Name Administration Dates Next Due COVID-19 mRNA, LNP-s, No Pre serve, 2-Dose Series ([employer]) 07/03/2021,12/27/2020,12/06/2020 COVID-19, MRNA-LNP, PF, 30 M CG/0.3 mL, 12 YRS AND ABOVE, IM (PFIZER-Comirnaty) 05/22/2024,02/22/2024,06/16/2023 Pneumococcal Conjugate Vacci ne, 20-valent ([id number]) 12/07/2022 Pneumococcal Polysaccharide PPV23 (Pneumovax) 09/08/2020 RSV [...] Encounter - Sandra De Jesus LPN - 08/06/2024 2:47 PM EST Spoke with she verbalized understanding. states Pt is currently running in the 300's for blood sugar via Dexcom G7 since the pharmacist stopped Prandin. Was to start Xultophy still using Lantus until approval of Xultophy. Pt states his sugars have been higher at all times of the day sincestopping the Prandin. * Telephone Encounter - Javy Moscoso DO - 08/04/2024 6:16 PM EST Lab studies shows diabetes well controlled with hemoglobin A1c level 6.9. Advise continue present medication, diabetic diet and exercise documented in this encounter Plan of Treatment Upcoming Encounters Date Type Department Care Team (Late st Contact Info) Description 08/08/2024 2:00 PM EST Hem/Onc Treatment Hematology/Oncology Treatment, [place] [address] [place] [address] Margarita, Chair 7 Hem Onc [facility] [address] [facility] [address] 08/21/2024 3:50 PM EST Telemedicine Family Practice 65 [address], [place] 293 [place] [address] College, Pharmacist [address] [place] [address] 09/07/2024 8:40 AM EST Office Visit Family Practice [address] [facility] [address] [place] [place] [address] Javy Moscoso DO [address] [place] [address] 09/14/2024 11:30 AM EST Office Visit Hematology/Oncology [facility] 200 [facility] [place] [address] Katt Mullen CRNP 400 [facility] [address] 09/28/2024 8:00 AM EST Office Visit Family Practice 65 [facility] 293 [place] [address] College, Pharmacist [address] [place] [address] 10/03/2024 11:00 AM EST Nurse Only Family Practice 65 [facility] [address] [place] [address] Mary Ellen Sorenson, JOAQUIN 293 [place] [phone] 11/30/2024 9:30 AM EDT Office Visit Gastroenterology, [facility] 132 [facility] [place] [address] Teddy Mullen CRNP 132 [place] [address] 02/15/2025 10:00 AM EDT Office Visit Sleep Disorders Ctr [facility] 132 [facility] [place] [address] Debby Cornejo, DO [address] [place] [address] 04/10/2025 10:40 AM EDT Office Visit Nephrology, [place] Avila [address] [place] [address] Augusto Lerner MD 200 [facility] [place] [address] Scheduled Procedures Name Priority Associated Diagnoses Date/Ti me COLONOSCOPY FLEXIBLE PROXIMA L DIAGNOSTIC Recall History of colonic polyps Health Maintenance Due Date Last Done Comments Cologuard 01/12/1997 Sigmoidoscopy 01/12/1997 Fecal Occult Blood Test 11/18/2023 11/18/19 23, 11/17/2022, 03/16/2022, Additional history exists CKD PHOS USE SMARTSET 69479 05/05/2024 09/0 02/2023, 02/02/2023, 01/11/2022, Additional history exists Diabetic Foot Exam 06/16/2024 06/16/2023, 06/16/2023 Albumin/Creatinine Ratio 09/09/2024 09/09/2023, 11/2021 Adult Wellness Visit 09/28/2024 09/28/2023 GFR 12/17/2024 06/18/2024, 03/30, 03/09/2024, Additional history exists Depression Screening 12/21/2024 12/22/2023 HbA1c 02/01/2025 08/03/2024, 03/30, 12/15/2023, Additional history exists Diabetic Eye Exam 03/06/2025 03/06/2024, , 08/24/2023, Additional history exists Colonoscopy 05/03/2025 05/03/2024, 0 12/2023, 12/10/2022, Additional history exists Colorectal Cancer Screening 05/03/2025 O2 ASSESSMENT COMPLETED IN PAST YEAR FOR COPD 05/03/2025 05/03/2024 CKD HGB USE SMARTSET 58202 07/19/202507/19, 07/19/2024, 06/18/2024, Additional history exists DTap/Tdap [...] Power of Attor kwabena? No Care Teams Shingle Bolt Cutter Relationship Specialty Start Date End Date Javy Moscoso DO [address] [place] [phone] PCP - General Family Medicine 07/04/23 documented as of this encounter
--- OUTSIDE RECORDS SUMMARY | 2024-11-03 09:40 | External Medical Summary ---
Author Name Unknown Address Unknown Organization [id number]:[facility] [place] [address] [place] [facility] [place] [address] Laboratory Report Ordering Provider Test Date Status MONTSE MEJIA 08/20/2024 08:09:42 Final Observation Date Value Abnormality Reference (Units ) Status SYNC LEUKOCYTES IN BLOOD BY AUTOMATED COUNT 08/20/2024 08:09:42 6.39 4.00-10.80 (K/uL) Final Segs 08/20/2024 08:09:42 69.5 40.0-75.0 (%) Final Lymphs % 08/20/2024 08:09:42 18.3 18.0-42.0 (%) Final Monos 08/20/2024 08:09:42 8.1 1.0-11.0 (%) Final Eosinophils 08/20/2024 08:09:42 2.5 0.0-6.0 (%) Final Basos 08/20/2024 08:09:42 1.3 0.0-2.0 (%) Final Immature Granulocyte, Percent 08/20/2024 08:09:42 0.3 0.0-2.0 (%) Final Absolute Segs 08/20/2024 08:09:42 4.44 1.80-7.70 (K/uL) Final Lymphs, absolute 08/20/2024 08:09:42 1.17 1.00-4.80 (K/ul) Final Monos, Abs 08/20/2024 08:09:42 0.52 0.00-1.10 (K/uL) Final Eos, Abs 08/20/2024 08:09:42 0.16 0.00-0.70 (K/uL) Final Basos, Abs 08/20/2024 08:09:42 0.08 0.00-0.20 (K/uL) Final Immature Granulocytes, Number 08/20/2024 08:09:42 0.02 0.00-0.20 (K/uL) Final Performing Location [facility] [place] [address] [facility] [address]
--- OUTSIDE RECORDS SUMMARY | 2024-11-03 09:40 | External Medical Summary ---
Author Name Unknown Address Unknown Organization K01:[facility] [place] [address] [place] [address] Laboratory Report Ordering Provider Test Date Status MONTSE MEJIA 08/20/2024 08:09:42 Final Observation Date Value Abnormality Reference (Units ) Status Iron 08/20/2024 08:09:42 93 45-176 (ug /dL) Final Iron-binding capacity 08/20/2024 08:09:42 290 250-425 (ug/dL) Final Transferrin Sat % 08/20/2024 08:09:42 32 15 -55 (%) Final Performing Location LABORATORY C - [address] [place] [address]
--- OUTSIDE RECORDS SUMMARY | 2024-11-03 09:40 | External Medical Summary ---
Author Name Unknown Address Unknown Organization K01[place] [place] [address] [facility] [address] [facility] [address] Laboratory Report Ordering Provider Test Date Status MONTSE MEJIA 08/20/2024 08:09:42 Final Observation Date Value Abnormality Reference (Units ) Status WBC, Total 08/20/2024 08:09:42 6.39 4.00-10.8 0 (K/uL) Final RBC 08/20/2024 08:09:42 4.72 4.50-5.25 (M/uL) Final Hemoglobin 08/20/2024 08:09:42 13.7 Below low normal 14 .0-16.8 (g/dL) Final HCT 08/20/2024 08:09:42 46.6 40.0-48.4 (%) Final MCV 08/20/2024 08:09:42 98.7 82.0-99.5 (fL) Final MCH 08/20/2024 08:09:42 29.0 27.0-34.0 (pg) Final MCHC 08/20/2024 08:09:42 29.4 32.0-36.0 (g/dL) Final RDW 08/20/2024 08:09:42 15.0 11.5-15.5 (%) Final Platelets 08/20/2024 08:09:42 129 Below low normal 140 -400 (K/uL) Final MPV 08/20/2024 08:09:42 Final No result - abnormal platele t distribution. Nucleated erythrocytes/100 l eukocytes [Ratio] in Blood by Automated count 08/20/2024 08:09:42 0 <=0 (/100 WBCs) Final Performing Location [facility] [place] [address] [place] [address]
--- OUTSIDE RECORDS SUMMARY | 2024-11-03 09:40 | External Medical Summary | Summary of Care ---
Author Name Unknown Organization [facility] Address [address] [place] [address] Phone [phone] Care Team Providers Care Restaurant Area Director Name Role Phone Javy Moscoso DO Primary Care Provider + [phone] Encounter Details Date Type Department Care Team (Late st Contact Info) Description 08/06/2024 Orders Only Hematology/Oncology Treatment, [place] [address] [place] [address] Katt Mullen CRNP 400 [place] [address] Allergies Active Allergy Reactions Criticality Noted Date Comments Lisinopril Unknown Low 11/15/2022 Verapamil Medium 06/26/2020 Heart Block documented as of this encounter (statuses as of 08/06/2024) Medications CPAP every night at bedtime. Active Acetaminophen 500 MG Oral Tablet (Tylenol) Take 1 to 2 tablets by mouth every 6 hours as needed 2 Active LiveBidTouch Ultra 2 w/Device Kit USE DIRECTED TO TEST BLOOD SUGARS 1 Each 09/09/2023 11:01 AM EST 4 Active Pen [place] 31G X 5 MMIndications:Typ e 2 diabetes [...] every 10 days. E11.9 Active Dexcom G7 Weld Inspector Device Use as directed. Use as directed to monitor blood sugars daily Active [facility] Ultra In Vitro Strip (Glucose Blood)Indications :Type [...] 4 Active Vitamin D (Ergocalciferol) 1.25 MG (32472 UT) Oral Capsule (Drisdol)Indicati ons:Vitamin D deficiency [...] the skin daily per titration chart from [facility] clinic. 45 mL 3 4 Active Zoster [...] long-term current use of insulin ([facility]) Taper and transition to Xultophy per [facility] titration chart. 4 Active Hospital, Clinic, or Other Facility Administered Medication Ordered Dose Route Frequency Start Date End Date Status Albuterol Sulfate (Proventil) (2.5 MG/3ML) 0.083% inhalation solution 2.5 mgIndications:ILD (interstitial lung disease) ([facility]),BEARDEN (dyspnea on exertion) 2.5 mg [...] mRNA, LNP-s, No Pre serve, 2-Dose Series ([employer]) 07/03/2021,12/27/2020,12/06/2020 COVID-19, MRNA-LNP, PF, 30 M CG/0.3 mL, 12 YRS AND ABOVE, IM (PFIZER-Comirnaty) 05/22/2024,02/22/2024,06/16/2023 Pneumococcal Conjugate Vacci ne, 20-valent ([id number]) 12/07/2022 Pneumococcal Polysaccharide PPV23 (Pneumovax) 09/08/2020 RSV [...] EDT Brock, Ke lsey A, RN * Because of a physical, mental, [...] Alexandr Hernandez RN documented in this encounter Plan of Treatment Upcoming Encounters Date Type Department Care Team (Late st Contact Info) Description 08/08/2024 2:00 PM EST Hem/Onc Treatment Hematology/Oncology Treatment, [place] 200 [facility], [place] [phone] Margarita, Chair 7 Hem Onc [facility] 200 [facility] [address] 08/21/2024 3:50 PM EST Telemedicine Family Practice [address] [place] [address] 293 [facility], [place] [address] College, Pharmacist [address], [place] [address] 09/07/2024 8:40 AM EST Office Visit Family Practice [address] [place] [address] [address] [place] [phone] Javy Moscoso DO [address] [place] [address] 09/14/2024 11:30 AM EST Office Visit Hematology/Oncology [facility] 200 [facility] [phone] Katt Mullen CRNP [address] [place] [address] 09/28/2024 8:00 AM EST Office Visit Family Practice [address] [place] [address] 293 [facility] [address] College, Pharmacist 65 [facility] [address] [place] [address] 10/03/2024 11:00 AM EST Nurse Only Family Practice 65 [facility] [address] [place] [address] Mary Ellen Sorenson RN 293 [place] [address] 11/30/2024 9:30 AM EDT Office Visit Gastroenterology, [facility] [place] [address] Teddy Mullen CRNP 132 [facility] [address] 02/15/2025 10:00 AM EDT Office [facility] [place] [phone] Debby Cornejo DO 132 [facility] [place] [address] 04/10/2025 10:40 AM EDT Office Visit [facility] [address] [place] [address] Augusto Lerner MD 200 [facility] [place] [address] Scheduled Procedures Name Priority Associated Diagnoses Date/Ti me COLONOSCOPY FLEXIBLE PROXIMA L DIAGNOSTIC Recall History of colonic polyps Health Maintenance Due Date Last Done Comments Cologuard 01/12/1997 Sigmoidoscopy 01/12/1997 Fecal Occult Blood Test 11/18/2023 11/18/19, 11/17/2022, 03/16/2022, Additional history exists CKD PHOS USE SMARTSET 74954 05/05/2024 09/0 02/2023, 02/02/2023, 01/11/2022, Additional history [...] COPD 05/03/2025 05/03/2024 CKD HGB USE SMARTSET 35347 07/19/202507/19, 07/19/2024, 06/18/2024, Additional history exists DTap/Tdap [...] Power of Attor kwabena? No Care Teams Restaurant Area Director Relationship Specialty Start Date End Date Javy Moscoso DO [address] [place] [phone] PCP - General Family Medicine 07/04/23 documented as of this encounter
--- OUTSIDE RECORDS SUMMARY | 2024-11-03 09:40 | External Medical Summary | Summary of Care ---
Author Name Unknown Organization [facility] Address [address] [place] [address] Phone [phone] Care Team Providers Care Hip Hop Dance Instructor Name Role Phone Javy Moscoso DO Primary Care Provider [phone] Reason for Visit * Reason Comments IV Therapy Monoferric * Episode Based Medications (Routine) - Authorized Specialty Diagnoses / Procedures Referred By Contac t Referred To Contact Diagnoses Iron deficiency anemia due to chronic blood loss Procedures CO INJ. FE DERISOMALTOSE 10 MG Katt Mullen CRNP [address] [place] [address] Phone: tel: fax: Hematology/Oncology Treatment, [address] [address] Phone: tel: fax: Referral ID Status Reason Start Date Expiration Date V isits Requested Visits Authorized [id number] Authorized 07/20/2024 09/29/2024 [id number] Encounter Details Date Type Department Care Team (Latest Contact Info) Description 08/08/2024 2:00 PM EST Hem/Onc Treatment Hematology/Oncology Treatment, [address] [address] Margarita Chair 7 Hem Onc [address] [place] [address] Iron deficiency anemia due to chronic blood loss* Allergies Active Allergy Reactions Criticality Noted Date Comments Lisinopril Unknown Low 11/15/2022 Verapamil Medium 06/26/2020 Heart Block documented as of this encounter (statuses as of 08/09/2024) Medications CPAP every night at bedtime. Active Acetaminophen 500 MG Oral Tablet (Tylenol) Take 1 to 2 tablets by mouth every 6 hours as needed 2 Active Spinal USAuch Ultra 2 w/Device Kit USE DIRECTED TO TEST BLOOD SUGARS 1 Each 09/09/2023 11:01 AM EST 4 Active Pen [place] 31G X 5 MMIndications:Typ e 2 diabetes [...] every 10 days. E11.9 Active Dexcom G7 Sales Architect Device Use as directed. Use as directed to monitor blood sugars daily Active test company Ultra In Vitro Strip (Glucose Blood)Indications :Type [...] 4 Active Vitamin D (Ergocalciferol) 1.25 MG (66542 UT) Oral Capsule (Drisdol)Indicati ons:Vitamin D deficiency [...] the skin daily per titration chart from [facility] clinic. 45 mL 3 4 Active [...] (HCC) Taper and transition to Xultophy per [facility] titration chart. 4 Active Hospital, Clinic, [...] 12/07/2022 Bilateral impacted cerumen 10/22/2022 Atherosclerosis of [place] co ronary artery without angina pectoris 07/15/2022 [...] mRNA, LNP-s, No Pre serve, 2-Dose Series (TwentyPeople) 07/03/2021,12/27/2020,12/06/2020 COVID-19, MRNA-LNP, PF, 30 M CG/0.3 mL, 12 YRS AND ABOVE, IM (PFIZER-Comirnaty) 05/22/2024,02/22/2024,06/16/2023 Pneumococcal Conjugate Vacci ne, 20-valent ([id number]) 12/07/2022 Pneumococcal Polysaccharide PPV23 (Pneumovax) 09/08/2020 RSV [...] Info) Description 08/21/2024 3:50 PM EST Telemedicine [address] [address] College, Pharmacist [address] [place] [address] 09/07/2024 8:40 AM EST Office Visit Family [place] [address] [address] [facility] [address] [place] [address] Javy Moscoso DO [address] [place] [address] 09/14/2024 11:30 AM EST Office Visit Hematology/Oncology [facility] 200 [facility] [place] [phone] Katt Mullen CRNP 400 [facility] [address] 09/28/2024 8:00 AM EST Office Visit Family Practice 65 [facility], [place] 293 [facility], [place] [address] College, Pharmacist 65 [facility] 293 [place] [address] 11/30/2024 9:30 AM EDT Office Visit Gastroenterology, [facility] 132 [facility] [address] Teddy Mullen CRNP 132 [place] [address] 02/15/2025 10:00 AM EDT Office Visit [facility] 132 [facility] [phone] Debby Cornejo DO 132 [facility] [address] 04/10/2025 10:40 AM EDT Office Visit Nephrology, [facility] [address] [place] [address] Augusto Lerner MD 200 [facility] [place] [address] Scheduled Procedures Name Priority Associated Diagnoses Date/Ti me COLONOSCOPY FLEXIBLE PROXIMA L DIAGNOSTIC Recall History of colonic polyps Health Maintenance Due Date Last Done Comments Cologuard 01/12/1997 Sigmoidoscopy 01/12/1997 Fecal Occult Blood Test 11/18/2023 11/18/19 23, 11/17/2022, 03/16/2022, Additional history exists CKD PHOS USE SMARTSET 62889 05/05/2024 09/0 02/2023, 02/02/2023, 01/11/2022, Additional history [...] COPD 05/03/2025 05/03/2024 CKD HGB USE SMARTSET 37249 07/19/202507/19, 07/19/2024, 06/18/2024, Additional history exists DTap/Tdap [...] Power of Attor kwabena? No Care Teams Hip Hop Dance Instructor Relationship Specialty Start Date End Date Javy Moscoso DO [address] [place] [address] PCP - General Family Medicine 07/04/23 documented as of this encounter
--- OUTSIDE RECORDS SUMMARY | 2024-11-03 09:40 | External Medical Summary | Summary of Care ---
Author Name Unknown Organization [facility] Address [address] [place] [address] Phone [phone] Care Team Providers Care Collaborative Physician Name Role Phone Javy Moscoso DO Primary Care Provider [phone] Reason for Visit * Reason Comments IV Therapy Monoferric * Episode Based Medications (Routine) - Authorized Specialty Diagnoses / Procedures Referred By Contac t Referred To Contact Diagnoses Iron deficiency anemia due to chronic blood loss Procedures AR INJ. FE DERISOMALTOSE 10 MG Katt Mullen CRNP [address] [place] [address] Phone: tel: fax: Hematology/Oncology Treatment, [address] [address] Phone: tel: fax: Referral ID Status Reason Start Date Expiration Date V isits Requested Visits Authorized [id number] Authorized 07/20/2024 09/29/[id number] Encounter Details Date Type Department Care Team (Latest Contact Info) Description 08/08/2024 2:00 PM EST Hem/Onc Treatment Hematology/Oncology Treatment, [address] [address] Margarita Chair 7 Hem Onc [address] [place] [address] Iron deficiency anemia due to chronic blood loss* Allergies Active Allergy Reactions Criticality Noted Date Comments Lisinopril Unknown Low 11/15/2022 Verapamil Medium 06/26/2020 Heart Block documented as of this encounter (statuses as of 08/08/2024) Medications CPAP every night at bedtime. Active Acetaminophen 500 MG Oral Tablet (Tylenol) Take 1 to 2 tablets by mouth every 6 hours as needed 2 Active Zuga Medicaluch Ultra 2 w/Device Kit USE DIRECTED TO TEST BLOOD SUGARS 1 Each 09/09/2023 11:01 AM EST 4 Active Pen [place] 31G X 5 MMIndications:Typ e 2 diabetes [...] every 10 days. E11.9 Active Dexcom G7 Automotive Technician Device Use as directed. Use as directed to monitor blood sugars daily Active Mobile Complete Ultra In Vitro Strip (Glucose Blood)Indications :Type [...] 4 Active Vitamin D (Ergocalciferol) 1.25 MG (53790 UT) Oral Capsule (Drisdol)Indicati ons:Vitamin D deficiency [...] [facility] clinic. 45 mL 3 4 Active [...] [facility] titration chart. 4 Active Hospital, Clinic, or Other Facility Administered Medication Ordered Dose Route Frequency Start Date End Date Status Albuterol Sulfate (Proventil) (2.5 MG/3ML) 0.083% inhalation solution 2.5 mgIndications:ILD (interstitial lung disease) (HCC),BEARDEN (dyspnea on exertion) 2.5 mg NEBULIZER Q4H PRN 12/12/2023 Act jose documented as of this encounter (statuses as of 08/08/2024) Active Problems Problem Noted Date Diagnosed Date [...] 12/07/2022 Bilateral impacted cerumen 10/22/2022 Atherosclerosis of [place] co ronary artery without angina pectoris 07/15/2022 [...] as of this encounter (statuses as of 08/08/2024) Resolved Problems Problem Noted Date Diagnosed Date [...] as of this encounter (statuses as of 08/08/2024) Immunizations Name Administration Dates Next Due COVID-19 mRNA, LNP-s, No Pre serve, 2-Dose Series (RFID Global Solution) 07/03/2021,12/27/2020,12/06/2020 COVID-19, MRNA-LNP, PF, 30 M CG/0.3 mL, 12 YRS AND ABOVE, IM (PFIZER-Comirnaty) 05/22/2024,02/22/2024,06/16/2023 Pneumococcal Conjugate Vacci ne, 20-valent ([id number]) 12/07/2022 Pneumococcal Polysaccharide PPV23 (Pneumovax) 09/08/2020 RSV [...] Assessment Author No 02/15/2019 2:08 AM ANUMT Christiano Gutiérrez RN * Are you blind or [...] Info) Description 08/21/2024 3:50 PM EST Telemedicine [address] [address] College, Pharmacist [address] [place] [address] 09/07/2024 8:40 AM EST Office Visit Family [place] [address] [address] [place] [address] [place] [address] Javy Moscoso DO [address] [place] [address] 09/14/2024 11:30 AM EST Office Visit Hematology/Oncology [facility] 200 [facility] [place] [phone] Katt Mullen CRNP 400 [facility] [place] [address] 09/28/2024 8:00 AM EST Office Visit Family Practice 65 [facility] [place] 293 [facility], [place] [address] College, Pharmacist 65 [facility] 293 [place] [address] 11/30/2024 9:30 AM EDT Office Visit Gastroenterology, [facility] 132 [facility] [address] Teddy Mullen CRNP 132 [place] [address] 02/15/2025 10:00 AM EDT Office Visit [facility] Ctr [facility] 132 [facility] [phone] Debby Cornejo DO 132 [facility] [address] 04/10/2025 10:40 AM EDT Office Visit Nephrology, [facility] 200 [address] [place] [address] Augusto Lerner MD 200 [facility] [place] [address] Scheduled Procedures Name Priority Associated Diagnoses Date/Ti me COLONOSCOPY FLEXIBLE PROXIMA L DIAGNOSTIC Recall History of colonic polyps Health Maintenance Due Date Last Done Comments Cologuard 01/12/1997 Sigmoidoscopy 01/12/1997 Fecal Occult Blood Test 11/18/2023 11/18/19 23, 11/17/2022, 03/16/2022, Additional history exists CKD PHOS USE SMARTSET 25396 05/05/2024 09/0 02/2023, 02/02/2023, 01/11/2022, Additional history [...] COPD 05/03/2025 05/03/2024 CKD HGB USE SMARTSET 86883 07/19/202507/19, 07/19/2024, 06/18/2024, Additional history exists DTap/Tdap [...] (chronic) documented in this encounter Administered Medications Active Administered Medications - up to 3 most recent administrations Medication Order MAR Action Action Date Dose Rate Site diphenhydrAMINE (Benadryl) inj 50 mg 50 mg, IV Push, ONCE PRN Other, Hypersensitivity Reaction, Starting on Tue08/08/24 at 1410, Until Mai 08/09/24 at 1409, For 24 hoursIndications:Iron deficiency anemia due to chronic blood loss EPINEPHrine 1 MG/ML inj 0.3 mg 0.3 mg, Intramuscular, ONCE PRN Other, Hypersensitivity Reaction or Anaphylaxis, Starting on Tue08/08/24 at 1410, Until Mai 08/09/24 at 1409, For 24 hoursIndications:Iron deficiency anemia due to chronic blood loss hEParin 100 UNIT/ML Lock Flush inj 500 Units 500 Units (5 mL), IV Lock, PRN Other, IV Flush, Starting on Tue08/08/24 at 1410, Until Tue08/09/24 at 1409, For 24 hours, Do not flush if lock, PICC, or central line not in place; IV infusing or unable to flush.Indications:Iron deficiency anemia due to chronic blood loss Hydrocortisone Sod Suc (PF) (Solu-Cortef) inj 100 mg 100 mg, IV Push, ONCE PRN Other, Hypersensitivity Reaction, Starting on Tue08/08/24 at 1410, Until Mai 08/09/24 at 1409, For 24 hoursIndications:Iron deficiency anemia due to chronic blood loss NSS infusion Intravenous, at 50 mL/hr, PRN, Starting on Tue08/08/24 at 1515, Until Discontinued, Maintenance lineIndications:Iron deficiency anemia due to chronic blood loss Start Infusion 08/08/2024 2:11 PM EST 50 mL/hr oxygen GAS Inhalation, OXYGEN, First dose on Tue08/08/24 at 1600, Until Discontinued, Device/Managed by: Low Flow Device, Goal SPO2 (%): 91-95, Starting Device: Nasal Cannula, Initial Flow Rate (LPM): 2, Lowest Support: Nasal Cannula: Flow 0-6 LPM. Titrate up/down by 1 LPM., Higher Support: Non-Rebreather (NRB) Mask: Minimum of 10 LPM. Titrate to maintain bag inflation., Titration Interval: Q2 minutes and as needed., Notify Provider: For sudden DECREASE in resting SPO2 to less than 85% and when escalating delivery device., Wean patient off Oxygen when the oxygen saturation is greater than or equal to 93%Indications:Iron deficiency anemia due to chronic blood loss sodium chloride 0.9 % flush central line 10 mL 10 mL, IV Push, PRN Other, IV Flush, Starting on Tue08/08/24 at 1410, Until Mai 08/09/24 at 1409, For 24 hours, Do not flush if lock, PICC, or central line not in place; IV infusing or unable to flush.Indications:Iron deficiency anemia due to chronic blood loss Inactive Administered Medications - up to 3 [...] 2:14 PM EST 1,000 mg 530 mL/hr documented in this encounter Advance Directives [...] Power of Attor kwabena? No Care Teams Collaborative Physician Relationship Specialty Start Date End Date Javy Moscoso DO [address] [place] [phone] PCP - General Family Medicine 11/6/23 documented as of this encounter
--- OUTSIDE RECORDS SUMMARY | 2024-11-03 09:40 | External Medical Summary | Summary of Care ---
Author Name Unknown Organization [facility] Address [address] [place] [address] Phone [phone] Care Team Providers Care Harness Repairer Name Role Phone Javy Moscoso DO Primary Care Provider [phone] Reason for Visit * Reason Onset Date Comments Test Results 08/04/2024 Encounter Details Date Type Department Care Team (Late st Contact Info) Description 08/04/2024 [facility]phone [facility] [place] [address] Javy Moscoso DO [address] [place] [address] Test Results Allergies Active Allergy Reactions Criticality Noted Date Comments Lisinopril Unknown Low 11/15/2022 Verapamil Medium 06/26/2020 Heart Block documented as of this encounter (statuses as of 08/07/2024) Medications CPAP every night at bedtime. Active Acetaminophen 500 MG Oral Tablet (Tylenol) Take 1 to 2 tablets by mouth every 6 hours as needed 2 Active AproMed CorpTouch Ultra 2 w/Device Kit USE DIRECTED TO TEST BLOOD SUGARS 1 Each 09/09/2023 11:01 AM EST 4 Active Pen [place] 31G X 5 MMIndications:Typ e 2 diabetes [...] every 10 days. E11.9 Active Dexcom G7 Account Associate Device Use as directed. Use as directed [...] 4 Active Vitamin D (Ergocalciferol) 1.25 MG (70512 UT) Oral Capsule (Drisdol)Indicati ons:Vitamin D deficiency [...] long-term current use of insulin ([facility]) Take 1 Tablet by mouth in the [...] the skin daily per titration chart from [facility] clinic. 45 mL 3 4 Active [...] long-term current use of insulin ([facility]) Taper and transition to Xultophy per [facility] titration chart. 4 Active Hospital, Clinic, or Other Facility Administered Medication Ordered Dose Route Frequency Start Date End Date Status Albuterol Sulfate (Proventil) (2.5 MG/3ML) 0.083% inhalation solution 2.5 mgIndications:ILD (interstitial lung disease) ([facility]),BEARDEN (dyspnea on exertion) 2.5 mg NEBULIZER Q4H PRN 12/12/2023 Act jose documented as of this encounter (statuses as of 08/07/2024) Active Problems Problem Noted Date Diagnosed Date [...] 12/07/2022 Bilateral impacted cerumen 10/22/2022 Atherosclerosis of [place] co ronary artery without angina pectoris 07/15/2022 [...] as of this encounter (statuses as of 08/07/2024) Resolved Problems Problem Noted Date Diagnosed Date [...] as of this encounter (statuses as of 08/07/2024) Immunizations Name Administration Dates Next Due COVID-19 mRNA, LNP-s, No Pre serve, 2-Dose Series ([employer]) 07/03/2021,12/27/2020,12/06/2020 COVID-19, MRNA-LNP, PF, 30 M CG/0.3 mL, 12 YRS AND ABOVE, IM (PFIZER-Comirnaty) 05/22/2024,02/22/2024,06/16/2023 Pneumococcal Conjugate Vacci ne, 20-valent ([id number]) 12/07/2022 Pneumococcal Polysaccharide PPV23 (Pneumovax) 09/08/2020 RSV [...] No 12/22/2023 Does the household have a [facility] source of income? (Household - for ages [...] Telephone Encounter - Javy Moscoso DO - 08/07/2024 4:12 PM EST Spoke with patient and patient's . Advise resume Prandin 0.5 mg 1 tab with evening meal pending approval of Xultophy * Telephone Encounter - Sandra De Jesus [...] 2:00 PM EST Hem/Onc Treatment Hematology/Oncology Treatment, [place] [address] [place], [place] [phone] Margarita, Chair 7 Hem Onc Scenery 200 [facility] [place], [place] [address] 08/21/2024 3:50 PM EST Telemedicine Family Practice 65 [facility] 293 [facility], [place] [address] College, Pharmacist [address] [place] [address] 09/07/2024 8:40 AM EST Office Visit Family Practice 65 [facility] [address] [place] [phone] Javy Moscoso DO [address] [place] [phone] 09/14/2024 11:30 AM EST Office Visit Hematology/Oncology [facility] 200 [facility] [place], [place] [address] Katt Mullen CRNP [address] [place], [place] [address] [address] 09/28/2024 8:00 AM EST Office Visit Family Practice 65 [facility] 293 [facility], [place] [address] College, Pharmacist [address], [place] [address] 11/30/2024 9:30 AM EDT Office Visit Gastroenterology, [facility] 132 [facility] [place] [address] Teddy Mullen CRNP 132 [facility] [address] 02/15/2025 10:00 AM EDT Office Visit [facility] Disorders Ctr [facility] [address] [place] [phone] Debby Cornejo DO [address] [place] [address] 04/10/2025 10:40 AM EDT Office Visit NephrologyЕкатерина [address] [place] [address] Augusto Lerner MD 200 [facility] [place] [address] Scheduled Procedures Name Priority Associated Diagnoses Date/Ti me COLONOSCOPY FLEXIBLE PROXIMA L DIAGNOSTIC Recall History of colonic polyps Health Maintenance Due Date Last Done Comments Cologuard 01/12/1997 Sigmoidoscopy 01/12/1997 Fecal Occult Blood Test 11/18/2023 11/18/19 23, 11/17/2022, 03/16/2022, Additional history exists CKD PHOS USE SMARTSET 12600 05/05/2024 090 02/2023, 02/02/2023, 01/11/2022, Additional history [...] COPD 05/03/2025 05/03/2024 CKD HGB USE SMARTSET 56068 07/19/202507/19, 07/19/2024, 06/18/2024, Additional history exists DTap/Tdap [...] Power of Attor kwabena? No Care Teams Harness Repairer Relationship Specialty Start Date End Date Javy Moscoso DO [address] [place] [address] PCP - General Family Medicine 07/04/23 documented as of this encounter
--- OUTSIDE RECORDS SUMMARY | 2024-11-03 09:40 | External Medical Summary ---
Author Name Unknown Address Unknown Organization K01:[facility] [place] - [address] [place] [address] Laboratory Report Ordering Provider Test Date Status MONTSE MEJIA 08/20/2024 08:09:42 Final Observation Date Value Abnormality Reference (Units ) Status Ferritin 08/20/2024 08:09:42 380 30-400 (ng /mL) Final Performing Location [facility] - [address] [place] [address]
--- OUTSIDE RECORDS SUMMARY | 2024-11-03 09:41 | External Medical Summary | Summary of Care ---
Author Name Unknown Organization [facility] Address [address] [place] [address] Phone [phone] Care Team Providers Care Hospital Education Coordinator Name Role Phone Danis, Javy Primary Care Provider [phone] Reason for Visit * Reason Onset Date Comments Appointment 07/27/2024 Sebas Encounter Details Date Type Department Care Team (Late st Contact Info) Description 07/27/2024 Telephone Hematology/Oncology [facility] 200 [facility] [place] [address] Katt Mullen CRNP [address] [place] [address] Appointment ([place]) Allergies Active Allergy Reactions Criticality Noted Date Comments Lisinopril Unknown Low 11/15/2022 Verapamil Medium 06/26/2020 Heart Block documented as of this encounter (statuses as of 07/31/2024) Medications CPAP every night at bedtime. Active Acetaminophen 500 MG Oral Tablet (Tylenol) Take 1 to 2 tablets by mouth every 6 hours as needed 2 Active NoribachiTouch Ultra 2 w/Device Kit USE DIRECTED TO TEST BLOOD SUGARS 1 Each 09/09/2023 11:01 AM EST 4 Active Pen [place] 31G X 5 MMIndications:Ty pe 2 diabetes mellitus with hyperglycemia, with long-term current use of insulin (HCC) Use as directed. Use as directed with glargine insulin once daily 100 Each 3 06/01/2024 6:56 PM EDT 4 Active Torsemide 20 MG Oral Tablet (Demadex)Indicat ions:HTN, goal below 140/90 TAKE ONE TABLET BY MOUTH EVERY MORNING 90 Tablet 3 07/30/2024 11:50 AM EST 4 11/02/19 25 Active Vitamin B-12 2500 MCG Sublingual Tablet Sublingual Place 1 Tablet under the tongue in the morning. Active Dexcom G7 Sensor Use as directed. Use as directed to monitor blood sugars daily. Replace sensor every 10 days. E11.[address] Scientist Device Use as directed. Use as directed [...] Tablet 2 05/21/2024 6:02 PM EDT 4 03/15/20 25 Active Losartan Potassium 100 MG Oral [...] 5 07/16/2024 8:50 AM EST 4 Active Repaglinide 0.5 MG Oral Tablet (Prandin)Indicat ions:Type 2 diabetes mellitus with stage 3b chronic kidney disease, with long-term current use of insulin (HCC) Take 1 tablet by mouth with evening meal. 90 Tablet 3 04/28/2024 10:27 AM EDT 4 Active Insulin Glargine Solostar 100 UNIT/ML Subcutaneous Solution Pen-injector (Lantus SoloStar)Indicat ions:Type 2 diabetes mellitus with hyperglycemia, with long-term current use of insulin (HCC) Inject 45 Units under the skin at bedtime. 45 mL 3 07/03/2024 6:16 AM EST 4 Active Gabapentin 300 MG [...] 4 Active Vitamin D (Ergocalciferol) 1.25 MG (07720 UT) Oral Capsule (Drisdol)Indicat ions:Vitamin D deficiency [...] on 07/24/2024 Empagliflozin 25 MG Oral Tablet (Jardiance)Indic ations:Type 2 diabetes mellitus with hyperglycemia, without long-term current use of insulin (HCC),Type 2 diabetes mellitus with stage 3b chronic kidney disease, without long-term current use of insulin (HCC) Take 1 Tablet by mouth in the morning. 90 Tablet 3 07/18/2024 10:56 AM EST 4 Active Hospital, Clinic, or Other Facility Administered Medication Ordered Dose Route Frequency Start Date End Date Status Albuterol Sulfate (Proventil) (2.5 MG/3ML) 0.083% inhalation solution 2.5 mgIndications:ILD (interstitial lung disease) (HCC),BEARDEN (dyspnea on exertion) 2.5 mg NEBULIZER Q4H PRN 12/12/2023 Act jose documented as of this encounter (statuses as of 07/31/2024) Active Problems Problem Noted Date Diagnosed Date [...] as of this encounter (statuses as of 07/31/2024) Resolved Problems Problem Noted Date Diagnosed Date [...] as of this encounter (statuses as of 07/31/2024) Immunizations Name Administration Dates Next Due COVID-19 mRNA, LNP-s, No Pre serve, 2-Dose Series (Pfizer) 07/03/2021,12/27/2020,12/06/2020 COVID-19, MRNA-LNP, PF, 30 M CG/0.3 mL, 12 YRS AND ABOVE, IM (PFIZER-Comirnaty) 05/22/2024,02/22/2024,06/16/2023 Pneumococcal Conjugate Vacci ne, 20-valent ([id number]) 12/07/2022 Pneumococcal Polysaccharide PPV23 (Pneumovax) 09/08/2020 Season [...] 2:08 AM ANUMT Alexandr Gutiérrez RN * Because of a [...] Entry Date Author No 02/15/2019 2:08 AM ANUMT Alexandr Gutiérrez RN documented in this encounter Miscellaneous Notes * Telephone Encounter - Aleksandra Austin OSA - 07/31/2024 8:43 AM EST Cyndi is calling in to reschedule his iron infusion Please call her back to assist * Telephone Encounter - Reza Bass RN - 07/27/2024 12:31 PM EST Katt- fyangeli Aurora- fyi * Telephone Encounter - Joseluis Barker OSA - 07/27/2024 12:09 PM EST Called patient to adjust time of upcoming infusion on 07/30 (this needed to be done to accommodate another treatment that needed to be scheduled). Spoke with . Original time was 9:30. Attempted tomove to 9:00. Patient/ refused. Offered multiple times to move infusion. refused and hung up saying "he said he's not coming. He's tired of being moved around." Patient not been bumped priorto this for this infusion that I was able to see. Nursing FYI documented in this encounter Plan of Treatment Upcoming Encounters Date Type Department Care Team (Late st Contact Info) Description 08/03/2024 8:00 AM EST Office Visit Family Practice [address] [place] [address] 293 [facility] [place] [address] College, Pharmacist [address] [place] [address], [place] [address] 09/07/2024 8:40 AM EST Office Visit Family Practice [address] [place] [address] [place] [address] [place] [phone] Javy Moscoso DO [address] [place] [address] 09/14/2024 11:30 AM EST Office Visit Hematology/Oncology [facility] 200 [facility] [place] [phone] Katt Mullen CRNP 400 [facility] [place] [address] 10/03/2024 11:00 AM EST Nurse Only Family Practice 65 [facility] [address] [place] [address] Mary Ellen Sorenson, JOAQUIN [address] [facility] [phone] 02/15/2025 10:00 AM EDT Office Visit Sleep Disorders Ctr [facility] [address] [place] [phone] Debby Cornejo, DO [facility] [place] [address] 04/10/2025 10:40 AM EDT Office Visit Nephrology, [facility] 200 [facility] [place] [address] Augusto Lerner MD 200 [facility] [place] [address] Scheduled Procedures Name Priority Associated Diagnoses Date/Ti me COLONOSCOPY FLEXIBLE PROXIMA L DIAGNOSTIC Recall History of colonic polyps Health Maintenance Due Date Last Done Comments Cologuard 01/12/1997 Sigmoidoscopy 01/12/1997 Fecal Occult Blood Test 11/18/2023 11/18/19, 11/17/2022, 03/16/2022, Additional history exists CKD PHOS USE SMARTSET 73875 05/05/2024 09/0 02/2023, 02/02/2023, 01/11/2022, Additional history exists Diabetic Foot Exam 06/16/2024 06/16/2023, 06/16/2023 Albumin/Creatinine Ratio 09/09/2024 09/09/2023, 11/2021 Adult Wellness Visit 09/28/2024 09/28/2023 HbA1c 10/20/2024 04/19/2024, 11/27, 09/08/2023, Additional history exists GFR 12/17/2024 06/18/2024, 03/30, 03/09/2024, Additional history exists Depression Screening 12/21/2024 12/22/2023 Diabetic Eye Exam 03/06/2025 03/06/2024, , 08/24/2023, Additional history exists Colonoscopy 05/03/2025 05/03/2024, 12/2023, 12/10/2022, Additional history exists Colorectal Cancer Screening 05/03/2025 O2 ASSESSMENT COMPLETED IN PAST YEAR FOR COPD 05/03/2025 05/03/2024 CKD HGB USE SMARTSET 22102 07/19/202507/19, 07/19/2024, 06/18/2024, Additional history exists DTap/Tdap [...] Power of Attor kwabena? No Care Teams Hospital Education Coordinator Relationship Specialty Start Date End Date Javy Moscoso DO [address] [place] [address] PCP - General Family Medicine 07/04/23 documented as of this encounter
--- OUTSIDE RECORDS SUMMARY | 2024-11-03 09:41 | External Medical Summary | Summary of Care ---
Author Name Unknown Organization [facility] Address [address] [place] [address] Phone [phone] Care Team Providers Care Water Hydrant Installer Name Role Phone Javy Moscoso DO Primary Care Provider [phone] Encounter Details Date Type Department Care Team (Late st Contact Info) Description 07/27/2024 Telephone Hematology/Oncology [facility] [place] [address] [facility] [place] [facility] [place] [address] Katt Mullen CRNP [address] [place] [address] Allergies Active Allergy Reactions Criticality Noted Date Comments Lisinopril Unknown Low 11/15/2022 Verapamil Medium 06/26/2020 Heart Block documented as of this encounter (statuses as of 07/30/2024) Medications CPAP every night at bedtime. Active Acetaminophen 500 MG Oral Tablet (Tylenol) Take 1 to 2 tablets by mouth every 6 hours as needed 2 Active OneTouch Ultra 2 w/Device Kit USE DIRECTED TO TEST BLOOD SUGARS 1 Each 09/09/2023 11:01 AM EST 4 Active Pen [place] 31G X 5 MMIndications:Ty pe 2 diabetes [...] every 10 days. E11.9 Active Dexcom G7 Behaviour Support Teacher Device Use as directed. Use as directed to monitor blood sugars daily Active OneNetworked Organisms Ultra In Vitro Strip (Glucose Blood)Indication s:Type [...] 4 Active Vitamin D (Ergocalciferol) 1.25 MG (35288 UT) Oral Capsule (Drisdol)Indicat ions:Vitamin D deficiency [...] 90 Tablet 3 07/18/2024 10:56 AM EST Active Hospital, Clinic, or Other Facility Administered Medication Ordered Dose Route Frequency Start Date End Date Status Albuterol Sulfate (Proventil) (2.5 MG/3ML) 0.083% inhalation solution 2.5 mgIndications:ILD (interstitial lung disease) ([facility]),BEARDEN (dyspnea on exertion) 2.5 mg NEBULIZER Q4H PRN 12/12/2023 Act jose documented as of this encounter (statuses as of 07/30/2024) Active Problems Problem Noted Date Diagnosed Date [...] 12/07/2022 Bilateral impacted cerumen 10/22/2022 Atherosclerosis of [place] co ronary artery without angina pectoris 07/15/2022 [...] as of this encounter (statuses as of 07/30/2024) Resolved Problems Problem Noted Date Diagnosed Date [...] as of this encounter (statuses as of 07/30/2024) Immunizations Name Administration Dates Next Due COVID-19 mRNA, LNP-s, No Pre serve, 2-Dose Series (Pfizer) 07/03/2021,12/27/2020,12/06/2020 COVID-19, MRNA-LNP, PF, 30 M CG/0.3 mL, 12 YRS AND ABOVE, IM (PFIZER-Comirnaty) 05/22/2024,02/22/2024,06/16/2023 Pneumococcal Conjugate Vacci ne, 20-valent ([id number]) 12/07/2022 Pneumococcal Polysaccharide PPV23 (Pneumovax) 09/08/2020 Season [...] Date Author No 02/15/2019 2:08 AM EDT Brock, Ke lsey A, RN documented in this encounter Miscellaneous Notes * Telephone Encounter - Reza Bass RN - 07/27/2024 12:31 PM EST Marley Simon- fyi * Telephone Encounter - Joseluis Barker [...] 8:00 AM EST Office Visit Family Practice [address] [place] [address] 293 [place] [address] College, Pharmacist [address] [place] [address] 09/07/2024 8:40 AM EST Office Visit Family Practice [address] [place] [address] [place] [address] [place] [address] Javy Moscoso DO [address] [place] [address] 09/14/2024 11:30 AM EST Office Visit Hematology/Oncology [facility] [address] Katt Mullen CRNP [address] [place] [address] [place] [address] 10/03/2024 11:00 AM EST Nurse Only Family Practice [address] [place] [place] [address] [place] [address] Mary Ellen Sorenson, RN 293 Janet Morales [place] [address] 02/15/2025 10:00 AM EDT Office Visit Sleep Disorders Ctr [facility] [address] [place] [phone] Debby Cornejo, [address] [place] [address] 04/10/2025 10:40 AM EDT Office Visit Nephrology, [place] [address] [place] [address] Augusto Lerner MD [address] [place] [address] Scheduled Procedures Name Priority Associated Diagnoses Date/Ti me COLONOSCOPY FLEXIBLE PROXIMA L DIAGNOSTIC Recall History of colonic polyps Health Maintenance Due Date Last Done Comments Cologuard 01/12/1997 Sigmoidoscopy 01/12/1997 Fecal Occult Blood Test 11/18/2023 11/18/19 23, 11/17/2022, 03/16/2022, Additional history exists CKD PHOS USE SMARTSET 82087 05/05/2024 09/0 02/2023, 02/02/2023, 01/11/2022, Additional history exists Diabetic Foot Exam 06/16/2024 06/16/2023, 06/16/2023 Albumin/Creatinine Ratio 09/09/2024 09/09/2023, 1111/2021 Adult Wellness Visit 09/28/2024 09/28/2023 HbA1c 10/20/2024 04/19/2024, 11/27, 09/08/2023, Additional history exists GFR 12/17/2024 06/18/2024, 03/30, 03/09/2024, Additional history exists Depression Screening 12/21/2024 12/22/2023 Diabetic Eye Exam 03/06/2025 03/06/2024, , 08/24/2023, Additional history exists Colonoscopy 05/03/2025 05/03/2024, 12/2023, 12/10/2022, Additional history exists Colorectal Cancer Screening 05/03/2025 O2 ASSESSMENT COMPLETED IN PAST YEAR FOR COPD 05/03/2025 05/03/2024 CKD HGB USE SMARTSET 02599 07/19/202507/19, 07/19/2024, 06/18/2024, Additional history exists DTap/Tdap [...] Power of Attor kwabena? No Care Teams Water Hydrant Installer Relationship Specialty Start Date End Date Javy Moscoso DO [address] [place] [address] PCP - General Family Medicine 07/04/23 documented as of this encounter
--- OUTSIDE RECORDS SUMMARY | 2024-11-03 09:41 | External Medical Summary | Summary of Care ---
Author Name Unknown Organization [facility] Address [address] [place] [address] Phone [phone] Care Team Providers Care Brush Sander Name Role Phone Danis, Javy Primary Care Provider [phone] Reason for Visit * Reason Onset Date Comments Appointment 07/27/2024 Sebas Encounter Details Date Type Department Care Team (Late st Contact Info) Description 07/27/2024 Telephone Hematology/Oncology [facility] 200 [facility] [place] [address] Katt Mullen CRNP 400 [place] [address] Appointment ([place]) Allergies Active Allergy Reactions Criticality Noted Date Comments Lisinopril Unknown Low 11/15/2022 Verapamil Medium 06/26/2020 Heart Block documented as of this encounter (statuses as of 07/31/2024) Medications CPAP every night at bedtime. Active Acetaminophen 500 MG Oral Tablet (Tylenol) Take 1 to 2 tablets by mouth every 6 hours as needed 2 Active ApiaryTouch Ultra 2 w/Device Kit USE DIRECTED TO TEST BLOOD SUGARS 1 Each 09/09/2023 11:01 AM EST 4 Active Pen [place] 31G X 5 MMIndications:Ty pe 2 diabetes [...] every 10 days. E11.9 Active Dexcom G7 Electric Motor Winders Assembler Device Use as directed. Use as directed [...] 4 Active Vitamin D (Ergocalciferol) 1.25 MG (89864 UT) Oral Capsule (Drisdol)Indicat ions:Vitamin D deficiency [...] (PFIZER-Comirnaty) 05/22/2024,02/22/2024,06/16/2023 Pneumococcal Conjugate Vacci ne, 20-valent ([id number]) 12/07/2022 Pneumococcal Polysaccharide PPV23 (Pneumovax) 09/08/2020 Season [...] Telephone Encounter - Ninfa Dominguez OSA - 07/31/2024 1:19 PM EST Pt is scheduled and is aware * Telephone Encounter - Aleksandra Austin OSA - 07/31/2024 8:43 AM EST Cyndi is calling in to reschedule his iron infusion Please call her back to assist * Telephone Encounter - Reza Bass RN - 07/27/2024 12:31 PM EST Katt- sheron Aurora- fyi * Telephone Encounter - Joseluis [...] AM EST Office Visit Family Practice 65 [facility] 293 [place] [address] College, Pharmacist [address] [place] [address] 08/08/2024 2:00 PM EST Hem/Onc Treatment Hematology[facility], [facility] [phone] Margarita, Chair [address] Hem Onc Scenery 200 [facility] [place] [address] 09/07/2024 8:40 AM EST Office Visit Family Practice [address] [place] [address] [address] [place] [address] Javy Moscoso DO [address] [place] [address] 09/14/2024 11:30 AM EST Office Visit Hematology/Oncology [facility] [place] 200 [facility] [place] [phone] Katt Mullen CRNP 400 [facility] [phone] 10/03/2024 11:00 AM EST Nurse Only Family Practice [address] [place] [address] [place] [address] [place] [address] Mary Ellen Sorenson, JOAQUIN 293 [facility] [address] 02/15/2025 10:00 AM EDT Office Visit Sleep Disorders Ctr [facility] [place] [address] [place] [phone] Debby Cornejo DO [address] [place] [address] 04/10/2025 10:40 AM EDT Office Visit Nephrology, [facility] 200 [facility] [place] [address] Augusto Lerner MD 200 [facility] [place] [address] Scheduled Procedures Name Priority Associated Diagnoses Date/Ti me COLONOSCOPY FLEXIBLE PROXIMA L DIAGNOSTIC Recall History of colonic polyps Health Maintenance Due Date Last Done Comments Cologuard 01/12/1997 Sigmoidoscopy 01/12/1997 Fecal Occult Blood Test 11/18/2023 11/18/19 23, 11/17/2022, 03/16/2022, Additional history exists CKD PHOS USE SMARTSET 22639 05/05/2024 09/0 02/2023, 02/02/2023, 01/11/2022, Additional history [...] COPD 05/03/2025 05/03/2024 CKD HGB USE SMARTSET 44875 07/19/202507/19, 07/19/2024, 06/18/2024, Additional history exists DTap/Tdap [...] Power of Attor kwabena? No Care Teams Brush Sander Relationship Specialty Start Date End Date Javy Moscoso DO [address] [place] [address] PCP - General Family Medicine 07/04/23 documented as of this encounter
--- OUTSIDE RECORDS SUMMARY | 2024-11-03 09:41 | External Medical Summary | Summary of Care ---
Author Name Unknown Organization [facility] Address [address] [place] [address] Phone [phone] Care Team Providers Care Senior Mechanical Estimator Name Role Phone Javy Moscoso DO Primary Care Provider Reason for Visit * Reason Onset Date Comments Test Results 08/04/2024 Encounter Details Date Type Department Care Team (Late st Contact Info) Description 08/04/2024 Telephone [facility] 65 [facility] [address] [place] [address] Javy Moscoso DO [address] [place] [address] Test Results Allergies Active Allergy Reactions Criticality Noted Date Comments Lisinopril Unknown Low 11/15/2022 Verapamil Medium 06/26/2020 Heart Block documented as of this encounter (statuses as of 08/05/2024) Medications CPAP every night at bedtime. Active Acetaminophen 500 MG Oral Tablet (Tylenol) Take 1 to 2 tablets by mouth every 6 hours as needed 2 Active MarketShareTouch Ultra 2 w/Device Kit USE DIRECTED TO TEST BLOOD SUGARS 1 Each 09/09/2023 11:01 AM EST 4 Active Pen [place] 31G X 5 MMIndications:Typ e 2 diabetes [...] every 10 days. E11.9 Active Dexcom G7 Flaker Operator Device Use as directed. Use as [...] 4 Active Vitamin D (Ergocalciferol) 1.25 MG (97990 UT) Oral Capsule (Drisdol)Indicati ons:Vitamin D deficiency [...] disease, without long-term current use of insulin ([facility]) Take 1 Tablet by mouth in [...] the skin daily per titration chart from [facility] clinic. 45 mL 3 4 [...] current use of insulin ([facility]) Taper and transition to Xultophy per [facility] titration chart. 4 Active Hospital, Clinic, or Other Facility Administered Medication Ordered Dose Route Frequency Start Date End Date Status Albuterol Sulfate (Proventil) (2.5 MG/3ML) 0.083% inhalation solution 2.5 mgIndications:ILD (interstitial lung disease) ([facility]),BEARDEN (dyspnea on exertion) 2.5 mg NEBULIZER Q4H PRN 12/12/2023 Act jose documented as of this encounter (statuses as of 08/05/2024) Active Problems Problem Noted Date Diagnosed Date [...] impacted cerumen 10/22/2022 Atherosclerosis of [place] co ronary artery without angina pectoris 07/15/2022 [...] as of this encounter (statuses as of 08/05/2024) Resolved Problems Problem Noted Date Diagnosed Date [...] as of this encounter (statuses as of 08/05/2024) Immunizations Name Administration Dates Next Due COVID-19 mRNA, LNP-s, No Pre serve, 2-Dose Series ([facility]) 07/03/2021,12/27/2020,12/06/2020 COVID-19, MRNA-LNP, PF, 30 M CG/0.3 mL, 12 YRS AND ABOVE, IM (PFIZER-Comirnaty) 05/22/2024,02/22/2024,06/16/2023 Pneumococcal Conjugate Vacci ne, 20-valent ([id number]) 12/07/2022 Pneumococcal Polysaccharide PPV23 (Pneumovax) 09/08/2020 RSV [...] Does the household have a [facility] source of income? (Household - for [...] 2:00 PM EST Hem/Onc Treatment Hematology/Oncology Treatment, [place] 200 [facility] [place] [phone] Margarita, Chair 7 Hem Onc Scenery 200 [facility] [place] [address] 08/21/2024 3:50 PM EST Telemedicine Family Practice 65 [facility] 293 [place] [address] College, Pharmacist [address] [place] [address] 09/07/2024 8:40 AM EST Office Visit Family Practice 65 [address] [place] 10 [place] [address] Javy Moscoso DO 10 [place] [address] 09/14/2024 11:30 AM EST Office Visit Hematology/Oncology [facility] [address] [place] [phone] Katt Mullen CRNP 400 [facility] [place] [address] 09/28/2024 8:00 AM EST Office Visit Family Practice 65 [facility] 293 [place] [phone] College, Pharmacist [address] [place] [address] 10/03/2024 11:00 AM EST Nurse Only Family Practice 65 [facility] 10 [place] [address] Mary Ellen Sorenson RN 293 [place] [address] 11/30/2024 9:30 AM EDT Office Visit Gastroenterology, [facility] 132 [facility] [place] [address] Teddy Mullen CRNP 132 [facility] [place] [address] 02/15/2025 10:00 AM EDT Office Visit [facility] Disorders Ctr [facility] 132 [facility] [place] [phone] Debby Cornejo DO 132 [facility] [place] [address] 04/10/2025 10:40 AM EDT Office Visit Nephrology, [facility] 200 [facility] [place] [address] Augusto Lerner MD 200 [facility] [place] [address] Scheduled Procedures Name Priority Associated Diagnoses Date/Ti me COLONOSCOPY FLEXIBLE PROXIMA L DIAGNOSTIC Recall History of colonic polyps Health Maintenance Due Date Last Done Comments Cologuard 01/12/1997 Sigmoidoscopy 01/12/1997 Fecal Occult Blood Test 11/18/2023 11/18/19 23, 11/17/2022, 03/16/2022, Additional history exists CKD PHOS USE SMARTSET 43181 05/05/2024 09/0 02/2023, 02/02/2023, 01/11/2022, Additional history [...] COPD 05/03/2025 05/03/2024 CKD HGB USE SMARTSET 24569 07/19/202507/19, 07/19/2024, 06/18/2024, Additional history exists DTap/Tdap [...] of Attor kwabena? No Care Teams Senior Mechanical Estimator Relationship Specialty Start Date End Date Javy Moscoso DO [address] [place] [address] PCP - General Family Medicine 07/04/23 documented as of this encounter
--- OUTSIDE RECORDS SUMMARY | 2024-11-03 09:41 | External Medical Summary | Summary of Care ---
Author Name Unknown Organization [facility] Address [address] [place] [address] Phone [phone] Care Team Providers Care Hl7 Developer Name Role Phone Javy Moscoso DO Primary Care Provider + [phone] Reason for Visit * Reason Onset Date Comments Immunization RSV Vaccine 08/03/2024 Immunizations 08/03/2024 Shingrix Dosage Adjustment In Person ([facility]tico[facility]) Diabetes Follow-Up Encounter Details Date Type Department Care Team (Late st Contact Info) Description 08/03/2024 8:00 AM EST Office Visit Family Practice [address] [address] College, Pharmacist [address] [address] Type 2 diabetes mellitus with hyperglycemia, with long-term current use of insulin (HCC)*; Need for RSV vaccination; Need for vaccination for zoster; Type 2 diabetes mellitus with stage 3b chronic kidney disease, with long-term current use of insulin (HCC) Allergies Active Allergy Reactions Criticality Noted Date Comments Lisinopril Unknown Low 11/15/2022 Verapamil Medium 06/26/2020 Heart Block documented as of this encounter (statuses as of 08/03/2024) Medications CPAP every night at bedtime. Active Acetaminophen 500 MG Oral Tablet (Tylenol) Take 1 to 2 tablets by mouth every 6 hours as needed 03/09/20 22 Active Privy Groupe Ultra 2 w/Device Kit USE DIRECTED TO TEST BLOOD SUGARS 1 Each 4 11:01 AM EST 09/08/19 24 Active Pen Bingham 31G X 5 MMIndications:Typ e 2 diabetes mellitus with hyperglycemia, with long-term current use of insulin (HCC) Use as directed. Use as directed with glargine insulin once daily 100 Each 3 4 6:56 PM EDT 10/06/19 24 Active Torsemide 20 MG Oral Tablet [...] every 10 days. E11.9 Active Dexcom G7 Fabrication Technician Device Use as directed. Use as directed to monitor blood sugars daily Active TaDaweb In Vitro Strip (Glucose Blood)Indications :Type 2 [...] Tablet before bedtime. 180 Tablet 3 4 12:20 PM EDT 02/27/20 24 Active Ferrous Sulfate 325 (65 Fe) MG Oral Tablet (Feosol) Take 1 Tablet by mouth in the morning and 1 Tablet before bedtime. Active Fluticasone Propionate 50 MCG/ACT Nasal Suspension (Flonase)Indicati ons:Chronic maxillary sinusitis Administer 2 Sprays into each nostril in the morning. 48 g 3 4 7:22 AM EDT 03/05/20 24 Active Atorvastatin Calcium 40 MG Oral Tablet (Lipitor)Indicati ons:Dyslipidemia, goal LDL below 70 TAKE ONE TABLET BY MOUTH EVERY MORNING 90 Tablet 2 4 6:02 PM EDT 03/15/20 24 025 Active Losartan Potassium 100 [...] times a day. 60 mL 5 4 8:50 AM EST 04/16/20 24 Active Repaglinide 0.5 MG Oral Tablet (Prandin)Indicati ons:Type 2 diabetes mellitus with stage 3b chronic kidney disease, with long-term current use of insulin (HCC) Take 1 tablet by mouth with evening meal. 90 Tablet 3 4 10:27 AM EDT 04/19/20 24 Active Gabapentin 300 MG Oral Capsule (Neurontin)Indica tions:Spinal stenosis of lumbar region without neurogenic claudication Take 1 Capsule by mouth in the morning. 90 Capsule 3 4 10:56 AM EST 05/01/20 24 Active Gabapentin 600 MG Oral Tablet (Neurontin) Take 1 Tablet by mouth in the morning and 1 Tablet before bedtime. Noon and night. Active tiZANidine HCl 2 MG Oral Tablet (Zanaflex)Indicat ions:Spinal stenosis of lumbar region without neurogenic claudication Take 1 Tablet by mouth at bedtime as needed for Muscle spasms. 90 Tablet 1 4 11:36 AM EDT 06/08/20 24 Active Vitamin D (Ergocalciferol) 1.25 MG (84246 UT) Oral Capsule (Drisdol)Indicati ons:Vitamin D deficiency [...] Tablet 1 4 12:44 PM EST 07/27/20 Active Xultophy 100-3.6 UNIT-MG/ML Subcutaneous Solution Pen-injector (Insulin Degludec-Liraglut jeaneth) Inject up to 44 units under the skin daily per titration chart from [facility] clinic. 45 mL 3 08/03/20 24 Active Zoster Vac Recomb Adjuvanted [...] (HCC) Taper and transition to Xultophy per [facility] titration chart. 08/03/20 24 Active Arexvy 120 MCG/0.5ML Intramuscular Suspension Reconstituted (RSV PreF3 Vac Recomb Adjuvanted) Inject 0.5 mL into a large muscle once for 1 dose. 1 Each 4 10:06 AM EST 08/03/20 24 024 Active Insulin Glargine Solostar 100 UNIT/ML Subcutaneous Solution Pen-injector (Lantus SoloStar)Indicati ons:Type 2 diabetes mellitus with hyperglycemia, with long-term current use of insulin (HCC) Inject 45 Units under the skin at bedtime. 45 mL 3 4 6:16 AM EST 04/19/20 24 024 Discontin ued(Refil l) RSV mRNA Pre-F Virus Vaccine 50 MCG/0.5ML Intramuscular Suspension Prefilled SyringeIndication s:Need for RSV vaccination Inject 0.5 mL into a large muscle once for 1 dose. 0.5 mL 08/03/20 24 024 Discontin ued(Trans ferred) Hospital, Clinic, or Other Facility Administered Medication Ordered Dose Route Frequency Start Date End Date Status Albuterol Sulfate (Proventil) (2.5 MG/3ML) 0.083% inhalation solution 2.5 mgIndications:ILD (interstitial lung disease) ([facility]),BEARDEN (dyspnea on exertion) 2.5 mg NEBULIZER Q4H PRN 12/12/2023 Act jose documented as of this encounter (statuses as of 08/03/2024) Active Problems Problem Noted Date Diagnosed Date [...] 12/07/2022 Bilateral impacted cerumen 10/22/2022 Atherosclerosis of [place] co ronary artery without angina pectoris [...] as of this encounter (statuses as of 08/03/2024) Resolved Problems Problem Noted Date Diagnosed Date [...] as of this encounter (statuses as of 08/03/2024) Immunizations Name Administration Dates Next Due COVID-19 mRNA, LNP-s, No Pre serve, 2-Dose Series (Elpas) 07/03/2021,12/27/2020,12/06/2020 COVID-19, MRNA-LNP, PF, 30 M CG/0.3 mL, 12 YRS AND ABOVE, IM (PFIZER-Comirnaty) 05/22/2024,02/22/2024,06/16/2023 Pneumococcal Conjugate Vacci ne, 20-valent ([id number]) 12/07/2022 Pneumococcal Polysaccharide PPV23 (Pneumovax) 09/08/2020 RSV [...] 2:08 AM ANUMT Alexandr Gutiérrez RN documented as of this encounter Mental Status * Because of a physical, mental, or emotional condition, do you have serious difficulty concentrating, remembering, or making decisions? (5 years old or older) Answer Entry Date Author No 02/15/2019 2:08 AM Alexandr Hernandez RN documented in this encounter Patient Instructions * Patient Instructions* Bryn Li RPh - 08/03/2024 8:54 AM EST Possible side effects of RSV vaccine, (Respiratory Syncytial Virus), are usually mild and can include: Soreness, swelling or redness at injection site Low grade fever Body aches or joint pain Headache Nausea or diarrhea You may use a fever/pain reducing medication for these symptoms. LET YOUR DOCTOR KNOW IMMEDIATELY IF YOU HAVE DIFFICULTY BREATHING OR SWALLOWING, EXPERIENCE ITCHINGOF FEET OR HANDS, HAVE SWELLING OF EYES, FACE OR INSIDE OF NOSE. ~~PATIENT INSTRUCTIONS FOR SHINGRIX VACCINE~~ Possible side effects of Shingrix vaccine, (shingles), are usually mild and can include: 1. Soreness or redness at injection site 2. Low grade fever 3. Body aches You may use a fever / pain reducing medication as needed for these symptoms. LET YOUR DOCTOR KNOW IMMEDIATELY IF YOU HAVE DIFFICULTY BREATHING OR SWALLOWING, EXPERIENCE ITCHINGOF FEET OR HANDS, HAVE SWELLING OF EYES, FACE OR INSIDE OF NOSE. documented in this encounter Progress Notes * Bryn Li RPh - 08/03/2024 8:04 AM EST Images from the original note [...] (at bedtime) Jardiance 25 mg daily Lantus 45 units at bedtime Prandin 0.5mg 1 tablet with evening meal Medication Injection Site: Abdomen Lifestyle: Diet: unchanged. Pt reported drinking about 16 oz of beer once in a while. -pt reported having iron transfusion on 08/08 Glucose Review/SMBG: Readings obtained from patient device Received 3 Dexcom G7 sensors yesterday. Brought in the dexcom career development engineer to obtain reading. Hypoglycemia: Does your blood sugar go below 70 mg/dL? No Hyperglycemia symptoms present: none Recent Labs Units 04/19/24 0944 12/15/23 0750 09/08/23 1002 HEMOGLOBIN A1C - [facility] % 5.7* 8.3* 8.7* Recent Labs Units 06/18/24 0757 04/19/24 0944 03/09/24 0751 ESTIMATED GLOMERULAR FILTRATION RATE - [facility] mL/min 45* 45* 40* CREATININE - [facility] mg/dL 1.6* 1.6* 1.8* HYPERTENSION: Patient on ACEi/ARB: yes BP Readings from Last 3 Encounters: 07/24/24 112/73 06/08/24 118/64 05/03/24 130/58 Blood pressure at goal: yes HYPERLIPIDEMIA: Recent Labs Units 12/15/23 0750 03/21/23 0803 LDL CHOLESTEROL (CALCULATED) - [facility] mg/dL 59 -- LDL CHOLESTEROL (DIRECT MEASURE) - [facility] mg/dL -- 62 Does patient have clinical ASCVD? No, is patient LDL less than 70mg/dL? Yes HEALTH MAINTENANCE REVIEW: Health Maintenance Due Topic Date Due CKD PHOS USE SMARTSET 04976 05/05/2024 Diabetic Foot Exam 06/16/2024 Albumin/Creatinine Ratio 09/09/2024 Adult Wellness Visit 09/28/2024 ASSESSMENT & PLAN: ICD-10-CM 1. Type 2 diabetes mellitus with hyperglycemia, with long-term current use of insulin (HCC) E11.65 Z79.4 2. Need for RSV vaccination Z29.11 3. Need for vaccination for zoster Z23 4. Type 2 diabetes mellitus with stage 3b chronic kidney disease, with long-term current use of insulin (HCC) E11.22 N18.32 Z79.4 Pt's blood glucose is not at goal per recent Dexcom readings (blood transfusion in January, last A1C at 8.7% on 04/19/24), and post-meal blood sugar reading (especially after dinner) is the highest despite the initiation of mealtime Prandin. Educated pt on the effect of blood transfusion on A1C. Discussed previous use of metformin and educated pt on metformin max daily dose per renal function. Educated pt on MOA, ADR, and efficacy of Xultophy. Discussed the available evidence shows no significant increase of GI bleeding risk is associated with GLP1RA. Pt prefers transitioning from Lantus to Xultophy. Plan to discontinue Prandin and transition Lantus to Xultophy per titration chart below. Pt agreeable to plan and notify [facility] clinic if experiencing any side effects or having any questions or concerns. BG Readings - Blood sugars uncontrolled. Per dexcom blood glucose reading - higher blood glucose around meal times. 37% of blood glucose within target range - not at goal. Medications - Reviewed current regimen, patient is adherent to regimen. Confirmed that pt is all ofcurrent DM meds including taking Prandin 0.5mg 1 tablet 30 minutes before evening meal. No current ADR, concern or any problem reported. Diet, Exercise, Lifestyle - No significant lifestyle changes since last visit. Discussed with patient the negative impact of alcohol in DM. Patient is agreeable to continue using Dexcom G7. Patient aware to contact clinic if any hypoglycemia before next visit. Lantus Xultophy 45 0 Day 1-3 29 16 Day 4-6 27 18 Day 7-9 25 20 Day 10-12 23 22 Day 13-15 21 24 Day 16-18 19 26 Day 19-21 17 28 Day 22-24 15 30 Day 25-27 13 32 day 28-30 11 34 Day 31-33 9 36 day 34-36 7 38 Day 37-39 5 40 Day 40-42 3 42 Day 43 and beyond 0 44 MEDICATION CHANGES: yes, see below; preferred pharmacy: [facility] ([facility]) Diabetic Medications: STOP Lantus 45 units at bedtime - per titration chart above START Xultophy 44 units at bedtime - per titration chart above STOP Prandin 0.5mg 1 tablet with evening meal Metformin 500 mg ER 1 tab daily (at bedtime) Jardiance 25 mg daily HEALTH MAINTENANCE INTERVENTIONS: Labs: A1C drawn today. Immunizations: Pt is indicated for second dose of shingles, RSV - pt agreeable; pt reported that heonly gets vaccines at PCP's office - pt reported of not having the second Shingrix dose and not having an RSV vaccine before - administered Shingrix and Arexvy at today's visit. Foot Exam: assess at future visit Eye Exam: Up to Date Annual Wellness Visit: Up to Date FOLLOW UP: Return to clinic in 3 weeks - phone f/u on 08/21; in 8 weeks - inperson f/u on 09/28/24 I spent a total of Greater than 55 mins (exact time 70 mins) on the date of service in preparation,delivery, and documentation of the care provided to Walker Mancini excluding any time spent in theperformance of separately billed services. Does the patient have active shingles? No If, yes, patient must wait to receive vaccine till after rash is gone. Does the patient have an illness today with a fever more than 101?F? No Has the patient ever had a serious allergic reaction after receiving a vaccination? No Has the patient had a blood test showing they are not immune to Chicken Pox (rare)? No If yes, should get Chicken pox vaccine instead of shingrix. Verified patient has prescription/drug coverage. Patient has been informed that [employer]ogiMe copays are close to $0. In most cases copays will be around $10. The maximum co-pay patients may get could as high as $200. yes Shingrix Vaccine Information Sheet has been provided. Bryn Li RPh 08/03/2024 8:55 AM IMMUNIZATION ADMINISTRATION DOCUMENTATION Time Out Procedure Performed: Yes Patient Identified (Ask Name/Date of ): Yes Patient allergic to latex?No VFC Stock? No Immunization(s) verified: Yes, Immunization Name: RSV Arexvy and Shingrix, VIS Sheet(s) given: Yes Verified Side and Site: Yes Verified Shot(s) with Parent(s)/Patient: Yes Shingrix was administered per clinic protocol. Patient received the Shingrix VIS (Vaccine Information Sheet). Bryn Li RPh, 08/03/2024, 8:55 AM Bryn Li PharmD, [facility] PGY1 Import/Export Clerk Medication Therapy Management [facility] [place] 08/03/2024 10:02 AM documented in this encounter Plan of Treatment Upcoming Encounters Date Type Department Care Team (Late st Contact Info) Description 08/08/2024 2:00 PM EST Hem/Onc Treatment Hematology/Oncology Treatment, [place] [address] [place] [phone] Margarita, Chair [address] [facility] [address] 08/21/2024 3:50 PM EST Telemedicine Family Practice 65 [facility] [address] [place] [phone] College, Pharmacist [address] [place] [address] 09/07/2024 8:40 AM EST Office Visit Family Practice 65 [facility] [place] [address] [place] [address] Javy Moscoso DO [address] [place] [address] 09/14/2024 11:30 AM EST Office Visit Hematology/Oncology [facility] 200 [facility] [place] [phone] Katt Mullen CRNP [address], [place] [id number] 09/28/2024 8:00 AM EST Office Visit Family Practice 65 [facility] [address] [place] [phone] College, Pharmacist [address] [place] [address] 10/03/2024 11:00 AM EST Nurse Only Family Practice 65 [facility] [address] [place] [phone] Mary Ellen Sorenson, JOAQUIN 293 [place] [phone] 11/30/2024 9:30 AM EDT Office Visit Gastroenterology, [facility] [address] Teddy [facility]ullen CRNP [address] [facility] [address] 02/15/2025 10:00 AM EDT Office Visit [facility] [place] [address] [place] [address] Debby Corneoj DO [address] [place] [address] 04/10/2025 10:40 AM EDT Office Visit Nephrology, [address] [place] [address] Augusto Lerner MD 200 [facility] [place] [address] Pending Results Name Type Priority Associated Diagnoses Date /Time HEMOGLOBIN A1C Lab Routine Type 2 diabetes mellitus with stage 3b chronic kidney disease, with long-term current use of insulin ([facility]) 08/03/2024 9:16 AM EST Scheduled Procedures Name Priority Associated Diagnoses Date/Ti me COLONOSCOPY FLEXIBLE PROXIMA L DIAGNOSTIC Recall History of colonic polyps Health Maintenance Due Date Last Done Comments Cologuard 01/12/1997 Sigmoidoscopy 01/12/1997 Fecal Occult Blood Test 11/18/2023 11/18/19 23, 11/17/2022, 03/16/2022, Additional history exists CKD PHOS USE SMARTSET 73958 05/05/2024 09/02/2023, 02/02/2023, 01/11/2022, Additional history exists Diabetic Foot [...] COPD 05/03/2025 05/03/2024 CKD HGB USE SMARTSET 91925 07/19/202507/19, 07/19/2024, 06/18/2024, Additional history exists DTap/Tdap [...] long-term current use of insulin (HCC)- Primary Need for RSV vaccination Need for prophylactic vaccination and inoculation against respiratory syncytial virus Need for vaccination for zoster Need for prophylactic vaccination and inoculation against other viral diseases Type 2 diabetes mellitus with stage 3b [...] Power of Attor kwabena? No Care Teams Hl7 Developer Relationship Specialty Start Date End Date Javy Moscoso DO [address] [place] [address] PCP - General Family Medicine 07/04/23 documented as of this encounter
--- OUTSIDE RECORDS SUMMARY | 2024-11-03 09:41 | External Medical Summary | Summary of Care ---
Author Name Unknown Organization [facility] Address [address] [place] [address] Phone [phone] Care Team Providers Care Cloth Carrier Name Role Phone Javy Moscoso DO Primary Care Provider [phone] Reason for Visit * Reason Onset Date Comments Pre Cert/Prior Auth 08/03/2024 Xultophy 100 -3.6 Encounter Details Date Type Department Care Team (Late st Contact Info) Description 08/03/2024 Telephone Family Practice 65 [facility] [address] [place] [address] Javy Moscoso DO [address] [place] [address] Pre Cert/Prior Auth (Xultophy 100-3.6) Allergies Active Allergy Reactions Criticality Noted Date Comments Lisinopril Unknown Low 11/15/2022 Verapamil Medium 06/26/2020 Heart Block documented as of this encounter (statuses as of 08/03/2024) Medications CPAP every night at bedtime. Active Acetaminophen 500 MG Oral Tablet (Tylenol) Take 1 to 2 tablets by mouth every 6 hours as needed 2 Active SightCine Ultra 2 w/Device Kit USE DIRECTED TO TEST BLOOD SUGARS 1 Each 09/09/2023 11:01 AM EST 4 Active Pen Redig 31G X 5 MMIndications:Typ e 2 diabetes [...] every 10 days. E11.9 Active Dexcom G7 Nurses Supervisor Device Use as directed. Use as [...] 4 Active Repaglinide 0.5 MG Oral Tablet (Prandin)Indicati ons:Type 2 diabetes mellitus with stage 3b chronic kidney disease, with long-term current use of insulin (HCC) Take 1 tablet by mouth with evening meal. 90 Tablet 3 04/28/2024 10:27 AM EDT 4 Active Gabapentin 300 MG Oral Capsule [...] 4 Active Vitamin D (Ergocalciferol) 1.25 MG (75558 UT) Oral Capsule (Drisdol)Indicati ons:Vitamin D deficiency [...] skin daily per titration chart from [facility] clinic. 45 mL 3 4 Active [...] (HCC) Taper and transition to Xultophy per [facility] titration chart. 4 Active Arexvy 120 MCG/0.5ML Intramuscular Suspension Reconstituted (RSV PreF3 Vac Recomb Adjuvanted) Inject 0.5 mL into a large muscle once for 1 dose. 1 Each 08/03/2024 10:06 AM EST 4 024 Active Hospital, Clinic, or Other Facility Administered [...] 12/07/2022 Bilateral impacted cerumen 10/22/2022 Atherosclerosis of [place] co ronary artery without angina pectoris 07/15/2022 [...] mRNA, LNP-s, No Pre serve, 2-Dose Series (RidePal) 07/03/2021,12/27/2020,12/06/2020 COVID-19, MRNA-LNP, PF, 30 M CG/0.3 mL, 12 YRS AND ABOVE, IM (PFIZER-Comirnaty) 05/22/2024,02/22/2024,06/16/2023 Pneumococcal Conjugate Vacci ne, 20-valent ([id number]) 12/07/2022 Pneumococcal Polysaccharide PPV23 (Pneumovax) 09/08/2020 RSV [...] Smoking Tobacco: Former Cigarettes 1 20 1 97 - 1994 Passive Smoke Exposure: Past [...] encounter Miscellaneous Notes * Telephone Encounter - Mirtha Novak RPh - 08/03/2024 4:46 PM EST Completed and faxed to [place] to get Dr. Moscoso's signature and fax to [place]. Mirtha López, Pharm D, BCACP Clinical Pharmacist [address] [place] [facility] 08/03/2024, 4:47 PM Ph. [phone] * Telephone Encounter - Nhung Jose CCMA - 08/03/2024 2:11 PM EST Form was received by [facility]. * Telephone Encounter - Jia Gallagher OSA - 08/03/2024 1:47 PM EST Faxed to [facility]. * Telephone Encounter - Mirtha Novak RPh - 08/03/2024 1:20 PM EST Sent FYI to [facility] to watch for the PA form and fax to [place] - [phone] Mirtha López, Pharm D, PSYCHIATRIC Clinical Pharmacist [address] - [facility] 08/03/2024, 1:20 PM Ph. [phone] * Telephone Encounter - Neptali Morel CPhT - 08/03/2024 11:18 AM EST [facility] contacted at phone: [phone], They will be faxing over [place] forms to [phone] Please fill out and fax back when possible Thank you, Jian Morel ([facility]) Director Of Rehabilitative Services III [facility] ([facility]) 08/03/2024, 11:18 AM * Telephone Encounter - Janette Carroll CPhT - 08/03/2024 10:08 AM EST Pharmacy calling to inform doctor that the patient's insurance will not pay for this medication without a completed prior authorization. Did confirm this information with the pharmacy. Pt's current insurance information is as follows: Patient name: Walker Mancini ID number: [id number] BIN number: [id number] PCN number: [id number] Group number: [id number] Subscriber name: Walker Mancini Primary or Secondary Insurance:Secondary Medication: Xultophy 100-3.6 Reason for Request: plan limitations exceeded Pharmacy and phone number: [facility] [phone] Rx plan and phone number: jonathon [phone] Is this a new medication for the patient? Yes What alternative medications does the pharmacy have in stock?: none Thank you, Janette Carroll CphT Director Of Rehabilitative Services III [facility]) 08/03/24 documented in this encounter Plan of Treatment Upcoming Encounters Date Type Department Care Team (Late st Contact Info) Description 08/08/2024 2:00 PM EST Hem/Onc Treatment Hematology/Oncology Treatment, [place] 200 [facility] [place] [phone] Margarita, Chair 7 Hem Onc [address] [place] [address] 08/21/2024 3:50 PM EST Telemedicine Family Practice [address] [place] [phone] College, Pharmacist [address] [address] 09/07/2024 8:40 AM EST Office Visit Family Practice [address] [place] [address] [place] [address] [place] [address] Javy Moscoso DO [address] [place] [address] 09/14/2024 11:30 AM EST Office Visit Hematology/Oncology [facility] [place] 200 [facility] [place] [phone] Katt Mullen CRNP 400 [facility] [place] [address] 09/28/2024 8:00 AM EST Office Visit Family Practice 65 [facility] 293 [facility] [place] [address] College, Pharmacist [address] [place] [address], [place] [address] 10/03/2024 11:00 AM EST Nurse Only Family Practice 65 [facility] [address] [place] [address] Mary Ellen Sorenson, JOAQUIN 293 [place] [address] 11/30/2024 9:30 AM EDT Office Visit Gastroenterology, [facility] 132 [facility] [place] [address] Teddy Mullen CRNP 132 [facility] [place] [address] 02/15/2025 10:00 AM EDT Office Visit Sleep Disorders [facility] 132 [place] [phone] Debby Cornejo DO 132 [facility] [address] 04/10/2025 10:40 AM EDT Office Visit Nephrology, [facility] [address] [place] [address] Augusto Lerner MD [address] [place] [address] Scheduled Procedures Name Priority Associated Diagnoses Date/Ti me COLONOSCOPY FLEXIBLE PROXIMA L DIAGNOSTIC Recall History of colonic polyps Health Maintenance Due Date Last Done Comments Cologuard 01/12/1997 Sigmoidoscopy 01/12/1997 Fecal Occult Blood Test 11/18/2023 11/18/19 23, 11/17/2022, 03/16/2022, Additional history exists CKD PHOS USE SMARTSET 61420 05/05/2024 09/0 02/2023, 02/02/2023, 01/11/2022, Additional history [...] COPD 05/03/2025 05/03/2024 CKD HGB USE SMARTSET 91207 07/19/202507/19, 07/19/2024, 06/18/2024, Additional history exists DTap/Tdap [...] Power of Attor kwabena? No Care Teams Cloth Carrier Relationship Specialty Start Date End Date Javy Moscoso DO [address] [place] [address] PCP - General Family Medicine 07/04/23 documented as of this encounter
--- OUTSIDE RECORDS SUMMARY | 2024-11-03 09:41 | External Medical Summary | Summary of Care ---
Author Name Unknown Organization [facility] Address [address] [place] [address] Phone [phone] Care Team Providers Care Correction Officer [place] [facility] Name Role Phone Javy Moscoso DO Primary Care Provider [phone] Reason for Visit * Reason Onset Date Comments Pre Cert/Prior Auth 08/03/2024 Xultophy 100 -3.6 Encounter Details Date Type Department Care Team (Late st Contact Info) Description 08/03/2024 Telephone Family Practice 65 [facility] [address] [place] [address] Javy Moscoso DO [address] [place] [address] Pre Cert/Prior Auth (Xultophy 100-3.6) Allergies Active Allergy Reactions Criticality Noted Date Comments Lisinopril Unknown Low 11/15/2022 Verapamil Medium 06/26/2020 Heart Block documented as of this encounter (statuses as of 08/03/2024) Medications CPAP every night at bedtime. Active Acetaminophen 500 MG Oral Tablet (Tylenol) Take 1 to 2 tablets by mouth every 6 hours as needed 2 Active Wondershake Ultra 2 w/Device Kit USE DIRECTED TO TEST BLOOD SUGARS 1 Each 09/09/2023 11:01 AM EST 4 Active Pen [place] 31G X 5 MMIndications:Typ e 2 diabetes [...] every 10 days. E11.9 Active Dexcom G7 Parking Control Officer Device Use as directed. Use as [...] 4 Active Vitamin D (Ergocalciferol) 1.25 MG (23018 UT) Oral Capsule (Drisdol)Indicati ons:Vitamin D deficiency [...] skin daily per titration chart from [facility] clinic. 45 mL 3 4 [...] (HCC) Taper and transition to Xultophy per [facility] titration chart. 4 Active Arexvy 120 MCG/0.5ML [...] impacted cerumen 10/22/2022 Atherosclerosis of [place] ronary artery without angina pectoris 07/15/2022 [...] mRNA, LNP-s, No Pre serve, 2-Dose Series (WEMS) 07/03/2021,12/27/2020,12/06/2020 COVID-19, MRNA-LNP, PF, 30 M CG/0.3 mL, 12 YRS AND ABOVE, IM (PFIZER-Comirnaty) 05/22/2024,02/22/2024,06/16/2023 Pneumococcal Conjugate Vacci ne, 20-valent ([id number]) 12/07/2022 Pneumococcal Polysaccharide PPV23 (Pneumovax) 09/08/2020 RSV [...] 2:11 PM EST Form was received by [facility]. * Telephone Encounter - Jia Gallagher OSA - 08/03/2024 1:47 PM EST Faxed to [facility]. * Telephone Encounter - Mirtha Novak [facility] - 08/03/2024 1:20 PM EST Sent FYI to [facility] to watch for the PA form and fax to [place] [place] - [phone] Mirtha López, Pharm D, [facility] Clinical Pharmacist [address] - [facility] 08/03/2024, 1:20 PM Ph. [phone] * Telephone Encounter - Neptali Morel CPhT - 08/03/2024 11:18 AM EST PACE contacted at phone: [phone], They will be faxing over PA forms to [phone] Please fill out and fax back when possible Thank you, Jian Morel (Johana) Novelties Sales Representative III [facility] ([facility]) 08/03/2024, 11:18 AM * Telephone Encounter - Janette Carroll CPhT - 08/03/2024 10:08 AM EST Pharmacy calling to inform doctor that the patient's insurance will not pay for this medication without a completed prior authorization. Did confirm this information with the pharmacy. Pt's current insurance information is as follows: Patient name: Walker Mancini ID number: [id number] BIN number: [id number] PCN number: [id number] Group number: [id number] Subscriber name: Walker Mancini Primary or Secondary Insurance:Secondary Medication: Xultophy 100-3.6 Reason for Request: plan limitations exceeded Pharmacy and phone number: [facility] [phone] Rx plan and phone number: pace [phone] Is this a new medication for the patient? Yes What alternative medications does the pharmacy have in stock?: none Thank you, Janette Carroll CphT Novelties Sales Representative III [facility]) 08/03/24 documented in this encounter Plan of Treatment Upcoming Encounters Date Type Department Care Team (Late st Contact Info) Description 08/08/2024 2:00 PM EST Hem/Onc Treatment Hematology/Oncology Treatment, [place] [address] [facility] [address] [place], [place] [phone] Margariat, Chair 7 Hem Onc Scenery [address] [facility] [place] [address] 08/21/2024 3:50 PM EST Telemedicine Family Practice [address] [place] [address] [facility], [place] [phone] [place], Pharmacist [address] [place] [address] 09/07/2024 8:40 AM EST Office Visit Family Practice [address] [place] [address] [address] [place] [phone] Javy Moscoso DO [address] [place] [phone] 09/14/2024 11:30 AM EST Office Visit Hematology/Oncology [facility] [place] [address] [facility] [place], [place] [phone] Katt Mullen CRNP [address] [facility] [place] [address] 09/28/2024 8:00 AM EST Office Visit Family Practice [address] [place] [address] [facility], [place] [phone] College, Pharmacist [address], [place] [address] 10/03/2024 11:00 AM EST Nurse Only Family Practice [address] [place] [address] [place] [address] [place] [phone] Mary Ellen Sorenson, JOAQUIN 293 [facility], [place] [address] 11/30/2024 9:30 AM EDT Office Visit Gastroenterology, [facility] [address] [place] [address] Teddy Mullen CRNP [address] [place] [address] 02/15/2025 10:00 AM EDT Office Visit Sleep Disorders Ctr [facility] [address] [place] [phone] Debby Cornejo DO [address] [place] [address] 04/10/2025 10:40 AM EDT Office Visit Nephrology, [facility] [address] [facility] [place] [address] Augusto Lerner MD [address] [facility] [place] [address] Scheduled Procedures Name Priority Associated Diagnoses Date/Ti me COLONOSCOPY FLEXIBLE PROXIMA L DIAGNOSTIC Recall History of colonic polyps Health Maintenance Due Date Last Done Comments Cologuard 01/12/1997 Sigmoidoscopy 01/12/1997 Fecal Occult Blood Test 11/18/2023 11/18/19 23, 11/17/2022, 03/16/2022, Additional history exists CKD PHOS USE SMARTSET 02053 05/05/2024 09/0 02/2023, 02/02/2023, 01/11/2022, Additional history [...] COPD 05/03/2025 05/03/2024 CKD HGB USE SMARTSET 44483 07/19/202507/19, 07/19/2024, 06/18/2024, Additional history exists DTap/Tdap [...] Power of Attor kwabena? No Care Teams Correction Officer [place] [facility] Relationship Specialty Start Date End Date Javy Moscoso DO [address] [place] [phone] PCP - General Family Medicine 07/04/23 documented as of this encounter
--- OUTSIDE RECORDS SUMMARY | 2024-11-03 09:41 | External Medical Summary ---
Author Name Unknown Address Unknown Organization K01:LABORATORY [facility] - [address] [facility] [address] Laboratory Report Ordering Provider Test Date Status [place] ADEN 08/03/2024 09:16:32 Final Observation Date Value Abnormality Reference (Units ) Status HbA1C 08/03/2024 09:16:32 6.9 Above high normal 4. 0-5.6 (%) Final The use of HbA1c to monitor glycemic status is based on normal hemoglobin and HbA composition. This test should not be used in patients with abnormal hemoglobin that affects the half life of the red blood cell or the in vivo glycation rates. Glucose, estimated average 08/03/2024 09:16:32 151 Above high normal <126 (mg/dL) Adan vences Performing Location LABORATORY [facility] - [address] [facility] [address]
--- OUTSIDE RECORDS SUMMARY | 2024-11-03 09:41 | External Medical Summary | Summary of Care ---
Author Name Unknown Organization [facility] Address [address] [place] [address] Phone [phone] Care Team Providers Care Plumber Pipe Fitting Name Role Phone Javy Moscoso DO Primary Care Provider [phone] Reason for Visit * Reason Onset Date Comments Immunization RSV Vaccine 08/03/2024 Immunizations 08/03/2024 Shingrix Dosage Adjustment In Person (Anticoag Clinic) Diabetes Follow-Up Encounter Details Date Type Department Care Team (Late st Contact Info) Description 08/03/2024 8:00 AM EST Office Visit Family Practice [address] [address] College, Pharmacist [address] [address] Type 2 diabetes mellitus with hyperglycemia, with [...] 6 hours as needed 03/09/20 22 Active Seamless Receipts Ultra 2 w/Device Kit USE DIRECTED TO TEST BLOOD SUGARS 1 Each 4 11:01 AM EST 09/08/19 24 Active Pen [place] 31G X 5 MMIndications:Typ e 2 diabetes [...] every 10 days. E11.9 Active Dexcom G7 Patient Care Specialist Device Use as directed. Use as directed to monitor blood sugars daily Active Gregory Environmental In Vitro Strip (Glucose Blood)Indications :Type 2 [...] 4 8:50 AM EST 04/16/20 24 Active Gabapentin 300 [...] 24 Active Vitamin D (Ergocalciferol) 1.25 MG (53249 UT) Oral Capsule (Drisdol)Indicati ons:Vitamin D deficiency [...] the skin daily per titration chart from [facility] clinic. 45 mL 3 08/03/20 24 Active [...] (HCC) Taper and transition to Xultophy per [facility] titration chart. 08/03/20 24 Active Arexvy 120 MCG/0.5ML Intramuscular Suspension Reconstituted (RSV PreF3 Vac Recomb Adjuvanted) Inject 0.5 mL into a large muscle once for 1 dose. 1 Each 4 10:06 AM EST 08/03/20 24 024 Active Repaglinide 0.5 MG Oral Tablet (Prandin)Indicati ons:Type 2 diabetes mellitus with stage 3b chronic kidney disease, with long-term current use of insulin (HCC) Take 1 tablet by mouth with evening meal. 90 Tablet 3 4 10:27 AM EDT 04/19/20 24 024 Discontin ued(Medic ation/Dos e Changed) Insulin Glargine Solostar 100 UNIT/ML Subcutaneous [...] 12/07/2022 Bilateral impacted cerumen 10/22/2022 Atherosclerosis of [place] co ronary artery without angina pectoris 07/15/2022 [...] mRNA, LNP-s, No Pre serve, 2-Dose Series ([employer]) 07/03/2021,12/27/2020,12/06/2020 COVID-19, MRNA-LNP, PF, 30 M CG/0.3 mL, 12 YRS AND ABOVE, IM (PFIZER-Comirnaty) 05/22/2024,02/22/2024,06/16/2023 Pneumococcal Conjugate Vacci ne, 20-valent ([id number]) 12/07/2022 Pneumococcal Polysaccharide PPV23 (Pneumovax) 09/08/2020 RSV [...] this encounter Patient Instructions * Patient Instructions* Karla Li RPh - 08/03/2024 8:54 AM EST [...] documented in this encounter Progress Notes * Karla Li RPh - 08/03/2024 8:04 AM EST [...] G7 sensors yesterday. Brought in the dexcom irish moss operator to obtain reading. Hypoglycemia: Does your blood [...] Topic Date Due CKD PHOS USE SMARTSET 08291 05/05/2024 Diabetic Foot Exam 06/16/2024 Albumin/Creatinine Ratio [...] below. Pt agreeable to plan and notify [facility] clinic if experiencing any side effects or [...] MEDICATION CHANGES: yes, see below; preferred pharmacy: [facility] ([facility]) Diabetic Medications: STOP Lantus [...] and documentation of the care provided to Wakler Mancini excluding any time spent in theperformance [...] prescription/drug coverage. Patient has been informed that [employer] copays are close to $0. In most cases copays will be around $10. The maximum co-pay patients may get could as high as $200. yes Shingrix Vaccine Information Sheet has been provided. Karla Li RPh 08/03/2024 8:55 AM IMMUNIZATION ADMINISTRATION [...] received the Shingrix VIS (Vaccine Information Sheet). Karla Li RPh, 08/03/2024, 8:55 AM Karla Li PharmD, AP PGY1 Hand Candy Molder Medication Therapy Management Clinics [place] 08/03/2024 10:02 AM documented in this encounter Miscellaneous Notes * Addendum Note - Karla Li RPh - 08/03/2024 7:17 PM ESTAddended by: KARLA LI on: 08/03/2024 07:17 PM Modules accepted: Orders documented in this encounter Plan of Treatment Upcoming Encounters Date Type Department Care Team (Late st Contact Info) Description 08/08/2024 2:00 PM EST Hem/Onc Treatment Hematology/Oncology Treatment, [place] [address] [place], [place] [phone] Margarita, Chair 7 Hem Onc Scenery 200 [facility] [place], [place] [address] 08/21/2024 3:50 PM EST Telemedicine Family Practice [address] [place] [address] 293 [facility], [place] [phone] College, Pharmacist [address], [place] [address] 09/07/2024 8:40 AM EST Office Visit Family Practice [address] [place] [address] [address] [place] [place] [phone] Javy Moscoso DO [address] [place] [place] [address] 09/14/2024 11:30 AM EST Office Visit Hematology/Oncology [facility] [place] [address] [facility], [place] [phone] Katt Mullen CRNP [address] [facility] [address] 09/28/2024 8:00 AM EST Office Visit Family Practice [address] [place] [address] 293 [facility], [place] [phone] College, Pharmacist [address], [place] [address] 10/03/2024 11:00 AM EST Nurse Only Family Practice [address] [place] [address] [address] [place] [phone] Mary Ellen Sorenson, JOAQUIN 293 [facility] [phone] 11/30/2024 9:30 AM EDT Office Visit Gastroenterology, [facility] [address] [place] [address] Teddy Mullen CRNP [address] [place] [address] 02/15/2025 10:00 AM EDT Office Visit Sleep Disorders Ctr [facility] [address] [place] [phone] Debby Cornejo DO [address] [place] [address] 04/10/2025 10:40 AM EDT Office Visit Nephrology, [facility] [address] [facility] [place] [address] Augusto Lerner MD [address] [facility] [place] [address] Scheduled Procedures Name Priority Associated Diagnoses Date/Ti me COLONOSCOPY FLEXIBLE PROXIMA L DIAGNOSTIC Recall History of colonic polyps Health Maintenance Due Date Last Done Comments Cologuard 01/12/1997 Sigmoidoscopy 01/12/1997 Fecal Occult Blood Test 11/18/2023 11/18/19 23, 11/17/2022, 03/16/2022, Additional history exists CKD PHOS USE SMARTSET 01854 05/05/2024 09/0 02/2023, 02/02/2023, 01/11/2022, Additional history exists Diabetic Foot Exam 06/16/2024 06/16/2023, 06/16/2023 Albumin/Creatinine Ratio 09/09/2024 09/09/2023, 11/11/2021 Adult Wellness Visit 09/28/2024 09/28/2023 GFR 12/17/2024 06/18/2024, 03/30, 03/09/2024, Additional history exists Depression Screening 12/21/2024 12/22/2023 HbA1c 02/01/2025 08/03/2024, 03/30, 12/15/2023, Additional history exists Diabetic Eye Exam 03/06/2025 03/06/2024, , 08/24/2023, Additional history exists Colonoscopy 05/03/2025 05/03/2024, 12/2023, 12/10/2022, Additional history exists Colorectal Cancer Screening 05/03/2025 O2 ASSESSMENT COMPLETED IN PAST YEAR FOR COPD 05/03/2025 05/03/2024 CKD HGB USE SMARTSET 85477 07/19/202507/19, 07/19/2024, 06/18/2024, Additional history exists DTap/Tdap [...] Procedure Name Priority Date/Time Associated Diagnosis Comments HEMOGLOBIN A1C Routine 08/03/2024 9:16 AM EST Type 2 diabetes mellitus with stage 3b chronic kidney disease, with long-term current use of insulin (HCC) documented in this encounter Results * (ABNORMAL) HEMOGLOBIN A1C (08/03/2024 9:16 AM EST) Hemoglobin A1C 6.9(H) 4.0 - 5.6 % 08/03/2024 2:47 PM EST LABORATORY [facility] Comment:The use of HbA1c to monitor glycemic status is based on normal hemoglobin and HbA composition. This test should not be used in patients with abnormal hemoglobin that affects the half life of the red blood cell or the in vivo glycation rates. Estimated Average Glucose 151(H) <126 mg/dL 08/03/2024 2:47 PM EST LABORATORY [facility] Blood Venous blood specimen / Unknown Venipuncture / Unknown 08/03/2024 9:16 AM EST 08/03/2024 9:16 AM EST Javy Moscoso DO LAB BLOOD ORDERABLES Final R esult LABORATORY [facility] [address] [place] [facility] [place] [address] documented in this encounter Visit Diagnoses Diagnosis Type 2 [...] Power of Attor kwabena? No Care Teams Plumber Pipe Fitting Relationship Specialty Start Date End Date Javy Moscoso DO [address] [place] [address] PCP - General Family Medicine 07/04/23 documented as of this encounter
--- OUTSIDE RECORDS SUMMARY | 2024-11-03 09:42 | External Medical Summary | Summary of Care ---
Author Name Unknown Organization [facility] Address [address] [place] [address] Phone [phone] Care Team Providers Care Maintenance Service Technician Name Role Phone DanisJavy Primary Care Provider [phone] Reason for Visit * Reason Onset Date Comments Test Results Lab 07/20/2024 Encounter Details Date Type Department Care Team (Late st Contact Info) Description 07/20/2024 Telephone Hematology/Oncology [facility] 200 [facility] [place] [address] Katt Mullen CRNP 400 [place] [address] Test Results Lab Allergies Active Allergy Reactions Criticality Noted Date Comments Lisinopril Unknown Low 11/15/2022 Verapamil Medium 06/26/2020 Heart Block documented as of this encounter (statuses as of 07/20/2024) Medications CPAP every night at bedtime. Active Acetaminophen 500 MG Oral Tablet (Tylenol) Take 1 to 2 tablets by mouth every 6 hours as needed 2 Active AgenTecuch Ultra 2 w/Device Kit USE DIRECTED TO TEST BLOOD SUGARS 1 Each 09/09/2023 11:01 AM EST 4 Active Pen [place] 31G X 5 MMIndications:Typ e 2 diabetes mellitus with hyperglycemia, with long-term current use of insulin (HCC) Use as directed. Use as directed with glargine insulin once daily 100 Each 3 06/01/2024 6:56 PM EDT 4 Active Torsemide 20 MG Oral Tablet (Demadex)Indicati ons:HTN, goal below 140/90 TAKE ONE TABLET BY MOUTH EVERY MORNING 90 Tablet 3 04/19/2024 8:56 AM EDT 4 11/02/19 25 Active Vitamin B-12 2500 MCG Sublingual Tablet Sublingual Place 1 Tablet under the tongue in the morning. Active Dexcom G7 Sensor Use as directed. Use as directed to monitor blood sugars daily. Replace sensor every 10 days. E11.9 Active Dexcom G7 Typewriter Assembler Device Use as directed. Use as [...] 4 Active Vitamin D (Ergocalciferol) 1.25 MG (34393 UT) Oral Capsule (Drisdol)Indicati ons:Vitamin D deficiency [...] 3 07/17/2024 4:00 PM EST 4 Active Empagliflozin 25 MG Oral Tablet (Jardiance)Indica [...] solution 2.5 mgIndications:ILD (interstitial lung disease) ([facility]),BEARDEN (dyspnea on exertion) 2.5 mg NEBULIZER Q4H PRN 12/12/2023 Act jose documented as of this encounter (statuses as of 07/20/2024) Active Problems Problem Noted Date Diagnosed Date [...] as of this encounter (statuses as of 07/20/2024) Resolved Problems Problem Noted Date Diagnosed Date [...] as of this encounter (statuses as of 07/20/2024) Immunizations Name Administration Dates Next Due COVID-19 mRNA, LNP-s, No Pre serve, 2-Dose Series (Pfizer) 07/03/2021,12/27/2020,12/06/2020 COVID-19, MRNA-LNP, PF, 30 M CG/0.3 mL, 12 YRS AND ABOVE, IM (PFIZER-Comirnaty) 05/22/2024,02/22/2024,06/16/2023 Pneumococcal Conjugate Vacci ne, 20-valent ([id number]) 12/07/2022 Pneumococcal Polysaccharide PPV23 (Pneumovax) 09/08/2020 Season [...] Telephone Encounter - Renetta Dukes RN - 07/20/2024 4:21 PM EST PFC review still pending. * Telephone Encounter - Joseluis Barker OSA - 07/20/2024 3:22 PM EST VM full - unable to LMOM - MyG Sent * Telephone Encounter - Nhung Gutiérrez LPN - 07/20/2024 2:29 PM EST Scheduling: Please contact patient to schedule, "Monoferric 08/29", [place], 2-hour infusion Thank you!! * Telephone Encounter - Nhung Gutiérrez LPN - 07/20/2024 2:29 PM EST [place] plan signed and Referral entered * Telephone Encounter - Nhung Gutiérrez LPN - 07/20/2024 10:23 AM EST Called and spoke with patient's , Cyndi. Informed her of test result message from provider below. She verbalized understanding. She states the patient will be agreeable to receiving the infusion.She will await call from our office to schedule once the prior authorization is completed. * Telephone Encounter - Nhung Gutiérrez LPN - 07/20/2024 10:20 AM EST Order received for Monoferric [place] plan built and routed to provider Awaiting prior authorization before scheduling patient. * Telephone Encounter - Katt Mullen, [place] - 07/20/2024 8:59 AM EST Results for orders placed or performed in visit on 07/19/24 IRON SCREEN, INCLUDING TIBC Result Value Ref Range Iron 32 (L) 45 - 176 ug/dL Iron Binding Capacity 342 250 - 425 ug/dL Transferrin Saturation Percent 9 (L) 15 - 55 % FERRITIN Result Value Ref Range Ferritin 48 30 - 400 ng/mL CBC Result Value Ref Range WBC 5.28 4.00 - 10.80 K/uL RBC 4.55 4.50 - 5.25 M/uL HGB 13.5 (L) 14.0 - 16.8 g/dL HCT 44.1 40.0 - 48.4 % MCV 96.9 82.0 - 99.5 fL MCH 29.7 27.0 - 34.0 pg MCHC 30.6 32.0 - 36.0 g/dL RDW 14.1 11.5 - 15.5 % PLT 117 (L) 140 - 400 K/uL MPV 13.9 6.6 - 11.1 fL nRBCs 0 <=0 /100 WBCs DIFFERENTIAL, AUTOMATED Result Value Ref Range WBC 5.28 4.00 - 10.80 K/uL Neutrophils % 63.5 40.0 - 75.0 % Lymphocytes % 22.0 18.0 - 42.0 % Monocytes % 10.4 1.0 - 11.0 % Eosinophils % 2.8 0.0 - 6.0 % Basophils % 1.1 0.0 - 2.0 % Immature Granulocytes % 0.2 0.0 - 2.0 % Absolute Neutrophils 3.35 1.80 - 7.70 K/uL Absolute Lymphocytes 1.16 1.00 - 4.80 K/ul Absolute Monocytes 0.55 0.00 - 1.10 K/uL Absolute Eosinophils 0.15 0.00 - 0.70 K/uL Absolute Basophils 0.06 0.00 - 0.20 K/uL Absolute Immature Granulocytes 0.01 0.00 - 0.20 K/uL *Note: Due to a large number of results and/or encounters for the requested time period, some results have not been displayed. A complete set of results can be found in Results Review. Worsening iron deficiency noted. Order placed for IV Monoferric 1,000 mg as a single dose. Continuewith monthly lab monitoring. Please make patient aware and assist with scheduling if agreeable. Keep f/u appointment scheduled for August. documented in this encounter Plan of Treatment Upcoming Encounters Date Type Department Care Team (Late st Contact Info) Description 07/24/2024 2:00 PM EST Office Visit Nephrology, [facility] 200 [facility] [place] [address] Augusto Lerner MD 200 [facility] [place] [address] 07/30/2024 8:50 AM EST Office Visit Family Practice [address] [place] [address] 293 [facility] [place] [phone] College, Pharmacist [address] [place] [address] 09/07/2024 8:40 AM EST Office Visit Family Practice [address] [place] [address] [place] [address] [place] [address] Javy Moscoso DO [address] [place] [address] 09/14/2024 11:30 AM EST Office Visit Hematology/Oncology [facility] 200 [facility] [place] [phone] Katt Mullen CRNP 400 [facility] [place] [address] 10/03/2024 11:00 AM EST Nurse Only Family Practice [facility] [place] [address] [place] [address] Mary Ellen Sorenson RN 293 [place] [phone] 02/15/2025 10:00 AM EDT Office Visit Sleep Disorders Ctr [facility] [address] [place] [address] Debby Cornejo, [address] [place] [address] Scheduled Procedures Name Priority Associated Diagnoses Date/Ti me COLONOSCOPY FLEXIBLE PROXIMA L DIAGNOSTIC Recall History of colonic polyps Health Maintenance Due Date Last Done Comments Cologuard 01/12/1997 Sigmoidoscopy 01/12/1997 Fecal Occult Blood Test 11/18/2023 11/18/19 23, 11/17/2022, 03/16/2022, Additional history exists CKD PHOS USE SMARTSET 69754 05/05/2024 09/0 02/2023, 02/02/2023, 01/11/2022, Additional history [...] COPD 05/03/2025 05/03/2024 CKD HGB USE SMARTSET 36180 07/19/202507/19, 07/19/2024, 06/18/2024, Additional history exists DTap/Tdap [...] Power of Attor kwabena? No Care Teams Maintenance Service Technician Relationship Specialty Start Date End Date Javy Moscoso DO [address] [place] [address] PCP - General Family Medicine 07/04/23 documented as of this encounter
--- OUTSIDE RECORDS SUMMARY | 2024-11-03 09:42 | External Medical Summary | Summary of Care ---
Author Name Unknown Organization [facility] Address [address] [place] [address] Phone [phone] Care Team Providers Care Dining Host Name Role Phone Javy Moscoso DO Primary Care Provider + [phone] Reason for Visit * Reason Comments Return Visit Chronic Kidney Disease (CKD) Hypertension DM Encounter Details Date Type Department Care Team (Late st Contact Info) Description 07/24/2024 2:00 PM EST Office Visit Nephrology, [address] [place] [address] Augusto Lerner MD 200 [facility] [place] [address] Stage 3b chronic kidney disease (HCC)* Allergies Active Allergy Reactions Criticality Noted Date Comments Lisinopril Unknown Low 11/15/2022 Verapamil Medium 06/26/2020 Heart Block documented as of this encounter (statuses as of 07/25/2024) Medications CPAP every night at bedtime. Active Acetaminophen 500 MG Oral Tablet (Tylenol) Take 1 to 2 tablets by mouth every 6 hours as needed 2 Active Vertex PharmaceuticalsTouch Ultra 2 w/Device Kit USE DIRECTED TO TEST BLOOD SUGARS 1 Each 09/09/2023 11:01 AM EST 4 Active Pen [place] 31G X 5 MMIndications:Ty pe 2 diabetes [...] every 10 days. E11.9 Active Dexcom G7 Environmental Epidemiologist Device Use as directed. Use as directed [...] 4 Active Vitamin D (Ergocalciferol) 1.25 MG (68179 UT) Oral Capsule (Drisdol)Indicat ions:Vitamin D deficiency [...] inhalation solution 2.5 mgIndications:ILD (interstitial lung disease) ([facility]),BEARDEN (dyspnea on exertion) 2.5 mg NEBULIZER Q4H PRN 12/12/2023 Act jose documented as of this encounter (statuses as of 07/25/2024) Active Problems Problem Noted Date Diagnosed Date [...] 12/07/2022 Bilateral impacted cerumen 10/22/2022 Atherosclerosis of [place] co ronary artery without angina pectoris 07/15/2022 [...] as of this encounter (statuses as of 07/25/2024) Resolved Problems Problem Noted Date Diagnosed Date [...] as of this encounter (statuses as of 07/25/2024) Immunizations Name Administration Dates Next Due COVID-19 mRNA, LNP-s, No Pre serve, 2-Dose Series (BeatDeck) 07/03/2021,12/27/2020,12/06/2020 COVID-19, MRNA-LNP, PF, 30 M CG/0.3 mL, 12 YRS AND ABOVE, IM (PFIZER-Comirnaty) 05/22/2024,02/22/2024,06/16/2023 Pneumococcal Conjugate Vacci ne, 20-valent ([id number]) 12/07/2022 Pneumococcal Polysaccharide PPV23 (Pneumovax) 09/08/2020 Season [...] Sign Reading Time Taken Comments Blood Pressure 112/73 07/24/2024 2:02 PM EST Pulse 60 07/24/2024 2:02 PM EST Temperature 36.7 C (98.1 F) 07/24/2024 2:02 PM ES T Respiratory Rate 20 07/24/2024 2:02 PM EST Oxygen Saturation 92% 07/24/2024 2:02 PM EST Inhaled Oxygen Concentration - - Weight 107.3 kg (236 lb 9.6 oz) 07/24/2024 2:02 PM EST Height - - Body Mass Index 33.95 05/03/2024 12:33 PM EDT documented in this [...] documented in this encounter Progress Notes * Augusto Lerner MD - 07/25/2024 2:31 PM EST REASON FOR CONSULT: CKD 3 HPI: Walker Mancini is a 74 year old male --type 2 diabetes for 3 yrs with recent A1c 9, obstructive sleep apnea, regular alcohol use, hypertension, hyperlipidemia, hypertensive heart disease and CKD stage 3 with baseline creatinine of 1.4--1.7. Patient had a creatinine of 1.5 in June 2018. [place] [facility] [place]ady[place], acute kidney injury with peak creatinine of2.7 and hyperkalemia. Bradycardia was secondary to heart block from verapamil. had hospital admission November 2022 for GI bleeding what his hemoglobin dropped down to 6 and he required 3 units of blood transfusion. Since last visit -------had another episode of severe GI bleed with a hemoglobin dropping to 6 and requiring blood transfusion for this she was admitted at [facility] on January 2024 for few days. 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 Since January hemoglobin has significantly gone up and is now 13.5 but his iron level was low and has been started on IV iron therapy by Hematology. Despite severe GI bleed renal function has remained stable with GFR around 45. He feels relatively good at this time. Edema and shortness of breath is better. Appetite is good. Review of Systems: General [...] 02/14/2019 Asthma COPD (chronic obstructive pulmonary disease) ([facility]) Hyperkalemia 02/14/2019 Lactic acidosis 02/14/2019 Respiratory acidosis 02/14/2019 Sleep apnea, obstructive Symptomatic bradycardia 02/14/2019 Past Surgical History: Procedure Laterality Date COLONOSCOPY, DIAGNOSTIC (RECTUM) 12/15/2020 Multi polyps, internal hemorrhoids / biopsy benign adenomatous polyps / 2 year recall / COLONOSCOPYFLEXIBLE PROXIMAL DIAGNOSTIC performed by Dnuia De La Vega MD at [facility] COLONOSCOPY, DIAGNOSTIC (RECTUM) 12/10/2022 benign adenomatous polyps & small neuroendocrine growth (carcinoid) in the rectum, repeat 1 yr / COLONOSCOPY FLEXIBLE PROXIMAL DIAGNOSTIC performed by Chase Reyes MD at [facility] COLONOSCOPY, DIAGNOSTIC (RECTUM) 05/03/2024 diverticulosis/hemorrhoids/biopsies show adenomatous polyps/recall 1 year/COLONOSCOPY FLEXIBLE PROXIMAL DIAGNOSTIC performed by Drew Flores MD at [facility] EGD, FLEXIBLE, DIAGNOSTIC N/A 03/17/2022 [facility], EGD z-line regular 41 cm from incisors, gastritis, otherwise normal / biopsies normal / EGD, FLEXIBLE, DIAGNOSTIC N/A 03/28/2023 single non-bleeding angioectasia jejunum, treated with APC/ESOPHAGOGASTRODUODENOSCOPY (EGD), FLEXIBLE, TRANSORAL, DIAGNOSTIC performed by Dominick Amador MD at [facility] EGD, FLEXIBLE, DIAGNOSTIC 05/03/2024 congestive gastropathy/ESOPHAGOGASTRODUODENOSCOPY (EGD), FLEXIBLE, TRANSORAL, DIAGNOSTIC performed by Drew Flores MD at [facility] INJECT DX/THER SUBSTANCE INTERLAMINAR LUMBAR/SACRAL W IMAGE GUIDE 09/08/2022 INJECTION SPINE LUMBAR OR SACRAL performed by Yon Lizarraga DO at [facility] SMALL BOWEL ENDOSCOPY DIAGNOSTIC N/A 05/06/2022 mild pseudomelanosis of stomach/few red spots, possible AVM's in mid jejunum/biopsies normal/SMALL INTESTINE ENDOSCOPY DIAGNOSTIC performed by Frederick Leija MD at [facility] SMALL BOWEL ENDOSCOPY DIAGNOSTIC 12/06/2022 normal / SMALL INTESTINE ENDOSCOPY DIAGNOSTIC performed by Dominick Amador MD at [facility] Review of patient's allergies indicates: Allergen Reactions Verapamil Heart Block Lisinopril Unknown Current Outpatient Medications Medication Sig Dispense Refill CPAP every night at bedtime. Acetaminophen 500 MG Oral Tablet (Tylenol) Take 1 to 2 tablets by mouth every 6 hours as needed Lively Ultra 2 w/Device Kit USE DIRECTED TO TEST BLOOD SUGARS 1 Each 0 Pen [place] 31G X 5 MM Use as directed. Use as directed with glargine insulin once daily 100 Each 3 Torsemide 20 MG Oral Tablet (Demadex) TAKE ONE TABLET BY MOUTH EVERY MORNING 90 Tablet 3 Vitamin B-12 2500 MCG Sublingual Tablet Sublingual Place 1 Tablet under the tongue in the morning. Dexcom G7 Sensor Use as directed. Use as directed to monitor blood sugars daily. Replace sensor every 10 days. E11.9 Dexcom G7 Environmental Epidemiologist Device Use as directed. Use as directed to monitor blood sugars daily Imperva In Vitro Strip (Glucose Blood) USE DIRECTED [...] BY MOUTH EVERY MORNING 90 Tablet 2 Losartan Potassium 100 MG Oral Tablet (Cozaar) Take 1 Tablet by mouth in the morning. 90 Tablet 1 Polyethylene Glycol 3350 17 GM/SCOOP Oral Powder (MiraLax) Take 17 g by mouth at bedtime. Octreotide Acetate 50 MCG/ML Subcutaneous Solution Prefilled Syringe Inject 50 mcg under the skin 2times a day. 60 mL 5 Repaglinide 0.5 MG Oral Tablet (Prandin) Take 1 tablet by mouth with evening meal. 90 Tablet 3 Insulin Glargine Solostar 100 UNIT/ML Subcutaneous Solution Pen-injector (Lantus SoloStar) Inject 45 Units under the skin at bedtime. 45 mL 3 Gabapentin 300 MG Oral Capsule (Neurontin) Take 1 Capsule by mouth in the morning. 90 Capsule 3 Gabapentin 600 MG Oral Tablet (Neurontin) Take 1 Tablet by mouth in the morning and 1 Tablet beforebedtime. Noon and night. tiZANidine HCl 2 MG Oral Tablet (Zanaflex) Take 1 Tablet by mouth at bedtime as needed for Muscle spasms. 90 Tablet 1 Vitamin D (Ergocalciferol) 1.25 MG (51297 UT) Oral Capsule (Drisdol) Take 1 Capsule [...] mouth in the morning. 90 Tablet 3 Docusate Sodium 100 MG Oral Capsule (Stool Softener) Take 1 Capsule by mouth in the morning and 1 Capsule before bedtime. (Patient not taking: Reported on 07/24/2024) Current Facility-Administered Medications Medication Dose Route Frequency Provider Last Rate Last Admin Albuterol Sulfate (Proventil) (2.5 MG/3ML) 0.083% inhalation solution 2.5 mg 2.5 mg Nebulizer Q4H PRN Iván Nielsen MD 2.5 mg at 01/25/24 0715 Family History No family history of kidney [...] file Gets together: Not on file Attends evangelical service: Not on file Active member of [...] Social History Narrative Not on file BP 112/73 (BP Site: Right Arm, BP Position: Sitting, BP Cuff Size: Large) | Pulse 60 | Temp 36.7 C (98.1 F) (Tympanic) | Resp 20 | Wt 107.3 kg (236 lb 9.6 oz) | SpO2 92% | BMI 33.95 kg/m | BSA 2.3 m PHYSICAL EXAM: GENERAL: Well-appearing, Alert, in [...] see A1c at least under 7.5% consistently. He has a achieve that with the last A1c of 5.7%. Blood pressure seems controlled and will continue current medication. Even the current creatinine of 1.6 and GFR of 45 is abnormal Renal prognosis is fairly good. Recentblood work done was reviewed with the patient and shows stable kidney function. No evidence of fluid overload and does not need any further diuretics. But will continue the current dose of torsemide 20 daily. GFR 45 creatinine 1.6. Hemoglobin was also good at 13.5. He is getting IV iron through Hematology. His iron store frequently drops and he gets IV iron. So when he is not having GI bleed he does not really have anemia of CKD. Calcium and phosphorus as of now normal and no evidence of renal osteodystrophy yet. No need of labs today 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) Blood pressure is at goal. No longer has low blood pressure. Will continue current regimen which includes carvedilol 12.5 twice daily, losartan 100 daily torsemide 20 mg daily - NEPHROLOGY FOLLOW UP APPT (DEPARTMENT USE ONLY); Future; Expected date: 01/21/2025 I spent a total of 30-39 minutes (exact time 32 mins) on the date of service in preparation, delivery, and documentation of the care provided to Walker Mancini excluding any time spent in the performance of separately billed services or time spent by another provider/QHP. Augusto Lerner MD documented in this encounter Nursing Notes * Molly Kirkland LPN - 07/24/2024 1:58 PM EST Patient identified by verbal name and date of . Chief Complaint Patient presents with Return Visit Chronic Kidney Disease (CKD) Hypertension DM Pt was inpatient hospital [facility] 02/24/24 for GI bleed Pt had colonoscopy 05/03/24Pt will get iron infusion 07/30/24 Denies SOB or lower extremity edema Last labs 07/19/24 documented in this encounter Plan of Treatment Upcoming Encounters Date Type Department Care Team (Late st Contact Info) Description 07/30/2024 8:50 AM EST Office Visit Family Practice 65 [facility] 293 [facility], [place] [phone] College, Pharmacist [address] [place] [address] 07/30/2024 10:30 AM EST Hem[facility] 200 [facility] [place] [place] [phone] Margarita, Chair [address] [place] [address] 09/07/2024 8:40 AM EST Office Visit Family Practice 65 [facility] [address] [place] [address] Javy Moscoso DO [address] [place] [address] 09/14/2024 11:30 AM EST Office Visit Hematology/Oncology [facility] [address] [facility], [place] [phone] Katt Mullen CRNP 400 [facility] [place] [phone] 10/03/2024 11:00 AM EST Nurse Only Family Practice 65 [facility] [place] [address] [place] [address] Mary Ellen Sorenson, [place] 293 [facility], [place] [phone] 02/15/2025 10:00 AM EDT Office Visit Sleep Disorders Ctr [facility] [place] [address] [place] [address] [phone] Debby Cornejo, 132 [facility] [place] [address] 04/10/2025 10:40 AM EDT Office Visit Nephrology, [address] [place], [place] [address] Augusto Lerner MD [address] [address] Scheduled Procedures Name Priority Associated Diagnoses Date/Ti me COLONOSCOPY FLEXIBLE PROXIMA L DIAGNOSTIC Recall History of colonic polyps Health Maintenance Due Date Last Done Comments Cologuard 01/12/1997 Sigmoidoscopy 01/12/1997 Fecal Occult Blood Test 11/18/2023 11/18/19 23, 11/17/2022, 03/16/2022, Additional history exists CKD PHOS USE SMARTSET 26969 05/05/2024 09/0 02/2023, 02/02/2023, 01/11/2022, Additional history [...] COPD 05/03/2025 05/03/2024 CKD HGB USE SMARTSET 19466 07/19/202507/19, 07/19/2024, 06/18/2024, Additional history exists DTap/Tdap [...] Stage 3b chronic kidney disease (HCC)- Primary documented in this encounter Advance [...] Power of Attor kwabena? No Care Teams Dining Host Relationship Specialty Start Date End Date Javy Moscoso DO [address] [place] [phone] PCP - General Family Medicine 07/04/23 documented as of this encounter"
--- OUTSIDE RECORDS SUMMARY | 2024-11-03 09:42 | External Medical Summary | Summary of Care ---
Author Name Unknown Organization [facility] Address [address] [place] [address] Phone [phone] Care Team Providers Care Director Perioperative Name Role Phone Javy Moscoso DO Primary Care Provider + [phone] Encounter Details Date Type Department Care Team (Late st Contact Info) Description 07/27/2024 Telephone Hematology/Oncology [facility] [place] 200 [facility] [place] [address] Katt Mullen CRNP [address] [place] [address] Allergies Active Allergy Reactions Criticality Noted Date Comments Lisinopril Unknown Low 11/15/2022 Verapamil Medium 06/26/2020 Heart Block documented as of this encounter (statuses as of 07/27/2024) Medications CPAP every night at bedtime. Active Acetaminophen 500 MG Oral Tablet (Tylenol) Take 1 to 2 tablets by mouth every 6 hours as needed 2 Active OneTouch Ultra 2 w/Device Kit USE DIRECTED TO TEST BLOOD SUGARS 1 Each 09/09/2023 11:01 AM EST 4 Active Pen [place] 31G X 5 MMIndications:Ty pe 2 diabetes [...] every 10 days. E11.9 Active Dexcom G7 Vat Washer Device Use as directed. Use as directed to monitor blood sugars daily Active [employer] Ultra In Vitro Strip (Glucose Blood)Indication s:Type [...] 4 Active Vitamin D (Ergocalciferol) 1.25 MG (55376 UT) Oral Capsule (Drisdol)Indicat ions:Vitamin D deficiency [...] 2.5 mgIndications:ILD (interstitial lung disease) ([facility]),BEARDEN (dyspnea on exertion) 2.5 mg NEBULIZER Q4H PRN 12/12/2023 Act jose documented as of this encounter (statuses as of 07/27/2024) Active Problems Problem Noted Date Diagnosed Date [...] 12/07/2022 Bilateral impacted cerumen 10/22/2022 Atherosclerosis of [place] co ronary artery without angina pectoris 07/15/2022 [...] 11/17/2021 Dyslipidemia, goal LDL below 70 10/21/2021 UGS on CPAP 03/17/2021 Primary insomnia 03/17/2021 Stage 3a chronic kidney disease 01/06/2021 Overview: Per CKD protocol Spinal stenosis of lumbar re gion without neurogenic claudication 06/09/2020 Bilateral lumbar radiculopathy 06/09/2020 Bilateral leg edema 06/09/2020 Gastroesophageal reflux disease without esophagi tis 06/09/2020 Lyme disease 02/18/2019 documented as of this encounter (statuses as of 07/27/2024) Resolved Problems Problem Noted Date Diagnosed Date [...] as of this encounter (statuses as of 07/27/2024) Immunizations Name Administration Dates Next Due COVID-19 mRNA, LNP-s, No Pre serve, 2-Dose Series (Pfizer) 07/03/2021,12/27/2020,12/06/2020 COVID-19, MRNA-LNP, PF, 30 M CG/0.3 mL, 12 YRS AND ABOVE, IM (PFIZER-Comirnaty) 05/22/2024,02/22/2024,06/16/2023 Pneumococcal Conjugate Vacci ne, 20-valent ([id number]) 12/07/2022 Pneumococcal Polysaccharide PPV23 (Pneumovax) 09/08/2020 Season [...] 8:50 AM EST Office Visit Family Practice [address] [place] [address] [address] [place] [address] College, Pharmacist [address] [place] [address] 09/07/2024 8:40 AM EST Office Visit Family Practice [address] [place] [address] [place] [address] [place] [address] Javy Moscoso DO [address] [place] [phone] 09/14/2024 11:30 AM EST Office Visit [facility]ology[facility]On[facility] 200 [facility] [phone] Katt Mullen CRNP [address] [place], [place] [address] [phone] 10/03/2024 11:00 AM EST Nurse Only Family Practice [address], [place] [address] [place] [phone] Mary Ellen Sorenson, [place] [address] [place] [phone] 02/15/2025 10:00 AM EDT Office Visit [facility] Disorders Ctr [facility] [address] [place] [phone] Debby Cornejo DO [address] [place] [address] 04/10/2025 10:40 AM EDT Office Visit Nephrology, [facility] 200 [facility] [place] [address] Augusto Lerner MD [address] [place] [address] Scheduled Procedures Name Priority Associated Diagnoses Date/Ti me COLONOSCOPY FLEXIBLE PROXIMA L DIAGNOSTIC Recall History of colonic polyps Health Maintenance Due Date Last Done Comments Cologuard 01/12/1997 Sigmoidoscopy 01/12/1997 Fecal Occult Blood Test 11/18/2023 11/18/19 23, 11/17/2022, 03/16/2022, Additional history exists CKD PHOS USE SMARTSET 85847 05/05/2024 09/0 02/2023, 02/02/2023, 01/11/2022, Additional history [...] COPD 05/03/2025 05/03/2024 CKD HGB USE SMARTSET 85461 07/19/202507/19, 07/19/2024, 06/18/2024, Additional history exists DTap/Tdap [...] Power of Attor kwabena? No Care Teams Director Perioperative Relationship Specialty Start Date End Date Javy Moscoso DO [address] [place] [phone] PCP - General Family Medicine 07/04/23 documented as of this encounter
--- OUTSIDE RECORDS SUMMARY | 2024-11-03 09:42 | External Medical Summary | Summary of Care ---
Author Name Unknown Organization [facility] Address [address] [place] [address] Phone [phone] Care Team Providers Care Toxicology Supervisor Name Role Phone Javy Moscoso DO Primary Care Provider + [phone] Encounter Details Date Type Department Care Team (Late st Contact Info) Description 07/27/2024 Telephone Hematology/Oncology [facility] [place] 200 [facility] [place] [address] Katt Mullen CRNP [address] [place] [address] Allergies Active Allergy Reactions Criticality [...] 09/09/2023 11:01 AM EST 4 Active Pen [place] 31G X 5 MMIndications:Ty pe 2 diabetes [...] every 10 days. E11.9 Active Dexcom G7 Unmanned Equipment Operator Device Use as directed. Use as directed to monitor blood sugars daily Active One[employer]evod Ultra In Vitro Strip (Glucose Blood)Indication s:Type [...] 4 Active Vitamin D (Ergocalciferol) 1.25 MG (77841 UT) Oral Capsule (Drisdol)Indicat ions:Vitamin D deficiency [...] 2.5 mgIndications:ILD (interstitial lung disease) ([facility]),BEARDEN (dyspnea on exertion) 2.5 mg [...] 12/07/2022 Bilateral impacted cerumen 10/22/2022 Atherosclerosis of [place] co ronary artery without angina pectoris 07/15/2022 [...] (PFIZER-Comirnaty) 05/22/2024,02/22/2024,06/16/2023 Pneumococcal Conjugate Vacci ne, 20-valent ([id number]) 12/07/2022 Pneumococcal Polysaccharide PPV23 (Pneumovax) 09/08/2020 Season [...] encounter Miscellaneous Notes * Telephone Encounter - eRza Bass RN - 07/27/2024 12:31 PM EST [...] 8:50 AM EST Office Visit Family Practice [address] [place] [address] [address] [place] [address] College, Pharmacist [address] [place] [address] 09/07/2024 8:40 AM EST Office Visit Family Practice [address] [place] [address] [place] [address] [place] [address] Javy Moscoso DO [address] [place] [phone] 09/14/2024 11:30 AM EST Office Visit H[facility]ology[facility]Oncology [facility] [phone] Katt Mullen CRNP [address] [place], [place] [address] [phone] 10/03/2024 11:00 AM EST Nurse Only Family Practice [address], [place] [address] [place] [phone] Mary Ellen Sorenson, [place] [address] [place] [phone] 02/15/2025 10:00 AM EDT Office Visit [facility] Disorders Ctr [facility] [address] [place] [phone] Debby Cornejo DO [address] [place] [address] 04/10/2025 10:40 AM EDT Office Visit Nephrology, [facility] 200 [facility] [place] [address] Augusto Lerner MD [address] [place] [address] Scheduled Procedures Name Priority Associated Diagnoses Date/Ti me COLONOSCOPY FLEXIBLE PROXIMA L DIAGNOSTIC Recall History of colonic polyps Health Maintenance Due Date Last Done Comments Cologuard 01/12/1997 Sigmoidoscopy 01/12/1997 Fecal Occult Blood Test 11/18/2023 11/18/19 23, 11/17/2022, 03/16/2022, Additional history exists CKD PHOS USE SMARTSET 59517 05/05/2024 09/0 02/2023, 02/02/2023, 01/11/2022, Additional history [...] COPD 05/03/2025 05/03/2024 CKD HGB USE SMARTSET 59692 07/19/202507/19, 07/19/2024, 06/18/2024, Additional history exists DTap/Tdap [...] Power of Attor kwabena? No Care Teams Toxicology Supervisor Relationship Specialty Start Date End Date Javy Moscoso DO [address] [place] [phone] PCP - General Family Medicine 07/04/23 documented as of this encounter
--- OUTSIDE RECORDS SUMMARY | 2024-11-03 09:42 | External Medical Summary | Summary of Care ---
Author Name Unknown Organization [facility] Address [address] [place] [address] Phone [phone] Care Team Providers Care Chocolate Molder Name Role Phone DanisJavy Primary Care Provider [phone] Reason for Visit * Reason Onset Date Comments Test Results Lab 07/20/2024 Encounter Details Date Type Department Care Team (Late st Contact Info) Description 07/20/2024 Telephone Hematology/Oncology [facility] [place] [address] Katt Mullen CRNP [address] [place] [address] Test Results Lab Allergies Active Allergy Reactions Criticality Noted Date Comments Lisinopril Unknown Low 11/15/2022 Verapamil Medium 06/26/2020 Heart Block documented as of this encounter (statuses as of 07/20/2024) Medications CPAP every night at bedtime. Active Acetaminophen 500 MG Oral Tablet (Tylenol) Take 1 to 2 tablets by mouth every 6 hours as needed 2 Active Ancancouch Ultra 2 w/Device Kit USE DIRECTED TO TEST BLOOD SUGARS 1 Each 09/09/2023 11:01 AM EST 4 Active Pen [place] 31G X 5 MMIndications:Typ e 2 diabetes [...] every 10 days. E11.9 Active Dexcom G7 Application Development Team Lead Device Use as directed. Use as directed [...] 4 Active Vitamin D (Ergocalciferol) 1.25 MG (03499 UT) Oral Capsule (Drisdol)Indicati ons:Vitamin D deficiency [...] 12/07/2022 Bilateral impacted cerumen 10/22/2022 Atherosclerosis of [place] ronary artery without angina pectoris [...] (PFIZER-Comirnaty) 05/22/2024,02/22/2024,06/16/2023 Pneumococcal Conjugate Vacci ne, 20-valent ([id number]) 12/07/2022 Pneumococcal Polysaccharide PPV23 (Pneumovax) 09/08/2020 Season [...] encounter Miscellaneous Notes * Telephone Encounter - Joseluis Barker OSA - 07/20/2024 3:22 PM EST VM full - unable to LMOM - MyG Sent * Telephone Encounter - Nhung Gutiérrez LPN - 07/20/2024 2:29 PM EST Scheduling: Please contact patient to schedule, "Monoferric 08/29", Sebas, 2-hour infusion Thank you!! * Telephone Encounter - Nhung Gutiérrez LPN - 07/20/2024 2:29 PM EST [place] plan signed and Referral entered * Telephone [...] 10:20 AM EST Order received for Monoferric [place] plan built and routed to provider Awaiting prior authorization before scheduling patient. * Telephone Encounter - Katt Mullen CRNP - 07/20/2024 8:59 AM EST Results for [...] 07/24/2024 2:00 PM EST [facility] 200 [facility] [place] [address] Augusto Lerner MD 200 [facility] [place] [address] 07/30/2024 8:50 AM EST Office Visit Family Practice [address] [place] [address] [address] [facility] [phone] College, Pharmacist [address] [place] [address] 09/07/2024 8:40 AM EST Office Visit Family Practice [address] [place] [address] [address] [place] [address] Javy Moscoso DO [address] [place] [address] 09/14/2024 11:30 AM EST Office Visit Hematology/Oncology [facility] [place] 200 [facility] [place] [phone] Katt Mullen CRNP 400 [facility] [place] [address] 10/03/2024 11:00 AM EST Nurse Only Family Practice [address] [place] [address] [place] [address] [place] [phone] Mary Ellen Sorenson, JOAQUIN 293 [facility] [phone] 02/15/2025 10:00 AM EDT Office Visit Sleep Disorders Ctr [facility] 132 [facility] [place] [phone] Debby Cornejo DO 132 [facility] [place] [address] Scheduled Procedures Name Priority Associated Diagnoses Date/Ti me COLONOSCOPY FLEXIBLE PROXIMA L DIAGNOSTIC Recall History of colonic polyps Health Maintenance Due Date Last Done Comments Cologuard 01/12/1997 Sigmoidoscopy 01/12/1997 Fecal Occult Blood Test 11/18/2023 11/18/19 23, 11/17/2022, 03/16/2022, Additional history exists CKD PHOS USE SMARTSET 12989 05/05/2024 09/0 02/2023, 02/02/2023, 01/11/2022, Additional history [...] COPD 05/03/2025 05/03/2024 CKD HGB USE SMARTSET 30959 07/19/202507/19, 07/19/2024, 06/18/2024, Additional history exists DTap/Tdap [...] Power of Attor kwabena? No Care Teams Chocolate Molder Relationship Specialty Start Date End Date Javy Moscoso DO [address] [place] [address] PCP - General Family Medicine 07/04/23 documented as of this encounter
--- OUTSIDE RECORDS SUMMARY | 2024-11-03 09:42 | External Medical Summary | Summary of Care ---
Author Name Unknown Organization [facility] Address [address] [place] [address] Phone [phone] Care Team Providers Care Canceling And Cutting Control Clerk Name Role Phone Javy Moscoso DO Primary Care Provider + [phone] Reason for Visit * Reason Comments Dosage Adjustment Via Phone (anticoag Cl inic) Diabetes Follow-Up Encounter Details Date Type Department Care Team (Late st Contact Info) Description 07/30/2024 8:50 AM EST Office Visit Family Practice [address] [address] College, Pharmacist [address] [address] Type 2 diabetes mellitus with hemoglobin A1c goal of less than 7.5% ([facility])* Allergies Active Allergy Reactions Criticality Noted Date Comments Lisinopril Unknown Low 11/15/2022 Verapamil Medium 06/26/2020 Heart Block documented as of this encounter (statuses as of 07/30/2024) Medications CPAP every night at bedtime. Active Acetaminophen 500 MG Oral Tablet (Tylenol) Take 1 to 2 tablets by mouth every 6 hours as needed 2 Active Solv Staffing Ultra 2 w/Device Kit USE DIRECTED TO TEST BLOOD SUGARS 1 Each 09/09/2023 11:01 AM EST 4 Active Pen [place] 31G X 5 MMIndications:Ty pe 2 diabetes [...] every 10 days. E11.9 Active Dexcom G7 Med Admin Device Use as directed. Use as [...] disease, with long-term current use of insulin ([facility]) Take 1 tablet by mouth with evening meal. 90 Tablet 3 04/28/2024 10:27 AM EDT 4 Active Insulin Glargine Solostar 100 UNIT/ML Subcutaneous Solution Pen-injector (Lantus SoloStar)Indicat ions:Type 2 diabetes mellitus with hyperglycemia, with long-term current use of insulin ([facility]) Inject 45 Units under the skin at [...] 4 Active Vitamin D (Ergocalciferol) 1.25 MG (46565 UT) Oral Capsule (Drisdol)Indicat ions:Vitamin D deficiency [...] DOSE IN THE MORNING 180 Tablet 1 07/27/2024 4:15 PM EST 4 Active Hospital, Clinic, or Other Facility Administered Medication Ordered Dose Route Frequency Start Date End Date Status Albuterol Sulfate (Proventil) (2.5 MG/3ML) 0.083% inhalation solution 2.5 mgIndications:ILD (interstitial lung disease) ([facility]),BEARDEN (dyspnea on exertion) 2.5 mg NEBULIZER Q4H [...] 12/07/2022 Bilateral impacted cerumen 10/22/2022 Atherosclerosis of [place] co ronary artery without angina pectoris 07/15/2022 [...] mRNA, LNP-s, No Pre serve, 2-Dose Series ([place]) 07/03/2021,12/27/2020,12/06/2020 COVID-19, MRNA-LNP, PF, 30 M CG/0.3 mL, 12 YRS AND ABOVE, IM (PFIZER-Comirnaty) 05/22/2024,02/22/2024,06/16/2023 Pneumococcal Conjugate Vacci ne, 20-valent ([id number]) 12/07/2022 Pneumococcal Polysaccharide PPV23 (Pneumovax) 09/08/2020 Season [...] this encounter Progress Notes * Bryn Li [facility] - 07/30/2024 8:50 AM EST Diabetes telephone follow - up 07/30/2024 Patient Phone Numbers - Reason for contacting patient: DM therapy change + CGM status f/u 9:17 AM - Pt did not show at in-person appointment time. Called and spoke to both pt and . - Current diabetic medications: Metformin 500 mg ER 1 tab daily (at bedtime) Jardiance 25 mg daily Lantus 45 units at bedtime Prandin 0.5mg 1 tablet with evening meal - Glucose review/ SMBG: pt confirmed used the sample Dexcom G7 since the last visit - will review blood glucose reading at the f/u visit. Hemoglobin AIC Results: Hemoglobin AIC Results: Lab Results Component Value Date/Time HEMOGLOBIN A1C - [facility] 5.7 (H) 04/19/2024 09:44 AM HEMOGLOBIN A1C - [facility] 8.3 (H) 12/15/2023 07:50 AM HEMOGLOBIN A1C - [facility] 8.7 (H) 09/08/2023 10:02 AM HEMOGLOBIN A1C - [facility] 6.9 (H) 09/08/2020 03:23 PM HEMOGLOBIN A1C - [facility] 6.8 (H) 03/19/2020 11:06 AM HEMOGLOBIN A1C - [facility] 6.5 (H) 08/20/2019 09:22 AM Therapy Management Assessment/Plan: Dexcom - pt and stated that they have not been answering unknown phone calls and checking voice mails, and they were not aware that the supplier has changed to [facility]. Updated them regarding the communication and the order canceled status documented per messages on [employer]. Given [facility]'s contact , and pt and agreed to contact for additional questions. Requested to re-activate the order with [facility] on [facility]. Pt stated that he's more comfortable discussing therapy change in person. Will f/u and plan to draw A1C lab at next visit on this Tuesday . 1) Diabetes: no change in therapy at this time Metformin 500 mg ER 1 tab daily (at bedtime) Jardiance 25 mg daily Lantus 45 units at bedtime Prandin 0.5mg 1 tablet with evening meal Follow up in 4 days. Nirmala CummingsD, [facility] PGY1 Earth Auger Operator Medication Therapy [facility] [place] 07/30/2024 9:49 AM documented in this encounter Plan of Treatment Upcoming Encounters Date Type Department Care Team (Late st Contact Info) Description 08/03/2024 8:00 AM EST Office Visit Family Practice [address] [place] [address] [address] [place] [address] [place], Pharmacist [address] [place] [address] 09/07/2024 8:40 AM EST Office Visit Family Practice [address] [place] [address] 10 [place] [address] Javy Moscoso DO [address] [place] [address] 09/14/2024 11:30 AM EST Office Visit Hematology/Oncology [facility] [phone] Katt Mullen CRNP [address] [place] [address] [place] [phone] 10/03/2024 11:00 AM EST Nurse Only Family Practice [address] [place] [address] [place] [address] [place] [address] Mary Ellen Sorenson, JOAQUIN 293 [place] [address] 02/15/2025 10:00 AM EDT Office Visit Sleep Disorders Ctr [facility] [place] [address] [place] [place] [phone] Debby Cornejo, [address] [place] [address] 04/10/2025 10:40 AM EDT Office Visit Nephrology, [place] [place] [address] Augusto Lerner MD [address] [place] [address] Scheduled Procedures Name Priority Associated Diagnoses Date/Ti me COLONOSCOPY FLEXIBLE PROXIMA L DIAGNOSTIC Recall History of colonic polyps Health Maintenance Due Date Last Done Comments Cologuard 01/12/1997 Sigmoidoscopy 01/12/1997 Fecal Occult Blood Test 11/18/2023 11/18/19 23, 11/17/2022, 03/16/2022, Additional history exists CKD PHOS USE SMARTSET 21625 05/05/202402/2023, 02/02/2023, 01/11/2022, Additional history exists Diabetic Foot Exam 06/16/2024 06/16/2023, 06/16/2023 Albumin/Creatinine Ratio 09/09/2024 09/09/2023, 11/0 11/2021 Adult Wellness Visit 09/28/2024 09/28/2023 HbA1c 10/20/2024 04/19/2024, 11/27, 09/08/2023, Additional history exists GFR 12/17/2024 06/18/2024, 03/30, 03/09/2024, Additional history exists Depression Screening 12/21/2024 12/22/2023 Diabetic Eye Exam 03/06/2025 03/06/2024, , 08/24/2023, Additional history exists Colonoscopy 05/03/2025 05/03/2024, 090 12/2023, 12/10/2022, Additional history exists Colorectal Cancer Screening 05/03/2025 O2 ASSESSMENT COMPLETED IN PAST YEAR FOR COPD 05/03/2025 05/03/2024 CKD HGB USE SMARTSET 72872 07/19/202507/19, 07/19/2024, 06/18/2024, Additional history exists DTap/Tdap [...] hemoglobin A1c goal of less than 7.5% (HCC)- Primary documented in this encounter Advance [...] Power of Attor kwabena? No Care Teams Canceling And Cutting Control Clerk Relationship Specialty Start Date End Date Javy Moscoso DO [address] [place] [address] PCP - General Family Medicine 07/04/23 documented as of this encounter
--- OUTSIDE RECORDS SUMMARY | 2024-11-03 09:42 | External Medical Summary | Summary of Care ---
Author Name Unknown Organization [facility] Address [address] [place] [address] Phone [phone] Care Team Providers Care Breast Trimmer Name Role Phone DanisJavy Primary Care Provider [phone] Reason for Visit * Reason Onset Date Comments Test Results Lab 07/20/2024 Encounter Details Date Type Department Care Team (Late st Contact Info) Description 07/20/2024 Telephone Hematology/Oncology [facility] 200 [facility] [place] [address] Katt Mullen CRNP 400 [place] [address] Test Results Lab Allergies Active Allergy Reactions Criticality Noted Date Comments Lisinopril Unknown Low 11/15/2022 Verapamil Medium 06/26/2020 Heart Block documented as of this encounter (statuses as of 07/24/2024) Medications CPAP every night at bedtime. Active Acetaminophen 500 MG Oral Tablet (Tylenol) Take 1 to 2 tablets by mouth every 6 hours as needed 2 Active Md7Touch Ultra 2 w/Device Kit USE DIRECTED TO TEST BLOOD SUGARS 1 Each 09/09/2023 11:01 AM EST 4 Active Pen [place] 31G X 5 MMIndications:Typ e 2 diabetes [...] every 10 days. E11.9 Active Dexcom G7 Field Artillery Targeting Technician Device Use as directed. Use as [...] 4 Active Vitamin D (Ergocalciferol) 1.25 MG (47834 UT) Oral Capsule (Drisdol)Indicati ons:Vitamin D deficiency [...] inhalation solution 2.5 mgIndications:ILD (interstitial lung disease) ([facility]),BEARDEN (dyspnea on exertion) 2.5 mg NEBULIZER Q4H PRN 12/12/2023 Act jose documented as of this encounter (statuses as of 07/24/2024) Active Problems Problem Noted Date Diagnosed Date [...] 12/07/2022 Bilateral impacted cerumen 10/22/2022 Atherosclerosis of [place] co ronary artery without angina pectoris 07/15/2022 [...] as of this encounter (statuses as of 07/24/2024) Resolved Problems Problem Noted Date Diagnosed Date [...] as of this encounter (statuses as of 07/24/2024) Immunizations Name Administration Dates Next Due COVID-19 mRNA, LNP-s, No Pre serve, 2-Dose Series (Pfizer) 07/03/2021,12/27/2020,12/06/2020 COVID-19, MRNA-LNP, PF, 30 M CG/0.3 mL, 12 YRS AND ABOVE, IM (PFIZER-Comirnaty) 05/22/2024,02/22/2024,06/16/2023 Pneumococcal Conjugate Vacci ne, 20-valent ([id number]) 12/07/2022 Pneumococcal Polysaccharide PPV23 (Pneumovax) 09/08/2020 Season [...] on file Are you (or your family) juayn eless or worried that you might be [...] Telephone Encounter - Ninfa Dominguez OSA - 07/24/2024 8:23 AM EST Pt is scheduled for 07/30 And is aware * Telephone Encounter - Ninfa Dominguez OSA - 07/23/2024 8:57 AM EST Called unable to leave message again X2 attempt * Telephone Encounter - Renetta Dukes RN [...] Gutiérrez LPN - 07/20/2024 2:29 PM EST [place] plan signed and Referral entered * Telephone [...] 10:20 AM EST Order received for Monoferric [place] plan built and routed to provider Awaiting [...] 07/24/2024 2:00 PM EST Office Visit Nephrology, [address] [place] [address] Augusto Lerner MD 200 [facility] [place] [address] 07/30/2024 8:50 AM EST Office Visit [address] [address] College, Pharmacist [address] [place] [address], [place] [address] 07/30/2024 10:30 AM EST Hem/Onc Treatment Hematology/Oncology Treatment, [place] 200 [facility] [phone] Margarita Chair 10 Hem Onc [address] [address] 09/07/2024 8:40 AM EST Office Visit Family [address] 10 [place] [address] Javy Moscoso DO 10 [place] [address] 09/14/2024 11:30 AM EST Office Visit Hematology/Oncology [facility] [address] [place] [phone] Katt Mullen CRNP 400 [facility] [place] [address] 10/03/2024 11:00 AM EST Nurse Only Family Practice [address] [place] [address] 10 [place] [address] Mary Ellen Sorenson, JOAQUIN 293 [facility] [address] 02/15/2025 10:00 AM EDT [facility] [address] [place] [phone] Debby Cornejo, [address] [place] [address] Scheduled Procedures Name Priority Associated Diagnoses Date/Ti me COLONOSCOPY FLEXIBLE PROXIMA L DIAGNOSTIC Recall History of colonic polyps Health Maintenance Due Date Last Done Comments Cologuard 01/12/1997 Sigmoidoscopy 01/12/1997 Fecal Occult Blood Test 11/18/2023 11/18/19 23, 11/17/2022, 03/16/2022, Additional history exists CKD PHOS USE SMARTSET 52458 05/05/2024 09/0 02/2023, 02/02/2023, 01/11/2022, Additional history [...] COPD 05/03/2025 05/03/2024 CKD HGB USE SMARTSET 29795 07/19/202507/19, 07/19/2024, 06/18/2024, Additional history exists DTap/Tdap [...] Power of Attor kwabena? No Care Teams Breast Trimmer Relationship Specialty Start Date End Date Javy Moscoso DO [address] [place] [address] PCP - General Family Medicine 07/04/23 documented as of this encounter
--- OUTSIDE RECORDS SUMMARY | 2024-11-03 09:42 | External Medical Summary | Summary of Care ---
Author Name Unknown Organization [facility] Address [address] [place] [address] Phone [phone] Care Team Providers Care Regional Sales Leader Name Role Phone DanisJavy Primary Care Provider [phone] Reason for Visit * Reason Onset Date Comments Test Results Lab 07/20/2024 Encounter Details Date Type Department Care Team (Late st Contact Info) Description 07/20/2024 Telephone Hematology/Oncology [facility] [address] [facility] [place] [address] Katt Mullen CRNP 400 [place] [address] Test Results Lab Allergies Active Allergy Reactions Criticality Noted Date Comments Lisinopril Unknown Low 11/15/2022 Verapamil Medium 06/26/2020 Heart Block documented as of this encounter (statuses as of 07/23/2024) Medications CPAP every night at bedtime. Active Acetaminophen 500 MG Oral Tablet (Tylenol) Take 1 to 2 tablets by mouth every 6 hours as needed 2 Active ngmocoTouch Ultra 2 w/Device Kit USE DIRECTED TO TEST BLOOD SUGARS 1 Each 09/09/2023 11:01 AM EST 4 Active Pen [place] 31G X 5 MMIndications:Typ e 2 diabetes [...] every 10 days. E11.9 Active Dexcom G7 Dirt Bike Racer Device Use as directed. Use as directed [...] 4 Active Vitamin D (Ergocalciferol) 1.25 MG (07216 UT) Oral Capsule (Drisdol)Indicati ons:Vitamin D deficiency [...] as of this encounter (statuses as of 07/23/2024) Active Problems Problem Noted Date Diagnosed Date [...] 12/07/2022 Bilateral impacted cerumen 10/22/2022 Atherosclerosis of [place] co ronary artery without angina pectoris 07/15/2022 [...] as of this encounter (statuses as of 07/23/2024) Resolved Problems Problem Noted Date Diagnosed Date [...] as of this encounter (statuses as of 07/23/2024) Immunizations Name Administration Dates Next Due COVID-19 mRNA, LNP-s, No Pre serve, 2-Dose Series (Pfizer) 07/03/2021,12/27/2020,12/06/2020 COVID-19, MRNA-LNP, PF, 30 M CG/0.3 mL, 12 YRS AND ABOVE, IM (PFIZER-Comirnaty) 05/22/2024,02/22/2024,06/16/2023 Pneumococcal Conjugate Vacci ne, 20-valent ([id number]) 12/07/2022 Pneumococcal Polysaccharide PPV23 (Pneumovax) 09/08/2020 Season [...] Gutiérrez LPN - 07/20/2024 2:29 PM EST [place] plan signed and Referral entered * Telephone [...] 10:20 AM EST Order received for Monoferric [place] plan built and routed to provider Awaiting prior authorization before scheduling patient. * Telephone Encounter - Katt Mullen AUSTIN Carbone - 07/20/2024 8:59 AM EST Results for [...] Visit Nephrology, [facility] 200 [facility] [place] [address] Augusto Lerner MD 200 [facility] [place] [address] 07/30/2024 8:50 AM EST Office Visit Family Practice [address] [place] [address] 293 [place] [address] College, Pharmacist [address] [place] [address] 09/07/2024 8:40 AM EST Office Visit Family Practice [address] [place] [address] [place] [address] [place] [address] Javy Moscoso DO [address] [place] [phone] 09/14/2024 11:30 AM EST Office Visit Hematology/Oncology [facility] 200 [facility] [place] [phone] Katt Mullen CRNP [address] [place] [address] 10/03/2024 11:00 AM EST Nurse Only Family Practice [address] [place] [address] [place] [address] [place] [phone] Mary Ellen Sorenson, JOAQUIN [address] [place] [phone] 02/15/2025 10:00 AM EDT [facility] [address] [place] [phone] Debby Cornejo, [address] [place] [address] Scheduled Procedures Name Priority Associated Diagnoses Date/Ti me COLONOSCOPY FLEXIBLE PROXIMA L DIAGNOSTIC Recall History of colonic polyps Health Maintenance Due Date Last Done Comments Cologuard 01/12/1997 Sigmoidoscopy 01/12/1997 Fecal Occult Blood Test 11/18/2023 11/18/19 23, 11/17/2022, 03/16/2022, Additional history exists CKD PHOS USE SMARTSET 75453 05/05/20240 02/2023, 02/02/2023, 01/11/2022, Additional history exists Diabetic Foot Exam 06/16/2024 06/16/2023, 06/16/2023 Albumin/Creatinine Ratio 09/09/2024 09/09/2023, 11/2021 Adult Wellness Visit 09/28/2024 09/28/2023 HbA1c 10/20/2024 04/19/2024, 0403/2024, 09/08/2023, Additional history exists GFR 12/17/2024 06/18/2024, 0809/2023, 03/09/2024, Additional history exists Depression Screening 12/21/2024 12/22/2023 Diabetic Eye Exam 03/06/2025 03/06/2024, , 08/24/2023, Additional history exists Colonoscopy 05/03/2025 05/03/2024, 0 12/2023, 12/10/2022, Additional history exists Colorectal Cancer Screening 05/03/2025 O2 ASSESSMENT COMPLETED IN PAST YEAR FOR COPD 05/03/2025 05/03/2024 CKD HGB USE SMARTSET 62436 07/19/202507/194, 07/19/2024, 06/18/2024, Additional history exists DTap/Tdap Vaccines [...] Power of Attor kwabena? No Care Teams Regional Sales Leader Relationship Specialty Start Date End Date Javy Moscoso DO [address] [place] [address] PCP - General Family Medicine 07/04/23 documented as of this encounter
--- OUTSIDE RECORDS SUMMARY | 2024-11-03 09:42 | External Medical Summary | Summary of Care ---
Author Name Unknown Organization [facility] Address [address] [place] [address] Phone [phone] Care Team Providers Care Tarp Repairer Name Role Phone Javy Moscoso DO Primary Care Provider Reason for Visit * Reason Comments Medication Refill Encounter Details Date Type Department Care Team (Late st Contact Info) Description 07/27/2024 Refill Family Practice 65 [facility] [address] [place] [id number] Javy Moscoso DO [address] [place] [phone] Allergies Active Allergy Reactions Criticality Noted Date [...] 09/09/2023 11:01 AM EST 4 Active Pen [place] 31G X 5 MMIndications:Ty pe 2 diabetes [...] every 10 days. E11.9 Active Dexcom G7 Silica Filter Operator Device Use as directed. Use as directed to monitor blood sugars daily Active OneCoinbaseuch Ultra In Vitro Strip (Glucose Blood)Indication s:Type [...] 4 Active Vitamin D (Ergocalciferol) 1.25 MG (51593 UT) Oral Capsule (Drisdol)Indicat ions:Vitamin D deficiency [...] disease, without long-term current use of insulin ([facility]) Take 1 Tablet by mouth daily. 90 Tablet 3 07/17/2024 4:00 PM EST 4 Active Additional Information Patient taking differently:500 mg OralDaily(AM), Reported on 07/24/2024 Empagliflozin 25 MG Oral Tablet (Jardiance)Indic ations:Type 2 diabetes mellitus with hyperglycemia, without long-term current use of insulin (HCC),Type 2 diabetes mellitus with stage 3b chronic kidney disease, without long-term current use of insulin ([facility]) Take 1 Tablet by mouth in the morning. 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 pectoris 07/15/2022 [...] mRNA, LNP-s, No Pre serve, 2-Dose Series (Medicast) 07/03/2021,12/27/2020,12/06/2020 COVID-19, MRNA-LNP, PF, 30 M CG/0.3 mL, 12 YRS AND ABOVE, IM ([facility]) 05/22/2024,02/22/2024,06/16/2023 Pneumococcal Conjugate Vacci ne, 20-valent ([id number]) 12/07/2022 Pneumococcal Polysaccharide PPV23 (Pneumovax) 09/08/2020 Season [...] Telephone Encounter - Javy Moscoso DO - 07/27/2024 12:59 PM ESTSigned Prescriptions: Disp Refills Gabapentin 600 MG Oral Tablet (Neurontin) 180 Ta*1 Sig: TAKE ONETABLET BY MOUTH TWICE A DAY AT NOON AND AT BEDTIME IN ADDITION TO A 100MG DOSE IN THE MORNINGAuthorizing Provider: JAVY MOSCOSO documented in this encounter Plan of Treatment Upcoming Encounters Date Type Department Care Team (Late st Contact Info) Description 07/30/2024 8:50 AM EST Office Visit Family Practice [address] [place] [address] [address] [place] [address] College, Pharmacist [address] [place] [address] 09/07/2024 8:40 AM EST Office Visit Family Practice [address] [place] [address] [place] [address] [place] [address] Javy Moscoso DO [address] [place] [address] 09/14/2024 11:30 AM EST Office Visit [facility]ology[facility] [phone] Katt Mullen CRNP [address] [facility] [phone] 10/03/2024 11:00 AM EST Nurse Only Family Practice [address] [place] [address] [place] [address] Mary Ellen Sorenson, JOAQUIN [address] [place] [phone] 02/15/2025 10:00 AM EDT Office Visit [facility] [place] [address] [place] [phone] Debby Cornejo DO [address] [place] [address] 04/10/2025 10:40 AM EDT Office Visit Nephrology, [facility] [address] [place] [address] Augusto Lerner MD [address] [place] [address] Scheduled Procedures Name Priority Associated Diagnoses Date/Ti me COLONOSCOPY FLEXIBLE PROXIMA L DIAGNOSTIC Recall History of colonic polyps Health Maintenance Due Date Last Done Comments Cologuard 01/12/1997 Sigmoidoscopy 01/12/1997 Fecal Occult Blood Test 11/18/2023 11/18/19 23, 11/17/2022, 03/16/2022, Additional history exists CKD PHOS USE SMARTSET 44517 05/05/2024 09/0 02/2023, 02/02/2023, 01/11/2022, Additional history [...] COPD 05/03/2025 05/03/2024 CKD HGB USE SMARTSET 67847 07/19/202507/19, 07/19/2024, 06/18/2024, Additional history exists DTap/Tdap [...] Power of Attor kwabena? No Care Teams Tarp Repairer Relationship Specialty Start Date End Date Javy Moscoso DO [address] [place] [phone] PCP - General Family Medicine 07/04/23 documented as of this encounter
--- OUTSIDE RECORDS SUMMARY | 2024-11-03 09:43 | External Medical Summary | Summary of Care ---
Author Name Unknown Organization [facility] Address [address] [place] [address] Phone [phone] Care Team Providers Care Parts Driver Name Role Phone Javy Moscoso DO Primary Care Provider + [phone] Encounter Details Date Type Department Care Team (Late st Contact Info) Description 07/20/2024 Telephone Hematology/Oncology [facility] [place] 200 [facility] [place] [address] Katt Mullen CRNP [address] [place] [address] Allergies Active Allergy Reactions Criticality [...] 09/09/2023 11:01 AM EST 4 Active Pen [place] 31G X 5 MMIndications:Typ e 2 diabetes [...] every 10 days. E11.9 Active Dexcom G7 Case Reviewer Device Use as directed. Use as directed [...] 4 Active Vitamin D (Ergocalciferol) 1.25 MG (00793 UT) Oral Capsule (Drisdol)Indicati ons:Vitamin D deficiency [...] 12/07/2022 Bilateral impacted cerumen 10/22/2022 Atherosclerosis of [place] co ronary artery without angina pectoris [...] protocol Hypertensive heart disease w [facility] congestive heart failure 10/21/2021 07/08/2022 [...] mRNA, LNP-s, No Pre serve, 2-Dose Series (ScribbleLive) 07/03/2021,12/27/2020,12/06/2020 COVID-19, MRNA-LNP, PF, 30 M CG/0.3 mL, 12 YRS AND ABOVE, IM (PFIZER-Comirnaty) 05/22/2024,02/22/2024,06/16/2023 Pneumococcal Conjugate Vacci ne, 20-valent ([email or web address]) 12/07/2022 Pneumococcal Polysaccharide PPV23 (Pneumovax) 09/08/2020 Season [...] Visit Nephrology, [facility] [place] [address] Augusto Lerner MD 200 [facility] [place], [place] [address] 07/30/2024 8:50 AM EST Office Visit Family Practice [address] [place] [address] [place] [phone] College, Pharmacist [address] [place] [address], [place] [address] 09/07/2024 8:40 AM EST Office Visit Family Practice 65 [facility] [place] [address] [place] [phone] Javy Moscoso DO [address] [place] [address] 09/14/2024 11:30 AM EST Office Visit Hematology/Oncology [facility] [place] [phone] Katt Mullen CRNP [address] [place], [place] [address]K[place] [phone] 10/03/2024 11:00 AM EST Nurse Only Family Practice 65 [facility] [place] [address] [place] [address] Mary Ellen Sorenson RN 293 [place] [phone] 02/15/2025 10:00 AM EDT Office Visit Sleep Disorders Ctr [facility] [place] [phone] Chantal Debbysintia Deal, DO [address] [place] [address] Scheduled Procedures Name Priority Associated Diagnoses Date/Ti me COLONOSCOPY FLEXIBLE PROXIMA L DIAGNOSTIC Recall History of colonic polyps Health Maintenance Due Date Last Done Comments Cologuard 01/12/1997 Sigmoidoscopy 01/12/1997 Fecal Occult Blood Test 11/18/2023 11/18/19, 11/17/2022, 03/16/2022, Additional history exists CKD PHOS USE SMARTSET 88273 05/05/2024 090 02/2023, 02/02/2023, 01/11/2022, Additional history [...] COPD 05/03/2025 05/03/2024 CKD HGB USE SMARTSET 36675 07/19/202507/19, 07/19/2024, 06/18/2024, Additional history exists DTap/Tdap [...] Power of Attor kwabena? No Care Teams Parts Driver Relationship Specialty Start Date End Date Javy Moscoso DO [address] [place] [address] PCP - General Family Medicine 07/04/23 documented as of this encounter
--- OUTSIDE RECORDS SUMMARY | 2024-11-03 09:43 | External Medical Summary | Summary of Care ---
Author Name Unknown Organization [facility] Address [address] [place] [address] Phone [phone] Care Team Providers Care Mohs Surgeon Name Role Phone DanisJavy Primary Care Provider [phone] Reason for Visit * Reason Onset Date Comments Test Results Lab 07/20/2024 Encounter Details Date Type Department Care Team (Late st Contact Info) Description 07/20/2024 Telephone Hematology/Oncology [facility] [place] [address] Katt Mullen CRNP [address] [place] [address] Test Results Lab Allergies Active Allergy Reactions Criticality Noted Date Comments Lisinopril Unknown Low 11/15/2022 Verapamil Medium 06/26/2020 Heart Block documented as of this encounter (statuses as of 07/20/2024) Medications CPAP every night at bedtime. Active Acetaminophen 500 MG Oral Tablet (Tylenol) Take 1 to 2 tablets by mouth every 6 hours as needed 2 Active Benjamin's Deskuch Ultra 2 w/Device Kit USE DIRECTED TO TEST BLOOD SUGARS 1 Each 09/09/2023 11:01 AM EST 4 Active Pen [place] 31G X 5 MMIndications:Typ e 2 diabetes [...] every 10 days. E11.9 Active Dexcom G7 Apron Cleaner Device Use as directed. Use as [...] 4 Active Vitamin D (Ergocalciferol) 1.25 MG (03344 UT) Oral Capsule (Drisdol)Indicati ons:Vitamin D deficiency [...] 2.5 mgIndications:ILD (interstitial lung disease) ([facility]),BEARDEN (dyspnea on exertion) 2.5 mg NEBULIZER Q4H [...] 12/07/2022 Bilateral impacted cerumen 10/22/2022 Atherosclerosis of [place] co ronary artery without angina pectoris 07/15/2022 [...] (PFIZER-Comirnaty) 05/22/2024,02/22/2024,06/16/2023 Pneumococcal Conjugate Vacci ne, 20-valent ([id number]) 12/07/2022 Pneumococcal Polysaccharide PPV23 (Pneumovax) 09/08/2020 Season [...] Gutiérrez LPN - 07/20/2024 2:29 PM EST Knott plan signed and Referral entered * Telephone [...] 10:20 AM EST Order received for Monoferric Knott plan built and routed to provider Awaiting [...] Visit Nephrology, [facility] [address] [place] [address] Augusto Lerner MD 200 [facility] [place] [address] 07/30/2024 8:50 AM EST Office Visit Family Practice [address] [place] [address] 293 [facility] [place] [address] College, Pharmacist [address] [address] 09/07/2024 8:40 AM EST Office Visit Family Practice 65 [facility] [address] [place] [phone] Javy Moscoso DO [address] [place] [address] 09/14/2024 11:30 AM EST Office Visit Hematology/Oncology [facility] 200 [facility] [place] [phone] Katt Mullen CRNP [address] [place] [address] [place] [address] 10/03/2024 11:00 AM EST Nurse Only Family Practice 65 [facility] [address] [place] [address] Mary Ellen Sorenson, JOAQUIN 293 [facility] [place] [phone] 02/15/2025 10:00 AM EDT Office Visit Sleep Disorders Ctr [facility] 132 [facility] [place] [phone] Debby Cornejo, 132 [facility] [place] [address] Scheduled Procedures Name Priority Associated Diagnoses Date/Ti me COLONOSCOPY FLEXIBLE PROXIMA L DIAGNOSTIC Recall History of colonic polyps Health Maintenance Due Date Last Done Comments Cologuard 01/12/1997 Sigmoidoscopy 01/12/1997 Fecal Occult Blood Test 11/18/2023 11/18/19 23, 11/17/2022, 03/16/2022, Additional history exists CKD PHOS USE SMARTSET 66035 05/05/2024 09/0 02/2023, 02/02/2023, 01/11/2022, Additional history exists Diabetic Foot Exam 06/16/2024 06/16/2023, 06/16/2023 Albumin/Creatinine Ratio 09/09/2024 09/09/2023, 110 11/2021 Adult Wellness Visit 09/28/2024 09/28/2023 HbA1c 10/20/2024 04/19/2024, 11/27, 09/08/2023, Additional history exists GFR 12/17/2024 06/18/2024, 03/30, 03/09/2024, Additional history exists Depression Screening 12/21/2024 12/22/2023 Diabetic Eye Exam 03/06/2025 03/06/2024, , 08/24/2023, Additional history exists Colonoscopy 05/03/2025 05/03/2024, 12/2023, 12/10/2022, Additional history exists Colorectal Cancer Screening 05/03/2025 O2 ASSESSMENT COMPLETED IN PAST YEAR FOR COPD 05/03/2025 05/03/2024 CKD HGB USE SMARTSET 87699 07/19/202507/19, 07/19/2024, 06/18/2024, Additional history exists DTap/Tdap [...] Power of Attor kwabena? No Care Teams Mohs Surgeon Relationship Specialty Start Date End Date Javy Moscoso DO [address] [place] [phone] PCP - General Family Medicine 07/04/23 documented as of this encounter
--- OUTSIDE RECORDS SUMMARY | 2024-11-03 09:43 | External Medical Summary ---
Author Name Unknown Address Unknown Organization K01:[facility] - [address] [facility] [address] Laboratory Report Ordering Provider Test Date Status MONTSE MEJIA 07/19/2024 08:25:19 Final Observation Date Value Abnormality Reference (Units ) Status WBC, Total 07/19/2024 08:25:19 5.28 4.00-10.80 (K/uL) Final RBC 07/19/2024 08:25:19 4.55 4.50-5.25 (M/uL) Final Hemoglobin 07/19/2024 08:25:19 13.5 Below low normal 14.0-16.8 (g/dL) Final HCT 07/19/2024 08:25:19 44.1 40.0-48.4 (%) Final MCV 07/19/2024 08:25:19 96.9 82.0-99.5 (fL) Final MCH 07/19/2024 08:25:19 29.7 27.0-34.0 (pg) Final MCHC 07/19/2024 08:25:19 30.6 32.0-36.0 (g/dL) Final RDW 07/19/2024 08:25:19 14.1 11.5-15.5 (%) Final Platelets 07/19/2024 08:25:19 117 Below low normal 140-400 (K/uL) Final MPV 07/19/2024 08:25:19 13.9 6.6-11.1 (fL) Final Nucleated erythrocytes/100 leukocytes [Ratio] in Blood by Automated count 07/19/2024 08:25:19 0 <=0 (/100 WBCs) Final Performing Location [facility] - [address] [place] [address]
--- OUTSIDE RECORDS SUMMARY | 2024-11-03 09:43 | External Medical Summary | Summary of Care ---
Author Name Unknown Organization [facility] Address [address] [place] [address] Phone [phone] Care Team Providers Care Building Trades Instructor Name Role Phone Javy Moscoso DO Primary Care Provider + [phone] Reason for Visit * Reason Comments Dosage Adjustment In Person (Anticoag Cl inic) Diabetes Follow-Up Encounter Details Date Type Department Care Team (Late st Contact Info) Description 07/16/2024 8:10 AM EST Office Visit Family Practice [address] [address] College, Pharmacist [address] [address] Type 2 diabetes mellitus with diabetic peripheral angiopathy without gangrene, with long-term current use of insulin ([facility])*; Type 2 diabetes mellitus with hemoglobin A1c goal of less than 7.5% ([facility]) Allergies Active Allergy Reactions Criticality Noted Date Comments Lisinopril Unknown Low 11/15/2022 Verapamil Medium 06/26/2020 Heart Block documented as of this encounter (statuses as of 07/19/2024) Medications CPAP every night at bedtime. Active Acetaminophen 500 MG Oral Tablet (Tylenol) Take 1 to 2 tablets by mouth every 6 hours as needed 2 Active OneTouch Ultra 2 w/Device Kit USE DIRECTED TO TEST BLOOD SUGARS 1 Each 09/09/2023 11:01 AM EST 4 Active Pen [place] 31G X 5 MMIndications:Ty pe 2 diabetes mellitus with hyperglycemia, with long-term current use of insulin (HCC) Use as directed. Use as directed with glargine insulin once daily 100 Each 3 06/01/2024 6:56 PM EDT 4 Active Torsemide 20 MG Oral Tablet (Demadex)Indicat ions:HTN, goal below 140/90 TAKE ONE TABLET BY MOUTH EVERY MORNING 90 Tablet 3 04/19/2024 8:56 AM EDT 4 025 Active Vitamin B-12 2500 MCG Sublingual Tablet Sublingual Place 1 Tablet under the tongue in the morning. Active Dexcom G7 Sensor Use as directed. Use as directed to monitor blood sugars daily. Replace sensor every 10 days. E11.9 Active Dexcom G7 Beauty Consultant Device Use as directed. Use as directed to monitor blood sugars daily Active AnyPresence In Vitro Strip (Glucose Blood)Indication s:Type 2 [...] use of insulin ([facility]) Take 1 tablet by mouth with evening meal. 90 Tablet 3 04/28/2024 10:27 AM EDT 4 Active Insulin Glargine Solostar 100 UNIT/ML Subcutaneous Solution Pen-injector (Lantus SoloStar)Indicat ions:Type 2 diabetes mellitus with hyperglycemia, with long-term current use of insulin ([facility]) Inject 45 Units under the skin at [...] 4 Active Vitamin D (Ergocalciferol) 1.25 MG (91248 UT) Oral Capsule (Drisdol)Indicat ions:Vitamin D deficiency Take 1 Capsule by mouth Every Month. 6 Capsule 3 06/11/2024 6:55 AM EDT 4 Active PreserVision AREDS 2+Multi Vit Oral Capsule Take 1 Capsule by mouth in the morning and 1 Capsule before bedtime. 180 Capsule 3 4 Active Empagliflozin 25 MG Oral Tablet (Jardiance)Indic ations:Type 2 diabetes mellitus with hyperglycemia, without long-term current use of insulin (HCC),Type 2 diabetes mellitus with stage 3b chronic kidney disease, without long-term current use of insulin ([facility]) Take 1 Tablet by mouth in the morning. 100 Tablet 3 04/19/2024 8:56 AM EDT 3 024 Discontin ued(Refil l) metFORMIN HCl ER 500 MG Oral Tablet Extended Release 24 Hour (Glucophage XR)Indications:T ype 2 diabetes mellitus with stage 3b chronic kidney disease, without long-term current use of insulin (HCC) Take 1 Tablet by mouth at bedtime. 4 024 Discontin ued(Refil l) Carvedilol 25 MG Oral Tablet (Coreg)Indicatio ns:HTN, goal below 140/90 Take 1/2 tab twice daily 4 024 Discontin ued(Refil l) Hospital, Clinic, or Other Facility Administered Medication Ordered Dose Route Frequency Start Date End Date Status Albuterol Sulfate (Proventil) (2.5 MG/3ML) 0.083% inhalation solution 2.5 mgIndications:ILD (interstitial lung disease) ([facility]),BEARDEN (dyspnea on exertion) 2.5 mg NEBULIZER Q4H PRN 12/12/2023 Act jose documented as of this encounter (statuses as of 07/19/2024) Active Problems Problem Noted Date Diagnosed Date [...] as of this encounter (statuses as of 07/19/2024) Resolved Problems Problem Noted Date Diagnosed Date [...] as of this encounter (statuses as of 07/19/2024) Immunizations Name Administration Dates Next Due COVID-19 mRNA, LNP-s, No Pre serve, 2-Dose Series (QUALIA (formerly known as LocalResponse)) 07/03/2021,12/27/2020,12/06/2020 COVID-19, MRNA-LNP, PF, 30 M CG/0.3 mL, 12 YRS AND ABOVE, IM ([facility]) 05/22/2024,02/22/2024,06/16/2023 Pneumococcal Conjugate Vacci ne, 20-valent ([id number]) 12/07/2022 Pneumococcal Polysaccharide PPV23 (Pneumovax) 09/08/2020 Season [...] this encounter Progress Notes * Mirtha Novak [facility] - 07/19/2024 7:49 AM EST Reached out to [facility] to have them reach out to patient for sensor again. Notes say patient's spouse was unsure of copay and then follow up calls were unsuccessful. Also sent MyG message to patient. Agree with plan as documented. Mirtha López, Pharm D, BCACP Clinical Pharmacist [facility] 07/19/2024, 7:49 AM * Bryn Li [facility] - 07/16/2024 8:10 AM EST Medication Therapy Disease Management Clinic [...] with evening meal Medication Injection Site: Abdomen -[facility] delivers octreotide and other meds are from [facility] -Pt reported losing PACE this past year due to , Cyndi, working at [employer] - she has quit sincethen. Currently has [facility] 6 months copay assistance program started this past month. Pt reported will try to renew PACE once the time comes. Lifestyle: Diet: unchanged - pt reported unwilling to change diet/lifestyle Glucose Review/SMBG: Readings obtained from patient device -Has not had Dexcom G7 for 2 months (uses a device rather than phone to receive reading) - has ordered from [facility] but has not received any - below blood sugar readings are obtained from glucometer -avg 7-day - 159 --highest 277 on 1116 AM - ate apple dumplings with ice cream the night before -avg 14-day - 179 -avg 30-day- 164 -several 250+ AM readings Hypoglycemia: Does your blood sugar go below 70 mg/dL? Yes - lows a few weeks back - usually has symptoms around 60s - has not had low in the past few weeks - works outside all day and usually has lows in the afternoon in the past - pt confirmed understanding of strategies to correct low blood sugar Hyperglycemia symptoms present: none Recent Labs Units 04/19/24 0944 12/15/23 0750 09/08/23 1002 HEMOGLOBIN A1C - [facility] % 5.7* 8.3* 8.7* Recent Labs Units 06/18/24 0757 04/19/24 0944 03/09/24 0751 ESTIMATED GLOMERULAR FILTRATION RATE - [facility] mL/min 45* 45* 40* CREATININE - [facility] mg/dL 1.6* 1.6* 1.8* HYPERTENSION: Patient on ACEi/ARB: yes BP Readings from Last 3 Encounters: 06/08/24 118/64 05/03/24 130/58 04/19/24 118/60 Blood pressure at goal: yes HYPERLIPIDEMIA: Recent Labs Units 12/15/23 0750 03/21/23 0803 LDL CHOLESTEROL (CALCULATED) - [facility] mg/dL 59 -- LDL CHOLESTEROL (DIRECT MEASURE) - [facility] mg/dL -- 62 Does patient have clinical ASCVD? No, is patient LDL less than 70mg/dL? Yes HEALTH MAINTENANCE REVIEW: Health Maintenance Due Topic Date Due CKD PHOS USE SMARTSET 64680 05/05/2024 Diabetic Foot Exam 06/16/2024 Albumin/Creatinine Ratio 09/09/2024 ASSESSMENT & PLAN: ICD-10-CM 1. Type 2 diabetes mellitus with diabetic peripheral angiopathy without gangrene, with long-term current use of insulin ([facility]) E11.51 Z79.4 2. Type 2 diabetes mellitus with hemoglobin A1c goal of less than 7.5% ([facility]) E11.9 -Discussed the use of Xultophy to substitute Lantus + Prandin OR additional mealtime insulin due tomorning and night peaks. Pt refused taking more than 1 injections for diabetes per day. -Educated pt on MOA, initiation/tapering schedule between Xultophy and Lantus, and ADR. Pt confirmed understanding and agreeable to change of therapy. Considering pt's current use of octreotide and past history of GI bleed, will hold and investigate the use of Xultophy. Will revisit therapy change with pt at the next visit. -Tomorrow health supplier change application for Dexcom has started previously. Will f/u by [facility]. Sample CGM given to pt per pt request. Will check delivery status with pt at next visit. -Plans to continue logging blood sugar twice daily. BG Readings - Blood sugars uncontrolled. Medications - Reviewed current regimen, patient is adherent to regimen. Diet, Exercise, Lifestyle - No significant lifestyle changes since last visit. Discussed with patient seeing network security engineer again. Pt agreed to consider. Patient is agreeable to SMBG 2 time(s) daily. Patient aware to contact clinic if any hypoglycemia before next visit. MEDICATION CHANGES: no change Diabetic Medications: Metformin 500 mg ER 1 tab daily (at bedtime) Jardiance 25 mg daily Lantus 45 units at bedtime Prandin 0.5mg 1 tablet with evening meal HEALTH MAINTENANCE INTERVENTIONS: Labs: Up to Date Immunizations: Pt is indicated for RSV. Will discuss at future visit. Foot Exam: assess at future visit Eye Exam: Up to Date Annual Wellness Visit: Up to Date FOLLOW UP: Return to clinic in 2 weeks 07/30/2024 I spent a total of Greater than 55 mins (exact time 60 mins) on the date of service in preparation,delivery, and documentation of the care provided to Walker Mancini excluding any time spent in theperformance of separately billed services. Bryn Li PharmD, [facility] PGY1 Insulation Blanket Maker Medication Therapy Management Clinics [place] 07/17/2024 5:02 AM documented in this encounter Plan of Treatment Upcoming Encounters Date Type Department Care Team (Late st Contact Info) Description 07/19/2024 9:10 AM EST Laboratory Laboratory Patient Service [place], [address] [phone] [place], [facility] [place] [address] [place] [address] Arrived 07/24/2024 2:00 PM EST Office Visit Nephrology, [facility] 200 [facility] [place], [place] [address] Augusto Lerner MD 200 [facility] [place] [address] 07/30/2024 8:50 AM EST Office Visit Family Practice 65 [facility] 293 [place] [phone] College, Pharmacist [address] [address] 09/07/2024 8:40 AM EST Office Visit Family Practice [address] [place] [address] [address] [place] [address] Javy Moscoso DO [address] [place] [address] 09/14/2024 11:30 AM EST Office Visit Hematology/Oncology [facility] 200 [facility] [place], [place] [phone] Katt [facility]ullen CRNP [facility] [address] 10/03/2024 11:00 AM EST Nurse Only Family Practice 65 [facility] [address] [place] [phone] Mary Ellen Sorenson, JOAQUIN 293 [facility], [place] [address] 02/15/2025 10:00 AM EDT Office Visit [facility] Disorders Ctr [facility] 132 [facility] [place] [phone] Debby Cornejo, 132 [facility] [place] [address] Scheduled Procedures Name Priority Associated Diagnoses Date/Ti me COLONOSCOPY FLEXIBLE PROXIMA L DIAGNOSTIC Recall History of colonic polyps Health Maintenance Due Date Last Done Comments Cologuard 01/12/1997 Sigmoidoscopy 01/12/1997 Fecal Occult Blood Test 11/18/2023 11/18/19 23, 11/17/2022, 03/16/2022, Additional history exists CKD PHOS USE SMARTSET 99765 05/05/2024 09/0 02/2023, 02/02/2023, 01/11/2022, Additional history [...] COPD 05/03/2025 05/03/2024 CKD HGB USE SMARTSET 70258 06/18/202506/18, 06/18/2024, 05/22/2024, Additional history exists DTap/Tdap Vaccines (2 - [...] Diagnoses Diagnosis Type 2 diabetes mellitus with diabetic peripheral angiopathy without gangrene, with long-term current use of insulin (HCC)- Primary Type 2 diabetes mellitus with hemoglobin A1c goal of less than 7.5% (HCC) documented in this encounter Advance Directives [...] Power of Attor kwabena? No Care Teams Building Trades Instructor Relationship Specialty Start Date End Date Javy Moscoso DO [address] [place] [address] PCP - General Family Medicine 07/04/23 documented as of this encounter
--- OUTSIDE RECORDS SUMMARY | 2024-11-03 09:43 | External Medical Summary | Summary of Care ---
Author Name Unknown Organization [facility] Address [address] [place] [address] Phone [phone] Care Team Providers Care Sales And Marketing Vice President Name Role Phone DanisJavy Primary Care Provider [phone] Reason for Visit * Reason Onset Date Comments Test Results Lab 07/20/2024 Encounter Details Date Type Department Care Team (Late st Contact Info) Description 07/20/2024 Telephone Hematology/Oncology [facility] 200 [facility] [place] [address] Katt Mullen CRNP [address] [place] [address] Test Results Lab Allergies Active Allergy Reactions Criticality Noted Date Comments Lisinopril Unknown Low 11/15/2022 Verapamil Medium 06/26/2020 Heart Block documented as of this encounter (statuses as of 07/20/2024) Medications CPAP every night at bedtime. Active Acetaminophen 500 MG Oral Tablet (Tylenol) Take 1 to 2 tablets by mouth every 6 hours as needed 2 Active Alphionuch Ultra 2 w/Device Kit USE DIRECTED TO TEST BLOOD SUGARS 1 Each 09/09/2023 11:01 AM EST 4 Active Pen [place] 31G X 5 MMIndications:Typ e 2 diabetes [...] every 10 days. E11.9 Active Dexcom G7 Stonemason Helper Device Use as directed. Use as [...] 4 Active Vitamin D (Ergocalciferol) 1.25 MG (40777 UT) Oral Capsule (Drisdol)Indicati ons:Vitamin D deficiency [...] mgIndications:ILD (interstitial lung disease) ([facility]),BEARDEN (dyspnea on exertion) 2.5 mg NEBULIZER [...] 12/07/2022 Bilateral impacted cerumen 10/22/2022 Atherosclerosis of [place] co ronary artery without angina pectoris 07/15/2022 [...] (PFIZER-Comirnaty) 05/22/2024,02/22/2024,06/16/2023 Pneumococcal Conjugate Vacci ne, 20-valent ([id number]) 12/07/2022 Pneumococcal Polysaccharide PPV23 (Pneumovax) 09/08/2020 Season [...] 10:20 AM EST Order received for Monoferric Anthon plan built and routed to provider Awaiting [...] 2:00 PM EST Office Visit Nephrology, [place] 200 [facility] [place] [address] Augusto Lerner MD 200 [facility] [place] [address] 07/30/2024 8:50 AM EST Office Visit Family Practice [address] [place] [address] 293 [place] [address] College, Pharmacist [address] [place] [address] 09/07/2024 8:40 AM EST Office Visit Family Practice [place] [address] [place] [address] Javy Moscoso DO [address] [place] [address] 09/14/2024 11:30 AM EST Office Visit Hematology/Oncology [facility] [address] [place] [address] Katt Mullen CRNP [address] [place] [address] 10/03/2024 11:00 AM EST Nurse Only Family Practice 65 [facility] [place] [address] [place] [phone] Mary Ellen Sorenson, JOAQUIN [address] [facility] [place] [address] 02/15/2025 10:00 AM EDT Office Visit Sleep Disorders Ctr [facility] [address] [place] [address] Debby Cornejo DO [address] [place] [address] Scheduled Procedures Name Priority Associated Diagnoses Date/Ti me COLONOSCOPY FLEXIBLE PROXIMA L DIAGNOSTIC Recall History of colonic polyps Health Maintenance Due Date Last Done Comments Cologuard 01/12/1997 Sigmoidoscopy 01/12/1997 Fecal Occult Blood Test 11/18/2023 11/18/19 23, 11/17/2022, 03/16/2022, Additional history exists CKD PHOS USE SMARTSET 58107 05/05/2024 090 02/2023, 02/02/2023, 01/11/2022, Additional history [...] COPD 05/03/2025 05/03/2024 CKD HGB USE SMARTSET 94933 07/19/202507/19, 07/19/2024, 06/18/2024, Additional history exists DTap/Tdap [...] Power of Attor kwabena? No Care Teams Sales And Marketing Vice President Relationship Specialty Start Date End Date Javy Moscoso DO [address] [place] [address] PCP - General Family Medicine 07/04/23 documented as of this encounter
--- OUTSIDE RECORDS SUMMARY | 2024-11-03 09:43 | External Medical Summary | Summary of Care ---
Author Name Unknown Organization [facility] Address [address] [place] [address] Phone [phone] Care Team Providers Care Veterinary Practitioner Name Role Phone Javy Moscoso DO Primary Care Provider Reason for Visit * Reason Comments Medication Refill Encounter Details Date Type Department Care Team (Late st Contact Info) Description 07/16/2024 Refill Family Practice [facility] [address] [place] [address] Javy Moscoso DO [address] [place] [address] HTN, goal below 140/90; Type 2 diabetes mellitus with stage 3b chronic kidney disease, without long-term current use of insulin (HCC) Allergies Active Allergy Reactions Criticality Noted Date Comments Lisinopril Unknown Low 11/15/2022 Verapamil Medium 06/26/2020 Heart Block documented as of this encounter (statuses as of 07/17/2024) Medications CPAP every night at bedtime. Active Acetaminophen 500 MG Oral Tablet (Tylenol) Take 1 to 2 tablets by mouth every 6 hours as needed 2 Active TrendKiteuch Ultra 2 w/Device Kit USE DIRECTED TO TEST BLOOD SUGARS 1 Each 09/09/2023 11:01 AM EST 4 Active Pen [place] 31G X 5 MMIndications:Ty pe 2 diabetes [...] every 10 days. E11.9 Active Dexcom G7 Chain Sales Representative Device Use as directed. Use as [...] mouth in the morning. 90 Capsule 3 07/17/2024 10:38 AM EST 4 Active Gabapentin 600 MG [...] 4 Active Vitamin D (Ergocalciferol) 1.25 MG (09893 UT) Oral Capsule (Drisdol)Indicat ions:Vitamin D deficiency [...] and evening meals. 180 Tablet 3 4 Active metFORMIN HCl ER 500 MG Oral Tablet Extended Release 24 Hour (Glucophage XR)Indications:T ype 2 diabetes mellitus with stage 3b chronic kidney disease, without long-term current use of insulin ([facility]) Take 1 Tablet by mouth daily. 90 Tablet 3 4 Active Empagliflozin 25 MG Oral Tablet (Jardiance)Indic ations:Type 2 diabetes mellitus with hyperglycemia, without long-term current use of insulin ([facility]),Type 2 diabetes mellitus with stage 3b chronic kidney disease, without long-term current use of insulin ([facility]) Take 1 Tablet by mouth in the morning. 90 Tablet 3 07/17/2024 1:20 PM EST 4 Active metFORMIN HCl ER 500 MG Oral Tablet Extended Release 24 Hour (Glucophage XR)Indications:T ype 2 diabetes mellitus with stage 3b chronic kidney disease, without long-term current use of insulin ([facility]) Take 1 Tablet by mouth at bedtime. [...] as of this encounter (statuses as of 07/17/2024) Active Problems Problem Noted Date Diagnosed Date [...] 12/07/2022 Bilateral impacted cerumen 10/22/2022 Atherosclerosis of [place] co ronary artery without angina pectoris 07/15/2022 [...] as of this encounter (statuses as of 07/17/2024) Resolved Problems Problem Noted Date Diagnosed Date [...] as of this encounter (statuses as of 07/17/2024) Immunizations Name Administration Dates Next Due COVID-19 mRNA, LNP-s, No Pre serve, 2-Dose Series ([employer]) 07/03/2021,12/27/2020,12/06/2020 COVID-19, MRNA-LNP, PF, 30 M CG/0.3 mL, 12 YRS AND ABOVE, IM (PFIZER-Comirnaty) 05/22/2024,02/22/2024,06/16/2023 Pneumococcal Conjugate Vacci ne, 20-valent ([id number]) 12/07/2022 Pneumococcal Polysaccharide PPV23 (Pneumovax) 09/08/2020 Season [...] encounter Miscellaneous Notes * Telephone Encounter - Gita Diaz RPh - 07/17/2024 2:36 PM ESTSigned Prescriptions: Disp Refills Carvedilol 25 MG Oral Tablet (Coreg) 180 Ta*3 Sig: Take 0.5 Tablets by mouth 2 times a day with morning and evening meals.Authorizing Provider: Saroj MOSCOSO User: GITA DIAZ metFORMIN HCl ER 500 MG Oral Tablet Extend*90 Tab*3 Sig: Take 1 Tablet by [facility] daily.Authorizing Provider: Saroj MOSCOSO User: GITA DIAZ documented in this encounter Plan of Treatment Upcoming Encounters Date Type Department Care Team (Late st Contact Info) Description 07/24/2024 2:00 PM EST Office Visit Nephrology, [place] [address] [place] [address] Augusto Lerner MD [address] [place] [address] 07/30/2024 8:50 AM EST Office Visit Family Practice 65 [facility] [address] College, Pharmacist 65 [address] [address] 09/07/2024 8:40 AM EST Office Visit Family Practice 65 [facility] [address] [place] [address] Javy Moscoso [address] [address] 09/14/2024 11:30 AM EST Office Visit Hematology/Oncology [facility] 200 [facility] [place] [address] Katt Mullen CRNP 400 [facility] [place] [address] 10/03/2024 11:00 AM EST Nurse Only Family Practice 65 [facility] [address] [place] [address] Mary Ellen Sorenson, JOAQU[place] 293 [facility] [place] [address] 02/15/2025 10:00 AM EDT Office Visit Sleep Disorders Ctr [facility] 132 [facility] [place] [phone] Debby Cornejo 132 [facility] [place] [address] Scheduled Procedures Name Priority Associated Diagnoses Date/Ti me COLONOSCOPY FLEXIBLE PROXIMA L DIAGNOSTIC Recall History of colonic polyps Health Maintenance Due Date Last Done Comments Cologuard 01/12/1997 Sigmoidoscopy 01/12/1997 Fecal Occult Blood Test 11/18/2023 11/18/19 23, 11/17/2022, 03/16/2022, Additional history exists CKD PHOS USE SMARTSET 55594 05/05/2024 09/0 02/2023, 02/02/2023, 01/11/2022, Additional history [...] COPD 05/03/2025 05/03/2024 CKD HGB USE SMARTSET 93616 06/18/202506/18, 06/18/2024, 05/22/2024, Additional history exists DTap/Tdap [...] HTN, goal below 140/90 Unspecified essential hypertension Type 2 diabetes mellitus with stage 3b [...] Power of Attor kwabena? No Care Teams Veterinary Practitioner Relationship Specialty Start Date End Date Javy Moscoso DO [address] [place] [phone] PCP - General Family Medicine 07/04/23 documented as of this encounter
--- OUTSIDE RECORDS SUMMARY | 2024-11-03 09:43 | External Medical Summary | Summary of Care ---
Author Name Unknown Organization [facility] Address [address] [place] [address] Phone [phone] Care Team Providers Care Quality Engineering Manager Name Role Phone Danis, Javy Primary Care Provider + [phone] Reason for Visit * Reason Comments Outpatient Testing Encounter Details Date Type Department Care Team ([facility] st Contact Info) Description 07/19/2024 9:10 AM EST [facility] [phone] [address] [address] Iron deficiency anemia due to chronic blood loss Allergies Active Allergy Reactions Criticality Noted Date Comments Lisinopril Unknown Low 11/15/2022 Verapamil Medium 06/26/2020 Heart Block documented as of this encounter (statuses as of 07/19/2024) Medications CPAP every night at bedtime. Active Acetaminophen 500 MG Oral Tablet (Tylenol) Take 1 to 2 tablets by mouth every 6 hours as needed 2 Active 3LeafTouch Ultra 2 w/Device Kit USE DIRECTED TO TEST BLOOD SUGARS 1 Each 09/09/2023 11:01 AM EST 4 Active Pen [place] 31G X 5 MMIndications:Typ e 2 diabetes mellitus with hyperglycemia, with long-term current use of insulin ([facility]) Use as directed. Use as [...] every 10 days. E11.9 Active Dexcom G7 Manager Student Services Device Use as directed. Use as directed [...] 4 Active Vitamin D (Ergocalciferol) 1.25 MG (87791 UT) Oral Capsule (Drisdol)Indicati ons:Vitamin D deficiency [...] 180 Tablet 3 07/17/2024 4:00 PM EST Active metFORMIN HCl ER 500 MG Oral Tablet Extended Release 24 Hour (Glucophage XR)Indications:Ty pe 2 diabetes mellitus with stage 3b chronic kidney disease, without long-term current use of insulin (HCC) Take 1 Tablet by mouth daily. 90 Tablet 3 07/17/2024 4:00 PM EST Active Empagliflozin 25 MG Oral Tablet (Jardiance)Indica [...] solution 2.5 mgIndications:ILD (interstitial lung disease) ([facility]),BEARDEN (dyspnea on exertion) 2.5 mg [...] (PFIZER-Comirnaty) 05/22/2024,02/22/2024,06/16/2023 Pneumococcal Conjugate Vacci ne, 20-valent ([id number]) 12/07/2022 Pneumococcal Polysaccharide PPV23 (Pneumovax) 09/08/2020 Season [...] 07/24/2024 2:00 PM EST Office Visit Nephrology, [facility] 200 [facility] [place] [address] Augusto Lerner MD 200 [facility] [place] [address] 07/30/2024 8:50 AM EST Office Visit Family Practice 65 [facility] [address] [place] [phone] College, Pharmacist 65 [address] [address] 09/07/2024 8:40 AM EST Office Visit Family Practice [address] [place] [address] [facility] [address] [place] [phone] Javy Moscoso DO [address] [place] [address] 09/14/2024 11:30 AM EST Office Visit Hematology/Oncology [facility] [place] 200 [facility] [place] [phone] Katt Mullen CRNP 400 [facility] [place] [phone] 10/03/2024 11:00 AM EST Nurse Only Family Practice 65 [facility] [address] [place] [phone] Mary Ellen Sorenson, JOAQUIN 293 [facility] [address] 02/15/2025 10:00 AM EDT Office Visit [facility]tr [facility] 132 [facility] [place] [phone] Debby Cornejo DO 132 [facility] [place] [address] Pending Results Name Type Priority Associated Diagnoses Date /Time CBC WITH WBC DIFFERENTIAL Lab STAT Iron deficiency anemia due to chronic blood loss 07/19/2024 8:25 AM EST IRON SCREEN, INCLUDING TIBC Lab STAT Iron deficiency anemia due to chronic blood loss 07/19/2024 8:25 AM EST FERRITIN Lab STAT Iron deficiency anemia due to chronic blood loss 07/19/2024 8:25 AM EST CBC Lab STAT Iron deficiency anemia due to chronic blood loss 07/19/2024 8:25 AM EST DIFFERENTIAL, AUTOMATED Lab STAT Iron deficiency anemia due to chronic blood loss 07/19/2024 8:25 AM EST Scheduled Procedures Name Priority Associated Diagnoses Date/Ti me COLONOSCOPY FLEXIBLE PROXIMA L DIAGNOSTIC Recall History of colonic polyps Health Maintenance Due Date Last Done Comments Cologuard 01/12/1997 Sigmoidoscopy 01/12/1997 Fecal Occult Blood Test 11/18/2023 11/18/19, 11/17/2022, 03/16/2022, Additional history exists CKD PHOS USE SMARTSET 79485 05/05/2024 09/0 02/2023, 02/02/2023, 01/11/2022, Additional history exists Diabetic Foot Exam 06/16/2024 06/16/2023, 06/16/2023 Albumin/Creatinine Ratio 09/09/2024 09/09/2023, 1111/2021 Adult Wellness Visit 09/28/2024 09/28/2023 HbA1c 10/20/2024 04/19/2024, 11/27, 09/08/2023, Additional history exists GFR 12/17/2024 06/18/2024, 082 09/2023, 03/09/2024, Additional history exists Depression Screening 12/21/2024 12/22/2023 Diabetic Eye Exam 03/06/2025 03/06/2024, , 08/24/2023, Additional history exists Colonoscopy 05/03/2025 05/03/2024, 12/2023, 12/10/2022, Additional history exists Colorectal Cancer Screening 05/03/2025 O2 ASSESSMENT COMPLETED IN PAST YEAR FOR COPD 05/03/2025 05/03/2024 CKD HGB USE SMARTSET 71641 06/18/202506/18, 06/18/2024, 05/22/2024, Additional history exists DTap/Tdap [...] Power of Attor kwabena? No Care Teams Quality Engineering Manager Relationship Specialty Start Date End Date Javy Moscoso DO [address] [place] [address] PCP - General Family Medicine 07/04/23 documented as of this encounter
--- OUTSIDE RECORDS SUMMARY | 2024-11-03 09:43 | External Medical Summary | Summary of Care ---
Author Name Unknown Organization [facility] Address [address] [place] [address] Phone [phone] Care Team Providers Care Administrative Services Assistant Name Role Phone Danis, Javy Primary Care Provider Encounter Details Date Type Department Care Team (Late st Contact Info) Description 07/05/2024 Population Health External Data Unspecified Department Allergies Active Allergy Reactions Criticality Noted Date Comments Lisinopril Unknown Low 11/15/2022 Verapamil Medium 06/26/2020 Heart Block documented as of this encounter (statuses as of 07/12/2024) Medications CPAP every night at bedtime. Active Acetaminophen 500 MG Oral Tablet (Tylenol) Take 1 to 2 tablets by mouth every 6 hours as needed 2 Active Empagliflozin 25 MG Oral Tablet (Jardiance)Indica tions:Type 2 diabetes mellitus with hyperglycemia, without long-term current use of insulin (HCC),Type 2 diabetes mellitus with stage 3b chronic kidney disease, without long-term current use of insulin (HCC) Take 1 Tablet by mouth in the morning. 100 Tablet 3 04/19/2024 8:56 AM EDT 3 Active OneTouch Ultra 2 w/Device Kit USE DIRECTED TO TEST BLOOD SUGARS 1 Each 09/09/2023 11:01 AM EST 4 Active Pen [place] 31G X 5 MMIndications:Typ e 2 diabetes [...] every 10 days. E11.9 Active Dexcom G7 Cutter Plastics Rolls Device Use as directed. Use as directed to monitor blood sugars daily Active OneTouch Ultra In Vitro Strip (Glucose Blood)Indications :Type 2 diabetes mellitus with hyperglycemia, with long-term current use of insulin (HCC) USE DIRECTED UP TO FOUR TIMES DAILY FOR HOME GLUCOSE TESTING 400 Strip 3 12/31/2023 8:19 AM EDT 4 Active metFORMIN HCl ER 500 MG Oral Tablet Extended Release 24 Hour (Glucophage XR)Indications:Ty pe 2 diabetes mellitus with stage 3b chronic kidney disease, without long-term current use of insulin (HCC) Take 1 Tablet by mouth at bedtime. 4 Active Docusate Sodium 100 MG Oral [...] 3 05/30/2024 7:22 AM EDT 4 Active Carvedilol 25 MG Oral Tablet (Coreg)Indication s:HTN, goal below 140/90 Take 1/2 tab twice daily 4 Active Atorvastatin Calcium 40 MG Oral [...] 2 times a day. 60 mL 5 06/18/2024 3:58 PM EDT 4 Active Repaglinide 0.5 MG Oral Tablet [...] mouth in the morning. 90 Capsule 3 05/03/2024 9:05 AM EDT 4 Active Gabapentin 600 MG Oral Tablet [...] 4 Active Vitamin D (Ergocalciferol) 1.25 MG (75997 UT) Oral Capsule (Drisdol)Indicati ons:Vitamin D deficiency Take 1 Capsule by mouth Every Month. 6 Capsule 3 06/11/2024 6:55 AM EDT 4 Active PreserVision AREDS 2+Multi Vit Oral Capsule Take 1 Capsule by mouth in the morning and 1 Capsule before bedtime. 180 Capsule 3 4 Active Hospital, Clinic, or Other Facility Administered Medication Ordered Dose Route Frequency Start Date End Date Status Albuterol Sulfate (Proventil) (2.5 MG/3ML) 0.083% inhalation solution 2.5 mgIndications:ILD (interstitial lung disease) (HCC),BEARDEN (dyspnea on exertion) 2.5 mg NEBULIZER Q4H PRN 12/12/2023 Act jose documented as of this encounter (statuses as of 07/12/2024) Active Problems Problem Noted Date Diagnosed Date [...] as of this encounter (statuses as of 07/12/2024) Resolved Problems Problem Noted Date Diagnosed Date [...] as of this encounter (statuses as of 07/12/2024) Immunizations Name Administration Dates Next Due COVID-19 mRNA, LNP-s, No Pre serve, 2-Dose Series (Testlio) 07/03/2021,12/27/2020,12/06/2020 COVID-19, MRNA-LNP, PF, 30 M CG/0.3 mL, 12 YRS AND ABOVE, IM ([facility]) 05/22/2024,02/22/2024,06/16/2023 Pneumococcal Conjugate Vacci ne, 20-valent ([id number]) 12/07/2022 Pneumococcal Polysaccharide PPV23 (Pneumovax) 09/08/2020 Season [...] AM EST Office Visit Family Practice 65 [facility] [place] 293 [place] [facility], [place] [phone] College, Pharmacist 65 [facility] 293 [facility], [place] [address] 07/24/2024 2:00 PM EST Office Visit Nephrology, [address] [address] Augusto Lerner MD 200 [facility] [place] [address] 09/07/2024 8:40 AM EST Office Visit Family Practice [address] [place] [address] [address] [place] [address] Javy Moscoso DO [address] [place] [address] 09/14/2024 11:30 AM EST Office Visit Hematology/Oncology [facility] 200 [facility] [place] [phone] Katt Mullen CRNP 400 [facility] [place] [address] 10/03/2024 11:00 AM EST Nurse Only Family Practice [address] [place] [address] [address] [place] [address] Mary Ellen Sorenson, JOAQUIN 293 [facility] [place] [address] 02/15/2025 10:00 AM EDT Office Visit [facility] Disorders Ctr [facility] 132 [facility] [place] [phone] Debby Cornejo DO 132 [facility] [place] [address] Scheduled Procedures Name Priority Associated Diagnoses Date/Ti me COLONOSCOPY FLEXIBLE PROXIMA L DIAGNOSTIC Recall History of colonic polyps Health Maintenance Due Date Last Done Comments Cologuard 01/12/1997 Sigmoidoscopy 01/12/1997 Fecal Occult Blood Test 11/18/2023 11/18/19, 11/17/2022, 03/16/2022, Additional history exists CKD PHOS USE SMARTSET 48121 05/05/2024 09/0 02/2023, 02/02/2023, 01/11/2022, Additional history [...] COPD 05/03/2025 05/03/2024 CKD HGB USE SMARTSET 10675 06/18/202506/18, 06/18/2024, 05/22/2024, Additional history exists DTap/Tdap [...] Power of Attor kwabena? No Care Teams Administrative Services Assistant Relationship Specialty Start Date End Date Javy Moscoso DO [address] [place] [address] PCP - General Family Medicine 07/04/23 documented as of this encounter
--- OUTSIDE RECORDS SUMMARY | 2024-11-03 09:43 | External Medical Summary ---
Author Name Unknown Address Unknown Organization K01:LABORATORY [facility] [place] - [address] [place] [facility] [place] [address] Laboratory Report Ordering Provider Test Date Status MONTSE MEJIA 07/19/2024 08:25:19 Final Observation Date Value Abnormality Reference (Units ) Status SYNC LEUKOCYTES IN BLOOD BY AUTOMATED COUNT 07/19/2024 08:25:19 5.28 4.00-10.80 (K/uL) Final Segs 07/19/2024 08:25:19 63.5 40.0-75.0 (%) Final Lymphs % 07/19/2024 08:25:19 22.0 18.0-42.0 (%) Final Monos 07/19/2024 08:25:19 10.4 1.0-11.0 (%) Final Eosinophils 07/19/2024 08:25:19 2.8 0.0-6.0 (%) Final Basos 07/19/2024 08:25:19 1.1 0.0-2.0 (%) Final Immature Granulocyte, Percent 07/19/2024 08:25:19 0.2 0.0-2.0 (%) Final Absolute Segs 07/19/2024 08:25:19 3.35 1.80-7.70 (K/uL) Final Lymphs, absolute 07/19/2024 08:25:19 1.16 1.00-4.80 (K/ul) Final Monos, Abs 07/19/2024 08:25:19 0.55 0.00-1.10 (K/uL) Final Eos, Abs 07/19/2024 08:25:19 0.15 0.00-0.70 (K/uL) Final Basos, Abs 07/19/2024 08:25:19 0.06 0.00-0.20 (K/uL) Final Immature Granulocytes, Number 07/19/2024 08:25:19 0.01 0.00-0.20 (K/uL) Final Performing Location LABORATORY [facility] [place] - [address] [facility] [address]
--- OUTSIDE RECORDS SUMMARY | 2024-11-03 09:43 | External Medical Summary ---
Author Name Unknown Address Unknown Organization K01:LABORATORY [facility] [place] - [address] [place] [address] Laboratory Report Ordering Provider Test Date Status MONTSE MEJIA 07/19/2024 08:25:19 Final Observation Date Value Abnormality Reference (Units ) Status Iron 07/19/2024 08:25:19 32 Below low normal 45-176 (ug/dL) Final Iron-binding capacity 07/19/2024 08:25:19 342 250-425 (ug/dL) Final Transferrin Sat % 07/19/2024 08:25:19 9 Below low normal 15-55 (%) Final Performing Location LABORATORY [facility] [place] - [address] [place] [address]
--- OUTSIDE RECORDS SUMMARY | 2024-11-03 09:43 | External Medical Summary ---
Author Name Unknown Address Unknown Organization K01:LABORATORY [facility] [place] - [address] [place] [address] Laboratory Report Ordering Provider Test Date Status JACKIEMONTSE 07/19/2024 08:25:19 Final Observation Date Value Abnormality Reference (Units ) Status Ferritin 07/19/2024 08:25:19 48 30-400 (ng /mL) Final Performing Location LABORATORY [facility] - [address] [place] [address]
--- OUTSIDE RECORDS SUMMARY | 2024-11-03 09:43 | External Medical Summary | Summary of Care ---
Author Name Unknown Organization [facility] Address [address] [place] [address] Phone [phone] Care Team Providers Care Filler Spreader Name Role Phone Javy Moscoso DO Primary Care Provider + [phone] Encounter Details Date Type Department Care Team (Late st Contact Info) Description 07/20/2024 Telephone Hematology/Oncology [facility] [place] 200 [facility] [place] [address] Katt Mullen CRNP 400 [place] [address] Allergies Active Allergy Reactions Criticality [...] every 10 days. E11.9 Active Dexcom G7 Family Life Educator Device Use as directed. Use as directed [...] 4 Active Vitamin D (Ergocalciferol) 1.25 MG (55740 UT) Oral Capsule (Drisdol)Indicati ons:Vitamin D deficiency [...] 2.5 mgIndications:ILD (interstitial lung disease) ([facility]),BEARDEN (dyspnea on exertion) 2.5 mg [...] 12/07/2022 Bilateral impacted cerumen 10/22/2022 Atherosclerosis of [place] ronary artery without angina pectoris 07/15/2022 [...] Per CKD protocol Hypertensive heart disease w [facility] congestive heart failure 10/21/2021 07/08/2022 COPD, [...] mRNA, LNP-s, No Pre serve, 2-Dose Series (Knovel) 07/03/2021,12/27/2020,12/06/2020 COVID-19, MRNA-LNP, PF, 30 M CG/0.3 mL, 12 YRS AND ABOVE, IM (PFIZER-Comirnaty) 05/22/2024,02/22/2024,06/16/2023 Pneumococcal Conjugate Vacci ne, 20-valent ([id number]) 12/07/2022 Pneumococcal Polysaccharide PPV23 (Pneumovax) 09/08/2020 Season [...] 07/24/2024 2:00 PM EST Office Visit Nephrology, [facility] 200 [facility] [place] [address] Augusto Lerner MD 200 [facility] [place], [place] [address] 07/30/2024 8:50 AM EST Office Visit Family Practice [address] [place] [address] [place] [phone] College, Pharmacist [address] [place] [address], [place] [address] 09/07/2024 8:40 AM EST Office Visit Family Practice 65 [facility] [place] [address] [place] [phone] Javy Moscoso DO [address] [place] [address] 09/14/2024 11:30 AM EST Office Visit Hematology/Oncology [facility] 200 [facility] [place] [phone] Katt Mullen CRNP [address] [place], [place] [address] [phone] 10/03/2024 11:00 AM EST Nurse Only Family Practice 65 [facility] [place] [address] [place] [address] Mary Ellen Sorenson RN 293 [place] [phone] 02/15/2025 10:00 AM EDT Office Visit Sleep Disorders Ctr [facility] 132 [facility] [place] [phone] Chantal Debbysintia Deal, DO [address] [place] [address] Scheduled Procedures Name Priority Associated Diagnoses Date/Ti me COLONOSCOPY FLEXIBLE PROXIMA L DIAGNOSTIC Recall History of colonic polyps Health Maintenance Due Date Last Done Comments Cologuard 01/12/1997 Sigmoidoscopy 01/12/1997 Fecal Occult Blood Test 11/18/2023 11/18/19, 11/17/2022, 03/16/2022, Additional history exists CKD PHOS USE SMARTSET 59196 05/05/2024 090 02/2023, 02/02/2023, 01/11/2022, Additional history [...] COPD 05/03/2025 05/03/2024 CKD HGB USE SMARTSET 37929 07/19/202507/19, 07/19/2024, 06/18/2024, Additional history exists DTap/Tdap [...] Power of Attor kwabena? No Care Teams Filler Spreader Relationship Specialty Start Date End Date Javy Moscoso DO [address] [place] [address] PCP - General Family Medicine 07/04/23 documented as of this encounter
--- OUTSIDE RECORDS SUMMARY | 2024-11-03 09:43 | External Medical Summary | Summary of Care ---
Author Name Unknown Organization [facility] Address [address] [place] [address] Phone [phone] Care Team Providers Care Rubber Compounder Name Role Phone Javy Moscoso DO Primary Care Provider Reason for Visit * Reason Comments Medication Refill Encounter Details Date Type Department Care Team (Late st Contact Info) Description 07/16/2024 Refill Family Practice 65 [facility] [address] [place] [address] Javy Moscoso DO [address] [place] [phone] Type 2 diabetes mellitus with hyperglycemia, without long-term current use of insulin ([facility]); Type 2 diabetes mellitus with stage 3b chronic kidney disease, without long-term current use of insulin ([facility]) Allergies Active Allergy Reactions Criticality Noted Date Comments Lisinopril Unknown Low 11/15/2022 Verapamil Medium 06/26/2020 Heart Block documented as of this encounter (statuses as of 07/16/2024) Medications CPAP every night at bedtime. Active Acetaminophen 500 MG Oral Tablet (Tylenol) Take 1 to 2 tablets by mouth every 6 hours as needed Active [employer] Ultra 2 w/Device Kit USE DIRECTED TO TEST BLOOD SUGARS 1 Each 09/09/2023 11:01 AM EST 4 Active Pen [place] 31G X 5 MMIndications:Ty pe 2 diabetes [...] every 10 days. E11.9 Active Dexcom G7 Rooter Operator Device Use as directed. Use as [...] 4 Active Vitamin D (Ergocalciferol) 1.25 MG (95399 UT) Oral Capsule (Drisdol)Indicat ions:Vitamin D deficiency [...] in the morning. 90 Tablet 3 4 Active Empagliflozin 25 MG Oral Tablet (Jardiance)Indic ations:Type 2 diabetes mellitus with hyperglycemia, without long-term current use of insulin (HCC),Type 2 diabetes mellitus with stage 3b chronic kidney disease, without long-term current use of insulin (HCC) Take 1 Tablet by mouth in the morning. 100 Tablet 3 04/19/2024 8:56 AM EDT 3 024 Discontin ued(Refil l) Hospital, Clinic, or Other Facility Administered Medication Ordered Dose Route Frequency Start Date End Date Status Albuterol Sulfate (Proventil) (2.5 MG/3ML) 0.083% inhalation solution 2.5 mgIndications:ILD (interstitial lung disease) ([facility]),BEARDEN (dyspnea on exertion) 2.5 mg NEBULIZER Q4H PRN 12/12/2023 Act jose documented as of this encounter (statuses as of 07/16/2024) Active Problems Problem Noted Date Diagnosed Date [...] 12/07/2022 Bilateral impacted cerumen 10/22/2022 Atherosclerosis of [place] co ronary artery without angina pectoris 07/15/2022 [...] as of this encounter (statuses as of 07/16/2024) Resolved Problems Problem Noted Date Diagnosed Date [...] as of this encounter (statuses as of 07/16/2024) Immunizations Name Administration Dates Next Due COVID-19 mRNA, LNP-s, No Pre serve, 2-Dose Series (ProteoMediX) 07/03/2021,12/27/2020,12/06/2020 COVID-19, MRNA-LNP, PF, 30 M CG/0.3 mL, 12 YRS AND ABOVE, IM (PFIZER-Comirnaty) 05/22/2024,02/22/2024,06/16/2023 Pneumococcal Conjugate Vacci ne, 20-valent ([id number]) 12/07/2022 Pneumococcal Polysaccharide PPV23 (Pneumovax) 09/08/2020 Season [...] No 12/22/2023 Does the household have a [facility] center[facility] source of income? (Household - [...] Telephone Encounter - Javy Moscoso DO - 07/16/2024 12:28 PM ESTSigned Prescriptions: Disp Refills Empagliflozin 25 MG Oral Tablet (Jardiance)90 Tab*3 Sig: Take 1 Tablet by mouth in the morning. Authorizing Provider: JAVY MOSCOSO * Telephone Encounter - Nhung Jose CCMA - 07/16/2024 11:00 AM EST Pending Prescriptions: Disp Refills Jardiance 25 MG Oral Tablet (Empagliflozin)90 Tab*3 Sig: Take 1 Tablet by mouth in the morning. * Telephone Encounter - Nhung Jose CCMA - 07/16/2024 11:00 AM EST Did you pend patient's preferred pharmacy and medication before forwarding?yes Pharmacy: [facility] Pending Prescriptions: Disp Refills Empagliflozin 25 MG Oral Tablet (Jardianc*90 Tab*3 Sig: Take 1 Tablet by mouth in the morning. Last Visit: 06/08/2024 (in office), Visit date not found (telemedicine) Next Visit: 09/07/2024 If no future appointments scheduled, and last [...] AM ALT 32 08/20/2019 09:22 AM HGBA1C 5.7 (H) 04/19/2024 09:44 AM HGBA1C 6.9 (H) 09/08/2020 03:23 PM documented in this encounter Plan of Treatment Upcoming Encounters Date Type Department Care Team (Late st Contact Info) Description 07/24/2024 2:00 PM EST Office Visit [facility]rology[facility] [address] [place] [address] Augusto Lerner MD [address] [place] [address] 07/30/2024 8:50 AM EST Office Visit Family Practice 65 [facility] 293 [facility] [phone] College, Pharmacist 65 [address] [address] 09/07/2024 8:40 AM EST Office Visit Family Practice 65 [facility] [address] [place] [address] Javy Moscoso DO [address] [place] [address] 09/14/2024 11:30 AM EST Office Visit Hematology/Oncology [facility] 200 [facility] [place] [phone] Katt Mullen CRNP 400 [facility] [place] [address] 10/03/2024 11:00 AM EST Nurse Only Family Practice 65 [facility] [address] [place] [address] Mary Ellen Sorenson RN 293 [place] [phone] 02/15/2025 10:00 AM EDT Office Visit Sleep Disorders Ctr [facility] [address] [place] [phone] Debby Cornejo DO [address] [facility] [place] [address] Scheduled Procedures Name Priority Associated Diagnoses Date/Ti me COLONOSCOPY FLEXIBLE PROXIMA L DIAGNOSTIC Recall History of colonic polyps Health Maintenance Due Date Last Done Comments Cologuard 01/12/1997 Sigmoidoscopy 01/12/1997 Fecal Occult Blood Test 11/18/2023 11/18/19 23, 11/17/2022, 03/16/2022, Additional history exists CKD PHOS USE SMARTSET 72648 05/05/2024 0902/2023, 02/02/2023, 01/11/2022, Additional history exists [...] COPD 05/03/2025 05/03/2024 CKD HGB USE SMARTSET 58963 06/18/202506/18, 06/18/2024, 05/22/2024, Additional history exists DTap/Tdap [...] Diagnosis Type 2 diabetes mellitus with hyperglycemia, without long-term current use of insulin (HCC) Type 2 diabetes mellitus with stage [...] Power of Attor kwabena? No Care Teams Rubber Compounder Relationship Specialty Start Date End Date Javy Moscoso DO [address] [place] [address] PCP - General Family Medicine 07/04/23 documented as of this encounter
--- OUTSIDE RECORDS SUMMARY | 2024-11-03 09:44 | External Medical Summary ---
Author Name Unknown Address Unknown Organization [id number]:LABORATORY [facility] [place] - [address] [facility] [address] [facility] [address] Laboratory Report Ordering Provider Test Date Status MONTSE MEJIA 06/18/2024 07:57:57 Final Observation Date Value Abnormality Reference (Units ) Status WBC, Total 06/18/2024 07:57:57 5.44 4.00-10.80 (K/uL) Final RBC 06/18/2024 07:57:57 4.32 4.50-5.25 (M/uL) Final Hemoglobin 06/18/2024 07:57:57 13.0 Below low normal 14.0-16.8 (g/dL) Final HCT 06/18/2024 07:57:57 43.7 40.0-48.4 (%) Final MCV 06/18/2024 07:57:57 101.2 82.0-99.5 (fL) Final MCH 06/18/2024 07:57:57 30.1 27.0-34.0 (pg) Final MCHC 06/18/2024 07:57:57 29.7 32.0-36.0 (g/dL) Final RDW 06/18/2024 07:57:57 13.9 11.5-15.5 (%) Final Platelets 06/18/2024 07:57:57 144 140-400 (K/uL) Final MPV 06/18/2024 07:57:57 14.3 6.6-11.1 (fL) Final Nucleated erythrocytes/100 leukocytes [Ratio] in Blood by Automated count 06/18/2024 07:57:57 0 <=0 (/100 WBCs) Final Performing Location LABORATORY [facility] [place] - [address] [place] [address]
--- OUTSIDE RECORDS SUMMARY | 2024-11-03 09:44 | External Medical Summary ---
Author Name Unknown Address Unknown Organization [id number]:LABORATORY [facility] [place] - [address] [place] [address] Laboratory Report Ordering Provider Test Date Status MONTSE MEJIA 06/18/2024 07:57:57 Final Observation Date Value Abnormality Reference (Units ) Status Iron 06/18/2024 07:57:57 153 45-176 (ug /dL) Final Iron-binding capacity 06/18/2024 07:57:57 302 250-425 (ug/dL) Final Transferrin Sat % 06/18/2024 07:57:57 51 15 -55 (%) Final Performing Location LABORATORY C - [address] [place] [address]
--- OUTSIDE RECORDS SUMMARY | 2024-11-03 09:44 | External Medical Summary ---
Author Name Unknown Address Unknown Organization [id number]:[place] [place] [address] [facility] [place] [address] Laboratory Report Ordering Provider Test Date Status HOUSTON ADEN 06/18/2024 07:57:57 Final Observation Date Value Abnormality Reference (Units ) Status BUN 06/18/2024 07:57:57 27 Above high normal 6-20 (mg/dL) Final Creatinine 06/18/2024 07:57:57 1.6 Above high normal 0.6-1.2 (mg/dL) Final Glomerular filtration rate/1.73 sq M.predicted [Volume Rate/Area] in Serum, Plasma or Blood by Creatinine-based formula (CKD-EPI) 06/18/2024 07:57:57 45 Below low normal >=60 (mL/min) Final eGFR is calculated based on the CKD-EPI 2020 equation. Sodium 06/18/2024 07:57:57 144 135-146 (m mol/L) Final Potassium 06/18/2024 07:57:57 4.5 3.5-5.1 (m mol/L) Final Cl 06/18/2024 07:57:57 103 98-107 (mm ol/L) Final CO2 06/18/2024 07:57:57 32 22-32 (mmo l/L) Final Anion gap 06/18/2024 07:57:57 9 7-15 (mmol /L) Final Glucose 06/18/2024 07:57:57 124 Above high normal 70 -120 (mg/dL) Final Albumin 06/18/2024 07:57:57 4.4 3.8-5.0 (g /dL) Final AST (Aspartate aminotransferase) 06/18/2024 07:57:57 25 10-50 (U/L) Fin al Alk Phos 06/18/2024 07:57:57 57 35-130 (U/ L) Final Bilirubin, Total 06/18/2024 07:57:57 0.3 <=1 .2 (mg/dL) Final Calcium 06/18/2024 07:57:57 9.1 8.4-10.2 ( mg/dL) Final Protein 06/18/2024 07:57:57 6.4 6.0-8.3 (g /dL) Final ALT (Alanine aminotransferase) 06/18/2024 07:57:57 26 10-50 (U/L) Adan vences Performing Location [facility] [place] [address] [facility] [address]
--- OUTSIDE RECORDS SUMMARY | 2024-11-03 09:44 | External Medical Summary ---
Author Name Unknown Address Unknown Organization K01:LABORATORY [facility] [place] - [address] [facility] [place] [address] Laboratory Report Ordering Provider Test Date Status MONTSE MEJIA 06/18/2024 07:57:57 Final Observation Date Value Abnormality Reference (Units ) Status SYNC LEUKOCYTES IN BLOOD BY AUTOMATED COUNT 06/18/2024 07:57:57 5.44 4.00-10.80 (K/uL) Final Segs 06/18/2024 07:57:57 65.6 40.0-75.0 (%) Final Lymphs % 06/18/2024 07:57:57 21.3 18.0-42.0 (%) Final Monos 06/18/2024 07:57:57 9.2 1.0-11.0 (%) Final Eosinophils 06/18/2024 07:57:57 2.4 0.0-6.0 (%) Final Basos 06/18/2024 07:57:57 1.3 0.0-2.0 (%) Final Immature Granulocyte, Percent 06/18/2024 07:57:57 0.2 0.0-2.0 (%) Final Absolute Segs 06/18/2024 07:57:57 3.57 1.80-7.70 (K/uL) Final Lymphs, absolute 06/18/2024 07:57:57 1.16 1.00-4.80 (K/ul) Final Monos, Abs 06/18/2024 07:57:57 0.50 0.00-1.10 (K/uL) Final Eos, Abs 06/18/2024 07:57:57 0.13 0.00-0.70 (K/uL) Final Basos, Abs 06/18/2024 07:57:57 0.07 0.00-0.20 (K/uL) Final Immature Granulocytes, Number 06/18/2024 07:57:57 0.01 0.00-0.20 (K/uL) Final Performing Location LABORATORY [facility] [place] - [address] [facility] [address]
--- OUTSIDE RECORDS SUMMARY | 2024-11-03 09:44 | External Medical Summary | Summary of Care ---
Author Name Unknown Organization [facility] Address [address] [place] [address] Phone [phone] Care Team Providers Care Manager User Interface Name Role Phone Javy Moscoso DO Primary Care Provider Encounter Details Date Type Department Care Team (Late st Contact Info) Description 06/12/2024 Population Health External Data Unspecified Department Allergies Active Allergy Reactions Criticality Noted Date Comments Lisinopril Unknown Low 11/15/2022 Verapamil Medium 06/26/2020 Heart Block documented as of this encounter (statuses as of 06/13/2024) Medications Medication Sig Dispensed Refills Start Date End Date Status CPAP every night at bedtime. Active Acetaminophen 500 MG Oral Tablet (Tylenol) Take 1 to 2 tablets by mouth every 6 hours as needed 03/09/2022 Active Empagliflozin 25 MG Oral Tablet (Jardiance)Indicati ons:Type 2 diabetes mellitus with hyperglycemia, without long-term current use of insulin (HCC),Type 2 diabetes mellitus with stage 3b chronic kidney disease, without long-term current use of insulin (HCC) Take 1 Tablet by mouth in the morning. 100 Tablet 3 08/05/2023 Active MobiscopeTouch Ultra 2 w/Device Kit USE DIRECTED TO TEST BLOOD SUGARS 1 Each 09/08/2023 Active Pen [place] 31G X 5 MMIndications:Type 2 diabetes mellitus with hyperglycemia, with long-term current use of insulin (HCC) Use as directed. Use as directed with glargine insulin once daily 100 Each 3 10/06/2023 Active Torsemide 20 MG Oral Tablet (Demadex)Indication s:HTN, goal below 140/90 TAKE ONE TABLET BY MOUTH EVERY MORNING 90 Tablet 3 11/02/2023 11/01/2024 Active Vitamin B-12 2500 MCG Sublingual Tablet Sublingual Place 1 Tablet under the tongue in the morning. Active Dexcom G7 Sensor Use as directed. Use as directed to monitor blood sugars daily. Replace sensor every 10 days. E11.9 Active Dexcom G7 Hosiery Bagger Device Use as directed. Use as directed to monitor blood sugars daily Active OneTouch Ultra In Vitro Strip (Glucose Blood)Indications:T ype 2 diabetes mellitus with hyperglycemia, with long-term current use of insulin (HCC) USE DIRECTED UP TO FOUR TIMES DAILY FOR HOME GLUCOSE TESTING 400 Strip 3 12/22/2023 Active metFORMIN HCl ER 500 MG Oral Tablet Extended Release 24 Hour (Glucophage XR)Indications:Type 2 diabetes mellitus with stage 3b chronic kidney disease, without long-term current use of insulin (HCC) Take 1 Tablet by mouth at bedtime. 02/22/2024 Active Docusate Sodium 100 MG Oral Capsule (Stool Softener) Take 1 Capsule by mouth in the morning and 1 Capsule before bedtime. Active Pantoprazole Sodium 40 MG Oral Tablet Delayed Release (Protonix) Take 1 Tablet by mouth in the morning and 1 Tablet before bedtime. 180 Tablet 3 02/27/2024 Active Ferrous Sulfate 325 (65 Fe) MG Oral Tablet (Feosol) Take 1 Tablet by mouth in the morning and 1 Tablet before bedtime. Active Fluticasone Propionate 50 MCG/ACT Nasal Suspension (Flonase)Indication s:Chronic maxillary sinusitis Administer 2 Sprays into each nostril in the morning. 48 g 3 03/05/2024 Active Carvedilol 25 MG Oral Tablet (Coreg)Indications: HTN, goal below 140/90 Take 1/2 tab twice daily 03/05/2024 Active Atorvastatin Calcium 40 MG Oral Tablet (Lipitor)Indication s:Dyslipidemia, goal LDL below 70 TAKE ONE TABLET BY MOUTH EVERY MORNING 90 Tablet 2 03/15/2024 03/15/2025 Active Losartan Potassium 100 MG Oral Tablet (Cozaar)Indications :HTN, goal below 140/90 Take 1 Tablet by mouth in the morning. 90 Tablet 1 03/17/2024 Active Polyethylene Glycol 3350 17 GM/SCOOP Oral Powder (MiraLax) Take 17 g by mouth at bedtime. Active Octreotide Acetate 50 MCG/ML Subcutaneous Solution Prefilled Syringe Inject 50 mcg under the skin 2 times a day. 60 mL 5 04/16/2024 Active Repaglinide 0.5 MG Oral Tablet (Prandin)Indication s:Type 2 diabetes mellitus with stage 3b chronic kidney disease, with long-term current use of insulin ([facility]) Take 1 tablet by mouth with evening meal. 90 Tablet 3 04/19/2024 Active Insulin Glargine Solostar 100 UNIT/ML Subcutaneous Solution Pen-injector (Lantus SoloStar)Indication s:Type 2 diabetes mellitus with hyperglycemia, with long-term current use of insulin ([facility]) Inject 45 Units under the skin at bedtime. 45 mL 3 04/19/2024 Active Gabapentin 300 MG Oral Capsule (Neurontin)Indicati ons:Spinal stenosis of lumbar region without neurogenic claudication Take 1 Capsule by mouth in the morning. 90 Capsule 3 05/01/2024 Active Gabapentin 600 MG Oral Tablet (Neurontin) Take 1 Tablet by mouth in the morning and 1 Tablet before bedtime. Noon and night. Active tiZANidine HCl 2 MG Oral Tablet (Zanaflex)Indicatio ns:Spinal stenosis of lumbar region without neurogenic claudication Take 1 Tablet by mouth at bedtime as needed for Muscle spasms. 90 Tablet 1 06/08/2024 Active Vitamin D (Ergocalciferol) 1.25 MG (00864 UT) Oral Capsule (Drisdol)Indication s:Vitamin D deficiency Take 1 Capsule by mouth Every Month. 6 Capsule 3 06/08/2024 Active PreserVision AREDS 2+Multi Vit Oral Capsule Take 1 Capsule by mouth in the morning and 1 Capsule before bedtime. 180 Capsule 3 06/08/2024 Active Hospital, Clinic, or Other Facility Administered Medication Ordered Dose Route Frequency Start Date End Date Status Albuterol Sulfate (Proventil) (2.5 MG/3ML) 0.083% inhalation solution 2.5 mgIndications:ILD (interstitial lung disease) ([facility]),BEARDEN (dyspnea on exertion) 2.5 mg NEBULIZER Q4H PRN 12/12/2023 Act jose documented as of this encounter (statuses as of 06/13/2024) Active Problems Problem Noted Date Diagnosed Date [...] 12/07/2022 Bilateral impacted cerumen 10/22/2022 Atherosclerosis of [place] co ronary artery without angina pectoris 07/15/2022 Primary osteoarthritis of left knee 07/15/2022 Vitamin D deficiency 07/15/2022 Numbness 05/21/2022 Overview: Transient left arm [...] as of this encounter (statuses as of 06/13/2024) Resolved Problems Problem Noted Date Diagnosed Date [...] as of this encounter (statuses as of 06/13/2024) Immunizations Name Administration Dates Next Due COVID-19 mRNA, LNP-s, No Pre serve, 2-Dose Series ([employer]) 07/03/2021,12/27/2020,12/06/2020 COVID-19, MRNA-LNP, 23-24, P F, 30 MCG/0.3 mL, 12 YRS AND ABOVE, IM ([employer]) 02/22/2024,06/16/2023 COVID-19, MRNA-LNP, 24-25, P R, 30MCG/0.3ML, IM, 12YRS AND ABOVE ([employer]) 05/22/2024 Pneumococcal Conjugate Vacci ne, 20-valent ([id number]) 12/07/2022 Pneumococcal Polysaccharide PPV23 (Pneumovax) 09/08/2020 Season [...] 8:10 AM EST Office Visit Family Practice [address] [place] [address] [address] [place] [place] [address] College, Pharmacist [address] [place], [place] [address] [address] 07/24/2024 2:00 PM EST Office Visit Nephrology, [facility] [address] [place] [address] Augusto Lerner MD 200 [facility] [place] [address] 09/07/2024 8:40 AM EST Office Visit Family Practice [address] [place] [address] [address] [place] [address] Javy Moscoso DO [address] [place] [address] 09/14/2024 11:30 AM EST Office Visit Hematology/Oncology [facility] 200 [facility] [place] [phone] Katt Mullen CRNP [facility] [place] [address] 10/03/2024 11:00 AM EST Nurse Only Family Practice [address] [place] [address] [address] [place] [phone] Mary Ellen Sorenson RN [facility] [address] 02/15/2025 10:00 AM EDT Office Visit [facility] Disorders [facility]tr [facility] [place] [address] [place] [phone] eDbby Corne[place], [address] [place] [address] Scheduled Procedures Name Priority Associated Diagnoses Date/Ti me COLONOSCOPY FLEXIBLE PROXIMA L DIAGNOSTIC Recall History of colonic polyps Health Maintenance Due Date Last Done Comments Cologuard 01/12/1997 Sigmoidoscopy 01/12/1997 Fecal Occult Blood Test 11/18/2023 11/18/19, 11/17/2022, 03/16/2022, Additional history exists CKD PHOS USE SMARTSET 69522 05/05/20240 02/2023, 02/02/2023, 01/11/2022, Additional history exists Diabetic Foot Exam 06/16/2024 06/16/2023, 06/16/2023 Albumin/Creatinine Ratio 09/09/2024 09/09/2023, 1111/2021 Adult Wellness Visit 09/28/2024 09/28/2023 GFR 10/20/2024 04/19/2024, 02/26, 03/05/2024, Additional history exists HbA1c 10/20/2024 04/19/2024, 11/27, 09/08/2023, Additional history exists Depression Screening 12/21/2024 12/22/2023 Diabetic Eye Exam 03/06/2025 03/06/2024, , 08/24/2023, Additional history exists Colonoscopy 05/03/2025 05/03/2024, 12/2023, 12/10/2022, Additional history exists Colorectal Cancer Screening 05/03/2025 O2 ASSESSMENT COMPLETED IN PAST YEAR FOR COPD 05/03/2025 05/03/2024 CKD HGB USE SMARTSET 21908 05/22/202505/22, 05/22/2024, 04/19/2024, Additional history exists DTap/Tdap Vaccines (2 - [...] of Attor kwabena? No Care Teams Manager User Interface Relationship Specialty Start Date End Date Javy Moscoso DO [address] [place] [phone] PCP - General Family Medicine 07/04/23 documented as of this encounter
--- OUTSIDE RECORDS SUMMARY | 2024-11-03 09:44 | External Medical Summary | Summary of Care ---
Author Name Unknown Organization [facility] Address [address] [place] [address] Phone [phone] Care Team Providers Care Hot Air Furnace Installer Repairer Name Role Phone Javy Moscoso DO Primary Care Provider [phone] Reason for Visit * Reason Onset Date Comments Test Results 06/18/2024 Encounter Details Date Type Department Care Team (Late st Contact Info) Description 06/18/2024 Telephone Family Practice 65 [facility] [place] [address] [place] [address] Javy Moscoso DO [address] [place] [address] Test Results Allergies Active Allergy Reactions Criticality Noted Date Comments Lisinopril Unknown Low 11/15/2022 Verapamil Medium 06/26/2020 Heart Block documented as of this encounter (statuses as of 06/18/2024) Medications Medication Sig Dispensed Refills Start Date [...] the morning. 100 Tablet 3 08/05/2023 Active LoiLo Ultra 2 w/Device Kit USE DIRECTED TO TEST BLOOD SUGARS 1 Each 09/08/2023 Active Pen [place] 31G X 5 MMIndications:Type 2 diabetes mellitus [...] every 10 days. E11.9 Active Dexcom G7 Rod Mill Tender Device Use as directed. Use as directed to monitor blood sugars daily Active LoiLo Ultra In Vitro Strip (Glucose Blood)Indications:T ype [...] of insulin ([facility]) Inject 45 Units under the [...] 06/08/2024 Active Vitamin D (Ergocalciferol) 1.25 MG (44100 UT) Oral Capsule (Drisdol)Indication s:Vitamin D deficiency [...] as of this encounter (statuses as of 06/18/2024) Active Problems Problem Noted Date Diagnosed Date [...] 12/07/2022 Bilateral impacted cerumen 10/22/[address] [place] co ronary artery without angina pectoris [...] as of this encounter (statuses as of 06/18/2024) Resolved Problems Problem Noted Date Diagnosed Date [...] as of this encounter (statuses as of 06/18/2024) Immunizations Name Administration Dates Next Due COVID-19 mRNA, LNP-s, No Pre serve, 2-Dose Series ([employer]) 07/03/2021,12/27/2020,12/06/2020 COVID-19, MRNA-LNP, 23-24, P F, 30 MCG/0.3 mL, 12 YRS AND ABOVE, IM (e[employer]rain) 02/22/2024,06/16/2023 COVID-19, MRNA-LNP, 24-25, P R, 30MCG/0.3ML, IM, 12YRS AND ABOVE ([employer]) 05/22/2024 Pneumococcal Conjugate Vacci ne, 20-valent ([id number]) 12/07/2022 Pneumococcal Polysaccharide PPV23 (Pneumovax) 09/08/2020 Season [...] Smoking Tobacco: Former Cigarettes 1 20 1 1994 Passive Smoke Exposure: Past Smokeless Tobacco: [...] Telephone Encounter - Javy Moscoso DO - 06/18/2024 5:35 PM EDT Lab studies shows chronic kidney disease stage 3 stable compared to previous study. Lab also shows mildly elevated blood glucose. Advise continue present medical therapy documented in this encounter Plan of Treatment Upcoming Encounters Date Type Department Care Team (Late st Contact Info) Description 07/16/2024 8:10 AM EST Office Visit Family Practice [address] [place] [address] [place] [address] College, Pharmacist [address] [address] 07/24/2024 2:00 PM EST Office Visit NephrologyЕкатерина [address] [place] [address] Augusto Lerner MD [address] [address] 09/07/2024 8:40 AM EST Office Visit Family Practice [address] [place] [address] [address] [place] [phone] Javy Moscoso, DO [address] [place] [address] 09/14/2024 11:30 AM EST Office Visit Hematology/Oncology [facility] [address] [place] [phone] Katt Mullen CRNP 400 [facility] [place] [address] 10/03/2024 11:00 AM EST Nurse Only Family Practice 65 [facility] [place] [address] [place] [phone] Mary Ellen Sorenson, JOAQUIN [address] [place] [facility] [phone] 02/15/2025 10:00 AM EDT Office Visit [facility] [place] [phone] Debby Cornejo, DO [address] [place] [address] Scheduled Procedures Name Priority Associated Diagnoses Date/Ti me COLONOSCOPY FLEXIBLE PROXIMA L DIAGNOSTIC Recall History of colonic polyps Health Maintenance Due Date Last Done Comments Cologuard 01/12/1997 Sigmoidoscopy 01/12/1997 Fecal Occult Blood Test 11/18/2023 11/18/19 23, 11/17/2022, 03/16/2022, Additional history exists CKD PHOS USE SMARTSET 16593 05/05/2024 09/0 02/2023, 02/02/2023, 01/11/2022, Additional history [...] COPD 05/03/2025 05/03/2024 CKD HGB USE SMARTSET 96722 05/22/202505/22, 05/22/2024, 04/19/2024, Additional history exists DTap/Tdap [...] Power of Attor kwabena? No Care Teams Hot Air Furnace Installer Repairer Relationship Specialty Start Date End Date Javy Moscoso DO [address] [place] [address] PCP - General Family Medicine 07/04/23 documented as of this encounter
--- OUTSIDE RECORDS SUMMARY | 2024-11-03 09:44 | External Medical Summary | Summary of Care ---
Author Name Unknown Organization [facility] Address [address] [place] [address] Phone [phone] Care Team Providers Care Industrial Truck Mechanic Name Role Phone Javy Moscoso DO Primary Care Provider Reason for Visit * Reason Onset Date Comments Test Results 06/18/2024 Encounter Details Date Type Department Care Team (Late st Contact Info) Description 06/18/2024 Telephone Family Practice 65 [facility] [address] [place] [address] Javy Moscoso DO [address] [place] [address] Test Results Allergies Active Allergy Reactions Criticality Noted Date Comments Lisinopril Unknown Low 11/15/2022 Verapamil Medium 06/26/2020 Heart Block documented as of this encounter (statuses as of 06/19/2024) Medications Medication Sig Dispensed Refills Start Date [...] the morning. 100 Tablet 3 08/05/2023 Active [employer] Ultra 2 w/Device Kit USE DIRECTED TO TEST BLOOD SUGARS 1 Each 09/08/2023 Active Pen [place] 31G X 5 MMIndications:Type 2 diabetes mellitus [...] every 10 days. E11.9 Active Dexcom G7 Final Block Press Operator Device Use as directed. Use as directed to monitor blood sugars daily Active [employer] Ultra In Vitro Strip (Glucose Blood)Indications:T ype [...] with long-term current use of insulin ([facility]) Inject 45 Units under the [...] 06/08/2024 Active Vitamin D (Ergocalciferol) 1.25 MG (78663 UT) Oral Capsule (Drisdol)Indication s:Vitamin D deficiency [...] as of this encounter (statuses as of 06/19/2024) Active Problems Problem Noted Date Diagnosed Date [...] Bilateral impacted cerumen 10/22/2022 Atherosclerosis of [place] co ronary artery without angina pectoris 07/15/2022 [...] as of this encounter (statuses as of 06/19/2024) Resolved Problems Problem Noted Date Diagnosed Date [...] as of this encounter (statuses as of 06/19/2024) Immunizations Name Administration Dates Next Due COVID-19 mRNA, LNP-s, No Pre serve, 2-Dose Series ([employer]) 07/03/2021,12/27/2020,12/06/2020 COVID-19, MRNA-LNP, 23-24, P F, 30 MCG/0.3 mL, 12 YRS AND ABOVE, IM (Mei[employer]ouring [employer]ounds) 02/22/2024,06/16/2023 COVID-19, MRNA-LNP, 24-25, P R, 30MCG/0.3ML, IM, 12YRS AND ABOVE ([employer]i [employer]) 05/22/2024 Pneumococcal Conjugate Vacci ne, 20-valent ([id number]) 12/07/2022 Pneumococcal Polysaccharide PPV23 (Pneumovax) 09/08/2020 Season [...] Telephone Encounter - Nhung Jose CCMA - 06/19/2024 9:34 AM EDT Spoke with and made her aware of the results and recommendations at this time. * Telephone Encounter - Javy Moscoso DO [...] AM EST Office Visit Family Practice 65 [facility] [phone] College, Pharmacist 65 [facility] 293 [facility] [address] 07/24/2024 2:00 PM EST Office Visit Nephrology, [address] [address] Augusto Lerner MD 200 [facility] [place] [address] 09/07/2024 8:40 AM EST Office Visit Family Practice [address] [place] [address] [address] [place] [address] Javy Moscoso DO [address] [place] [address] 09/14/2024 11:30 AM EST Office Visit Hematology/Oncology [facility] 200 [facility] [place] [phone] Katt Mullen CRNP [address] [place] [address] 10/03/2024 11:00 AM EST Nurse Only Family Practice [address] [place] [address] [address] [place] [address] Mary Ellen Sorenson, JOAQUIN [address] [facility] [place] [address] 02/15/2025 10:00 AM EDT Office Visit Sleep Disorders Ctr [facility] 132 [facility] [place] [phone] Debby Cornejo DO 132 [facility] [place] [address] Scheduled Procedures Name Priority Associated Diagnoses Date/Ti me COLONOSCOPY FLEXIBLE PROXIMA L DIAGNOSTIC Recall History of colonic polyps Health Maintenance Due Date Last Done Comments Cologuard 01/12/1997 Sigmoidoscopy 01/12/1997 Fecal Occult Blood Test 11/18/2023 11/18/19, 11/17/2022, 03/16/2022, Additional history exists CKD PHOS USE SMARTSET 75645 05/05/2024 09/0 02/2023, 02/02/2023, 01/11/2022, Additional history [...] COPD 05/03/2025 05/03/2024 CKD HGB USE SMARTSET 40496 06/18/202506/18, 06/18/2024, 05/22/2024, Additional history exists DTap/Tdap [...] Power of Attor kwabena? No Care Teams Industrial Truck Mechanic Relationship Specialty Start Date End Date Javy Moscoso DO [address] [place] [address] PCP - General Family Medicine 07/04/23 documented as of this encounter
--- OUTSIDE RECORDS SUMMARY | 2024-11-03 09:44 | External Medical Summary ---
Author Name Unknown Address Unknown Organization K01:[place] [facility] [place] [address] [place] [address] Laboratory Report Ordering Provider Test Date Status JACKIEMONTSE 06/18/2024 07:57:57 Final Observation Date Value Abnormality Reference (Units ) Status Ferritin 06/18/2024 07:57:57 64 30-400 (ng /mL) Final Performing Location LABORATORY [facility] - [address] [place] [address]
--- OUTSIDE RECORDS SUMMARY | 2024-11-03 09:44 | External Medical Summary | Summary of Care ---
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 100 Tablet 3 08/05/2023 Active Kiwii CapitalTouch Ultra 2 w/Device Kit USE DIRECTED TO TEST BLOOD SUGARS 1 Each 09/08/2023 Active Pen Ramona 31G X 5 MMIndications:Type 2 diabetes mellitus with hyperglycemia, with long-term current use of insulin ([facility]) Use as directed. Use as [...] every 10 days. E11.9 Active Dexcom G7 Delivery Nurse Device Use as directed. Use as directed to monitor blood sugars daily Active SeerGateuch Ultra In Vitro Strip (Glucose Blood)Indications:T ype 2 diabetes mellitus with hyperglycemia, with long-term current use of insulin ([facility]) USE DIRECTED UP TO FOUR TIMES DAILY FOR HOME GLUCOSE TESTING 400 Strip 3 12/22/2023 Active metFORMIN HCl ER 500 MG Oral Tablet Extended Release 24 Hour (Glucophage XR)Indications:Type 2 diabetes mellitus with stage 3b chronic kidney disease, without long-term current use of insulin ([facility]) Take 1 Tablet by mouth [...] disease, with long-term current use of insulin ([facility]) Take 1 tablet by mouth with evening meal. 90 Tablet 3 04/19/2024 Active Insulin Glargine Solostar 100 UNIT/ML Subcutaneous Solution Pen-injector (Lantus SoloStar)Indication s:Type 2 diabetes mellitus with hyperglycemia, with long-term current use of insulin ([facility]) Inject 45 Units under the [...] 06/08/2024 Active Vitamin D (Ergocalciferol) 1.25 MG (71771 UT) Oral Capsule (Drisdol)Indication s:Vitamin D deficiency [...] inhalation solution 2.5 mgIndications:ILD (interstitial lung disease) ([facility]),BEARDEN (dyspnea on exertion) 2.5 mg [...] 12/07/2022 Bilateral impacted cerumen 10/22/2022 Atherosclerosis of [place] co ronary artery without angina pectoris 07/15/2022 [...] mRNA, LNP-s, No Pre serve, 2-Dose Series (PrivateFly) 07/03/2021,12/27/2020,12/06/2020 COVID-19, MRNA-LNP, 23-24, P F, 30 MCG/0.3 mL, 12 YRS AND ABOVE, IM (Solace Lif[employer]iences-ComirnatChatalog) 02/22/2024,06/16/2023 COVID-19, MRNA-LNP, 24-25, P R, 30MCG/0.3ML, IM, 12YRS AND ABOVE (PrivateFly-ComirnatChatalog) 05/22/2024 Pneumococcal Conjugate Vacci ne, 20-valent ([id number]) 12/07/2022 Pneumococcal Polysaccharide PPV23 (Pneumovax) 09/08/2020 Season [...] 8:10 AM EST Office Visit Family Practice [address] [place] [address] [place] [address] [place] [address] College, Pharmacist [address] [place] [address] [place] [address] 07/24/2024 2:00 PM EST Office Visit NephrologyЕкатерина [address] [place] [address] Augusto Lerner MD [address] [place] [address] 09/07/2024 8:40 AM EST Office Visit Family Practice [address] [place] [address] [place] [address] Javy Moscoso DO [address] [place] [address] 09/14/2024 11:30 AM EST Office Visit Hematology/Oncology [facility] Marg[place]ita [place] [address] [place] [phone] Katt Mullen CRNP 400 [facility] [place] [address] 10/03/2024 11:00 AM EST Nurse Only Family Practice 65 [facility] [address] [place] [address] Mary Ellen Sorenson, JOA[place] [address] [place] [facility], [place] [address] 02/15/2025 10:00 AM EDT [facility] [place] [address] [place] [phone] Debby Cornejo DO 132 [facility] [place] [address] Pending Results Name Type Priority Associated Diagnoses Date /Time CBC WITH WBC DIFFERENTIAL Lab STAT Iron deficiency anemia due to chronic blood loss 06/18/2024 7:57 AM EDT IRON SCREEN, INCLUDING TIBC Lab STAT Iron deficiency anemia due to chronic blood loss 06/18/2024 7:57 AM EDT FERRITIN Lab STAT Iron deficiency anemia due to chronic blood loss 06/18/2024 7:57 AM EDT COMPREHENSIVE METABOLIC PANEL Lab Routine 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 stage 3b chronic kidney disease, with long-term current use of insulin (HCC) Stage 3a chronic kidney disease (HCC) 06/18/2024 7:57 AM EDT CBC Lab STAT Iron deficiency anemia due to chronic blood loss 06/18/2024 7:57 AM EDT DIFFERENTIAL, AUTOMATED Lab STAT Iron deficiency anemia due to chronic blood loss 06/18/2024 7:57 AM EDT Scheduled Procedures Name Priority Associated Diagnoses Date/Ti me COLONOSCOPY FLEXIBLE PROXIMA L DIAGNOSTIC Recall History of colonic polyps Health Maintenance Due Date Last Done Comments Cologuard 01/12/1997 Sigmoidoscopy 01/12/1997 Fecal Occult Blood Test 11/18/2023 11/18/19 23, 11/17/2022, 03/16/2022, Additional history exists CKD PHOS USE SMARTSET 01118 05/05/2024 09/0 02/2023, 02/02/2023, 01/11/2022, Additional history exists Diabetic Foot Exam 06/16/2024 06/16/2023, 06/16/2023 Albumin/Creatinine Ratio 09/09/2024 09/09/2023, 110 11/2021 Adult Wellness Visit 09/28/2024 09/28/2023 GFR 10/20/2024 04/19/2024, 02/26, 03/05/2024, Additional history exists HbA1c 10/20/2024 04/19/2024, 11/27, 09/08/2023, Additional history exists Depression Screening 12/21/2024 12/22/2023 Diabetic Eye Exam 03/06/2025 03/06/2024, , 08/24/2023, Additional history exists Colonoscopy 05/03/2025 05/03/2024, 12/2023, 12/10/2022, Additional history exists Colorectal Cancer Screening 05/03/2025 O2 ASSESSMENT COMPLETED IN PAST YEAR FOR COPD 05/03/2025 05/03/2024 CKD HGB USE SMARTSET 46649 05/22/202505/22, 05/22/2024, 04/19/2024, Additional history exists DTap/Tdap [...] with long-term current use of insulin (HCC) Stage 3a chronic kidney disease (HCC) documented in this encounter Advance Directives [...] Power of Attor kwabena? No Care Teams Mash Processing Operator Relationship Specialty Start Date End Date Javy Moscoso DO [address] [place] [phone] PCP - General Family Medicine 07/04/23 documented as of this encounter
--- OUTSIDE RECORDS SUMMARY | 2024-11-03 09:45 | External Medical Summary | Summary of Care ---
Author Name Unknown Organization [facility] Address [address] [place] [address] Phone [phone] Care Team Providers Care Financial Services Consultant Name Role Phone Javy Moscoso DO Primary Care Provider [phone] Reason for Visit * Reason Onset Date Comments Appointment 06/06/2024 Encounter Details Date Type Department Care Team (Late st Contact Info) Description 06/06/2024 Telephone Family Practice [address] [place] [address] [address] [place] [address] Christie Quintanilla, [facility] [address] [place] [address] Appointment Allergies Active Allergy Reactions Criticality Noted Date Comments Lisinopril Unknown Low 11/15/2022 Verapamil Medium 06/26/2020 Heart Block documented as of this encounter (statuses as of 06/06/2024) Medications Medication Sig Dispensed Refills Start Date [...] the morning. 100 Tablet 3 08/05/2023 Active Kodinguch Ultra 2 w/Device Kit USE DIRECTED TO TEST BLOOD SUGARS 1 Each 09/08/2023 Active Pen Mina 31G X 5 MMIndications:Type 2 diabetes mellitus [...] every 10 days. E11.9 Active Dexcom G7 Jacquard Fixer Device Use as directed. Use as directed to monitor blood sugars daily Active Firefly Energy Ultra In Vitro Strip (Glucose Blood)Indications:T ype [...] Muscle spasms. 90 Tablet 1 01/02/2024 Active metFORMIN HCl ER 500 MG Oral [...] 17 g by mouth at bedtime. Active Vitamin D (Ergocalciferol) 1.25 MG (04854 UT) Oral Capsule (Drisdol)Indication s:Vitamin D deficiency Take 1 Capsule by mouth Every Month. 6 Capsule 3 04/05/2024 Active Octreotide Acetate 50 MCG/ML Subcutaneous Solution [...] the morning. 90 Capsule 3 05/01/2024 Active Hospital, Clinic, or Other Facility Administered Medication Ordered Dose Route Frequency Start Date End Date Status Albuterol Sulfate (Proventil) (2.5 MG/3ML) 0.083% inhalation solution 2.5 mgIndications:ILD (interstitial lung disease) (HCC),BEARDEN (dyspnea on exertion) 2.5 mg NEBULIZER Q4H PRN 12/12/2023 Act jose documented as of this encounter (statuses as of 06/06/2024) Active Problems Problem Noted Date Diagnosed Date [...] Bilateral impacted cerumen 10/22/2022 Atherosclerosis of [place] co ronary artery without angina pectoris 07/15/2022 [...] as of this encounter (statuses as of 06/06/2024) Resolved Problems Problem Noted Date Diagnosed Date [...] as of this encounter (statuses as of 06/06/2024) Immunizations Name Administration Dates Next Due COVID-19 mRNA, LNP-s, No Pre serve, 2-Dose Series (Xceedium) 07/03/2021,12/27/2020,12/06/2020 COVID-19, MRNA-LNP, 23-24, P F, 30 MCG/0.3 mL, 12 YRS AND ABOVE, IM (Social[employer]-ComirSurprise Ride) 02/22/2024,06/16/2023 COVID-19, MRNA-LNP, 24-25, P R, 30MCG/0.3ML, IM, 12YRS AND ABOVE (Xceedium-Orbit Minder LimitedirSurprise Ride) 05/22/2024 Pneumococcal Conjugate Vacci ne, 20-valent ([id number]) 12/07/2022 Pneumococcal Polysaccharide PPV23 (Pneumovax) 09/08/2020 Season [...] Telephone Encounter - Javy Moscoso DO - 06/06/2024 3:39 PM EDT DME order signed per request * Telephone Encounter - Christie Quintanilla RPh - 06/06/2024 3:07 PM EDT Called patient's spouse to cancel 08/14/24 appointment with [facility] pharmacist due to staffing. [address] clinic is close for patient, he will go there for future [facility] appointments and Dexcom downloads, though his emphasized that he wanted to keep the same PCP, assured her that this was not changing. Appointment scheduled for 07/16/25, patient list membership updated. Patient's notes that they have been experiencing significant issues with getting patient's Dexcom G7 sensors from [employer]. While they would like to switch DME suppliers, she notes that they are currently receiving the sensors for free and were told in the past by an alternative supplier that they would face a $35/month copay for the sensors. Advised that I could place a new order through a different supplier and specify that patient would like a financial assistance application to potentially continue obtaining sensors at no cost, patient's would appreciate this. New order placed via [employer], to be fulfilled by [facility]. Christie Quintanilla, PharmD Clinical Pharmacist 06/06/2024, 3:15 PM documented in this encounter Plan of Treatment Upcoming Encounters Date Type Department Care Team (Late st Contact Info) Description 06/08/2024 9:00 AM EDT Office Visit Family Practice 65 [facility] [address] [place] [address] Javy Moscoso DO [address] [place] [phone] 07/16/2024 8:10 AM EST Office Visit Family Practice 65 [facility] [address] [place] [facility] [address] College, Pharmacist [address] [place] [address] 293 [place] [address] 07/24/2024 2:00 PM EST Office Visit Nephrology, [facility] 200 [facility] [place] [address] Augusto Lerner MD 200 [facility] [place] [address] 09/14/2024 11:30 AM EST Office Visit Hematology/Oncology [facility] [address] [place] [phone] Katt Mullen CRNP 400 [facility] [address] 10/03/2024 11:00 AM EST Nurse Only Family Practice [address] [place] [address] [place] [address] Mary Ellen Sorenson, [place] 293 [place] [address] 02/15/2025 10:00 AM EDT Office Visit Sleep Disorders Ctr [facility] 132 [facility] [place] [phone] Debby Cornejo, 132 [facility] [place] [address] Scheduled Procedures Name Priority Associated Diagnoses Date/Ti me COLONOSCOPY FLEXIBLE PROXIMA L DIAGNOSTIC Recall History of colonic polyps Health Maintenance Due Date Last Done Comments Cologuard 01/12/1997 Sigmoidoscopy 01/12/1997 Fecal Occult Blood Test 11/18/2023 11/18/19 23, 11/17/2022, 03/16/2022, Additional history exists CKD PHOS USE SMARTSET 85905 05/05/2024 09/0 02/2023, 02/02/2023, 01/11/2022, Additional history [...] COPD 05/03/2025 05/03/2024 CKD HGB USE SMARTSET 91109 05/22/202505/22, 05/22/2024, 04/19/2024, Additional history exists DTap/Tdap [...] Power of Attor kwabena? No Care Teams Financial Services Consultant Relationship Specialty Start Date End Date Javy Moscoso DO [address] [place] [phone] PCP - General Family Medicine 07/04/23 documented as of this encounter
--- OUTSIDE RECORDS SUMMARY | 2024-11-03 09:45 | External Medical Summary | Summary of Care ---
Author Name Unknown Organization [facility] Address [address] [place] [address] Phone [phone] Care Team Providers Care Oil Developer Name Role Phone Javy Moscoso DO Primary Care Provider Reason for Visit * Reason Onset Date Comments Dosage Adjustment In Person (Anticoag Clinic) Diabetes Follow-Up Medication Administration 05/22/2024 Flu an d/or Pneumo Inj Encounter Details Date Type Department Care Team (Late st Contact Info) Description 05/22/2024 8:00 AM EDT Office Visit Family Practice [address] [place] [address] [place] [address] [place], Pharmacist [address] [place] [phone] Type 2 diabetes mellitus with hyperglycemia, with long-term current use of insulin (HCC)*; Need for prophylactic vaccination and inoculation against influenza Allergies Active Allergy Reactions Criticality Noted Date Comments Lisinopril Unknown Low 11/15/2022 Verapamil Medium 06/26/2020 Heart Block documented as of this encounter (statuses as of 05/22/2024) Medications Medication Sig Dispensed Refills Start Date [...] the morning. 100 Tablet 3 08/05/2023 Active Admittance TechnologiesTouch Ultra 2 w/Device Kit USE DIRECTED TO TEST BLOOD SUGARS 1 Each 09/08/2023 Active Pen Nelson 31G X 5 MMIndications:Type 2 diabetes mellitus [...] every 10 days. E11.9 Active Dexcom G7 Penal Officer Device Use as directed. Use as directed to monitor blood sugars daily Active Nanjing Zhangmenuch Ultra In Vitro Strip (Glucose Blood)Indications:T ype [...] bedtime. Active Vitamin D (Ergocalciferol) 1.25 MG (02799 UT) Oral Capsule (Drisdol)Indication s:Vitamin D deficiency [...] as of this encounter (statuses as of 05/22/2024) Active Problems Problem Noted Date Diagnosed Date [...] 12/07/2022 Bilateral impacted cerumen 10/22/2022 Atherosclerosis of [place] co ronary artery without angina pectoris 07/15/2022 [...] as of this encounter (statuses as of 05/22/2024) Resolved Problems Problem Noted Date Diagnosed Date [...] as of this encounter (statuses as of 05/22/2024) Immunizations Name Administration Dates Next Due COVID-19 mRNA, LNP-s, No Pre serve, 2-Dose Series (SpotRight) 07/03/2021,12/27/2020,12/06/2020 COVID-19, MRNA-LNP, 23-24, P F, 30 MCG/0.3 mL, 12 YRS AND ABOVE, IM (visetoirCuraxis Pharmaceutical) 02/22/2024,06/16/2023 COVID-19, MRNA-LNP, 24-25, P R, 30MCG/0.3ML, IM, 12YRS AND ABOVE (NimiairCuraxis Pharmaceutical) 05/22/2024 Pneumococcal Conjugate Vacci ne, 20-valent ([id number]) 12/07/2022 Pneumococcal Polysaccharide PPV23 (Pneumovax) 09/08/2020 Season [...] Smoking Tobacco: Former Cigarettes 1 20 1 - 1994 Passive Smoke Exposure: [...] this encounter Patient Instructions * Patient Instructions* Hans Kaba RPh - 05/22/2024 8:31 AM EDT ~~PATIENT INSTRUCTIONS FOR FLU SHOT~~ Possible side effects of influenza vaccine, (flu shot), are usually mild and include: 1. Soreness or redness at injection site 2. Low grade fever 3. Body aches You may use Tylenol/Acetaminophen as needed for these symptoms. LET YOUR DOCTOR KNOW IMMEDIATELY IF YOU HAVE DIFFICULTY BREATHING OR SWALLOWING, EXPERIENCE ITCHINGOF FEET OR HANDS, HAVE SWELLING OF EYES, FACE OR INSIDE OF NOSE. documented in this encounter Progress Notes * Hans Kaba RPh - 05/22/2024 7:59 AM EDT Images from the original note [...] bedtime) Jardiance 25 mg daily INCREASE Lantus 45 units at bedtime START Prandin 0.5mg 1 tablet with evening meal 30 day to [place], 90 day to mail order Medication Injection Site: Abdomen Lifestyle: Diet: unchanged, sometimes doesn't eat supper Glucose Review/SMBG: Readings obtained from patient device Hypoglycemia: Does your blood sugar go below 70 mg/dL? Yes, 2 episodes first thing in the morning Hyperglycemia symptoms present: none Recent Labs Units 04/19/24 0944 12/15/23 0750 09/08/23 1002 HEMOGLOBIN A1C - [facility] % 5.7* 8.3* 8.7* Recent Labs Units 04/19/24 0944 03/09/24 0751 03/05/24 1058 ESTIMATED GLOMERULAR FILTRATION RATE - [facility] mL/min 45* 40* 49* CREATININE - [facility] mg/dL 1.6* 1.8* 1.5* HYPERTENSION: Patient on ACEi/ARB: yes BP Readings from Last 3 Encounters: 05/03/24 130/58 04/19/24 118/60 04/05/24 114/64 Blood pressure at goal: yes HYPERLIPIDEMIA: Recent Labs Units 12/15/23 0750 03/21/23 0803 LDL CHOLESTEROL (CALCULATED) - [facility] mg/dL 59 -- LDL CHOLESTEROL (DIRECT MEASURE) - [facility] mg/dL -- 62 Does patient have clinical ASCVD? No, is patient LDL less than 70mg/dL? Yes HEALTH MAINTENANCE REVIEW: Health Maintenance Due Topic Date Due Influenza Vaccine (FLU shot) (1) 04/29/2024 COVID-19 Vaccine (2023- season) 2024 CKD PHOS USE SMARTSET 63863 05/05/2024 Diabetic Foot Exam 06/16/2024 ASSESSMENT & PLAN: ICD-10-CM 1. Type 2 diabetes mellitus with hyperglycemia, with long-term current use of insulin ([facility]) E11.65 Z79.4 BG Readings - Blood sugars controlled. A1c improved, most likely higher than indicated due to low H/H. Dexcom estimated A1c 7.3. BG improved since last visit Medications - Reviewed current regimen, patient is adherent to regimen. Only taking Prandin with evening meal if he eats one, sometimes skips. Continue current medications and doses Diet, Exercise, Lifestyle - No significant lifestyle changes since last visit. Patient is agreeable to Dexcom G7 use Patient aware to contact clinic if any hypoglycemia before next visit. MEDICATION CHANGES: no change Diabetic Medications: Metformin 500 mg ER 1 tab daily (at bedtime) Jardiance 25 mg daily Lantus 45 units at bedtime Prandin 0.5mg 1 tablet with evening meal HEALTH MAINTENANCE INTERVENTIONS: Labs: Up to Date Immunizations: Facilitated Administration Of: Influenza and COVID Foot Exam: Up to Date Eye Exam: Up to Date Annual Wellness Visit: Up to Date FOLLOW UP: Return to clinic in 12 weeks 06/08/2024 I spent a total of 30-39 minutes (exact time 30 mins) on the date of service in preparation, delivery, and documentation of the care provided to Walker Mancini excluding any time spent in the performance of separately billed services. Hans Kaba [facility] Clinical Pharmacist - Manager Security Medication Therapy [facility] 05/22/2024, 7:59 AM documented in this encounter Plan of Treatment Upcoming Encounters Date Type Department Care Team (Late st Contact Info) Description 06/08/2024 9:00 AM EDT Office Visit [facility] [address] [place] [address] Javy Moscoso DO [address] [place] [address] 07/24/2024 2:00 PM EST Office Visit Nephrology, [facility] 200 [facility] [place] [address] Augusto Lerner MD 200 [facility] [place] [address] 08/14/2024 8:00 AM EST [facility] [address] [place] [address] [place] [place] [address] [address] [place] [address] 09/14/2024 11:30 AM EST Office Visit Hematology/Oncology [facility] [place] 200 [facility] [place] [phone] Katt Mullen CRNP [address] [place], [place] [address] [phone] 10/03/2024 11:00 AM EST Nurse Only Ancillary [address] [place] [address] [place] [address] [place], Nurse Annual Wellness Visit [address] [place] [address] 02/15/2025 10:00 AM EDT Office Visit Sleep Disorders Ctr [facility] [address] [place] [phone] Debby Cornejo DO [address] [place] [address] Scheduled Procedures Name Priority Associated Diagnoses Date/Ti me COLONOSCOPY FLEXIBLE PROXIMA L DIAGNOSTIC Recall History of colonic polyps Health Maintenance Due Date Last Done Comments Cologuard 01/12/1997 Sigmoidoscopy 01/12/1997 Fecal Occult Blood Test 11/18/2023 11/18/19, 11/17/2022, 03/16/2022, Additional history exists CKD PHOS USE SMARTSET 27341 05/05/2024 09/0 02/2023, 02/02/2023, 01/11/2022, Additional history exists Diabetic Foot Exam 06/16/2024 06/16/2023, 06/16/2023 Albumin/Creatinine Ratio 09/09/2024 09/09/2023, 11/0 11/2021 Adult Wellness Visit 09/28/2024 09/28/2023 GFR 10/20/2024 04/19/2024, 02/26, 03/05/2024, Additional history exists HbA1c 10/20/2024 04/19/2024, 11/27, 09/08/2023, Additional history exists Depression Screening 12/21/2024 12/22/2023 Diabetic Eye Exam 03/06/2025 03/06/2024, , 08/24/2023, Additional history exists CKD HGB USE SMARTSET 94439 04/19/202504/19, 04/19/2024, 03/09/2024, Additional history exists Colonoscopy 05/03/2025 05/03/2024, 12/2023, 12/10/2022, Additional history exists Colorectal Cancer Screening 05/03/2025 O2 ASSESSMENT COMPLETED IN PAST YEAR FOR COPD 05/03/2025 05/03/2024 DTap/Tdap Vaccines (2 - Td or Tdap) [...] use of insulin (HCC)- Primary Need for prophylactic vaccination and inoculation against influenza documented in this encounter Advance Directives * [...] Power of Attor kwabena? No Care Teams Oil Developer Relationship Specialty Start Date End Date Javy Moscoso DO [address] [place] [address] PCP - General Family Medicine 07/04/23 documented as of this encounter
--- OUTSIDE RECORDS SUMMARY | 2024-11-03 09:45 | External Medical Summary ---
Author Name Unknown Address Unknown Organization [id number]:[facility] - [address] [place] [address] Laboratory Report Ordering Provider Test Date Status MONTSE MEJIA 05/22/2024 08:52:36 Final Observation Date Value Abnormality Reference (Units ) Status WBC, Total 05/22/2024 08:52:36 4.92 4.00-10.80 (K/uL) Final RBC 05/22/2024 08:52:36 3.93 4.50-5.25 (M/uL) Final Hemoglobin 05/22/2024 08:52:36 11.9 Below low normal 14.0-16.8 (g/dL) Final HCT 05/22/2024 08:52:36 38.8 Below low normal 40.0-48.4 (%) Final MCV 05/22/2024 08:52:36 98.7 82.0-99.5 (fL) Final MCH 05/22/2024 08:52:36 30.3 27.0-34.0 (pg) Final MCHC 05/22/2024 08:52:36 30.7 32.0-36.0 (g/dL) Final RDW 05/22/2024 08:52:36 16.5 11.5-15.5 (%) Final Platelets 05/22/2024 08:52:36 189 140-400 (K/uL) Final MPV 05/22/2024 08:52:36 12.7 6.6-11.1 (fL) Final Nucleated erythrocytes/100 leukocytes [Ratio] in Blood by Automated count 05/22/2024 08:52:36 0 <=0 (/100 WBCs) Final Performing Location [facility] [place] [address]
--- OUTSIDE RECORDS SUMMARY | 2024-11-03 09:45 | External Medical Summary ---
Author Name Unknown Address Unknown Organization K01:[facility] [place] [address] [place] [address] Laboratory Report Ordering Provider Test Date Status MONTSE MEJIA 05/22/2024 08:52:36 Final Observation Date Value Abnormality Reference (Units ) Status Iron 05/22/2024 08:52:36 102 45-176 (ug /dL) Final Iron-binding capacity 05/22/2024 08:52:36 340 250-425 (ug/dL) Final Transferrin Sat % 05/22/2024 08:52:36 30 15 -55 (%) Final Performing Location [facility] [address] [facility] [address]
--- OUTSIDE RECORDS SUMMARY | 2024-11-03 09:45 | External Medical Summary | Summary of Care ---
Author Name Unknown Organization [facility] Address [address] [place] [address] Phone [phone] Care Team Providers Care Manager Retail Name Role Phone Javy Moscoso DO Primary Care Provider + [phone] Encounter Details Date Type Department Care Team ([facility] st Contact Info) Description 05/10/2024 Documentation Physical Therapy [facility] [address] [place] [address] Neida Diaz, PT [address] [place] [address] Allergies Active Allergy Reactions Criticality Noted Date Comments Lisinopril Unknown Low 11/15/2022 Verapamil Medium 06/26/2020 Heart Block documented as of this encounter (statuses as of 05/10/2024) Medications Medication Sig Dispensed Refills Start Date [...] 100 Tablet 3 08/05/2023 Active OneTouch Ultra 2 w/Device Kit USE DIRECTED TO TEST BLOOD SUGARS 1 Each 09/08/2023 Active Pen Bronston 31G X 5 MMIndications:Type 2 diabetes mellitus [...] every 10 days. E11.9 Active Dexcom G7 Powered Bridge Specialist Device Use as directed. Use as directed to monitor blood sugars daily Active Zipmark Ultra In Vitro Strip (Glucose Blood)Indications:T ype [...] bedtime. Active Vitamin D (Ergocalciferol) 1.25 MG (44919 [...] as of this encounter (statuses as of 05/10/2024) Active Problems Problem Noted Date Diagnosed Date [...] 12/07/2022 Bilateral impacted cerumen 10/22/2022 Atherosclerosis of cachil dehe co ronary artery without angina pectoris [...] as of this encounter (statuses as of 05/10/2024) Resolved Problems Problem Noted Date Diagnosed Date [...] as of this encounter (statuses as of 05/10/2024) Immunizations Name Administration Dates Next Due COVID-19 mRNA, LNP-s, No Pre serve, 2-Dose Series (Pfizer) 07/03/2021,12/27/2020,12/06/2020 COVID-19, MRNA-LNP, 23-24, P F, 30 MCG/0.3 mL, 12 YRS AND ABOVE, IM (PFIZER-Comirnaty) 02/22/2024,06/16/2023 Pneumococcal Conjugate Vacci ne, 20-valent ([id number]) 12/07/2022 Pneumococcal Polysaccharide PPV23 (Pneumovax) 09/08/2020 Season [...] No 12/22/2023 Does the household have a up health systemr source of income? (Household - for ages [...] Care Team (Late st Contact Info) Description 05/17/2024 10:00 AM EDT [facility] [address] [place] [address] [place] Pharmacist [address] [place] [address] 06/08/2024 9:00 AM EDT Office Visit Family [facility] [address] [place] [address] [place] [address] Javy Moscoso DO [address] [place] [address] 07/24/2024 2:00 PM EST Office Visit Nephrology, [facility] [address] [facility] [place] [address] Augusto Lerner MD [address] [facility] [place] [address] 09/14/2024 11:30 AM EST Office Visit Hematology/Oncology [facility] [place] [phone] Katt Mullen CRNP [address] [place] [address] [place] [id number] 10/03/2024 11:00 AM EST Nurse Only Ancillary [facility] [address] [place] [address] [place] Nurse Annual Wellness Visit [address] [place] [address] 02/15/2025 10:00 AM EDT Office Visit [facility] [place] [address] [facility] [place] [phone] ChantalShirazsintia Deal, DO [address] [place] [address] Scheduled Procedures Name Priority Associated Diagnoses Date/Ti me COLONOSCOPY FLEXIBLE PROXIMA L DIAGNOSTIC Recall History of colonic polyps Health Maintenance Due Date Last Done Comments Cologuard 01/12/1997 Sigmoidoscopy 01/12/1997 Fecal Occult Blood Test 11/18/2023 11/18/19 23, 11/17/2022, 03/16/2022, Additional history exists COVID-19 Vaccine ( season) 2024 02/22/2024, 06/16/2023, 07/03/2021, Additional history exists Influenza Vaccine (FLU shot) (#1) 2024 06/16/2023, 05/06/2022, 06/13/2021, Additional history exists CKD PHOS USE SMARTSET 29197 05/05/2024 09/0 02/2023, 02/02/2023, 01/11/2022, Additional history exists Diabetic Foot Exam 06/16/2024 06/16/2023, 06/16/2023 Albumin/Creatinine Ratio 09/09/2024 09/09/2023, 1111/2021 Adult Wellness Visit 09/28/2024 09/28/2023 GFR 10/20/2024 04/19/2024, 02/26, 03/05/2024, Additional history exists HbA1c 10/20/2024 04/19/2024, 11/27, 09/08/2023, Additional history exists Depression Screening 12/21/2024 12/22/2023 Diabetic Eye Exam 03/06/2025 03/06/2024, , 08/24/2023, Additional history exists CKD HGB USE SMARTSET 36765 04/19/202504/19, 04/19/2024, 03/09/2024, Additional history exists Colonoscopy 05/03/2025 05/03/2024, 090 [...] Discontinued 05/03/2024, 05/03/2024, 12/10/2022, Additional history exists HPV (Gardasil) Vaccine Aged [...] of Attor kwabena? No Care Teams Manager Retail Relationship Specialty Start Date End Date Javy Moscoso DO [address] [place] [address] PCP - General Family Medicine 07/04/23 documented as of this encounter
--- OUTSIDE RECORDS SUMMARY | 2024-11-03 09:45 | External Medical Summary | Summary of Care ---
Author Name Unknown Organization [facility] Address [address] [facility] 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)*; Type 2 diabetes mellitus with stage 3b chronic kidney disease, with long-term current use of insulin (HCC); Stage 3a chronic kidney disease (HCC); Atherosclerosis of yuhaaviatam coronary 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 Active Acetaminophen 500 MG Oral Tablet (Tylenol) Take 1 to 2 tablets by mouth every 6 hours as needed 03/09/2022 Active Empagliflozin 25 MG Oral Tablet (Jardiance)Indicat ions:Type 2 diabetes mellitus with hyperglycemia, without long-term current use of insulin (HCC),Type 2 diabetes mellitus with stage 3b chronic kidney disease, without long-term current use of insulin (HCC) Take 1 Tablet by mouth in the morning. 100 Tablet 3 08/05/2023 Active agri.capital Ultra 2 w/Device Kit USE DIRECTED TO TEST BLOOD SUGARS 1 Each 09/08/2023 Active Pen Oldhams 31G X 5 MMIndications:Type 2 diabetes mellitus with hyperglycemia, with long-term current use of insulin (HCC) Use as directed. Use as directed with glargine insulin once daily 100 Each 3 10/06/2023 Active Torsemide 20 MG Oral Tablet (Demadex)Indicatio ns:HTN, goal below 140/90 TAKE ONE TABLET BY MOUTH EVERY MORNING 90 Tablet 3 11/02/2023 Active Vitamin B-12 2500 MCG Sublingual Tablet Sublingual Place 1 Tablet under the tongue in the morning. Active Dexcom G7 Sensor Use as directed. Use as directed to monitor blood sugars daily. Replace sensor every 10 days. E11.9 Active Dexcom G7 Horologist Apprentice Device Use as directed. Use as directed to monitor blood sugars daily Active Guard RFID Solutionsuch Ultra In Vitro Strip (Glucose Blood)Indications: Type 2 diabetes mellitus with hyperglycemia, with long-term current use of insulin ([facility]) USE DIRECTED UP TO FOUR TIMES DAILY [...] Active Fluticasone Propionate 50 MCG/ACT Nasal Suspension (Flonase)Indicatio ns:Chronic maxillary sinusitis Administer 2 Sprays into each nostril in the morning. 48 g 3 03/05/2024 Active Carvedilol 25 MG Oral Tablet (Coreg)Indications :HTN, goal below 140/90 Take 1/2 tab twice daily 03/05/2024 Active Atorvastatin Calcium 40 MG Oral Tablet (Lipitor)Indicatio ns:Dyslipidemia, goal LDL below 70 TAKE ONE TABLET BY MOUTH EVERY MORNING 90 Tablet 2 03/15/2024 Active Losartan Potassium 100 MG Oral Tablet [...] 04/16/2024 Active Repaglinide 0.5 MG Oral Tablet (Prandin)Indicatio ns:Type 2 diabetes mellitus with stage 3b chronic kidney disease, with long-term current use of insulin ([facility]) Take 1 tablet by mouth with evening meal. 90 Tablet 3 04/19/2024 Active Insulin Glargine Solostar 100 UNIT/ML Subcutaneous Solution Pen-injector (Lantus SoloStar)Indicatio ns:Type 2 diabetes mellitus with hyperglycemia, with long-term current use of insulin ([facility]) Inject 45 Units under the skin at bedtime. 45 mL 3 04/19/2024 Active Gabapentin 300 MG Oral Capsule (Neurontin)Indicat ions:Spinal stenosis of lumbar region without neurogenic [...] 06/08/2024 Active Vitamin D (Ergocalciferol) 1.25 MG (30683 UT) Oral Capsule (Drisdol)Indicatio ns:Vitamin D deficiency Take 1 Capsule by mouth Every Month. 6 Capsule 3 06/08/2024 Active PreserVision AREDS 2+Multi Vit Oral Capsule Take 1 Capsule by mouth in the morning and 1 Capsule before bedtime. 180 Capsule 3 06/08/2024 Active tiZANidine HCl 2 MG Oral Tablet (Zanaflex)Indicati ons:Spinal stenosis of lumbar region without neurogenic claudication Take 1 Tablet by mouth at bedtime as needed for Muscle spasms. 90 Tablet 1 01/02/2024 4 Discontinue d(Refill) Vitamin D (Ergocalciferol) 1.25 MG (46136 UT) Oral Capsule (Drisdol)Indicatio ns:Vitamin D deficiency Take 1 Capsule by mouth Every Month. 6 Capsule 3 04/05/2024 4 Discontinue d(Refill) PreserVision AREDS 2+Multi Vit Oral Capsule Take 1 Capsule by mouth in the morning and 1 Capsule before bedtime. 4 Discontinue d(Refill) Hospital, Clinic, or Other Facility Administered Medication Ordered Dose Route Frequency Start Date End Date Status Albuterol Sulfate (Proventil) (2.5 MG/3ML) 0.083% inhalation solution 2.5 mgIndications:ILD (interstitial lung disease) (HCC),BEARDEN (dyspnea on exertion) 2.5 mg NEBULIZER Q4H PRN 12/12/2023 Act jose documented as of this encounter (statuses as of 06/11/2024) Active Problems Problem Noted Date Diagnosed Date [...] 12/07/2022 Bilateral impacted cerumen 10/22/2022 Atherosclerosis of yuhaaviatam co ronary artery without angina pectoris 07/15/2022 [...] as of this encounter (statuses as of 06/11/2024) Resolved Problems Problem Noted Date Diagnosed Date [...] as of this encounter (statuses as of 06/11/2024) Immunizations Name Administration Dates Next Due COVID-19 mRNA, LNP-s, No Pre serve, 2-Dose Series ([employer]) 07/03/2021,12/27/2020,12/06/2020 COVID-19, MRNA-LNP, 23-24, P F, 30 MCG/0.3 mL, 12 YRS AND ABOVE, IM [facility]) 02/22/2024,06/16/2023 COVID-19, MRNA-LNP, 24-25, P R, 30MCG/0.3ML, IM, 12YRS AND ABOVE (Pfizer-Comirnaty) 05/22/2024 Pneumococcal Conjugate Vacci ne, 20-valent ([id number]) 12/07/2022 Pneumococcal Polysaccharide PPV23 (Pneumovax) 09/08/2020 Season [...] Sign Reading Time Taken Comments Blood Pressure 118/64 06/08/2024 9:08 AM EDT Pulse 61 06/08/2024 9:08 AM EDT Temperature 35.9 C (96.7 F) 06/08/2024 9:08 AM ED T Respiratory Rate - - Oxygen Saturation 94% 06/08/2024 9:08 AM EDT Inhaled Oxygen Concentration - - Weight 105.3 kg (232 lb 3.2 oz) 06/08/2024 9:08 AM EDT Height - - Body Mass Index 33.32 05/03/2024 12:33 PM EDT documented in this [...] encounter Progress Notes * Javy Moscoso, - 06/08/2024 9:21 AM EDT Images from the original note were not included. History of Present Illness Walker Mancini is a 74 year old male that presents for Follow Up Patient is a 74-year-old male here for medical follow-up. Patient is here with in attendance. Patient has a history of hypertensive heart and kidney disease with stage 3 chronic kidney disease, diabetes mellitus type 2, ASCVD, dyslipidemia, AV malformation of small bowel, lumbar spinal stenosis, lumbar degenerative disc disease, vitamin-D deficiency and GUS on CPAP. Patient feels generally well and is following a diet exercise program. Patient states neck mid and low back pain improved with physical therapy. Patient denies radiation of pain, muscle weakness or numbness. Patient denies fatigue fever chills or sweats. Patient denies nasal congestion sore throat or earache. Patient denies cough or sputum. Patient is compliant with CPAP and is tolerating well. Patient denies chest pain shortness breath palpitations or edema. Patient denies abdominal pain nausea vomiting diarrhea constipation. Patient denies urinary frequency dysuria urgency or hematuria. Patient denies headache dizziness weakness or numbness. Patient denies skin rash or lesions. Review systems otherwise negative Physical Exam Vitals: 06/08/24 0908 Temp: 35.9 C (96.7 F) Pulse: 61 SpO2: 94% BP: 118/64 BP Readings from Last 3 Encounters: 06/08/24 118/64 05/03/24 130/58 04/19/24 118/60 Wt Readings from Last 3 Encounters: 06/08/24 105.3 kg (232 lb 3.2 oz) 05/03/24 104.8 kg (231 lb) 04/19/24 103.4 kg (227 lb 14.4 oz) BMI Readings from Last 3 Encounters: 06/08/24 33.32 kg/m 05/03/24 33.15 kg/m 04/19/24 32.70 kg/m BP 118/64 (BP Site: Right Arm, BP Position: Sitting) | Pulse 61 | Temp 35.9 C (96.7 F) | Wt 105.3 kg (232 lb 3.2 oz) | SpO2 94% | BMI 33.32 kg/m | BSA 2.28 m General: alert, healthy, and no distress [...] symmetric, no curvature, no costovertebral angle tenderness, cervical paravertebral muscle spasm and tenderness decreased range of motion rotation flexion C1-C7, lumbar paravertebral spasmand tenderness decreased range of motion lumbar flexion L1-L5 Extremities: less than 2 second capillary refill, no joint deformities, effusion, or inflammation Neuro Exam: alert & oriented x 3 with fluent speech, no focal motor/sensory deficits, gait normal, reflexes normal and symmetric Skin: skin color, texture, turgor are normal, no rashes or significant lesions I have reviewed the following results: Iron, ferritin, and CBC hemoglobin A1c, BMP Assessment and Plan 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 Continue present medication Losartan 100 mg 1 tab once daily Carvedilol 25 mg 1/2 tab twice daily - COMPREHENSIVE METABOLIC PANEL; Future Type 2 diabetes mellitus with stage 3b chronic kidney disease, with long-term current use of insulin (HCC) Stable Hemoglobin A1c at goal. 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 Stable Continue present medication Atorvastatin 40 mg 1 tab once daily Carvedilol 25 mg 1/2 tab twice daily - LIPID PANEL WITH DIRECT LDL IF TG IS HIGH; Future Dyslipidemia, goal LDL below 70 Stable Continue present medication Atorvastatin 40 mg 1 tab once daily Low-fat low-cholesterol high-fiber diet - LIPID PANEL WITH DIRECT LDL IF TG IS HIGH; Future AVM (arteriovenous malformation) of small bowel, acquired Stable Continue present medication Octreotide acetate inject 50 mcg subcutaneous twice daily Follow with gastroenterology Spinal stenosis of lumbar region without neurogenic claudication Stable Continue modified home therapeutic exercise Avoid strenuous activities, no heavy lifting Warm compresses four times daily affected area Tylenol OTC as directed p.r.n. Gabapentin 600 mg 1 tab noon, 1 tab bedtime, Gabapentin 300 mg 1 tab a.m. - tiZANidine HCl 2 MG Oral Tablet (Zanaflex); Take 1 Tablet by mouth at bedtime as needed for Muscle spasms. Degeneration of intervertebral disc of lumbar region with discogenic back pain Stable Continue present medication as above Gabapentin 600 mg 1 tab noon, 1 tab bedtime Gabapentin 300 mg 1 tab a.m. Vitamin D deficiency Stable Continue present medication - Vitamin D (Ergocalciferol) 1.25 MG (91573 UT) Oral Capsule (Drisdol); Take 1 Capsule by mouth Every Month. GUS on CPAP Stable Continue CPAP Wrap-Up Time: I spent a total of [...] AM EST Office Visit Family Practice 65 [facility] [address] [facility], [place] [phone] College, Pharmacist 65 [facility] [address] [facility], [place] [address] 07/24/2024 2:00 PM EST Office Visit Nephrology, [facility] 200 [facility] [place] [address] Augusto Lerner MD 200 [facility] [place] [address] 09/07/2024 8:40 AM EST Office Visit Family Practice 65 [facility] [address] [place] [address] Javy Moscoso DO [address] [place] [address] 09/14/2024 11:30 AM EST Office Visit Hematology/Oncology [facility] [address] [facility] [place] [phone] Katt Mullen CRNP [facility] [place] [address] 10/03/2024 11:00 AM EST Nurse Only Family Practice [address] [place] [address] [place] [address] [place] [address] Mary Ellen Sorenson, JOAQUIN [address] [facility] [address] 02/15/2025 10:00 AM EDT Office Visit Sleep Disorders Ctr [facility] 132 [facility] [place] [phone] Debby Cornejo, 132 [facility] [place] [address] Scheduled Orders Name Type Priority Associated Diagnoses Orde r Schedule LIPID PANEL WITH DIRECT LDL IF TG IS HIGH Lab Routine Atherosclerosis of yuhaaviatam coronary 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 Dyslipidemia, goal LDL below 70 Expected: 09/08/2024, Expires: 06/08/2025 HEMOGLOBIN A1C Lab Routine Type 2 diabetes mellitus with stage 3b chronic kidney disease, with long-term current use of insulin (HCC) Expected: 09/08/2024 (Approximate), Expires: 06/08/2025 COMPREHENSIVE METABOLIC PANEL Lab Routine 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 stage 3b chronic kidney disease, with long-term current use of insulin (HCC) Stage 3a chronic kidney disease (HCC) Expected: 06/08/2024 (Approximate), Expires: 06/08/2025 PHOSPHORUS Lab Routine Stage 3a chronic kidney disease (HCC) Expected: 09/08/2024 (Approximate), Expires: 06/08/2025 Scheduled Procedures Name Priority Associated Diagnoses Date/Ti me COLONOSCOPY FLEXIBLE PROXIMA L DIAGNOSTIC Recall History of colonic polyps Health Maintenance Due Date Last Done Comments Cologuard 01/12/1997 Sigmoidoscopy 01/12/1997 Fecal Occult Blood Test 11/18/2023 11/18/19 23, 11/17/2022, 03/16/2022, Additional history exists CKD PHOS USE SMARTSET 96698 05/05/2024 09/0 02/2023, 02/02/2023, 01/11/2022, Additional history [...] COPD 05/03/2025 05/03/2024 CKD HGB USE SMARTSET 01997 05/22/202505/22, 05/22/2024, 04/19/2024, Additional history exists DTap/Tdap [...] (HCC) Stage 3a chronic kidney disease (HCC) Atherosclerosis of yuhaaviatam coronary 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 No Care Teams Roller Skate Assembler Relationship Specialty Start Date End Date Javy Moscoso DO [address] [place] [address] PCP - General Family Medicine 07/04/23 documented as of this encounter"
--- OUTSIDE RECORDS SUMMARY | 2024-11-03 09:45 | External Medical Summary | Summary of Care ---
Author Name Unknown Organization [facility] Address [address] [place] [address] Phone [phone] Care Team Providers Care Glue Mixer Name Role Phone Javy Moscoso DO Primary Care Provider Encounter Details Date Type Department Care Team (Late st Contact Info) Description 05/17/2024 Population Health External Data Unspecified Department Allergies Active Allergy Reactions Criticality Noted Date Comments Lisinopril Unknown Low 11/15/2022 Verapamil Medium 06/26/2020 Heart Block documented as of this encounter (statuses as of 05/21/2024) Medications Medication Sig Dispensed Refills Start Date [...] the morning. 100 Tablet 3 08/05/2023 Active Iconix BiosciencesTouch Ultra 2 w/Device Kit USE DIRECTED TO TEST BLOOD SUGARS 1 Each 09/08/2023 Active Pen [place] 31G X 5 MMIndications:Type 2 diabetes mellitus [...] every 10 days. E11.9 Active Dexcom G7 Laser/Electro Optics Technician Device Use as directed. Use as [...] bedtime. Active Vitamin D (Ergocalciferol) 1.25 MG (94341 UT) Oral Capsule (Drisdol)Indication s:Vitamin D deficiency [...] disease, with long-term current use of insulin ([facility]) Take 1 tablet by mouth with evening meal. 90 Tablet 3 04/19/2024 Active Insulin Glargine Solostar 100 UNIT/ML Subcutaneous Solution Pen-injector (Lantus SoloStar)Indication s:Type 2 diabetes mellitus with hyperglycemia, with long-term current use of insulin ([facility]) Inject 45 Units under the [...] inhalation solution 2.5 mgIndications:ILD (interstitial lung disease) ([facility]),BEARDEN (dyspnea on exertion) 2.5 mg NEBULIZER Q4H PRN 12/12/2023 Act jose documented as of this encounter (statuses as of 05/21/2024) Active Problems Problem Noted Date Diagnosed Date [...] 12/07/2022 Bilateral impacted cerumen 10/22/2022 Atherosclerosis of [place] co ronary artery without angina pectoris 07/15/2022 [...] as of this encounter (statuses as of 05/21/2024) Resolved Problems Problem Noted Date Diagnosed Date [...] as of this encounter (statuses as of 05/21/2024) Immunizations Name Administration Dates Next Due COVID-19 mRNA, LNP-s, No Pre serve, 2-Dose Series (NoiseToys) 07/03/2021,12/27/2020,12/06/2020 COVID-19, MRNA-LNP, 23-24, P F, 30 MCG/0.3 mL, 12 YRS AND ABOVE, IM (PFIZER-Comirnaty) 02/22/2024,06/16/2023 Pneumococcal Conjugate Vacci ne, 20-valent ([id number]) 12/07/2022 Pneumococcal Polysaccharide PPV23 (Pneumovax) 09/08/2020 Season [...] No 12/22/2023 Does the household have a [facility] source of income? (Household - for [...] AM EDT Office Visit Family Practice 65 [facility] [place] [address] [place] [address] [place], Pharmacist [address] [place] [phone] 06/08/2024 9:00 AM EDT Office Visit [facility] [address] [place] [phone] Javy Moscoso DO [address] [place] [phone] 07/24/2024 2:00 PM EST Office Visit Nephrology, [facility] 200 [facility] [place] [address] Augusto Lerner MD [address] [place] [address] 09/14/2024 11:30 AM EST Office Visit Hematology/Oncology [facility] [place] [address] [place] [address] Katt Mullen CRNP [address] [place] [address] [place] [address] 10/03/2024 11:00 AM EST Nurse Only Ancillary 65 [facility] [address] [address] [place], Nurse Annual Wellness Visit [address] [place] [phone] 02/15/2025 10:00 AM EDT [facility] 132 [facility] [place] [address] Debby Cornejo DO 132 [facility] [place] [address] Scheduled Procedures Name Priority Associated Diagnoses Date/Ti [...] Additional history exists CKD PHOS USE SMARTSET 09652 05/05/2024 090 02/2023, 02/02/2023, 01/11/2022, Additional history exists Diabetic Foot Exam 06/16/2024 06/16/2023, 06/16/2023 Albumin/Creatinine Ratio 09/09/2024 09/09/2023, 110 11/2021 Adult Wellness Visit 09/28/2024 09/28/2023 GFR 10/20/2024 04/19/2024, 02/26, 03/05/2024, Additional history exists HbA1c 10/20/2024 04/19/2024, 11/27, 09/08/2023, Additional history exists Depression Screening 12/21/2024 12/22/2023 Diabetic Eye Exam 03/06/2025 03/06/2024, , 08/24/2023, Additional history exists CKD HGB USE SMARTSET 47487 04/19/202504/19, 04/19/2024, 03/09/2024, Additional history exists Colonoscopy [...] Power of Attor kwabena? No Care Teams Glue Mixer Relationship Specialty Start Date End Date Javy Moscoso DO [address] [place] [address] PCP - General Family Medicine 07/04/23 documented as of this encounter
--- OUTSIDE RECORDS SUMMARY | 2024-11-03 09:45 | External Medical Summary | Summary of Care ---
Author Name Unknown Organization [facility] Address [address] [place] [address] Phone [phone] Care Team Providers Care Fourdrinier Machine Operator Name Role Phone aJvy Moscoso DO Primary Care Provider + [phone] Encounter Details Date Type Department Care Team (Latest Contact Info) Description 05/22/2024 Medication Management Stephanie Mo CMR [address] [place] [address] Jessica Ledesma, [facility] [address] [place] [address] Referred for medication therapy management* Allergies Active Allergy Reactions Criticality Noted Date [...] BLOOD SUGARS 1 Each 09/08/2023 Active Pen [place] 31G X 5 MMIndications:Type 2 diabetes mellitus [...] every 10 days. E11.9 Active Dexcom G7 Rubbish Collector Device Use as directed. Use as directed to monitor blood sugars daily Active [employer] Ultra In Vitro Strip (Glucose Blood)Indications:T ype [...] bedtime. Active Vitamin D (Ergocalciferol) 1.25 MG (58159 UT) Oral Capsule (Drisdol)Indication s:Vitamin D deficiency [...] 12/07/2022 Bilateral impacted cerumen 10/22/2022 Atherosclerosis of [place] co ronary artery without angina pectoris 07/15/2022 [...] mRNA, LNP-s, No Pre serve, 2-Dose Series ([employer]uka [employer]) 07/03/2021,12/27/2020,12/06/2020 COVID-19, MRNA-LNP, 23-24, P F, 30 MCG/0.3 mL, 12 YRS AND ABOVE, IM ([employer] Group-ComirIntegrated Development Enterprise) 02/22/2024,06/16/2023 COVID-19, MRNA-LNP, 24-25, P R, 30MCG/0.3ML, IM, 12YRS AND ABOVE (Nuka Indstries-DearLocalirnatAdyoulike) 05/22/2024 Pneumococcal Conjugate Vacci ne, 20-valent ([id number]) 12/07/2022 Pneumococcal Polysaccharide PPV23 (Pneumovax) 09/08/2020 Season [...] as of this encounter Progress Notes * Mariza Ball 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 TMR Interventions TMR Medication Assessment - Hypoglycemia: LANTUS SOLOS INJ 100/ML;REPAGLINIDE TAB0.5MG Incomplete Encounter MTPs No medication therapy recommendations to display Complete Encounter MTPs Referred for medication therapy management Rationale: Medication requires monitoring - Needs additional monitoring - Safety Recommendation: Provide Education Status: Patient Agreed Note: TMR for hypoglycemia. Patient was educated during CMR. Assessment & Plan Indication, effectiveness, safety and convenience of Gabes medications were reviewed today. The patient's medical conditions were assessed, evaluated, and deemed meeting goals of drug therapy, withthe following exceptions. JACKIE High Tech 05/22/2024, 7:50 PM documented in this encounter Plan of Treatment Upcoming Encounters Date Type Department Care Team (Late st Contact Info) Description 06/08/2024 9:00 AM EDT Office Visit Family Practice [address] [place], [place] [address] [place] [address] Javy Moscoso DO [address] [place] [address] 07/24/2024 2:00 PM EST Office Visit [place] [address] [place] [address] Augusto Lerner MD [address] [place] [address] 08/14/2024 8:00 AM EST Office Visit Family Practice 65 [facility] [place] [address] [place] [address] [place], Pharmacist [address] [place] [phone] 09/14/2024 11:30 AM EST Office Visit Hematology/Oncology [facility] [place] 200 [facility] [place] [phone] Katt Mullen CRNP 400 [facility] [place] [address] 10/03/2024 11:00 AM EST Nurse Only Ancillary 65 [facility] [address] [place] [phone] [place] Nurse Annual Wellness Visit [address] [place] [address] 02/15/2025 10:00 AM EDT Office Visit [facility] [place] [address] Debby Cornejo DO [address] [place] [address] Scheduled Procedures Name Priority Associated Diagnoses Date/Ti me COLONOSCOPY FLEXIBLE PROXIMA L DIAGNOSTIC Recall History of colonic polyps Health Maintenance Due Date Last Done Comments Cologuard 01/12/1997 Sigmoidoscopy 01/12/1997 Fecal Occult Blood Test 11/18/2023 11/18/19 23, 11/17/2022, 03/16/2022, Additional history exists CKD PHOS USE SMARTSET 37230 05/05/2024 09/0 02/2023, 02/02/2023, 01/11/2022, Additional history [...] COPD 05/03/2025 05/03/2024 CKD HGB USE SMARTSET 14224 05/22/202505/22, 05/22/2024, 04/19/2024, Additional history exists DTap/Tdap [...] this encounter Visit Diagnoses Diagnosis Referred for medication therapy management- Primary Encounter for long-term (current) use of other medications documented in this encounter Advance Directives * [...] Power of Attor kwabena? No Care Teams Fourdrinier Machine Operator Relationship Specialty Start Date End Date Javy Moscoso DO [address] [place] [address] PCP - General Family Medicine 07/04/23 documented as of this encounter
--- OUTSIDE RECORDS SUMMARY | 2024-11-03 09:45 | External Medical Summary | Summary of Care ---
Author Name Unknown Organization [facility] Address [address] [place] [address] Phone [phone] Care Team Providers Care Fisheries Inspector Name Role Phone Javy Moscoso DO Primary Care Provider Reason for Visit * Reason Onset Date Comments Appointment 05/17/2024 Encounter Details Date Type Department Care Team (Late st Contact Info) Description 05/17/2024 Telephone Family Practice [address] [place] [address] [place] [address] [place] [address] Hans Kaba, [facility] [address] [place] [address] Appointment Allergies Active Allergy Reactions Criticality Noted Date Comments Lisinopril Unknown Low 11/15/2022 Verapamil Medium 06/26/2020 Heart Block documented as of this encounter (statuses as of 05/17/2024) Medications Medication Sig Dispensed Refills Start Date [...] the morning. 100 Tablet 3 08/05/2023 Active Groove Biopharma. Ultra 2 w/Device Kit USE DIRECTED TO TEST BLOOD SUGARS 1 Each 09/08/2023 Active Pen [place] 31G X 5 MMIndications:Type 2 diabetes mellitus with hyperglycemia, with long-term current use of insulin ([facility]) Use as directed. Use as directed [...] every 10 days. E11.9 Active Dexcom G7 Mig Tig Welder Device Use as directed. Use as directed to monitor blood sugars daily Active [employer]. Ultra In Vitro Strip (Glucose Blood)Indications:T ype [...] [facility]) Take 1 Tablet by mouth at bedtime. [...] bedtime. Active Vitamin D (Ergocalciferol) 1.25 MG (88915 UT) Oral Capsule (Drisdol)Indication s:Vitamin D deficiency [...] as of this encounter (statuses as of 05/17/2024) Active Problems Problem Noted Date Diagnosed Date [...] 12/07/2022 Bilateral impacted cerumen 10/22/2022 Atherosclerosis of [place] co ronary artery without angina pectoris 07/15/2022 [...] as of this encounter (statuses as of 05/17/2024) Resolved Problems Problem Noted Date Diagnosed Date [...] as of this encounter (statuses as of 05/17/2024) Immunizations Name Administration Dates Next Due COVID-19 mRNA, LNP-s, No Pre serve, 2-Dose Series (Pfizer) 07/03/2021,12/27/2020,12/06/2020 COVID-19, MRNA-LNP, 23-24, P F, 30 MCG/0.3 mL, 12 YRS AND ABOVE, IM (PFIZER-Comirnaty) 02/22/2024,06/16/2023 Pneumococcal Conjugate Vacci ne, 20-valent ([id number]) 12/07/2022 Pneumococcal Polysaccharide PPV23 (Pneumovax) 09/08/2020 Season [...] Does the household have a [facility] source of income? (Household - for ages [...] Telephone Encounter - Hans Kaba RPh - 05/17/2024 11:18 AM EDT Patient Phone Numbers Phone call to patient to reschedule appointment. No-showed today's appointment, Spoke to . Rescheduled for this Tuesday, 05/22. Nirmala MccallD Clinical Pharmacist [facility] 05/17/2024 11:19 AM documented in this encounter Plan of Treatment Upcoming Encounters Date Type Department Care Team (Late st Contact Info) Description 05/22/2024 8:00 AM EDT Office Visit Family Practice [place] [address] [place] [address] [place] Pharmacist [address] [place] [phone] 06/08/2024 9:00 AM EDT Office Visit [facility] 65 [place] [address] [place] [address] Javy Moscoso DO [address] [place] [address] 07/24/2024 2:00 PM EST Office Visit Nephrology, [place] [address] [place] [address] Augusto Lerner MD [address] [place] [address] 09/14/2024 11:30 AM EST Office Visit Hematology/Oncology [facility] [address] [place] [phone] Katt Mullen CRNP [address] [place] [address] 10/03/2024 11:00 AM EST Nurse Only Ancillary [address], [place] [address] [place] [address] [place], Nurse Annual Wellness Visit [address] [place] [address] 02/15/2025 10:00 AM EDT Office Visit [facility] [address] [place] [address] Debby Cornejo DO [address] [place] [address] Scheduled Procedures Name Priority Associated Diagnoses Date/Ti [...] Additional history exists CKD PHOS USE SMARTSET 85434 05/05/2024 09/02/2023, 02/02/2023, 01/11/2022, Additional history exists Diabetic Foot Exam 06/16/2024 06/16/2023, 06/16/2023 Albumin/Creatinine Ratio 09/09/2024 09/09/2023, 11/0 11/2021 Adult Wellness Visit 09/28/2024 09/28/2023 GFR 10/20/2024 04/19/2024, 02/26, 03/05/2024, Additional history exists HbA1c 10/20/2024 04/19/2024, 11/27, 09/08/2023, Additional history exists Depression Screening 12/21/2024 12/22/2023 Diabetic Eye Exam 03/06/2025 03/06/2024, , 08/24/2023, Additional history exists CKD HGB USE SMARTSET 78348 04/19/202504/19, 04/19/2024, 03/09/2024, Additional history exists Colonoscopy [...] Power of Attor kwabena? No Care Teams Fisheries Inspector Relationship Specialty Start Date End Date Javy Moscoso DO [address] [place] [address] PCP - General Family Medicine 07/04/23 documented as of this encounter
--- OUTSIDE RECORDS SUMMARY | 2024-11-03 09:45 | External Medical Summary | Summary of Care ---
Author Name Unknown Organization [facility] Address [address] [place] [address] Phone [phone] Care Team Providers Care Public Speaking Teacher Name Role Phone Javy Moscoso DO Primary Care Provider [phone] Reason for Visit * Reason Onset Date Comments Appointment 06/06/2024 Encounter Details Date Type Department Care Team (Late st Contact Info) Description 06/06/2024 Telephone Family Practice [address] [place] [address] [address] [place] [address] Christie Quintanilla, [facility] [address] [place] [address] Appointment Allergies Active Allergy Reactions [...] the morning. 100 Tablet 3 08/05/2023 Active Front[employer] Ultra 2 w/Device Kit USE DIRECTED TO TEST BLOOD SUGARS 1 Each 09/08/2023 Active Pen [place] 31G X 5 MMIndications:Type 2 diabetes [...] every 10 days. E11.9 Active Dexcom G7 Pot Room Supervisor Device Use as directed. Use as directed to monitor blood sugars daily Active [employer] Ultra In Vitro Strip (Glucose Blood)Indications:T ype [...] bedtime. Active Vitamin D (Ergocalciferol) 1.25 MG (07659 UT) Oral Capsule (Drisdol)Indication s:Vitamin D deficiency [...] 12/07/2022 Bilateral impacted cerumen 10/22/2022 Atherosclerosis of [place] co ronary artery without angina pectoris 07/15/2022 [...] mRNA, LNP-s, No Pre serve, 2-Dose Series ([employer]) 07/03/2021,12/27/2020,12/06/2020 COVID-19, MRNA-LNP, 23-24, P F, 30 MCG/0.3 mL, 12 YRS AND ABOVE, IM (Tapgage-ComirVeran Medical Technologies) 02/22/2024,06/16/2023 COVID-19, MRNA-LNP, 24-25, P R, 30MCG/0.3ML, IM, 12YRS AND ABOVE (Amiare-Breeze TechirVeran Medical Technologies) 05/22/2024 Pneumococcal Conjugate Vacci ne, 20-valent ([id number]) 12/07/2022 Pneumococcal Polysaccharide PPV23 (Pneumovax) 09/08/2020 Season [...] encounter Miscellaneous Notes * Telephone Encounter - Christie Quintanilla RPh - 06/06/2024 3:07 PM EDT Called patient's spouse to cancel 08/14/24 appointment with [facility] pharmacist due to staffing. [address] clinic is close for patient, he will go there for future [facility] appointments and Dexcom downloads, though his emphasized that he wanted to keep the same PCP, assured her that this was not changing. Appointment scheduled for 07/16/25, patient list membership updated. Patient's notes that they have been experiencing significant issues with getting patient's Dexcom G7 sensors from [employer]. While they would like to switch DME [...] would appreciate this. New order placed via [facility], to be fulfilled by [facility]. Christie Quintanilla, PharmD Clinical Pharmacist 06/06/2024, 3:15 PM documented in this encounter Plan of Treatment Upcoming Encounters Date Type Department Care Team (Late st Contact Info) Description 06/08/2024 9:00 AM EDT Office Visit [place] [address] [place] [address] Javy Moscoso DO [address] [place] [phone] 07/16/2024 8:10 AM EST Office Visit Family Practice [address] [place] [address] [facility] [phone] [place], Pharmacist [address] [address] 07/24/2024 2:00 PM EST Office Visit Nephrology, [facility] 200 [facility] [place] [address] Augusto Lerner MD [address] [place] [address] 09/14/2024 11:30 AM EST Office Visit Hematology/Oncology [facility] [address] [place] [address] Katt Mullen CRNP 400 [facility] [place] [phone] 10/03/2024 11:00 AM EST Nurse Only Family Practice [address] [place] [address] [address] [place] [address] Mary Ellen Sorenson, JOAQUIN [address] [place] [address] 02/15/2025 10:00 AM EDT Office Visit Sleep Disorders [facility]tr [facility] 132 [facility] [place] [phone] Debby Cornejo DO 132 [facility] [place] [address] Scheduled Procedures Name Priority Associated Diagnoses Date/Ti me COLONOSCOPY FLEXIBLE PROXIMA L DIAGNOSTIC Recall History of colonic polyps Health Maintenance Due Date Last Done Comments Cologuard 01/12/1997 Sigmoidoscopy 01/12/1997 Fecal Occult Blood Test 11/18/2023 11/18/19 23, 11/17/2022, 03/16/2022, Additional history exists CKD PHOS USE SMARTSET 19986 05/05/2024 09/0 02/2023, 02/02/2023, 01/11/2022, Additional history [...] COPD 05/03/2025 05/03/2024 CKD HGB USE SMARTSET 99527 05/22/202505/22, 05/22/2024, 04/19/2024, Additional history exists DTap/Tdap [...] Power of Attor kwabena? No Care Teams Public Speaking Teacher Relationship Specialty Start Date End Date Javy Moscoso DO [address] [place] [phone] PCP - General Family Medicine 07/04/23 documented as of this encounter
--- OUTSIDE RECORDS SUMMARY | 2024-11-03 09:45 | External Medical Summary | Summary of Care ---
Author Name Unknown Organization [facility] Address [address] [place] [address] Phone [phone] Care Team Providers Care Vocational Nurse Lvn Name Role Phone Javy Moscoso DO Primary Care Provider [phone] Reason for Visit * Reason Comments Outpatient Testing Encounter Details Date Type Department Care Team (Late st Contact Info) Description 05/22/2024 8:40 AM EDT Laboratory Laboratory, [place] [address] [place] [address] [place], [facility] [address] [place] [address] Iron deficiency anemia due to chronic blood [...] BLOOD SUGARS 1 Each 09/08/2023 Active [place] 31G X 5 MMIndications:Type 2 diabetes mellitus [...] every 10 days. E11.9 Active Dexcom G7 Communications Equipment Supervisor Device Use as directed. Use as directed to monitor blood sugars daily Active Instantis Ultra In Vitro Strip (Glucose Blood)Indications:T ype 2 diabetes mellitus with hyperglycemia, with long-term current use of insulin ([facility]) USE DIRECTED UP TO FOUR TIMES DAILY [...] disease, without long-term current use of insulin ([facility]) Take 1 Tablet by mouth at bedtime. [...] bedtime. Active Vitamin D (Ergocalciferol) 1.25 MG (84715 UT) Oral Capsule (Drisdol)Indication s:Vitamin D deficiency [...] 12/07/2022 Bilateral impacted cerumen 10/22/2022 Atherosclerosis of [place] ronary artery without angina pectoris 07/15/2022 [...] mRNA, LNP-s, No Pre serve, 2-Dose Series ([employer]) 07/03/2021,12/27/2020,12/06/2020 COVID-19, MRNA-LNP, 23-24, P F, 30 MCG/0.3 mL, 12 YRS AND ABOVE, IM ([employer]) 02/22/2024,06/16/2023 COVID-19, MRNA-LNP, 24-25, P R, 30MCG/0.3ML, IM, 12YRS AND ABOVE ([employer]irSPAR[employer]) 05/22/2024 Pneumococcal Conjugate Vacci ne, 20-valent ([email or web address]) 12/07/2022 Pneumococcal Polysaccharide PPV23 (Pneumovax) 09/08/2020 Season [...] Visit Family Practice [address] [place] [address] [place] [address] Javy Moscoso DO [address] [place] [address] 07/24/2024 2:00 PM EST Office Visit Nephrology, [facility] [address] [place] [address] Augusto Lerner MD [address] [facility] [place] [address] 08/14/2024 8:00 AM EST Office Visit Family Practice [address] [place] [address] [place] [address] [place] Pharmacist 65 [facility] [address] [place] [address] 09/14/2024 11:30 AM EST Office Visit Hematology/Oncology [facility] [place] [address] [facility] [place] [address] Katt Mullen CRNP [address] [place] [address] 10/03/2024 11:00 AM EST Nurse Only Ancillary [address] [place] [address] [place] [address] [place], Nurse Annual Wellness Visit [address] [place] [address] 02/15/2025 10:00 AM EDT [facility] [address] [place] [address] Debby Cornejo, [address] [place] [address] Pending Results Name Type Priority Associated Diagnoses Date /Time CBC WITH WBC DIFFERENTIAL Lab STAT Iron deficiency anemia due to chronic blood loss 05/22/2024 8:52 AM EDT IRON SCREEN, INCLUDING TIBC Lab STAT Iron deficiency anemia due to chronic blood loss 05/22/2024 8:52 AM EDT FERRITIN Lab STAT Iron deficiency anemia due to chronic blood loss 05/22/2024 8:52 AM EDT CBC Lab STAT Iron deficiency anemia due to chronic blood loss 05/22/2024 8:52 AM EDT DIFFERENTIAL, AUTOMATED Lab STAT Iron deficiency anemia due to chronic blood loss 05/22/2024 8:52 AM EDT Scheduled Procedures Name Priority Associated Diagnoses Date/Ti me COLONOSCOPY FLEXIBLE PROXIMA L DIAGNOSTIC Recall History of colonic polyps Health Maintenance Due Date Last Done Comments Cologuard 01/12/1997 Sigmoidoscopy 01/12/1997 Fecal Occult Blood Test 11/18/2023 11/18/19 23, 11/17/2022, 03/16/2022, Additional history exists CKD PHOS USE SMARTSET 40889 05/05/2024 090 02/2023, 02/02/2023, 01/11/2022, Additional history exists Diabetic Foot Exam 06/16/2024 06/16/2023, 06/16/2023 Albumin/Creatinine Ratio 09/09/2024 09/09/2023, 1111/2021 Adult Wellness Visit 09/28/2024 09/28/2023 GFR 10/20/2024 04/19/2024, 02/26, 03/05/2024, Additional history exists HbA1c 10/20/2024 04/19/2024, 11/27, 09/08/2023, Additional history exists Depression Screening 12/21/2024 12/22/2023 Diabetic Eye Exam 03/06/2025 03/06/2024, , 08/24/2023, Additional history exists CKD HGB USE SMARTSET 53007 04/19/202504/19, 04/19/2024, 03/09/2024, Additional history exists Colonoscopy [...] Power of Attor kwabena? No Care Teams Vocational Nurse Lvn Relationship Specialty Start Date End Date Javy Moscoso DO [address] [place] [phone] PCP - General Family Medicine 07/04/23 documented as of this encounter
--- OUTSIDE RECORDS SUMMARY | 2024-11-03 09:45 | External Medical Summary ---
Author Name Unknown Address Unknown Organization [id number]:[facility] - [address] [place] [address] Laboratory Report Ordering Provider Test Date Status JACKIEMONTSE 05/22/2024 08:52:36 Final Observation Date Value Abnormality Reference (Units ) Status Ferritin 05/22/2024 08:52:36 97 30-400 (ng /mL) Final Performing Location [facility] - [address] [place] [address]
[2024-11-03] MEDS ORDERED: Nursing to Pharmacy Communication SCH (10:30)
--- OUTSIDE RECORDS SUMMARY | 2024-11-03 10:37 | External Medical Summary | Summary of Care ---
Author Name Unknown Organization [facility] Address [address] [place] [address] Phone [phone] Care Team Providers Care Spinner Box Name Role Phone Javy Moscoso DO Primary Care Provider Reason for Visit * Reason Onset Date Comments Test Results 11/02/2024 Encounter Details Date Type Department Care Team (Late st Contact Info) Description 11/02/2024 Telephone Family Practice 65 [facility] [place] [address] [place] [address] Javy Moscoso DO [address] [place] [address] Test Results Allergies Active [...] every 10 days. E11.9 Active Dexcom G7 Meat And Seafood Manager Device Use as directed. Use as [...] 4 Active Vitamin D (Ergocalciferol) 1.25 MG (00756 UT) Oral Capsule (Drisdol)Indicat ions:Vitamin D deficiency [...] the skin daily per titration chart from [facility] clinic. 45 mL 3 08/23/2024 12:03 PM EST 4 Active Additional Information Patient taking differently: 38 Units Subcutaneous HS, per [facility] clinic, Reported on 11/01/2024 Pen [place] 31G X 5 MMIndications:Ty pe 2 diabetes [...] 10/23/2024 9:11 AM EST 5 026 Active Octreotide Acetate 50 MCG/ML Subcutaneous Solution Prefilled Syringe Inject 50 mcg (1 syringe) under the skin 2 times a day. 60 mL 5 Active Hospital, Clinic, or Other Facility [...] pain 04/05/2024 Lumbar degenerative disc disease 04/05/2024 Assessment & Plan (11/02/2024 3:54 PM EST): Stable Continue present medication Gabapentin 300 mg 1 cap once daily AM Gabapentin 600 mg 1 tab noon and bed Gastrointestinal hemorrhage 03/05/2024 Symptomatic anemia 03/05/2024 Assessment & Plan (11/02/2024 3:54 PM EST): CBC with diff, serum iron, TIBC Follow with Hematology Follow with Gastroenterology Await results CBC,, may require transfusion for hemoglobin less than 7 Orthostatic hypotension 03/05/2024 Chest pain 02/22/2024 Palpitations 02/22/2024 Assessment & Plan (11/02/2024 3:54 PM EST): Stable Orders: EKG; Future Type 2 diabetes mellitus wit h hemoglobin A1c goal of less than 7.5% 12/06/2023 AVM (arteriovenous malformation) of small bowel, acquired 12/06/2023 Assessment & Plan (11/02/2024 3:54 PM EST): Stable Follow with Gastroenterology Continue present medication Octreotide inject 50 mcg subcutaneous twice daily Chronic maxillary sinusitis 12/06/2023 Grade I diastolic dysfunction 12/06/2023 Type 2 diabetes mellitus wit h diabetic peripheral angiopathy without gangrene, with long-term current use of insulin 09/08/2023 Thrombocytopenia 09/08/2023 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 COPD, group A, by GOLD 2017 classification 08/08 Overview: Per COPD GOLD Classification ILD (interstitial lung disease) 04/27/2023 Assessment & Plan (11/02/2024 3:54 PM EST): Stable Centrilobular emphysema 04/27/2023 BEARDEN (dyspnea on exertion) 03/11/2023 Risk and functional assessment 03/08/2023 Iron deficiency anemia due to chronic blood loss 12/17/2022 Assessment & Plan (11/02/2024 3:54 PM EST): Continue present medication Ferrous sulfate 325 mg 1 tab twice daily CBC, serum iron 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/16/2023): Advised repeat colonoscopy November 2023 PSVT (paroxysmal supraventricular tachycardia) 0 12/07/2022 Assessment & Plan (11/02/2024 3:54 PM EST): Stable Bilateral impacted cerumen 10/22/2022 Atherosclerosis of [place] ronary artery without angina pectoris 07/15/2022 Assessment & Plan (11/02/2024 3:54 PM EST): Stable Continue present medication Atorvastatin 40 mg 1 tab once daily Primary osteoarthritis of left knee 07/15/2022 Vitamin D deficiency 07/15/2022 Numbness 05/21/2022 Overview (05/21/2022): Transient left arm and leg numbness 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 Continue present medication Carvedilol 25 mg 1/2 tab twice daily Losartan 100 mg 1 tab once daily Torsemide 20 mg 1 tab once daily Type 2 diabetes mellitus wit h stage 3b chronic kidney disease, with long-term current use of insulin 03/08/2022 Overview: Per CKD protocol Assessment & Plan (11/02/2024 3:54 PM EST): Stable Hemoglobin A1c at goal level 6.9 Continue present medication Metformin ER 5 mg 1 tab once daily Jardiance 25 mg 1 tab once daily Xultophy 100-3.6 unit-mg/ml inject 38 units subcutaneous HS Chronic kidney disease, stage 3b 03/08/2022 Overview: [...] mRNA, LNP-s, No Pre serve, 2-Dose Series ([employer]) 07/03/2021,12/27/2020,12/06/2020 COVID-19, MRNA-LNP, PF, 30 M CG/0.3 mL, 12 YRS AND ABOVE, IM ([employer]-Comirnaty) 05/22/2024,02/22/2024,06/16/2023 Pneumococcal Conjugate Vacci ne, 20-valent ([id number]) 12/07/2022 Pneumococcal Polysaccharide PPV23 (Pneumovax) 09/08/2020 RSV [...] Encounter - Javy Moscoso DO - 11/02/2024 3:39 PM EST Spoke with patient and patient's . Advise ER for further evaluation treatment of symptomatic anemia with hemoglobin 8.5, acute kidney injury on CKD 3 with creatinine 2.0 GFR 36. * Telephone Encounter - Nhung Jose CCMA - 11/02/2024 1:52 PM EST Spoke with Cyndi, patients . Was asking about patients lab work. Please advise. documented in this encounter Plan of Treatment Upcoming Encounters Date Type Department Care Team (Late st Contact Info) Description 11/30/2024 9:30 AM EDT Office [facility], [facility] [place] [address] Teddy Mullen CRNP [address] [place] [address] 12/03/2024 8:10 AM EDT Laboratory Laboratory Patient Service [address] [phone] [place], [facility] [address] [place] [address] 12/06/2024 8:40 AM EDT Office Visit Family Practice [address] [place] [address] [place] [address] Javy Moscoso DO [address] [address] 02/15/2025 10:00 AM EDT Office Visit Sleep Disorders Ctr [facility] [address] [place] [phone] Debby Cornejo, DO [address] [place] [address] 03/04/2025 8:20 AM EDT Laboratory Laboratory [facility] [phone] [address] 03/14/2025 9:00 AM EDT Office Visit Hematology/Oncology [facility] [place] [address] [place] [address] [facility]att [facility]ullen [facility] [address] 04/10/2025 10:40 AM EDT Office Visit Nephrology, [facility] 200 [facility] [place] [address] Augusto Lerner MD [address] [place] [address] Scheduled Procedures Name Priority Associated Diagnoses Date/Ti [...] 1 , 06/16/2023 CKD HGB USE SMARTSET 50255 11/01/202511/01, 11/01/2024, 09/14/2024, Additional history exists CKD PHOS USE SMARTSET 39407 11/01/2025 030 01/2025, 05/05/2023, 02/02/2023, Additional history exists DTap/Tdap [...] Power of Attor kwabena? No Care Teams Spinner Box Relationship Specialty Start Date End Date Javy Moscoso DO [address] [place] [address] PCP - General Family Medicine 07/04/23 documented as of this encounter
[2024-11-03] MEDS: GABAPENTIN 600 MG TAB PO SCH (12:25)
[2024-11-03] MEDS: INSULIN ASPART PER UNIT CHARGE SC SCH (12:25)
[2024-11-03 13:13] LABS: Hematocrit (blood only) 26.1 % (42.0-52.0)
[2024-11-03] MEDS ORDERED: SODIUM CHLORIDE 0.9% 50 ML IV PRN (13:48)
[2024-11-03] MEDS ORDERED: SODIUM CHLORIDE 0.9% 100 ML IV PRN (13:48)
--- NOTE | 2024-11-03 14:48 | Hospitalist Progress Note ---
Date of Service November 03, 2024 Assessment & Plan (1) Symptomatic anemia: Plan 74-year-old male with PMH DM II, CKD III, chronic iron deficiency anemia, small bowel AVMs, PSVT, CAD, HLD presented to ER with c/o SOB worse with exertion, dizziness x 1 week. Symptomatic anemia GI bleed History colonic AVM Acute on chronic anemia History Iron deficiency anemia Admitting Hgb: 8.0. Was 8.5 on 11/01/24 and Hgb: 14 on 09/14/2024 05/03/2024 colonoscopy: Diverticulosis in sigmoid colon, polyps in ascending colon and sigmoid colon were resected. Internal hemorrhoids 05/03/2024: Small bowel enteroscopy: Normal esophagus. Congestive gastropathy. B iopsied. Normal duodenal bulb. Examined portion of jejunum was normal s/p 1 unit PRBC, pt reported improvement in his BEARDEN, palpitations and weakness in AM Hb again dropped to 8.0 in the afternoon, will order 1 unit prbc, will have pt overnight to ensure HnH stability. GI evaled, c/w home iron and octreotide, f/u w/ OP GI for possible repeat capsule study. Monitor HnH closely, c/w IV PPI for now. Continue home octreotide NPO midnight in case he continues to drop Hb. DM type 2 (diabetes mellitus, type 2): A1c: 6.9 on 08/03/25 Will hold patient's home metformin, Jardiance, insulin, GLP-1. SSI while inpatient. CKD (chronic kidney disease) stage 3, GFR 30-59 ml/min: Cr: 1.8. Was 2.0 on 11/01/24 and 1.8 on 09/14/2024. Monitor renal functions HTN (hypertension): c/t hold home losartan, torsemide and reassess tomorrow. Continue carvedilol with holding parameters Hyperlipidemia: Continue atorvastatin GUS (obstructive sleep apnea): CPAP HS DVT Prophylaxis: SCDs Full Code Follows with Dr Moscoso for routine care Admission and Anticipated Discharge Date Admission Date: November 02, 2024 Subjective Patient was seen and examined at bedside. Patient was lying in bed, on room air, NAD, resting comfortably. Patient reports improvement in his weakness/palpitation/shortness of breath with exertion. Patient denies any further bowel movements in the hospital, reports eating okay. Patient denies any abdominal pain. Physical Exam Physical Exam: General: no acute distress, WDWN Head: normocephalic, atraumatic Eyes: conjunctiva non-injected, anicteric ENT: normal inspection external ears, nose, mucous membranes moist Neck: supple, trachea midline Lungs: clear, no respiratory distress, no wheezing/rhonchi/rales CV: RRR, no murmur, no pretibial edema Abd: normal BS, soft, non-tender Ext: no cyanosis, no calf tenderness Neuro: A&O x 3, no focal deficits noted, normal affect Skin: warm, dry Results & Data Results & Data Vital Signs (Past 12 Hours) Vital Signs Temp Pulse Pulse Resp BP Pulse Ox O2 Del Method 11/03/24 12:00 Room Air 11/03/24 11:30 36.7 C 98 H 18 125/79 97 Room Air 11/03/24 08:02 36.6 C 88 22 115/72 96 Room Air 11/03/24 07:17 96 H 11/03/24 03:20 36.5 C 84 20 105/76 92 Room Air
[2024-11-03 19:42] LABS: Hematocrit (blood only) 27.7 % (42.0-52.0); Hemoglobin 8.8 g/dl (14.0-18.0)
--- NOTE | 2024-11-03 22:58 | Electrocardiogram Report ---
Test Reason : Blood Pressure : */* mmHG Vent. Rate : 77 BPM Atrial Rate : 79 BPM P-R Int : 142 ms QRS Dur : 88 ms QT Int : 398 ms P-R-T Axes : 66 48 62 degrees QTcB Int : 450 ms Normal sinus rhythm Normal ECG When compared with ECG of 26-Feb-2024 06:39, No significant change was found Confirmed by Luis Austin ([id number]) on 11/03/2024 10:58:22 PM Referred By: REFERRED SELF Confirmed By: Luis Austin
[2024-11-04 07:19] LABS: Hematocrit (blood only) 28.6 % (42.0-52.0); Mean Corpuscular Hemoglobin 30.9 pg (25.0-34.0); Mean Corpuscular Hgb Conc 31.5 g/dL (32.0-36.0); Mean Corpuscular Volume 98.3 fL (80.0-100.0); Mean Platelet Volume 12.4 fL (9.4-12.4); Platelet Count 165 K/uL (130-400); RDW Coefficient of Variation 18.1 % (11.5-14.5); RDW Standard Deviation 61.2 fL (36.4-46.3); Red Blood Count 2.91 M/uL (4.70-6.10); White Blood Count 5.77 K/ul (4.8-10.8)
[2024-11-04 07:22] LABS: BUN Creatinine Ratio 22.1 (10-20); Calcium 8.1 mg/dl (8.6-10.3); Creatinine Clr Calc Pharmacy 52.5 ml/min; Potassium 4.5 mmol/L (3.5-5.1)
[2024-11-04 08:02] VITALS: TEMP 97.9
[2024-11-04] MEDS: CYANOCOBALAMIN (B-12) 2,500 MCG TABLET SL SCH (09:03)
[2024-11-04] MEDS: ATORVASTATIN 40 MG TAB PO SCH (09:03)
[2024-11-04 12:00] VITALS: BP 123/69; RESP 16; O2SAT 94
[2024-11-04 13:04] LABS: Hematocrit (blood only) 30.1 % (42.0-52.0); Hemoglobin 9.3 g/dl (14.0-18.0)
--- NOTE | 2024-11-04 13:38 | Discharge Summary ---
Date of Service November 04, 2024 Admission HPI Per Admitting Provider Patient is 74-year-old male with PMH DM II, CKD III, chronic iron deficiency anemia, small bowel AVMs, PSVT, CAD, HLD presented to ER with c/o SOB, worse with exertion, dizziness x 1 week. Per outpatient chart review patient seen at PCPs office yesterday 11/01/2024 with complaint of shortness of breath, dizziness, palpitations, black stools. On 11/01/24 had Hgb: 8.5 (Was 14 on 09/14/2024). Patient states has chronic black stools. Follows with [facility] and is on ferrous sulfate, octreotide twice daily. Last scopes were in 04/2024. Patient states was getting every 6 months but was suggested to do yearly since he was doing well. States last IV iron was couple of months ago. Denies fever/chills, diaphoresis, N/V/D/C, ESPINOZA, syncope, vision changes, neck pain, cough, sore throat, rhinorrhea, abdominal pain, paresthesias, extremity weakness, extremity edema, rashes, urinary symptoms. Admission Exam Per Admitting Provider General: no acute distress, WDWN Head: normocephalic, atraumatic Eyes: pale conjunctiva non-injected, anicteric ENT: normal inspection external ears, nose, mucous membranes moist Neck: supple, trachea midline Lungs: clear, no respiratory distress, no wheezing/rhonchi/rales CV: RRR, no murmur, no pretibial edema Abd: normal BS, soft, non-tender Ext: no cyanosis, no calf tenderness Neuro: A&O x 3, no focal deficits noted, normal affect Skin: warm, dry Principal Diagnosis Symptomatic anemia GI bleed History colonic AVM Acute on chronic anemia History Iron deficiency anemia Discharge Exam General: no acute distress, WDWN Head: normocephalic, atraumatic Eyes: conjunctiva non-injected, anicteric ENT: normal inspection external ears, nose, mucous membranes moist Neck: supple, trachea midline Lungs: clear, no respiratory distress, no wheezing/rhonchi/rales CV: RRR, no murmur, no pretibial edema Abd: normal BS, soft, non-tender Ext: no cyanosis, no calf tenderness Neuro: A&O x 3, no focal deficits noted, normal affect Skin: warm, dry Discharge Data Allergies Allergy/AdvReac Type Severity Reaction Status Date / Time lisinopril AdvReac Severe ARNOLDO, Verified 11/02/24 18:58 hyperkalemia, ARF - PT DENIES verapamil AdvReac Severe "SHUT HIS Verified 11/02/24 18:58 HEART DOWN" Consultations 11/02/24 18:20 ED Decision to Admit Stat 11/02/24 21:03 Consult Gastroenterology Routine Hospital Course (1) Symptomatic anemia: Plan 74-year-old male with PMH DM II, CKD III, chronic iron deficiency anemia, small bowel AVMs, PSVT, CAD, HLD presented to ER with c/o SOB worse with exertion, dizziness x 1 week. He was managed for the following: Symptomatic anemia GI bleed History colonic AVM Acute on chronic anemia History Iron deficiency anemia Admitting Hgb: 8.0. Was 8.5 on 11/01/24 and Hgb: 14 on 09/14/2024 05/03/2024 colonoscopy: Diverticulosis in sigmoid colon, polyps in ascending colon and sigmoid colon were resected. Internal hemorrhoids 05/03/2024: Small bowel enteroscopy: Normal esophagus. Congestive gastropathy. Biopsied. Normal duodenal bulb. Examined portion of jejunum was normal s/p 2 unit PRBC, pt reported improvement in his BEARDEN, palpitations and weakness in AM. Hemoglobin stable/ slowly increasing since last evening. GI evaled, c/w home iron and octreotide, f/u w/ OP GI for possible repeat capsule study. Patient and his advised to closely follow-up with PCP for repeat Hb monitoring in 3 to 5 days time, also advised to follow-up with GI in 1 to 2 weeks time upon discharge. DM type 2 (diabetes mellitus, type 2): A1c: 6.9 on 08/03/25 Will hold patient's home metformin, Jardiance, insulin, GLP-1. SSI while inpatient. CKD (chronic kidney disease) stage 3, GFR 30-59 ml/min: Cr: 1.8. Was 2.0 on 11/01/24 and 1.8 on 09/14/2024. Monitor renal functions HTN (hypertension): c/t hold home losartan, torsemide and reassess tomorrow. Continue carvedilol with holding parameters Hyperlipidemia: Continue atorvastatin GUS (obstructive sleep apnea): CPAP HS DVT Prophylaxis: SCDs Full Code Follows with Dr Moscoso for routine care Patient's was given a phone call for general update and following instructions were provided over the phone. Patient is being discharged to home with following instructions at the point of discharge: Follow-up with your primary care physician within a week time and likely you will need labs CBC/CMP/magnesium/phosphorus. Your pantoprazole will be increased to twice a day. Recommend that you follow-up with your GI doctor in 1 to 2 weeks time for further evaluation/possible capsule endoscopy. GI doctor evaluated you while inpatient, continue your prior to arrival iron and octreotide and they recommend that you will likely need capsule endoscopy as an outpatient with your OP GI office. Take your medications as prescribed. Please make sure that you are able to get your medications today by calling your pharmacy before you leave the hospital so that your treatment continuity is not broken. Home Health Attestation I certify that this patient is under my care and that I, or a physicians title i instructional assistant working with me, had a face to-face encounter that meets the home health utuo-wa-love encounter requirements with this patient. The encounter with the patient was in whole, or in part, for the following medical condition, which is the primary reason for home health care (list medical condition): I certify that, based on my findings, the following services are medically necessary home health services: My clinical findings support the need for the above services because: Further, I certify that my clinical findings support that this patient is homebound (i.e. absences from home require considerable and taxing effort and are for medical reasons or cheondoism services or infrequently or of short duration when for other reasons) because: Certification for Home Health Services: Based on the above findings, I certify that this patient is confined to the home and needs intermittent detention care, physical therapy and/or speech therapy or continues to need occupational therapy. The patient is under my care, and I have initiated the establishment of the plan of care. This patient will be followed by a physician who will periodically review the plan of care. Total Time Total Time Spent Total Time Spent (In Minutes): 35 Discharge Plan Discharge Items Patient Disposition: Home - Self-Care Reason For Visit: ANEMIA Discharge Diagnosis: Symptomatic anemia GI bleed History colonic AVM Acute on chronic anemia History Iron deficiency anemia Activity: Resume your previous activity Non-emergency contact: Primary Care Provider Call non-emergency contact if: you have any medication questions and your symptoms worsen Follow-up/Referrals: Javy Moscoso DO [Primary Care Provider] - Diet: Heart Healthy Addtl Attending Provider Instructions: Follow-up with your primary care physician within a week time and likely you will need labs CBC/CMP/magnesium/phosphorus. Your pantoprazole will be increased to twice a day. Recommend that you follow-up with your GI doctor in 1 to 2 weeks time for further evaluation/possible capsule endoscopy. GI doctor evaluated you while inpatient, continue your prior to arrival iron and octreotide and they recommend that you will likely need capsule endoscopy as an outpatient with your OP GI office. Take your medications as prescribed. Please make sure that you are able to get your medications today by calling your pharmacy before you leave the hospital so that your treatment continuity is not broken. Pending Studies at Discharge: No Stand-Alone Forms: [email or web address], Smoking Cessation Medications and DC Order Prescriptions: Continued torsemide 20 mg Tablet 20 mg PO QAM acetaminophen 500 mg tablet 500 - 1,000 mg PO Q6 PRN (Reason: pain/fevers) losartan 100 mg Tablet 100 mg PO QAM gabapentin 600 mg Tablet 600 mg PO BID Rx Instructions: TAKES AT NOON & HS tizanidine 2 mg tablet 2 mg PO HS Rx Instructions: PER EXT MED HX--MAY TAKE BID IF NEEDED. PER PT "USUALLY TAKE AT HS". gabapentin 300 mg capsule 300 mg PO QAM Xultophy 100/3.6 100 unit-3.6 mg /mL (3 mL) insulin pen 40 unit SUBCUT QPM octreotide acetate 50 mcg/mL (1 mL) syringe 50 mcg subcut BID atorvastatin 40 mg tablet 40 mg PO QAM cyanocobalamin (vitamin B-12) [Vitamin B-12] 2,500 mcg Tablet, Sublingual 2,500 mcg SUBLINGUAL DAILY Rx Instructions: Unable to verify OTC meds at this date/time. triamcinolone acetonide 0.5 % cream 1 applic TOPICAL DIRECTED PRN (Reason: Flare) fluticasone propionate 50 mcg/actuation spray,suspension 2 spray INTRANASAL QAM metformin 500 mg tablet extended release 24 hr 500 mg PO HS Jardiance 25 mg tablet 25 mg PO QAM carvedilol 25 mg Tablet 12.5 mg PO BID Qty: 0 0RF ferrous sulfate 325 mg (65 mg iron) tablet 325 mg PO BID Qty: 60 1RF Rx Instructions: Unable to verify OTC meds at this date/time. Changed pantoprazole 40 mg tablet,delayed release (DR/EC) 40 mg PO BID Qty: 60 0RF Discharge Orders: Discharge Order (Routine); Ordered 11/04/24 Ordered By: Karthikeyan Rubi Admission Data Admit Date/Time: 11/02/24 18:47 Attending Provider: Karthikeyan Rubi Admit Provider: Da Rider Primary Care Provider: Javy Moscoso Other Providers: Da Rider; Gary Fernandes I
[2024-11-04] MEDS: TORSEMIDE 20 MG TAB PO SCH (13:51)
[2024-11-04 14:32] VITALS: PULSE 73
== END 2024-11-04 15:39 | disposition home or self-care (01) | DRG 809 ==
LOC: ED 16:33 → SUATTDRO 18:47 → 2W 18:47 → UNDODISIN 11-04 14:32